=== PATIENT | female | born 1960 | race Caucasian/White ===

== ENCOUNTER 2023-04-11 08:51 | Outpatient (OUT) | payer OTHER, SELFPAY ==
--- NOTE | 2023-04-11 09:05 | MM_ITS ---
Patient Name: KATHY PORTER MR#: [id number] : 1960 Exam Date: 04/11/2023 Ordering Doctor: DR Peter Arnett . RADIOLOGY REPORT PROCEDURE: MM TOMOSYNTHESIS SCREENING BI COMPARISON: MG MAMM SHUKRI DIAG FU, 10/01/2017. MG MAMM SCREEN SHUKRI W CAD, 09/21/2017. INDICATIONS: screening Calculator Name NCI Breast Cancer Risk Assessment Tool 5 Year Breast Cancer Risk 2.20% Lifetime Breast Cancer Risk 10.90% Personal Breast Cancer No Personal Ovarian Cancer No Treatments None Family Cancers Aunt-maternal with breast cancer at age ~48. LOCATION: [facility] BREAST COMPOSITION: Heterogeneously dense,which may obscure small masses. FINDINGS: DIAGNOSTIC CATEGORY 2--BENIGN FINDING: RIGHT BREAST: No significant suspicious finding. Scattered benign-appearing calcifications are present. No significant change has occurred. LEFT BREAST: No significant suspicious finding. Scattered benign-appearing calcifications are present. No significant change has occurred. RECOMMENDATIONS: ROUTINE MAMMOGRAM AND CLINICAL EVALUATION IN 12 MONTHS. PLEASE NOTE: A NORMAL MAMMOGRAM DOES NOT EXCLUDE THE POSSIBILITY OF BREAST CANCER. A CLINICALLY SUSPICIOUS PALPABLE LUMP SHOULD BE BIOPSIED. Dictated by: Kev Aquino M.D. on 04/11/2023 at 15:36 Approved by: Kev Aquino M.D. on 04/11/2023 at 15:39
[2023-04-11 09:24] LABS: Estimated Average Glucose 108 mg/dL; Glycohemoglobin A1C 5.4 % (4.5-6.2)
[2023-04-11 09:42] LABS: Basophils Absolute Auto 0.1 10^3/uL (0.0-0.1); Basophils Percent Auto 0.9 % (0.2-2.0); Eosinophils Absolute Auto 0.2 10^3/uL (0.0-0.7); Eosinophils Percent Auto 1.7 % (0.9-7.0); Hematocrit 38.6 % (36.0-48.0); Hemoglobin 12.5 g/dL (12.0-16.0); Immature Granulocytes Abs Auto 0.03 10^3/uL (0.00-0.03); Immature Granulocytes Pct Auto 0.3 % (0.0-0.5); Lymphocytes Absolute Auto 2.1 10^3/uL (1.2-3.8); Mean Corpuscular HGB Conc 32.4 g/dL (29.9-35.2); Mean Corpuscular Hemoglobin 29.2 pg (26.7-34.0); Mean Corpuscular Volume 90.2 fL (81.0-99.0); Mean Platelet Volume 11.2 fL (9.5-13.5); Monocytes Absolute Auto 0.5 10^3/uL (0.3-0.8); Monocytes Percent Auto 5.5 % (1.7-12.0); Neutrophils Absolute Auto 6.6 10^3/uL (1.4-6.5); Neutrophils Percent Auto 69.6 % (43.0-75.0); Platelet Count 270 10^3/uL (150-450); Red Blood Count 4.28 10^6/uL (4.20-5.40); Red Cell Distribution Width 14.3 % (11.0-15.0); White Blood Count 9.5 10^3/uL (4.0-11.0)
[2023-04-11 10:07] LABS: Alanine Aminotransferase 17 U/L (14-59); Albumin Globulin Ratio 0.9; Albumin Level 3.4 g/dL (3.4-5.0); Alkaline Phosphatase 74 U/L (46-116); Anion Gap 11.1; Aspartate Amino Transferase 13 U/L (15-37); BUN Creatinine Ratio 9.6; Bilirubin Total 0.7 mg/dL (0.2-1.0); Calcium 9.3 mg/dL (8.5-10.1); Carbon Dioxide 29.8 mmol/L (21.0-32.0); Chloride 103 mmol/L (98-107); Chol HDL Ratio 3.5; Cholesterol 184 mg/dL (<=200); Estimated GFR (African America 33 (>=60); Estimated GFR (Non-African Ame 27 (>=60); Free T3 2.36 pg/mL (2.18-3.98); Globulin 3.7 g/dL; Glucose 117 mg/dL (74-106); HDL Cholesterol 53 mg/dL (40-60); Potassium 3.9 mmol/L (3.5-5.1); Sodium 140 mmol/L (136-145); Thyroid Stimulating Hormone 4.496 uIU/mL (0.358-3.740); Total Protein 7.1 g/dL (6.4-8.2); Triglycerides 120 mg/dL (<=150)
== END 2023-04-11 08:52 | disposition home or self-care (01) ==
LOC: MAMMO 08:51
PROVIDERS: PCP Family Medicine; Visit Provider Family Medicine
DX: Z00.00 Encounter for general adult medical examination without abnormal findings (principal); E78.5 Hyperlipidemia, unspecified; R73.09 Other abnormal glucose; Z12.12 Encounter for screening for malignant neoplasm of rectum; D64.9 Anemia, unspecified; E55.9 Vitamin D deficiency, unspecified; Z80.3 Family history of malignant neoplasm of breast
CPT/HCPCS: 36415; 77063; 77067; 80053; 80061; 82306; 83036; 83540; 84436; 84443; 84481; 85025

== ENCOUNTER 2023-05-02 10:05 | Outpatient (OUT) | payer OTHER, SELFPAY ==
--- OUTSIDE RECORDS SUMMARY | 2023-05-02 10:28 | XMS_ITS | CCD ---
Author Name Unknown Address [address] [facility] [address] [place] [address] Organization [facility] Care Team Providers Care Data Power Consultant Name Role Phone Vicky Arnett Primary Care Provider DO Justin Francisco Emergency Provider MD Vicky Arnett Primary Care Provider [phone] MD Henry Burnett Admit Provider [phone] MD Henry Burnett Attending Provider MD Graham Helm Other Provider DR VICKY ARNETT Admitting Unavailable DR VICKY ARNETT Attending Unavailable DR VICKY ARNETT Primary Care Unavailable DR VICKY ARNETT Consulting Unavailable GEHLOT, UPENDER Admitting Unavailable GEHLOT, UPENDER Attending Unavailable DR VICKY ARNETT Primary Care Unavailable GEHLOT, UPENDER Consulting Unavailable GEHLOT, UPENDER Admitting Unavailable GEHLOT, UPENDER Attending Unavailable DR VICKY ARNETT Primary Care Unavailable GEHLOT, UPENDER Consulting Unavailable DR VICKY ARNETT Admitting Unavailable DR VICKY ARNETT Attending Unavailable DR VICKY ARNETT Primary Care Unavailable DR VICKY ARNETT Consulting Unavailable DR DANII CARTER V Consulting Unavailable Vicky Arnett MD Primary Care Provider Vicky Arnett Primary Care Unavailable Henry Burnett Attending Unavailable Henry Burnett Admitting Unavailable Graham Helm Consulting Unavailable GEHLOT, UPENDER Attending Unavailable VICKY ARNETT Primary Care Unavailable GEHLOT, UPENDER Attending Unavailable VICKY ARNETT Primary Care Unavailable GEHLOT, UPENDER Attending Unavailable VICKY ARNETT Primary Care Unavailable GEHLOT, UPENDER Attending Unavailable VICKY ARNETT Primary Care Unavailable VICKY ARNETT Primary Care Unavailable BURAKNELLIE Attending Unavailable ESVIN, SCOTT Attending Unavailable VICKY ARNETT Primary Care Unavailable VICKY ARNETT Primary Care Unavailable ESVIN UPENDER Attending Unavailable Allergies Allergy Classification Reported Allergen(s) Allergy Type Date of Onset Reaction(s) Facility Sulfonamides (antibiotic) (3 sources) Sulfonamides (Antibiotic) Drug Allergy 2 Rash, Swelling [facility] (16 sources) Sulfonamides (Antibiotic); Translations: [Sulfa (Sulfonamide Antibiotics)] Propensity to adverse reactions to drug 2 Rash, Swelling [facility] (1 source) Sulfonamides (Antibiotic) Drug allergy (disorder) 3 [facility] Repository Medications Current Medications Medication Drug Class(es) Dates Sig (Normalized) Sig (Original) amLODIPine 10 mg oral tablet (17 sources) Dihydropyridine Calcium Channel Dimple Start: 03-21-2020 take 1 tablet by mouth once daily amLODIPine (NORVASC) 10 MG tablet Take 1 (one) tablet (10 mg total) by mouth nightly . 0 03/21/2020 Active cefuroxime 250 mg oral tablet (1 source) Cephalosporin Antibacterial Start: 01-05-2022 take 250 mg by mouth twice daily Cefuroxime Axetil Active 250 MG PO Twice daily 01 04January 05, 2022 12:00am cholecalciferol 0.025 mg oral capsule (10 sources) Vitamin D Start: 01-03-2022 End: 01-03-2022 take 1 capsule by mouth once daily Cholecalciferol (Vitamin D3) (Vitamin D3) 25 mcg (1,000 unit) Capsule Active 25 MCG PO Daily January 03, 2022 12:00am Start: 03-23-2021 cholecalcifero l, vitamin D3, 50 mcg (2,000 unit) cap doxazosin 2 mg oral tablet (17 sources) alpha-Adrenergic Dimple Start: 02-08-2020 take 1 tablet by mouth twice daily doxazosin (CARDURA) 2 MG tablet Take 1 (one) tablet (2 mg total) by mouth 2 (two) times a day . 0 02/08/2020 Active eluxadoline 100 mg oral tablet (17 sources) mu-Opioid Receptor Agonist Start: 01-03-2022 take 1 tablet by mouth at mealtime Eluxadoline (Viberzi) 100 mg Tablet Active 100 MG PO Bedtime January 03, 2022 12:00am must administer with a meal/food hydrALAZINE hydrochloride 25 mg oral tablet (1 source) Arteriolar Vasodilator Start: 01-05-2022 take 25 mg by mouth three times daily Hydralazine Active 25 MG PO Three times daily 90 30 January 05, 2022 12:00am irbesartan 300 mg oral tablet (17 sources) Angiotensin 2 Receptor Dimple Start: 02-05-2020 take 1 tablet by mouth once daily irbesartan (AVAPRO) 300 MG tablet Take 1 (one) tablet (300 mg total) by mouth daily . 0 02/05/2020 Active metFORMIN hydrochloride 1000 mg oral tablet (17 sources) Biguanide Start: 01-26-2016 take 1 tablet by mouth twice daily at mealtime metFORMIN (GLUCOPHAGE) 1000 MG tablet Take 1 (one) tablet (1,000 mg total) by mouth 2 (two) times a day with meals . 0 01/26/2016 Active metoprolol tartrate 100 mg oral tablet (17 sources) beta-Adrenergic Dimple Start: 01-03-2022 take 100 mg by mouth every twelve hours Metoprolol Tartrate Active 100 MG PO Q12H January 03, 2022 12:00am Start: 02-06-2020 take [address] by [address]ne th twice daily metoprolol tartrate (LOPRESSOR) 100 MG tablet Take 1 (one) tablet (100 mg total) by mouth 2 (two) times a day . 0 02/06/2020 Active OLANZapine 15 mg oral tablet (8 sources) Atypical Antipsychotic Start: 05-30-2022 take 1 tablet by mouth once daily OLANZapine (ZYPREXA) 15 MG tablet Take 1 (one) tablet (15 mg total) by mouth nightly . 90 tablet 3 05/30/2022 Active Start: 02-28-2022 End: 06-09-2022 take 1 tablet by mouth once daily OLANZapine (ZYPREXA) 10 MG tablet Take 1 (one) tablet (10 mg total) by mouth nightly . 30 tablet 0 05/10/2022 05/30/2022 Discontinued (Reorder (Suppress CancelRx Message to Pharmacy)) Start: 02-02-2022 End: 02-28-2022 take 1 tablet by mouth once daily OLANZapine (ZYPREXA) 5 MG tablet Take 1 (one) tablet (5 mg total) by mouth nightly . 30 tablet 0 02/02/2022 02/28/2022 Discontinued (Reorder (Suppress CancelRx Message to Pharmacy)) oxybutynin chloride 5 mg oral tablet (17 sources) Cholinergic Muscarinic Antagonist Start: 03-16-2020 End: 01-05-2022 take 1 tablet by mouth three times daily oxybutynin (DITROPAN) 5 MG tablet Take 1 (one) tablet (5 mg total) by mouth 3 (three) times a day . 0 03/16/2020 Active pantoprazole 40 mg delayed release oral tablet (17 sources) Proton Pump Inhibitor Start: 01-26-2016 take 1 tablet by mouth once daily pantoprazole (PROTONIX) 40 MG tablet Take 1 (one) tablet (40 mg total) by mouth once daily . 0 01/26/2016 Active simvastatin 10 mg oral tablet (17 sources) HMG-CoA Reductase Inhibitor Start: 01-25-2020 take 1 tablet by mouth once daily simvastatin (ZOCOR) 10 MG tablet Take 1 (one) tablet (10 mg total) by mouth nightly . 0 01/25/2020 Active SUMAtriptan 100 mg oral tablet (9 sources) Serotonin-1b and Serotonin-1d Receptor Agonist Start: 11-25-2020 SUMAtriptan (IMITREX) 100 MG tablet PRN per . 0 11/25/2020 Active Start: 11-25-2020 SUMAtriptan (I MITREX) 100 MG tablet divalproex sodium 500 mg delayed release oral tablet (3 sources) Mood Stabilizer, Anti-epileptic Agent Start: 01-03-2022 take 1 tablet by mouth once daily Divalproex (Depakote) 500 mg Tablet,Delayed Release (Dr/Ec) Active 500 MG PO Daily before supper January 03, 2022 12:00am Start: 10-14-2021 take 1 tablet by wayne th once daily divalproex (DEPAKOTE ER) 500 MG 24 hr tablet Take 1 (one) tablet (500 mg total) by mouth daily . 90 tablet 0 10/14/2021 Active Completed/Discontinued Medications Medication Drug Class(es) Dates Sig (Normalized) Sig (Original) 24 hr buPROPion hydrochloride 300 mg extended release oral tablet (20 sources) Aminoketone Start: 01-03-2022 take 150 mg by mouth once daily after lunch Bupropion Hcl Active 150 MG PO Daily after lunch January 03, 2022 12:00am Start: 01-03-2021 End: 06-28-2022 take 1 tablet by mouth once daily in the morning buPROPion (WELLBUTRIN XL) 300 MG 24 hr tablet Take 1 (one) tablet (300 mg total) by mouth every morning . 90 tablet 0 03/30/2022 05/30/2022 Discontinued (Reorder (Suppress CancelRx Message to Pharmacy)) Start: 01-03-2021 End: 01-12-2022 take 1 tablet by mouth once daily buPROPion (WELLBUTRIN XL) 150 MG 24 hr tablet Take 1 (one) tablet (150 mg total) by mouth daily . 90 tablet 0 07/19/2021 10/14/2021 Discontinued (Reorder) Start: 04-06-2020 End: 12-23-2020 take 1 tablet by mouth once daily buPROPion (WELLBUTRIN XL) 150 MG 24 hr tablet Take 1 (one) tablet (150 mg total) by mouth daily . 90 tablet 0 09/24/2020 12/23/2020 Active Start: 04-06-2020 End: 12-23-2020 take 1 tablet by mouth once daily in the morning buPROPion (WELLBUTRIN XL) 300 MG 24 hr tablet Take 1 (one) tablet (300 mg total) by mouth every morning . 90 tablet 0 09/24/2020 12/23/2020 Active End: 04-06-2020 take 1 tablet by mouth once daily buPROPion (Wellbutrin SR) 150 MG 12 hr tablet Take 150 mg by mouth daily in the afternoon . 0 04/06/2020 Discontinued (Error) clonazePAM 0.5 mg oral tablet (20 sources) Benzodiazepine Start: 01-09-2022 End: 08-28-2022 take 1 tablet by mouth three times daily as needed for anxiety clonazePAM (KLONOPIN) 0.5 MG tablet Indications: Insomnia due to mental disorder , VICKIE (generalized anxiety disorder) Take 1 (one) tablet (0.5 mg total) by mouth 3 (three) times a day as needed for anxiety . 90 tablet 0 03/30/2022 05/30/2022 Discontinued (Reorder (Suppress CancelRx Message to Pharmacy)) Start: 01-03-2022 take 0.5 mg by mouth once daily 30 minutes before bedtime Clonazepam Active 0.5 MG PO Daily after lunch January 03, 2022 12:00am administer 30 minutes before bedtime Start: 01-03-2022 take 0.25 mg by mout h at bedtime Clonazepam Active 0.25 MG PO Bedtime January 03, 2022 12:00am Start: 10-14-2021 End: 01-12-2022 take 1 tablet by mouth twice daily as needed for anxiety clonazePAM (KLONOPIN) 0.5 MG tablet Indications: Insomnia due to mental disorder , VICKIE (generalized anxiety disorder) Take 1 (one) tablet (0.5 mg total) by mouth 2 (two) times a day as needed for anxiety . 180 tablet 0 10/14/2021 01/12/2022 Active Start: 04-18-2021 End: 10-17-2021 take 1 tablet by mouth three times daily as needed for anxiety clonazePAM (KLONOPIN) 0.5 MG tablet Indications: Insomnia due to mental disorder , VICKIE (generalized anxiety disorder) Take 1 (one) tablet (0.5 mg total) by mouth 3 (three) times a day NEEDED FOR ANXIETY . 270 tablet 0 07/19/2021 10/14/2021 Discontinued (Reorder) Start: 01-13-2020 End: 03-07-2021 take 1 tablet by mouth three times daily as needed for anxiety clonazePAM (KLONOPIN) 0.5 MG tablet Indications: Insomnia due to mental disorder , VICKIE (generalized anxiety disorder) Take 1 (one) tablet (0.5 mg total) by mouth 3 (three) times a day NEEDED FOR ANXIETY . 270 tablet 0 12/07/2020 Active risperiDONE 3 mg oral tablet (16 sources) Atypical Antipsychotic Start: 04-18-2021 End: 10-14-2021 take 1 tablet by mouth once daily at dinner risperiDONE (RISPERDAL) 3 MG tablet Take 1 (one) tablet (3 mg total) by mouth daily with dinner . 90 tablet 1 07/19/2021 10/14/2021 Discontinued Start: 01-03-2021 take 1 tablet by wayne th once daily at dinner risperiDONE (RISPERDAL) 3 MG tablet Take 1 (one) tablet (3 mg total) by mouth daily with dinner . 90 tablet 1 01/03/2021 Active Start: 03-01-2020 End: 09-24-2020 take 1 tablet by mouth once daily at dinner risperiDONE (RISPERDAL) 3 MG tablet Take 1 (one) tablet (3 mg total) by mouth daily with dinner . 90 tablet 1 09/24/2020 Active traZODone hydrochloride 100 mg oral tablet (20 sources) Serotonin Reuptake Inhibitor Start: 01-09-2022 End: 02-28-2022 traZODone (DESYREL) 100 MG tablet 1/2 to 1 tab daily hs sleep . 90 tablet 0 01/09/2022 02/28/2022 Discontinued Start: 01-03-2022 take 50 mg by mouth once daily at bedtime Trazodone Active 50 MG PO Daily at bedtime January 03, 2022 12:00am Start: 04-18-2021 End: 10-14-2021 traZODone (DESYREL) 100 MG t ablet 1/2 to 1 tab daily hs sleep . 90 tablet 0 10/14/2021 Active Start: 01-03-2021 traZODone (BENNETT YREL) 100 MG tablet 1/2 to 1 tab daily hs sleep . 90 tablet 0 01/03/2021 Active Start: 04-06-2020 End: 09-24-2020 traZODone (DESYREL) 100 MG t ablet 1/2 to 1 tab daily hs sleep . 90 tablet 0 09/24/2020 Active Start: 03-16-2020 End: 04-06-2020 take 0.5 tablet by mouth at bedtime traZODone (DESYREL) 100 MG tablet Take 100 mg by mouth at bedtime SHE TAKES 1/2 TABLET AT BEDTIME . 0 03/16/2020 04/06/2020 Discontinued (Reorder) zolpidem tartrate 5 mg oral tablet (19 sources) gamma-Aminobutyric Acid-ergic Agonist Start: 01-09-2022 End: 02-28-2022 take 1 tablet by mouth once daily as needed zolpidem (AMBIEN) 5 MG tablet Indications: Insomnia due to mental disorder Take 1 (one) tablet (5 mg total) by mouth nightly as needed . 90 tablet 0 01/09/2022 02/28/2022 Discontinued Start: 10-14-2021 take 1 tablet by wayne once daily as needed zolpidem (AMBIEN) 5 MG tablet Indications: Insomnia due to mental disorder Take 1 (one) tablet (5 mg total) by mouth nightly as needed . 90 tablet 0 10/14/2021 Active Start: 01-02-2020 End: 10-14-2021 take 1 tablet by mouth once daily as needed zolpidem (AMBIEN) 10 mg tablet Indications: Insomnia due to mental disorder Take 1 (one) tablet (10 mg total) by mouth nightly as needed . 90 tablet 0 07/19/2021 10/14/2021 Discontinued (Reorder) Problems Active Problems Problem Classification Problem Date Documented Da te Episodic/Chronic Anxiety disorders (20 sources) Generalized anxiety disorder; Translations: [Generalized anxiety disorder] Onset: 04-06-2020 04-06-2020 Chronic Hypertension with complications and secondary hypertension (3 sources) Hypertensive urgency ; Translations: [Hypertensive urgency] Onset: 01-03-2022 01-03-2022 Chronic Miscellaneous mental health disorders (20 sources) Insomnia disorder related to another mental disorder; Translations: [Insomnia due to other mental disorder] Onset: 04-06-2020 04-06-2020 Chronic Mood disorders (20 sources) Mild depressed bipolar I disorder; Translations: [Bipolar disorder, current episode depressed, mild] Onset: 04-06-2020 04-06-2020 Chronic Other hereditary and degenerative nervous system conditions (2 sources) Coarse tremor; Translations: [Other specified forms of tremor] 01-03-2022 Chronic Other hereditary and degenerative nervous system conditions (2 sources) Other specified forms of tremor; Translations: [Abnormal involuntary movements] 01-03-2022 Chronic Other nervous system disorders (2 sources) Disorder of brain; Translations: [Encephalopathy, unspecified] 01-03-2022 Chronic Other nervous system disorders (2 sources) Encephalopathy, unspecified; Translations: [Encephalopathy, unspecified] 01-03-2022 Chronic Residual codes; unclassified (2 sources) Altered mental status; Translations: [Altered mental status, unspecified] 01-03-2022 Episodic Residual codes; unclassified (2 sources) Altered mental status, unspecified; Translations: [Altered mental status] 01-03-2022 Episodic Spondylosis; intervertebral disc disorders; other back problems (1 source) Radiculopathy, lumbar region; Translations: [RADICULOPATHY LUMBAR REGION] Onset: 01-20-2022 Episodic Unclassified (1 source) Encephalopathy, unspecified; Translations: [Encephalopathy, unspecified] Onset: 01-03-2022 Past or Other Problems Problem Classification Problem Date Documented Da te Episodic/Chronic Acute and unspecified renal failure (3 sources) Injury of kidney; Translations: [Acute kidney failure, unspecified] Onset: 01-03-2022 01-03-2022 Episodic Urinary tract infections (3 sources) Urinary tract infectious disease; Translations: [Urinary tract infection, site not specified] Onset: 01-03-2022 01-03-2022 Episodic Results Test Name Value Interpretation Reference Range Facility XR LSPINE MIN 4 VIEWSon 01-01 XR LSPINE MIN 4 VIEWS EXAMINATION: XR LSPINE MIN 4 VIEWS HISTORY: Lumbar radiculopathy COMPARISON: No relevant comparison available. FINDINGS: BONES: 10% anterior superior wedge compression of L1. Mild degenerative spondylosis. Moderate to severe facet osteoarthropathy. DISC SPACES: Disc space narrowing L5-S1 PARASPINOUS: Negative. No paraspinous abnormality is seen. OTHER: Negative. IMPRESSION: Degenerative changes and levocurvature Electronically authenticated by: DANII CARTER Date: 2022-01-20 07:20 Normal [facility] DEPAKENE/VALPROICon 01-20-20 22 DEPAKENE 79.2 ug/ml Normal 50.0-100.0 [facility] Comment on above: Performed By: #### V ALP #### [facility] [address] [place] [address] Dr. Julio Goddard Albumin [Mass/volume] in Ser um or PlasmaOrdered By: Henry Burnett on 01-05-2022 Albumin [Mass/Vol] 3.0 g/dL 3.2-5.5 [facility] Basophils Auto (Bld) [#/Vol] Ordered By: Henry Burnett on 01-05-2022 Basophils (Bld) [#/Vol] 0.0 10*3/uL 0.0-0.2 [facility] Basophils/100 WBC Auto (Bld) Ordered By: Henry Burnett on 01-05-2022 Basophils/100 WBC (Bld) 0.6 % . F [facility] Blood hemoglobin measurement (mass/volume)Ordered By: Henry De Los Santosomar on 01-05-2022 Hemoglobin (Bld) [Mass/Vol] 12.8 g/dL 11.8-15.4 [facility] Blood leukocytes automated c ount (number/volume)Ordered By: Henry De Los Santosomar on 01-05-2022 WBC (Bld) [#/Vol] 5.3 10*3/uL 4.5-11.0 [facility] Complete Blood Count Auto Di ffon 01-05-2022 Basophils (Bld) [#/Vol] 0.0 10*3/uL Normal 0.0-0.2 [facility] Comment on above: Result Comment: PERF ORMED BY: [place] [address] PATHOLOGIST STERILE PROCESSING TECHNICIAN ANTONY ELIAS M.D. Performed By: #### C BC, CMP, PHOS, MG, LIPID #### [facility] [address] [place] [address] [place] Basophils/100 WBC (Bld) 0.6 % Normal . [facility] Comment on above: Performed By: #### C BC, CMP, PHOS, MG, LIPID #### [facility] [address] [place] [address] [place] Eosinophils (Bld) [#/Vol] 0.2 10*3/uL Normal 0.0-0.45 [facility] Comment on above: Performed By: #### C BC, CMP, PHOS, MG, LIPID #### [facility] [address] [place] [address] [place] Eosinophils/100 WBC (Bld) 3.5 % Normal . [facility] Comment on above: Performed By: #### C BC, CMP, PHOS, MG, LIPID #### [facility] [address] [place] [address] [place] Erythrocyte distribution width (RBC) [Ratio] 16.2 % High 11.9-15.3 [facility] Comment on above: Performed By: #### C BC, CMP, PHOS, MG, LIPID #### [facility] [address] Hematocrit (Bld) [Volume fraction] 38.6 % Normal 34.0-46.4 [facility] Comment on above: Performed By: #### C BC, CMP, PHOS, MG, LIPID #### [facility] [address] Hemoglobin (Bld) [Mass/Vol] 12.8 g/dL Normal 11.8-15.4 [facility] Comment on above: Performed By: #### C BC, CMP, PHOS, MG, LIPID #### [address] Lymphocytes (Bld) [#/Vol] 1.7 10*3/uL Normal 1.00-4.8 [facility] Comment on above: Performed By: #### C BC, CMP, PHOS, MG, LIPID #### [address] Lymphocytes/100 WBC (Bld) 33.1 % Normal . [facility] Comment on above: Performed By: #### C BC, CMP, PHOS, MG, LIPID #### [address] MCH (RBC) [Entitic mass] 30.2 pg Normal 24.7-34.3 [facility] Comment on above: Performed By: #### C BC, CMP, PHOS, MG, LIPID #### [address] MCV (RBC) [Entitic vol] 90.6 fL Normal 80-100 [facility] Comment on above: Performed By: #### C BC, CMP, PHOS, MG, LIPID #### [address] Mean Corpuscular HGB Conc 33.3 g/dL Normal 32.0-35.0 [facility] Comment on above: Performed By: #### C BC, CMP, PHOS, MG, LIPID #### [address] Monocytes (Bld) [#/Vol] 0.7 10*3/uL Normal 0.0-0.8 [facility] Comment on above: Performed By: #### C BC, CMP, PHOS, MG, LIPID #### [address] Monocytes/100 WBC (Bld) 12.5 % Normal . [facility] Comment on above: Performed By: #### C BC, CMP, PHOS, MG, LIPID #### [address] Neutrophils (Bld) [#/Vol] 2.6 10*3/uL Normal 1.8-7.7 [facility] Comment on above: Performed By: #### C BC, CMP, PHOS, MG, LIPID #### [address] Neutrophils/100 WBC (Bld) 50.3 % Normal . [facility] Comment on above: Performed By: #### C BC, CMP, PHOS, MG, LIPID #### [address] Nucleated RBC/100 WBC (Bld) [Ratio] 0.1 % Normal 0-0.5 [facility] Comment on above: Performed By: #### C BC, CMP, PHOS, MG, LIPID #### [address] Platelet mean volume (Bld) [Entitic vol] 8.9 fL Normal 6.3-10.7 [facility] Comment on above: Performed By: #### C BC, CMP, PHOS, MG, LIPID #### [address] Platelets (Bld) [#/Vol] 186 10*3/uL Normal 150-450 [facility] Comment on above: Performed By: #### C BC, CMP, PHOS, MG, LIPID #### [address] RBC (Bld) [#/Vol] 4.25 10*6/uL Normal 3.60-5.00 [facility] Comment on above: Performed By: #### C BC, CMP, PHOS, MG, LIPID #### [address] WBC (Bld) [#/Vol] 5.3 10*3/uL Normal 4.5-11.0 [facility] Comment on above: Performed By: #### C BC, CMP, PHOS, MG, LIPID #### [address] Comprehensive Metabolic Pane clarice 01-05-2022 Albumin [Mass/Vol] 3.0 g/dL Low 3.2-5.5 [facility] Comment on above: Performed By: #### C BC, CMP, PHOS, MG, LIPID #### [address] Albumin/Globulin [Mass ratio] 1.2 {ratio} Normal [facility] Comment on above: Performed By: #### C BC, CMP, PHOS, MG, LIPID #### [address] ALP [Catalytic activity/Vol] 33 U/L Normal 32-92 [facility] Comment on above: Performed By: #### C BC, CMP, PHOS, MG, LIPID #### [facility] [address] [place] [address] ALT [Catalytic activity/Vol] 11 U/L Normal 10-60 [facility] Comment on above: Performed By: #### C BC, CMP, PHOS, MG, LIPID #### [address] Anion gap [Moles/Vol] 11.6 mmol/L Normal 6.0-15.0 [facility] Comment on above: Performed By: #### C BC, CMP, PHOS, MG, LIPID #### [address] AST [Catalytic activity/Vol] 13 U/L Normal 10-42 [facility] Comment on above: Performed By: #### C BC, CMP, PHOS, MG, LIPID #### [facility] [address] Bilirubin [Mass/Vol] 0.4 mg/dL Normal 0.3-1.2 [facility] Comment on above: Performed By: #### C BC, CMP, PHOS, MG, LIPID #### [address] Calcium [Mass/Vol] 9.1 mg/dL Normal 8.2-10.2 [facility] Comment on above: Performed By: #### C BC, CMP, PHOS, MG, LIPID #### [address] Chloride [Moles/Vol] 105 mmol/L Normal 95-114 [facility] Comment on above: Performed By: #### C BC, CMP, PHOS, MG, LIPID #### [address] CO2 [Moles/Vol] 25.2 mmol/L Normal 22.0-30.0 [facility] Comment on above: Performed By: #### C BC, CMP, PHOS, MG, LIPID #### [address] Creatinine [Mass/Vol] 1.14 mg/dL High 0.44-1.03 [facility] Comment on above: Performed By: #### C BC, CMP, PHOS, MG, LIPID #### [place] [address] [place] Creatinine Clr Calc Pharmacy 51.[address] [facility] Comment on above: Result Comment: PERF ORMED BY: [place] [address] PATHOLOGIST STERILE PROCESSING TECHNICIAN ANTONY ELIAS M.D. Performed By: #### C BC, CMP, PHOS, MG, LIPID #### [address] [address] [place] Estimated GFR ( [place] 59 [facility] Comment on above: Result Comment: GFR estimated reference range: According to KDOQI guidelines, <60 ml/min/1.73m2 is sufficient to diagnose a patient with chronic kidney disease. Performed By: #### C BC, CMP, PHOS, MG, LIPID #### [facility] [address] Estimated GFR (Non- Am 49 [facility] Comment on above: Performed By: #### C BC, CMP, PHOS, MG, LIPID #### [facility] [address] Globulin (S) [Mass/Vol] 2.5 g/dL Normal [facility] Comment on above: Performed By: #### C BC, CMP, PHOS, MG, LIPID #### [facility] [address] Glucose [Mass/Vol] 96 mg/dL Normal 70-100 [facility] Comment on above: Result Comment: [facility] Glucose Reference Range is dependent on time and content of last meal. Glucose of more than 200 mg/dL in a nonstressed, ambulatory subject supports the diagnosis of Diabetes Mellitus. ADA recommended reference range Performed By: #### C BC, CMP, PHOS, MG, LIPID #### [facility] [address] Potassium [Moles/Vol] 3.8 mmol/L Normal 3.5-5.1 [facility] Comment on above: Performed By: #### C BC, CMP, PHOS, MG, LIPID #### [facility] [address] Protein [Mass/Vol] 5.5 g/dL Low 6.1-7.9 [facility] Comment on above: Performed By: #### C BC, CMP, PHOS, MG, LIPID #### [facility] [address] Sodium [Moles/Vol] 138 mmol/L Normal 136-146 [facility] Comment on above: Performed By: #### C BC, CMP, PHOS, MG, LIPID #### [facility] [address] [place] [address] [place] Urea nitrogen [Mass/Vol] 11 mg/dL Normal 9-23 [facility] Comment on above: Performed By: #### C BC, CMP, PHOS, MG, LIPID #### [facility] [address] [place] [id number] [facility] Creatinine and Glomerular fi ltration rate.predicted panel (S/P/Bld)Ordered By: Obsonjadanaga De Los Santosomar on 01-05-2022 Creatinine [Mass/Vol] 1.14 mg/dL 0.44-1.03 [facility] Eosinophils Auto (Bld) [#/Vo l]Ordered By: Obsonjadanaga De Los Santosomar on 01-05-2022 Eosinophils (Bld) [#/Vol] 0.2 10*3/uL 0.0-0.45 [facility] Eosinophils/100 WBC Auto (Bl d)Ordered By: Obsonjadanaga Lemonr on 01-05-2022 Eosinophils/100 WBC (Bld) 3.5 % . [facility] Erythrocyte distribution wid th Auto (RBC) [Ratio]Ordered By: Henry Lemonr on 01-05-2022 Erythrocyte distribution width (RBC) [Ratio] 16.2 % 11.9-15.3 [facility] Estimated glomerular filtrat ion rate (GFR) non- AmericanOrdered By: Felicitadanaga Lemonr on 01-05-2022 GFR/1.73 sq M.predicted among non-blacks MDRD (S/P/Bld) [Vol rate/Area] 49 mL/Min [facility] Globulin Calc (S) [Mass/Vol] Ordered By: Obdanny De Los Santosomar on 01-05-2022 Globulin (S) [Mass/Vol] 2.5 g/dL F [facility] Hematocrit Auto (Bld) [Volum e fraction]Ordered By: Henry Lemonr on 01-05-2022 Hematocrit (Bld) [Volume fraction] 38.6 % 34.0-46.4 [facility] Laboratory - Hematology and Cell countsOrdered By: Henry Burnett on 01-05-2022 Nucleated RBC/100 WBC (Bld) [Ratio] 0.1 % 0-0.5 [facility] Lymphocytes Auto (Bld) [#/Vo l]Ordered By: Obaydah Daromar on 01-05-2022 Lymphocytes (Bld) [#/Vol] 1.7 10*3/uL 1.00-4.8 [facility] Lymphocytes/100 WBC Auto (Bl d)Ordered By: Obaydah Daromar on 01-05-2022 Lymphocytes/100 WBC (Bld) 33.1 % . [facility] MCH Auto (RBC) [Entitic mass ]Ordered By: Obsonjadanaga De Los Santosomar on 01-05-2022 MCH (RBC) [Entitic mass] 30.2 pg 24.7-34.3 [facility] MCHC Auto (RBC) [Mass/Vol]Or dered By: Obaydah Daromar on 01-05-2022 MCHC (RBC) [Mass/Vol] 33.3 g/dL 32.0-35.0 Fir [facility] MCV Auto (RBC) [Entitic vol] Ordered By: Obaydah Daromar on 01-05-2022 MCV (RBC) [Entitic vol] 90.6 fL 80-100 F [facility] Monocytes Auto (Bld) [#/Vol] Ordered By: Obaydah Daromar on 01-05-2022 Monocytes (Bld) [#/Vol] 0.7 10*3/uL 0.0-0.8 [facility] Monocytes/100 WBC Auto (Bld) Ordered By: Obaydah Daromar on 01-05-2022 Monocytes/100 WBC (Bld) 12.5 % . F [facility] Neutrophils Auto (Bld) [#/Vo l]Ordered By: Obaydah Daromar on 01-05-2022 Neutrophils (Bld) [#/Vol] 2.6 10*3/uL 1.8-7.7 [facility] Neutrophils/100 WBC Auto (Bl d)Ordered By: Obsonjadah Daromar on 01-05-2022 Neutrophils/100 WBC (Bld) 50.3 % . [facility] No Panel InformationOrdered By: Henry Burnett on 01-05-2022 Estimated GFR () 59 mL/Min [facility] Comment on above: GFR estimated refere nce range: According to KDOQI guidelines, <60 ml/min/1.73m2 is sufficient to diagnose a patient with chronic kidney disease. Pharmacy Creatinine Clearance (Chem 51.99 [facility] Platelet mean volume Auto (B ld) [Entitic vol]Ordered By: Henry Burnett on 01-05-2022 Platelet mean volume (Bld) [Entitic vol] 8.9 fL 6.3-10.7 [facility] Platelets Auto (Bld) [#/Vol] Ordered By: Henry Burnett on 01-05-2022 Platelets (Bld) [#/Vol] 186 10*3/uL 150-450 [facility] Protein [Mass/volume] in Ser um or PlasmaOrdered By: Henry Burnett on 01-05-2022 Protein [Mass/Vol] 5.5 g/dL 6.1-7.9 [facility] RBC Auto (Bld) [#/Vol]Ordere d By: Henry Burnett on 01-05-2022 RBC (Bld) [#/Vol] 4.25 10*6/uL 3.60-5.00 [facility] Serum or plasma alanine angeles otransferase measurement without P-5'-P (enzymatic activiOrdered By: Henry Burnett on 01-05-2022 ALT No additional P-5'-P [Catalytic activity/Vol] 11 U/L 10-60 [facility] Serum or plasma albumin/glob ulin mass ratioOrdered By: Henry Burnett on 01-05-2022 Albumin/Globulin [Mass ratio] 1.2 {ratio} [facility] Serum or plasma alkaline flaquita sphatase measurement (enzymatic activity/volume)Ordered By: Henry Burnett on 01-05-2022 ALP [Catalytic activity/Vol] 33 U/L 32-92 [facility] Serum or plasma anion gap de terminationOrdered By: Henry Burnett on 01-05-2022 Anion gap [Moles/Vol] 11.6 mmol/L 6.0-15.0 [facility] Serum or plasma aspartate am inotransferase measurement (enzymatic activity/volume)Ordered By: Henry Burnett on 01-05-2022 AST [Catalytic activity/Vol] 13 U/L 10-42 [facility] Serum or plasma calcium sarah urement (mass/volume)Ordered By: Henry Burnett on 01-05-2022 Calcium [Mass/Vol] 9.1 mg/dL 8.2-10.2 [facility] Serum or plasma chloride deep surement (moles/volume)Ordered By: Henry Burnett on 01-05-2022 Chloride [Moles/Vol] 105 mmol/L 95-114 [facility] Serum or plasma glucose sarah urement (mass/volume)Ordered By: Henry Burnett on 01-05-2022 Glucose [Mass/Vol] 96 mg/dL 70-100 [facility] Comment on above: ADA recommended refe rence rangeRandom Glucose Reference Range is dependent on time and content of last meal. Glucose of more than 200 mg/dL in a nonstressed, ambulatory subject supports the diagnosis of Diabetes Mellitus. Serum or plasma potassium me asurement (moles/volume)Ordered By: Henry Burnett on 01-05-2022 Potassium [Moles/Vol] 3.8 mmol/L 3.5-5.1 [facility] Serum or plasma sodium measu rement (moles/volume)Ordered By: Henry Burnett on 01-05-2022 Sodium [Moles/Vol] 138 mmol/L 136-146 [facility] Serum or plasma total biliru bin measurement (mass/volume)Ordered By: Henry Burnett on 01-05-2022 Bilirubin [Mass/Vol] 0.4 mg/dL 0.3-1.2 [facility] Serum or plasma total carbon dioxide measurement (moles/volume)Ordered By: Henry Burnett on 01-05-2022 CO2 [Moles/Vol] 25.2 mmol/L 22.0-30.0 [facility] Serum or plasma urea nitroge n measurement (mass/volume)Ordered By: Henry Burnett on 01-05-2022 Urea nitrogen [Mass/Vol] 11 mg/dL 12-23 [facility] Urine culture routineOrdered By: Justin Francisco on 01-05-2022 Bacteria identified Cx Nom (U) Escherichia coli [facility] Cholesterol [Mass/volume] in Serum or PlasmaOrdered By: Henry Burnett on 01-04-2022 Cholesterol [Mass/Vol] 145 mg/dL 140-200 [facility] Comment on above: Chol less than 200 m g/dl low riskChol 201-239 mg/dl borderline riskChol 240 mg/dl and greater high risk Cholesterol in LDL Calc [Mas s/Vol]Ordered By: Henry Burnett on 01-04-2022 Cholesterol in LDL [Mass/Vol] 78 mg/dL 0-100 [facility] Comment on above: LDL ATP III CLASSIFI CATIONLDL less than 100 mg/dL OptimalLDL 100-129 mg/dL Near or above optimalLDL 130-159 mg/dL Borderline highLDL 160-189 mg/dL HighLDL greater than 189 mg/dL Very high Cholesterol in VLDL Calc [Ma ss/Vol]Ordered By: Henry Burnett on 01-04-2022 Cholesterol in VLDL [Mass/Vol] 12 mg/dL [facility] Complete Blood Count Auto Di ffon 01-04-2022 Basophils (Bld) [#/Vol] 0.0 10*3/uL Normal 0.0-0.2 [facility] Comment on above: Result Comment: PERF ORMED BY: [place] [address] PATHOLOGIST STERILE PROCESSING TECHNICIAN ANTONY ELIAS M.D. Performed By: #### C BC, CMP, PHOS, MG, LIPID #### [facility] [address] [place] [address] [place] Basophils/100 WBC (Bld) 0.8 % Normal . [facility] Comment on above: Performed By: #### C BC, CMP, PHOS, MG, LIPID #### [address] Eosinophils (Bld) [#/Vol] 0.2 10*3/uL Normal 0.0-0.45 [facility] Comment on above: Performed By: #### C BC, CMP, PHOS, MG, LIPID #### [address] Eosinophils/100 WBC (Bld) 4.2 % Normal . [facility] Comment on above: Performed By: #### C BC, CMP, PHOS, MG, LIPID #### [address] Erythrocyte distribution width (RBC) [Ratio] 15.8 % High 11.9-15.3 [facility] Comment on above: Performed By: #### C BC, CMP, PHOS, MG, LIPID #### [address] Hematocrit (Bld) [Volume fraction] 37.5 % Normal 34.0-46.4 [facility] Comment on above: Performed By: #### C BC, CMP, PHOS, MG, LIPID #### [address] Hemoglobin (Bld) [Mass/Vol] 12.3 g/dL Normal 11.8-15.4 [facility] Comment on above: Performed By: #### C BC, CMP, PHOS, MG, LIPID #### [address] Lymphocytes (Bld) [#/Vol] 1.6 10*3/uL Normal 1.00-4.8 [facility] Comment on above: Performed By: #### C BC, CMP, PHOS, MG, LIPID #### [address] Lymphocytes/100 WBC (Bld) 31.2 % Normal . [facility] Comment on above: Performed By: #### C BC, CMP, PHOS, MG, LIPID #### [address] MCH (RBC) [Entitic mass] 29.7 pg Normal 24.7-34.3 [facility] Comment on above: Performed By: #### C BC, CMP, PHOS, MG, LIPID #### [address] MCV (RBC) [Entitic vol] 90.5 fL Normal 80-100 F [facility] Comment on above: Performed By: #### C BC, CMP, PHOS, MG, LIPID #### [address] Mean Corpuscular HGB Conc 32.8 g/dL Normal 32.0-35.0 [facility] Comment on above: Performed By: #### C BC, CMP, PHOS, MG, LIPID #### [address] Monocytes (Bld) [#/Vol] 0.7 10*3/uL Normal 0.0-0.8 [facility] Comment on above: Performed By: #### C BC, CMP, PHOS, MG, LIPID #### [address] Monocytes/100 WBC (Bld) 13.1 % Normal . F [facility] Comment on above: Performed By: #### C BC, CMP, PHOS, MG, LIPID #### [address] Neutrophils (Bld) [#/Vol] 2.6 10*3/uL Normal 1.8-7.7 [facility] Comment on above: Performed By: #### C BC, CMP, PHOS, MG, LIPID #### [address] Neutrophils/100 WBC (Bld) 50.7 % Normal . [facility] Comment on above: Performed By: #### C BC, CMP, PHOS, MG, LIPID #### [address] Nucleated RBC/100 WBC (Bld) [Ratio] 0.1 % Normal 0-0.5 [facility] Comment on above: Performed By: #### C BC, CMP, PHOS, MG, LIPID #### [address] Platelet mean volume (Bld) [Entitic vol] 8.5 fL Normal 6.3-10.7 [facility] Comment on above: Performed By: #### C BC, CMP, PHOS, MG, LIPID #### [address] Platelets (Bld) [#/Vol] 190 10*3/uL Normal 150-450 [facility] Comment on above: Performed By: #### C BC, CMP, PHOS, MG, LIPID #### [address] RBC (Bld) [#/Vol] 4.15 10*6/uL Normal 3.60-5.00 [facility] Comment on above: Performed By: #### C BC, CMP, PHOS, MG, LIPID #### [address] WBC (Bld) [#/Vol] 5.1 10*3/uL Normal 4.5-11.0 [facility] Comment on above: Performed By: #### C BC, CMP, PHOS, MG, LIPID #### [address] Comprehensive Metabolic Pane clarice 01-04-2022 Albumin [Mass/Vol] 3.0 g/dL Low 3.2-5.5 [facility] Comment on above: Performed By: #### C BC, CMP, PHOS, MG, LIPID #### [address] Albumin/Globulin [Mass ratio] 1.2 {ratio} Normal [facility] Comment on above: Performed By: #### C BC, CMP, PHOS, MG, LIPID #### [address] ALP [Catalytic activity/Vol] 32 U/L Normal 32-92 [facility] Comment on above: Performed By: #### C BC, CMP, PHOS, MG, LIPID #### [facility] [address] [place] [address] ALT [Catalytic activity/Vol] 12 U/L Normal 10-60 [facility] Comment on above: Performed By: #### C BC, CMP, PHOS, MG, LIPID #### [facility] [address] [place] [address] Anion gap [Moles/Vol] 10.6 mmol/L Normal 6.0-15.0 [facility] Comment on above: Performed By: #### C BC, CMP, PHOS, MG, LIPID #### [address] AST [Catalytic activity/Vol] 15 U/L Normal 10-42 [facility] Comment on above: Performed By: #### C BC, CMP, PHOS, MG, LIPID #### [address] Bilirubin [Mass/Vol] 0.3 mg/dL Normal 0.3-1.2 [facility] Comment on above: Performed By: #### C BC, CMP, PHOS, MG, LIPID #### [address] Calcium [Mass/Vol] 9.0 mg/dL Normal 8.2-10.2 [facility] Comment on above: Performed By: #### C BC, CMP, PHOS, MG, LIPID #### [address] Chloride [Moles/Vol] 103 mmol/L Normal 95-114 [facility] Comment on above: Performed By: #### C BC, CMP, PHOS, MG, LIPID #### [address] CO2 [Moles/Vol] 27.6 mmol/L Normal 22.0-30.0 [facility] Comment on above: Performed By: #### C BC, CMP, PHOS, MG, LIPID #### [address] [address] [place] Creatinine [Mass/Vol] 1.21 mg/dL High 0.44-1.03 [facility] Comment on above: Performed By: #### C BC, CMP, PHOS, MG, LIPID #### [facility] [address] Creatinine Clr Calc Pharmacy 49.01 [facility] Comment on above: Performed By: #### C BC, CMP, PHOS, MG, LIPID #### [facility] [address] Estimated GFR ( [place] 55 [facility] Comment on above: Result Comment: GFR estimated reference range: According to KDOQI guidelines, <60 ml/min/1.73m2 is sufficient to diagnose a patient with chronic kidney disease. Performed By: #### C BC, CMP, PHOS, MG, LIPID #### [address] Estimated GFR (Non- Am 46 [facility] Comment on above: Performed By: #### C BC, CMP, PHOS, MG, LIPID #### [facility] [address] [place] [address] Globulin (S) [Mass/Vol] 2.6 g/dL [facility] Comment on above: Performed By: #### C BC, CMP, PHOS, MG, LIPID #### [address] Glucose [Mass/Vol] 151 mg/dL High 70-100 [facility] Comment on above: Result Comment: [facility] Glucose Reference Range is dependent on time and content of last meal. Glucose of more than 200 mg/dL in a nonstressed, ambulatory subject supports the diagnosis of Diabetes Mellitus. ADA recommended reference range Performed By: #### C BC, CMP, PHOS, MG, LIPID #### [address] Potassium [Moles/Vol] 3.2 mmol/L Low 3.5-5.1 [facility] Comment on above: Performed By: #### C BC, CMP, PHOS, MG, LIPID #### [facility] [address] Protein [Mass/Vol] 5.6 g/dL Low 6.1-7.9 [facility] Comment on above: Performed By: #### C BC, CMP, PHOS, MG, LIPID #### [facility] [address] Sodium [Moles/Vol] 138 mmol/L Normal 136-146 [facility] Comment on above: Performed By: #### C BC, CMP, PHOS, MG, LIPID #### [facility] [address] Urea nitrogen [Mass/Vol] 11 mg/dL Normal 9-23 [facility] Comment on above: Performed By: #### C BC, CMP, PHOS, MG, LIPID #### [facility] [address] Laboratory - Chemistry and C hemistry - challengeOrdered By: Henry Burnett on 01-04-2022 Magnesium [Mass/Vol] 1.6 mg/dL 1.6-2.6 [facility] Lipid Panelon 01-04-2022 Cholesterol [Mass/Vol] 145 mg/dL Normal 140-200 [facility] Comment on above: Result Comment: Chol less than 200 mg/dl low risk Chol 201-239 mg/dl borderline risk Chol 240 mg/dl and greater high risk Performed By: #### C BC, CMP, PHOS, MG, LIPID #### [facility] [address] Cholesterol in HDL [Mass/Vol] 55 mg/dL Normal 35-85 [facility] Comment on above: Result Comment: HDL CHOL ATP-III CLASSIFICATION Cardiovascular Risk HDL > or equal to 60 mg/dL LOW HDL < 40 mg/dL HIGH Performed By: #### C BC, CMP, PHOS, MG, LIPID #### [facility] [address] Cholesterol.total/Choles terol in HDL [Mass ratio] 2.6 {ratio} Normal <5.0 [facility] Comment on above: Result Comment: PERF ORMED BY: [place] [address] PATHOLOGIST STERILE PROCESSING TECHNICIAN ANTONY ELIAS M.D. Performed By: #### C BC, CMP, PHOS, MG, LIPID #### [address] LDL Cholesterol,Calculated 78 mg/dL Normal 0-100 [facility] Comment on above: Result Comment: LDL ATP III CLASSIFICATION LDL less than 100 mg/dL Optimal LDL 100-129 mg/dL Near or above optimal LDL 130-159 mg/dL Borderline high LDL 160-189 mg/dL High LDL greater than 189 mg/dL Very high Performed By: #### C BC, CMP, PHOS, MG, LIPID #### [address] Triglyceride w/Reflex 60 mg/dL Normal 35-149 [facility] Comment on above: Result Comment: TRIG ATP III CLASSIFICATION TRIG less than 150 mg/dL Normal TRIG 150-199 mg/dL Borderline high TRIG 200-500 mg/dL High TRIG greater than 500 mg/dL Very high Standard traceable to the Center for Disease Conrtrol and Prevention (CDC) test method. Performed By: #### C BC, CMP, PHOS, MG, LIPID #### [address] VLDL CHOLESTEROL 12 mg/dL Normal [facility] Comment on above: Performed By: #### C BC, CMP, PHOS, MG, LIPID #### [address] Magnesiumon 01-04-2022 Magnesium [Mass/Vol] 1.6 mg/dL Normal 1.6-2.6 [facility] Comment on above: Performed By: #### C BC, CMP, PHOS, MG, LIPID #### [address] No Panel InformationOrdered By: Graham Helm on 01-04-2022 Valproic Acid (Depakene) Level 28.2 ug/mL 50.0-100.0 [facility] Comment on above: Last dose: - Phosphate [Mass/volume] in S yeyo or PlasmaOrdered By: Henry Burnett on 01-04-2022 Phosphate [Mass/Vol] 3.5 mg/dL 2.5-4.6 [facility] Phosphoruson 01-04-2022 Phosphate [Mass/Vol] 3.5 mg/dL Normal 2.5-4.6 [facility] Comment on above: Performed By: #### C BC, CMP, PHOS, MG, LIPID #### [address] Serum or plasma high density lipoprotein (HDL) cholesterol measurementOrdered By: Henry Burnett on 01-04-2022 Cholesterol in HDL [Mass/Vol] 55 mg/dL 35-85 [facility] Comment on above: HDL CHOL ATP-III CLA SSIFICATION Cardiovascular RiskHDL > or equal to 60 mg/dL LOWHDL < 40 mg/dL HIGH Serum or plasma total choles terol/high density lipoprotein (HDL) cholesterol mass ratOrdered By: Henry Burnett on 01-04-2022 Cholesterol.total/Choles terol in HDL [Mass ratio] 2.6 {ratio} <5.0 [facility] Triglyceride [Mass/volume] i n Serum or PlasmaOrdered By: Henry Burnett on 01-04-2022 Triglyceride [Mass/Vol] 60 mg/dL 35-149 F [facility] Comment on above: TRIG ATP III CLASSIF ICATIONTRIG less than 150 mg/dL NormalTRIG 150-199 mg/dL Borderline highTRIG 200-500 mg/dL High TRIG greater than 500 mg/dL Very highStandard traceable to the Center for Disease Conrtrol and Prevention (CDC) test method. Valproic Acid (in house)on Valproic Acid (in house) 28.2 ug/mL Low 50.0-100.0 [facility] Comment on above: Result Comment: Last dose: - PERFORMED BY: [facility] [address] [place] [address] PATHOLOGIST STERILE PROCESSING TECHNICIAN ANTONY ELIAS M.D. Performed By: #### C BC, CMP, PHOS, MG, LIPID #### [facility] [address] [place] [id number] [place] Acetaminophenon 01-03-2022 Acetaminophen [Mass/Vol] 25.3 ug/mL Normal 10.0-30.0 [facility] Comment on above: Performed By: #### C MP, T4F, TSH3, CBC, ETOH, JUAN, ACET, VALP #### [facility] [address] [place] [id number] [place] Albumin [Mass/volume] in Ser um or PlasmaOrdered By: Justin Francisco on 01-03-2022 Albumin [Mass/Vol] 3.6 g/dL 3.2-5.5 [facility] Amphetamine Screen Ql (U)Ord ered By: Justin Francisco on 01-03-2022 Amphetamines Ql (U) Negative Negative [facility] Automated erythrocytes count in urine sediment (number/area)Ordered By: Justin Francisco on 01-03-2022 RBC Auto (Urine sed) [#/Area] None seen [HPF] 0-4 [facility] Automated leukocytes count i n urine sediment (number/area)Ordered By: Justin Francisco on 01-03-2022 WBC Auto (Urine sed) [#/Area] 5-9 [HPF] 0-4 [facility] Barbiturates [Presence] in U rineOrdered By: Justin Francisco on 01-03-2022 Barbiturates Ql (U) Negative Negative [facility] Basophils Auto (Bld) [#/Vol] Ordered By: Justin Francisco on 01-03-2022 Basophils (Bld) [#/Vol] 0.0 10*3/uL 0.0-0.2 [facility] Basophils/100 WBC Auto (Bld) Ordered By: Justin Francisco on 01-03-2022 Basophils/100 WBC (Bld) 0.6 % . F [facility] Benzodiazepines [Presence] i n UrineOrdered By: Justin Francisco on 01-03-2022 Benzodiazepines Ql (U) Negative [facility] Bilirubin Test strip Ql (U)O rdered By: Justin Francisco on 01-03-2022 Bilirubin Ql (U) Negative Negative [facility] Blood hemoglobin measurement (mass/volume)Ordered By: Justin Francisco on 01-03-2022 Hemoglobin (Bld) [Mass/Vol] 13.4 g/dL 11.8-15.4 [facility] Blood leukocytes automated c ount (number/volume)Ordered By: Justin Francisco on 01-03-2022 WBC (Bld) [#/Vol] 6.4 10*3/uL 4.5-11.0 [facility] COVID-19 Antigenon 2 COVID-19 Antigen Healthcare Worker?: N Reference Range: Negative Negative results, from patients with symptom onset beyond five days, should be treated as presumptive and confirmation with a molecular assay, if necessary, for patient management, may be performed. Negative results do not rule out COVID-19 and should not be used as the sole basis for treatment or patient management decisions, including infection control decisions. Negative results should be considered in the context of a patient's recent exposures, history and the presence of clinical signs and symptoms consistent with COVID-19. The Delores SARS Antigen MARLINE does not differentiate between SARS-CoV and SARS-CoV-2. This test was developed and its performance characteristic determined by [employer] and validated at [facility]. This test has not been FDA cleared or approved. This test has been authorized by FDA under an Emergency Use Authorization (EUA). This test has been validated in accordance with the FDA's Guidance Document (Policy for Diagnostics Testing in Laboratories Certified to Perform High Complexity Testing under CLIA prior to Emergency Use Authorization for Coronavirus Disease-2019 during the Public Health Emergency) issued on July 03, 2019. This test is only authorized for the duration of time the declaration that circumstances exist justifying the authorization of the emergency use of in vitro diagnostic tests for detection of SARS-CoV-2 virus and/or diagnosis of COVID-19 infection under section 564(b)(1) of the Act, 21 U.S.C. 360bbb-3(b)(1), unless the authorization is terminated or revoked sooner. SARS-CoV+SARS-CoV-2 (COVID-19) Ag [Presence] in Respiratory specimen by Rapid immunoassay Negative for SARS Antigen by MARLINE PERFORMED BY: [place] [id number] PATHOLOGIST STERILE PROCESSING TECHNICIAN ANTONY ELIAS M.D. Normal [facility] Comment on above: Performed By: #### C BC, CMP, PHOS, MG, LIPID #### [facility] [address] [place], [place] [id number] [facility] COVID-19 FRMCon 01-03-2022 SARS-CoV-2 (COVID-19) RNA ARMINDA+probe Ql (Unsp spec) Negative Normal Negative [facility] Comment on above: Order Comment: Healt hcare Worker?: N Result Comment: Testing for SARS-CoV-2 by RT-PCR This test was developed and its performance characteristics determined by [employer] and validated at the [facility]. This test has not been FDA cleared or approved. This test has been authorized by FDA under an Emergency Use Authorization (EUA). This test has been validated in accordance with the FDA's Guidance Document (Policy for Diagnostics Testing in Laboratories Certified to Perform High Complexity Testing under CLIA prior to Emergency Use Authorization for Coronavirus Disease-2019 during the Public Health Emergency) issued on July 03, 2019. This test is only authorized for the duration of time the declaration that circumstances exist justifying the authorization of the emergency use of in vitro diagnostic tests for detection of SARS-CoV-2 virus and/or diagnosis of COVID-19 infection under section 564(b)(1) of the Act, 21 U.S.C. 360bbb-3(b)(1), unless the authorization is terminated or revoked sooner. PERFORMED BY: [place] [id number] PATHOLOGIST STERILE PROCESSING TECHNICIAN ANTONY ELIAS M.D. Performed By: #### C BC, CMP, PHOS, MG, LIPID #### [facility] [address] [place], [place] [id number] [facility] COVID-19 Positive/NegativeOr dered By: Justin Francisco on 01-03-2022 SARS-CoV-2 (COVID-19) N gene ARMINDA+probe Ql (Resp) Negative Negative [facility] Comment on above: Testing for SARS-CoV -2 by RT-PCRThis test was developed and its performance characteristics determined by [facility] ([place]) and validated at the [facility]. This test has not been FDA cleared or approved. This test has been authorized by FDA under an Emergency Use Authorization (EUA). This test has been validated in accordance with the FDA's Guidance Document (Policy for Diagnostics Testing in Laboratories Certified to Perform High Complexity Testing under CLIA prior to Emergency Use Authorization for Coronavirus Disease-2019 during the Public Health Emergency) issued on July 03, 2019. This test is only authorized for the duration of time the declaration that circumstances exist justifying the authorization of the emergency use of in vitro diagnostic tests for detection of SARS-CoV-2 virus and/or diagnosis of COVID-19 infection under section 564(b)(1) of the Act, 21 U.S.C. 360bbb-3(b)(1), unless the authorization is terminated or revoked sooner. COVID-19 SOFIAOrdered By: Aman Francisco on 01-03-2022 SARS-CoV+SARS-CoV-2 (COVID-19) Ag IA.rapid Ql (Resp) Negative Negative [facility] Comment on above: This is a duplicate Delores SARS Antigen (MARLINE) result to be used for statistical tracking purpose only. CT head/brain wo conon 01-03 CT head/brain wo con [facility] [place] [address] CT Scan Report Signed Patient: Kathy Porter MR#: [id number] : 1960 Acct:[id number] Age/Sex: 61 / F ADM Date: 01/03/22 Loc: ER Room: Type: [facility] ER Attending Dr: Copies to: Justin Francisco DO Ordering Provider: Justin Francisco DO Date of Service: 01/03/22 CT/CT head/brain wo con: reported confusion, tremors CT head/brain wo con 01/03/2022 2:22 PM SIGNS AND SYMPTOMS: reported confusion, tremors TECHNIQUE:Multi-detec tor CT axial slices of the brain were obtained without IV contrast. CT was performed with one or more of the following dose reduction techniques: Automated exposure control, adjustment of the mA and/or kV according to patient size, or use of iterative reconstruction technique. COMPARISON: None. FINDINGS: There is no shift of the midline structures, acute intracranial bleeding, mass effects, or evidence of acute ischemia. There is mild diffuse age-related cortical atrophy. There is periventricular white matter hypoattenuation suspicious for mild chronic microvascular ischemic change. Atherosclerotic changes are noted in the intracranial segments of the internal carotid arteries bilaterally. The ventricular system is normal in size. The brainstem and the cerebellum are unremarkable. The visualized intraorbital contents, the visualized paranasal sinuses, and the infratemporal soft tissues show no acute abnormality. The osseous structures in the skull base and the calvarium show no abnormality. CT/CT head/brain wo con IMPRESSION: No acute intracranial pathology. Mild chronic age-related changes are noted, as above. Impression dictated by: Rajinder Cardona M.D.01/03/2022 3:21 PM Dictation Location: [place] [address] Transcribed By: [facility] 01/03/22 1521 Dictated By: Rajinder Cardona II, MD 01/03/22 1518 Signed By: 01/03/[address] [facility] Cannabinoids [Presence] in U rine by Screen methodOrdered By: Justin Francisco on 01-03-2022 Cannabinoids Screen Ql (U) Negative Negative [facility] Comment on above: These are unconfirme d results and should not be used for legal purposes. Drug Cut-Off Concentration: AMPH 1000 ng/mL TERRY 200 ng/mL HONG 200 ng/mL COCM 300 ng/mL OP 300 ng/mL PCP 25 ng/mL THC 20 ng/mL Color Auto (U)Ordered By: Aman Francisco on 01-03-2022 Color (U) Yellow Yellow [facility] Complete Blood Count Auto Di ffon 01-03-2022 Basophils (Bld) [#/Vol] 0.0 10*3/uL Normal 0.0-0.2 [facility] Comment on above: Result Comment: PERF ORMED BY: [facility] [address] [place] [address] PATHOLOGIST STERILE PROCESSING TECHNICIAN ANTONY ELIAS M.D. Performed By: #### C MP, T4F, TSH3, CBC, ETOH, JUAN, ACET, VALP #### [address] Basophils/100 WBC (Bld) 0.6 % Normal . F [facility] Comment on above: Performed By: #### C MP, T4F, TSH3, CBC, ETOH, JUAN, ACET, VALP #### [address] Eosinophils (Bld) [#/Vol] 0.1 10*3/uL Normal 0.0-0.45 [facility] Comment on above: Performed By: #### C MP, T4F, TSH3, CBC, ETOH, JUAN, ACET, VALP #### [address] Eosinophils/100 WBC (Bld) 1.4 % Normal . [facility] Comment on above: Performed By: #### C MP, T4F, TSH3, CBC, ETOH, JUAN, ACET, VALP #### [address] Erythrocyte distribution width (RBC) [Ratio] 15.7 % High 11.9-15.3 [facility] Comment on above: Performed By: #### C MP, T4F, TSH3, CBC, ETOH, JUAN, ACET, VALP #### [address] Hematocrit (Bld) [Volume fraction] 41.0 % Normal 34.0-46.4 [facility] Comment on above: Performed By: #### C MP, T4F, TSH3, CBC, ETOH, JUAN, ACET, VALP #### [address] Hemoglobin (Bld) [Mass/Vol] 13.4 g/dL Normal 11.8-15.4 [facility] Comment on above: Performed By: #### C MP, T4F, TSH3, CBC, ETOH, JUAN, ACET, VALP #### [address] Lymphocytes (Bld) [#/Vol] 1.4 10*3/uL Normal 1.00-4.8 [facility] Comment on above: Performed By: #### C MP, T4F, TSH3, CBC, ETOH, JUAN, ACET, VALP #### [address] Lymphocytes/100 WBC (Bld) 22.3 % Normal . [facility] Comment on above: Performed By: #### C MP, T4F, TSH3, CBC, ETOH, JUAN, ACET, VALP #### [address] MCH (RBC) [Entitic mass] 29.7 pg Normal 24.7-34.3 [facility] Comment on above: Performed By: #### C MP, T4F, TSH3, CBC, ETOH, JUAN, ACET, VALP #### [address] MCV (RBC) [Entitic vol] 91.0 fL Normal 80-100 F [facility] Comment on above: Performed By: #### C MP, T4F, TSH3, CBC, ETOH, JUAN, ACET, VALP #### [address] Mean Corpuscular HGB Conc 32.6 g/dL Normal 32.0-35.0 [facility] Comment on above: Performed By: #### C MP, T4F, TSH3, CBC, ETOH, JUAN, ACET, VALP #### [address] Monocytes (Bld) [#/Vol] 0.6 10*3/uL Normal 0.0-0.8 [facility] Comment on above: Performed By: #### C MP, T4F, TSH3, CBC, ETOH, JUAN, ACET, VALP #### [address] Monocytes/100 WBC (Bld) 8.9 % Normal . F [facility] Comment on above: Performed By: #### C MP, T4F, TSH3, CBC, ETOH, JUAN, ACET, VALP #### [address] Neutrophils (Bld) [#/Vol] 4.3 10*3/uL Normal 1.8-7.7 [facility] Comment on above: Performed By: #### C MP, T4F, TSH3, CBC, ETOH, JUAN, ACET, VALP #### [address] Neutrophils/100 WBC (Bld) 66.8 % Normal . [facility] Comment on above: Performed By: #### C MP, T4F, TSH3, CBC, ETOH, JUAN, ACET, VALP #### [address] Nucleated RBC/100 WBC (Bld) [Ratio] 0.1 % Normal 0-0.5 [facility] Comment on above: Performed By: #### C MP, T4F, TSH3, CBC, ETOH, JUNA, ACET, VALP #### [address] Platelet mean volume (Bld) [Entitic vol] 8.8 fL Normal 6.3-10.7 [facility] Comment on above: Performed By: #### C MP, T4F, TSH3, CBC, ETOH, JUAN, ACET, VALP #### [address] Platelets (Bld) [#/Vol] 236 10*3/uL Normal 150-450 [facility] Comment on above: Performed By: #### C MP, T4F, TSH3, CBC, ETOH, JUAN, ACET, VALP #### [place] [address] [place] RBC (Bld) [#/Vol] 4.50 10*6/uL Normal 3.60-5.00 [facility] Comment on above: Performed By: #### C MP, T4F, TSH3, CBC, ETOH, JUAN, ACET, VALP #### [place] [address] [place] WBC (Bld) [#/Vol] 6.4 10*3/uL Normal 4.5-11.0 [facility] Comment on above: Performed By: #### C MP, T4F, TSH3, CBC, ETOH, JUAN, ACET, VALP #### [facility] [address] Comprehensive Metabolic Pane clarice 01-03-2022 Albumin [Mass/Vol] 3.6 g/dL Normal 3.2-5.5 [facility] Comment on above: Performed By: #### C BC, CMP, PHOS, MG, LIPID #### [facility] [address] Albumin/Globulin [Mass ratio] 1.2 {ratio} Normal [facility] Comment on above: Performed By: #### C BC, CMP, PHOS, MG, LIPID #### [facility] [address] ALP [Catalytic activity/Vol] 40 U/L Normal 32-92 [facility] Comment on above: Performed By: #### C BC, CMP, PHOS, MG, LIPID #### [facility] [address] ALT [Catalytic activity/Vol] 14 U/L Normal 10-60 [facility] Comment on above: Performed By: #### C BC, CMP, PHOS, MG, LIPID #### [facility] [address] Anion gap [Moles/Vol] 16.7 mmol/L High 6.0-15.0 [facility] Comment on above: Performed By: #### C BC, CMP, PHOS, MG, LIPID #### [facility] [address] AST [Catalytic activity/Vol] 18 U/L Normal 10-42 [facility] Comment on above: Performed By: #### C BC, CMP, PHOS, MG, LIPID #### [facility] [address] [place] [address] [place] Bilirubin [Mass/Vol] 0.6 mg/dL Normal 0.3-1.2 [facility] Comment on above: Performed By: #### C BC, CMP, PHOS, MG, LIPID #### [facility] [address] Calcium [Mass/Vol] 9.5 mg/dL Normal 8.2-10.2 [facility] Comment on above: Performed By: #### C BC, CMP, PHOS, MG, LIPID #### [facility] [address] Chloride [Moles/Vol] 99 mmol/L Normal 95-114 [facility] Comment on above: Performed By: #### C BC, CMP, PHOS, MG, LIPID #### [address] CO2 [Moles/Vol] 23.6 mmol/L Normal 22.0-30.0 [facility] Comment on above: Performed By: #### C BC, CMP, PHOS, MG, LIPID #### [address] Creatinine [Mass/Vol] 1.38 mg/dL High 0.44-1.03 [facility] Comment on above: Performed By: #### C BC, CMP, PHOS, MG, LIPID #### [address] Creatinine Clr Calc Pharmacy 43.00 [facility] Comment on above: Performed By: #### C BC, CMP, PHOS, MG, LIPID #### [address] Estimated GFR ( [place] 47 [facility] Comment on above: Result Comment: GFR estimated reference range: According to KDOQI guidelines, <60 ml/min/1.73m2 is sufficient to diagnose a patient with chronic kidney disease. Performed By: #### C BC, CMP, PHOS, MG, LIPID #### [address] Estimated GFR (Non- Am 39 [facility] Comment on above: Performed By: #### C BC, CMP, PHOS, MG, LIPID #### [facility] [address] Globulin (S) [Mass/Vol] 3.1 g/dL Normal F [facility] Comment on above: Performed By: #### C BC, CMP, PHOS, MG, LIPID #### [facility] [address] [place] [address] [place] Glucose [Mass/Vol] 137 mg/dL High 70-100 [facility] Comment on above: Result Comment: [facility] Glucose Reference Range is dependent on time and content of last meal. Glucose of more than 200 mg/dL in a nonstressed, ambulatory subject supports the diagnosis of Diabetes Mellitus. ADA recommended reference range Performed By: #### C BC, CMP, PHOS, MG, LIPID #### [facility] [address] Potassium [Moles/Vol] 4.3 mmol/L Normal 3.5-5.1 [facility] Comment on above: Performed By: #### C BC, CMP, PHOS, MG, LIPID #### [facility] [address] Protein [Mass/Vol] 6.7 g/dL Normal 6.1-7.9 [facility] Comment on above: Performed By: #### C BC, CMP, PHOS, MG, LIPID #### [facility] [address] [place] [address] [place] Sodium [Moles/Vol] 135 mmol/L Low 136-146 [facility] Comment on above: Performed By: #### C BC, CMP, PHOS, MG, LIPID #### [facility] [address] [place] [address] [place] Urea nitrogen [Mass/Vol] 14 mg/dL Normal 9-23 [facility] Comment on above: Performed By: #### C BC, CMP, PHOS, MG, LIPID #### [facility] [address] [place] [address] [place] Creatinine and Glomerular fi ltration rate.predicted panel (S/P/Bld)Ordered By: Justin Francisco on 01-03-2022 Creatinine [Mass/Vol] 1.38 mg/dL 0.44-1.03 [facility] Dipstick and Microscopicon 1 Appearance (U) Clear Normal Clear [facility] Comment on above: Order Comment: Name Collection Type:: Clean-Voided Midstream Performed By: #### C BC, CMP, PHOS, MG, LIPID #### [facility] [address] Bacteria,Urine 2+ High None Seen [facility] Comment on above: Order Comment: Name Collection Type:: Clean-Voided Midstream Performed By: #### C BC, CMP, PHOS, MG, LIPID #### [facility] [address] [place] [address] [place] Bilirubin,Urine Negative Normal Negative [facility] Comment on above: Order Comment: Name Collection Type:: Clean-Voided Midstream Performed By: #### C BC, CMP, PHOS, MG, LIPID #### [facility] [address] Color (U) Yellow Normal Yellow [facility] Comment on above: Order Comment: Name Collection Type:: Clean-Voided Midstream Performed By: #### C BC, CMP, PHOS, MG, LIPID #### [facility] [address] [place] [address] [place] Glucose Ql (U) Normal Normal Normal [facility] Comment on above: Order Comment: Name Collection Type:: Clean-Voided Midstream Performed By: #### C BC, CMP, PHOS, MG, LIPID #### [facility] [address] [place] [address] [place] Hyaline Casts,Urine 0-8 Normal 0-8 [facility] Comment on above: Order Comment: Name Collection Type:: Clean-Voided Midstream Performed By: #### C BC, CMP, PHOS, MG, LIPID #### [facility] [address] [place] [address] [place] Ketones Ql (U) Negative Normal Negative [facility] Comment on above: Order Comment: Name Collection Type:: Clean-Voided Midstream Performed By: #### C BC, CMP, PHOS, MG, LIPID #### [address] Leukocyte esterase Test strip Ql (U) 2+ High Negative [facility] Comment on above: Order Comment: Name Collection Type:: Clean-Voided Midstream Performed By: #### C BC, CMP, PHOS, MG, LIPID #### [address] Nitrite,Urine Negative Normal Negative [facility] Comment on above: Order Comment: Name Collection Type:: Clean-Voided Midstream Performed By: #### C BC, CMP, PHOS, MG, LIPID #### [address] Occult Blood,Urine Negative Normal Negative [facility] Comment on above: Order Comment: Name Collection Type:: Clean-Voided Midstream Result Comment: PERF ORMED BY: [place] [address] PATHOLOGIST STERILE PROCESSING TECHNICIAN ANTONY ELIAS M.D. Performed By: #### C BC, CMP, PHOS, MG, LIPID #### [address] pH (U) 5.5 [pH] Normal 5.0-9.0 [facility] Comment on above: Order Comment: Name Collection Type:: Clean-Voided Midstream Performed By: #### C BC, CMP, PHOS, MG, LIPID #### [address] Protein,Urine Negative Normal Negative [facility] Comment on above: Order Comment: Name Collection Type:: Clean-Voided Midstream Performed By: #### C BC, CMP, PHOS, MG, LIPID #### [address] RBC,Urine None Seen Normal 0-4 [facility] Comment on above: Order Comment: Name Collection Type:: Clean-Voided Midstream Performed By: #### C BC, CMP, PHOS, MG, LIPID #### [address] [place] [address] [place] Specificy [place],Urine 1.012 Normal 1.001-1.030 [facility] Comment on above: Order Comment: Name Collection Type:: Clean-Voided Midstream Performed By: #### C BC, CMP, PHOS, MG, LIPID #### [address] Squamous Epithelial Cell,Urine 3-4 High 0-2 [facility] Comment on above: Order Comment: Name Collection Type:: Clean-Voided Midstream Performed By: #### C BC, CMP, PHOS, MG, LIPID #### [address] Urobilinogen,Urine Normal Normal Normal [facility] Comment on above: Order Comment: Name Collection Type:: Clean-Voided Midstream Performed By: #### C BC, CMP, PHOS, MG, LIPID #### [address] WBC,Urine 5-9 High 0-4 [facility] Comment on above: Order Comment: Name Collection Type:: Clean-Voided Midstream Performed By: #### C BC, CMP, PHOS, MG, LIPID #### [address] Yeast,Urine None Seen Normal None Seen [facility] Comment on above: Order Comment: Name Collection Type:: Clean-Voided Midstream Result Comment: PERF ORMED BY: [place] [address] PATHOLOGIST STERILE PROCESSING TECHNICIAN ANTONY ELIAS M.D. Performed By: #### C BC, CMP, PHOS, MG, LIPID #### [address] Drug Screen,Urineon 01-04-20 Amphetamine Screen,Urine Negative Normal Negative [facility] Comment on above: Performed By: #### C BC, CMP, PHOS, MG, LIPID #### [address] Barbiturate Screen,Urine Negative Normal Negative [facility] Comment on above: Performed By: #### C BC, CMP, PHOS, MG, LIPID #### [address] Benzodiazepines Screen,Urine Negative Normal Negative [facility] Comment on above: Performed By: #### C BC, CMP, PHOS, MG, LIPID #### [address] Cannabinoid Screen,Urine Negative Normal Negative [facility] Comment on above: Result Comment: Thes e are unconfirmed results and should not be used for legal purposes. Drug Cut-Off Concentration: AMPH 1000 ng/mL TERRY 200 ng/mL HONG 200 ng/mL COCM 300 ng/mL OP 300 ng/mL PCP 25 ng/mL THC 20 ng/mL PERFORMED BY: [place] [address] PATHOLOGIST STERILE PROCESSING TECHNICIAN ANTONY ELIAS M.D. Performed By: #### C BC, CMP, PHOS, MG, LIPID #### [address] Cocaine Screen,Urine Negative Normal Negative [facility] Comment on above: Performed By: #### C BC, CMP, PHOS, MG, LIPID #### [address] Opiate Screen,Urine Negative Normal Negative [facility] Comment on above: Performed By: #### C BC, CMP, PHOS, MG, LIPID #### [address] Phencyclidine Screen,Urine Negative Normal Negative [facility] Comment on above: Performed By: #### C BC, CMP, PHOS, MG, LIPID #### [address] ECG 12 lead ECGon 01-03-2022 ECG 12 lead ECG [facility] [place] [address] [place] [address] Electrocardiograph Report Signed Patient: Kathy Porter MR#: [id number] : 1960 Acct:[id number] Age/Sex: 61 / F ADM Date: 01/03/22 Loc: 3T Room: [address] [place] [address] Type: DIS INOo Attending Dr: Henry Burnett MD Ordering Provider: Justin Francisco DO Date of Service: 01/03/2207/23/1407 ECG/ECG 12 lead ECG: Altered Mental Status Copies to: Test Reason : Blood Pressure : 197/112 mmHG Vent. Rate : 082 BPM Atrial Rate : 082 BPM P-R Int : 182 ms QRS Dur : 092 ms QT Int : 410 ms P-R-T Axes : 109 076 115 degrees QTc Int : 479 ms Normal sinus rhythm Lateral infarct , age undetermined Abnormal ECG No previous ECGs available Confirmed by Justin Francisco DO ([id number]) on 01/03/2022 7:17:59 PM Referred By: Electronically Signed By:Justin Franicsco DO Transcribed By: MUS Signed By Justin Francisco DO 01/[address] [facility] Eosinophils Auto (Bld) [#/Vo l]Ordered By: Jsutin Francisco on 01-03-2022 Eosinophils (Bld) [#/Vol] 0.1 10*3/uL 0.0-0.45 [facility] Eosinophils/100 WBC Auto (Bl d)Ordered By: Justin Francisco on 01-03-2022 Eosinophils/100 WBC (Bld) 1.4 % . [facility] Erythrocyte distribution wid th Auto (RBC) [Ratio]Ordered By: Justin Francisco on 01-03-2022 Erythrocyte distribution width (RBC) [Ratio] 15.7 % 11.9-15.3 [facility] Estimated glomerular filtrat ion rate (GFR) non- AmericanOrdered By: Justin Francisco on 01-03-2022 GFR/1.73 sq M.predicted among non-blacks MDRD (S/P/Bld) [Vol rate/Area] 39 mL/Min [facility] Ethyl Alcohol Profileon Ethanol [Mass/Vol] mg/dL Normal [facility] Comment on above: Performed By: #### C MP, T4F, TSH3, CBC, ETOH, JUAN, ACET, VALP #### [facility] [address] Percent Ethanol Not performed Normal [facility] Comment on above: Result Comment: PERF ORMED BY: [place] [address] PATHOLOGIST STERILE PROCESSING TECHNICIAN ANTONY ELIAS M.D. Performed By: #### C MP, T4F, TSH3, CBC, ETOH, JUAN, ACET, VALP #### [facility] [address] Free T4 (Free Thyroxine)on 1 Free T4 [Mass/Vol] 1.10 ng/dL Normal 0.61-1.12 [facility] Comment on above: Performed By: #### C BC, CMP, PHOS, MG, LIPID #### [facility] [address] Globulin Calc (S) [Mass/Vol] Ordered By: Justin Francisco on 01-03-2022 Globulin (S) [Mass/Vol] 3.1 g/dL F [facility] Hematocrit Auto (Bld) [Volum e fraction]Ordered By: Justin Francisco on 01-03-2022 Hematocrit (Bld) [Volume fraction] 41.0 % 34.0-46.4 [facility] Ketones Auto test strip (U) [Mass/Vol]Ordered By: Justin Francisco on 01-03-2022 Ketones (U) [Mass/Vol] Negative Negative [facility] Laboratory - Drug toxicology Ordered By: Justin Francisco on 01-03-2022 Opiates Ql (U) Negative Negative [facility] - Hematology and Cell countsOrdered By: Justin Francisco on 01-03-2022 Nucleated RBC/100 WBC (Bld) [Ratio] 0.1 % 0-0.5 [facility] - UrinalysisOrder ed By: Justin Francisco on 01-03-2022 Hyaline casts LM Ql (Urine sed) 0-8 [LPF] 0-8 [facility] Lymphocytes Auto (Bld) [#/Vo l]Ordered By: Justin Francisco on 01-03-2022 Lymphocytes (Bld) [#/Vol] 1.4 10*3/uL 1.00-4.8 [facility] Lymphocytes/100 WBC Auto (Bl d)Ordered By: Justin Francisco on 01-03-2022 Lymphocytes/100 WBC (Bld) 22.3 % . [facility] MCH Auto (RBC) [Entitic mass ]Ordered By: Justin Francisco on 01-03-2022 MCH (RBC) [Entitic mass] 29.7 pg 24.7-34.3 [facility] MCHC Auto (RBC) [Mass/Vol]Or dered By: Justin Francisco on 01-03-2022 MCHC (RBC) [Mass/Vol] 32.6 g/dL 32.0-35.0 [facility] MCV Auto (RBC) [Entitic vol] Ordered By: Justin Francisco on 01-03-2022 MCV (RBC) [Entitic vol] 91.0 fL 80-100 F [facility] Monocytes Auto (Bld) [#/Vol] Ordered By: Justin Francisco on 01-03-2022 Monocytes (Bld) [#/Vol] 0.6 10*3/uL 0.0-0.8 [facility] Monocytes/100 WBC Auto (Bld) Ordered By: Justin Francisco on 01-03-2022 Monocytes/100 WBC (Bld) 8.9 % . F [facility] Neutrophils Auto (Bld) [#/Vo l]Ordered By: Justin Francisco on 01-03-2022 Neutrophils (Bld) [#/Vol] 4.3 10*3/uL 1.8-7.7 [facility] Neutrophils/100 WBC Auto (Bl d)Ordered By: Justin Francisco on 01-03-2022 Neutrophils/100 WBC (Bld) 66.8 % . [facility] Nitrite Test strip Ql (U)Ord ered By: Justin Francisco on 01-03-2022 Nitrite Ql (U) Negative Negative [facility] No Panel InformationOrdered By: Justin Francisco on 01-03-2022 Estimated GFR () 47 mL/Min [facility] Comment on above: GFR estimated refere nce range: According to KDOQI guidelines, <60 ml/min/1.73m2 is sufficient to diagnose a patient with chronic kidney disease. Pharmacy Creatinine Clearance (Chem 43.00 [facility] Valproic Acid (Depakene) Level 59.0 ug/mL 50.0-100.0 [facility] Comment on above: Last dose: - SARS Antigen (LFIA) [facility] Phencyclidine Screen Ql (U)O rdered By: Justin Francisco on 01-03-2022 Phencyclidine Ql (U) Negative Negative [facility] Platelet mean volume Auto (B ld) [Entitic vol]Ordered By: Justin Francisco on 01-03-2022 Platelet mean volume (Bld) [Entitic vol] 8.8 fL 6.3-10.7 [facility] Platelets Auto (Bld) [#/Vol] Ordered By: Justin Francisco on 01-03-2022 Platelets (Bld) [#/Vol] 236 10*3/uL 150-450 [facility] Protein Auto test strip (U) [Mass/Vol]Ordered By: Justin Francisco on 01-03-2022 Protein (U) [Mass/Vol] Negative Negative [facility] Protein [Mass/volume] in Ser um or PlasmaOrdered By: Justin Francisco on 01-03-2022 Protein [Mass/Vol] 6.7 g/dL 6.1-7.9 [facility] RBC Auto (Bld) [#/Vol]Ordere d By: Justin Francisco on 01-03-2022 RBC (Bld) [#/Vol] 4.50 10*6/uL 3.60-5.00 [facility] Salicylateon 01-03-2022 Salicylate < 4.0 Low 15.0-30.0 [facility] Comment on above: Result Comment: Phuong ents treated with Sulfasalazine may generate a false high result for Salicylate. Patients treated with Sulfapyridine may generate a false low result for Salicylate. Performed By: #### C MP, T4F, TSH3, CBC, ETOH, JUAN, ACET, VALP #### [facility] [address] Salicylates [Mass/volume] in Serum or PlasmaOrdered By: Justin Francisco on 01-03-2022 Salicylates [Mass/Vol] mg/dL 15.0-30.0 [facility] Comment on above: Patients treated wit h Sulfasalazine may generate a false high result for Salicylate.Patients treated with Sulfapyridine may generate a false low result for Salicylate. Serum or plasma acetaminophe n measurement (mass/volume)Ordered By: Justin Francisco on 01-03-2022 Acetaminophen [Mass/Vol] 25.3 ug/mL 10.0-30.0 [facility] Serum or plasma alanine angeles otransferase measurement without P-5'-P (enzymatic activiOrdered By: Justin Francisco on 01-03-2022 ALT No additional P-5'-P [Catalytic activity/Vol] 14 U/L 1060 [facility] Serum or plasma albumin/glob ulin mass ratioOrdered By: Justin Francisco on 01-03-2022 Albumin/Globulin [Mass ratio] 1.2 {ratio} [facility] Serum or plasma alkaline flaquita sphatase measurement (enzymatic activity/volume)Ordered By: Justin Francisco on 01-03-2022 ALP [Catalytic activity/Vol] 40 U/L 32-92 [facility] Serum or plasma anion gap de terminationOrdered By: Justin Francisco on 01-03-2022 Anion gap [Moles/Vol] 16.7 mmol/L 6.0-15.0 [facility] Serum or plasma aspartate am inotransferase measurement (enzymatic activity/volume)Ordered By: Justin Francisco on 01-03-2022 AST [Catalytic activity/Vol] 18 U/L 10-42 [facility] Serum or plasma calcium sarah urement (mass/volume)Ordered By: Justin Francisco on 01-03-2022 Calcium [Mass/Vol] 9.5 mg/dL 8.2-10.2 [facility] Serum or plasma chloride deep surement (moles/volume)Ordered By: Justin Francisco on 01-03-2022 Chloride [Moles/Vol] 99 mmol/L 95-114 [facility] Serum or plasma ethanol sarah urement (mass/volume)Ordered By: Justin Francisco on 01-03-2022 Ethanol [Mass/Vol] mg/dL [facility] Ethanol [Mass/Vol] TNP [facility] Comment on above: Test not performed Serum or plasma glucose sarah urement (mass/volume)Ordered By: Justin Francisco on 01-03-2022 Glucose [Mass/Vol] 137 mg/dL 70-100 [facility] Comment on above: ADA recommended refe rence rangeRandom Glucose Reference Range is dependent on time and content of last meal. Glucose of more than 200 mg/dL in a nonstressed, ambulatory subject supports the diagnosis of Diabetes Mellitus. Serum or plasma potassium me asurement (moles/volume)Ordered By: Justin Francisco on 01-03-2022 Potassium [Moles/Vol] 4.3 mmol/L 3.5-5.1 [facility] Serum or plasma sodium measu rement (moles/volume)Ordered By: Justin Francisco on 01-03-2022 Sodium [Moles/Vol] 135 mmol/L 136-146 [facility] Serum or plasma total biliru bin measurement (mass/volume)Ordered By: Justin Francisco on 01-03-2022 Bilirubin [Mass/Vol] 0.6 mg/dL 0.3-1.2 [facility] Serum or plasma total carbon dioxide measurement (moles/volume)Ordered By: Justin Francisco on 01-03-2022 CO2 [Moles/Vol] 23.6 mmol/L 22.0-30.0 [facility] Serum or plasma urea nitroge n measurement (mass/volume)Ordered By: Justin Francisco on 01-03-2022 Urea nitrogen [Mass/Vol] 14 mg/dL 9- [facility] Delores Ag Negativeon 01-04-20 Delores Ag Negative Negative Normal Negative [facility] Comment on above: Result Comment: This is a duplicate Delores SARS Antigen (MARLINE) result to be used for statistical tracking purpose only. PERFORMED BY: [facility] [address] [place] [address] PATHOLOGIST STERILE PROCESSING TECHNICIAN ANTONY ELIAS M.D. Performed By: #### C BC, CMP, PHOS, MG, LIPID #### [facility] [address] Specific gravity Auto test s trip (U) [Rel density]Ordered By: Justin Francisco on 01-03-2022 Specific gravity (U) [Rel density] 1.012 1.001-1.030 [facility] Squamous epithelial cells de tection in urine sediment by light microscopyOrdered By: Justin Francisco on 01-03-2022 Epithelial cells.squamous LM Ql (Urine sed) 3-4 [HPF] 0-2 [facility] TSH DL <= 0.005 mIU/L QnOrde red By: Justin Francisco on 01-03-2022 TSH Qn 4.71 m[IU]/L 0.45-5.33 [facility] Thyroid Stimulating Hormoneo n 01-03-2022 TSH Qn 4.71 m[IU]/L Normal 0.45-5.33 [facility] Comment on above: Result Comment: PERF ORMED BY: [address] [place] [address] PATHOLOGIST STERILE PROCESSING TECHNICIAN ANTONY ELIAS M.D. Performed By: #### C BC, CMP, PHOS, MG, LIPID #### [facility] [address] [place] [address] Thyroxine (T4) free [Mass/vo lume] in Serum or PlasmaOrdered By: Justin Francisco on 01-03-2022 Free T4 [Mass/Vol] 1.10 ng/dL 0.61-1.12 [facility] Urine Cultureon 01-03-2022 Bacteria identified Cx Nom (U) ORGANISM: Escherichia coli (O:ESCCOL) Jena Count >100,000 Aerobic AHMET Charge (NUC86) ---- SUSCEPTIBILITY --- ORGANISM: O:ESCCOL ANTIBIOTIC INTERPRETATION AHMET Amikacin S <16 Ampicillin R >16 Ampicillin/Sulbactam I 1616/8 Aztreonam S <4 Cefazolin S <2 Cefepime S <2 Ceftazidime S <1 Ceftazidime/Avibactam S <8 Ceftriaxone S <1 Ciprofloxacin S <1 Ertapenem S <0.5 Gentamicin R >8 Levofloxacin S <2 Meropenem S <1 Nitrofurantoin S <32 Piperacillin/Tazobact am S <16 Tetracycline S <4 Tigecycline S <2 Tobramycin R >8 Trimethoprim/Sulfamet hoxazole S <2/38 S = SUSCEPTIBLE I = INTERMEDIATE R = RESISTANT BLANK = DATA NOT AVAILABLE, OR DRUG NOT ADVISABLE OR TESTED R* = RESISTANCE DUE TO EXTENDED SPECTRUM BETA-LACTAMASES ESBL = EXTENDED SPECTRUM BETA-LACTAMASE TFG = THYMIDINE-DEPENDENT STRAIN JUWAN = BETA-LACTAMASE POSITIVE IB = INDUCIBLE BETA-LACTAMASE. APPEARS IN PLACE OF 'S' WITH SPECIES KNOWN TO POSSESS INDUCIBLE BETA-LACTAMASES. POTENTIALLY THEY MAY BECOME RESISTANT TO ALL B-LACTAM DRUGS. PERFORMED BY: [place] [address] PATHOLOGIST STERILE PROCESSING TECHNICIAN ANTONY ELIAS M.D. [facility] Comment on above: Performed By: #### C BC, CMP, PHOS, MG, LIPID #### [facility] [address] [place] [address] Urine bacteria detection by automated methodOrdered By: Justin Francisco on 01-03-2022 Bacteria Auto Ql (U) 2+ None Seen [facility] Urine clarity by refractomet ry automatedOrdered By: Justin Francisco on 01-03-2022 Clarity Refractometry automated (U) Clear Clear [facility] Urine cocaine detectionOrder ed By: Justin Francisco on 01-03-2022 Cocaine Ql (U) Negative Negative [facility] Urine glucose measurement by automated test strip (mass/volume)Ordered By: Justin Francisco on 01-03-2022 Glucose Auto test strip (U) [Mass/Vol] Normal mg/dL Normal [facility] Urine hemoglobin detection b y automated test stripOrdered By: Justin Francisco on 01-03-2022 Hemoglobin Auto test strip Ql (U) Negative Negative [facility] Urine leukocyte esterase det ection by automated test stripOrdered By: Justin Francisco on 01-03-2022 Leukocyte esterase Auto test strip Ql (U) 2+ Negative [facility] Urobilinogen Auto test strip (U) [Mass/Vol]Ordered By: Justin Francisco on 01-03-2022 Urobilinogen (U) [Mass/Vol] Normal mg/dL Normal [facility] Valproic Acid (in house)on 1 Valproic Acid (in house) 59.0 ug/mL Normal 50.0-100.0 [facility] Comment on above: Result Comment: Last dose: - PERFORMED BY: [place] [address] PATHOLOGIST STERILE PROCESSING TECHNICIAN ANTONY ELIAS M.D. Performed By: #### C MP, T4F, TSH3, CBC, ETOH, JUAN, ACET, VALP #### [address] Yeast detection in urine sed iment by light microscopyOrdered By: Justin Francisco on 01-03-2022 Yeast LM Ql (Urine sed) None seen [HPF] None Se en [facility] pH Auto test strip (U)Ordere d By: Justin Francisco on 01-03-2022 pH (U) 5.5 [pH] 5.0-9.0 [facility] CBC AUTO DIFFon 10-27-2021 BASO # 0.1 103/ul Normal 0.0-0.1 [facility] Comment on above: Performed By: #### C BC ####[facility] [address] [place] [address]Dr. Julio Goddard Basophils/100 WBC (Bld) 0.6 % Normal 0.2-2.0 [facility] Comment on above: Performed By: #### C BC ####[facility] [address] [place] [id number]. Julio Goddard EO # 0.2 103/ul Normal 0.0-0.7 [facility] Comment on above: Performed By: #### C BC ####[facility] [address] [place] [id number]. Julio Goddard Eosinophils/100 WBC (Bld) 2.4 % Normal 0.9-7.0 [facility] Comment on above: Performed By: #### C BC ####[facility] [address] [place] [address]Dr. Julio Goddard Erythrocyte distribution width (RBC) [Ratio] 15.0 % Normal 11.0-15.0 [facility] Comment on above: Performed By: #### C BC ####[facility] [address] [place] [address]Dr. Julio Goddard Hematocrit (Bld) [Volume fraction] 37.4 % Normal 36.0-48.0 [facility] Comment on above: Performed By: #### C BC ####[facility] [address] [place], [place] [address]Dr. Julio Goddard Hemoglobin (Bld) [Mass/Vol] 12.2 g/dL Normal 12.0-16.0 [facility] Comment on above: Performed By: #### C BC ####[facility] [address] [place], [place] [address]Dr. Julio Goddard IG # 0.04 10e3/ul Critically high 0.00-0.03 [facility] Comment on above: Performed By: #### C BC ####[facility] [address] [place], [place] [address]Dr. Julio Goddard IG % 0.4 % Normal 0.0-0.5 [facility] Comment on above: Performed By: #### C BC ####[facility] [address] [place], [place] [address]Dr. Julio Goddard LYMPH # 2.3 103/ul Normal 1.2-3.8 [facility] Comment on above: Performed By: #### C BC ####[facility] [address] [place], [place] [address]Dr. Julio Goddard Lymphocytes/100 WBC (Bld) 23.6 % Normal 20.5-60.0 [facility] Comment on above: Performed By: #### C BC ####[facility] [address] [place], [place] [address]Dr. Julio Goddard MANUAL DIFF REQ NO Normal [facility] Comment on above: Performed By: #### C BC ####[facility] [address] [place] [address]Dr. Julio Rupesh MCH (RBC) [Entitic mass] 29.3 pg Normal 26.7-34.0 [facility] Comment on above: Performed By: #### C BC ####[facility] [address] [place] [address]Dr. Julio Rupesh MCHC (RBC) [Mass/Vol] 32.6 g/dL Normal 29.9-35.2 [facility] Comment on above: Performed By: #### C BC ####[facility] [address] [place] [address]DrMarky Goddard MCV (RBC) [Entitic vol] 89.7 fL Normal 81.0-99.0 [facility] Comment on above: Performed By: #### C BC ####[facility] [address] [place], [place] [address]DrMarky Goddard MONO # 0.6 103/ul Normal 0.3-0.8 [facility] Comment on above: Performed By: #### C BC ####[facility] [address] [place], [place] [address]DrMarky Goddard Monocytes/100 WBC (Bld) 5.5 % Normal 1.7-12.0 [facility] Comment on above: Performed By: #### C BC ####[facility] [address] [place], [place] [address]DrMarky Goddard NEUT # 6.7 103/ul Critically high 1.4-6.5 [facility] Comment on above: Performed By: #### C BC ####[facility] [address] [place], [place] [address]DrMarky Goddard Neutrophils/100 WBC (Bld) 67.5 % Normal 43.0-75.0 [facility] Comment on above: Performed By: #### C BC ####[facility] [address] [place], [place] [address]DrMarky Goddard Platelet mean volume (Bld) [Entitic vol] 10.2 fL Normal 9.5-13.5 [facility] Comment on above: Performed By: #### C BC ####[facility] [address] [place] [id number]. Julio Goddard PLT 296 103/ul Normal 150-450 [facility] Comment on above: Performed By: #### C BC ####[facility] [address] [place] [id number]. Julio Goddard RBC 4.17 106/ul Critically low 4.20-5.40 [facility] Comment on above: Performed By: #### C BC ####[facility] [address] [place] [phone]. Julio Goddard WBC 9.9 103/ul Normal 4.0-11.0 [facility] Comment on above: Performed By: #### C BC ####[facility] [address] [place] [id number]. Julio Goddard LIPID PROFILEon 10-27-2021 CHOL-HDL RATIO NORM SEE BELOW Normal [facility] Comment on above: Result Comment: 3.3 - 4.4 LOW RISK 4.4 - 7.1 AVERAGE RISK 7.1 - 11.0 MODERATE RISK >11.0 HIGH RISK Performed By: #### C MP, LIPID ####[facility] [address] [place] [id number]. Julio Goddard Cholesterol [Mass/Vol] 148 mg/dL Normal <=200 [facility] Comment on above: Performed By: #### C MP, LIPID ####[facility] [address] [place] [id number]. Julio Goddard Cholesterol in HDL [Mass/Vol] 60 mg/dL Normal 40-60 [facility] Comment on above: Performed By: #### C MP, LIPID ####[facility] [address] [place] [id number]. Julio Goddard Cholesterol in LDL [Mass/Vol] 72.2 mg/dL Normal [facility] Comment on above: Performed By: #### C MP, LIPID ####[facility] [address] [place] [phone]. Julio Goddard Cholesterol.total/Choles terol in HDL [Mass ratio] 2.5 {ratio} Normal [facility] Comment on above: Performed By: #### C MP, LIPID ####[facility] [address] [place] [id number]. Julio Goddard HDL NORMAL > or = 60 mg/dl - LO W CARDIOVASCULAR RISK <40 mg/dl - HIGH CARDIOVASCULAR RISK Normal [facility] Comment on above: Performed By: #### C MP, LIPID ####[facility] [address] [place] [phone]. Julio Goddard LDL CALC NORMAL SEE BELOW Normal [facility] Comment on above: Result Comment: <100 mg/dl OPTIMAL 100 - 129 mg/dl NEAR OR ABOVE OPTIMAL 130 - 159 mg/dl BORDERLINE HIGH 160 - 189 mg/dl HIGH >190 mg/dl VERY HIGH Performed By: #### C MP, LIPID ####[facility] [address] [place] [phone] Goddard Triglyceride [Mass/Vol] 79 mg/dL Normal <=150 [facility] Comment on above: Performed By: #### C MP, LIPID ####[facility] [address] [place] [address]Dr. Julio Goddard VLDL CALC 15.8 mg/dL Normal [facility] Comment on above: Performed By: #### C MP, LIPID ####[facility] [address] [place] [phone]. Julio Goddard PROF 14(COMP METB)on 022 Albumin [Mass/Vol] 3.7 g/dL Normal 3.4-5.0 [facility] Comment on above: Performed By: #### C MP, LIPID #### [facility] [address] [place] [address] [address] Julio Goddard Albumin/Globulin [Mass ratio] 1.0 {ratio} Normal [facility] Comment on above: Performed By: #### C MP, LIPID #### [facility] [address] [address] [address] Julio Goddard ALP [Catalytic activity/Vol] 53 U/L Normal 46-116 [facility] Comment on above: Performed By: #### C MP, LIPID #### [facility] [address] [place] [address] Dr. Julio Goddard ALT [Catalytic activity/Vol] 15 U/L Normal 14-59 [facility] Comment on above: Performed By: #### C MP, LIPID #### [facility] [address] [place] [address] Dr. Julio Goddard Anion gap [Moles/Vol] 16.1 mmol/L Normal [facility] Comment on above: Performed By: #### C MP, LIPID #### [facility] [address] [place] [address] Dr. Julio Goddard AST [Catalytic activity/Vol] 8 U/L Critically low 15-37 [facility] Comment on above: Performed By: #### C MP, LIPID #### [facility] [address] [place] [address] Dr. Julio Goddard Bilirubin [Mass/Vol] 0.5 mg/dL Normal 0.2-1.0 [facility] Comment on above: Performed By: #### C MP, LIPID #### [facility] [address] [place] [address] Dr. Julio Goddard Calcium [Mass/Vol] 9.1 mg/dL Normal 8.5-10.1 [facility] Comment on above: Performed By: #### C MP, LIPID #### [facility] [address] [place] [address] Dr. Julio Goddard Chloride [Moles/Vol] 106 mmol/L Normal 98-107 [facility] Comment on above: Performed By: #### C MP, LIPID #### [facility] [address] [place] [address] Dr. Julio Goddard CO2 [Moles/Vol] 24.1 mmol/L Normal 21.0-32.0 [facility] Comment on above: Performed By: #### C MP, LIPID #### [facility] [address] [place] [address] Dr. Julio Goddard Creatinine [Mass/Vol] 1.40 mg/dL Critically high 0.55-1.02 [facility] Comment on above: Performed By: #### C MP, LIPID #### [facility] [address] [address] [address] Julio Goddard EGFR-AF PAPUA NEW GUINEAN 47 mL/min/1.73m2 Critically low >=60 [facility] Comment on above: Performed By: #### C MP, LIPID #### [facility] [address] [address] [address] Julio Goddard EGFR-NON AF PAPUA NEW GUINEAN 39 mL/min/1.73m2 Critically low >=60 [facility] Comment on above: Performed By: #### C MP, LIPID #### [facility] [address] [place] [address] Dr. Julio Goddard Globulin (S) [Mass/Vol] 3.6 g/dL Normal [facility] Comment on above: Performed By: #### C MP, LIPID #### [facility] [address] [place] [address] Dr. Julio Goddard Glucose [Mass/Vol] 95 mg/dL Normal 74-106 [facility] Comment on above: Performed By: #### C MP, LIPID #### [facility] [address] [place] [address] Dr. Julio Goddard Potassium [Moles/Vol] 4.2 mmol/L Normal 3.5-5.1 [facility] Comment on above: Performed By: #### C MP, LIPID #### [facility] [address] [place] [address] Dr. Julio Goddard Protein [Mass/Vol] 7.3 g/dL Normal 6.4-8.2 [facility] Comment on above: Performed By: #### C MP, LIPID #### [facility] [address] [place] [address] Dr. Julio Goddard Sodium [Moles/Vol] 142 mmol/L Normal 136-145 [facility] Comment on above: Performed By: #### C MP, LIPID #### [facility] [address] [place] [address] Dr. Julio Goddard Urea nitrogen [Mass/Vol] 18.0 mg/dL Normal 7.0-18.0 [facility] Comment on above: Performed By: #### C MP, LIPID #### [facility] [address] [address] [address] Julio Goddard Urea nitrogen/Creatinine [Mass ratio] 12.9 mg/mg Normal [facility] Comment on above: Performed By: #### C MP, LIPID #### [facility] [address] [address] [address] Juloi Goddard INSULINon 03-23-2021 Insulin 10.0 uIU/mL Normal 2.6-24.9 [facility] Comment on above: Performed By: #### I NSULIN #### [facility] [address] [address] [address] Julio Goddard VIT D 25-OH LABCORPon 2020 Vitamin D, 25-Hydroxy 11.8 ng/mL Critically low 30.0-100.0 [facility] Comment on above: Result Comment: Swati min D deficiency has been defined by the [place] [employer] and an Endocrine Society practice guideline as a level of serum 25-OH vitamin D less than 20 ng/mL (1,2). The Endocrine Society went on to further define vitamin D insufficiency as a level between 21 and 29 ng/mL (2). 1. IOM ([place] [employer]). 2010. Dietary reference intakes for calcium and D. Gerardo [place]: The National Academies Press. 2. Matt MF, Wilma [place], Shiraz ELIZONDO, et al. Evaluation, treatment, and prevention of vitamin D deficiency: an Endocrine Society clinical practice guideline. JCEM. 2010; 96(7):1911-30. Performed By: #### V ITADLC ####[facility] [address] [place] [address]Dr. Julio Goddard CBC AUTO DIFFon 03-22-2021 BASO # 0.1 103/ul Normal 0.0-0.1 [facility] Comment on above: Performed By: #### C BC #### [facility] [address] [address] [address] Julio Goddard Basophils/100 WBC (Bld) 0.8 % Normal 0.2-2.0 [facility] Comment on above: Performed By: #### C BC #### [facility] [address] [place] [address] Dr. Julio Goddard EO # 0.2 103/ul Normal 0.0-0.7 [facility] Comment on above: Performed By: #### C BC #### [facility] [address] [place] [address] Dr. Julio Goddard Eosinophils/100 WBC (Bld) 2.6 % Normal 0.9-7.0 [facility] Comment on above: Performed By: #### C BC #### [facility] [address] [place] [address] Dr. Julio Goddard Erythrocyte distribution width (RBC) [Ratio] 14.2 % Normal 11.0-15.0 [facility] Comment on above: Performed By: #### C BC #### [facility] [address] [place] [address] Dr. Julio Goddard Hematocrit (Bld) [Volume fraction] 37.4 % Normal 36.0-48.0 [facility] Comment on above: Performed By: #### C BC #### [facility] [address] [place] [address] Dr. Julio Goddard Hemoglobin (Bld) [Mass/Vol] 11.9 g/dL Critically low 12.0-16.0 [facility] Comment on above: Performed By: #### C BC #### [facility] [address] [place] [address] Dr. Julio Goddard IG # 0.02 10e3/ul Normal 0.00-0.03 [facility] Comment on above: Performed By: #### C BC #### [facility] [address] [place] [address] Dr. Julio Goddard IG % 0.3 % Normal 0.0-0.5 [facility] Comment on above: Performed By: #### C BC #### [facility] [address] [place] [address] Dr. Julio Goddard LYMPH # 1.8 103/ul Normal 1.2-3.8 [facility] Comment on above: Performed By: #### C BC #### [facility] [address] [place] [address] Dr. Julio Goddard Lymphocytes/100 WBC (Bld) 27.6 % Normal 20.5-60.0 [facility] Comment on above: Performed By: #### C BC #### [facility] [address] [place] [address] Dr. Julio Goddard MANUAL DIFF REQ NO Normal [facility] Comment on above: Performed By: #### C BC #### [facility] [address] [place] [address] Dr. Julio Goddard MCH (RBC) [Entitic mass] 29.1 pg Normal 26.7-34.0 [facility] Comment on above: Performed By: #### C BC #### [facility] [address] [place] [address] Dr. Julio Goddard MCHC (RBC) [Mass/Vol] 31.8 g/dL Normal 29.9-35.2 [facility] Comment on above: Performed By: #### C BC #### [facility] [address] [place] [address] Dr. Julio Goddard MCV (RBC) [Entitic vol] 91.4 fL Normal 81.0-99.0 [facility] Comment on above: Performed By: #### C BC #### [facility] [address] [place] [address] Dr. Julio Goddard MONO # 0.6 103/ul Normal 0.3-0.8 [facility] Comment on above: Performed By: #### C BC #### [facility] [address] [place] [address] Dr. Julio Goddard Monocytes/100 WBC (Bld) 8.7 % Normal 1.7-12.0 [facility] Comment on above: Performed By: #### C BC #### [facility] [address] [place] [address] Dr. Julio Goddard NEUT # 3.9 103/ul Normal 1.4-6.5 [facility] Comment on above: Performed By: #### C BC #### [facility] [address] [place] [address] Dr. Julio Goddard Neutrophils/100 WBC (Bld) 60.0 % Normal 43.0-75.0 [facility] Comment on above: Performed By: #### C BC #### [facility] [address] [place] [address] Dr. Julio Goddard Platelet mean volume (Bld) [Entitic vol] 10.1 fL Normal 9.5-13.5 [facility] Comment on above: Performed By: #### C BC #### [facility] [address] [place] [address] Dr. Julio Goddard PLT 263 103/ul Normal 150-450 [facility] Comment on above: Performed By: #### C BC #### [facility] [address] [place] [address] Dr. Julio Goddard RBC 4.09 106/ul Critically low 4.20-5.40 [facility] Comment on above: Performed By: #### C BC #### [facility] [address] [place] [address] Dr. Julio Goddard WBC 6.5 103/ul Normal 4.0-11.0 [facility] Comment on above: Performed By: #### C BC #### [facility] [address] [place] [address] Dr. Julio Goddard FREE THYROXINE INDEX T7on FTI 3.50 Normal [facility] Comment on above: Performed By: #### C MP, T7, LIPID, TSH #### [facility] [address] [place] [address] Dr. Julio Goddard T3U 35.0 % Normal 23.5-40.5 [facility] Comment on above: Performed By: #### C MP, T7, LIPID, TSH #### [facility] [address] [place] [address] Dr. Julio Goddard T4 [Mass/Vol] 10.00 ug/dL Normal 5.53-11.00 [facility] Comment on above: Performed By: #### C MP, T7, LIPID, TSH #### [facility] [address] [address] [address] Julio Goddard GLYCOHEMOGLOBIN A1Con 2020 ADA RECOMMENDATION ADA THERAPEUTIC TARGET 6.0 - 7.0 ACTION SUGGESTED > 7.0 Normal [facility] Comment on above: Performed By: #### A 1C #### [facility] [address] [address] [address] Julio Goddard Glucose [Mass/Vol] 103 mg/dL Normal [facility] Comment on above: Performed By: #### A 1C #### [facility] [address] [address] [address] Julio Goddard HbA1c (Bld) [Mass fraction] 5.2 % Normal <=6.0 [facility] Comment on above: Performed By: #### A 1C #### [facility] [address] [address] [address] Julio Goddard IRONon 03-22-2021 Iron [Mass/Vol] 55.0 ug/dL Normal 37.0-170.0 [facility] Comment on above: Performed By: #### I MARIA E ####[facility] [address] [address]Dr. Julio Goddard LIPID PROFILEon 03-22-2021 CHOL-HDL RATIO NORM SEE BELOW Normal [facility] Comment on above: Result Comment: 3.3 - 4.4 LOW RISK 4.4 - 7.1 AVERAGE RISK 7.1 - 11.0 MODERATE RISK >11.0 HIGH RISK Performed By: #### C MP, T7, LIPID, TSH #### [facility] [address] [address] [address] Julio Goddard Cholesterol [Mass/Vol] 163 mg/dL Normal <=200 [facility] Comment on above: Performed By: #### C MP, T7, LIPID, TSH #### [facility] [address] [address] [address] Julio Goddard Cholesterol in HDL [Mass/Vol] 65 mg/dL Normal [facility] Comment on above: Performed By: #### C MP, T7, LIPID, TSH #### [facility] [address] [address] [address] Julio Goddard Cholesterol in LDL [Mass/Vol] 80.8 mg/dL Normal [facility] Comment on above: Performed By: #### C MP, T7, LIPID, TSH #### [facility] [address] [address] [address] Julio Goddard Cholesterol.total/Choles terol in HDL [Mass ratio] 2.5 {ratio} Normal [facility] Comment on above: Performed By: #### C MP, T7, LIPID, TSH #### [facility] [address] [address] [address] Julio Goddard HDL NORMAL > or = 60 mg/dl - LO W CARDIOVASCULAR RISK <40 mg/dl - HIGH CARDIOVASCULAR RISK Normal [facility] Comment on above: Performed By: #### C MP, T7, LIPID, TSH #### [facility] [address] [address] [address] Julio Goddard LDL CALC NORMAL SEE BELOW Normal [facility] Comment on above: Result Comment: <100 mg/dl OPTIMAL 100 - 129 mg/dl NEAR OR ABOVE OPTIMAL 130 - 159 mg/dl BORDERLINE HIGH 160 - 189 mg/dl HIGH >190 mg/dl VERY HIGH Performed By: #### C MP, T7, LIPID, TSH #### [facility] [address] [address] [address] Julio Goddard Triglyceride [Mass/Vol] 86 mg/dL Normal <=150 [facility] Comment on above: Performed By: #### C MP, T7, LIPID, TSH #### [facility] [address] [address] [address] Julio Goddard VLDL CALC 17.2 mg/dL Normal [facility] Comment on above: Performed By: #### C MP, T7, LIPID, TSH #### [facility] [address] [address] [address] Julio Goddard PROF 14(COMP METB)on 021 Albumin [Mass/Vol] 3.5 g/dL Normal 3.5-5.0 [facility] Comment on above: Performed By: #### C MP, T7, LIPID, TSH #### [facility] [address] [place] [address] Dr. Julio Goddard Albumin/Globulin [Mass ratio] 1.0 {ratio} Normal [facility] Comment on above: Performed By: #### C MP, T7, LIPID, TSH #### [facility] [address] [place] [address] Dr. Julio Goddard ALP [Catalytic activity/Vol] 58 U/L Normal 38-126 [facility] Comment on above: Performed By: #### C MP, T7, LIPID, TSH #### [facility] [address] [place] [address] Dr. Julio Goddard ALT [Catalytic activity/Vol] 16 U/L Normal 9-52 [facility] Comment on above: Performed By: #### C MP, T7, LIPID, TSH #### [facility] [address] [place] [address] Dr. Julio Goddard Anion gap [Moles/Vol] 13.0 mmol/L Normal [facility] Comment on above: Performed By: #### C MP, T7, LIPID, TSH #### [facility] [address] [place] [address] Dr. Julio Goddard AST [Catalytic activity/Vol] 10 U/L Critically low 14-36 [facility] Comment on above: Performed By: #### C MP, T7, LIPID, TSH #### [facility] [address] [place] [address] Dr. Julio Goddard Bilirubin [Mass/Vol] 0.6 mg/dL Normal 0.2-1.3 [facility] Comment on above: Performed By: #### C MP, T7, LIPID, TSH #### [facility] [address] [place] [address] Dr. Julio Goddard Calcium [Mass/Vol] 9.4 mg/dL Normal 8.4-10.2 [facility] Comment on above: Performed By: #### C MP, T7, LIPID, TSH #### [facility] [address] [address] [address] Julio Goddard Chloride [Moles/Vol] 105 mmol/L Normal 98-107 [facility] Comment on above: Performed By: #### C MP, T7, LIPID, TSH #### [facility] [address] [address] [address] Julio Goddard CO2 [Moles/Vol] 28.3 mmol/L Normal 22.0-30.0 [facility] Comment on above: Performed By: #### C MP, T7, LIPID, TSH #### [facility] [address] [address] [address] Julio Goddard Creatinine [Mass/Vol] 1.37 mg/dL Critically high 0.52-1.04 [facility] Comment on above: Performed By: #### C MP, T7, LIPID, TSH #### [facility] [address] [place] [address] Dr. Julio Goddard EGFR-AF PAPUA [place] 48 mL/min/1.73m2 Critically low >=60 [facility] Comment on above: Performed By: #### C MP, T7, LIPID, TSH #### [facility] [address] [address] [address] Julio Goddard EGFR-NON AF PAPUA [place] 40 mL/min/1.73m2 Critically low >=60 [facility] Comment on above: Performed By: #### C MP, T7, LIPID, TSH #### [facility] [address] [address] [address] Julio Goddard Globulin (S) [Mass/Vol] 3.5 g/dL Normal [facility] Comment on above: Performed By: #### C MP, T7, LIPID, TSH #### [facility] [address] [address] [address] Julio Goddard Glucose [Mass/Vol] 110 mg/dL Critically high 74-106 [facility] Comment on above: Performed By: #### C MP, T7, LIPID, TSH #### [facility] [address] [address] [address] Julio Goddard Potassium [Moles/Vol] 4.3 mmol/L Normal 3.4-5.0 [facility] Comment on above: Performed By: #### C MP, T7, LIPID, TSH #### [facility] [address] [place] [address] Dr. Julio Goddard Protein [Mass/Vol] 7.0 g/dL Normal 6.1-8.2 [facility] Comment on above: Performed By: #### C MP, T7, LIPID, TSH #### [facility] [address] [place] [address] Dr. Julio Goddard Sodium [Moles/Vol] 142 mmol/L Normal 137-145 [facility] Comment on above: Performed By: #### C MP, T7, LIPID, TSH #### [facility] [address] [place] [address] Dr. Julio Goddard Urea nitrogen [Mass/Vol] 13.0 mg/dL Normal 7.0-17.0 [facility] Comment on above: Performed By: #### C MP, T7, LIPID, TSH #### [facility] [address] [place] [address] Dr. Julio Goddard Urea nitrogen/Creatinine [Mass ratio] 9.5 mg/mg Normal [facility] Comment on above: Performed By: #### C MP, T7, LIPID, TSH #### [facility] [address] [place] [address] Dr. Julio Goddard TSHon 03-22-2021 TSH 2.734 uIU/mL Normal 0.470-4.680 [facility] Comment on above: Performed By: #### C MP, T7, LIPID, TSH #### [facility] [address] [place] [address] Dr. Julio Goddard TSH RANGE SEE BELOW Normal [facility] Comment on above: Result Comment: <0.3 4 UIU/ml HYPERTHYROID 0.34-5.60 UIU/ml EUTHYROID >5.60 UIU/ml HYPOTHYROID Performed By: #### C MP, T7, LIPID, TSH #### [facility] [address] [place] [address] Dr. 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 VICKIE (generalized anxiety disorder) (F41.1: Generalized anxiety disorder) Patient will: verbalize understanding of cognitive, physiological, and behavioral components of anxiety and depressive symptoms; implement calming relaxation skills to reduce anxious thoughts; identify major life conflicts from past/present that formed basis of depression; engage in mindful acceptance strategies to reduce depressive avoidance; increase personal empowerment statements by implementing positive affirmations. Therapist will: assist patient in reconceptualizing anxiety and depression as involving different dimensions in therapy to increase predictably of symptoms via Cognitive Behavioral Therapy (CBT); teach thought-stopping and positive reframe to reinforce successful interactions and increase self-worth; demonstrate grounding relaxation/calming techniques, educate patient on Acceptance and Commitment Therapy (ACT) to increase social engagement; therapist will teach patient CBT techniques to implement and change negative self-talk. [1] Psychotherapy Summary Therapist met with patient and encouraged her to provide an update since last seen. Utilize active listening and reflective techniques to engage patient in conversation. Asked open-ended questions for additional information. Encouraged patient to think about people she can connect with so she isn't feeling so lonely. Provided patient with suggestions and feedback for this. Had patient discuss what has been beneficial and what she continues to struggle with each day. Led conversation regarding her mood and what patient feels that has contributed towards it. Assisted patient in looking at what healthy coping skills and resources that are available to her that could help alleviate some of the isolation she feels. Validated patient's concerns regarding her being so busy outside of the home. Therapist Intervention Person-centered approach Patient Response Patient reports that she has her up and down days. 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 She states it bothers me . She does talk to her mother everyday. Patient would like to return to [facility] for therapy services through [facility]. This technical writer and editor gave patient Мария's new phone number Changes In Medical Condition None reported Changes In Functional Impairment None reported Changes In Symptoms Explained None reported Other Information This visit was conducted via phone communications from my office due to the restrictions of the COVID-19 pandemic. No physical exam was conducted due to audio only communication with the patient located at [address] [place] [place] [phone], with no one else. If it is determined that the patient should be evaluated in person, the patient will be directed to the appropriate clinic or venue. The patient or their guardian verbally consented to this visit. Phone time was 30 minutes discussing health issues with counseling and coordination of care. Problem List/Past Medical History Ongoing DM II (diabetes mellitus, type II), controlled VICKIE (generalized anxiety disorder) HTN (hypertension) Mild depressed bipolar I disorder with mixed features Historical Bipolar disorder, current episode mixed Procedure/Surgical History Kidney Blockage Surgical Procedure (2002), Cholecystectomy (1997), Pilar cyst. Medications Ambien 10 mg Tab, 10 mg= 1 tab(s), Oral, Bedtime, PRN, 1 refills Avapro 300 mg Tab, 300 mg= 1 tab(s), Oral, Daily Cardura 2 mg Tab, 2 mg= 1 tab(s), Oral, BID doxazosin 2 mg Tab irbesartan 300 mg Tab irbesartan 75 mg Tab, 75 mg= 1 tab(s), Oral, Daily Klonopin 0.5 mg Tab, 0.5 mg= 1 tab(s), Oral, TID, 1 refills metformin 1000 mg Tab, 1000 mg= 1 tab(s), Oral, BID metoprolol 100 mg ER Tab, 100 mg= 1 tab(s), Oral, BID Norvasc 10 mg Tab, 10 mg= 1 tab(s), Oral, Daily Protonix 40 mg Tab-DR, 40 mg= 1 tab(s), Oral, Daily Risperdal 3 mg Tab, 3 mg= 1 tab(s), Oral, Daily traZODONE 100 mg Tab, See Instructions, 1 refills Viberzi 100 mg oral tablet, Every other day Wellbutrin XL 150 mg/24 hours Tab-ER, 150 mg= 1 tab(s), Oral, q24hr Wellbutrin XL 300 mg/24 hours Tab-ER, 300 mg= 1 tab(s), Oral, Daily, 1 refills Zocor 10 mg Tab, 10 mg= 1 tab(s), Oral, Daily Zofran 4 mg Tab Allergies sulfa drugs (Rash) Social History Alcohol - Denies Alcohol Use, 10/14/2018 Employment/School Unemployed, Highest education level: University degree(s)., 10/14/2018 Home/Environment Lives with Children, Spouse. Living situation: Home/Independent., 10/14/2018 Substance Abuse - Denie (more content not included)... Normal [facility] Comment on above: Result Comment: Elec tronically Signed By: Chevy [facility], Janet Coronado.marion\Date and Time Signed: 02/13/20 10:50 EST Video Visit - Telehealtho n 02-09-2020 Video Visit - Telehealth Chief Complaint Video visit with patient from her home daughter also present visit done using [employer] Format Subjective Interval History/HPI This visit was conducted via two-way, real-time interactive video communications from my office using [employer] due to the restrictions of the COVID-19 pandemic. No physical exam was conducted other than those areas of the body visible to telecommunications with the patient located at [address] [place], [place] [id number], with daughter in attendance. If it is determined that the patient should be evaluated in the clinic, the patient will be directed to the appropriate clinic or venue. The patient or their guardian verbally consented to this visit. Video time was 10 minutes with the patient face to face greater than 50% in addition to counseling and coordination of care. Patient is seen via video conferencing, audiovisual quality was fair, patient was able to engage and answer questions appropriately. Patient spouse had called earlier and reported that additional Wellbutrin did not help patient as far as his witnessing onset concern. Patient continues to have erratic sleep patterns and continues to have low motivation and low energy and is less active. Patient reports she will have some good days where she is more motivated and is able to take care of her daily ADLs and chores and does not need as much help from her spouse. She is struggling with maintaining good sleep hygiene. We encouraged patient to have a social rhythm because that will help patient feel less depressed and more productive and it will help her thoughts and feelings where she will feel less helpless and worthless and have less anhedonia. She still isolates times and prefers to be alone. Denied any ongoing feelings of hopelessness and is not reporting any morbid thoughts. Patient denied any manic or hypomanic mood symptoms at this point. She is not reporting any irritability or elated moods. Denies any significant racing thoughts or flight of ideas. Motor activity is slightly slowed. Patient speech was not pressured and she is not engaging in increased goal-directed activities. No major decline since she was last seen here. Patient reports her anxiety control is fair on Klonopin. Interpersonal issues were discussed: Support provided Insight Oriented/ behavior modifying/ Supportive Therapy: XXX Mood Assessment: Baseline mood stability is maintained on her current medications. She still has daily mild depressive mood symptoms. This is her baseline Medication Assessment: Compliant, will adjust, no ongoing side effects reported ISP - Goals and Objectives of Treatment: Maintain baseline stability and prevent any decline Improve social and interpersonal functioning Medication and Treatment Compliance Review of Systems ROS - Provider Constitutional: no fever, no chills, no sweats, no weakness. Skin: no Jaundice, no rash, no lesions, no petechiae. ENMT: no ear pain, no sore throat, no congestion, no hoarseness. Respiratory: no shortness of breath, no cough, no orthopnea, no wheezing. Cardiovascular: no chest pain, no palpitations, no edema. Mental Status Exam Appearance.: Appropriately dressed and groomed, appears stated age Behavior: cooperative BH Speech: Normal rate Affect: restricted Mood: 'same' Thought Process/Associations: Logical and goal directed Thought Content.: Non-psychotic Cognition/Attention/M dwight/Concentration: Alert and oriented x3 Insight/Judgement: limited Suicidal: Denies ongoing suicidal ideation, intent and plan. Homicidal: Denied ongoing homicidal ideations, intent or plan. Language: Within normal limits Fund of Knowledge: Adequate Risk Assessment Currently at low risk of self harm. Denied ongoing feelings of hopelessness. Denies ongoing suicidal ideation, intent and plan in session Diagnosis/Assessment/ Treatment Plan Informed Consent: Standard Inform Consent (IC), Non-FDA Guidelines Off-Use IC Informed Consent Obtained: Yes, we discussed the diagnosis/diagnoses, the treatment options, treatment/treatments recommended vs. no treatment. We discussed risks and benefits of treatment options, treatment recommendations and vs. no treatment. 1. Bipolar 1 disorder, mixed, mild (F31.61: Bipolar disorder, current episode mixed, mild) 2. VICKIE (generalized anxiety disorder) (F41.1: Generalized anxiety disorder) General Treatment Plan Pharmacological management: Alternative medication plans were discussed with the patient/guardian. All relevant side effects and potential adverse effects were discussed with the patient/guardian. Standard cautions and potential benefits were discussed. Patient/Guardian consented to the continuation of the following: Continue Risperdal 3 mg Tab, 3 mg= 1 tab(s), Oral, Daily Continue traZODONE 100 mg Tab, See Instructions, 1 refills Continue Ambien 10 mg 1 daily at bedtime Continue Klonopin 0.5 mg 1 tablet 3 times daily as needed anxiety (more content not included)... Normal [facility] Comment on above: Result Comment: Elec tronically Signed By: ESVIN CID, Scott\.br\Date and Time Signed: 02/09/20 15:07 EST Ambulatory Clinical Summaryo n 10-30-2019 Ambulatory Clinical Summary {[id number] Normal [facility] Vital Signs Date Time Vital Sign Value Performing Clinician Facility 05-30-2022 13:47-0500 Body height 157.5 cm Scott Mcallister MD Work Phone: [facility] 05-30-2022 13:47-0500 Body mass index (BMI) [Ratio] 32.74 kg/m2 Scott Mcallister MD Work Phone: [facility] 05-30-2022 13:47-0500 Body weight 81.19 kg Scott Mcallister MD Work Phone: [facility] 05-30-2022 13:47-0500 Diastolic blood pressure 84 mm[Hg] Scott Mcallister MD Work Phone: [facility] 05-30-2022 13:47-0500 Heart rate 76 /min Scott Mcallister MD Work Phone: [facility] 05-30-2022 13:47-0500 Respiratory rate 16 /min Scott Mcallister MD Work Phone: [facility] 05-30-2022 13:47-0500 SaO2% (BldA) [Mass fraction] 97 % Scott Mcallister MD Work Phone: [facility] 05-30-2022 13:47-0500 Systolic blood pressure 129 mm[Hg] Scott Mcallister MD Work Phone: [facility] 02-28-2022 12:48-0500 Body height 157.5 cm Scott Mcallister MD Work Phone: [facility] 02-28-2022 12:48-0500 Body mass index (BMI) [Ratio] 32.74 kg/m2 Scott Mcallister MD Work Phone: [facility] 02-28-2022 12:48-0500 Body weight 81.19 kg Scott Mcallister MD Work Phone: [facility] 02-28-2022 12:48-0500 Diastolic blood pressure 83 mm[Hg] Scott Mcallister MD Work Phone: [facility] 02-28-2022 12:48-0500 Heart rate 78 /min Scott Mcallister MD Work Phone: [facility] 02-28-2022 12:48-0500 Respiratory rate 18 /min Scott Mcallister MD Work Phone: [facility] 02-28-2022 12:48-0500 SaO2% (BldA) [Mass fraction] 95 % Scott Mcallister MD Work Phone: [facility] 02-28-2022 12:48-0500 Systolic blood pressure 132 mm[Hg] Scott Mcallister MD Work Phone: [facility] 01-05-2022 11:19-0400 Diastolic blood pressure 79 mm[Hg] DO Justin Francisco Work Phone: [facility] 01-05-2022 11:19-0400 Heart rate 75 /min DO Justin Francisco Work Phone: [facility] 01-05-2022 11:19-0400 Respiratory rate 18 /min DO Justin Francisco Work Phone: [facility] 01-05-2022 11:19-0400 SaO2% (BldA) [Mass fraction] 97 % DO Justin Francisco Work Phone: [facility] 01-05-2022 11:19-0400 Systolic blood pressure 126 mm[Hg] DO Justin Francisco Work Phone: [facility] 01-05-2022 08:17-0400 Body temperature 97.5 [degF] DO Justin Francisco Work Phone: [facility] 01-05-2022 04:44-0400 Body weight 79.8 kg DO Justin Francisco Work Phone: [facility] 01-04-2022 11:34-0400 Body height 157.48 cm DO Justin Francisco Work Phone: [facility] 01-03-2022 17:04-0400 Diastolic blood pressure 110 mm[Hg] DO Justin Francisco Work Phone: [facility] 01-03-2022 17:04-0400 Heart rate 88 /min DO Justin Francisco Work Phone: [facility] 01-03-2022 17:04-0400 Respiratory rate 20 /min DO Justin Francisco Work Phone: [facility] 01-03-2022 17:04-0400 SaO2% (BldA) [Mass fraction] 97 % DO Justin Francisco Work Phone: [facility] 01-03-2022 17:04-0400 Systolic blood pressure 180 mm[Hg] DO Justin Francisco Work Phone: [facility] 01-03-2022 14:43-0400 Body height 157.48 cm DO Justin Francisco Work Phone: [facility] 01-03-2022 14:43-0400 Body weight 80 kg DO Justin Francisco Work Phone: [facility] 01-03-2022 13:59-0400 Body temperature 98.5 [degF] DO Justin Francisco Work Phone: [facility] 10-14-2021 13:13-0400 Body height 157.5 cm Scott Mcallister MD Work Phone: [facility] 10-14-2021 13:13-0400 Body mass index (BMI) [Ratio] 32.92 kg/m2 Scott Mcallister MD Work Phone: [facility] 10-14-2021 13:13-0400 Body weight 81.65 kg Scott Mcallister MD Work Phone: [facility] 10-14-2021 13:13-0400 Diastolic blood pressure 85 mm[Hg] Scott Mcallister MD Work Phone: [facility] 10-14-2021 13:13-0400 Heart rate 76 /min Scott Mcallister MD Work Phone: [facility] 10-14-2021 13:13-0400 Respiratory rate 16 /min Uprani Mcallister MD Work Phone: [facility] 10-14-2021 13:13-0400 SaO2% (BldA) [Mass fraction] 95 % Scott Mcallister MD Work Phone: [facility] 10-14-2021 13:13-0400 Systolic blood pressure 125 mm[Hg] Scott Mcallister MD Work Phone: [facility] 07-19-2021 12:55-0400 Body height 157.5 cm Scott Mcallister MD Work Phone: [facility] 07-19-2021 12:55-0400 Body mass index (BMI) [Ratio] 32.92 kg/m2 Scott Mcallister MD Work Phone: [facility] 07-19-2021 12:55-0400 Body weight 81.65 kg Scott Mcallister MD Work Phone: [facility] 07-19-2021 12:55-0400 Diastolic blood pressure 86 mm[Hg] Scott Mcallister MD Work Phone: [facility] 07-19-2021 12:55-0400 Heart rate 67 /min Scott Mcallister MD Work Phone: [facility] 07-19-2021 12:55-0400 Respiratory rate 16 /min Scott Mcallister MD Work Phone: [facility] 07-19-2021 12:55-0400 SaO2% (BldA) [Mass fraction] 98 % Scott Mcallister MD Work Phone: [facility] 07-19-2021 12:55-0400 Systolic blood pressure 126 mm[Hg] Scott Mcallister MD Work Phone: [facility] 09-24-2020 13:12-0400 Body height 157.5 cm Scott Mcallister MD Work Phone: [facility] 09-24-2020 13:12-0400 Body mass index (BMI) [Ratio] 32.92 kg/m2 Scott Mcallister MD Work Phone: [facility] 09-24-2020 13:12-0400 Body weight 81.65 kg Scott Mcallister MD Work Phone: [facility] 09-24-2020 13:12-0400 Diastolic blood pressure 89 mm[Hg] Scott Mcallister MD Work Phone: [facility] 09-24-2020 13:12-0400 Heart rate 67 /min Scott Mcallister MD Work Phone: [facility] 09-24-2020 13:12-0400 Respiratory rate 16 /min Scott Mcallister MD Work Phone: [facility] 09-24-2020 13:12-0400 SaO2% (BldA) [Mass fraction] 95 % Scott Mcallister MD Work Phone: [facility] 09-24-2020 13:12-0400 Systolic blood pressure 146 mm[Hg] Scott Mcallister MD Work Phone: [facility] 07-27-2020 12:59-0400 Body height 165.1 cm Scott Mcallister MD Work Phone: [facility] 07-27-2020 12:59-0400 Body mass index (BMI) [Ratio] 22.63 kg/m2 Scott Mcallister MD Work Phone: [facility] 07-27-2020 12:59-0400 Body weight 61.69 kg Scott Mcallister MD Work Phone: [facility] 05-17-2020 13:11-0500 BP Diastolic 103 mm[Hg] [facility] 05-17-2020 13:11-0500 BP Systolic 163 mm[Hg] [facility] 05-17-2020 13:11-0500 Height 157.5 cm [facility] 05-17-2020 13:11-0500 Pulse (Heart Rate) 66 /min [facility] 05-17-2020 13:11-0500 Pulse Oximetry 96 % [facility] 05-17-2020 13:11-0500 Respiratory Rate 16 /min [facility] Encounters Encounter Date Encounter Type Care Provider Facility Start: 05-30-2022 End: 05-30-2022 ambulatory [facility] Start: 05-30-2022 End: 05-30-2022 Office outpatient visit 15 minutes Scott Mcallister MD Work Phone: [facility] Comment on above: Bipolar 1 disorder, mixed, mild (HCC) (Primary Dx); Insomnia due to mental disorder; VICKIE (generalized anxiety disorder) Start: 05-10-2022 Refill Scott Mcallister MD Work Phone: [facility] Start: 03-30-2022 Refill Scott Mcallister MD Work Phone: [facility] Comment on above: 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; VICKIE (generalized anxiety disorder) Start: 02-28-2022 End: 02-28-2022 ambulatory [facility] Start: 02-28-2022 End: 02-28-2022 Office outpatient visit 25 minutes Scott Mcallister MD Work Phone: [facility] Comment on above: Bipolar 1 disorder, depressed, mild (HCC) (Primary Dx); Insomnia due to mental disorder; VICKIE (generalized anxiety disorder) Start: 01-19-2022 End: 01-20-[address] VICKY ARNETT Facility:[facility] Start: 01-09-2022 End: 01-09-2022 ambulatory UPRANI MCALLISTER [facility] Start: 01-03-2022 End: 01-05-2022 ambulatory Vicky Arnett Facility:[facility] Start: 01-03-2022 End: 01-05-2022 Evaluation and management of inpatient DO Justin Francisco Work Phone: [facility] Start: 01-03-2022 End: 01-05-2022 observation encounter DO Justin Francisco Work Phone: [facility] Work Phone: Start: 10-27-2021 End: 10-28-2021 ambulatory JELLYRANI ESVIN Facility:[facility] Start: 10-14-2021 End: 10-14-2021 ambulatory UPRANI MCALLISTER [facility] Start: 10-14-2021 End: 10-14-2021 Office outpatient visit 15 minutes Scott Mcallister MD Work Phone: [facility] Comment on above: Bipolar 1 disorder, depressed, moderate (HCC) (Primary Dx); Insomnia due to mental disorder; VICKIE (generalized anxiety disorder) Start: 10-05-2021 ambulatory SCOTT [facility]ALLISTER [facility] Start: 07-22-2021 ambulatory [facility]NETT [facility] Start: 07-19-2021 End: 07-19-2021 ambulatory VICKY SOHAIL [facility] Start: 07-19-2021 End: 07-19-2021 Office outpatient visit 15 minutes Scott Mcallister MD Work Phone: [facility] Comment on above: Bipolar 1 disorder, depressed, moderate (HCC) (Primary Dx); Insomnia due to mental disorder; VICKIE (generalized anxiety disorder) Start: 05-16-2021 Refill Sarah Leigh MA [facility] Comment on above: 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 (Primary Dx) 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 Start: 03-30-2021 Encounter for genera l adult medical examination without abnormal findings DR VICKY ARNETT [facility] Start: 03-29-2021 Refill Nellie Sky MA [facility] Start: 03-22-2021 End: 03-23-[address] VICKY ARNETT Facility:[facility] Start: 03-22-2021 End: 03-23-2021 Encounter for general adult medical examination without abnormal findings DR VICKY ARNETT Facility:[facility] Start: 12-07-2020 Refill Lidia hernandez LPN [facility] Comment on above: 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; VICKIE (generalized anxiety disorder) Start: 09-24-2020 End: 09-24-2020 Office outpatient visit 25 minutes Uprani Mcallister MD Work Phone: [facility] Comment on above: Bipolar 1 disorder, depressed, mild (HCC) (Primary Dx); Insomnia due to mental disorder; VICKIE (generalized anxiety disorder) Start: 08-31-2020 End: 08-31-2020 Refill Lidia Mahoney LPN [facility] Comment on above: 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; VICKIE (Generalized Anxiety Disorder) Start: 07-27-2020 End: 07-27-2020 Phys/qhp telephone evaluation 11-20 min Scott Mcallister MD Work Phone: [facility] Comment on above: Bipolar 1 disorder, depressed, mild (HCC) (Primary Dx); Insomnia due to mental disorder; VICKIE (Generalized Anxiety Disorder) Start: 05-17-2020 End: 05-17-2020 Office outpatient visit 15 minutes Uprani Mcallister Work Phone: [facility] Comment on above: Bipolar 1 disorder, depressed, mild (HCC) (Primary Dx); VICKIE (Generalized Anxiety Disorder); Insomnia due to mental disorder Start: 04-06-2020 End: 04-06-2020 Phys/qhp telephone evaluation 11-20 min Scott Mcallister Work Phone: [facility] Comment on above: Bipolar 1 disorder, depressed, mild (HCC); VICKIE (Generalized Anxiety Disorder); Insomnia due to mental disorder Procedures Date Procedure Procedure Detail Performing Clinician Start: 01-03-2022 CT of head without contrast DO Justin Francisco Work Phone: SARS Antigen (LFIA) DO Ermias Francisco Work Phone: Urine culture DO Justin Grant on Work Phone: Urine culture DO Justin Grant on Work Phone: Plan of Treatment Date Care Activity Detail Author Start: 05-30-2022 End: 05-30-2022 Patient encounter procedure 05/30/2022 Office Visit Psychiatry Scott Mcallister MD [address] [place] [address] [facility] Start: 01-09-2022 End: 01-09-2022 Patient encounter procedure 01/09/2022 Office Visit Psychiatry Scott Mcallister MD [address] [place] [address] [facility] Start: 01-05-2022 [facility] Start: 01-04-2022 Comprehensive metabo lic 2000 panel - Serum or Plasma [facility] Start: 01-04-[address] [facility] Start: 01-04-2022 Magnesium measurement F [facility] Start: 01-04-2022 Phosphate [Mass/volu me] in Serum or Plasma [facility] Start: 01-04-2022 [facility] Start: 01-03-[address] [facility] Start: 01-03-2022 Hospital admission [facility] Start: 01-03-2022 [facility] Start: 12-01-2021 Influenza vaccination [facility] Start: 10-14-2021 End: 10-14-2021 Patient encounter procedure 10/14/2021 Office Visit Psychiatry Scott Mcallister MD [address] [facility] [address] [place] [address] [facility] Start: 07-28-2021 COVID-19 Vaccine (4 - Booster for Pfizer series) COVID-19 Vaccine (4 - Booster for Pfizer series) [facility] Start: 07-15-2021 End: 07-15-2021 Patient encounter procedure 07/15/2021 Office Visit Psychiatry Scott Mcallister MD [address] [facility] [address] [place] [address] [facility] Start: 05-24-2021 COVID-19 Vaccine (4 - Booster for Pfizer series) COVID-19 Vaccine (4 - Booster for Pfizer series) [facility] Start: 04-18-2021 End: 04-18-2021 Patient encounter procedure 04/18/2021 Office Visit Scott Moy MD [address] [facility] [address] [place] [address] [facility] Start: 01-12-2021 COVID-19 Vaccine (3 - Booster for Pfizer series) COVID-19 Vaccine (3 - Booster for Pfizer series) [facility] Start: 01-03-2021 End: 01-03-2021 Patient encounter procedure [facility] Start: 12-01-2020 Influenza vaccination [facility] Start: 09-24-2020 End: 09-24-2020 Patient encounter procedure 09/24/2020 Office Visit Psychiatry Scott Mcallister MD [address] [facility] [address] [place] [address] [phone] [facility] Start: 09-14-2020 End: 09-14-2020 Patient encounter procedure 09/14/2020 Office Visit Scott Moy MD [address] [facility] [address] [place] [address] [phone] [facility] Start: 09-10-2020 End: 09-10-2020 Office Visit 09/10/2020 Office Visit Psychiatry Scott Mcallister MD [facility] [address] [place] [id number] [phone] [facility] Start: 12-02-2019 Influenza vaccinatio n given Sequential Influenza Vaccine (#1) [facility] Start: 2012 Administration of he rpes zoster vaccine Zoster Vaccines (1 of 2) [facility] Start: 2012 Screening for malign ant neoplasm of colon [facility] Start: 2002 Screening for malign ant neoplasm of breast Mammogram [facility] Start: 1980 Hepatitis C antibody , confirmatory test Hepatitis C Screening [facility] Start: 1980 Hepatitis C screening Hepatitis C Sc reening [facility] Start: 1978 COVID-19 Vaccine (1 of 2) COVID-19 Vaccine (1 of 2) [facility] Start: 1977 HIV screening HIV Screening [facility] Start: 1965 History and physical examination, annual for health maintenance Wellness Visit [facility] Start: 1962 Screening for malign ant neoplasm of cervix Pap Smear [facility] Start: 1962 Screening for malign ant neoplasm of colon [facility] Start: 1962 [facility]: [facility] Tetanus vaccination Tetanus: Every 1 0yrs [facility] Bacteria identified in Urine by Culture [facility] Work Phone: End: 10-14-2022 Complete blood count with white cell differential, manual CBC and Differential Lab Routine Bipolar 1 disorder, depressed, moderate (HCC) 1 Occurrences starting 10/14/2021 until 10/14/2022 [facility] Comment on above: 1 Occurrences starti ng 10/14/2021 until 10/14/2022 End: 10-14-2022 Comprehensive metabolic 2000 panel - Serum or Plasma Comprehensive Metabolic Panel Lab Routine Bipolar 1 disorder, depressed, moderate (HCC) 1 Occurrences starting 10/14/2021 until 10/14/2022 [facility] Work Phone: Comment on above: 1 Occurrences starti ng 10/14/2021 until 10/14/2022 End: 10-14-2022 Lipid 1996 panel - Serum or Plasma Lipid Panel Lab Routine Bipolar 1 disorder, depressed, moderate (HCC) 1 Occurrences starting 10/14/2021 until 10/14/2022 [facility] Comment on above: 1 Occurrences starti ng 10/14/2021 until 10/14/2022 Patient Education High Blood Pre ssure (DC) Urinary Tract Infection, Adult (DC) Acute Kidney Injury (DC) Cefuroxime Hydralazine [facility] Work Phone: Patient referral [facility] Work Phone: Immunizations Immunization Date Immunization Notes Care Provider Aly oglesby 01-05-2022 influenza, injectabl e, quadrivalent, preservative free DO Justin Francisco Work Phone: [facility] 03-29-2021 COVID-19 mRNA, Comirnaty (Pfizer) DO Justin Francisco Work Phone: [facility] 07-13-2020 COVID-19 mRNA, Comirnaty (Pfizer) DO Justin Griffinton Work Phone: [facility] 06-21-2020 COVID-19 mRNA, Comirnaty (Pfizer) DO Justin Francisco Work Phone: [facility] Payers Date Payer Category Payer Self-pay 2014 Unknown [id number] 2014 Unknown [employer] PPO [id number] 2014-Present [phone] [address] [place] [address] [id number] 1962 Unknown [id number] 1962 Unknown [id number] 1962 Unknown [id number] 1962 Unknown [id number] 1962 Unknown [id number] 1962 Unknown [id number] 1962 Unknown [id number] 1962 Unknown [id number] 1962 Unknown [id number] 1962 Unknown [id number] 1962 Unknown [id number] 1959 Unknown [id number] Unknown [id number] Social History Date Type Detail Facility Start: 04-06-2020 End: 01-04-2022 Tobacco smoking status NHIS Former smoker [facility] Start: 04-06-2020 End: 09-24-2020 Tobacco use and exposure Never used [facility] Start: 04-06-2020 End: 05-30-2022 Alcohol intake Ex-drinker (finding) [facility] Start: 1960 Sex Assigned At Not on file [facility] Exposure to SARS-CoV -2 (event) Unable to assess [facility] Start: 07-09-2021 End: 05-24-2022 Exposure to SARS-CoV-2 (event) Not sure [facility] Start: 01-03-2022 Tobacco smoking stat us NHIS Never smoked tobacco (finding) [facility] Start: 1960 Sex Assigned At Female F [facility] History of tobacco use Current smoker [facility] Start: 05-30-2022 History of Social function [facility] Start: 05-30-2022 Tobacco use panel [facility] Goals Date Patient Goal Desired Activity /State Functional Status Date Assessment Result Facility 01-05-2022 Functional status Patient at Baseline [facility] Work Phone: Mental Status Date Assessment Result Facility 01-05-2022 Cognitive function Cognitive Sta tus Patient at Baseline [facility] Work Phone: Clinical Notes 07-27-2020 to 05-30-2022 Scott Mcallister MD - 05/30/2022 2:16 PM ESTUprani Mcallister MD - 03/13/2022 11:29 AM EST Note Date & Type Note Facility 05-30-2022 History of Presen t illness Narrative [facility] PROGRESS NOTE 05/30/2022: Kathy Porter, a 61 y.o. female, for psychotropic medication management follow-up visit Interval History: Patient is seen in office her . Patient reports she is feeling irritable and depressed most days. She also endorses feelings of helplessness and worthlessness. But denies feeling hopeless. Patient reports mildly increased racing thoughts with distractibility and mild psychomotor agitation. She has been feeling more restless and tense. Denies any ongoing active or passive suicidal ideation. She is having difficulty falling asleep but has been able to stay asleep. Reports mild anhedonia. Appetite is so-so. Patient continues struggle with low motivation and energy. Still feels fatigued during the day. There was some improvement from Zyprexa trial. Since he was some benefit we will optimize treatment. Interpersonal issues were discussed and support was provided Medication assessed: Compliant with medications, denies any side effects and optimize treatment Goals and objectives of treatment: Improve and stabilize mood Improve anxiety control Improve interpersonal and social functioning Treatment compliance The following portions of the patient's history were reviewed and updated as appropriate: allergies, current medications, past family history, past medical history, past social history, past surgical history and problem list. Review of Systems: Ophthalmic ROS: negative ENT ROS: negative Allergy and Immunology ROS: negative Hematological and Lymphatic ROS: negative Endocrine ROS: negative Respiratory ROS: no cough, shortness of breath, or wheezing Cardiovascular ROS: no chest pain or dyspnea on exertion Gastrointestinal ROS: no abdominal pain, change in bowel habits, or black or bloody stools Genito-Urinary ROS: no dysuria, trouble voiding, or hematuria Musculoskeletal ROS: negative Neurological ROS: Dermatological ROS: negative AIMS exam completed: No abnormal involuntary movements noted PSYCHIATRIC EXAM: Grooming & Hygiene: casually dressed and age appropriate General Behavior: And engaged, fleeting eye contact, Psychomotor Activity: Mild psychomotor agitation Speech: Mildly hyperverbal Flow to Thought: racing thoughts Thought Associations: Intact Content of Thought: No evidence of suicidal ideations / homicidal ideations / delusions / obsessions Mood: Irritable, depressed Affect: Medical Insight: fair Judgment: fair Orientation: alert and oriented to person, place, time Memory: Recent intact Attention: Adequate Concentration: Adequate Language: Average Fund of Knowledge: Average ASSESSMENT AND PLAN: Follow-up plan was discussed with patient. Impression/ Plan: Bipolar disorder, type I, mixed, mild to moderate generalized anxiety disorder Global assessment of functionin-63 Recommendations: Treatment Plan: Pharmacological management: Alternative medication plans were discussed with the patient/guardian. All relevant side effects and potential adverse effects were discussed with the patient/guardian. Standard cautions and potential benefits were discussed. FDA label and OFF label uses of medications were discussed. Patient/Guardian consented to the continuation of the following: Continue Wellbutrin XL 300 mg p.o. daily Increase Zyprexa to 15 mg p.o. daily at bedtime Continue Klonopin 0.5 mg 3 times daily as needed anxiety Will monitor side effects and progress and adjust medications appropriately. Crisis Intervention plan was discussed and agreed upon. Patient/Guardian will call 911 in case of emergency. Emergency contact information was provided to the patient/guardian. Laboratory and other tests: See orders. Psychotherapy: Continue with same provider ( Rocky @ [facility] in [place]) Follow up as scheduled or return early if needed. School or community referral: None Treatment Goals and Objectives discussed. Other Referrals/Consults/Psychological Testing: None Scott Mcallister documented in this encounter [facility] 03-13-2022 History of Presen t illness Narrative BEHAVIORAL HEALTH PSYCHIATRIC PROGRESS NOTE 02/28/2022 Kathy Porter, a 61 y.o. female, for psychotropic medication management follow-up visit Interval History: Patient is seen in office her . reports patient is started to again show improvement in her moods and behaviors. Patient also reports she is having more fair days and is feeling significantly less down and depressed. Patient denies any ongoing feelings of hopelessness. Patient reports mild feelings of helplessness and worthlessness but overall intensity is down as compared to how she was feeling last visit. She is also sleeping significantly better and has had no issues falling or staying asleep. Patient does not feel drowsy or tired during the day. Patient has not been taking trazodone and zolpidem and we will discontinue these medications. Zyprexa has certainly helped stabilize and improve patient's moods as well as sleep. Then she denies any side effects. She is not endorsing any irritability reports minimal to no racing thoughts and also endorses improved attention span and concentration as compared to last visit. She denies any ongoing active or passive suicidal ideation. Patient is less withdrawn and denies feeling empty or lonely. Patient's affect was also fair as compared to how she was during the last visit. She reports she has started to enjoy some of her fun things. Currently she is not endorsing any psychotic features. She denies any ongoing drug or alcohol abuse. Anxiety control is also improved as compared to last time. Patient reports minimal breakthrough anxiety. She is taking her Klonopin at least twice a day for now. Medication assessed: Patient started the trial of Zyprexa well. Response is fair, we will optimize and adjust medications. Discontinue zolpidem and trazodone Goals and objectives of treatment: Improve and stabilize mood Improve anxiety control Improve interpersonal and social functioning Treatment compliance The following portions of the patient's history were reviewed and updated as appropriate: allergies, current medications, past family history, past medical history, past social history, past surgical history and problem list. Review of Systems: Ophthalmic ROS: negative ENT ROS: negative Allergy and Immunology ROS: negative Hematological and Lymphatic ROS: negative Endocrine ROS: negative Respiratory ROS: no cough, shortness of breath, or wheezing Cardiovascular ROS: no chest pain or dyspnea on exertion Gastrointestinal ROS: no abdominal pain, change in bowel habits, or black or bloody stools Genito-Urinary ROS: no dysuria, trouble voiding, or hematuria Musculoskeletal ROS: negative Neurological ROS: Dermatological ROS: negative AIMS exam completed: No abnormal involuntary movements noted PSYCHIATRIC EXAM: Grooming & Hygiene: casually dressed and age appropriate General Behavior: Needs redirections to engage, fleeting eye contact, Psychomotor Activity: Psychomotor agitation Speech: Hesitant Flow to Thought: Increasing racing thoughts Thought Associations: Intact Content of Thought: No evidence of suicidal ideations / homicidal ideations / delusions / obsessions Mood: okay Affect: Restricted Insight: fair Judgment: fair Orientation: alert and oriented to person, place, time Memory: Recent intact Attention: Adequate Concentration: Adequate Language: Average Fund of Knowledge: Average ASSESSMENT AND PLAN: Follow-up plan was discussed with patient. Impression/ Plan: Bipolar disorder, type I, depressed, mild generalized anxiety disorder Global assessment of functionin Recommendations: Treatment Plan: Pharmacological management: Alternative medication plans were discussed with the patient/guardian. All relevant side effects and potential adverse effects were discussed with the patient/guardian. Standard cautions and potential benefits were discussed. FDA label and OFF label uses of medications were discussed. Patient/Guardian consented to the continuation of the following: Continue Wellbutrin XL 300 mg p.o. daily Increase Zyprexa to 10 mg p.o. daily at bedtime Discontinue Depakote continue discontinue Desyrel and zolpidem Continue Klonopin 0.5 mg 3 times daily as needed anxiety Will monitor side effects and progress and adjust medications appropriately. will update in 1 week Crisis Intervention plan was discussed and agreed upon. Patient/Guardian will call 911 in case of emergency. Emergency contact information was provided to the patient/guardian. Laboratory and other tests: See orders. Psychotherapy: Continue with same provider ( Rocky @ [facility] in [place]) Follow up as scheduled or return early if needed. School or community referral: None Treatment Goals and Objectives discussed. Other Referrals/Consults/Psychological Testing: None Scott Mcallister documented in this encounter [facility] 01-05-2022 Discharge summary Note Date/Time January 05, 2022 12:08pm [facility] [address] [place] [address] Discharge Summary Signed Patient: Kathy Porter MR#: [id number] : 1960 Acct:[id number] Age/Sex: 61 / F Adm Date: 2 Loc: Room: [address] [place] [address]: Henry Burnett MD Copies to: MD Henry Silver MD~ Providers Date of Discharge: 01/05/22 Discharging Provider: Henry Burnett Primary Care Provider: Vicky Arnett Consults: 01/03/22 17:38 Consult to Psychiatry Routine Discharge Diagnosis (1) Acute encephalopathy: (2) Hypertensive urgency: (3) UTI (urinary tract infection): (4) NAEEM (acute kidney injury): Final Diagnosis Final Discharge Diagnosis: As above Summary Hospital Course Hospital course: Patient is a 61 year old female with PMH of DM, HTN, and extensive psychiatric history of anxiety and bipolar disorder with multiple medications been tried in the past and ECTs presented with vague confusion of 1 day duration which was worsening. Also noted to have some tremors and restlessness in her feet. Patient was admitted and further evaluation. She was found to have UTI. She was started empirically on Rocephin on admission. Urine culture growing E. coli. Blood pressure has improved with addition of another agent, hydralazine 25mg 3 times a day. NAEEM has improved. Mental status also has improved and patient reports today that she is feeling much better . Patient remained hemodynamically stable, blood pressure controlled, seems back to her baseline. We will transition to Ceftin treatment of UTI as directed. Advised to follow-upwith primary doctor for blood pressure control and adjustment of medications. Psychiatry team was also consulted and recommended to continue current regimen. Advised to follow-up with her psychiatry as outpatient. Patient stable for discharge with instructions and follow-ups as indicated. Condition Condition at Discharge: Stable Time Spent with Patient Time spent providing/coordinating discharge services (# min): 40 Diagnostic Studies Completed and Pending Studies Labs on day of discharge: 01/05/22 06:56: Corrected WBC 5.3, Uncorrected WBC Count 5.3, RBC 4.25, Hgb 12.8, Hct 38.6, MCV 90.6, MCH 30.2, MCHC 33.3, RDW 16.2 H, Plt Count 186, MPV 8.9, Neut % (Auto) 50.3, Lymph % (Auto) 33.1, [place] % (Auto) 12.5, Eos % (Auto) 3.5, Baso % (Auto) 0.6, Neut # (Auto) 2.6, Lymph # (Auto) 1.7, [place] # (Auto) 0.7, Eos # (Auto) 0.2, Baso # (Auto) 0.0, Nucleated RBC % (auto) 0.1 01/05/22 06:55: PHA Creatinine Clear 51.99, Sodium 138, Potassium 3.8, Chloride 105, Carbon Dioxide 25.2, Anion Gap 11.6, BUN 11, Creatinine 1.14 H, Est GFR ( Amer) 59, Est GFR (Non-Af Amer) 49, Glucose 96, Calcium 9.1, Total Bilirubin 0.4, AST 13, ALT 11, Alkaline Phosphatase 33, Total Protein 5.5 L, Albumin3.0 L, Globulin 2.5, Albumin/Globulin Ratio 1.2 Exam Physical Exam Vital Signs: Temp Pulse Resp BP Pulse Ox O2 Del Method 97.5 F L 75 18 126/79 97 Room Air 01/05/22 08:17 01/05/22 11:19 01/05/22 11:19 01/05/22 11:19 01/05/22 11:19 01/05/22 11:19 Narrative: Const General: cooperative, in no acute distress HEENT Head: normal to inspection Nose: external nose normal Mouth: oral mucosae normal and lip normal Eyes Conjunctivae: conjunctivae normal Neck Neck: normal visual inspection Chest inspection: normal inspection of the chest Resp Effort & Inspection: normal respiratory effort, not labored, no respiratory distress Auscultation: clear to auscultation b/l, no crackles, no wheezes Cardio Rate: normal rate Rhythm: regular rhythm Heart Sounds: S1 normal, S2 normal and no murmurs GI Inspection: non-distended Palpation: soft, not firm and nontender Neuro General: alert, awake and oriented x3. No obvious focal deficit. No tremors noted. Extrem General: no cyanosis, no pedal edema Psych Appearance: normal Discharge Plan Discharge Plan Patient Disposition: Home Activity: No Activity Restriction Diet: Diabetic and Low-Sodium Additional Instructions: -Take Ceftin antibiotics treatment for UTI for 5 more days -Take new blood pressure medicine Hydralazine 25 mg three times a day. Hold if your BP <100/60 -Follow up with your primary doctor for blood pressure control and adjustment inmedications if needed -Follow up with psychiatric doctor Instructions: High Blood Pressure (DC), Urinary Tract Infection, Adult (DC), Acute Kidney Injury (DC) Prescriptions: New hydralazine 25 mg Tablet 25 mg PO TID 30 Days Qty: 90 0RF cefuroxime axetil 250 mg tablet 250 mg PO BID 5 Days Qty: 10 0RF Continued bupropion HCl 150 mg Tablet Sustained-Release 12 Hr 150 mg PO DAILY.PC.LUNCH Label Comments: every afternoon trazodone 50 mg Tablet 50 mg PO QHS metoprolol tartrate 100 mg Tablet 100 mg PO BID clonazepam 0.5 mg Tablet 0.5 mg PO DAILY.PC.LUNCH Label Comments: every night Rx Instructions: administer 30 minutes before bedtime simvastatin 10 mg Tablet 10 mg PO HS divalproex [Depakote] 500 mg Tablet,Delayed Release (Dr/Ec) 500 mg PO DAILY.AC SUPPER amlodipine 10 mg Tablet 10 mg PO DAILY.AC SUPPER pantoprazole 40 mg Tablet,Delayed Release (Dr/Ec) 40 mg PO DAILY metformin 1,000 mg Tablet 1,000 mg PO BID irbesartan 300 mg Tablet 300 mg PO HS doxazosin 2 mg Tablet 2 mg PO BID clonazepam 0.25 mg Tablet,Disintegrating 0.25 mg PO HS Label Comments: every afternoon bupropion HCl 300 mg Tablet Extended Release 24 Hr 300 mg PO QAM Label Comments: every morning Viberzi 100 mg Tablet 100 mg PO HS Rx Instructions: must administer with a meal/food cholecalciferol (vitamin D3) [Vitamin D3] 25 mcg (1,000 unit) Capsule 25 mcg PO DAILY Discontinued oxybutynin chloride 5 mg Tablet 5 mg PO TID Follow Up: Dr. Scott Mcallister [Other] Vicky Arnett MD [Primary Care Provider] - 01/09/22 3:30 pm (You have been scheduled for a follow up appointment for the following date and time, please call to reschedule if needed.) Documented By: Henry Burnett MD 01/05/22 12 02 Signed By: <Electronically signed by Henry Burnett MD> 01/05/22 1201 [facility] Work Phone: [phone]) 704-298410-05-2022 Progress note Author Henry Burnett [facility] January 04, 2022 4:20pm Note Date/Time January 04, 2022 4: 20pm [facility] [address] [place] [address] Hospitalist Progress Note Signed Patient: Kathy Porter MR#: [id number] : 1960 Acct:[id number] Age/Sex: 61 / F Adm Date: 2 Loc: Room: [address] [place] [address] Type: ADM INOo Attending Dr: Henry Burnett MD Copies to: ~ Date of Service: 01/04/2022 Subjective Subjective Narrative: Patient was seen and examined at bedside. Patient reports feeling better today. However, still sort of confused. Remained stable overnight. no active new complaints today. Exam Physical Exam Vital Signs: Temp Pulse Resp BP Pulse Ox O2 Del Method 98.3 F 75 18 164/98 H 98 Room Air 01/04/22 11:37 01/04/22 11:37 01/04/22 11:37 01/04/22 11:37 01/04/22 11:37 01/04/22 11:37 Narrative: Const General: cooperative, in no acute distress HEENT Head: normal to inspection Nose: external nose normal Mouth: oral mucosae normal and lip normal Eyes Conjunctivae: conjunctivae normal Neck Neck: normal visual inspection Chest inspection: normal inspection of the chest Resp Effort & Inspection: normal respiratory effort, not labored, no respiratory distress Auscultation: clear to auscultation b/l, no crackles, no wheezes Cardio Rate: normal rate Rhythm: regular rhythm Heart Sounds: S1 normal, S2 normal and no murmurs GI Inspection: non-distended Palpation: soft, not firm and nontender Neuro General: alert, awake and oriented x3. No obvious focal deficit Extrem General: no cyanosis, no pedal edema Psych Appearance: normal Objective Lab Results CBC & Chem 7: 10/05/22 06:10 01/04/22 06:10 Microbiology Results Microbiology 01/03/22 14:20 Clean Void Midstream Urine Culture - Preliminary Gram Negative Bacilli 01/03/22 16:34 Nasal SARS Antigen (LFIA) - Final Meds Allergies and Active Meds Allergies Sulfa (Sulfonamide Antibiotics) Allergy (Verified 01/03/22 13:59) Rash Active Meds: Active Medications Generic Name Dose Route Start Last Admin Trade Name Freq PRN Reason Stop Dose Admin Acetaminophen 650 mg 01/03/22 16:44 01/04/22 02:15 Acetaminophen 325 Mg Tablet PO 01/03/23 16:43 650 mg Q6HR PRN Administration Pain Scale 1 - 3 or fever Amlodipine Besylate 10 mg 01/03/22 17:05 01/04/22 09:41 Amlodipine 10 Mg Tablet PO 01/03/23 17:04 10 mg DAILY CARMELO Administration Atorvastatin Calcium 5 mg 01/03/22 22:00 01/03/22 21:44 Atorvastatin 10 Mg Tablet PO 01/03/23 21:59 5 mg HS CARMELO Administration Bupropion HCl 150 mg 01/04/22 13:00 01/04/22 12:48 Bupropion 150 Mg Tab.Er.24h PO 01/04/23 12:59 150 mg DAILY.PC.LUNCH CARMELO Administration Bupropion HCl 300 mg 01/04/22 09:00 01/04/22 09:41 Bupropion 300 Mg Tab.Er.24h PO 01/04/23 08:59 300 mg QAM CARMELO Administration Clonazepam 0.25 mg 01/03/22 22:00 01/03/22 21:44 Clonazepam 0.25 Mg Tablet PO 01/03/23 21:59 0.25 mg HS CARMELO Administration Clonazepam 0.5 mg 01/04/22 13:00 01/04/22 12:48 Clonazepam 0.5 Mg Tablet PO 07/03/22 12:59 0.5 mg DAILY.PC.LUNCH CARMELO Administration Divalproex Sodium 500 mg 01/04/22 16:30 Divalproex Sodium 500 Mg Tablet.Dr PO 01/04/23 16:29 DAILY.AC SUPPER CARMELO Docusate Sodium 100 mg 01/03/22 16:44 Docusate 100 Mg Capsule PO 01/03/23 16:43 BID PRN Constipation Doxazosin Mesylate 2 mg 01/03/22 21:00 01/04/22 09:41 Doxazosin 2 Mg Tablet PO 01/03/23 20:59 2 mg BID CARMELO Administration Enoxaparin Sodium 40 mg 01/04/22 10:00 01/04/22 09:44 Enoxaparin 40 Mg/0.4 Ml Syringe SUBCUT 01/04/23 09:59 40 mg DAILY@1000 CARMELO Administration Ceftriaxone Sodium 1 gm in 50 mls @ 100 mls/hr 01/03/22 17:30 01/03/22 21:49 Rocephin IV Infused Q24H CARMELO Infusion Influenza Virus Vaccine Quadrival 0.5 ml 01/04/22 18:33 Flu Vac Quad (36mon+)Pf 0.5 Ml Syringe [id number] IM 01/04/22 18:34 .ONCE ONE Irbesartan 300 mg 01/03/22 21:00 01/04/22 09:40 Irbesartan 300 Mg Tablet PO 01/03/23 20:59 300 mg DAILY CARMELO Administration Labetalol HCl 5 mg 01/03/22 16:44 Labetalol 100 Mg/20 Ml Vial IV-PUSH 01/03/23 16:43 Q4H PRN Hypertension Metformin HCl 1,000 mg 01/04/22 08:00 01/04/22 09:41 Metformin 500 Mg Tablet PO 01/04/23 07:59 1,000 mg BID.WITH.MEALS CARMELO Administration Metoprolol Tartrate 100 mg 01/03/22 21:00 01/04/22 09:41 Metoprolol Tartrate 100 Mg Tablet PO 01/03/23 20:59 100 mg Q12HR CARMELO Administration Non-Formulary Medication 100 mg 01/03/22 22:00 Eluxadoline [Viberzi] PO 01/03/23 21:59 HS CARMELO Omeprazole 20 mg 01/04/22 09:00 01/04/22 09:41 Omeprazole 20 Mg Capsule.Dr PO 01/04/23 08:59 20 mg DAILY CARMELO Administration Prochlorperazine Edisylate 5 mg 01/03/22 16:44 01/04/22 10:09 Prochlorperazine Edisylate 10 Mg/2 Ml Vial IM 01/03/23 16:43 5 mg Q4H PRN Administration Nausea And Vomiting Sodium Chloride 0 ml 01/03/22 13:58 01/03/22 20:57 Sodium Chloride 0.9 % 10 Ml Syringe IV-PUSH 01/03/23 13:57 10 ml PRN PRN Administration Flush Trazodone HCl 50 mg 01/03/22 22:00 01/03/22 21:44 Trazodone 50 Mg Tablet PO 01/03/23 21:59 50 mg QHS CARMELO Administration Vitamin D 25 mcg 01/04/22 09:00 01/04/22 09:41 Cholecalciferol 25 Mcg (1,000 Units) Tablet PO 01/04/23 08:59 25 mcg DAILY CARMELO Administration A&P - Hospitalist Assessment/Plan (1) Acute encephalopathy: (2) Hypertensive urgency: (3) UTI (urinary tract infection): (4) NAEEM (acute kidney injury): Plan Acute encephalopathy, differential diagnosis include but not limited to hypertension vs infectious (mild UTI?) vs medications induced -Remained afebrile with no leukocytosis -UA mildly positive for UTI. urine culture growing gram negative bacilli. Continue Rocephin for now. -Utox negative. alcohol level <5. -NAEEM, unknown baseline, could be due to uncontrolled BP. Improving. -HTN urgency noted. patient reported compliance with her home medications. Continue home meds since she has been doing well with these meds. -Labetalol PRN as directed -CT head in ER negative for acute pathology -Will resume home medications and monitor closely. Hold oxybutynin for now. -Psych input appreciated. Will continue current regimen DVT ppx with Lovenox Code status full code Discussed with patient at bedside. All questions answered Documented By: Henry Burnett MD 01/04/22 16 14 Signed By: <Electronically signed by Henry Burnett MD> 01/04/22 4419 [facility] Work Phone: [phone]) 291-405410-05-2022 Consult note Author Graham Helm [facility] January 04, 2022 2:08pm Note Date/Time January 04, 2022 2: 04pm [facility] [address] [place] [address] Psychiatry Consult Note Signed Patient: Kathy Porter MR#: [id number] : 1960 Acct:[id number] Age/Sex: 61 / F Adm Date: 2 Loc: 3T Room: [address] [place] [address] Type : ADM INOo Attending Dr: Henry Burnett MD Copies to: MD Vicky Painting MD Obaydah M Daromar, MD~ HPI Consult Date: 01/04/22 Requesting Physician: Henry Burnett MD Primary Care Provider: Vicky Arnett MD Consult Narrative Reason for consult: confusion, med rec HPI: Ms. Porter is a 61 year old female who presented with confusion. Upon assessment, patient reported that she was confused yesterday. She reportedshe was confused about where she was and why she was there. She stated that shehas noticed an improvement of her confusion today. She reported that she has been feeling fidgety which she related to her anxiety today. She normally takesKlonopin at home and stated that it has helped her. She denied any side effectsfrom current medications. She stated that she takes her medications because herhusband helps her. She reported that she has not had any manic fluctuations or any psychosis. She stated that she sees a psychiatrist in [place]. She reported that he is helping her manage her symptoms. She denied any previous suicide attempts or previous psychiatric hospitalizations. She reported that she is living with family and is currently on disability. She denied any alcohol or illicit drug use. Mental Status Exam: Appearance: grossly normal Mental Status: mental status grossly normal Mood: confused, but improving Affect: blunted affect Speech and Movement: speech and movement normal and speech clear Attitude: cooperative Thought Process: normal Thought Content: no hallucinations, no homicidality and suicidality Insight: fair Judgment: fair PMFSH Vaccinated for COVID-19?: Yes Medical History Diabetes History of anxiety Hx of bipolar disorder Hx of major depression Hypertension Surgical History Hx of cholecystectomy Social History Smoking Status: Former smoker Tobacco Type: cigarettes Substance Use Type: None Meds Medications and Allergies Allergies Sulfa (Sulfonamide Antibiotics) Allergy (Verified 01/03/22 13:59) Rash Home Medications amlodipine 10 mg tablet 10 mg PO DAILY.AC SUPPER 01/03/22 [History Confirmed 01/03/22] bupropion HCl 150 mg tablet,12 hr sustained-release 150 mg PO DAILY.PC.LUNCH 01/03/22 [History Confirmed 01/03/22] bupropion HCl 300 mg 24 hr tablet, extended release 300 mg PO QAM 01/03/22 [History Confirmed 01/03/22] cholecalciferol (vitamin D3) 25 mcg (1,000 unit) capsule (Vitamin D3) 25 mcg PO DAILY 01/03/22 [History Confirmed 01/03/22] clonazepam 0.25 mg disintegrating tablet 0.25 mg PO HS 01/03/22 [History Confirmed 01/03/22] clonazepam 0.5 mg tablet 0.5 mg PO DAILY.PC.LUNCH 01/03/22 [History Confirmed 01/03/22] divalproex 500 mg tablet,delayed release (Depakote) 500 mg PO DAILY.AC SUPPER 01/03/22 [History Confirmed 01/03/22] doxazosin 2 mg tablet 2 mg PO BID 01/03/22 [History Confirmed 01/03/22] eluxadoline 100 mg tablet (Viberzi) 100 mg PO HS 01/03/22 [History Confirmed 01/03/22] irbesartan 300 mg tablet 300 mg PO HS 01/03/22 [History Confirmed 01/03/22] metformin 1,000 mg tablet 1,000 mg PO BID 01/03/22 [History Confirmed 01/03/22] metoprolol tartrate 100 mg tablet 100 mg PO BID 01/03/22 [History Confirmed 01/03/22] oxybutynin chloride 5 mg tablet 5 mg PO TID 01/03/22 [History Confirmed 01/03/22] pantoprazole 40 mg tablet,delayed release 40 mg PO DAILY 01/03/22 [History Confirmed 01/03/22] simvastatin 10 mg tablet 10 mg PO HS 01/03/22 [History Confirmed 01/03/22] trazodone 50 mg tablet 50 mg PO QHS 01/03/22 [History Confirmed 01/03/22] Exam Physical Exam Vital Signs: Temp Pulse Resp BP Pulse Ox O2 Del Method 98.3 F 75 18 164/98 H 98 Room Air 01/04/22 11:37 01/04/22 11:37 01/04/22 11:37 01/04/22 11:37 01/04/22 11:37 01/04/22 11:37 Results Labs CBC & Chem 7: 01/04/22 06:10 01/04/22 06:10 Psychiatry Labs: 01/03/22 01/03/22 01/03/22 14:20 14:35 14:35 RBC 4.50 Hgb 13.4 Hct 41.0 MCV 91.0 MCH 29.7 MCHC 32.6 RDW 15.7 H Plt Count 236 MPV 8.8 Sodium 135 L Potassium 4.3 Chloride 99 Carbon Dioxide 23.6 Anion Gap 16.7 H BUN 14 Creatinine 1.38 H Calcium 9.5 Total Bilirubin 0.6 AST 18 ALT 14 Alkaline Phosphatase 40 Total Protein 6.7 Albumin 3.6 Urine Color Yellow Urine Appearance Clear Urine pH 5.5 Ur Specific [place] 1.012 Urine Protein Negative Urine Glucose (UA) Normal Urine Ketones Negative Urine Occult Blood Negative Urine Nitrite Negative Ur Leukocyte Esterase 2+ H Urine RBC None seen Urine WBC 5-9 H Valproic Acid 01/03/22 01/04/22 01/04/22 14:35 06:10 06:10 RBC 4.15 Hgb 12.3 Hct 37.5 MCV 90.5 MCH 29.7 MCHC 32.8 RDW 15.8 H Plt Count 190 MPV 8.5 Sodium 138 Potassium 3.2 L Chloride 103 Carbon Dioxide 27.6 Anion Gap 10.6 BUN 11 Creatinine 1.21 H Calcium 9.0 Total Bilirubin 0.3 AST 15 ALT 12 Alkaline Phosphatase 32 Total Protein 5.6 L Albumin 3.0 L Urine Color Urine Appearance Urine pH Ur Specific [place] Urine Protein Urine Glucose (UA) Urine Ketones Urine Occult Blood Urine Nitrite Ur Leukocyte Esterase Urine RBC Urine WBC Valproic Acid 59.0 01/04/22 10:13 RBC Hgb Hct MCV MCH MCHC RDW Plt Count MPV Sodium Potassium Chloride Carbon Dioxide Anion Gap BUN Creatinine Calcium Total Bilirubin AST ALT Alkaline Phosphatase Total Protein Albumin Urine Color Urine Appearance Urine pH Ur Specific [place] Urine Protein Urine Glucose (UA) Urine Ketones Urine Occult Blood Urine Nitrite Ur Leukocyte Esterase Urine RBC Urine WBC Valproic Acid 28.2 L Microbiology Microbiology: Microbiology - Results from entire visit 01/03/22 14:20 Clean Void Midstream Urine Culture - Preliminary Gram Negative Bacilli 01/03/22 16:34 Nasal SARS Antigen (LFIA) - Final Assessment/Plan (1) Acute encephalopathy: Code(s): G93.40 - Encephalopathy, unspecified Status: Acute (2) Hypertensive urgency: Code(s): I16.0 - Hypertensive urgency Status: Acute (3) UTI (urinary tract infection): Code(s): N39.0 - Urinary tract infection, site not specified Status: Acute (4) NAEEM (acute kidney injury): Code(s): N17.9 - Acute kidney failure, unspecified Status: Acute Plan Patient presenting due to confusion. Currently reported depression has been improving. Currently oriented to place person and time Has been taking Depakote, Klonopin and Wellbutrin which she stated have been helpful She has no new medications added to her psychiatric regimen. Depakote level wascompleted and was low which I would suspect on such a low dose of Depakote whichis 500 daily However this dose is fine as mood has not been depressed or manic Continue Klonopin, Depakote and Wellbutrin We will follow peripherally Documented By: Graham Helm MD 01/04/221402 Signed By: <Electronically signed by Graham Helm MD> 01/04/22 1408 [facility] Work Phone: [phone]) 288-382610-04-2022 History and physical note Author Henry Burnett [facility] January 03, 2022 6:58pm Note Date/Time January 03, 2022 4: 55pm [facility] [address] [place] [address] Hospitalist H&P Signed Patient: Kathy Porter MR#: [id number] : 1960 Acct:[id number] Age/Sex: 61 / F Adm Date: 2 Loc: Room: [address] [place] [address] Type: ADM INOo Attending Dr: Henry Burnett MD Copies to: MD Henry Silver MD~ HPI DATE OF EXAMINATION: 01/03/22 CHIEF COMPLAINT: Confusion/AMS HISTORY OF PRESENT ILLNESS: Patient is a 61 year old female with PMH of DM, HTN, and extensive psychiatric history of anxiety and bipolar disorder with multiple medications been tried in the past and ECTs presented with vague confusion that started yesterday and got worse today morning. History mostly obtained from at bedside. stated that last night patient was confused, he was asking her to do something and she would do something else, and today also was noted with confusion again, she was told to smile and she opened her mouth and stuck her tongue out for which patient was brought in for further evaluation. During my encounter, patient is alert, awake and oriented to self, place and month and year and day of the day. she knew who is the president of [place]. following commands appropriately, no obvious neurological focal deficits. Patient states herself I am confused , but when asked why or what makes you feel confused she stayed silent. 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 Decision was to admit the patient for further evaluation. Review of Systems Review of Systems All other systems reviewed & are negative unless noted below or in HPI Review of systems: Constitutional Constitutional: Reports system reviewed and no additional complaints, except as documented Eyes Eyes: Reports system reviewed and no additional complaints, except as documented ENT Ears, Nose, Mouth, and Throat: Reports system reviewed and no additional complaints, except as documented Cardiovascular Cardiovascular: Reports system reviewed and no additional complaints, except as documented Respiratory Respiratory: Reports system reviewed and no additional complaints, except as documented Gastrointestinal Gastrointestinal: Reports system reviewed and no additional complaints, except as documented Genitourinary Genitourinary: Reports system reviewed and no additional complaints, except as documented Musculoskeletal Musculoskeletal: Reports system reviewed and no additional complaints, except asdocumented Neurologic Neurologic: Reports system reviewed and no additional complaints, except as documented Skin: no rash, lesions PMFSH Vaccinated for COVID-19?: Yes Medical History Diabetes History of anxiety Hx of bipolar disorder Hx of major depression Hypertension Surgical History Hx of cholecystectomy Social History Smoking Status: Never smoker Substance Use Type: None Meds Medications and Allergies Allergies Sulfa (Sulfonamide Antibiotics) Allergy (Verified 01/03/22 13:59) Rash Home Medications amlodipine 10 mg tablet 10 mg PO DAILY.AC SUPPER 01/03/22 [History Confirmed 01/03/22] bupropion HCl 150 mg tablet,12 hr sustained-release 150 mg PO DAILY.PC.LUNCH 01/03/22 [History Confirmed 01/03/22] bupropion HCl 300 mg 24 hr tablet, extended release 300 mg PO QAM 01/03/22 [History Confirmed 01/03/22] cholecalciferol (vitamin D3) 25 mcg (1,000 unit) capsule (Vitamin D3) 25 mcg PO DAILY 01/03/22 [History Confirmed 01/03/22] clonazepam 0.25 mg disintegrating tablet 0.25 mg PO HS 01/03/22 [History Confirmed 01/03/22] clonazepam 0.5 mg tablet 0.5 mg PO DAILY.PC.LUNCH 01/03/22 [History Confirmed 01/03/22] divalproex 500 mg tablet,delayed release (Depakote) 500 mg PO DAILY.AC SUPPER 01/03/22 [History Confirmed 01/03/22] doxazosin 2 mg tablet 2 mg PO BID 01/03/22 [History Confirmed 01/03/22] eluxadoline 100 mg tablet (Viberzi) 100 mg PO HS 01/03/22 [History Confirmed 01/03/22] irbesartan 300 mg tablet 300 mg PO HS 01/03/22 [History Confirmed 01/03/22] metformin 1,000 mg tablet 1,000 mg PO BID 01/03/22 [History Confirmed 01/03/22] metoprolol tartrate 100 mg tablet 100 mg PO BID 01/03/22 [History Confirmed 01/03/22] oxybutynin chloride 5 mg tablet 5 mg PO TID 01/03/22 [History Confirmed 01/03/22] pantoprazole 40 mg tablet,delayed release 40 mg PO DAILY 01/03/22 [History Confirmed 01/03/22] simvastatin 10 mg tablet 10 mg PO HS 01/03/22 [History Confirmed 01/03/22] trazodone 50 mg tablet 50 mg PO QHS 01/03/22 [History Confirmed 01/03/22] Exam Physical Exam Vital Signs: Temp Pulse Resp BP Pulse Ox O2 Del Method 98.5 F 82 20 190/110 H 98 Room Air 01/03/22 13:59 01/03/22 14:08 01/03/22 13:59 01/03/22 13:59 01/03/22 13:59 01/03/22 13:59 Narrative: Const General: cooperative, in no acute distress, staring but follow commands, appearsconfused, restless HEENT Head: normal to inspection Nose: external nose normal Mouth: oral mucosae normal and lip normal Eyes Conjunctivae: conjunctivae normal Neck Neck: normal visual inspection Chest inspection: normal inspection of the chest Resp Effort & Inspection: normal respiratory effort, not labored, no respiratory distress Auscultation: clear to auscultation b/l, no crackles, no wheezes Cardio Rate: normal rate Rhythm: regular rhythm Heart Sounds: S1 normal, S2 normal and no murmurs GI Inspection: non-distended Palpation: soft, not firm and nontender Neuro General: alert, awake and oriented x3. No obvious focal deficit seems restless in hands and feet, chewing movement noted couple of times Extrem General: no cyanosis, no pedal edema Psych Appearance: confused Results Lab Results Labs: Laboratory Last Values Corrected WBC 6.4 X10E3/uL (3.8-11.6) 01/03/22 14:35 Uncorrected WBC Count 6.4 x10E3/uL (4.5-11.0) 01/03/22 14:35 RBC 4.50 x10E6/uL (3.60-5.00) 01/03/22 14:35 Hgb 13.4 g/dL (11.8-15.4) 01/03/22 14:35 Hct 41.0 % (34.0-46.4) 01/03/22 14:35 MCV 91.0 fl (80-100) 01/03/22 14:35 MCH 29.7 pg (24.7-34.3) 01/03/22 14:35 MCHC 32.6 g/dL (32.0-35.0) 01/03/22 14:35 RDW 15.7 % (11.9-15.3) H 01/03/22 14:35 Plt Count 236 x10E3/uL (150-450) 01/03/22 14:35 MPV 8.8 fl (6.3-10.7) 01/03/22 14:35 Neut % (Auto) 66.8 % (.) 01/03/22 14:35 Lymph % (Auto) 22.3 % (.) 01/03/22 14:35 [place] % (Auto) 8.9 % (.) 01/03/22 14:35 Eos % (Auto) 1.4 % (.) 01/03/22 14:35 Baso % (Auto) 0.6 % (.) 01/03/22 14:35 Neut # (Auto) 4.3 x10E3/uL (1.8-7.7) 01/03/22 14:35 Lymph # (Auto) 1.4 x10E3/uL (1.00-4.8) 01/03/22 14:35 [place] # (Auto) 0.6 x10E3/uL (0.0-0.8) 01/03/22 14:35 Eos # (Auto) 0.1 x10E3/uL (0.0-0.45) 01/03/22 14:35 Baso # (Auto) 0.0 x10E3/uL (0.0-0.2) 01/03/22 14:35 Nucleated RBC % (auto) 0.1 % (0-0.5) 01/03/22 14:35 PHA Creatinine Clear 43.00 01/03/22 14:35 Sodium 135 mmol/L (136-146) L 01/03/22 14:35 Potassium 4.3 mmol/L (3.5-5.1) 01/03/22 14:35 Chloride 99 mmol/L (95-114) 01/03/22 14:35 Carbon Dioxide 23.6 mmol/L (22.0-30.0) 01/03/22 14:35 Anion Gap 16.7 mEq/L (6.0-15.0) H 01/03/22 14:35 BUN 14 mg/dL (9-23) 01/03/22 14:35 Creatinine 1.38 mg/dL (0.44-1.03) H 01/03/22 14:35 Est GFR ( Amer) 47 mL/Min 01/03/22 14:35 Est GFR (Non-Af Amer) 39 mL/Min 01/03/22 14:35 Glucose 137 mg/dL (70-100) H 01/03/22 14:35 Calcium 9.5 mg/dL (8.2-10.2) 01/03/22 14:35 Total Bilirubin 0.6 mg/dL (0.3-1.2) 01/03/22 14:35 AST 18 U/L (10-42) 01/03/22 14:35 ALT 14 U/L (10-60) 01/03/22 14:35 Alkaline Phosphatase 40 U/L (32-92) 01/03/22 14:35 Total Protein 6.7 gm/dL (6.1-7.9) 01/03/22 14:35 Albumin 3.6 gm/dL (3.2-5.5) 01/03/22 14:35 Globulin 3.1 gm/dL 01/03/22 14:35 Albumin/Globulin Ratio 1.2 01/03/22 14:35 Free T4 1.10 ng/dL (0.61-1.12) 01/03/22 14:35 TSH 3rd Generation 4.71 uIU/mL (0.45-5.33) 01/03/22 14:35 Urine Color Yellow (Yellow) 01/03/22 14:20 Urine Appearance Clear (Clear) 01/03/22 14:20 Urine pH 5.5 (5.0-9.0) 01/03/22 14:20 Ur Specific [place] 1.012 (1.001-1.030) 01/03/22 14:20 Urine Protein Negative mg/dL (Negative) 01/03/22 14:20 Urine Glucose (UA) Normal mg/dL (Normal) 01/03/22 14:20 Urine Ketones Negative (Negative) 01/03/22 14:20 Urine Occult Blood Negative (Negative) 01/03/22 14:20 Urine Nitrite Negative (Negative) 01/03/22 14:20 Urine Bilirubin Negative (Negative) 01/03/22 14:20 Urine Urobilinogen Normal mg/dL (Normal) 01/03/22 14:20 Ur Leukocyte Esterase 2+ (Negative) H 01/03/22 14:20 Urine RBC None seen /HPF (0-4) 01/03/22 14:20 Urine WBC 5-9 /HPF (0-4) H 01/03/22 14:20 Ur Squamous Epith Cells 3-4 /HPF (0-2) H 01/03/22 14:20 Urine Bacteria 2+ (None Seen) H 01/03/22 14:20 Hyaline Casts 0-8 /LPF (0-8) 01/03/22 14:20 Urine Yeast None seen /HPF (None Seen) 01/03/22 14:20 Salicylates < 4.0 mg/dL (15.0-30.0) L 01/03/22 14:35 Urine Opiates Screen Negative (Negative) 01/03/22 14:20 Acetaminophen 25.3 ug/mL (10.0-30.0) 01/03/22 14:35 Ur Barbiturates Screen Negative (Negative) 01/03/22 14:20 Valproic Acid 59.0 ug/mL (50.0-100.0) 01/03/22 14:35 Ur Phencyclidine Scrn Negative (Negative) 01/03/22 14:20 Ur Amphetamines Screen Negative (Negative) 01/03/22 14:20 U Benzodiazepines Scrn Negative (Negative) 01/03/22 14:20 Urine Cocaine Screen Negative (Negative) 01/03/22 14:20 U Marijuana (THC) Screen Negative (Negative) 01/03/22 14:20 Ethyl Alcohol < 5 mg/dL 01/03/22 14:35 % Ethyl Alcohol TNP 01/03/22 14:35 A&P - Hospitalist Assessment/Plan (1) Acute encephalopathy: (2) Hypertensive urgency: (3) UTI (urinary tract infection): (4) NAEEM (acute kidney injury): Plan Acute encephalopathy, differential diagnosis include but not limited to hypertension vs infectious (mild UTI?) vs medications induced -Afebrile with no leukocytosis -UA mildly positive for UTI. urine culture pending. Start Rocephin for now empirically -Utox negative. alcohol level <5. -NAEEM, unknown baseline, could be due to uncontrolled BP. will follow BMP with next labs -HTN urgency noted. patient reported compliance with her home medications. Will restart home meds since she has been doing well with these meds. -Labetalol PRN as directed -CT head in ER negative for acute pathology -Psychiatry evaluation requested for medications reconciliation. Patient with extensive psych hx and has tried multiple medications in the past, as per , there was recent change 3 months ago of risperidone which was changed to Depakote due to extrapyramidal symptoms. -Will resume home medications and monitor closely. Hold oxybutynin for now. DVT ppx with Lovenox Code status full code Discussed with patient, , daughter at bedside above plan. All questions answered Documented By: Henry Burnett MD 01/03/22 16 52 Signed By: <Electronically signed by Henry Burnett MD> 01/03/22 7790 [facility] Work Phone: 1(135) 636-549207-15-2022 History of Present illness Narrative* Scott Mcallister MD - 10/14/2021 2:11 PM EDT BEHAVIORAL HEALTH PSYCHIATRIC PROGRESS NOTE 10/14/2021 Kathy Porter, a 60 y.o. female, for psychotropic medication management follow- up visit Interval History: Patient seen in session with . Patient has developed a tremor of the right upper extremity since last 2 months. This is likely from risperidone. 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 No dyskinetic movements were noted. Cousin reported that he is witnessing decline in her moods and physical health in the last couple of months. Patient reports she is continues to feel depressed, feeling helpless and worthless. Deniesfeelings of hopelessness or suicidal ideation. Wanting to sleep more. Appetite is so-so. Patient reports no sex drive. Continued struggles with low energy and motivation. She has poor attention span and concentration. Racing thoughts reported. Patient denies any other manic mood symptoms. Anxiety control is fair. Denies any ongoing drug or alcohol abuse Interpersonal issues were discussed: Support was provided Medications assessed: Side effects as above. We will taper and discontinue risperidone. Patient hasnot done well on lithium in the past. Discussed alternatives. For now we will start patient on Depakote. CBC and CMP were ordered. Goals and objectives of treatment: Improve coping skills Improve mood Improve interpersonal and social functioning Treatment compliance The following portions of the patient's history were reviewed and updated as appropriate: allergies, current medications, past family history, past medical history, past social history, past surgicalhistory and problem list. Review of Systems: Ophthalmic ROS: negative ENT ROS: negative Allergy and Immunology ROS: negative Hematological and Lymphatic ROS: negative Endocrine ROS: negative Respiratory ROS: no cough, shortness of breath, or wheezing Cardiovascular ROS: no chest pain or dyspnea on exertion Gastrointestinal ROS: no abdominal pain, change in bowel habits, or black or bloody stools Genito-Urinary ROS: no dysuria, trouble voiding, or hematuria Musculoskeletal ROS: negative Neurological ROS: Tremor of right upper extremity Dermatological ROS: negative AIMS exam completed: No abnormal involuntary movements noted PSYCHIATRIC EXAM: Grooming & Hygiene: casually dressed and age appropriate General Behavior: Can be engaged, fair eye contact, tremor of right upper extremity Psychomotor Activity: Normal motor activity Speech: Slowed rate and soft tone Flow to Thought: racing thoughts Thought Associations: Intact Content of Thought: No evidence of suicidal ideations / homicidal ideations / delusions / obsessions Mood: Depressed Affect: Flat Insight: fair Judgment: fair Orientation: alert and oriented to person, place, time Memory: Recent intact Attention: Distractible Concentration: Reduced Language: Average Fund of Knowledge: Average Labs/ Diagnostic Imaging reviewed: none Response to Medication: Adequate ASSESSMENT AND PLAN: Follow-up plan was discussed with patient. Impression/ Plan: Bipolar disorder, type I, depressed, mild Generalized anxiety disorder Global assessment of functionin Recommendations: Treatment Plan: Pharmacological management: Alternative medication plans were discussed with the patient/guardian. All relevant side effects and potential adverse effects were discussed with the patient/guardian. Standard cautions and potential benefits were discussed. FDA label and OFF label uses of medications were discussed. Patient/Guardian consented to the continuation of the following: Continue buPROPion (WELLBUTRIN XL) 150 MG 24 hr tablet, Take 1 (one) tablet (150 mg total) by mouth daily .,Disp: 90 tablet, Rfl: 0 buPROPion (WELLBUTRIN XL) 300 MG 24 hr tablet, Take 1 (one) tablet (300 mg total) by mouth every morning ., Disp: 90 tablet, Rfl: 0 Adjust clonazePAM (KLONOPIN) 0.5 MG tablet, Take 1 (one) tablet (0.5 mg total) by mouth 2 (two) times a day as needed for anxiety ., Disp: 180 tablet, Rfl: 0 Start divalproex (DEPAKOTE ER) 500 MG 24 hr tablet, Take 1 (one) tablet (500 mg total) by mouth daily ., Disp: 90 tablet, Rfl: 0 Continue traZODone (DESYREL) 100 MG tablet, 1/2 to 1 tab daily hs sleep ., Disp: 90 tablet, Rfl: 0 Reduce zolpidem (AMBIEN) 5 MG tablet, Take 1 (one) tablet (5 mg total) by mouth nightly as needed ., Disp: 90 tablet, Rfl: 0 Will monitor side effects and progress and adjust medications appropriately Crisis Intervention plan was discussed and agreed upon. Patient/Guardian will call 911 in case of emergency. Emergency contact information was provided to the patient/guardian. Laboratory and other tests: See orders. Psychotherapy: Continue with same provider ( Rocky @ [facility] in [place]) Follow up as scheduled or return early if needed. School or community referral: None Treatment Goals and Objectives discussed. Other Referrals/Consults/Psychological Testing: None Scott Mcallister documented in this [id number] History of Present illness Narrative* Scott Mcallister MD - 07/19/2021 12:58 PM EDT BEHAVIORAL HEALTH PSYCHIATRIC PROGRESS NOTE 07/19/2021 Kathy Porter, a 60 y.o. female, for follow-up visit Interval History: Patient seen in session with . reports patient has no motivation to do anything around the house. Patient does not want to socialize. Driving remains minimal. Patient has not adhered to the encouragement regarding maintaining a good social rhythm including thinking about doing some volunteer work or going to the gym. Reports anhedonia finds no enjoyment in doing any of her fun activities she used to do before. Mood was described as 'same' as before. Feels helpless and worthless but denies any ongoing feelings of hopelessness. Denies any ongoing suicidal ideation. Adequate ADLs. She is endorsing racing thoughts and distractibility. Slowed speech. Motor activity is also slowed.Denies engaging in any increased goal-directed activities or increased busyness. Sleep has been adequate no issues falling or staying asleep with the medications she is currently on. Does report fatigue and tiredness and lack of energy. Anxiety control is fair. Patient denies any excessive worries or anxiety. Impulse control is fair. Denies any ongoing psychotic features. Sex drive continues to be poor Denies any ongoing drug or alcohol abuse Interpersonal issues were discussed: Support was provided Medications assessed: Patient denies any ongoing side effects. Compliance has been fair. ECT got postponed because of COVID surge. We will consider ECT during the summer Goals and objectives of treatment: Improve coping skills Improve mood Improve interpersonal and social functioning Treatment compliance The following portions of the patient's history were reviewed and updated as appropriate: allergies, current medications, past family history, past medical history, past social history, past surgicalhistory and problem list. Review of Systems: Ophthalmic ROS: negative ENT ROS: negative Allergy and Immunology ROS: negative Hematological and Lymphatic ROS: negative Endocrine ROS: negative Respiratory ROS: no cough, shortness of breath, or wheezing Cardiovascular ROS: no chest pain or dyspnea on exertion Gastrointestinal ROS: no abdominal pain, change in bowel habits, or black or bloody stools Genito-Urinary ROS: no dysuria, trouble voiding, or hematuria Musculoskeletal ROS: negative Neurological ROS: negative Dermatological ROS: negative AIMS exam completed: No abnormal involuntary movements noted PSYCHIATRIC EXAM: Grooming & Hygiene: casually dressed and age appropriate General Behavior: Can be engaged, fair eye contact Psychomotor Activity: Slowed motor activity Speech: Slowed rate and soft tone Flow to Thought: racing thoughts Thought Associations: Intact Content of Thought: No evidence of suicidal ideations / homicidal ideations / delusions / obsessions Mood: same Affect: Flat Insight: fair Judgment: fair Orientation: alert and oriented to person, place, time Memory: Recent intact Attention: Distractible Concentration: Reduced Language: Average Fund of Knowledge: Average Labs/ Diagnostic Imaging reviewed: none Response to Medication: Adequate ASSESSMENT AND PLAN: Follow-up plan was discussed with patient. Impression/ Plan: Bipolar disorder, type I, depressed, mild Generalized anxiety disorder Global assessment of functionin Recommendations: Treatment Plan: Pharmacological management: Alternative medication plans were discussed with the patient/guardian. All relevant side effects and potential adverse effects were discussed with the patient/guardian. Standard cautions and potential benefits were discussed. FDA label and OFF label uses of medications were discussed. Patient/Guardian consented to the continuation of the following: buPROPion (WELLBUTRIN XL) 150 MG 24 hr tablet, Take 1 (one) tablet (150 mg total) by mouth daily .,Disp: 90 tablet, Rfl: 0 buPROPion (WELLBUTRIN XL) 300 MG 24 hr tablet, Take 1 (one) tablet (300 mg total) by mouth every morning ., Disp: 90 tablet, Rfl: 0 clonazePAM (KLONOPIN) 0.5 MG tablet, Take 1 (one) tablet (0.5 mg total) by mouth 3 (three) times a day NEEDED FOR ANXIETY ., Disp: 270 tablet, Rfl: 0 risperiDONE (RISPERDAL) 3 MG tablet, Take 1 (one) tablet (3 mg total) by mouth daily with dinner .,Disp: 90 tablet, Rfl: 1 traZODone (DESYREL) 100 MG tablet, 1/2 to 1 tab daily hs sleep ., Disp: 90 tablet, Rfl: 0 zolpidem (AMBIEN) 10 mg tablet, Take 1 (one) tablet (10 mg total) by mouth at bedtime ., Disp: 90 tablet, Rfl: 0 Will monitor side effects and progress and adjust medications appropriately Crisis Intervention plan was discussed and agreed upon. Patient/Guardian will call 911 in case of emergency. Emergency contact information was provided to the patient/guardian. Laboratory and other tests: See orders. Psychotherapy: Continue with same provider ( [facility] @ [facility] in [place]) Follow up as scheduled or return early if needed. School or community referral: None Treatment Goals and Objectives discussed. Other Referrals/Consults/Psychological Testing: None Scott Mcallister documented in this [id number] Miscellaneous Notes* Telephone Encounter - Sarah Leigh MA - 05/16/2021 11:04 AM EST Pt is completely out and wants a 30 day supply sent to the local pharmacy. Another refill encounterto follow with a 90 day supply to go to [facility]. documented in this [id number] History of Present illness Narrative* Scott Mcallister MD - 09/24/2020 1:16 PM EDT BEHAVIORAL HEALTH PSYCHIATRIC PROGRESS NOTE 09/24/2020 Kathy Porter, a 59 y.o. female, for follow-up visit Interval History: Patient seen in session with . Patient reported she is still feeling mildly depressed. Also reported mild mixed features and mild anxiety distress as her baseline. Patient reported she tried to cut her Risperdal in half for a couple of days but it did not go well and she became more unstable. She is back on the full 3 mg dose. Patient was encouraged not to try experimenting with her medications on her own. Typically patient is fairly compliant with her treatment plan and was encouraged to keep doing the same. Still struggles with low energy and low motivation. states that patient still homebound does not want to venture out and do anything social or something fun. Patient reports mild racing thoughts and mild distractibility. Speech was slowed. She is displaying normal motor activity. has noted that patient has days when she is more down and has more apathetic. Patient does report that medications do help her and if she is not on these medications she would not have able to take care of her ADLs and other daily chores. Patient still going to her counselor. Patient denies any ongoing feelings of hopelessness but does feel helpless and worthless. Denies anyongoing suicidal ideation intent or plan. Appetite is okay. Reports low sex drive. Sleep has been adequate at night, denies taking naps during the day. Has not denies any withdrawal or alcohol abuse. Mild to moderate anxiety distress reported. Not feeling as worried as she was last year during COVID peak Interpersonal issues were discussed: Support was provided Medications assessed: Patient denies any ongoing side effects. Continue to encourage compliance. Patient was receiving the same plan The following portions of the patient's history were reviewed and updated as appropriate: allergies, current medications, past family history, past medical history, past social history, past surgicalhistory and problem list. Review of Systems - General ROS: negative Ophthalmic ROS: negative ENT ROS: negative Allergy and Immunology ROS: negative Hematological and Lymphatic ROS: negative Endocrine ROS: negative Respiratory ROS: no cough, shortness of breath, or wheezing Cardiovascular ROS: no chest pain or dyspnea on exertion Gastrointestinal ROS: no abdominal pain, change in bowel habits, or black or bloody stools Genito-Urinary ROS: no dysuria, trouble voiding, or hematuria Musculoskeletal ROS: negative Neurological ROS: negative Dermatological ROS: negative PSYCHIATRIC EXAM: Grooming & Hygiene: casually dressed and age appropriate General Behavior: Cooperative Psychomotor Activity: no psychomotor abnormalities Speech: Slowed Flow to Thought: Mild racing thoughts Thought Associations: Intact Content of Thought: No evidence of suicidal idealizations / homicidal idealizations / delusions / obsessions Mood: Depressed Affect: Restricted Insight: fair Judgment: fair Orientation: alert and oriented to person, place, time Memory: Recent intact Attention: Mildly distractible Concentration: Reduced Language: Average Fund of Knowledge: Average Labs/ Diagnostic Imaging reviewed: none Response to Medication: Adequate ASSESSMENT AND PLAN: Follow-up plan was discussed with patient. Impression/ Plan: Bipolar disorder, type I, depressed with mixed features Generalized anxiety disorder Global assessment of functionin-65 Recommendations: Treatment Plan: Pharmacological management: Alternative medication plans were discussed with the patient/guardian. All relevant side effects and potential adverse effects were discussed with the patient/guardian. Standard cautions and potential benefits were discussed. FDA label and OFF label uses of medications were discussed. Patient/Guardian consented to the continuation of the following: buPROPion (WELLBUTRIN XL) 150 MG 24 hr tablet, Take 1 (one) tablet (150 mg total) by mouth daily .,Disp: 90 tablet, Rfl: 0 buPROPion (WELLBUTRIN XL) 300 MG 24 hr tablet, Take 1 (one) tablet (300 mg total) by mouth every morning ., Disp: 90 tablet, Rfl: 0 clonazePAM (KLONOPIN) 0.5 MG tablet, Take 1 (one) tablet (0.5 mg total) by mouth 3 (three) times a day NEEDED FOR ANXIETY ., Disp: 270 tablet, Rfl: 0 risperiDONE (RISPERDAL) 3 MG tablet, Take 1 (one) tablet (3 mg total) by mouth daily with dinner .,Disp: 90 tablet, Rfl: 1 traZODone (DESYREL) 100 MG tablet, 1/2 to 1 tab daily hs sleep ., Disp: 90 tablet, Rfl: 0 zolpidem (AMBIEN) 10 mg tablet, Take 1 (one) tablet (10 mg total) by mouth at bedtime ., Disp: 90 tablet, Rfl: 0 Will monitor side effects and progress and adjust medications appropriately Crisis Intervention plan was discussed and agreed upon. Patient/Guardian will call 911 in case of emergency. Emergency contact information was provided to the patient/guardian. Laboratory and other tests: See orders. Psychotherapy: Continue with same provider Follow up as scheduled or return early if needed. School or community referral: None Treatment Goals and Objectives discussed. Other Referrals/Consults/Psychological Testing: None Review with patient: Treatment plan reviewed with the patient. Medication risks/benefit reviewed with the patient Scott Mcallister documented in this [id number] History of Present illness Narrative* Scott Mcallister MD - 07/27/2020 2:43 PM EDT Telephone Visit Via Phone Call [facility] [phone] Telephone Visit [facility] 07/27/2020 Scott Mcallister MD Provider Location: [facility] Patient Location Ecological Technical Officer: None Patient Location: Patient's Home Patient: Kathy Porter Date of : 1960 (59 y.o. female) PCP: Vicky Arnett MD I discussed risks, benefits and alternatives of a telephone visit telemedicine consultation with the patient (and any accompanying persons) including the risks that the patient's personal health details and medical records will be discussed over real-time, synchronous, interactive audio technology,the visit will not be recorded without the express consent of both the provider and the patient, and that there are inherent diagnostic limitations compared to [id number] evaluations. We elected toproceed with the telephone visit telemedicine consultation. HPI Patient is interviewed over the phone, audio quality was fair, patient was able to engage She is reporting baseline stability. Still has mild depressive mood symptoms, will have a few fair days but stated that she still has fatigue and it is hard at times to take care of her daily chores. She is taking care of her hygiene and is compliant with medications. Patient reported that she is sleeping adequately most nights but at times she has difficulty getting out in the morning. Reports okay concentration but complains of slowed memory some days. Not feeling hopeless and denies passive or active morbid thoughts. At times she still feels worthless and hopeless, feels she is not contributing to her family. Sex drive is minimal. Appetite is okay. Reports baseline racing thoughts and mild distractibility. Denies any increased busyness or increased goal-directed activities. Anxiety control has been fair. Mostly stays at home and does not socialize outside of family. Denies any alcohol or drug abuse. Interpersonal issues were discussed: Support was provided With COVID restrictions patient stayed mostly at home and more lethargic. Impulse control has been fair The following portions of the patient's history were reviewed and updated as appropriate: allergies, current medications, past family history, past medical history, past social history, past surgicalhistory and problem list. Review of Systems Constitutional: Positive for fatigue. Eyes: Negative. Respiratory: Negative. Cardiovascular: Negative. Gastrointestinal: Negative. Endocrine: Negative. Genitourinary: Negative. Musculoskeletal: Negative. : Patient's Medications New Prescriptions No medications on file Previous Medications AMLODIPINE (NORVASC) 10 MG TABLET Take 10 mg by mouth nightly . CLONAZEPAM (KLONOPIN) 0.5 MG TABLET Take 1 (one) tablet (0.5 mg total) by mouth 3 (three) times a day NEEDED FOR ANXIETY . DOXAZOSIN (CARDURA) 2 MG TABLET Take 2 mg by mouth 2 (two) times a day . ELUXADOLINE 100 MG TAB Take 100 mg by mouth daily . IRBESARTAN (AVAPRO) 300 MG TABLET Take 300 mg by mouth daily . METFORMIN (GLUCOPHAGE) 1000 MG TABLET Take 1,000 mg by mouth 2 (two) times a day with meals . METOPROLOL TARTRATE (LOPRESSOR) 100 MG TABLET Take 100 mg by mouth 2 (two) times a day . OXYBUTYNIN (DITROPAN) 5 MG TABLET Take 5 mg by mouth 3 (three) times a day . PANTOPRAZOLE (PROTONIX) 40 MG TABLET Take 40 mg by mouth once daily . SIMVASTATIN (ZOCOR) 10 MG TABLET Take 10 mg by mouth nightly . Modified Medications Modified Medication Previous Medication BUPROPION (WELLBUTRIN XL) 150 MG 24 HR TABLET buPROPion (WELLBUTRIN XL) 150 MG 24 hr tablet Take 1 (one) tablet (150 mg total) by mouth daily . Take 1 (one) tablet (150 mg total) by mouth daily . BUPROPION (WELLBUTRIN XL) 300 MG 24 HR TABLET buPROPion (WELLBUTRIN XL) 300 MG 24 hr tablet Take 1 (one) tablet (300 mg total) by mouth every morning . Take 1 (one) tablet (300 mg total) by mouth every morning . RISPERIDONE (RISPERDAL) 3 MG TABLET risperiDONE (RISPERDAL) 3 MG tablet Take 1 (one) tablet (3 mg total) by mouth daily with dinner . Take 1 (one) tablet (3 mg total) by mouth daily with dinner . TRAZODONE (DESYREL) 100 MG TABLET traZODone (DESYREL) 100 MG tablet 1/2 to 1 tab daily hs sleep . 1/2 to 1 tab daily hs sleep . ZOLPIDEM (AMBIEN) 10 MG TABLET zolpidem (AMBIEN) 10 mg tablet Take 1 (one) tablet (10 mg total) by mouth at bedtime . Take 1 (one) tablet (10 mg total) by mouth at bedtime . Discontinued Medications No medications on file Assessment/Plan: Mental status examination: Patient was cooperative over the phone, does snore speech, needs redirections, reports distractibility and mild racing thoughts. Mood was reported to be depressed, mild. Denies any ongoing suicidal ideation and plan. Denies any ongoing thought content or thought process abnormalities. She denies any ongoing perceptual disturbances. Adequate concentration, does complain of slowed memory and thinking. Impulse control has been fair. Insight/judgment: Adequate. Language/intellect: Average Impression/ Plan: Bipolar disorder, type I, depressed, mild Generalized anxiety disorder Insomnia associated with mental disorder Global assessment of functioning : 60-65 Treatment Plan: Pharmacological management: Alternative medication plans were discussed with the patient/guardian. All relevant side effects and potential adverse effects were discussed with the patient/guardian. Standard cautions and potential benefits were discussed. FDA label and OFF label uses of medications were discussed. Patient/Guardian consented to the start/continuation of the following: Continue Ambien 10 mg daily at bedtime Continue trazodone half to 1 tablet daily at bedtime Continue Risperdal 3 mg 1daily Continue Klonopin 0.5 mg 3 times daily Continue Wellbutrin XL 300 mg daily in the morning and 150 mg daily at 3 PM Will monitor side effects and progress and adjust medications appropriately Crisis Intervention plan was discussed and agreed upon. Patient/Guardian will call 911 in case of emergency. Emergency contact information was provided to the patient/guardian. Laboratory and other tests: See orders. Psychotherapy: Continue with current provider Follow up as scheduled or return early if needed. School or community referral: None Treatment Goals and Objectives discussed. Other Referrals/Consults/Psychological Testing I have spent 15 minutes with the patient reviewing the HPI and Plan of Care. [facility]* Diagnosis Bipolar 1 disorder, depressed, mild (HCC)- Primary Insomnia due to mental disorder VICKIE (Generalized Anxiety Disorder) Generalized anxiety disorder [facility] Diagnosis Insomnia due to mental disorder VICKIE (Generalized Anxiety Disorder) Generalized anxiety disorder [facility]* Diagnosis Bipolar 1 disorder, depressed, mild (HCC)- Primary Insomnia due to mental disorder VICKIE (generalized anxiety disorder) Generalized anxiety disorder [facility]* Diagnosis Insomnia due to mental disorder VICKIE (generalized anxiety disorder) Generalized anxiety disorder [facility]* Diagnosis Insomnia due to mental disorder- Primary [facility]* Diagnosis Insomnia due to mental disorder [facility]* Diagnosis Bipolar 1 disorder, depressed, moderate (HCC)- Primary Insomnia due to mental disorder VICKIE (generalized anxiety disorder) Generalized anxiety disorder [facility]* Diagnosis Bipolar 1 disorder, depressed, moderate (HCC)- Primary Insomnia due to mental disorder VICKIE (generalized anxiety disorder) Generalized anxiety disorder [facility]* Diagnosis Onset Date Resolution Status Acute encephalopathy acute Altered mental status acute Coarse tremors acute [facility] Work Phone: Evaluation note* Diagnosis Onset Date Resolution Status Acute encephalopathy acute NAEEM (acute kidney injury) ac jessica Altered mental status acute Coarse tremors acute Hypertensive urgency acute UTI (urinary tract infection) [facility] Work Phone: Evaluation note* Diagnosis Bipolar 1 disorder, depressed, mild (HCC)- Primary Insomnia due to mental disorder VICKIE (generalized anxiety disorder) Generalized anxiety disorder [facility] Diagnosis Insomnia due to mental disorder VICKIE (generalized anxiety disorder) Generalized anxiety disorder [facility]* Diagnosis Bipolar 1 disorder, mixed, mild (HCC)- Primary Insomnia due to mental disorder VICKIE (generalized anxiety disorder) Generalized anxiety disorder documented in this encounter [facility] Discharge instructions Additional Instructions -Take Ceftin antibiotics treatment for UTI for 5 more days -Take new blood pressure medicine Hydralazine 25 mg three times a day. Hold if your BP <100/60 -Follow up with your primary doctor for blood pressure control and adjustment in medications if needed -[facility] History of Present Illness * Scott Mcallister MD - 04/09/2020 2:42 PM EST Telephone Visit Via Phone Call [facility] Jovana [facility] [phone] Telephone Visit [facility] 04/06/2020 Scott Mcallister MD Provider Location: [place] Patient Location Ecological Technical Officer: None Patient Location: Patient's Home Patient: Kathy Porter Date of : 1960 (59 y.o. female) PCP: Vicky Arnett MD I discussed risks, benefits and alternatives of a telephone visit telemedicine consultation with the patient (and any accompanying persons) including the risks that the patient's personal health details and medical records will be discussed over real-time, synchronous, interactive audio technology,the visit will not be recorded without the express consent of both the provider and the patient, and that there are inherent diagnostic limitations compared to [id number] evaluations. We elected toproceed with the telephone visit telemedicine consultation. Patient is here to establish care at my new location. She wants to continue her psychiatric care under my supervision. Patient was unable to come in person because her son and both have COVID HPI Pt is here for follow-up. Patient has been under my care for the last 3 years. She is working diagnosis of bipolar disorder and generalized anxiety disorder. Baseline stability is maintained on her current regimen. She does have mild depressed mood state at her baseline. With feelings of helplessness and worthlessness some days along with some tearfulness. She does tend to isolate herself and is not as social. Tends to sleep more and has difficulty getting out of bed in the morning some days. Denies any ongoing feelings of hopelessness or any ongoing morbid thoughts. Denied any ongoing suicide ideation intent or plan. Appetite is average. Reports low sex drive Has no ongoing manic mood symptoms. Denies any ongoing racing thoughts or flight of ideas or increased busyness. Speech is normal rate and rhythm. She denies any ongoing increased goal-directed activities. Anxiety control lives at baseline. Klonopin continues to help her breakthrough anxiety. Denies any ongoing drug or alcohol abuse. She has taken a break from counseling for now. We discussed the importance of getting back into that routine. Interpersonal issues discussed: Support was provided Medications assessed: Patient is compliant denies any side effects. Wants to continue the same plan The following portions of the patient's history were reviewed and updated as appropriate: allergies, current medications, past family history, past medical history, past social history, past surgicalhistory and problem list. Review of Systems Patient's Medications New Prescriptions No medications on file Previous Medications AMLODIPINE (NORVASC) 10 MG TABLET Take 10 mg by mouth nightly . DOXAZOSIN (CARDURA) 2 MG TABLET Take 2 mg by mouth 2 (two) times a day . ELUXADOLINE 100 MG TAB Take 100 mg by mouth daily . IRBESARTAN (AVAPRO) 300 MG TABLET Take 300 mg by mouth daily . METFORMIN (GLUCOPHAGE) 1000 MG TABLET Take 1,000 mg by mouth 2 (two) times a day with meals . METOPROLOL TARTRATE (LOPRESSOR) 100 MG TABLET Take 100 mg by mouth 2 (two) times a day . OXYBUTYNIN (DITROPAN) 5 MG TABLET Take 5 mg by mouth 3 (three) times a day . PANTOPRAZOLE (PROTONIX) 40 MG TABLET Take 40 mg by mouth once daily . SIMVASTATIN (ZOCOR) 10 MG TABLET Take 10 mg by mouth nightly . Modified Medications Modified Medication Previous Medication BUPROPION (WELLBUTRIN XL) 150 MG 24 HR TABLET buPROPion (WELLBUTRIN XL) 150 MG 24 hr tablet Take 1 (one) tablet (150 mg total) by mouth daily . Take 150 mg by mouth daily . BUPROPION (WELLBUTRIN XL) 300 MG 24 HR TABLET buPROPion (WELLBUTRIN XL) 300 MG 24 hr tablet Take 1 (one) tablet (300 mg total) by mouth every morning . Take 300 mg by mouth daily . CLONAZEPAM (KLONOPIN) 0.5 MG TABLET clonazePAM (KLONOPIN) 0.5 MG tablet Take 1 (one) tablet (0.5 mg total) by mouth 3 (three) times a day NEEDED FOR ANXIETY . Take 0.5 mg by mouth 3 (three) times a day NEEDED FOR ANXIETY . RISPERIDONE (RISPERDAL) 3 MG TABLET risperiDONE (RISPERDAL) 3 MG tablet Take 1 (one) tablet (3 mg total) by mouth daily with dinner . Take 3 mg by mouth daily with dinner . TRAZODONE (DESYREL) 100 MG TABLET traZODone (DESYREL) 100 MG tablet 1/2 to 1 tab daily hs sleep . Take 100 mg by mouth at bedtime SHE TAKES 1/2 TABLET AT BEDTIME . ZOLPIDEM (AMBIEN) 10 MG TABLET zolpidem (AMBIEN) 10 mg tablet Take 1 (one) tablet (10 mg total) by mouth at bedtime . Take 10 mg by mouth at bedtime . Discontinued Medications BUPROPION (WELLBUTRIN SR) 150 MG 12 HR TABLET Take 150 mg by mouth daily in the afternoon . Assessment/Plan: Medicine examination: Patient was cooperative. Reports mild depressed mood. Denied any ongoing racing thoughts or distractibility. Speech is normal rate and rhythm. Denied any ongoing perceptual disturbances. Denied any ongoing problems with thought process or thought content. Memory is baseline intact. Does report attention concentration problems and slowed thinking. Denied any ongoing suicidal ideation and plan. Denied any ongoing homicidal intent or plan. Review of systems: Negative Problem List Items Addressed This Visit Other Bipolar 1 disorder, depressed, mild (HCC) Relevant Medications risperiDONE (RISPERDAL) 3 MG tablet buPROPion (WELLBUTRIN XL) 150 MG 24 hr tablet buPROPion (WELLBUTRIN XL) 300 MG 24 hr tablet Insomnia due to mental disorder Relevant Medications zolpidem (AMBIEN) 10 mg tablet traZODone (DESYREL) 100 MG tablet VICKIE (Generalized Anxiety Disorder) Relevant Medications clonazePAM (KLONOPIN) 0.5 MG tablet I have spent 15 minutes with the patient reviewing the HPI and Plan of Care. documented in this encounter* Scott Mcallister MD - 05/31/2020 1:43 PM EST BEHAVIORAL HEALTH PSYCHIATRIC PROGRESS NOTE Date of service: 05/17/2020 Reason for visit: Psychotropic management follow-up. Interval History: Patient is seen in the office with her . Patient has been under my care care for the last 4 years and a working diagnosis is bipolar disorder type I and generalized anxiety disorder. Patient has history of severe manic depressive illness and she has undergone several roundsof ECTs and also underwent ketamine infusion therapy. Both of them without success. Baseline mood is depressed, mild, continues to have mild anhedonia, reports fatigue and lack of motivation. reported patient does not take initiative and is mostly sitting on the couch watching TV. Sleep hygiene has been fair. She has been able to fall asleep and stay asleep without any issues. She does feel helpless and worthless but denies any ongoing feelings of hopelessness or suicidal ideation. Sex drive is down. Appetite is okay. Anxiety control has been fair with the help of Klonopin. Denies excessive worries or anxiety but does not want to go outside the house because of breakthrough anxiety. Not as much worried about COVIDas she was in the past. Decreased breakthrough anxiety reported Currently she is not reporting any manic/hypomanic mood symptoms. Denies any pervasive irritabilityor agitation. Denies any ongoing racing thoughts or flight of ideas or increased goal-directed activities. Patient denies any ongoing increased busyness. Not reporting any ongoing psychotic features.Denies any ongoing perceptual disturbances She denies any ongoing drug or alcohol abuse. Interpersonal issues were discussed: Support was provided Medications assessed: Patient has been compliant denies any ongoing side effects. Mentating baseline mood stability Moods assessed: Mild depressive mood symptoms Goals and objectives of treatment Improve mood and maintain baseline stability Maintain adequate quality and quantity of sleep Maintain fair anxiety control The following portions of the patient's history were reviewed and updated as appropriate: allergies, current medications, past family history, past medical history, past social history, past surgicalhistory and problem list. Review of Systems Constitutional: Positive for fatigue. HENT: Negative. Respiratory: Negative. Cardiovascular: Negative. Gastrointestinal: Negative. Endocrine: Negative. Genitourinary: Negative. Physical Exam PSYCHIATRIC EXAM: Grooming & Hygiene: casually dressed and age appropriate General Behavior: Cooperative Psychomotor Activity: Slightly slowed Speech: Mildly slowed Flow to Thought: logical & goal directed Thought Associations: Intact Content of Thought: No evidence of suicidal idealizations / homicidal idealizations / delusions / obsessions Mood: Down Affect: Restricted Insight: limited Judgment: limited Orientation: alert and oriented to person, place, time Memory: Recent intact Attention: Slowed Concentration: Reduced Language: Average Fund of Knowledge: Average Labs/ Diagnostic Imaging reviewed: None Response to Medication: Adequate ASSESSMENT AND PLAN: Impression/ Plan: Bipolar disorder, type I, depressed, mild Generalized anxiety disorder Insomnia associated with mental disorder Global assessment of functioning as she is just trying to For just that I was switching this Sunday to Sunday that she just he was going medications informed he like last and this is basically it was already changed and that Treatment Plan: Pharmacological management: Alternative medication plans were discussed with the patient/guardian. All relevant side effects and potential adverse effects were discussed with the patient/guardian. Standard cautions and potential benefits were discussed. FDA label and OFF label uses of medications were discussed. Patient/Guardian consented to the start/continuation of the following: Continue Ambien 10 mg daily at bedtime Continue trazodone half to 1 tablet daily at bedtime Continue Risperdal 3 mg daily Continue Klonopin 0.5 mg 3 times daily Continue Wellbutrin XL 300 mg daily in the morning and 150 mg daily at 3 PM Will monitor side effects and progress and adjust medications appropriately Crisis Intervention plan was discussed and agreed upon. Patient/Guardian will call 911 in case of emergency. Emergency contact information was provided to the patient/guardian. Laboratory and other tests: See orders. Psychotherapy: Continue with current provider Follow up as scheduled or return early if needed. School or community referral: None Treatment Goals and Objectives discussed. Other Referrals/Consults/Psychological Testing Scott Mcallister documented in this encounter Assessments Diagnosis Bipolar 1 disorder, depressed, mild (HCC) VICKIE (Generalized Anxiety Disorder) Generalized anxiety disorder Insomnia due to mental disorder Diagnosis Bipolar 1 disorder, depressed, mild (HCC)- Primary VICKIE (Generalized Anxiety Disorder) Generalized anxiety disorder Insomnia due to mental disorder Advance Directives Documents on File Type Date Recorded Patient [employer] Machine [employer] Expl anation Advance Directives and Living Will Advance Directive Response Recorded Date/ Time Advance Directives No January 03, 2022 3:21pm Summary Purpose Family History No Family History Records FoundNo Family History Records FoundNo Family History Records FoundNo Family History Records Found Chief Complaint and Reason for Visit Chief Complaint Altered / Change Men deanna Status Reason for Visit Acute encephalopathy Altered mental status Coarse tremors Chief Complaint Altered / Change Men deanna Status Reason for Visit Acute encephalopathy NAEEM (acute kidney injury) Altered mental status Coarse tremors Hypertensive urgency UTI (urinary tract infection) Additional Source Comments Reason for Visit (unrecogniz ed section and content) Reason Comments Medication Management Reason Comments Anxiety Bipolar Reason Onset Date Comments Medication Refill 08/31/2020 Reason Onset Date Comments Medication Refill 12/07/2020 Reason Onset Date Comments Medication Refill 03/29/2021 Reason Onset Date Comments Medication Refill 05/16/2021 Reason Onset Date Comments Medication Refill 03/30/2022 Reason Onset Date Comments Medication Refill 05/10/2022 INFORMATION SOURCE (unrecogn ized section and content) DATE CREATED AUTHOR 09/14/2020 [facility] DATE CREATED AUTHOR AUTHOR'S ORGANIZ ATION 01/23/2022 [facility] DATE CREATED AUTHOR AUTHOR'S ORGANIZ ATION 05/06/2022 [facility] DATE CREATED AUTHOR AUTHOR'S ORGANIZ ATION 06/01/2022 [facility] Care Teams (unrecognized sec tion and content) Data Power Consultant Relationship Specialty Start Date End Date Vicky Arnett MD [address] [place] [address] PCP - General Family Medicine 04/05/20 Data Power Consultant Relationship Specialty Start Date End Date Vicky Arnett MD [address] [place] [address] PCP - General Family Medicine 04/05/20 Data Power Consultant Relationship Specialty Start Date End Date Vicky Arnett MD [address] [place] [address] PCP - General Family Medicine 04/05/20 Data Power Consultant Relationship Specialty Start Date End Date Vicky Arnett MD [address] [place] [address] PCP - General Family Medicine 04/05/20 Data Power Consultant Relationship Specialty Start Date End Date Vicky Arnett MD [address] [place] [address] PCP - General Family Medicine 04/05/20 Team Status: Active Member Role Status Dates Justin Francisco DO Emergency Provider Active Vicky Arnett MD Primary Care Provider Active Henry Burnett MD Admit Provider, Attending Provi nimisha Active Team Status: Active Member Role Status Dates Vicky Arnett MD Primary Care Provider Active Team Status: Inactive Member Role Status Dates Justin Francisco , Emergency Provider Active Vicky Arnett MD Primary Care Provider Active Henry Burnett MD Admit Provider, Attending Provi nimisha Active Graham Helm MD Other Provider Active Data Power Consultant Relationship Specialty Start Date End Date Vicky Arnett MD [address] [place] [address] PCP - General Family Medicine 04/05/20 Data Power Consultant Relationship Specialty Start Date End Date Vicky Arnett MD [address] [place] [address] PCP - General Family Medicine 04/05/20 Data Power Consultant Relationship Specialty Start Date End Date Vicky Arnett MD [address] [place] [address] PCP - General Family Medicine 04/05/20 Data Power Consultant Relationship Specialty Start Date End Date Vicky Arnett MD [address] [place] [address] PCP - General Family Medicine 04/05/20 Goals (unrecognized section and content) Goals may be documented in a n alternate section FOR RECORDS PERTAINING TO PATIENTS WHO ARE OR HAVE BEEN ENROLLED IN A CHEMICAL DEPENDENCY/SUBSTANCEABUSE PROGRAM, SOME INFORMATION MAY BE OMITTED. This clinical summary was aggregated from multiple sources. Caution should be exercised in using it in the provision of clinical care. This summary normalizes information from multiple sources, and as a consequence, information in this document may materially change the coding, format and clinical context of patient data. In addition, data may be omitted in some cases. CLINICAL DECISIONS SHOULD BE BASED ON THE PRIMARY CLINICAL RECORDS. [employer] provides no warranty or guarantee of the accuracy or completeness of information in this document.
[2023-05-02 11:56] LABS: Alanine Aminotransferase 14 U/L (14-59); Albumin Globulin Ratio 0.9; Albumin Level 3.3 g/dL (3.4-5.0); Alkaline Phosphatase 67 U/L (46-116); Anion Gap 11.5; Aspartate Amino Transferase 11 U/L (15-37); BUN Creatinine Ratio 9.1; Bilirubin Total 0.5 mg/dL (0.2-1.0); Calcium 9.3 mg/dL (8.5-10.1); Carbon Dioxide 28.4 mmol/L (21.0-32.0); Chloride 107 mmol/L (98-107); Estimated GFR (African America 33 (>=60); Estimated GFR (Non-African Ame 28 (>=60); Globulin 3.7 g/dL; Glucose 103 mg/dL (74-106); Potassium 3.9 mmol/L (3.5-5.1); Sodium 143 mmol/L (136-145)
== END 2023-05-02 10:06 | disposition home or self-care (01) ==
LOC: LAB 10:07
PROVIDERS: PCP Family Medicine; Visit Provider Family Medicine
DX: N28.9 Disorder of kidney and ureter, unspecified (principal)
CPT/HCPCS: 36415; 80053

== ENCOUNTER 2023-05-04 10:32 | Outpatient (OUT) | payer OTHER, SELFPAY ==
--- NOTE | 2023-05-04 10:37 | US_ITS ---
The [address] [address] Patient Name: KATHY PORTER MRN: [id number] date: 1960 Sex: F Assigned Patient Location: US Current Patient Location: US Accession/Order Number: [id number] Exam Date: 05/04/2023 10:40 Report Date: 05/04/2023 12:01 At the request of: VICKY SAUCEDA Procedure: US renal bladder EXAMINATION: US renal bladder HISTORY: disorder of kidney and ureter N28.9 COMPARISON: No relevant comparison available. TECHNIQUE: Ultrasound examination was performed of the kidneys and urinary bladder. FINDINGS: RIGHT KIDNEY: Contains a 1.0 cm benign-appearing cyst. Mild cortical thinning, 10 mm in thickness. No evidence of pelvocaliectasis, mass, or calculi. Normal renal cortical parenchymal echogenicity. Color Doppler demonstrates blood flow within the kidney. Kidney: 10.9 x 3.9 x 4.0 cm LEFT KIDNEY: Contains a 1.0 cm benign-appearing cyst and a nonobstructing 7 mm stone. Mild/moderate cortical thinning, 7 mm in thickness. Normal renal cortical parenchymal echogenicity. Color Doppler demonstrates blood flow within the kidney. Kidney: 10.4 x 4.7 x 3.6 cm BLADDER: No visible wall thickening, mass, or calculi. Post void residual: 76 mL URETERAL JETS: Visualized bilaterally. US/US renal bladder IMPRESSION: 1. Nonobstructing left nephrolithiasis. 2. Cortical thinning bilaterally, mild on right, mild-moderate on left. 3. Kdpcq-lm-bwrxtqlp amount of residual urine within the bladder following voiding, 76 mL. Electronically authenticated by: DESIRE GARCIA Date: 05/04/2023 12:01
== END 2023-05-04 10:33 | disposition home or self-care (01) ==
LOC: US 10:33
PROVIDERS: PCP Family Medicine; Visit Provider Family Medicine
DX: N28.9 Disorder of kidney and ureter, unspecified (principal); N20.0 Calculus of kidney
CPT/HCPCS: 76770

== ENCOUNTER 2023-08-17 16:17 | Emergency (ER) | payer OTHER, SELFPAY ==
[2023-08-17 16:24] VITALS: BP 154/115; PULSE 74; TEMP 37; O2SAT 98; BMI 36.3
--- NOTE | 2023-08-17 16:27 | XR_ITS ---
The [address] [address] Patient Name: KATHY PORTER MRN: [id number] date: 1960 Sex: F Assigned Patient Location: ED.MAIN Current Patient Location: ER Accession/Order Number: [id number] Exam Date: 08/17/2023 16:45 Report Date: 08/17/2023 17:21 At the request of: DEVI GAONA Procedure: XR knee RT 4V IMAGES REVIEWED: XR knee RT 4V, XR tibia fibula RT 2V COMPARISON: None available. CLINICAL INDICATION: pain , hyperextension injury FINDINGS/IMPRESSION: Acute intra-articular nondisplaced fracture of the proximal tibia-tibial plateau. Cortical step-off noted in the peripheral medial tibial plateau and the anterior tibial plateau. Associated large effusion with layering lipohemarthrosis. Otherwise the right knee appears intact. Distal extent of the right tibia/fibula appears intact. Osteopenia. Mild-moderate degenerative changes right knee. Electronically authenticated by: SALLIE MERLOS Date: 08/17/2023 17:21
--- NOTE | 2023-08-17 16:27 | XR_ITS ---
The [address] [address] Patient Name: KATHY PORTER MRN: [id number] date: 1960 Sex: F Assigned Patient Location: ED.MAIN Current Patient Location: ER Accession/Order Number: [id number] Exam Date: 08/17/2023 16:45 Report Date: 08/17/2023 17:21 At the request of: DEVI GAONA Procedure: XR tibia fibula RT 2V IMAGES REVIEWED: XR knee RT 4V, XR tibia fibula RT 2V COMPARISON: None available. CLINICAL INDICATION: pain , hyperextension injury FINDINGS/IMPRESSION: Acute intra-articular nondisplaced fracture of the proximal tibia-tibial plateau. Cortical step-off noted in the peripheral medial tibial plateau and the anterior tibial plateau. Associated large effusion with layering lipohemarthrosis. Otherwise the right knee appears intact. Distal extent of the right tibia/fibula appears intact. Osteopenia. Mild-moderate degenerative changes right knee. Electronically authenticated by: SALLIE MERLOS Date: 08/17/2023 17:21
--- NOTE | 2023-08-17 16:30 | ED.LOWEXI1 ---
HPI HPI - Extremity Injury (Lower) General Chief Complaint: Extremity Injury, Lower Stated Complaint: Lower Injury Time Seen by Provider: 08/17/23 16:18 Source: patient Mode of arrival: Wheelchair History of Present Illness HPI Narrative: Patient is a 62-year-old female presents to the ER with concerns of significant right knee pain. Inability to bear weight. Patient states she was outside when a great Jeff weighing over 90 pounds struck her knee while running, patient felt her knee hyperextended. She felt a pop patient notes she was unable to get up on her own power with pain about the knee joint. Patient notes pain radiates from the knee down to her ankle. Patient calm but grimacing with motion and movement. She denies any head or neck injury. MD complaint: Reports knee injury Onset (ago): hour(s) (1) Injury: Right: knee Place: Reports home Severity: severe Relieving factors: Reports nothing Exacerbating factors: Reports nothing Context: Reports direct blow Associated symptoms: Reports snap/pop sensation and swelling Related Data Previous Rx's ?Medication ?Instructions ?Recorded ondansetron HCl 4 mg tablet 4 mg PO Q6H PRN nausea and 08/17/23 vomiting #12 tabs oxycodone-acetaminophen 5 mg-325 1 tab PO Q6H PRN pain 5 days #20 08/17/23 mg tablet (Percocet) tabs Allergies Allergy/AdvReac Type Severity Reaction Status Date / Time Sulfa (Sulfonamide Allergy Severe Verified 08/17/23 16:24 Antibiotics) Opioid HPI Opioid Management Most Recent Pain and Opioid Data: Last Pain Scale 6 08/17/23 18:37 Last MAR Pain Assessment 08/17/23 18:37 Review of Systems ROS Constitutional Denies: fever or chills Eyes Denies: change in vision Ears, nose, mouth, and throat Denies: throat pain or neck pain Cardiovascular Denies: chest pain or palpitations Respiratory Denies: shortness of breath Gastrointestinal Denies: abdominal pain Musculoskeletal Reports: extremity pain (right knee) Integumentary/Breast Denies: rash or itching Neurological Denies: headache Psychiatric Denies: anxiety Hematologic/Lymphatic Denies: easy bruising Exam Narrative Exam Narrative: Vital signs reviewed and nurse's notes. The patient is not hypoxic. General: Alert, no acute distress, patient resting comfortably Skin: warm, intact, no pallor noted Head: Normocephalic, atraumatic Eye: Normal conjunctiva, no exudates Respiratory: No acute distress, lungs CTA Musculoskeletal: No evidence of deformity to the Right knee. There is mild amount of swelling. There is no ecchymosis. No erythema or warmth noted. DP and PT pulses are intact 2+. Normal sensation, normal capillary refill less than 2 seconds. There is no cyanosis or mottling noted.No evidence of dropfoot, ankle with 5 out of 5 dorsiflexion and plantarflexion. The patient has tenderness to anterior aspect of the right knee. The patient has Pain with any varus or valgus stress. unable to preform anterior drawer / Eri with pain. The patient was able to flex and extend although with pain. Patient was able to extend leg off the cart with pain but extensor mech appears intact. . No tenderness noted to the 5th MT, midfoot, ankle .. + pain to mid tib fib, ankle joint nontender, no pain with gentle stressing/ anterior drawer but pt feels pain radiating for knee to ankle. There is no pain with calcaneal squeeze, achilles tendon is intact and no defect is palpated. The patient has no pelvic instability. The patient has no shortening or rotation noted to the bilateral lower extremities. No pain to hips bilateral with motion. Neurological: alert and orient x4, normal sensory and motor observed. Psychiatric: Cooperative Constitutional Vital Signs, click to edit/add: Last Vital Signs Temp 98.6 F 08/17/23 16:24 Pulse 74 08/17/23 16:24 Resp 20 08/17/23 16:24 BP 154/115 H 08/17/23 16:24 Pulse Ox 98 08/17/23 16:24 O2 Del Method Room Air 08/17/23 16:24 Course Vital Signs Vital signs: Vital Signs Temperature 98.6 F 08/17/23 16:24 Pulse Rate 74 08/17/23 16:24 Respiratory Rate 20 08/17/23 16:24 Blood Pressure 154/115 H 08/17/23 16:24 Pulse Oximetry 98 08/17/23 16:24 Oxygen Delivery Method Room Air 08/17/23 16:24 Temperature 98.6 F 08/17/23 16:24 Pulse Rate 74 08/17/23 16:24 Respiratory Rate 20 08/17/23 16:24 Blood Pressure 154/115 H 08/17/23 16:24 Pulse Oximetry 98 08/17/23 16:24 Oxygen Delivery Method Room Air 08/17/23 16:24 MDM - Extremity Injury (Lower) MDM Narrative Medical decision making narrative: Patient in notable pain, do not appreciate deformity and with transfer from wheelchair to bed I do not suspect knee dislocation, patient does have tenderness to the anterior knee. Ice packs applied, patient being medicated for pain pending imaging studies. Radius, nondisplaced proximal tibia fracture, patient appears more comfortable complaining of nausea, Zofran given. We discussed injury noted on x-ray. She is intact neurovascularly distally. Contacted orthopedics on-call he is agreeable to see the patient on Sunday for reevaluation. Recommends knee immobilizer nonweightbearing strict ice and elevation. Patient and at bedside aware of recommendations. She will take MiraLAX to avoid constipation. We discussed she is not to be weightbearing on the right leg, she is instructed with crutches here prior to discharge but may need the use of a walker at home. They will see if they can find 1 of these if needed through the weekend but aware that she should be nonweightbearing with the leg elevated most of the weekend to help with the swelling. Discussed expected pain relief with Percocet. Patient verbalized understanding along with at bedside. The patient is to followup with primary care physician in next 2-[address] STEEN ON SUNDAY 10:45am or to return to the emergency department should any of the signs or symptoms worsen or new symptoms develop. Patient had questions answered. The patient agrees with the following Diagnosis and Treatment plan and the patient will be discharged home. Imaging Data right knee/ tib fib: Attestation: I personally reviewed and interpreted this imaging study as follows: Radiologist's impression: IMAGES REVIEWED: XR knee RT 4V, XR tibia fibula RT 2V COMPARISON: None available. CLINICAL INDICATION: pain , hyperextension injury FINDINGS/IMPRESSION: Acute intra-articular nondisplaced fracture of the proximal tibia-tibial plateau. Cortical step-off noted in the peripheral medial tibial plateau and the anterior tibial plateau. Associated large effusion with layering lipohemarthrosis. Otherwise the right knee appears intact. Distal extent of the right tibia/fibula appears intact. Osteopenia. Mild-moderate degenerative changes right knee. Electronically authenticated by: SALLIE MERLOS Date: 08/17/2023 17:21 Discharge Plan Discharge Stand Alone Forms: Portal Instructions Chief Complaint: Extremity Injury, Lower Clinical Impression: Acute pain of right knee, Fracture of proximal end of right tibia Patient Disposition: Home, Self-Care Time of Disposition Decision: 18:07 Condition: Good Prescriptions / Home Meds: New ondansetron HCl 4 mg tablet 4 mg PO Q6H PRN (Reason: nausea and vomiting) Qty: 12 0RF oxycodone-acetaminophen [Percocet] 5-325 mg tablet 1 tab PO Q6H PRN (Reason: pain) 5 Days Qty: 20 0RF Print Language: Chinese Instructions: Leg Fracture (ED) Referrals: Peter Arnett MD [Primary Care Provider] - 1 week Kev Steen MD [Physician] - 08/20/23 10:45 am Discharge Date/Time: 08/17/23 18:40 Procedures ED Procedure Instructions Procedures Procedures: Placed in a knee immobilizer to the right leg, neurovascular intact status post application with good alignment.
[2023-08-17] MEDS: ONDANSETRON 4 MG RAPDIS TABLET SL (16:41)
[2023-08-17] MEDS: HYDROMORPHONE HCL 1 MG/ML CARTRIDGE 1.5 MG IM (16:41)
== END 2023-08-17 18:40 | disposition home or self-care (01) ==
PROVIDERS: Emergency Provider Emergency Medicine; PCP Family Medicine
DX: S82.144A Nondisplaced bicondylar fracture of right tibia, initial encounter for closed fracture (principal); W54.1XXA Struck by dog, initial encounter; M25.561 Pain in right knee
CPT/HCPCS: 73564; 73590; 96372; 99285; J1170

== ENCOUNTER 2023-09-03 12:08 | Outpatient (OUT) | payer OTHER, SELFPAY ==
--- NOTE | 2023-09-03 | XR_ITS ---
The [address] [address] Patient Name: KATHY PORTER MRN: [id number] date: 1960 Sex: F Assigned Patient Location: Current Patient Location: Accession/Order Number: [id number] Exam Date: 09/03/2023 12:10 Report Date: 09/04/2023 11:20 At the request of: DESIRE DEGROOT Procedure: XR knee RT 2V PROCEDURE: XR knee RT 2V HISTORY: RIGHT KNEE PAIN COMPARISON: XR knee right 08/17/2023 FINDINGS: BONES:Band of irregular sclerosis across the proximal tibial metaphysis consistent with prior impaction fracture of ventricular healing. Increased density at site of separate fragment/cortical disruption of anterior tibial plateau. SOFT TISSUES:No visible soft tissue swelling. EFFUSION:Small joint effusion. OTHER: Negative. XR/XR knee RT 2V IMPRESSION: 1. Stable/normal alignment and ongoing bone healing of proximal tibial fracture. 2. Small joint effusion; decreased compared to prior study. Electronically authenticated by: DESIRE GARCIA Date: 09/04/2023 11:20
--- OUTSIDE RECORDS SUMMARY | 2023-09-03 12:20 | XMS_ITS | CCD ---
Author Organization [facility] ion [facility] Care Team Providers Care Analytics Intern Name Role Phone Peter Arnett Primary Care Provider DO Justin Francisco Emergency Provider MD Peter Arnett Primary Care Provider [phone] MD Henry Burnett Admit Provider [phone] MD Henry Burnett Attending Provider MD Graham Helm Other Provider DR PETER ARNETT Admitting Unavailable DR PETER ARNETT Attending Unavailable DR PETER ARNETT Primary Care Unavailable DR PETER ARNETT Consulting Unavailable WILLOWOT, UPENDER Admitting Unavailable GEHLOT, UPENDER Attending Unavailable DR PETER ARNETT Primary Care Unavailable GEHLOT, UPENDER Consulting Unavailable GEHLOT, UPENDER Admitting Unavailable GEHLOT, UPENDER Attending Unavailable DR PETER ARNETT Primary Care Unavailable GEHLOT, UPENDER Consulting Unavailable DR PETER ARNETT Admitting Unavailable DR PETER ARNETT Attending Unavailable DR PETER ARNETT Primary Care Unavailable DR PETER ARNETT Consulting Unavailable DR DANII CARTER V Consulting Unavailable Peter Arnett MD Primary Care Provider Peter Arnett Primary Care Unavailable Henry Burnett Attending Unavailable Henry Burnett Admitting Unavailable Graham Helm Consulting Unavailable GEHLOT, UPENDER Attending Unavailable PETER ARNETT Primary Care Unavailable GEHLOT, UPENDER Attending Unavailable PETER ARNETT Primary Care Unavailable GEHLOT, UPENDER Attending Unavailable PETER ARNETT Primary Care Unavailable GEHLOT, UPENDER Attending Unavailable PETER ARNETT Primary Care Unavailable PETER ARNETT Primary Care Unavailable BURAK, NELLIE Attending Unavailable PATTHLOT, UPENDER Attending Unavailable PETER ARNETT Primary Care Unavailable HOJosef, PETER Primary Care Unavailable PATTHLOT, UPENDER Attending Unavailable Peter Arnett Primary Care Physician MATT CARVALHO Attending Unavailab MATT Bueno Attending Unavailab Peter Hernandez Referring Unavailable Allergies Allergy Classification Reported Allergen(s) Allergy Type Date of Onset Reaction(s) Facility Sulfonamides (antibiotic) (3 sources) Sulfonamides (Antibiotic) Drug Allergy 2 Rash, Swelling [facility] (16 sources) Sulfonamides (Antibiotic); Translations: [Sulfa (Sulfonamide Antibiotics)] Propensity to adverse reactions to drug 2 Rash, Swelling [facility] (1 source) Sulfonamides (Antibiotic) Drug allergy (disorder) 3 [facility] (2 sources) Sulfonamides (Antibiotic); Translations: [sulfa drugs] Drug allergy Cutaneous eruption (morphologic abnormality) [facility] Medications Current Medications Medication Drug Class(es) Dates Sig (Normalized) Sig (Original) amLODIPine 10 mg oral tablet (18 sources) Dihydropyridine Calcium Channel Dimple Start: 10-02-2019 take 1 tablet by mouth once daily amLODIPine (NORVASC) 10 MG tablet Take 1 (one) tablet (10 mg total) by mouth nightly . 0 03/21/2020 Active B-12 (1 source) Start: 08-21-2023 B-12 Start Date: 08/21/23 Status: Ordered cefuroxime 250 mg oral tablet (1 source) Cephalosporin Antibacterial Start: 01-05-2022 take 250 mg by mouth twice daily Cefuroxime Axetil Active 250 MG PO Twice daily 10 January 05, 2022 12:00am cholecalciferol 0.025 mg oral capsule (10 sources) Vitamin D Start: 01-03-2022 End: 01-03-2022 take 1 capsule by mouth once daily Cholecalciferol (Vitamin D3) (Vitamin D3) 25 mcg (1,000 unit) Capsule Active 25 MCG PO Daily January 03, 2022 12:00am Start: 03-23-2021 cholecalcifero l, vitamin D3, 50 mcg (2,000 unit) cap clonazePAM 0.5 mg oral tablet (20 sources) Benzodiazepine Start: 08-16-2023 ClonazePAM 0.5 mg Tab 180 tab(s), 0 Refill(s), Refills(s) 0 Start Date: 08/16/23 Status: Ordered Start: 01-09-2022 End: 08-28-2022 take 1 tablet [...] tablet 0 07/19/2021 10/14/2021 Discontinued (Reorder) Start: 12-15-2019 End: 03-07-2021 take 1 tablet by mouth three times daily as needed for anxiety clonazePAM (KLONOPIN) 0.5 MG tablet Indications: Insomnia due to mental disorder , VICKIE (generalized anxiety disorder) Take 1 (one) tablet (0.5 mg total) by mouth 3 (three) times a day NEEDED FOR ANXIETY . 270 tablet 0 12/07/2020 Active doxazosin 2 mg oral tablet (18 sources) alpha-Adrenergic Dimple Start: 10-02-2019 take 1 tablet by mouth twice daily [...] meal/food hydrALAZINE hydrochloride 25 mg oral tablet (2 sources) Arteriolar Vasodilator Start: 07-05-2022 Start: 01-05-2022 take 25 mg by mouth three times daily Hydralazine Active 25 MG PO Three times daily January 05, 2022 12:00am irbesartan 300 mg oral tablet (18 sources) Angiotensin 2 Receptor Dimple Start: 10-02-2019 take 1 tablet by mouth once daily [...] Active metoprolol tartrate 100 mg oral tablet (18 sources) beta-Adrenergic Dimple Start: 01-03-2022 take 100 mg by mouth every twelve hours Metoprolol Tartrate Active 100 MG PO Q12January 03, 2022 12:00am Start: 02-06-2020 take 1 tablet by [address]ne th twice daily metoprolol tartrate (LOPRESSOR) 100 MG tablet Take 1 (one) tablet (100 mg total) by mouth 2 (two) times a day . 0 02/06/2020 Active Start: 08-25-2018 take 1 tablet by wayne th twice daily metoprolol 100 mg ER Tab 100 mg = 1 tab(s), Oral, BID, Refills(s) 0 Start Date: 08/25/18 Status: Ordered OLANZapine 15 mg oral tablet (8 sources) [...] pantoprazole 40 mg delayed release oral tablet (18 sources) Proton Pump Inhibitor Start: 08-16-2023 Start: 01-26-2016 take 1 tablet by wayne th once daily pantoprazole (PROTONIX) 40 MG tablet Take 1 (one) tablet (40 mg total) by mouth once daily . 0 01/26/2016 Active simvastatin 10 mg oral tablet (18 sources) HMG-CoA Reductase Inhibitor Start: 08-16-2023 simvastatin 10 mg Ta b 90 tab(s), 0 Refill(s), Refills(s) 0 Start Date: 08/16/23 Status: Ordered Start: 01-25-2020 take 1 tablet by wayne th once daily simvastatin (ZOCOR) 10 MG tablet Take 1 (one) tablet (10 mg total) by mouth nightly . 0 01/25/2020 Active SUMAtriptan 100 mg oral tablet (9 sources) Serotonin-1b and Serotonin-1d Receptor Agonist Start: 11-25-2020 SUMAtriptan (IMITREX ) 100 MG tablet PRN per . 0 11/25/2020 Active Start: 11-25-2020 SUMAtriptan (I MITREX) 100 MG tablet 24 hr trospium chloride 60 mg extended release oral capsule (1 source) Cholinergic Muscarinic Antagonist Start: 08-21-2023 take 1 capsule by mouth once daily in the morning trospium 60 mg oral capsule, extended release 60 mg = 1 cap(s), Oral, qAM, # 30 cap(s), Refills(s) 11, Pharmacy: [facility]/pharmacy #[id number], 158, cm, 08/21/23 10:13:00 EDT, Height/Length Dosing, 88.5, kg, 08/21/23 10:13:00 EDT, Weight Dosing Start Date: 08/21/23 Status: Ordered divalproex sodium 500 mg delayed release oral [...] daily . 90 tablet 0 10/14/2021 Active Vitamin D (1 source) Start: 08-21-2023 Vitamin D Inte rnational_Unit, Oral Start Date: 08/21/23 Status: Ordered Completed/Discontinued Medications Medication Drug Class(es) Dates Sig [...] 90 tablet 0 09/24/2020 12/23/2020 Active Start: 01-07-2020 End: 12-23-2020 take 1 tablet by mouth [...] the afternoon . 0 04/06/2020 Discontinued (Error) risperiDONE 3 mg oral tablet (16 sources) [...] . 90 tablet 0 09/24/2020 Active Start: 12-15-2019 End: 04-06-2020 take 0.5 tablet by mouth [...] 1 tablet by [address]ne th once daily as needed zolpidem (AMBIEN) 5 [...] Active Problems Problem Classification Problem Date Documented Date Episodic/Chronic Anxiety disorders (20 sources) Generalized anxiety disorder; Translations: [Generalized anxiety disorder] Onset: 04-06-2020 04-06-2020 Chronic Calculus of urinary tract (2 sources) Kidney stone; Translations: [Calculus of kidney] Onset: 08-21-2023 Episodic Chronic kidney disease (2 sources) Chronic kidney disease; Translations: [Chronic kidney disease, unspecified] Onset: 07-18-2019 Chronic Diabetes mellitus without complication (1 source) Type 2 diabetes mellitus 10-14-2018 Chronic Disorders of lipid metabolism (1 source) Hyperlipidemia Onset: 07-18-2019 08-16-2023 Chronic Essential hypertension (1 source) Hypertensive disorder 10-14-2018 Chronic Genitourinary symptoms and ill-defined conditions (2 sources) Mixed incontinence; Translations: [Incontinence] Onset: 08-21-2023 Chronic Hypertension with complications and secondary hypertension (3 sources) Hypertensive urgency ; Translations: [Hypertensive urgency] Onset: 01-03-2022 01-03-2022 Chronic Miscellaneous mental health disorders (20 sources) Insomnia disorder related to another mental disorder; Translations: [Insomnia due to other mental disorder] Onset: 04-06-2020 04-06-2020 Chronic Mood disorders (20 sources) Mild depressed bipolar I disorder; Translations: [Bipolar disorder, current episode depressed, mild] Onset: 03-07-2016 Resolved: 08-25-2018 04-06-2020 Chronic Other diseases of kidney and ureters (1 source) Acquired renal cyst without neoplastic change; Translations: [Cyst of kidney, acquired] Onset: 08-21-2023 Episodic Other diseases of kidney and ureters (1 source) Cyst of kidney 08-21-2023 Episodic Other hereditary and degenerative nervous system conditions [...] Test Name Value Interpretation Reference Range Facility [facility] 08-23-2023 Lab Reports [id number]# 1.[facility] Lab Report[facility] 08-22-2023 Lab Reports [id number]# 1.[facility] Physician Referralon 024 Physician Referral [id number]#1. 00[facility] RAD - Ultrasound Reporton RAD - Ultrasound Report [id number]#1 .00[facility] Screenson 08-22-2023 Screens [id number]# 1.00TIFF [facility] Ambulatory Visit Summaryon 0 08-21-2023 Ambulatory Visit Summary KATHY PORTER :1960 Visit Date:08/21/2023 Ambulatory Visit Instructions Your Diagnosis Kidney stones Mixed incontinence Chronic kidney disease Renal cyst Your Care Team Attending Physician - PRANAV CARVALHO PA-C Primary Care Physician - Peter Arnett MD Referring Physician - Peter Arnett MD This Is Your Medications List oxybutynin (oxybutynin 5 mg Tab) Contact prescribing physician if questions or concerns amlodipine (Norvasc 10 mg Tab) amlodipine (amLODIPine 10 mg Tab) buPROPion (Wellbutrin XL 150 mg/24 hours Tab-ER) buPROPion (Wellbutrin XL 300 mg/24 hours Tab-ER) buPROPion (buPROPion 300 mg/24 hours ER Tab) clonazepam (ClonazePAM 0.5 mg Tab) clonazepam (Klonopin 0.5 mg Tab) cyanocobalamin (B-12) doxazosin (Cardura 2 mg Tab) doxazosin (doxazosin 2 mg Tab) eluxadoline (Viberzi 100 mg oral tablet) ergocalciferol (Vitamin D) hydrALAZINE (hydrALAZINE 25 mg Tab) irbesartan (irbesartan 300 mg Tab) irbesartan (irbesartan 75 mg Tab) metformin (metformin 1000 mg Tab) metoprolol (metoprolol 100 mg ER Tab) ondansetron (Zofran 4 mg Tab) pantoprazole (Pantoprazole [address] Tab) risperidone (Risperdal 3 mg Tab) simvastatin (simvastatin 10 mg Tab) trazodone (traZODONE 100 mg Tab) zolpidem (Ambien 10 mg Tab) [Image Removed: STOP]Stop taking these medications irbesartan (Avapro 300 mg Tab) metoprolol (metoprolol tartrate 100 mg Tab) pantoprazole (Protonix 40 mg Tab-DR) simvastatin (Zocor 10 mg Tab) Procedures Performed Kidney Blockage Surgical Procedure (2002), Cholecystectomy (1997), Labia, Pilar cyst, Urethra. Discharge Vitals Heart Rate (Peripheral) 74 Respiratory Rate 19 Blood Pressure 108/63 Height 158 cm Height 62 in Weight 88.5 kg Weight 194.7 lb BMI 35.45 What to do next You Need to Schedule the Following Appointments Follow Up with DEVEN GUTIERREZ, MARLENE BACON When: Comments: 3 mos (new med) Where: [address] [address] [id number] Medications What How Much When Instructions Unchanged oxybutynin (oxybutynin 5 mg Tab) 3 times a day 1 Unknown, 0 Refill(s) Unchanged amlodipine (amLODIPine 10 mg Tab) 90 tab(s), 0 Refill(s) Contact prescribing physician if questions or concerns Unchanged amlodipine (Norvasc 10 mg Tab) 1 Tablets By Mouth Every day Contact prescribing physician if questions or concerns Unchanged buPROPion (buPROPion 300 mg/ 24 hours ER Tab) 1 Unknown, 0 Refill(s) Contact prescribing physician if questions or concerns Unchanged buPROPion (Wellbutrin XL 150 mg/ 24 hours Tab-ER) 1 Tablets By Mouth Every 24 hours take at noon Contact prescribing physician if questions or concerns Unchanged buPROPion (Wellbutrin XL 300 mg/ 24 hours Tab-ER) 1 Tablets By Mouth Every day IN AM Contact prescribing physician if questions or concerns Unchanged clonazepam (ClonazePAM 0.5 mg Tab) 180 tab(s), 0 Refill(s) Contact prescribing physician if questions or concerns Unchanged clonazepam (Klonopin 0.5 mg Tab) 1 Tablets By Mouth 3 times a day PRN ANXIETY F41.1 Contact prescribing physician if questions or concerns Unchanged cyanocobalamin (B-12) Contact prescribing physician if questions or concerns Unchanged doxazosin (Cardura 2 mg Tab) 1 Tablets By Mouth 2 times a day Contact prescribing physician if questions or concerns Unchanged doxazosin (doxazosin 2 mg Tab) Contact prescribing physician if questions or concerns Unchanged eluxadoline (Viberzi 100 mg oral tablet) Every other day Contact prescribing physician if questions or concerns Unchanged ergocalciferol (Vitamin D) By Mouth Contact prescribing physician if questions or concerns Unchanged hydrALAZINE (hydrALAZINE 25 mg Tab) 3 times a day 1 Unknown, 0 Refill(s) Contact prescribing physician if questions or concerns Unchanged irbesartan (irbesartan 300 mg Tab) Contact prescribing physician if questions or concerns Unchanged irbesartan (irbesartan 75 mg Tab) 1 Tablets By Mouth Every day Contact prescribing physician if questions or concerns Unchanged metformin (metformin 1000 mg Tab) 1 Tablets By Mouth 2 times a day Contact prescribing physician if questions or concerns Unchanged metoprolol (metoprolol 100 mg ER Tab) 1 Tablets By Mouth 2 times a day Contact prescribing physician if questions or concerns Unchanged ondansetron (Zofran 4 mg Tab) 1 TAB EVERY 4-6 HOURS PRN NAUSEA Contact prescribing physician if questions or concerns Unchanged pantoprazole (Pantoprazole [address] Tab) 30 unknown unit, 0 Refill(s), TAKE 1 TABLET BY MOUTH EVERY DAY Contact prescribing physician if questions or concerns Unchanged risperidone (Risperdal 3 mg Tab) 1 Tablets By Mouth Every day Contact prescribing physician if questions or concerns Unchanged simvastatin (simvastatin 10 mg Tab) 90 tab(s), 0 Refill(s) Contact prescribing physician if questions or concerns Unchanged trazodone (traZODONE 100 mg Tab) See instructions 1/ 2 tab(s (more content not included)... Normal [facility] Patient Educationon 08-21-19 Patient Education Urology Urinary Incontinence Urinary incontinence refers to a condition in which a person is unable to control where and when to pass urine. A person with this condition will urinate involuntarily. This means that the person urinates when he or she does not mean to. What are the causes? This condition may be caused by: ? Medicines. ? Infections. ? Constipation. ? Overactive bladder muscles. ? Weak bladder muscles. ? Weak pelvic floor muscles. These muscles provide support for the bladder, intestine, and, in women, the uterus. ? Enlarged prostate in men. The prostate is a gland near the bladder. When it gets too big, it can pinch the urethra. With the urethra blocked, the bladder can weaken and lose the ability to empty properly. ? Surgery. ? Emotional factors, such as anxiety, stress, or post-traumatic stress disorder (PTSD). ? Spinal cord injury, nerve injury, or other neurological conditions. ? Pelvic organ prolapse. This happens in women when organs move out of place and into the vagina. This movement can prevent the bladder and urethra from working properly. What increases the risk? The following factors may make you more likely to develop this condition: ? Age. The older you are, the higher the risk. ? Obesity. ? Being physically inactive. ? and childbirth. ? Menopause. ? Diseases that affect the nerves or spinal cord. ? Long-term, or chronic, coughing. This can increase pressure on the bladder and pelvic floor muscles. What are the signs or symptoms? Symptoms may vary depending on the type of urinary incontinence you have. They include: ? A sudden urge to urinate, and passing urine involuntarily before you can get to a bathroom (urge incontinence). ? Suddenly passing urine when doing activities that force urine to pass, such as coughing, laughing, exercising, or sneezing (stress incontinence). ? Needing to urinate often but urinating only a small amount, or constantly dribbling urine (overflow incontinence). ? Urinating because you cannot get to the bathroom in time due to a physical disability, such as arthritis or injury, or due to a communication or thinking problem, such as Alzheimer's disease (functional incontinence). How is this diagnosed? This condition may be diagnosed based on: ? Your medical history. ? A physical exam. ? Tests, such as: ? Urine tests. ? X-rays of your kidney and bladder. ? Ultrasound. ? CT scan. ? Cystoscopy. In this procedure, a health care provider inserts a tube with a light and camera (cystoscope) through the urethra and into the bladder to check for problems. ? Urodynamic testing. These tests assess how well the bladder, urethra, and sphincter can store and release urine. There are different types of urodynamic tests, and they vary depending on what the test is measuring. To help diagnose your condition, your health care provider may recommend that you keep a log of when you urinate and how much you urinate. How is this treated? Treatment for this condition depends on the type of incontinence that you have and its cause. Treatment may include: ? Lifestyle changes, such as: ? Quitting smoking. ? Maintaining a healthy weight. ? Staying active. Try to get 150 minutes of moderate-intensity exercise every week. Ask your health care provider which activities are safe for you. ? Eating a healthy diet. ? Avoid high-fat foods, like fried foods. ? Avoid refined carbohydrates like white bread and white rice. ? Limit how much alcohol and caffeine you drink. ? Increase your fiber intake. Healthy sources of fiber include beans, whole grains, and fresh fruits and vegetables. ? Behavioral changes, such as: ? Pelvic floor muscle exercises. ? Bladder training, such as lengthening the amount of time between bathroom breaks, or using the bathroom at regular intervals. ? Using techniques to suppress bladder urges. This can include distraction techniques or controlled breathing exercises. ? Medicines, such as: ? Medicines to relax the bladder muscles and prevent bladder spasms. ? Medicines to help slow or prevent the growth of a man's prostate. ? Botox injections. These can help relax the bladder muscles. ? Treatments, such as: ? Using pulses of electricity to help change bladder reflexes (electrical nerve stimulation). ? For women, using a front office medical assistant to prevent urine leaks. This is a small, tampon-like, disposable device that is inserted into the urethra. ? Injecting collagen or carbon beads (bulking agents) into the urinary sphincter. These can help thicken tissue and close the bladder opening. ? Surgery. Follow these instructions at home: Lifestyle ? Limit alcohol and caffeine. These can fill your bladder quickly and irritate it. ? Keep yourself clean to help prevent odors and skin damage. Ask your health care provider about special skin creams and cleansers that can protect the skin from urine. ? (more content not included)... [facility] Reminderson 08-21-2023 Reminders - From: Evy Gunderson To: KRISSY Carvalho; Sent: 08/21/2023 10:39:44 EDT Show up: 06/20/2024 10:38:00 EDT Subject: KUB and RAMONA Reminder Message Pt needs RAMONA and KUB prior to appt in 1 year. Typically goes to [facility]. Normal [facility] XR LSPINE MIN 4 VIEWSon 10-2 XR LSPINE MIN 4 VIEWS EXAMINATION: XR [...] DANII CARTER Date: 2022-01-20 07:20 Normal [facility] DEPAKENE/VALPROICon 01-20-20 22 DEPAKENE 79.2 ug/ml Normal 50.0-100.0 [facility] Comment on above: Performed By: #### V ALP #### [facility] [address] [address] [address] Julio Goddard Albumin [Mass/volume] in Ser um or PlasmaOrdered By: Obsonjadanaga Daromar on 01-05-2022 Albumin [Mass/Vol] 3.0 g/dL 3.2-5.5 [facility] Basophils Auto (Bld) [#/Vol] Ordered By: Obsonjada Daromar on 01-05-2022 Basophils (Bld) [#/Vol] 0.0 10*3/uL 0.0-0.2 [facility] Basophils/100 WBC Auto (Bld) Ordered By: Obsonjadanaga De Los Santosomar on 01-05-2022 Basophils/100 WBC (Bld) 0.6 % . F [facility] Blood hemoglobin measurement (mass/volume)Ordered By: Obda Daromar on 01-05-2022 Hemoglobin (Bld) [Mass/Vol] 12.8 g/dL 11.8-15.4 [facility] Blood leukocytes automated c ount (number/volume)Or[facility] on 01-05-2022 WBC (Bld) [#/Vol] 5.3 10*3/uL 4.5-11.0 [facility] Complete Blood Count Auto Di ffon 01-05-2022 Basophils (Bld) [#/Vol] 0.0 10*3/uL Normal 0.0-0.2 [facility] Comment on above: Result Comment: PERF ORMED BY: [place] [address] PATHOLOGIST MANAGER SOCIAL RESPONSIBILITY ANTONY ELIAS M.D. Performed By: #### C BC, CMP, PHOS, MG, LIPID #### [address] Basophils/100 WBC (Bld) 0.6 % Normal . F [facility] Comment on above: Performed By: #### C BC, CMP, PHOS, MG, LIPID #### [address] Eosinophils (Bld) [#/Vol] 0.2 10*3/uL Normal 0.0-0.45 [facility] Comment on above: Performed By: #### C BC, CMP, PHOS, MG, LIPID #### [address] Eosinophils/100 WBC (Bld) 3.5 % Normal . [facility] Comment on above: Performed By: #### C BC, CMP, PHOS, MG, LIPID #### [address] Erythrocyte distribution width (RBC) [Ratio] 16.2 % High 11.9-15.3 [facility] Comment on above: Performed By: #### C BC, CMP, PHOS, MG, LIPID #### [address] Hematocrit (Bld) [Volume fraction] 38.6 % Normal 34.0-46.4 [facility] Comment on above: Performed By: #### C BC, CMP, PHOS, MG, LIPID #### [address] Hemoglobin (Bld) [Mass/Vol] 12.8 g/dL Normal 11.8-15.4 [facility] Comment on above: Performed By: #### C BC, CMP, PHOS, MG, LIPID #### [place] [address] [place] Lymphocytes (Bld) [#/Vol] 1.7 10*3/uL Normal 1.00-4.8 [facility] Comment on above: Performed By: #### C BC, CMP, PHOS, MG, LIPID #### [address] Lymphocytes/100 WBC (Bld) 33.1 % Normal . [facility] Comment on above: Performed By: #### C BC, CMP, PHOS, MG, LIPID #### [address] MCH (RBC) [Entitic mass] 30.2 pg Normal 24.7-34.3 [facility] Comment on above: Performed By: #### C BC, CMP, PHOS, MG, LIPID #### [address] MCV (RBC) [Entitic vol] 90.6 fL Normal 80-100 F [facility] Comment on above: Performed By: #### C BC, CMP, PHOS, MG, LIPID #### [address] Mean Corpuscular HGB Conc 33.3 g/dL Normal 32.0-35.0 [facility] Comment on above: Performed By: #### C BC, CMP, PHOS, MG, LIPID #### [address] Monocytes (Bld) [#/Vol] 0.7 10*3/uL Normal 0.0-0.8 [facility] Comment on above: Performed By: #### C BC, CMP, PHOS, MG, LIPID #### [address] Monocytes/100 WBC (Bld) 12.5 % Normal . [facility] Comment on above: Performed By: #### C BC, CMP, PHOS, MG, LIPID #### [address] Neutrophils (Bld) [#/Vol] 2.6 10*3/uL Normal 1.8-7.7 [facility] Comment on above: Performed By: #### C BC, CMP, PHOS, MG, LIPID #### [address] Neutrophils/100 WBC (Bld) 50.3 % Normal . [facility] Comment on above: Performed By: #### C BC, CMP, PHOS, MG, LIPID #### [facility] [address] [place] [address] Nucleated RBC/100 WBC (Bld) [Ratio] 0.1 % Normal 0-0.5 [facility] Comment on above: Performed By: #### C BC, CMP, PHOS, MG, LIPID #### [address] Platelet mean volume (Bld) [Entitic vol] 8.9 fL Normal 6.3-10.7 [facility] Comment on above: Performed By: #### C BC, CMP, PHOS, MG, LIPID #### [facility] [address] [place] [address] Platelets (Bld) [#/Vol] 186 10*3/uL Normal 150-450 [facility] Comment on above: Performed By: #### C BC, CMP, PHOS, MG, LIPID #### [address] RBC (Bld) [#/Vol] 4.25 10*6/uL Normal 3.60-5.00 [facility] Comment on above: Performed By: #### C BC, CMP, PHOS, MG, LIPID #### [address] WBC (Bld) [#/Vol] 5.3 10*3/uL Normal 4.5-11.0 [facility] Comment on above: Performed By: #### C BC, CMP, PHOS, MG, LIPID #### [address] Comprehensive Metabolic Pane clarice 01-05-2022 Albumin [Mass/Vol] 3.0 g/dL Low 3.2-5.5 [facility] Comment on above: Performed By: #### C BC, CMP, PHOS, MG, LIPID #### [address] Albumin/Globulin [Mass ratio] 1.2 {ratio} Normal [facility] Comment on above: Performed By: #### C BC, CMP, PHOS, MG, LIPID #### [facility] [address] ALP [Catalytic activity/Vol] 33 U/L Normal 32-92 [facility] Comment on above: Performed By: #### C BC, CMP, PHOS, MG, LIPID #### [facility] [address] ALT [Catalytic activity/Vol] 11 U/L Normal 10-60 [facility] Comment on above: Performed By: #### C BC, CMP, PHOS, MG, LIPID #### [facility] [address] Anion gap [Moles/Vol] 11.6 mmol/L Normal 6.0-15.0 [facility] Comment on above: Performed By: #### C BC, CMP, PHOS, MG, LIPID #### [facility] [address] AST [Catalytic activity/Vol] 13 U/L Normal 10-42 [facility] Comment on above: Performed By: #### C BC, CMP, PHOS, MG, LIPID #### [facility] [address] Bilirubin [Mass/Vol] 0.4 mg/dL Normal 0.3-1.2 [facility] Comment on above: Performed By: #### C BC, CMP, PHOS, MG, LIPID #### [facility] [address] [place] [address] [place] Calcium [Mass/Vol] 9.1 mg/dL Normal 8.2-10.2 [facility] Comment on above: Performed By: #### C BC, CMP, PHOS, MG, LIPID #### [facility] [address] [place] [address] [place] Chloride [Moles/Vol] 105 mmol/L Normal 95-114 [facility] Comment on above: Performed By: #### C BC, CMP, PHOS, MG, LIPID #### [facility] [address] CO2 [Moles/Vol] 25.2 mmol/L Normal 22.0-30.0 [facility] Comment on above: Performed By: #### C BC, CMP, PHOS, MG, LIPID #### [facility] [address] Creatinine [Mass/Vol] 1.14 mg/dL High 0.44-1.03 [facility] Comment on above: Performed By: #### C BC, CMP, PHOS, MG, LIPID #### [facility] [address] Creatinine Clr Calc Pharmacy 51.99 [facility] Comment on above: Result Comment: PERF ORMED BY: [place] [address] PATHOLOGIST MANAGER SOCIAL RESPONSIBILITY ANTONY ELIAS M.D. Performed By: #### C BC, CMP, PHOS, MG, LIPID #### [address] Estimated GFR ( [place] 59 [facility] Comment on above: Result Comment: GFR estimated reference range: According to KDOQI guidelines, <60 ml/min/1.73m2 is sufficient to diagnose a patient with chronic kidney disease. Performed By: #### C BC, CMP, PHOS, MG, LIPID #### [address] Estimated GFR (Non- Am 49 [facility] Comment on above: Performed By: #### C BC, CMP, PHOS, MG, LIPID #### [address] Globulin (S) [Mass/Vol] 2.5 g/dL Normal [facility] Comment on above: Performed By: #### C BC, CMP, PHOS, MG, LIPID #### [address] Glucose [Mass/Vol] 96 mg/dL Normal 70-100 [facility] Comment on above: Result Comment: [place] Glucose Reference Range is dependent on time and content of last meal. Glucose of more than 200 mg/dL in a nonstressed, ambulatory subject supports the diagnosis of Diabetes Mellitus. ADA recommended reference range Performed By: #### C BC, CMP, PHOS, MG, LIPID #### [facility] [address] Potassium [Moles/Vol] 3.8 mmol/L Normal 3.5-5.1 [facility] Comment on above: Performed By: #### C BC, CMP, PHOS, MG, LIPID #### [facility] [address] Protein [Mass/Vol] 5.5 g/dL Low 6.1-7.9 [facility] Comment on above: Performed By: #### C BC, CMP, PHOS, MG, LIPID #### [facility] [address] Sodium [Moles/Vol] 138 mmol/L Normal 136-146 [facility] Comment on above: Performed By: #### C BC, CMP, PHOS, MG, LIPID #### [facility] [address] Urea nitrogen [Mass/Vol] 11 mg/dL Normal 9-23 [facility] Comment on above: Performed By: #### C BC, CMP, PHOS, MG, LIPID #### [address] Creatinine and Glomerular fi ltration rate.predicted panel (S/P/Bld)Ordered By: Henry Burnett on 01-05-2022 Creatinine [Mass/Vol] 1.14 mg/dL 0.44-1.03 [facility] Eosinophils Auto (Bld) [#/Vo l]Ordered By: Henry Lemonr on 01-05-2022 Eosinophils (Bld) [#/Vol] 0.2 10*3/uL 0.0-0.45 [facility] Eosinophils/100 WBC Auto (Bl d)Ordered By: Henry Lemonr on 01-05-2022 Eosinophils/100 WBC (Bld) 3.5 % . [facility] Erythrocyte distribution wid th Auto (RBC) [Ratio]Ordered By: Henry Burnett on 01-05-2022 Erythrocyte distribution width (RBC) [Ratio] 16.2 % 11.9-15.3 [facility] Estimated glomerular filtrat ion rate (GFR) non- AmericanOrdered By: Henry Burnett on 01-05-2022 GFR/1.73 sq M.predicted among non-blacks MDRD (S/P/Bld) [Vol rate/Area] 49 mL/Min [facility] Globulin Calc (S) [Mass/Vol] Ordered By: Henry Burnett on 01-05-2022 Globulin (S) [Mass/Vol] 2.5 g/dL [facility] Hematocrit Auto (Bld) [Volum e fraction]Ordered By: Henry Burnett on 01-05-2022 Hematocrit (Bld) [Volume fraction] 38.6 % 34.0-46.4 [facility] Laboratory - Hematology and Cell countsOrdered By: Henry Burnett on 01-05-2022 Nucleated RBC/100 WBC (Bld) [Ratio] 0.1 % 0-0.5 [facility] Lymphocytes Auto (Bld) [#/Vo l]Ordered By: Henry Burnett on 01-05-2022 Lymphocytes (Bld) [#/Vol] 1.7 10*3/uL 1.00-4.8 [facility] Lymphocytes/100 WBC Auto (Bl d)Ordered By: Henry Burnett on 01-05-2022 Lymphocytes/100 WBC (Bld) 33.1 % . [facility] MCH Auto (RBC) [Entitic mass ]Ordered By: Henry Burnett on 01-05-2022 MCH (RBC) [Entitic mass] 30.2 pg 24.7-34.3 [facility] MCHC Auto (RBC) [Mass/Vol]Or dered By: Henry De Los Santosomar on 01-05-2022 MCHC (RBC) [Mass/Vol] 33.3 g/dL 32.0-35.0 [facility] MCV Auto (RBC) [Entitic vol] Ordered By: Henry Burnett on 01-05-2022 MCV (RBC) [Entitic vol] 90.6 fL 80-100 [facility] Monocytes Auto (Bld) [#/Vol] Ordered By: Obaydah Daromar on 01-05-2022 Monocytes (Bld) [#/Vol] 0.7 10*3/uL 0.0-0.8 [facility] Monocytes/100 WBC Auto (Bld) Ordered By: Obaydah Daromar on 01-05-2022 Monocytes/100 WBC (Bld) 12.5 % . [facility] Neutrophils Auto (Bld) [#/Vo l]Ordered By: Obaydah Daromar on 01-05-2022 Neutrophils (Bld) [#/Vol] 2.6 10*3/uL 1.8-7.7 [facility] Neutrophils/100 WBC Auto (Bl d)Ordered By: Obaydah Daromar on 01-05-2022 Neutrophils/100 WBC (Bld) 50.3 % . [facility] No Panel InformationOrdered By: Obsonjadanaga De Los Santosomar on 01-05-2022 Estimated GFR () 59 mL/Min [facility] Comment on above: GFR estimated refere nce range: According to KDOQI guidelines, <60 ml/min/1.73m2 is sufficient to diagnose a patient with chronic kidney disease. Pharmacy Creatinine Clearance (Chem 51.99 [facility] Platelet mean volume Auto (B ld) [Entitic vol]Ordered By: Obsonjadah Daromar on 01-05-2022 Platelet mean volume (Bld) [Entitic vol] 8.9 fL 6.3-10.7 [facility] Platelets Auto (Bld) [#/Vol] Ordered By: Obsonjadah Daromar on 01-05-2022 Platelets (Bld) [#/Vol] 186 10*3/uL 150-450 [facility] Protein [Mass/volume] in Ser um or PlasmaOrdered By: Obaydah Daromar on 01-05-2022 Protein [Mass/Vol] 5.5 g/dL 6.1-7.9 [facility] RBC Auto (Bld) [#/Vol]Ordere d By: Obaydah Daromar on 01-05-2022 RBC (Bld) [#/Vol] 4.25 10*6/uL 3.60-5.00 [facility] Serum or plasma alanine angeles otransferase measurement without P-5'-P (enzymatic activiOrdered By: Henry Burnett on 01-05-2022 ALT No additional P-5'-P [Catalytic activity/Vol] 11 U/L 1060 [facility] Serum or plasma albumin/glob ulin mass ratioOrdered By: Henry Burnett on 01-05-2022 Albumin/Globulin [Mass ratio] 1.2 {ratio} [facility] Serum or plasma alkaline flaquita sphatase measurement (enzymatic activity/volume)Ordered By: Henry Burnett on 01-05-2022 ALP [Catalytic activity/Vol] 33 U/L 32-92 [facility] Serum or plasma anion gap de terminationOrdered By: Henry Burnett on 01-05-2022 Anion gap [Moles/Vol] 11.6 mmol/L 6.0-15.0 [facility] Serum or plasma aspartate am inotransferase measurement (enzymatic activity/volume)Ordered By: Henry Burnett on 01-05-2022 AST [Catalytic activity/Vol] 13 U/L 10 [facility] Serum or plasma calcium sarah urement (mass/volume)Ordered By: Henry Burnett on 01-05-2022 Calcium [Mass/Vol] 9.1 mg/dL 8.2-10.2 [facility] Serum or plasma chloride deep surement (moles/volume)Ordered By: Henry Burnett on 01-05-2022 Chloride [Moles/Vol] 105 mmol/L 95-114 [facility] Serum or plasma glucose sarah urement (mass/volume)Ordered [...] on 01-05-2022 Potassium [Moles/Vol] 3.8 mmol/L 3.5-5.1 [facility] Serum or plasma sodium measu rement (moles/volume)Ordered By: Henry Burnett on 01-05-2022 Sodium [Moles/Vol] 138 mmol/L 136-146 [facility] Serum or plasma total biliru bin measurement (mass/volume)Ordered By: Henry Burnett on 01-05-2022 Bilirubin [Mass/Vol] 0.4 mg/dL 0.3-1.2 [facility] Serum or plasma total carbon dioxide measurement (moles/volume)Ordered By: Henry Burnett on 01-05-2022 CO2 [Moles/Vol] 25.2 mmol/L 22.0-30.0 [facility] Serum or plasma urea nitroge n measurement (mass/volume)Ordered By: Henry Burnett on 01-05-2022 Urea nitrogen [Mass/Vol] 11 mg/dL 9-23 [facility] Urine culture routineOrdered By: Justin Francisco on 01-05-2022 Bacteria identified Cx Nom (U) Escherichia coli [facility] Cholesterol [Mass/volume] in Serum or PlasmaOrdered By: Henry Burnett on 01-04-2022 Cholesterol [Mass/Vol] 145 mg/dL 140-200 [facility] Comment on above: Chol less than 200 m g/dl low riskChol 201-239 mg/dl borderline riskChol 240 mg/dl and greater high risk Cholesterol in LDL Calc [Mas s/Vol]Ordered By: Henry Burnett on 01-04-2022 Cholesterol in LDL [Mass/Vol] 78 mg/dL 0-100 [facility] Comment on above: LDL ATP III CLASSIFI CATIONLDL less than 100 mg/dL OptimalLDL 100-129 mg/dL Near or above optimalLDL 130-159 mg/dL Borderline highLDL 160-189 mg/dL HighLDL greater than 189 mg/dL Very high Cholesterol in VLDL Calc [Ma ss/Vol]Ordered By: Henry Burnett on 01-04-2022 Cholesterol in VLDL [Mass/Vol] 12 mg/dL [facility] Complete Blood Count Auto Di ffon 01-04-2022 Basophils (Bld) [#/Vol] 0.0 10*3/uL Normal 0.0-0.2 [facility] Comment on above: Result Comment: PERF ORMED BY: [place] [address] PATHOLOGIST MANAGER SOCIAL RESPONSIBILITY ANTONY ELIAS M.D. Performed By: #### C BC, CMP, PHOS, MG, LIPID #### [address] Basophils/100 WBC (Bld) 0.8 % Normal . F [facility] Comment on above: Performed By: #### C BC, CMP, PHOS, MG, LIPID #### [address] Eosinophils (Bld) [#/Vol] 0.2 10*3/uL Normal 0.0-0.45 [facility] Comment on above: Performed By: #### C BC, CMP, PHOS, MG, LIPID #### [address] Eosinophils/100 WBC (Bld) 4.2 % Normal . [facility] Comment on above: Performed By: #### C BC, CMP, PHOS, MG, LIPID #### [address] Erythrocyte distribution width (RBC) [Ratio] 15.8 % High 11.9-15.3 [facility] Comment on above: Performed By: #### C BC, CMP, PHOS, MG, LIPID #### [address] Hematocrit (Bld) [Volume fraction] 37.5 % Normal 34.0-46.4 [facility] Comment on above: Performed By: #### C BC, CMP, PHOS, MG, LIPID #### [address] Hemoglobin (Bld) [Mass/Vol] 12.3 g/dL Normal 11.8-15.4 [facility] Comment on above: Performed By: #### C BC, CMP, PHOS, MG, LIPID #### [address] Lymphocytes (Bld) [#/Vol] 1.6 10*3/uL Normal 1.00-4.8 [facility] Comment on above: Performed By: #### C BC, CMP, PHOS, MG, LIPID #### [address] Lymphocytes/100 WBC (Bld) 31.2 % Normal . [facility] Comment on above: Performed By: #### C BC, CMP, PHOS, MG, LIPID #### [address] MCH (RBC) [Entitic mass] 29.7 pg Normal 24.7-34.3 [facility] Comment on above: Performed By: #### C BC, CMP, PHOS, MG, LIPID #### [address] MCV (RBC) [Entitic vol] 90.5 fL Normal 80-100 [facility] Comment on above: Performed By: #### C BC, CMP, PHOS, MG, LIPID #### [address] Mean Corpuscular HGB Conc 32.8 g/dL Normal 32.0-35.0 [facility] Comment on above: Performed By: #### C BC, CMP, PHOS, MG, LIPID #### [address] Monocytes (Bld) [#/Vol] 0.7 10*3/uL Normal 0.0-0.8 [facility] Comment on above: Performed By: #### C BC, CMP, PHOS, MG, LIPID #### [address] Monocytes/100 WBC (Bld) 13.1 % Normal . [facility] Comment on above: Performed By: #### C BC, CMP, PHOS, MG, LIPID #### [facility] [address] [place] [address] [place] Neutrophils (Bld) [#/Vol] 2.6 10*3/uL Normal 1.8-7.7 [facility] Comment on above: Performed By: #### C BC, CMP, PHOS, MG, LIPID #### [facility] [address] [place] [address] [place] Neutrophils/100 WBC (Bld) 50.7 % Normal . [facility] Comment on above: Performed By: #### C BC, CMP, PHOS, MG, LIPID #### [place] [address] [place] Nucleated RBC/100 WBC (Bld) [Ratio] 0.1 % Normal 0-0.5 [facility] Comment on above: Performed By: #### C BC, CMP, PHOS, MG, LIPID #### [address] Platelet mean volume (Bld) [Entitic vol] 8.5 fL Normal 6.3-10.7 [facility] Comment on above: Performed By: #### C BC, CMP, PHOS, MG, LIPID #### [place] [address] [place] Platelets (Bld) [#/Vol] 190 10*3/uL Normal 150-450 [facility] Comment on above: Performed By: #### C BC, CMP, PHOS, MG, LIPID #### [place] [address] [place] RBC (Bld) [#/Vol] 4.15 10*6/uL Normal 3.60-5.00 [facility] Comment on above: Performed By: #### C BC, CMP, PHOS, MG, LIPID #### [place] [address] [place] WBC (Bld) [#/Vol] 5.1 10*3/uL Normal 4.5-11.0 [facility] Comment on above: Performed By: #### C BC, CMP, PHOS, MG, LIPID #### [address] Comprehensive Metabolic Pane clarice 01-04-2022 Albumin [Mass/Vol] 3.0 g/dL Low 3.2-5.5 [facility] Comment on above: Performed By: #### C BC, CMP, PHOS, MG, LIPID #### [address] Albumin/Globulin [Mass ratio] 1.2 {ratio} Normal [facility] Comment on above: Performed By: #### C BC, CMP, PHOS, MG, LIPID #### [address] ALP [Catalytic activity/Vol] 32 U/L Normal 32-92 [facility] Comment on above: Performed By: #### C BC, CMP, PHOS, MG, LIPID #### [address] ALT [Catalytic activity/Vol] 12 U/L Normal 10-60 [facility] Comment on above: Performed By: #### C BC, CMP, PHOS, MG, LIPID #### [address] Anion gap [Moles/Vol] 10.6 mmol/L Normal 6.0-15.0 [facility] Comment on above: Performed By: #### C BC, CMP, PHOS, MG, LIPID #### [address] AST [Catalytic activity/Vol] 15 U/L Normal 10-42 [facility] Comment on above: Performed By: #### C BC, CMP, PHOS, MG, LIPID #### [address] Bilirubin [Mass/Vol] 0.3 mg/dL Normal 0.3-1.2 [facility] Comment on above: Performed By: #### C BC, CMP, PHOS, MG, LIPID #### [facility] [address] Calcium [Mass/Vol] 9.0 mg/dL Normal 8.2-10.2 [facility] Comment on above: Performed By: #### C BC, CMP, PHOS, MG, LIPID #### [facility] [address] Chloride [Moles/Vol] 103 mmol/L Normal 95-114 [facility] Comment on above: Performed By: #### C BC, CMP, PHOS, MG, LIPID #### [address] CO2 [Moles/Vol] 27.6 mmol/L Normal 22.0-30.0 [facility] Comment on above: Performed By: #### C BC, CMP, PHOS, MG, LIPID #### [address] Creatinine [Mass/Vol] 1.21 mg/dL High 0.44-1.03 [facility] Comment on above: Performed By: #### C BC, CMP, PHOS, MG, LIPID #### [address] Creatinine Clr Calc Pharmacy 49.01 [facility] Comment on above: Performed By: #### C BC, CMP, PHOS, MG, LIPID #### [address] Estimated GFR ( [place] 55 [facility] Comment on above: Result Comment: GFR estimated reference range: According to KDOQI guidelines, <60 ml/min/1.73m2 is sufficient to diagnose a patient with chronic kidney disease. Performed By: #### C BC, CMP, PHOS, MG, LIPID #### [address] Estimated GFR (Non- Am 46 [facility] Comment on above: Performed By: #### C BC, CMP, PHOS, MG, LIPID #### [address] Globulin (S) [Mass/Vol] 2.6 g/dL Normal F [facility] Comment on above: Performed By: #### C BC, CMP, PHOS, MG, LIPID #### [facility] [address] Glucose [Mass/Vol] 151 mg/dL High 70-100 [facility] Comment on above: Result Comment: [place] Glucose Reference Range is dependent on time and content of last meal. Glucose of more than 200 mg/dL in a nonstressed, ambulatory subject supports the diagnosis of Diabetes Mellitus. ADA recommended reference range Performed By: #### C BC, CMP, PHOS, MG, LIPID #### [facility] [address] Potassium [Moles/Vol] 3.2 mmol/L Low 3.5-5.1 [facility] Comment on above: Performed By: #### C BC, CMP, PHOS, MG, LIPID #### [facility] [address] Protein [Mass/Vol] 5.6 g/dL Low 6.1-7.9 [facility] Comment on above: Performed By: #### C BC, CMP, PHOS, MG, LIPID #### [facility] [address] Sodium [Moles/Vol] 138 mmol/L Normal 136-146 [facility] Comment on above: Performed By: #### C BC, CMP, PHOS, MG, LIPID #### [facility] [address] Urea nitrogen [Mass/Vol] 11 mg/dL Normal 9-23 [facility] Comment on above: Performed By: #### C BC, CMP, PHOS, MG, LIPID #### [facility] [address] Laboratory - Chemistry and C hemistry - challengeOrdered By: Henry Burnett on 01-04-2022 Magnesium [Mass/Vol] 1.6 mg/dL 1.6-2.6 [facility] Lipid Panelon 01-04-2022 Cholesterol [Mass/Vol] 145 mg/dL Normal 140-200 [facility] Comment on above: Result Comment: Chol less than 200 mg/dl low risk Chol 201-239 mg/dl borderline risk Chol 240 mg/dl and greater high risk Performed By: #### C BC, CMP, PHOS, MG, LIPID #### [facility] [address] Cholesterol in HDL [Mass/Vol] 55 mg/dL Normal 35-85 [facility] Comment on above: Result Comment: HDL CHOL ATP-III CLASSIFICATION Cardiovascular Risk HDL > or equal to 60 mg/dL LOW HDL < 40 mg/dL HIGH Performed By: #### C BC, CMP, PHOS, MG, LIPID #### [facility] [address] Cholesterol.total/Choles terol in HDL [Mass ratio] 2.6 {ratio} Normal <5.0 [facility] Comment on above: Result Comment: PERF ORMED BY: [place] [address] PATHOLOGIST MANAGER SOCIAL RESPONSIBILITY ANTONY ELIAS M.D. Performed By: #### C BC, CMP, PHOS, MG, LIPID #### [address] LDL Cholesterol,Calculated 78 mg/dL Normal 0-100 [facility] Comment on above: Result Comment: LDL ATP III CLASSIFICATION LDL less than 100 mg/dL Optimal LDL 100-129 mg/dL Near or above optimal LDL 130-159 mg/dL Borderline high LDL 160-189 mg/dL High LDL greater than 189 mg/dL Very high Performed By: #### C BC, CMP, PHOS, MG, LIPID #### [facility] [address] Triglyceride w/Reflex 60 mg/dL Normal 35-149 [facility] Comment on above: Result Comment: TRIG ATP III CLASSIFICATION TRIG less than 150 mg/dL Normal TRIG 150-199 mg/dL Borderline high TRIG 200-500 mg/dL High TRIG greater than 500 mg/dL Very high Standard traceable to the Center for Disease Conrtrol and Prevention (CDC) test method. Performed By: #### C BC, CMP, PHOS, MG, LIPID #### [facility] [address] VLDL CHOLESTEROL 12 mg/dL Normal [facility] Comment on above: Performed By: #### C BC, CMP, PHOS, MG, LIPID #### [facility] [address] Magnesiumon 01-04-2022 Magnesium [Mass/Vol] 1.6 mg/dL Normal 1.6-2.6 [facility] Comment on above: Performed By: #### C BC, CMP, PHOS, MG, LIPID #### [facility] [address] No Panel InformationOrdered By: Graham Helm on 01-04-2022 Valproic Acid (Depakene) Level 28.2 ug/mL 50.0-100.0 [facility] Comment on above: Last dose: - Phosphate [Mass/volume] in S yeyo or PlasmaOrdered By: Henry Burnett on 01-04-2022 Phosphate [Mass/Vol] 3.5 mg/dL 2.5-4.6 [facility] Phosphoruson 01-04-2022 Phosphate [Mass/Vol] 3.5 mg/dL Normal 2.5-4.6 [facility] Comment on above: Performed By: #### C BC, CMP, PHOS, MG, LIPID #### [facility] [address] Serum or plasma high density lipoprotein (HDL) cholesterol measurementOrdered By: Henry Burnett on 01-04-2022 Cholesterol in HDL [Mass/Vol] 55 mg/dL 35-85 [facility] Comment on above: HDL CHOL ATP-III CLA SSIFICATION Cardiovascular RiskHDL > or equal to 60 mg/dL LOWHDL < 40 mg/dL HIGH Serum or plasma total choles terol/high density lipoprotein (HDL) cholesterol mass ratOrdered By: Henry Burnett on 01-04-2022 Cholesterol.total/Choles terol in HDL [Mass ratio] 2.6 {ratio} <5.0 [facility] Triglyceride [Mass/volume] i n Serum or PlasmaOrdered By: Henry Burnett on 01-04-2022 Triglyceride [Mass/Vol] 60 mg/dL 35-149 [facility] Comment on above: TRIG ATP III CLASSIF ICATIONTRIG less than 150 mg/dL NormalTRIG 150-199 mg/dL Borderline highTRIG 200-500 mg/dL High TRIG greater than 500 mg/dL Very highStandard traceable to the Center for Disease Conrtrol and Prevention (CDC) test method. Valproic Acid (in house)on 1 Valproic Acid (in house) 28.2 ug/mL Low 50.0-100.0 [facility] Comment on above: Result Comment: Last dose: - PERFORMED BY: [place] [address] PATHOLOGIST MANAGER SOCIAL RESPONSIBILITY ANTONY ELIAS M.D. Performed By: #### C BC, CMP, PHOS, MG, LIPID #### [facility] [address] [place] [address] [place] Acetaminophenon 01-03-2022 Acetaminophen [Mass/Vol] 25.3 ug/mL Normal 10.0-30.0 [facility] Comment on above: Performed By: #### C MP, T4F, TSH3, CBC, ETOH, JUAN, ACET, VALP #### [facility] [address] [place] [address] Albumin [Mass/volume] in Ser um or PlasmaOrdered By: Justin Francisco on 01-03-2022 Albumin [Mass/Vol] 3.6 g/dL 3.2-5.5 [facility] Amphetamine Screen Ql (U)Ord ered By: Justin Francisco on 01-03-2022 Amphetamines Ql (U) Negative Negative [facility] Automated erythrocytes count in urine sediment (number/area)Ordered By: Justin Francisco on 01-03-2022 RBC Auto (Urine sed) [#/Area] None seen [HPF] 0-4 [facility] Automated leukocytes count i n urine sediment (number/area)Ordered By: Justin Francisco on 01-03-2022 WBC Auto (Urine sed) [#/Area] 5-9 [HPF] 0-4 [facility] Barbiturates [Presence] in U rineOrdered By: Justin Francisco on 01-03-2022 Barbiturates Ql (U) Negative Negative [facility] Basophils Auto (Bld) [#/Vol] Ordered By: Justin Francisco on 01-03-2022 Basophils (Bld) [#/Vol] 0.0 10*3/uL 0.0-0.2 [facility] Basophils/100 WBC Auto (Bld) Ordered By: Justin Francisco on 01-03-2022 Basophils/100 WBC (Bld) 0.6 % . F [facility] Benzodiazepines [Presence] i n UrineOrdered By: Justin Francisco on 01-03-2022 Benzodiazepines Ql (U) Negative Negative [facility] Bilirubin Test strip Ql (U)O rdered By: Justin Francisco on 01-03-2022 Bilirubin Ql (U) Negative Negative [facility] Blood hemoglobin measurement (mass/volume)Ordered By: Justin Francicso on 01-03-2022 Hemoglobin (Bld) [Mass/Vol] 13.4 g/dL 11.8-15.4 [facility] Blood leukocytes automated c ount (number/volume)Ordered By: [...] developed and its performance characteristic determined by [employer] and validated at [facility]. This test has not been FDA cleared [...] for SARS Antigen by MARLINE PERFORMED BY: [place] [address] PATHOLOGIST MANAGER SOCIAL RESPONSIBILITY ANTONY ELIAS M.D. Normal [facility] Comment on above: Performed By: #### C BC, CMP, PHOS, MG, LIPID #### [address] COVID-19 [facility] 01-03-2022 SARS-CoV-2 (COVID-19) RNA ARMINDA+probe Ql (Unsp spec) Negative Normal Negative [facility] Comment on above: Order Comment: Healt hcare Worker?: N Result Comment: Testing for SARS-CoV-2 by RT-PCR This test was developed and its performance characteristics determined by [facility] [employer]) and validated at the [facility]. This test has not been FDA cleared [...] is terminated or revoked sooner. PERFORMED BY: [facility] [address] [place] [address] PATHOLOGIST MANAGER SOCIAL RESPONSIBILITY ANTONY ELIAS M.D. Performed By: #### C BC, CMP, PHOS, MG, LIPID #### [facility] [address] COVID-19 Positive/NegativeOr dered By: Justin Francisco on 01-03-2022 SARS-CoV-2 (COVID-19) N gene ARMINDA+probe Ql (Resp) Negative Negative [facility] Comment on above: Testing for SARS-CoV -2 by RT-PCRThis test was developed and its performance characteristics determined by [facility] [employer]) and validated at the [facility]. This test has not been FDA cleared [...] (COVID-19) Ag IA.rapid Ql (Resp) Negative Negative [facility] Comment on above: This is a duplicate [facility] SARS Antigen (MARLINE) result to be used for statistical tracking purpose only. CT head/brain wo conon 10-04 -2022 CT head/brain wo con [facility] [place] [address] [place] [address] CT Scan Report Signed Patient: Kathy Porter MR#: [id number] : 1960 Acct:[id number] Age/Sex: 61 / F ADM Date: 01/03/22 Loc: ER Room: Type: [facility] ER Attending Dr: Copies to: Justin Francisco [...] Rajinder Cardona M.D.01/03/2022 3:21 PM Dictation Location: [place] [address] Transcribed By: [facility] 01/03/22 152 Dictated By: Rajinder Cardona II, MD 01/03/22 1518 Signed By: 01/03/22 152 [facility] Cannabinoids [Presence] in U rine by Screen methodOrdered By: Justin Francisco on 01-03-2022 Cannabinoids Screen Ql (U) Negative Negative [facility] Comment on above: These are unconfirme d results and should not be used for legal purposes. Drug Cut-Off Concentration: AMPH 1000 ng/mL TERRY 200 ng/mL HONG 200 ng/mL COCM 300 ng/mL OP 300 ng/mL PCP 25 ng/mL THC 20 ng/mL Color Auto (U)Ordered By: Aman klarissajosef Francisco on 01-03-2022 Color (U) Yellow Yellow [facility] Complete Blood Count Auto Di ffon 01-03-2022 Basophils (Bld) [#/Vol] 0.0 10*3/uL Normal 0.0-0.2 [facility] Comment on above: Result Comment: PERF ORMED BY: [place] [address] PATHOLOGIST MANAGER SOCIAL RESPONSIBILITY ANTONY ELIAS M.D. Performed By: #### C MP, T4F, TSH3, CBC, ETOH, JUAN, ACET, VALP #### [address] Basophils/100 WBC (Bld) 0.6 % Normal . F [facility] Comment on above: Performed By: #### C MP, T4F, TSH3, CBC, ETOH, JUAN, ACET, VALP #### [address] Eosinophils (Bld) [#/Vol] 0.1 10*3/uL Normal 0.0-0.45 [facility] Comment on above: Performed By: #### C MP, T4F, TSH3, CBC, ETOH, JUAN, ACET, VALP #### [address] Eosinophils/100 WBC (Bld) 1.4 % Normal . [facility] Comment on above: Performed By: #### C MP, T4F, TSH3, CBC, ETOH, JUAN, ACET, VALP #### [address] Erythrocyte distribution width (RBC) [Ratio] 15.7 % High 11.9-15.3 [facility] Comment on above: Performed By: #### C MP, T4F, TSH3, CBC, ETOH, JUAN, ACET, VALP #### [address] Hematocrit (Bld) [Volume fraction] 41.0 % Normal 34.0-46.4 [facility] Comment on above: Performed By: #### C MP, T4F, TSH3, CBC, ETOH, JUAN, ACET, VALP #### [address] Hemoglobin (Bld) [Mass/Vol] 13.4 g/dL Normal 11.8-15.4 [facility] Comment on above: Performed By: #### C MP, T4F, TSH3, CBC, ETOH, JUAN, ACET, VALP #### [address] Lymphocytes (Bld) [#/Vol] 1.4 10*3/uL Normal 1.00-4.8 [facility] Comment on above: Performed By: #### C MP, T4F, TSH3, CBC, ETOH, JUAN, ACET, VALP #### [address] Lymphocytes/100 WBC (Bld) 22.3 % Normal . [facility] Comment on above: Performed By: #### C MP, T4F, TSH3, CBC, ETOH, JUAN, ACET, VALP #### [address] MCH (RBC) [Entitic mass] 29.7 pg Normal 24.7-34.3 [facility] Comment on above: Performed By: #### C MP, T4F, TSH3, CBC, ETOH, JUAN, ACET, VALP #### [address] MCV (RBC) [Entitic vol] 91.0 fL Normal 80-100 [facility] Comment on above: Performed By: #### C MP, T4F, TSH3, CBC, ETOH, JUAN, ACET, VALP #### [address] [place] [address] [place] Mean Corpuscular HGB Conc 32.6 g/dL Normal 32.0-35.0 [facility] Comment on above: Performed By: #### C MP, T4F, TSH3, CBC, ETOH, JUAN, ACET, VALP #### [address] Monocytes (Bld) [#/Vol] 0.6 10*3/uL Normal 0.0-0.8 [facility] Comment on above: Performed By: #### C MP, T4F, TSH3, CBC, ETOH, JUAN, ACET, VALP #### [address] Monocytes/100 WBC (Bld) 8.9 % Normal . F [facility] Comment on above: Performed By: #### C MP, T4F, TSH3, CBC, ETOH, JUAN, ACET, VALP #### [address] Neutrophils (Bld) [#/Vol] 4.3 10*3/uL Normal 1.8-7.7 [facility] Comment on above: Performed By: #### C MP, T4F, TSH3, CBC, ETOH, JUAN, ACET, VALP #### [address] Neutrophils/100 WBC (Bld) 66.8 % Normal . [facility] Comment on above: Performed By: #### C MP, T4F, TSH3, CBC, ETOH, JUAN, ACET, VALP #### [place] [address] [place] Nucleated RBC/100 WBC (Bld) [Ratio] 0.1 % Normal 0-0.5 [facility] Comment on above: Performed By: #### C MP, T4F, TSH3, CBC, ETOH, JUAN, ACET, VALP #### [address] Platelet mean volume (Bld) [Entitic vol] 8.8 fL Normal 6.3-10.7 [facility] Comment on above: Performed By: #### C MP, T4F, TSH3, CBC, ETOH, JUAN, ACET, VALP #### [address] Platelets (Bld) [#/Vol] 236 10*3/uL Normal 150-450 [facility] Comment on above: Performed By: #### C MP, T4F, TSH3, CBC, ETOH, JUAN, ACET, VALP #### [address] RBC (Bld) [#/Vol] 4.50 10*6/uL Normal 3.60-5.00 [facility] Comment on above: Performed By: #### C MP, T4F, TSH3, CBC, ETOH, JUAN, ACET, VALP #### [address] WBC (Bld) [#/Vol] 6.4 10*3/uL Normal 4.5-11.0 [facility] Comment on above: Performed By: #### C MP, T4F, TSH3, CBC, ETOH, JUAN, ACET, VALP #### [address] Comprehensive Metabolic Pane clarice 01-03-2022 Albumin [Mass/Vol] 3.6 g/dL Normal 3.2-5.5 [facility] Comment on above: Performed By: #### C BC, CMP, PHOS, MG, LIPID #### [address] Albumin/Globulin [Mass ratio] 1.2 {ratio} Normal [facility] Comment on above: Performed By: #### C BC, CMP, PHOS, MG, LIPID #### [address] ALP [Catalytic activity/Vol] 40 U/L Normal 32-92 [facility] Comment on above: Performed By: #### C BC, CMP, PHOS, MG, LIPID #### [address] ALT [Catalytic activity/Vol] 14 U/L Normal 10-60 [facility] Comment on above: Performed By: #### C BC, CMP, PHOS, MG, LIPID #### [facility] [address] Anion gap [Moles/Vol] 16.7 mmol/L High 6.0-15.0 [facility] Comment on above: Performed By: #### C BC, CMP, PHOS, MG, LIPID #### [address] AST [Catalytic activity/Vol] 18 U/L Normal 10-42 [facility] Comment on above: Performed By: #### C BC, CMP, PHOS, MG, LIPID #### [address] Bilirubin [Mass/Vol] 0.6 mg/dL Normal 0.3-1.2 [facility] Comment on above: Performed By: #### C BC, CMP, PHOS, MG, LIPID #### [address] Calcium [Mass/Vol] 9.5 mg/dL Normal 8.2-10.2 [facility] Comment on above: Performed By: #### C BC, CMP, PHOS, MG, LIPID #### [address] Chloride [Moles/Vol] 99 mmol/L Normal 95-114 [facility] Comment on above: Performed By: #### C BC, CMP, PHOS, MG, LIPID #### [address] CO2 [Moles/Vol] 23.6 mmol/L Normal 22.0-30.0 [facility] Comment on above: Performed By: #### C BC, CMP, PHOS, MG, LIPID #### [facility] [address] Creatinine [Mass/Vol] 1.38 mg/dL High 0.44-1.03 [facility] Comment on above: Performed By: #### C BC, CMP, PHOS, MG, LIPID #### [facility] [address] Creatinine Clr Calc Pharmacy 43.00 [facility] Comment on above: Performed By: #### C BC, CMP, PHOS, MG, LIPID #### [facility] [address] Estimated GFR ( [place] 47 [facility] Comment on above: Result Comment: GFR estimated reference range: According to KDOQI guidelines, <60 ml/min/1.73m2 is sufficient to diagnose a patient with chronic kidney disease. Performed By: #### C BC, CMP, PHOS, MG, LIPID #### [facility] [address] Estimated GFR (Non- Am 39 [facility] Comment on above: Performed By: #### C BC, CMP, PHOS, MG, LIPID #### [facility] [address] Globulin (S) [Mass/Vol] 3.1 g/dL Normal [facility] Comment on above: Performed By: #### C BC, CMP, PHOS, MG, LIPID #### [facility] [address] Glucose [Mass/Vol] 137 mg/dL High 70-100 [facility] Comment on above: Result Comment: [place] Glucose Reference Range is dependent on time and content of last meal. Glucose of more than 200 mg/dL in a nonstressed, ambulatory subject supports the diagnosis of Diabetes Mellitus. ADA recommended reference range Performed By: #### C BC, CMP, PHOS, MG, LIPID #### [facility] [address] Potassium [Moles/Vol] 4.3 mmol/L Normal 3.5-5.1 [facility] Comment on above: Performed By: #### C BC, CMP, PHOS, MG, LIPID #### [facility] [address] Protein [Mass/Vol] 6.7 g/dL Normal 6.1-7.9 [facility] Comment on above: Performed By: #### C BC, CMP, PHOS, MG, LIPID #### [facility] [address] Sodium [Moles/Vol] 135 mmol/L Low 136-146 [facility] Comment on above: Performed By: #### C BC, CMP, PHOS, MG, LIPID #### [facility] [address] Urea nitrogen [Mass/Vol] 14 mg/dL Normal 9-23 [facility] Comment on above: Performed By: #### C BC, CMP, PHOS, MG, LIPID #### [facility] [address] Creatinine and Glomerular fi ltration rate.predicted panel (S/P/Bld)Ordered By: Justin Francisco on 01-03-2022 Creatinine [Mass/Vol] 1.38 mg/dL 0.44-1.03 [facility] Dipstick and Microscopicon 1 Appearance (U) Clear Normal Clear [facility] Comment on above: Order Comment: Name Collection Type:: Clean-Voided Midstream Performed By: #### C BC, CMP, PHOS, MG, LIPID #### [facility] [address] Bacteria,Urine 2+ High None Seen [facility] Comment on above: Order Comment: Name Collection Type:: Clean-Voided Midstream Performed By: #### C BC, CMP, PHOS, MG, LIPID #### [facility] [address] [place] [address] [place] Bilirubin,Urine Negative Normal Negative [facility] Comment on above: Order Comment: Name Collection Type:: Clean-Voided Midstream Performed By: #### C BC, CMP, PHOS, MG, LIPID #### [facility] [address] Color (U) Yellow Normal Yellow [facility] Comment on above: Order Comment: Name Collection Type:: Clean-Voided Midstream Performed By: #### C BC, CMP, PHOS, MG, LIPID #### [facility] [address] [place] [address] Glucose Ql (U) Normal Normal Normal [facility] Comment on above: Order Comment: Name Collection Type:: Clean-Voided Midstream Performed By: #### C BC, CMP, PHOS, MG, LIPID #### [facility] [address] [place] [address] Hyaline Casts,Urine 0-8 Normal 0-8 [facility] Comment on above: Order Comment: Name Collection Type:: Clean-Voided Midstream Performed By: #### C BC, CMP, PHOS, MG, LIPID #### [address] Ketones Ql (U) Negative Normal Negative [facility] Comment on above: Order Comment: Name Collection Type:: Clean-Voided Midstream Performed By: #### C BC, CMP, PHOS, MG, LIPID #### [address] Leukocyte esterase Test strip Ql (U) 2+ High Negative [facility] Comment on above: Order Comment: Name Collection Type:: Clean-Voided Midstream Performed By: #### C BC, CMP, PHOS, MG, LIPID #### [address] Nitrite,Urine Negative Normal Negative [facility] Comment on above: Order Comment: Name Collection Type:: Clean-Voided Midstream Performed By: #### C BC, CMP, PHOS, MG, LIPID #### [address] Occult Blood,Urine Negative Normal Negative [facility] Comment on above: Order Comment: Name Collection Type:: Clean-Voided Midstream Result Comment: PERF ORMED BY: [place] [address] PATHOLOGIST MANAGER SOCIAL RESPONSIBILITY ANTONY ELIAS M.D. Performed By: #### C BC, CMP, PHOS, MG, LIPID #### [address] pH (U) 5.5 [pH] Normal 5.0-9.0 [facility] Comment on above: Order Comment: Name Collection Type:: Clean-Voided Midstream Performed By: #### C BC, CMP, PHOS, MG, LIPID #### [address] Protein,Urine Negative Normal Negative [facility] Comment on above: Order Comment: Name Collection Type:: Clean-Voided Midstream Performed By: #### C BC, CMP, PHOS, MG, LIPID #### [facility] [address] [place] [address] RBC,Urine None Seen Normal 0-4 [facility] Comment on above: Order Comment: Name Collection Type:: Clean-Voided Midstream Performed By: #### C BC, CMP, PHOS, MG, LIPID #### [address] Specificy [place],Urine 1.012 Normal 1.001-1.030 [facility] Comment on above: Order Comment: Name Collection Type:: Clean-Voided Midstream Performed By: #### C BC, CMP, PHOS, MG, LIPID #### [address] Squamous Epithelial Cell,Urine 3-4 High 0-2 [facility] Comment on above: Order Comment: Name Collection Type:: Clean-Voided Midstream Performed By: #### C BC, CMP, PHOS, MG, LIPID #### [address] Urobilinogen,Urine Normal Normal Normal [facility] Comment on above: Order Comment: Name Collection Type:: Clean-Voided Midstream Performed By: #### C BC, CMP, PHOS, MG, LIPID #### [facility] [address] [place] [address] WBC,Urine 5-9 High 0-4 [facility] Comment on above: Order Comment: Name Collection Type:: Clean-Voided Midstream Performed By: #### C BC, CMP, PHOS, MG, LIPID #### [address] Yeast,Urine None Seen Normal None Seen [facility] Comment on above: Order Comment: Name Collection Type:: Clean-Voided Midstream Result Comment: PERF ORMED BY: [place] [address] PATHOLOGIST MANAGER SOCIAL RESPONSIBILITY ANTONY ELIAS M.D. Performed By: #### C BC, CMP, PHOS, MG, LIPID #### [address] Drug Screen,Urineon 01-04-20 Amphetamine Screen,Urine Negative Normal Negative [facility] Comment on above: Performed By: #### C BC, CMP, PHOS, MG, LIPID #### [address] Barbiturate Screen,Urine Negative Normal Negative [facility] Comment on above: Performed By: #### C BC, CMP, PHOS, MG, LIPID #### [address] Benzodiazepines Screen,Urine Negative Normal Negative [facility] Comment on above: Performed By: #### C BC, CMP, PHOS, MG, LIPID #### [address] Cannabinoid Screen,Urine Negative Normal Negative [facility] Comment on above: Result Comment: Thes e are unconfirmed results and should not be used for legal purposes. Drug Cut-Off Concentration: AMPH 1000 ng/mL TERRY 200 ng/mL HONG 200 ng/mL COCM 300 ng/mL OP 300 ng/mL PCP 25 ng/mL THC 20 ng/mL PERFORMED BY: [place] [address] PATHOLOGIST MANAGER SOCIAL RESPONSIBILITY ANTONY ELIAS M.D. Performed By: #### C BC, CMP, PHOS, MG, LIPID #### [facility] [address] [place] [address] [place] Cocaine Screen,Urine Negative Normal Negative [facility] Comment on above: Performed By: #### C BC, CMP, PHOS, MG, LIPID #### [facility] [address] Opiate Screen,Urine Negative Normal Negative [facility] Comment on above: Performed By: #### C BC, CMP, PHOS, MG, LIPID #### [facility] [address] [place] [id number] [facility] Phencyclidine Screen,Urine Negative Normal Negative [facility] Comment on above: Performed By: #### C BC, CMP, PHOS, MG, LIPID #### [facility] [address] [place] [id number] [facility] ECG 12 lead ECGon 01-03-2022 ECG 12 lead ECG [facility] [place] [address] [place] [address] Electrocardiograph Report Signed Patient: Kathy Porter MR#: [id number] : 1960 Acct:[id number] Age/Sex: 61 / F ADM Date: 01/03/22 Loc: Room: [address] [place] [address] Type: DIS INOo Attending Dr: Henry Burnett [...] ECGs available Confirmed by Justin Francisco DO ([id number]) on 01/03/2022 7:17:59 PM Referred By: Electronically Signed By:Justin Francisco DO Transcribed By: MUS Signed By Justin Francisco DO 01/03 Normal [facility] Eosinophils Auto (Bld) [#/Vo l]Ordered By: Justin Francisco on 01-03-2022 Eosinophils (Bld) [#/Vol] 0.1 10*3/uL 0.0-0.45 [facility] Eosinophils/100 WBC Auto (Bl d)Ordered By: Justin Francisco on 01-03-2022 Eosinophils/100 WBC (Bld) 1.4 % . [facility] Erythrocyte distribution wid th Auto (RBC) [Ratio]Ordered By: Justin Francisco on 01-03-2022 Erythrocyte distribution width (RBC) [Ratio] 15.7 % 11.9-15.3 [facility] Estimated glomerular filtrat ion rate (GFR) non- AmericanOrdered By: Justin Francisco on 01-03-2022 GFR/1.73 sq M.predicted among non-blacks MDRD (S/P/Bld) [Vol rate/Area] 39 mL/Min [facility] Ethyl Alcohol Profileon Ethanol [Mass/Vol] mg/dL Normal [facility] Comment on above: Performed By: #### C MP, T4F, TSH3, CBC, ETOH, JUAN, ACET, VALP #### [facility] [address] Percent Ethanol Not performed Normal [facility] Comment on above: Result Comment: PERF ORMED BY: [place] [address] PATHOLOGIST MANAGER SOCIAL RESPONSIBILITY ANTONY ELIAS M.D. Performed By: #### C MP, T4F, TSH3, CBC, ETOH, JUAN, ACET, VALP #### [facility] [address] Free T4 (Free Thyroxine)on Free T4 [Mass/Vol] 1.10 ng/dL Normal 0.61-1.12 [facility] Comment on above: Performed By: #### C BC, CMP, PHOS, MG, LIPID #### [facility] [address] [place] [address] [place] Globulin Calc (S) [Mass/Vol] Ordered By: Justin Francisco on 01-03-2022 Globulin (S) [Mass/Vol] 3.1 g/dL F [facility] Hematocrit Auto (Bld) [Volum e fraction]Ordered By: Justin Francisco on 01-03-2022 Hematocrit (Bld) [Volume fraction] 41.0 % 34.0-46.4 [facility] Ketones Auto test strip (U) [Mass/Vol]Ordered By: Justin Francisco on 01-03-2022 Ketones (U) [Mass/Vol] Negative Negative [facility] Laboratory - Drug toxicology Ordered By: Justin Francisco on 01-03-2022 Opiates Ql (U) Negative Negative [facility] Laboratory - Hematology and Cell countsOrdered By: Justin Francisco on 01-03-2022 Nucleated RBC/100 WBC (Bld) [Ratio] 0.1 % 0-0.5 [facility] Laboratory - UrinalysisOrder ed By: Justin Francisco on 01-03-2022 Hyaline casts LM Ql (Urine sed) 0-8 [LPF] 0-8 [facility] Lymphocytes Auto (Bld) [#/Vo l]Ordered By: Justin Francisco on 01-03-2022 Lymphocytes (Bld) [#/Vol] 1.4 10*3/uL 1.00-4.8 [facility] Lymphocytes/100 WBC Auto (Bl d)Ordered By: Justin Francisco on 01-03-2022 Lymphocytes/100 WBC (Bld) 22.3 % . [facility] MCH Auto (RBC) [Entitic mass ]Ordered By: Justin Francisco on 01-03-2022 MCH (RBC) [Entitic mass] 29.7 pg 24.7-34.3 [facility] MCHC Auto (RBC) [Mass/Vol]Or dered By: Justin Francisco on 01-03-2022 MCHC (RBC) [Mass/Vol] 32.6 g/dL 32.0-35.0 [facility] MCV Auto (RBC) [Entitic vol] Ordered By: Justin Francisco on 01-03-2022 MCV (RBC) [Entitic vol] 91.0 fL 80-100 F [facility] Monocytes Auto (Bld) [#/Vol] Ordered By: Justin Francisco on 01-03-2022 Monocytes (Bld) [#/Vol] 0.6 10*3/uL 0.0-0.8 [facility] Monocytes/100 WBC Auto (Bld) Ordered By: Justin Francisco on 01-03-2022 Monocytes/100 WBC (Bld) 8.9 % . F [facility] Neutrophils Auto (Bld) [#/Vo l]Ordered By: Justin Francisco on 01-03-2022 Neutrophils (Bld) [#/Vol] 4.3 10*3/uL 1.8-7.7 [facility] Neutrophils/100 WBC Auto (Bl d)Ordered By: Justin Francisco on 01-03-2022 Neutrophils/100 WBC (Bld) 66.8 % . [facility] Nitrite Test strip Ql (U)Ord ered By: Justin Francisco on 01-03-2022 Nitrite Ql (U) Negative Negative [facility] No Panel InformationOrdered By: Justin Francisco on 01-03-2022 Estimated GFR () 47 mL/Min [facility] Comment on above: GFR estimated refere nce range: According to KDOQI guidelines, <60 ml/min/1.73m2 is sufficient to diagnose a patient with chronic kidney disease. Pharmacy Creatinine Clearance (Chem 43.00 [facility] Valproic Acid (Depakene) Level 59.0 ug/mL 50.0-100.0 [facility] Comment on above: Last dose: - SARS Antigen (LFIA) [facility] Phencyclidine Screen Ql (U)O rdered By: Justin Francisco on 01-03-2022 Phencyclidine Ql (U) Negative Negative [facility] Platelet mean volume Auto (B ld) [Entitic vol]Ordered By: Justin Francisco on 01-03-2022 Platelet mean volume (Bld) [Entitic vol] 8.8 fL 6.3-10.7 [facility] Platelets Auto (Bld) [#/Vol] Ordered By: Justin Francisco on 01-03-2022 Platelets (Bld) [#/Vol] 236 10*3/uL 150-450 [facility] Protein Auto test strip (U) [Mass/Vol]Ordered By: Justin Francisco on 01-03-2022 Protein (U) [Mass/Vol] Negative Negative [facility] Protein [Mass/volume] in Ser um or PlasmaOrdered By: Justin Francisco on 01-03-2022 Protein [Mass/Vol] 6.7 g/dL 6.1-7.9 [facility] RBC Auto (Bld) [#/Vol]Ordere d By: Justin Francisco on 01-03-2022 RBC (Bld) [#/Vol] 4.50 10*6/uL 3.60-5.00 [facility] Salicylateon 01-03-2022 Salicylate < 4.0 Low 15.0-30.0 [facility] Comment on above: Result Comment: Phuong ents treated with Sulfasalazine may generate a false high result for Salicylate. Patients treated with Sulfapyridine may generate a false low result for Salicylate. Performed By: #### C MP, T4F, TSH3, CBC, ETOH, JUAN, ACET, VALP #### [address] Salicylates [Mass/volume] in Serum or PlasmaOrdered By: Justin Francisco on 01-03-2022 Salicylates [Mass/Vol] mg/dL 15.0-30.0 [facility] Comment on above: Patients treated wit h Sulfasalazine may generate a false high result for Salicylate.Patients treated with Sulfapyridine may generate a false low result for Salicylate. Serum or plasma acetaminophe n measurement (mass/volume)Ordered By: Justin Francisco on 01-03-2022 Acetaminophen [Mass/Vol] 25.3 ug/mL 10.0-30.0 [facility] Serum or plasma alanine angeles otransferase measurement without P-5'-P (enzymatic activiOrdered By: Justin Francisco on 01-03-2022 ALT No additional P-5'-P [Catalytic activity/Vol] 14 U/L 10-60 [facility] Serum or plasma albumin/glob ulin mass ratioOrdered By: Justin Francisco on 01-03-2022 Albumin/Globulin [Mass ratio] 1.2 {ratio} [facility] Serum or plasma alkaline flaquita sphatase measurement (enzymatic activity/volume)Ordered By: Justin Francisco on 01-03-2022 ALP [Catalytic activity/Vol] 40 U/L 32-92 [facility] Serum or plasma anion gap de terminationOrdered By: Justin Francisco on 01-03-2022 Anion gap [Moles/Vol] 16.7 mmol/L 6.0-15.0 [facility] Serum or plasma aspartate am inotransferase measurement (enzymatic activity/volume)Ordered By: Justin Francisco on 01-03-2022 AST [Catalytic activity/Vol] 18 U/L 10-42 [facility] Serum or plasma calcium sarah urement (mass/volume)Ordered By: Justin Francisco on 01-03-2022 Calcium [Mass/Vol] 9.5 mg/dL 8.2-10.2 [facility] Serum or plasma chloride deep surement (moles/volume)Ordered By: Justin Francisco on 01-03-2022 Chloride [Moles/Vol] 99 mmol/L 95-114 [facility] Serum or plasma ethanol sarah urement (mass/volume)Ordered [...] on 01-03-2022 Potassium [Moles/Vol] 4.3 mmol/L 3.5-5.1 [facility] Serum or plasma sodium measu rement (moles/volume)Ordered By: Justin Francisco on 01-03-2022 Sodium [Moles/Vol] 135 mmol/L 136-146 [facility] Serum or plasma total biliru bin measurement (mass/volume)Ordered By: Justin Francisco on 01-03-2022 Bilirubin [Mass/Vol] 0.6 mg/dL 0.3-1.2 [facility] Serum or plasma total carbon dioxide measurement (moles/volume)Ordered By: Justin Francisco on 01-03-2022 CO2 [Moles/Vol] 23.6 mmol/L 22.0-30.0 [facility] Serum or plasma urea nitroge n measurement (mass/volume)Ordered By: Justin Francisco on 01-03-2022 Urea nitrogen [Mass/Vol] 14 mg/dL 12-23 [facility] Delores Ag Negativeon 01-04-20 Delores Ag Negative Negative Normal Negative [facility] Comment on above: Result Comment: This is a duplicate Delores SARS Antigen (MARLINE) result to be used for statistical tracking purpose only. PERFORMED BY: [place] [address] PATHOLOGIST MANAGER SOCIAL RESPONSIBILITY ANTONY ELIAS M.D. Performed By: #### C BC, CMP, PHOS, MG, LIPID #### [facility] [address] Specific gravity Auto test s trip (U) [Rel density]Ordered By: Justin Francisco on 01-03-2022 Specific gravity (U) [Rel density] 1.012 1.001-1.030 [facility] Squamous epithelial cells de tection in urine sediment by light microscopyOrdered By: Justin Francisco on 01-03-2022 Epithelial cells.squamous LM Ql (Urine sed) 3-4 [HPF] 0-2 [facility] TSH DL <= 0.005 mIU/L QnOrde red By: Justin Francisco on 01-03-2022 TSH Qn 4.71 m[IU]/L 0.45-5.33 [facility] Thyroid Stimulating Hormoneo n 01-03-2022 TSH Qn 4.71 m[IU]/L Normal 0.45-5.33 [facility] Comment on above: Result Comment: PERF ORMED BY: [facility] [address] [place] [address] PATHOLOGIST MANAGER SOCIAL RESPONSIBILITY ANTONY ELIAS M.D. Performed By: #### C BC, CMP, PHOS, MG, LIPID #### [facility] [address] Thyroxine (T4) free [Mass/vo lume] in Serum or PlasmaOrdered By: Justin Francisco on 01-03-2022 Free T4 [Mass/Vol] 1.10 ng/dL 0.61-1.12 [facility] Urine Cultureon 01-03-2022 Bacteria identified Cx Nom (U) ORGANISM: Escherichia coli (O:ESCCOL) [place] Count >100,000 Aerobic AHMET Charge (NUC86) ---- [...] RESISTANT TO ALL B-LACTAM DRUGS. PERFORMED BY: [place] [address] PATHOLOGIST MANAGER SOCIAL RESPONSIBILITY ANTONY ELIAS M.D. Normal [facility] Comment on above: Performed By: #### C BC, CMP, PHOS, MG, LIPID #### [facility] [address] Urine bacteria detection by automated methodOrdered By: Justin Francisco on 01-03-2022 Bacteria Auto Ql (U) 2+ None Seen [facility] Urine clarity by refractomet ry automatedOrdered By: Justin Francisco on 01-03-2022 Clarity Refractometry automated (U) Clear Clear [facility] Urine cocaine detectionOrder ed By: Justin Francisco on 01-03-2022 Cocaine Ql (U) Negative Negative [facility] Urine glucose measurement by automated test strip (mass/volume)Ordered By: Justin Francisco on 01-03-2022 Glucose Auto test strip (U) [Mass/Vol] Normal mg/dL Normal [facility] Urine hemoglobin detection b y automated test stripOrdered By: Justin Francisco on 01-03-2022 Hemoglobin Auto test strip Ql (U) Negative Negative [facility] Urine leukocyte esterase det ection by automated test stripOrdered By: Justin Francisco on 01-03-2022 Leukocyte esterase Auto test strip Ql (U) 2+ Negative [facility] Urobilinogen Auto test strip (U) [Mass/Vol]Ordered By: Justin Francisco on 01-03-2022 Urobilinogen (U) [Mass/Vol] Normal mg/dL Normal [facility] Valproic Acid (in house)on 1 Valproic Acid (in house) 59.0 ug/mL Normal 50.0-100.0 [facility] Comment on above: Result Comment: Last dose: - PERFORMED BY: [place] [address] PATHOLOGIST MANAGER SOCIAL RESPONSIBILITY ANTONY ELIAS M.D. Performed By: #### C MP, T4F, TSH3, CBC, ETOH, JUAN, ACET, VALP #### [facility] [address] Yeast detection in urine sed iment by light microscopyOrdered By: Justin Francisco on 01-03-2022 Yeast LM Ql (Urine sed) None seen [HPF] None Se en [facility] pH Auto test strip (U)Ordere d By: Justin Francisco on 01-03-2022 pH (U) 5.5 [pH] 5.0-9.0 [facility] CBC AUTO DIFFon 10-27-2021 BASO # 0.1 103/ul Normal 0.0-0.1 [place] Comment on above: Performed By: #### C BC ####[facility] [address] [place] [address]Dr. Julio Goddard Basophils/100 WBC (Bld) 0.6 % Normal 0.2-2.0 [facility] Comment on above: Performed By: #### C BC ####[facility] [address] [place] [address]Dr. Julio Goddard EO # 0.2 103/ul Normal 0.0-0.7 [place] Comment on above: Performed By: #### C BC ####[facility] [address] [place], [place] [address]Dr. Julio Goddard Eosinophils/100 WBC (Bld) 2.4 % Normal 0.9-7.0 [place] Comment on above: Performed By: #### C BC ####[facility] [address] [place], [place] [address]Dr. Julio Goddard Erythrocyte distribution width (RBC) [Ratio] 15.0 % Normal 11.0-15.0 [place] Comment on above: Performed By: #### C BC ####[facility] [address] [place], [place] [address]Dr. Julio Goddard Hematocrit (Bld) [Volume fraction] 37.4 % Normal 36.0-48.0 [place] Comment on above: Performed By: #### C BC ####[facility] [address] [place], [place] [address]Dr. Julio Goddard Hemoglobin (Bld) [Mass/Vol] 12.2 g/dL Normal 12.0-16.0 [place] Comment on above: Performed By: #### C BC ####[facility] [address] [place] [address]Dr. Julio Goddard IG # 0.04 10e3/ul Critically high 0.00-0.03 [facility] Comment on above: Performed By: #### C BC ####[facility] [address] [place] [id number]. Julio Rupesh IG % 0.4 % Normal 0.0-0.5 [place] Comment on above: Performed By: #### C BC ####[facility] [address] [place] [id number]. Julio Rupesh LYMPH # 2.3 103/ul Normal 1.2-3.8 [facility] Comment on above: Performed By: #### C BC ####[facility] [address] [place] [id number]. Julio Rupesh Lymphocytes/100 WBC (Bld) 23.6 % Normal 20.5-60.0 [facility] Comment on above: Performed By: #### C BC ####[facility] [address] [place] [address]Dr. Julio Rupesh MANUAL DIFF REQ NO Normal [facility] Comment on above: Performed By: #### C BC ####[facility] [address] [place] [id number]. Julio Goddard MCH (RBC) [Entitic mass] 29.3 pg Normal 26.7-34.0 [facility] Comment on above: Performed By: #### C BC ####[facility] [address] [place] [address]Dr. Julio Goddard MCHC (RBC) [Mass/Vol] 32.6 g/dL Normal 29.9-35.2 [place] Comment on above: Performed By: #### C BC ####[facility] [address] [place] [address]Dr. Julio Goddard MCV (RBC) [Entitic vol] 89.7 fL Normal 81.0-99.0 [facility] Comment on above: Performed By: #### C BC ####[facility] [address] [place], [place] [address]Dr. Hiralharesh Goddard MONO # 0.6 103/ul Normal 0.3-0.8 [facility] Comment on above: Performed By: #### C BC ####[facility] [address] [place] [id number]. Julio Goddard Monocytes/100 WBC (Bld) 5.5 % Normal 1.7-12.0 [facility] Comment on above: Performed By: #### C BC ####[facility] [address] [place] [id number]. Julio Goddard NEUT # 6.7 103/ul Critically high 1.4-6.5 [facility] Comment on above: Performed By: #### C BC ####[facility] [address]xl[address] [place] [id number]. Julio Goddard Neutrophils/100 WBC (Bld) 67.5 % Normal 43.0-75.0 [place] Comment on above: Performed By: #### C BC ####[facility] [address] [place] [id number]. Julio Goddard Platelet mean volume (Bld) [Entitic vol] 10.2 fL Normal 9.5-13.5 [place] Comment on above: Performed By: #### C BC ####[facility] [address] [place] [id number]. Julio Goddard PLT 296 103/ul Normal 150-450 [place] Comment on above: Performed By: #### C BC ####[facility] [address] [place] [id number]. Julio Goddard RBC 4.17 106/ul Critically low 4.20-5.40 [facility] Comment on above: Performed By: #### C BC ####[facility] [address] [place] [id number]. Julio Goddard WBC 9.9 103/ul Normal 4.0-11.0 [place] Comment on above: Performed By: #### C BC ####[facility] [address] [place] [id number]. Julio Goddard LIPID PROFILEon 10-27-2021 CHOL-HDL RATIO NORM SEE BELOW Normal [facility] Comment on above: Result Comment: 3.3 - 4.4 LOW RISK 4.4 - 7.1 AVERAGE RISK 7.1 - 11.0 MODERATE RISK >11.0 HIGH RISK Performed By: #### C MP, LIPID ####[facility] [address] [place] [id number]. Julio Goddard Cholesterol [Mass/Vol] 148 mg/dL Normal <=200 Th [facility] Comment on above: Performed By: #### C MP, LIPID ####[facility] [address] [place], [place] [address]Ir. Hiralharesh Goddard Cholesterol in HDL [Mass/Vol] 60 mg/dL Normal 40-60 [place] Comment on above: Performed By: #### C MP, LIPID ####[facility] [address] [place] [id number]. Hiralharesh Rupesh Cholesterol in LDL [Mass/Vol] 72.2 mg/dL Normal [place] Comment on above: Performed By: #### C MP, LIPID ####[facility] [address] [place] [id number]. Julio Goddard Cholesterol.total/Choles terol in HDL [Mass ratio] 2.5 {ratio} Normal [place] Comment on above: Performed By: #### C MP, LIPID ####[facility] [address] [place] [id number]. Julio Goddard HDL NORMAL > or = 60 mg/dl - LO W CARDIOVASCULAR RISK <40 mg/dl - HIGH CARDIOVASCULAR RISK Normal [place] Comment on above: Performed By: #### C MP, LIPID ####[facility] [address] [place] [id number]. Hiralharesh Rupesh LDL CALC NORMAL SEE BELOW Normal [facility] Comment on above: Result Comment: <100 mg/dl OPTIMAL 100 - 129 mg/dl NEAR OR ABOVE OPTIMAL 130 - 159 mg/dl BORDERLINE HIGH 160 - 189 mg/dl HIGH >190 mg/dl VERY HIGH Performed By: #### C MP, LIPID ####[facility] [address] [place] [id number]. Julio Goddard Triglyceride [Mass/Vol] 79 mg/dL Normal <=150 T [facility] Comment on above: Performed By: #### C MP, LIPID ####[facility] [address] [place], [place] [address]QsDr. Julio Goddard VLDL CALC 15.8 mg/dL Normal [place] Comment on above: Performed By: #### C MP, LIPID ####[facility] [address] [place] [id number]. Julio Goddard PROF 14(COMP METB)on 022 Albumin [Mass/Vol] 3.7 g/dL Normal 3.4-5.0 [facility] Comment on above: Performed By: #### C MP, LIPID #### [facility] [address] [address] [address] Julio Goddard Albumin/Globulin [Mass ratio] 1.0 {ratio} Normal [place] Comment on above: Performed By: #### C MP, LIPID #### [facility] [address] [address] [address] Julio Goddard ALP [Catalytic activity/Vol] 53 U/L Normal 46-116 [place] Comment on above: Performed By: #### C MP, LIPID #### [facility] [address] [address] [address] Julio Goddard ALT [Catalytic activity/Vol] 15 U/L Normal 14-59 [place] Comment on above: Performed By: #### C MP, LIPID #### [facility] [address] [address] [address] Julio Goddard Anion gap [Moles/Vol] 16.1 mmol/L Normal [facility] Comment on above: Performed By: #### C MP, LIPID #### [facility] [address] [place] [address] [address] Julio Goddard AST [Catalytic activity/Vol] 8 U/L Critically low 15-37 [place] Comment on above: Performed By: #### C MP, LIPID #### [facility] [address] [place] [address] [address] Julio Goddard Bilirubin [Mass/Vol] 0.5 mg/dL Normal 0.2-1.0 [place] Comment on above: Performed By: #### C MP, LIPID #### [facility] [address] [place] [address] [address] Julio Goddard Calcium [Mass/Vol] 9.1 mg/dL Normal 8.5-10.1 [facility] Comment on above: Performed By: #### C MP, LIPID #### [facility] [address] [place] [address] [address] Julio Goddard Chloride [Moles/Vol] 106 mmol/L Normal 98-107 [place] Comment on above: Performed By: #### C MP, LIPID #### [facility] [address] [place] [address] Dr. Julio Goddard CO2 [Moles/Vol] 24.1 mmol/L Normal 21.0-32.0 [facility] Comment on above: Performed By: #### C MP, LIPID #### [facility] [address] [place] [address] Dr. Julio Goddard Creatinine [Mass/Vol] 1.40 mg/dL Critically high 0.55-1.02 [place] Comment on above: Performed By: #### C MP, LIPID #### [facility] [address] [place] [address] Dr. Julio Goddard EGFR-AF ANGUILLAN 47 mL/min/1.73m2 Critically low >=60 [place] Comment on above: Performed By: #### C MP, LIPID #### [facility] [address] [place] [address] Dr. Julio Goddard EGFR-NON AF ANGUILLAN 39 mL/min/1.73m2 Critically low >=60 [place] Comment on above: Performed By: #### C MP, LIPID #### [facility] [address] [place] [address] Dr. Julio Goddard Globulin (S) [Mass/Vol] 3.6 g/dL Normal [facility] Comment on above: Performed By: #### C MP, LIPID #### [facility] [address] [place] [address] Dr. Julio Goddard Glucose [Mass/Vol] 95 mg/dL Normal 74-106 [facility] Comment on above: Performed By: #### C MP, LIPID #### [facility] [address] [place] [address] [address] Julio Goddard Potassium [Moles/Vol] 4.2 mmol/L Normal 3.5-5.1 [place] Comment on above: Performed By: #### C MP, LIPID #### [facility] [address] [place] [address] [address] Julio Goddard Protein [Mass/Vol] 7.3 g/dL Normal 6.4-8.2 [facility] Comment on above: Performed By: #### C MP, LIPID #### [facility] [address] [place] [address] [address] Julio Goddard Sodium [Moles/Vol] 142 mmol/L Normal 136-145 [facility] Comment on above: Performed By: #### C MP, LIPID #### [facility] [address] [place] [address] [address] Julio Goddard Urea nitrogen [Mass/Vol] 18.0 mg/dL Normal 7.0-18.0 [place] Comment on above: Performed By: #### C MP, LIPID #### [facility] [address] [place] [address] [address] Julio Goddard Urea nitrogen/Creatinine [Mass ratio] 12.9 mg/mg Normal [place] Comment on above: Performed By: #### C MP, LIPID #### [facility] [address] [place] [address] Dr. Julio Goddard INSULINon 03-23-2021 Insulin 10.0 uIU/mL Normal 2.6-24.9 [facility] Comment on above: Performed By: #### I NSULIN #### [facility] [address] [place] [address] [address] Julio Goddard VIT D 25-OH LABCORPon 2020 Vitamin D, 25-Hydroxy 11.8 ng/mL Critically low 30.0-100.0 [place] Comment on above: Result Comment: Swati min D deficiency has been defined by the [place] of [employer] and an Endocrine Society practice guideline as a level of serum 25-OH vitamin D less than 20 ng/mL (1,2). The Endocrine Society went on to further define vitamin D insufficiency as a level between 21 and 29 ng/mL (2). 1. IOM ([place] of [employer]). 2010. Dietary reference intakes for calcium and D. [place]: The National Academies Press. 2. Matt MF, Wilma IRVIN, Shiraz ELIZONDO, et al. Evaluation, treatment, and prevention of vitamin D deficiency: an Endocrine Society clinical practice guideline. JCEM. 2010; 96(9):1911-30. Performed By: #### V ITADLC ####[facility] [address] [place], [place] [address]GnDr. Julio Goddard CBC AUTO DIFFon 03-22-2021 BASO # 0.1 103/ul Normal 0.0-0.1 [place] Comment on above: Performed By: #### C BC #### [facility] [address] [address] [address] Julio Goddard Basophils/100 WBC (Bld) 0.8 % Normal 0.2-2.0 [facility] Comment on above: Performed By: #### C BC #### [facility] [address] [place] [address] [address] Julio Goddard EO # 0.2 103/ul Normal 0.0-0.7 [place] Comment on above: Performed By: #### C BC #### [facility] [address] [address] [address] Julio Goddard Eosinophils/100 WBC (Bld) 2.6 % Normal 0.9-7.0 [place] Comment on above: Performed By: #### C BC #### [facility] [address] [place] [address] [address] Julio Goddard Erythrocyte distribution width (RBC) [Ratio] 14.2 % Normal 11.0-15.0 [place] Comment on above: Performed By: #### C BC #### [facility] [address] [address] [address] Julio Goddard Hematocrit (Bld) [Volume fraction] 37.4 % Normal 36.0-48.0 [place] Comment on above: Performed By: #### C BC #### [facility] [address] [place] [address] Dr. Julio Goddard Hemoglobin (Bld) [Mass/Vol] 11.9 g/dL Critically low 12.0-16.0 [place] Comment on above: Performed By: #### C BC #### [facility] [address] [place] [address] Dr. Julio Goddard IG # 0.02 10e3/ul Normal 0.00-0.03 [place] Comment on above: Performed By: #### C BC #### [facility] [address] [place] [address] Dr. Julio Goddard IG % 0.3 % Normal 0.0-0.5 [place] Comment on above: Performed By: #### C BC #### [facility] [address] [place] [address] Dr. Julio Goddard LYMPH # 1.8 103/ul Normal 1.2-3.8 [facility] Comment on above: Performed By: #### C BC #### [facility] [address] [place] [address] Dr. Julio Goddard Lymphocytes/100 WBC (Bld) 27.6 % Normal 20.5-60.0 [place] Comment on above: Performed By: #### C BC #### [facility] [address] [place] [address] Dr. Julio Goddard MANUAL DIFF REQ NO Normal [facility] Comment on above: Performed By: #### C BC #### [facility] [address] [place] [address] Dr. Julio Goddard MCH (RBC) [Entitic mass] 29.1 pg Normal 26.7-34.0 [facility] Comment on above: Performed By: #### C BC #### [facility] [address] [place] [address] Dr. Julio Goddard MCHC (RBC) [Mass/Vol] 31.8 g/dL Normal 29.9-35.2 [facility] Comment on above: Performed By: #### C BC #### [facility] [address] [address] [address] Julio Goddard MCV (RBC) [Entitic vol] 91.4 fL Normal 81.0-99.0 [facility] Comment on above: Performed By: #### C BC #### [facility] [address] [address] [address] Julio Goddard MONO # 0.6 103/ul Normal 0.3-0.8 [place] Comment on above: Performed By: #### C BC #### [facility] [address] [address] [address] Julio Goddard Monocytes/100 WBC (Bld) 8.7 % Normal 1.7-12.0 [facility] Comment on above: Performed By: #### C BC #### [facility] [address] [place] [address] Dr. Julio Goddard NEUT # 3.9 103/ul Normal 1.4-6.5 [place] Comment on above: Performed By: #### C BC #### [facility] [address] [place] [address] Dr. Julio Goddard Neutrophils/100 WBC (Bld) 60.0 % Normal 43.0-75.0 [place] Comment on above: Performed By: #### C BC #### [facility] [address] [place] [address] Dr. Julio Goddard Platelet mean volume (Bld) [Entitic vol] 10.1 fL Normal 9.5-13.5 [place] Comment on above: Performed By: #### C BC #### [facility] [address] [place] [address] Dr. Julio Goddard PLT 263 103/ul Normal 150-450 [place] Comment on above: Performed By: #### C BC #### [facility] [address] [place] [address] Dr. Julio Goddard RBC 4.09 106/ul Critically low 4.20-5.40 [facility] Comment on above: Performed By: #### C BC #### [facility] [address] [address] [address] Julio Goddard WBC 6.5 103/ul Normal 4.0-11.0 [place] Comment on above: Performed By: #### C BC #### [facility] [address] [place] [address] Dr. Julio Goddard FREE THYROXINE INDEX T7on FTI 3.50 Normal [place] Comment on above: Performed By: #### C MP, T7, LIPID, TSH #### [facility] [address] [place] [address] Dr. Julio Goddard T3U 35.0 % Normal 23.5-40.5 [place] Comment on above: Performed By: #### C MP, T7, LIPID, TSH #### [facility] [address] [place] [address] Dr. Julio Goddard T4 [Mass/Vol] 10.00 ug/dL Normal 5.53-11.00 [facility] Comment on above: Performed By: #### C MP, T7, LIPID, TSH #### [facility] [address] [place] [address] Dr. Julio Goddard GLYCOHEMOGLOBIN A1Con 2020 ADA RECOMMENDATION ADA THERAPEUTIC TARGET 6.0 - 7.0 ACTION SUGGESTED > 7.0 Normal [place] Comment on above: Performed By: #### A 1C #### [facility] [address] [place] [address] Dr. Julio Goddard Glucose [Mass/Vol] 103 mg/dL Normal [facility] Comment on above: Performed By: #### A 1C #### [facility] [address] [place] [address] Dr. Julio Goddard HbA1c (Bld) [Mass fraction] 5.2 % Normal <=6.0 [place] Comment on above: Performed By: #### A 1C #### [facility] [address] [place] [address] Dr. Julio Goddard IRONon 03-22-2021 Iron [Mass/Vol] 55.0 ug/dL Normal 37.0-170.0 [facility] Comment on above: Performed By: #### I MARIA E ####[facility] [id number] [place], [place] [address]UsDr. Julio Goddard LIPID PROFILEon 03-22-2021 CHOL-HDL RATIO NORM SEE BELOW Normal [facility] Comment on above: Result Comment: 3.3 - 4.4 LOW RISK 4.4 - 7.1 AVERAGE RISK 7.1 - 11.0 MODERATE RISK >11.0 HIGH RISK Performed By: #### C MP, T7, LIPID, TSH #### [facility] [address] [address] [address] Julio Goddard Cholesterol [Mass/Vol] 163 mg/dL Normal <=200 Th [facility] Comment on above: Performed By: #### C MP, T7, LIPID, TSH #### [facility] [address] [address] [address] Julio Goddard Cholesterol in HDL [Mass/Vol] 65 mg/dL Normal [place] Comment on above: Performed By: #### C MP, T7, LIPID, TSH #### [facility] [address] [address] [address] Julio Goddard Cholesterol in LDL [Mass/Vol] 80.8 mg/dL Normal [place] Comment on above: Performed By: #### C MP, T7, LIPID, TSH #### [facility] [address] [address] [address] Julio Goddard Cholesterol.total/Choles terol in HDL [Mass ratio] 2.5 {ratio} Normal [place] Comment on above: Performed By: #### C MP, T7, LIPID, TSH #### [facility] [address] [address] [address] Julio Goddard HDL NORMAL > or = 60 mg/dl - LO W CARDIOVASCULAR RISK <40 mg/dl - HIGH CARDIOVASCULAR RISK Normal [place] Comment on above: Performed By: #### C MP, T7, LIPID, TSH #### [facility] [address] [address] [address] Julio Goddard LDL CALC NORMAL SEE BELOW Normal [facility] Comment on above: Result Comment: <100 mg/dl OPTIMAL 100 - 129 mg/dl NEAR OR ABOVE OPTIMAL 130 - 159 mg/dl BORDERLINE HIGH 160 - 189 mg/dl HIGH >190 mg/dl VERY HIGH Performed By: #### C MP, T7, LIPID, TSH #### [facility] [address] [address] [address] Julio Goddard Triglyceride [Mass/Vol] 86 mg/dL Normal <=150 T [facility] Comment on above: Performed By: #### C MP, T7, LIPID, TSH #### [facility] [address] [address] [address] Julio Goddard VLDL CALC 17.2 mg/dL Normal [place] Comment on above: Performed By: #### C MP, T7, LIPID, TSH #### [facility] [address] [address] [address] Julio Goddard PROF 14(COMP METB)on 021 Albumin [Mass/Vol] 3.5 g/dL Normal 3.5-5.0 [facility] Comment on above: Performed By: #### C MP, T7, LIPID, TSH #### [facility] [address] [place] [address] Dr. Julio Goddard Albumin/Globulin [Mass ratio] 1.0 {ratio} Normal [place] Comment on above: Performed By: #### C MP, T7, LIPID, TSH #### [facility] [address] [place] [address] Dr. Julio Goddard ALP [Catalytic activity/Vol] 58 U/L Normal 38-126 [place] Comment on above: Performed By: #### C MP, T7, LIPID, TSH #### [facility] [address] [place] [address] Dr. Julio Goddard ALT [Catalytic activity/Vol] 16 U/L Normal 9-52 [place] Comment on above: Performed By: #### C MP, T7, LIPID, TSH #### [facility] [address] [address] [address] Julio Goddard Anion gap [Moles/Vol] 13.0 mmol/L Normal [facility] Comment on above: Performed By: #### C MP, T7, LIPID, TSH #### [facility] [address] [place] [address] Dr. Julio Goddard AST [Catalytic activity/Vol] 10 U/L Critically low 14-36 [place] Comment on above: Performed By: #### C MP, T7, LIPID, TSH #### [facility] [address] [place] [address] Dr. Julio Goddard Bilirubin [Mass/Vol] 0.6 mg/dL Normal 0.2-1.3 [place] Comment on above: Performed By: #### C MP, T7, LIPID, TSH #### [facility] [address] [place] [address] Dr. Julio Goddard Calcium [Mass/Vol] 9.4 mg/dL Normal 8.4-10.2 [facility] Comment on above: Performed By: #### C MP, T7, LIPID, TSH #### [facility] [address] [place] [address] Dr. Julio Goddard Chloride [Moles/Vol] 105 mmol/L Normal 98-107 [facility] Comment on above: Performed By: #### C MP, T7, LIPID, TSH #### [facility] [address] [place] [address] Dr. Julio Goddard CO2 [Moles/Vol] 28.3 mmol/L Normal 22.0-30.0 [facility] Comment on above: Performed By: #### C MP, T7, LIPID, TSH #### [facility] [address] [place] [address] Dr. Julio Goddard Creatinine [Mass/Vol] 1.37 mg/dL Critically high 0.52-1.04 [place] Comment on above: Performed By: #### C MP, T7, LIPID, TSH #### [facility] [address] [place] [address] Dr. Julio Goddard EGFR-AF ANGUILLAN 48 mL/min/1.73m2 Critically low >=60 [place] Comment on above: Performed By: #### C MP, T7, LIPID, TSH #### [facility] [address] [place] [address] Dr. Julio Goddard EGFR-NON AF ANGUILLAN 40 mL/min/1.73m2 Critically low >=60 [place] Comment on above: Performed By: #### C MP, T7, LIPID, TSH #### [facility] [address] [address] [address] Julio Goddard Globulin (S) [Mass/Vol] 3.5 g/dL Normal [facility] Comment on above: Performed By: #### C MP, T7, LIPID, TSH #### [facility] [address] [place] [address] Dr. Julio Goddard Glucose [Mass/Vol] 110 mg/dL Critically high 74-106 [facility] Comment on above: Performed By: #### C MP, T7, LIPID, TSH #### [facility] [address] [place] [address] Dr. Julio Goddard Potassium [Moles/Vol] 4.3 mmol/L Normal 3.4-5.0 [place] Comment on above: Performed By: #### C MP, T7, LIPID, TSH #### [facility] [address] [place] [address] Dr. Julio Goddard Protein [Mass/Vol] 7.0 g/dL Normal 6.1-8.2 [facility] Comment on above: Performed By: #### C MP, T7, LIPID, TSH #### [facility] [address] [place] [address] Dr. Julio Goddard Sodium [Moles/Vol] 142 mmol/L Normal 137-145 [facility] Comment on above: Performed By: #### C MP, T7, LIPID, TSH #### [facility] [address] [place] [address] Dr. Julio Goddard Urea nitrogen [Mass/Vol] 13.0 mg/dL Normal 7.0-17.0 [place] Comment on above: Performed By: #### C MP, T7, LIPID, TSH #### [facility] [address] [place] [address] Dr. Julio Goddard Urea nitrogen/Creatinine [Mass ratio] 9.5 mg/mg Normal [place] Comment on above: Performed By: #### C MP, T7, LIPID, TSH #### [facility] [address] [address] [address] Julio Goddard TSHon 03-22-2021 TSH 2.734 uIU/mL Normal 0.470-4.680 [facility] Comment on above: Performed By: #### C MP, T7, LIPID, TSH #### [facility] [address] [address] [address] Julio Goddard TSH RANGE SEE BELOW Normal [place] Comment on above: Result Comment: <0.3 4 UIU/ml HYPERTHYROID 0.34-5.60 UIU/ml EUTHYROID >5.60 UIU/ml HYPOTHYROID Performed By: #### C MP, T7, LIPID, TSH #### [facility] [address] [address] [address] Julio Goddard Vital Signs Date Time Vital Sign Value Performing Clinician Facility 08-21-2023 09:39-0400 Blood Pressure Location PRANAV CARVALHO [facility] 08-21-2023 09:39-0400 Diastolic blood pressure 63 mm[Hg] PRANAV CARVALHO [facility] 08-21-2023 09:39-0400 Heart rate 74 /min PRANAV CARVALHO [facility] 08-21-2023 09:39-0400 Respiratory rate 19 /min PRANAV CARVALHO [facility] 08-21-2023 09:39-0400 Systolic blood pressure 108 mm[Hg] PRANAV CARVALHO [facility] 05-30-2022 13:47-0500 Body height 157.5 cm Uprani Mcallister MD Work Phone: [facility] 05-30-2022 13:47-0500 Body mass index (BMI) [Ratio] 32.74 kg/m2 Scott Mcallister MD Work Phone: [facility] 05-30-2022 13:47-0500 Body weight 81.19 kg Scott Mcallister MD Work Phone: [facility] 05-30-2022 13:47-0500 Diastolic blood pressure 84 mm[Hg] Scott Mcallister MD Work Phone: [facility] 05-30-2022 13:47-0500 Heart rate 76 /min Scott Mcallister MD Work Phone: [facility] 05-30-2022 13:47-0500 Respiratory rate 16 /min Soctt Mcallister MD Work Phone: [facility] 05-30-2022 13:47-0500 SaO2% (BldA) [Mass fraction] 97 % Scott Mcallister MD Work Phone: [facility] 05-30-2022 13:47-0500 Systolic blood pressure 129 mm[Hg] Scott Mcallister MD Work Phone: [facility] 02-28-2022 12:48-0500 Body height 157.5 cm Scott Mcallister MD Work Phone: [facility] 02-28-2022 12:48-0500 Body mass index (BMI) [Ratio] 32.74 kg/m2 Scott Mcallister MD Work Phone: [facility] 02-28-2022 12:48-0500 Body weight 81.19 kg Scott Mcallister MD Work Phone: [facility] 02-28-2022 12:48-0500 Diastolic blood pressure 83 mm[Hg] Scott Mcallister MD Work Phone: [facility] 02-28-2022 12:48-0500 Heart rate 78 /min Scott Mcallister MD Work Phone: [facility] 02-28-2022 12:48-0500 Respiratory rate 18 /min Scott Mcallister MD Work Phone: [facility] 02-28-2022 12:48-0500 SaO2% (BldA) [Mass fraction] 95 % Scott Mcallister MD Work Phone: [facility] 02-28-2022 12:48-0500 Systolic blood pressure 132 mm[Hg] Scott Mcallister MD Work Phone: [facility] 01-05-2022 11:19-0400 Diastolic blood pressure 79 mm[Hg] DO Justin Francisco Work Phone: [facility] 01-05-2022 11:19-0400 Heart rate 75 /min DO Justin Francisco Work Phone: [facility] 01-05-2022 11:19-0400 Respiratory rate 18 /min DO Justin Francisco Work Phone: [facility] 01-05-2022 11:19-0400 SaO2% (BldA) [Mass fraction] 97 % DO Justin Francisco Work Phone: [facility] 01-05-2022 11:19-0400 Systolic blood pressure 126 mm[Hg] DO Justin Francisco Work Phone: [facility] 01-05-2022 08:17-0400 Body temperature 97.5 [degF] DO Justin Francisco Work Phone: [facility] 01-05-2022 04:44-0400 Body weight 79.8 kg DO Justin Francisco Work Phone: [facility] 01-04-2022 11:34-0400 Body height 157.48 cm DO Justin Francisco Work Phone: [facility] 01-03-2022 17:04-0400 Diastolic blood pressure 110 mm[Hg] DO Justin Francisco Work Phone: [facility] 01-03-2022 17:04-0400 Heart rate 88 /min DO Justin Francisco Work Phone: [facility] 01-03-2022 17:04-0400 Respiratory rate 20 /min DO Justin Francisco Work Phone: [facility] 01-03-2022 17:04-0400 SaO2% (BldA) [Mass fraction] 97 % DO Justin Francisco Work Phone: [facility] 01-03-2022 17:04-0400 Systolic blood pressure 180 mm[Hg] DO Justin Francisco Work Phone: [facility] 01-03-2022 14:43-0400 Body height 157.48 cm DO Justin Francisco Work Phone: [facility] 01-03-2022 14:43-0400 Body weight 80 kg DO Justin Francisco Work Phone: [facility] 01-03-2022 13:59-0400 Body temperature 98.5 [degF] DO Justin Francisco Work Phone: [facility] 10-14-2021 13:13-0400 Body height 157.5 cm Uprani Mcallister MD Work Phone: [facility] 10-14-2021 13:13-0400 Body mass index (BMI) [Ratio] 32.92 kg/m2 Uprani Mcallister MD Work Phone: [facility] 10-14-2021 13:13-0400 Body weight 81.65 kg Uprani Mcallister MD Work Phone: [facility] 10-14-2021 13:13-0400 Diastolic blood pressure 85 mm[Hg] Scott Mcallister MD Work Phone: [facility] 10-14-2021 13:13-0400 Heart rate 76 /min Scott Mcallister MD Work Phone: [facility] 10-14-2021 13:13-0400 Respiratory rate 16 /min Uprani Mcallister MD Work Phone: [facility] 10-14-2021 13:13-0400 SaO2% (BldA) [Mass fraction] 95 % Scott Mcallister MD Work Phone: [facility] 10-14-2021 13:13-0400 Systolic blood pressure 125 mm[Hg] Scott Mcallister MD Work Phone: [facility] 07-19-2021 12:55-0400 Body height 157.5 cm Scott Mcallister MD Work Phone: [facility] 07-19-2021 12:55-0400 Body mass index (BMI) [Ratio] 32.92 kg/m2 Scott Mcallister MD Work Phone: [facility] 07-19-2021 12:55-0400 Body weight 81.65 kg Scott Mcallister MD Work Phone: [facility] 07-19-2021 12:55-0400 Diastolic blood pressure 86 mm[Hg] Scott Mcallister MD Work Phone: [facility] 07-19-2021 12:55-0400 Heart rate 67 /min Scott Mcallister MD Work Phone: [facility] 07-19-2021 12:55-0400 Respiratory rate 16 /min Scott Mcallister MD Work Phone: [facility] 07-19-2021 12:55-0400 SaO2% (BldA) [Mass fraction] 98 % Scott Mcallister MD Work Phone: [facility] 07-19-2021 12:55-0400 Systolic blood pressure 126 mm[Hg] Scott Mcallister MD Work Phone: [facility] 09-24-2020 13:12-0400 Body height 157.5 cm Scott Mcallister MD Work Phone: [facility] 09-24-2020 13:12-0400 Body mass index (BMI) [Ratio] 32.92 kg/m2 Scott Mcallister MD Work Phone: [facility] 09-24-2020 13:12-0400 Body weight 81.65 kg Upender Gehlot MD Work Phone: [facility] 09-24-2020 13:12-0400 Diastolic blood pressure 89 mm[Hg] Scott Mcallister MD Work Phone: [facility] 09-24-2020 13:12-0400 Heart rate 67 /min Scott Mcallister MD Work Phone: [facility] 09-24-2020 13:12-0400 Respiratory rate 16 /min Scott Mcallister MD Work Phone: [facility] 09-24-2020 13:12-0400 SaO2% (BldA) [Mass fraction] 95 % Scott Mcallister MD Work Phone: [facility] 09-24-2020 13:12-0400 Systolic blood pressure 146 mm[Hg] Scott Mcallister MD Work Phone: [facility] 07-27-2020 12:59-0400 Body height 165.1 cm Scott Mcallister MD Work Phone: [facility] 07-27-2020 12:59-0400 Body mass index (BMI) [Ratio] 22.63 kg/m2 Scott Mcallister MD Work Phone: [facility] 07-27-2020 12:59-0400 Body weight 61.69 kg Scott Mcallister MD Work Phone: [facility] 05-17-2020 13:11-0500 BP Diastolic 103 mm[Hg] rani Mcallister [facility] 05-17-2020 13:11-0500 BP Systolic 163 mm[Hg[facility] 05-17-2020 13:11-0500 Height 157.[address] [facility] 05-17-2020 13:11-0500 Pulse (Heart Rate) 66 /min rani [facility] 05-17-2020 13:11-0500 Pulse Oximetry 96 % rani [facility] 05-17-2020 13:11-0500 Respiratory Rate 16 /min rani [facility] Encounters Encounter Date Encounter Type Care Provider Facility Start: 11-27-2023 ambulatory PA-C PRANAV CARVALHO F acility:[facility] Start: 08-21-2023 End: 08-22-2023 ambulatory PA-C PRANAV CARVALHO Facility:[facility] Start: 08-21-2023 End: 08-21-2023 Patient encounter procedure PRANAV CARVALHO [facility] Start: 05-07-2023 ambulatory PA-C PRANAV CARVALHO Fac ility:[facility] Start: 05-30-2022 End: 05-30-2022 ambulatory UPENDER GEHLOT [facility] Start: 05-30-2022 End: 05-30-2022 Office outpatient visit 15 minutes Scott Mcallister MD Work Phone: [facility] Comment on above: Bipolar 1 disorder, mixed, mild (HCC) (Primary Dx); Insomnia due to mental disorder; VICKIE (generalized anxiety disorder) Start: 05-10-2022 Refill Scott Mcallister MD Work Phone: [facility] Start: 03-30-2022 Refill Scott Mcallister MD Work Phone: [facility] Comment on above: 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; VICKIE (generalized anxiety disorder) Start: 02-28-2022 End: 02-28-2022 ambulatory UPENDER GEHLOT [facility] Start: 02-28-2022 End: 02-28-2022 Office outpatient visit 25 minutes Scott Mcallister MD Work Phone: [facility] Comment on above: Bipolar 1 disorder, depressed, mild (HCC) (Primary Dx); Insomnia due to mental disorder; VICKIE (generalized anxiety disorder) Start: 01-19-2022 End: 01-20-[address] PETER ARNETT Facility: Start: 01-09-2022 End: 01-09-2022 ambulatory UPENDER GEHLOT [facility] Start: 01-03-2022 End: 01-05-2022 ambulatory Peter Arnett Facility:[facility] Start: 01-03-2022 End: 01-05-2022 Evaluation and management of inpatient DO Justin Francisco Work Phone: [facility] Start: 01-03-2022 End: 01-05-2022 observation encounter DO Justin Francisco Work Phone: [facility] Work Phone: Start: 10-27-2021 End: 10-28-2021 ambulatory SCOTT MCALLISTER Facility:[facility] Start: 10-14-2021 End: 10-14-2021 ambulatory UPENDER [facility] Start: 10-14-2021 End: 10-14-2021 Office outpatient visit 15 minutes Scott Mcallister MD Work Phone: [facility] Comment on above: Bipolar 1 disorder, depressed, moderate (HCC) (Primary Dx); Insomnia due to mental disorder; VICKIE (generalized anxiety disorder) Start: 10-05-2021 ambulatory UPRANI MCALLISTER [facility] Start: 07-22-2021 ambulatory PETER ARNETT [facility] Start: 07-19-2021 End: 07-19-2021 ambulatory PETER ARNETT [facility] Start: 07-19-2021 End: 07-19-2021 Office outpatient visit 15 minutes Scott Mcallister MD Work Phone: [facility] Comment on above: Bipolar 1 disorder, depressed, moderate (HCC) (Primary Dx); Insomnia due to mental disorder; VICKIE (generalized anxiety disorder) Start: 05-16-2021 Refill Sarah Leigh MA [facility] Comment on above: 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 (Primary Dx) 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 Start: 03-30-2021 Encounter for genera l adult medical examination without abnormal findings DR PETER ARNETT [facility] [facility] Start: 03-29-2021 Refill Nellie Sky MA [facility] Start: 03-22-2021 End: 03-23-[address] PETER ARNETT Facility:H1 Start: 03-22-2021 End: 03-23-2021 Encounter for general adult medical examination without abnormal findings DR PETER ARNETT Facility:H1 Start: 12-07-2020 Refill Lidia hernandez LPN [facility] Comment on above: 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; VICKIE (generalized anxiety disorder) Start: 09-24-2020 End: 09-24-2020 Office outpatient visit 25 minutes Uprani Mcallister MD Work Phone: [facility] Comment on above: Bipolar 1 disorder, depressed, mild (HCC) (Primary Dx); Insomnia due to mental disorder; VICKIE (generalized anxiety disorder) Start: 08-31-2020 End: 08-31-2020 Refill Lidia Mahoney LPN [facility] Comment on above: 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; VICKIE (Generalized Anxiety Disorder) Start: 07-27-2020 End: 07-27-2020 Phys/qhp telephone evaluation 11-20 min Uprani Mcallister MD Work Phone: [facility] Comment on above: Bipolar 1 disorder, depressed, mild (HCC) (Primary Dx); Insomnia due to mental disorder; VICKIE (Generalized Anxiety Disorder) Start: 05-17-2020 End: 05-17-2020 Office outpatient visit 15 minutes Uprani [employer] Work Phone: [facility] Comment on above: Bipolar 1 disorder, depressed, mild (HCC) (Primary Dx); VICKIE (Generalized Anxiety Disorder); Insomnia due to mental disorder Start: 04-06-2020 End: 04-06-2020 Phys/qhp telephone evaluation 11-20 min Uprani Mcallister Work Phone: [facility] Comment on above: Bipolar 1 disorder, depressed, mild (HCC); VICKIE (Generalized Anxiety Disorder); Insomnia due to mental disorder Procedures Date Procedure Procedure Detail Performing Clinician Start: 01-03-2022 CT of head without contrast DO Justin Francisco Work Phone: Start: 04-02-2002 Kidney Blockage Surg ical Procedure PRANAV CARVALHO Start: 04-02-1997 Cholecystectomy MATT CARVALHO Genital labium struc ture (body structure) PRANAV CARVALHO SARS Antigen (LFIA) DO Ermias Francisco Work Phone: Trichilemmal cyst (disorder) PRANAV CARVALHO Urethral structure ( body structure) PRANAV CARVALHO Urine culture DO Justin Grant on Work Phone: Urine culture DO Justin Grant on Work Phone: Plan of Treatment Date Care Activity Detail Author Start: 05-30-2022 End: 05-30-2022 Patient encounter procedure 05/30/2022 Office Visit Psychiatry Scott Mcallister MD [address] [address] [facility] Start: 01-09-2022 End: 01-09-2022 Patient encounter procedure 01/09/2022 Office Visit Scott Moy MD [address] [place] [id number] [facility] Start: 01-05-2022 [facility] Start: 01-04-2022 Comprehensive metabo lic 2000 panel - Serum or Plasma [facility] Start: 01-04-2022 Lipid panel [facility] Start: 01-04-2022 Magnesium measurement F [facility] Start: 01-04-2022 Phosphate [Mass/volu me] in Serum or Plasma [facility] Start: 01-04-2022 [facility] Start: 01-03-2022 Referral to psychiatrist [facility] Start: 01-03-2022 Hospital admission [facility] Start: 01-03-2022 [facility] Start: 12-01-2021 Influenza vaccination [facility] Start: 10-14-2021 End: 10-14-2021 Patient encounter procedure 10/14/2021 Office Visit Psychiatry Scott Mcallister MD [address] [facility] [address] [place] [id number] [facility] Start: 07-28-2021 COVID-19 Vaccine (4 - Booster for Pfizer series) COVID-19 Vaccine (4 - Booster for Pfizer series) [facility] Start: 07-15-2021 End: 07-15-2021 Patient encounter procedure 07/15/2021 Office Visit Psychiatry Scott Mcallister MD [address] [facility] [address] [place] [id number] [facility] Start: 05-24-2021 COVID-19 Vaccine (4 - Booster for Pfizer series) COVID-19 Vaccine (4 - Booster for Pfizer series) [facility] Start: 04-18-2021 End: 04-18-2021 Patient encounter procedure 04/18/2021 Office Visit Scott Moy MD [address] [facility] [address] [place] [id number] [facility] Start: 01-12-2021 COVID-19 Vaccine (3 - Booster for Pfizer series) COVID-19 Vaccine (3 - Booster for Pfizer series) [facility] Start: 01-03-2021 End: 01-03-2021 Patient encounter procedure [facility] Start: 12-01-2020 Influenza vaccination [facility] Start: 09-24-2020 End: 09-24-2020 Patient encounter procedure 09/24/2020 Office Visit Scott Moy MD [address] [facility] [address] [place] [address] [phone] [facility] Start: 09-14-2020 End: 09-14-2020 Patient encounter procedure 09/14/2020 Office Visit Scott Moy MD [address] [facility] [address] [place] [address] [phone] [facility] Start: 09-10-2020 End: 09-10-2020 Office Visit 09/10/2020 Office Visit Psychiatry Scott Mcallister MD [address] [place] [address] [phone] [facility] Start: 12-02-2019 Influenza vaccinatio n given Sequential Influenza Vaccine (#1) [facility] Start: 2012 Administration of he rpes zoster vaccine Zoster Vaccines (1 of 2) [facility] Start: 2012 Screening for malign ant neoplasm of colon [facility] Start: 2002 Screening for malign ant neoplasm of breast Mammogram [facility] Start: 1980 Hepatitis C antibody , confirmatory test Hepatitis C Screening [facility] Start: 1980 Hepatitis C screening Hepatitis C Sc reening [facility] Start: 1978 COVID-19 Vaccine (1 of 2) COVID-19 Vaccine (1 of 2) [facility] Start: 1977 HIV screening HIV Screening [facility] Start: 1965 History and physical examination, annual for health maintenance Wellness Visit [facility] Start: 1962 Screening for malign ant neoplasm of cervix Pap Smear [facility] Start: 1962 Screening for malign ant neoplasm of colon [facility] Start: 1962 Screening mammography Mammogram [facility] Start: 1962 Tetanus vaccination Tetanus: Every 1 0yrs [facility] Bacteria identified in Urine by Culture [facility] Work Phone: End: 10-14-2022 Complete blood count with white cell differential, manual CBC and Differential Lab Routine Bipolar 1 disorder, depressed, moderate (HCC) 1 Occurrences starting 10/14/2021 until 10/14/2022 [facility] Comment on above: 1 Occurrences starti ng 10/14/2021 until 10/14/2022 End: 10-14-2022 Comprehensive metabolic 2000 panel - Serum or Plasma Comprehensive Metabolic Panel Lab Routine Bipolar 1 disorder, depressed, moderate (HCC) 1 Occurrences starting 10/14/2021 until 10/14/2022 [facility] Work Phone: Comment on above: 1 Occurrences starti ng 10/14/2021 until 10/14/2022 End: 10-14-2022 Lipid 1996 panel - Serum or Plasma Lipid Panel Lab Routine Bipolar 1 disorder, depressed, moderate (HCC) 1 Occurrences starting 10/14/2021 until 10/14/2022 [facility] Comment on above: 1 Occurrences starti ng 10/14/2021 until 10/14/2022 Patient Education High Blood Pre ssure (DC) Urinary Tract Infection, Adult (DC) Acute Kidney Injury (DC) Cefuroxime Hydralazine [facility] Work Phone: Patient referral [facility] Work Phone: Immunizations Immunization Date Immunization Notes Care Provider Fa mendel 01-05-2022 influenza, injectabl e, quadrivalent, preservative free DO [facility] Work Phone: [facility] 03-29-2021 COVID-19 mRNA, Comirnaty (Pfizer) DO [facility] Work Phone: [facility] 07-13-2020 COVID-19 mRNA, Comirnaty (Pfizer) DO [facility] Work Phone: [facility] 06-21-2020 COVID-19 mRNA, Comirnaty (Pfizer) DO [facility] Work Phone: [facility] Payers Date Payer Category Payer Self-pay 2014 Unknown [id number] 2014 Unknown [employer] PPO [id number] 2014-Present [phone] [address] [place] [address] [id number] 1962 Unknown [id number] 1962 Unknown [id number] 1962 Unknown [id number] 1962 Unknown [id number] 1962 Unknown [id number] 1962 Unknown [id number] 1962 Unknown [id number] 1962 Unknown [id number] [id number] 1962 Unknown [id number] [id number] 1962 Unknown [id number] [id number] 1962 Unknown [id number] [id number] 1962 Unknown [id number] [id number] 1962 Unknown [id number] 1959 Unknown [id number] Unknown [id number] Social History Date Type Detail Facility Start: 04-06-2020 End: 08-21-2023 Tobacco smoking status NHIS Former smoker [facility] Start: 04-06-2020 End: 09-24-2020 Tobacco use and exposure Never used [facility] Start: 04-06-2020 End: 05-30-2022 Alcohol intake Ex-drinker (finding) [facility] Start: 1960 Sex Assigned At Not on file [facility] Exposure to SARS-CoV -2 (event) Unable to assess [facility] Start: 07-09-2021 End: 05-24-2022 Exposure to SARS-CoV-2 (event) Not sure [facility] Start: 01-03-2022 Tobacco smoking stat us NHIS Never smoked tobacco (finding) [facility] Start: 1960 Sex Assigned At Female F [facility] History of tobacco use Current smoker [facility] Start: 05-30-2022 History of [facility] Start: 05-30-2022 Tobacco use panel [facility] Tobacco smoking status Never [facility] Goals Date Patient Goal Desired Activity /State Functional Status Date Assessment Result Facility 08-21-2023 Functional Status N/A [facility] 01-05-2022 Functional status Patient at [facility] Work Phone: Mental Status Date Assessment Result Facility 01-05-2022 Cognitive function Cognitive Sta tus Patient at [facility] Work Phone: Clinical Notes 07-27-2020 to 08-21-2023 Uprani Mcallister MD - 05/30/2022 2:16 PM ESTUprani Mcallister MD - 03/13/2022 11:29 AM EST Note Date & Type Note Facility 08-21-2023 Note Chief Complaint New Pt. HPI Staff Evaluation requested by Dr Peter Arnett due to Urinary Retention. Pt is a new pt. Never before seen in our office. 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 *Oxybutynin 5mg TID & Doxazosin 2mg BID per referral papers Hx of DM Type 2 A1C 04/11/23- 5.4 CMP 05/02/23 *BUN 17 Crea 1.86 eGFR 28 RAMONA 05/04/23 *Nonobstructing Lt Kidney Stone. PVR 76ml Dysuria: no Incomplete bladder emptying: no, PVR 30mL Hematuria: no Frequency: every 3 hours Urgency: yes Nocturia: 1x Stream: good stream Post void dripping: no Wearing pads/ Depends: no Urge incontinence: yes Stress incontinence: yes Incontinence without Sensory Awareness: no Abdominal pain: no Flank pain: Pt. states occasionally kidney will feel sore History of Present Illness staff HPI reviewed and agree. Review of Systems PHQ Score Initial Depression Screen Score: 0 SCORE no fever, chills, malaise, myalgia. no rash/lesions. no chest pain, palpitations, or SOB. no abdominal pain, nausea, vomiting. no unilateral calf swelling, redness, pain Physical Exam Vitals & Measurements HR: 74(Peripheral) RR: 19 BP: 108/63 HT: 62 in HT: 158 cm WT: 88.5 kg WT: 194.7 lb BMI: 35.45 General: nontoxic, NAD Mouth: moist mucosa Lungs: normal respiratory effort Cardio: regular rate, good distal perfusion Abdomen: nondistended, no suprapubic distention or tenderness, no CVA tenderness Neurologic: Grossly normal Skin: No rashes or suspicious lesions Assessment/Plan Kathy is a 62 yo female new pt referred by Dr. Peter Arnett for urinary retention per RAMONA. Pt here with her daughter today. Pt recently broke her leg, unable to ambulate well. Hx of Type II DM. A1c 04/11/23 - 5.4. States her psychiatrist d/c'd metformin. 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 1. Kidney stones (N20.0: Calculus of kidney) RAMONA 05/04/23 [facility] - 7 mm nonobstructing L renal stone. Reviewed imaging results, has L renal stone. No indication for intervention at this time given pt currently is recovering from a broken leg. Will continue to monitor for now. Advised sx of stone passage to monitor for. Discussed stone prevention diet. -Increase clear fluid intake -Consider operative intervention in the future vs repeat imaging/monitoring 2. Mixed incontinence (N39.46: Mixed incontinence) UUI > MEDINA. BBS 17. UA today shows small leuks. Asx from UTI standpoint. Taking Oxybutynin 5mg tid per PCP. c/o severe urgency and poor bladder control despite medication and low fluid intake. Discussed tx options for bothersome urinary sx including oral medications, Botox, SNM. Medication management includes anticholinergics and beta-3 agonists. Beta-3's (Myrbetriq/Gemtesa) are often preferable due to lower side effect profile, but most insurances won't cover without trying anticholinergics first. Therefore we will start with Sanctura/trospium. I explained the most common side effects are dry mouth, dry eyes, and constipation. We discussed OTC options to help with these side effects. Pt will stop medication and call office if side effects become intolerable. We did discuss that there is a documented potential side effect of mental status changes/confusion in the elderly, but that this risk is quite low. Pt and I agree that potential benefit outweigh risk at this time. If fails second anticholinergic, we can consider Mrybetriq/Gemtesa. If fails Beta-3, we cannot get it covered, or we get it covered but it's a cost-prohibitive co-pay then we will consider next steps which could include cysto, urodynamics, Botox, SNM. -D/c Oxybutynin -Start Trospium ER 60mg qd. Rx sent to [facility]. -Increase clear fluid intake -Avoid bladder irritants 3. Chronic kidney disease (N18.9: Chronic kidney disease, unspecified) 05/02/23 - BUN 17. Cr 1.86. GFR 28. RAMONA 05/04/23 [facility] (ordered by Dr. Arnett due to decreased renal function) - PVR 76 mL. PVR today 30 mL. Reviewed PVR from RAMONA and today w/ pt. Educated pt this is not concerning value and not likely contributing to decreasing renal function. While there are no hard & fast rules, typically agreed upon PVR guidelines for adults: Less than 100 mL PVR is considered normal. Up to 200 mL PVR may be acceptable. Over 200 mL PVR indicates inadequate emptying. Over 300 mL is suggestive of urinary retention. Over 400 mL is considered urinary retention. -Pt may benefit from nephrology referral if indicated. 4. Renal cyst (N28.1: Cyst of kidney, acquired) RAMONA 05/04/23 [facility] - 1 cm benign-appearing R renal cyst and 1 cm benign-appearing L renal cyst. -Simple cysts do not require monitoring Follow-up With When Contact Information DEVEN GUTIERREZ, PRANAV Schwartz, URL [address] [place] [address] [phone] Additional Instructions: 3 mos (new med) Patient Education Urinary Incontinence Documentation recorded by the scribe Evy Gunderson accurately reflects the (more content not included)... [facility] Comment on above: Result Comment: Elec tronically Signed By: PRANAV CARVALHO PA-C\.br\Date and Time Signed: 08/21/23 16:23 EDT\.br\Electronically Co-Signed By: Evy Gunderson\.br\Date and Time Co-Signed: 08/21/23 10:37 EDT 08-21-2023 Hospital Discharge instructions Patient Education 08/21/2023 10:35:53 Urinary Incontinence Urinary Incontinence Urinary incontinence refers to a condition in which a person is unable to control where and when to pass urine. A person with this condition will urinate involuntarily. This means that the person urinates when he or she does not mean to. What are the causes? This condition may be caused by: Medicines. Infections. Constipation. Overactive bladder muscles. Weak bladder muscles. Weak pelvic floor muscles. These muscles provide support for the bladder, intestine, and, in women, the uterus. Enlarged prostate in men. The prostate is a gland near the bladder. When it gets too big, it can pinch the urethra. With the urethra blocked, the bladder can weaken and lose the ability to empty properly. Surgery. Emotional factors, such as anxiety, stress, or post-traumatic stress disorder (PTSD). Spinal cord injury, nerve injury, or other neurological conditions. Pelvic organ prolapse. This happens in women when organs move out of place and into the vagina. This movement can prevent the bladder and urethra from working properly. What increases the risk? The following factors may make you more likely to develop this condition: Age. The older you are, the higher the risk. Obesity. Being physically inactive. and childbirth. Menopause. Diseases that affect the nerves or spinal cord. Long-term, or chronic, coughing. This can increase pressure on the bladder and pelvic floor muscles. What are the signs or symptoms? Symptoms may vary depending on the type of urinary incontinence you have. They include: A sudden urge to urinate, and passing urine involuntarily before you can get to a bathroom (urge incontinence). Suddenly passing urine when doing activities that force urine to pass, such as coughing, laughing, exercising, or sneezing (stress incontinence). Needing to urinate often but urinating only a small amount, or constantly dribbling urine (overflow incontinence). Urinating because you cannot get to the bathroom in time due to a physical disability, such as arthritis or injury, or due to a communication or thinking problem, such as Alzheimer's disease (functional incontinence). How is this diagnosed? This condition may be diagnosed based on: Your medical history. A physical exam. Tests, such as: ?Urine tests. ?X-rays of your kidney and bladder. ?Ultrasound. ?CT scan. ?Cystoscopy. In this procedure, a health care provider inserts a tube with a light and camera (cystoscope) through the urethra and into the bladder to check for problems. ?Urodynamic testing. These tests assess how well the bladder, urethra, and sphincter can store and release urine. There are different types of urodynamic tests, and they vary depending on what the test is measuring. To help diagnose your condition, your health care provider may recommend that you keep a log of when you urinate and how much you urinate. How is this treated? Treatment for this condition depends on the type of incontinence that you have and its cause. Treatment may include: Lifestyle changes, such as: ?Quitting smoking. ?Maintaining a healthy weight. ?Staying active. Try to get 150 minutes of moderate-intensity exercise every week. Ask your health care provider which activities are safe for you. ?Eating a healthy diet. ?Avoid high-fat foods, like fried foods. ?Avoid refined carbohydrates like white bread and white rice. ?Limit how much alcohol and caffeine you drink. ?Increase your fiber intake. Healthy sources of fiber include beans, whole grains, and fresh fruits and vegetables. Behavioral changes, such as: ?Pelvic floor muscle exercises. ?Bladder training, such as lengthening the amount of time between bathroom breaks, or using the bathroom at regular intervals. ?Using techniques to suppress bladder urges. This can include distraction techniques or controlled breathing exercises. Medicines, such as: ?Medicines to relax the bladder muscles and prevent bladder spasms. ?Medicines to help slow or prevent the growth of a man's prostate. ?Botox injections. These can help relax the bladder muscles. Treatments, such as: ?Using pulses of electricity to help change bladder reflexes (electrical nerve stimulation). ?For women, using a front office medical assistant to prevent urine leaks. This is a small, tampon-like, disposable device that is inserted into the urethra. ?Injecting collagen or carbon beads (bulking agents) into the urinary sphincter. These can help thicken tissue and close the bladder opening. ?Surgery. Follow these instructions at home: Lifestyle Limit alcohol and caffeine. These can fill your bladder quickly and irritate it. Keep yourself clean to help prevent odors and skin damage. Ask your health care provider about special skin creams and cleansers that can protect the skin from urine. Consider wearing pads or adult diapers. Make sure to change them regularly, and always change them right after experiencing incontinence. General instructions Take [id number] and prescription medicines only as told by your health care provider. Use the bathroom about every 3 4 hours, even if you do not feel the need to urinate. Try to empty your bladder completely every time. After urinating, wait a minute. Then try to urinate again. Make sure you are in a relaxed position while urinating. If your incontinence is caused by nerve problems, keep a log of the medicines you take and the times you go to the bathroom. Keep all follow-up visits. This is important. Where to find more information [employer] [place] [employer]estive [employer] Kidney Diseases: www.niddk.nih.gov [place] [employer]: www.urologyhealth.org Contact a health care provider if: You have pain that gets worse. Your incontinence gets worse. Get help right away if: You have a fever or chills. You are unable to urinate. You have redness in your groin area or down your legs. Summary Urinary incontinence refers to a condition in which a person is unable to control where and when to pass urine. This condition may be caused by medicines, infection, weak bladder muscles, weak pelvic floor muscles, enlargement of the prostate (in men), or surgery. Factors such as older age, obesity, and childbirth, menopause, neurological diseases, and chronic coughing may increase your risk for developing this condition. Types of urinary incontinence include urge incontinence, stress incontinence, overflow incontinence, and functional incontinence. This condition is usually treated first with lifestyle and behavioral changes, such as quitting smoking, eating a healthier diet, and doing regular pelvic floor exercises. Other treatment options include medicines, bulking agents, medical devices, electrical nerve stimulation, or surgery. This information is not intended to replace advice given to you by your health care provider. Make sure you discuss any questions you have with your health care provider. Document Revised: 10/22/2020 Document Reviewed: 10/22/2020 nodila Patient Education 2022 [employer] Follow Up Care 05/07/2023 11:41:01 With:PRANAV CARVALHO PA-C, URL Address: [address] [place] [address] [phone] When: Unknown Comments:3 mos (new med) [facility] 05-30-2022 History of Present illness Narrative BEHAVIORAL HEALTH PSYCHIATRIC PROGRESS NOTE [...] Continue with same provider ( Rocky @ [facility] in [place]) Follow up as scheduled or return early if needed. School or community referral: None Treatment Goals and Objectives discussed. Other Referrals/Consults/Psychological Testing: None Scott Mcallister documented in this encounter [facility] 03-13-2022 History of Present illness Narrative BEHAVIORAL HEALTH PSYCHIATRIC PROGRESS NOTE [...] Continue with same provider ( Rocky @ [facility] in [place]) Follow up as scheduled or return early if needed. School or community referral: None Treatment Goals and Objectives discussed. Other Referrals/Consults/Psychological Testing: None Scott Mcallister documented in this encounter [facility] 01-05-2022 Discharge summary Note Date/Time January 05, 2022 12:08pm [facility] [address] [place] [address] Discharge Summary Signed Patient: Kathy Porter MR#: [id number] : 1960 Acct:[id number] Age/Sex: 61 / F Adm Date: 2 Loc: Room: [address] [place] [address]: Henry Burnett MD Copies to: MD Henry Silver MD~ Providers Date of Discharge: 01/05/22 Discharging Provider: Henry Burnett Primary Care Provider: Peter Arnett Consults: 01/03/22 17:38 Consult to Psychiatry [...] % (Auto) 50.3, Lymph % (Auto) 33.1, [place] % (Auto) 12.5, Eos % (Auto) 3.5, Baso % (Auto) 0.6, Neut # (Auto) 2.6, Lymph # (Auto) 1.7, [place] # (Auto) 0.7, Eos # (Auto) 0.2, [...] TID Follow Up: Dr. Scott Mcallister [Other] Peter Arnett MD [Primary Care Provider] - 01/09/22 3:30 pm (You have been scheduled for a follow up appointment for the following date and time, please call to reschedule if needed.) Documented By: Henry Burnett MD 01/05/22 12 02 Signed By: <Electronically signed by Henry Burnett MD> 01/05/22 1203 [facility] Work Phone: 1(910) 122-634710-05-2022 Progress note Author Henry Burnett [facility] January 04, 2022 4:20pm Note Date/Time January 04, 2022 4: 20pm [facility] [address] [place] [address] Hospitalist Progress Note Signed Patient: Kathy Porter MR#: [id number] : 1960 Acct:[id number] Age/Sex: 61 / F Adm Date: 2 Loc: 3T Room: [address] [place] [address] Type: ADM INOo Attending Dr: Henry Burnett [...] Objective Lab Results CBC & Chem 7: 01/04/22 06:10 01/04/22 06:10 Microbiology Results Microbiology 01/03/22 [...] gm in 50 mls @ 100 mls/hr 10/04/22 17:30 01/03/22 21:49 Rocephin IV Infused Q24H CARMELO Infusion Influenza Virus Vaccine Quadrival 0.5 ml 01/04/22 18:33 Flu Vac Quad (36month+)Pf 0.5 Ml Syringe [id number] IM 01/04/22 18:34 .ONCE ONE Irbesartan 300 [...] 01/04/22 09:00 01/04/22 09:41 Omeprazole 20 Mg Capsule. PO 01/04/23 08:59 20 mg DAILY CARMELO [...] <Electronically signed by Henry Burnett MD> 01/04/22 4623 [facility] Work Phone: [phone]) 750-612010-05-2022 Consult note Author Graham Helm [facility] January 04, 2022 2:08pm Note Date/Time January 04, 2022 2: 04pm [facility] [address] [place] [address] Psychiatry Consult Note Signed Patient: Kathy Porter MR#: [id number] : 1960 Acct:[id number] Age/Sex: 61 / F Adm Date: 2 Loc: Room: [address] [place] [address] Type : ADM INOo Attending Dr: Henry Burnett MD Copies to: MD Peter Painting MD Obaydah M Daromar, MD~ HPI Consult Date: 01/04/22 Requesting Physician: Henry Burnett MD Primary Care Provider: Peter Arnett MD Consult Narrative Reason for consult: confusion, med rec HPI: Ms. Portre is a 61 year old female who [...] stated that she sees a psychiatrist in [place]. She reported that he is helping her [...] Appearance Clear Urine pH 5.5 Ur Specific [place] 1.012 Urine Protein Negative Urine Glucose (UA) [...] Color Urine Appearance Urine pH Ur Specific [place] Urine Protein Urine Glucose (UA) Urine Ketones Urine Occult Blood Urine Nitrite Ur Leukocyte Esterase Urine RBC Urine WBC Valproic Acid 59.0 01/04/22 10:13 RBC Hgb Hct MCV MCH MCHC RDW Plt Count MPV Sodium Potassium Chloride Carbon Dioxide Anion Gap BUN Creatinine Calcium Total Bilirubin AST ALT Alkaline Phosphatase Total Protein Albumin Urine Color Urine Appearance Urine pH Ur Specific [place] Urine Protein Urine Glucose (UA) Urine Ketones [...] follow peripherally Documented By: Graham Helm MD 01/04/22 140 Signed By: <Electronically signed by Graham Hlem MD> 01/04/22 8717 [facility] Work Phone: 1([phone] 139-863410-04-2022 History and physical note Author Henry Burnett [facility] January 03, 2022 6:58pm Note Date/Time January 03, 2022 4: 55pm [facility] [address] [place] [address] Hospitalist H&P Signed Patient: Kathy Porter MR#: [id number] : 1960 Acct:[id number] Age/Sex: 61 / F Adm Date: 2 Loc: Room: [address] [place] [address] Type: ADM INOo Attending Dr: Henry Burnett [...] 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 Decision was to admit the patient [...] % (Auto) 22.3 % (.) 01/03/22 14:35 Searcy % (Auto) 8.9 % (.) 01/03/22 14:35 Eos % (Auto) 1.4 % (.) 01/03/22 14:35 Baso % (Auto) 0.6 % (.) 01/03/22 14:35 Neut # (Auto) 4.3 x10E3/uL (1.8-7.7) 01/03/22 14:35 Lymph # (Auto) 1.4 x10E3/uL (1.00-4.8) 01/03/22 14:35 Searcy # (Auto) 0.6 x10E3/uL (0.0-0.8) 01/03/22 14:35 [...] pH 5.5 (5.0-9.0) 01/03/22 14:20 Ur Specific [place] 1.012 (1.001-1.030) 01/03/22 14:20 Urine Protein Negative [...] <Electronically signed by Henry Burnett MD> 01/03/22 7844 [facility] Work Phone: 1(303) 881-444007-15-2022 History of Present illness Narrative* Scott Mcallister [...] Continue with same provider ( Rocky @ [facility] in [place]) Follow up as scheduled or return early if needed. School or community referral: None Treatment Goals and Objectives discussed. Other Referrals/Consults/Psychological Testing: None Scott Mcallister documented in this [id number] History of Present illness Narrative* Scott Mcallister [...] Continue with same provider ( Rocky @ [facility] in [place]) Follow up as scheduled or return early if needed. School or community referral: None Treatment Goals and Objectives discussed. Other Referrals/Consults/Psychological Testing: None Scott Mcallister documented in this [id number] Miscellaneous Notes* Telephone Encounter - Sarah Leigh MA - 05/16/2021 11:04 AM EST Pt is completely out and wants a 30 day supply sent to the local pharmacy. Another refill encounterto follow with a 90 day supply to go to [facility]. documented in this [id number] History of Present illness Narrative* Scott Mcallister [...] the patient Scott Mcallister documented in this [id number] History of Present illness Narrative* Scott Mcallister MD - 07/27/2020 2:43 PM EDT Telephone Visit Via Phone Call [facility] [phone] Telephone Visit [facility] 07/27/2020 Scott Mcallister MD Provider Location: [facility] Patient Location Teaching Supervisor: None Patient Location: Patient's Home Patient: Kathy Porter Date of : 1960 (59 y.o. female) PCP: Peter Arnett MD I discussed risks, benefits and [...] there are inherent diagnostic limitations compared to ajnf-md-ihov evaluations. We elected toproceed with the telephone [...] Plan of Care. documented in [facility] + [facility] note Future Appointments Appointment Date:11/27/2023 03:00:00 PM Scheduled Provider:PRANAV CARVALHO PA-C Location:[facility] Appointment Type:URO Office Visit [facility] evaluation note* Diagnosis Bipolar 1 disorder, depressed, mild [...] Altered mental status acute Coarse tremors acute [facility] Work Phone: Evaluation note* Diagnosis Onset Date Resolution Status Acute encephalopathy acute NAEEM (acute kidney injury) ac jessica Altered mental status acute Coarse tremors acute Hypertensive urgency acute UTI (urinary tract infection) acute [facility] Work Phone: Evaluation note* Diagnosis Bipolar 1 [...] Generalized anxiety disorder [facility] N[facility] No data available for this section [facility] Hospital Discharge instructions Additional Instructions -Take Ceftin antibiotics treatment for UTI for 5 more days -Take new blood pressure medicine Hydralazine 25 mg three times a day. Hold if your BP <100/60 -Follow up with your primary doctor for blood pressure control and adjustment in medications if needed -[facility]: Progress note No data available for this section [facility] History of Present Illness * Scott Mcallister MD - 04/09/2020 2:42 PM EST Telephone Visit Via Phone Call [facility] Jovana PRABHAKAR [facility] [phone] Telephone Visit [facility] 04/06/2020 Scott Mcallister MD Provider Location: [place] Patient Location Teaching Supervisor: None Patient Location: Patient's Home Patient: Kathy Porter Date of : 1960 (59 y.o. female) PCP: Peter Arnett MD I discussed risks, benefits and [...] there are inherent diagnostic limitations compared to usxm-ha-rrat evaluations. 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 Expl anation Advance Directives and Living Will Advance Directive Response Recorded Date/ Time Advance Directives No January 03, 2022 3:21pm Chief Complaint and Reason for Visit Chief Complaint Altered / Change Men deanna Status Reason for Visit Acute encephalopathy Altered mental status Coarse tremors Chief Complaint Altered / Change Men deanna Status Reason for Visit Acute encephalopathy NAEEM (acute kidney injury) Altered mental status Coarse tremors Hypertensive urgency UTI (urinary tract infection) Summary Purpose Family History No Family History Records FoundNo Family History Records FoundNo Family History Records Found No data available for this section No Family History Records Found Additional Source Comments Reason for Visit (unrecogniz ed section and content) Reason Comments Medication Management Reason Comments Anxiety Bipolar Reason Onset Date Comments Medication Refill 08/31/2020 Reason Onset Date Comments Medication Refill 12/07/2020 Reason Onset Date Comments Medication Refill 03/29/2021 Reason Onset Date Comments Medication Refill 05/16/2021 Reason Onset Date Comments Medication Refill 03/30/2022 Reason Onset Date Comments Medication Refill 05/10/2022 Care Teams (unrecognized sec tion and content) Analytics Intern Relationship Specialty Start Date End Date Peter Arnett MD [address] [place] [address] PCP - General Family Medicine 04/05/20 Analytics Intern Relationship Specialty Start Date End Date Peter Arnett MD [address] [place] [address] PCP - General Family Medicine 04/05/20 Analytics Intern Relationship Specialty Start Date End Date Peter Arnett MD [address] [place] [address] PCP - General Family Medicine 04/05/20 Analytics Intern Relationship Specialty Start Date End Date Peter Arnett MD [address] [place] [address] PCP - General Family Medicine 04/05/20 Analytics Intern Relationship Specialty Start Date End Date Peter Arnett MD [address] [place] [address] PCP - General Family Medicine 04/05/20 Team Status: Active Member Role Status Dates Justin Francisco DO Emergency Provider Active Peter Arnett MD Primary Care Provider Active Henry Burnett MD Admit Provider, Attending Provi nimisha Active Team Status: Active Member Role Status Dates Peter Arnett MD Primary Care Provider Active Team Status: Inactive Member Role Status Dates Justin Francisco DO Emergency Provider Active Peter Arnett MD Primary Care Provider Active Henry Burnett MD Admit Provider, Attending Provi nimisha Active Graham Helm MD Other Provider Active Analytics Intern Relationship Specialty Start Date End Date Peter Arnett MD [address] [facility] [id number] PCP - General Family Medicine 04/05/20 Analytics Intern Relationship Specialty Start Date End Date Peter Arnett MD [address] [place] [id number] PCP - General Family Medicine 04/05/20 Analytics Intern Relationship Specialty Start Date End Date Peter Arnett MD [address] [facility] [id number] PCP - General Family Medicine 04/05/20 Analytics Intern Relationship Specialty Start Date End Date Peter Arnett MD [address] [facility] [id number] PCP - General Family Medicine 04/05/20 Goals (unrecognized section and content) Goals may be documented in a n alternate section No data available for this section INFORMATION SOURCE (unrecogn ized section and content) DATE CREATED AUTHOR 01/23/2022 [facility] DATE CREATED AUTHOR AUTHOR'S ORGANIZ ATION 05/06/2022 [facility] DATE CREATED AUTHOR AUTHOR'S ORGANIZ ATION 06/01/2022 [facility] DATE CREATED AUTHOR AUTHOR'S ORGANIZ ATION 08/30/2023 [facility] FOR RECORDS PERTAINING TO PATIENTS WHO ARE [...] BE BASED ON THE PRIMARY CLINICAL RECORDS. [facility] [employer] [facility]. provides no warranty or guarantee of the accuracy or completeness of information in this document.
== END 2023-09-03 12:09 | disposition home or self-care (01) ==
LOC: EC 12:08
PROVIDERS: PCP Family Medicine; Visit Provider Orthopaedic Surgery
DX: S82.141D Displaced bicondylar fracture of right tibia, subsequent encounter for closed fracture with routine healing (principal); M25.461 Effusion, right knee
CPT/HCPCS: 73560

== ENCOUNTER 2023-12-10 09:00 | Outpatient (OUT) | payer OTHER, SELFPAY ==
--- NOTE | 2023-12-10 | XR_ITS ---
[address] [address] Patient Name: KATHY PORTER MRN: [id number] date: 1960 Sex: F Assigned Patient Location: Current Patient Location: Accession/Order Number: [id number] Exam Date: 12/10/2023 09:01 Report Date: 12/11/2023 22:16 At the request of: DESIRE DEGROOT Procedure: XR knee RT 2V EXAM: XR KNEE RT 2V HISTORY: RIGHT KNEE PAIN COMPARISON: 09/03/2023. FINDINGS/IMPRESSION: 1. Previously seen tibial plateau fracture line is not well seen, there is some sclerosis along the tibial plateau, suggesting healing. 2. No other acute fracture. 3. No knee joint effusion. 4. Normal alignment of the right knee joint. Electronically authenticated by: POPEYE CHOU Date: 12/11/2023 22:16
== END 2023-12-10 09:01 | disposition home or self-care (01) ==
LOC: EC 09:00
PROVIDERS: PCP Family Medicine; Visit Provider Orthopaedic Surgery
DX: S82.141D Displaced bicondylar fracture of right tibia, subsequent encounter for closed fracture with routine healing (principal)
CPT/HCPCS: 73560

== ENCOUNTER 2024-04-30 16:56 | Outpatient (OUT) | payer OTHER, SELFPAY ==
--- OUTSIDE RECORDS SUMMARY | 2024-04-30 17:04 | XMS_ITS | CCD ---
Author Organization [facility] CliniSymo Care Team Providers Care Material Mover Name Role Phone Peter Arnett Primary Care Provider DO Justin Francisco Emergency Provider MD Peter Arnett Primary Care Provider [phone] MD Henry Burnett Admit Provider [phone] MD Henry Burnett Attending Provider [phone] MD Graham Helm Other Provider [phone] PETER ARNETT Admitting Unavailable DR PETER ARNETT Attending Unavailable DR PETER ARNETT Primary Care Unavailable DR PETER ARNETT Consulting Unavailable GEHLOT, UPENDER Admitting Unavailable GEHLOT, UPENDER Attending Unavailable DR PETER ARNETT Primary Care Unavailable GEHLOT, UPENDER Consulting Unavailable GEHLOT, UPENDER Admitting Unavailable GEHLOT, UPENDER Attending Unavailable DR PETER ARNETT Primary Care Unavailable GEHLOT, UPENDER Consulting Unavailable DR PETER ARNETT Admitting Unavailable DR PETER ARNETT Attending Unavailable DR PETER ARNETT Primary Care Unavailable DR PETER ARNETT Consulting Unavailable EMMA, DR DANII Gottlieb Consulting Unavailable Peter Arnett MD Primary Care [...] Care Unavailable PETER ARNETT Primary Care Unavailable NELLIE SUMNER Attending Unavailable GEHLOT, UPENDER Attending Unavailable PETER ARNETT Primary Care Unavailable PETER ARNETT Primary Care Unavailable SCOTT MCALLISTER Attending Unavailable Peter Arnett Primary Care Physician DESIRE DEGROOT Referring Unavailable PETER ARNETT M Primary Care Unavailable MIKAYLA HENNY Referring Unavailable ANEUDYY, PETER M Primary Care Unavailable DEGROOTDESIRE CORREA Referring Unavailable SOHAIL, PETER M Primary Care Unavailable DESIRE DEGROOT Referring Unavailable SOHAIL, PETER M Primary Care Unavailable Peter Arnett Referring Unavailable MATT CARVALHO Attending Unavailab MATT Bueno Attending Unavailab beronica Moss MD, Valerie Unavailable Peter Arnett MD Primary Care Provider [phone] ANGELO DE LA CRUZ Attending Unavailable VALERIE MOSS Referring Unavailable ANGELO DE LA CRUZ Attending Unavailable LILIBETH PENA Attending Unavailable Peter Arnett MD Primary Care Provider [phone] Allergies Allergy Classification Reported Allergen(s) Allergy Type Date of Onset Reaction(s) Facility Sulfonamides (antibiotic) (3 sources) Sulfonamides (Antibiotic) Drug Allergy 2 Rash, Swelling [facility] (17 sources) Sulfonamides (Antibiotic); Translations: [Sulfa (Sulfonamide Antibiotics)] Propensity to adverse reactions to drug 2 Rash, Swelling [facility] (1 source) Sulfonamides (Antibiotic) Drug allergy (disorder) 3 [facility] (3 sources) Sulfonamides (Antibiotic); Translations: [sulfa drugs] Drug allergy Cutaneous eruption (morphologic abnormality) [facility] (7 sources) Sulfonamides (Antibiotic) Drug Intolerance 2 Rash, Swelling [facility] Healthcare Work Phone: Medications Current Medications Medication Drug Class(es) Dates Sig (Normalized) Sig (Original) amLODIPine 10 mg oral tablet (20 sources) Dihydropyridine Calcium Channel Dimple Start: 10-02-2019 take 1 tablet by mouth once daily Norvasc 10 mg Tab 10 mg = 1 tab(s), Oral, Daily, Refills(s) 0 Start Date: 10/02/19 Status: Ordered B-12 (2 sources) Start: 08-21-2023 B-12 Start Date: 08/21/23 Status: Ordered 24 hr buPROPion hydrochloride 300 mg extended release oral tablet (20 sources) Aminoketone Start: 01-03-2022 take 150 mg by mouth once daily after lunch Bupropion Hcl Active 150 MG PO Daily after lunch January 03, 2022 12:00am Start: 01-03-2021 End: 01-12-2022 take 1 tablet [...] 0 09/24/2020 12/23/2020 Active Start: 01-07-2020 End: 11-27-2023 take 1 tablet by mouth once daily in the morning buPROPion (WELLBUTRIN XL) 300 MG 24 hr tablet Take 1 (one) tablet (300 mg total) by mouth every morning . 90 tablet 3 11/27/2023 Active take [address]ne th once daily buPROPion XL (Forfivo XL) 450 MG 24 hr tablet Take 450 mg by mouth Daily Do not crush, chew, or split. Active End: 04-06-2020 take 1 tablet by mouth once daily buPROPion (Wellbutrin SR) 150 MG 12 hr tablet Take 150 mg by mouth daily in the afternoon . 0 04/06/2020 Discontinued (Error) cefuroxime 250 mg oral tablet (1 source) Cephalosporin Antibacterial Start: 01-05-2022 take 250 mg by mouth twice daily Cefuroxime Axetil Active 250 MG PO Twice daily 10 January 05, 2022 12:00am cholecalciferol 0.025 mg oral capsule (18 sources) Vitamin D Start: 01-03-2022 End: 01-03-2022 take 1 capsule by mouth once daily Cholecalciferol (Vitamin D3) (Vitamin D3) 25 mcg (1,000 unit) Capsule Active 25 MCG PO Daily January 03, 2022 12:00am Start: 03-23-2021 cholecalcifero l, vitamin D3, 50 mcg (2,000 unit) cap 03/23/2021 Active take 1 tablet by wayne th once daily cholecalciferol (Vitamin D-3) 50 MCG (2000 UT) tablet Take 2,000 Units by mouth Daily Active clonazePAM 0.5 mg oral tablet (20 sources) Benzodiazepine Start: 08-16-2023 ClonazePAM 0.5 mg Tab 180 tab(s), 0 Refill(s), Refills(s) 0 Start Date: 08/16/23 Status: Ordered Start: 01-09-2022 End: 08-28-2022 ClonazePAM 0.5 mg Tab 180 ta b(s), 0 Refill(s), Refills(s) 0 Start Date: 08/16/23 Status: Ordered Start: 01-03-2022 take 0.5 mg by mouth [...] 180 tablet 0 10/14/2021 01/12/2022 Active Start: 12-15-2019 End: 10-17-2021 take 1 tablet by mouth three times daily as needed for anxiety clonazePAM (KLONOPIN) 0.5 MG tablet Indications: Insomnia due to mental disorder , VICKIE (generalized anxiety disorder) Take 1 (one) tablet (0.5 mg total) by mouth 3 (three) times a day NEEDED FOR ANXIETY . 270 tablet 0 07/19/2021 10/14/2021 Discontinued (Reorder) doxazosin 2 mg oral tablet (20 sources) alpha-Adrenergic Dimple Start: 10-02-2019 doxazosin 2 mg Tab Refills(s) 0 Start Date: 10/02/19 Status: Ordered eluxadoline 100 mg oral tablet (18 sources) mu-Opioid Receptor Agonist Start: 01-03-2022 take 1 tablet by mouth at mealtime Eluxadoline (Viberzi) 100 mg Tablet Active 100 MG PO Bedtime January 03, 2022 12:00am must administer with a meal/food hydrALAZINE hydrochloride 25 mg oral tablet (10 sources) Arteriolar Vasodilator Start: 01-05-2022 irbesartan 300 mg oral tablet (20 sources) Angiotensin 2 Receptor Dimple Start: 10-02-2019 irbesartan 300 mg Tab Refills(s) 0 Start Date: 10/02/19 Status: Ordered metFORMIN hydrochloride 1000 mg oral tablet (18 sources) Biguanide Start: 01-26-2016 take 1 tablet by mouth twice daily at mealtime metFORMIN (GLUCOPHAGE) 1000 MG tablet Take 1 (one) tablet (1,000 mg total) by mouth 2 (two) times a day with meals . 01/26/2016 Active metoprolol tartrate 100 mg oral tablet (20 sources) beta-Adrenergic Dimple Start: 01-03-2022 take 100 mg by mouth every twelve hours Metoprolol Tartrate Active 100 MG PO Q12H January 03, 2022 12:00am Start: 02-06-2020 take 1 tablet by wayne th twice daily metoprolol tartrate (LOPRESSOR) 100 MG tablet Take 1 (one) tablet (100 mg total) by mouth 2 (two) times a day . 02/06/2020 Active Start: 08-25-2018 take 1 tablet by wayne th twice daily metoprolol 100 mg ER Tab 100 mg = 1 tab(s), Oral, BID, Refills(s) 0 Start Date: 08/25/18 Status: Ordered take 1 tablet by wayne th once daily metoprolol succinate XL (Toprol-XL) 100 MG 24 hr tablet Take 100 mg by mouth Daily Do not crush or chew. Active OLANZapine 15 mg oral tablet (9 sources) Atypical Antipsychotic Start: 05-30-2022 take 1 [...] Pharmacy)) oxybutynin chloride 5 mg oral tablet (18 sources) Cholinergic Muscarinic Antagonist Start: 03-16-2020 End: 01-05-2022 take 1 tablet by mouth three times daily oxybutynin (DITROPAN) 5 MG tablet Take 1 (one) tablet (5 mg total) by mouth 3 (three) times a day . 03/16/2020 Active pantoprazole 40 mg delayed release oral tablet (20 sources) Proton Pump Inhibitor Start: 08-16-2023 Start: 01-26-2016 take 1 tablet by wayne th once daily pantoprazole (PROTONIX) 40 MG tablet Take 1 (one) tablet (40 mg total) by mouth once daily . 01/26/2016 Active simvastatin 10 mg oral tablet (20 sources) HMG-CoA Reductase Inhibitor Start: 01-25-2020 simvastatin 10 mg Ta b 90 tab(s), 0 Refill(s), Refills(s) 0 Start Date: 08/16/23 Status: Ordered SUMAtriptan 100 mg oral tablet (10 sources) Serotonin-1b and Serotonin-1d Receptor Agonist Start: 11-25-2020 SUMAtriptan (IMITREX ) 100 MG tablet PRN per . 11/25/2020 Active Start: 11-25-2020 SUMAtriptan (I MITREX) 100 MG tablet 24 hr trospium chloride 60 mg extended release oral capsule (9 sources) Cholinergic Muscarinic Antagonist Start: 11-27-2023 take 1 capsule by mouth once daily in the morning trospium 60 mg oral capsule, extended release 60 mg = 1 cap(s), Oral, qAM, # 90 cap(s), Refills(s) 3, Pharmacy: [facility], 158, cm, 11/27/23 15:03:00 EDT, Height/Length Dosing, 88, kg, 11/27/23 15:03:00 EDT, Weight Dosing Start Date: 11/27/23 Status: Ordered Start: 08-21-2023 take 1 capsule by mo [facility] once daily in the morning trospium 60 mg oral capsule, extended release 60 mg = 1 cap(s), Oral, qAM, # 30 cap(s), Refills(s) 11, Pharmacy: [facility]/pharmacy #[id number], 158, cm, 08/21/23 10:13:00 EDT, Height/Length Dosing, 88.5, kg, 08/21/23 10:13:00 EDT, Weight Dosing Start Date: 08/21/23 Status: Ordered take 3 tablets by [facility] once daily trospium (Sanctura) 20 MG tablet Take 60 mg by mouth Daily Active divalproex sodium 500 mg delayed release oral [...] 90 tablet 0 10/14/2021 Active Vitamin D (2 sources) Start: 08-21-2023 Vitamin D Inte rnational_Unit, Oral Start Date: 08/21/23 Status: Ordered Completed/Discontinued Medications Medication Drug Class(es) Dates Sig (Normalized) Sig (Original) risperiDONE 3 mg oral tablet (16 sources) [...] End: 04-06-2020 take 0.5 tablet by mouth once daily at bedtime traZODONE 100 mg Tab See Instructions, 1/2 tab(s) Oral Once a day (at bedtime), # 45 tab(s), Refills(s) 1, Pharmacy: [facility], 158, cm, 12/15/19 14:46:00 EDT, Height/Length Dosing, 73.3, kg, 12/15/19 14:46:00 EDT, Weight Dosing Start Date: 12/15/19 Status: Ordered zolpidem tartrate 5 mg oral tablet (19 [...] 04-06-2020 04-06-2020 Chronic Calculus of urinary tract (4 sources) Kidney stone; Translations: [Calculus of kidney] Onset: 08-21-2023 Episodic Chronic kidney disease (3 sources) Chronic kidney disease; Translations: [Chronic kidney disease, unspecified] Onset: 07-18-2019 Chronic Diabetes mellitus without complication (2 sources) Type 2 diabetes mellitus 10-14-2018 Chronic Disorders of lipid metabolism (2 sources) Hyperlipidemia Onset: 07-18-2019 08-16-2023 Chronic Essential hypertension (2 sources) Hypertensive disorder 10-14-2018 Chronic Fracture of lower limb (3 sources) Displaced bicondylar fracture of right tibia, initial encounter for closed fracture; Translations: [Displaced bicondylar fracture of right tibia, initial encounter for closed fracture] Onset: 09-28-2023 Episodic Genitourinary symptoms and ill-defined conditions (4 sources) Mixed incontinence; Translations: [Incontinence] Onset: 08-21-2023 [...] [Bipolar disorder, current episode depressed, mild] Onset: 01-18-2016 Resolved: 08-25-2018 04-06-2020 Chronic Other diseases of kidney and ureters (2 sources) Acquired renal cyst without neoplastic change; Translations: [Cyst of kidney, acquired] Onset: 08-21-2023 Episodic Other diseases of kidney and ureters (2 sources) Cyst of kidney 08-21-2023 Episodic Other ear and sense organ disorders (1 source) Sensorineural hearing loss, bilateral; Translations: [Sensorineural hearing loss, bilateral] 02-12-2024 Chronic Other ear and sense organ disorders (2 sources) Sudden hearing loss; Translations: [Sudden idiopathic hearing loss, right ear] 02-12-2024 Episodic Other ear and sense organ disorders (1 source) Ear pressure sensation; Translations: [Other specified disorders of right ear] 02-12-2024 Episodic Other hereditary and degenerative nervous system conditions (2 sources) Coarse tremor; Translations: [Other specified forms of tremor] 01-03-2022 Chronic Other hereditary and degenerative nervous system conditions (2 sources) Other specified forms of tremor; Translations: [Abnormal involuntary movements] 01-03-2022 Chronic Other injuries and conditions due to external causes (4 sources) Foreign body in right ear; Translations: [Foreign body in right ear, initial encounter] 02-05-2024 Episodic Other nervous system disorders (2 sources) Disorder [...] lumbar region; Translations: [RADICULOPATHY LUMBAR REGION] Onset: 10-21-2022 Episodic Unclassified (1 source) Encephalopathy, unspecified; Translations: [...] Test Name Value Interpretation Reference Range Facility Auditory function testson Right Ear: Mild to moderate sensorineural hearing loss above 500 Hz Left Ear: Mild sensorineural hearing loss from 1K Hz - 3K Hz rising to normal hearing at 4K Hz. Mild sensorineural hearing loss above 4K Hz [facility] Ambulatory Visit Summaryon 0 11-27-2023 Ambulatory Visit Summary Ambulatory Visit Summary KATHY PORTER Fam :1960 Visit Date:11/27/2023 Ambulatory Visit Instructions Your Diagnosis Mixed incontinence Kidney stones Chronic kidney disease Renal cyst Your Care Team Attending Physician - OXANA CARVALHO PA-C Primary Care Physician - Peter Arnett MD This Is Your Medications List trospium (trospium 60 mg oral capsule, extended release) Contact prescribing physician if questions or concerns amlodipine (Norvasc 10 mg Tab) buPROPion (Wellbutrin XL 300 mg/24 hours Tab-ER) clonazepam (ClonazePAM 0.5 mg Tab) clonazepam (Klonopin 0.5 mg Tab) cyanocobalamin (B-12) doxazosin (doxazosin 2 mg Tab) ergocalciferol (Vitamin D) hydrALAZINE (hydrALAZINE 25 mg Tab) irbesartan (irbesartan 300 mg Tab) metoprolol (metoprolol 100 mg ER Tab) pantoprazole (Pantoprazole [address] Tab) simvastatin (simvastatin 10 mg Tab) trazodone (traZODONE 100 mg Tab) Procedures Performed Kidney Blockage Surgical Procedure (2002), Cholecystectomy (1997), Labia, Pilar cyst, Urethra. Discharge Vitals Heart Rate (Peripheral) 66 Blood Pressure 144/96 Height 158 cm Height 62 in Weight 88 kg Weight 193.6 lb BMI 35.25 What to do next You Need to Schedule the Following Appointments Follow Up with DEVEN GUTIERREZ, MARLENE BACON When: Comments: 1 year f/up Where: [address] [place] [address] Medications What How Much When Instructions Unchanged trospium (trospium 60 mg oral capsule, extended release) 1 Capsules By Mouth Once a day (in the morning) Pickup at [facility] Unchanged amlodipine (Norvasc 10 mg Tab) 1 [...] 100 mg Tab) See instructions 1/ 2 tab(s) Oral Once a day (at bedtime) Contact prescribing physician if questions or concerns Pharmacy Information [facility]: [address] [place], [place] [id number] [phone] Allergies sulfa drugs (Rash) Problems Ongoing - Any problem that you are currently receiving treatment for. 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 Bipolar disorder, current episode mixed Patient Survey You may receive a survey via text or e-mail asking about your office visit. Please share your experience with us by completing your survey. We appreciate your feedback and thank you for choosing us for your care. Education Materials Urinary Incontinence Urinary incontinence refers to a [...] bladder can weaken and lose the ability (more content not included)... Normal [facility] Urology Office/Clinic Noteon 11-27-2023 Urology Office/Clinic Note Urology Office/Clinic Note Chief Complaint 3 mth f/u, med check HPI Staff 62 year old female patient presents today for a 3 month follow up for med check. Previous Dx: kidney stones, mixed incontinence, CKD, renal cyst. *Trospium R 60 mg qd prescribed last OV. Takes doxazosin 2mg bid. pt states she ran out of the trospium and was told to stop the doxazosin. Dysuria: no Incomplete bladder emptying: no Hematuria: no Frequency: q2-3hrs Urgency: yes Nocturia: 2x Stream: strong Leaking: no Post void dripping: no Wearing pads/ Depends: no Urge incontinence: yes Stress incontinence: yes Incontinence without Sensory Awareness:no Abdominal pain: no Flank pain:no Sexual complaints: History of Present Illness Tests reviewed: reviewed UA I have reviewed the previous health record information and history for this patient from ABIOLA Galaviz. I have reviewed and verified the staff HPI to be accurate for this encounter. Review of Systems PHQ Score Initial Depression Screen Score: 0 SCORE No fever, chills, malaise, myalgia. No rash/lesions. No chest pain, palpitations, or SOB. No abdominal pain, nausea, vomiting. No unilateral calf swelling, redness, pain Physical Exam Vitals & Measurements HR: 66(Peripheral) BP: 144/96 HT: 62 in HT: 158 cm WT: 88 kg WT: 193.6 lb BMI: 35.25 General: nontoxic, NAD Mouth: moist mucosa Lungs: normal respiratory effort Cardio: regular rate, good distal perfusion Abdomen: nondistended, no suprapubic distention or tenderness, no CVA tenderness Neurologic: Grossly normal Skin: No rashes or suspicious lesions Assessment/Plan Hx of Type II DM. A1c 04/11/23 - 5.4. States her psychiatrist d/c'd metformin. 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 1. Mixed incontinence (N39.46: Mixed incontinence) UUI > MEDINA. Discussed tx options for bothersome urinary sx including oral medications, Botox, SNM. BBS 18 (17). Pt unable to provide urine sample today. Pt was started on Trospium ER 60mg daily at last OV. She ran out of refills recently but states sxs have improved while on it. No bothersome side effects. Would like to resume med. Instructed pt that after restarting trospium after a few weeks to return to the office for a PVR to ensure it's not causing retention. Pt inquired about why we called Dr. Arnett's office to have him d/c the pt off doxasozin, instructed pt that we do not have any record of doing that. We did not prescribe that medication in the first place, so I would certainly not call his office to tell him to dc it. My ov note from last visit did have her stopping the oxybutynin, since we were switching to trospium. But nothing about Doxazosin. Pt voices understanding. -Cont Trospium ER 60mg daily, refills sent to [facility] -PVR in 2-3 weeks after restarting trospium -Increase clear fluid intake -Avoid bladder irritants -1 year f/up Ordered: E&M of Est. Patient Moderate 30-39 Min 25105 2. Kidney stones (N20.0: Calculus of kidney) RAMONA [...] operative intervention in the future vs repeat imaging/monitoring. KUB for next ov. Ordered: E&M of Est. Patient Moderate 30-39 Min 27962 3. Renal cyst (N28.1: Cyst of kidney, acquired) RAMONA 05/04/23 [facility] - 1 cm benign-appearing R renal cyst and 1 cm benign-appearing L renal cyst. -Simple cysts do not require monitoring Ordered: E&M of Est. Patient Moderate 30-39 Min 32072 Orders: trospium, 60 mg = 1 cap(s), Oral, qAM, # 90 cap(s), Refills(s) 3, Pharmacy: [facility], 158, cm, 11/27/23 15:03:00 EDT, Height/Length Dosing, 88, kg, 11/27/23 15:03:00 EDT, Weight Dosing Follow-up With When Contact Information OXANA CARVALHO PA-C, URL [id number] [place] [address] Additional Instructions: 1 year f/up with KUB Patient Education Urinary Incontinence Overactive Bladder, Adult Documentation recorded by the bev Solo accurately reflects the services(s) I performed and decisions made by me. Authenticated by Oxana Carvalho PA-C on 11/27/2023 15:46:29. I, Howard Solo, personally scribed for Oxana Carvalho PA-C on 11/27/2023 15:25:02. . 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 Normal [facility] Comment on above: Result Comment: Elec tronically Signed By: OXANA CARVALHO PA-C\.br\Date and Time Signed: 11/27/23 15:46 EDT\.br\Electronically Co-Signed By: Howard Solo\.br\Date and Time Co-Signed: 11/27/23 15:25 EDT XR KNEE RIGHT (1-2 VIEWS)on 11-02-2023 XR KNEE RIGHT (1-2 VIEWS) EXAM: XR KNEE RIGHT (1-2 VIEWS) HISTORY: Closed fracture of tibial plateau, right, initial encounter COMPARISON: Multiple prior studies most recent of 09/28/2023. IMPRESSION: FINDINGS/IMPRESSION: 1. The right tibial plateau fracture has healed in anatomic alignment. 2. Mild degenerative changes bilaterally. 3. Right effusion has resolved. Interpreted by: Prashant Birch Jr., MD Signed by: Prashant Birch Jr., MD 11/02/23 Final result Normal [facility] XR KNEE RIGHT (1-2 VIEWS)on 09-28-2023 XR KNEE RIGHT (1-2 VIEWS) EXAM: XR KNEE RIGHT (1-2 VIEWS). HISTORY: Closed displaced bicondylar fracture of right tibia, initial encounter. COMPARISON: 09/03/2023 IMPRESSION: FINDINGS/IMPRESSION: 1. New bone is forming across the transverse tibial metaphyseal fracture which is healing in anatomic alignment. 2. No other acute change. Interpreted by: Prashant Birch Jr., MD Signed by: Prashant Birch Jr., MD 09/28/23 Final result Normal [facility] Lab Reportson 08-23-2023 Lab Reports [id number]# 1.00TIFF Normal [facility] Lab Reportson 08-22-2023 Lab Reports [id number]# 1.00TIFF Normal [facility] Physician Referralon 024 Physician Referral [id number]#1. 00TIFF Normal [facility] RAD - Ultrasound Reporton RAD - Ultrasound Report [id number]#1 .00TIFF Normal [facility] Screenson 08-22-2023 Screens [id number]# 1.00TIFF Normal [facility] Ambulatory Visit Summaryon 0 08-21-2023 Ambulatory Visit Summary KATHY PORTER :1960 Visit Date:08/21/2023 Ambulatory Visit Instructions Your Diagnosis Kidney stones Mixed incontinence Chronic kidney disease Renal cyst Your Care Team Attending Physician - DEVEN GUTIERREZ, OXANA Schwartz Primary Care Physician - Peter Arnett MD [...] Schedule the Following Appointments Follow Up with OXANA CARVALHO PA-C, URL When: Comments: 3 mos ([facility]) Where: [address] [place] [address] [phone] Medications What How Much When Instructions Unchanged [...] 2 tab(s (more content not included)... Normal [facility] Patient Educationon 08-21-19 Patient Education Urology [...] nerve stimulation). ? For women, using a medical device assembler to prevent urine leaks. This is a [...] urine. ? (more content not included)... Normal [facility] Reminderson 08-21-2023 Reminders - From: Evy Gunderson To: KRISSY Carvalho; Sent: 08/21/2023 10:39:44 EDT Show up: 06/20/2024 10:38:00 EDT Subject: KUB and RAMONA Reminder Message Pt needs RAMONA and KUB prior to appt in 1 year. Typically goes to [facility]. Normal [facility] XR LSPINE MIN 4 VIEWSon 10-2 [...] DANII CARTER Date: 2022-01-20 07:20 Normal [facility] DEPAKENE/VALPROICon 01-20-20 22 DEPAKENE 79.2 ug/ml Normal 50.0-100.0 [facility] Comment on above: Performed By: #### V ALP #### [facility] [address] [place] [address] Dr. Julio Goddard Albumin [Mass/volume] in Ser um or PlasmaOrdered By: Henry Burnett on 01-05-2022 Albumin [Mass/Vol] 3.0 g/dL 3.2-5.5 [facility] Basophils Auto (Bld) [#/Vol] Ordered By: Henry Burnett on 01-05-2022 Basophils (Bld) [#/Vol] 0.0 10*3/uL 0.0-0.2 [facility] Basophils/100 WBC Auto (Bld) Ordered By: Henry Burnett on 01-05-2022 Basophils/100 WBC (Bld) 0.6 % . [facility] Blood hemoglobin measurement (mass/volume)Ordered By: Henry Burnett on 01-05-2022 Hemoglobin (Bld) [Mass/Vol] 12.8 g/dL 11.8-15.4 [facility] Blood leukocytes automated c ount (number/volume)Ordered By: Henry Burnett on 01-05-2022 WBC (Bld) [#/Vol] 5.3 10*3/uL 4.5-11.0 [facility] Complete Blood Count Auto Di ffon 01-05-2022 Basophils (Bld) [#/Vol] 0.0 10*3/uL Normal 0.0-0.2 [facility] Comment on above: Result Comment: PERF ORMED BY: [place] [address] PATHOLOGIST DIET TECH ANTONY ELIAS M.D. Performed By: #### C BC, CMP, PHOS, MG, LIPID #### [address] Basophils/100 WBC (Bld) 0.6 % Normal . [facility] Comment on above: Performed By: #### C BC, CMP, PHOS, MG, LIPID #### [address] Eosinophils (Bld) [#/Vol] 0.2 10*3/uL Normal 0.0-0.45 [facility] Comment on above: Performed By: #### C BC, CMP, PHOS, MG, LIPID #### [address] Eosinophils/100 WBC (Bld) 3.5 % Normal . [facility] Comment on above: Performed By: #### C BC, CMP, PHOS, MG, LIPID #### [address] Erythrocyte distribution width (RBC) [Ratio] 16.2 % High 11.9-15.3 [facility] Comment on above: Performed By: #### C BC, CMP, PHOS, MG, LIPID #### [address] Hematocrit (Bld) [Volume fraction] 38.6 % Normal 34.0-46.4 [facility] Comment on above: Performed By: #### C BC, CMP, PHOS, MG, LIPID #### [address] Hemoglobin (Bld) [Mass/Vol] 12.8 g/dL Normal 11.8-15.4 [facility] Comment on above: Performed By: #### C BC, CMP, PHOS, MG, LIPID #### [place] [address] [place] Lymphocytes (Bld) [#/Vol] 1.7 10*3/uL Normal 1.00-4.8 [facility] Comment on above: Performed By: #### C BC, CMP, PHOS, MG, LIPID #### [address] Lymphocytes/100 WBC (Bld) 33.1 % Normal . [facility] Comment on above: Performed By: #### C BC, CMP, PHOS, MG, LIPID #### [address] MCH (RBC) [Entitic mass] 30.2 pg Normal 24.7-34.3 [facility] Comment on above: Performed By: #### C BC, CMP, PHOS, MG, LIPID #### [address] MCV (RBC) [Entitic vol] 90.6 fL Normal 80-100 [facility] Comment on above: Performed By: #### C BC, CMP, PHOS, MG, LIPID #### [address] Mean Corpuscular HGB Conc 33.3 g/dL Normal 32.0-35.0 [facility] Comment on above: Performed By: #### C BC, CMP, PHOS, MG, LIPID #### [address] Monocytes (Bld) [#/Vol] 0.7 10*3/uL Normal 0.0-0.8 [facility] Comment on above: Performed By: #### C BC, CMP, PHOS, MG, LIPID #### [address] Monocytes/100 WBC (Bld) 12.5 % Normal . [facility] Comment on above: Performed By: #### C BC, CMP, PHOS, MG, LIPID #### [address] Neutrophils (Bld) [#/Vol] 2.6 10*3/uL Normal 1.8-7.7 [facility] Comment on above: Performed By: #### C BC, CMP, PHOS, MG, LIPID #### [facility] [address] [place] [address] Neutrophils/100 WBC (Bld) 50.3 % Normal . [facility] Comment on above: Performed By: #### C BC, CMP, PHOS, MG, LIPID #### [facility] [address] [place] [address] Nucleated RBC/100 WBC (Bld) [Ratio] 0.1 % Normal 0-0.5 [facility] Comment on above: Performed By: #### C BC, CMP, PHOS, MG, LIPID #### [address] Platelet mean volume (Bld) [Entitic vol] 8.9 fL Normal 6.3-10.7 [facility] Comment on above: Performed By: #### C BC, CMP, PHOS, MG, LIPID #### [address] Platelets (Bld) [#/Vol] 186 10*3/uL Normal 150-450 [facility] Comment on above: Performed By: #### C BC, CMP, PHOS, MG, LIPID #### [address] RBC (Bld) [#/Vol] 4.25 10*6/uL Normal 3.60-5.00 [facility] Comment on above: Performed By: #### C BC, CMP, PHOS, MG, LIPID #### [address] WBC (Bld) [#/Vol] 5.3 10*3/uL Normal 4.5-11.0 [facility] Comment on above: Performed By: #### C BC, CMP, PHOS, MG, LIPID #### [address] Comprehensive Metabolic Pane clarice 01-05-2022 Albumin [Mass/Vol] 3.0 g/dL Low 3.2-5.5 [facility] Comment on above: Performed By: #### C BC, CMP, PHOS, MG, LIPID #### [facility] [address] [place] [address] Albumin/Globulin [Mass ratio] 1.2 {ratio} Normal [facility] Comment on above: Performed By: #### C BC, CMP, PHOS, MG, LIPID #### [facility] [address] [place] [address] ALP [Catalytic activity/Vol] 33 U/L Normal 32-92 [facility] Comment on above: Performed By: #### C BC, CMP, PHOS, MG, LIPID #### [address] ALT [Catalytic activity/Vol] 11 U/L Normal 10-60 [facility] Comment on above: Performed By: #### C BC, CMP, PHOS, MG, LIPID #### [address] Anion gap [Moles/Vol] 11.6 mmol/L Normal 6.0-15.0 [facility] Comment on above: Performed By: #### C BC, CMP, PHOS, MG, LIPID #### [address] AST [Catalytic activity/Vol] 13 U/L Normal 10-42 [facility] Comment on above: Performed By: #### C BC, CMP, PHOS, MG, LIPID #### [address] Bilirubin [Mass/Vol] 0.4 mg/dL Normal 0.3-1.2 [facility] Comment on above: Performed By: #### C BC, CMP, PHOS, MG, LIPID #### [address] Calcium [Mass/Vol] 9.1 mg/dL Normal 8.2-10.2 [facility] Comment on above: Performed By: #### C BC, CMP, PHOS, MG, LIPID #### [place] [id number] [place] Chloride [Moles/Vol] 105 mmol/L Normal 95-114 [facility] Comment on above: Performed By: #### C BC, CMP, PHOS, MG, LIPID #### [address] CO2 [Moles/Vol] 25.2 mmol/L Normal 22.0-30.0 [facility] Comment on above: Performed By: #### C BC, CMP, PHOS, MG, LIPID #### [address] Creatinine [Mass/Vol] 1.14 mg/dL High 0.44-1.03 [facility] Comment on above: Performed By: #### C BC, CMP, PHOS, MG, LIPID #### [address] Creatinine Clr Calc Pharmacy 51.99 [facility] Comment on above: Result Comment: PERF ORMED BY: [place] [address] PATHOLOGIST DIET TECH ANTONY ELIAS M.D. Performed By: #### C BC, CMP, PHOS, MG, LIPID #### [address] Estimated GFR ( [place] 59 [facility] Comment on above: Result Comment: GFR estimated reference range: According to KDOQI guidelines, <60 ml/min/1.73m2 is sufficient to diagnose a patient with chronic kidney disease. Performed By: #### C BC, CMP, PHOS, MG, LIPID #### [facility] [address] [place] [address] Estimated GFR (Non- Am 49 [facility] Comment on above: Performed By: #### C BC, CMP, PHOS, MG, LIPID #### [address] Globulin (S) [Mass/Vol] 2.5 g/dL Normal [facility] Comment on above: Performed By: #### C BC, CMP, PHOS, MG, LIPID #### [facility] [address] [place] [address] [place] Glucose [Mass/Vol] 96 mg/dL Normal 70-100 [facility] Comment on above: Result Comment: [facility] Glucose Reference Range is dependent on time and content of last meal. Glucose of more than 200 mg/dL in a nonstressed, ambulatory subject supports the diagnosis of Diabetes Mellitus. ADA recommended reference range Performed By: #### C BC, CMP, PHOS, MG, LIPID #### [facility] [address] Potassium [Moles/Vol] 3.8 mmol/L Normal 3.5-5.1 [facility] Comment on above: Performed By: #### C BC, CMP, PHOS, MG, LIPID #### [facility] [address] Protein [Mass/Vol] 5.5 g/dL Low 6.1-7.9 [facility] Comment on above: Performed By: #### C BC, CMP, PHOS, MG, LIPID #### [facility] [address] Sodium [Moles/Vol] 138 mmol/L Normal 136-146 [facility] Comment on above: Performed By: #### C BC, CMP, PHOS, MG, LIPID #### [facility] [address] [place] [address] [place] Urea nitrogen [Mass/Vol] 11 mg/dL Normal 9-23 [facility] Comment on above: Performed By: #### C BC, CMP, PHOS, MG, LIPID #### [facility] [address] [place] [address] [place] Creatinine and Glomerular fi ltration rate.predicted panel (S/P/Bld)Ordered By: Henry Burnett on 01-05-2022 Creatinine [Mass/Vol] 1.14 mg/dL 0.44-1.03 [facility] Eosinophils Auto (Bld) [#/Vo l]Ordered By: Henry Lemonr on 01-05-2022 Eosinophils (Bld) [#/Vol] 0.2 10*3/uL 0.0-0.45 [facility] Eosinophils/100 WBC Auto (Bl d)Ordered By: Henry Burnett on 01-05-2022 Eosinophils/100 WBC (Bld) 3.5 % . [facility] Erythrocyte distribution wid th Auto (RBC) [Ratio]Ordered By: Henry Burnett on 01-05-2022 Erythrocyte distribution width (RBC) [Ratio] 16.2 % 11.9-15.3 [facility] Estimated glomerular filtrat ion rate (GFR) non- AmericanOrdered By: Henry Burnett on 01-05-2022 GFR/1.73 sq M.predicted among non-blacks MDRD (S/P/Bld) [Vol rate/Area] 49 mL/Min [facility] Globulin Calc (S) [Mass/Vol] Ordered By: Henry Burnett on 01-05-2022 Globulin (S) [Mass/Vol] 2.5 g/dL [facility] Hematocrit Auto (Bld) [Volum e fraction]Ordered By: Henry Burnett on 01-05-2022 Hematocrit (Bld) [Volume fraction] 38.6 % 34.0-46.4 [facility] Laboratory - Hematology and Cell countsOrdered By: Henry Burnett on 01-05-2022 Nucleated RBC/100 WBC (Bld) [Ratio] 0.1 % 0-0.5 [facility] Lymphocytes Auto (Bld) [#/Vo l]Ordered By: Henry Burnett on 01-05-2022 Lymphocytes (Bld) [#/Vol] 1.7 10*3/uL 1.00-4.8 [facility] Lymphocytes/100 WBC Auto (Bl d)Ordered By: Henry Burnett on 01-05-2022 Lymphocytes/100 WBC (Bld) 33.1 % . [facility] MCH Auto (RBC) [Entitic mass ]Ordered By: Henry Burnett on 01-05-2022 MCH (RBC) [Entitic mass] 30.2 pg 24.7-34.3 [facility] MCHC Auto (RBC) [Mass/Vol]Or dered By: Obaydah Daromar on 01-05-2022 MCHC (RBC) [Mass/Vol] 33.3 g/dL 32.0-35.0 [facility] MCV Auto (RBC) [Entitic vol] Ordered By: Obaydah Daromar on 01-05-2022 MCV (RBC) [Entitic vol] 90.6 fL 80-100 [facility] Monocytes Auto (Bld) [#/Vol] Ordered By: Obaydah Daromar on 01-05-2022 Monocytes (Bld) [#/Vol] 0.7 10*3/uL 0.0-0.8 [facility] Monocytes/100 WBC Auto (Bld) Ordered By: Obaydah Daromar on 01-05-2022 Monocytes/100 WBC (Bld) 12.5 % . [facility] Neutrophils Auto (Bld) [#/Vo l]Ordered By: Obsonjadah Daromar on 01-05-2022 Neutrophils (Bld) [#/Vol] 2.6 10*3/uL 1.8-7.7 [facility] Neutrophils/100 WBC Auto (Bl d)Ordered By: Obsonjadah Filibertoomar on 01-05-2022 Neutrophils/100 WBC (Bld) 50.3 % . [facility] No Panel InformationOrdered By: Obsonjadanaga De Los Santosomar on 01-05-2022 Estimated GFR () 59 mL/Min [facility] Comment on above: GFR estimated refere nce range: According to KDOQI guidelines, <60 ml/min/1.73m2 is sufficient to diagnose a patient with chronic kidney disease. Pharmacy Creatinine Clearance (Chem 51.99 [facility] Platelet mean volume Auto (B ld) [Entitic vol]Ordered By: Obsonjadah Daromar on 01-05-2022 Platelet mean volume (Bld) [Entitic vol] 8.9 fL 6.3-10.7 [facility] Platelets Auto (Bld) [#/Vol] Ordered By: Obsonjadah Daromar on 01-05-2022 Platelets (Bld) [#/Vol] 186 10*3/uL 150-450 [facility] Protein [Mass/volume] in Ser um or PlasmaOrdered By: Henry Burnett on 01-05-2022 Protein [Mass/Vol] 5.5 g/dL 6.1-7.9 [facility] RBC Auto (Bld) [#/Vol]Ordere d By: Henry Burnett on 01-05-2022 RBC (Bld) [#/Vol] 4.25 10*6/uL 3.60-5.00 [facility] Serum or plasma alanine angeles otransferase measurement without P-5'-P (enzymatic activiOrdered By: Henry Burnett on 01-05-2022 ALT No additional P-5'-P [Catalytic activity/Vol] 11 U/L 60 [facility] Serum or plasma albumin/glob ulin mass ratioOrdered By: Henry Burnett on 01-05-2022 Albumin/Globulin [Mass ratio] 1.2 {ratio} [facility] Serum or plasma alkaline flaquita sphatase measurement (enzymatic activity/volume)Ordered By: Henry Burnett on 01-05-2022 ALP [Catalytic activity/Vol] 33 U/L 32-92 [facility] Serum or plasma anion gap de terminationOrdered By: Henry Burnett on 01-05-2022 Anion gap [Moles/Vol] 11.6 mmol/L 6.0-15.0 [facility] Serum or plasma aspartate am inotransferase measurement (enzymatic activity/volume)Ordered By: Henry Burnett on 01-05-2022 AST [Catalytic activity/Vol] 13 U/L 1042 [facility] Serum or plasma calcium sarah urement (mass/volume)Ordered By: Henry Burnett on 01-05-2022 Calcium [Mass/Vol] 9.1 mg/dL 8.2-10.2 [facility] Serum or plasma chloride deep surement (moles/volume)Ordered By: Henry Burnett on 01-05-2022 Chloride [Moles/Vol] 105 mmol/L 95-114 [facility] Serum or plasma glucose sarah urement (mass/volume)Ordered By: Henry Burnett on 01-05-2022 Glucose [Mass/Vol] 96 mg/dL 70-100 [facility] Comment on above: ADA recommended refe rence rangeRandom Glucose Reference Range is dependent on time and content of last meal. Glucose of more than 200 mg/dL in a nonstressed, ambulatory subject supports the diagnosis of Diabetes Mellitus. Serum or plasma potassium me asurement (moles/volume)Ordered By: Henry Burnett on 01-05-2022 Potassium [Moles/Vol] 3.8 mmol/L 3.5-5.1 [facility] Serum or plasma sodium measu rement (moles/volume)Ordered By: Henry Burnett on 01-05-2022 Sodium [Moles/Vol] 138 mmol/L 136-146 [facility] Serum or plasma total biliru bin measurement (mass/volume)Ordered By: Henry Burnett on 01-05-2022 Bilirubin [Mass/Vol] 0.4 mg/dL 0.3-1.2 [facility] Serum or plasma total carbon dioxide measurement (moles/volume)Ordered By: Henry Burnett on 01-05-2022 CO2 [Moles/Vol] 25.2 mmol/L 22.0-30.0 [facility] Serum or plasma urea nitroge n measurement (mass/volume)Ordered By: Henry Burnett on 01-05-2022 Urea nitrogen [Mass/Vol] 11 mg/dL 9-23 [facility] Urine culture routineOrdered By: Justin Francisco on 01-05-2022 Bacteria identified Cx Nom (U) Escherichia coli [facility] Cholesterol [Mass/volume] in Serum or PlasmaOrdered By: Henry Burnett on 01-04-2022 Cholesterol [Mass/Vol] 145 mg/dL 140-200 [facility] Comment on above: Chol less than 200 m g/dl low riskChol 201-239 mg/dl borderline riskChol 240 mg/dl and greater high risk Cholesterol in LDL Calc [Mas s/Vol]Ordered By: Henry Burnett on 01-04-2022 Cholesterol in LDL [Mass/Vol] 78 mg/dL 0-100 [facility] Comment on above: LDL ATP III CLASSIFI CATIONLDL less than 100 mg/dL OptimalLDL 100-129 mg/dL Near or above optimalLDL 130-159 mg/dL Borderline highLDL 160-189 mg/dL HighLDL greater than 189 mg/dL Very high Cholesterol in VLDL Calc [Ma ss/Vol]Ordered By: Henry Burnett on 01-04-2022 Cholesterol in VLDL [Mass/Vol] 12 mg/dL [facility] Complete Blood Count Auto Di ffon 01-04-2022 Basophils (Bld) [#/Vol] 0.0 10*3/uL Normal 0.0-0.2 [facility] Comment on above: Result Comment: PERF ORMED BY: [place] [address] PATHOLOGIST DIET TECH ANTONY ELIAS M.D. Performed By: #### C BC, CMP, PHOS, MG, LIPID #### [facility] [address] Basophils/100 WBC (Bld) 0.8 % Normal . [facility] Comment on above: Performed By: #### C BC, CMP, PHOS, MG, LIPID #### [facility] [address] Eosinophils (Bld) [#/Vol] 0.2 10*3/uL Normal 0.0-0.45 [facility] Comment on above: Performed By: #### C BC, CMP, PHOS, MG, LIPID #### [facility] [address] Eosinophils/100 WBC (Bld) 4.2 % Normal . [facility] Comment on above: Performed By: #### C BC, CMP, PHOS, MG, LIPID #### [facility] [address] Erythrocyte distribution width (RBC) [Ratio] 15.8 % High 11.9-15.3 [facility] Comment on above: Performed By: #### C BC, CMP, PHOS, MG, LIPID #### [address] Hematocrit (Bld) [Volume fraction] 37.5 % Normal 34.0-46.4 [facility] Comment on above: Performed By: #### C BC, CMP, PHOS, MG, LIPID #### [address] Hemoglobin (Bld) [Mass/Vol] 12.3 g/dL Normal 11.8-15.4 [facility] Comment on above: Performed By: #### C BC, CMP, PHOS, MG, LIPID #### [address] Lymphocytes (Bld) [#/Vol] 1.6 10*3/uL Normal 1.00-4.8 [facility] Comment on above: Performed By: #### C BC, CMP, PHOS, MG, LIPID #### [address] Lymphocytes/100 WBC (Bld) 31.2 % Normal . [facility] Comment on above: Performed By: #### C BC, CMP, PHOS, MG, LIPID #### [address] MCH (RBC) [Entitic mass] 29.7 pg Normal 24.7-34.3 [facility] Comment on above: Performed By: #### C BC, CMP, PHOS, MG, LIPID #### [address] MCV (RBC) [Entitic vol] 90.5 fL Normal 80-100 [facility] Comment on above: Performed By: #### C BC, CMP, PHOS, MG, LIPID #### [address] Mean Corpuscular HGB Conc 32.8 g/dL Normal 32.0-35.0 [facility] Comment on above: Performed By: #### C BC, CMP, PHOS, MG, LIPID #### [address] Monocytes (Bld) [#/Vol] 0.7 10*3/uL Normal 0.0-0.8 [facility] Comment on above: Performed By: #### C BC, CMP, PHOS, MG, LIPID #### [facility] [address] Monocytes/100 WBC (Bld) 13.1 % Normal . [facility] Comment on above: Performed By: #### C BC, CMP, PHOS, MG, LIPID #### [facility] [address] Neutrophils (Bld) [#/Vol] 2.6 10*3/uL Normal 1.8-7.7 [facility] Comment on above: Performed By: #### C BC, CMP, PHOS, MG, LIPID #### [address] Neutrophils/100 WBC (Bld) 50.7 % Normal . [facility] Comment on above: Performed By: #### C BC, CMP, PHOS, MG, LIPID #### [facility] [address] [place] [address] [place] Nucleated RBC/100 WBC (Bld) [Ratio] 0.1 % Normal 0-0.5 [facility] Comment on above: Performed By: #### C BC, CMP, PHOS, MG, LIPID #### [facility] [address] [place] [address] [place] Platelet mean volume (Bld) [Entitic vol] 8.5 fL Normal 6.3-10.7 [facility] Comment on above: Performed By: #### C BC, CMP, PHOS, MG, LIPID #### [facility] [address] [place] [address] [place] Platelets (Bld) [#/Vol] 190 10*3/uL Normal 150-450 [facility] Comment on above: Performed By: #### C BC, CMP, PHOS, MG, LIPID #### [facility] [address] [place] [address] [place] RBC (Bld) [#/Vol] 4.15 10*6/uL Normal 3.60-5.00 [facility] Comment on above: Performed By: #### C BC, CMP, PHOS, MG, LIPID #### [address] WBC (Bld) [#/Vol] 5.1 10*3/uL Normal 4.5-11.0 [facility] Comment on above: Performed By: #### C BC, CMP, PHOS, MG, LIPID #### [address] Comprehensive Metabolic Pane clarice 01-04-2022 Albumin [Mass/Vol] 3.0 g/dL Low 3.2-5.5 [facility] Comment on above: Performed By: #### C BC, CMP, PHOS, MG, LIPID #### [address] Albumin/Globulin [Mass ratio] 1.2 {ratio} Normal [facility] Comment on above: Performed By: #### C BC, CMP, PHOS, MG, LIPID #### [address] ALP [Catalytic activity/Vol] 32 U/L Normal 32-92 [facility] Comment on above: Performed By: #### C BC, CMP, PHOS, MG, LIPID #### [address] ALT [Catalytic activity/Vol] 12 U/L Normal 10-60 [facility] Comment on above: Performed By: #### C BC, CMP, PHOS, MG, LIPID #### [address] Anion gap [Moles/Vol] 10.6 mmol/L Normal 6.0-15.0 [facility] Comment on above: Performed By: #### C BC, CMP, PHOS, MG, LIPID #### [address] AST [Catalytic activity/Vol] 15 U/L Normal 10-42 [facility] Comment on above: Performed By: #### C BC, CMP, PHOS, MG, LIPID #### [facility] [address] Bilirubin [Mass/Vol] 0.3 mg/dL Normal 0.3-1.2 [facility] Comment on above: Performed By: #### C BC, CMP, PHOS, MG, LIPID #### [facility] [address] Calcium [Mass/Vol] 9.0 mg/dL Normal 8.2-10.2 [facility] Comment on above: Performed By: #### C BC, CMP, PHOS, MG, LIPID #### [address] Chloride [Moles/Vol] 103 mmol/L Normal 95-114 [facility] Comment on above: Performed By: #### C BC, CMP, PHOS, MG, LIPID #### [address] CO2 [Moles/Vol] 27.6 mmol/L Normal 22.0-30.0 [facility] Comment on above: Performed By: #### C BC, CMP, PHOS, MG, LIPID #### [address] Creatinine [Mass/Vol] 1.21 mg/dL High 0.44-1.03 [facility] Comment on above: Performed By: #### C BC, CMP, PHOS, MG, LIPID #### [address] Creatinine Clr Calc Pharmacy 49.01 [facility] Comment on above: Performed By: #### C BC, CMP, PHOS, MG, LIPID #### [address] Estimated GFR ( [place] 55 [facility] Comment on above: Result Comment: GFR estimated reference range: According to KDOQI guidelines, <60 ml/min/1.73m2 is sufficient to diagnose a patient with chronic kidney disease. Performed By: #### C BC, CMP, PHOS, MG, LIPID #### [facility] [address] [place] [address] [place] Estimated GFR (Non- Am 46 Normal [facility] Comment on above: Performed By: #### C BC, CMP, PHOS, MG, LIPID #### [facility] [address] Globulin (S) [Mass/Vol] 2.6 g/dL Normal [facility] Comment on above: Performed By: #### C BC, CMP, PHOS, MG, LIPID #### [facility] [address] Glucose [Mass/Vol] 151 mg/dL High 70-100 [facility] Comment on above: Result Comment: [facility] Glucose Reference Range is dependent on time and content of last meal. Glucose of more than 200 mg/dL in a nonstressed, ambulatory subject supports the diagnosis of Diabetes Mellitus. ADA recommended reference range Performed By: #### C BC, CMP, PHOS, MG, LIPID #### [facility] [address] Potassium [Moles/Vol] 3.2 mmol/L Low 3.5-5.1 [facility] Comment on above: Performed By: #### C BC, CMP, PHOS, MG, LIPID #### [facility] [address] Protein [Mass/Vol] 5.6 g/dL Low 6.1-7.9 [facility] Comment on above: Performed By: #### C BC, CMP, PHOS, MG, LIPID #### [facility] [address] Sodium [Moles/Vol] 138 mmol/L Normal 136-146 [facility] Comment on above: Performed By: #### C BC, CMP, PHOS, MG, LIPID #### [facility] [address] Urea nitrogen [Mass/Vol] 11 mg/dL Normal 9-23 [facility] Comment on above: Performed By: #### C BC, CMP, PHOS, MG, LIPID #### [facility] [address] Laboratory - Chemistry and C hemistry - challengeOrdered By: Henry Burnett on 01-04-2022 Magnesium [Mass/Vol] 1.6 mg/dL 1.6-2.6 [facility] Lipid Panelon 01-04-2022 Cholesterol [Mass/Vol] 145 mg/dL Normal 140-200 [facility] Comment on above: Result Comment: Chol less than 200 mg/dl low risk Chol 201-239 mg/dl borderline risk Chol 240 mg/dl and greater high risk Performed By: #### C BC, CMP, PHOS, MG, LIPID #### [facility] [address] Cholesterol in HDL [Mass/Vol] 55 mg/dL Normal 35-85 [facility] Comment on above: Result Comment: HDL CHOL ATP-III CLASSIFICATION Cardiovascular Risk HDL > or equal to 60 mg/dL LOW HDL < 40 mg/dL HIGH Performed By: #### C BC, CMP, PHOS, MG, LIPID #### [facility] [address] Cholesterol.total/Tila sterol in HDL [Mass ratio] 2.6 {ratio} Normal <5.0 [facility] Comment on above: Result Comment: PERF ORMED BY: [place] [address] PATHOLOGIST DIET TECH ANTONY ELIAS M.D. Performed By: #### C BC, CMP, PHOS, MG, LIPID #### [facility] [address] LDL Cholesterol,Calculated 78 mg/dL Normal 0-100 [facility] Comment on above: Result Comment: LDL ATP III CLASSIFICATION LDL less than 100 mg/dL Optimal LDL 100-129 mg/dL Near or above optimal LDL 130-159 mg/dL Borderline high LDL 160-189 mg/dL High LDL greater than 189 mg/dL Very high Performed By: #### C BC, CMP, PHOS, MG, LIPID #### [facility] [address] [place] [address] [place] Triglyceride w/Reflex 60 mg/dL Normal 35-149 [facility] Comment on above: Result Comment: TRIG ATP III CLASSIFICATION TRIG less than 150 mg/dL Normal TRIG 150-199 mg/dL Borderline high TRIG 200-500 mg/dL High TRIG greater than 500 mg/dL Very high Standard traceable to the Center for Disease Conrtrol and Prevention (CDC) test method. Performed By: #### C BC, CMP, PHOS, MG, LIPID #### [facility] [address] VLDL CHOLESTEROL 12 mg/dL Normal [facility] Comment on above: Performed By: #### C BC, CMP, PHOS, MG, LIPID #### [facility] [address] [place] [address] Magnesiumon 01-04-2022 Magnesium [Mass/Vol] 1.6 mg/dL Normal 1.6-2.6 [facility] Comment on above: Performed By: #### C BC, CMP, PHOS, MG, LIPID #### [address] No Panel InformationOrdered By: Graham Helm on 01-04-2022 Valproic Acid (Depakene) Level 28.2 ug/mL 50.0-100.0 [facility] Comment on above: Last dose: - Phosphate [Mass/volume] in S yeyo or PlasmaOrdered By: Henry Burnett on 01-04-2022 Phosphate [Mass/Vol] 3.5 mg/dL 2.5-4.6 [facility] Phosphoruson 01-04-2022 Phosphate [Mass/Vol] 3.5 mg/dL Normal 2.5-4.6 [facility] Comment on above: Performed By: #### C BC, CMP, PHOS, MG, LIPID #### [facility] [address] [place] [address] Serum or plasma high density lipoprotein (HDL) cholesterol measurementOrdered By: Henry Burnett on 01-04-2022 Cholesterol in HDL [Mass/Vol] 55 mg/dL 35-85 [facility] Comment on above: HDL CHOL ATP-III CLA SSIFICATION Cardiovascular RiskHDL > or equal to 60 mg/dL LOWHDL < 40 mg/dL HIGH Serum or plasma total choles terol/high density lipoprotein (HDL) cholesterol mass ratOrdered By: Henry Burnett on 01-04-2022 Cholesterol.total/Tila sterol in HDL [Mass ratio] 2.6 {ratio} <5.0 [facility] Triglyceride [Mass/volume] i n Serum or PlasmaOrdered By: Henry Burnett on 01-04-2022 Triglyceride [Mass/Vol] 60 mg/dL 35-149 [facility] Comment on above: TRIG ATP III CLASSIF ICATIONTRIG less than 150 mg/dL NormalTRIG 150-199 mg/dL Borderline highTRIG 200-500 mg/dL High TRIG greater than 500 mg/dL Very highStandard traceable to the Center for Disease Conrtrol and Prevention (CDC) test method. Valproic Acid (in house)on Valproic Acid (in house) 28.2 ug/mL Low 50.0-100.0 [facility] Comment on above: Result Comment: Last dose: - PERFORMED BY: [place] [address] PATHOLOGIST DIET TECH ANTONY ELIAS M.D. Performed By: #### C BC, CMP, PHOS, MG, LIPID #### [facility] [address] Acetaminophenon 01-03-2022 Acetaminophen [Mass/Vol] 25.3 ug/mL Normal 10.0-30.0 [facility] Comment on above: Performed By: #### C MP, T4F, TSH3, CBC, ETOH, JUAN, ACET, VALP #### [facility] [address] [place] [address] [place] Albumin [Mass/volume] in Ser um or PlasmaOrdered By: Justin Francisco on 01-03-2022 Albumin [Mass/Vol] 3.6 g/dL 3.2-5.5 [facility] Amphetamine Screen Ql (U)Ord ered By: Justin Francisco on 01-03-2022 Amphetamines Ql (U) Negative Negative [facility] Automated erythrocytes count in urine sediment (number/area)Ordered By: Justin Francisco on 01-03-2022 RBC Auto (Urine sed) [#/Area] None seen [HPF] 0-4 [facility] Automated leukocytes count i n urine sediment (number/area)Ordered By: Justin Francisco on 01-03-2022 WBC Auto (Urine sed) [#/Area] 5-9 [HPF] 0-4 [facility] Barbiturates [Presence] in U rineOrdered By: Justin Francisco on 01-03-2022 Barbiturates Ql (U) Negative Negative [facility] Basophils Auto (Bld) [#/Vol] Ordered By: Justin Francisco on 01-03-2022 Basophils (Bld) [#/Vol] 0.0 10*3/uL 0.0-0.2 [facility] Basophils/100 WBC Auto (Bld) Ordered By: Justin Francisco on 01-03-2022 Basophils/100 WBC (Bld) 0.6 % . [facility] Benzodiazepines [Presence] i n UrineOrdered By: Justin Francisco on 01-03-2022 Benzodiazepines Ql (U) Negative Negative [facility] Bilirubin Test strip Ql (U)O rdered By: Justin Francisco on 01-03-2022 Bilirubin Ql (U) Negative Negative [facility] Blood hemoglobin measurement (mass/volume)Ordered By: Justin Francisco on 01-03-2022 Hemoglobin (Bld) [Mass/Vol] 13.4 g/dL 11.8-15.4 [facility] Blood leukocytes automated c ount (number/volume)Ordered By: Justin Francisco on 01-03-2022 WBC (Bld) [#/Vol] 6.4 10*3/uL 4.5-11.0 [facility] COVID-19 Antigenon 2 COVID-19 Antigen Healthcare Worker?: [...] developed and its performance characteristic determined by [employer]) and validated at [facility]. This test has not been FDA [...] for SARS Antigen by MARLINE PERFORMED BY: [place] [address] PATHOLOGIST DIET TECH ANTONY ELIAS M.D. Normal [facility] Comment on above: Performed By: #### C BC, CMP, PHOS, MG, LIPID #### [address] COVID-19 [facility] 01-03-2022 SARS-CoV-2 (COVID-19) RNA ARMINDA+probe Ql (Unsp spec) Negative Normal Negative [facility] Comment on above: Order Comment: Healt hcare Worker?: N Result Comment: Testing for SARS-CoV-2 by RT-PCR This test was developed and its performance characteristics determined by [employer]) and validated at the [facility]. This test has not been FDA [...] is terminated or revoked sooner. PERFORMED BY: [place] [address] PATHOLOGIST DIET TECH ANTONY ELIAS M.D. Performed By: #### C BC, CMP, PHOS, MG, LIPID #### [address] COVID-19 Positive/NegativeOr dered By: Justin Francisco on 01-03-2022 SARS-CoV-2 (COVID-19) N gene ARMINDA+probe Ql (Resp) Negative Negative [facility] Comment on above: Testing for SARS-CoV -2 by RT-PCRThis test was developed and its performance characteristics determined by [employer] ([employer]) and validated at the [facility]. This test has not been FDA [...] (COVID-19) Ag IA.rapid Ql (Resp) Negative Negative [facility] Comment on above: This is a duplicate [facility] SARS Antigen ([employer]) result to be used for statistical tracking purpose only. CT head/brain wo conon 01-03 CT head/brain wo con [facility] [place] [address] CT Scan Report Signed Patient: Kathy Porter MR#: [id number] : 1960 Acct:[id number] Age/Sex: 61 / F ADM Date: 01/03/22 Loc: ER Room: Type: [facility] ER Attending Dr: Copies to: Justin [...] Rajinder Cardona M.D.01/03/2022 3:21 PM Dictation Location: [place] [address] Transcribed By: GELA 01/03/22 1521 Dictated By: Rajinder Cardona II, MD 01/03/22 1518 Signed By: 01/03/22 1521 Normal [facility] Cannabinoids [Presence] in U rine by Screen methodOrdered By: Justin Francisco on 01-03-2022 Cannabinoids Screen Ql (U) Negative Negative [facility] Comment on above: These are unconfirme d results and should not be used for legal purposes. Drug Cut-Off Concentration: AMPH 1000 ng/mL TERRY 200 ng/mL HONG 200 ng/mL COCM 300 ng/mL OP 300 ng/mL PCP 25 ng/mL THC 20 ng/mL Color Auto (U)Ordered By: Aman Francisco on 01-03-2022 Color (U) Yellow Yellow [facility] Complete Blood Count Auto Di ffon 01-03-2022 Basophils (Bld) [#/Vol] 0.0 10*3/uL Normal 0.0-0.2 [facility] Comment on above: Result Comment: PERF ORMED BY: [place] [address] PATHOLOGIST DIET TECH ANTONY ELIAS M.D. Performed By: #### C MP, T4F, TSH3, CBC, ETOH, JUAN, ACET, VALP #### [facility] [address] [place] [address] [place] Basophils/100 WBC (Bld) 0.6 % Normal . [facility] Comment on above: Performed By: #### C MP, T4F, TSH3, CBC, ETOH, JUAN, ACET, VALP #### [facility] [address] [place] [address] [place] Eosinophils (Bld) [#/Vol] 0.1 10*3/uL Normal 0.0-0.45 [facility] Comment on above: Performed By: #### C MP, T4F, TSH3, CBC, ETOH, JUAN, ACET, VALP #### [facility] [address] [place] [address] [place] Eosinophils/100 WBC (Bld) 1.4 % Normal . [facility] Comment on above: Performed By: #### C MP, T4F, TSH3, CBC, ETOH, JUAN, ACET, VALP #### [address] Erythrocyte distribution width (RBC) [Ratio] 15.7 % High 11.9-15.3 [facility] Comment on above: Performed By: #### C MP, T4F, TSH3, CBC, ETOH, JUAN, ACET, VALP #### [address] Hematocrit (Bld) [Volume fraction] 41.0 % Normal 34.0-46.4 [facility] Comment on above: Performed By: #### C MP, T4F, TSH3, CBC, ETOH, JUAN, ACET, VALP #### [address] Hemoglobin (Bld) [Mass/Vol] 13.4 g/dL Normal 11.8-15.4 [facility] Comment on above: Performed By: #### C MP, T4F, TSH3, CBC, ETOH, JUAN, ACET, VALP #### [address] Lymphocytes (Bld) [#/Vol] 1.4 10*3/uL Normal 1.00-4.8 [facility] Comment on above: Performed By: #### C MP, T4F, TSH3, CBC, ETOH, JUAN, ACET, VALP #### [address] Lymphocytes/100 WBC (Bld) 22.3 % Normal . [facility] Comment on above: Performed By: #### C MP, T4F, TSH3, CBC, ETOH, JUAN, ACET, VALP #### [address] MCH (RBC) [Entitic mass] 29.7 pg Normal 24.7-34.3 [facility] Comment on above: Performed By: #### C MP, T4F, TSH3, CBC, ETOH, JUAN, ACET, VALP #### [facility] [address] MCV (RBC) [Entitic vol] 91.0 fL Normal 80-100 [facility] Comment on above: Performed By: #### C MP, T4F, TSH3, CBC, ETOH, JUAN, ACET, VALP #### [address] Mean Corpuscular HGB Conc 32.6 g/dL Normal 32.0-35.0 [facility] Comment on above: Performed By: #### C MP, T4F, TSH3, CBC, ETOH, JUAN, ACET, VALP #### [address] Monocytes (Bld) [#/Vol] 0.6 10*3/uL Normal 0.0-0.8 [facility] Comment on above: Performed By: #### C MP, T4F, TSH3, CBC, ETOH, JUAN, ACET, VALP #### [address] Monocytes/100 WBC (Bld) 8.9 % Normal . [facility] Comment on above: Performed By: #### C MP, T4F, TSH3, CBC, ETOH, JUAN, ACET, VALP #### [address] Neutrophils (Bld) [#/Vol] 4.3 10*3/uL Normal 1.8-7.7 [facility] Comment on above: Performed By: #### C MP, T4F, TSH3, CBC, ETOH, JUAN, ACET, VALP #### [address] Neutrophils/100 WBC (Bld) 66.8 % Normal . [facility] Comment on above: Performed By: #### C MP, T4F, TSH3, CBC, ETOH, JUAN, ACET, VALP #### [address] Nucleated RBC/100 WBC (Bld) [Ratio] 0.1 % Normal 0-0.5 [facility] Comment on above: Performed By: #### C MP, T4F, TSH3, CBC, ETOH, JUAN, ACET, VALP #### [address] Platelet mean volume (Bld) [Entitic vol] 8.8 fL Normal 6.3-10.7 [facility] Comment on above: Performed By: #### C MP, T4F, TSH3, CBC, ETOH, JUAN, ACET, VALP #### [address] Platelets (Bld) [#/Vol] 236 10*3/uL Normal 150-450 [facility] Comment on above: Performed By: #### C MP, T4F, TSH3, CBC, ETOH, JUAN, ACET, VALP #### [address] RBC (Bld) [#/Vol] 4.50 10*6/uL Normal 3.60-5.00 [facility] Comment on above: Performed By: #### C MP, T4F, TSH3, CBC, ETOH, JUAN, ACET, VALP #### [address] WBC (Bld) [#/Vol] 6.4 10*3/uL Normal 4.5-11.0 [facility] Comment on above: Performed By: #### C MP, T4F, TSH3, CBC, ETOH, JUAN, ACET, VALP #### [address] Comprehensive Metabolic Pane clarice 01-03-2022 Albumin [Mass/Vol] 3.6 g/dL Normal 3.2-5.5 [facility] Comment on above: Performed By: #### C BC, CMP, PHOS, MG, LIPID #### [address] Albumin/Globulin [Mass ratio] 1.2 {ratio} Normal [facility] Comment on above: Performed By: #### C BC, CMP, PHOS, MG, LIPID #### [facility] [address] ALP [Catalytic activity/Vol] 40 U/L Normal 32-92 [facility] Comment on above: Performed By: #### C BC, CMP, PHOS, MG, LIPID #### [facility] [address] ALT [Catalytic activity/Vol] 14 U/L Normal 10-60 [facility] Comment on above: Performed By: #### C BC, CMP, PHOS, MG, LIPID #### [facility] [address] Anion gap [Moles/Vol] 16.7 mmol/L High 6.0-15.0 [facility] Comment on above: Performed By: #### C BC, CMP, PHOS, MG, LIPID #### [facility] [address] AST [Catalytic activity/Vol] 18 U/L Normal 10-42 [facility] Comment on above: Performed By: #### C BC, CMP, PHOS, MG, LIPID #### [facility] [address] [place] [address] [place] Bilirubin [Mass/Vol] 0.6 mg/dL Normal 0.3-1.2 [facility] Comment on above: Performed By: #### C BC, CMP, PHOS, MG, LIPID #### [facility] [address] [place] [address] [place] Calcium [Mass/Vol] 9.5 mg/dL Normal 8.2-10.2 [facility] Comment on above: Performed By: #### C BC, CMP, PHOS, MG, LIPID #### [facility] [address] [place] [address] [place] Chloride [Moles/Vol] 99 mmol/L Normal 95-114 [facility] Comment on above: Performed By: #### C BC, CMP, PHOS, MG, LIPID #### [facility] [address] [place] [address] [place] CO2 [Moles/Vol] 23.6 mmol/L Normal 22.0-30.0 [facility] Comment on above: Performed By: #### C BC, CMP, PHOS, MG, LIPID #### [facility] [address] Creatinine [Mass/Vol] 1.38 mg/dL High 0.44-1.03 [facility] Comment on above: Performed By: #### C BC, CMP, PHOS, MG, LIPID #### [facility] [address] Creatinine Clr Calc Pharmacy 43.00 [facility] Comment on above: Performed By: #### C BC, CMP, PHOS, MG, LIPID #### [facility] [address] Estimated GFR ( [place] 47 [facility] Comment on above: Result Comment: GFR estimated reference range: According to KDOQI guidelines, <60 ml/min/1.73m2 is sufficient to diagnose a patient with chronic kidney disease. Performed By: #### C BC, CMP, PHOS, MG, LIPID #### [facility] [address] Estimated GFR (Non- Am 39 [facility] Comment on above: Performed By: #### C BC, CMP, PHOS, MG, LIPID #### [facility] [address] Globulin (S) [Mass/Vol] 3.1 g/dL [facility] Comment on above: Performed By: #### C BC, CMP, PHOS, MG, LIPID #### [facility] [address] Glucose [Mass/Vol] 137 mg/dL High 70-100 [facility] Comment on above: Result Comment: [facility] Glucose Reference Range is dependent on time and content of last meal. Glucose of more than 200 mg/dL in a nonstressed, ambulatory subject supports the diagnosis of Diabetes Mellitus. ADA recommended reference range Performed By: #### C BC, CMP, PHOS, MG, LIPID #### [facility] [address] Potassium [Moles/Vol] 4.3 mmol/L Normal 3.5-5.1 [facility] Comment on above: Performed By: #### C BC, CMP, PHOS, MG, LIPID #### [facility] [address] Protein [Mass/Vol] 6.7 g/dL Normal 6.1-7.9 [facility] Comment on above: Performed By: #### C BC, CMP, PHOS, MG, LIPID #### [address] Sodium [Moles/Vol] 135 mmol/L Low 136-146 [facility] Comment on above: Performed By: #### C BC, CMP, PHOS, MG, LIPID #### [address] Urea nitrogen [Mass/Vol] 14 mg/dL Normal 9-23 [facility] Comment on above: Performed By: #### C BC, CMP, PHOS, MG, LIPID #### [address] Creatinine and Glomerular fi ltration rate.predicted panel (S/P/Bld)Ordered By: Justin Francisco on 01-03-2022 Creatinine [Mass/Vol] 1.38 mg/dL 0.44-1.03 [facility] Dipstick and Microscopicon 1 Appearance (U) Clear Normal Clear [facility] Comment on above: Order Comment: Name Collection Type:: Clean-Voided Midstream Performed By: #### C BC, CMP, PHOS, MG, LIPID #### [address] Bacteria,Urine 2+ High None Seen [facility] Comment on above: Order Comment: Name Collection Type:: Clean-Voided Midstream Performed By: #### C BC, CMP, PHOS, MG, LIPID #### [address] Bilirubin,Urine Negative Normal Negative [facility] Comment on above: Order Comment: Name Collection Type:: Clean-Voided Midstream Performed By: #### C BC, CMP, PHOS, MG, LIPID #### [facility] [address] [place] [address] [place] Color (U) Yellow Normal Yellow [facility] Comment on above: Order Comment: Name Collection Type:: Clean-Voided Midstream Performed By: #### C BC, CMP, PHOS, MG, LIPID #### [facility] [address] Glucose Ql (U) Normal Normal Normal [facility] Comment on above: Order Comment: Name Collection Type:: Clean-Voided Midstream Performed By: #### C BC, CMP, PHOS, MG, LIPID #### [facility] [address] [place] [address] [place] Hyaline Casts,Urine 0-8 Normal 0-8 [facility] Comment on above: Order Comment: Name Collection Type:: Clean-Voided Midstream Performed By: #### C BC, CMP, PHOS, MG, LIPID #### [facility] [address] [place] [address] [place] Ketones Ql (U) Negative Normal Negative [facility] Comment on above: Order Comment: Name Collection Type:: Clean-Voided Midstream Performed By: #### C BC, CMP, PHOS, MG, LIPID #### [facility] [address] [place] [address] Leukocyte esterase Test strip Ql (U) 2+ High Negative [facility] Comment on above: Order Comment: Name Collection Type:: Clean-Voided Midstream Performed By: #### C BC, CMP, PHOS, MG, LIPID #### [facility] [address] [place] [address] [place] Nitrite,Urine Negative Normal Negative [facility] Comment on above: Order Comment: Name Collection Type:: Clean-Voided Midstream Performed By: #### C BC, CMP, PHOS, MG, LIPID #### [facility] [address] [place] [address] [place] Occult Blood,Urine Negative Normal Negative [facility] Comment on above: Order Comment: Name Collection Type:: Clean-Voided Midstream Result Comment: PERF ORMED BY: [place] [address] PATHOLOGIST DIET TECH ANTONY ELIAS M.D. Performed By: #### C BC, CMP, PHOS, MG, LIPID #### [address] pH (U) 5.5 [pH] Normal 5.0-9.0 [facility] Comment on above: Order Comment: Name Collection Type:: Clean-Voided Midstream Performed By: #### C BC, CMP, PHOS, MG, LIPID #### [address] Protein,Urine Negative Normal Negative [facility] Comment on above: Order Comment: Name Collection Type:: Clean-Voided Midstream Performed By: #### C BC, CMP, PHOS, MG, LIPID #### [address] RBC,Urine None Seen Normal 0-4 [facility] Comment on above: Order Comment: Name Collection Type:: Clean-Voided Midstream Performed By: #### C BC, CMP, PHOS, MG, LIPID #### [address] Specificy [place],Urine 1.012 Normal 1.001-1.030 [facility] Comment on above: Order Comment: Name Collection Type:: Clean-Voided Midstream Performed By: #### C BC, CMP, PHOS, MG, LIPID #### [address] Squamous Epithelial Cell,Urine 3-4 High 0-2 [facility] Comment on above: Order Comment: Name Collection Type:: Clean-Voided Midstream Performed By: #### C BC, CMP, PHOS, MG, LIPID #### [address] Urobilinogen,Urine Normal Normal Normal [facility] Comment on above: Order Comment: Name Collection Type:: Clean-Voided Midstream Performed By: #### C BC, CMP, PHOS, MG, LIPID #### [facility] [address] [place] [address] WBC,Urine 5-9 High 0-4 [facility] Comment on above: Order Comment: Name Collection Type:: Clean-Voided Midstream Performed By: #### C BC, CMP, PHOS, MG, LIPID #### [facility] [address] [place] [address] Yeast,Urine None Seen Normal None Seen [facility] Comment on above: Order Comment: Name Collection Type:: Clean-Voided Midstream Result Comment: PERF ORMED BY: [place] [address] PATHOLOGIST DIET TECH ANTONY ELIAS M.D. Performed By: #### C BC, CMP, PHOS, MG, LIPID #### [facility] [address] [place] [address] Drug Screen,Urineon 01-04-20 Amphetamine Screen,Urine Negative Normal Negative [facility] Comment on above: Performed By: #### C BC, CMP, PHOS, MG, LIPID #### [facility] [address] [place] [address] Barbiturate Screen,Urine Negative Normal Negative [facility] Comment on above: Performed By: #### C BC, CMP, PHOS, MG, LIPID #### [facility] [address] [place] [address] Benzodiazepines Screen,Urine Negative Normal Negative [facility] Comment on above: Performed By: #### C BC, CMP, PHOS, MG, LIPID #### [facility] [address] [place] [address] Cannabinoid Screen,Urine Negative Normal Negative [facility] Comment on above: Result Comment: Thes e are unconfirmed results and should not be used for legal purposes. Drug Cut-Off Concentration: AMPH 1000 ng/mL TERRY 200 ng/mL HONG 200 ng/mL COCM 300 ng/mL OP 300 ng/mL PCP 25 ng/mL THC 20 ng/mL PERFORMED BY: [place] [address] PATHOLOGIST DIET TECH ANTONY ELIAS M.D. Performed By: #### C BC, CMP, PHOS, MG, LIPID #### [facility] [address] Cocaine Screen,Urine Negative Normal Negative [facility] Comment on above: Performed By: #### C BC, CMP, PHOS, MG, LIPID #### [facility] [address] Opiate Screen,Urine Negative Normal Negative [facility] Comment on above: Performed By: #### C BC, CMP, PHOS, MG, LIPID #### [facility] [address] Phencyclidine Screen,Urine Negative Normal Negative [facility] Comment on above: Performed By: #### C BC, CMP, PHOS, MG, LIPID #### [facility] [address] ECG 12 lead ECGon 01-03-2022 ECG 12 lead ECG [facility] [place] [address] [place] [address] Electrocardiograph Report Signed Patient: Kathy Porter MR#: [id number] : 1960 Acct:[id number] Age/Sex: 61 / F ADM Date: 01/03/22 Loc: Room: [address] [place] [address] Type: DIS INOo Attending Dr: Henry Burnett [...] ECGs available Confirmed by Justin Francisco DO ([id number]) on 01/03/2022 7:17:59 PM Referred By: Electronically Signed By:Justin Francisco DO Transcribed By: MUS Signed By Justin Francisco DO 01/03 191 Normal [facility] Eosinophils Auto (Bld) [#/Vo l]Ordered By: Justin Francisco on 01-03-2022 Eosinophils (Bld) [#/Vol] 0.1 10*3/uL 0.0-0.45 [facility] Eosinophils/100 WBC Auto (Bl d)Ordered By: Justin Francisco on 01-03-2022 Eosinophils/100 WBC (Bld) 1.4 % . [facility] Erythrocyte distribution wid th Auto (RBC) [Ratio]Ordered By: Justin Francisco on 01-03-2022 Erythrocyte distribution width (RBC) [Ratio] 15.7 % 11.9-15.3 [facility] Estimated glomerular filtrat ion rate (GFR) non- AmericanOrdered By: Justin Francisco on 01-03-2022 GFR/1.73 sq M.predicted among non-blacks MDRD (S/P/Bld) [Vol rate/Area] 39 mL/Min [facility] Ethyl Alcohol Profileon Ethanol [Mass/Vol] mg/dL Normal [facility] Comment on above: Performed By: #### C MP, T4F, TSH3, CBC, ETOH, JUAN, ACET, VALP #### [facility] [address] [place] [address] Percent Ethanol Not performed Normal [facility] Comment on above: Result Comment: PERF ORMED BY: [address] [place] [address] PATHOLOGIST DIET TECH ANTONY ELIAS M.D. Performed By: #### C MP, T4F, TSH3, CBC, ETOH, JUAN, ACET, VALP #### [facility] [address] Free T4 (Free Thyroxine)on Free T4 [Mass/Vol] 1.10 ng/dL Normal 0.61-1.12 [facility] Comment on above: Performed By: #### C BC, CMP, PHOS, MG, LIPID #### [facility] [address] Globulin Calc (S) [Mass/Vol] Ordered By: Justin Francisco on 01-03-2022 Globulin (S) [Mass/Vol] 3.1 g/dL [facility] Hematocrit Auto (Bld) [Volum e fraction]Ordered By: Justin Francicso on 01-03-2022 Hematocrit (Bld) [Volume fraction] 41.0 % 34.0-46.4 [facility] Ketones Auto test strip (U) [Mass/Vol]Ordered By: Justin Francisco on 01-03-2022 Ketones (U) [Mass/Vol] Negative Negative Fi [facility] - Drug toxicology Ordered By: Justin Francisco on 01-03-2022 Opiates Ql (U) Negative Negative [facility] - Hematology and Cell countsOrdered By: Justin Francisco on 01-03-2022 Nucleated RBC/100 WBC (Bld) [Ratio] 0.1 % 0-0.5 [facility] - UrinalysisOrder ed By: Justin Francisco on 01-03-2022 Hyaline casts LM Ql (Urine sed) 0-8 [LPF] 0-8 [facility] Lymphocytes Auto (Bld) [#/Vo l]Ordered By: Justin Francisco on 01-03-2022 Lymphocytes (Bld) [#/Vol] 1.4 10*3/uL 1.00-4.8 [facility] Lymphocytes/100 WBC Auto (Bl d)Ordered By: Justin Francisco on 01-03-2022 Lymphocytes/100 WBC (Bld) 22.3 % . [facility] MCH Auto (RBC) [Entitic mass ]Ordered By: Justin Francisco on 01-03-2022 MCH (RBC) [Entitic mass] 29.7 pg 24.7-34.3 [facility] MCHC Auto (RBC) [Mass/Vol]Or dered By: Justin Francisco on 01-03-2022 MCHC (RBC) [Mass/Vol] 32.6 g/dL 32.0-35.0 [facility] MCV Auto (RBC) [Entitic vol] Ordered By: Justin Francisco on 01-03-2022 MCV (RBC) [Entitic vol] 91.0 fL 80-100 [facility] Monocytes Auto (Bld) [#/Vol] Ordered By: Justin Francisco on 01-03-2022 Monocytes (Bld) [#/Vol] 0.6 10*3/uL 0.0-0.8 [facility] Monocytes/100 WBC Auto (Bld) Ordered By: Justin Francisco on 01-03-2022 Monocytes/100 WBC (Bld) 8.9 % . [facility] Neutrophils Auto (Bld) [#/Vo l]Ordered By: Justin Francisco on 01-03-2022 Neutrophils (Bld) [#/Vol] 4.3 10*3/uL 1.8-7.7 [facility] Neutrophils/100 WBC Auto (Bl d)Ordered By: Justin Francisco on 01-03-2022 Neutrophils/100 WBC (Bld) 66.8 % . [facility] Nitrite Test strip Ql (U)Ord ered By: Justin Francisco on 01-03-2022 Nitrite Ql (U) Negative Negative [facility] No Panel InformationOrdered By: Justin Francisco on 01-03-2022 Estimated GFR () 47 mL/Min [facility] Comment on above: GFR estimated refere nce range: According to KDOQI guidelines, <60 ml/min/1.73m2 is sufficient to diagnose a patient with chronic kidney disease. Pharmacy Creatinine Clearance (Chem 43.00 [facility] Valproic Acid (Depakene) Level 59.0 ug/mL 50.0-100.0 [facility] Comment on above: Last dose: - SARS Antigen (LFIA) [facility] Phencyclidine Screen Ql (U)O rdered By: Justin Francisco on 01-03-2022 Phencyclidine Ql (U) Negative Negative [facility] Platelet mean volume Auto (B ld) [Entitic vol]Ordered By: Justin Francisco on 01-03-2022 Platelet mean volume (Bld) [Entitic vol] 8.8 fL 6.3-10.7 [facility] Platelets Auto (Bld) [#/Vol] Ordered By: Justin Francisco on 10-04-2022 Platelets (Bld) [#/Vol] 236 10*3/uL 150-450 [facility] Protein Auto test strip (U) [Mass/Vol]Ordered By: Justin Francisco on 01-03-2022 Protein (U) [Mass/Vol] Negative Negative [facility] Protein [Mass/volume] in Ser um or PlasmaOrdered By: Justin Francisco on 01-03-2022 Protein [Mass/Vol] 6.7 g/dL 6.1-7.9 [facility] RBC Auto (Bld) [#/Vol]Ordere d By: Justin Francisco on 01-03-2022 RBC (Bld) [#/Vol] 4.50 10*6/uL 3.60-5.00 [facility] Salicylateon 01-03-2022 Salicylate < 4.0 Low 15.0-30.0 [facility] Comment on above: Result Comment: Phuong ents treated with Sulfasalazine may generate a false high result for Salicylate. Patients treated with Sulfapyridine may generate a false low result for Salicylate. Performed By: #### C MP, T4F, TSH3, CBC, ETOH, JUAN, ACET, VALP #### [facility] [address] Salicylates [Mass/volume] in Serum or PlasmaOrdered By: Justin Francisco on 01-03-2022 Salicylates [Mass/Vol] mg/dL 15.0-30.0 [facility] Comment on above: Patients treated wit h Sulfasalazine may generate a false high result for Salicylate.Patients treated with Sulfapyridine may generate a false low result for Salicylate. Serum or plasma acetaminophe n measurement (mass/volume)Ordered By: Justin Francisco on 01-03-2022 Acetaminophen [Mass/Vol] 25.3 ug/mL 10.0-30.0 [facility] Serum or plasma alanine angeles otransferase measurement without P-5'-P (enzymatic activiOrdered By: Justin Francisco on 01-03-2022 ALT No additional P-5'-P [Catalytic activity/Vol] 14 U/L [facility] Serum or plasma albumin/glob ulin mass ratioOrdered By: Justin Francisco on 01-03-2022 Albumin/Globulin [Mass ratio] 1.2 {ratio} [facility] Serum or plasma alkaline flaquita sphatase measurement (enzymatic activity/volume)Ordered By: Justin Francisco on 01-03-2022 ALP [Catalytic activity/Vol] 40 U/L 32-92 [facility] Serum or plasma anion gap de terminationOrdered By: Justin Francisco on 01-03-2022 Anion gap [Moles/Vol] 16.7 mmol/L 6.0-15.0 [facility] Serum or plasma aspartate am inotransferase measurement (enzymatic activity/volume)Ordered By: Justin Francisco on 01-03-2022 AST [Catalytic activity/Vol] 18 U/L 10- [facility] Serum or plasma calcium sarah urement (mass/volume)Ordered By: Justin Francisco on 01-03-2022 Calcium [Mass/Vol] 9.5 mg/dL 8.2-10.2 [facility] Serum or plasma chloride deep surement (moles/volume)Ordered By: Justin Francisco on 01-03-2022 Chloride [Moles/Vol] 99 mmol/L 95-114 [facility] Serum or plasma ethanol sarah urement (mass/volume)Ordered By: Justin Francisco on 01-03-2022 Ethanol [Mass/Vol] mg/dL [facility] Ethanol [Mass/Vol] TNP [facility] Comment on above: Test not performed Serum or plasma glucose sarah urement (mass/volume)Ordered By: Justin Francisco on 01-03-2022 Glucose [Mass/Vol] 137 mg/dL 70-100 [facility] Comment on above: ADA recommended refe rence rangeRandom Glucose Reference Range is dependent on time and content of last meal. Glucose of more than 200 mg/dL in a nonstressed, ambulatory subject supports the diagnosis of Diabetes Mellitus. Serum or plasma potassium me asurement (moles/volume)Ordered By: Justin Francisco on 01-03-2022 Potassium [Moles/Vol] 4.3 mmol/L 3.5-5.1 [facility] Serum or plasma sodium measu rement (moles/volume)Ordered By: Justin Francisco on 01-03-2022 Sodium [Moles/Vol] 135 mmol/L 136-146 [facility] Serum or plasma total biliru bin measurement (mass/volume)Ordered By: Justin Francisco on 01-03-2022 Bilirubin [Mass/Vol] 0.6 mg/dL 0.3-1.2 [facility] Serum or plasma total carbon dioxide measurement (moles/volume)Ordered By: Justin Francisco on 01-03-2022 CO2 [Moles/Vol] 23.6 mmol/L 22.0-30.0 [facility] Serum or plasma urea nitroge n measurement (mass/volume)Ordered By: Justin Francisco on 01-03-2022 Urea nitrogen [Mass/Vol] 14 mg/dL 12-23 [facility] Delores Ag Negativeon 01-04-20 Delores Ag Negative Negative Normal Negative [facility] Comment on above: Result Comment: This is a duplicate Delores SARS Antigen (MARLINE) result to be used for statistical tracking purpose only. PERFORMED BY: [place] [address] PATHOLOGIST DIET TECH ANTONY ELIAS M.D. Performed By: #### C BC, CMP, PHOS, MG, LIPID #### [address] Specific gravity Auto test s trip (U) [Rel density]Ordered By: Justin Francisco on 01-03-2022 Specific gravity (U) [Rel density] 1.012 1.001-1.030 [facility] Squamous epithelial cells de tection in urine sediment by light microscopyOrdered By: Justin Francisco on 01-03-2022 Epithelial cells.squamous LM Ql (Urine sed) 3-4 [HPF] 0-2 [facility] TSH DL <= 0.005 mIU/L QnOrde red By: Justin Francisco on 01-03-2022 TSH Qn 4.71 m[IU]/L 0.45-5.33 [facility] Thyroid Stimulating Hormoneo n 01-03-2022 TSH Qn 4.71 m[IU]/L Normal 0.45-5.33 [facility] Comment on above: Result Comment: PERF ORMED BY: [place] [address] PATHOLOGIST DIET TECH ANTONY ELIAS M.D. Performed By: #### C BC, CMP, PHOS, MG, LIPID #### [facility] [address] Thyroxine (T4) free [Mass/vo lume] in Serum or PlasmaOrdered By: Justin Francisco on 01-03-2022 Free T4 [Mass/Vol] 1.10 ng/dL 0.61-1.12 [facility] Urine Cultureon 01-03-2022 Bacteria identified Cx Nom (U) ORGANISM: Escherichia coli (O:ESCCOL) [place] Count >100,000 Aerobic AHMET Charge (NUC86) ---- [...] RESISTANT TO ALL B-LACTAM DRUGS. PERFORMED BY: [facility] [address] PATHOLOGIST DIET TECH ANTONY ELIAS M.D. Normal [facility] Comment on above: Performed By: #### C BC, CMP, PHOS, MG, LIPID #### [facility] [address] [place] [address] [facility] Urine bacteria detection by automated methodOrdered By: Justin Francisco on 01-03-2022 Bacteria Auto Ql (U) 2+ None Seen [facility] Urine clarity by refractomet ry automatedOrdered By: Justin Francisco on 01-03-2022 Clarity Refractometry automated (U) Clear Clear [facility] Urine cocaine detectionOrder ed By: Justin Francisco on 01-03-2022 Cocaine Ql (U) Negative Negative [facility] Urine glucose measurement by automated test strip (mass/volume)Ordered By: Justin Francisco on 01-03-2022 Glucose Auto test strip (U) [Mass/Vol] Normal mg/dL Normal [facility] Urine hemoglobin detection b y automated test stripOrdered By: Justin Francisco on 01-03-2022 Hemoglobin Auto test strip Ql (U) Negative Negative [facility] Urine leukocyte esterase det ection by automated test stripOrdered By: Justin Francisco on 01-03-2022 Leukocyte esterase Auto test strip Ql (U) 2+ Negative [facility] Urobilinogen Auto test strip (U) [Mass/Vol]Ordered By: Jutsin Francisco on 01-03-2022 Urobilinogen (U) [Mass/Vol] Normal mg/dL Normal [facility] Valproic Acid (in house)on 1 Valproic Acid (in house) 59.0 ug/mL Normal 50.0-100.0 [facility] Comment on above: Result Comment: Last dose: - PERFORMED BY: [place] [address] PATHOLOGIST DIET TECH ANTONY ELIAS M.D. Performed By: #### C MP, T4F, TSH3, CBC, ETOH, JUAN, ACET, VALP #### [facility] [address] [place] [address] [facility] Yeast detection in urine sed iment by light microscopyOrdered By: Justin Francisco on 01-03-2022 Yeast LM Ql (Urine sed) None seen [HPF] None Se en [facility] pH Auto test strip (U)Ordere d By: Justin Francisco on 01-03-2022 pH (U) 5.5 [pH] 5.0-9.0 [facility] CBC AUTO DIFFon 10-27-2021 BASO # 0.1 103/ul Normal 0.0-0.1 [facility] Comment on above: Performed By: #### C BC ####[facility] [address] [place], [place] [address]Dr. Julio Goddard Basophils/100 WBC (Bld) 0.6 % Normal 0.2-2.0 [facility] Comment on above: Performed By: #### C BC ####[facility] [address] [place], [place] [address]Dr. Julio Goddard EO # 0.2 103/ul Normal 0.0-0.7 [facility] Comment on above: Performed By: #### C BC ####[facility] [address] [place], [place] [address]Dr. Julio Goddard Eosinophils/100 WBC (Bld) 2.4 % Normal 0.9-7.0 [facility] Comment on above: Performed By: #### C BC ####[facility] [address] [place], [place] [address]Dr. Julio Goddard Erythrocyte distribution width (RBC) [Ratio] 15.0 % Normal 11.0-15.0 [facility] Comment on above: Performed By: #### C BC ####[facility] [address] [place], [place] [address]Dr. Julio Goddard Hematocrit (Bld) [Volume fraction] 37.4 % Normal 36.0-48.0 [facility] Comment on above: Performed By: #### C BC ####[facility] [address] [place], [place] [address]Dr. Julio Goddard Hemoglobin (Bld) [Mass/Vol] 12.2 g/dL Normal 12.0-16.0 [facility] Comment on above: Performed By: #### C BC ####[facility] [address] [place] [id number]. Hiralharesh Rupesh IG # 0.04 10e3/ul Critically high 0.00-0.03 [facility] Comment on above: Performed By: #### C BC ####[facility] [address] [place] [id number]. Julio Goddard IG % 0.4 % Normal 0.0-0.5 [facility] Comment on above: Performed By: #### C BC ####[facility] [address] [place] [id number]. Julio Goddard LYMPH # 2.3 103/ul Normal 1.2-3.8 [facility] Comment on above: Performed By: #### C BC ####[facility] [address] [place] [address]Dr. Julio Goddard Lymphocytes/100 WBC (Bld) 23.6 % Normal 20.5-60.0 [facility] Comment on above: Performed By: #### C BC ####[facility] [address] [place] [id number]. Julio Goddard MANUAL DIFF REQ NO Normal [facility] Comment on above: Performed By: #### C BC ####[facility] [address] [place] [address]Dr. Julio Goddard MCH (RBC) [Entitic mass] 29.3 pg Normal 26.7-34.0 [facility] Comment on above: Performed By: #### C BC ####[facility] [address] [place] [address]Dr. Julio Goddard MCHC (RBC) [Mass/Vol] 32.6 g/dL Normal 29.9-35.2 [facility] Comment on above: Performed By: #### C BC ####[facility] [address] [place] [address]Dr. Julio Goddard MCV (RBC) [Entitic vol] 89.7 fL Normal 81.0-99.0 [facility] Comment on above: Performed By: #### C BC ####[facility] [address] [place] [address]Dr. Julio Goddard MONO # 0.6 103/ul Normal 0.3-0.8 [facility] Comment on above: Performed By: #### C BC ####[facility] [address] [place] [address]Dr. Julio Goddard Monocytes/100 WBC (Bld) 5.5 % Normal 1.7-12.0 [facility] Comment on above: Performed By: #### C BC ####[facility] [address] [place] [address]Dr. Julio Goddard NEUT # 6.7 103/ul Critically high 1.4-6.5 [facility] Comment on above: Performed By: #### C BC ####[facility] [address] [place] [address]Dr. Julio Goddard Neutrophils/100 WBC (Bld) 67.5 % Normal 43.0-75.0 [facility] Comment on above: Performed By: #### C BC ####[facility] [address] [place] [address]Dr. Julio Goddard Platelet mean volume (Bld) [Entitic vol] 10.2 fL Normal 9.5-13.5 [facility] Comment on above: Performed By: #### C BC ####[facility] [address] [place] [address]Dr. Julio Goddard PLT 296 103/ul Normal 150-450 [facility] Comment on above: Performed By: #### C BC ####[facility] [address] [place] [id number]. Julio Goddard RBC 4.17 106/ul Critically low 4.20-5.40 [facility] Comment on above: Performed By: #### C BC ####[facility] [address] [place] [id number]. Julio Goddard WBC 9.9 103/ul Normal 4.0-11.0 [facility] Comment on above: Performed By: #### C BC ####[facility] [address] [place], [place] [address]Wd. Julio Goddard LIPID PROFILEon 10-27-2021 CHOL-HDL RATIO NORM SEE BELOW Normal [facility] Comment on above: Result Comment: 3.3 - 4.4 LOW RISK 4.4 - 7.1 AVERAGE RISK 7.1 - 11.0 MODERATE RISK >11.0 HIGH RISK Performed By: #### C MP, LIPID ####[facility] [address] [place], [place] [address]Fg. Julio Goddard Cholesterol [Mass/Vol] 148 mg/dL Normal <=200 [facility] Comment on above: Performed By: #### C MP, LIPID ####[facility] [address] [place] [id number]. Julio Goddard Cholesterol in HDL [Mass/Vol] 60 mg/dL Normal 40-60 [facility] Comment on above: Performed By: #### C MP, LIPID ####[facility] [address] [place] [id number]. Julio Goddard Cholesterol in LDL [Mass/Vol] 72.2 mg/dL Normal [facility] Comment on above: Performed By: #### C MP, LIPID ####[facility] [address] [place], [place] [address]Zj. Julio Goddard Cholesterol.total/Tila sterol in HDL [Mass ratio] 2.5 {ratio} Normal [facility] Comment on above: Performed By: #### C MP, LIPID ####[facility] [address] [place] [id number]. Julio Goddard HDL NORMAL > or = 60 mg/dl - LO W CARDIOVASCULAR RISK <40 mg/dl - HIGH CARDIOVASCULAR RISK Normal [facility] Comment on above: Performed By: #### C MP, LIPID ####[facility] [address] [place] [id number]. Julio Goddard LDL CALC NORMAL SEE BELOW Normal [facility] Comment on above: Result Comment: <100 mg/dl OPTIMAL 100 - 129 mg/dl NEAR OR ABOVE OPTIMAL 130 - 159 mg/dl BORDERLINE HIGH 160 - 189 mg/dl HIGH >190 mg/dl VERY HIGH Performed By: #### C MP, LIPID ####[facility] [address] [place], [place] [address]Dr. Julio Goddard Triglyceride [Mass/Vol] 79 mg/dL Normal <=150 T [facility] Comment on above: Performed By: #### C MP, LIPID ####[facility] [address] [place], [place] [address]QsDr. Julio Goddard VLDL CALC 15.8 mg/dL Normal [facility] Comment on above: Performed By: #### C MP, LIPID ####[facility] [address] [place], [place] [address]IpDr. Juloi Goddard PROF 14(COMP METB)on 022 Albumin [Mass/Vol] 3.7 g/dL Normal 3.4-5.0 [facility] Comment on above: Performed By: #### C MP, LIPID #### [facility] [address] [place] [address] Dr. Julio Goddard Albumin/Globulin [Mass ratio] 1.0 {ratio} Normal [facility] Comment on above: Performed By: #### C MP, LIPID #### [facility] [address] [place] [address] Dr. Julio Goddard ALP [Catalytic activity/Vol] 53 U/L Normal 46-116 [facility] Comment on above: Performed By: #### C MP, LIPID #### [facility] [address] [place] [address] [address] Julio Goddard ALT [Catalytic activity/Vol] 15 U/L Normal 14-59 [facility] Comment on above: Performed By: #### C MP, LIPID #### [facility] [address] [place] [address] [address] Julio Goddard Anion gap [Moles/Vol] 16.1 mmol/L Normal [facility] Comment on above: Performed By: #### C MP, LIPID #### [facility] [address] [place] [address] [address] Julio Goddard AST [Catalytic activity/Vol] 8 U/L Critically low 15-37 [facility] Comment on above: Performed By: #### C MP, LIPID #### [facility] [address] [place] [address] [address] Julio Goddard Bilirubin [Mass/Vol] 0.5 mg/dL Normal 0.2-1.0 [facility] Comment on above: Performed By: #### C MP, LIPID #### [facility] [address] [place] [address] [address] Julio Goddard Calcium [Mass/Vol] 9.1 mg/dL Normal 8.5-10.1 [facility] Comment on above: Performed By: #### C MP, LIPID #### [facility] [address] [place] [address] [address] Julio Goddard Chloride [Moles/Vol] 106 mmol/L Normal 98-107 [facility] Comment on above: Performed By: #### C MP, LIPID #### [facility] [address] [place] [address] [address] Julio Goddard CO2 [Moles/Vol] 24.1 mmol/L Normal 21.0-32.0 [facility] Comment on above: Performed By: #### C MP, LIPID #### [facility] [address] [place] [address] [address] Julio Goddard Creatinine [Mass/Vol] 1.40 mg/dL Critically high 0.55-1.02 [facility] Comment on above: Performed By: #### C MP, LIPID #### [facility] [address] [place] [address] [address] Julio Goddard EGFR-AF GREEK 47 mL/min/1.73m2 Critically low >=60 [facility] Comment on above: Performed By: #### C MP, LIPID #### [facility] [address] [place] [address] [address] Julio Goddard EGFR-NON AF GREEK 39 mL/min/1.73m2 Critically low >=60 [facility] Comment on above: Performed By: #### C MP, LIPID #### [facility] [address] [place] [address] [address] Julio Goddard Globulin (S) [Mass/Vol] 3.6 g/dL Normal T [facility] Comment on above: Performed By: #### C MP, LIPID #### [facility] [address] [place] [address] Dr. Julio Goddard Glucose [Mass/Vol] 95 mg/dL Normal 74-106 [facility] Comment on above: Performed By: #### C MP, LIPID #### [facility] [address] [place] [address] Dr. Julio Goddard Potassium [Moles/Vol] 4.2 mmol/L Normal 3.5-5.1 [facility] Comment on above: Performed By: #### C MP, LIPID #### [facility] [address] [place] [address] Dr. Julio Goddard Protein [Mass/Vol] 7.3 g/dL Normal 6.4-8.2 [facility] Comment on above: Performed By: #### C MP, LIPID #### [facility] [address] [place] [address] Dr. Julio Goddard Sodium [Moles/Vol] 142 mmol/L Normal 136-145 [facility] Comment on above: Performed By: #### C MP, LIPID #### [facility] [address] [place] [address] Dr. Julio Goddard Urea nitrogen [Mass/Vol] 18.0 mg/dL Normal 7.0-18.0 [facility] Comment on above: Performed By: #### C MP, LIPID #### [facility] [address] [place] [address] Dr. Julio Goddard Urea nitrogen/Creatinine [Mass ratio] 12.9 mg/mg Normal [facility] Comment on above: Performed By: #### C MP, LIPID #### [facility] [address] [place] [address] Dr. Julio Goddard INSULINon 03-23-2021 Insulin 10.0 uIU/mL Normal 2.6-24.9 [facility] Comment on above: Performed By: #### I NSULIN #### [facility] [address] [place] [address] Dr. Julio Goddard VIT D 25-OH LABCORPon 2020 Vitamin D, 25-Hydroxy 11.8 ng/mL Critically low 30.0-100.0 [facility] Comment on above: Result Comment: Swati min D deficiency has been defined by the [employer] and an Endocrine Society practice guideline as a level of serum 25-OH vitamin D less than 20 ng/mL (1,2). The Endocrine Society went on to further define vitamin D insufficiency as a level between 21 and 29 ng/mL (2). 1. IOM ([employer]). 2010. Dietary reference intakes for calcium and D. Gerardo [place]: The National Academies Press. 2. Matt MF, Wilma [place], Shiraz ELIZONDO, et al. Evaluation, treatment, and prevention of vitamin D deficiency: an Endocrine Society clinical practice guideline. JCEM. 2010; 96(7):1911-30. Performed By: #### V ITADLC ####[facility] [address] [place] [address]Dr. Julio Goddard CBC AUTO DIFFon 03-22-2021 BASO # 0.1 103/ul Normal 0.0-0.1 [facility] Comment on above: Performed By: #### C BC #### [facility] [address] [place] [address] [address] Julio Goddard Basophils/100 WBC (Bld) 0.8 % Normal 0.2-2.0 [facility] Comment on above: Performed By: #### C BC #### [facility] [address] [address] [address] Julio Goddard EO # 0.2 103/ul Normal 0.0-0.7 [facility] Comment on above: Performed By: #### C BC #### [facility] [address] [address] [address] Julio Goddard Eosinophils/100 WBC (Bld) 2.6 % Normal 0.9-7.0 [facility] Comment on above: Performed By: #### C BC #### [facility] [address] [address] [address] Julio Goddard Erythrocyte distribution width (RBC) [Ratio] 14.2 % Normal 11.0-15.0 [facility] Comment on above: Performed By: #### C BC #### [facility] [address] [place] [address] Dr. Julio Goddard Hematocrit (Bld) [Volume fraction] 37.4 % Normal 36.0-48.0 [facility] Comment on above: Performed By: #### C BC #### [facility] [address] [place] [address] Dr. Julio Goddard Hemoglobin (Bld) [Mass/Vol] 11.9 g/dL Critically low 12.0-16.0 [facility] Comment on above: Performed By: #### C BC #### [facility] [address] [place] [address] Dr. Julio Goddard IG # 0.02 10e3/ul Normal 0.00-0.03 [facility] Comment on above: Performed By: #### C BC #### [facility] [address] [place] [address] Dr. Julio Goddard IG % 0.3 % Normal 0.0-0.5 [facility] Comment on above: Performed By: #### C BC #### [facility] [address] [place] [address] Dr. Julio Goddard LYMPH # 1.8 103/ul Normal 1.2-3.8 [facility] Comment on above: Performed By: #### C BC #### [facility] [address] [place] [address] Dr. Julio Goddard Lymphocytes/100 WBC (Bld) 27.6 % Normal 20.5-60.0 [facility] Comment on above: Performed By: #### C BC #### [facility] [address] [place] [address] Dr. Julio Goddard MANUAL DIFF REQ NO Normal [facility] Comment on above: Performed By: #### C BC #### [facility] [address] [place] [address] Dr. Julio Goddard MCH (RBC) [Entitic mass] 29.1 pg Normal 26.7-34.0 [facility] Comment on above: Performed By: #### C BC #### [facility] [address] [address] [address] Julio Goddard MCHC (RBC) [Mass/Vol] 31.8 g/dL Normal 29.9-35.2 [facility] Comment on above: Performed By: #### C BC #### [facility] [address] [address] [address] Julio Goddard MCV (RBC) [Entitic vol] 91.4 fL Normal 81.0-99.0 [facility] Comment on above: Performed By: #### C BC #### [facility] [address] [place] [address] Dr. Julio Goddard MONO # 0.6 103/ul Normal 0.3-0.8 [facility] Comment on above: Performed By: #### C BC #### [facility] [address] [place] [address] Dr. Julio Goddard Monocytes/100 WBC (Bld) 8.7 % Normal 1.7-12.0 [facility] Comment on above: Performed By: #### C BC #### [facility] [address] [place] [address] Dr. Julio Goddard NEUT # 3.9 103/ul Normal 1.4-6.5 [facility] Comment on above: Performed By: #### C BC #### [facility] [address] [place] [address] Dr. Julio Goddard Neutrophils/100 WBC (Bld) 60.0 % Normal 43.0-75.0 [facility] Comment on above: Performed By: #### C BC #### [facility] [address] [place] [address] Dr. Julio Goddard Platelet mean volume (Bld) [Entitic vol] 10.1 fL Normal 9.5-13.5 [facility] Comment on above: Performed By: #### C BC #### [facility] [address] [address] [address] Julio Goddard PLT 263 103/ul Normal 150-450 [facility] Comment on above: Performed By: #### C BC #### [facility] [address] [address] [address] Julio Goddard RBC 4.09 106/ul Critically low 4.20-5.40 [facility] Comment on above: Performed By: #### C BC #### [facility] [address] [address] [address] Julio Goddard WBC 6.5 103/ul Normal 4.0-11.0 [facility] Comment on above: Performed By: #### C BC #### [facility] [address] [address] [address] Julio Goddard FREE THYROXINE INDEX T7on FTI 3.50 Normal [facility] Comment on above: Performed By: #### C MP, T7, LIPID, TSH #### [facility] [address] [address] [address] Julio Goddard T3U 35.0 % Normal 23.5-40.5 [facility] Comment on above: Performed By: #### C MP, T7, LIPID, TSH #### [facility] [address] [address] [address] Julio Goddard T4 [Mass/Vol] 10.00 ug/dL Normal 5.53-11.00 [facility] Comment on above: Performed By: #### C MP, T7, LIPID, TSH #### [facility] [address] [address] [address] Julio Goddard GLYCOHEMOGLOBIN A1Con 2020 ADA RECOMMENDATION ADA THERAPEUTIC TARGET 6.0 - 7.0 ACTION SUGGESTED > 7.0 Normal [facility] Comment on above: Performed By: #### A 1C #### [facility] [address] [address] [address] Julio Goddard Glucose [Mass/Vol] 103 mg/dL Normal [facility] Comment on above: Performed By: #### A 1C #### [facility] [address] [address] [address] Julio Goddard HbA1c (Bld) [Mass fraction] 5.2 % Normal <=6.0 [facility] Comment on above: Performed By: #### A 1C #### [facility] [address] [address] [address] Julio Goddard IRONon 03-22-2021 Iron [Mass/Vol] 55.0 ug/dL Normal 37.0-170.0 [facility] Comment on above: Performed By: #### I MARIA E ####[facility] [address] [place], [place] [address]KiDr. Julio Goddard LIPID PROFILEon 03-22-2021 CHOL-HDL RATIO NORM SEE BELOW Normal [facility] Comment on above: Result Comment: 3.3 - 4.4 LOW RISK 4.4 - 7.1 AVERAGE RISK 7.1 - 11.0 MODERATE RISK >11.0 HIGH RISK Performed By: #### C MP, T7, LIPID, TSH #### [facility] [address] [address] [address] Julio Goddard Cholesterol [Mass/Vol] 163 mg/dL Normal <=200 Th [facility] Comment on above: Performed By: #### C MP, T7, LIPID, TSH #### [facility] [address] [address] [address] Julio Goddard Cholesterol in HDL [Mass/Vol] 65 mg/dL Normal [facility] Comment on above: Performed By: #### C MP, T7, LIPID, TSH #### [facility] [address] [address] [address] Julio Goddard Cholesterol in LDL [Mass/Vol] 80.8 mg/dL Normal [facility] Comment on above: Performed By: #### C MP, T7, LIPID, TSH #### [facility] [address] [address] [address] Julio Goddard Cholesterol.total/Tila sterol in HDL [Mass ratio] 2.5 {ratio} Normal [facility] Comment on above: Performed By: #### C MP, T7, LIPID, TSH #### [facility] [address] [address] [address] Julio Goddard HDL NORMAL > or = 60 mg/dl - LO W CARDIOVASCULAR RISK <40 mg/dl - HIGH CARDIOVASCULAR RISK Normal [facility] Comment on above: Performed By: #### C MP, T7, LIPID, TSH #### [facility] [address] [address] [address] Julio Goddard LDL CALC NORMAL SEE BELOW Normal [facility] Comment on above: Result Comment: <100 mg/dl OPTIMAL 100 - 129 mg/dl NEAR OR ABOVE OPTIMAL 130 - 159 mg/dl BORDERLINE HIGH 160 - 189 mg/dl HIGH >190 mg/dl VERY HIGH Performed By: #### C MP, T7, LIPID, TSH #### [facility] [address] [address] [address] Julio Goddard Triglyceride [Mass/Vol] 86 mg/dL Normal <=150 T [facility] Comment on above: Performed By: #### C MP, T7, LIPID, TSH #### [facility] [address] [address] [address] Julio Goddard VLDL CALC 17.2 mg/dL Normal [facility] Comment on above: Performed By: #### C MP, T7, LIPID, TSH #### [facility] [address] [address] [address] Julio Goddard PROF 14(COMP METB)on 021 Albumin [Mass/Vol] 3.5 g/dL Normal 3.5-5.0 [facility] Comment on above: Performed By: #### C MP, T7, LIPID, TSH #### [facility] [address] [address] [address] Julio Goddard Albumin/Globulin [Mass ratio] 1.0 {ratio} Normal [facility] Comment on above: Performed By: #### C MP, T7, LIPID, TSH #### [facility] [address] [address] [address] Julio Goddard ALP [Catalytic activity/Vol] 58 U/L Normal 38-126 [facility] Comment on above: Performed By: #### C MP, T7, LIPID, TSH #### [facility] [address] [address] [address] Julio Goddard ALT [Catalytic activity/Vol] 16 U/L Normal 9-52 [facility] Comment on above: Performed By: #### C MP, T7, LIPID, TSH #### [facility] [address] [address] [address] Julio Goddard Anion gap [Moles/Vol] 13.0 mmol/L Normal Th [facility] Comment on above: Performed By: #### C MP, T7, LIPID, TSH #### [facility] [address] [address] [address] Julio Goddard AST [Catalytic activity/Vol] 10 U/L Critically low 14-36 [facility] Comment on above: Performed By: #### C MP, T7, LIPID, TSH #### [facility] [address] [place] [address] Dr. Julio Goddard Bilirubin [Mass/Vol] 0.6 mg/dL Normal 0.2-1.3 [facility] Comment on above: Performed By: #### C MP, T7, LIPID, TSH #### [facility] [address] [place] [address] Dr. Julio Goddard Calcium [Mass/Vol] 9.4 mg/dL Normal 8.4-10.2 [facility] Comment on above: Performed By: #### C MP, T7, LIPID, TSH #### [facility] [address] [place] [address] Dr. Julio Goddard Chloride [Moles/Vol] 105 mmol/L Normal 98-107 [facility] Comment on above: Performed By: #### C MP, T7, LIPID, TSH #### [facility] [address] [address] [address] Julio Goddard CO2 [Moles/Vol] 28.3 mmol/L Normal 22.0-30.0 [facility] Comment on above: Performed By: #### C MP, T7, LIPID, TSH #### [facility] [address] [place] [address] Dr. Julio Goddard Creatinine [Mass/Vol] 1.37 mg/dL Critically high 0.52-1.04 [facility] Comment on above: Performed By: #### C MP, T7, LIPID, TSH #### [facility] [address] [address] [address] Julio Goddard EGFR-AF GREEK 48 mL/min/1.73m2 Critically low >=60 [facility] Comment on above: Performed By: #### C MP, T7, LIPID, TSH #### [facility] [address] [address] [address] Julio Goddard EGFR-NON AF GREEK 40 mL/min/1.73m2 Critically low >=60 [facility] Comment on above: Performed By: #### C MP, T7, LIPID, TSH #### [facility] [address] [address] [address] Julio Goddard Globulin (S) [Mass/Vol] 3.5 g/dL Normal [facility] Comment on above: Performed By: #### C MP, T7, LIPID, TSH #### [facility] [address] [place] [address] Dr. Julio Goddard Glucose [Mass/Vol] 110 mg/dL Critically high 74-106 [facility] Comment on above: Performed By: #### C MP, T7, LIPID, TSH #### [facility] [address] [address] [address] Julio Goddard Potassium [Moles/Vol] 4.3 mmol/L Normal 3.4-5.0 [facility] Comment on above: Performed By: #### C MP, T7, LIPID, TSH #### [facility] [address] [address] [address] Julio Goddard Protein [Mass/Vol] 7.0 g/dL Normal 6.1-8.2 [facility] Comment on above: Performed By: #### C MP, T7, LIPID, TSH #### [facility] [address] [address] [address] Julio Goddard Sodium [Moles/Vol] 142 mmol/L Normal 137-145 [facility] Comment on above: Performed By: #### C MP, T7, LIPID, TSH #### [facility] [address] [address] [address] Julio Goddard Urea nitrogen [Mass/Vol] 13.0 mg/dL Normal 7.0-17.0 [facility] Comment on above: Performed By: #### C MP, T7, LIPID, TSH #### [facility] [address] [address] [address] Julio Goddard Urea nitrogen/Creatinine [Mass ratio] 9.5 mg/mg Normal [facility] Comment on above: Performed By: #### C MP, T7, LIPID, TSH #### [facility] [address], [place] [address] Dr. Julio Goddard TSHon 03-22-2021 TSH 2.734 uIU/mL Normal 0.470-4.[address] [facility] Comment on above: Performed By: #### C MP, T7, LIPID, TSH #### [facility] [address] [place] [address] Dr. Julio Goddard TSH RANGE SEE BELOW Normal [facility] Comment on above: Result Comment: <0.3 4 UIU/ml HYPERTHYROID 0.34-5.60 UIU/ml EUTHYROID >5.60 UIU/ml HYPOTHYROID Performed By: #### C MP, T7, LIPID, TSH #### [facility] [address], [place] [address] Dr. Julio Goddard Vital Signs Date Time Vital Sign Value Performing Clinician Facility 02-12-2024 08:50-0500 Body height 157.5 cm Angelo De La Cruz MD Work Phone: [facility] 02-12-2024 08:50-0500 Body mass index (BMI) [Ratio] 34.75 kg/m2 Angelo De La Cruz MD Work Phone: [facility] 02-12-2024 08:50-0500 Body weight 86.18 kg Angelo De La Cruz MD Work Phone: [facility] 02-12-2024 08:50-0500 Diastolic blood pressure 76 mm[Hg] Angelo De La Cruz MD Work Phone: [facility] 02-12-2024 08:50-0500 Systolic blood pressure 119 mm[Hg] Angelo De La Cruz MD Work Phone: [facility] 02-05-2024 10:32-0500 Body height 157.5 cm Angelo De La Cruz MD Work Phone: [facility] 02-05-2024 10:32-0500 Body mass index (BMI) [Ratio] 34.75 kg/m2 Angelo De La Cruz MD Work Phone: [facility] 02-05-2024 10:32-0500 Body weight 86.18 kg Angelo De La Cruz MD Work Phone: [facility] 02-05-2024 10:32-0500 Diastolic blood pressure 81 mm[Hg] Angelo De La Cruz MD Work Phone: [facility] 02-05-2024 10:32-0500 Systolic blood pressure 121 mm[Hg] Angelo De La Cruz MD Work Phone: [facility] 11-27-2023 14:51-0400 Blood Pressure Location OXANA DEVEN [facility] 11-27-2023 14:51-0400 Diastolic blood pressure 96 mm[Hg] OXANA DEVEN [facility] 11-27-2023 14:51-0400 Heart rate 66 /min OXANA DEVEN [facility] 11-27-2023 14:51-0400 Systolic blood pressure 144 mm[Hg] OXANA DEVEN [facility] 08-21-2023 09:39-0400 Blood Pressure Location OXANA DEVEN [facility] 08-21-2023 09:39-0400 Diastolic blood pressure 63 mm[Hg] OXANA DEVEN [facility] 08-21-2023 09:39-0400 Heart rate 74 /min OXANA DEVEN [facility] 08-21-2023 09:39-0400 Respiratory rate 19 /min OXANA CARVALHO [facility] 08-21-2023 09:39-0400 Systolic blood pressure 108 mm[Hg] OXANA CARVALHO [facility] 05-30-2022 13:47-0500 Body height 157.5 cm Scott Mcallister MD Work Phone: [facility] 05-30-2022 13:47-0500 Body mass index (BMI) [Ratio] 32.74 kg/m2 Scott Mcallister MD Work Phone: [facility] 05-30-2022 13:47-0500 Body weight 81.19 kg Scott Mcallister MD Work Phone: [facility] 05-30-2022 13:47-0500 Diastolic blood pressure 84 mm[Hg] Scott Mcallister MD Work Phone: [facility] 05-30-2022 13:47-0500 Heart rate 76 /min Scott Mcallister MD Work Phone: [facility] 05-30-2022 13:47-0500 Respiratory rate 16 /min Scott Mcallister MD Work Phone: [facility] 05-30-2022 13:47-0500 SaO2% (BldA) [Mass fraction] 97 % Scott Mcallister MD Work Phone: [facility] 05-30-2022 13:47-0500 Systolic blood pressure 129 mm[Hg] Scott Mcallister MD Work Phone: [facility] 02-28-2022 12:48-0500 Body height 157.5 cm Scott Mcallister MD Work Phone: [facility] 02-28-2022 12:48-0500 Body mass index (BMI) [Ratio] 32.74 kg/m2 Scott Mcallister MD Work Phone: [facility] 02-28-2022 12:48-0500 Body weight 81.19 kg Scott Mcallister MD Work Phone: [facility] 02-28-2022 12:48-0500 Diastolic blood pressure 83 mm[Hg] Scott Mcallister MD Work Phone: [facility] 02-28-2022 12:48-0500 Heart rate 78 /min Scott Mcallister MD Work Phone: [facility] 02-28-2022 12:48-0500 Respiratory rate 18 /min Scott Mcallister MD Work Phone: [facility] 02-28-2022 12:48-0500 SaO2% (BldA) [Mass fraction] 95 % Scott Mcallister MD Work Phone: [facility] 02-28-2022 12:48-0500 Systolic blood pressure 132 mm[Hg] Scott Mcallister MD Work Phone: [facility] 01-05-2022 11:19-0400 Diastolic blood pressure 79 mm[Hg] DO Justin Francisco Work Phone: [facility] 01-05-2022 11:19-0400 Heart rate 75 /min DO Justin Francisco Work Phone: [facility] 01-05-2022 11:19-0400 Respiratory rate 18 /min DO Justin Francisco Work Phone: [facility] 01-05-2022 11:19-0400 SaO2% (BldA) [Mass fraction] 97 % DO Justin Francisco Work Phone: [facility] 01-05-2022 11:19-0400 Systolic blood pressure 126 mm[Hg] DO Justin Francisco Work Phone: [facility] 01-05-2022 08:17-0400 Body temperature 97.5 [degF] DO Justinjosef Francisco Work Phone: [facility] 01-05-2022 04:44-0400 Body weight 79.8 kg DO Justin Nolan Work Phone: [facility] 01-04-2022 11:34-0400 Body height 157.48 cm DO Justinjosef Francisco Work Phone: [facility] 01-03-2022 17:04-0400 Diastolic blood pressure 110 mm[Hg] DO Justin Nolan Work Phone: [facility] 01-03-2022 17:04-0400 Heart rate 88 /min DO Justin Francisco Work Phone: [facility] 01-03-2022 17:04-0400 Respiratory rate 20 /min DO Justin Francisco Work Phone: [facility] 01-03-2022 17:04-0400 SaO2% (BldA) [Mass fraction] 97 % DO Justin Francisco Work Phone: [facility] 01-03-2022 17:04-0400 Systolic blood pressure 180 mm[Hg] DO Justin Francisco Work Phone: [facility] 01-03-2022 14:43-0400 Body height 157.48 cm DO Justin Francisco Work Phone: [facility] 01-03-2022 14:43-0400 Body weight 80 kg DO Justin Francisco Work Phone: [facility] 01-03-2022 13:59-0400 Body temperature 98.5 [degF] DO Justin Nolan Work Phone: [facility] 10-14-2021 13:13-0400 Body height 157.5 cm Scott Mcallister MD Work Phone: [facility] 10-14-2021 13:13-0400 Body mass index (BMI) [Ratio] 32.92 kg/m2 Scott Mcallister MD Work Phone: [facility] 10-14-2021 13:13-0400 Body weight 81.65 kg Scott Mcallister MD Work Phone: [facility] 10-14-2021 13:13-0400 Diastolic blood pressure 85 mm[Hg] Scott Mcallister MD Work Phone: [facility] 10-14-2021 13:13-0400 Heart rate 76 /min Scott Mcallister MD Work Phone: [facility] 10-14-2021 13:13-0400 Respiratory rate 16 /min Scott Mcallister MD Work Phone: [facility] 10-14-2021 13:13-0400 SaO2% (BldA) [Mass fraction] 95 % Scott Mcallister MD Work Phone: [facility] 10-14-2021 13:13-0400 Systolic blood pressure 125 mm[Hg] Scott Mcallister MD Work Phone: [facility] 07-19-2021 12:55-0400 Body height 157.5 cm Scott Mcallister MD Work Phone: [facility] 07-19-2021 12:55-0400 Body mass index (BMI) [Ratio] 32.92 kg/m2 Scott Mcallister MD Work Phone: [facility] 07-19-2021 12:55-0400 Body weight 81.65 kg Scott Mcallister MD Work Phone: [facility] 07-19-2021 12:55-0400 Diastolic blood pressure 86 mm[Hg] Scott Mcallister MD Work Phone: [facility] 07-19-2021 12:55-0400 Heart rate 67 /min Scott Mcallister MD Work Phone: [facility] 07-19-2021 12:55-0400 Respiratory rate 16 /min Scott Mcallister MD Work Phone: [facility] 07-19-2021 12:55-0400 SaO2% (BldA) [Mass fraction] 98 % Scott Mcallister MD Work Phone: [facility] 07-19-2021 12:55-0400 Systolic blood pressure 126 mm[Hg] Scott Mcallister MD Work Phone: [facility] 09-24-2020 13:12-0400 Body height 157.5 cm Scott Mcallister MD Work Phone: [facility] 09-24-2020 13:12-0400 Body mass index (BMI) [Ratio] 32.92 kg/m2 Scott Mcallister MD Work Phone: [facility] 09-24-2020 13:12-0400 Body weight 81.65 kg Scott Mcallister MD Work Phone: [facility] 09-24-2020 13:12-0400 Diastolic blood pressure 89 mm[Hg] Scott Mcallister MD Work Phone: [facility] 09-24-2020 13:12-0400 Heart rate 67 /min Scott Mcallister MD Work Phone: [facility] 09-24-2020 13:12-0400 Respiratory rate 16 /min Scott Mcallister MD Work Phone: [facility] 09-24-2020 13:12-0400 SaO2% (BldA) [Mass fraction] 95 % Scott Mcallister MD Work Phone: [facility] 09-24-2020 13:12-0400 Systolic blood pressure 146 mm[Hg] Scott Mcallister MD Work Phone: [facility] 07-27-2020 12:59-0400 Body height 165.1 cm Scott Mcallister MD Work Phone: [facility] 07-27-2020 12:59-0400 Body mass index (BMI) [Ratio] 22.63 kg/m2 Scott Mcallister MD Work Phone: [facility] 07-27-2020 12:59-0400 Body weight 61.69 kg Scott Mcallister MD Work Phone: [facility] 05-17-2020 [id number] BP Diastolic 103 mm[Hg] [facility] 05-17-2020 13:0500 BP Systolic 163 mm[Hg] [facility] 05-17-2020 13:0500 Height 157.5 cm [facility] 05-17-2020 13:11-0500 Pulse (Heart Rate) 66 /min [facility] 05-17-2020 [id number] Pulse Oximetry 96 % [facility] 05-17-2020 13:0500 Respiratory Rate 16 /min [facility] Encounters Encounter Date Encounter Type Care Provider Facility Start: 02-12-2024 End: 02-12-2024 Isabela De La Cruz MD Work Phone: [facility] Start: 02-12-2024 End: 02-12-2024 Isabela De La Cruz MD Work Phone: [facility] Start: 02-12-2024 End: 02-12-2024 ambulatory LILIBETH PENA Not Available Start: 02-12-2024 End: 02-12-2024 Office outpatient visit 25 minutes Angelo De La Cruz MD Work Phone: [facility] Comment on above: Sudden right hearing loss (Primary Dx); Foreign body of right ear, initial encounter Start: 02-12-2024 End: 02-12-2024 ambulatory ANGELO DE LA CRUZ Not Available Comment on above: Sensorineural hearin g loss (SNHL) of both ears (Primary Dx); Ear pressure, right Start: 02-05-2024 End: 02-05-2024 Isabela De La Cruz MD Work Phone: [facility] Start: 02-05-2024 End: 02-05-2024 Isabela De La Cruz MD Work Phone: [facility] Start: 02-05-2024 End: 02-05-2024 Office outpatient new 30 minutes Angelo De La Cruz MD Work Phone: [facility] Comment on above: Foreign body of righ t ear, initial encounter (Primary Dx) Start: 02-05-2024 End: 02-05-2024 ambulatory ANGELO DE LA CRUZ Not Available Start: 11-27-2023 End: 11-27-2023 Patient encounter procedure OXANA CARVALHO [facility] Start: 11-27-2023 End: 11-27-2023 Refill Scott Mcallister MD Work Phone: [facility] Start: 11-02-2023 End: 11-04-[address] [facility] Start: 11-02-2023 End: 11-04-[address] [facility] Start: 09-28-2023 End: 09-30-[address] [facility] Start: 09-28-2023 End: 09-30-2023 Subsequent hospital visit by physician Peter Arnett MD Work Phone: [facility] Start: 08-21-2023 End: 08-21-2023 ambulatory Peter Arnett Facility:[facility] Start: 08-21-2023 End: 08-21-2023 Patient encounter procedure OXANA CARVALHO [facility] Start: 05-07-2023 ambulatory Peter Arnett Facility:[facility] Start: 05-30-2022 End: 05-30-2022 ambulatory SCOTT MCALLISTER [facility] Start: 05-30-2022 End: 05-30-2022 Office outpatient visit 15 minutes Scott Mcallister MD Work Phone: [facility] Comment on above: Bipolar 1 disorder, mixed, mild (HCC) (Primary Dx); Insomnia due to mental disorder; VICKIE (generalized anxiety disorder) Start: 05-10-2022 Refill Scott Mcallister MD Work Phone: [facility] Start: 03-30-2022 Refill Scott Mcallister MD Work Phone: [facility] Comment on above: 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; VICKIE (generalized anxiety disorder) Start: 02-28-2022 End: 02-28-2022 ambulatory UPENDER GE[employer]OT [facility] Start: 02-28-2022 End: 02-28-2022 Office outpatient visit 25 minutes Scott Mcallister MD Work Phone: [facility] Comment on above: Bipolar 1 disorder, depressed, mild (HCC) (Primary Dx); Insomnia due to mental disorder; VICKIE (generalized anxiety disorder) Start: 01-19-2022 End: 01-20-[address] PETER ARNETT Facility:[facility] Start: 01-09-2022 End: 01-09-2022 ambulatory UPENDER GEHLOT [facility] Start: 01-03-2022 End: 01-05-2022 ambulatory Peter Arnett Facility:[facility] Start: 01-03-2022 End: 01-05-2022 Evaluation and management of inpatient DO Justin Francisco Work Phone: [facility] Start: 01-03-2022 End: 01-05-2022 observation encounter DO Justin Francisco Work Phone: [facility] Work Phone: Start: 10-27-2021 End: 10-28-2021 ambulatory UPRANI MCALLISTER Facility:[facility] Start: 10-14-2021 End: 10-14-2021 ambulatory UPENDER GEHLOT [facility] Start: 10-14-2021 End: 10-14-2021 Office outpatient visit 15 minutes Scott Mcallister MD Work Phone: [facility] Comment on above: Bipolar 1 disorder, depressed, moderate (HCC) (Primary Dx); Insomnia due to mental disorder; VICKIE (generalized anxiety disorder) Start: 10-05-2021 ambulatory SCOTT MCALLISTER [facility] Start: 07-22-2021 ambulatory PETER AMADOJosef [facility] Start: 07-19-2021 End: 07-19-2021 ambulatory PETER Josef [facility] Start: 07-19-2021 End: 07-19-2021 Office outpatient visit 15 minutes Scott Mcallister MD Work Phone: [facility] Comment on above: Bipolar 1 disorder, depressed, moderate (HCC) (Primary Dx); Insomnia due to mental disorder; VICKIE (generalized anxiety disorder) Start: 05-16-2021 Refill Sarah Leigh MA [facility] Comment on above: 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 (Primary Dx) 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 Start: 03-30-2021 Encounter for genera l adult medical examination without abnormal findings DR PETER ARNETT [facility] Start: 03-29-2021 Refill Nellie Sumner MA [facility] Start: 03-22-2021 End: 03-23-[address] PETER ARNETT Facility:[facility] Start: 03-22-2021 End: 03-23-2021 Encounter for general adult medical examination without abnormal findings DR PETER ARNETT Facility:[facility] Start: 12-07-2020 Refill Lidia hernandez RN NURSERY [facility] Comment on above: 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; VICKIE (generalized anxiety disorder) Start: 09-24-2020 End: 09-24-2020 Office outpatient visit 25 minutes Scott Mcallister MD Work Phone: [facility] Comment on above: Bipolar 1 disorder, depressed, mild (HCC) (Primary Dx); Insomnia due to mental disorder; VICKIE (generalized anxiety disorder) Start: 08-31-2020 End: 08-31-2020 Refill Lidia Mahoney LPN [facility] Comment on above: 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; VICKIE (Generalized Anxiety Disorder) Start: 07-27-2020 End: 07-27-2020 Phys/qhp telephone evaluation 11-20 min Scott Mcallister MD Work Phone: [facility] Comment on above: Bipolar 1 disorder, depressed, mild (HCC) (Primary Dx); Insomnia due to mental disorder; VICKIE (Generalized Anxiety Disorder) Start: 05-17-2020 End: 05-17-2020 Office outpatient visit 15 minutes [employer] Work Phone: [facility] Comment on above: Bipolar 1 disorder, depressed, mild (HCC) (Primary Dx); VICKIE (Generalized Anxiety Disorder); Insomnia due to mental disorder Start: 04-06-2020 End: 04-06-2020 Phys/qhp telephone evaluation 11-20 min [employer] Work Phone: [facility] Comment on above: Bipolar 1 disorder, depressed, mild (HCC); VICKIE (Generalized Anxiety Disorder); Insomnia due to mental disorder Procedures Date Procedure Procedure Detail Performing Clinician Start: 02-12-2024 AUDITORY FUNCTION TESTS Lilibeth Pena [facility] Work Phone: Start: 01-03-2022 CT of head without contrast DO Justin Francisco Work Phone: Start: 05-19-2013 Colonoscopy Angelo neil MD Work Phone: Start: 04-02-2002 Kidney Blockage Surg ical Procedure OXANA CARVALHO Start: 04-02-1997 Cholecystectomy MATT CARVALHO Genital labium struc ture (body structure) OXANA CARVALHO SARS Antigen (LFIA) DO Ermias Francisco Work Phone: Trichilemmal cyst (disorder) OXANA CARVALHO Urethral structure ( body structure) OXANA CARVALHO Urine culture DO Justin Grant on Work Phone: Urine culture DO Justin Grant on Work Phone: Plan of Treatment Date Care Activity Detail Author Start: 02-05-2024 End: 02-05-2024 Patient encounter procedure 02/05/2024 10:30 AM EST Office Visit [facility] [address] [facility] [address] [place] [address] Angelo De La Cruz MD [address] [facility] [address] [place] [address] Arrived [facility] Comment on above: Arrived Start: 12-02-2023 Influenza vaccination Influenza Vacc ine (#1) [facility] Start: 11-01-2023 Influenza vaccination Flu vacc ine (Season Ended) [facility] Start: 05-19-2023 Screening for malign ant neoplasm of colon [facility] Start: 2022 Respiratory Syncytia l Virus (RSV) or age 60 yrs+ (1 - 1-dose 60+ series) Respiratory Syncytial Virus (RSV) or age 60 yrs+ (1 - 1-dose 60+ series) [facility] Start: 12-01-2022 COVID-19 Vaccine ( season) COVID-19 Vaccine ( season) [facility] Start: 05-30-2022 End: 05-30-2022 Patient encounter procedure 05/30/2022 Office Visit Psychiatry Scott Mcallister MD [address] [place] [id number] [facility] Start: 01-09-2022 End: 01-09-2022 Patient encounter procedure 01/09/2022 Office Visit Psychiatry Scott Mcallister MD [address] [address] [facility] Start: 01-05-2022 [facility] Start: 01-04-2022 Comprehensive metabo lic 2000 panel - Serum or Plasma [facility] Start: 01-04-2022 Lipid panel [facility] Start: 01-04-2022 Magnesium measurement [facility] Start: 01-04-2022 Phosphate [Mass/volu me] in Serum or Plasma [facility] Start: 01-04-2022 [facility] Start: 01-03-2022 Referral to psychiatrist [facility] Start: 01-03-2022 Hospital admission [facility] Start: 01-03-2022 [facility] Start: 12-01-2021 Influenza vaccination [facility] Start: 10-14-2021 End: 10-14-2021 Patient encounter procedure 10/14/2021 Office Visit Psychiatry Scott Mcallister MD [address] [facility] [address] [place] [id number] [facility] Start: 07-28-2021 COVID-19 Vaccine (4 - Booster for Pfizer series) COVID-19 Vaccine (4 - Booster for Pfizer series) [facility] Start: 07-15-2021 End: 07-15-2021 Patient encounter procedure 07/15/2021 Office Visit Psychiatry Scott Mcallister MD [address] [facility] [address] [place] [id number] [facility] Start: 05-24-2021 COVID-19 Vaccine (4 - Booster for Pfizer series) COVID-19 Vaccine (4 - Booster for Pfizer series) [facility] Start: 04-18-2021 End: 04-18-2021 Patient encounter procedure 04/18/2021 Office Visit Scott Moy MD [address] [facility] [address] [place] [id number] [facility] Start: 01-12-2021 COVID-19 Vaccine (3 - Booster for Pfizer series) COVID-19 Vaccine (3 - Booster for Pfizer series) [facility] Start: 01-03-2021 End: 01-03-2021 Patient encounter procedure [facility] Start: 12-01-2020 Influenza vaccination [facility] Start: 09-24-2020 End: 09-24-2020 Patient encounter procedure 09/24/2020 Office Visit Psychiatry Scott Mcallister MD [address] [facility] [address] [place] [address] [phone] [facility] Start: 09-14-2020 End: 09-14-2020 Patient encounter procedure 09/14/2020 Office Visit Psychiatry Scott Mcallister MD [address] [place] [address] [phone] [facility] Start: 09-10-2020 End: 09-10-2020 Office Visit 09/10/2020 Office Visit Scott Moy MD [address] [place] [address] [phone] [facility] Start: 12-02-2019 Influenza vaccinatio n given Sequential Influenza Vaccine (#1) [facility] Start: 2012 Administration of he rpes zoster vaccine Zoster Vaccines (1 of 2) [facility] Start: 2012 Screening for malign ant neoplasm of colon [facility] Start: 2012 Shingles vaccine (1 of 2) Shingles vaccine (1 of 2) [facility] Start: 12-12-2007 Screening for malign ant neoplasm of colon [facility] Start: 2002 Lipid panel Lipids [facility] Start: 2002 Screening for malign ant neoplasm of breast [facility] Start: 1992 Screening for malign ant neoplasm of cervix [facility] Start: 12-12-1983 Screening for malign ant neoplasm of cervix Pap Smear [facility] Start: 1981 DTaP/Tdap/Td vaccine (1 - Tdap) DTaP/Tdap/Td vaccine (1 - Tdap) [facility] Start: 1980 Hepatitis C antibody , confirmatory test Hepatitis C Screening [facility] Start: 1980 Hepatitis C screening [facility] Start: 1978 COVID-19 Vaccine (1 of 2) COVID-19 Vaccine (1 of 2) [facility] Start: 1977 HIV screening [facility] Start: 1974 Depression Screen Depression Screen [facility] Start: 1965 History and physical examination, annual for health maintenance Wellness Visit [facility] Start: 1962 Screening for malign ant neoplasm of cervix Pap Smear [facility] Start: 1962 Screening for malign ant neoplasm of colon [facility] Start: 1962 Screening mammography Mammogram [facility] Start: 1962 Tetanus vaccination Tetanus: Every 1 0yrs [facility] Bacteria identified in Urine by Culture [facility] Work Phone: End: 10-14-2022 Complete blood count with white cell differential, manual CBC and Differential Lab Routine Bipolar 1 disorder, depressed, moderate (HCC) 1 Occurrences starting 10/14/2021 until 10/14/2022 [facility] Comment on above: 1 Occurrences starti ng 10/14/2021 until 10/14/2022 End: 10-14-2022 Comprehensive metabolic 2000 panel - Serum or Plasma Comprehensive Metabolic Panel Lab Routine Bipolar 1 disorder, depressed, moderate (HCC) 1 Occurrences starting 10/14/2021 until 10/14/2022 [facility] Work Phone: Comment on above: 1 Occurrences starti ng 10/14/2021 until 10/14/2022 End: 10-14-2022 Lipid 1996 panel - Serum or Plasma Lipid Panel Lab Routine Bipolar 1 disorder, depressed, moderate (HCC) 1 Occurrences starting 10/14/2021 until 10/14/2022 [facility] Comment on above: 1 Occurrences starti ng 10/14/2021 until 10/14/2022 Patient Education High Blood Pre ssure (DC) Urinary Tract Infection, Adult (DC) Acute Kidney Injury (DC) Cefuroxime Hydralazine [facility] Work Phone: Patient referral [facility] Work Phone: Immunizations Immunization Date Immunization Notes Care Provider Aly oglesby 01-05-2022 influenza, injectabl e, quadrivalent, preservative free DO Justin Francisco Work Phone: [facility] 01-05-2022 influenza virus vaccine, unspecified formulation Scott Mcallister MD Work Phone: [facility] 03-29-2021 COVID-19 mRNA, Comirnaty (Pfizer) DO Justin Francisco Work Phone: [facility] 07-13-2020 COVID-19 mRNA, Comirnaty (Pfizer) DO Justin Francisco Work Phone: [facility] 06-21-2020 COVID-19 mRNA, Comirnaty (Pfizer) DO Justin Francisco Work Phone: [facility] Payers Date Payer Category Payer Private Health Insurance [employer] [id number] 2022 Self-pay 2014 Unknown [id number] 2014 Unknown MMO [employer] S UPERMED PPO [id number] 2014-Present [phone] [address] [place] [address] [id number] 1962 Unknown [id number] 2.16.840.1.560418.3.579.2. 593 1962 Unknown [id number] 2.16.840.1.122277.3.579.2. 593 1962 Unknown [id number] 2.16.840.1.310549.3.579.2. 593 1962 Unknown [id number] 2.16.840.1.424600.3.579.2. 593 1962 Unknown [id number] 2.16.840.1.326704.3.579.2. 903 1962 Unknown [id number] 2.16.840.1.889507.3.579.2. 903 1962 Unknown [id number] 2.16.840.1.484746.3.579.2. 903 1962 Unknown [id number] 2.16.840.1.232057.3.579.2. 903 1962 Unknown [id number] 2.16.840.1.791345.3.579.2. 903 1962 Unknown [id number] 2.16.840.1.658846.3.579.2. 903 1962 Unknown [id number] 2.16.840.1.426929.3.579.2. 903 1962 Unknown [id number] 2.16.840.1.777986.3.579.2. 174 1962 Unknown [id number] 2.16.840.1.907868.3.579.2. 174 1962 Unknown [id number] 2.16.840.1.472620.3.579.2. 174 1962 Unknown [id number] 2.16.840.1.106742.3.579.2. 174 1962 Unknown [id number] 2.16.840.1.356038.3.579.2. 727 1962 Unknown [id number] 2.16.840.1.532071.3.579.2. 727 1962 Unknown [id number] 2.16.840.1.840475.3.579.2. 1259 1962 Unknown [id number] 2.16.840.1.412795.3.579.2. 1259 1962 Unknown [id number] 2.16.840.1.298096.3.579.2. 1259 1959 Unknown [id number] Unknown [id number] 2.16.840.1.325121.3.579.2. 531 Social History Date Type Detail Facility Start: 04-06-2020 End: 01-30-2024 Tobacco smoking status NHIS Former smoker [facility] Start: 04-06-2020 End: 01-30-2024 Tobacco use and exposure Never used [facility] Start: 04-06-2020 End: 02-12-2024 Alcohol intake Ex-drinker (finding) [facility] Start: 1960 Sex Assigned At Not on file [facility] Exposure to SARS-CoV-2 (event) Unable to assess [facility] Start: 07-09-2021 End: 05-24-2022 Exposure to SARS-CoV-2 (event) Not sure [facility] Start: 01-03-2022 Tobacco smoking status NHIS Never smoked tobacco (finding) [facility] Start: 1960 Sex Assigned At Female F [facility] End: 04-02-2000 History of tobacco use Current smoker [facility] Start: 05-30-2022 End: 02-12-2024 History of Social function [facility] Start: 05-30-2022 End: 02-12-2024 Tobacco use panel [facility] Tobacco smoking status Never [facility] End: 04-02-2000 History of tobacco use Cigarette Smoker [facility] Tobacco smoking status NHIS Tobacco smoking consumption unknown [facility] Goals Date Patient Goal Desired Activity /State Functional Status Date Assessment Result Facility 11-27-2023 Functional Status N/A [facility] 08-21-2023 Functional Status N/A [facility] 01-05-2022 Functional status Patient at [facility] Work Phone: Mental Status Date Assessment Result Facility 01-05-2022 Cognitive function Cognitive Sta tus Patient at Baseline [facility] Work Phone: Clinical Notes 07-27-2020 to 02-12-2024 ABEBE Sutton - 02/12/2024 11:00 AM Duke De La Cruz MD - 02/12/2024 9:00 AM Duke De La Cruz MD - 02/05/2024 10:30 AM Krishna Mcallister MD - 05/30/2022 2:16 PM EST Note Date & Type Note Facility 02-12-2024 History of Present illness Narrative History: Dr. De La Cruz requested audio today for pt. Pt had blood clot in right ear that was removed today. Pt states her right hearing still seems muffled and she feels pressure in her right ear. Pt reports long history of bilateral constant tinnitus. Last audio at this office was in 2014. Pt had normal hearing both ears.Family history is positive for hearing loss (father and brother) Otoscopic Exam: Ear canal clear and TM intact both ears Pure Tone Audiometry Right Ear: Mild to moderate sensorineural hearing loss above 500 Hz Left Ear: Mild sensorineural hearing loss from 1K Hz - 3K Hz rising to normal hearing at 4K Hz. Mild sensorineural hearing loss above 4K Hz Speech Audiometry Right SRT = 25 dB and word discrimination score at 55 dBHL = 96% Left SRT = 30 dB and word discrimination score at 55 dBHL = 100% Tympanometry Right Ear: Type A tympanogram Left Ear: Type A tympanogram documented in this encounter [facility] 02-12-2024 History of Present illness Narrative Images from the original note were not included. Subjective Patient ID: Kathy Porter is a 63 y.o. female who presents for Ear Problem (1 week check ears) Pt presents after using vinegar to soften dried blood in EAC. Reports she has had RT ear fullness and HL since Sunday Family History Problem Relation Name Age of Onset Diabetes Mother Diabetes Father Active Ambulatory Problems Diagnosis Date Noted Bipolar 1 disorder, depressed, mild ([facility]) 04/06/2020 VICKIE (generalized anxiety disorder) ([facility]) 04/06/2020 Insomnia due to mental disorder 04/06/2020 MDD (major depressive disorder) ([facility]) 01/18/2016 Severe episode of recurrent major depressive disorder, without psychotic features (HCC) ([facility]) 01/18/2016 Resolved Ambulatory Problems Diagnosis Date Noted No Resolved Ambulatory Problems Past Medical History: Diagnosis Date Ear problems Past Surgical History: Procedure Laterality Date CHOLECYSTECTOMY OTHER SURGICAL HISTORY hematoma removal, right labia OTHER SURGICAL HISTORY reconstruction from urethra to bladder OTHER SURGICAL HISTORY RT tibial plateau fx PILONIDAL CYST DRAINAGE Allergies Allergen Reactions Sulfa Antibiotics Rash and Swelling Current Outpatient Medications on File Prior to Visit Medication Sig Dispense Refill amLODIPine (Norvasc) 10 MG tablet Take 10 mg by mouth Daily buPROPion XL (Forfivo XL) 450 MG 24 hr tablet Take 450 mg by mouth Daily Do not crush, chew, or split. cholecalciferol (Vitamin D-3) 50 MCG (1999) tablet Take 2,000 Units by mouth Daily clonazePAM (KlonoPIN) 0.5 MG tablet Take 0.5 mg by mouth Daily doxazosin (Cardura) 2 MG tablet Take 2 mg by mouth in the morning and 2 mg before bedtime. hydrALAZINE (Apresoline) 25 MG tablet Take 25 mg by mouth in the morning and 25 mg in the evening and 25 mg before bedtime. metoprolol succinate XL (Toprol-XL) 100 MG 24 hr tablet Take 100 mg by mouth Daily Do not crush or chew. pantoprazole (ProtoNix) 40 MG EC tablet Take 40 mg by mouth in the morning. Take before meals. Do not crush, chew, or split.. simvastatin (Zocor) 10 MG tablet Take 10 mg by mouth at bedtime traZODone (Desyrel) 100 MG tablet Take 100 mg by mouth at bedtime trospium (Sanctura) 20 MG tablet Take 60 mg by mouth Daily No current facility-administered medications on file prior to visit. Objective Last Recorded Vitals Vitals: 02/12/24 0850 BP: 119/76 ENT Physical Exam Ear Ear comments: RT - Blood clot evacuated from EAC. TM intact. Sal lat to left. Dony Rinne A>B. Dony tymps normal Patient ID: Kathy Porter is a 63 y.o. female. Procedures Foreign body removed from the right ear canal under micro with suction Assessment/Plan Diagnoses and all orders for this visit: Sudden right hearing loss Foreign body of right ear, initial encounter RT hearing loss c/w ISSNHL by hx, exam, and forks. Audio today and F/U. Blood clot evacuated fro RT EAC ADDENDUM - Audio shows symmetric mild dony SNHL. No tx or ELIZONDO needed. Recommend annual audio documented in this encounter [facility] 02-05-2024 History of Present illness Narrative Subjective Patient ID: Kathy Porter is a 63 y.o. female who presents for Ear Problem (Right ear Foreign body. /) Pt reports she felt she had an ear infection. Had pressure in the right ear. PCP noted something black . No tx. Review of Systems All other systems reviewed and are negative. Family History Problem Relation Name Age of Onset Diabetes Mother Diabetes Father Active Ambulatory Problems Diagnosis Date Noted Bipolar 1 disorder, depressed, mild ([facility]) 04/06/2020 VICKIE (generalized anxiety disorder) ([facility]) 04/06/2020 Insomnia due to mental disorder 04/06/2020 MDD (major depressive disorder) ([facility]) 01/18/2016 Severe episode of recurrent major depressive disorder, without psychotic features ([facility]) ([facility]) 01/18/2016 Resolved Ambulatory Problems Diagnosis Date Noted No Resolved Ambulatory Problems Past Medical History: Diagnosis Date Ear problems Past Surgical History: Procedure Laterality Date CHOLECYSTECTOMY OTHER SURGICAL HISTORY hematoma removal, right labia OTHER SURGICAL HISTORY reconstruction from urethra to bladder OTHER SURGICAL HISTORY RT tibial plateau fx PILONIDAL CYST DRAINAGE Allergies Allergen Reactions Sulfa Antibiotics Rash and Swelling Current Outpatient Medications on File Prior to Visit Medication Sig Dispense Refill amLODIPine (Norvasc) 10 MG tablet Take 10 mg by mouth Daily buPROPion XL (Forfivo XL) 450 MG 24 hr tablet Take 450 mg by mouth Daily Do not crush, chew, or split. cholecalciferol (Vitamin D-3) 50 MCG (1999) tablet Take 2,000 Units by mouth Daily clonazePAM (KlonoPIN) 0.5 MG tablet Take 0.5 mg by mouth Daily doxazosin (Cardura) 2 MG tablet Take 2 mg by mouth in the morning and 2 mg before bedtime. hydrALAZINE (Apresoline) 25 MG tablet Take 25 mg by mouth in the morning and 25 mg in the evening and 25 mg before bedtime. metoprolol succinate XL (Toprol-XL) 100 MG 24 hr tablet Take 100 mg by mouth Daily Do not crush or chew. pantoprazole (ProtoNix) 40 MG EC tablet Take 40 mg by mouth in the morning. Take before meals. Do not crush, chew, or split.. simvastatin (Zocor) 10 MG tablet Take 10 mg by mouth at bedtime traZODone (Desyrel) 100 MG tablet Take 100 mg by mouth at bedtime trospium (Sanctura) 20 MG tablet Take 60 mg by mouth Daily No current facility-administered medications on file prior to visit. Objective Last Recorded Vitals Vitals: 02/05/24 1032 BP: 121/81 ENT Physical Exam Constitutional Appearance: patient appears well-developed, well-nourished and well-groomed, Head and Face Appearance: head appears normal and face appears atraumatic; Ear Ear Canals: left ear canal normal; Tympanic Membranes: left tympanic membrane normal; Ear comments: Dried blood filling medial EAC Nose External Nose: nares patent bilaterally; external nose normal; Internal Nose: septum normal; Oral Cavity/Oropharynx Tongue: normal; Oral mucosa: normal; Hard palate: normal; Soft palate: normal; Tonsils: normal; Neck Neck: neck normal; neck palpation normal; Thyroid: thyroid normal; Respiratory Inspection: breathing unlabored; normal breathing rate; Auscultation: breath sounds are clear; Cardiovascular Inspection: extremities are warm and well perfused; no peripheral edema present; Auscultation: regular rate and rhythm; Assessment/Plan Diagnoses and all orders for this visit: Foreign body of right ear, initial encounter Blood has dried in to a hard sharp crystal. Use white vinegar drops to soften and F/U one week to remove documented in this encounter [facility] 11-27-2023 Hospital Discharge instructions Patient Education 11/27/2023 15:24:30 Urinary Incontinence Urinary Incontinence Urinary incontinence refers [...] (electrical nerve stimulation). ?For women, using a medical device assembler to prevent urine leaks. This is a [...] right after experiencing incontinence. General instructions Take tzws-nzb-invcffu and prescription medicines only as told by [...] important. Where to find more information [employer]estive [employer] Kidney Diseases: www.niddk.nih.gov [place] [employer]: www.urologyhealth.org Contact a health care [...] provider. Document Revised: 10/22/2020 Document Reviewed: 10/22/2020 [employer] Patient Education 2022 everbill. 11/27/2023 15:20:11 Overactive Bladder, Adult Overactive Bladder, Adult Overactive bladder is a condition in which a person has a sudden and frequent need to urinate. A person might also leak urine if he or she cannot get to the bathroom fast enough (urinary incontinence). Sometimes, symptoms can interfere with work or social activities. What are the causes? Overactive bladder is associated with poor nerve signals between your bladder and your brain. Your bladder may get the signal to empty before it is full. You may also have very sensitive muscles that make your bladder squeeze too soon. This condition may also be caused by other factors, such as: Medical conditions: ?Urinary tract infection. ?Infection of nearby tissues. ?Prostate enlargement. ?Bladder stones, inflammation, or tumors. ?Diabetes. ?Muscle or nerve weakness, especially from these conditions: ?A spinal cord injury. ?Stroke. ?Multiple sclerosis. ?Parkinson's disease. Other causes: ?Surgery on the uterus or urethra. ?Drinking too much caffeine or alcohol. ?Certain medicines, especially those that eliminate extra fluid in the body (diuretics). ?Constipation. What increases the risk? You may be at greater risk for overactive bladder if you: Are an older adult. Smoke. Are going through menopause. Have prostate problems. Have a neurological disease, such as stroke, dementia, Parkinson's disease, or multiple sclerosis (MS). Eat or drink alcohol, spicy food, caffeine, and other things that irritate the bladder. Are overweight or obese. What are the signs or symptoms? Symptoms of this condition include a sudden, strong urge to urinate. Other symptoms include: Leaking urine. Urinating 8 or more times a day. Waking up to urinate 2 or more times overnight. How is this diagnosed? This condition may be diagnosed based on: Your symptoms and medical history. A physical exam. Blood or urine tests to check for possible causes, such as infection. You may also need to see a health care provider who specializes in urinary tract problems. This is called a urologist. How is this treated? Treatment for overactive bladder depends on the cause of your condition and whether it is mild or severe. Treatment may include: Bladder training, such as: ?Learning to control the urge to urinate by following a schedule to urinate at regular intervals. ?Doing Kegel exercises to strengthen the pelvic floor muscles that support your bladder. Special devices, such as: ?Biofeedback. This uses sensors to help you become aware of your body's signals. ?Electrical stimulation. This uses electrodes placed inside the body (implanted) or outside the body. These electrodes send gentle pulses of electricity to strengthen the nerves or muscles that control the bladder. ?Women may use a plastic device, called a pessary, that fits into the vagina and supports the bladder. Medicines, such as: ?Antibiotics to treat bladder infection. ?Antispasmodics to stop the bladder from releasing urine at the wrong time. ?Tricyclic antidepressants to relax bladder muscles. ?Injections of botulinum toxin type A directly into the bladder tissue to relax bladder muscles. Surgery, such as: ?A device may be implanted to help manage the nerve signals that control urination. ?An electrode may be implanted to stimulate electrical signals in the bladder. ?A procedure may be done to change the shape of the bladder. This is done only in very severe cases. Follow these instructions at home: Eating and drinking Make diet or lifestyle changes recommended by your health care provider. These may include: ?Drinking fluids throughout the day and not only with meals. ?Cutting down on caffeine or alcohol. ?Eating a healthy and balanced diet to prevent constipation. This may include: ?Choosing foods that are high in fiber, such as beans, whole grains, and fresh fruits and vegetables. ?Limiting foods that are high in fat and processed sugars, such as fried and sweet foods. Lifestyle Lose weight if needed. Do not use any products that contain nicotine or tobacco. These include cigarettes, chewing tobacco, and vaping devices, such as e-cigarettes. If you need help quitting, ask your health care provider. General instructions Take fzht-pbp-ndvvqwy and prescription medicines only as told by your health care provider. If you were prescribed an antibiotic medicine, take it as told by your health care provider. Do not stop taking the antibiotic even if you start to feel better. Use any implants or pessary as told by your health care provider. If needed, wear pads to absorb urine leakage. Keep a log to track how much and when you drink, and when you need to urinate. This will help your health care provider monitor your condition. Keep all follow-up visits. This is important. Contact a health care provider if: You have a fever or chills. Your symptoms do not get better with treatment. Your pain and discomfort get worse. You have more frequent urges to urinate. Get help right away if: You are not able to control your bladder. Summary Overactive bladder refers to a condition in which a person has a sudden and frequent need to urinate. Several conditions may lead to an overactive bladder. Treatment for overactive bladder depends on the cause and severity of your condition. Making lifestyle changes, doing Kegel exercises, keeping a log, and taking medicines can help with this condition. This information is not intended to replace advice given to you by your health care provider. Make sure you discuss any questions you have with your health care provider. Document Revised: 12/06/2020 Document Reviewed: 12/06/2020 [email or web address] Patient Education 2022 everbill. Follow Up Care 08/21/2023 10:37:58 With:OXANA CARVALHO PA-C, URL Address: [place] [address] When: Unknown Comments:1 year f/up [facility] 11-27-2023 Note Patient Education Obstetrics and Gynecology Overactive Bladder, Adult Overactive bladder is a condition in which a person has a sudden and frequent need to urinate. A person might also leak urine if he or she cannot get to the bathroom fast enough (urinary incontinence). Sometimes, symptoms can interfere with work or social activities. What are the causes? Overactive bladder is associated with poor nerve signals between your bladder and your brain. Your bladder may get the signal to empty before it is full. You may also have very sensitive muscles that make your bladder squeeze too soon. This condition may also be caused by other factors, such as: ? Medical conditions: ? Urinary tract infection. ? Infection of nearby tissues. ? Prostate enlargement. ? Bladder stones, inflammation, or tumors. ? Diabetes. ? Muscle or nerve weakness, especially from these conditions: ? A spinal cord injury. ? Stroke. ? Multiple sclerosis. ? Parkinson's disease. ? Other causes: ? Surgery on the uterus or urethra. ? Drinking too much caffeine or alcohol. ? Certain medicines, especially those that eliminate extra fluid in the body (diuretics). ? Constipation. What increases the risk? You may be at greater risk for overactive bladder if you: ? Are an older adult. ? Smoke. ? Are going through menopause. ? Have prostate problems. ? Have a neurological disease, such as stroke, dementia, Parkinson's disease, or multiple sclerosis (MS). ? Eat or drink alcohol, spicy food, caffeine, and other things that irritate the bladder. ? Are overweight or obese. What are the signs or symptoms? Symptoms of this condition include a sudden, strong urge to urinate. Other symptoms include: ? Leaking urine. ? Urinating 8 or more times a day. ? Waking up to urinate 2 or more times overnight. How is this diagnosed? This condition may be diagnosed based on: ? Your symptoms and medical history. ? A physical exam. ? Blood or urine tests to check for possible causes, such as infection. You may also need to see a health care provider who specializes in urinary tract problems. This is called a urologist. How is this treated? Treatment for overactive bladder depends on the cause of your condition and whether it is mild or severe. Treatment may include: ? Bladder training, such as: ? Learning to control the urge to urinate by following a schedule to urinate at regular intervals. ? Doing Kegel exercises to strengthen the pelvic floor muscles that support your bladder. ? Special devices, such as: ? Biofeedback. This uses sensors to help you become aware of your body's signals. ? Electrical stimulation. This uses electrodes placed inside the body (implanted) or outside the body. These electrodes send gentle pulses of electricity to strengthen the nerves or muscles that control the bladder. ? Women may use a plastic device, called a pessary, that fits into the vagina and supports the bladder. ? Medicines, such as: ? Antibiotics to treat bladder infection. ? Antispasmodics to stop the bladder from releasing urine at the wrong time. ? Tricyclic antidepressants to relax bladder muscles. ? Injections of botulinum toxin type A directly into the bladder tissue to relax bladder muscles. ? Surgery, such as: ? A device may be implanted to help manage the nerve signals that control urination. ? An electrode may be implanted to stimulate electrical signals in the bladder. ? A procedure may be done to change the shape of the bladder. This is done only in very severe cases. Follow these instructions at home: Eating and drinking ? Make diet or lifestyle changes recommended by your health care provider. These may include: ? Drinking fluids throughout the day and not only with meals. ? Cutting down on caffeine or alcohol. ? Eating a healthy and balanced diet to prevent constipation. This may include: ? Choosing foods that are high in fiber, such as beans, whole grains, and fresh fruits and vegetables. ? Limiting foods that are high in fat and processed sugars, such as fried and sweet foods. Lifestyle ? Lose weight if needed. ? Do not use any products that contain nicotine or tobacco. These include cigarettes, chewing tobacco, and vaping devices, such as e-cigarettes. If you need help quitting, ask your health care provider. General instructions ? Take qpoo-vqu-elnhsvs and prescription medicines only as told by your health care provider. ? If you were prescribed an antibiotic medicine, take it as told by your health care provider. Do not stop taking the antibiotic even if you start to feel better. ? Use any implants or pessary as told by your health care provider. ? If needed, wear pads to absorb urine leakage. ? Keep a log to track how much and when you drink, and when you need to urinate. This will help your health care (more content not included)... [facility] 08-21-2023 Note Chief Complaint New Pt. HPI [...] metformin. 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 1. Kidney stones (N20.0: Calculus of kidney) [facility] 05/04/23 [facility] - 7 mm nonobstructing L [...] Trospium ER 60mg qd. Rx sent to [facility]. -Increase clear fluid intake -Avoid bladder irritants [...] Renal cyst (N28.1: Cyst of kidney, acquired) [facility] 05/04/23 [facility] - 1 cm benign-appearing R renal cyst and 1 cm benign-appearing L renal cyst. -Simple cysts do not require monitoring Follow-up With When Contact Information OXANA CARVALHO PA-C, URL [address] [place] [address] [phone] Additional Instructions: 3 mos (new med) Patient Education Urinary Incontinence Documentation recorded by the magalisibsusana Gunderson accurately reflects the (more content not included)... [facility] Comment on above: Result Comment: Elec tronically Signed By: OXANA CARVALHO PA-C\.br\Date and Time Signed: 08/21/23 16:23 EDT\.br\Electronically Co-Signed By: Evy Gunderson.marion\Date and Time Co-Signed: 08/21/23 10:37 EDT 08-21-2023 [...] (electrical nerve stimulation). ?For women, using a medical device assembler to prevent urine leaks. This is a [...] right after experiencing incontinence. General instructions Take krhs-ocg-krmyxsg and prescription medicines only as told by [...] important. Where to find more information [employer] Digestive and Kidney Diseases: www.niddk.nih.gov [employer] [employer]: www.urologyhealth.org Contact a health care [...] provider. Document Revised: 10/22/2020 Document Reviewed: 10/22/2020 [employer] Patient Education 2022 everbill. Follow Up Care 05/07/2023 11:41:01 With:OXANA CARVALHO PA-C, URL Address: [address] [address] [phone] When: Unknown Comments:3 mos (new med) [facility] 05-30-2022 History of Present illness Narrative BEHAVIORAL HEALTH PSYCHIATRIC PROGRESS NOTE 05/30/2022: Kathy Wendi, a 61 y.o. female, for psychotropic medication [...] Continue with same provider ( Rocky @ [facility] in [place]) Follow up as scheduled or return early if needed. School or community referral: None Treatment Goals and Objectives discussed. Other Referrals/Consults/Psychological Testing: None Scott Mcallister documented in this encounter [facility] 03-13-2022 History of Present illness Narrative [...] Continue with same provider ( Rocky @ [facility] in [place]) Follow up as scheduled or return early if needed. School or community referral: None Treatment Goals and Objectives discussed. Other Referrals/Consults/Psychological Testing: None Scott Mcallister documented in this encounter [facility] 01-05-2022 Discharge summary Note Date/Time January 05, 2022 12:08pm [facility] [address] [place] [address] Discharge Summary Signed Patient: Kathy Porter MR#: [id number] : 1960 Acct:[id number] Age/Sex: 61 / F Adm Date: 2 Loc: Room: [address] [place] [address]: Henry Burnett MD Copies to: [...] % (Auto) 50.3, Lymph % (Auto) 33.1, Emanuel % (Auto) 12.5, Eos % (Auto) 3.5, Baso % (Auto) 0.6, Neut # (Auto) 2.6, Lymph # (Auto) 1.7, Emanuel # (Auto) 0.7, Eos # (Auto) 0.2, [...] <Electronically signed by Henry Burnett MD> 01/05/22 3610 [facility] Work Phone: 1(525) 162-378610-05-2022 Progress note Author Henry Burnett [facility] January 04, 2022 4:20pm Note Date/Time January 04, 2022 4: 20pm [facility] [address] [place] [address] Hospitalist Progress Note Signed Patient: Kathy Porter MR#: [id number] : 1960 Acct:[id number] Age/Sex: 61 / F Adm Date: 2 Loc: Room: [address] [place] [address] Type: ADM INOo Attending Dr: Henry Burnett [...] Flu Vac Quad (36month+)Pf 0.5 Ml Syringe [id number] IM 01/04/22 18:34 .ONCE ONE Irbesartan 300 [...] <Electronically signed by Henry Burnett MD> 01/04/22 1620 [facility] Work Phone: 1([phone] 177-695510-05-2022 Consult note Author Graham Helm [facility] January 04, 2022 2:08pm Note Date/Time January 04, 2022 2: 04pm [facility] [address] [place] [address] Psychiatry Consult Note Signed Patient: Kathy Porter MR#: [id number] : 1960 Acct:[id number] Age/Sex: 61 / F Adm Date: 2 Loc: Room: [address] [place] [address] Type : ADM INOo Attending Dr: Henry [...] stated that she sees a psychiatrist in [place]. She reported that he is helping her [...] Appearance Clear Urine pH 5.5 Ur Specific [place] 1.012 Urine Protein Negative Urine Glucose (UA) [...] Color Urine Appearance Urine pH Ur Specific [place] Urine Protein Urine Glucose (UA) Urine Ketones Urine Occult Blood Urine Nitrite Ur Leukocyte Esterase Urine RBC Urine WBC Valproic Acid 59.0 01/04/22 10:13 RBC Hgb Hct MCV MCH MCHC RDW Plt Count MPV Sodium Potassium Chloride Carbon Dioxide Anion Gap BUN Creatinine Calcium Total Bilirubin AST ALT Alkaline Phosphatase Total Protein Albumin Urine Color Urine Appearance Urine pH Ur Specific [place] Urine Protein Urine Glucose (UA) Urine Ketones [...] peripherally Documented By: Graham Helm MD 01/04/22 1408 Signed By: <Electronically signed by Graham Helm MD> 01/04/22 1405 [facility] Work Phone: 1([phone]) 494-671110-04-2022 History and physical note Author Henry Burnett [facility] January 03, 2022 6:58pm Note Date/Time January 03, 2022 4: 55pm [facility] [address] [place] [address] Hospitalist H&P Signed Patient: Kathy Porter MR#: [id number] : 1960 Acct:[id number] Age/Sex: 61 / F Adm Date: 2 Loc: Room: [address] [place] [address] Type: ADM INOo Attending Dr: Henry Burnett [...] 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 Decision was to admit the patient [...] % (Auto) 22.3 % (.) 01/03/22 14:35 Emanuel % (Auto) 8.9 % (.) 01/03/22 14:35 Eos % (Auto) 1.4 % (.) 01/03/22 14:35 Baso % (Auto) 0.6 % (.) 01/03/22 14:35 Neut # (Auto) 4.3 x10E3/uL (1.8-7.7) 01/03/22 14:35 Lymph # (Auto) 1.4 x10E3/uL (1.00-4.8) 01/03/22 14:35 Emanuel # (Auto) 0.6 x10E3/uL (0.0-0.8) 01/03/22 14:35 [...] pH 5.5 (5.0-9.0) 01/03/22 14:20 Ur Specific [place] 1.012 (1.001-1.030) 01/03/22 14:20 Urine Protein Negative [...] <Electronically signed by Henry Burnett MD> 01/03/22 1676 [facility] Work Phone: 1([phone]) 230-409907-15-2022 History of Present illness Narrative* Scott Mcallister [...] Continue with same provider ( Rocky @ [facility] in [place]) Follow up as scheduled or return early if needed. School or community referral: None Treatment Goals and Objectives discussed. Other Referrals/Consults/Psychological Testing: None Scott Mcallister documented in this [id number] History of Present illness Narrative* Scott Mcallister [...] Continue with same provider ( Rocky @ [facility] in [place]) Follow up as scheduled or return early if needed. School or community referral: None Treatment Goals and Objectives discussed. Other Referrals/Consults/Psychological Testing: None Scott Mcallister documented in this [id number] Miscellaneous Notes* Telephone Encounter - Sarah Leigh MA - 05/16/2021 11:04 AM EST Pt is completely out and wants a 30 day supply sent to the local pharmacy. Another refill encounterto follow with a 90 day supply to go to [facility]. documented in this [id number] History of Present illness Narrative* Scott Mcallister [...] the patient Scott Mcallister documented in this [id number] History of Present illness Narrative* Scott Mcallister MD - 07/27/2020 2:43 PM EDT Telephone Visit Via Phone Call [facility] [phone] Telephone Visit [facility] 07/27/2020 Scott Mcallister MD Provider Location: [facility] Patient Location Brake Reliner: None Patient Location: Patient's Home Patient: Kathy [...] there are inherent diagnostic limitations compared to stmk-lc-kser evaluations. We elected toproceed with the telephone [...] and Plan of Care. [facility] Future Appointments Appointment Date:11/27/2023 03:00:00 PM Scheduled Provider:OXANA CARVALHO PA-C Location:[facility] Appointment Type:URO Office Visit [facility] evaluation note* Diagnosis Bipolar 1 disorder, depressed, [...] [facility]ized anxiety [facility] Diagnosis Insomnia due to mental disorder VICKIE (generalized anxiety disorder) Generalized anxiety disorder [facility] Diagnosis Insomnia due to mental disorder- Primary [facility] Diagnosis Insomnia due to mental disorder [facility] Diagnosis Bipolar 1 disorder, depressed, moderate (HCC)- Primary Insomnia due to mental disorder VICKIE (generalized anxiety disorder) Generalized anxiety disorder [facility] Bipolar 1 disorder, depressed, moderate (HCC)- Primary Insomnia due to mental disorder VICKIE (generalized anxiety disorder) Generalized anxiety disorder [facility] Diagnosis Onset Date Resolution Status Acute encephalopathy acute Altered mental status acute Coarse tremors acute [facility] Work Phone: Evaluation note* Diagnosis Onset Date Resolution Status Acute encephalopathy acute NAEEM (acute kidney injury) ac [place] Altered mental status acute Coarse tremors acute Hypertensive urgency acute UTI (urinary tract infection) acute [facility] Work Phone: Evaluation note* Diagnosis Bipolar 1 [...] [facility]* Diagnosis Foreign body of right ear, initial encounter- Primary [facility] Diagnosis Sudden right hearing loss- Primary Unspecified sudden hearing loss Foreign body of right ear, initial encounter [facility]* Diagnosis Sensorineural hearing loss (SNHL) of both ears- Primary Ear pressure, right documented in this encounter [facility] Narrative No data available for this section [facility] Hospital Discharge instructions Additional Instructions -Take Ceftin antibiotics treatment for UTI for 5 more days -Take new blood pressure medicine Hydralazine 25 mg three times a day. Hold if your BP <100/60 -Follow up with your primary doctor for blood pressure control and adjustment in medications if needed -[facility] Work Phone: Progress note No data available for this section [facility] History of Present Illness * Scott Mcallister MD - 04/09/2020 2:42 PM EST Telephone Visit Via Phone Call [facility] [phone] Telephone Visit [facility] 04/06/2020 Scott Mcallister MD Provider Location: [place] Patient Location Brake Reliner: None Patient Location: Patient's Home Patient: Kathy [...] there are inherent diagnostic limitations compared to [id number] evaluations. We elected toproceed with the telephone [...] Documents on File Type Date Recorded Patient Training And Development Officer Expl anation Advance Directives and Living Will [...] this section No Family History Records Found No data available for this section No Family History Records FoundNo Family History Records Found Additional Source Comments [...] Reason Onset Date Comments Medication Refill 05/10/2022 Reason Onset Date Comments Medication Refill 11/27/2023 Reason Comments Ear Problem Right ear Foreign latha dy. Reason Comments Ear Problem 1 week check ears Care Teams (unrecognized sec tion and content) Material Mover Relationship Specialty Start Date End Date Peter Arnett MD [address] [place] [address] PCP - General Family Medicine 04/05/20 Material Mover Relationship Specialty Start Date End Date Peter Arnett MD [address] [place] [address] PCP - General Family Medicine 04/05/20 Material Mover Relationship Specialty Start Date End Date Peter Arnett MD [address] [place] [address] PCP - General Family Medicine 04/05/20 Material Mover Relationship Specialty Start Date End Date Peter Arnett MD [address] [place] [address] PCP - General Family Medicine 04/05/20 Material Mover Relationship Specialty Start Date End Date Peter Arnett MD [address] [place] [address] PCP - General Family Medicine 04/05/20 Team [...] Active Graham Helm MD Other Provider Active Material Mover Relationship Specialty Start Date End Date Peter Arnett MD [address] [place] [address] PCP - General Family Medicine 04/05/20 Material Mover Relationship Specialty Start Date End Date Peter Arnett MD [address] [place] [address] PCP - General Family Medicine 04/05/20 Material Mover Relationship Specialty Start Date End Date Peter Arnett MD [address] [place] [address] PCP - General Family Medicine 04/05/20 Material Mover Relationship Specialty Start Date End Date Peter Arnett MD [address] [place] [address] PCP - General Family Medicine 04/05/20 Material Mover Relationship Specialty Start Date End Date Peter Arnett MD [address] [place] [address] PCP - General Family Medicine 04/05/20 Material Mover Relationship Specialty Start Date End Date Peter Arnett MD [facility] [place] [address] PCP - General Family Medicine 02/05/24 Valerie Moss MD [address] [place] [id number] Referring Physician Family Medicine 01/29/24 Material Mover Relationship Specialty Start Date End Date Peter Arnett MD [address] [place] [address] PCP - General Family Medicine 02/05/24 Valerie Moss MD [address] [place] [address] Referring Physician Family Medicine 01/29/24 Material Mover Relationship Specialty Start Date End Date Peter Arnett MD [address] [place] [phone] PCP - General Family Medicine 02/05/24 Valerie Moss MD [facility] [place] [address] Referring Physician Family Medicine 01/29/24 Material Mover Relationship Specialty Start Date End Date Peetr Arnett MD [address] [place] [address] PCP - General Family Medicine 02/05/24 Valerie Moss MD [address] [place] [address] Referring Physician Family Medicine 01/29/24 Material Mover Relationship Specialty Start Date End Date Peter Arnett MD [address] [place] [address] PCP - General Family Medicine 09/26/23 Goals (unrecognized section and content) Goals may be documented in a n alternate section No data available for this section No data available for this section INFORMATION SOURCE (unrecogn ized section and content) DATE CREATED AUTHOR 01/23/2022 [facility] DATE CREATED AUTHOR AUTHOR'S ORGANIZ ATION 05/06/2022 [facility] DATE CREATED AUTHOR AUTHOR'S ORGANIZ ATION 06/01/2022 [facility] DATE CREATED AUTHOR AUTHOR'S ORGANIZ ATION 11/06/2023 Emma montesinos DATE CREATED AUTHOR AUTHOR'S ORGANIZ ATION 11/29/2023 [facility] DATE CREATED AUTHOR AUTHOR'S ORGANIZ ATION 02/13/2024 [facility] EPIC FOR RECORDS PERTAINING TO PATIENTS WHO ARE [...] BE BASED ON THE PRIMARY CLINICAL RECORDS. [facility]. provides no warranty or guarantee of the accuracy or completeness of information in this document.
--- NOTE | 2024-04-30 17:13 | XR_ITS ---
The [address] [address] Patient Name: KATHY PORTER MRN: [id number] date: 1960 Sex: F Assigned Patient Location: [facility] Current Patient Location: Accession/Order Number: [id number] Exam Date: 04/30/2024 17:04 Report Date: 05/02/2024 07:07 At the request of: VICKY SAUCEDA Procedure: XR foot LT min 3V PROCEDURE: XR foot LT min 3V COMPARISON: None. HISTORY: Left foot pain FINDINGS: BONES:No fracture, acute abnormality, or significant arthropathy. SOFT TISSUES:Mild forefoot soft tissue swelling EFFUSION:None visible. OTHER: Negative. XR/XR foot LT min 3V IMPRESSION: No acute fracture Electronically authenticated by: ADNII CARTER Date: 05/02/2024 07:07
== END 2024-04-30 16:57 | disposition home or self-care (01) ==
LOC: RAD 16:57
PROVIDERS: PCP Family Medicine; Visit Provider Family Medicine
DX: M79.672 Pain in left foot (principal)
CPT/HCPCS: 73630

== ENCOUNTER 2024-05-29 07:40 | Outpatient (OUT) | payer OTHER, SELFPAY ==
--- OUTSIDE RECORDS SUMMARY | 2024-05-29 08:04 | XMS_ITS | CCD ---
Author Organization [facility] CliniSyut Care Team Providers Care Formula Clerk Name Role Phone Peter Arnett Primary Care Provider DO Justin Francisco Emergency Provider MD Peter Arnett Primary Care Provider [phone] MD Henry Burnett Admit Provider [phone] MD Henry Burnett Attending Provider MD Graham Helm Other Provider [phone] PETER ARNETT Admitting Unavailable DR [...] Unavailable Peter Arnett MD Primary Care Provider [phone] Peter Arnett Primary Care Unavailable Henry Burnett [...] Unavailable Peter Arnett MD Primary Care Provider [phone] ANGELO DE LA CRUZ Attending Unavailable VALERIE MOSS Referring Unavailable ANGELO DE LA CRUZ Attending Unavailable LILIBETH PENA Attending Unavailable Peter Arnett MD Primary Care Provider [phone] Allergies Allergy Classification Reported Allergen(s) Allergy Type Date of Onset Reaction(s) Facility Sulfonamides (antibiotic) (3 sources) Sulfonamides (Antibiotic) Drug Allergy 2 Rash, Swelling [facility] (17 sources) Sulfonamides (Antibiotic); Translations: [Sulfa (Sulfonamide Antibiotics)] Propensity to adverse reactions to drug 2 Rash, Swelling [facility] (1 source) Sulfonamides (Antibiotic) Drug allergy (disorder) 3 [facility] (3 sources) Sulfonamides (Antibiotic); Translations: [sulfa drugs] Drug allergy Cutaneous eruption (morphologic abnormality) [facility] (7 sources) Sulfonamides (Antibiotic) Drug Intolerance 2 Rash, Swelling [facility] Healthcare Work Phone: Medications Current Medications [...] Start: 08-21-2023 take 1 capsule by mo [facility] once daily in the morning trospium 60 mg oral capsule, extended release 60 mg = 1 cap(s), Oral, qAM, # 30 cap(s), Refills(s) 11, Pharmacy: [facility]/pharmacy #[id number], 158, cm, 08/21/23 10:13:00 EDT, Height/Length Dosing, 88.5, kg, 08/21/23 10:13:00 EDT, Weight Dosing Start Date: 08/21/23 Status: Ordered take [address] [facility] once daily trospium (Sanctura) 20 MG tablet [...] bedtime), # 45 tab(s), Refills(s) 1, Pharmacy: [facility], 158, cm, 12/15/19 14:46:00 EDT, [...] Mild sensorineural hearing loss above 4K Hz [facility] Ambulatory Visit Summaryon 0 11-27-2023 Ambulatory [...] f/up Where: [address] [place] [address] Medications What How Much When Instructions Unchanged trospium (trospium 60 mg oral capsule, extended release) 1 Capsules By Mouth Once a day (in the morning) Pickup at [facility] Unchanged amlodipine (Norvasc 10 mg [...] physician if questions or concerns Pharmacy Information [facility]: [address] [place], [place] [id number] [phone] Allergies sulfa drugs (Rash) Problems Ongoing - [...] the ability (more content not included)... Normal [facility] Urology Office/Clinic Noteon 11-27-2023 Urology Office/Clinic [...] metformin. 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 1. [...] E&M of Est. Patient Moderate 30-39 Min 54141 2. Kidney stones (N20.0: Calculus of kidney) [...] E&M of Est. Patient Moderate 30-39 Min 78318 3. Renal cyst (N28.1: Cyst of kidney, acquired) RAMONA 05/04/23 [facility] - 1 cm benign-appearing R renal cyst and 1 cm benign-appearing L renal cyst. -Simple cysts do not require monitoring Ordered: E&M of Est. Patient Moderate 30-39 Min 21922 Orders: trospium, 60 mg = 1 cap(s), Oral, qAM, # 90 cap(s), Refills(s) 3, Pharmacy: [facility], 158, cm, 11/27/23 15:03:00 EDT, Height/Length Dosing, 88, kg, 11/27/23 15:03:00 EDT, Weight Dosing Follow-up With When Contact Information OXANA CARVALHO PA-C, URL [address] [place] [address] Additional Instructions: 1 year f/up [...] Procedure/Surgical H (more content not included)... Normal [facility] Comment on above: Result Comment: Elec [...] Birch Jr., MD 11/02/23 Final result Normal [facility] XR KNEE RIGHT (1-2 VIEWS)on 09-28-2023 [...] Birch Jr., MD 09/28/23 Final result Normal [facility] Lab Reportson 08-23-2023 Lab Reports [id number]# 1.00TIFF Normal [facility] Lab Reportson 08-22-2023 Lab Reports [id number]# 1.00TIFF Normal [facility] Physician Referralon 024 Physician Referral [id number]#1. 00TIFF Normal [facility] RAD - Ultrasound Reporton RAD - Ultrasound Report [id number]#1 .00TIFF Normal [facility] Screenson 08-22-2023 Screens [id number]# 1.00TIFF Normal [facility] Ambulatory Visit Summaryon 0 08-21-2023 Ambulatory [...] CARVALHO PA-C, URL When: Comments: 3 mos [facility] Where: [address] [place] [address] [id number] Medications What How Much When Instructions Unchanged [...] 2 tab(s (more content not included)... Normal [facility] Patient Educationon 08-21-19 Patient Education Urology [...] stimulation). ? For women, using a medical director of hospice to prevent urine leaks. This is a [...] urine. ? (more content not included)... Normal [facility] Reminderson 08-21-2023 Reminders - From: Evy Gunderson To: KRISSY Carvalho; Sent: 08/21/2023 10:39:44 EDT Show up: 06/20/2024 10:38:00 EDT Subject: KUB and RAMONA Reminder Message Pt needs RAMONA and KUB prior to appt in 1 year. Typically goes to [facility]. Normal [facility] XR LSPINE MIN 4 VIEWSon 10-2 [...] DANII CARTER Date: 2022-01-20 07:20 Normal [facility] DEPAKENE/VALPROICon 01-20-20 22 DEPAKENE 79.2 ug/ml Normal 50.0-100.0 [facility] Comment on above: Performed By: #### V ALP #### [facility] [address] [place] [address] Dr. Julio Goddard Albumin [Mass/volume] in Ser um or PlasmaOrdered By: Henry Burnett on 01-05-2022 Albumin [Mass/Vol] 3.0 g/dL 3.2-5.5 [facility] Basophils Auto (Bld) [#/Vol] Ordered By: Henry Burnett on 01-05-2022 Basophils (Bld) [#/Vol] 0.0 10*3/uL 0.0-0.2 [facility] Basophils/100 WBC Auto (Bld) Ordered By: Henry Burnett on 01-05-2022 Basophils/100 WBC (Bld) 0.6 % . [facility] Blood hemoglobin measurement (mass/volume)Ordered By: Henry Burnett on 01-05-2022 Hemoglobin (Bld) [Mass/Vol] 12.8 g/dL 11.8-15.4 [facility] Blood leukocytes automated c ount (number/volume)Ordered By: Henry Burnett on 01-05-2022 WBC (Bld) [#/Vol] 5.3 10*3/uL 4.5-11.0 [facility] Complete Blood Count Auto Di ffon 01-05-2022 Basophils (Bld) [#/Vol] 0.0 10*3/uL Normal 0.0-0.2 [facility] Comment on above: Result Comment: PERF ORMED BY: [place] [address] PATHOLOGIST [employer] ANTONY ELIAS M.D. Performed By: #### C BC, CMP, PHOS, MG, LIPID #### [address] Basophils/100 WBC (Bld) 0.6 % Normal . [facility] Comment on above: Performed By: #### C BC, CMP, PHOS, MG, LIPID #### [address] Eosinophils (Bld) [#/Vol] 0.2 10*3/uL Normal 0.0-0.45 [facility] Comment on above: Performed By: #### C BC, CMP, PHOS, MG, LIPID #### [address] Eosinophils/100 WBC (Bld) 3.5 % Normal . [facility] Comment on above: Performed By: #### C BC, CMP, PHOS, MG, LIPID #### [address] Erythrocyte distribution width (RBC) [Ratio] 16.2 % High 11.9-15.3 [facility] Comment on above: Performed By: #### C BC, CMP, PHOS, MG, LIPID #### [address] Hematocrit (Bld) [Volume fraction] 38.6 % Normal 34.0-46.4 [facility] Comment on above: Performed By: #### C BC, CMP, PHOS, MG, LIPID #### [address] Hemoglobin (Bld) [Mass/Vol] 12.8 g/dL Normal 11.8-15.4 [facility] Comment on above: Performed By: #### C BC, CMP, PHOS, MG, LIPID #### [place] [address] [place] Lymphocytes (Bld) [#/Vol] 1.7 10*3/uL Normal 1.00-4.8 [facility] Comment on above: Performed By: #### C BC, CMP, PHOS, MG, LIPID #### [address] Lymphocytes/100 WBC (Bld) 33.1 % Normal . [facility] Comment on above: Performed By: #### C BC, CMP, PHOS, MG, LIPID #### [address] MCH (RBC) [Entitic mass] 30.2 pg Normal 24.7-34.3 [facility] Comment on above: Performed By: #### C BC, CMP, PHOS, MG, LIPID #### [address] MCV (RBC) [Entitic vol] 90.6 fL Normal 80-100 [facility] Comment on above: Performed By: #### C BC, CMP, PHOS, MG, LIPID #### [address] Mean Corpuscular HGB Conc 33.3 g/dL Normal 32.0-35.0 [facility] Comment on above: Performed By: #### C BC, CMP, PHOS, MG, LIPID #### [address] Monocytes (Bld) [#/Vol] 0.7 10*3/uL Normal 0.0-0.8 [facility] Comment on above: Performed By: #### C BC, CMP, PHOS, MG, LIPID #### [address] Monocytes/100 WBC (Bld) 12.5 % Normal . [facility] Comment on above: Performed By: #### C BC, CMP, PHOS, MG, LIPID #### [address] Neutrophils (Bld) [#/Vol] 2.6 10*3/uL Normal 1.8-7.7 [facility] Comment on above: Performed By: #### C BC, CMP, PHOS, MG, LIPID #### [facility] [address] [place] [address] Neutrophils/100 WBC (Bld) 50.3 % Normal . [facility] Comment on above: Performed By: #### C BC, CMP, PHOS, MG, LIPID #### [facility] [address] [place] [address] Nucleated RBC/100 WBC (Bld) [Ratio] 0.1 % Normal 0-0.5 [facility] Comment on above: Performed By: #### C BC, CMP, PHOS, MG, LIPID #### [address] Platelet mean volume (Bld) [Entitic vol] 8.9 fL Normal 6.3-10.7 [facility] Comment on above: Performed By: #### C BC, CMP, PHOS, MG, LIPID #### [address] Platelets (Bld) [#/Vol] 186 10*3/uL Normal 150-450 [facility] Comment on above: Performed By: #### C BC, CMP, PHOS, MG, LIPID #### [address] RBC (Bld) [#/Vol] 4.25 10*6/uL Normal 3.60-5.00 [facility] Comment on above: Performed By: #### C BC, CMP, PHOS, MG, LIPID #### [address] WBC (Bld) [#/Vol] 5.3 10*3/uL Normal 4.5-11.0 [facility] Comment on above: Performed By: #### C BC, CMP, PHOS, MG, LIPID #### [address] Comprehensive Metabolic Pane clarice 01-05-2022 Albumin [Mass/Vol] 3.0 g/dL Low 3.2-5.5 [facility] Comment on above: Performed By: #### C BC, CMP, PHOS, MG, LIPID #### [facility] [address] [place] [address] Albumin/Globulin [Mass ratio] 1.2 {ratio} Normal [facility] Comment on above: Performed By: #### C BC, CMP, PHOS, MG, LIPID #### [facility] [address] [place] [address] ALP [Catalytic activity/Vol] 33 U/L Normal 32-92 [facility] Comment on above: Performed By: #### C BC, CMP, PHOS, MG, LIPID #### [address] ALT [Catalytic activity/Vol] 11 U/L Normal 10-60 [facility] Comment on above: Performed By: #### C BC, CMP, PHOS, MG, LIPID #### [address] Anion gap [Moles/Vol] 11.6 mmol/L Normal 6.0-15.0 [facility] Comment on above: Performed By: #### C BC, CMP, PHOS, MG, LIPID #### [address] AST [Catalytic activity/Vol] 13 U/L Normal 10-42 [facility] Comment on above: Performed By: #### C BC, CMP, PHOS, MG, LIPID #### [address] Bilirubin [Mass/Vol] 0.4 mg/dL Normal 0.3-1.2 [facility] Comment on above: Performed By: #### C BC, CMP, PHOS, MG, LIPID #### [address] Calcium [Mass/Vol] 9.1 mg/dL Normal 8.2-10.2 [facility] Comment on above: Performed By: #### C BC, CMP, PHOS, MG, LIPID #### [place] [id number] [place] Chloride [Moles/Vol] 105 mmol/L Normal 95-114 [facility] Comment on above: Performed By: #### C BC, CMP, PHOS, MG, LIPID #### [address] CO2 [Moles/Vol] 25.2 mmol/L Normal 22.0-30.0 [facility] Comment on above: Performed By: #### C BC, CMP, PHOS, MG, LIPID #### [address] Creatinine [Mass/Vol] 1.14 mg/dL High 0.44-1.03 [facility] Comment on above: Performed By: #### C BC, CMP, PHOS, MG, LIPID #### [address] Creatinine Clr Calc Pharmacy 51.99 [facility] Comment on above: Result Comment: PERF ORMED BY: [place] [address] PATHOLOGIST [employer] ANTONY ELIAS M.D. Performed By: #### C BC, CMP, PHOS, MG, LIPID #### [address] Estimated GFR ( [place] 59 [facility] Comment on above: Result Comment: GFR estimated reference range: According to KDOQI guidelines, <60 ml/min/1.73m2 is sufficient to diagnose a patient with chronic kidney disease. Performed By: #### C BC, CMP, PHOS, MG, LIPID #### [facility] [address] [place] [address] Estimated GFR (Non- Am 49 [facility] Comment on above: Performed By: #### C BC, CMP, PHOS, MG, LIPID #### [address] Globulin (S) [Mass/Vol] 2.5 g/dL Normal [facility] Comment on above: Performed By: #### C BC, CMP, PHOS, MG, LIPID #### [facility] [address] [place] [address] [place] Glucose [Mass/Vol] 96 mg/dL Normal 70-100 [facility] Comment on above: Result Comment: [facility][note 2] Glucose Reference Range is dependent on time and content of last meal. Glucose of more than 200 mg/dL in a nonstressed, ambulatory subject supports the diagnosis of Diabetes Mellitus. ADA recommended reference range Performed By: #### C BC, CMP, PHOS, MG, LIPID #### [facility] [address] Potassium [Moles/Vol] 3.8 mmol/L Normal 3.5-5.1 [facility] Comment on above: Performed By: #### C BC, CMP, PHOS, MG, LIPID #### [facility] [address] Protein [Mass/Vol] 5.5 g/dL Low 6.1-7.9 [facility] Comment on above: Performed By: #### C BC, CMP, PHOS, MG, LIPID #### [facility] [address] Sodium [Moles/Vol] 138 mmol/L Normal 136-146 [facility] Comment on above: Performed By: #### C BC, CMP, PHOS, MG, LIPID #### [facility] [address] [place] [address] [place] Urea nitrogen [Mass/Vol] 11 mg/dL Normal 9-23 [facility] Comment on above: Performed By: #### C BC, CMP, PHOS, MG, LIPID #### [facility] [address] [place] [address] [place] Creatinine and Glomerular fi ltration rate.predicted panel (S/P/Bld)Ordered By: Henry Burnett on 01-05-2022 Creatinine [Mass/Vol] 1.14 mg/dL 0.44-1.03 [facility] Eosinophils Auto (Bld) [#/Vo l]Ordered By: Henry Lemonr on 01-05-2022 Eosinophils (Bld) [#/Vol] 0.2 10*3/uL 0.0-0.45 [facility] Eosinophils/100 WBC Auto (Bl d)Ordered By: Henry Burnett on 01-05-2022 Eosinophils/100 WBC (Bld) 3.5 % . [facility] Erythrocyte distribution wid th Auto (RBC) [Ratio]Ordered By: Henry Burnett on 01-05-2022 Erythrocyte distribution width (RBC) [Ratio] 16.2 % 11.9-15.3 [facility] Estimated glomerular filtrat ion rate (GFR) non- AmericanOrdered By: Henry Burnett on 01-05-2022 GFR/1.73 sq M.predicted among non-blacks MDRD (S/P/Bld) [Vol rate/Area] 49 mL/Min [facility] Globulin Calc (S) [Mass/Vol] Ordered By: Henry Burnett on 01-05-2022 Globulin (S) [Mass/Vol] 2.5 g/dL [facility] Hematocrit Auto (Bld) [Volum e fraction]Ordered By: Henry Burnett on 01-05-2022 Hematocrit (Bld) [Volume fraction] 38.6 % 34.0-46.4 [facility] Laboratory - Hematology and Cell countsOrdered By: Henry Burnett on 01-05-2022 Nucleated RBC/100 WBC (Bld) [Ratio] 0.1 % 0-0.5 [facility] Lymphocytes Auto (Bld) [#/Vo l]Ordered By: Henry Burnett on 01-05-2022 Lymphocytes (Bld) [#/Vol] 1.7 10*3/uL 1.00-4.8 [facility] Lymphocytes/100 WBC Auto (Bl d)Ordered By: Henry Burnett on 01-05-2022 Lymphocytes/100 WBC (Bld) 33.1 % . [facility] MCH Auto (RBC) [Entitic mass ]Ordered By: Henry Burnett on 01-05-2022 MCH (RBC) [Entitic mass] 30.2 pg 24.7-34.3 [facility] MCHC Auto (RBC) [Mass/Vol]Or dered By: Obaydah Daromar on 01-05-2022 MCHC (RBC) [Mass/Vol] 33.3 g/dL 32.0-35.0 [facility] MCV Auto (RBC) [Entitic vol] Ordered By: Obaydah Daromar on 01-05-2022 MCV (RBC) [Entitic vol] 90.6 fL 80-100 [facility] Monocytes Auto (Bld) [#/Vol] Ordered By: Obaydah Daromar on 01-05-2022 Monocytes (Bld) [#/Vol] 0.7 10*3/uL 0.0-0.8 [facility] Monocytes/100 WBC Auto (Bld) Ordered By: Obaydah Daromar on 01-05-2022 Monocytes/100 WBC (Bld) 12.5 % . [facility] Neutrophils Auto (Bld) [#/Vo l]Ordered By: Obsonjadah Daromar on 01-05-2022 Neutrophils (Bld) [#/Vol] 2.6 10*3/uL 1.8-7.7 [facility] Neutrophils/100 WBC Auto (Bl d)Ordered By: Obsonjadah Filibertoomar on 01-05-2022 Neutrophils/100 WBC (Bld) 50.3 % . [facility] No Panel InformationOrdered By: Obsonjadanaga De Los Santosomar on 01-05-2022 Estimated GFR () 59 mL/Min [facility] Comment on above: GFR estimated refere nce range: According to KDOQI guidelines, <60 ml/min/1.73m2 is sufficient to diagnose a patient with chronic kidney disease. Pharmacy Creatinine Clearance (Chem 51.99 [facility] Platelet mean volume Auto (B ld) [Entitic vol]Ordered By: Obsonjadah Daromar on 01-05-2022 Platelet mean volume (Bld) [Entitic vol] 8.9 fL 6.3-10.7 [facility] Platelets Auto (Bld) [#/Vol] Ordered By: Obsonjadah Daromar on 01-05-2022 Platelets (Bld) [#/Vol] 186 10*3/uL 150-450 [facility] Protein [Mass/volume] in Ser um or PlasmaOrdered By: Henry Burnett on 01-05-2022 Protein [Mass/Vol] 5.5 g/dL 6.1-7.9 [facility] RBC Auto (Bld) [#/Vol]Ordere d By: Henry Burnett on 01-05-2022 RBC (Bld) [#/Vol] 4.25 10*6/uL 3.60-5.00 [facility] Serum or plasma alanine angeles otransferase measurement without P-5'-P (enzymatic activiOrdered By: Henry Burnett on 01-05-2022 ALT No additional P-5'-P [Catalytic activity/Vol] 11 U/L 60 [facility] Serum or plasma albumin/glob ulin mass ratioOrdered By: Henry Burnett on 01-05-2022 Albumin/Globulin [Mass ratio] 1.2 {ratio} [facility] Serum or plasma alkaline flaquita sphatase measurement (enzymatic activity/volume)Ordered By: Henry Burnett on 01-05-2022 ALP [Catalytic activity/Vol] 33 U/L 32-92 [facility] Serum or plasma anion gap de terminationOrdered By: Henry Burnett on 01-05-2022 Anion gap [Moles/Vol] 11.6 mmol/L 6.0-15.0 [facility] Serum or plasma aspartate am inotransferase measurement (enzymatic activity/volume)Ordered By: Henry Burnett on 01-05-2022 AST [Catalytic activity/Vol] 13 U/L 1042 [facility] Serum or plasma calcium sarah urement (mass/volume)Ordered By: Henry Burnett on 01-05-2022 Calcium [Mass/Vol] 9.1 mg/dL 8.2-10.2 [facility] Serum or plasma chloride deep surement (moles/volume)Ordered By: Henry Burnett on 01-05-2022 Chloride [Moles/Vol] 105 mmol/L 95-114 [facility] Serum or plasma glucose sarah urement (mass/volume)Ordered By: Henry Burnett on 01-05-2022 Glucose [Mass/Vol] 96 mg/dL 70-100 [facility] Comment on above: ADA recommended refe rence rangeRandom Glucose Reference Range is dependent on time and content of last meal. Glucose of more than 200 mg/dL in a nonstressed, ambulatory subject supports the diagnosis of Diabetes Mellitus. Serum or plasma potassium me asurement (moles/volume)Ordered By: Henry Burnett on 01-05-2022 Potassium [Moles/Vol] 3.8 mmol/L 3.5-5.1 [facility] Serum or plasma sodium measu rement (moles/volume)Ordered By: Henry Burnett on 01-05-2022 Sodium [Moles/Vol] 138 mmol/L 136-146 [facility] Serum or plasma total biliru bin measurement (mass/volume)Ordered By: Henry Burnett on 01-05-2022 Bilirubin [Mass/Vol] 0.4 mg/dL 0.3-1.2 [facility] Serum or plasma total carbon dioxide measurement (moles/volume)Ordered By: Henry Burnett on 01-05-2022 CO2 [Moles/Vol] 25.2 mmol/L 22.0-30.0 [facility] Serum or plasma urea nitroge n measurement (mass/volume)Ordered By: Henry Burnett on 01-05-2022 Urea nitrogen [Mass/Vol] 11 mg/dL 9-23 [facility] Urine culture routineOrdered By: Justin Francisco on 01-05-2022 Bacteria identified Cx Nom (U) Escherichia coli [facility] Cholesterol [Mass/volume] in Serum or PlasmaOrdered By: Henry Burnett on 01-04-2022 Cholesterol [Mass/Vol] 145 mg/dL 140-200 [facility] Comment on above: Chol less than 200 m g/dl low riskChol 201-239 mg/dl borderline riskChol 240 mg/dl and greater high risk Cholesterol in LDL Calc [Mas s/Vol]Ordered By: Henry Burnett on 01-04-2022 Cholesterol in LDL [Mass/Vol] 78 mg/dL 0-100 [facility] Comment on above: LDL ATP III CLASSIFI CATIONLDL less than 100 mg/dL OptimalLDL 100-129 mg/dL Near or above optimalLDL 130-159 mg/dL Borderline highLDL 160-189 mg/dL HighLDL greater than 189 mg/dL Very high Cholesterol in VLDL Calc [Ma ss/Vol]Ordered By: Henry Burnett on 01-04-2022 Cholesterol in VLDL [Mass/Vol] 12 mg/dL [facility] Complete Blood Count Auto Di ffon 01-04-2022 Basophils (Bld) [#/Vol] 0.0 10*3/uL Normal 0.0-0.2 [facility] Comment on above: Result Comment: PERF ORMED BY: [place] [address] PATHOLOGIST [employer] ANTONY ELIAS M.D. Performed By: #### C BC, CMP, PHOS, MG, LIPID #### [facility] [address] Basophils/100 WBC (Bld) 0.8 % Normal . [facility] Comment on above: Performed By: #### C BC, CMP, PHOS, MG, LIPID #### [facility] [address] Eosinophils (Bld) [#/Vol] 0.2 10*3/uL Normal 0.0-0.45 [facility] Comment on above: Performed By: #### C BC, CMP, PHOS, MG, LIPID #### [facility] [address] Eosinophils/100 WBC (Bld) 4.2 % Normal . [facility] Comment on above: Performed By: #### C BC, CMP, PHOS, MG, LIPID #### [facility] [address] Erythrocyte distribution width (RBC) [Ratio] 15.8 % High 11.9-15.3 [facility] Comment on above: Performed By: #### C BC, CMP, PHOS, MG, LIPID #### [address] Hematocrit (Bld) [Volume fraction] 37.5 % Normal 34.0-46.4 [facility] Comment on above: Performed By: #### C BC, CMP, PHOS, MG, LIPID #### [address] Hemoglobin (Bld) [Mass/Vol] 12.3 g/dL Normal 11.8-15.4 [facility] Comment on above: Performed By: #### C BC, CMP, PHOS, MG, LIPID #### [address] Lymphocytes (Bld) [#/Vol] 1.6 10*3/uL Normal 1.00-4.8 [facility] Comment on above: Performed By: #### C BC, CMP, PHOS, MG, LIPID #### [address] Lymphocytes/100 WBC (Bld) 31.2 % Normal . [facility] Comment on above: Performed By: #### C BC, CMP, PHOS, MG, LIPID #### [address] MCH (RBC) [Entitic mass] 29.7 pg Normal 24.7-34.3 [facility] Comment on above: Performed By: #### C BC, CMP, PHOS, MG, LIPID #### [address] MCV (RBC) [Entitic vol] 90.5 fL Normal 80-100 [facility] Comment on above: Performed By: #### C BC, CMP, PHOS, MG, LIPID #### [address] Mean Corpuscular HGB Conc 32.8 g/dL Normal 32.0-35.0 [facility] Comment on above: Performed By: #### C BC, CMP, PHOS, MG, LIPID #### [address] Monocytes (Bld) [#/Vol] 0.7 10*3/uL Normal 0.0-0.8 [facility] Comment on above: Performed By: #### C BC, CMP, PHOS, MG, LIPID #### [facility] [address] Monocytes/100 WBC (Bld) 13.1 % Normal . [facility] Comment on above: Performed By: #### C BC, CMP, PHOS, MG, LIPID #### [facility] [address] Neutrophils (Bld) [#/Vol] 2.6 10*3/uL Normal 1.8-7.7 [facility] Comment on above: Performed By: #### C BC, CMP, PHOS, MG, LIPID #### [address] Neutrophils/100 WBC (Bld) 50.7 % Normal . [facility] Comment on above: Performed By: #### C BC, CMP, PHOS, MG, LIPID #### [facility] [address] [place] [address] [place] Nucleated RBC/100 WBC (Bld) [Ratio] 0.1 % Normal 0-0.5 [facility] Comment on above: Performed By: #### C BC, CMP, PHOS, MG, LIPID #### [facility] [address] [place] [address] [place] Platelet mean volume (Bld) [Entitic vol] 8.5 fL Normal 6.3-10.7 [facility] Comment on above: Performed By: #### C BC, CMP, PHOS, MG, LIPID #### [facility] [address] [place] [address] [place] Platelets (Bld) [#/Vol] 190 10*3/uL Normal 150-450 [facility] Comment on above: Performed By: #### C BC, CMP, PHOS, MG, LIPID #### [facility] [address] [place] [address] [place] RBC (Bld) [#/Vol] 4.15 10*6/uL Normal 3.60-5.00 [facility] Comment on above: Performed By: #### C BC, CMP, PHOS, MG, LIPID #### [address] WBC (Bld) [#/Vol] 5.1 10*3/uL Normal 4.5-11.0 [facility] Comment on above: Performed By: #### C BC, CMP, PHOS, MG, LIPID #### [address] Comprehensive Metabolic Pane clarice 01-04-2022 Albumin [Mass/Vol] 3.0 g/dL Low 3.2-5.5 [facility] Comment on above: Performed By: #### C BC, CMP, PHOS, MG, LIPID #### [address] Albumin/Globulin [Mass ratio] 1.2 {ratio} Normal [facility] Comment on above: Performed By: #### C BC, CMP, PHOS, MG, LIPID #### [address] ALP [Catalytic activity/Vol] 32 U/L Normal 32-92 [facility] Comment on above: Performed By: #### C BC, CMP, PHOS, MG, LIPID #### [address] ALT [Catalytic activity/Vol] 12 U/L Normal 10-60 [facility] Comment on above: Performed By: #### C BC, CMP, PHOS, MG, LIPID #### [address] Anion gap [Moles/Vol] 10.6 mmol/L Normal 6.0-15.0 [facility] Comment on above: Performed By: #### C BC, CMP, PHOS, MG, LIPID #### [address] AST [Catalytic activity/Vol] 15 U/L Normal 10-42 [facility] Comment on above: Performed By: #### C BC, CMP, PHOS, MG, LIPID #### [facility] [address] Bilirubin [Mass/Vol] 0.3 mg/dL Normal 0.3-1.2 [facility] Comment on above: Performed By: #### C BC, CMP, PHOS, MG, LIPID #### [facility] [address] Calcium [Mass/Vol] 9.0 mg/dL Normal 8.2-10.2 [facility] Comment on above: Performed By: #### C BC, CMP, PHOS, MG, LIPID #### [address] Chloride [Moles/Vol] 103 mmol/L Normal 95-114 [facility] Comment on above: Performed By: #### C BC, CMP, PHOS, MG, LIPID #### [address] CO2 [Moles/Vol] 27.6 mmol/L Normal 22.0-30.0 [facility] Comment on above: Performed By: #### C BC, CMP, PHOS, MG, LIPID #### [address] Creatinine [Mass/Vol] 1.21 mg/dL High 0.44-1.03 [facility] Comment on above: Performed By: #### C BC, CMP, PHOS, MG, LIPID #### [address] Creatinine Clr Calc Pharmacy 49.01 [facility] Comment on above: Performed By: #### C BC, CMP, PHOS, MG, LIPID #### [address] Estimated GFR ( [place] 55 [facility] Comment on above: Result Comment: GFR estimated reference range: According to KDOQI guidelines, <60 ml/min/1.73m2 is sufficient to diagnose a patient with chronic kidney disease. Performed By: #### C BC, CMP, PHOS, MG, LIPID #### [facility] [address] [place] [address] [place] Estimated GFR (Non- Am 46 Normal [facility] Comment on above: Performed By: #### C BC, CMP, PHOS, MG, LIPID #### [facility] [address] Globulin (S) [Mass/Vol] 2.6 g/dL Normal [facility] Comment on above: Performed By: #### C BC, CMP, PHOS, MG, LIPID #### [facility] [address] Glucose [Mass/Vol] 151 mg/dL High 70-100 [facility] Comment on above: Result Comment: [facility][note 2] Glucose Reference Range is dependent on time and content of last meal. Glucose of more than 200 mg/dL in a nonstressed, ambulatory subject supports the diagnosis of Diabetes Mellitus. ADA recommended reference range Performed By: #### C BC, CMP, PHOS, MG, LIPID #### [facility] [address] Potassium [Moles/Vol] 3.2 mmol/L Low 3.5-5.1 [facility] Comment on above: Performed By: #### C BC, CMP, PHOS, MG, LIPID #### [facility] [address] Protein [Mass/Vol] 5.6 g/dL Low 6.1-7.9 [facility] Comment on above: Performed By: #### C BC, CMP, PHOS, MG, LIPID #### [facility] [address] Sodium [Moles/Vol] 138 mmol/L Normal 136-146 [facility] Comment on above: Performed By: #### C BC, CMP, PHOS, MG, LIPID #### [facility] [address] Urea nitrogen [Mass/Vol] 11 mg/dL Normal 9-23 [facility] Comment on above: Performed By: #### C BC, CMP, PHOS, MG, LIPID #### [facility] [address] Laboratory - Chemistry and C hemistry - challengeOrdered By: Henry Burnett on 01-04-2022 Magnesium [Mass/Vol] 1.6 mg/dL 1.6-2.6 [facility] Lipid Panelon 01-04-2022 Cholesterol [Mass/Vol] 145 mg/dL Normal 140-200 [facility] Comment on above: Result Comment: Chol less than 200 mg/dl low risk Chol 201-239 mg/dl borderline risk Chol 240 mg/dl and greater high risk Performed By: #### C BC, CMP, PHOS, MG, LIPID #### [facility] [address] Cholesterol in HDL [Mass/Vol] 55 mg/dL Normal 35-85 [facility] Comment on above: Result Comment: HDL CHOL ATP-III CLASSIFICATION Cardiovascular Risk HDL > or equal to 60 mg/dL LOW HDL < 40 mg/dL HIGH Performed By: #### C BC, CMP, PHOS, MG, LIPID #### [facility] [address] Cholesterol.total/Tila sterol in HDL [Mass ratio] 2.6 {ratio} Normal <5.0 [facility] Comment on above: Result Comment: PERF ORMED BY: [place] [address] PATHOLOGIST [employer] ANTONY ELIAS M.D. Performed By: #### C BC, CMP, PHOS, MG, LIPID #### [facility] [address] LDL Cholesterol,Calculated 78 mg/dL Normal 0-100 [facility] Comment on above: Result Comment: LDL ATP III CLASSIFICATION LDL less than 100 mg/dL Optimal LDL 100-129 mg/dL Near or above optimal LDL 130-159 mg/dL Borderline high LDL 160-189 mg/dL High LDL greater than 189 mg/dL Very high Performed By: #### C BC, CMP, PHOS, MG, LIPID #### [facility] [address] [place] [address] [place] Triglyceride w/Reflex 60 mg/dL Normal 35-149 [facility] Comment on above: Result Comment: TRIG ATP III CLASSIFICATION TRIG less than 150 mg/dL Normal TRIG 150-199 mg/dL Borderline high TRIG 200-500 mg/dL High TRIG greater than 500 mg/dL Very high Standard traceable to the Center for Disease Conrtrol and Prevention (CDC) test method. Performed By: #### C BC, CMP, PHOS, MG, LIPID #### [facility] [address] VLDL CHOLESTEROL 12 mg/dL Normal [facility] Comment on above: Performed By: #### C BC, CMP, PHOS, MG, LIPID #### [facility] [address] [place] [address] Magnesiumon 01-04-2022 Magnesium [Mass/Vol] 1.6 mg/dL Normal 1.6-2.6 [facility] Comment on above: Performed By: #### C BC, CMP, PHOS, MG, LIPID #### [address] No Panel InformationOrdered By: Graham Helm on 01-04-2022 Valproic Acid (Depakene) Level 28.2 ug/mL 50.0-100.0 [facility] Comment on above: Last dose: - Phosphate [Mass/volume] in S yeyo or PlasmaOrdered By: Henry Burnett on 01-04-2022 Phosphate [Mass/Vol] 3.5 mg/dL 2.5-4.6 [facility] Phosphoruson 01-04-2022 Phosphate [Mass/Vol] 3.5 mg/dL Normal 2.5-4.6 [facility] Comment on above: Performed By: #### C BC, CMP, PHOS, MG, LIPID #### [facility] [address] [place] [address] Serum or plasma high density lipoprotein (HDL) cholesterol measurementOrdered By: Henry Burnett on 01-04-2022 Cholesterol in HDL [Mass/Vol] 55 mg/dL 35-85 [facility] Comment on above: HDL CHOL ATP-III CLA SSIFICATION Cardiovascular RiskHDL > or equal to 60 mg/dL LOWHDL < 40 mg/dL HIGH Serum or plasma total choles terol/high density lipoprotein (HDL) cholesterol mass ratOrdered By: Henry Burnett on 01-04-2022 Cholesterol.total/Tila sterol in HDL [Mass ratio] 2.6 {ratio} <5.0 [facility] Triglyceride [Mass/volume] i n Serum or PlasmaOrdered By: Henry Burnett on 01-04-2022 Triglyceride [Mass/Vol] 60 mg/dL 35-149 [facility] Comment on above: TRIG ATP III CLASSIF ICATIONTRIG less than 150 mg/dL NormalTRIG 150-199 mg/dL Borderline highTRIG 200-500 mg/dL High TRIG greater than 500 mg/dL Very highStandard traceable to the Center for Disease Conrtrol and Prevention (CDC) test method. Valproic Acid (in house)on Valproic Acid (in house) 28.2 ug/mL Low 50.0-100.0 [facility] Comment on above: Result Comment: Last dose: - PERFORMED BY: [place] [address] PATHOLOGIST [employer] ANTONY ELIAS M.D. Performed By: #### C BC, CMP, PHOS, MG, LIPID #### [facility] [address] Acetaminophenon 01-03-2022 Acetaminophen [Mass/Vol] 25.3 ug/mL Normal 10.0-30.0 [facility] Comment on above: Performed By: #### C MP, T4F, TSH3, CBC, ETOH, JUAN, ACET, VALP #### [facility] [address] [place] [address] [place] Albumin [Mass/volume] in Ser um or PlasmaOrdered By: Justin Francisco on 01-03-2022 Albumin [Mass/Vol] 3.6 g/dL 3.2-5.5 [facility] Amphetamine Screen Ql (U)Ord ered By: Justin Francisco on 01-03-2022 Amphetamines Ql (U) Negative Negative [facility] Automated erythrocytes count in urine sediment (number/area)Ordered By: Justin Francisco on 01-03-2022 RBC Auto (Urine sed) [#/Area] None seen [HPF] 0-4 [facility] Automated leukocytes count i n urine sediment (number/area)Ordered By: Justin Francisco on 01-03-2022 WBC Auto (Urine sed) [#/Area] 5-9 [HPF] 0-4 [facility] Barbiturates [Presence] in U rineOrdered By: Justin Francisco on 01-03-2022 Barbiturates Ql (U) Negative Negative [facility] Basophils Auto (Bld) [#/Vol] Ordered By: Justin Francisco on 01-03-2022 Basophils (Bld) [#/Vol] 0.0 10*3/uL 0.0-0.2 [facility] Basophils/100 WBC Auto (Bld) Ordered By: Justin Francisco on 01-03-2022 Basophils/100 WBC (Bld) 0.6 % . [facility] Benzodiazepines [Presence] i n UrineOrdered By: Justin Frnacisco on 01-03-2022 Benzodiazepines Ql (U) Negative Negative [facility] Bilirubin Test strip Ql (U)O rdered By: Justin Francisco on 01-03-2022 Bilirubin Ql (U) Negative Negative [facility] Blood hemoglobin measurement (mass/volume)Ordered By: Justin Francisco on 01-03-2022 Hemoglobin (Bld) [Mass/Vol] 13.4 g/dL 11.8-15.4 [facility] Blood leukocytes automated c ount (number/volume)Ordered By: Justin Francisco on 01-03-2022 WBC (Bld) [#/Vol] 6.4 10*3/uL 4.5-11.0 [facility] COVID-19 Antigenon 2 COVID-19 Antigen Healthcare Worker?: [...] developed and its performance characteristic determined by [employer] and validated at [facility]. This test has not been FDA cleared [...] for SARS Antigen by [employer] PERFORMED BY: [place] [address] PATHOLOGIST [employer] ANTONY ELIAS M.D. Normal [facility] Comment on above: Performed By: #### C BC, CMP, PHOS, MG, LIPID #### [address] COVID-19 [facility] 01-03-2022 SARS-CoV-2 (COVID-19) RNA ARMINDA+probe Ql (Unsp spec) Negative Normal Negative [facility] Comment on above: Order Comment: Healt hcare Worker?: N Result Comment: Testing for SARS-CoV-2 by RT-PCR This test was developed and its performance characteristics determined by [employer] ([employer]) and validated at the [facility]. This test has not been FDA cleared [...] is terminated or revoked sooner. PERFORMED BY: [place] [address] PATHOLOGIST [employer] ANTONY ELIAS M.D. Performed By: #### C BC, CMP, PHOS, MG, LIPID #### [address] COVID-19 Positive/NegativeOr dered By: Justin Francisco on 01-03-2022 SARS-CoV-2 (COVID-19) N gene ARMINDA+probe Ql (Resp) Negative Negative [facility] Comment on above: Testing for SARS-CoV -2 by RT-PCRThis test was developed and its performance characteristics determined by [employer] ([employer]) and validated at the [facility]. This test has not been FDA cleared [...] (COVID-19) Ag IA.rapid Ql (Resp) Negative Negative [facility] Comment on above: This is a duplicate [facility] SARS Antigen ([employer]) result to be used for statistical tracking purpose only. CT head/brain wo conon 01-03 CT head/brain wo [place] [address] CT Scan Report Signed Patient: Kathy Porter MR#: [id number] : 1960 Acct:[id number] Age/Sex: 61 / F ADM Date: 01/03/22 Loc: ER Room: Type: [facility] ER Attending Dr: Copies to: Justin [...] Rajinder Cardona M.D.01/03/2022 3:21 PM Dictation Location: [place] [address] Transcribed By: GELA 01/03/22 1521 Dictated By: Rajinder Cardona II, MD 01/03/22 1518 Signed By: 01/03/22 1521 Normal [facility] Cannabinoids [Presence] in U rine by Screen methodOrdered By: Justin Francisco on 01-03-2022 Cannabinoids Screen Ql (U) Negative Negative [facility] Comment on above: These are unconfirme d results and should not be used for legal purposes. Drug Cut-Off Concentration: AMPH 1000 ng/mL TERRY 200 ng/mL HONG 200 ng/mL COCM 300 ng/mL OP 300 ng/mL PCP 25 ng/mL THC 20 ng/mL Color Auto (U)Ordered By: Aman Francisco on 01-03-2022 Color (U) Yellow Yellow [facility] Complete Blood Count Auto Di ffon 01-03-2022 Basophils (Bld) [#/Vol] 0.0 10*3/uL Normal 0.0-0.2 [facility] Comment on above: Result Comment: PERF ORMED BY: [place] [address] PATHOLOGIST [employer] ANTONY ELIAS M.D. Performed By: #### C MP, T4F, TSH3, CBC, ETOH, JUAN, ACET, VALP #### [facility] [address] [place] [address] [place] Basophils/100 WBC (Bld) 0.6 % Normal . [facility] Comment on above: Performed By: #### C MP, T4F, TSH3, CBC, ETOH, JUAN, ACET, VALP #### [facility] [address] [place] [address] [place] Eosinophils (Bld) [#/Vol] 0.1 10*3/uL Normal 0.0-0.45 [facility] Comment on above: Performed By: #### C MP, T4F, TSH3, CBC, ETOH, JUAN, ACET, VALP #### [facility] [address] [place] [address] [place] Eosinophils/100 WBC (Bld) 1.4 % Normal . [facility] Comment on above: Performed By: #### C MP, T4F, TSH3, CBC, ETOH, JUAN, ACET, VALP #### [address] Erythrocyte distribution width (RBC) [Ratio] 15.7 % High 11.9-15.3 [facility] Comment on above: Performed By: #### C MP, T4F, TSH3, CBC, ETOH, JUAN, ACET, VALP #### [address] Hematocrit (Bld) [Volume fraction] 41.0 % Normal 34.0-46.4 [facility] Comment on above: Performed By: #### C MP, T4F, TSH3, CBC, ETOH, JUAN, ACET, VALP #### [address] Hemoglobin (Bld) [Mass/Vol] 13.4 g/dL Normal 11.8-15.4 [facility] Comment on above: Performed By: #### C MP, T4F, TSH3, CBC, ETOH, JUAN, ACET, VALP #### [address] Lymphocytes (Bld) [#/Vol] 1.4 10*3/uL Normal 1.00-4.8 [facility] Comment on above: Performed By: #### C MP, T4F, TSH3, CBC, ETOH, JUAN, ACET, VALP #### [address] Lymphocytes/100 WBC (Bld) 22.3 % Normal . [facility] Comment on above: Performed By: #### C MP, T4F, TSH3, CBC, ETOH, JUAN, ACET, VALP #### [address] MCH (RBC) [Entitic mass] 29.7 pg Normal 24.7-34.3 [facility] Comment on above: Performed By: #### C MP, T4F, TSH3, CBC, ETOH, JUAN, ACET, VALP #### [facility] [address] MCV (RBC) [Entitic vol] 91.0 fL Normal 80-100 [facility] Comment on above: Performed By: #### C MP, T4F, TSH3, CBC, ETOH, JUAN, ACET, VALP #### [address] Mean Corpuscular HGB Conc 32.6 g/dL Normal 32.0-35.0 [facility] Comment on above: Performed By: #### C MP, T4F, TSH3, CBC, ETOH, JUAN, ACET, VALP #### [address] Monocytes (Bld) [#/Vol] 0.6 10*3/uL Normal 0.0-0.8 [facility] Comment on above: Performed By: #### C MP, T4F, TSH3, CBC, ETOH, JUAN, ACET, VALP #### [address] Monocytes/100 WBC (Bld) 8.9 % Normal . [facility] Comment on above: Performed By: #### C MP, T4F, TSH3, CBC, ETOH, JUAN, ACET, VALP #### [address] Neutrophils (Bld) [#/Vol] 4.3 10*3/uL Normal 1.8-7.7 [facility] Comment on above: Performed By: #### C MP, T4F, TSH3, CBC, ETOH, JUAN, ACET, VALP #### [address] Neutrophils/100 WBC (Bld) 66.8 % Normal . [facility] Comment on above: Performed By: #### C MP, T4F, TSH3, CBC, ETOH, JUAN, ACET, VALP #### [address] Nucleated RBC/100 WBC (Bld) [Ratio] 0.1 % Normal 0-0.5 [facility] Comment on above: Performed By: #### C MP, T4F, TSH3, CBC, ETOH, JUAN, ACET, VALP #### [address] Platelet mean volume (Bld) [Entitic vol] 8.8 fL Normal 6.3-10.7 [facility] Comment on above: Performed By: #### C MP, T4F, TSH3, CBC, ETOH, JUAN, ACET, VALP #### [address] Platelets (Bld) [#/Vol] 236 10*3/uL Normal 150-450 [facility] Comment on above: Performed By: #### C MP, T4F, TSH3, CBC, ETOH, JUAN, ACET, VALP #### [address] RBC (Bld) [#/Vol] 4.50 10*6/uL Normal 3.60-5.00 [facility] Comment on above: Performed By: #### C MP, T4F, TSH3, CBC, ETOH, JUAN, ACET, VALP #### [address] WBC (Bld) [#/Vol] 6.4 10*3/uL Normal 4.5-11.0 [facility] Comment on above: Performed By: #### C MP, T4F, TSH3, CBC, ETOH, JUAN, ACET, VALP #### [address] Comprehensive Metabolic Pane clarice 01-03-2022 Albumin [Mass/Vol] 3.6 g/dL Normal 3.2-5.5 [facility] Comment on above: Performed By: #### C BC, CMP, PHOS, MG, LIPID #### [address] Albumin/Globulin [Mass ratio] 1.2 {ratio} Normal [facility] Comment on above: Performed By: #### C BC, CMP, PHOS, MG, LIPID #### [facility] [address] ALP [Catalytic activity/Vol] 40 U/L Normal 32-92 [facility] Comment on above: Performed By: #### C BC, CMP, PHOS, MG, LIPID #### [facility] [address] ALT [Catalytic activity/Vol] 14 U/L Normal 10-60 [facility] Comment on above: Performed By: #### C BC, CMP, PHOS, MG, LIPID #### [facility] [address] Anion gap [Moles/Vol] 16.7 mmol/L High 6.0-15.0 [facility] Comment on above: Performed By: #### C BC, CMP, PHOS, MG, LIPID #### [facility] [address] AST [Catalytic activity/Vol] 18 U/L Normal 10-42 [facility] Comment on above: Performed By: #### C BC, CMP, PHOS, MG, LIPID #### [facility] [address] [place] [address] [place] Bilirubin [Mass/Vol] 0.6 mg/dL Normal 0.3-1.2 [facility] Comment on above: Performed By: #### C BC, CMP, PHOS, MG, LIPID #### [facility] [address] [place] [address] [place] Calcium [Mass/Vol] 9.5 mg/dL Normal 8.2-10.2 [facility] Comment on above: Performed By: #### C BC, CMP, PHOS, MG, LIPID #### [facility] [address] [place] [address] [place] Chloride [Moles/Vol] 99 mmol/L Normal 95-114 [facility] Comment on above: Performed By: #### C BC, CMP, PHOS, MG, LIPID #### [facility] [address] [place] [address] [place] CO2 [Moles/Vol] 23.6 mmol/L Normal 22.0-30.0 [facility] Comment on above: Performed By: #### C BC, CMP, PHOS, MG, LIPID #### [facility] [address] Creatinine [Mass/Vol] 1.38 mg/dL High 0.44-1.03 [facility] Comment on above: Performed By: #### C BC, CMP, PHOS, MG, LIPID #### [facility] [address] Creatinine Clr Calc Pharmacy 43.00 [facility] Comment on above: Performed By: #### C BC, CMP, PHOS, MG, LIPID #### [facility] [address] Estimated GFR ( [place] 47 [facility] Comment on above: Result Comment: GFR estimated reference range: According to KDOQI guidelines, <60 ml/min/1.73m2 is sufficient to diagnose a patient with chronic kidney disease. Performed By: #### C BC, CMP, PHOS, MG, LIPID #### [facility] [address] Estimated GFR (Non- Am 39 [facility] Comment on above: Performed By: #### C BC, CMP, PHOS, MG, LIPID #### [facility] [address] Globulin (S) [Mass/Vol] 3.1 g/dL [facility] Comment on above: Performed By: #### C BC, CMP, PHOS, MG, LIPID #### [facility] [address] Glucose [Mass/Vol] 137 mg/dL High 70-100 [facility] Comment on above: Result Comment: [facility] Glucose Reference Range is dependent on time and content of last meal. Glucose of more than 200 mg/dL in a nonstressed, ambulatory subject supports the diagnosis of Diabetes Mellitus. ADA recommended reference range Performed By: #### C BC, CMP, PHOS, MG, LIPID #### [facility] [address] Potassium [Moles/Vol] 4.3 mmol/L Normal 3.5-5.1 [facility] Comment on above: Performed By: #### C BC, CMP, PHOS, MG, LIPID #### [facility] [address] Protein [Mass/Vol] 6.7 g/dL Normal 6.1-7.9 [facility] Comment on above: Performed By: #### C BC, CMP, PHOS, MG, LIPID #### [address] Sodium [Moles/Vol] 135 mmol/L Low 136-146 [facility] Comment on above: Performed By: #### C BC, CMP, PHOS, MG, LIPID #### [address] Urea nitrogen [Mass/Vol] 14 mg/dL Normal 9-23 [facility] Comment on above: Performed By: #### C BC, CMP, PHOS, MG, LIPID #### [address] Creatinine and Glomerular fi ltration rate.predicted panel (S/P/Bld)Ordered By: Justin Francisco on 01-03-2022 Creatinine [Mass/Vol] 1.38 mg/dL 0.44-1.03 [facility] Dipstick and Microscopicon 1 Appearance (U) Clear Normal Clear [facility] Comment on above: Order Comment: Name Collection Type:: Clean-Voided Midstream Performed By: #### C BC, CMP, PHOS, MG, LIPID #### [address] Bacteria,Urine 2+ High None Seen [facility] Comment on above: Order Comment: Name Collection Type:: Clean-Voided Midstream Performed By: #### C BC, CMP, PHOS, MG, LIPID #### [address] Bilirubin,Urine Negative Normal Negative [facility] Comment on above: Order Comment: Name Collection Type:: Clean-Voided Midstream Performed By: #### C BC, CMP, PHOS, MG, LIPID #### [facility] [address] [place] [address] [place] Color (U) Yellow Normal Yellow [facility] Comment on above: Order Comment: Name Collection Type:: Clean-Voided Midstream Performed By: #### C BC, CMP, PHOS, MG, LIPID #### [facility] [address] Glucose Ql (U) Normal Normal Normal [facility] Comment on above: Order Comment: Name Collection Type:: Clean-Voided Midstream Performed By: #### C BC, CMP, PHOS, MG, LIPID #### [facility] [address] [place] [address] [place] Hyaline Casts,Urine 0-8 Normal 0-8 [facility] Comment on above: Order Comment: Name Collection Type:: Clean-Voided Midstream Performed By: #### C BC, CMP, PHOS, MG, LIPID #### [facility] [address] [place] [address] [place] Ketones Ql (U) Negative Normal Negative [facility] Comment on above: Order Comment: Name Collection Type:: Clean-Voided Midstream Performed By: #### C BC, CMP, PHOS, MG, LIPID #### [facility] [address] [place] [address] Leukocyte esterase Test strip Ql (U) 2+ High Negative [facility] Comment on above: Order Comment: Name Collection Type:: Clean-Voided Midstream Performed By: #### C BC, CMP, PHOS, MG, LIPID #### [facility] [address] [place] [address] [place] Nitrite,Urine Negative Normal Negative [facility] Comment on above: Order Comment: Name Collection Type:: Clean-Voided Midstream Performed By: #### C BC, CMP, PHOS, MG, LIPID #### [facility] [address] [place] [address] [place] Occult Blood,Urine Negative Normal Negative [facility] Comment on above: Order Comment: Name Collection Type:: Clean-Voided Midstream Result Comment: PERF ORMED BY: [place] [address] PATHOLOGIST [employer] ANTONY ELIAS M.D. Performed By: #### C BC, CMP, PHOS, MG, LIPID #### [address] pH (U) 5.5 [pH] Normal 5.0-9.0 [facility] Comment on above: Order Comment: Name Collection Type:: Clean-Voided Midstream Performed By: #### C BC, CMP, PHOS, MG, LIPID #### [address] Protein,Urine Negative Normal Negative [facility] Comment on above: Order Comment: Name Collection Type:: Clean-Voided Midstream Performed By: #### C BC, CMP, PHOS, MG, LIPID #### [address] RBC,Urine None Seen Normal 0-4 [facility] Comment on above: Order Comment: Name Collection Type:: Clean-Voided Midstream Performed By: #### C BC, CMP, PHOS, MG, LIPID #### [address] Specificy [place],Urine 1.012 Normal 1.001-1.030 [facility] Comment on above: Order Comment: Name Collection Type:: Clean-Voided Midstream Performed By: #### C BC, CMP, PHOS, MG, LIPID #### [address] Squamous Epithelial Cell,Urine 3-4 High 0-2 [facility] Comment on above: Order Comment: Name Collection Type:: Clean-Voided Midstream Performed By: #### C BC, CMP, PHOS, MG, LIPID #### [address] Urobilinogen,Urine Normal Normal Normal [facility] Comment on above: Order Comment: Name Collection Type:: Clean-Voided Midstream Performed By: #### C BC, CMP, PHOS, MG, LIPID #### [facility] [address] [place] [address] WBC,Urine 5-9 High 0-4 [facility] Comment on above: Order Comment: Name Collection Type:: Clean-Voided Midstream Performed By: #### C BC, CMP, PHOS, MG, LIPID #### [facility] [address] [place] [address] Yeast,Urine None Seen Normal None Seen [facility] Comment on above: Order Comment: Name Collection Type:: Clean-Voided Midstream Result Comment: PERF ORMED BY: [place] [address] PATHOLOGIST [employer] ANTONY ELIAS M.D. Performed By: #### C BC, CMP, PHOS, MG, LIPID #### [facility] [address] [place] [address] Drug Screen,Urineon 01-04-20 Amphetamine Screen,Urine Negative Normal Negative [facility] Comment on above: Performed By: #### C BC, CMP, PHOS, MG, LIPID #### [facility] [address] [place] [address] Barbiturate Screen,Urine Negative Normal Negative [facility] Comment on above: Performed By: #### C BC, CMP, PHOS, MG, LIPID #### [facility] [address] [place] [address] Benzodiazepines Screen,Urine Negative Normal Negative [facility] Comment on above: Performed By: #### C BC, CMP, PHOS, MG, LIPID #### [facility] [address] [place] [address] Cannabinoid Screen,Urine Negative Normal Negative [facility] Comment on above: Result Comment: Thes e are unconfirmed results and should not be used for legal purposes. Drug Cut-Off Concentration: AMPH 1000 ng/mL TERRY 200 ng/mL HONG 200 ng/mL COCM 300 ng/mL OP 300 ng/mL PCP 25 ng/mL THC 20 ng/mL PERFORMED BY: [place] [address] PATHOLOGIST [employer] ANTONY ELIAS M.D. Performed By: #### C BC, CMP, PHOS, MG, LIPID #### [facility] [address] Cocaine Screen,Urine Negative Normal Negative [facility] Comment on above: Performed By: #### C BC, CMP, PHOS, MG, LIPID #### [facility] [address] Opiate Screen,Urine Negative Normal Negative [facility] Comment on above: Performed By: #### C BC, CMP, PHOS, MG, LIPID #### [facility] [address] Phencyclidine Screen,Urine Negative Normal Negative [facility] Comment on above: Performed By: #### C BC, CMP, PHOS, MG, LIPID #### [facility] [address] ECG 12 lead ECGon 01-03-2022 ECG 12 lead ECG [facility] [address] [place] [address] Electrocardiograph Report Signed Patient: Kathy Porter MR#: [id number] : 1960 Acct:[id number] Age/Sex: 61 / F ADM Date: 01/03/22 Loc: Room: [address] [place] [address] Type: DIS INOo Attending Dr: Henry Burnett [...] ECGs available Confirmed by Justin Francisco DO ([id number]) on 01/03/2022 7:17:59 PM Referred By: Electronically Signed By:Justin Francisco DO Transcribed By: MUS Signed By Justin Francisco DO 01/03 191 Normal [facility] Eosinophils Auto (Bld) [#/Vo l]Ordered By: Justin Francisco on 01-03-2022 Eosinophils (Bld) [#/Vol] 0.1 10*3/uL 0.0-0.45 [facility] Eosinophils/100 WBC Auto (Bl d)Ordered By: Justin Francisco on 01-03-2022 Eosinophils/100 WBC (Bld) 1.4 % . [facility] Erythrocyte distribution wid th Auto (RBC) [Ratio]Ordered By: Justin Francisco on 01-03-2022 Erythrocyte distribution width (RBC) [Ratio] 15.7 % 11.9-15.3 [facility] Estimated glomerular filtrat ion rate (GFR) non- AmericanOrdered By: Justin Francisco on 01-03-2022 GFR/1.73 sq M.predicted among non-blacks MDRD (S/P/Bld) [Vol rate/Area] 39 mL/Min [facility] Ethyl Alcohol Profileon Ethanol [Mass/Vol] mg/dL Normal [facility] Comment on above: Performed By: #### C MP, T4F, TSH3, CBC, ETOH, JUAN, ACET, VALP #### [facility] [address] [place] [address] Percent Ethanol Not performed Normal [facility] Comment on above: Result Comment: PERF ORMED BY: [address] [place] [address] PATHOLOGIST [employer] ANTONY ELIAS M.D. Performed By: #### C MP, T4F, TSH3, CBC, ETOH, JUAN, ACET, VALP #### [facility] [address] Free T4 (Free Thyroxine)on Free T4 [Mass/Vol] 1.10 ng/dL Normal 0.61-1.12 [facility] Comment on above: Performed By: #### C BC, CMP, PHOS, MG, LIPID #### [facility] [address] Globulin Calc (S) [Mass/Vol] Ordered By: Justin Francisco on 01-03-2022 Globulin (S) [Mass/Vol] 3.1 g/dL [facility] Hematocrit Auto (Bld) [Volum e fraction]Ordered By: Justin Francisco on 01-03-2022 Hematocrit (Bld) [Volume fraction] 41.0 % 34.0-46.4 [facility] Ketones Auto test strip (U) [Mass/Vol]Ordered By: Justin Francisco on 01-03-2022 Ketones (U) [Mass/Vol] Negative Negative Fi [facility] - Drug toxicology Ordered By: Justin Francisco on 01-03-2022 Opiates Ql (U) Negative Negative [facility] Laboratory - Hematology and Cell countsOrdered By: Justin Francisco on 01-03-2022 Nucleated RBC/100 WBC (Bld) [Ratio] 0.1 % 0-0.5 [facility] Laboratory - UrinalysisOrder ed By: Justin Francisco on 01-03-2022 Hyaline casts LM Ql (Urine sed) 0-8 [LPF] 0-8 [facility] Lymphocytes Auto (Bld) [#/Vo l]Ordered By: Justin Francisco on 01-03-2022 Lymphocytes (Bld) [#/Vol] 1.4 10*3/uL 1.00-4.8 [facility] Lymphocytes/100 WBC Auto (Bl d)Ordered By: Justin Francisco on 01-03-2022 Lymphocytes/100 WBC (Bld) 22.3 % . [facility] MCH Auto (RBC) [Entitic mass ]Ordered By: Justin Francisco on 01-03-2022 MCH (RBC) [Entitic mass] 29.7 pg 24.7-34.3 [facility] MCHC Auto (RBC) [Mass/Vol]Or dered By: Justin Francisco on 01-03-2022 MCHC (RBC) [Mass/Vol] 32.6 g/dL 32.0-35.0 [facility] MCV Auto (RBC) [Entitic vol] Ordered By: Justin Francisco on 01-03-2022 MCV (RBC) [Entitic vol] 91.0 fL 80-100 [facility] Monocytes Auto (Bld) [#/Vol] Ordered By: Justin Francisco on 01-03-2022 Monocytes (Bld) [#/Vol] 0.6 10*3/uL 0.0-0.8 [facility] Monocytes/100 WBC Auto (Bld) Ordered By: Justin Francisco on 01-03-2022 Monocytes/100 WBC (Bld) 8.9 % . [facility] Neutrophils Auto (Bld) [#/Vo l]Ordered By: Justin Francisco on 01-03-2022 Neutrophils (Bld) [#/Vol] 4.3 10*3/uL 1.8-7.7 [facility] Neutrophils/100 WBC Auto (Bl d)Ordered By: Justin Francisco on 01-03-2022 Neutrophils/100 WBC (Bld) 66.8 % . [facility] Nitrite Test strip Ql (U)Ord ered By: Justin Francisco on 01-03-2022 Nitrite Ql (U) Negative Negative [facility] No Panel InformationOrdered By: Justin Francisco on 01-03-2022 Estimated GFR () 47 mL/Min [facility] Comment on above: GFR estimated refere nce range: According to KDOQI guidelines, <60 ml/min/1.73m2 is sufficient to diagnose a patient with chronic kidney disease. Pharmacy Creatinine Clearance (Chem 43.00 [facility] Valproic Acid (Depakene) Level 59.0 ug/mL 50.0-100.0 [facility] Comment on above: Last dose: - SARS Antigen (LFIA) [facility] Phencyclidine Screen Ql (U)O rdered By: Justin Francisco on 01-03-2022 Phencyclidine Ql (U) Negative Negative [facility] Platelet mean volume Auto (B ld) [Entitic vol]Ordered By: Justin Francisco on 01-03-2022 Platelet mean volume (Bld) [Entitic vol] 8.8 fL 6.3-10.7 [facility] Platelets Auto (Bld) [#/Vol] Ordered By: Justin Francisco on 10-04-2022 Platelets (Bld) [#/Vol] 236 10*3/uL 150-450 [facility] Protein Auto test strip (U) [Mass/Vol]Ordered By: Justin Francisco on 01-03-2022 Protein (U) [Mass/Vol] Negative Negative [facility] Protein [Mass/volume] in Ser um or PlasmaOrdered By: Justin Francisco on 01-03-2022 Protein [Mass/Vol] 6.7 g/dL 6.1-7.9 [facility] RBC Auto (Bld) [#/Vol]Ordere d By: Justin Francisco on 01-03-2022 RBC (Bld) [#/Vol] 4.50 10*6/uL 3.60-5.00 [facility] Salicylateon 01-03-2022 Salicylate < 4.0 Low 15.0-30.0 [facility] Comment on above: Result Comment: Phuong ents treated with Sulfasalazine may generate a false high result for Salicylate. Patients treated with Sulfapyridine may generate a false low result for Salicylate. Performed By: #### C MP, T4F, TSH3, CBC, ETOH, JUAN, ACET, VALP #### [facility] [address] Salicylates [Mass/volume] in Serum or PlasmaOrdered By: Justin Francisco on 01-03-2022 Salicylates [Mass/Vol] mg/dL 15.0-30.0 [facility] Comment on above: Patients treated wit h Sulfasalazine may generate a false high result for Salicylate.Patients treated with Sulfapyridine may generate a false low result for Salicylate. Serum or plasma acetaminophe n measurement (mass/volume)Ordered By: Justin Francisco on 01-03-2022 Acetaminophen [Mass/Vol] 25.3 ug/mL 10.0-30.0 [facility] Serum or plasma alanine angeles otransferase measurement without P-5'-P (enzymatic activiOrdered By: Justin Francisco on 01-03-2022 ALT No additional P-5'-P [Catalytic activity/Vol] 14 U/L [facility] Serum or plasma albumin/glob ulin mass ratioOrdered By: Justin Francisco on 01-03-2022 Albumin/Globulin [Mass ratio] 1.2 {ratio} [facility] Serum or plasma alkaline flaquita sphatase measurement (enzymatic activity/volume)Ordered By: Justin Francisco on 01-03-2022 ALP [Catalytic activity/Vol] 40 U/L 32-92 [facility] Serum or plasma anion gap de terminationOrdered By: Justin Francisco on 01-03-2022 Anion gap [Moles/Vol] 16.7 mmol/L 6.0-15.0 [facility] Serum or plasma aspartate am inotransferase measurement (enzymatic activity/volume)Ordered By: Justin Francisco on 01-03-2022 AST [Catalytic activity/Vol] 18 U/L 10- [facility] Serum or plasma calcium sarah urement (mass/volume)Ordered By: Justin Francisco on 01-03-2022 Calcium [Mass/Vol] 9.5 mg/dL 8.2-10.2 [facility] Serum or plasma chloride deep surement (moles/volume)Ordered By: Justin Francisco on 01-03-2022 Chloride [Moles/Vol] 99 mmol/L 95-114 [facility] Serum or plasma ethanol sarah urement (mass/volume)Ordered By: Justin Francisco on 01-03-2022 Ethanol [Mass/Vol] mg/dL [facility] Ethanol [Mass/Vol] TNP [facility] Comment on above: Test not performed Serum or plasma glucose sarah urement (mass/volume)Ordered By: Justin Francisco on 01-03-2022 Glucose [Mass/Vol] 137 mg/dL 70-100 [facility] Comment on above: ADA recommended refe rence rangeRandom Glucose Reference Range is dependent on time and content of last meal. Glucose of more than 200 mg/dL in a nonstressed, ambulatory subject supports the diagnosis of Diabetes Mellitus. Serum or plasma potassium me asurement (moles/volume)Ordered By: Justin Francisco on 01-03-2022 Potassium [Moles/Vol] 4.3 mmol/L 3.5-5.1 [facility] Serum or plasma sodium measu rement (moles/volume)Ordered By: Justin Francisco on 01-03-2022 Sodium [Moles/Vol] 135 mmol/L 136-146 [facility] Serum or plasma total biliru bin measurement (mass/volume)Ordered By: Justin Francisco on 01-03-2022 Bilirubin [Mass/Vol] 0.6 mg/dL 0.3-1.2 [facility] Serum or plasma total carbon dioxide measurement (moles/volume)Ordered By: Justin Francisco on 01-03-2022 CO2 [Moles/Vol] 23.6 mmol/L 22.0-30.0 [facility] Serum or plasma urea nitroge n measurement (mass/volume)Ordered By: Justin Francisco on 01-03-2022 Urea nitrogen [Mass/Vol] 14 mg/dL 12-23 [facility] Delores Ag Negativeon 01-04-20 Delores Ag Negative Negative Normal Negative [facility] Comment on above: Result Comment: This is a duplicate Delores SARS Antigen (MARLINE) result to be used for statistical tracking purpose only. PERFORMED BY: [place] [address] PATHOLOGIST [employer] ANTONY ELIAS M.D. Performed By: #### C BC, CMP, PHOS, MG, LIPID #### [address] Specific gravity Auto test s trip (U) [Rel density]Ordered By: Justin Francisco on 01-03-2022 Specific gravity (U) [Rel density] 1.012 1.001-1.030 [facility] Squamous epithelial cells de tection in urine sediment by light microscopyOrdered By: Justin Francisco on 01-03-2022 Epithelial cells.squamous LM Ql (Urine sed) 3-4 [HPF] 0-2 [facility] TSH DL <= 0.005 mIU/L QnOrde red By: Justin Francisco on 01-03-2022 TSH Qn 4.71 m[IU]/L 0.45-5.33 [facility] Thyroid Stimulating Hormoneo n 01-03-2022 TSH Qn 4.71 m[IU]/L Normal 0.45-5.33 [facility] Comment on above: Result Comment: PERF ORMED BY: [place] [address] PATHOLOGIST [employer] ANTONY ELIAS M.D. Performed By: #### C BC, CMP, PHOS, MG, LIPID #### [facility] [address] Thyroxine (T4) free [Mass/vo lume] in Serum or PlasmaOrdered By: Justin Francisco on 01-03-2022 Free T4 [Mass/Vol] 1.10 ng/dL 0.61-1.12 [facility] Urine Cultureon 01-03-2022 Bacteria identified Cx Nom (U) ORGANISM: Escherichia coli (O:ESCCOL) [place] Count >100,000 Aerobic AHMET Charge (NUC86) ---- [...] B-LACTAM DRUGS. PERFORMED BY: [facility] [address] PATHOLOGIST [employer] ANTONY ELIAS M.D. Normal [facility] Comment on above: Performed By: #### C BC, CMP, PHOS, MG, LIPID #### [facility] [address] [place] [address] [facility] Urine bacteria detection by automated methodOrdered By: Justin Francisco on 01-03-2022 Bacteria Auto Ql (U) 2+ None Seen [facility] Urine clarity by refractomet ry automatedOrdered By: Justin Francisco on 01-03-2022 Clarity Refractometry automated (U) Clear Clear [facility] Urine cocaine detectionOrder ed By: Justin Francisco on 01-03-2022 Cocaine Ql (U) Negative Negative [facility] Urine glucose measurement by automated test strip (mass/volume)Ordered By: Justin Francisco on 01-03-2022 Glucose Auto test strip (U) [Mass/Vol] Normal mg/dL Normal [facility] Urine hemoglobin detection b y automated test stripOrdered By: Justin Francisco on 01-03-2022 Hemoglobin Auto test strip Ql (U) Negative Negative [facility] Urine leukocyte esterase det ection by automated test stripOrdered By: Justin Francisco on 01-03-2022 Leukocyte esterase Auto test strip Ql (U) 2+ Negative [facility] Urobilinogen Auto test strip (U) [Mass/Vol]Ordered By: Justin Francisco on 01-03-2022 Urobilinogen (U) [Mass/Vol] Normal mg/dL Normal [facility] Valproic Acid (in house)on 1 Valproic Acid (in house) 59.0 ug/mL Normal 50.0-100.0 [facility] Comment on above: Result Comment: Last dose: - PERFORMED BY: [place] [address] PATHOLOGIST [employer] AN[employer]Y ELIAS M.D. Performed By: #### C MP, T4F, TSH3, CBC, ETOH, JUAN, ACET, VALP #### [facility] [address] [place] [address] [facility] Yeast detection in urine sed iment by light microscopyOrdered By: Justin Francisco on 01-03-2022 Yeast LM Ql (Urine sed) None seen [HPF] None Se en [facility] pH Auto test strip (U)Ordere d By: Justin Francisco on 01-03-2022 pH (U) 5.5 [pH] 5.0-9.0 [facility] CBC AUTO DIFFon 10-27-2021 BASO # 0.1 103/ul Normal 0.0-0.1 [facility] Comment on above: Performed By: #### C BC ####[facility] [address] [place], [place] [address]Dr. Julio Goddard Basophils/100 WBC (Bld) 0.6 % Normal 0.2-2.0 [facility] Comment on above: Performed By: #### C BC ####[facility] [address] [place], [place] [address]Dr. Julio Goddard EO # 0.2 103/ul Normal 0.0-0.7 [facility] Comment on above: Performed By: #### C BC ####[facility] [address] [place], [place] [address]Dr. Julio Goddard Eosinophils/100 WBC (Bld) 2.4 % Normal 0.9-7.0 [facility] Comment on above: Performed By: #### C BC ####[facility] [address] [place], [place] [address]Dr. Julio Goddard Erythrocyte distribution width (RBC) [Ratio] 15.0 % Normal 11.0-15.0 [facility] Comment on above: Performed By: #### C BC ####[facility] [address] [place], [place] [address]Dr. Julio Goddard Hematocrit (Bld) [Volume fraction] 37.4 % Normal 36.0-48.0 [facility] Comment on above: Performed By: #### C BC ####[facility] [address] [place], [place] [address]Dr. Julio Goddard Hemoglobin (Bld) [Mass/Vol] 12.2 g/dL Normal 12.0-16.0 [facility] Comment on above: Performed By: #### C BC ####[facility] [address] [place] [id number]. Hiralharesh Rupesh IG # 0.04 10e3/ul Critically high 0.00-0.03 [facility] Comment on above: Performed By: #### C BC ####[facility] [address] [place] [id number]. Julio Goddard IG % 0.4 % Normal 0.0-0.5 [facility] Comment on above: Performed By: #### C BC ####[facility] [address] [place] [id number]. Julio Goddard LYMPH # 2.3 103/ul Normal 1.2-3.8 [facility] Comment on above: Performed By: #### C BC ####[facility] [address] [place] [address]Dr. Julio Goddard Lymphocytes/100 WBC (Bld) 23.6 % Normal 20.5-60.0 [facility] Comment on above: Performed By: #### C BC ####[facility] [address] [place] [id number]. Julio Goddard MANUAL DIFF REQ NO Normal [facility] Comment on above: Performed By: #### C BC ####[facility] [address] [place] [id number]. Julio Goddard MCH (RBC) [Entitic mass] 29.3 pg Normal 26.7-34.0 [facility] Comment on above: Performed By: #### C BC ####[facility] [address] [place] [id number]. Julio Goddard MCHC (RBC) [Mass/Vol] 32.6 g/dL Normal 29.9-35.2 [facility] Comment on above: Performed By: #### C BC ####[facility] [address] [place] [id number]. Julio Goddard MCV (RBC) [Entitic vol] 89.7 fL Normal 81.0-99.0 [facility] Comment on above: Performed By: #### C BC ####[facility] [address] [place] [id number]. Julio Goddard MONO # 0.6 103/ul Normal 0.3-0.8 [facility] Comment on above: Performed By: #### C BC ####[facility] [address] [place] [id number]. Julio Goddard Monocytes/100 WBC (Bld) 5.5 % Normal 1.7-12.0 [facility] Comment on above: Performed By: #### C BC ####[facility] [address] [place] [id number]. Julio Goddard NEUT # 6.7 103/ul Critically high 1.4-6.5 [facility] Comment on above: Performed By: #### C BC ####[facility] [address] [place] [address]Dr. Julio Goddard Neutrophils/100 WBC (Bld) 67.5 % Normal 43.0-75.0 [facility] Comment on above: Performed By: #### C BC ####[facility] [facility] [id number] [place] [address]Dr. Julio Goddard Platelet mean volume (Bld) [Entitic vol] 10.2 fL Normal 9.5-13.5 [facility] Comment on above: Performed By: #### C BC ####[facility] [address] [place] [address]Dr. Julio Goddard PLT 296 103/ul Normal 150-450 [facility] Comment on above: Performed By: #### C BC ####[facility] [address] [place] [id number]. Julio Goddard RBC 4.17 106/ul Critically low 4.20-5.40 [facility] Comment on above: Performed By: #### C BC ####[facility] [address] [place] [id number]. Julio Goddard WBC 9.9 103/ul Normal 4.0-11.0 [facility] Comment on above: Performed By: #### C BC ####[facility] [address] [place], [place] [address]Xb. Julio Goddard LIPID PROFILEon 10-27-2021 CHOL-HDL RATIO NORM SEE BELOW [facility] Comment on above: Result Comment: 3.3 - 4.4 LOW RISK 4.4 - 7.1 AVERAGE RISK 7.1 - 11.0 MODERATE RISK >11.0 HIGH RISK Performed By: #### C MP, LIPID ####[facility] [address] [place], [place] [address]Ds. Julio Goddard Cholesterol [Mass/Vol] 148 mg/dL Normal <=200 [facility] Comment on above: Performed By: #### C MP, LIPID ####[facility] [address] [place] [id number]. Julio Goddard Cholesterol in HDL [Mass/Vol] 60 mg/dL Normal 40-60 [facility] Comment on above: Performed By: #### C MP, LIPID ####[facility] [address] [place] [id number]. Julio Goddard Cholesterol in LDL [Mass/Vol] 72.2 mg/dL Normal [facility] Comment on above: Performed By: #### C MP, LIPID ####[facility] [address] [place], [place] [address]Km. Julio Goddard Cholesterol.total/Tila sterol in HDL [Mass ratio] 2.5 {ratio} Normal [facility] Comment on above: Performed By: #### C MP, LIPID ####[facility] [address] [place] [id number]. Julio Goddard HDL NORMAL > or = 60 mg/dl - LO W CARDIOVASCULAR RISK <40 mg/dl - HIGH CARDIOVASCULAR RISK Normal [facility] Comment on above: Performed By: #### C MP, LIPID ####[facility] [address] [place] [id number]. Julio Goddard LDL CALC NORMAL SEE BELOW Normal [facility] Comment on above: Result Comment: <100 mg/dl OPTIMAL 100 - 129 mg/dl NEAR OR ABOVE OPTIMAL 130 - 159 mg/dl BORDERLINE HIGH 160 - 189 mg/dl HIGH >190 mg/dl VERY HIGH Performed By: #### C MP, LIPID ####[facility] [address] [place], [place] [address]VbDr. Julio Goddard Triglyceride [Mass/Vol] 79 mg/dL Normal <=150 [facility] Comment on above: Performed By: #### C MP, LIPID ####[facility] [address] [place], [place] [address]TlDr. Julio Goddard VLDL CALC 15.8 mg/dL Normal [facility] Comment on above: Performed By: #### C MP, LIPID ####[facility] [address] [place], [place] [address]HtDr. Julio Goddard PROF 14(COMP METB)on 022 Albumin [Mass/Vol] 3.7 g/dL Normal 3.4-5.0 [facility] Comment on above: Performed By: #### C MP, LIPID #### [facility] [address] [place] [address] Dr. Julio Goddard Albumin/Globulin [Mass ratio] 1.0 {ratio} Normal [facility] Comment on above: Performed By: #### C MP, LIPID #### [facility] [address] [place] [address] Dr. Julio Goddard ALP [Catalytic activity/Vol] 53 U/L Normal 46-116 [facility] Comment on above: Performed By: #### C MP, LIPID #### [facility] [address] [place] [address] [address] Julio Goddard ALT [Catalytic activity/Vol] 15 U/L Normal 14-59 [facility] Comment on above: Performed By: #### C MP, LIPID #### [facility] [address] [place] [address] [address] Julio Goddard Anion gap [Moles/Vol] 16.1 mmol/L Normal [facility] Comment on above: Performed By: #### C MP, LIPID #### [facility] [address] [place] [address] [address] Julio Goddard AST [Catalytic activity/Vol] 8 U/L Critically low 15-37 [facility] Comment on above: Performed By: #### C MP, LIPID #### [facility] [address] [place] [address] [address] Julio Goddard Bilirubin [Mass/Vol] 0.5 mg/dL Normal 0.2-1.0 [facility] Comment on above: Performed By: #### C MP, LIPID #### [facility] [address] [place] [address] [address] Julio Goddard Calcium [Mass/Vol] 9.1 mg/dL Normal 8.5-10.1 [facility] Comment on above: Performed By: #### C MP, LIPID #### [facility] [address] [place] [address] [address] Julio Goddard Chloride [Moles/Vol] 106 mmol/L Normal 98-107 [facility] Comment on above: Performed By: #### C MP, LIPID #### [facility] [address] [place] [address] [address] Julio Goddard CO2 [Moles/Vol] 24.1 mmol/L Normal 21.0-32.0 [facility] [place] [facility] Comment on above: Performed By: #### C MP, LIPID #### [facility] [address] [place] [address] [address] Julio Goddard Creatinine [Mass/Vol] 1.40 mg/dL Critically high 0.55-1.02 [facility] Comment on above: Performed By: #### C MP, LIPID #### [facility] [address] [place] [address] [address] Julio Goddard EGFR-AF [facility] 47 mL/min/1.73m2 Critically low >=60 [facility] Comment on above: Performed By: #### C MP, LIPID #### [facility] [address] [place] [address] [address] Julio Goddard EGFR-NON AF [facility] 39 mL/min/1.73m2 Critically low >=60 [facility] Comment on above: Performed By: #### C MP, LIPID #### [facility] [address] [place] [address] [address] Julio Goddard Globulin (S) [Mass/Vol] 3.6 g/dL Normal [facility] Comment on above: Performed By: #### C MP, LIPID #### [facility] [address] [place] [address] Dr. Julio Goddard Glucose [Mass/Vol] 95 mg/dL Normal 74-106 [facility] Comment on above: Performed By: #### C MP, LIPID #### [facility] [address] [place] [address] Dr. Julio Goddard Potassium [Moles/Vol] 4.2 mmol/L Normal 3.5-5.1 [facility] Comment on above: Performed By: #### C MP, LIPID #### [facility] [address] [place] [address] Dr. Julio Goddard Protein [Mass/Vol] 7.3 g/dL Normal 6.4-8.2 [facility] Comment on above: Performed By: #### C MP, LIPID #### [facility] [address] [place] [address] Dr. Julio Goddard Sodium [Moles/Vol] 142 mmol/L Normal 136-145 [facility] Comment on above: Performed By: #### C MP, LIPID #### [facility] [address] [place] [address] Dr. Julio Goddard Urea nitrogen [Mass/Vol] 18.0 mg/dL Normal 7.0-18.0 [facility] Comment on above: Performed By: #### C MP, LIPID #### [facility] [address] [place] [address] Dr. Julio Goddard Urea nitrogen/Creatinine [Mass ratio] 12.9 mg/mg Normal [facility] Comment on above: Performed By: #### C MP, LIPID #### [facility] [address] [place] [address] Dr. Julio Goddard INSULINon 03-23-2021 Insulin 10.0 uIU/mL Normal 2.6-24.9 [facility] Comment on above: Performed By: #### I NSULIN #### [facility] [address] [place] [address] Dr. Julio Goddard VIT D 25-OH LABCORPon 2020 Vitamin D, 25-Hydroxy 11.8 ng/mL Critically low 30.0-100.0 [facility] Comment on above: Result Comment: Swati min D deficiency has been defined by the [place] of [employer] and an Endocrine Society practice guideline as a level of serum 25-OH vitamin D less than 20 ng/mL (1,2). The Endocrine Society went on to further define vitamin D insufficiency as a level between 21 and 29 ng/mL (2). 1. IOM ([place] of Medicine). 2010. Dietary reference intakes for calcium and D. [place]ardo [place]: The National Academies Press. 2. Matt MF, Wilma [place], [place] ELIZONDO, et al. Evaluation, treatment, and prevention of vitamin D deficiency: an Endocrine Society clinical practice guideline. JCEM. 2010; 96(7):1911-30. Performed By: #### V ITADLC ####[facility] [address] [place] [address]Dr. Julio Goddard CBC AUTO DIFFon 03-22-2021 BASO # 0.1 103/ul Normal 0.0-0.1 [facility] Comment on above: Performed By: #### C BC #### [facility] [address] [place] [address] [address] Julio Goddard Basophils/100 WBC (Bld) 0.8 % Normal 0.2-2.0 [facility] Comment on above: Performed By: #### C BC #### [facility] [address] [place] [address] [address] Julio Goddard EO # 0.2 103/ul Normal 0.0-0.7 [facility] Comment on above: Performed By: #### C BC #### [facility] [address] [place] [address] [address] Julio Goddard Eosinophils/100 WBC (Bld) 2.6 % Normal 0.9-7.0 [facility] Comment on above: Performed By: #### C BC #### [facility] [address] [address] [address] Julio Goddard Erythrocyte distribution width (RBC) [Ratio] 14.2 % Normal 11.0-15.0 [facility] Comment on above: Performed By: #### C BC #### [facility] [address] [place] [address] Dr. Julio Goddard Hematocrit (Bld) [Volume fraction] 37.4 % Normal 36.0-48.0 [facility] Comment on above: Performed By: #### C BC #### [facility] [address] [place] [address] Dr. Julio Goddard Hemoglobin (Bld) [Mass/Vol] 11.9 g/dL Critically low 12.0-16.0 [facility] Comment on above: Performed By: #### C BC #### [facility] [address] [place] [address] Dr. Julio Goddard IG # 0.02 10e3/ul Normal 0.00-0.03 [facility] Comment on above: Performed By: #### C BC #### [facility] [address] [place] [address] Dr. Julio Goddard IG % 0.3 % Normal 0.0-0.5 [facility] Comment on above: Performed By: #### C BC #### [facility] [address] [place] [address] Dr. Julio Goddard LYMPH # 1.8 103/ul Normal 1.2-3.8 [facility] Comment on above: Performed By: #### C BC #### [facility] [address] [place] [address] Dr. Julio Goddard Lymphocytes/100 WBC (Bld) 27.6 % Normal 20.5-60.0 [facility] Comment on above: Performed By: #### C BC #### [facility] [address] [place] [address] Dr. Julio Goddard MANUAL DIFF REQ NO Normal [facility] Comment on above: Performed By: #### C BC #### [facility] [address] [place] [address] Dr. Julio Goddard MCH (RBC) [Entitic mass] 29.1 pg Normal 26.7-34.0 [facility] Comment on above: Performed By: #### C BC #### [facility] [address] [address] [address] Julio Goddard MCHC (RBC) [Mass/Vol] 31.8 g/dL Normal 29.9-35.2 [facility] Comment on above: Performed By: #### C BC #### [facility] [address] [place] [address] [address] Julio Goddard MCV (RBC) [Entitic vol] 91.4 fL Normal 81.0-99.0 [facility] Comment on above: Performed By: #### C BC #### [facility] [address] [place] [address] Dr. Julio Goddard MONO # 0.6 103/ul Normal 0.3-0.8 [facility] Comment on above: Performed By: #### C BC #### [facility] [address] [place] [address] Dr. Julio Goddard Monocytes/100 WBC (Bld) 8.7 % Normal 1.7-12.0 [facility] Comment on above: Performed By: #### C BC #### [facility] [address] [place] [address] Dr. Julio Goddard NEUT # 3.9 103/ul Normal 1.4-6.5 [facility] Comment on above: Performed By: #### C BC #### [facility] [address] [place] [address] Dr. Julio Goddard Neutrophils/100 WBC (Bld) 60.0 % Normal 43.0-75.0 [facility] Comment on above: Performed By: #### C BC #### [facility] [address] [place] [address] Dr. Julio Goddard Platelet mean volume (Bld) [Entitic vol] 10.1 fL Normal 9.5-13.5 [facility] Comment on above: Performed By: #### C BC #### [facility] [address] [place] [address] [address] Julio Goddard PLT 263 103/ul Normal 150-450 [facility] Comment on above: Performed By: #### C BC #### [facility] [address] [address] [address] Julio Goddard RBC 4.09 106/ul Critically low 4.20-5.40 [facility] Comment on above: Performed By: #### C BC #### [facility] [address] [address] [address] Julio Goddard WBC 6.5 103/ul Normal 4.0-11.0 [facility] Comment on above: Performed By: #### C BC #### [facility] [address] [place] [address] [address] Julio Goddard FREE THYROXINE INDEX T7on FTI 3.50 Normal [facility] Comment on above: Performed By: #### C MP, T7, LIPID, TSH #### [facility] [address] [place] [address] [address] Julio Goddard T3U 35.0 % Normal 23.5-40.5 [facility] Comment on above: Performed By: #### C MP, T7, LIPID, TSH #### [facility] [address] [address] [address] Julio Goddard T4 [Mass/Vol] 10.00 ug/dL Normal 5.53-11.00 [facility] Comment on above: Performed By: #### C MP, T7, LIPID, TSH #### [facility] [address] [address] [address] Julio Goddard GLYCOHEMOGLOBIN A1Con 2020 ADA RECOMMENDATION ADA THERAPEUTIC TARGET 6.0 - 7.0 ACTION SUGGESTED > 7.0 Normal [facility] Comment on above: Performed By: #### A 1C #### [facility] [address] [address] [address] Julio Goddard Glucose [Mass/Vol] 103 mg/dL Normal [facility] Comment on above: Performed By: #### A 1C #### [facility] [address] [address] [address] Julio Goddard HbA1c (Bld) [Mass fraction] 5.2 % Normal <=6.0 [facility] Comment on above: Performed By: #### A 1C #### [facility] [address] [address] [address] Julio Goddard IRONon 03-22-2021 Iron [Mass/Vol] 55.0 ug/dL Normal 37.0-170.0 [facility] Comment on above: Performed By: #### I MARIA E ####[facility] [address] [place], [place] [address]AiDr. Julio Goddard LIPID PROFILEon 03-22-2021 CHOL-HDL RATIO NORM SEE BELOW [facility] Comment on above: Result Comment: 3.3 - 4.4 LOW RISK 4.4 - 7.1 AVERAGE RISK 7.1 - 11.0 MODERATE RISK >11.0 HIGH RISK Performed By: #### C MP, T7, LIPID, TSH #### [facility] [address] [address] [address] Julio Goddard Cholesterol [Mass/Vol] 163 mg/dL Normal <=200 [facility] Comment on above: Performed By: #### C MP, T7, LIPID, TSH #### [facility] [address] [address] [address] Julio Goddard Cholesterol in HDL [Mass/Vol] 65 mg/dL Normal [facility] Comment on above: Performed By: #### C MP, T7, LIPID, TSH #### [facility] [address] [address] [address] Julio Goddard Cholesterol in LDL [Mass/Vol] 80.8 mg/dL Normal [facility] Comment on above: Performed By: #### C MP, T7, LIPID, TSH #### [facility] [address] [address] [address] Julio Goddard Cholesterol.total/Tila sterol in HDL [Mass ratio] 2.5 {ratio} Normal [facility] Comment on above: Performed By: #### C MP, T7, LIPID, TSH #### [facility] [address] [address] [address] Julio Goddard HDL NORMAL > or = 60 mg/dl - LO W CARDIOVASCULAR RISK <40 mg/dl - HIGH CARDIOVASCULAR RISK Normal [facility] Comment on above: Performed By: #### C MP, T7, LIPID, TSH #### [facility] [address] [address] [address] Julio Goddard LDL CALC NORMAL SEE BELOW Normal [facility] Comment on above: Result Comment: <100 mg/dl OPTIMAL 100 - 129 mg/dl NEAR OR ABOVE OPTIMAL 130 - 159 mg/dl BORDERLINE HIGH 160 - 189 mg/dl HIGH >190 mg/dl VERY HIGH Performed By: #### C MP, T7, LIPID, TSH #### [facility] [address] [address] [address] Julio Goddard Triglyceride [Mass/Vol] 86 mg/dL Normal <=150 [facility] Comment on above: Performed By: #### C MP, T7, LIPID, TSH #### [facility] [address] [address] [address] Julio Goddard VLDL CALC 17.2 mg/dL Normal [facility] Comment on above: Performed By: #### C MP, T7, LIPID, TSH #### [facility] [address] [address] [address] Julio Goddard PROF 14(COMP METB)on 021 Albumin [Mass/Vol] 3.5 g/dL Normal 3.5-5.0 [facility] Comment on above: Performed By: #### C MP, T7, LIPID, TSH #### [facility] [address] [address] [address] Julio Goddard Albumin/Globulin [Mass ratio] 1.0 {ratio} Normal [facility] Comment on above: Performed By: #### C MP, T7, LIPID, TSH #### [facility] [address] [address] [address] Julio Goddard ALP [Catalytic activity/Vol] 58 U/L Normal 38-126 [facility] Comment on above: Performed By: #### C MP, T7, LIPID, TSH #### [facility] [address] [address] [address] Julio Goddard ALT [Catalytic activity/Vol] 16 U/L Normal 9-52 [facility] Comment on above: Performed By: #### C MP, T7, LIPID, TSH #### [facility] [address] [address] [address] Julio Goddard Anion gap [Moles/Vol] 13.0 mmol/L Normal [facility] Comment on above: Performed By: #### C MP, T7, LIPID, TSH #### [facility] [address] [address] [address] Julio Goddard AST [Catalytic activity/Vol] 10 U/L Critically low 14-36 [facility] Comment on above: Performed By: #### C MP, T7, LIPID, TSH #### [facility] [address] [place] [address] Dr. Julio Goddard Bilirubin [Mass/Vol] 0.6 mg/dL Normal 0.2-1.3 [facility] Comment on above: Performed By: #### C MP, T7, LIPID, TSH #### [facility] [address] [place] [address] Dr. Julio Goddard Calcium [Mass/Vol] 9.4 mg/dL Normal 8.4-10.2 [facility] Comment on above: Performed By: #### C MP, T7, LIPID, TSH #### [facility] [address] [place] [address] Dr. Julio Goddard Chloride [Moles/Vol] 105 mmol/L Normal 98-107 [facility] Comment on above: Performed By: #### C MP, T7, LIPID, TSH #### [facility] [address] [address] [address] Julio Goddard CO2 [Moles/Vol] 28.3 mmol/L Normal 22.0-30.0 [facility] Comment on above: Performed By: #### C MP, T7, LIPID, TSH #### [facility] [address] [place] [address] Dr. Julio Goddard Creatinine [Mass/Vol] 1.37 mg/dL Critically high 0.52-1.04 [facility] Comment on above: Performed By: #### C MP, T7, LIPID, TSH #### [facility] [address] [address] [address] Julio Goddard EGFR-AF [facility] 48 mL/min/1.73m2 Critically low >=60 [facility] Comment on above: Performed By: #### C MP, T7, LIPID, TSH #### [facility] [address] [address] [address] Julio Goddard EGFR-NON AF [facility] 40 mL/min/1.73m2 Critically low >=60 [facility] Comment on above: Performed By: #### C MP, T7, LIPID, TSH #### [facility] [address] [address] [address] Julio Goddard Globulin (S) [Mass/Vol] 3.5 g/dL Normal [facility] Comment on above: Performed By: #### C MP, T7, LIPID, TSH #### [facility] [address] [place] [address] Dr. Julio Goddard Glucose [Mass/Vol] 110 mg/dL Critically high 74-106 [facility] Comment on above: Performed By: #### C MP, T7, LIPID, TSH #### [facility] [address] [address] [address] Julio Goddard Potassium [Moles/Vol] 4.3 mmol/L Normal 3.4-5.0 [facility] Comment on above: Performed By: #### C MP, T7, LIPID, TSH #### [facility] [address] [address] [address] Julio Goddard Protein [Mass/Vol] 7.0 g/dL Normal 6.1-8.2 [facility] Comment on above: Performed By: #### C MP, T7, LIPID, TSH #### [facility] [address] [address] [address] Julio Goddard Sodium [Moles/Vol] 142 mmol/L Normal 137-145 [facility] Comment on above: Performed By: #### C MP, T7, LIPID, TSH #### [facility] [address] [address] [address] Julio Goddard Urea nitrogen [Mass/Vol] 13.0 mg/dL Normal 7.0-17.0 [facility] Comment on above: Performed By: #### C MP, T7, LIPID, TSH #### [facility] [address] [address] [address] Julio Goddard Urea nitrogen/Creatinine [Mass ratio] 9.5 mg/mg Normal [facility] Comment on above: Performed By: #### C MP, T7, LIPID, TSH #### [facility] [address] [place], [place] [address] Dr. Julio Goddard TSHon 03-22-2021 TSH 2.734 uIU/mL Normal 0.470-4.680 [facility] Comment on above: Performed By: #### C MP, T7, LIPID, TSH #### [facility] [address] [place] [address] Dr. Julio Goddard TSH RANGE SEE BELOW Normal [facility] Comment on above: Result Comment: <0.3 4 UIU/ml HYPERTHYROID 0.34-5.60 UIU/ml EUTHYROID >5.60 UIU/ml HYPOTHYROID Performed By: #### C MP, T7, LIPID, TSH #### [facility] [address] [place], [place] [address] Dr. Julio Goddard Vital Signs Date Time Vital Sign Value Performing Clinician Facility 02-12-2024 08:50-0500 Body height 157.5 cm Angelo De La Cruz MD Work Phone: [facility] 02-12-2024 08:50-0500 Body mass index (BMI) [Ratio] 34.75 kg/m2 Angelo De La Cruz MD Work Phone: [facility] 02-12-2024 08:50-0500 Body weight 86.18 kg Angelo De La Cruz MD Work Phone: [facility] 02-12-2024 08:50-0500 Diastolic blood pressure 76 mm[Hg] Angelo De La Cruz MD Work Phone: [facility] 02-12-2024 08:50-0500 Systolic blood pressure 119 mm[Hg] Angelo De La Cruz MD Work Phone: [facility] 02-05-2024 10:32-0500 Body height 157.5 cm Angelo De La Cruz MD Work Phone: [facility] 02-05-2024 10:32-0500 Body mass index (BMI) [Ratio] 34.75 kg/m2 Angelo De La Cruz MD Work Phone: [facility] 02-05-2024 10:32-0500 Body weight 86.18 kg Angelo De La Cruz MD Work Phone: [facility] 02-05-2024 10:32-0500 Diastolic blood pressure 81 mm[Hg] Angelo De La Cruz MD Work Phone: [facility] 02-05-2024 10:32-0500 Systolic blood pressure 121 mm[Hg] Angelo De La Cruz MD Work Phone: [facility] 11-27-2023 14:51-0400 Blood Pressure Location OXANA DEVEN [facility] 11-27-2023 14:51-0400 Diastolic blood pressure 96 mm[Hg] OXNAA DEVEN [facility] [facility]-27-2023 14:51-0400 Heart rate 66 /min OXANA DEVEN [facility] 11-27-2023 14:51-0400 Systolic blood pressure 144 mm[Hg] OXANA DEVEN [facility] 08-21-2023 09:39-0400 Blood Pressure Location OXANA DEVEN [facility] 08-21-2023 09:39-0400 Diastolic blood pressure 63 mm[Hg] OXANA DEVEN [facility] 08-21-2023 09:39-0400 Heart rate 74 /min OXANA DEVEN [facility] 08-21-2023 09:39-0400 Respiratory rate 19 /min OXANA CARVALHO [facility] 08-21-2023 09:39-0400 Systolic blood pressure 108 mm[Hg] OXANA CARVALHO [facility] 05-30-2022 13:47-0500 Body height 157.5 cm Scott Mcallister MD Work Phone: [facility] 05-30-2022 13:47-0500 Body mass index (BMI) [Ratio] 32.74 kg/m2 Scott Mcallister MD Work Phone: [facility] 05-30-2022 13:47-0500 Body weight 81.19 kg Scott Mcallister MD Work Phone: [facility] 05-30-2022 13:47-0500 Diastolic blood pressure 84 mm[Hg] Scott Mcallister MD Work Phone: [facility] 05-30-2022 13:47-0500 Heart rate 76 /min Scott Mcallister MD Work Phone: [facility] 05-30-2022 13:47-0500 Respiratory rate 16 /min Scott Mcallister MD Work Phone: [facility] 05-30-2022 13:47-0500 SaO2% (BldA) [Mass fraction] 97 % Scott Mcallister MD Work Phone: [facility] 05-30-2022 13:47-0500 Systolic blood pressure 129 mm[Hg] Scott Mcallister MD Work Phone: [facility] 02-28-2022 12:48-0500 Body height 157.5 cm Scott Mcallister MD Work Phone: [facility] 02-28-2022 12:48-0500 Body mass index (BMI) [Ratio] 32.74 kg/m2 Scott Mcallister MD Work Phone: [facility] 02-28-2022 12:48-0500 Body weight 81.19 kg Scott Mcallister MD Work Phone: [facility] 02-28-2022 12:48-0500 Diastolic blood pressure 83 mm[Hg] Scott Mcallister MD Work Phone: [facility] 02-28-2022 12:48-0500 Heart rate 78 /min Scott Mcallister MD Work Phone: [facility] 02-28-2022 12:48-0500 Respiratory rate 18 /min Scott Mcallister MD Work Phone: [facility] 02-28-2022 12:48-0500 SaO2% (BldA) [Mass fraction] 95 % Scott Mcallister MD Work Phone: [facility] 02-28-2022 12:48-0500 Systolic blood pressure 132 mm[Hg] Scott Mcallister MD Work Phone: [facility] 01-05-2022 11:19-0400 Diastolic blood pressure 79 mm[Hg] DO Justin Francisco Work Phone: [facility] 01-05-2022 11:19-0400 Heart rate 75 /min DO Justin Francisco Work Phone: [facility] 01-05-2022 11:19-0400 Respiratory rate 18 /min DO Justin Francisco Work Phone: [facility] 01-05-2022 11:19-0400 SaO2% (BldA) [Mass fraction] 97 % DO Justin Francisco Work Phone: [facility] 01-05-2022 11:19-0400 Systolic blood pressure 126 mm[Hg] DO Justin Francisco Work Phone: [facility] 01-05-2022 08:17-0400 Body temperature 97.5 [degF] DO Justinjosef Francisco Work Phone: [facility] 01-05-2022 04:44-0400 Body weight 79.8 kg DO Justin Nolan Work Phone: [facility] 01-04-2022 11:34-0400 Body height 157.48 cm DO Justinjosef Francisco Work Phone: [facility] 01-03-2022 17:04-0400 Diastolic blood pressure 110 mm[Hg] DO Justin Nolan Work Phone: [facility] 01-03-2022 17:04-0400 Heart rate 88 /min DO Justin Francisco Work Phone: [facility] 01-03-2022 17:04-0400 Respiratory rate 20 /min DO Justin Francisco Work Phone: [facility] 01-03-2022 17:04-0400 SaO2% (BldA) [Mass fraction] 97 % DO Justin Francisco Work Phone: [facility] 01-03-2022 17:04-0400 Systolic blood pressure 180 mm[Hg] DO Justin Francisco Work Phone: [facility] 01-03-2022 14:43-0400 Body height 157.48 cm DO Justin Francisco Work Phone: [facility] 01-03-2022 14:43-0400 Body weight 80 kg DO Justin Francisco Work Phone: [facility] 01-03-2022 13:59-0400 Body temperature 98.5 [degF] DO Justin Nolan Work Phone: [facility] 10-14-2021 13:13-0400 Body height 157.5 cm Scott Mcallister MD Work Phone: [facility] 10-14-2021 13:13-0400 Body mass index (BMI) [Ratio] 32.92 kg/m2 Scott Mcallister MD Work Phone: [facility] 10-14-2021 13:13-0400 Body weight 81.65 kg Scott Mcallister MD Work Phone: [facility] 10-14-2021 13:13-0400 Diastolic blood pressure 85 mm[Hg] cSott Mcallister MD Work Phone: [facility] 10-14-2021 13:13-0400 Heart rate 76 /min Scott Mcallister MD Work Phone: [facility] 10-14-2021 13:13-0400 Respiratory rate 16 /min Scott Mcallister MD Work Phone: [facility] 10-14-2021 13:13-0400 SaO2% (BldA) [Mass fraction] 95 % Scott Mcallister MD Work Phone: [facility] 10-14-2021 13:13-0400 Systolic blood pressure 125 mm[Hg] Scott Mcallister MD Work Phone: [facility] 07-19-2021 12:55-0400 Body height 157.5 cm Scott Mcallister MD Work Phone: [facility] 07-19-2021 12:55-0400 Body mass index (BMI) [Ratio] 32.92 kg/m2 Scott Mcallister MD Work Phone: [facility] 07-19-2021 12:55-0400 Body weight 81.65 kg Scott Mcallister MD Work Phone: [facility] 07-19-2021 12:55-0400 Diastolic blood pressure 86 mm[Hg] Scott Mcallister MD Work Phone: [facility] 07-19-2021 12:55-0400 Heart rate 67 /min Scott Mcallister MD Work Phone: [facility] 07-19-2021 12:55-0400 Respiratory rate 16 /min Scott Mcallister MD Work Phone: [facility] 07-19-2021 12:55-0400 SaO2% (BldA) [Mass fraction] 98 % Scott Mcallister MD Work Phone: [facility] 07-19-2021 12:55-0400 Systolic blood pressure 126 mm[Hg] Scott Mcallister MD Work Phone: [facility] 09-24-2020 13:12-0400 Body height 157.5 cm Scott Mcallister MD Work Phone: [facility] 09-24-2020 13:12-0400 Body mass index (BMI) [Ratio] 32.92 kg/m2 Scott Mcallister MD Work Phone: [facility] 09-24-2020 13:12-0400 Body weight 81.65 kg Scott Mcallister MD Work Phone: [facility] 09-24-2020 13:12-0400 Diastolic blood pressure 89 mm[Hg] Scott Mcallister MD Work Phone: [facility] 09-24-2020 13:12-0400 Heart rate 67 /min Scott Mcallister MD Work Phone: [facility] 09-24-2020 13:12-0400 Respiratory rate 16 /min Scott Mcallister MD Work Phone: [facility] 09-24-2020 13:12-0400 SaO2% (BldA) [Mass fraction] 95 % Scott Mcallister MD Work Phone: [facility] 09-24-2020 13:12-0400 Systolic blood pressure 146 mm[Hg] Scott Mcallister MD Work Phone: [facility] 07-27-2020 12:59-0400 Body height 165.1 cm Scott Mcallister MD Work Phone: [facility] 07-27-2020 12:59-0400 Body mass index (BMI) [Ratio] 22.63 kg/m2 Scott Mcallister MD Work Phone: [facility] 07-27-2020 12:59-0400 Body weight 61.69 kg Scott Mcallister MD Work Phone: [facility] 05-17-2020 13:110500 BP Diastolic 103 mm[Hg] [facility] [place] 05-17-2020 13:0500 BP Systolic 163 mm[Hg] [facility] [place] 05-17-2020 13:0500 Height 157.5 cm [facility] [place] 05-17-2020 13:11-0500 Pulse (Heart Rate) 66 /min [facility] [place] 05-17-2020 13:110500 Pulse Oximetry 96 % [facility] [place] 05-17-2020 13:0500 Respiratory Rate 16 /min [facility] [place] Encounters Encounter Date Encounter Type Care Provider [...] encounter procedure OXANA CARVALHO [facility] Start: 11-27-2023 End: 11-27-2023 Refill Scott Mcallister MD Work Phone: [facility] Start: 11-02-2023 End: 11-04-2023 ambulatory DESIRE C [facility] Start: 11-02-2023 End: 11-04-2023 ambulatory DESIRE C [facility] Start: 09-28-2023 End: 09-30-2023 ambulatory DESIRE C [facility] Start: 09-28-2023 End: 09-30-2023 Subsequent hospital visit by physician Peter Arnett MD Work Phone: [facility] Start: 08-21-2023 End: 08-21-2023 ambulatory Peter Arnett Facility:[facility] Start: 08-21-2023 End: 08-21-2023 Patient encounter procedure OXANA CARVALHO [facility] Start: 05-07-2023 ambulatory Peter Arnett Facility:[facility] Start: 05-30-2022 End: 05-30-2022 ambulatory SCOTT MCALLISTER [facility] Start: 05-30-2022 End: 05-30-2022 Office outpatient visit 15 minutes Scott Mcallister MD Work Phone: [facility] Comment on above: Bipolar 1 disorder, mixed, mild (HCC) (Primary Dx); Insomnia due to mental disorder; VICKIE (generalized anxiety disorder) Start: 05-10-2022 Refill Scott Mcallister MD Work Phone: [facility] Start: 03-30-2022 Refill Scott Mcallister MD Work Phone: [facility] Comment on above: 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; VICKIE (generalized anxiety disorder) Start: 02-28-2022 End: 02-28-2022 ambulatory UPENDER GEHLOT [facility] Start: 02-28-2022 End: 02-28-2022 Office outpatient visit 25 minutes Scott Mcallister MD Work Phone: [facility] Comment on above: Bipolar 1 disorder, depressed, mild (HCC) (Primary Dx); Insomnia due to mental disorder; VICKIE (generalized anxiety disorder) Start: 01-19-2022 End: 01-20-[address] PETER ARNETT Facility:[facility] Start: 01-09-2022 End: 01-09-2022 ambulatory UPENDER GEHLOT [facility] Start: 01-03-2022 End: 01-05-2022 ambulatory Peter Arnett Facility:[facility] Start: 01-03-2022 End: 01-05-2022 Evaluation and management of inpatient DO Justin Francisco Work Phone: [facility] Start: 01-03-2022 End: 01-05-2022 observation encounter DO Justin Francisco Work Phone: [facility] Work Phone: Start: 10-27-2021 End: 10-28-2021 ambulatory UPRANI MCALLISTER Facility:[facility] Start: 10-14-2021 End: 10-14-2021 ambulatory UPENDER GEHLOT [facility] Start: 10-14-2021 End: 10-14-2021 Office outpatient visit 15 minutes Scott Mcallister MD Work Phone: [facility] Comment on above: Bipolar 1 disorder, depressed, moderate (HCC) (Primary Dx); Insomnia due to mental disorder; VICKIE (generalized anxiety disorder) Start: 10-05-2021 ambulatory SCOTT MCALLISTER [facility] Start: 07-22-2021 ambulatory PETER AMADOJosef [facility] Start: 07-19-2021 End: 07-19-2021 ambulatory PETER Josef [facility] Start: 07-19-2021 End: 07-19-2021 Office outpatient visit 15 minutes Scott Mcallister MD Work Phone: [facility] Comment on above: Bipolar 1 disorder, depressed, moderate (HCC) (Primary Dx); Insomnia due to mental disorder; VICKIE (generalized anxiety disorder) Start: 05-16-2021 Refill Sarah Leigh MA [facility] Comment on above: 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 (Primary Dx) 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 Start: 03-30-2021 Encounter for genera l adult medical examination without abnormal findings DR PETER ARNETT [facility] Start: 03-29-2021 Refill Nellie Sumner MA [facility] Start: 03-22-2021 End: 03-23-[address] PETER ARNETT Facility:[facility] Start: 03-22-2021 End: 03-23-2021 Encounter for general adult medical examination without abnormal findings DR PETER ARNETT Facility:[facility] Start: 12-07-2020 Refill Lidia hernandez INVESTIGATIVE REPORTER [facility] Comment on above: 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; VICKIE (generalized anxiety disorder) Start: 09-24-2020 End: 09-24-2020 Office outpatient visit 25 minutes Scott Mcallister MD Work Phone: [facility] Comment on above: Bipolar 1 disorder, depressed, mild (HCC) (Primary Dx); Insomnia due to mental disorder; VICKIE (generalized anxiety disorder) Start: 08-31-2020 End: 08-31-2020 Refill Lidia Mahoney LPN [facility] Comment on above: 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; VICKIE (Generalized Anxiety Disorder) Start: 07-27-2020 End: 07-27-2020 Phys/qhp telephone evaluation 11-20 min Scott Mcallister MD Work Phone: [facility] Comment on above: Bipolar 1 disorder, depressed, mild (HCC) (Primary Dx); Insomnia due to mental disorder; VICKIE (Generalized Anxiety Disorder) Start: 05-17-2020 End: 05-17-2020 Office outpatient visit 15 minutes [employer] Work Phone: [facility] Comment on above: Bipolar 1 disorder, depressed, mild (HCC) (Primary Dx); VICKIE (Generalized Anxiety Disorder); Insomnia due to mental disorder Start: 04-06-2020 End: 04-06-2020 Phys/qhp telephone evaluation 11-20 min [employer] Work Phone: [facility] Comment on above: Bipolar 1 disorder, depressed, mild (HCC); VICKIE (Generalized Anxiety Disorder); Insomnia due to mental disorder Procedures Date Procedure Procedure Detail Performing Clinician Start: 02-12-2024 AUDITORY FUNCTION TESTS Lilibeth Pena [facility] Work Phone: Start: 01-03-2022 CT of head [...] EST Office Visit [facility] [address] [facility] [address] [place] [address] Angelo De La Cruz MD [address] [facility] [address] [place] [address] Arrived [facility] Comment on above: Arrived Start: 12-02-2023 Influenza vaccination Influenza Vacc ine (#1) [facility] Start: 11-01-2023 Influenza vaccination Flu vacc ine (Season Ended) [facility] Start: 05-19-2023 Screening for malign ant neoplasm of colon [facility] Start: 2022 Respiratory Syncytia l Virus (RSV) or age 60 yrs+ (1 - 1-dose 60+ series) Respiratory Syncytial Virus (RSV) or age 60 yrs+ (1 - 1-dose 60+ series) [facility] Start: 12-01-2022 COVID-19 Vaccine ( season) COVID-19 Vaccine ( season) [facility] Start: 05-30-2022 End: 05-30-2022 Patient encounter procedure 05/30/2022 Office Visit Psychiatry Scott Mcallister MD [address] [place] [id number] [facility] Start: 01-09-2022 End: 01-09-2022 Patient encounter procedure 01/09/2022 Office Visit Psychiatry Scott Mcallister MD [address] [id number] [facility] Start: 01-05-2022 [facility] Start: 01-04-2022 Comprehensive metabo lic 2000 panel - Serum or Plasma [facility] Start: 01-04-2022 Lipid panel [facility] Start: 01-04-2022 Magnesium measurement [facility] Start: 01-04-2022 Phosphate [Mass/volu me] in Serum or Plasma [facility] Start: 01-04-2022 [facility] Start: 01-03-2022 Referral to psychiatrist [facility] Start: 01-03-2022 Hospital admission [facility] Start: 01-03-2022 [facility] Start: 12-01-2021 Influenza vaccination [facility] Start: 10-14-2021 End: 10-14-2021 Patient encounter procedure 10/14/2021 Office Visit Psychiatry Scott Mcallister MD [address] [place] [id number] [facility] Start: 07-28-2021 COVID-19 Vaccine (4 - Booster for Pfizer series) COVID-19 Vaccine (4 - Booster for Pfizer series) [facility] Start: 07-15-2021 End: 07-15-2021 Patient encounter procedure 07/15/2021 Office Visit Psychiatry Scott Mcallister MD [address] [place] [id number] [facility] Start: 05-24-2021 COVID-19 Vaccine (4 - Booster for Pfizer series) COVID-19 Vaccine (4 - Booster for Pfizer series) [facility] Start: 04-18-2021 End: 04-18-2021 Patient encounter procedure 04/18/2021 Office Visit Scott Moy MD [address] [place] [id number] [facility] Start: 01-12-2021 COVID-19 Vaccine (3 - Booster for Pfizer series) COVID-19 Vaccine (3 - Booster for Pfizer series) [facility] Start: 01-03-2021 End: 01-03-2021 Patient encounter procedure [facility] Start: 12-01-2020 Influenza vaccination [facility] Start: 09-24-2020 End: 09-24-2020 Patient encounter procedure 09/24/2020 Office Visit Psychiatry Scott Mcallister MD [address] [place] [address] [phone] [facility] Start: 09-14-2020 End: 09-14-2020 Patient encounter procedure 09/14/2020 Office Visit Psychiatry Scott Mcallister MD [address] [place] [address] [phone] [facility] Start: 09-10-2020 End: 09-10-2020 Office Visit 09/10/2020 Office Visit Scott Moy MD [address] [place] [address] [phone] [facility] Start: 12-02-2019 Influenza vaccinatio n given Sequential Influenza Vaccine (#1) [facility] Start: 2012 Administration of he rpes zoster vaccine Zoster Vaccines (1 of 2) [facility] Start: 2012 Screening for malign ant neoplasm of colon [facility] Start: 2012 Shingles vaccine (1 of 2) Shingles vaccine (1 of 2) [facility] Start: 12-12-2007 Screening for malign ant neoplasm of colon [facility] Start: 2002 Lipid panel Lipids [facility] Start: 2002 Screening for malign ant neoplasm of breast [facility] Start: 1992 Screening for malign ant neoplasm of cervix [facility] Start: 12-12-1983 Screening for malign ant neoplasm of cervix Pap Smear [facility] Start: 1981 DTaP/Tdap/Td vaccine (1 - Tdap) DTaP/Tdap/Td vaccine (1 - Tdap) [facility] Start: 1980 Hepatitis C antibody , confirmatory test Hepatitis C Screening [facility] Start: 1980 Hepatitis C screening [facility] Start: 1978 COVID-19 Vaccine (1 of 2) COVID-19 Vaccine (1 of 2) [facility] Start: 1977 HIV screening [facility] Start: 1974 Depression Screen Depression Screen [facility] Start: 1965 History and physical examination, annual for health maintenance Wellness Visit [facility] Start: 1962 Screening for malign ant neoplasm of cervix Pap Smear [facility] Start: 1962 Screening for malign ant neoplasm of colon [facility] Start: 1962 Screening mammography Mammogram [facility] Start: 1962 Tetanus vaccination Tetanus: Every 1 0yrs [facility] Bacteria identified in Urine by Culture [facility] Work Phone: End: 10-14-2022 Complete blood count with white cell differential, manual CBC and Differential Lab Routine Bipolar 1 disorder, depressed, moderate (HCC) 1 Occurrences starting 10/14/2021 until 10/14/2022 [facility] Comment on above: 1 Occurrences starti ng 10/14/2021 until 10/14/2022 End: 10-14-2022 Comprehensive metabolic 2000 panel - Serum or Plasma Comprehensive Metabolic Panel Lab Routine Bipolar 1 disorder, depressed, moderate (HCC) 1 Occurrences starting 10/14/2021 until 10/14/2022 [facility] Work Phone: Comment on above: 1 Occurrences starti ng 10/14/2021 until 10/14/2022 End: 10-14-2022 Lipid 1996 panel - Serum or Plasma Lipid Panel Lab Routine Bipolar 1 disorder, depressed, moderate (HCC) 1 Occurrences starting 10/14/2021 until 10/14/2022 [facility] Comment on above: 1 Occurrences starti ng 10/14/2021 until 10/14/2022 Patient Education High Blood Pre ssure (DC) Urinary Tract Infection, Adult (DC) Acute Kidney Injury (DC) Cefuroxime Hydralazine [facility] Work Phone: Patient referral [facility] Work Phone: Immunizations Immunization Date Immunization Notes Care Provider Aly oglesby 01-05-2022 influenza, injectabl e, quadrivalent, preservative free DO Justin Francisco Work Phone: [facility] 01-05-2022 influenza virus vaccine, unspecified formulation Scott Mcallister MD Work Phone: [facility] 03-29-2021 COVID-19 mRNA, Comirnaty (Pfizer) DO Justin Francisco Work Phone: [facility] 07-13-2020 COVID-19 mRNA, Comirnaty (Pfizer) DO Justin Francisco Work Phone: [facility] 06-21-2020 COVID-19 mRNA, Comirnaty (Pfizer) DO Justin Francisco Work Phone: [facility] Payers Date Payer Category Payer Private Health Insurance [employer] [id number] 2022 Self-pay 2014 Unknown [id number] 2014 Unknown MMO [employer] S UPER[employer] PPO [id number] 2014-Present [phone] [address] [place] [address] [id number] 1962 Unknown [id number] 2.16.840.1.339958.3.579.2. 593 1962 Unknown [id number] 2.16.840.1.853733.3.579.2. 593 1962 Unknown [id number] 2.16.840.1.604200.3.579.2. 593 1962 Unknown [id number] 2.16.840.1.837412.3.579.2. 593 1962 Unknown [id number] 2.16.840.1.378345.3.579.2. 903 1962 Unknown [id number] 2.16.840.1.352147.3.579.2. 903 1962 Unknown [id number] 2.16.840.1.510035.3.579.2. 903 1962 Unknown [id number] 2.16.840.1.124622.3.579.2. 903 1962 Unknown [id number] 2.16.840.1.789398.3.579.2. 903 1962 Unknown [id number] 2.16.840.1.523027.3.579.2. 903 1962 Unknown [id number] 2.16.840.1.151281.3.579.2. 903 1962 Unknown [id number] 2.16.840.1.350127.3.579.2. 174 1962 Unknown [id number] 2.16.840.1.509803.3.579.2. 174 1962 Unknown [id number] 2.16.840.1.289813.3.579.2. 174 1962 Unknown [id number] 2.16.840.1.828550.3.579.2. 174 1962 Unknown [id number] 2.16.840.1.001952.3.579.2. 727 1962 Unknown [id number] 2.16.840.1.961980.3.579.2. 727 1962 Unknown [id number] 2.16.840.1.086416.3.579.2. 1259 1962 Unknown [id number] 2.16.840.1.040551.3.579.2. 1259 1962 Unknown [id number] 2.16.840.1.569990.3.579.2. 1259 1959 Unknown [id number] Unknown [id number] 2.16.840.1.957897.3.579.2. 531 Social History Date Type Detail Facility Start: 04-06-2020 End: 01-30-2024 Tobacco smoking status NHIS Former smoker [facility] Start: 04-06-2020 End: 01-30-2024 Tobacco use and exposure Never used [facility] Start: 04-06-2020 End: 02-12-2024 Alcohol intake Ex-drinker (finding) [facility] Start: 1960 Sex Assigned At Not on file [facility] [facility] Exposure to SARS-CoV-2 (event) Unable to assess [facility] Start: 07-09-2021 End: 05-24-2022 Exposure to SARS-CoV-2 (event) Not sure [facility] Start: 01-03-2022 Tobacco smoking status NHIS Never smoked tobacco (finding) [facility] Start: 1960 Sex Assigned At Female [facility] End: 04-02-2000 History of tobacco use Current smoker [facility] Start: 05-30-2022 End: 02-12-2024 History of Social function [facility] Start: 05-30-2022 End: 02-12-2024 Tobacco use panel [facility] Tobacco smoking status Never [facility] End: 04-02-2000 History of tobacco use Cigarette Smoker [facility] [place] Tobacco smoking status NHIS Tobacco smoking consumption unknown [facility] Goals Date Patient Goal Desired Activity /State Functional Status Date Assessment Result Facility 11-27-2023 Functional Status N/A [facility] 08-21-2023 Functional Status N/A [facility] 01-05-2022 Functional status Patient at [facility] Work Phone: Mental Status Date Assessment Result Facility 01-05-2022 Cognitive function Cognitive Sta tus Patient at [facility] Work Phone: Clinical Notes 07-27-2020 to [...] Type A tympanogram documented in this encounter [facility] 02-12-2024 History of Present illness Narrative [...] Date Noted Bipolar 1 disorder, depressed, mild ([facility]) 04/06/2020 VICKIE (generalized anxiety disorder) ([facility]) 04/06/2020 Insomnia due to mental disorder 04/06/2020 MDD (major depressive disorder) ([facility]) 01/18/2016 Severe episode of recurrent major depressive disorder, without psychotic features (HCC) ([facility]) 01/18/2016 Resolved Ambulatory Problems Diagnosis Date Noted [...] Recommend annual audio documented in this encounter [facility] 02-05-2024 History of Present illness Narrative [...] Date Noted Bipolar 1 disorder, depressed, mild ([facility]) 04/06/2020 VICKIE (generalized anxiety disorder) ([facility]) 04/06/2020 Insomnia due to mental disorder 04/06/2020 MDD (major depressive disorder) ([facility]) 01/18/2016 Severe episode of recurrent major depressive disorder, without psychotic features ([facility]) ([facility]) 01/18/2016 Resolved Ambulatory Problems Diagnosis Date Noted [...] week to remove documented in this encounter [facility] 11-27-2023 Hospital Discharge instructions Patient Education [...] nerve stimulation). ?For women, using a medical director of hospice to prevent urine leaks. This is a [...] right after experiencing incontinence. General instructions Take xcty-txv-lkfpsco and prescription medicines only as told by [...] important. Where to find more information National [place] of Diabetes and Digestive and Kidney Diseases: www.niddk.nih.gov [employer]: www.urologyhealth.org Contact a health care [...] provider. Document Revised: 10/22/2020 Document Reviewed: 10/22/2020 [employer] Patient Education 2022 [employer]. 11/27/2023 15:20:11 Overactive Bladder, Adult Overactive Bladder, [...] your health care provider. General instructions Take ecmr-pmm-oapcaqg and prescription medicines only as told by [...] provider. Document Revised: 12/06/2020 Document Reviewed: 12/06/2020 [employer] Patient Education 2022 [employer]. Follow Up Care 08/21/2023 10:37:58 With:OXANA CARVALHO PA-C, URL Address: [place] [address] When: Unknown Comments:1 year f/up [facility] 11-27-2023 Note Patient Education Obstetrics and Gynecology [...] health care provider. General instructions ? Take kbsd-zyq-tmdkcxm and prescription medicines only as told by [...] your health care (more content not included)... [facility] 08-21-2023 Note Chief Complaint New Pt. [...] metformin. 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 1. Kidney stones (N20.0: Calculus of kidney) [facility] 05/04/23 [facility] - 7 mm nonobstructing L [...] Trospium ER 60mg qd. Rx sent to [facility]. -Increase clear fluid intake -Avoid [...] Renal cyst (N28.1: Cyst of kidney, acquired) [facility] 05/04/23 [facility] - 1 cm benign-appearing R renal cyst and 1 cm benign-appearing L renal cyst. -Simple cysts do not require monitoring Follow-up With When Contact Information OXANA CARVALHO PA-C, URL [address] [place] [address] [phone] Additional Instructions: 3 mos (new med) Patient Education Urinary Incontinence Documentation recorded by the magalisibsusana Gunderson accurately reflects the (more content not included)... [facility] Comment on above: Result Comment: Elec [...] nerve stimulation). ?For women, using a medical director of hospice to prevent urine leaks. This is a [...] right after experiencing incontinence. General instructions Take keel-zcx-iqmpbfj and prescription medicines only as told by [...] important. Where to find more information National [place] of Diabetes and Digestive and Kidney Diseases: www.niddk.nih.gov [employer]: www.urologyhealth.org Contact a health care [...] provider. Document Revised: 10/22/2020 Document Reviewed: 10/22/2020 [employer] Patient Education 2022 [employer]. Follow Up Care 05/07/2023 11:41:01 With:OXANA CARVALHO PA-C, URL Address: [address] [place] [address] [phone] When: Unknown Comments:3 mos (new med) [facility] 05-30-2022 History of Present illness Narrative BEHAVIORAL [...] Continue with same provider ( Rocky @ [facility] in [place]) Follow up as scheduled or return early if needed. School or community referral: None Treatment Goals and Objectives discussed. Other Referrals/Consults/Psychological Testing: None Scott Mcallister documented in this encounter [facility] 03-13-2022 History of Present illness Narrative BEHAVIORAL [...] Continue with same provider ( Rocky @ [facility] in [place]) Follow up as scheduled or return early if needed. School or community referral: None Treatment Goals and Objectives discussed. Other Referrals/Consults/Psychological Testing: None Scott Mcallister documented in this encounter [facility] 01-05-2022 Discharge summary Note Date/Time January 05, 2022 12:08pm [facility] [address] [place] [address] Discharge Summary Signed Patient: Kathy Porter MR#: [id number] : 1960 Acct:[id number] Age/Sex: 61 / F Adm Date: 2 Loc: Room: [address] [place] [address]: Henry Burnett MD Copies to: [...] % (Auto) 50.3, Lymph % (Auto) 33.1, Crook % (Auto) 12.5, Eos % (Auto) 3.5, Baso % (Auto) 0.6, Neut # (Auto) 2.6, Lymph # (Auto) 1.7, Crook # (Auto) 0.7, Eos # (Auto) 0.2, [...] <Electronically signed by Henry Burnett MD> 01/05/22 4064 [facility] Work Phone: 1(765) 742-477210-05-2022 Progress note Author Henry Burnett [facility] January 04, 2022 4:20pm Note Date/Time January 04, 2022 4: 20pm [facility] [address] [place] [address] Hospitalist Progress Note Signed Patient: Kathy Porter MR#: [id number] : 1960 Acct:[id number] Age/Sex: 61 / F Adm Date: 2 Loc: Room: [address] [place] [address] Type: ADM INOo Attending Dr: Henry Burnett [...] Flu Vac Quad (36month+)Pf 0.5 Ml Syringe [id number] IM 01/04/22 18:34 .ONCE ONE Irbesartan 300 [...] signed by Henry Burnett MD> 01/04/22 1620 [facility] Work Phone: 1(589) 708-203210-05-2022 Consult note Author Graham Helm [facility] January 04, 2022 2:08pm Note Date/Time January 04, 2022 2: 04pm [facility] [address] [place] [address] Psychiatry Consult Note Signed Patient: Kathy Porter MR#: [id number] : 1960 Acct:[id number] Age/Sex: 61 / F Adm Date: 2 Loc: Room: [address] [place] [address] Type : ADM INOo Attending Dr: Henry [...] stated that she sees a psychiatrist in [place]. She reported that he is helping her [...] Appearance Clear Urine pH 5.5 Ur Specific [place] 1.012 Urine Protein Negative Urine Glucose (UA) [...] Color Urine Appearance Urine pH Ur Specific [place] Urine Protein Urine Glucose (UA) Urine Ketones Urine Occult Blood Urine Nitrite Ur Leukocyte Esterase Urine RBC Urine WBC Valproic Acid 59.0 01/04/22 10:13 RBC Hgb Hct MCV MCH MCHC RDW Plt Count MPV Sodium Potassium Chloride Carbon Dioxide Anion Gap BUN Creatinine Calcium Total Bilirubin AST ALT Alkaline Phosphatase Total Protein Albumin Urine Color Urine Appearance Urine pH Ur Specific [place] Urine Protein Urine Glucose (UA) Urine Ketones [...] 140 Signed By: <Electronically signed by Graham Helm MD> 01/04/22 1403 [facility] Work Phone: 1(103) 136-577110-04-2022 History and physical note Author Henry Burnett [facility] January 03, 2022 6:58pm Note Date/Time January 03, 2022 4: 55pm [facility] [address] [place] [address] Hospitalist H&P Signed Patient: Kathy Porter MR#: [id number] : 1960 Acct:[id number] Age/Sex: 61 / F Adm Date: 2 Loc: Room: [address] [place] [address] Type: ADM INOo Attending Dr: Henry Burnett [...] 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 Decision was to admit the patient [...] % (Auto) 22.3 % (.) 01/03/22 14:35 Crook % (Auto) 8.9 % (.) 01/03/22 14:35 Eos % (Auto) 1.4 % (.) 01/03/22 14:35 Baso % (Auto) 0.6 % (.) 01/03/22 14:35 Neut # (Auto) 4.3 x10E3/uL (1.8-7.7) 01/03/22 14:35 Lymph # (Auto) 1.4 x10E3/uL (1.00-4.8) 01/03/22 14:35 Crook # (Auto) 0.6 x10E3/uL (0.0-0.8) 01/03/22 14:35 [...] pH 5.5 (5.0-9.0) 01/03/22 14:20 Ur Specific [place] 1.012 (1.001-1.030) 01/03/22 14:20 Urine Protein Negative [...] <Electronically signed by Henry Burnett MD> 01/03/22 6117 [facility] Work Phone: 1(495) 914-759207-15-2022 History of Present illness Narrative* Scott Mcallister [...] Continue with same provider ( Rocky @ [facility] in [place]) Follow up as scheduled or return early if needed. School or community referral: None Treatment Goals and Objectives discussed. Other Referrals/Consults/Psychological Testing: None Scott Mcallister documented in this [id number] History of Present illness Narrative* Scott Mcallister [...] Continue with same provider ( Rocky @ [facility] in [place]) Follow up as scheduled or return early if needed. School or community referral: None Treatment Goals and Objectives discussed. Other Referrals/Consults/Psychological Testing: None Scott Mcallister documented in this [id number] Miscellaneous Notes* Telephone Encounter - Sarah Leigh MA - 05/16/2021 11:04 AM EST Pt is completely out and wants a 30 day supply sent to the local pharmacy. Another refill encounterto follow with a 90 day supply to go to [facility]. documented in this [id number] History of Present illness Narrative* Scott Mcallister [...] the patient Scott Mcallister documented in this [id number] History of Present illness Narrative* Scott Mcallister MD - 07/27/2020 2:43 PM EDT Telephone Visit Via Phone Call [facility] [phone] Telephone Visit [facility] 07/27/2020 Scott Mcallister MD Provider Location: [facility] Patient Location Director Of Integrated Marketing: None Patient Location: Patient's Home Patient: Kathy [...] there are inherent diagnostic limitations compared to kdvg-iv-ckmt evaluations. We elected toproceed with the telephone [...] and Plan of Care. [facility] note Future Appointments Appointment Date:11/27/2023 03:00:00 PM Scheduled Provider:OXANA CARVALHO PA-C Location:[facility] Appointment Type:URO Office Visit [facility] evaluation note* Diagnosis Bipolar 1 disorder, depressed, [...] Generalized anxiety disorder [facility] Diagnosis Insomnia due to mental disorder VICKIE (generalized anxiety disorder) Generalized anxiety disorder [facility] Diagnosis Insomnia due to mental disorder- Primary [facility] Diagnosis Insomnia due to mental disorder [facility] Diagnosis Bipolar 1 disorder, depressed, moderate (HCC)- Primary Insomnia due to mental disorder VICKIE (generalized anxiety disorder) Generalized anxiety disorder [facility] Diagnosis Bipolar 1 disorder, depressed, moderate (HCC)- Primary Insomnia due to mental disorder VICKIE (generalized anxiety disorder) Generalized anxiety disorder [facility] Diagnosis Onset Date Resolution Status Acute encephalopathy acute Altered mental status acute Coarse tremors acute [facility] Work Phone: Evaluation note* Diagnosis Onset Date Resolution Status Acute encephalopathy acute NAEEM (acute kidney injury) ac [place] Altered mental status acute Coarse tremors acute Hypertensive urgency acute UTI (urinary tract infection) acute [facility] Work Phone: Evaluation note* Diagnosis Bipolar 1 [...] ear, initial encounter documented in this encounter [facility]* Diagnosis Sensorineural hearing loss (SNHL) of both ears- Primary Ear pressure, right documented in this encounter [facility] Healthcare[facility]ospital course Narrative No data available for this section [facility] Hospital Discharge instructions Additional Instructions -Take Ceftin antibiotics treatment for UTI for 5 more days -Take new blood pressure medicine Hydralazine 25 mg three times a day. Hold if your BP <100/60 -Follow up with your primary doctor for blood pressure control and adjustment in medications if needed -[facility] Work Phone: Progress note No data available for this section [facility] History of Present Illness * Scott Mcallister MD - 04/09/2020 2:42 PM EST Telephone Visit Via Phone Call [facility] [address] [facility] [phone] Telephone Visit [facility] 04/06/2020 Scott Mcallister MD Provider Location: [place] Patient Location Director Of Integrated Marketing: None Patient Location: Patient's Home Patient: Kathy [...] there are inherent diagnostic limitations compared to uzzz-qi-hyke evaluations. We elected toproceed with the telephone [...] Documents on File Type Date Recorded Patient Amortization Clerk Expl anation Advance Directives and Living Will [...] Care Teams (unrecognized sec tion and content) Formula Clerk Relationship Specialty Start Date End Date Peter Arnett MD [address] [place] [address] PCP - General Family Medicine 04/05/20 Formula Clerk Relationship Specialty Start Date End Date Peter Arnett MD [address] [place] [address] PCP - General Family Medicine 04/05/20 Formula Clerk Relationship Specialty Start Date End Date Peter Arnett MD [address] [place] [address] PCP - General Family Medicine 04/05/20 Formula Clerk Relationship Specialty Start Date End Date Peter Arnett MD [address] [place] [address] PCP - General Family Medicine 04/05/20 Formula Clerk Relationship Specialty Start Date End Date Peter Arnett MD [address] [place] [address] PCP - General Family Medicine 04/05/20 Team [...] Active Graham Helm MD Other Provider Active Formula Clerk Relationship Specialty Start Date End Date Peter Arnett MD [address] [place] [address] PCP - General Family Medicine 04/05/20 Formula Clerk Relationship Specialty Start Date End Date Peter Arnett MD [address] [place] [address] PCP - General Family Medicine 04/05/20 Formula Clerk Relationship Specialty Start Date End Date Peter Arnett MD [address] [place] [address] PCP - General Family Medicine 04/05/20 Formula Clerk Relationship Specialty Start Date End Date Peter Arnett MD [address] [place] [address] PCP - General Family Medicine 04/05/20 Formula Clerk Relationship Specialty Start Date End Date Peter Arnett MD [address] [place] [address] PCP - General Family Medicine 04/05/20 Formula Clerk Relationship Specialty Start Date End Date Peter Arnett MD [facility] [place] [address] PCP - General Family Medicine 02/05/24 Valerie Moss MD [address] [place] [address] Referring Physician Family Medicine 01/29/24 Formula Clerk Relationship Specialty Start Date End Date ePter Arnett MD [address] [place] [address] PCP - General Family Medicine 02/05/24 Valerie Moss MD [address] [place] [address] Referring Physician Family Medicine 01/29/24 Formula Clerk Relationship Specialty Start Date End Date Peter Arnett MD [address] [place] [phone] PCP - General Family Medicine 02/05/24 Valerie Moss MD [facility] [place] [address] Referring Physician Family Medicine 01/29/24 Formula Clerk Relationship Specialty Start Date End Date Peter Arnett MD [address] [place] [address] PCP - General Family Medicine 02/05/24 Valerie Moss MD [address] [place] [address] Referring Physician Family Medicine 01/29/24 Formula Clerk Relationship Specialty Start Date End Date Peter Arnett MD [address] [place] [address] PCP - General Family Medicine 09/26/23 Goals (unrecognized section and content) Goals may be documented in a n alternate section No data available for this section No data available for this section INFORMATION SOURCE (unrecogn ized section and content) DATE CREATED AUTHOR 01/23/2022 [facility] DATE CREATED AUTHOR AUTHOR'S ORGANIZ ATION 05/06/2022 [facility] DATE CREATED AUTHOR AUTHOR'S ORGANIZ ATION 06/01/2022 [facility] DATE CREATED AUTHOR AUTHOR'S ORGANIZ ATION 11/06/2023 Emma montesinos DATE CREATED AUTHOR AUTHOR'S ORGANIZ ATION 11/29/2023 [facility] DATE CREATED AUTHOR AUTHOR'S ORGANIZ ATION 02/13/2024 [facility] EPIC FOR RECORDS PERTAINING TO PATIENTS [...] BE BASED ON THE PRIMARY CLINICAL RECORDS. [facility]. provides no warranty or guarantee of the accuracy or completeness of information in this document.
[2024-05-29 08:09] LABS: Basophils Percent Auto 0.6 % (0.2-2.0); Eosinophils Absolute Auto 0.2 10^3/uL (0.0-0.7); Hematocrit 35.9 % (36.0-48.0); Hemoglobin 11.8 g/dL (12.0-16.0); Immature Granulocytes Abs Auto 0.03 10^3/uL (0.00-0.03); Immature Granulocytes Pct Auto 0.5 % (0.0-0.5); Lymphocytes Absolute Auto 1.9 10^3/uL (1.2-3.8); Mean Corpuscular HGB Conc 32.9 g/dL (29.9-35.2); Mean Corpuscular Volume 91.3 fL (81.0-99.0); Mean Platelet Volume 10.5 fL (9.5-13.5); Monocytes Absolute Auto 0.6 10^3/uL (0.3-0.8); Monocytes Percent Auto 9.5 % (1.7-12.0); Neutrophils Absolute Auto 3.6 10^3/uL (1.4-6.5); Neutrophils Percent Auto 56.4 % (43.0-75.0); Platelet Count 199 10^3/uL (150-450); Red Blood Count 3.93 10^6/uL (4.20-5.40); Red Cell Distribution Width 14.9 % (11.0-15.0); White Blood Count 6.4 10^3/uL (4.0-11.0)
[2024-05-29 08:48] LABS: Estimated Average Glucose 100 mg/dL; Glycohemoglobin A1C 5.1 % (4.5-6.2)
[2024-05-29 08:58] LABS: Alanine Aminotransferase 15 U/L (14-59); Albumin Level 3.3 g/dL (3.4-5.0); Alkaline Phosphatase 99 U/L (46-116); Anion Gap 10.3; Aspartate Amino Transferase 13 U/L (15-37); BUN Creatinine Ratio 12.3; Bilirubin Total 0.4 mg/dL (0.2-1.0); Carbon Dioxide 29.9 mmol/L (21.0-32.0); Chloride 107 mmol/L (98-107); Chol HDL Ratio 2.7; Cholesterol 150 mg/dL (<=200); Estimated GFR (African America 35 (>=60 mL/min/1.73m^2); Estimated GFR (Non-African Ame 29 (>=60 mL/min/1.73m^2); Free T3 2.87 pg/mL (2.18-3.98); Globulin 3.2 g/dL; Glucose 103 mg/dL (74-106); HDL Cholesterol 56 mg/dL (40-60); LDL Cholesterol Calculated 69.8 mg/dL; Potassium 4.2 mmol/L (3.5-5.1); Sodium 143 mmol/L (136-145); Thyroid Stimulating Hormone 6.193 uIU/mL (0.358-3.740); Total Protein 6.5 g/dL (6.4-8.2); Triglycerides 121 mg/dL (<=150); VLDL CHOLESTEROL 24.2 mg/dL
[2024-06-01 11:07] LABS: Insulin 17.9 uIU/mL (2.6-24.9)
== END 2024-05-29 07:41 | disposition home or self-care (01) ==
LOC: LAB 07:42
PROVIDERS: PCP Family Medicine; Visit Provider Family Medicine
DX: Z00.00 Encounter for general adult medical examination without abnormal findings (principal); E78.5 Hyperlipidemia, unspecified; R53.83 Other fatigue; R73.09 Other abnormal glucose; D64.9 Anemia, unspecified; E03.9 Hypothyroidism, unspecified; E55.9 Vitamin D deficiency, unspecified; I10 Essential (primary) hypertension
CPT/HCPCS: 36415; 80053; 80061; 82306; 83036; 83525; 83540; 84436; 84443; 84481; 85025

== ENCOUNTER 2024-06-02 07:23 | Outpatient (OUT) | payer OTHER, SELFPAY ==
--- NOTE | 2024-06-02 | US_ITS ---
The [address] [address] Patient Name: KATHY PORTER MRN: [id number] date: 1960 Sex: F Assigned Patient Location: [place] Current Patient Location: [place] Accession/Order Number: [id number] Exam Date: 06/02/2024 15:53 Report Date: 06/02/2024 16:40 At the request of: VICKY SAUCEDA MD Procedure: US renal bladder BILATERAL RENAL AND BLADDER ULTRASOUND CLINICAL HISTORY: Abnormal renal function N28.9 COMPARISON: Renal ultrasound 05/04/2023 FINDINGS: Estimation of renal size is approximately 10.1 cm on the right and 5.1 cm on the left. Cystic changes of both kidneys. 2 nonobstructing calculi involving the left kidney, largest measuring 7 mm. No hydronephrosis of either kidney. The urinary bladder is partially distended with a volume of 57 ml. No shadowing stone or focal lesion. No significant postvoid residual. US/US renal bladder IMPRESSION: LEFT NEPHROLITHIASIS. NO HYDRONEPHROSIS. Impression dictated by: Cesar Butler Jr., DMarkyOMarky06/02/2024 4:40 PM Dictation Location: [place] [address] Electronically authenticated by: [id number] Y Date: 06/02/2024 16:40
--- OUTSIDE RECORDS SUMMARY | 2024-06-02 07:26 | XMS_ITS | CCD ---
Author Organization [facility]iniSy[facility] Care Team Providers Care Ad Compositor Name Role Phone Peter Arnett Primary Care Provider DO Justin Francisco Emergency Provider MD Peter Arnett Primary Care Provider [phone] MD Henry Burnett Admit Provider [phone] MD Henry Burnett Attending Provider [phone] MD Graham Helm Other Provider [phone] PETER ARNETT Admitting Unavailable DR [...] Unavailable Peter Arnett MD Primary Care Provider [phone] ANGELO DE LA CRUZ Attending Unavailable VALERIE MOSS Referring Unavailable ANGELO DE LA CRUZ Attending Unavailable LILIBETH PENA Attending Unavailable Peter Arnett MD Primary Care Provider [phone] Allergies Allergy Classification Reported Allergen(s) Allergy Type Date of Onset Reaction(s) Facility Sulfonamides (antibiotic) (3 sources) Sulfonamides (Antibiotic) Drug Allergy 2 Rash, Swelling [facility] (17 sources) Sulfonamides (Antibiotic); Translations: [Sulfa (Sulfonamide Antibiotics)] Propensity to adverse reactions to drug 2 Rash, Swelling [facility] (1 source) Sulfonamides (Antibiotic) Drug allergy (disorder) [address] [facility] (3 sources) Sulfonamides (Antibiotic); Translations: [sulfa drugs] Drug allergy Cutaneous eruption (morphologic abnormality) [facility] (7 sources) Sulfonamides (Antibiotic) Drug Intolerance 2 Rash, Swelling [facility] Healthcare Work Phone: Medications Current Medications [...] Start: 08-21-2023 take 1 capsule by mo [facility] once daily in the morning trospium 60 mg oral capsule, extended release 60 mg = 1 cap(s), Oral, qAM, # 30 cap(s), Refills(s) 11, Pharmacy: [facility]/pharmacy #[id number], 158, cm, 08/21/23 10:13:00 EDT, Height/Length Dosing, 88.5, kg, 08/21/23 10:13:00 EDT, Weight Dosing Start Date: 08/21/23 Status: Ordered take 3 tablets by [facility] once daily trospium (Sanctura) 20 [...] bedtime), # 45 tab(s), Refills(s) 1, Pharmacy: [facility], 158, cm, 12/15/19 14:46:00 EDT, [...] Mild sensorineural hearing loss above 4K Hz [facility] Ambulatory Visit Summaryon 0 11-27-2023 [...] 1 year f/up Where: [address] [place] [address] Medications What How Much When Instructions Unchanged trospium (trospium 60 mg oral capsule, extended release) 1 Capsules By Mouth Once a day (in the morning) Pickup at [facility] Unchanged amlodipine (Norvasc 10 mg [...] physician if questions or concerns Pharmacy Information [facility]: [address] [place], [place] [id number] [phone] Allergies sulfa drugs (Rash) Problems Ongoing - [...] the ability (more content not included)... Normal [facility] Urology Office/Clinic Noteon 11-27-2023 Urology Office/Clinic Note [...] metformin. 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 1. [...] E&M of Est. Patient Moderate 30-39 Min 52748 2. Kidney stones (N20.0: Calculus of kidney) [...] E&M of Est. Patient Moderate 30-39 Min 89186 3. Renal cyst (N28.1: Cyst of kidney, acquired) RAMONA 05/04/23 [facility] - 1 cm benign-appearing R renal cyst and 1 cm benign-appearing L renal cyst. -Simple cysts do not require monitoring Ordered: E&M of Est. Patient Moderate 30-39 Min 95078 Orders: trospium, 60 mg = 1 cap(s), Oral, qAM, # 90 cap(s), Refills(s) 3, Pharmacy: [facility], 158, cm, 11/27/23 15:03:00 EDT, Height/Length Dosing, 88, kg, 11/27/23 15:03:00 EDT, Weight Dosing Follow-up With When Contact Information OXANA CARVALHO PA-C, URL [address] [place] [address] Additional Instructions: 1 year f/up [...] Procedure/Surgical H (more content not included)... Normal [facility] Comment on above: Result Comment: Elec tronically [...] Birch Jr., MD 11/02/23 Final result Normal [facility] XR KNEE RIGHT (1-2 VIEWS)on 09-28-2023 XR [...] Birch Jr., MD 09/28/23 Final result Normal [facility] Lab Reportson 08-23-2023 Lab Reports [id number]# 1.00TIFF Normal [facility] Lab Reportson 08-22-2023 Lab Reports [id number]# 1.00TIFF Normal [facility] Physician Referralon 024 Physician Referral [id number]#1. 00TIFF Normal [facility] RAD - Ultrasound Reporton RAD - Ultrasound Report [id number]#1 .00TIFF Normal [facility] Screenson 08-22-2023 Screens [id number]# 1.00TIFF Normal [facility] Ambulatory Visit Summaryon 0 08-21-2023 Ambulatory Visit [...] CARVALHO PA-C, URL When: Comments: 3 mos ([facility]) Where: [address] [place] [id number] Medications What How Much When Instructions Unchanged [...] 2 tab(s (more content not included)... Normal [facility] Patient Educationon 08-21-19 Patient Education Urology Urinary [...] stimulation). ? For women, using a medical technologist to prevent urine leaks. This is a [...] urine. ? (more content not included)... Normal [facility] Reminderson 08-21-2023 Reminders - From: Evy Gunderson To: KRISSY Carvalho; Sent: 08/21/2023 10:39:44 EDT Show up: 06/20/2024 10:38:00 EDT Subject: KUB and RAMONA Reminder Message Pt needs RAMONA and KUB prior to appt in 1 year. Typically goes to [facility]. Normal [facility] XR LSPINE MIN 4 VIEWSon 10-2 XR [...] DANII CARTER Date: 2022-01-20 07:20 Normal [facility] DEPAKENE/VALPROICon 01-20-20 22 DEPAKENE 79.2 ug/ml Normal 50.0-100.0 [facility] Comment on above: Performed By: #### V ALP #### [facility] [address] [place] [address] Dr. Julio Goddard Albumin [Mass/volume] in Ser um or PlasmaOrdered By: Henry Burnett on 01-05-2022 Albumin [Mass/Vol] 3.0 g/dL 3.2-5.5 [facility] Basophils Auto (Bld) [#/Vol] Ordered By: Henry Burnett on 01-05-2022 Basophils (Bld) [#/Vol] 0.0 10*3/uL 0.0-0.2 [facility] Basophils/100 WBC Auto (Bld) Ordered By: Henry Burnett on 01-05-2022 Basophils/100 WBC (Bld) 0.6 % . [facility] Blood hemoglobin measurement (mass/volume)Ordered By: Henry Burnett on 01-05-2022 Hemoglobin (Bld) [Mass/Vol] 12.8 g/dL 11.8-15.4 [facility] Blood leukocytes automated c ount (number/volume)Ordered By: Henry Burnett on 01-05-2022 WBC (Bld) [#/Vol] 5.3 10*3/uL 4.5-11.0 [facility] Complete Blood Count Auto Di ffon 01-05-2022 Basophils (Bld) [#/Vol] 0.0 10*3/uL Normal 0.0-0.2 [facility] Comment on above: Result Comment: PERF ORMED BY: [place] [address] PATHOLOGIST UTILITY SERVICE WORKER ANTONY ELIAS M.D. Performed By: #### C BC, CMP, PHOS, MG, LIPID #### [address] Basophils/100 WBC (Bld) 0.6 % Normal . [facility] Comment on above: Performed By: #### C BC, CMP, PHOS, MG, LIPID #### [address] Eosinophils (Bld) [#/Vol] 0.2 10*3/uL Normal 0.0-0.45 [facility] Comment on above: Performed By: #### C BC, CMP, PHOS, MG, LIPID #### [address] Eosinophils/100 WBC (Bld) 3.5 % Normal . [facility] Comment on above: Performed By: #### C BC, CMP, PHOS, MG, LIPID #### [address] Erythrocyte distribution width (RBC) [Ratio] 16.2 % High 11.9-15.3 [facility] Comment on above: Performed By: #### C BC, CMP, PHOS, MG, LIPID #### [address] Hematocrit (Bld) [Volume fraction] 38.6 % Normal 34.0-46.4 [facility] Comment on above: Performed By: #### C BC, CMP, PHOS, MG, LIPID #### [address] Hemoglobin (Bld) [Mass/Vol] 12.8 g/dL Normal 11.8-15.4 [facility] Comment on above: Performed By: #### C BC, CMP, PHOS, MG, LIPID #### [place] [address] [place] Lymphocytes (Bld) [#/Vol] 1.7 10*3/uL Normal 1.00-4.8 [facility] Comment on above: Performed By: #### C BC, CMP, PHOS, MG, LIPID #### [address] Lymphocytes/100 WBC (Bld) 33.1 % Normal . [facility] Comment on above: Performed By: #### C BC, CMP, PHOS, MG, LIPID #### [address] MCH (RBC) [Entitic mass] 30.2 pg Normal 24.7-34.3 [facility] Comment on above: Performed By: #### C BC, CMP, PHOS, MG, LIPID #### [address] MCV (RBC) [Entitic vol] 90.6 fL Normal 80-100 [facility] Comment on above: Performed By: #### C BC, CMP, PHOS, MG, LIPID #### [address] Mean Corpuscular HGB Conc 33.3 g/dL Normal 32.0-35.0 [facility] Comment on above: Performed By: #### C BC, CMP, PHOS, MG, LIPID #### [address] Monocytes (Bld) [#/Vol] 0.7 10*3/uL Normal 0.0-0.8 [facility] Comment on above: Performed By: #### C BC, CMP, PHOS, MG, LIPID #### [address] Monocytes/100 WBC (Bld) 12.5 % Normal . [facility] Comment on above: Performed By: #### C BC, CMP, PHOS, MG, LIPID #### [address] Neutrophils (Bld) [#/Vol] 2.6 10*3/uL Normal 1.8-7.7 [facility] Comment on above: Performed By: #### C BC, CMP, PHOS, MG, LIPID #### [facility] [address] [place] [address] Neutrophils/100 WBC (Bld) 50.3 % Normal . [facility] Comment on above: Performed By: #### C BC, CMP, PHOS, MG, LIPID #### [facility] [address] [place] [address] Nucleated RBC/100 WBC (Bld) [Ratio] 0.1 % Normal 0-0.5 [facility] Comment on above: Performed By: #### C BC, CMP, PHOS, MG, LIPID #### [address] Platelet mean volume (Bld) [Entitic vol] 8.9 fL Normal 6.3-10.7 [facility] Comment on above: Performed By: #### C BC, CMP, PHOS, MG, LIPID #### [address] Platelets (Bld) [#/Vol] 186 10*3/uL Normal 150-450 [facility] Comment on above: Performed By: #### C BC, CMP, PHOS, MG, LIPID #### [address] RBC (Bld) [#/Vol] 4.25 10*6/uL Normal 3.60-5.00 [facility] Comment on above: Performed By: #### C BC, CMP, PHOS, MG, LIPID #### [address] WBC (Bld) [#/Vol] 5.3 10*3/uL Normal 4.5-11.0 [facility] Comment on above: Performed By: #### C BC, CMP, PHOS, MG, LIPID #### [address] Comprehensive Metabolic Pane clarice 01-05-2022 Albumin [Mass/Vol] 3.0 g/dL Low 3.2-5.5 [facility] Comment on above: Performed By: #### C BC, CMP, PHOS, MG, LIPID #### [facility] [address] [place] [address] Albumin/Globulin [Mass ratio] 1.2 {ratio} Normal [facility] Comment on above: Performed By: #### C BC, CMP, PHOS, MG, LIPID #### [facility] [address] [place] [address] ALP [Catalytic activity/Vol] 33 U/L Normal 32-92 [facility] Comment on above: Performed By: #### C BC, CMP, PHOS, MG, LIPID #### [address] ALT [Catalytic activity/Vol] 11 U/L Normal 10-60 [facility] Comment on above: Performed By: #### C BC, CMP, PHOS, MG, LIPID #### [address] Anion gap [Moles/Vol] 11.6 mmol/L Normal 6.0-15.0 [facility] Comment on above: Performed By: #### C BC, CMP, PHOS, MG, LIPID #### [address] AST [Catalytic activity/Vol] 13 U/L Normal 10-42 [facility] Comment on above: Performed By: #### C BC, CMP, PHOS, MG, LIPID #### [address] Bilirubin [Mass/Vol] 0.4 mg/dL Normal 0.3-1.2 [facility] Comment on above: Performed By: #### C BC, CMP, PHOS, MG, LIPID #### [address] Calcium [Mass/Vol] 9.1 mg/dL Normal 8.2-10.2 [facility] Comment on above: Performed By: #### C BC, CMP, PHOS, MG, LIPID #### [place] [id number] [place] Chloride [Moles/Vol] 105 mmol/L Normal 95-114 [facility] Comment on above: Performed By: #### C BC, CMP, PHOS, MG, LIPID #### [address] CO2 [Moles/Vol] 25.2 mmol/L Normal 22.0-30.0 [facility] Comment on above: Performed By: #### C BC, CMP, PHOS, MG, LIPID #### [address] Creatinine [Mass/Vol] 1.14 mg/dL High 0.44-1.03 [facility] Comment on above: Performed By: #### C BC, CMP, PHOS, MG, LIPID #### [address] Creatinine Clr Calc Pharmacy 51.99 [facility] Comment on above: Result Comment: PERF ORMED BY: [place] [address] PATHOLOGIST UTILITY SERVICE WORKER ANTONY ELIAS M.D. Performed By: #### C BC, CMP, PHOS, MG, LIPID #### [address] Estimated GFR ( [place] 59 [facility] Comment on above: Result Comment: GFR estimated reference range: According to KDOQI guidelines, <60 ml/min/1.73m2 is sufficient to diagnose a patient with chronic kidney disease. Performed By: #### C BC, CMP, PHOS, MG, LIPID #### [facility] [address] [place] [address] Estimated GFR (Non- Am 49 [facility] Comment on above: Performed By: #### C BC, CMP, PHOS, MG, LIPID #### [address] Globulin (S) [Mass/Vol] 2.5 g/dL Normal [facility] [place] Comment on above: Performed By: #### C BC, CMP, PHOS, MG, LIPID #### [facility] [address] [place] [address] [place] Glucose [Mass/Vol] 96 mg/dL Normal 70-100 [facility] Comment on above: Result Comment: [facility] Glucose Reference Range is dependent on time and content of last meal. Glucose of more than 200 mg/dL in a nonstressed, ambulatory subject supports the diagnosis of Diabetes Mellitus. ADA recommended reference range Performed By: #### C BC, CMP, PHOS, MG, LIPID #### [facility] [address] Potassium [Moles/Vol] 3.8 mmol/L Normal 3.5-5.1 [facility] Comment on above: Performed By: #### C BC, CMP, PHOS, MG, LIPID #### [facility] [address] Protein [Mass/Vol] 5.5 g/dL Low 6.1-7.9 [facility] Comment on above: Performed By: #### C BC, CMP, PHOS, MG, LIPID #### [facility] [address] Sodium [Moles/Vol] 138 mmol/L Normal 136-146 [facility] Comment on above: Performed By: #### C BC, CMP, PHOS, MG, LIPID #### [facility] [address] [place] [address] [place] Urea nitrogen [Mass/Vol] 11 mg/dL Normal 9-23 [facility] Comment on above: Performed By: #### C BC, CMP, PHOS, MG, LIPID #### [facility] [address] [place] [address] [place] Creatinine and Glomerular fi ltration rate.predicted panel (S/P/Bld)Ordered By: Henry Burnett on 01-05-2022 Creatinine [Mass/Vol] 1.14 mg/dL 0.44-1.03 [facility] Eosinophils Auto (Bld) [#/Vo l]Ordered By: Henry Lemonr on 01-05-2022 Eosinophils (Bld) [#/Vol] 0.2 10*3/uL 0.0-0.45 [facility] Eosinophils/100 WBC Auto (Bl d)Ordered By: Henry Burnett on 01-05-2022 Eosinophils/100 WBC (Bld) 3.5 % . [facility] Erythrocyte distribution wid th Auto (RBC) [Ratio]Ordered By: Henry Burnett on 01-05-2022 Erythrocyte distribution width (RBC) [Ratio] 16.2 % 11.9-15.3 [facility] Estimated glomerular filtrat ion rate (GFR) non- AmericanOrdered By: Henry Burnett on 01-05-2022 GFR/1.73 sq M.predicted among non-blacks MDRD (S/P/Bld) [Vol rate/Area] 49 mL/Min [facility] Globulin Calc (S) [Mass/Vol] Ordered By: Henry Burnett on 01-05-2022 Globulin (S) [Mass/Vol] 2.5 g/dL [facility] Hematocrit Auto (Bld) [Volum e fraction]Ordered By: Henry Burnett on 01-05-2022 Hematocrit (Bld) [Volume fraction] 38.6 % 34.0-46.4 [facility] Laboratory - Hematology and Cell countsOrdered By: Henry Burnett on 01-05-2022 Nucleated RBC/100 WBC (Bld) [Ratio] 0.1 % 0-0.5 [facility] Lymphocytes Auto (Bld) [#/Vo l]Ordered By: Henry Burnett on 01-05-2022 Lymphocytes (Bld) [#/Vol] 1.7 10*3/uL 1.00-4.8 [facility] Lymphocytes/100 WBC Auto (Bl d)Ordered By: Henry Burnett on 01-05-2022 Lymphocytes/100 WBC (Bld) 33.1 % . [facility] MCH Auto (RBC) [Entitic mass ]Ordered By: Henry Burnett on 01-05-2022 MCH (RBC) [Entitic mass] 30.2 pg 24.7-34.3 [facility] MCHC Auto (RBC) [Mass/Vol]Or dered By: Obaydah Daromar on 01-05-2022 MCHC (RBC) [Mass/Vol] 33.3 g/dL 32.0-35.0 [facility] MCV Auto (RBC) [Entitic vol] Ordered By: Obaydah Daromar on 01-05-2022 MCV (RBC) [Entitic vol] 90.6 fL 80-100 [facility] Monocytes Auto (Bld) [#/Vol] Ordered By: Obaydah Daromar on 01-05-2022 Monocytes (Bld) [#/Vol] 0.7 10*3/uL 0.0-0.8 [facility] Monocytes/100 WBC Auto (Bld) Ordered By: Obaydah Daromar on 01-05-2022 Monocytes/100 WBC (Bld) 12.5 % . [facility] Neutrophils Auto (Bld) [#/Vo l]Ordered By: Obsonjadah Daromar on 01-05-2022 Neutrophils (Bld) [#/Vol] 2.6 10*3/uL 1.8-7.7 [facility] Neutrophils/100 WBC Auto (Bl d)Ordered By: Obsonjadah Filibertoomar on 01-05-2022 Neutrophils/100 WBC (Bld) 50.3 % . [facility] No Panel InformationOrdered By: Obsonjadanaga De Los Santosomar on 01-05-2022 Estimated GFR () 59 mL/Min [facility] Comment on above: GFR estimated refere nce range: According to KDOQI guidelines, <60 ml/min/1.73m2 is sufficient to diagnose a patient with chronic kidney disease. Pharmacy Creatinine Clearance (Chem 51.99 [facility] Platelet mean volume Auto (B ld) [Entitic vol]Ordered By: Obsonjadah Daromar on 01-05-2022 Platelet mean volume (Bld) [Entitic vol] 8.9 fL 6.3-10.7 [facility] Platelets Auto (Bld) [#/Vol] Ordered By: Obsonjadah Daromar on 01-05-2022 Platelets (Bld) [#/Vol] 186 10*3/uL 150-450 [facility] Protein [Mass/volume] in Ser um or PlasmaOrdered By: Henry Bunrett on 01-05-2022 Protein [Mass/Vol] 5.5 g/dL 6.1-7.9 [facility] RBC Auto (Bld) [#/Vol]Ordere d By: Henry Burnett on 01-05-2022 RBC (Bld) [#/Vol] 4.25 10*6/uL 3.60-5.00 [facility] Serum or plasma alanine angeles otransferase measurement without P-5'-P (enzymatic activiOrdered By: Henry Burnett on 01-05-2022 ALT No additional P-5'-P [Catalytic activity/Vol] 11 U/L 60 [facility] Serum or plasma albumin/glob ulin mass ratioOrdered By: Henry Burnett on 01-05-2022 Albumin/Globulin [Mass ratio] 1.2 {ratio} [facility] Serum or plasma alkaline flaquita sphatase measurement (enzymatic activity/volume)Ordered By: Henry Burnett on 01-05-2022 ALP [Catalytic activity/Vol] 33 U/L 32-92 [facility] Serum or plasma anion gap de terminationOrdered By: Henry Burnett on 01-05-2022 Anion gap [Moles/Vol] 11.6 mmol/L 6.0-15.0 [facility] Serum or plasma aspartate am inotransferase measurement (enzymatic activity/volume)Ordered By: Henry Burnett on 01-05-2022 AST [Catalytic activity/Vol] 13 U/L 1042 [facility] Serum or plasma calcium sarah urement (mass/volume)Ordered By: Henry Burnett on 01-05-2022 Calcium [Mass/Vol] 9.1 mg/dL 8.2-10.2 [facility] Serum or plasma chloride deep surement (moles/volume)Ordered By: Henry Burnett on 01-05-2022 Chloride [Moles/Vol] 105 mmol/L 95-114 [facility] Serum or plasma glucose sarah urement (mass/volume)Ordered By: Henry Burnett on 01-05-2022 Glucose [Mass/Vol] 96 mg/dL 70-100 [facility] Comment on above: ADA recommended refe rence rangeRandom Glucose Reference Range is dependent on time and content of last meal. Glucose of more than 200 mg/dL in a nonstressed, ambulatory subject supports the diagnosis of Diabetes Mellitus. Serum or plasma potassium me asurement (moles/volume)Ordered By: Henry Burnett on 01-05-2022 Potassium [Moles/Vol] 3.8 mmol/L 3.5-5.1 [facility] Serum or plasma sodium measu rement (moles/volume)Ordered By: Henry Burnett on 01-05-2022 Sodium [Moles/Vol] 138 mmol/L 136-146 [facility] Serum or plasma total biliru bin measurement (mass/volume)Ordered By: Henry Burnett on 01-05-2022 Bilirubin [Mass/Vol] 0.4 mg/dL 0.3-1.2 [facility] Serum or plasma total carbon dioxide measurement (moles/volume)Ordered By: Henry Burnett on 01-05-2022 CO2 [Moles/Vol] 25.2 mmol/L 22.0-30.0 [facility] Serum or plasma urea nitroge n measurement (mass/volume)Ordered By: Henry Burnett on 01-05-2022 Urea nitrogen [Mass/Vol] 11 mg/dL 9-23 [facility] Urine culture routineOrdered By: Justin Francisco on 01-05-2022 Bacteria identified Cx Nom (U) Escherichia coli [facility] Cholesterol [Mass/volume] in Serum or PlasmaOrdered By: Henry Burnett on 01-04-2022 Cholesterol [Mass/Vol] 145 mg/dL 140-200 [facility] Comment on above: Chol less than 200 m g/dl low riskChol 201-239 mg/dl borderline riskChol 240 mg/dl and greater high risk Cholesterol in LDL Calc [Mas s/Vol]Ordered By: Henry Burnett on 01-04-2022 Cholesterol in LDL [Mass/Vol] 78 mg/dL 0-100 [facility] Comment on above: LDL ATP III CLASSIFI CATIONLDL less than 100 mg/dL OptimalLDL 100-129 mg/dL Near or above optimalLDL 130-159 mg/dL Borderline highLDL 160-189 mg/dL HighLDL greater than 189 mg/dL Very high Cholesterol in VLDL Calc [Ma ss/Vol]Ordered By: Henry Burnett on 01-04-2022 Cholesterol in VLDL [Mass/Vol] 12 mg/dL [facility] Complete Blood Count Auto Di ffon 01-04-2022 Basophils (Bld) [#/Vol] 0.0 10*3/uL Normal 0.0-0.2 [facility] Comment on above: Result Comment: PERF ORMED BY: [place] [address] PATHOLOGIST UTILITY SERVICE WORKER ANTONY ELIAS M.D. Performed By: #### C BC, CMP, PHOS, MG, LIPID #### [facility] [address] Basophils/100 WBC (Bld) 0.8 % Normal . [facility] Comment on above: Performed By: #### C BC, CMP, PHOS, MG, LIPID #### [facility] [address] Eosinophils (Bld) [#/Vol] 0.2 10*3/uL Normal 0.0-0.45 [facility] Comment on above: Performed By: #### C BC, CMP, PHOS, MG, LIPID #### [facility] [address] Eosinophils/100 WBC (Bld) 4.2 % Normal . [facility] Comment on above: Performed By: #### C BC, CMP, PHOS, MG, LIPID #### [facility] [address] Erythrocyte distribution width (RBC) [Ratio] 15.8 % High 11.9-15.3 [facility] Comment on above: Performed By: #### C BC, CMP, PHOS, MG, LIPID #### [address] Hematocrit (Bld) [Volume fraction] 37.5 % Normal 34.0-46.4 [facility] Comment on above: Performed By: #### C BC, CMP, PHOS, MG, LIPID #### [address] Hemoglobin (Bld) [Mass/Vol] 12.3 g/dL Normal 11.8-15.4 [facility] Comment on above: Performed By: #### C BC, CMP, PHOS, MG, LIPID #### [address] Lymphocytes (Bld) [#/Vol] 1.6 10*3/uL Normal 1.00-4.8 [facility] Comment on above: Performed By: #### C BC, CMP, PHOS, MG, LIPID #### [address] Lymphocytes/100 WBC (Bld) 31.2 % Normal . [facility] Comment on above: Performed By: #### C BC, CMP, PHOS, MG, LIPID #### [address] MCH (RBC) [Entitic mass] 29.7 pg Normal 24.7-34.3 [facility] Comment on above: Performed By: #### C BC, CMP, PHOS, MG, LIPID #### [address] MCV (RBC) [Entitic vol] 90.5 fL Normal 80-100 [facility] Comment on above: Performed By: #### C BC, CMP, PHOS, MG, LIPID #### [address] Mean Corpuscular HGB Conc 32.8 g/dL Normal 32.0-35.0 [facility] Comment on above: Performed By: #### C BC, CMP, PHOS, MG, LIPID #### [address] Monocytes (Bld) [#/Vol] 0.7 10*3/uL Normal 0.0-0.8 [facility] Comment on above: Performed By: #### C BC, CMP, PHOS, MG, LIPID #### [facility] [address] Monocytes/100 WBC (Bld) 13.1 % Normal . [facility] Comment on above: Performed By: #### C BC, CMP, PHOS, MG, LIPID #### [facility] [address] Neutrophils (Bld) [#/Vol] 2.6 10*3/uL Normal 1.8-7.7 [place] [facility] Comment on above: Performed By: #### C BC, CMP, PHOS, MG, LIPID #### [address] Neutrophils/100 WBC (Bld) 50.7 % Normal . [facility] Comment on above: Performed By: #### C BC, CMP, PHOS, MG, LIPID #### [facility] [address] [place] [address] [place] Nucleated RBC/100 WBC (Bld) [Ratio] 0.1 % Normal 0-0.5 [facility] Comment on above: Performed By: #### C BC, CMP, PHOS, MG, LIPID #### [facility] [address] [place] [address] [place] Platelet mean volume (Bld) [Entitic vol] 8.5 fL Normal 6.3-10.7 [facility] Comment on above: Performed By: #### C BC, CMP, PHOS, MG, LIPID #### [facility] [address] [place] [address] [place] Platelets (Bld) [#/Vol] 190 10*3/uL Normal 150-450 [facility] Comment on above: Performed By: #### C BC, CMP, PHOS, MG, LIPID #### [facility] [address] [place] [address] [place] RBC (Bld) [#/Vol] 4.15 10*6/uL Normal 3.60-5.00 [facility] Comment on above: Performed By: #### C BC, CMP, PHOS, MG, LIPID #### [address] WBC (Bld) [#/Vol] 5.1 10*3/uL Normal 4.5-11.0 [facility] Comment on above: Performed By: #### C BC, CMP, PHOS, MG, LIPID #### [address] Comprehensive Metabolic Pane clarice 01-04-2022 Albumin [Mass/Vol] 3.0 g/dL Low 3.2-5.5 [facility] Comment on above: Performed By: #### C BC, CMP, PHOS, MG, LIPID #### [address] Albumin/Globulin [Mass ratio] 1.2 {ratio} Normal [facility] Comment on above: Performed By: #### C BC, CMP, PHOS, MG, LIPID #### [address] ALP [Catalytic activity/Vol] 32 U/L Normal 32-92 [facility] Comment on above: Performed By: #### C BC, CMP, PHOS, MG, LIPID #### [address] ALT [Catalytic activity/Vol] 12 U/L Normal 10-60 [facility] Comment on above: Performed By: #### C BC, CMP, PHOS, MG, LIPID #### [address] Anion gap [Moles/Vol] 10.6 mmol/L Normal 6.0-15.0 [facility] Comment on above: Performed By: #### C BC, CMP, PHOS, MG, LIPID #### [address] AST [Catalytic activity/Vol] 15 U/L Normal 10-42 [facility] Comment on above: Performed By: #### C BC, CMP, PHOS, MG, LIPID #### [facility] [address] Bilirubin [Mass/Vol] 0.3 mg/dL Normal 0.3-1.2 [facility] Comment on above: Performed By: #### C BC, CMP, PHOS, MG, LIPID #### [facility] [address] Calcium [Mass/Vol] 9.0 mg/dL Normal 8.2-10.2 [facility] Comment on above: Performed By: #### C BC, CMP, PHOS, MG, LIPID #### [address] Chloride [Moles/Vol] 103 mmol/L Normal 95-114 [facility] Comment on above: Performed By: #### C BC, CMP, PHOS, MG, LIPID #### [address] CO2 [Moles/Vol] 27.6 mmol/L Normal 22.0-30.0 [facility] Comment on above: Performed By: #### C BC, CMP, PHOS, MG, LIPID #### [address] Creatinine [Mass/Vol] 1.21 mg/dL High 0.44-1.03 [facility] Comment on above: Performed By: #### C BC, CMP, PHOS, MG, LIPID #### [address] Creatinine Clr Calc Pharmacy 49.01 [facility] Comment on above: Performed By: #### C BC, CMP, PHOS, MG, LIPID #### [address] Estimated GFR ( [place] 55 [facility] Comment on above: Result Comment: GFR estimated reference range: According to KDOQI guidelines, <60 ml/min/1.73m2 is sufficient to diagnose a patient with chronic kidney disease. Performed By: #### C BC, CMP, PHOS, MG, LIPID #### [facility] [address] [place] [address] [place] Estimated GFR (Non- Am 46 Normal [facility] Comment on above: Performed By: #### C BC, CMP, PHOS, MG, LIPID #### [facility] [address] Globulin (S) [Mass/Vol] 2.6 g/dL Normal [facility] Comment on above: Performed By: #### C BC, CMP, PHOS, MG, LIPID #### [facility] [address] Glucose [Mass/Vol] 151 mg/dL High 70-100 [facility] Comment on above: Result Comment: [facility] Glucose Reference Range is dependent on time and content of last meal. Glucose of more than 200 mg/dL in a nonstressed, ambulatory subject supports the diagnosis of Diabetes Mellitus. ADA recommended reference range Performed By: #### C BC, CMP, PHOS, MG, LIPID #### [facility] [address] Potassium [Moles/Vol] 3.2 mmol/L Low 3.5-5.1 [facility] Comment on above: Performed By: #### C BC, CMP, PHOS, MG, LIPID #### [facility] [address] Protein [Mass/Vol] 5.6 g/dL Low 6.1-7.9 [facility] Comment on above: Performed By: #### C BC, CMP, PHOS, MG, LIPID #### [facility] [address] Sodium [Moles/Vol] 138 mmol/L Normal 136-146 [facility] Comment on above: Performed By: #### C BC, CMP, PHOS, MG, LIPID #### [facility] [address] Urea nitrogen [Mass/Vol] 11 mg/dL Normal 9-23 [facility] Comment on above: Performed By: #### C BC, CMP, PHOS, MG, LIPID #### [facility] [address] Laboratory - Chemistry and C hemistry - challengeOrdered By: Henry Burnett on 01-04-2022 Magnesium [Mass/Vol] 1.6 mg/dL 1.6-2.6 [facility] Lipid Panelon 01-04-2022 Cholesterol [Mass/Vol] 145 mg/dL Normal 140-200 [facility] Comment on above: Result Comment: Chol less than 200 mg/dl low risk Chol 201-239 mg/dl borderline risk Chol 240 mg/dl and greater high risk Performed By: #### C BC, CMP, PHOS, MG, LIPID #### [facility] [address] Cholesterol in HDL [Mass/Vol] 55 mg/dL Normal 35-85 [facility] Comment on above: Result Comment: HDL CHOL ATP-III CLASSIFICATION Cardiovascular Risk HDL > or equal to 60 mg/dL LOW HDL < 40 mg/dL HIGH Performed By: #### C BC, CMP, PHOS, MG, LIPID #### [facility] [address] Cholesterol.total/Tila sterol in HDL [Mass ratio] 2.6 {ratio} Normal <5.0 [facility] Comment on above: Result Comment: PERF ORMED BY: [place] [address] PATHOLOGIST UTILITY SERVICE WORKER ANTONY ELIAS M.D. Performed By: #### C BC, CMP, PHOS, MG, LIPID #### [facility] [address] LDL Cholesterol,Calculated 78 mg/dL Normal 0-100 [facility] Comment on above: Result Comment: LDL ATP III CLASSIFICATION LDL less than 100 mg/dL Optimal LDL 100-129 mg/dL Near or above optimal LDL 130-159 mg/dL Borderline high LDL 160-189 mg/dL High LDL greater than 189 mg/dL Very high Performed By: #### C BC, CMP, PHOS, MG, LIPID #### [facility] [address] [place] [address] [place] Triglyceride w/Reflex 60 mg/dL Normal 35-149 [facility] Comment on above: Result Comment: TRIG ATP III CLASSIFICATION TRIG less than 150 mg/dL Normal TRIG 150-199 mg/dL Borderline high TRIG 200-500 mg/dL High TRIG greater than 500 mg/dL Very high Standard traceable to the Center for Disease Conrtrol and Prevention (CDC) test method. Performed By: #### C BC, CMP, PHOS, MG, LIPID #### [facility] [address] VLDL CHOLESTEROL 12 mg/dL Normal [facility] Comment on above: Performed By: #### C BC, CMP, PHOS, MG, LIPID #### [facility] [address] [place] [address] Magnesiumon 01-04-2022 Magnesium [Mass/Vol] 1.6 mg/dL Normal 1.6-2.6 [facility] Comment on above: Performed By: #### C BC, CMP, PHOS, MG, LIPID #### [address] No Panel InformationOrdered By: Graham Helm on 01-04-2022 Valproic Acid (Depakene) Level 28.2 ug/mL 50.0-100.0 [facility] Comment on above: Last dose: - Phosphate [Mass/volume] in S yeyo or PlasmaOrdered By: Henry Burnett on 01-04-2022 Phosphate [Mass/Vol] 3.5 mg/dL 2.5-4.6 [facility] Phosphoruson 01-04-2022 Phosphate [Mass/Vol] 3.5 mg/dL Normal 2.5-4.6 [facility] Comment on above: Performed By: #### C BC, CMP, PHOS, MG, LIPID #### [facility] [address] [place] [address] Serum or plasma high density lipoprotein (HDL) cholesterol measurementOrdered By: Henry Burnett on 01-04-2022 Cholesterol in HDL [Mass/Vol] 55 mg/dL 35-85 [facility] Comment on above: HDL CHOL ATP-III CLA SSIFICATION Cardiovascular RiskHDL > or equal to 60 mg/dL LOWHDL < 40 mg/dL HIGH Serum or plasma total choles terol/high density lipoprotein (HDL) cholesterol mass ratOrdered By: Henry Burnett on 01-04-2022 Cholesterol.total/Tila sterol in HDL [Mass ratio] 2.6 {ratio} <5.0 [facility] Triglyceride [Mass/volume] i n Serum or PlasmaOrdered By: Henry Burnett on 01-04-2022 Triglyceride [Mass/Vol] 60 mg/dL 35-149 [facility] Comment on above: TRIG ATP III CLASSIF ICATIONTRIG less than 150 mg/dL NormalTRIG 150-199 mg/dL Borderline highTRIG 200-500 mg/dL High TRIG greater than 500 mg/dL Very highStandard traceable to the Center for Disease Conrtrol and Prevention (CDC) test method. Valproic Acid (in house)on Valproic Acid (in house) 28.2 ug/mL Low 50.0-100.0 [facility] Comment on above: Result Comment: Last dose: - PERFORMED BY: [place] [address] PATHOLOGIST UTILITY SERVICE WORKER ANTONY ELIAS M.D. Performed By: #### C BC, CMP, PHOS, MG, LIPID #### [facility] [address] Acetaminophenon 01-03-2022 Acetaminophen [Mass/Vol] 25.3 ug/mL Normal 10.0-30.0 [facility] Comment on above: Performed By: #### C MP, T4F, TSH3, CBC, ETOH, JUAN, ACET, VALP #### [facility] [address] [place] [address] [place] Albumin [Mass/volume] in Ser um or PlasmaOrdered By: Justin Francisco on 01-03-2022 Albumin [Mass/Vol] 3.6 g/dL 3.2-5.5 [facility] Amphetamine Screen Ql (U)Ord ered By: Justin Francisco on 01-03-2022 Amphetamines Ql (U) Negative Negative [facility] Automated erythrocytes count in urine sediment (number/area)Ordered By: Justin Francisco on 01-03-2022 RBC Auto (Urine sed) [#/Area] None seen [HPF] 0-4 [facility] Automated leukocytes count i n urine sediment (number/area)Ordered By: Justin Francisco on 01-03-2022 WBC Auto (Urine sed) [#/Area] 5-9 [HPF] 0-4 [facility] Barbiturates [Presence] in U rineOrdered By: Justin Francisco on 01-03-2022 Barbiturates Ql (U) Negative Negative [facility] Basophils Auto (Bld) [#/Vol] Ordered By: Justin Francisco on 01-03-2022 Basophils (Bld) [#/Vol] 0.0 10*3/uL 0.0-0.2 [facility] Basophils/100 WBC Auto (Bld) Ordered By: Justin Francisco on 01-03-2022 Basophils/100 WBC (Bld) 0.6 % . [facility] Benzodiazepines [Presence] i n UrineOrdered By: Justin Francisco on 01-03-2022 Benzodiazepines Ql (U) Negative Negative [facility] Bilirubin Test strip Ql (U)O rdered By: Justin Francisco on 01-03-2022 Bilirubin Ql (U) Negative Negative [facility] Blood hemoglobin measurement (mass/volume)Ordered By: Justin Francisco on 01-03-2022 Hemoglobin (Bld) [Mass/Vol] 13.4 g/dL 11.8-15.4 [facility] Blood leukocytes automated c ount (number/volume)Ordered By: Justin Francisco on 01-03-2022 WBC (Bld) [#/Vol] 6.4 10*3/uL 4.5-11.0 [facility] COVID-19 Antigenon 2 COVID-19 Antigen Healthcare [...] developed and its performance characteristic determined by [employer] and validated at [facility]. This test has not been FDA [...] for SARS Antigen by MARLINE PERFORMED BY: [place] [address] PATHOLOGIST UTILITY SERVICE WORKER ANTONY ELIAS M.D. Normal [facility] Comment on above: Performed By: #### C BC, CMP, PHOS, MG, LIPID #### [address] COVID-19 [facility] 01-03-2022 SARS-CoV-2 (COVID-19) RNA ARMINDA+probe Ql (Unsp spec) Negative Normal Negative [facility] Comment on above: Order Comment: Healt hcare Worker?: N Result Comment: Testing for SARS-CoV-2 by RT-PCR This test was developed and its performance characteristics determined by [employer] ([employer]) and validated at the [facility]. This test has not been FDA [...] is terminated or revoked sooner. PERFORMED BY: [place] [address] PATHOLOGIST UTILITY SERVICE WORKER ANTONY ELIAS M.D. Performed By: #### C BC, CMP, PHOS, MG, LIPID #### [address] COVID-19 Positive/NegativeOr dered By: Justin Francisco on 01-03-2022 SARS-CoV-2 (COVID-19) N gene ARMINDA+probe Ql (Resp) Negative Negative [facility] Comment on above: Testing for SARS-CoV -2 by RT-PCRThis test was developed and its performance characteristics determined by [employer] ([employer]) and validated at the [facility]. This test has not been FDA [...] (COVID-19) Ag IA.rapid Ql (Resp) Negative Negative [facility] Comment on above: This is a duplicate [facility] SARS Antigen ([employer]) result to be used for statistical tracking purpose only. CT head/brain wo conon 01-03 CT head/brain wo con [facility] [place] [address] CT Scan Report Signed Patient: Kathy Porter MR#: [id number] : 1960 Acct:[id number] Age/Sex: 61 / F ADM Date: 01/03/22 Loc: ER Room: Type: [facility] ER Attending Dr: Copies to: Justin [...] Rajinder Cardona M.D.01/03/2022 3:21 PM Dictation Location: [place] [address] Transcribed By: GELA 01/03/22 1521 Dictated By: Rajinder Cardona II, MD 01/03/22 1518 Signed By: 01/03/22 1521 Normal [facility] Cannabinoids [Presence] in U rine by Screen methodOrdered By: Justin Francisco on 01-03-2022 Cannabinoids Screen Ql (U) Negative Negative [facility] Comment on above: These are unconfirme d results and should not be used for legal purposes. Drug Cut-Off Concentration: AMPH 1000 ng/mL TERRY 200 ng/mL HONG 200 ng/mL COCM 300 ng/mL OP 300 ng/mL PCP 25 ng/mL THC 20 ng/mL Color Auto (U)Ordered By: Aman Francisco on 01-03-2022 Color (U) Yellow Yellow [facility] Complete Blood Count Auto Di ffon 01-03-2022 Basophils (Bld) [#/Vol] 0.0 10*3/uL Normal 0.0-0.2 [facility] Comment on above: Result Comment: PERF ORMED BY: [place] [address] PATHOLOGIST UTILITY SERVICE WORKER ANTONY ELIAS M.D. Performed By: #### C MP, T4F, TSH3, CBC, ETOH, JUAN, ACET, VALP #### [facility] [address] [place] [address] [place] Basophils/100 WBC (Bld) 0.6 % Normal . [facility] Comment on above: Performed By: #### C MP, T4F, TSH3, CBC, ETOH, JUAN, ACET, VALP #### [facility] [address] [place] [address] [place] Eosinophils (Bld) [#/Vol] 0.1 10*3/uL Normal 0.0-0.45 [facility] Comment on above: Performed By: #### C MP, T4F, TSH3, CBC, ETOH, JUAN, ACET, VALP #### [facility] [address] [place] [address] [place] Eosinophils/100 WBC (Bld) 1.4 % Normal . [facility] Comment on above: Performed By: #### C MP, T4F, TSH3, CBC, ETOH, JUAN, ACET, VALP #### [address] Erythrocyte distribution width (RBC) [Ratio] 15.7 % High 11.9-15.3 [facility] Comment on above: Performed By: #### C MP, T4F, TSH3, CBC, ETOH, JUAN, ACET, VALP #### [address] Hematocrit (Bld) [Volume fraction] 41.0 % Normal 34.0-46.4 [facility] Comment on above: Performed By: #### C MP, T4F, TSH3, CBC, ETOH, JUAN, ACET, VALP #### [address] Hemoglobin (Bld) [Mass/Vol] 13.4 g/dL Normal 11.8-15.4 [facility] Comment on above: Performed By: #### C MP, T4F, TSH3, CBC, ETOH, JUAN, ACET, VALP #### [address] Lymphocytes (Bld) [#/Vol] 1.4 10*3/uL Normal 1.00-4.8 [facility] Comment on above: Performed By: #### C MP, T4F, TSH3, CBC, ETOH, JUAN, ACET, VALP #### [address] Lymphocytes/100 WBC (Bld) 22.3 % Normal . [facility] Comment on above: Performed By: #### C MP, T4F, TSH3, CBC, ETOH, JUAN, ACET, VALP #### [address] MCH (RBC) [Entitic mass] 29.7 pg Normal 24.7-34.3 [facility] Comment on above: Performed By: #### C MP, T4F, TSH3, CBC, ETOH, JUAN, ACET, VALP #### [facility] [address] MCV (RBC) [Entitic vol] 91.0 fL Normal 80-100 [facility] Comment on above: Performed By: #### C MP, T4F, TSH3, CBC, ETOH, JUAN, ACET, VALP #### [address] Mean Corpuscular HGB Conc 32.6 g/dL Normal 32.0-35.0 [facility] Comment on above: Performed By: #### C MP, T4F, TSH3, CBC, ETOH, JUAN, ACET, VALP #### [address] Monocytes (Bld) [#/Vol] 0.6 10*3/uL Normal 0.0-0.8 [facility] Comment on above: Performed By: #### C MP, T4F, TSH3, CBC, ETOH, JUAN, ACET, VALP #### [address] Monocytes/100 WBC (Bld) 8.9 % Normal . [facility] Comment on above: Performed By: #### C MP, T4F, TSH3, CBC, ETOH, JUAN, ACET, VALP #### [address] Neutrophils (Bld) [#/Vol] 4.3 10*3/uL Normal 1.8-7.7 [facility] Comment on above: Performed By: #### C MP, T4F, TSH3, CBC, ETOH, JUAN, ACET, VALP #### [address] Neutrophils/100 WBC (Bld) 66.8 % Normal . [facility] Comment on above: Performed By: #### C MP, T4F, TSH3, CBC, ETOH, JUAN, ACET, VALP #### [address] Nucleated RBC/100 WBC (Bld) [Ratio] 0.1 % Normal 0-0.5 [facility] Comment on above: Performed By: #### C MP, T4F, TSH3, CBC, ETOH, JUAN, ACET, VALP #### [address] Platelet mean volume (Bld) [Entitic vol] 8.8 fL Normal 6.3-10.7 [facility] Comment on above: Performed By: #### C MP, T4F, TSH3, CBC, ETOH, JUAN, ACET, VALP #### [address] Platelets (Bld) [#/Vol] 236 10*3/uL Normal 150-450 [facility] Comment on above: Performed By: #### C MP, T4F, TSH3, CBC, ETOH, JUAN, ACET, VALP #### [address] RBC (Bld) [#/Vol] 4.50 10*6/uL Normal 3.60-5.00 [facility] Comment on above: Performed By: #### C MP, T4F, TSH3, CBC, ETOH, JUAN, ACET, VALP #### [address] WBC (Bld) [#/Vol] 6.4 10*3/uL Normal 4.5-11.0 [facility] Comment on above: Performed By: #### C MP, T4F, TSH3, CBC, ETOH, JUAN, ACET, VALP #### [address] Comprehensive Metabolic Pane clarice 01-03-2022 Albumin [Mass/Vol] 3.6 g/dL Normal 3.2-5.5 [facility] Comment on above: Performed By: #### C BC, CMP, PHOS, MG, LIPID #### [address] Albumin/Globulin [Mass ratio] 1.2 {ratio} Normal [facility] Comment on above: Performed By: #### C BC, CMP, PHOS, MG, LIPID #### [facility] [address] ALP [Catalytic activity/Vol] 40 U/L Normal 32-92 [facility] Comment on above: Performed By: #### C BC, CMP, PHOS, MG, LIPID #### [facility] [address] ALT [Catalytic activity/Vol] 14 U/L Normal 10-60 [facility] Comment on above: Performed By: #### C BC, CMP, PHOS, MG, LIPID #### [facility] [address] Anion gap [Moles/Vol] 16.7 mmol/L High 6.0-15.0 [facility] Comment on above: Performed By: #### C BC, CMP, PHOS, MG, LIPID #### [facility] [address] AST [Catalytic activity/Vol] 18 U/L Normal 10-42 [facility] Comment on above: Performed By: #### C BC, CMP, PHOS, MG, LIPID #### [facility] [address] [place] [address] [place] Bilirubin [Mass/Vol] 0.6 mg/dL Normal 0.3-1.2 [facility] Comment on above: Performed By: #### C BC, CMP, PHOS, MG, LIPID #### [facility] [address] [place] [address] [place] Calcium [Mass/Vol] 9.5 mg/dL Normal 8.2-10.2 [facility] Comment on above: Performed By: #### C BC, CMP, PHOS, MG, LIPID #### [facility] [address] [place] [address] [place] Chloride [Moles/Vol] 99 mmol/L Normal 95-114 [facility] Comment on above: Performed By: #### C BC, CMP, PHOS, MG, LIPID #### [facility] [address] [place] [address] [place] CO2 [Moles/Vol] 23.6 mmol/L Normal 22.0-30.0 [facility] Comment on above: Performed By: #### C BC, CMP, PHOS, MG, LIPID #### [facility] [address] Creatinine [Mass/Vol] 1.38 mg/dL High 0.44-1.03 [facility] Comment on above: Performed By: #### C BC, CMP, PHOS, MG, LIPID #### [facility] [address] Creatinine Clr Calc Pharmacy 43.00 [facility] Comment on above: Performed By: #### C BC, CMP, PHOS, MG, LIPID #### [facility] [address] Estimated GFR ( [place] 47 [facility] Comment on above: Result Comment: GFR estimated reference range: According to KDOQI guidelines, <60 ml/min/1.73m2 is sufficient to diagnose a patient with chronic kidney disease. Performed By: #### C BC, CMP, PHOS, MG, LIPID #### [facility] [address] Estimated GFR (Non- Am 39 [facility] Comment on above: Performed By: #### C BC, CMP, PHOS, MG, LIPID #### [facility] [address] Globulin (S) [Mass/Vol] 3.1 g/dL [facility] Comment on above: Performed By: #### C BC, CMP, PHOS, MG, LIPID #### [facility] [address] Glucose [Mass/Vol] 137 mg/dL High 70-100 [facility] Comment on above: Result Comment: [facility] Glucose Reference Range is dependent on time and content of last meal. Glucose of more than 200 mg/dL in a nonstressed, ambulatory subject supports the diagnosis of Diabetes Mellitus. ADA recommended reference range Performed By: #### C BC, CMP, PHOS, MG, LIPID #### [facility] [address] Potassium [Moles/Vol] 4.3 mmol/L Normal 3.5-5.1 [facility] Comment on above: Performed By: #### C BC, CMP, PHOS, MG, LIPID #### [facility] [address] Protein [Mass/Vol] 6.7 g/dL Normal 6.1-7.9 [facility] Comment on above: Performed By: #### C BC, CMP, PHOS, MG, LIPID #### [address] Sodium [Moles/Vol] 135 mmol/L Low 136-146 [facility] Comment on above: Performed By: #### C BC, CMP, PHOS, MG, LIPID #### [address] Urea nitrogen [Mass/Vol] 14 mg/dL Normal 9-23 [facility] Comment on above: Performed By: #### C BC, CMP, PHOS, MG, LIPID #### [address] Creatinine and Glomerular fi ltration rate.predicted panel (S/P/Bld)Ordered By: Justin Francisco on 01-03-2022 Creatinine [Mass/Vol] 1.38 mg/dL 0.44-1.03 [facility] Dipstick and Microscopicon 1 Appearance (U) Clear Normal Clear [facility] Comment on above: Order Comment: Name Collection Type:: Clean-Voided Midstream Performed By: #### C BC, CMP, PHOS, MG, LIPID #### [address] Bacteria,Urine 2+ High None Seen [facility] Comment on above: Order Comment: Name Collection Type:: Clean-Voided Midstream Performed By: #### C BC, CMP, PHOS, MG, LIPID #### [address] Bilirubin,Urine Negative Normal Negative [facility] Comment on above: Order Comment: Name Collection Type:: Clean-Voided Midstream Performed By: #### C BC, CMP, PHOS, MG, LIPID #### [facility] [address] [place] [address] [place] Color (U) Yellow Normal Yellow [facility] Comment on above: Order Comment: Name Collection Type:: Clean-Voided Midstream Performed By: #### C BC, CMP, PHOS, MG, LIPID #### [facility] [address] Glucose Ql (U) Normal Normal Normal [facility] Comment on above: Order Comment: Name Collection Type:: Clean-Voided Midstream Performed By: #### C BC, CMP, PHOS, MG, LIPID #### [facility] [address] [place] [address] [place] Hyaline Casts,Urine 0-8 Normal 0-8 [facility] Comment on above: Order Comment: Name Collection Type:: Clean-Voided Midstream Performed By: #### C BC, CMP, PHOS, MG, LIPID #### [facility] [address] [place] [address] [place] Ketones Ql (U) Negative Normal Negative [facility] Comment on above: Order Comment: Name Collection Type:: Clean-Voided Midstream Performed By: #### C BC, CMP, PHOS, MG, LIPID #### [facility] [address] [place] [address] Leukocyte esterase Test strip Ql (U) 2+ High Negative [facility] Comment on above: Order Comment: Name Collection Type:: Clean-Voided Midstream Performed By: #### C BC, CMP, PHOS, MG, LIPID #### [facility] [address] [place] [address] [place] Nitrite,Urine Negative Normal Negative [facility] Comment on above: Order Comment: Name Collection Type:: Clean-Voided Midstream Performed By: #### C BC, CMP, PHOS, MG, LIPID #### [facility] [address] [place] [address] [place] Occult Blood,Urine Negative Normal Negative [facility] Comment on above: Order Comment: Name Collection Type:: Clean-Voided Midstream Result Comment: PERF ORMED BY: [place] [address] PATHOLOGIST [employer]ILITY SERVICE WORKER ANTONY ELIAS M.D. Performed By: #### C BC, CMP, PHOS, MG, LIPID #### [address] pH (U) 5.5 [pH] Normal 5.0-9.0 [facility] Comment on above: Order Comment: Name Collection Type:: Clean-Voided Midstream Performed By: #### C BC, CMP, PHOS, MG, LIPID #### [address] Protein,Urine Negative Normal Negative [facility] Comment on above: Order Comment: Name Collection Type:: Clean-Voided Midstream Performed By: #### C BC, CMP, PHOS, MG, LIPID #### [address] RBC,Urine None Seen Normal 0-4 [facility] Comment on above: Order Comment: Name Collection Type:: Clean-Voided Midstream Performed By: #### C BC, CMP, PHOS, MG, LIPID #### [address] Specificy [place],Urine 1.012 Normal 1.001-1.030 [facility] Comment on above: Order Comment: Name Collection Type:: Clean-Voided Midstream Performed By: #### C BC, CMP, PHOS, MG, LIPID #### [address] Squamous Epithelial Cell,Urine 3-4 High 0-2 [facility] Comment on above: Order Comment: Name Collection Type:: Clean-Voided Midstream Performed By: #### C BC, CMP, PHOS, MG, LIPID #### [address] Urobilinogen,Urine Normal Normal Normal [facility] Comment on above: Order Comment: Name Collection Type:: Clean-Voided Midstream Performed By: #### C BC, CMP, PHOS, MG, LIPID #### [facility] [address] [place] [address] WBC,Urine 5-9 High 0-4 [facility] Comment on above: Order Comment: Name Collection Type:: Clean-Voided Midstream Performed By: #### C BC, CMP, PHOS, MG, LIPID #### [facility] [address] [place] [address] Yeast,Urine None Seen Normal None Seen [facility] Comment on above: Order Comment: Name Collection Type:: Clean-Voided Midstream Result Comment: PERF ORMED BY: [place] [address] PATHOLOGIST UTILITY SERVICE WORKER ANTONY ELIAS M.D. Performed By: #### C BC, CMP, PHOS, MG, LIPID #### [facility] [address] [place] [address] Drug Screen,Urineon 01-04-20 Amphetamine Screen,Urine Negative Normal Negative [facility] Comment on above: Performed By: #### C BC, CMP, PHOS, MG, LIPID #### [facility] [address] [place] [address] Barbiturate Screen,Urine Negative Normal Negative [facility] Comment on above: Performed By: #### C BC, CMP, PHOS, MG, LIPID #### [facility] [address] [place] [address] Benzodiazepines Screen,Urine Negative Normal Negative [facility] Comment on above: Performed By: #### C BC, CMP, PHOS, MG, LIPID #### [facility] [address] [place] [address] Cannabinoid Screen,Urine Negative Normal Negative [facility] Comment on above: Result Comment: Thes e are unconfirmed results and should not be used for legal purposes. Drug Cut-Off Concentration: AMPH 1000 ng/mL TERRY 200 ng/mL HONG 200 ng/mL COCM 300 ng/mL OP 300 ng/mL PCP 25 ng/mL THC 20 ng/mL PERFORMED BY: [place] [address] PATHOLOGIST UTILITY SERVICE WORKER ANTONY ELIAS M.D. Performed By: #### C BC, CMP, PHOS, MG, LIPID #### [facility] [address] Cocaine Screen,Urine Negative Normal Negative [facility] Comment on above: Performed By: #### C BC, CMP, PHOS, MG, LIPID #### [facility] [address] Opiate Screen,Urine Negative Normal Negative [facility] Comment on above: Performed By: #### C BC, CMP, PHOS, MG, LIPID #### [facility] [address] Phencyclidine Screen,Urine Negative Normal Negative [facility] Comment on above: Performed By: #### C BC, CMP, PHOS, MG, LIPID #### [facility] [address] ECG 12 lead ECGon 01-03-2022 ECG 12 lead ECG [facility] [place] [address] [place] [address] Electrocardiograph Report Signed Patient: Kathy Porter MR#: [id number] : 1960 Acct:[id number] Age/Sex: 61 / F ADM Date: 01/03/22 Loc: Room: [address] [place] [address] Type: DIS INOo Attending Dr: Henry Burnett [...] ECGs available Confirmed by Justin Francisco DO ([id number]) on 01/03/2022 7:17:59 PM Referred By: Electronically Signed By:Justin Francisco DO Transcribed By: MUS Signed By Justin Francisco DO 01/03 191 Normal [facility] Eosinophils Auto (Bld) [#/Vo l]Ordered By: Justin Francisco on 01-03-2022 Eosinophils (Bld) [#/Vol] 0.1 10*3/uL 0.0-0.45 [facility] Eosinophils/100 WBC Auto (Bl d)Ordered By: Justin Francisco on 01-03-2022 Eosinophils/100 WBC (Bld) 1.4 % . [facility] Erythrocyte distribution wid th Auto (RBC) [Ratio]Ordered By: Justin Francisco on 01-03-2022 Erythrocyte distribution width (RBC) [Ratio] 15.7 % 11.9-15.3 [facility] Estimated glomerular filtrat ion rate (GFR) non- AmericanOrdered By: Justin Francisco on 01-03-2022 GFR/1.73 sq M.predicted among non-blacks MDRD (S/P/Bld) [Vol rate/Area] 39 mL/Min [facility] Ethyl Alcohol Profileon Ethanol [Mass/Vol] mg/dL Normal [facility] Comment on above: Performed By: #### C MP, T4F, TSH3, CBC, ETOH, JUAN, ACET, VALP #### [facility] [address] [place] [address] Percent Ethanol Not performed Normal [facility] Comment on above: Result Comment: PERF ORMED BY: [address] [place] [address] PATHOLOGIST [employer]ILITY SERVICE WORKER ANTONY ELIAS M.D. Performed By: #### C MP, T4F, TSH3, CBC, ETOH, JUAN, ACET, VALP #### [facility] [address] Free T4 (Free Thyroxine)on Free T4 [Mass/Vol] 1.10 ng/dL Normal 0.61-1.12 [facility] Comment on above: Performed By: #### C BC, CMP, PHOS, MG, LIPID #### [facility] [address] Globulin Calc (S) [Mass/Vol] Ordered By: Justin Francisco on 01-03-2022 Globulin (S) [Mass/Vol] 3.1 g/dL F [facility] Hematocrit Auto (Bld) [Volum e fraction]Ordered By: Justin Francisco on 01-03-2022 Hematocrit (Bld) [Volume fraction] 41.0 % 34.0-46.4 [facility] Ketones Auto test strip (U) [Mass/Vol]Ordered By: Justin Francisco on 01-03-2022 Ketones (U) [Mass/Vol] Negative Negative Fi [facility] Laboratory - Drug toxicology Ordered By: Justin Francisco on 01-03-2022 Opiates Ql (U) Negative Negative [facility] Laboratory - Hematology and Cell countsOrdered By: Justin Francisco on 01-03-2022 Nucleated RBC/100 WBC (Bld) [Ratio] 0.1 % 0-0.5 [facility] Laboratory - UrinalysisOrder ed By: Justin Francisco on 01-03-2022 Hyaline casts LM Ql (Urine sed) 0-8 [LPF] 0-8 [facility] Lymphocytes Auto (Bld) [#/Vo l]Ordered By: Justin Francisco on 01-03-2022 Lymphocytes (Bld) [#/Vol] 1.4 10*3/uL 1.00-4.8 [facility] Lymphocytes/100 WBC Auto (Bl d)Ordered By: Justin Francisco on 01-03-2022 Lymphocytes/100 WBC (Bld) 22.3 % . [facility] MCH Auto (RBC) [Entitic mass ]Ordered By: Justin Francisco on 01-03-2022 MCH (RBC) [Entitic mass] 29.7 pg 24.7-34.3 [facility] MCHC Auto (RBC) [Mass/Vol]Or dered By: Justin Francisco on 01-03-2022 MCHC (RBC) [Mass/Vol] 32.6 g/dL 32.0-35.0 [facility] MCV Auto (RBC) [Entitic vol] Ordered By: Justin Francisco on 01-03-2022 MCV (RBC) [Entitic vol] 91.0 fL 80-100 F [facility] Monocytes Auto (Bld) [#/Vol] Ordered By: Justin Francisco on 01-03-2022 Monocytes (Bld) [#/Vol] 0.6 10*3/uL 0.0-0.8 [facility] Monocytes/100 WBC Auto (Bld) Ordered By: Justin Francisco on 01-03-2022 Monocytes/100 WBC (Bld) 8.9 % . [facility] Neutrophils Auto (Bld) [#/Vo l]Ordered By: Justin Francisco on 01-03-2022 Neutrophils (Bld) [#/Vol] 4.3 10*3/uL 1.8-7.7 [facility] Neutrophils/100 WBC Auto (Bl d)Ordered By: Justin Francisco on 01-03-2022 Neutrophils/100 WBC (Bld) 66.8 % . [facility] Nitrite Test strip Ql (U)Ord ered By: Justin Francisco on 01-03-2022 Nitrite Ql (U) Negative Negative [facility] No Panel InformationOrdered By: Justin Francisco on 01-03-2022 Estimated GFR () 47 mL/Min [facility] Comment on above: GFR estimated refere nce range: According to KDOQI guidelines, <60 ml/min/1.73m2 is sufficient to diagnose a patient with chronic kidney disease. Pharmacy Creatinine Clearance (Chem 43.00 [facility] Valproic Acid (Depakene) Level 59.0 ug/mL 50.0-100.0 [facility] Comment on above: Last dose: - SARS Antigen (LFIA) [facility] Phencyclidine Screen Ql (U)O rdered By: Justin Francisco on 01-03-2022 Phencyclidine Ql (U) Negative Negative [facility] Platelet mean volume Auto (B ld) [Entitic vol]Ordered By: Justin Francisco on 01-03-2022 Platelet mean volume (Bld) [Entitic vol] 8.8 fL 6.3-10.7 [facility] Platelets Auto (Bld) [#/Vol] Ordered By: Justin Francisco on 10-04-2022 Platelets (Bld) [#/Vol] 236 10*3/uL 150-450 [facility] Protein Auto test strip (U) [Mass/Vol]Ordered By: Justin Francisco on 01-03-2022 Protein (U) [Mass/Vol] Negative Negative [facility] Protein [Mass/volume] in Ser um or PlasmaOrdered By: Justin Francisco on 01-03-2022 Protein [Mass/Vol] 6.7 g/dL 6.1-7.9 [facility] RBC Auto (Bld) [#/Vol]Ordere d By: Justin Francisco on 01-03-2022 RBC (Bld) [#/Vol] 4.50 10*6/uL 3.60-5.00 [facility] Salicylateon 01-03-2022 Salicylate < 4.0 Low 15.0-30.0 [facility] Comment on above: Result Comment: Phuong ents treated with Sulfasalazine may generate a false high result for Salicylate. Patients treated with Sulfapyridine may generate a false low result for Salicylate. Performed By: #### C MP, T4F, TSH3, CBC, ETOH, JUAN, ACET, VALP #### [facility] [address] Salicylates [Mass/volume] in Serum or PlasmaOrdered By: Justin Francisco on 01-03-2022 Salicylates [Mass/Vol] mg/dL 15.0-30.0 [facility] Comment on above: Patients treated wit h Sulfasalazine may generate a false high result for Salicylate.Patients treated with Sulfapyridine may generate a false low result for Salicylate. Serum or plasma acetaminophe n measurement (mass/volume)Ordered By: Justin Francisco on 01-03-2022 Acetaminophen [Mass/Vol] 25.3 ug/mL 10.0-30.0 [facility] Serum or plasma alanine angeles otransferase measurement without P-5'-P (enzymatic activiOrdered By: Justin Francisco on 01-03-2022 ALT No additional P-5'-P [Catalytic activity/Vol] 14 U/L [facility] Serum or plasma albumin/glob ulin mass ratioOrdered By: Justin Francisco on 01-03-2022 Albumin/Globulin [Mass ratio] 1.2 {ratio} [facility] Serum or plasma alkaline flaquita sphatase measurement (enzymatic activity/volume)Ordered By: Justin Francisco on 01-03-2022 ALP [Catalytic activity/Vol] 40 U/L 32-92 [facility] Serum or plasma anion gap de terminationOrdered By: Justin Francisco on 01-03-2022 Anion gap [Moles/Vol] 16.7 mmol/L 6.0-15.0 [facility] Serum or plasma aspartate am inotransferase measurement (enzymatic activity/volume)Ordered By: Justin Francisco on 01-03-2022 AST [Catalytic activity/Vol] 18 U/L 10- [facility] Serum or plasma calcium sarah urement (mass/volume)Ordered By: Justin Francisco on 01-03-2022 Calcium [Mass/Vol] 9.5 mg/dL 8.2-10.2 [facility] Serum or plasma chloride deep surement (moles/volume)Ordered By: Justin Francisco on 01-03-2022 Chloride [Moles/Vol] 99 mmol/L 95-114 [facility] Serum or plasma ethanol sarah urement (mass/volume)Ordered By: Justin Francisco on 01-03-2022 Ethanol [Mass/Vol] mg/dL [facility] Ethanol [Mass/Vol] TNP [facility] Comment on above: Test not performed Serum or plasma glucose sarah urement (mass/volume)Ordered By: Justin Francisco on 01-03-2022 Glucose [Mass/Vol] 137 mg/dL 70-100 [facility] Comment on above: ADA recommended refe rence rangeRandom Glucose Reference Range is dependent on time and content of last meal. Glucose of more than 200 mg/dL in a nonstressed, ambulatory subject supports the diagnosis of Diabetes Mellitus. Serum or plasma potassium me asurement (moles/volume)Ordered By: Justin Francisco on 01-03-2022 Potassium [Moles/Vol] 4.3 mmol/L 3.5-5.1 [facility] Serum or plasma sodium measu rement (moles/volume)Ordered By: Justin Francisco on 01-03-2022 Sodium [Moles/Vol] 135 mmol/L 136-146 [facility] Serum or plasma total biliru bin measurement (mass/volume)Ordered By: Justin Francisco on 01-03-2022 Bilirubin [Mass/Vol] 0.6 mg/dL 0.3-1.2 [facility] Serum or plasma total carbon dioxide measurement (moles/volume)Ordered By: Justin Francisco on 01-03-2022 CO2 [Moles/Vol] 23.6 mmol/L 22.0-30.0 [facility] Serum or plasma urea nitroge n measurement (mass/volume)Ordered By: Justin Francisco on 01-03-2022 Urea nitrogen [Mass/Vol] 14 mg/dL 12-23 [facility] Delores Ag Negativeon 01-04-20 Delores Ag Negative Negative Normal Negative [facility] Comment on above: Result Comment: This is a duplicate Delores SARS Antigen (MARLINE) result to be used for statistical tracking purpose only. PERFORMED BY: [place] [address] PATHOLOGIST UTILITY SERVICE WORKER ANTONY ELIAS M.D. Performed By: #### C BC, CMP, PHOS, MG, LIPID #### [address] Specific gravity Auto test s trip (U) [Rel density]Ordered By: Jsutin Francisco on 01-03-2022 Specific gravity (U) [Rel density] 1.012 1.001-1.030 [facility] Squamous epithelial cells de tection in urine sediment by light microscopyOrdered By: Justin Francisco on 01-03-2022 Epithelial cells.squamous LM Ql (Urine sed) 3-4 [HPF] 0-2 [facility] TSH DL <= 0.005 mIU/L QnOrde red By: Justin Francisco on 01-03-2022 TSH Qn 4.71 m[IU]/L 0.45-5.33 [facility] Thyroid Stimulating Hormoneo n 01-03-2022 TSH Qn 4.71 m[IU]/L Normal 0.45-5.33 [facility] Comment on above: Result Comment: PERF ORMED BY: [place] [address] PATHOLOGIST UTILITY SERVICE WORKER ANTONY ELIAS M.D. Performed By: #### C BC, CMP, PHOS, MG, LIPID #### [facility] [address] Thyroxine (T4) free [Mass/vo lume] in Serum or PlasmaOrdered By: Justin Francisco on 01-03-2022 Free T4 [Mass/Vol] 1.10 ng/dL 0.61-1.12 [facility] Urine Cultureon 01-03-2022 Bacteria identified Cx Nom (U) ORGANISM: Escherichia coli (O:ESCCOL) [place] Count >100,000 Aerobic AHMET Charge (NUC86) ---- [...] B-LACTAM DRUGS. PERFORMED BY: [facility] [address] PATHOLOGIST UTILITY SERVICE WORKER ANTONY ELIAS M.D. Normal [facility] Comment on above: Performed By: #### C BC, CMP, PHOS, MG, LIPID #### [facility] [address] [place] [address] [facility] Urine bacteria detection by automated methodOrdered By: Justin Francisco on 01-03-2022 Bacteria Auto Ql (U) 2+ None Seen [facility] Urine clarity by refractomet ry automatedOrdered By: Justin Francisco on 01-03-2022 Clarity Refractometry automated (U) Clear Clear [facility] Urine cocaine detectionOrder ed By: Justin Francisco on 01-03-2022 Cocaine Ql (U) Negative Negative [facility] Urine glucose measurement by automated test strip (mass/volume)Ordered By: Justin Francisco on 01-03-2022 Glucose Auto test strip (U) [Mass/Vol] Normal mg/dL Normal [facility] Urine hemoglobin detection b y automated test stripOrdered By: Justin Francisco on 01-03-2022 Hemoglobin Auto test strip Ql (U) Negative Negative [facility] Urine leukocyte esterase det ection by automated test stripOrdered By: Justin Francisco on 01-03-2022 Leukocyte esterase Auto test strip Ql (U) 2+ Negative [facility] Urobilinogen Auto test strip (U) [Mass/Vol]Ordered By: Justin Francisco on 01-03-2022 Urobilinogen (U) [Mass/Vol] Normal mg/dL Normal [facility] Valproic Acid (in house)on 1 Valproic Acid (in house) 59.0 ug/mL Normal 50.0-100.0 [facility] Comment on above: Result Comment: Last dose: - PERFORMED BY: [place] [address] PATHOLOGIST UTILITY SERVICE WORKER ANTONY ELIAS M.D. Performed By: #### C MP, T4F, TSH3, CBC, ETOH, JUAN, ACET, VALP #### [facility] [address] [place] [address] [facility] Yeast detection in urine sed iment by light microscopyOrdered By: Justin Francisco on 01-03-2022 Yeast LM Ql (Urine sed) None seen [HPF] None Se en [facility] pH Auto test strip (U)Ordere d By: Justin Francisco on 01-03-2022 pH (U) 5.5 [pH] 5.0-9.0 [facility] CBC AUTO DIFFon 10-27-2021 BASO # 0.1 103/ul Normal 0.0-0.1 [facility] Comment on above: Performed By: #### C BC ####[facility] [address] [place], [place] [address]Dr. Julio Goddard Basophils/100 WBC (Bld) 0.6 % Normal 0.2-2.0 [facility] Comment on above: Performed By: #### C BC ####[facility] [address] [place], [place] [address]Dr. Julio Goddard EO # 0.2 103/ul Normal 0.0-0.7 [facility] Comment on above: Performed By: #### C BC ####[facility] [address] [place], [place] [address]Dr. Julio Goddard Eosinophils/100 WBC (Bld) 2.4 % Normal 0.9-7.0 [facility] Comment on above: Performed By: #### C BC ####[facility] [address] [place], [place] [address]Dr. Julio Goddard Erythrocyte distribution width (RBC) [Ratio] 15.0 % Normal 11.0-15.0 [facility] Comment on above: Performed By: #### C BC ####[facility] [address] [place], [place] [address]Dr. Julio Goddard Hematocrit (Bld) [Volume fraction] 37.4 % Normal 36.0-48.0 [facility] Comment on above: Performed By: #### C BC ####[facility] [address] [place], [place] [address]Dr. Julio Goddard Hemoglobin (Bld) [Mass/Vol] 12.2 g/dL Normal 12.0-16.0 [facility] Comment on above: Performed By: #### C BC ####[facility] [address] [place] [address]Dr. Hiralharesh Ruepsh IG # 0.04 10e3/ul Critically high 0.00-0.03 [facility] Comment on above: Performed By: #### C BC ####[facility] [address] [place] [address]Dr. Julio Goddard IG % 0.4 % Normal 0.0-0.5 [facility] Comment on above: Performed By: #### C BC ####[facility] [address] [place] [address]Dr. Julio Goddard LYMPH # 2.3 103/ul Normal 1.2-3.8 [facility] Comment on above: Performed By: #### C BC ####[facility] [address] [place] [address]Dr. Julio Goddard Lymphocytes/100 WBC (Bld) 23.6 % Normal 20.5-60.0 [facility] Comment on above: Performed By: #### C BC ####[facility] [address] [place] [address]Dr. Julio Goddard MANUAL DIFF REQ NO Normal [facility] Comment on above: Performed By: #### C BC ####[facility] [address] [place] [address]Dr. Julio Goddard MCH (RBC) [Entitic mass] 29.3 pg Normal 26.7-34.0 [facility] Comment on above: Performed By: #### C BC ####[facility] [address] [place] [address]Dr. Julio Goddard MCHC (RBC) [Mass/Vol] 32.6 g/dL Normal 29.9-35.2 [facility] Comment on above: Performed By: #### C BC ####[facility] [address] [place] [address]Dr. Julio Goddard MCV (RBC) [Entitic vol] 89.7 fL Normal 81.0-99.0 [facility] Comment on above: Performed By: #### C BC ####[facility] [address] [place] [address]Dr. Julio Goddard MONO # 0.6 103/ul Normal 0.3-0.8 [facility] Comment on above: Performed By: #### C BC ####[facility] Hodjp[address] [place] [address]Dr. Julio Goddard Monocytes/100 WBC (Bld) 5.5 % Normal 1.7-12.0 [facility] Comment on above: Performed By: #### C BC ####[facility] Tr[address] [place] [address]Dr. Julio Goddard NEUT # 6.7 103/ul Critically high 1.4-6.5 [facility] Comment on above: Performed By: #### C BC ####[facility] [address] [place] [address]Dr. Julio Goddard Neutrophils/100 WBC (Bld) 67.5 % Normal 43.0-75.0 [facility] Comment on above: Performed By: #### C BC ####[facility] [address] [place] [address]Dr. Julio Goddard Platelet mean volume (Bld) [Entitic vol] 10.2 fL Normal 9.5-13.5 [facility] Comment on above: Performed By: #### C BC ####[facility] [address] [place] [address]Dr. Julio Goddard PLT 296 103/ul Normal 150-450 [facility] Comment on above: Performed By: #### C BC ####[facility] N[address] [place] [address]Dr. Julio Goddard RBC 4.17 106/ul Critically low 4.20-5.40 [facility] Comment on above: Performed By: #### C BC ####[facility] [address] [place] [address]Dr. Julio Goddard WBC 9.9 103/ul Normal 4.0-11.0 [facility] Comment on above: Performed By: #### C BC ####[facility] [address] [place], [place] [address]Wu. Julio Goddard LIPID PROFILEon 10-27-2021 CHOL-HDL RATIO NORM SEE BELOW Normal [facility] Comment on above: Result Comment: 3.3 - 4.4 LOW RISK 4.4 - 7.1 AVERAGE RISK 7.1 - 11.0 MODERATE RISK >11.0 HIGH RISK Performed By: #### C MP, LIPID ####[facility] [address] [place], [place] [address]Mo. Julio Goddard Cholesterol [Mass/Vol] 148 mg/dL Normal <=200 [facility] Comment on above: Performed By: #### C MP, LIPID ####[facility] [address] [place] [address]Dr. Julio Goddard Cholesterol in HDL [Mass/Vol] 60 mg/dL Normal 40-60 [facility] Comment on above: Performed By: #### C MP, LIPID ####[facility] [address] [place] [address]Dr. Julio Goddard Cholesterol in LDL [Mass/Vol] 72.2 mg/dL Normal [facility] Comment on above: Performed By: #### C MP, LIPID ####[facility] [address] [place], [place] [address]Gc. Julio Goddard Cholesterol.total/Tila sterol in HDL [Mass ratio] 2.5 {ratio} Normal [facility] Comment on above: Performed By: #### C MP, LIPID ####[facility] [address] [place] [address]Dr. Julio Goddard HDL NORMAL > or = 60 mg/dl - LO W CARDIOVASCULAR RISK <40 mg/dl - HIGH CARDIOVASCULAR RISK Normal [facility] Comment on above: Performed By: #### C MP, LIPID ####[facility] X[address]xxgr[address] [place] [address]Dr. Julio Goddard LDL CALC NORMAL SEE BELOW Normal [facility] Comment on above: Result Comment: <100 mg/dl OPTIMAL 100 - 129 mg/dl NEAR OR ABOVE OPTIMAL 130 - 159 mg/dl BORDERLINE HIGH 160 - 189 mg/dl HIGH >190 mg/dl VERY HIGH Performed By: #### C MP, LIPID ####[facility] [address] [place], [place] [address]KbDr. Julio Goddard Triglyceride [Mass/Vol] 79 mg/dL Normal <=150 T [facility] Comment on above: Performed By: #### C MP, LIPID ####[facility] [address] [place], [place] [address]VuDr. Julio Goddard VLDL CALC 15.8 mg/dL Normal [facility] Comment on above: Performed By: #### C MP, LIPID ####[facility] [address] [place], [place] [address]AaDr. Julio Goddard PROF 14(COMP METB)on 022 Albumin [Mass/Vol] 3.7 g/dL Normal 3.4-5.0 [facility] Comment on above: Performed By: #### C MP, LIPID #### [facility] [address] [place] [address] Dr. Julio Goddard Albumin/Globulin [Mass ratio] 1.0 {ratio} Normal [facility] Comment on above: Performed By: #### C MP, LIPID #### [facility] [address] [place] [address] Dr. Julio Goddard ALP [Catalytic activity/Vol] 53 U/L Normal 46-116 [facility] Comment on above: Performed By: #### C MP, LIPID #### [facility] [address] [address] [address] Julio Goddard ALT [Catalytic activity/Vol] 15 U/L Normal 14-59 [facility] Comment on above: Performed By: #### C MP, LIPID #### [facility] [address] [address] [address] Julio Goddard Anion gap [Moles/Vol] 16.1 mmol/L Normal [facility] Comment on above: Performed By: #### C MP, LIPID #### [facility] [address] [address] [address] Julio Goddard AST [Catalytic activity/Vol] 8 U/L Critically low 15-37 [facility] Comment on above: Performed By: #### C MP, LIPID #### [facility] [address] [address] [address] Julio Goddard Bilirubin [Mass/Vol] 0.5 mg/dL Normal 0.2-1.0 [facility] Comment on above: Performed By: #### C MP, LIPID #### [facility] [address] [address] [address] Julio Goddard Calcium [Mass/Vol] 9.1 mg/dL Normal 8.5-10.1 [facility] Comment on above: Performed By: #### C MP, LIPID #### [facility] [address] [address] [address] Julio Goddard Chloride [Moles/Vol] 106 mmol/L Normal 98-107 [facility] Comment on above: Performed By: #### C MP, LIPID #### [facility] [address] [address] [address] Julio Goddard CO2 [Moles/Vol] 24.1 mmol/L Normal 21.0-32.0 [facility] Comment on above: Performed By: #### C MP, LIPID #### [facility] [address] [address] [address] Julio Goddard Creatinine [Mass/Vol] 1.40 mg/dL Critically high 0.55-1.02 [facility] Comment on above: Performed By: #### C MP, LIPID #### [facility] [address] [address] [address] Julio Goddard EGFR-AF JAMAICAN 47 mL/min/1.73m2 Critically low >=60 [facility] Comment on above: Performed By: #### C MP, LIPID #### [facility] [address] [address] [address] Julio Goddard EGFR-NON AF JAMAICAN 39 mL/min/1.73m2 Critically low >=60 [facility] Comment on above: Performed By: #### C MP, LIPID #### [facility] [address] [address] [address] Julio Goddard Globulin (S) [Mass/Vol] 3.6 g/dL Normal T [facility] Comment on above: Performed By: #### C MP, LIPID #### [facility] [address] [place] [address] Dr. Julio Goddard Glucose [Mass/Vol] 95 mg/dL Normal 74-106 [facility] Comment on above: Performed By: #### C MP, LIPID #### [facility] [address] [place] [address] Dr. Julio Goddard Potassium [Moles/Vol] 4.2 mmol/L Normal 3.5-5.1 [facility] Comment on above: Performed By: #### C MP, LIPID #### [facility] [address] [place] [address] Dr. Julio Goddard Protein [Mass/Vol] 7.3 g/dL Normal 6.4-8.2 [facility] Comment on above: Performed By: #### C MP, LIPID #### [facility] [address] [place] [address] Dr. Julio Goddard Sodium [Moles/Vol] 142 mmol/L Normal 136-145 [facility] Comment on above: Performed By: #### C MP, LIPID #### [facility] [address] [place] [address] Dr. Julio Goddard Urea nitrogen [Mass/Vol] 18.0 mg/dL Normal 7.0-18.0 [facility] Comment on above: Performed By: #### C MP, LIPID #### [facility] [address] [place] [address] Dr. Julio Goddard Urea nitrogen/Creatinine [Mass ratio] 12.9 mg/mg Normal [facility] Comment on above: Performed By: #### C MP, LIPID #### [facility] [address] [place] [address] Dr. Julio Goddard INSULINon 03-23-2021 Insulin 10.0 uIU/mL Normal 2.6-24.9 [facility] Comment on above: Performed By: #### I NSULIN #### [facility] [address] [place] [address] Dr. Julio Goddard VIT D 25-OH LABCORPon 2020 Vitamin D, 25-Hydroxy 11.8 ng/mL Critically low 30.0-100.0 [facility] Comment on above: Result Comment: Swati min D deficiency has been defined by the Merom of Medicine and an Endocrine Society practice guideline as a level of serum 25-OH vitamin D less than 20 ng/mL (1,2). The Endocrine Society went on to further define vitamin D insufficiency as a level between 21 and 29 ng/mL (2). 1. IOM (Merom of Medicine). 2010. Dietary reference intakes for calcium and D. Gerardo [place]: The National Academies Press. 2. Matt MF, Wilma [place], Shiraz ELIZONDO, et al. Evaluation, treatment, and prevention of vitamin D deficiency: an Endocrine Society clinical practice guideline. JCEM. 2010; 96(7):1911-30. Performed By: #### V ITADLC ####[facility] [address] [place] [address]Dr. Julio Goddard CBC AUTO DIFFon 03-22-2021 BASO # 0.1 103/ul Normal 0.0-0.1 [facility] Comment on above: Performed By: #### C BC #### [facility] [address] [address] [address] Julio Goddard Basophils/100 WBC (Bld) 0.8 % Normal 0.2-2.0 [facility] Comment on above: Performed By: #### C BC #### [facility] [address] [address] [address] Julio Goddard EO # 0.2 103/ul Normal 0.0-0.7 [facility] Comment on above: Performed By: #### C BC #### [facility] [address] [address] [address] Julio Goddard Eosinophils/100 WBC (Bld) 2.6 % Normal 0.9-7.0 [facility] Comment on above: Performed By: #### C BC #### [facility] [address] [address] [address] Julio Goddard Erythrocyte distribution width (RBC) [Ratio] 14.2 % Normal 11.0-15.0 [facility] Comment on above: Performed By: #### C BC #### [facility] [address] [place] [address] Dr. Julio Goddard Hematocrit (Bld) [Volume fraction] 37.4 % Normal 36.0-48.0 [facility] Comment on above: Performed By: #### C BC #### [facility] [address] [place] [address] Dr. Julio Goddard Hemoglobin (Bld) [Mass/Vol] 11.9 g/dL Critically low 12.0-16.0 [facility] Comment on above: Performed By: #### C BC #### [facility] [address] [place] [address] Dr. Julio Goddard IG # 0.02 10e3/ul Normal 0.00-0.03 [facility] Comment on above: Performed By: #### C BC #### [facility] [address] [place] [address] Dr. Julio Goddard IG % 0.3 % Normal 0.0-0.5 [facility] Comment on above: Performed By: #### C BC #### [facility] [address] [place] [address] Dr. Julio Goddard LYMPH # 1.8 103/ul Normal 1.2-3.8 [facility] Comment on above: Performed By: #### C BC #### [facility] [address] [place] [address] Dr. Julio Goddard Lymphocytes/100 WBC (Bld) 27.6 % Normal 20.5-60.0 [facility] Comment on above: Performed By: #### C BC #### [facility] [address] [place] [address] Dr. Julio Goddard MANUAL DIFF REQ NO Normal [facility] Comment on above: Performed By: #### C BC #### [facility] [address] [place] [address] Dr. Julio Goddard MCH (RBC) [Entitic mass] 29.1 pg Normal 26.7-34.0 [facility] Comment on above: Performed By: #### C BC #### [facility] [address] [address] [address] Julio Goddard MCHC (RBC) [Mass/Vol] 31.8 g/dL Normal 29.9-35.2 [facility] Comment on above: Performed By: #### C BC #### [facility] [address] [address] [address] Julio Goddard MCV (RBC) [Entitic vol] 91.4 fL Normal 81.0-99.0 [facility] Comment on above: Performed By: #### C BC #### [facility] [address] [place] [address] Dr. Julio Goddard MONO # 0.6 103/ul Normal 0.3-0.8 [facility] Comment on above: Performed By: #### C BC #### [facility] [address] [place] [address] Dr. Julio Goddard Monocytes/100 WBC (Bld) 8.7 % Normal 1.7-12.0 [facility] Comment on above: Performed By: #### C BC #### [facility] [address] [place] [address] Dr. Julio Goddard NEUT # 3.9 103/ul Normal 1.4-6.5 [facility] Comment on above: Performed By: #### C BC #### [facility] [address] [place] [address] Dr. Julio Goddard Neutrophils/100 WBC (Bld) 60.0 % Normal 43.0-75.0 [facility] Comment on above: Performed By: #### C BC #### [facility] [address] [place] [address] Dr. Julio Goddard Platelet mean volume (Bld) [Entitic vol] 10.1 fL Normal 9.5-13.5 [facility] Comment on above: Performed By: #### C BC #### [facility] [address] [address] [address] Julio Goddard PLT 263 103/ul Normal 150-450 [facility] Comment on above: Performed By: #### C BC #### [facility] [address] [address] [address] Julio Goddard RBC 4.09 106/ul Critically low 4.20-5.40 [facility] Comment on above: Performed By: #### C BC #### [facility] [address] [address] [address] Julio Goddard WBC 6.5 103/ul Normal 4.0-11.0 [facility] Comment on above: Performed By: #### C BC #### [facility] [address] [address] [address] Julio Goddard FREE THYROXINE INDEX T7on FTI 3.50 Normal [facility] Comment on above: Performed By: #### C MP, T7, LIPID, TSH #### [facility] [address] [address] [address] Julio Goddard T3U 35.0 % Normal 23.5-40.5 [facility] Comment on above: Performed By: #### C MP, T7, LIPID, TSH #### [facility] [address] [address] [address] Julio Goddard T4 [Mass/Vol] 10.00 ug/dL Normal 5.53-11.00 [facility] Comment on above: Performed By: #### C MP, T7, LIPID, TSH #### [facility] [address] [address] [address] Julio Goddard GLYCOHEMOGLOBIN A1Con 2020 ADA RECOMMENDATION ADA THERAPEUTIC TARGET 6.0 - 7.0 ACTION SUGGESTED > 7.0 Normal [facility] Comment on above: Performed By: #### A 1C #### [facility] [address] [address] [address] Julio Goddard Glucose [Mass/Vol] 103 mg/dL Normal [facility] Comment on above: Performed By: #### A 1C #### [facility] [address] [address] [address] Julio Goddard HbA1c (Bld) [Mass fraction] 5.2 % Normal <=6.0 [facility] Comment on above: Performed By: #### A 1C #### [facility] [address] [address] [address] Julio Goddard IRONon 03-22-2021 Iron [Mass/Vol] 55.0 ug/dL Normal 37.0-170.0 [facility] Comment on above: Performed By: #### I MARIA E ####[facility] [address] [place], [place] [address]VzDr. Julio Goddard LIPID PROFILEon 03-22-2021 CHOL-HDL RATIO NORM SEE BELOW Normal [facility] Comment on above: Result Comment: 3.3 - 4.4 LOW RISK 4.4 - 7.1 AVERAGE RISK 7.1 - 11.0 MODERATE RISK >11.0 HIGH RISK Performed By: #### C MP, T7, LIPID, TSH #### [facility] [address] [address] [address] Julio Goddard Cholesterol [Mass/Vol] 163 mg/dL Normal <=200 [facility] Comment on above: Performed By: #### C MP, T7, LIPID, TSH #### [facility] [address] [address] [address] Julio Goddard Cholesterol in HDL [Mass/Vol] 65 mg/dL Normal [facility] Comment on above: Performed By: #### C MP, T7, LIPID, TSH #### [facility] [address] [address] [address] Julio Goddard Cholesterol in LDL [Mass/Vol] 80.8 mg/dL Normal [facility] Comment on above: Performed By: #### C MP, T7, LIPID, TSH #### [facility] [address] [address] [address] Julio Goddard Cholesterol.total/Tila sterol in HDL [Mass ratio] 2.5 {ratio} Normal [facility] Comment on above: Performed By: #### C MP, T7, LIPID, TSH #### [facility] [address] [address] [address] Julio Goddard HDL NORMAL > or = 60 mg/dl - LO W CARDIOVASCULAR RISK <40 mg/dl - HIGH CARDIOVASCULAR RISK Normal [facility] Comment on above: Performed By: #### C MP, T7, LIPID, TSH #### [facility] [address] [address] [address] Julio Goddard LDL CALC NORMAL SEE BELOW Normal [facility] Comment on above: Result Comment: <100 mg/dl OPTIMAL 100 - 129 mg/dl NEAR OR ABOVE OPTIMAL 130 - 159 mg/dl BORDERLINE HIGH 160 - 189 mg/dl HIGH >190 mg/dl VERY HIGH Performed By: #### C MP, T7, LIPID, TSH #### [facility] [address] [address] [address] Julio Goddard Triglyceride [Mass/Vol] 86 mg/dL Normal <=150 T [facility] Comment on above: Performed By: #### C MP, T7, LIPID, TSH #### [facility] [address] [address] [address] Julio Goddard VLDL CALC 17.2 mg/dL Normal [facility] Comment on above: Performed By: #### C MP, T7, LIPID, TSH #### [facility] [address] [address] [address] Julio Goddard PROF 14(COMP METB)on 021 Albumin [Mass/Vol] 3.5 g/dL Normal 3.5-5.0 [facility] Comment on above: Performed By: #### C MP, T7, LIPID, TSH #### [facility] [address] [address] [address] Julio Goddard Albumin/Globulin [Mass ratio] 1.0 {ratio} Normal [facility] Comment on above: Performed By: #### C MP, T7, LIPID, TSH #### [facility] [address] [address] [address] Julio Goddard ALP [Catalytic activity/Vol] 58 U/L Normal 38-126 [facility] Comment on above: Performed By: #### C MP, T7, LIPID, TSH #### [facility] [address] [address] [address] Julio Goddard ALT [Catalytic activity/Vol] 16 U/L Normal 9-52 [facility] Comment on above: Performed By: #### C MP, T7, LIPID, TSH #### [facility] [address] [address] [address] Julio Goddard Anion gap [Moles/Vol] 13.0 mmol/L Normal [facility] Comment on above: Performed By: #### C MP, T7, LIPID, TSH #### [facility] [address] [address] [address] Julio Goddard AST [Catalytic activity/Vol] 10 U/L Critically low 14-36 [facility] Comment on above: Performed By: #### C MP, T7, LIPID, TSH #### [facility] [address] [place] [address] Dr. Julio Goddard Bilirubin [Mass/Vol] 0.6 mg/dL Normal 0.2-1.3 [facility] Comment on above: Performed By: #### C MP, T7, LIPID, TSH #### [facility] [address] [place] [address] Dr. Julio Goddard Calcium [Mass/Vol] 9.4 mg/dL Normal 8.4-10.2 [facility] Comment on above: Performed By: #### C MP, T7, LIPID, TSH #### [facility] [address] [place] [address] Dr. Jluio Goddard Chloride [Moles/Vol] 105 mmol/L Normal 98-107 [facility] Comment on above: Performed By: #### C MP, T7, LIPID, TSH #### [facility] [address] [address] [address] Julio Goddard CO2 [Moles/Vol] 28.3 mmol/L Normal 22.0-30.0 [facility] Comment on above: Performed By: #### C MP, T7, LIPID, TSH #### [facility] [address] [place] [address] Dr. Julio Goddard Creatinine [Mass/Vol] 1.37 mg/dL Critically high 0.52-1.04 [facility] Comment on above: Performed By: #### C MP, T7, LIPID, TSH #### [facility] [address] [address] [address] Julio Goddard EGFR-AF JAMAICAN 48 mL/min/1.73m2 Critically low >=60 [facility] Comment on above: Performed By: #### C MP, T7, LIPID, TSH #### [facility] [address] [address] [address] Julio Goddard EGFR-NON AF JAMAICAN 40 mL/min/1.73m2 Critically low >=60 [facility] Comment on above: Performed By: #### C MP, T7, LIPID, TSH #### [facility] [address] [address] [address] Julio Goddard Globulin (S) [Mass/Vol] 3.5 g/dL [facility] Comment on above: Performed By: #### C MP, T7, LIPID, TSH #### [facility] [address] [place] [address] Dr. Julio Goddard Glucose [Mass/Vol] 110 mg/dL Critically high 74-106 [facility] Comment on above: Performed By: #### C MP, T7, LIPID, TSH #### [facility] [address] [address] [address] Julio Goddard Potassium [Moles/Vol] 4.3 mmol/L Normal 3.4-5.0 [facility] Comment on above: Performed By: #### C MP, T7, LIPID, TSH #### [facility] [address] [address] [address] Julio Goddard Protein [Mass/Vol] 7.0 g/dL Normal 6.1-8.2 [facility] Comment on above: Performed By: #### C MP, T7, LIPID, TSH #### [facility] [address] [address] [address] Julio Goddard Sodium [Moles/Vol] 142 mmol/L Normal 137-145 [facility] Comment on above: Performed By: #### C MP, T7, LIPID, TSH #### [facility] [address] [address] [address] Julio Goddard Urea nitrogen [Mass/Vol] 13.0 mg/dL Normal 7.0-17.0 [facility] Comment on above: Performed By: #### C MP, T7, LIPID, TSH #### [facility] [address] [address] [address] Julio Goddard Urea nitrogen/Creatinine [Mass ratio] 9.5 mg/mg Normal [facility] Comment on above: Performed By: #### C MP, T7, LIPID, TSH #### [facility] [address] [place], [place] [address] Dr. Julio Goddard TSHon 03-22-2021 TSH 2.734 uIU/mL Normal 0.470-4.680 [facility] Comment on above: Performed By: #### C MP, T7, LIPID, TSH #### [facility] [address] [place] [address] Dr. Julio Goddard TSH RANGE SEE BELOW Normal [facility] Comment on above: Result Comment: <0.3 4 UIU/ml HYPERTHYROID 0.34-5.60 UIU/ml EUTHYROID >5.60 UIU/ml HYPOTHYROID Performed By: #### C MP, T7, LIPID, TSH #### [facility] [address] [place], [place] [address] Dr. Julio Goddard Vital Signs Date Time Vital Sign Value Performing Clinician Facility 02-12-2024 08:50-0500 Body height 157.5 cm Angelo De La Cruz MD Work Phone: [facility] 02-12-2024 08:50-0500 Body mass index (BMI) [Ratio] 34.75 kg/m2 Angelo De La Cruz MD Work Phone: [facility] 02-12-2024 08:50-0500 Body weight 86.18 kg Angelo De La Cruz MD Work Phone: [facility] 02-12-2024 08:50-0500 Diastolic blood pressure 76 mm[Hg] Angelo De La Cruz MD Work Phone: [facility] 02-12-2024 08:50-0500 Systolic blood pressure 119 mm[Hg] Angelo De La Cruz MD Work Phone: [facility] 02-05-2024 10:32-0500 Body height 157.5 cm Angelo De La Cruz MD Work Phone: [facility] 02-05-2024 10:32-0500 Body mass index (BMI) [Ratio] 34.75 kg/m2 Angelo De La Cruz MD Work Phone: [facility] 02-05-2024 10:32-0500 Body weight 86.18 kg Angelo De La Cruz MD Work Phone: [facility] 02-05-2024 10:32-0500 Diastolic blood pressure 81 mm[Hg] Angelo De La Cruz MD Work Phone: [facility] 02-05-2024 10:32-0500 Systolic blood pressure 121 mm[Hg] Angelo De La Cruz MD Work Phone: [facility] 11-27-2023 14:51-0400 Blood Pressure Location OXANA DEVEN [facility] 11-27-2023 14:51-0400 Diastolic blood pressure 96 mm[Hg] OXANA DEVEN [facility] 11-27-2023 14:51-0400 Heart rate 66 /min OXANA DEVEN [facility] 11-27-2023 14:51-0400 Systolic blood pressure 144 mm[Hg] OXANA DEEVN [facility] 08-21-2023 09:39-0400 Blood Pressure Location OXANA DEVEN [facility] 08-21-2023 09:39-0400 Diastolic blood pressure 63 mm[Hg] OXANA DEVEN [facility] 08-21-2023 09:39-0400 Heart rate 74 /min OXANA DEVEN [facility] 08-21-2023 09:39-0400 Respiratory rate 19 /min OXANA CARVALHO [facility] 08-21-2023 09:39-0400 Systolic blood pressure 108 mm[Hg] OXANA CARVALHO [facility] 05-30-2022 13:47-0500 Body height 157.5 cm Scott Mcallister MD Work Phone: [facility] 05-30-2022 13:47-0500 Body mass index (BMI) [Ratio] 32.74 kg/m2 Scott Mcallister MD Work Phone: [facility] 05-30-2022 13:47-0500 Body weight 81.19 kg Scott Mcallister MD Work Phone: [facility] 05-30-2022 13:47-0500 Diastolic blood pressure 84 mm[Hg] Scott Mcallister MD Work Phone: [facility] 05-30-2022 13:47-0500 Heart rate 76 /min Scott Mcallister MD Work Phone: [facility] 05-30-2022 13:47-0500 Respiratory rate 16 /min Scott Mcallister MD Work Phone: [facility] 05-30-2022 13:47-0500 SaO2% (BldA) [Mass fraction] 97 % Scott Mcallister MD Work Phone: [facility] 05-30-2022 13:47-0500 Systolic blood pressure 129 mm[Hg] Scott Mcallister MD Work Phone: [facility] 02-28-2022 12:48-0500 Body height 157.5 cm Scott Mcallister MD Work Phone: [facility] 02-28-2022 12:48-0500 Body mass index (BMI) [Ratio] 32.74 kg/m2 Scott Mcallister MD Work Phone: [facility] 02-28-2022 12:48-0500 Body weight 81.19 kg Scott Mcallister MD Work Phone: [facility] 02-28-2022 12:48-0500 Diastolic blood pressure 83 mm[Hg] Scott Mcallister MD Work Phone: [facility] 02-28-2022 12:48-0500 Heart rate 78 /min Scott Mcallister MD Work Phone: [facility] 02-28-2022 12:48-0500 Respiratory rate 18 /min Scott Mcallister MD Work Phone: [facility] 02-28-2022 12:48-0500 SaO2% (BldA) [Mass fraction] 95 % Scott Mcallister MD Work Phone: [facility] 02-28-2022 12:48-0500 Systolic blood pressure 132 mm[Hg] Scott Mcallister MD Work Phone: [facility] 01-05-2022 11:19-0400 Diastolic blood pressure 79 mm[Hg] DO Justin Francisco Work Phone: [facility] [facility] 01-[facility]2022 11:19-0400 Heart rate 75 /min DO Justin Francisco Work Phone: [facility] 01-05-2022 11:19-0400 Respiratory rate 18 /min DO Justin Francisco Work Phone: [facility] 01-05-2022 11:19-0400 SaO2% (BldA) [Mass fraction] 97 % DO Justin Francisco Work Phone: [facility] 01-05-2022 11:19-0400 Systolic blood pressure 126 mm[Hg] DO Justin Francisco Work Phone: [facility] 01-05-2022 08:17-0400 Body temperature 97.5 [degF] DO Justinjosef Francisco Work Phone: [facility] 01-05-2022 04:44-0400 Body weight 79.8 kg DO Justin Nolan Work Phone: [facility] 01-04-2022 11:34-0400 Body height 157.48 cm DO Justinjosef Francisco Work Phone: [facility] 01-03-2022 17:04-0400 Diastolic blood pressure 110 mm[Hg] DO Justin Nolan Work Phone: [facility] 01-03-2022 17:04-0400 Heart rate 88 /min DO Justin Francisco Work Phone: [facility] 01-03-2022 17:04-0400 Respiratory rate 20 /min DO Justin Francisco Work Phone: [facility] 01-03-2022 17:04-0400 SaO2% (BldA) [Mass fraction] 97 % DO Justin Francisco Work Phone: [facility] 01-03-2022 17:04-0400 Systolic blood pressure 180 mm[Hg] DO Justin Francisco Work Phone: [facility] 01-03-2022 14:43-0400 Body height 157.48 cm DO Justin Francisco Work Phone: [facility] 01-03-2022 14:43-0400 Body weight 80 kg DO Justin Francisco Work Phone: [facility] 01-03-2022 13:59-0400 Body temperature 98.5 [degF] DO Justin Nolan Work Phone: [facility] 10-14-2021 13:13-0400 Body height 157.5 cm Scott Mcallister MD Work Phone: [facility] 10-14-2021 13:13-0400 Body mass index (BMI) [Ratio] 32.92 kg/m2 Scott Mcallister MD Work Phone: [facility] 10-14-2021 13:13-0400 Body weight 81.65 kg Scott Mcallister MD Work Phone: [facility] 10-14-2021 13:13-0400 Diastolic blood pressure 85 mm[Hg] Scott Mcallister MD Work Phone: [facility] 10-14-2021 13:13-0400 Heart rate 76 /min Scott Mcallister MD Work Phone: [facility] 10-14-2021 13:13-0400 Respiratory rate 16 /min Scott Mcallister MD Work Phone: [facility] 10-14-2021 13:13-0400 SaO2% (BldA) [Mass fraction] 95 % Scott Mcallister MD Work Phone: [facility] 10-14-2021 13:13-0400 Systolic blood pressure 125 mm[Hg] Scott Mcallister MD Work Phone: [facility] 07-19-2021 12:55-0400 Body height 157.5 cm Scott Mcallister MD Work Phone: [facility] 07-19-2021 12:55-0400 Body mass index (BMI) [Ratio] 32.92 kg/m2 Scott Mcallister MD Work Phone: [facility] 07-19-2021 12:55-0400 Body weight 81.65 kg Scott Mcallister MD Work Phone: [facility] 07-19-2021 12:55-0400 Diastolic blood pressure 86 mm[Hg] Scott Mcallister MD Work Phone: [facility] 07-19-2021 12:55-0400 Heart rate 67 /min Scott Mcallister MD Work Phone: [facility] 07-19-2021 12:55-0400 Respiratory rate 16 /min Scott Mcallister MD Work Phone: [facility] 07-19-2021 12:55-0400 SaO2% (BldA) [Mass fraction] 98 % Scott Mcallister MD Work Phone: [facility] 07-19-2021 12:55-0400 Systolic blood pressure 126 mm[Hg] Scott Mcallister MD Work Phone: [facility] 09-24-2020 13:12-0400 Body height 157.5 cm Scott Mcallister MD Work Phone: [facility] 09-24-2020 13:12-0400 Body mass index (BMI) [Ratio] 32.92 kg/m2 Scott Mcallister MD Work Phone: [facility] 09-24-2020 13:12-0400 Body weight 81.65 kg Scott Mcallister MD Work Phone: [facility] 09-24-2020 13:12-0400 Diastolic blood pressure 89 mm[Hg] Scott Mcallister MD Work Phone: [facility] 09-24-2020 13:12-0400 Heart rate 67 /min Scott Mcallister MD Work Phone: [facility] 09-24-2020 13:12-0400 Respiratory rate 16 /min Scott Mcallister MD Work Phone: [facility] 09-24-2020 13:12-0400 SaO2% (BldA) [Mass fraction] 95 % Scott Mcallister MD Work Phone: [facility] 09-24-2020 13:12-0400 Systolic blood pressure 146 mm[Hg] Scott Mcallister MD Work Phone: [facility] 07-27-2020 12:59-0400 Body height 165.1 cm Scott Mcallister MD Work Phone: [facility] 07-27-2020 12:59-0400 Body mass index (BMI) [Ratio] 22.63 kg/m2 Scott Mcallister MD Work Phone: [facility] 07-27-2020 12:59-0400 Body weight 61.69 kg Scott Mcallister MD Work Phone: [facility] 05-17-2020 13:110500 BP Diastolic 103 mm[Hg] [facility] 05-17-2020 13:0500 BP Systolic 163 mm[Hg] [facility] 05-17-2020 13:0500 Height 157.5 cm [facility] 05-17-2020 13:11-0500 Pulse (Heart Rate) 66 /min [facility] 05-17-2020 13:110500 Pulse Oximetry 96 % [facility] 05-17-2020 13:0500 Respiratory Rate 16 /min [facility] Encounters Encounter Date Encounter Type Care Provider [...] encounter procedure OXANA CARVALHO [facility] Start: 11-27-2023 End: 11-27-2023 Refill Scott Mcallister MD Work Phone: [facility] Start: 11-02-2023 End: 11-04-2023 ambulatory DESIRE C [facility] Start: 11-02-2023 End: 11-04-2023 ambulatory DESIRE C [facility] Start: 09-28-2023 End: 09-30-2023 ambulatory DESIRE C [facility] Start: 09-28-2023 End: 09-30-2023 Subsequent hospital visit by physician Peter Arnett MD Work Phone: [facility] Start: 08-21-2023 End: 08-21-2023 ambulatory Peter Arnett Facility:[facility] Start: 08-21-2023 End: 08-21-2023 Patient encounter procedure OXANA CARVALHO [facility] Start: 05-07-2023 ambulatory Peter Arnett Facility:[facility] Start: 05-30-2022 End: 05-30-2022 ambulatory SCOTT MCALLISTER [facility] Start: 05-30-2022 End: 05-30-2022 Office outpatient visit 15 minutes Scott Mcallister MD Work Phone: [facility] Comment on above: Bipolar 1 disorder, mixed, mild (HCC) (Primary Dx); Insomnia due to mental disorder; VICKIE (generalized anxiety disorder) Start: 05-10-2022 Refill Scott Mcallister MD Work Phone: [facility] Start: 03-30-2022 Refill Scott Mcallister MD Work Phone: [facility] Comment on above: 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; VICKIE (generalized anxiety disorder) Start: 02-28-2022 End: 02-28-2022 ambulatory UPENDER GEHLOT [facility] Start: 02-28-2022 End: 02-28-2022 Office outpatient visit 25 minutes Scott Mcallister MD Work Phone: [facility] Comment on above: Bipolar 1 disorder, depressed, mild (HCC) (Primary Dx); Insomnia due to mental disorder; VICKIE (generalized anxiety disorder) Start: 01-19-2022 End: 01-20-[address] PETER ARNETT Facility:[facility] Start: 01-09-2022 End: 01-09-2022 ambulatory UPENDER GEHLOT [facility] Start: 01-03-2022 End: 01-05-2022 ambulatory Peter Arnett Facility:[facility] Start: 01-03-2022 End: 01-05-2022 Evaluation and management of inpatient DO Justin Francisco Work Phone: [facility] Start: 01-03-2022 End: 01-05-2022 observation encounter DO Justin Francisco Work Phone: [facility] Work Phone: Start: 10-27-2021 End: 10-28-2021 ambulatory UPRANI MCALLISTER Facility:[facility] Start: 10-14-2021 End: 10-14-2021 ambulatory UPENDER GEHLOT [facility] Start: 10-14-2021 End: 10-14-2021 Office outpatient visit 15 minutes Scott Mcallister MD Work Phone: [facility] Comment on above: Bipolar 1 disorder, depressed, moderate (HCC) (Primary Dx); Insomnia due to mental disorder; VICKIE (generalized anxiety disorder) Start: 10-05-2021 ambulatory SCOTT MCALLISTER [facility] Amb[facility] Start: 07-22-2021 ambulatory PETER AMADOJosef [facility] Ambulatory Start: 07-19-2021 End: 07-19-2021 ambulatory PETER Josef [facility] Start: 07-19-2021 End: 07-19-2021 Office outpatient visit 15 minutes Scott Mcallister MD Work Phone: [facility] Comment on above: Bipolar 1 disorder, depressed, moderate (HCC) (Primary Dx); Insomnia due to mental disorder; VICKIE (generalized anxiety disorder) Start: 05-16-2021 Refill Sarah Leigh MA [facility] Comment on above: 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 (Primary Dx) 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 Start: 03-30-2021 Encounter for genera l adult medical examination without abnormal findings DR PETER ARNETT [facility] Start: 03-29-2021 Refill Nellie Sumner MA [facility] Start: 03-22-2021 End: 03-23-[address] PETER ARNETT Facility:[facility] Start: 03-22-2021 End: 03-23-2021 Encounter for general adult medical examination without abnormal findings DR PETER ARNETT Facility:[facility] Start: 12-07-2020 Refill Lidia hernandez RESIDENTIAL SERVICE TECHNICIAN [facility] Comment on above: 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; VICKIE (generalized anxiety disorder) Start: 09-24-2020 End: 09-24-2020 Office outpatient visit 25 minutes Scott Mcallister MD Work Phone: [facility] Comment on above: Bipolar 1 disorder, depressed, mild (HCC) (Primary Dx); Insomnia due to mental disorder; VICKIE (generalized anxiety disorder) Start: 08-31-2020 End: 08-31-2020 Refill Lidia Mahoney LPN [facility] Comment on above: 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; VICKIE (Generalized Anxiety Disorder) Start: 07-27-2020 End: 07-27-2020 Phys/qhp telephone evaluation 11-20 min Scott Mcallister MD Work Phone: [facility] Comment on above: Bipolar 1 disorder, depressed, mild (HCC) (Primary Dx); Insomnia due to mental disorder; VICKIE (Generalized Anxiety Disorder) Start: 05-17-2020 End: 05-17-2020 Office outpatient visit 15 minutes [email or web address] Work Phone: [facility] Comment on above: Bipolar 1 disorder, depressed, mild (HCC) (Primary Dx); VICKIE (Generalized Anxiety Disorder); Insomnia due to mental disorder Start: 04-06-2020 End: 04-06-2020 Phys/qhp telephone evaluation 11-20 min [employer] Work Phone: [facility] Comment on above: Bipolar 1 disorder, depressed, mild (HCC); VICKIE (Generalized Anxiety Disorder); Insomnia due to mental disorder Procedures Date Procedure Procedure Detail Performing Clinician Start: 02-12-2024 AUDITORY FUNCTION TESTS Lilibeth Pena [facility] Work Phone: Start: 01-03-2022 CT of head [...] EST Office Visit [facility] [address] [facility] [address] [place] [address] Angelo De La Cruz MD [address] [facility] [address] [place] [address] Arrived [facility] Comment on above: Arrived Start: 12-02-2023 Influenza vaccination Influenza Vacc ine (#1) [facility] Start: 11-01-2023 Influenza vaccination Flu vacc ine (Season Ended) [facility] Start: 05-19-2023 Screening for malign ant neoplasm of colon [facility] Start: 2022 Respiratory Syncytia l Virus (RSV) or age 60 yrs+ (1 - 1-dose 60+ series) Respiratory Syncytial Virus (RSV) or age 60 yrs+ (1 - 1-dose 60+ series) [facility] Start: 12-01-2022 COVID-19 Vaccine ( season) COVID-19 Vaccine ( season) [facility] Start: 05-30-2022 End: 05-30-2022 Patient encounter procedure 05/30/2022 Office Visit Psychiatry Scott Mcallister MD [address] [place] [id number] [facility] Start: 01-09-2022 End: 01-09-2022 Patient encounter procedure 01/09/2022 Office Visit Psychiatry Scott Mcallister MD [address] [address] [facility] Start: 01-05-2022 [facility] Start: 01-04-2022 Comprehensive metabo lic 2000 panel - Serum or Plasma [facility] Start: 01-04-2022 Lipid panel [facility] Start: 01-04-2022 Magnesium measurement [facility] Start: 01-04-2022 Phosphate [Mass/volu me] in Serum or Plasma [facility] Start: 01-04-2022 [facility] Start: 01-03-2022 Referral to psychiatrist [facility] Start: 01-03-2022 Hospital admission [facility] Start: 01-03-2022 [facility] Start: 12-01-2021 Influenza vaccination [facility] Start: 10-14-2021 End: 10-14-2021 Patient encounter procedure 10/14/2021 Office Visit Psychiatry Scott Mcallister MD [address] [facility] [address] [place] [phone] [facility] Start: 07-28-2021 COVID-19 Vaccine (4 - Booster for Pfizer series) COVID-19 Vaccine (4 - Booster for Pfizer series) [facility] Start: 07-15-2021 End: 07-15-2021 Patient encounter procedure 07/15/2021 Office Visit Psychiatry Scott Mcallister MD [address] [facility] [address] [place] [phone] [facility] Start: 05-24-2021 COVID-19 Vaccine (4 - Booster for Pfizer series) COVID-19 Vaccine (4 - Booster for Pfizer series) [facility] Start: 04-18-2021 End: 04-18-2021 Patient encounter procedure 04/18/2021 Office Visit Scott Moy MD [address] [facility] [address] [place] [phone] [facility] Start: 01-12-2021 COVID-19 Vaccine (3 - Booster for Pfizer series) COVID-19 Vaccine (3 - Booster for Pfizer series) [facility] Start: 01-03-2021 End: 01-03-2021 Patient encounter procedure [facility] Start: 12-01-2020 Influenza vaccination [facility] Start: 09-24-2020 End: 09-24-2020 Patient encounter procedure 09/24/2020 Office Visit Psychiatry Scott Mcallister MD [address] [facility] [address] [place] [phone] [facility] Start: 09-14-2020 End: 09-14-2020 Patient encounter procedure 09/14/2020 Office Visit Psychiatry Scott Mcallister MD [address] [place] [address] [phone] [facility] Start: 09-10-2020 End: 09-10-2020 Office Visit 09/10/2020 Office Visit Scott Moy MD [address] [place] [address] [phone] [facility] Start: 12-02-2019 Influenza vaccinatio n given Sequential Influenza Vaccine (#1) [facility] Start: 2012 Administration of he rpes zoster vaccine Zoster Vaccines (1 of 2) [facility] Start: 2012 Screening for malign ant neoplasm of colon [facility] Start: 2012 Shingles vaccine (1 of 2) Shingles vaccine (1 of 2) [facility] Start: 12-12-2007 Screening for malign ant neoplasm of colon [facility] Start: 2002 Lipid panel Lipids [facility] Start: 2002 Screening for malign ant neoplasm of breast [facility] Start: 1992 Screening for malign ant neoplasm of cervix [facility] Start: 12-12-1983 Screening for malign ant neoplasm of cervix Pap Smear [facility] Start: 1981 DTaP/Tdap/Td vaccine (1 - Tdap) DTaP/Tdap/Td vaccine (1 - Tdap) [facility] Start: 1980 Hepatitis C antibody , confirmatory test Hepatitis C Screening [facility] Start: 1980 Hepatitis C screening [facility] Start: 1978 COVID-19 Vaccine (1 of 2) COVID-19 Vaccine (1 of 2) [facility] Start: 1977 HIV screening [facility] Start: 1974 Depression Screen Depression Screen [facility] Start: 1965 History and physical examination, annual for health maintenance Wellness Visit [facility] Start: 1962 Screening for malign ant neoplasm of cervix Pap Smear [facility] Start: 1962 Screening for malign ant neoplasm of colon [facility] Start: 1962 Screening mammography Mammogram [facility] Start: 1962 Tetanus vaccination Tetanus: Every 1 0yrs [facility] Bacteria identified in Urine by Culture [facility] Work Phone: End: 10-14-2022 Complete blood count with white cell differential, manual CBC and Differential Lab Routine Bipolar 1 disorder, depressed, moderate (HCC) 1 Occurrences starting 10/14/2021 until 10/14/2022 [facility] Comment on above: 1 Occurrences starti ng 10/14/2021 until 10/14/2022 End: 10-14-2022 Comprehensive metabolic 2000 panel - Serum or Plasma Comprehensive Metabolic Panel Lab Routine Bipolar 1 disorder, depressed, moderate (HCC) 1 Occurrences starting 10/14/2021 until 10/14/2022 [facility] Work Phone: Comment on above: 1 Occurrences starti ng 10/14/2021 until 10/14/2022 End: 10-14-2022 Lipid 1996 panel - Serum or Plasma Lipid Panel Lab Routine Bipolar 1 disorder, depressed, moderate (HCC) 1 Occurrences starting 10/14/2021 until 10/14/2022 [facility] Comment on above: 1 Occurrences starti ng 10/14/2021 until 10/14/2022 Patient Education High Blood Pre ssure (DC) Urinary Tract Infection, Adult (DC) Acute Kidney Injury (DC) Cefuroxime Hydralazine [facility] Work Phone: Patient referral [facility] Work Phone: Immunizations Immunization Date Immunization Notes Care Provider Aly oglesby 01-05-2022 influenza, injectabl e, quadrivalent, preservative free DO Justin Francisco Work Phone: [facility] 01-05-2022 influenza virus vaccine, unspecified formulation Scott Mcallister MD Work Phone: [facility] 03-29-2021 COVID-19 mRNA, Comirnaty (Pfizer) DO Justin Francisco Work Phone: [facility] 07-13-2020 COVID-19 mRNA, Comirnaty (Pfizer) DO Justin Francisco Work Phone: [facility] 06-21-2020 COVID-19 mRNA, Comirnaty (Pfizer) DO Justin Francisco Work Phone: [facility] Payers Date Payer Category Payer Private Health Insurance [employer] [id number] 2022 Self-pay 2014 Unknown [id number] 2014 Unknown MMO [employer] S UPER[employer] PPO [id number] 2014-Present [phone] [address] [place] [address] [id number] 1962 Unknown [id number] 2.16.840.1.881870.3.579.2. 593 1962 Unknown [id number] 2.16.840.1.083214.3.579.2. 593 1962 Unknown [id number] 2.16.840.1.351381.3.579.2. 593 1962 Unknown [id number] 2.16.840.1.618002.3.579.2. 593 1962 Unknown [id number] 2.16.840.1.343845.3.579.2. 903 1962 Unknown [id number] 2.16.840.1.580843.3.579.2. 903 1962 Unknown [id number] 2.16.840.1.155145.3.579.2. 903 1962 Unknown [id number] 2.16.840.1.765773.3.579.2. 903 1962 Unknown [id number] 2.16.840.1.914390.3.579.2. 903 1962 Unknown [id number] 2.16.840.1.385685.3.579.2. 903 1962 Unknown [id number] 2.16.840.1.283298.3.579.2. 903 1962 Unknown [id number] 2.16.840.1.296132.3.579.2. 174 1962 Unknown [id number] 2.16.840.1.146595.3.579.2. 174 1962 Unknown [id number] 2.16.840.1.893136.3.579.2. 174 1962 Unknown [id number] 2.16.840.1.167860.3.579.2. 174 1962 Unknown [id number] 2.16.840.1.009689.3.579.2. 727 1962 Unknown [id number] 2.16.840.1.393016.3.579.2. 727 1962 Unknown [id number] 2.16.840.1.465568.3.579.2. 1259 1962 Unknown [id number] 2.16.840.1.822403.3.579.2. 1259 1962 Unknown [id number] 2.16.840.1.612765.3.579.2. 1259 1959 Unknown [id number] Unknown [id number] 2.16.840.1.142810.3.579.2. 531 Social History Date Type Detail Facility Start: 04-06-2020 End: 01-30-2024 Tobacco smoking status NHIS Former smoker [facility] Start: 04-06-2020 End: 01-30-2024 Tobacco use and exposure Never used [facility] Start: 04-06-2020 End: 02-12-2024 Alcohol intake Ex-drinker (finding) [facility] Start: 1960 Sex Assigned At Not on file [facility] Exposure to SARS-CoV-2 (event) Unable to assess [facility] Start: 07-09-2021 End: 05-24-2022 Exposure to SARS-CoV-2 (event) Not sure [facility] Start: 01-03-2022 Tobacco smoking status NHIS Never smoked tobacco (finding) [facility] Start: 1960 Sex Assigned At Female F [facility] End: 04-02-2000 History of tobacco use Current smoker [facility] Start: 05-30-2022 End: 02-12-2024 History of Social function [facility] Start: 05-30-2022 End: 02-12-2024 Tobacco use panel [facility] Tobacco smoking status Never [facility] End: 04-02-2000 History of tobacco use Cigarette Smoker [facility] Tobacco smoking status NHIS Tobacco smoking consumption unknown [facility] Goals Date Patient Goal Desired Activity /State Functional Status Date Assessment Result Facility 11-27-2023 Functional Status N/A [facility] 08-21-2023 Functional Status N/A [facility] 01-05-2022 Functional status Patient at [facility] Work Phone: Mental Status Date Assessment Result Facility 01-05-2022 Cognitive function Cognitive Sta tus Patient at Baseline [facility] Work Phone: Clinical Notes 07-27-2020 to [...] Type A tympanogram documented in this encounter [facility] 02-12-2024 History of Present illness Narrative Images [...] Date Noted Bipolar 1 disorder, depressed, mild ([facility]) 04/06/2020 VICKIE (generalized anxiety disorder) ([facility]) 04/06/2020 Insomnia due to mental disorder 04/06/2020 MDD (major depressive disorder) ([facility]) 01/18/2016 Severe episode of recurrent major depressive disorder, without psychotic features (HCC) ([facility]) 01/18/2016 Resolved Ambulatory Problems Diagnosis Date Noted [...] Recommend annual audio documented in this encounter [facility] 02-05-2024 History of Present illness Narrative Subjective [...] Date Noted Bipolar 1 disorder, depressed, mild ([facility]) 04/06/2020 VICKIE (generalized anxiety disorder) ([facility]) 04/06/2020 Insomnia due to mental disorder 04/06/2020 MDD (major depressive disorder) ([facility]) 01/18/2016 Severe episode of recurrent major depressive disorder, without psychotic features ([facility]) ([facility]) 01/18/2016 Resolved Ambulatory Problems Diagnosis Date Noted [...] week to remove documented in this encounter [facility] 11-27-2023 Hospital Discharge instructions Patient Education 11/27/2023 [...] nerve stimulation). ?For women, using a medical technologist to prevent urine leaks. This is a [...] right after experiencing incontinence. General instructions Take [id number]-[id number] and prescription medicines only as told by [...] important. Where to find more information National Merom of Diabetes and Digestive and Kidney Diseases: www.niddk.nih.gov [employer]: www.urologyhealth.org Contact a health care [...] provider. Document Revised: 10/22/2020 Document Reviewed: 10/22/2020 [employer] Patient Education 2022 [employer]. 11/27/2023 15:20:11 Overactive Bladder, Adult Overactive Bladder, [...] your health care provider. General instructions Take xiqq-ixz-fzgjpee and prescription medicines only as told by [...] provider. Document Revised: 12/06/2020 Document Reviewed: 12/06/2020 [employer] Patient Education 2022 [employer]. Follow Up Care 08/21/2023 10:37:58 With:OXANA CARVALHO PA-C, URL Address: [place] [address] When: Unknown Comments:1 year f/up [facility] 11-27-2023 Note Patient Education Obstetrics and Gynecology [...] health care provider. General instructions ? Take cywd-peg-qqhjvkt and prescription medicines only as told by [...] your health care (more content not included)... [facility] 08-21-2023 Note Chief Complaint New Pt. HPI [...] metformin. 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 1. Kidney stones (N20.0: Calculus of kidney) [facility] 05/04/23 [facility] - 7 mm nonobstructing L [...] Trospium ER 60mg qd. Rx sent to [facility] -Increase clear fluid intake -Avoid bladder irritants [...] Renal cyst (N28.1: Cyst of kidney, acquired) [facility] 05/04/23 [facility] - 1 cm benign-appearing R renal cyst and 1 cm benign-appearing L renal cyst. -Simple cysts do not require monitoring Follow-up With When Contact Information OXANA CARVALHO PA-C, URL [address] [place] [address] [phone] Additional Instructions: 3 mos (new med) Patient Education Urinary Incontinence Documentation recorded by the magalisibsusana Gunderson accurately reflects the (more content not included)... [facility] Comment on above: Result Comment: Elec tronically [...] nerve stimulation). ?For women, using a medical technologist to prevent urine leaks. This is a [...] right after experiencing incontinence. General instructions Take xqwx-qxa-zfrvpif and prescription medicines only as told by [...] important. Where to find more information National Merom of Diabetes and Digestive and Kidney Diseases: www.niddk.nih.gov [employer] [employer]: www.urologyhealth.org Contact a health care [...] provider. Document Revised: 10/22/2020 Document Reviewed: 10/22/2020 [employer] Patient Education 2022 [employer]. Follow Up Care 05/07/2023 11:41:01 With:OXANA CARVALHO PA-C, URL Address: [address] [place] [address] [phone] When: Unknown Comments:3 mos (new med) [facility] [place] [facility] 05-30-2022 History of Present illness Narrative BEHAVIORAL [...] Continue with same provider ( Rocky @ [facility] in [place]) Follow up as scheduled or return early if needed. School or community referral: None Treatment Goals and Objectives discussed. Other Referrals/Consults/Psychological Testing: None Scott Mcallister documented in this encounter [facility] 03-13-2022 History of Present illness Narrative [...] Continue with same provider ( Rocky @ [facility] in [place]) Follow up as scheduled or return early if needed. School or community referral: None Treatment Goals and Objectives discussed. Other Referrals/Consults/Psychological Testing: None Scott Mcallister documented in this encounter [facility] 01-05-2022 Discharge summary Note Date/Time January 05, 2022 12:08pm [facility] [address] [place] [address] Discharge Summary Signed Patient: Kathy Porter MR#: [id number] : 1960 Acct:[id number] Age/Sex: 61 / F Adm Date: 2 Loc: Room: [address] [place] [address]: Henry Burnett MD Copies to: [...] % (Auto) 50.3, Lymph % (Auto) 33.1, Dubois % (Auto) 12.5, Eos % (Auto) 3.5, Baso % (Auto) 0.6, Neut # (Auto) 2.6, Lymph # (Auto) 1.7, Dubois # (Auto) 0.7, Eos # (Auto) 0.2, [...] <Electronically signed by Henry Burnett MD> 01/05/22 0621 [facility] Work Phone: 1(430) 991-873210-05-2022 Progress note Author Henyr Burnett [facility] January 04, 2022 4:20pm Note Date/Time January 04, 2022 4: 20pm [facility] [address] [place] [address] Hospitalist Progress Note Signed Patient: Kathy Porter MR#: [id number] : 1960 Acct:[id number] Age/Sex: 61 / F Adm Date: 2 Loc: Room: [address] [place] [address] Type: ADM INOo Attending Dr: Henry Burnett [...] Flu Vac Quad (36month+)Pf 0.5 Ml Syringe [id number] IM 01/04/22 18:34 .ONCE ONE Irbesartan 300 [...] signed by Henry Burnett MD> 01/04/22 1620 [facility] Work Phone: [phone] 223-233710-05-2022 Consult note Author Graham Helm [facility] January 04, 2022 2:08pm Note Date/Time January 04, 2022 2: 04pm [facility] [address] [place] [address] Psychiatry Consult Note Signed Patient: Kathy Porter MR#: [id number] : 1960 Acct:[id number] Age/Sex: 61 / F Adm Date: 2 Loc: Room: [address] [place] [address] Type : ADM INOo Attending Dr: Henry [...] stated that she sees a psychiatrist in [place]. She reported that he is helping her [...] Appearance Clear Urine pH 5.5 Ur Specific Lagro 1.012 Urine Protein Negative Urine Glucose (UA) [...] Color Urine Appearance Urine pH Ur Specific Lagro Urine Protein Urine Glucose (UA) Urine Ketones Urine Occult Blood Urine Nitrite Ur Leukocyte Esterase Urine RBC Urine WBC Valproic Acid 59.0 01/04/22 10:13 RBC Hgb Hct MCV MCH MCHC RDW Plt Count MPV Sodium Potassium Chloride Carbon Dioxide Anion Gap BUN Creatinine Calcium Total Bilirubin AST ALT Alkaline Phosphatase Total Protein Albumin Urine Color Urine Appearance Urine pH Ur Specific Lagro Urine Protein Urine Glucose (UA) Urine Ketones [...] <Electronically signed by Graham Helm MD> 01/04/22 140 [facility] Work Phone: [phone] 715-161610-04-2022 History and physical note Author Henry Burnett [facility] January 03, 2022 6:58pm Note Date/Time January 03, 2022 4: 55pm [facility] [address] [place] [address] Hospitalist H&P Signed Patient: Kathy Porter MR#: [id number] : 1960 Acct:[id number] Age/Sex: 61 / F Adm Date: 2 Loc: Room: [address] [place] [address] Type: ADM INOo Attending Dr: Henry Burnett [...] 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 Decision was to admit the patient [...] % (Auto) 22.3 % (.) 01/03/22 14:35 Dubois % (Auto) 8.9 % (.) 01/03/22 14:35 Eos % (Auto) 1.4 % (.) 01/03/22 14:35 Baso % (Auto) 0.6 % (.) 01/03/22 14:35 Neut # (Auto) 4.3 x10E3/uL (1.8-7.7) 01/03/22 14:35 Lymph # (Auto) 1.4 x10E3/uL (1.00-4.8) 01/03/22 14:35 Dubois # (Auto) 0.6 x10E3/uL (0.0-0.8) 01/03/22 14:35 [...] pH 5.5 (5.0-9.0) 01/03/22 14:20 Ur Specific Lagro 1.012 (1.001-1.030) 01/03/22 14:20 Urine Protein Negative [...] <Electronically signed by Henry Burnett MD> 01/03/22 9539 [facility] Work Phone: 1(792) 732-803407-15-2022 History of Present illness Narrative* Scott Mcallister [...] orders. Psychotherapy: Continue with same provider ( Rcoky @ [facility] in [place]) Follow up as scheduled or return early if needed. School or community referral: None Treatment Goals and Objectives discussed. Other Referrals/Consults/Psychological Testing: None Scott Mcallister documented in this [id number] History of Present illness Narrative* Scott Mcallister [...] Continue with same provider ( Rocky @ [facility] in [place]) Follow up as scheduled or return early if needed. School or community referral: None Treatment Goals and Objectives discussed. Other Referrals/Consults/Psychological Testing: None Scott Mcallister documented in this [id number] Miscellaneous Notes* Telephone Encounter - Sarah Leigh MA - 05/16/2021 11:04 AM EST Pt is completely out and wants a 30 day supply sent to the local pharmacy. Another refill encounterto follow with a 90 day supply to go to [facility]. documented in this [id number] History of Present illness Narrative* Scott Mcallister [...] the patient Scott Mcallister documented in this [id number] History of Present illness Narrative* Scott Mcallister MD - 07/27/2020 2:43 PM EDT Telephone Visit Via Phone Call [facility] [phone] Telephone Visit [facility] 07/27/2020 Scott Mcallister MD Provider Location: [facility] Patient Location Quality Assurance Specialist: None Patient Location: Patient's Home Patient: Kathy [...] there are inherent diagnostic limitations compared to ehju-gl-ppbu evaluations. We elected toproceed with the telephone [...] and Plan of Care. [facility] Future Appointments Appointment Date:11/27/2023 03:00:00 PM Scheduled Provider:OXANA CARVALHO PA-C Location:[facility] Appointment Type:URO Office Visit [facility] [place] [facility] evaluation note* Diagnosis Bipolar 1 disorder, depressed, [...] Generalized anxiety disorder [facility] Diagnosis Insomnia due to mental disorder VICKIE (generalized anxiety disorder) Generalized anxiety disorder [facility] Diagnosis Insomnia due to mental disorder- Primary [facility] Diagnosis Insomnia due to mental disorder [facility] Diagnosis Bipolar 1 disorder, depressed, moderate (HCC)- Primary Insomnia due to mental disorder VICKIE (generalized anxiety disorder) Generalized anxiety disorder [facility] Diagnosis Bipolar 1 disorder, depressed, moderate (HCC)- Primary Insomnia due to mental disorder VICKIE (generalized anxiety disorder) Generalized anxiety disorder [facility] Diagnosis Onset Date Resolution Status Acute encephalopathy acute Altered mental status acute Coarse tremors acute [facility] Work Phone: Evaluation note* Diagnosis Onset Date Resolution Status Acute encephalopathy acute NAEEM (acute kidney injury) ac jessica Altered mental status acute Coarse tremors acute Hypertensive urgency acute UTI (urinary tract infection) acute [facility] Work Phone: Evaluation note* Diagnosis Bipolar [...] ear, initial encounter documented in [facility] encounter [facility]* Diagnosis Sensorineural hearing loss (SNHL) of both ears- Primary Ear pressure, right documented in this encounter [facility] Narrative No data available for this section [facility] [place] [facility] Discharge instructions Additional Instructions -Take Ceftin antibiotics treatment for UTI for 5 more days -Take new blood pressure medicine Hydralazine 25 mg three times a day. Hold if your BP <100/60 -Follow up with your primary doctor for blood pressure control and adjustment in medications if needed -[facility] Progress note No data available for this section [facility] [place] [facility] History of Present Illness * Scott Mcallister MD - 04/09/2020 2:42 PM EST Telephone Visit Via Phone Call [facility] Jovana PRABHAKAR [facility] [phone] Telephone Visit [facility] 04/06/2020 Scott Mcallister MD Provider Location: [place] Patient Location Quality Assurance Specialist: None Patient Location: Patient's Home Patient: Kathy Porter Date of : 1960 (59 y.o. female) PCP: ePter Arnett MD I discussed risks, benefits and [...] there are inherent diagnostic limitations compared to rgku-ja-xqhf evaluations. 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 Advance Directives and Living Will [...] Care Teams (unrecognized sec tion and content) Ad Compositor Relationship Specialty Start Date End Date Peter Arnett MD [address] [place] [address] PCP - General Family Medicine 04/05/20 Ad Compositor Relationship Specialty Start Date End Date Peter Arnett MD [address] [place] [address] PCP - General Family Medicine 04/05/20 Ad Compositor Relationship Specialty Start Date End Date Peter Arnett MD [address] [place] [address] PCP - General Family Medicine 04/05/20 Ad Compositor Relationship Specialty Start Date End Date Peter Arnett MD [address] [place] [address] PCP - General Family Medicine 04/05/20 Ad Compositor Relationship Specialty Start Date End Date Peter Arnett MD [address] [place] [address] PCP - General Family Medicine 04/05/20 Team [...] Active Graham Helm MD Other Provider Active Ad Compositor Relationship Specialty Start Date End Date Peter Arnett MD [address] [place] [address] PCP - General Family Medicine 04/05/20 Ad Compositor Relationship Specialty Start Date End Date Peter Arnett MD [address] [place] [address] PCP - General Family Medicine 04/05/20 Ad Compositor Relationship Specialty Start Date End Date Peter Arnett MD [address] [place] [address] PCP - General Family Medicine 04/05/20 Ad Compositor Relationship Specialty Start Date End Date Peter Arnett MD [address] [place] [address] PCP - General Family Medicine 04/05/20 Ad Compositor Relationship Specialty Start Date End Date Peter Arnett MD [address] [place] [address] PCP - General Family Medicine 04/05/20 Ad Compositor Relationship Specialty Start Date End Date Peter Arnett MD [facility] [place] [address] PCP - General Family Medicine 02/05/24 Valerie Moss MD [address] [place] [address] Referring Physician Family Medicine 01/29/24 Ad Compositor Relationship Specialty Start Date End Date Peter Arnett MD [address] [place] [address] PCP - General Family Medicine 02/05/24 Valerie Moss MD [address] [place] [address] Referring Physician Family Medicine 01/29/24 Ad Compositor Relationship Specialty Start Date End Date Peter Arnett MD [address] [place] [phone] PCP - General Family Medicine 02/05/24 Valerie Moss MD [facility] [place] [address] Referring Physician Family Medicine 01/29/24 Ad Compositor Relationship Specialty Start Date End Date Peter Arnett MD [address] [place] [address] PCP - General Family Medicine 02/05/24 Valerie Moss MD [address] [place] [address] Referring Physician Family Medicine 01/29/24 Ad Compositor Relationship Specialty Start Date End Date Peter Arnett MD [address] [place] [address] PCP - General Family Medicine 09/26/23 Goals (unrecognized section and content) Goals may be documented in a n alternate section No data available for this section No data available for this section INFORMATION SOURCE (unrecogn ized section and content) DATE CREATED AUTHOR 01/23/2022 [facility] DATE CREATED AUTHOR AUTHOR'S ORGANIZ ATION 05/06/2022 [facility] DATE CREATED AUTHOR AUTHOR'S ORGANIZ ATION 06/01/2022 [facility] DATE CREATED AUTHOR AUTHOR'S ORGANIZ ATION 11/06/2023 Emma montesinos DATE CREATED AUTHOR AUTHOR'S ORGANIZ ATION 11/29/2023 [facility] DATE CREATED AUTHOR AUTHOR'S ORGANIZ ATION 02/13/2024 [facility] EPIC FOR RECORDS PERTAINING TO PATIENTS [...] BE BASED ON THE PRIMARY CLINICAL RECORDS. [facility]. provides no warranty or guarantee of the accuracy or completeness of information in this document.
== END 2024-06-02 07:24 | disposition home or self-care (01) ==
LOC: US 07:23
PROVIDERS: PCP Family Medicine; Visit Provider Family Medicine
DX: N28.9 Disorder of kidney and ureter, unspecified (principal); N20.0 Calculus of kidney
CPT/HCPCS: 76770

== ENCOUNTER 2024-06-18 15:21 | Outpatient (OUT) | payer OTHER, SELFPAY ==
--- OUTSIDE RECORDS SUMMARY | 2024-06-18 15:37 | XMS_ITS | CCD ---
Author Organization [facility]iniSyme Care Team Providers Care Call Center Coordinator Name Role Phone Peter Arnett Primary Care Provider DO Justin Francisco Emergency Provider MD Peter Arnett Primary Care Provider [phone] MD Henry Burnett Admit Provider MD Henry Burnett Attending Provider MD Graham Helm Other Provider DR PETER ARNETT Admitting Unavailable DR PETER ARNETT Attending Unavailable DR PETER ARNETT Primary Care Unavailable DR PETER ARNETT Consulting Unavailable GEHLOT, UPENDER Admitting Unavailable GEHLOT, UPENDER Attending Unavailable DR EPTER ARNETT Primary Care Unavailable GEHLOT, UPENDER Consulting Unavailable GEHLOT, UPENDER Admitting Unavailable GEHLOT, UPENDER Attending Unavailable DR PETER ARNETT Primary Care Unavailable GEHLOT, UPENDER Consulting Unavailable DR PETER ARNETT Admitting Unavailable DR PETER ARNETT Attending Unavailable DR PETER ARNETT Primary Care Unavailable DR PETER ARNETT Consulting Unavailable EMMA, DR DANII Gottlieb Consulting Unavailable Peter Arnett MD Primary Care Provider [phone] Peter Arnett Primary Care Unavailable Henry Burnett [...] Unavailable PETER ARNETT M Primary Care Unavailable HENNY DEGROOT Referring Unavailable PETER ARNETT M Primary Care Unavailable DESIRE DEGROOT Referring Unavailable PETER ARNETT M Primary Care Unavailable DESIRE DEGROOT Referring Unavailable PETER ARNETT M Primary Care Unavailable Valerie Moss MD Unavailable Peter Arnett MD Primary Care Provider [phone] ANGELO DE LA CRUZ Attending Unavailable VALERIE MOSS Referring Unavailable ANGELO DE LA CRUZ Attending Unavailable LILIBETH PENA Attending Unavailable Peter Arnett MD Primary Care Provider [phone] Peter Arnett Referring Unavailable OXANA CARVALHO Attending Unavailable OXANA CARVALHO Attending Unavailable Terrie FALL Attending Unavailable Peter Arnett Referring Unavailable Allergies Allergy Classification Reported Allergen(s) Allergy Type Date of Onset Reaction(s) Facility Sulfonamides (antibiotic) (3 sources) Sulfonamides (Antibiotic) Drug Allergy 2 Rash, Swelling [facility] (17 sources) Sulfonamides (Antibiotic); Translations: [Sulfa (Sulfonamide Antibiotics)] Propensity to adverse reactions to drug 2 Rash, Swelling [facility] (1 source) Sulfonamides (Antibiotic) Drug allergy (disorder) 3 [facility] (3 sources) Sulfonamides (Antibiotic); Translations: [sulfa drugs] Drug allergy Cutaneous eruption (morphologic abnormality) [facility] (7 sources) Sulfonamides (Antibiotic) Drug Intolerance 2 Rash, Swelling [facility] Healthcare Work Phone: Medications Current Medications Medication [...] tablet 3 05/30/2022 Active Start: 02-28-2022 End: 03-10-2023 take 1 tablet by mouth once daily [...] Pharmacy: [facility], 158, cm, 08/27/24 15:03:00 EDT, Height/Length Dosing, 88, kg, 11/27/23 15:03:00 EDT, Weight Dosing Start Date: 11/27/23 Status: Ordered Start: 08-21-2023 take 1 capsule by [facility] once daily in the morning trospium 60 mg oral capsule, extended release 60 mg = 1 cap(s), Oral, qAM, # 30 cap(s), Refills(s) 11, Pharmacy: [facility]/pharmacy #[id number], 158, cm, 08/21/23 10:13:00 EDT, Height/Length Dosing, 88.5, kg, 08/21/23 10:13:00 EDT, Weight Dosing Start Date: 08/21/23 Status: Ordered take 3 tablets by [facility] once daily trospium (Sanctura) 20 MG [...] bedtime), # 45 tab(s), Refills(s) 1, Pharmacy: [facility], 158, cm, 12/15/19 14:46:00 EDT, [...] sensorineural hearing loss above 4K Hz [facility] Ambulatory Visit Summaryon 0 11-27-2023 Ambulatory Visit Summary Ambulatory Visit Summary KATHY PORTER :1960 Visit Date:11/27/2023 Ambulatory Visit Instructions Your [...] Comments: 1 year f/up Where: [address] [place] [address] Medications What How Much When Instructions Unchanged trospium (trospium 60 mg oral capsule, extended release) 1 Capsules By Mouth Once a day (in the morning) Pickup at [facility] Unchanged amlodipine (Norvasc 10 mg [...] physician if questions or concerns Pharmacy Information [facility]: [address] [place], [place] [id number] [phone] Allergies sulfa drugs (Rash) Problems Ongoing - [...] the ability (more content not included)... Normal [facility] Urology Office/Clinic Noteon 11-27-2023 Urology Office/Clinic Note [...] metformin. 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 1. [...] E&M of Est. Patient Moderate 30-39 Min 63317 2. Kidney stones (N20.0: Calculus of kidney) [...] E&M of Est. Patient Moderate 30-39 Min 25728 3. Renal cyst (N28.1: Cyst of kidney, acquired) RAMONA 05/04/23 [facility] - 1 cm benign-appearing R renal cyst and 1 cm benign-appearing L renal cyst. -Simple cysts do not require monitoring Ordered: E&M of Est. Patient Moderate 30-39 Min 78535 Orders: trospium, 60 mg = 1 cap(s), Oral, qAM, # 90 cap(s), Refills(s) 3, Pharmacy: [facility], 158, cm, 11/27/23 15:03:00 EDT, Height/Length Dosing, 88, kg, 11/27/23 15:03:00 EDT, Weight Dosing Follow-up With When Contact Information DEVEN GUTIERREZ, OXANA Schwartz, URL [address] [place] [address] Additional Instructions: 1 year f/up [...] Procedure/Surgical H (more content not included)... Normal [facility] Comment on above: Result Comment: Elec tronically [...] MD 11/02/23 Final result Normal [facility] XR KNEE RIGHT (1-2 VIEWS)on 09-28-2023 [...] MD 09/28/23 Final result Normal [facility] Physician Referralon 024 Physician Referral [id number]#1. 00TIFF Normal [facility] Screenson 08-22-2023 Screens [id number]# 1.00TIFF Normal [facility] Ambulatory Visit Summaryon 0 08-21-2023 Ambulatory Visit [...] GUTIERREZ, MARLENE BACON When: Comments: [facility] mos [facility] Where: [address] [place] [address] [id number] Medications What How Much When Instructions Unchanged [...] 2 tab(s (more content not included)... Normal [facility] Patient Educationon 08-21-19 Patient Education Urology Urinary [...] nerve stimulation). ? For women, using a lead medical technologist to prevent urine leaks. This [...] urine. ? (more content not included)... Normal [facility] Reminderson 08-21-2023 Reminders - From: Evy Gunderson To: KRISSY - Jesús Carvalho; Sent: 08/21/2023 10:39:44 EDT Show up: 06/20/2024 10:38:00 EDT Subject: KUB and RAMONA Reminder Message Pt needs RAMONA and KUB prior to appt in 1 year. Typically goes to [facility]. Normal [facility] XR LSPINE MIN 4 VIEWSon 01-01 XR [...] DANII CARTER Date: 2022-01-20 07:20 Normal [facility] DEPAKENE/VALPROICon 01-20-20 22 DEPAKENE 79.2 ug/ml Normal 50.0-100.0 [facility] Comment on above: Performed By: #### V ALP #### [facility] [address] [address] [address] Julio Goddard Albumin [Mass/volume] in Ser um or PlasmaOrdered By: Henry De Los Santosomar on 01-05-2022 Albumin [Mass/Vol] 3.0 g/dL 3.2-5.5 [facility] Basophils Auto (Bld) [#/Vol] Ordered By: Obsonjadanaga De Los Santosomar on 01-05-2022 Basophils (Bld) [#/Vol] 0.0 10*3/uL 0.0-0.2 [facility] Basophils/100 WBC Auto (Bld) Ordered By: Obsonjadanaga De Los Santosomar on 01-05-2022 Basophils/100 WBC (Bld) 0.6 % . [facility] Blood hemoglobin measurement (mass/volume)Ordered By: Obsonjadanaga De Los Santosomar on 01-05-2022 Hemoglobin (Bld) [Mass/Vol] 12.8 g/dL 11.8-15.4 [facility] Blood leukocytes automated c ount (number/volume)Ordered By: jeronimo Filibertoomar on 01-05-2022 WBC (Bld) [#/Vol] 5.3 10*3/uL 4.5-11.0 [facility] Complete Blood Count Auto Di ffon 01-05-2022 Basophils (Bld) [#/Vol] 0.0 10*3/uL Normal 0.0-0.2 [facility] Comment on above: Result Comment: PERF ORMED BY: [facility] [address] [place] [address] PATHOLOGIST PRODUCT MERCHANDISER ANTONY ELIAS M.D. Performed By: #### C BC, CMP, PHOS, MG, LIPID #### [facility] [address] Basophils/100 WBC (Bld) 0.6 % Normal . [facility] Comment on above: Performed By: #### C BC, CMP, PHOS, MG, LIPID #### [address] Eosinophils (Bld) [#/Vol] 0.2 10*3/uL Normal 0.0-0.45 [facility] Comment on above: Performed By: #### C BC, CMP, PHOS, MG, LIPID #### [address] Eosinophils/100 WBC (Bld) 3.5 % Normal . [facility] Comment on above: Performed By: #### C BC, CMP, PHOS, MG, LIPID #### [address] Erythrocyte distribution width (RBC) [Ratio] 16.2 % High 11.9-15.3 [facility] Comment on above: Performed By: #### C BC, CMP, PHOS, MG, LIPID #### [address] Hematocrit (Bld) [Volume fraction] 38.6 % Normal 34.0-46.4 [facility] Comment on above: Performed By: #### C BC, CMP, PHOS, MG, LIPID #### [address] Hemoglobin (Bld) [Mass/Vol] 12.8 g/dL Normal 11.8-15.4 [facility] Comment on above: Performed By: #### C BC, CMP, PHOS, MG, LIPID #### [address] Lymphocytes (Bld) [#/Vol] 1.7 10*3/uL Normal 1.00-4.8 [facility] Comment on above: Performed By: #### C BC, CMP, PHOS, MG, LIPID #### [address] Lymphocytes/100 WBC (Bld) 33.1 % Normal . [facility] Comment on above: Performed By: #### C BC, CMP, PHOS, MG, LIPID #### [address] MCH (RBC) [Entitic mass] 30.2 pg Normal 24.7-34.3 [facility] Comment on above: Performed By: #### C BC, CMP, PHOS, MG, LIPID #### [address] MCV (RBC) [Entitic vol] 90.6 fL Normal 80-100 [facility] Comment on above: Performed By: #### C BC, CMP, PHOS, MG, LIPID #### [address] Mean Corpuscular HGB Conc 33.3 g/dL Normal 32.0-35.0 [facility] Comment on above: Performed By: #### C BC, CMP, PHOS, MG, LIPID #### [address] Monocytes (Bld) [#/Vol] 0.7 10*3/uL Normal 0.0-0.8 [facility] Comment on above: Performed By: #### C BC, CMP, PHOS, MG, LIPID #### [address] Monocytes/100 WBC (Bld) 12.5 % Normal . [facility] Comment on above: Performed By: #### C BC, CMP, PHOS, MG, LIPID #### [address] Neutrophils (Bld) [#/Vol] 2.6 10*3/uL Normal 1.8-7.7 [facility] Comment on above: Performed By: #### C BC, CMP, PHOS, MG, LIPID #### [place] [address] [place] Neutrophils/100 WBC (Bld) 50.3 % Normal . [facility] Comment on above: Performed By: #### C BC, CMP, PHOS, MG, LIPID #### [address] Nucleated RBC/100 WBC (Bld) [Ratio] 0.1 % Normal 0-0.5 [facility] Comment on above: Performed By: #### C BC, CMP, PHOS, MG, LIPID #### [address] Platelet mean volume (Bld) [Entitic vol] 8.9 fL Normal 6.3-10.7 [facility] Comment on above: Performed By: #### C BC, CMP, PHOS, MG, LIPID #### [address] Platelets (Bld) [#/Vol] 186 10*3/uL Normal 150-450 [facility] Comment on above: Performed By: #### C BC, CMP, PHOS, MG, LIPID #### [address] RBC (Bld) [#/Vol] 4.25 10*6/uL Normal 3.60-5.00 [facility] Comment on above: Performed By: #### C BC, CMP, PHOS, MG, LIPID #### [address] WBC (Bld) [#/Vol] 5.3 10*3/uL Normal 4.5-11.0 [facility] Comment on above: Performed By: #### C BC, CMP, PHOS, MG, LIPID #### [address] Comprehensive Metabolic Pane clarice 01-05-2022 Albumin [Mass/Vol] 3.0 g/dL Low 3.2-5.5 [facility] Comment on above: Performed By: #### C BC, CMP, PHOS, MG, LIPID #### [address] Albumin/Globulin [Mass ratio] 1.2 {ratio} Normal [facility] Comment on above: Performed By: #### C BC, CMP, PHOS, MG, LIPID #### [address] ALP [Catalytic activity/Vol] 33 U/L Normal 32-92 [facility] Comment on above: Performed By: #### C BC, CMP, PHOS, MG, LIPID #### [facility] [address] [place] [address] ALT [Catalytic activity/Vol] 11 U/L Normal 10-60 [facility] Comment on above: Performed By: #### C BC, CMP, PHOS, MG, LIPID #### [address] Anion gap [Moles/Vol] 11.6 mmol/L Normal 6.0-15.0 [facility] Comment on above: Performed By: #### C BC, CMP, PHOS, MG, LIPID #### [address] AST [Catalytic activity/Vol] 13 U/L Normal 10-42 [facility] Comment on above: Performed By: #### C BC, CMP, PHOS, MG, LIPID #### [address] Bilirubin [Mass/Vol] 0.4 mg/dL Normal 0.3-1.2 [facility] Comment on above: Performed By: #### C BC, CMP, PHOS, MG, LIPID #### [address] Calcium [Mass/Vol] 9.1 mg/dL Normal 8.2-10.2 [facility] Comment on above: Performed By: #### C BC, CMP, PHOS, MG, LIPID #### [address] Chloride [Moles/Vol] 105 mmol/L Normal 95-114 [facility] Comment on above: Performed By: #### C BC, CMP, PHOS, MG, LIPID #### [address] CO2 [Moles/Vol] 25.2 mmol/L Normal 22.0-30.0 [facility] Comment on above: Performed By: #### C BC, CMP, PHOS, MG, LIPID #### [address] [place] [address] [place] Creatinine [Mass/Vol] 1.14 mg/dL High 0.44-1.03 [facility] Comment on above: Performed By: #### C BC, CMP, PHOS, MG, LIPID #### [facility] [address] Creatinine Clr Calc Pharmacy 51.99 [facility] Comment on above: Result Comment: PERF ORMED BY: [place] [address] PATHOLOGIST PRODUCT MERCHANDISER ANTONY ELIAS M.D. Performed By: #### C BC, CMP, PHOS, MG, LIPID #### [address] Estimated GFR ( [place] 59 [facility] Comment on above: Result Comment: GFR estimated reference range: According to KDOQI guidelines, <60 ml/min/1.73m2 is sufficient to diagnose a patient with chronic kidney disease. Performed By: #### C BC, CMP, PHOS, MG, LIPID #### [address] Estimated GFR (Non- Am 49 [facility] Comment on above: Performed By: #### C BC, CMP, PHOS, MG, LIPID #### [address] Globulin (S) [Mass/Vol] 2.5 g/dL Normal [facility] Comment on above: Performed By: #### C BC, CMP, PHOS, MG, LIPID #### [address] Glucose [Mass/Vol] 96 mg/dL Normal 70-100 [facility] Comment on above: Result Comment: [place] Glucose Reference Range is dependent on time and content of last meal. Glucose of more than 200 mg/dL in a nonstressed, ambulatory subject supports the diagnosis of Diabetes Mellitus. ADA recommended reference range Performed By: #### C BC, CMP, PHOS, MG, LIPID #### [facility] [address] Potassium [Moles/Vol] 3.8 mmol/L Normal 3.5-5.1 [facility] Comment on above: Performed By: #### C BC, CMP, PHOS, MG, LIPID #### [facility] [address] Protein [Mass/Vol] 5.5 g/dL Low 6.1-7.9 [facility] Comment on above: Performed By: #### C BC, CMP, PHOS, MG, LIPID #### [facility] [address] Sodium [Moles/Vol] 138 mmol/L Normal 136-146 [facility] Comment on above: Performed By: #### C BC, CMP, PHOS, MG, LIPID #### [facility] [address] [place] [address] [place] Urea nitrogen [Mass/Vol] 11 mg/dL Normal 9-23 [facility] Comment on above: Performed By: #### C BC, CMP, PHOS, MG, LIPID #### [facility] [address] [place] [address] [place] Creatinine and Glomerular fi ltration rate.predicted panel (S/P/Bld)Ordered By: Henry Burnett on 01-05-2022 Creatinine [Mass/Vol] 1.14 mg/dL 0.44-1.03 [facility] Eosinophils Auto (Bld) [#/Vo l]Ordered By: Obsonjadanaga De Los Santosomar on 01-05-2022 Eosinophils (Bld) [#/Vol] 0.2 10*3/uL 0.0-0.45 [facility] Eosinophils/100 WBC Auto (Bl d)Ordered By: Obsonjadanaga De Los Santosomar on 01-05-2022 Eosinophils/100 WBC (Bld) 3.5 % . [facility] Erythrocyte distribution wid th Auto (RBC) [Ratio]Ordered By: Henry Lemonr on 01-05-2022 Erythrocyte distribution width (RBC) [Ratio] 16.2 % 11.9-15.3 [facility] Estimated glomerular filtrat ion rate (GFR) non- AmericanOrdered By: Henry Burnett on 01-05-2022 GFR/1.73 sq M.predicted among non-blacks MDRD (S/P/Bld) [Vol rate/Area] 49 mL/Min [facility] Globulin Calc (S) [Mass/Vol] Ordered By: Henry Burnett on 01-05-2022 Globulin (S) [Mass/Vol] 2.5 g/dL [facility] Hematocrit Auto (Bld) [Volum e fraction]Ordered By: Henry Lemonr on 01-05-2022 Hematocrit (Bld) [Volume fraction] 38.6 % 34.0-46.4 [facility] Laboratory - Hematology and Cell countsOrdered By: Henry Burnett on 01-05-2022 Nucleated RBC/100 WBC (Bld) [Ratio] 0.1 % 0-0.5 [facility] Lymphocytes Auto (Bld) [#/Vo l]Ordered By: Henry Burnett on 01-05-2022 Lymphocytes (Bld) [#/Vol] 1.7 10*3/uL 1.00-4.8 [facility] Lymphocytes/100 WBC Auto (Bl d)Ordered By: Henry Lemonr on 01-05-2022 Lymphocytes/100 WBC (Bld) 33.1 % . [facility] MCH Auto (RBC) [Entitic mass ]Ordered By: Henry De Los Santosomar on 01-05-2022 MCH (RBC) [Entitic mass] 30.2 pg 24.7-34.3 [facility] MCHC Auto (RBC) [Mass/Vol]Or dered By: Henry De Los Santosomar on 01-05-2022 MCHC (RBC) [Mass/Vol] 33.3 g/dL 32.0-35.0 [facility] MCV Auto (RBC) [Entitic vol] Ordered By: Henry De Los Santosomar on 01-05-2022 MCV (RBC) [Entitic vol] 90.6 fL 80-100 [facility] Monocytes Auto (Bld) [#/Vol] Ordered By: Herny De Los Santosomar on 01-05-2022 Monocytes (Bld) [#/Vol] 0.7 10*3/uL 0.0-0.8 [facility] Monocytes/100 WBC Auto (Bld) Ordered By: Henry Lemonr on 01-05-2022 Monocytes/100 WBC (Bld) 12.5 % . [facility] Neutrophils Auto (Bld) [#/Vo l]Ordered By: Obdanny De Los Santosomar on 01-05-2022 Neutrophils (Bld) [#/Vol] 2.6 10*3/uL 1.8-7.7 [facility] Neutrophils/100 WBC Auto (Bl d)Ordered By: Obdanny De Los Santosomar on 01-05-2022 Neutrophils/100 WBC (Bld) 50.3 % . [facility] No Panel InformationOrdered By: Henry Burnett on 01-05-2022 Estimated GFR () 59 mL/Min [facility] Comment on above: GFR estimated refere nce range: According to KDOQI guidelines, <60 ml/min/1.73m2 is sufficient to diagnose a patient with chronic kidney disease. Pharmacy Creatinine Clearance (Chem 51.99 [facility] Platelet mean volume Auto (B ld) [Entitic vol]Ordered By: Henry De Los Santosomar on 01-05-2022 Platelet mean volume (Bld) [Entitic vol] 8.9 fL 6.3-10.7 [facility] Platelets Auto (Bld) [#/Vol] Ordered By: Henry De Los Santosomar on 01-05-2022 Platelets (Bld) [#/Vol] 186 10*3/uL 150-450 [facility] Protein [Mass/volume] in Ser um or PlasmaOrdered By: Obsonjadanaga De Los Santosomar on 01-05-2022 Protein [Mass/Vol] 5.5 g/dL 6.1-7.9 [facility] RBC Auto (Bld) [#/Vol]Ordere d By: Obaydah Filibertoomar on 01-05-2022 RBC (Bld) [#/Vol] 4.25 10*6/uL 3.60-5.00 [facility] Serum or plasma alanine ang[place] otransferase measurement without P-5'-P (enzymatic activiOrdered By: Henry Burnett on 01-05-2022 ALT No additional P-5'-P [Catalytic activity/Vol] 11 U/L 1060 [facility] Serum or plasma albumin/glob ulin mass ratioOrdered By: Henry Burnett on 01-05-2022 Albumin/Globulin [Mass ratio] 1.2 {ratio} [facility] Serum or plasma alkaline flaquita sphatase measurement (enzymatic activity/volume)Ordered By: Henry Burnett on 01-05-2022 ALP [Catalytic activity/Vol] 33 U/L 32-92 [facility] Serum or plasma anion gap de terminationOrdered By: Henry Burnett on 01-05-2022 Anion gap [Moles/Vol] 11.6 mmol/L 6.0-15.0 [facility] Serum or plasma aspartate am inotransferase measurement (enzymatic activity/volume)Ordered By: Henry Burnett on 01-05-2022 AST [Catalytic activity/Vol] 13 U/L 1042 [facility] Serum or plasma calcium sarah urement (mass/volume)Ordered By: Henry Burnett on 01-05-2022 Calcium [Mass/Vol] 9.1 mg/dL 8.2-10.2 [facility] Serum or plasma chloride deep surement (moles/volume)Ordered By: Henry Burnett on 01-05-2022 Chloride [Moles/Vol] 105 mmol/L 95-114 [facility] Serum or plasma glucose sarah urement (mass/volume)Ordered By: Henry Burnett on 01-05-2022 Glucose [Mass/Vol] 96 mg/dL 70-100 [facility] Comment on above: ADA recommended refe rence rangeRandom Glucose Reference Range is dependent on time and content of last meal. Glucose of more than 200 mg/dL in a nonstressed, ambulatory subject supports the diagnosis of Diabetes Mellitus. Serum or plasma potassium me asurement (moles/volume)Ordered By: Henry Burnett on 01-05-2022 Potassium [Moles/Vol] 3.8 mmol/L 3.5-5.1 [facility] Serum or plasma sodium measu rement (moles/volume)Ordered By: Henry Burnett on 01-05-2022 Sodium [Moles/Vol] 138 mmol/L 136-146 [facility] Serum or plasma total biliru bin measurement (mass/volume)Ordered By: Henry Burnett on 01-05-2022 Bilirubin [Mass/Vol] 0.4 mg/dL 0.3-1.2 [facility] Serum or plasma total carbon dioxide measurement (moles/volume)Ordered By: Henry Burnett on 01-05-2022 CO2 [Moles/Vol] 25.2 mmol/L 22.0-30.0 [facility] Serum or plasma urea nitroge n measurement (mass/volume)Ordered By: Henry Burnett on 01-05-2022 Urea nitrogen [Mass/Vol] 11 mg/dL 9-23 [facility] Urine culture routineOrdered By: Justin Francisco on 01-05-2022 Bacteria identified Cx Nom (U) Escherichia coli [facility] Cholesterol [Mass/volume] in Serum or PlasmaOrdered By: Henry Bunrett on 01-04-2022 Cholesterol [Mass/Vol] 145 mg/dL 140-200 [facility] Comment on above: Chol less than 200 m g/dl low riskChol 201-239 mg/dl borderline riskChol 240 mg/dl and greater high risk Cholesterol in LDL Calc [Mas s/Vol]Ordered By: Henry Burnett on 01-04-2022 Cholesterol in LDL [Mass/Vol] 78 mg/dL 0-100 [facility] Comment on above: LDL ATP III CLASSIFI CATIONLDL less than 100 mg/dL OptimalLDL 100-129 mg/dL Near or above optimalLDL 130-159 mg/dL Borderline highLDL 160-189 mg/dL HighLDL greater than 189 mg/dL Very high Cholesterol in VLDL Calc [Ma ss/Vol]Ordered By: Henry Burnett on 01-04-2022 Cholesterol in VLDL [Mass/Vol] 12 mg/dL [facility] Complete Blood Count Auto Di ffon 01-04-2022 Basophils (Bld) [#/Vol] 0.0 10*3/uL Normal 0.0-0.2 [facility] Comment on above: Result Comment: PERF ORMED BY: [place] [address] PATHOLOGIST PRODUCT MERCHANDISER ANTONY ELIAS M.D. Performed By: #### C BC, CMP, PHOS, MG, LIPID #### [address] Basophils/100 WBC (Bld) 0.8 % Normal . [facility] Comment on above: Performed By: #### C BC, CMP, PHOS, MG, LIPID #### [address] Eosinophils (Bld) [#/Vol] 0.2 10*3/uL Normal 0.0-0.45 [facility] Comment on above: Performed By: #### C BC, CMP, PHOS, MG, LIPID #### [address] Eosinophils/100 WBC (Bld) 4.2 % Normal . [facility] Comment on above: Performed By: #### C BC, CMP, PHOS, MG, LIPID #### [address] Erythrocyte distribution width (RBC) [Ratio] 15.8 % High 11.9-15.3 [facility] Comment on above: Performed By: #### C BC, CMP, PHOS, MG, LIPID #### [address] Hematocrit (Bld) [Volume fraction] 37.5 % Normal 34.0-46.4 [facility] Comment on above: Performed By: #### C BC, CMP, PHOS, MG, LIPID #### [address] Hemoglobin (Bld) [Mass/Vol] 12.3 g/dL Normal 11.8-15.4 [facility] Comment on above: Performed By: #### C BC, CMP, PHOS, MG, LIPID #### [address] Lymphocytes (Bld) [#/Vol] 1.6 10*3/uL Normal 1.00-4.8 [facility] Comment on above: Performed By: #### C BC, CMP, PHOS, MG, LIPID #### [address] Lymphocytes/100 WBC (Bld) 31.2 % Normal . [facility] Comment on above: Performed By: #### C BC, CMP, PHOS, MG, LIPID #### [address] MCH (RBC) [Entitic mass] 29.7 pg Normal 24.7-34.3 [facility] Comment on above: Performed By: #### C BC, CMP, PHOS, MG, LIPID #### [address] MCV (RBC) [Entitic vol] 90.5 fL Normal 80-100 [facility] Comment on above: Performed By: #### C BC, CMP, PHOS, MG, LIPID #### [address] Mean Corpuscular HGB Conc 32.8 g/dL Normal 32.0-35.0 [facility] Comment on above: Performed By: #### C BC, CMP, PHOS, MG, LIPID #### [address] Monocytes (Bld) [#/Vol] 0.7 10*3/uL Normal 0.0-0.8 [facility] Comment on above: Performed By: #### C BC, CMP, PHOS, MG, LIPID #### [address] Monocytes/100 WBC (Bld) 13.1 % Normal . [facility] Comment on above: Performed By: #### C BC, CMP, PHOS, MG, LIPID #### [address] [address] [place] Neutrophils (Bld) [#/Vol] 2.6 10*3/uL Normal 1.8-7.7 [facility] Comment on above: Performed By: #### C BC, CMP, PHOS, MG, LIPID #### [facility] [address] [place] [address] Neutrophils/100 WBC (Bld) 50.7 % Normal . [facility] Comment on above: Performed By: #### C BC, CMP, PHOS, MG, LIPID #### [facility] [address] [place] [address] Nucleated RBC/100 WBC (Bld) [Ratio] 0.1 % Normal 0-0.5 [facility] Comment on above: Performed By: #### C BC, CMP, PHOS, MG, LIPID #### [address] Platelet mean volume (Bld) [Entitic vol] 8.5 fL Normal 6.3-10.7 [facility] Comment on above: Performed By: #### C BC, CMP, PHOS, MG, LIPID #### [facility] [address] [place] [address] [place] Platelets (Bld) [#/Vol] 190 10*3/uL Normal 150-450 [facility] Comment on above: Performed By: #### C BC, CMP, PHOS, MG, LIPID #### [facility] [address] [place] [address] [place] RBC (Bld) [#/Vol] 4.15 10*6/uL Normal 3.60-5.00 [facility] Comment on above: Performed By: #### C BC, CMP, PHOS, MG, LIPID #### [facility] [address] [place] [address] [place] WBC (Bld) [#/Vol] 5.1 10*3/uL Normal 4.5-11.0 [facility] Comment on above: Performed By: #### C BC, CMP, PHOS, MG, LIPID #### [place] [address] [place] Comprehensive Metabolic Pane clarice 01-04-2022 Albumin [Mass/Vol] 3.0 g/dL Low 3.2-5.5 [facility] Comment on above: Performed By: #### C BC, CMP, PHOS, MG, LIPID #### [facility] [address] Albumin/Globulin [Mass ratio] 1.2 {ratio} Normal [facility] Comment on above: Performed By: #### C BC, CMP, PHOS, MG, LIPID #### [facility] [address] ALP [Catalytic activity/Vol] 32 U/L Normal 32-92 [facility] Comment on above: Performed By: #### C BC, CMP, PHOS, MG, LIPID #### [facility] [address] ALT [Catalytic activity/Vol] 12 U/L Normal 10-60 [facility] Comment on above: Performed By: #### C BC, CMP, PHOS, MG, LIPID #### [facility] [address] Anion gap [Moles/Vol] 10.6 mmol/L Normal 6.0-15.0 [facility] Comment on above: Performed By: #### C BC, CMP, PHOS, MG, LIPID #### [facility] [address] AST [Catalytic activity/Vol] 15 U/L Normal 10-42 [facility] Comment on above: Performed By: #### C BC, CMP, PHOS, MG, LIPID #### [facility] [address] [place] [address] [place] Bilirubin [Mass/Vol] 0.3 mg/dL Normal 0.3-1.2 [facility] Comment on above: Performed By: #### C BC, CMP, PHOS, MG, LIPID #### [facility] [address] Calcium [Mass/Vol] 9.0 mg/dL Normal 8.2-10.2 [facility] Comment on above: Performed By: #### C BC, CMP, PHOS, MG, LIPID #### [facility] [address] [place] [address] Chloride [Moles/Vol] 103 mmol/L Normal 95-114 [facility] Comment on above: Performed By: #### C BC, CMP, PHOS, MG, LIPID #### [facility] [address] [place] [address] CO2 [Moles/Vol] 27.6 mmol/L Normal 22.0-30.0 [facility] Comment on above: Performed By: #### C BC, CMP, PHOS, MG, LIPID #### [address] Creatinine [Mass/Vol] 1.21 mg/dL High 0.44-1.03 [facility] Comment on above: Performed By: #### C BC, CMP, PHOS, MG, LIPID #### [address] Creatinine Clr Calc Pharmacy 49.01 [facility] Comment on above: Performed By: #### C BC, CMP, PHOS, MG, LIPID #### [address] Estimated GFR ( [place] 55 [facility] Comment on above: Result Comment: GFR estimated reference range: According to KDOQI guidelines, <60 ml/min/1.73m2 is sufficient to diagnose a patient with chronic kidney disease. Performed By: #### C BC, CMP, PHOS, MG, LIPID #### [address] Estimated GFR (Non- Am 46 [facility] Comment on above: Performed By: #### C BC, CMP, PHOS, MG, LIPID #### [address] Globulin (S) [Mass/Vol] 2.6 g/dL Normal [facility] Comment on above: Performed By: #### C BC, CMP, PHOS, MG, LIPID #### [facility] [address] Glucose [Mass/Vol] 151 mg/dL High 70-100 [facility] Comment on above: Result Comment: [facility] Glucose Reference Range is dependent on time and content of last meal. Glucose of more than 200 mg/dL in a nonstressed, ambulatory subject supports the diagnosis of Diabetes Mellitus. ADA recommended reference range Performed By: #### C BC, CMP, PHOS, MG, LIPID #### [facility] [address] Potassium [Moles/Vol] 3.2 mmol/L Low 3.5-5.1 [facility] Comment on above: Performed By: #### C BC, CMP, PHOS, MG, LIPID #### [facility] [address] Protein [Mass/Vol] 5.6 g/dL Low 6.1-7.9 [facility] Comment on above: Performed By: #### C BC, CMP, PHOS, MG, LIPID #### [facility] [address] Sodium [Moles/Vol] 138 mmol/L Normal 136-146 [facility] Comment on above: Performed By: #### C BC, CMP, PHOS, MG, LIPID #### [facility] [address] Urea nitrogen [Mass/Vol] 11 mg/dL Normal 9-23 [facility] Comment on above: Performed By: #### C BC, CMP, PHOS, MG, LIPID #### [facility] [address] Laboratory - Chemistry and C hemistry - challengeOrdered By: Henry Burnett on 01-04-2022 Magnesium [Mass/Vol] 1.6 mg/dL 1.6-2.6 [facility] Lipid Panelon 01-04-2022 Cholesterol [Mass/Vol] 145 mg/dL Normal 140-200 [facility] Comment on above: Result Comment: Chol less than 200 mg/dl low risk Chol 201-239 mg/dl borderline risk Chol 240 mg/dl and greater high risk Performed By: #### C BC, CMP, PHOS, MG, LIPID #### [facility] [address] Cholesterol in HDL [Mass/Vol] 55 mg/dL Normal 35-85 [facility] Comment on above: Result Comment: HDL CHOL ATP-III CLASSIFICATION Cardiovascular Risk HDL > or equal to 60 mg/dL LOW HDL < 40 mg/dL HIGH Performed By: #### C BC, CMP, PHOS, MG, LIPID #### [facility] [address] Cholesterol.total/Tila sterol in HDL [Mass ratio] 2.6 {ratio} Normal <5.0 [facility] Comment on above: Result Comment: PERF ORMED BY: [place] [address] PATHOLOGIST [employer] ANTONY ELIAS M.D. Performed By: #### C BC, CMP, PHOS, MG, LIPID #### [facility] [address] LDL Cholesterol,Calculated 78 mg/dL Normal 0-100 [facility] Comment on above: Result Comment: LDL ATP III CLASSIFICATION LDL less than 100 mg/dL Optimal LDL 100-129 mg/dL Near or above optimal LDL 130-159 mg/dL Borderline high LDL 160-189 mg/dL High LDL greater than 189 mg/dL Very high Performed By: #### C BC, CMP, PHOS, MG, LIPID #### [facility] [address] Triglyceride w/Reflex 60 mg/dL Normal 35-149 [facility] Comment on above: Result Comment: TRIG ATP III CLASSIFICATION TRIG less than 150 mg/dL Normal TRIG 150-199 mg/dL Borderline high TRIG 200-500 mg/dL High TRIG greater than 500 mg/dL Very high Standard traceable to the Center for Disease Conrtrol and Prevention (CDC) test method. Performed By: #### C BC, CMP, PHOS, MG, LIPID #### [facility] [address] VLDL CHOLESTEROL 12 mg/dL Normal [facility] Comment on above: Performed By: #### C BC, CMP, PHOS, MG, LIPID #### [facility] [address] Magnesiumon 01-04-2022 Magnesium [Mass/Vol] 1.6 mg/dL Normal 1.6-2.6 [facility] Comment on above: Performed By: #### C BC, CMP, PHOS, MG, LIPID #### [facility] [address] No Panel InformationOrdered By: Graham Helm on 01-04-2022 Valproic Acid (Depakene) Level 28.2 ug/mL 50.0-100.0 [facility] Comment on above: Last dose: - Phosphate [Mass/volume] in S yeyo or PlasmaOrdered By: Henry De Los Santosomar on 01-04-2022 Phosphate [Mass/Vol] 3.5 mg/dL 2.5-4.6 [facility] Phosphoruson 01-04-2022 Phosphate [Mass/Vol] 3.5 mg/dL Normal 2.5-4.6 [facility] Comment on above: Performed By: #### C BC, CMP, PHOS, MG, LIPID #### [facility] [address] [place] [address] Serum or plasma high density lipoprotein (HDL) cholesterol measurementOrdered By: Henry Burnett on 01-04-2022 Cholesterol in HDL [Mass/Vol] 55 mg/dL 35-85 [facility] Comment on above: HDL CHOL ATP-III CLA SSIFICATION Cardiovascular RiskHDL > or equal to 60 mg/dL LOWHDL < 40 mg/dL HIGH Serum or plasma total choles terol/high density lipoprotein (HDL) cholesterol mass ratOrdered By: Henry De Los Santosomar on 01-04-2022 Cholesterol.total/Tila sterol in HDL [Mass ratio] 2.6 {ratio} <5.0 [facility] Triglyceride [Mass/volume] i n Serum or PlasmaOrdered By: Henry Lemonr on 01-04-2022 Triglyceride [Mass/Vol] 60 mg/dL 35-149 [facility] Comment on above: TRIG ATP III CLASSIF ICATIONTRIG less than 150 mg/dL NormalTRIG 150-199 mg/dL Borderline highTRIG 200-500 mg/dL High TRIG greater than 500 mg/dL Very highStandard traceable to the Center for Disease Conrtrol and Prevention (CDC) test method. Valproic Acid (in house)on 1 Valproic Acid (in house) 28.2 ug/mL Low 50.0-100.0 [facility] Comment on above: Result Comment: Last dose: - PERFORMED BY: [place] [address] PATHOLOGIST [employer] ANTONY ELIAS M.D. Performed By: #### C BC, CMP, PHOS, MG, LIPID #### [facility] [address] Acetaminophenon 01-03-2022 Acetaminophen [Mass/Vol] 25.3 ug/mL Normal 10.0-30.0 [facility] Comment on above: Performed By: #### C MP, T4F, TSH3, CBC, ETOH, JUAN, ACET, VALP #### [facility] [address] Albumin [Mass/volume] in Ser um or PlasmaOrdered By: Justin Francisco on 01-03-2022 Albumin [Mass/Vol] 3.6 g/dL 3.2-5.5 [facility] Amphetamine Screen Ql (U)Ord ered By: Justin Francisco on 01-03-2022 Amphetamines Ql (U) Negative Negative [facility] Automated erythrocytes count in urine sediment (number/area)Ordered By: Justin Francisco on 01-03-2022 RBC Auto (Urine sed) [#/Area] None seen [HPF] 0-4 [facility] Automated leukocytes count i n urine sediment (number/area)Ordered By: Justin Francisco on 01-03-2022 WBC Auto (Urine sed) [#/Area] 5-9 [HPF] 0-4 [facility] Barbiturates [Presence] in U rineOrdered By: Justin Francisco on 01-03-2022 Barbiturates Ql (U) Negative Negative [facility] Basophils Auto (Bld) [#/Vol] Ordered By: Justin Francisco on 01-03-2022 Basophils (Bld) [#/Vol] 0.0 10*3/uL 0.0-0.2 [facility] Basophils/100 WBC Auto (Bld) Ordered By: Justin Francisco on 01-03-2022 Basophils/100 WBC (Bld) 0.6 % . [facility] Benzodiazepines [Presence] i n UrineOrdered By: Justin Francisco on 01-03-2022 Benzodiazepines Ql (U) Negative Negative [facility] Bilirubin Test strip Ql (U)O rdered By: Justin Francisco on 01-03-2022 Bilirubin Ql (U) Negative Negative [facility] Blood hemoglobin measurement (mass/volume)Ordered By: Justin Francisco on 01-03-2022 Hemoglobin (Bld) [Mass/Vol] 13.4 g/dL 11.8-15.4 [facility] Blood leukocytes automated c ount (number/volume)Ordered By: Justin Francisco on 01-03-2022 WBC (Bld) [#/Vol] 6.4 10*3/uL 4.5-11.0 [facility] COVID-19 Antigenon 2 COVID-19 Antigen Healthcare Worker?: [...] developed and its performance characteristic determined by [employer] and validated at [facility]. This test has not been FDA [...] for SARS Antigen by MAR[employer] PERFORMED BY: [place] [address] PATHOLOGIST [employer]ODUCT [employer] ANTONY ELIAS M.D. Normal [facility] Comment on above: Performed By: #### C BC, CMP, PHOS, MG, LIPID #### [address] COVID-19 [facility] 01-03-2022 SARS-CoV-2 (COVID-19) RNA ARMINDA+probe Ql (Unsp spec) Negative Normal Negative [facility] Comment on above: Order Comment: Healt hcare Worker?: N Result Comment: Testing for SARS-CoV-2 by RT-PCR This test was developed and its performance characteristics determined by [employer] and validated at the [facility]. This test has not been FDA [...] is terminated or revoked sooner. PERFORMED BY: [facility] [address] [place] [address] PATHOLOGIST [employer]ODUCT [employer] ANTONY ELIAS M.D. Performed By: #### C BC, CMP, PHOS, MG, LIPID #### [facility] [address] COVID-19 Positive/NegativeOr dered By: Justin Francisco on 01-03-2022 SARS-CoV-2 (COVID-19) N gene ARMINDA+probe Ql (Resp) Negative Negative [facility] Comment on above: Testing for SARS-CoV -2 by RT-PCRThis test was developed and its performance characteristics determined by [employer] and validated at the [facility]. This test has not been FDA [...] (COVID-19) Ag IA.rapid Ql (Resp) Negative Negative [facility] Comment on above: This is a duplicate Delores SARS Antigen ([employer]) result to be used for statistical tracking purpose only. CT head/brain wo conon 01-03 CT head/brain wo con [facility] [address] [place] [address] [place] [address] CT Scan Report Signed Patient: Kathy Porter MR#: [id number] : 1960 Acct:[id number] Age/Sex: 61 / F ADM Date: 01/03/22 Loc: ER Room: Type: [facility] ER Attending Dr: Copies to: Justin [...] Rajinder Cardona M.D.01/03/2022 3:21 PM Dictation Location: [place] [address] Transcribed By: [facility] 01/03/22 1521 Dictated By: Rajinder Cardona II, MD 01/03/22 1518 Signed By: 01/03/22 1521 Normal [facility] Cannabinoids [Presence] in U rine by Screen methodOrdered By: Justin Francisco on 01-03-2022 Cannabinoids Screen Ql (U) Negative Negative [facility] Comment on above: These are unconfirme d results and should not be used for legal purposes. Drug Cut-Off Concentration: AMPH 1000 ng/mL TERRY 200 ng/mL HONG 200 ng/mL COCM 300 ng/mL OP 300 ng/mL PCP 25 ng/mL THC 20 ng/mL Color Auto (U)Ordered By: Aman Francisco on 01-03-2022 Color (U) Yellow Yellow [facility] Complete Blood Count Auto Di ffon 01-03-2022 Basophils (Bld) [#/Vol] 0.0 10*3/uL Normal 0.0-0.2 [facility] Comment on above: Result Comment: PERF ORMED BY: [place] [address] PATHOLOGIST [employer] ANTONY ELIAS M.D. Performed By: #### C MP, T4F, TSH3, CBC, ETOH, JUAN, ACET, VALP #### [address] Basophils/100 WBC (Bld) 0.6 % Normal . [facility] Comment on above: Performed By: #### C MP, T4F, TSH3, CBC, ETOH, JUAN, ACET, VALP #### [address] Eosinophils (Bld) [#/Vol] 0.1 10*3/uL Normal 0.0-0.45 [facility] Comment on above: Performed By: #### C MP, T4F, TSH3, CBC, ETOH, JUAN, ACET, VALP #### [address] Eosinophils/100 WBC (Bld) 1.4 % Normal . [facility] Comment on above: Performed By: #### C MP, T4F, TSH3, CBC, ETOH, JUAN, ACET, VALP #### [address] Erythrocyte distribution width (RBC) [Ratio] 15.7 % High 11.9-15.3 [facility] Comment on above: Performed By: #### C MP, T4F, TSH3, CBC, ETOH, JUAN, ACET, VALP #### [place] [address] [place] Hematocrit (Bld) [Volume fraction] 41.0 % Normal 34.0-46.4 [facility] Comment on above: Performed By: #### C MP, T4F, TSH3, CBC, ETOH, JUAN, ACET, VALP #### [facility] [address] Hemoglobin (Bld) [Mass/Vol] 13.4 g/dL Normal 11.8-15.4 [facility] Comment on above: Performed By: #### C MP, T4F, TSH3, CBC, ETOH, JUAN, ACET, VALP #### [facility] [address] Lymphocytes (Bld) [#/Vol] 1.4 10*3/uL Normal 1.00-4.8 [facility] Comment on above: Performed By: #### C MP, T4F, TSH3, CBC, ETOH, JUAN, ACET, VALP #### [address] Lymphocytes/100 WBC (Bld) 22.3 % Normal . [facility] Comment on above: Performed By: #### C MP, T4F, TSH3, CBC, ETOH, JUAN, ACET, VALP #### [address] MCH (RBC) [Entitic mass] 29.7 pg Normal 24.7-34.3 [facility] Comment on above: Performed By: #### C MP, T4F, TSH3, CBC, ETOH, JUAN, ACET, VALP #### [address] MCV (RBC) [Entitic vol] 91.0 fL Normal 80-100 [facility] Comment on above: Performed By: #### C MP, T4F, TSH3, CBC, ETOH, JUAN, ACET, VALP #### [address] Mean Corpuscular HGB Conc 32.6 g/dL Normal 32.0-35.0 [facility] Comment on above: Performed By: #### C MP, T4F, TSH3, CBC, ETOH, JUAN, ACET, VALP #### [address] Monocytes (Bld) [#/Vol] 0.6 10*3/uL Normal 0.0-0.8 [facility] Comment on above: Performed By: #### C MP, T4F, TSH3, CBC, ETOH, JUAN, ACET, VALP #### [address] Monocytes/100 WBC (Bld) 8.9 % Normal . [facility] Comment on above: Performed By: #### C MP, T4F, TSH3, CBC, ETOH, JUAN, ACET, VALP #### [address] Neutrophils (Bld) [#/Vol] 4.3 10*3/uL Normal 1.8-7.7 [facility] Comment on above: Performed By: #### C MP, T4F, TSH3, CBC, ETOH, JUAN, ACET, VALP #### [address] Neutrophils/100 WBC (Bld) 66.8 % Normal . [facility] Comment on above: Performed By: #### C MP, T4F, TSH3, CBC, ETOH, JUAN, ACET, VALP #### [address] Nucleated RBC/100 WBC (Bld) [Ratio] 0.1 % Normal 0-0.5 [facility] Comment on above: Performed By: #### C MP, T4F, TSH3, CBC, ETOH, JUAN, ACET, VALP #### [place] [address] [place] Platelet mean volume (Bld) [Entitic vol] 8.8 fL Normal 6.3-10.7 [facility] Comment on above: Performed By: #### C MP, T4F, TSH3, CBC, ETOH, JUAN, ACET, VALP #### [place] [id number] [place] Platelets (Bld) [#/Vol] 236 10*3/uL Normal 150-450 [facility] Comment on above: Performed By: #### C MP, T4F, TSH3, CBC, ETOH, JUAN, ACET, VALP #### [address] RBC (Bld) [#/Vol] 4.50 10*6/uL Normal 3.60-5.00 [facility] Comment on above: Performed By: #### C MP, T4F, TSH3, CBC, ETOH, JUAN, ACET, VALP #### [address] WBC (Bld) [#/Vol] 6.4 10*3/uL Normal 4.5-11.0 [facility] Comment on above: Performed By: #### C MP, T4F, TSH3, CBC, ETOH, JUAN, ACET, VALP #### [address] Comprehensive Metabolic Pane clarice 01-03-2022 Albumin [Mass/Vol] 3.6 g/dL Normal 3.2-5.5 [facility] Comment on above: Performed By: #### C BC, CMP, PHOS, MG, LIPID #### [address] Albumin/Globulin [Mass ratio] 1.2 {ratio} Normal [facility] Comment on above: Performed By: #### C BC, CMP, PHOS, MG, LIPID #### [address] ALP [Catalytic activity/Vol] 40 U/L Normal 32-92 [facility] Comment on above: Performed By: #### C BC, CMP, PHOS, MG, LIPID #### [address] ALT [Catalytic activity/Vol] 14 U/L Normal 10-60 [facility] Comment on above: Performed By: #### C BC, CMP, PHOS, MG, LIPID #### [facility] [address] Anion gap [Moles/Vol] 16.7 mmol/L High 6.0-15.0 [facility] Comment on above: Performed By: #### C BC, CMP, PHOS, MG, LIPID #### [facility] [address] AST [Catalytic activity/Vol] 18 U/L Normal 10-42 [facility] Comment on above: Performed By: #### C BC, CMP, PHOS, MG, LIPID #### [facility] [address] Bilirubin [Mass/Vol] 0.6 mg/dL Normal 0.3-1.2 [facility] Comment on above: Performed By: #### C BC, CMP, PHOS, MG, LIPID #### [facility] [address] Calcium [Mass/Vol] 9.5 mg/dL Normal 8.2-10.2 [facility] Comment on above: Performed By: #### C BC, CMP, PHOS, MG, LIPID #### [facility] [address] Chloride [Moles/Vol] 99 mmol/L Normal 95-114 [facility] Comment on above: Performed By: #### C BC, CMP, PHOS, MG, LIPID #### [facility] [address] CO2 [Moles/Vol] 23.6 mmol/L Normal 22.0-30.0 [facility] Comment on above: Performed By: #### C BC, CMP, PHOS, MG, LIPID #### [facility] [address] [place] [address] [place] Creatinine [Mass/Vol] 1.38 mg/dL High 0.44-1.03 [facility] Comment on above: Performed By: #### C BC, CMP, PHOS, MG, LIPID #### [facility] [address] [place] [address] [place] Creatinine Clr Calc Pharmacy 43.00 Normal [facility] Comment on above: Performed By: #### C BC, CMP, PHOS, MG, LIPID #### [facility] [address] Estimated GFR ( [place] 47 [facility] Comment on above: Result Comment: GFR estimated reference range: According to KDOQI guidelines, <60 ml/min/1.73m2 is sufficient to diagnose a patient with chronic kidney disease. Performed By: #### C BC, CMP, PHOS, MG, LIPID #### [facility] [address] Estimated GFR (Non- Am 39 [facility] Comment on above: Performed By: #### C BC, CMP, PHOS, MG, LIPID #### [address] Globulin (S) [Mass/Vol] 3.1 g/dL Normal [facility] Comment on above: Performed By: #### C BC, CMP, PHOS, MG, LIPID #### [address] Glucose [Mass/Vol] 137 mg/dL High 70-100 [facility] Comment on above: Result Comment: [facility] Glucose Reference Range is dependent on time and content of last meal. Glucose of more than 200 mg/dL in a nonstressed, ambulatory subject supports the diagnosis of Diabetes Mellitus. ADA recommended reference range Performed By: #### C BC, CMP, PHOS, MG, LIPID #### [address] Potassium [Moles/Vol] 4.3 mmol/L Normal 3.5-5.1 [facility] Comment on above: Performed By: #### C BC, CMP, PHOS, MG, LIPID #### [address] Protein [Mass/Vol] 6.7 g/dL Normal 6.1-7.9 [facility] Comment on above: Performed By: #### C BC, CMP, PHOS, MG, LIPID #### [address] [place] [address] [place] Sodium [Moles/Vol] 135 mmol/L Low 136-146 [facility] Comment on above: Performed By: #### C BC, CMP, PHOS, MG, LIPID #### [facility] [address] Urea nitrogen [Mass/Vol] 14 mg/dL Normal 9-23 [facility] Comment on above: Performed By: #### C BC, CMP, PHOS, MG, LIPID #### [facility] [address] Creatinine and Glomerular fi ltration rate.predicted panel (S/P/Bld)Ordered By: Justin Francisco on 01-03-2022 Creatinine [Mass/Vol] 1.38 mg/dL 0.44-1.03 [facility] Dipstick and Microscopicon 1 Appearance (U) Clear Normal Clear [facility] Comment on above: Order Comment: Name Collection Type:: Clean-Voided Midstream Performed By: #### C BC, CMP, PHOS, MG, LIPID #### [facility] [address] Bacteria,Urine 2+ High None Seen [facility] Comment on above: Order Comment: Name Collection Type:: Clean-Voided Midstream Performed By: #### C BC, CMP, PHOS, MG, LIPID #### [facility] [address] [place] [address] [place] Bilirubin,Urine Negative Normal Negative [facility] Comment on above: Order Comment: Name Collection Type:: Clean-Voided Midstream Performed By: #### C BC, CMP, PHOS, MG, LIPID #### [facility] [address] [place] [address] [place] Color (U) Yellow Normal Yellow [facility] Comment on above: Order Comment: Name Collection Type:: Clean-Voided Midstream Performed By: #### C BC, CMP, PHOS, MG, LIPID #### [facility] [address] [place] [address] [place] Glucose Ql (U) Normal Normal Normal [facility] Comment on above: Order Comment: Name Collection Type:: Clean-Voided Midstream Performed By: #### C BC, CMP, PHOS, MG, LIPID #### [facility] [address] [place] [address] [place] Hyaline Casts,Urine 0-8 Normal 0-8 [facility] Comment on above: Order Comment: Name Collection Type:: Clean-Voided Midstream Performed By: #### C BC, CMP, PHOS, MG, LIPID #### [facility] [address] [place] [address] Ketones Ql (U) Negative Normal Negative [facility] Comment on above: Order Comment: Name Collection Type:: Clean-Voided Midstream Performed By: #### C BC, CMP, PHOS, MG, LIPID #### [address] Leukocyte esterase Test strip Ql (U) 2+ High Negative [facility] Comment on above: Order Comment: Name Collection Type:: Clean-Voided Midstream Performed By: #### C BC, CMP, PHOS, MG, LIPID #### [facility] [address] [place] [address] [place] Nitrite,Urine Negative Normal Negative [facility] Comment on above: Order Comment: Name Collection Type:: Clean-Voided Midstream Performed By: #### C BC, CMP, PHOS, MG, LIPID #### [facility] [address] [place] [address] [place] Occult Blood,Urine Negative Normal Negative [facility] Comment on above: Order Comment: Name Collection Type:: Clean-Voided Midstream Result Comment: PERF ORMED BY: [place] [address] PATHOLOGIST PRODUCT MERCHANDISER ANTONY ELIAS M.D. Performed By: #### C BC, CMP, PHOS, MG, LIPID #### [facility] [address] [place] [address] [place] pH (U) 5.5 [pH] Normal 5.0-9.0 [facility] Comment on above: Order Comment: Name Collection Type:: Clean-Voided Midstream Performed By: #### C BC, CMP, PHOS, MG, LIPID #### [address] Protein,Urine Negative Normal Negative [facility] Comment on above: Order Comment: Name Collection Type:: Clean-Voided Midstream Performed By: #### C BC, CMP, PHOS, MG, LIPID #### [address] RBC,Urine None Seen Normal 0-4 [facility] Comment on above: Order Comment: Name Collection Type:: Clean-Voided Midstream Performed By: #### C BC, CMP, PHOS, MG, LIPID #### [address] Specificy [place],Urine 1.012 Normal 1.001-1.030 [facility] Comment on above: Order Comment: Name Collection Type:: Clean-Voided Midstream Performed By: #### C BC, CMP, PHOS, MG, LIPID #### [address] Squamous Epithelial Cell,Urine 3-4 High 0-2 [facility] Comment on above: Order Comment: Name Collection Type:: Clean-Voided Midstream Performed By: #### C BC, CMP, PHOS, MG, LIPID #### [address] Urobilinogen,Urine Normal Normal Normal [facility] Comment on above: Order Comment: Name Collection Type:: Clean-Voided Midstream Performed By: #### C BC, CMP, PHOS, MG, LIPID #### [place] [address] [place] WBC,Urine 5-9 High 0-4 [facility] Comment on above: Order Comment: Name Collection Type:: Clean-Voided Midstream Performed By: #### C BC, CMP, PHOS, MG, LIPID #### [address] Yeast,Urine None Seen Normal None Seen [facility] Comment on above: Order Comment: Name Collection Type:: Clean-Voided Midstream Result Comment: PERF ORMED BY: [place] [address] PATHOLOGIST PRODUCT MERCHANDISER ANTONY ELIAS M.D. Performed By: #### C BC, CMP, PHOS, MG, LIPID #### [place] [address] [place] Drug Screen,Urineon 01-04-20 Amphetamine Screen,Urine Negative Normal Negative [facility] Comment on above: Performed By: #### C BC, CMP, PHOS, MG, LIPID #### [place] [address] [place] Barbiturate Screen,Urine Negative Normal Negative [facility] Comment on above: Performed By: #### C BC, CMP, PHOS, MG, LIPID #### [address] Benzodiazepines Screen,Urine Negative Normal Negative [facility] Comment on above: Performed By: #### C BC, CMP, PHOS, MG, LIPID #### [address] Cannabinoid Screen,Urine Negative Normal Negative [facility] Comment on above: Result Comment: Thes e are unconfirmed results and should not be used for legal purposes. Drug Cut-Off Concentration: AMPH 1000 ng/mL TERRY 200 ng/mL HONG 200 ng/mL COCM 300 ng/mL OP 300 ng/mL PCP 25 ng/mL THC 20 ng/mL PERFORMED BY: [place] [address] PATHOLOGIST PRODUCT MERCHAND[employer] ANTONY ELIAS M.D. Performed By: #### C BC, CMP, PHOS, MG, LIPID #### [place] [address] [place] Cocaine Screen,Urine Negative Normal Negative [facility] Comment on above: Performed By: #### C BC, CMP, PHOS, MG, LIPID #### [place] [address] [place] Opiate Screen,Urine Negative Normal Negative [facility] Comment on above: Performed By: #### C BC, CMP, PHOS, MG, LIPID #### [facility] [address] Phencyclidine Screen,Urine Negative Normal Negative [facility] Comment on above: Performed By: #### C BC, CMP, PHOS, MG, LIPID #### [facility] [address] ECG 12 lead ECGon 01-03-2022 ECG 12 lead ECG [facility] [place] [address] [place] [address] Electrocardiograph Report Signed Patient: Kathy Porter MR#: [id number] : 1960 Acct:[id number] Age/Sex: 61 / F ADM Date: 01/03/22 Loc: Room: [address] [place] [address] Type: DIS INOo Attending Dr: Henry Burnett [...] ECGs available Confirmed by Justin Francisco DO ([id number]) on 01/03/2022 7:17:59 PM Referred By: Electronically Signed By:Justin Francisco DO Transcribed By: MUS Signed By Justin Francisco DO 01/03 Normal [facility] Eosinophils Auto (Bld) [#/Vo l]Ordered By: Justin Francisco on 01-03-2022 Eosinophils (Bld) [#/Vol] 0.1 10*3/uL 0.0-0.45 [facility] Eosinophils/100 WBC Auto (Bl d)Ordered By: Justin Francisco on 01-03-2022 Eosinophils/100 WBC (Bld) 1.4 % . [facility] Erythrocyte distribution wid th Auto (RBC) [Ratio]Ordered By: Justin Francisco on 01-03-2022 Erythrocyte distribution width (RBC) [Ratio] 15.7 % 11.9-15.3 [facility] Estimated glomerular filtrat ion rate (GFR) non- AmericanOrdered By: Justin Francisco on 01-03-2022 GFR/1.73 sq M.predicted among non-blacks MDRD (S/P/Bld) [Vol rate/Area] 39 mL/Min [facility] Ethyl Alcohol Profileon Ethanol [Mass/Vol] mg/dL Normal [facility] Comment on above: Performed By: #### C MP, T4F, TSH3, CBC, ETOH, JUAN, ACET, VALP #### [facility] [address] Percent Ethanol Not performed Normal [facility] Comment on above: Result Comment: PERF ORMED BY: [place] [address] PATHOLOGIST [employer]ODUCT [employer] ANTONY ELIAS M.D. Performed By: #### C MP, T4F, TSH3, CBC, ETOH, JUAN, ACET, VALP #### [address] Free T4 (Free Thyroxine)on Free T4 [Mass/Vol] 1.10 ng/dL Normal 0.61-1.12 [facility] Comment on above: Performed By: #### C BC, CMP, PHOS, MG, LIPID #### [facility] [address] [place] [address] Globulin Calc (S) [Mass/Vol] Ordered By: Justin Francisco on 01-03-2022 Globulin (S) [Mass/Vol] 3.1 g/dL [facility] Hematocrit Auto (Bld) [Volum e fraction]Ordered By: Justin Francisco on 01-03-2022 Hematocrit (Bld) [Volume fraction] 41.0 % 34.0-46.4 [facility] Ketones Auto test strip (U) [Mass/Vol]Ordered By: Justin Francisco on 01-03-2022 Ketones (U) [Mass/Vol] Negative Negative Fi [facility] - Drug toxicology Ordered By: Justin Francisco on 01-03-2022 Opiates Ql (U) Negative Negative [facility] Laboratory - Hematology and Cell countsOrdered By: Justin Francisco on 01-03-2022 Nucleated RBC/100 WBC (Bld) [Ratio] 0.1 % 0-0.5 [facility] - UrinalysisOrder ed By: Justin Francisco on 01-03-2022 Hyaline casts LM Ql (Urine sed) 0-8 [LPF] 0-8 [facility] Lymphocytes Auto (Bld) [#/Vo l]Ordered By: Justin Francisco on 01-03-2022 Lymphocytes (Bld) [#/Vol] 1.4 10*3/uL 1.00-4.8 [facility] Lymphocytes/100 WBC Auto (Bl d)Ordered By: Justin Francisco on 01-03-2022 Lymphocytes/100 WBC (Bld) 22.3 % . [facility] MCH Auto (RBC) [Entitic mass ]Ordered By: Justin Francisco on 01-03-2022 MCH (RBC) [Entitic mass] 29.7 pg 24.7-34.3 [facility] MCHC Auto (RBC) [Mass/Vol]Or dered By: Justin Francisco on 01-03-2022 MCHC (RBC) [Mass/Vol] 32.6 g/dL 32.0-35.0 [facility] MCV Auto (RBC) [Entitic vol] Ordered By: Justin Francisco on 01-03-2022 MCV (RBC) [Entitic vol] 91.0 fL 80-100 [facility] Monocytes Auto (Bld) [#/Vol] Ordered By: Justin Francisco on 01-03-2022 Monocytes (Bld) [#/Vol] 0.6 10*3/uL 0.0-0.8 [facility] Monocytes/100 WBC Auto (Bld) Ordered By: Justin Francisco on 01-03-2022 Monocytes/100 WBC (Bld) 8.9 % . [facility] Neutrophils Auto (Bld) [#/Vo l]Ordered By: Justin Francisco on 01-03-2022 Neutrophils (Bld) [#/Vol] 4.3 10*3/uL 1.8-7.7 [facility] Neutrophils/100 WBC Auto (Bl d)Ordered By: Justin Francisco on 01-03-2022 Neutrophils/100 WBC (Bld) 66.8 % . [facility] Nitrite Test strip Ql (U)Ord ered By: Justin Francisco on 01-03-2022 Nitrite Ql (U) Negative Negative [facility] No Panel InformationOrdered By: Justin Francisco on 01-03-2022 Estimated GFR () 47 mL/Min [facility] Comment on above: GFR estimated refere nce range: According to KDOQI guidelines, <60 ml/min/1.73m2 is sufficient to diagnose a patient with chronic kidney disease. Pharmacy Creatinine Clearance (Chem 43.00 [facility] Valproic Acid (Depakene) Level 59.0 ug/mL 50.0-100.0 [facility] Comment on above: Last dose: - SARS Antigen (LFIA) [facility] Phencyclidine Screen Ql (U)O rdered By: Justin Francisco on 01-03-2022 Phencyclidine Ql (U) Negative Negative [facility] Platelet mean volume Auto (B ld) [Entitic vol]Ordered By: Justin Francisco on 01-03-2022 Platelet mean volume (Bld) [Entitic vol] 8.8 fL 6.3-10.7 [facility] Platelets Auto (Bld) [#/Vol] Ordered By: Justin Francisco on 01-03-2022 Platelets (Bld) [#/Vol] 236 10*3/uL 150-450 [facility] Protein Auto test strip (U) [Mass/Vol]Ordered By: Justin Francisco on 01-03-2022 Protein (U) [Mass/Vol] Negative Negative [facility] Protein [Mass/volume] in Ser um or PlasmaOrdered By: Justin Francisco on 01-03-2022 Protein [Mass/Vol] 6.7 g/dL 6.1-7.9 [facility] RBC Auto (Bld) [#/Vol]Ordere d By: Justin Francisco on 01-03-2022 RBC (Bld) [#/Vol] 4.50 10*6/uL 3.60-5.00 [facility] Salicylateon 01-03-2022 Salicylate < 4.0 Low 15.0-30.0 [facility] Comment on above: Result Comment: Phuong ents treated with Sulfasalazine may generate a false high result for Salicylate. Patients treated with Sulfapyridine may generate a false low result for Salicylate. Performed By: #### C MP, T4F, TSH3, CBC, ETOH, JUAN, ACET, VALP #### [facility] [address] Salicylates [Mass/volume] in Serum or PlasmaOrdered By: Justin Francisco on 01-03-2022 Salicylates [Mass/Vol] mg/dL 15.0-30.0 [facility] Comment on above: Patients treated wit h Sulfasalazine may generate a false high result for Salicylate.Patients treated with Sulfapyridine may generate a false low result for Salicylate. Serum or plasma acetaminophe n measurement (mass/volume)Ordered By: Justin Francisco on 01-03-2022 Acetaminophen [Mass/Vol] 25.3 ug/mL 10.0-30.0 [facility] Serum or plasma alanine angeles otransferase measurement without P-5'-P (enzymatic activiOrdered By: Justin Francisco on 01-03-2022 ALT No additional P-5'-P [Catalytic activity/Vol] 14 U/L 10-60 [facility] Serum or plasma albumin/glob ulin mass ratioOrdered By: Justin Francisco on 01-03-2022 Albumin/Globulin [Mass ratio] 1.2 {ratio} [facility] Serum or plasma alkaline flaquita sphatase measurement (enzymatic activity/volume)Ordered By: Justin Francisco on 01-03-2022 ALP [Catalytic activity/Vol] 40 U/L 32-92 [facility] Serum or plasma anion gap de terminationOrdered By: Justin Francisco on 01-03-2022 Anion gap [Moles/Vol] 16.7 mmol/L 6.0-15.0 [facility] Serum or plasma aspartate am inotransferase measurement (enzymatic activity/volume)Ordered By: Justin Francisco on 01-03-2022 AST [Catalytic activity/Vol] 18 U/L 10-42 [facility] Serum or plasma calcium sarah urement (mass/volume)Ordered By: Justin Francisco on 01-03-2022 Calcium [Mass/Vol] 9.5 mg/dL 8.2-10.2 [facility] Serum or plasma chloride deep surement (moles/volume)Ordered By: Justin Francisco on 01-03-2022 Chloride [Moles/Vol] 99 mmol/L 95-114 [facility] Serum or plasma ethanol sarah urement (mass/volume)Ordered By: Justin Francisco on 01-03-2022 Ethanol [Mass/Vol] mg/dL [facility] Ethanol [Mass/Vol] TNP [facility] Comment on above: Test not performed Serum or plasma glucose sarah urement (mass/volume)Ordered By: Justin Francisco on 01-03-2022 Glucose [Mass/Vol] 137 mg/dL 70-100 [facility] Comment on above: ADA recommended refe rence rangeRandom Glucose Reference Range is dependent on time and content of last meal. Glucose of more than 200 mg/dL in a nonstressed, ambulatory subject supports the diagnosis of Diabetes Mellitus. Serum or plasma potassium me asurement (moles/volume)Ordered By: Justin Francisco on 01-03-2022 Potassium [Moles/Vol] 4.3 mmol/L 3.5-5.1 [facility] Serum or plasma sodium measu rement (moles/volume)Ordered By: Justin Francisco on 01-03-2022 Sodium [Moles/Vol] 135 mmol/L 136-146 [facility] Serum or plasma total biliru bin measurement (mass/volume)Ordered By: Justin Francisco on 01-03-2022 Bilirubin [Mass/Vol] 0.6 mg/dL 0.3-1.2 [facility] Serum or plasma total carbon dioxide measurement (moles/volume)Ordered By: Justin Francisco on 10-04-2022 CO2 [Moles/Vol] 23.6 mmol/L 22.0-30.0 [facility] Serum or plasma urea nitroge n measurement (mass/volume)Ordered By: Justin Francisco on 01-03-2022 Urea nitrogen [Mass/Vol] 14 mg/dL 12-23 [facility] Delores Ag Negativeon 01-04-20 Delores Ag Negative Negative Normal Negative [facility] Comment on above: Result Comment: This is a duplicate Delores SARS Antigen (MARLINE) result to be used for statistical tracking purpose only. PERFORMED BY: [place] [address] PATHOLOGIST PRODUCT [employer]CH[employer] ANTONY ELIAS M.D. Performed By: #### C BC, CMP, PHOS, MG, LIPID #### [facility] [address] [place] [id number] [facility] [[email or web address]] Specific gravity Auto test s trip (U) [Rel density]Ordered By: Justin Francisco on 01-03-2022 Specific gravity (U) [Rel density] 1.012 1.001-1.030 [facility] Squamous epithelial cells de tection in urine sediment by light microscopyOrdered By: Justin Francisco on 01-03-2022 Epithelial cells.squamous LM Ql (Urine sed) 3-4 [HPF] 0-2 [facility] TSH DL <= 0.005 mIU/L QnOrde red By: Justin Francisco on 01-03-2022 TSH Qn 4.71 m[IU]/L 0.45-5.33 [facility] Thyroid Stimulating Hormoneo n 01-03-2022 TSH Qn 4.71 m[IU]/L Normal 0.45-5.33 [facility] Comment on above: Result Comment: PERF ORMED BY: [place] [address] PATHOLOGIST PRODUCT [employer] ANTONY ELIAS M.D. Performed By: #### C BC, CMP, PHOS, MG, LIPID #### [facility] [address] [place] [id number] [facility] [[email or web address]] Thyroxine (T4) free [Mass/vo lume] in Serum or PlasmaOrdered By: Justin Francisco on 01-03-2022 Free T4 [Mass/Vol] 1.10 ng/dL 0.61-1.12 [facility] Urine Cultureon 01-03-2022 Bacteria identified Cx Nom (U) ORGANISM: Escherichia coli (O:ESCCOL) [place] Count >100,000 Aerobic AHMET Charge (NUC86) ---- [...] RESISTANT TO ALL B-LACTAM DRUGS. PERFORMED BY: [place] [address] PATHOLOGIST PRODUCT MERCHANDISER ANTONY ELIAS M.D. Normal [facility] Comment on above: Performed By: #### C BC, CMP, PHOS, MG, LIPID #### [address] Urine bacteria detection by automated methodOrdered By: Justin Francisco on 01-03-2022 Bacteria Auto Ql (U) 2+ None Seen [facility] Urine clarity by refractomet ry automatedOrdered By: Justin Francisco on 01-03-2022 Clarity Refractometry automated (U) Clear Clear [facility] Urine cocaine detectionOrder ed By: Justin Francisco on 01-03-2022 Cocaine Ql (U) Negative Negative [facility] Urine glucose measurement by automated test strip (mass/volume)Ordered By: Justin Francisco on 01-03-2022 Glucose Auto test strip (U) [Mass/Vol] Normal mg/dL Normal [facility] Urine hemoglobin detection b y automated test stripOrdered By: Justin Francisco on 01-03-2022 Hemoglobin Auto test strip Ql (U) Negative Negative [facility] Urine leukocyte esterase det ection by automated test stripOrdered By: Justin Francisco on 01-03-2022 Leukocyte esterase Auto test strip Ql (U) 2+ Negative [facility] Urobilinogen Auto test strip (U) [Mass/Vol]Ordered By: Justin Francisco on 01-03-2022 Urobilinogen (U) [Mass/Vol] Normal mg/dL Normal [facility] Valproic Acid (in house)on 1 Valproic Acid (in house) 59.0 ug/mL Normal 50.0-100.0 [facility] Comment on above: Result Comment: Last dose: - PERFORMED BY: [place] [address] PATHOLOGIST PRODUCT MERCH[employer] ANTONY ELIAS M.D. Performed By: #### C MP, T4F, TSH3, CBC, ETOH, JUAN, ACET, VALP #### [facility] [address] Yeast detection in urine sed iment by light microscopyOrdered By: Justin Francisco on 01-03-2022 Yeast LM Ql (Urine sed) None seen [HPF] None Se en [facility] pH Auto test strip (U)Ordere d By: Justin Francisco on 01-03-2022 pH (U) 5.5 [pH] 5.0-9.0 [facility] CBC AUTO DIFFon 10-27-2021 BASO # 0.1 103/ul Normal 0.0-0.1 [facility] Comment on above: Performed By: #### C BC ####[facility] [address] [place] [id number]. Julio Goddard Basophils/100 WBC (Bld) 0.6 % Normal 0.2-2.0 [facility] Comment on above: Performed By: #### C BC ####[facility] [address] [place], [place] [address]Dr. Julio Goddard EO # 0.2 103/ul Normal 0.0-0.7 [facility] Comment on above: Performed By: #### C BC ####[facility] [address] [place], [place] [address]Dr. Julio Goddard Eosinophils/100 WBC (Bld) 2.4 % Normal 0.9-7.0 [facility] Comment on above: Performed By: #### C BC ####[facility] [address] [place], [place] [address]Dr. Julio Goddard Erythrocyte distribution width (RBC) [Ratio] 15.0 % Normal 11.0-15.0 [facility] Comment on above: Performed By: #### C BC ####[facility] [address] [place], [place] [address]Dr. Julio Goddard Hematocrit (Bld) [Volume fraction] 37.4 % Normal 36.0-48.0 [facility] Comment on above: Performed By: #### C BC ####[facility] [address] [place], [place] [address]Dr. Julio Goddard Hemoglobin (Bld) [Mass/Vol] 12.2 g/dL Normal 12.0-16.0 [facility] Comment on above: Performed By: #### C BC ####[facility] [address] [place], [place] [address]Dr. Julio Goddard IG # 0.04 10e3/ul Critically high 0.00-0.03 [facility] Comment on above: Performed By: #### C BC ####[facility] [address] [place], [place] [address]Dr. Julio Goddard IG % 0.4 % Normal 0.0-0.5 [facility] Comment on above: Performed By: #### C BC ####[facility] [address] [place] [id number]. Julio Goddard LYMPH # 2.3 103/ul Normal 1.2-3.8 [facility] Comment on above: Performed By: #### C BC ####[facility] [address] [place] [id number]. Julio Rupesh Lymphocytes/100 WBC (Bld) 23.6 % Normal 20.5-60.0 [facility] Comment on above: Performed By: #### C BC ####[facility] [address] [place] [id number]. Julio Goddard MANUAL DIFF REQ NO Normal [facility] Comment on above: Performed By: #### C BC ####[facility] [address] [place] [phone]. Julio Rupesh MCH (RBC) [Entitic mass] 29.3 pg Normal 26.7-34.0 [facility] Comment on above: Performed By: #### C BC ####[facility] [address] [place] [id number]. Julio Goddard MCHC (RBC) [Mass/Vol] 32.6 g/dL Normal 29.9-35.2 [facility] Comment on above: Performed By: #### C BC ####[facility] [address] [place] [id number]. Julio Goddard MCV (RBC) [Entitic vol] 89.7 fL Normal 81.0-99.0 [facility] Comment on above: Performed By: #### C BC ####[facility] [address] [place] [phone]. Hiralharesh Rupesh MONO # 0.6 103/ul Normal 0.3-0.8 [facility] Comment on above: Performed By: #### C BC ####[facility] [address] [place] [phone]. Julio Goddard Monocytes/100 WBC (Bld) 5.5 % Normal 1.7-12.0 [facility] Comment on above: Performed By: #### C BC ####[facility] [address] [place] [phone]. Julio Goddard NEUT # 6.7 103/ul Critically high 1.4-6.5 [facility] Comment on above: Performed By: #### C BC ####[facility] [address] [place] [phone]. Julio Goddard Neutrophils/100 WBC (Bld) 67.5 % Normal 43.0-75.0 [facility] Comment on above: Performed By: #### C BC ####[facility] [address] [place] [phone]. Julio Goddard Platelet mean volume (Bld) [Entitic vol] 10.2 fL Normal 9.5-13.5 [facility] Comment on above: Performed By: #### C BC ####[facility] [id number] [place] [address]Dr. Julio Goddard PLT 296 103/ul Normal 150-450 [facility] Comment on above: Performed By: #### C BC ####[facility] [address] [place] [id number]. Julio Goddard RBC 4.17 106/ul Critically low 4.20-5.40 [facility] Comment on above: Performed By: #### C BC ####[facility] [id number] [place] [id number]. Julio Goddard WBC 9.9 103/ul Normal 4.0-11.0 [facility] Comment on above: Performed By: #### C BC ####[facility] [id number] [place] [id number]. Julio Goddard LIPID PROFILEon 10-27-2021 CHOL-HDL RATIO NORM SEE BELOW Normal [facility] Comment on above: Result Comment: 3.3 - 4.4 LOW RISK 4.4 - 7.1 AVERAGE RISK 7.1 - 11.0 MODERATE RISK >11.0 HIGH RISK Performed By: #### C MP, LIPID ####[facility] [id number] [place] [id number]. Julio Goddard Cholesterol [Mass/Vol] 148 mg/dL Normal <=200 [facility] Comment on above: Performed By: #### C MP, LIPID ####[facility] [address] [place], [place] [address]Bn. Julio Goddard Cholesterol in HDL [Mass/Vol] 60 mg/dL Normal 40-60 [facility] Comment on above: Performed By: #### C MP, LIPID ####[facility] [address] [place] [id number]. Julio Goddard Cholesterol in LDL [Mass/Vol] 72.2 mg/dL Normal [facility] Comment on above: Performed By: #### C MP, LIPID ####[facility] [address] [place] [id number]. Julio Goddard Cholesterol.total/Tila sterol in HDL [Mass ratio] 2.5 {ratio} Normal [facility] Comment on above: Performed By: #### C MP, LIPID ####[facility] [address] [place] [id number]. Julio Goddard HDL NORMAL > or = 60 mg/dl - LO W CARDIOVASCULAR RISK <40 mg/dl - HIGH CARDIOVASCULAR RISK Normal [facility] Comment on above: Performed By: #### C MP, LIPID ####[facility] [address] [place] [id number]. Julio Goddard LDL CALC NORMAL SEE BELOW Normal [facility] Comment on above: Result Comment: <100 mg/dl OPTIMAL 100 - 129 mg/dl NEAR OR ABOVE OPTIMAL 130 - 159 mg/dl BORDERLINE HIGH 160 - 189 mg/dl HIGH >190 mg/dl VERY HIGH Performed By: #### C MP, LIPID ####[facility] [address] [place] [id number]. Julio Goddard Triglyceride [Mass/Vol] 79 mg/dL Normal <=150 T [facility] Comment on above: Performed By: #### C MP, LIPID ####[facility] [id number] [place] [id number]. Julio Goddard VLDL CALC 15.8 mg/dL Normal [facility] Comment on above: Performed By: #### C MP, LIPID ####[facility] [address] [place], [place] [address]AwDr. Julio Goddard PROF 14(COMP METB)on 022 Albumin [Mass/Vol] 3.7 g/dL Normal 3.4-5.0 [facility] Comment on above: Performed By: #### C MP, LIPID #### [facility] [address] [address] [address] Julio Goddard Albumin/Globulin [Mass ratio] 1.0 {ratio} Normal [facility] Comment on above: Performed By: #### C MP, LIPID #### [facility] [address] [address] [address] Julio Goddard ALP [Catalytic activity/Vol] 53 U/L Normal 46-116 [facility] Comment on above: Performed By: #### C MP, LIPID #### [facility] [address] [address] [address] Julio Goddard ALT [Catalytic activity/Vol] 15 U/L Normal 14-59 [facility] Comment on above: Performed By: #### C MP, LIPID #### [facility] [address] [address] [address] Julio Goddard Anion gap [Moles/Vol] 16.1 mmol/L Normal [facility] Comment on above: Performed By: #### C MP, LIPID #### [facility] [address] [address] [address] Julio Goddard AST [Catalytic activity/Vol] 8 U/L Critically low 15-37 [facility] Comment on above: Performed By: #### C MP, LIPID #### [facility] [address] [address] [address] Julio Goddard Bilirubin [Mass/Vol] 0.5 mg/dL Normal 0.2-1.0 [facility] Comment on above: Performed By: #### C MP, LIPID #### [facility] [address] [address] [address] Julio Goddard Calcium [Mass/Vol] 9.1 mg/dL Normal 8.5-10.1 [facility] Comment on above: Performed By: #### C MP, LIPID #### [facility] [address] [address] [address] Julio Goddard Chloride [Moles/Vol] 106 mmol/L Normal 98-107 [facility] Comment on above: Performed By: #### C MP, LIPID #### [facility] [address] [address] [address] Julio Goddard CO2 [Moles/Vol] 24.1 mmol/L Normal 21.0-32.0 [facility] Comment on above: Performed By: #### C MP, LIPID #### [facility] [address] [address] [address] Julio Goddard Creatinine [Mass/Vol] 1.40 mg/dL Critically high 0.55-1.02 [facility] Comment on above: Performed By: #### C MP, LIPID #### [facility] [address] [place] [address] Dr. Julio Goddard EGFR-AF [place] 47 mL/min/1.73m2 Critically low >=60 [facility] Comment on above: Performed By: #### C MP, LIPID #### [facility] [address] [place] [address] Dr. Julio Goddard EGFR-NON AF [place] 39 mL/min/1.73m2 Critically low >=60 [facility] Comment on above: Performed By: #### C MP, LIPID #### [facility] [address] [place] [address] Dr. Julio Goddard Globulin (S) [Mass/Vol] 3.6 g/dL Normal T [facility] Comment on above: Performed By: #### C MP, LIPID #### [facility] [address] [address] [address] Julio Goddard Glucose [Mass/Vol] 95 mg/dL Normal 74-106 [facility] Comment on above: Performed By: #### C MP, LIPID #### [facility] [address] [place] [address] Dr. Julio Goddard Potassium [Moles/Vol] 4.2 mmol/L Normal 3.5-5.1 [facility] Comment on above: Performed By: #### C MP, LIPID #### [facility] [address] [place] [address] Dr. Julio Goddard Protein [Mass/Vol] 7.3 g/dL Normal 6.4-8.2 [facility] Comment on above: Performed By: #### C MP, LIPID #### [facility] [address] [place] [address] Dr. Julio Goddard Sodium [Moles/Vol] 142 mmol/L Normal 136-145 [facility] Comment on above: Performed By: #### C MP, LIPID #### [facility] [address] [place] [address] Dr. Julio Goddard Urea nitrogen [Mass/Vol] 18.0 mg/dL Normal 7.0-18.0 [facility] Comment on above: Performed By: #### C MP, LIPID #### [facility] [address] [place] [address] Dr. Julio Goddard Urea nitrogen/Creatinine [Mass ratio] 12.9 mg/mg Normal [facility] Comment on above: Performed By: #### C MP, LIPID #### [facility] [address] [place] [address] Dr. Julio Goddard INSULINon 03-23-2021 Insulin 10.0 uIU/mL Normal 2.6-24.9 [facility] Comment on above: Performed By: #### I NSULIN #### [facility] [address] [place] [address] Dr. Julio Goddard VIT D 25-OH LABCORPon 2020 Vitamin D, 25-Hydroxy 11.8 ng/mL Critically low 30.0-100.0 [facility] Comment on above: Result Comment: Swati min D deficiency has been defined by the [place] [employer] and an Endocrine Society practice guideline as a level of serum 25-OH vitamin D less than 20 ng/mL (1,2). The Endocrine Society went on to further define vitamin D insufficiency as a level between 21 and 29 ng/mL (2). 1. IOM ([place] of [employer]). 2010. Dietary reference intakes for calcium and D. [place]: The National Academies Press. 2. Matt MF, Wilma [place], Shiraz ELIZONDO, et al. Evaluation, treatment, and prevention of vitamin D deficiency: an Endocrine Society clinical practice guideline. JCEM. 2010; 96(7):1911-30. Performed By: #### V ITADLC ####[facility] [address] [place], [place] [address]JtDr. Julio Goddard CBC AUTO DIFFon 03-22-2021 BASO # 0.1 103/ul Normal 0.0-0.1 [facility] Comment on above: Performed By: #### C BC #### [facility] [address] [address] [address] Julio Goddard Basophils/100 WBC (Bld) 0.8 % Normal 0.2-2.0 [facility] Comment on above: Performed By: #### C BC #### [facility] [address] [address] [address] Julio Goddard EO # 0.2 103/ul Normal 0.0-0.7 [facility] Comment on above: Performed By: #### C BC #### [facility] [address] [address] [address] Julio Goddard Eosinophils/100 WBC (Bld) 2.6 % Normal 0.9-7.0 [facility] Comment on above: Performed By: #### C BC #### [facility] [address] [address] [address] Julio Goddard Erythrocyte distribution width (RBC) [Ratio] 14.2 % Normal 11.0-15.0 [facility] Comment on above: Performed By: #### C BC #### [facility] [address] [address] [address] Juloi Goddard Hematocrit (Bld) [Volume fraction] 37.4 % Normal 36.0-48.0 [facility] Comment on above: Performed By: #### C BC #### [facility] [address] [address] [address] Julio Goddard Hemoglobin (Bld) [Mass/Vol] 11.9 g/dL Critically low 12.0-16.0 [facility] Comment on above: Performed By: #### C BC #### [facility] [address] [place] [address] Dr. Julio oGddard IG # 0.02 10e3/ul Normal 0.00-0.03 [facility] Comment on above: Performed By: #### C BC #### [facility] [address] [place] [address] Dr. Julio Goddard IG % 0.3 % Normal 0.0-0.5 [facility] Comment on above: Performed By: #### C BC #### [facility] [address] [place] [address] Dr. Julio Goddard LYMPH # 1.8 103/ul Normal 1.2-3.8 [facility] Comment on above: Performed By: #### C BC #### [facility] [address] [place] [address] Dr. Julio Goddard Lymphocytes/100 WBC (Bld) 27.6 % Normal 20.5-60.0 [facility] Comment on above: Performed By: #### C BC #### [facility] [address] [place] [address] Dr. Julio Goddard MANUAL DIFF REQ NO Normal [facility] Comment on above: Performed By: #### C BC #### [facility] [address] [place] [address] Dr. Julio Goddard MCH (RBC) [Entitic mass] 29.1 pg Normal 26.7-34.0 [facility] Comment on above: Performed By: #### C BC #### [facility] [address] [place] [address] Dr. Julio Goddard MCHC (RBC) [Mass/Vol] 31.8 g/dL Normal 29.9-35.2 [facility] Comment on above: Performed By: #### C BC #### [facility] [address] [place] [address] Dr. Julio Goddard MCV (RBC) [Entitic vol] 91.4 fL Normal 81.0-99.0 [facility] Comment on above: Performed By: #### C BC #### [facility] [address] [address] [address] Julio Goddard MONO # 0.6 103/ul Normal 0.3-0.8 [facility] Comment on above: Performed By: #### C BC #### [facility] [address] [address] [address] Julio Goddard Monocytes/100 WBC (Bld) 8.7 % Normal 1.7-12.0 [facility] Comment on above: Performed By: #### C BC #### [facility] [address] [address] [address] Julio Goddard NEUT # 3.9 103/ul Normal 1.4-6.5 [facility] Comment on above: Performed By: #### C BC #### [facility] [address] [place] [address] Dr. Julio Goddard Neutrophils/100 WBC (Bld) 60.0 % Normal 43.0-75.0 [facility] Comment on above: Performed By: #### C BC #### [facility] [address] [place] [address] Dr. Julio Goddard Platelet mean volume (Bld) [Entitic vol] 10.1 fL Normal 9.5-13.5 [facility] Comment on above: Performed By: #### C BC #### [facility] [address] [place] [address] Dr. Julio Goddard PLT 263 103/ul Normal 150-450 [facility] Comment on above: Performed By: #### C BC #### [facility] [address] [place] [address] Dr. Julio Goddard RBC 4.09 106/ul Critically low 4.20-5.40 [facility] Comment on above: Performed By: #### C BC #### [facility] [address] [address] [address] Julio Goddard WBC 6.5 103/ul Normal 4.0-11.0 [facility] Comment on above: Performed By: #### C BC #### [facility] [address] [address] [address] Julio Goddard FREE THYROXINE INDEX T7on FTI 3.50 Normal [facility] Comment on above: Performed By: #### C MP, T7, LIPID, TSH #### [facility] [address] [address] [address] Julio Goddard T3U 35.0 % Normal 23.5-40.5 [facility] Comment on above: Performed By: #### C MP, T7, LIPID, TSH #### [facility] [address] [address] [address] Julio Goddard T4 [Mass/Vol] 10.00 ug/dL Normal 5.53-11.00 [facility] Comment on above: Performed By: #### C MP, T7, LIPID, TSH #### [facility] [address] [address] [address] Julio Goddard GLYCOHEMOGLOBIN A1Con 2020 ADA RECOMMENDATION ADA THERAPEUTIC TARGET 6.0 - 7.0 ACTION SUGGESTED > 7.0 Normal [facility] Comment on above: Performed By: #### A 1C #### [facility] [address] [address] [address] Julio Goddard Glucose [Mass/Vol] 103 mg/dL Normal [facility] Comment on above: Performed By: #### A 1C #### [facility] [address] [address] [address] Julio Goddard HbA1c (Bld) [Mass fraction] 5.2 % Normal <=6.0 [facility] Comment on above: Performed By: #### A 1C #### [facility] [address] [address] [address] Julio Goddard IRONon 03-22-2021 Iron [Mass/Vol] 55.0 ug/dL Normal 37.0-170.0 [facility] Comment on above: Performed By: #### I MARIA E ####[facility] [address] [address] [address]Dr. Julio Goddard LIPID PROFILEon 03-22-2021 CHOL-HDL RATIO NORM SEE BELOW Normal [facility] Comment on above: Result Comment: 3.3 - 4.4 LOW RISK 4.4 - 7.1 AVERAGE RISK 7.1 - 11.0 MODERATE RISK >11.0 HIGH RISK Performed By: #### C MP, T7, LIPID, TSH #### [facility] [address] [address] [address] Julio Goddard Cholesterol [Mass/Vol] 163 mg/dL Normal <=200 Th [facility] Comment on above: Performed By: #### C MP, T7, LIPID, TSH #### [facility] [address] [address] [address] Julio Goddard Cholesterol in HDL [Mass/Vol] 65 mg/dL Normal [facility] Comment on above: Performed By: #### C MP, T7, LIPID, TSH #### [facility] [address] [address] [address] Julio Goddard Cholesterol in LDL [Mass/Vol] 80.8 mg/dL Normal [facility] Comment on above: Performed By: #### C MP, T7, LIPID, TSH #### [facility] [address] [address] [address] Julio Goddard Cholesterol.total/Tila sterol in HDL [Mass ratio] 2.5 {ratio} Normal [facility] Comment on above: Performed By: #### C MP, T7, LIPID, TSH #### [facility] [address] [address] [address] Julio Goddard HDL NORMAL > or = 60 mg/dl - LO W CARDIOVASCULAR RISK <40 mg/dl - HIGH CARDIOVASCULAR RISK Normal [facility] Comment on above: Performed By: #### C MP, T7, LIPID, TSH #### [facility] [address] [address] [address] Julio Goddard LDL CALC NORMAL SEE BELOW Normal [facility] Comment on above: Result Comment: <100 mg/dl OPTIMAL 100 - 129 mg/dl NEAR OR ABOVE OPTIMAL 130 - 159 mg/dl BORDERLINE HIGH 160 - 189 mg/dl HIGH >190 mg/dl VERY HIGH Performed By: #### C MP, T7, LIPID, TSH #### [facility] [address] [address] [address] Julio Goddard Triglyceride [Mass/Vol] 86 mg/dL Normal <=150 T [facility] Comment on above: Performed By: #### C MP, T7, LIPID, TSH #### [facility] [address] [address] [address] Julio Goddard VLDL CALC 17.2 mg/dL Normal [facility] Comment on above: Performed By: #### C MP, T7, LIPID, TSH #### [facility] [address] [address] [address] Julio Goddard PROF 14(COMP METB)on 021 Albumin [Mass/Vol] 3.5 g/dL Normal 3.5-5.0 [facility] Comment on above: Performed By: #### C MP, T7, LIPID, TSH #### [facility] [address] [address] [address] Julio Goddard Albumin/Globulin [Mass ratio] 1.0 {ratio} Normal [facility] Comment on above: Performed By: #### C MP, T7, LIPID, TSH #### [facility] [address] [address] [address] Julio Goddard ALP [Catalytic activity/Vol] 58 U/L Normal 38-126 [facility] Comment on above: Performed By: #### C MP, T7, LIPID, TSH #### [facility] [address] [address] [address] Julio Goddard ALT [Catalytic activity/Vol] 16 U/L Normal 9-52 [facility] Comment on above: Performed By: #### C MP, T7, LIPID, TSH #### [facility] [address] [address] [address] Julio Goddard Anion gap [Moles/Vol] 13.0 mmol/L Normal [facility] Comment on above: Performed By: #### C MP, T7, LIPID, TSH #### [facility] [address] [address] [address] Julio Goddard AST [Catalytic activity/Vol] 10 U/L Critically low 14-36 [facility] Comment on above: Performed By: #### C MP, T7, LIPID, TSH #### [facility] [address] [address] [address] Julio Goddard Bilirubin [Mass/Vol] 0.6 mg/dL Normal 0.2-1.3 [facility] Comment on above: Performed By: #### C MP, T7, LIPID, TSH #### [facility] [address] [place] [address] Dr. Julio Goddard Calcium [Mass/Vol] 9.4 mg/dL Normal 8.4-10.2 [facility] Comment on above: Performed By: #### C MP, T7, LIPID, TSH #### [facility] [address] [place] [address] Dr. Julio Goddard Chloride [Moles/Vol] 105 mmol/L Normal 98-107 [facility] Comment on above: Performed By: #### C MP, T7, LIPID, TSH #### [facility] [address] [place] [address] Dr. Julio Goddard CO2 [Moles/Vol] 28.3 mmol/L Normal 22.0-30.0 [facility] Comment on above: Performed By: #### C MP, T7, LIPID, TSH #### [facility] [address] [place] [address] Dr. Julio Goddard Creatinine [Mass/Vol] 1.37 mg/dL Critically high 0.52-1.04 [facility] Comment on above: Performed By: #### C MP, T7, LIPID, TSH #### [facility] [address] [place] [address] Dr. Julio Goddard EGFR-AF [place] 48 mL/min/1.73m2 Critically low >=60 [facility] Comment on above: Performed By: #### C MP, T7, LIPID, TSH #### [facility] [address] [place] [address] Dr. Julio Goddard EGFR-NON AF [place] 40 mL/min/1.73m2 Critically low >=60 [facility] Comment on above: Performed By: #### C MP, T7, LIPID, TSH #### [facility] [address] [address] [address] Julio Goddard Globulin (S) [Mass/Vol] 3.5 g/dL Normal [facility] Comment on above: Performed By: #### C MP, T7, LIPID, TSH #### [facility] [address] [place] [address] Dr. Julio Goddard Glucose [Mass/Vol] 110 mg/dL Critically high 74-106 [facility] Comment on above: Performed By: #### C MP, T7, LIPID, TSH #### [facility] [address] [place] [address] Dr. Julio Goddard Potassium [Moles/Vol] 4.3 mmol/L Normal 3.4-5.0 [facility] Comment on above: Performed By: #### C MP, T7, LIPID, TSH #### [facility] [address] [place] [address] Dr. Julio Goddard Protein [Mass/Vol] 7.0 g/dL Normal 6.1-8.2 [facility] Comment on above: Performed By: #### C MP, T7, LIPID, TSH #### [facility] [address] [place] [address] Dr. Julio Goddard Sodium [Moles/Vol] 142 mmol/L Normal 137-145 [facility] Comment on above: Performed By: #### C MP, T7, LIPID, TSH #### [facility] [address] [place] [address] Dr. Julio Goddard Urea nitrogen [Mass/Vol] 13.0 mg/dL Normal 7.0-17.0 [facility] Comment on above: Performed By: #### C MP, T7, LIPID, TSH #### [facility] [address] [place] [address] Dr. Julio Goddard Urea nitrogen/Creatinine [Mass ratio] 9.5 mg/mg Normal [facility] Comment on above: Performed By: #### C MP, T7, LIPID, TSH #### [facility] [address] [place] [address] Dr. Julio Goddard TSHon 03-22-2021 TSH 2.734 uIU/mL Normal 0.470-4.680 [facility] Comment on above: Performed By: #### C MP, T7, LIPID, TSH #### [facility] [address] [place], [place] [address] Dr. Julio Goddard TSH RANGE SEE BELOW Normal [facility] Comment on above: Result Comment: <0.3 4 UIU/ml HYPERTHYROID 0.34-5.60 UIU/ml EUTHYROID >5.60 UIU/ml HYPOTHYROID Performed By: #### C MP, T7, LIPID, TSH #### [facility] [address] [place], [place] [address] Dr. Julio Goddard Vital Signs Date Time Vital Sign Value Performing Clinician Facility 02-12-2024 08:50-0500 Body height 157.5 cm Angelo De La Cruz MD Work Phone: [facility] 02-12-2024 08:50-0500 Body mass index (BMI) [Ratio] 34.75 kg/m2 Angelo De La Cruz MD Work Phone: [facility] 02-12-2024 08:50-0500 Body weight 86.18 kg Angelo De La Cruz MD Work Phone: [facility] 02-12-2024 08:50-0500 Diastolic blood pressure 76 mm[Hg] Angelo De La Cruz MD Work Phone: [facility] 02-12-2024 08:50-0500 Systolic blood pressure 119 mm[Hg] Angelo De La Cruz MD Work Phone: [facility] 02-05-2024 10:32-0500 Body height 157.5 cm Angelo De La Cruz MD Work Phone: [facility] 02-05-2024 10:32-0500 Body mass index (BMI) [Ratio] 34.75 kg/m2 Angelo De La Cruz MD Work Phone: [facility] 02-05-2024 10:32-0500 Body weight 86.18 kg Angelo De La Cruz MD Work Phone: [facility] 02-05-2024 10:32-0500 Diastolic blood pressure 81 mm[Hg] Angelo De La Cruz MD Work Phone: [facility] 02-05-2024 10:32-0500 Systolic blood pressure 121 mm[Hg] Angelo De La Cruz MD Work Phone: [facility] 11-27-2023 14:51-0400 Blood Pressure Location OXANA DEVEN [facility] 11-27-2023 14:51-0400 Diastolic blood pressure 96 mm[Hg] OXANA DEVEN [facility] 11-27-2023 14:51-0400 Heart rate 66 /min OXANA DEVEN [facility] 11-27-2023 14:51-0400 Systolic blood pressure 144 mm[Hg] OXANA DEVEN [facility] 08-21-2023 09:39-0400 Blood Pressure Location OXANA DEVEN [facility] 08-21-2023 09:39-0400 Diastolic blood pressure 63 mm[Hg] OXANA DEVEN [facility] 08-21-2023 09:39-0400 Heart rate 74 /min OXANA DEVEN [facility] 08-21-2023 09:39-0400 Respiratory rate 19 /min OXANA DEVEN [facility] 08-21-2023 09:39-0400 Systolic blood pressure 108 mm[Hg] OXANA DEVEN [facility] 05-30-2022 13:47-0500 Body height 157.5 cm Scott Mcallister MD Work Phone: [facility] 05-30-2022 13:47-0500 Body mass index (BMI) [Ratio] 32.74 kg/m2 Scott Mcallister MD Work Phone: [facility] 05-30-2022 13:47-0500 Body weight 81.19 kg Scott Mcallister MD Work Phone: [facility] 05-30-2022 13:47-0500 Diastolic blood pressure 84 mm[Hg] Scott Mcallister MD Work Phone: [facility] 05-30-2022 13:47-0500 Heart rate 76 /min Scott Mcallister MD Work Phone: [facility] 05-30-2022 13:47-0500 Respiratory rate 16 /min Scott Mcallister MD Work Phone: [facility] 05-30-2022 13:47-0500 SaO2% (BldA) [Mass fraction] 97 % Scott Mcallister MD Work Phone: [facility] 05-30-2022 13:47-0500 Systolic blood pressure 129 mm[Hg] Scott Mcallister MD Work Phone: [facility] 02-28-2022 12:48-0500 Body height 157.5 cm Scott Mcallister MD Work Phone: [facility] 02-28-2022 12:48-0500 Body mass index (BMI) [Ratio] 32.74 kg/m2 Scott Mcallister MD Work Phone: [facility] 02-28-2022 12:48-0500 Body weight 81.19 kg Scott Mcallister MD Work Phone: [facility] 02-28-2022 12:48-0500 Diastolic blood pressure 83 mm[Hg] Scott Mcallister MD Work Phone: [facility] 02-28-2022 12:48-0500 Heart rate 78 /min Scott Mcallister MD Work Phone: [facility] 02-28-2022 12:48-0500 Respiratory rate 18 /min Scott Mcallister MD Work Phone: [facility] 02-28-2022 12:48-0500 SaO2% (BldA) [Mass fraction] 95 % Scott Mcallister MD Work Phone: [facility] 02-28-2022 12:48-0500 Systolic blood pressure 132 mm[Hg] Scott Mcallister MD Work Phone: [facility] 01-05-2022 11:19-0400 Diastolic blood pressure 79 mm[Hg] DO Justin Francisco Work Phone: [facility] 01-05-2022 11:19-0400 Heart rate 75 /min DO Justin Francisco Work Phone: [facility] 01-05-2022 11:19-0400 Respiratory rate 18 /min DO Justin Francisco Work Phone: [facility] 01-05-2022 11:19-0400 SaO2% (BldA) [Mass fraction] 97 % DO Justin Francisco Work Phone: [facility] 01-05-2022 11:19-0400 Systolic blood pressure 126 mm[Hg] DO Justin Francisco Work Phone: [facility] 01-05-2022 08:17-0400 Body temperature 97.5 [degF] DO Justin Francisco Work Phone: [facility] 01-05-2022 04:44-0400 Body weight 79.8 kg DO Justin Francisco Work Phone: [facility] 01-04-2022 11:34-0400 Body height 157.48 cm DO Justin Francisco Work Phone: [facility] 01-03-2022 17:04-0400 Diastolic blood pressure 110 mm[Hg] DO Justin Francisco Work Phone: [facility] 01-03-2022 17:04-0400 Heart rate 88 /min DO Justin Francisco Work Phone: [facility] 01-03-2022 17:04-0400 Respiratory rate 20 /min DO Justin Francisco Work Phone: [facility] 01-03-2022 17:04-0400 SaO2% (BldA) [Mass fraction] 97 % DO Justin Francisco Work Phone: [facility] 01-03-2022 17:04-0400 Systolic blood pressure 180 mm[Hg] DO Justin Francisco Work Phone: [facility] 01-03-2022 14:43-0400 Body height 157.48 cm DO Justin Francisco Work Phone: [facility] 01-03-2022 14:43-0400 Body weight 80 kg DO Justin Francisco Work Phone: [facility] 01-03-2022 13:59-0400 Body temperature 98.5 [degF] DO Justin Francisco Work Phone: [facility] 10-14-2021 13:13-0400 Body height 157.5 cm Scott Mcallister MD Work Phone: [facility] 10-14-2021 13:13-0400 Body mass index (BMI) [Ratio] 32.92 kg/m2 Scott Mcallister MD Work Phone: [facility] 10-14-2021 13:13-0400 Body weight 81.65 kg Scott Mcallister MD Work Phone: [facility] 10-14-2021 13:13-0400 Diastolic blood pressure 85 mm[Hg] Scott Mcallister MD Work Phone: [facility] 10-14-2021 13:13-0400 Heart rate 76 /min Scott Mcallister MD Work Phone: [facility] 10-14-2021 13:13-0400 Respiratory rate 16 /min Scott Mcallister MD Work Phone: [facility] 10-14-2021 13:13-0400 SaO2% (BldA) [Mass fraction] 95 % Scott Mcallister MD Work Phone: [facility] 10-14-2021 13:13-0400 Systolic blood pressure 125 mm[Hg] Scott Mcallister MD Work Phone: [facility] 07-19-2021 12:55-0400 Body height 157.5 cm Scott Mcallister MD Work Phone: [facility] 07-19-2021 12:55-0400 Body mass index (BMI) [Ratio] 32.92 kg/m2 Scott Mcallister MD Work Phone: [facility] 07-19-2021 12:55-0400 Body weight 81.65 kg Scott Mcallister MD Work Phone: [facility] 07-19-2021 12:55-0400 Diastolic blood pressure 86 mm[Hg] Scott Mcallister MD Work Phone: [facility] 07-19-2021 12:55-0400 Heart rate 67 /min Scott Mcallister MD Work Phone: [facility] 07-19-2021 12:55-0400 Respiratory rate 16 /min Scott Mcallister MD Work Phone: [facility] 07-19-2021 12:55-0400 SaO2% (BldA) [Mass fraction] 98 % Scott Mcallister MD Work Phone: [facility] 07-19-2021 12:55-0400 Systolic blood pressure 126 mm[Hg] Scott Mcallister MD Work Phone: [facility] 09-24-2020 13:12-0400 Body height 157.5 cm Scott Mcallister MD Work Phone: [facility] 09-24-2020 13:12-0400 Body mass index (BMI) [Ratio] 32.92 kg/m2 Scott Mcallister MD Work Phone: [facility] 09-24-2020 13:12-0400 Body weight 81.65 kg Scott Mcallister MD Work Phone: [facility] 09-24-2020 13:12-0400 Diastolic blood pressure 89 mm[Hg] Scott Mcallister MD Work Phone: [facility] 09-24-2020 13:12-0400 Heart rate 67 /min Scott Mcallister MD Work Phone: [facility] 09-24-2020 13:12-0400 Respiratory rate 16 /min Scott Mcallister MD Work Phone: [facility] 09-24-2020 13:12-0400 SaO2% (BldA) [Mass fraction] 95 % Scott Mcallister MD Work Phone: [facility] 09-24-2020 13:12-0400 Systolic blood pressure 146 mm[Hg] Scott Mcallister MD Work Phone: [facility] 07-27-2020 12:59-0400 Body height 165.1 cm Scott Mcallitser MD Work Phone: [facility] 07-27-2020 12:59-0400 Body mass index (BMI) [Ratio] 22.63 kg/m2 Scott Mcallister MD Work Phone: [facility] 07-27-2020 12:59-0400 Body weight 61.69 kg Scott Mcallister MD Work Phone: [facility] 05-17-2020 13:11-0500 BP Diastolic 103 mm[Hg] Scott Mcallister [facility] 05-17-2020 13:11-0500 BP Systolic 163 mm[Hg] Sctot Mcallister [facility] 05-17-2020 13:11-0500 Height 157.5 cm Scott Mcallister [facility] 05-17-2020 13:11-0500 Pulse (Heart Rate) 66 /[facility] 13:0500 [facility] 13:0500 Respiratory Rate 16 /min [facility] Encounters Encounter Date Encounter Type Care Provider Facility Start: 06-17-2024 ambulatory Terrie FALL Facility :[facility] Start: 06-02-2024 ambulatory Peter Arnett [facility] Start: 02-12-2024 End: 02-12-2024 Isabela De La [...] [facility] Start: 02-05-2024 End: 02-05-2024 Surendraboo mere De La Cruz MD Work Phone: [facility] [...] encounter procedure OXANA CARVALHO [facility] Start: 11-27-2023 End: 11-27-2023 Refill Scott Mcallister MD Work Phone: [facility] Start: 11-02-2023 End: 11-04-2023 ambulatory DESIRE C [facility] Start: 11-02-2023 End: 11-04-2023 ambulatory DESIRE C [facility] Start: 09-28-2023 End: 09-30-2023 ambulatory DESIRE C [facility] Start: 09-28-2023 End: 09-30-2023 Subsequent hospital visit by physician Peter Arnett MD Work Phone: [facility] Start: 08-21-2023 End: 08-21-2023 ambulatory Peter Arnett Facility: [facility] Start: 08-21-2023 End: 08-21-2023 Patient encounter procedure OXANA CARVALHO [facility] Start: 05-30-2022 End: 05-30-2022 ambulatory SCOTT DAUGHERTYOT [facility] Start: 05-30-2022 End: 05-30-2022 Office outpatient visit 15 minutes Scott Mcallister MD Work Phone: [facility] Comment on above: Bipolar 1 disorder, mixed, mild (HCC) (Primary Dx); Insomnia due to mental disorder; VICKIE (generalized anxiety disorder) Start: 05-10-2022 Refill Scott Mcallister MD Work Phone: [facility] Start: 03-30-2022 Refill Scott Mcallister MD Work Phone: [facility] Comment on above: 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; VICKIE (generalized anxiety disorder) Start: 02-28-2022 End: 02-28-2022 ambulatory [facility] Start: 02-28-2022 End: 02-28-2022 Office outpatient visit 25 minutes Scott Mcallister MD Work Phone: [facility] Comment on above: Bipolar 1 disorder, depressed, mild (HCC) (Primary Dx); Insomnia due to mental disorder; VICKIE (generalized anxiety disorder) Start: 01-19-2022 End: 01-20-[address] PETER ARNETT Facility:[facility] Start: 01-09-2022 End: 01-09-2022 ambulatory UPRANI BELTRESlideYOLA [facility] Start: 01-03-2022 End: 01-05-2022 ambulatory Peter Arnett Facility:[facility] Start: 01-03-2022 End: 01-05-2022 Evaluation and management of inpatient DO Justin Francisco Work Phone: [facility] [place] [facility] Start: 01-03-2022 End: 01-05-2022 observation encounter DO Justin Dasia GriffinFrancisco Work Phone: [facility] Work Phone: Start: 10-27-2021 End: 10-28-2021 ambulatory JELLYRANI BELTREEVANYOLA Facility:[facility] Start: 10-14-2021 End: 10-14-2021 ambulatory UPRANI Gravy [facility] Start: 10-14-2021 End: 10-14-2021 Office outpatient visit 15 minutes Scott Mcallister MD Work Phone: [facility] Comment on above: Bipolar 1 disorder, depressed, moderate (HCC) (Primary Dx); Insomnia due to mental disorder; VICKIE (generalized anxiety disorder) Start: 10-05-2021 ambulatory [facility]ALLISTER [facility] Start: 07-22-2021 ambulatory [facility]ER [facility]f [facility] Start: 07-19-2021 End: 07-19-2021 ambulatory PETER ARNETT [facility] Start: 07-19-2021 End: 07-19-2021 Office outpatient visit 15 minutes Scott Mcallister MD Work Phone: [facility] Comment on above: Bipolar 1 disorder, depressed, moderate (HCC) (Primary Dx); Insomnia due to mental disorder; VICKIE (generalized anxiety disorder) Start: 05-16-2021 Refill Sarah Leigh MA [facility] Comment on above: 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 (Primary Dx) 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 Start: 03-30-2021 Encounter for genera l adult medical examination without abnormal findings DR PETER ARNETT [facility] Start: 03-29-2021 Refill Nellie Sumner MA [facility] Start: 03-22-2021 End: 03-23-[address] PETER ARNETT Facility:[facility] Start: 03-22-2021 End: 03-23-2021 Encounter for general adult medical examination without abnormal findings DR PETER ARNETT Facility:[facility] Start: 12-07-2020 Refill Lidia hernandez LPN [facility] Comment on above: 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; VICKIE (generalized anxiety disorder) Start: 09-24-2020 End: 09-24-2020 Office outpatient visit 25 minutes Scott Mcallister MD Work Phone: [facility] Comment on above: Bipolar 1 disorder, depressed, mild (HCC) (Primary Dx); Insomnia due to mental disorder; VICKIE (generalized anxiety disorder) Start: 08-31-2020 End: 08-31-2020 Refill Lidia Mahoney LPN [facility] Comment on above: 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; VICKIE (Generalized Anxiety Disorder) Start: 07-27-2020 End: 07-27-2020 Phys/qhp telephone evaluation 11-20 min Scott Mcallister MD Work Phone: [facility] Comment on above: Bipolar 1 disorder, depressed, mild (HCC) (Primary Dx); Insomnia due to mental disorder; VICKIE (Generalized Anxiety Disorder) Start: 05-17-2020 End: 05-17-2020 Office outpatient visit 15 minutes Scott Mcallister Work Phone: [facility] Comment on above: Bipolar 1 disorder, depressed, mild (HCC) (Primary Dx); VICKIE (Generalized Anxiety Disorder); Insomnia due to mental disorder Start: 04-06-2020 End: 04-06-2020 Phys/qhp telephone evaluation 11-20 min Upender Cammie Work Phone: [facility] Comment on above: Bipolar 1 disorder, depressed, mild (HCC); VICKIE (Generalized Anxiety Disorder); Insomnia due to mental disorder Procedures Date Procedure Procedure Detail Performing Clinician Start: 02-12-2024 AUDITORY FUNCTION TESTS Lilibeth Arlyn Pena CCC-A Work Phone: Start: 01-03-2022 CT of head [...] structure) OXANA CARVALHO Urine culture DO Justin rGant on Work Phone: Urine culture DO Justin Grant on Work Phone: Plan of Treatment Date Care Activity Detail Author Start: 02-05-2024 End: 02-05-2024 Patient encounter procedure 02/05/2024 10:30 AM EST Office Visit [facility] [address] [facility] [address] [place] [address] Angelo De La Cruz MD [address] [facility] [address] [place], [place] [id number] Arrived [facility] Comment on above: Arrived Start: 12-02-2023 Influenza vaccination Influenza Vacc ine (#1) [facility] Start: 11-01-2023 Influenza vaccination Flu vacc ine (Season Ended) [facility] Start: 05-19-2023 Screening for malign ant neoplasm of colon [facility] Start: 2022 Respiratory Syncytia l Virus (RSV) or age 60 yrs+ (1 - 1-dose 60+ series) Respiratory Syncytial Virus (RSV) or age 60 yrs+ (1 - 1-dose 60+ series) [facility] Start: 12-01-2022 COVID-19 Vaccine ( season) COVID-19 Vaccine ( season) [facility] Start: 05-30-2022 End: 05-30-2022 Patient encounter procedure 05/30/2022 Office Visit Psychiatry Scott Mcallister MD [address] [address] [facility] Start: 01-09-2022 End: 01-09-2022 Patient encounter procedure 01/09/2022 Office Visit Psychiatry Scott Mcallister MD [address] [address] [facility] Start: 01-05-2022 [facility] Start: 01-04-2022 Comprehensive metabo lic 2000 panel - Serum or Plasma [facility] Start: 01-04-2022 Lipid panel [facility] Start: 01-04-2022 Magnesium measurement [facility] Start: 01-04-2022 Phosphate [Mass/volu me] in Serum or Plasma [facility] Start: 01-04-2022 [facility] Start: 01-03-2022 Referral to psychiatrist [facility] Start: 01-03-2022 Hospital admission [facility] Start: 01-03-2022 [facility] Start: 12-01-2021 Influenza vaccination [facility] Start: 10-14-2021 End: 10-14-2021 Patient encounter procedure 10/14/2021 Office Visit Psychiatry Scott Mcallister MD [address] [address] [facility] Start: 07-28-2021 COVID-19 Vaccine (4 - Booster for Pfizer series) COVID-19 Vaccine (4 - Booster for Pfizer series) [facility] Start: 07-15-2021 End: 07-15-2021 Patient encounter procedure 07/15/2021 Office Visit Scott Moy MD [address] [facility] [address] [place] [id number] [facility] Start: 05-24-2021 COVID-19 Vaccine (4 - Booster for Pfizer series) COVID-19 Vaccine (4 - Booster for Pfizer series) [facility] Start: 04-18-2021 End: 04-18-2021 Patient encounter procedure 04/18/2021 Office Visit Scott Moy MD [address] [facility] [address] [place] [id number] [facility] Start: 01-12-2021 COVID-19 Vaccine (3 - Booster for Pfizer series) COVID-19 Vaccine (3 - Booster for Pfizer series) [facility] Start: 01-03-2021 End: 01-03-2021 Patient encounter procedure [facility] Start: 12-01-2020 Influenza vaccination [facility] Start: 09-24-2020 End: 09-24-2020 Patient encounter procedure 09/24/2020 Office Visit Scott Moy MD [address] [facility] [address] [place] [address] [phone] [facility] Start: 09-14-2020 End: 09-14-2020 Patient encounter procedure 09/14/2020 Office Visit Scott Moy MD [address] [facility] [address] [place] [address] [phone] [facility] Start: 09-10-2020 End: 09-10-2020 Office Visit 09/10/2020 Office Visit Scott Moy MD [address] [address] [phone] [facility] Start: 12-02-2019 Influenza vaccinatio n given Sequential Influenza Vaccine (#1) [facility] Start: 2012 Administration of he rpes zoster vaccine Zoster Vaccines (1 of 2) [facility] Start: 2012 Screening for malign ant neoplasm of colon [facility] Start: 2012 Shingles vaccine (1 of 2) Shingles vaccine (1 of 2) [facility] Start: 12-12-2007 Screening for malign ant neoplasm of colon [facility] Start: 2002 Lipid panel Lipids [facility] Start: 2002 Screening for malign ant neoplasm of breast [facility] Start: 1992 Screening for malign ant neoplasm of cervix [facility] Start: 12-12-1983 Screening for malign ant neoplasm of cervix Pap Smear [facility] Start: 1981 DTaP/Tdap/Td vaccine (1 - Tdap) DTaP/Tdap/Td vaccine (1 - Tdap) [facility] Start: 1980 Hepatitis C antibody , confirmatory test Hepatitis C Screening [facility] Start: 1980 Hepatitis C screening [facility] Start: 1978 COVID-19 Vaccine (1 of 2) COVID-19 Vaccine (1 of 2) [facility] Start: 1977 HIV screening [facility] Start: 1974 Depression Screen Depression Screen [facility] Start: 1965 History and physical examination, annual for health maintenance Wellness Visit [facility] Start: 1962 Screening for malign ant neoplasm of cervix Pap Smear [facility] Start: 1962 Screening for malign ant neoplasm of colon [facility] Start: 1962 Screening mammography Mammogram [facility] Start: 1962 Tetanus vaccination Tetanus: Every 1 0yrs [facility] Bacteria identified in Urine by Culture [facility] Work Phone: End: 10-14-2022 Complete blood count with white cell differential, manual CBC and Differential Lab Routine Bipolar 1 disorder, depressed, moderate (HCC) 1 Occurrences starting 10/14/2021 until 10/14/2022 [facility] Comment on above: 1 Occurrences starti ng 10/14/2021 until 10/14/2022 End: 10-14-2022 Comprehensive metabolic 2000 panel - Serum or Plasma Comprehensive Metabolic Panel Lab Routine Bipolar 1 disorder, depressed, moderate (HCC) 1 Occurrences starting 10/14/2021 until 10/14/2022 [facility] Work Phone: Comment on above: 1 Occurrences starti ng 10/14/2021 until 10/14/2022 End: 10-14-2022 Lipid 1996 panel - Serum or Plasma Lipid Panel Lab Routine Bipolar 1 disorder, depressed, moderate (HCC) 1 Occurrences starting 10/14/2021 until 10/14/2022 [facility] Comment on above: 1 Occurrences starti ng 10/14/2021 until 10/14/2022 Patient Education High Blood Pre ssure (DC) Urinary Tract Infection, Adult (DC) Acute Kidney Injury (DC) Cefuroxime Hydralazine [facility] Work Phone: Patient referral [facility] Work Phone: Immunizations Immunization Date Immunization Notes Care Provider [facility] 01-05-2022 influenza, injectabl e, quadrivalent, preservative free DO Justin Dale Work Phone: [facility] 01-05-2022 influenza virus vaccine, unspecified formulation Scott Mcallister MD Work Phone: [facility] 03-29-2021 COVID-19 mRNA, Comirnaty (Pfizer) DO Ujstin Francisco Work Phone: [facility] 07-13-2020 COVID-19 mRNA, Comirnaty (Pfizer) DO [facility] Work Phone: [facility] 06-21-2020 COVID-19 mRNA, Comirnaty (Pfizer) DO [facility] Work Phone: [facility] Payers Date Payer Category Payer Private Health Insurance [employer] [id number] 2022 Self-pay 2014 Unknown [id number] 2014 Unknown MMO [employer] S UPER[employer] PPO [id number] 2014-Present [phone] [address] [place] [address] [id number] 1962 Unknown [id number] 2.16.840.1.333278.3.579.2. 593 1962 Unknown [id number] 2.16840.1.394644.3.579.2. 593 1962 Unknown [id number] 2.16840.1.893772.3.579.2. 593 1962 Unknown [id number] 2.16840.1.003958.3.579.2. 593 1962 Unknown [id number] 2.16.840.1.067092.3.579.2. 903 1962 Unknown [id number] 2.16840.1.867376.3.579.2. 903 1962 Unknown [id number] 2.16.840.1.174195.3.579.2. 903 1962 Unknown [id number] 2.16.840.1.838771.3.579.2. 903 1962 Unknown [id number] 2.16.840.1.562736.3.579.2. 903 1962 Unknown [id number] 2.16.840.1.276634.3.579.2. 903 1962 Unknown [id number] 2.16.840.1.681672.3.579.2. 903 1962 Unknown [id number] 2.16.840.1.685890.3.579.2. 174 1962 Unknown [id number] 2.16.840.1.417969.3.579.2. 174 1962 Unknown [id number] 2.16.840.1.819440.3.579.2. 174 1962 Unknown [id number] 2.16.840.1.974856.3.579.2. 174 1962 Unknown [id number] 2.16.840.1.725746.3.579.2. 1259 1962 Unknown [id number] 2.16.840.1.817836.3.579.2. 1259 1962 Unknown [id number] 2.16.840.1.203813.3.579.2. 1259 1962 Unknown [id number] 2.16.840.1.022725.3.579.2. 727 1962 Unknown [id number] 2.16.840.1.867205.3.579.2. 727 1962 Unknown [id number] 2.16.840.1.831141.3.579.2. 727 1959 Unknown [id number] Unknown [id number] 2.16.840.1.618631.3.579.2. 531 Social History Date Type Detail Facility Start: 04-06-2020 End: 01-30-2024 Tobacco smoking status NHIS Former smoker [facility] Start: 04-06-2020 End: 01-30-2024 Tobacco use and exposure Never used [facility] Start: 04-06-2020 End: 02-12-2024 Alcohol intake Ex-drinker (finding) [facility] Start: 1960 Sex Assigned At Not on file [facility] Exposure to SARS-CoV-2 (event) Unable to assess [facility] Start: 07-09-2021 End: 05-24-2022 Exposure to SARS-CoV-2 (event) Not sure [facility] Start: 01-03-2022 Tobacco smoking status NHIS Never smoked tobacco (finding) [facility] Start: 1960 Sex Assigned At Female [facility] End: 04-02-2000 History of tobacco use Current smoker [facility] Start: 05-30-2022 End: 02-12-2024 History of Social function [facility] Start: 05-30-2022 End: 02-12-2024 Tobacco use panel [facility] Tobacco smoking status Never [facility] End: 04-02-2000 History of tobacco use Cigarette Smoker [facility] Tobacco smoking status NHIS Tobacco smoking consumption unknown [facility] Goals Date Patient Goal Desired Activity /State Functional Status Date Assessment Result Facility 11-27-2023 Functional Status N/A [facility] 08-21-2023 Functional Status N/A [facility] 01-05-2022 Functional status Patient at Baseline [facility] Work Phone: Mental Status Date Assessment Result Facility 01-05-2022 Cognitive function Cognitive Sta tus Patient at Baseline [facility] Work Phone: Clinical Notes 07-27-2020 to 02-12-2024 Lilibeth Pena [facility] - 02/12/2024 11:00 AM [facility] [...] Type A tympanogram documented in this encounter [facility] 02-12-2024 History of Present illness Narrative [...] Date Noted Bipolar 1 disorder, depressed, mild ([facility]) 04/06/2020 VICKIE (generalized anxiety disorder) ([facility]) 04/06/2020 Insomnia due to mental disorder 04/06/2020 MDD (major depressive disorder) ([facility]) 01/18/2016 Severe episode of recurrent major depressive disorder, without psychotic features (HCC) ([facility]) 01/18/2016 Resolved Ambulatory Problems Diagnosis Date Noted [...] or split. cholecalciferol (Vitamin D-3) 50 MCG (1999 [place]) tablet Take 2,000 Units by mouth [...] Recommend annual audio documented in this encounter [facility] 02-05-2024 History of Present illness Narrative [...] Date Noted Bipolar 1 disorder, depressed, mild ([facility]) 04/06/2020 VICKIE (generalized anxiety disorder) ([facility]) 04/06/2020 Insomnia due to mental disorder 04/06/2020 MDD (major depressive disorder) ([facility]) 01/18/2016 Severe episode of recurrent major depressive disorder, without psychotic features ([facility]) ([facility]) 01/18/2016 Resolved Ambulatory Problems Diagnosis Date Noted [...] week to remove documented in this encounter [facility] 11-27-2023 Hospital Discharge instructions Patient Education [...] (electrical nerve stimulation). ?For women, using a lead medical technologist to prevent urine leaks. This [...] right after experiencing incontinence. General instructions Take zpph-laq-ngabdtb and prescription medicines only as told by [...] important. Where to find more information National [place] of Diabetes and Digestive and Kidney Diseases: www.niddk.nih.gov [employer]: www.urologyhealth.org Contact a health care [...] provider. Document Revised: 10/22/2020 Document Reviewed: 10/22/2020 [employer] Patient Education 2022 [employer]. 11/27/2023 15:20:11 Overactive Bladder, Adult Overactive Bladder, [...] your health care provider. General instructions Take hohp-fyd-qemaxou and prescription medicines only as told by [...] provider. Document Revised: 12/06/2020 Document Reviewed: 12/06/2020 [employer] Patient Education 2022 [employer]. Follow Up Care 08/21/2023 10:37:58 With:DEVEN GUTIERREZ, OXANA Schwartz, URL Address: [address] [place] [address] When: Unknown Comments:1 year f/up [facility] 11-27-2023 Note Patient Education Obstetrics and Gynecology [...] health care provider. General instructions ? Take bvgw-pyp-imqlfxg and prescription medicines only as told by [...] your health care (more content not included)... [facility] 08-21-2023 Note Chief Complaint New Pt. HPI [...] metformin. 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 1. [...] Trospium ER 60mg qd. Rx sent to [facility]. -Increase clear fluid intake -Avoid bladder irritants 3. Chronic kidney disease (N18.9: Chronic kidney disease, unspecified) 05/02/23 - BUN 17. Cr 1.86. GFR 28. [facility] 05/04/23 [facility] (ordered by Dr. Arnett due [...] Renal cyst (N28.1: Cyst of kidney, acquired) [facility] 05/04/23 [facility] - 1 cm benign-appearing R renal cyst and 1 cm benign-appearing L renal cyst. -Simple cysts do not require monitoring Follow-up With When Contact Information OXANA CARVALHO PA-C, URL [address] [place] [address] [phone] Additional Instructions: 3 mos (new med) Patient Education Urinary Incontinence Documentation recorded by the magalisibsusana Gunderson accurately reflects the (more content not included)... [facility] Comment on above: Result Comment: Elec tronically [...] (electrical nerve stimulation). ?For women, using a lead medical technologist to prevent urine leaks. This [...] right after experiencing incontinence. General instructions Take nvgs-qbc-kiyefdx and prescription medicines only as told by [...] important. Where to find more information National [place] of Diabetes and Digestive and Kidney Diseases: www.niddk.nih.gov [employer]: www.urologyhealth.org Contact a health care [...] provider. Document Revised: 10/22/2020 Document Reviewed: 10/22/2020 S[employer] Patient Education 2022 [employer]. Follow Up Care 05/07/2023 11:41:01 With:OXANA CARVALHO PA-C, URL Address: [address] [place] [address] [facility] [place] [address] [phone] When: Unknown Comments:3 mos (new med) [facility] 05-30-2022 History of Present illness Narrative [...] Continue with same provider ( Rocky @ [facility] in [place]) Follow up as scheduled or return early if needed. School or community referral: None Treatment Goals and Objectives discussed. Other Referrals/Consults/Psychological Testing: None Scott Mcallister documented in this encounter [facility] 03-13-2022 History of Present illness Narrative BEHAVIORAL [...] Continue with same provider ( Rocky @ [facility] in [place]) Follow up as scheduled or return early if needed. School or community referral: None Treatment Goals and Objectives discussed. Other Referrals/Consults/Psychological Testing: None Scott Mcallister documented in this encounter [facility] 01-05-2022 Discharge summary Note Date/Time January 05, 2022 12:08pm [facility] [address] [place] [address] Discharge Summary Signed Patient: Kathy Porter MR#: [id number] : 1960 Acct:[id number] Age/Sex: 61 / F Adm Date: 2 Loc: Room: [address] [place] [address]: Henry Burnett MD Copies to: [...] % (Auto) 50.3, Lymph % (Auto) 33.1, [place] % (Auto) 12.5, Eos % (Auto) 3.5, Baso % (Auto) 0.6, Neut # (Auto) 2.6, Lymph # (Auto) 1.7, [place] # (Auto) 0.7, Eos # (Auto) 0.2, [...] if needed.) Documented By: Henry Burnett MD 01/05/2203 03 Signed By: <Electronically signed by Henry Burnett MD> 01/05/22 5163 [facility] Work Phone: 1(186) 433-320610-05-2022 Progress note Author Henry Burnett [facility] January 04, 2022 4:20pm Note Date/Time January 04, 2022 4: 20pm [facility] [address] [place] [address] Hospitalist Progress Note Signed Patient: Kathy Porter MR#: [id number] : 1960 Acct:[id number] Age/Sex: 61 / F Adm Date: 2 Loc: Room: [address] [place] [address] Type: ADM INOo Attending Dr: Henry Burnett [...] Flu Vac Quad (36month+)Pf 0.5 Ml Syringe [id number] IM 01/04/22 18:34 .ONCE ONE Irbesartan 300 [...] <Electronically signed by Henry Burnett MD> 01/04/22 9136 [facility] Work Phone: 1(369) 146-265110-05-2022 Consult note Author Graham Helm [facility] January 04, 2022 2:08pm Note Date/Time January 04, 2022 2: 04pm [facility] [address] [place] [address] Psychiatry Consult Note Signed Patient: Kathy Porter MR#: [id number] : 1960 Acct:[id number] Age/Sex: 61 / F Adm Date: 2 Loc: Room: [address] [place] [address] Type : ADM INOo Attending Dr: Henry [...] stated that she sees a psychiatrist in [place]. She reported that he is helping her [...] Appearance Clear Urine pH 5.5 Ur Specific [place] 1.012 Urine Protein Negative Urine Glucose (UA) [...] Color Urine Appearance Urine pH Ur Specific [place] Urine Protein Urine Glucose (UA) Urine Ketones Urine Occult Blood Urine Nitrite Ur Leukocyte Esterase Urine RBC Urine WBC Valproic Acid 59.0 01/04/22 10:13 RBC Hgb Hct MCV MCH MCHC RDW Plt Count MPV Sodium Potassium Chloride Carbon Dioxide Anion Gap BUN Creatinine Calcium Total Bilirubin AST ALT Alkaline Phosphatase Total Protein Albumin Urine Color Urine Appearance Urine pH Ur Specific [place] Urine Protein Urine Glucose (UA) Urine Ketones [...] <Electronically signed by Graham Helm MD> 01/04/22 1407 [facility] Work Phone: 1(943) 712-561910-04-2022 History and physical note Author Henry Burnett [facility] January 03, 2022 6:58pm Note Date/Time January 03, 2022 4: 55pm [facility] [address] [place] [address] Hospitalist H&P Signed Patient: Kathy Porter MR#: [id number] : 1960 Acct:[id number] Age/Sex: 61 / F Adm Date: 2 Loc: 3T Room: [address] [place] [address] Type: ADM INOo Attending Dr: Henry Burnett [...] 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 Decision was to admit the patient [...] % (Auto) 22.3 % (.) 01/03/22 14:35 [place] % (Auto) 8.9 % (.) 01/03/22 14:35 Eos % (Auto) 1.4 % (.) 01/03/22 14:35 Baso % (Auto) 0.6 % (.) 01/03/22 14:35 Neut # (Auto) 4.3 x10E3/uL (1.8-7.7) 01/03/22 14:35 Lymph # (Auto) 1.4 x10E3/uL (1.00-4.8) 01/03/22 14:35 [place] # (Auto) 0.6 x10E3/uL (0.0-0.8) 01/03/22 14:35 [...] pH 5.5 (5.0-9.0) 01/03/22 14:20 Ur Specific [place] 1.012 (1.001-1.030) 01/03/22 14:20 Urine Protein Negative [...] <Electronically signed by Henry Burnett MD> 01/03/22 8109 [facility] Work Phone: 1(135) 636-768907-15-2022 History of Present illness Narrative* Scott Mcallister [...] Continue with same provider ( Rocky @ [facility] in [place]) Follow up as scheduled or return early if needed. School or community referral: None Treatment Goals and Objectives discussed. Other Referrals/Consults/Psychological Testing: None Scott Mcallister documented in this [id number] History of Present illness Narrative* Scott Mcallister [...] Continue with same provider ( Rocky @ [facility] in [place]) Follow up as scheduled or return early if needed. School or community referral: None Treatment Goals and Objectives discussed. Other Referrals/Consults/Psychological Testing: None Scott Mcallister documented in this [id number] Miscellaneous Notes* Telephone Encounter - Sarah Leigh MA - 05/16/2021 11:04 AM EST Pt is completely out and wants a 30 day supply sent to the local pharmacy. Another refill encounterto follow with a 90 day supply to go to [facility]. documented in this [id number] History of Present illness Narrative* Scott Mcallister [...] the patient Scott Mcallister documented in this [id number] History of Present illness Narrative* Scott Mcallister MD - 07/27/2020 2:43 PM EDT Telephone Visit Via Phone Call [facility] [phone] Telephone Visit [facility] 07/27/2020 Scott Mcallister MD Provider Location: [facility] Patient Location Workforce Advisor: None Patient Location: Patient's Home Patient: Kathy [...] there are inherent diagnostic limitations compared to nzqf-oo-xncr evaluations. We elected toproceed with the telephone [...] and Plan of Care. documented in this encounterOhHealthEvaluation + Plan note Future Appointments Appointment Date:11/27/2023 03:00:00 PM Scheduled Provider:OXANA CARVALHO PA-C Location:[facility] Appointment Type:URO Office Visit [facility] evaluation note* Diagnosis Bipolar 1 disorder, [...] Altered mental status acute Coarse tremors acute [facility] Work Phone: Evaluation note* Diagnosis Onset Date Resolution Status Acute encephalopathy acute NAEEM (acute kidney injury) ac jessica Altered mental status acute Coarse tremors acute Hypertensive urgency acute UTI (urinary tract infection) acute [facility] Work Phone: Evaluation note* Diagnosis Bipolar [...] initial encounter- Primary documented in this encounter [facility] HealthcareEvaluation note* Diagnosis Sudden right hearing loss- Primary Unspecified sudden hearing loss Foreign body of right ear, initial encounter documented in this encounter [facility] HealthcareEvaluation note* Diagnosis Sensorineural hearing loss (SNHL) of both ears- Primary Ear pressure, right documented in this encounter [facility] HealthcareHospital course Narrative No data available for this section [facility] Hospital Discharge instructions Additional Instructions -Take Ceftin antibiotics treatment for UTI for 5 more days -Take new blood pressure medicine Hydralazine 25 mg three times a day. Hold if your BP <100/60 -Follow up with your primary doctor for blood pressure control and adjustment in medications if needed -[facility] Work Phone: Progress note No data available for this section [facility] History of Present Illness * Scott Mcallister MD - 04/09/2020 2:42 PM EST Telephone Visit Via Phone Call [facility] [address] [facility] [phone] Telephone Visit [facility] 04/06/2020 Scott Mcallister MD Provider Location: [place] Patient Location Workforce Advisor: None Patient Location: Patient's Home Patient: Kathy [...] there are inherent diagnostic limitations compared to iwvo-dw-gncf evaluations. We elected toproceed with the telephone [...] FoundDocuments on File Type Date Recorded Patient Education Department Registrar Expl anation Advance Directives and Living Will [...] Care Teams (unrecognized sec tion and content) Call Center Coordinator Relationship Specialty Start Date End Date Peter Arnett MD [address] [place] [address] PCP - General Family Medicine 04/05/20 Call Center Coordinator Relationship Specialty Start Date End Date Peter Arnett MD [address] [place] [address] PCP - General Family Medicine 04/05/20 Call Center Coordinator Relationship Specialty Start Date End Date Peter Arnett MD [address] [place] [address] PCP - General Family Medicine 04/05/20 Call Center Coordinator Relationship Specialty Start Date End Date Peter Arnett MD [address] [place] [address] PCP - General Family Medicine 04/05/20 Call Center Coordinator Relationship Specialty Start Date End Date Peter Arnett MD [address] [place] [address] PCP - General Family Medicine 04/05/20 Team [...] Active Graham Helm MD Other Provider Active Call Center Coordinator Relationship Specialty Start Date End Date Peter Arnett MD [address] [place] [address] PCP - General Family Medicine 04/05/20 Call Center Coordinator Relationship Specialty Start Date End Date Peter Arnett MD [address] [place] [address] PCP - General Family Medicine 04/05/20 Call Center Coordinator Relationship Specialty Start Date End Date Peter Arnett MD [address] [place] [address] PCP - General Family Medicine 04/05/20 Call Center Coordinator Relationship Specialty Start Date End Date Peter Arnett MD [address] [place] [address] PCP - General Family Medicine 04/05/20 Call Center Coordinator Relationship Specialty Start Date End Date Peter Arnett MD [address] [place] [address] PCP - General Family Medicine 04/05/20 Call Center Coordinator Relationship Specialty Start Date End Date Peter Arnett MD [address] [phone] PCP - General Family Medicine 02/05/24 Valerie Moss MD [address] [place] [address] Referring Physician Family Medicine 01/29/24 Call Center Coordinator Relationship Specialty Start Date End Date Peter Arnett MD [address] [place] [address] PCP - General Family Medicine 02/05/24 Valerie Moss MD [address] [place] [address] Referring Physician Family Medicine 01/29/24 Call Center Coordinator Relationship Specialty Start Date End Date Peter Arnett MD [address] [place] [address] PCP - General Family Medicine 02/05/24 Valerie Moss MD [address] [place] [address] Referring Physician Family Medicine 01/29/24 Call Center Coordinator Relationship Specialty Start Date End Date Peter Arnett MD [address] [place] [phone] PCP - General Family Medicine 02/05/24 Valerie Moss MD [address] [place] [address] Referring Physician Family Medicine 01/29/24 Call Center Coordinator Relationship Specialty Start Date End Date Peter Arnett MD [address] [place] [address] PCP - General Family Medicine 09/26/23 Goals (unrecognized section and content) Goals may be documented in a n alternate section No data available for this section No data available for this section INFORMATION SOURCE (unrecogn ized section and content) DATE CREATED AUTHOR 01/23/2022 [facility] DATE CREATED AUTHOR AUTHOR'S ORGANIZ ATION 05/06/2022 [facility] DATE CREATED AUTHOR AUTHOR'S ORGANIZ ATION 06/01/2022 [facility] DATE CREATED AUTHOR AUTHOR'S ORGANIZ ATION 11/06/2023 [facility] DATE CREATED AUTHOR AUTHOR'S ORGANIZ ATION 02/13/2024 [facility] DATE CREATED AUTHOR AUTHOR'S ORGANIZ ATION 06/17/2024 [facility] FOR RECORDS PERTAINING TO PATIENTS WHO [...] BE BASED ON THE PRIMARY CLINICAL RECORDS. [facility] [employer] [facility]. provides no warranty or guarantee of the accuracy or completeness of information in this document.
--- NOTE | 2024-06-18 15:41 | XR_ITS ---
The [address] [address] Patient Name: KATHY PORTER MRN: [id number] date: 1960 Sex: F Assigned Patient Location: LAB Current Patient Location: LAB Accession/Order Number: [id number] Exam Date: 06/18/2024 18:40 Report Date: 06/18/2024 18:41 At the request of: VICKY SAUCEDA MD Procedure: XR chest 2V Chest 2 views CLINICAL HISTORY: Acute Bronchiolitis COMPARISON: Chest 07/08/2019 FINDINGS: Heart normal in size. Lungs are clear. No free air. XR/XR chest 2V IMPRESSION: NO ACUTE CARDIOPULMONARY ABNORMALITY. Impression dictated by: Cesar Butler Jr., D.OMarky06/18/2024 6:41 PM Dictation Location: [facility] Electronically authenticated by: [id number] Y Date: 06/18/2024 18:41
--- NOTE | 2024-06-18 15:42 | XR_ITS ---
The [address] [address] Patient Name: KATHY PORTER MRN: [id number] date: 1960 Sex: F Assigned Patient Location: LAB Current Patient Location: LAB Accession/Order Number: [id number] Exam Date: 06/18/2024 18:41 Report Date: 06/18/2024 18:43 At the request of: VICKY SAUCEDA MD Procedure: XR foot LT min 3V LEFT FOOT - 3 views CLINICAL HISTORY: Left foot pain after fall 6 weeks ago. COMPARISON: None FINDINGS: Bones are grossly demineralized. Soft tissue swelling is present. There appears to be subluxation of the second metatarsal with respect to the cuneiforms possibly representing Lisfranc injury. Mild degenerative changes without bony erosions. XR/XR foot LT min 3V IMPRESSION: SUBLUXATION OF THE SECOND METATARSAL WITH RESPECT TO THE CUNEIFORMS POSSIBLY REPRESENTING LISFRANC INJURY. NO FRACTURE LINE IS SEEN. Impression dictated by: Cesar Butler Jr., D.O.06/18/2024 6:43 PM Dictation Location: [place] [address] Electronically authenticated by: [id number] Y Date: 06/18/2024 18:43
[2024-06-18 15:48] LABS: Basophils Absolute Auto 0.1 10^3/uL (0.0-0.1); Basophils Percent Auto 0.8 % (0.2-2.0); Eosinophils Absolute Auto 0.1 10^3/uL (0.0-0.7); Eosinophils Percent Auto 1.9 % (0.9-7.0); Hematocrit 39.7 % (36.0-48.0); Immature Granulocytes Abs Auto 0.01 10^3/uL (0.00-0.03); Immature Granulocytes Pct Auto 0.2 % (0.0-0.5); Lymphocytes Absolute Auto 1.9 10^3/uL (1.2-3.8); Lymphocytes Percent Auto 30.3 % (20.5-60.0); Mean Corpuscular HGB Conc 32.7 g/dL (29.9-35.2); Mean Corpuscular Volume 91.5 fL (81.0-99.0); Mean Platelet Volume 10.3 fL (9.5-13.5); Monocytes Absolute Auto 0.5 10^3/uL (0.3-0.8); Monocytes Percent Auto 8.6 % (1.7-12.0); Neutrophils Absolute Auto 3.6 10^3/uL (1.4-6.5); Neutrophils Percent Auto 58.2 % (43.0-75.0); Platelet Count 229 10^3/uL (150-450); Red Blood Count 4.34 10^6/uL (4.20-5.40); Red Cell Distribution Width 14.6 % (11.0-15.0); White Blood Count 6.2 10^3/uL (4.0-11.0)
[2024-06-18 17:16] LABS: Alanine Aminotransferase 27 U/L (14-59); Albumin Globulin Ratio 1.1; Albumin Level 3.6 g/dL (3.4-5.0); Alkaline Phosphatase 81 U/L (46-116); Anion Gap 11.5; Aspartate Amino Transferase 16 U/L (15-37); BUN Creatinine Ratio 13.6; Bilirubin Total 0.4 mg/dL (0.2-1.0); Calcium 9.1 mg/dL (8.5-10.1); Carbon Dioxide 29.2 mmol/L (21.0-32.0); Chloride 105 mmol/L (98-107); Estimated GFR (African America 39 (>=60 mL/min/1.73m^2); Estimated GFR (Non-African Ame 32 (>=60 mL/min/1.73m^2); Free T3 2.68 pg/mL (2.18-3.98); Globulin 3.4 g/dL; Glucose 95 mg/dL (74-106); Potassium 4.7 mmol/L (3.5-5.1); Sodium 141 mmol/L (136-145); Thyroid Stimulating Hormone 2.198 uIU/mL (0.358-3.740)
== END 2024-06-18 15:22 | disposition home or self-care (01) ==
LOC: LAB 15:22
PROVIDERS: PCP Family Medicine; Visit Provider Family Medicine
DX: M79.672 Pain in left foot (principal); J21.9 Acute bronchiolitis, unspecified; E03.9 Hypothyroidism, unspecified
CPT/HCPCS: 36415; 71046; 73630; 80053; 84436; 84443; 84481; 85025

== ENCOUNTER 2024-06-26 13:02 | Outpatient (OUT) | payer OTHER, SELFPAY | END 2024-06-26 13:03 | disposition home or self-care (01) | LOC: PST 13:02 | PROVIDERS: PCP Family Medicine; Visit Provider Surgery | DX: Z01.818 Encounter for other preprocedural examination (principal); Z12.11 Encounter for screening for malignant neoplasm of colon ==

== ENCOUNTER 2024-06-27 08:48 | Outpatient (OUT) | payer OTHER, SELFPAY ==
--- NOTE | 2024-06-27 08:51 | MM_ITS ---
Patient Name: KATHY PORTER MR#: [id number] : 1960 Exam Date: 06/27/2024 Ordering Doctor: DR Peter Arnett . RADIOLOGY REPORT PROCEDURE: MM TOMOSYNTHESIS SCREENING BI COMPARISON: MM TOMOSYNTHESIS SCREENING BI, 04/11/2023. MG MAMM SHUKRI DIAG FU, 10/01/2017. MG MAMM SCREEN SHUKRI W CAD, 09/21/2017. INDICATIONS: Screening Calculator Name NCI Breast Cancer Risk Assessment Tool 5 Year Breast Cancer Risk 2.20% Lifetime Breast Cancer Risk 10.60% Personal Breast Cancer No Personal Ovarian Cancer No Treatments None Family Cancers Aunt-maternal with breast cancer at age ~48. LOCATION: [facility] BREAST COMPOSITION: The breasts are heterogeneously dense,which may obscure small masses. FINDINGS: RIGHT BREAST: No significant suspicious finding. LEFT BREAST: No significant suspicious finding. DIAGNOSTIC CATEGORY 1--NEGATIVE. RECOMMENDATIONS: ROUTINE MAMMOGRAM AND CLINICAL EVALUATION IN 12 MONTHS. PLEASE NOTE: A NORMAL MAMMOGRAM DOES NOT EXCLUDE THE POSSIBILITY OF BREAST CANCER. A CLINICALLY SUSPICIOUS PALPABLE LUMP SHOULD BE BIOPSIED. Dictated by: Ethan Portillo DO on 06/27/2024 at 16:13 Approved by: Ethan Portillo DO on 06/27/2024 at 16:20
== END 2024-06-27 08:49 | disposition home or self-care (01) ==
LOC: MAMMO 08:48
PROVIDERS: PCP Family Medicine; Visit Provider Family Medicine
DX: Z12.31 Encounter for screening mammogram for malignant neoplasm of breast (principal); Z80.3 Family history of malignant neoplasm of breast
CPT/HCPCS: 77063; 77067

== ENCOUNTER 2024-07-02 06:55 | Day surgery (SDC) | payer OTHER, SELFPAY ==
--- NOTE | 2024-07-02 | OP_ITS ---
OPERATION DATE: 07/02/2024 PREOPERATIVE DIAGNOSIS: Colorectal screening. POSTOPERATIVE DIAGNOSIS: Normal colonoscopy to cecum. PROCEDURE: Colonoscopy to cecum. SURGEON: Neel Wu M.D. ANESTHESIA: Monitored anesthesia care. ESTIMATED BLOOD LOSS: Zero INDICATIONS AND CONSENT: Patient is a 63-year-old female presents for colorectal screening. Indications, risks, benefits, alternatives of proceeding with colonoscopy were explained extensively to the patient, including the risks of bleeding, colon perforation or anesthetic complications. All of her questions were answered. Informed consent was obtained. PROCEDURE: Patient brought to the operating room, placed in the left lateral decubitus position. Monitored anesthesia care was provided. Rectal exam was performed which showed no masses or blood. There was noted to be an elongated, approximately 3 cm anal skin tag with no inflammation. The scope was inserted into the anal canal. Under direct visualization was advanced. With the aid of abdominal compression, it was advanced to the cecum where cecal markings were clearly identified. There was noted to be a good prep. There was noted to be redundancy of the colon with spasm. Upon withdrawal of the scope, mucosal surfaces were carefully examined. There were no mass lesions or polyps. No inflammatory changes or ulcerations. There was mild sigmoid diverticulosis, without inflammatory changes or scarring. The scope was retroflexed in the anal canal. There was no significant hemorrhoidal disease. Scope was then withdrawn. Patient tolerated procedure well, was sent to recovery room in good condition. f/u screening colonoscopy should be in 10 years. CC: Matthew Membreno
--- OUTSIDE RECORDS SUMMARY | 2024-07-02 06:59 | XMS_ITS | CCD ---
Author Organization [facility] Care Team Providers Care Head Rigger Name Role Phone Peter Arnett Primary Care Provider [phone] DO Justin Francisco Emergency Provider MD Peter Arnett Primary Care Provider [phone] MD Henry Burnett Admit Provider [phone] MD Henry Burnett Attending Provider MD Graham Helm Other Provider [phone] PETER ARNETT Admitting Unavailable DR [...] Primary Care Unavailable GEHLOT, UPENDER Attending Unavailable HOY, PETER Primary Care Unavailable GEHLOT, UPENDER Attending Unavailable HOY, PETER Primary Care Unavailable HOY, PETER Primary Care Unavailable BURAK, NELLIE Attending Unavailable GEHLOT, UPENDER Attending Unavailable HOY, PETER Primary Care Unavailable HOY, PETER Primary Care Unavailable GEHLOT, UPENDER Attending Unavailable Hoy, Peter Primary Care Physician DESIRE DEGROOT Referring Unavailable HOY, PETER M Primary Care Unavailable HENNY DEGROOT Referring Unavailable HOY, PETER M Primary Care Unavailable DESIRE DEGROOT Referring Unavailable HOY, PETER M Primary Care Unavailable DESIRE DEGROOT Referring Unavailable HOY, PETER M Primary Care Unavailable Valerie Moss MD Unavailable Peter Arnett MD Primary Care Provider [phone] ANGELO DE LA CRUZ Attending Unavailable VALERIE MOSS Referring Unavailable ANGELO DE LA CRUZ Attending Unavailable LILIBETH PENA Attending Unavailable Peetr Arnett MD Primary Care Provider [phone] MATT CARVALHO Attending Ginaab beronica Arnett, Peter Referring Unavailable MATT CARVALHO Attending UnavailTerrie Tilley Attending Unavailable Hoy, Peter Referring Unavailable MATT CARVALHO Attending Roxy loco Allergies Allergy Classification Reported Allergen(s) Allergy Type Date of Onset Reaction(s) Facility Sulfonamides (antibiotic) (3 sources) Sulfonamides (Antibiotic) Drug Allergy 2 Rash, Swelling [facility] (17 sources) Sulfonamides (Antibiotic); Translations: [Sulfa (Sulfonamide Antibiotics)] Propensity to adverse reactions to drug 2 Rash, Swelling [facility] (1 source) Sulfonamides (Antibiotic) Drug allergy (disorder) 3 [facility] [place] [facility] (3 sources) Sulfonamides (Antibiotic); Translations: [sulfa drugs] Drug allergy Cutaneous eruption (morphologic abnormality) [facility] (7 sources) Sulfonamides (Antibiotic) Drug Intolerance 2 Rash, Swelling [facility] Work Phone: Medications Current Medications Medication [...] Start: 01-26-2016 take 1 tablet by [facility] once daily pantoprazole (PROTONIX) 40 MG tablet [...] qAM, # 90 cap(s), Refills(s) 3, Pharmacy: [facility], 158, cm, 11/27/23 15:03:00 EDT, Height/Length Dosing, 88, kg, 11/27/23 15:03:00 EDT, Weight Dosing Start Date: 11/27/23 Status: Ordered Start: 08-21-2023 take 1 capsule by [facility] daily in the morning trospium 60 mg oral capsule, extended release 60 mg = 1 cap(s), Oral, qAM, # 30 cap(s), Refills(s) 11, Pharmacy: [facility]/pharmacy #[id number], 158, cm, 08/21/23 10:13:00 EDT, Height/Length Dosing, 88.5, kg, 08/21/23 10:13:00 EDT, Weight Dosing Start Date: 08/21/23 Status: Ordered take 3 tablets by [facility] once daily trospium (Sanctura) 20 MG tablet Take 60 mg by mouth Daily Active divalproex sodium 500 mg delayed release oral tablet (3 sources) Mood Stabilizer, Anti-epileptic Agent Start: 01-03-2022 take 1 tablet by mouth once daily Divalproex (Depakote) 500 mg Tablet,Delayed Release (Dr/Ec) Active 500 MG PO Daily before supper January 03, 2022 12:00am Start: 10-14-2021 take 1 tablet by [facility] once daily divalproex (DEPAKOTE ER) 500 MG [...] # 45 tab(s), Refills(s) 1, Pharmacy: [facility], 158, cm, 12/15/19 14:46:00 EDT, [...] Mild sensorineural hearing loss above 4K Hz [facility] Ambulatory Visit Summaryon 0 11-27-2023 Ambulatory Visit [...] Comments: 1 year f/up Where: [address] [place] [address] Medications What How Much When Instructions Unchanged trospium (trospium 60 mg oral capsule, extended release) 1 Capsules By Mouth Once a day (in the morning) Pickup at [facility] Unchanged amlodipine (Norvasc 10 mg [...] physician if questions or concerns Pharmacy Information [facility]: [address] [place], [place] [id number] [phone] Allergies sulfa drugs (Rash) Problems Ongoing - [...] the ability (more content not included)... Normal [facility] Urology Office/Clinic Noteon 11-27-2023 Urology Office/Clinic Note [...] metformin. 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 1. [...] ER 60mg daily, refills [facility] to [facility] -PVR in 2-3 weeks after restarting trospium -Increase clear fluid intake -Avoid bladder irritants -1 year f/up Ordered: E&M of Est. Patient Moderate 30-39 Min 93580 2. Kidney stones (N20.0: Calculus of kidney) [...] E&M of Est. Patient Moderate 30-39 Min 81563 3. Renal cyst (N28.1: Cyst of kidney, acquired) RAMONA 05/04/23 [facility] - 1 cm benign-appearing R renal cyst and 1 cm benign-appearing L renal cyst. -Simple cysts do not require monitoring Ordered: E&M of Est. Patient Moderate 30-39 Min 76751 Orders: trospium, 60 mg = 1 cap(s), Oral, qAM, # 90 cap(s), Refills(s) 3, Pharmacy: [facility], 158, cm, 11/27/23 15:03:00 EDT, Height/Length Dosing, 88, kg, 11/27/23 15:03:00 EDT, Weight Dosing Follow-up With When Contact Information DEVEN GUTIERREZ, OXANA Schwartz, URL [address] [place] [address] Additional Instructions: 1 year f/up with KUB Patient Education Urinary Incontinence Overactive Bladder, Adult Documentation recorded by the scribsusana Solo accurately reflects the services(s) I performed [...] Procedure/Surgical H (more content not included)... Normal [facility] Comment on above: Result Comment: Elec tronically [...] 3. Right effusion has resolved. Interpreted by: Prahsant Birch Jr., MD Signed by: Prashant Birch Jr., MD 11/02/23 Final result [facility] XR KNEE RIGHT (1-2 VIEWS)on 09-28-2023 [...] Prashant Birch Jr., MD 09/28/23 Final result [facility] Physician Referralon 024 Physician Referral [id number]#1. 00TIFF [facility] Screenson 08-22-2023 Screens [id number]# 1.00TIFF [facility] Ambulatory Visit Summaryon [...] GUTIERREZ, MARLENE BACON When: Comments: 3 mos ([facility]) Where: [address] [place] [address] [phone] Medications What How Much When Instructions Unchanged [...] 2 tab(s (more content not included)... Normal [facility] Patient Educationon 08-21-19 Patient Education Urology Urinary [...] stimulation). ? For women, using a medical records coordinator to prevent urine leaks. This is a [...] urine. ? (more content not included)... Normal [facility] Reminderson 08-21-2023 Reminders - From: Evy Gunderson To: KRISSY Carvalho; Sent: 08/21/2023 10:39:44 EDT Show up: 06/20/2024 10:38:00 EDT Subject: KUB and RAMONA Reminder Message Pt needs RAMONA and KUB prior to appt in 1 year. Typically goes to [facility]. Normal [facility] XR LSPINE MIN 4 VIEWSon 10-2 XR [...] DANII CARTER Date: 2022-01-20 07:20 Normal [facility] [place] [facility] DEPAKENE/VALPROICon 01-20-20 22 DEPAKENE 79.2 ug/ml Normal 50.0-100.0 [facility] [place] [facility] Comment on above: Performed By: #### V ALP #### [facility] [place] [facility] [address] [place], [place] [address] Dr. Julio Goddard Albumin [Mass/volume] in Ser um or PlasmaOrdered By: Henry Lemonr on 01-05-2022 Albumin [Mass/Vol] 3.0 g/dL 3.2-5.5 [facility] Basophils Auto (Bld) [#/Vol] Ordered By: [facility] Filibertoomar on 01-05-2022 Basophils (Bld) [#/Vol] 0.0 10*3/uL 0.0-0.2 [facility] Basophils/100 WBC Auto (Bld) Ordered By: [facility] Filibertoomar on 01-05-2022 Basophils/100 WBC (Bld) 0.6 % . [facility] Blood hemoglobin measurement (mass/volume)Ordered By: [facility] Filibertoomar on 01-05-2022 Hemoglobin (Bld) [Mass/Vol] 12.8 g/dL 11.8-15.4 [facility] Blood leukocytes automated c ount (number/volume)Ordered By: [facility] on 01-05-2022 WBC (Bld) [#/Vol] 5.3 10*3/uL 4.5-11.0 [facility] Complete Blood Count Auto Di ffon 01-05-2022 Basophils (Bld) [#/Vol] 0.0 10*3/uL Normal 0.0-0.2 [facility] Comment on above: Result Comment: PERF ORMED BY: [address] [address] PATHOLOGIST MATERIALS ANALYST ANTONY ELIAS M.D. Performed By: #### C BC, CMP, PHOS, MG, LIPID #### [address] [place] [address] [place] Basophils/100 WBC (Bld) 0.6 % Normal . [facility] Comment on above: Performed By: #### C BC, CMP, PHOS, MG, LIPID #### [address] Eosinophils (Bld) [#/Vol] 0.2 10*3/uL Normal 0.0-0.45 [facility] Comment on above: Performed By: #### C BC, CMP, PHOS, MG, LIPID #### [address] Eosinophils/100 WBC (Bld) 3.5 % Normal . [facility] Comment on above: Performed By: #### C BC, CMP, PHOS, MG, LIPID #### [address] Erythrocyte distribution width (RBC) [Ratio] 16.2 % High 11.9-15.3 [facility] Comment on above: Performed By: #### C BC, CMP, PHOS, MG, LIPID #### [address] Hematocrit (Bld) [Volume fraction] 38.6 % Normal 34.0-46.4 [facility] Comment on above: Performed By: #### C BC, CMP, PHOS, MG, LIPID #### [address] Hemoglobin (Bld) [Mass/Vol] 12.8 g/dL Normal 11.8-15.4 [facility] Comment on above: Performed By: #### C BC, CMP, PHOS, MG, LIPID #### [place] [address] [place] Lymphocytes (Bld) [#/Vol] 1.7 10*3/uL Normal 1.00-4.8 [facility] Comment on above: Performed By: #### C BC, CMP, PHOS, MG, LIPID #### [place] [address] [place] Lymphocytes/100 WBC (Bld) 33.1 % Normal . [facility] Comment on above: Performed By: #### C BC, CMP, PHOS, MG, LIPID #### [address] MCH (RBC) [Entitic mass] 30.2 pg Normal 24.7-34.3 [facility] Comment on above: Performed By: #### C BC, CMP, PHOS, MG, LIPID #### [address] MCV (RBC) [Entitic vol] 90.6 fL Normal 80-100 [facility] Comment on above: Performed By: #### C BC, CMP, PHOS, MG, LIPID #### [address] Mean Corpuscular HGB Conc 33.3 g/dL Normal 32.0-35.0 [facility] Comment on above: Performed By: #### C BC, CMP, PHOS, MG, LIPID #### [address] Monocytes (Bld) [#/Vol] 0.7 10*3/uL Normal 0.0-0.8 [facility] Comment on above: Performed By: #### C BC, CMP, PHOS, MG, LIPID #### [address] Monocytes/100 WBC (Bld) 12.5 % Normal . [facility] Comment on above: Performed By: #### C BC, CMP, PHOS, MG, LIPID #### [address] Neutrophils (Bld) [#/Vol] 2.6 10*3/uL Normal 1.8-7.7 [facility] Comment on above: Performed By: #### C BC, CMP, PHOS, MG, LIPID #### [address] Neutrophils/100 WBC (Bld) 50.3 % Normal . [facility] Comment on above: Performed By: #### C BC, CMP, PHOS, MG, LIPID #### [facility] [address] [place] [address] Nucleated RBC/100 WBC (Bld) [Ratio] 0.1 % Normal 0-0.5 [facility] Comment on above: Performed By: #### C BC, CMP, PHOS, MG, LIPID #### [address] Platelet mean volume (Bld) [Entitic vol] 8.9 fL Normal 6.3-10.7 [facility] Comment on above: Performed By: #### C BC, CMP, PHOS, MG, LIPID #### [address] Platelets (Bld) [#/Vol] 186 10*3/uL Normal 150-450 [facility] Comment on above: Performed By: #### C BC, CMP, PHOS, MG, LIPID #### [address] RBC (Bld) [#/Vol] 4.25 10*6/uL Normal 3.60-5.00 [facility] Comment on above: Performed By: #### C BC, CMP, PHOS, MG, LIPID #### [address] WBC (Bld) [#/Vol] 5.3 10*3/uL Normal 4.5-11.0 [facility] [place] Comment on above: Performed By: #### C BC, CMP, PHOS, MG, LIPID #### [address] Comprehensive Metabolic Pane clarice 01-05-2022 Albumin [Mass/Vol] 3.0 g/dL Low 3.2-5.5 [facility] [place] Comment on above: Performed By: #### C BC, CMP, PHOS, MG, LIPID #### [address] Albumin/Globulin [Mass ratio] 1.2 {ratio} Normal [facility] Comment on above: Performed By: #### C BC, CMP, PHOS, MG, LIPID #### [facility] [address] ALP [Catalytic activity/Vol] 33 U/L Normal 32-92 [facility] Comment on above: Performed By: #### C BC, CMP, PHOS, MG, LIPID #### [facility] [address] ALT [Catalytic activity/Vol] 11 U/L Normal 10-60 [facility] Comment on above: Performed By: #### C BC, CMP, PHOS, MG, LIPID #### [facility] [address] [place] [address] Anion gap [Moles/Vol] 11.6 mmol/L Normal 6.0-15.0 [facility] Comment on above: Performed By: #### C BC, CMP, PHOS, MG, LIPID #### [facility] [address] [place] [address] AST [Catalytic activity/Vol] 13 U/L Normal 10-42 [facility] Comment on above: Performed By: #### C BC, CMP, PHOS, MG, LIPID #### [facility] [address] [place] [address] Bilirubin [Mass/Vol] 0.4 mg/dL Normal 0.3-1.2 [facility] Comment on above: Performed By: #### C BC, CMP, PHOS, MG, LIPID #### [facility] [address] [place] [address] Calcium [Mass/Vol] 9.1 mg/dL Normal 8.2-10.2 [facility] Comment on above: Performed By: #### C BC, CMP, PHOS, MG, LIPID #### [facility] [address] [place] [address] [place] Chloride [Moles/Vol] 105 mmol/L Normal 95-114 [facility] Comment on above: Performed By: #### C BC, CMP, PHOS, MG, LIPID #### [facility] [address] [place] [address] [place] CO2 [Moles/Vol] 25.2 mmol/L Normal 22.0-30.0 [facility] Comment on above: Performed By: #### C BC, CMP, PHOS, MG, LIPID #### [facility] [address] Creatinine [Mass/Vol] 1.14 mg/dL High 0.44-1.03 [facility] Comment on above: Performed By: #### C BC, CMP, PHOS, MG, LIPID #### [address] Creatinine Clr Calc Pharmacy 51.99 [facility] Comment on above: Result Comment: PERF ORMED BY: [place] [address] PATHOLOGIST MATERIALS ANALYST ANTONY ELIAS M.D. Performed By: #### C BC, CMP, PHOS, MG, LIPID #### [address] Estimated GFR ( [place] 59 [facility] Comment on above: Result Comment: GFR estimated reference range: According to KDOQI guidelines, <60 ml/min/1.73m2 is sufficient to diagnose a patient with chronic kidney disease. Performed By: #### C BC, CMP, PHOS, MG, LIPID #### [address] Estimated GFR (Non- Am 49 [facility] Comment on above: Performed By: #### C BC, CMP, PHOS, MG, LIPID #### [address] Globulin (S) [Mass/Vol] 2.5 g/dL Normal [facility] Comment on above: Performed By: #### C BC, CMP, PHOS, MG, LIPID #### [address] Glucose [Mass/Vol] 96 mg/dL Normal 70-100 [facility] Comment on above: Result Comment: [place] Glucose Reference Range is dependent on time and content of last meal. Glucose of more than 200 mg/dL in a nonstressed, ambulatory subject supports the diagnosis of Diabetes Mellitus. ADA recommended reference range Performed By: #### C BC, CMP, PHOS, MG, LIPID #### [facility] [address] Potassium [Moles/Vol] 3.8 mmol/L Normal 3.5-5.1 [facility] Comment on above: Performed By: #### C BC, CMP, PHOS, MG, LIPID #### [facility] [address] Protein [Mass/Vol] 5.5 g/dL Low 6.1-7.9 [facility] Comment on above: Performed By: #### C BC, CMP, PHOS, MG, LIPID #### [facility] [address] Sodium [Moles/Vol] 138 mmol/L Normal 136-146 [facility] Comment on above: Performed By: #### C BC, CMP, PHOS, MG, LIPID #### [facility] [address] Urea nitrogen [Mass/Vol] 11 mg/dL Normal 9-23 [facility] Comment on above: Performed By: #### C BC, CMP, PHOS, MG, LIPID #### [facility] [address] Creatinine and Glomerular fi ltration rate.predicted panel (S/P/Bld)Ordered By: Henry Lemonr on 01-05-2022 Creatinine [Mass/Vol] 1.14 mg/dL 0.44-1.03 [facility] Eosinophils Auto (Bld) [#/Vo l]Ordered By: Obsonjadanaga De oLs Santosomar on 01-05-2022 Eosinophils (Bld) [#/Vol] 0.2 10*3/uL 0.0-0.45 [facility] Eosinophils/100 WBC Auto (Bl d)Ordered By: Obdanny De Los Santosomar on 01-05-2022 Eosinophils/100 WBC (Bld) 3.5 % . [facility] Erythrocyte distribution wid th Auto (RBC) [Ratio]Ordered By: Henry Lemonr on 01-05-2022 Erythrocyte distribution width (RBC) [Ratio] 16.2 % 11.9-15.3 [facility] Estimated glomerular filtrat ion rate (GFR) non- AmericanOrdered By: Henry De Los Santosomar on 01-05-2022 GFR/1.73 sq M.predicted among non-blacks MDRD (S/P/Bld) [Vol rate/Area] 49 mL/Min [facility] Globulin Calc (S) [Mass/Vol] Ordered By: Henry Lemonr on 01-05-2022 Globulin (S) [Mass/Vol] 2.5 g/dL [facility] Hematocrit Auto (Bld) [Volum e fraction]Ordered By: Henry Lemonr on 01-05-2022 Hematocrit (Bld) [Volume fraction] 38.6 % 34.0-46.4 [facility] Laboratory - Hematology and Cell countsOrdered By: Henry Lemonr on 01-05-2022 Nucleated RBC/100 WBC (Bld) [Ratio] 0.1 % 0-0.5 [facility] Lymphocytes Auto (Bld) [#/Vo l]Ordered By: Henry De Los Santosomar on 01-05-2022 Lymphocytes (Bld) [#/Vol] 1.7 10*3/uL 1.00-4.8 [facility] Lymphocytes/100 WBC Auto (Bl d)Ordered By: Henry De Los Santosomar on 01-05-2022 Lymphocytes/100 WBC (Bld) 33.1 % . [facility] MCH Auto (RBC) [Entitic mass ]Ordered By: Henry De Los Santosomar on 01-05-2022 MCH (RBC) [Entitic mass] 30.2 pg 24.7-34.3 [facility] MCHC Auto (RBC) [Mass/Vol]Or dered By: Obsonjadanaga De Los Santosomar on 01-05-2022 MCHC (RBC) [Mass/Vol] 33.3 g/dL 32.0-35.0 [facility] MCV Auto (RBC) [Entitic vol] Ordered By: Henry De Los Santosomar on 01-05-2022 MCV (RBC) [Entitic vol] 90.6 fL 80-100 [facility] Monocytes Auto (Bld) [#/Vol] Ordered By: Obaydah Daromar on 01-05-2022 Monocytes (Bld) [#/Vol] 0.7 10*3/uL 0.0-0.8 [facility] Monocytes/100 WBC Auto (Bld) Ordered By: Obaydah Daromar on 01-05-2022 Monocytes/100 WBC (Bld) 12.5 % . [facility] Neutrophils Auto (Bld) [#/Vo l]Ordered By: Obaydah Daromar on 01-05-2022 Neutrophils (Bld) [#/Vol] 2.6 10*3/uL 1.8-7.7 [facility] Neutrophils/100 WBC Auto (Bl d)Ordered By: Obaydah Daromar on 01-05-2022 Neutrophils/100 WBC (Bld) 50.3 % . [facility] No Panel InformationOrdered By: Obsonjadah Filibertoomar on 01-05-2022 Estimated GFR () 59 mL/Min [facility] Comment on above: GFR estimated refere nce range: According to KDOQI guidelines, <60 ml/min/1.73m2 is sufficient to diagnose a patient with chronic kidney disease. Pharmacy Creatinine Clearance (Chem 51.99 [facility] Platelet mean volume Auto (B ld) [Entitic vol]Ordered By: Obsonjadah Daromar on 01-05-2022 Platelet mean volume (Bld) [Entitic vol] 8.9 fL 6.3-10.7 [facility] Platelets Auto (Bld) [#/Vol] Ordered By: Obaydah Daromar on 01-05-2022 Platelets (Bld) [#/Vol] 186 10*3/uL 150-450 [facility] Protein [Mass/volume] in Ser um or PlasmaOrdered By: Obaydah Daromar on 01-05-2022 Protein [Mass/Vol] 5.5 g/dL 6.1-7.9 [facility] RBC Auto (Bld) [#/Vol]Ordere d By: Henry Burnett on 01-05-2022 RBC (Bld) [#/Vol] 4.25 10*6/uL 3.60-5.00 [facility] Serum or plasma alanine angeles otransferase measurement without P-5'-P (enzymatic activiOrdered By: Henry Burnett on 01-05-2022 ALT No additional P-5'-P [Catalytic activity/Vol] 11 U/L 1060 [facility] Serum or plasma albumin/glob ulin mass ratioOrdered By: Henry Burnett on 01-05-2022 Albumin/Globulin [Mass ratio] 1.2 {ratio} [facility] Serum or plasma alkaline flaquita sphatase measurement (enzymatic activity/volume)Ordered By: Henry Burnett on 01-05-2022 ALP [Catalytic activity/Vol] 33 U/L 32-92 [facility] Serum or plasma anion gap de terminationOrdered By: Henry Burnett on 01-05-2022 Anion gap [Moles/Vol] 11.6 mmol/L 6.0-15.0 [facility] Serum or plasma aspartate am inotransferase measurement (enzymatic activity/volume)Ordered By: Henry Burnett on 01-05-2022 AST [Catalytic activity/Vol] 13 U/L 10 [facility] Serum or plasma calcium sarah urement (mass/volume)Ordered By: Henry Burnett on 01-05-2022 Calcium [Mass/Vol] 9.1 mg/dL 8.2-10.2 [facility] Serum or plasma chloride deep surement (moles/volume)Ordered By: Henry Burnett on 01-05-2022 Chloride [Moles/Vol] 105 mmol/L 95-114 [facility] Serum or plasma glucose sarah urement (mass/volume)Ordered By: Henry Burnett on 01-05-2022 Glucose [Mass/Vol] 96 mg/dL 70-100 [facility] Comment on above: ADA recommended refe rence rangeRandom Glucose Reference Range is dependent on time and content of last meal. Glucose of more than 200 mg/dL in a nonstressed, ambulatory subject supports the diagnosis of Diabetes Mellitus. Serum or plasma potassium me asurement (moles/volume)Ordered By: Henry Burnett on 01-05-2022 Potassium [Moles/Vol] 3.8 mmol/L 3.5-5.1 [facility] Serum or plasma sodium measu rement (moles/volume)Ordered By: Henry Burnett on 01-05-2022 Sodium [Moles/Vol] 138 mmol/L 136-146 [facility] Serum or plasma total biliru bin measurement (mass/volume)Ordered By: Henry Burnett on 01-05-2022 Bilirubin [Mass/Vol] 0.4 mg/dL 0.3-1.2 [facility] Serum or plasma total carbon dioxide measurement (moles/volume)Ordered By: Henry Burnett on 01-05-2022 CO2 [Moles/Vol] 25.2 mmol/L 22.0-30.0 [facility] Serum or plasma urea nitroge n measurement (mass/volume)Ordered By: Henry Burnett on 01-05-2022 Urea nitrogen [Mass/Vol] 11 mg/dL 9-23 [facility] Urine culture routineOrdered By: Justin Francisco on 01-05-2022 Bacteria identified Cx Nom (U) Escherichia coli [facility] Cholesterol [Mass/volume] in Serum or PlasmaOrdered By: Henry Burnett on 01-04-2022 Cholesterol [Mass/Vol] 145 mg/dL 140-200 [facility] Comment on above: Chol less than 200 m g/dl low riskChol 201-239 mg/dl borderline riskChol 240 mg/dl and greater high risk Cholesterol in LDL Calc [Mas s/Vol]Ordered By: Henry Burnett on 01-04-2022 Cholesterol in LDL [Mass/Vol] 78 mg/dL 0-100 [facility] Comment on above: LDL ATP III CLASSIFI CATIONLDL less than 100 mg/dL OptimalLDL 100-129 mg/dL Near or above optimalLDL 130-159 mg/dL Borderline highLDL 160-189 mg/dL HighLDL greater than 189 mg/dL Very high Cholesterol in VLDL Calc [Ma ss/Vol]Ordered By: Henry Burnett on 01-04-2022 Cholesterol in VLDL [Mass/Vol] 12 mg/dL [facility] Complete Blood Count Auto Di ffon 01-04-2022 Basophils (Bld) [#/Vol] 0.0 10*3/uL Normal 0.0-0.2 [facility] Comment on above: Result Comment: PERF ORMED BY: [place] [id number] PATHOLOGIST MATERIALS ANALYST ANTONY ELIAS M.D. Performed By: #### C BC, CMP, PHOS, MG, LIPID #### [address] Basophils/100 WBC (Bld) 0.8 % Normal . [facility] Comment on above: Performed By: #### C BC, CMP, PHOS, MG, LIPID #### [address] Eosinophils (Bld) [#/Vol] 0.2 10*3/uL Normal 0.0-0.45 [facility] Comment on above: Performed By: #### C BC, CMP, PHOS, MG, LIPID #### [address] Eosinophils/100 WBC (Bld) 4.2 % Normal . [facility] Comment on above: Performed By: #### C BC, CMP, PHOS, MG, LIPID #### [address] Erythrocyte distribution width (RBC) [Ratio] 15.8 % High 11.9-15.3 [facility] Comment on above: Performed By: #### C BC, CMP, PHOS, MG, LIPID #### [address] Hematocrit (Bld) [Volume fraction] 37.5 % Normal 34.0-46.4 [facility] Comment on above: Performed By: #### C BC, CMP, PHOS, MG, LIPID #### [address] Hemoglobin (Bld) [Mass/Vol] 12.3 g/dL Normal 11.8-15.4 [facility] Comment on above: Performed By: #### C BC, CMP, PHOS, MG, LIPID #### [address] Lymphocytes (Bld) [#/Vol] 1.6 10*3/uL Normal 1.00-4.8 [facility] Comment on above: Performed By: #### C BC, CMP, PHOS, MG, LIPID #### [address] Lymphocytes/100 WBC (Bld) 31.2 % Normal . [facility] Comment on above: Performed By: #### C BC, CMP, PHOS, MG, LIPID #### [address] MCH (RBC) [Entitic mass] 29.7 pg Normal 24.7-34.3 [facility] Comment on above: Performed By: #### C BC, CMP, PHOS, MG, LIPID #### [address] MCV (RBC) [Entitic vol] 90.5 fL Normal 80-100 [facility] Comment on above: Performed By: #### C BC, CMP, PHOS, MG, LIPID #### [address] Mean Corpuscular HGB Conc 32.8 g/dL Normal 32.0-35.0 [facility] Comment on above: Performed By: #### C BC, CMP, PHOS, MG, LIPID #### [address] Monocytes (Bld) [#/Vol] 0.7 10*3/uL Normal 0.0-0.8 [facility] Comment on above: Performed By: #### C BC, CMP, PHOS, MG, LIPID #### [place] [address] [place] Monocytes/100 WBC (Bld) 13.1 % Normal . [facility] Comment on above: Performed By: #### C BC, CMP, PHOS, MG, LIPID #### [facility] [address] Neutrophils (Bld) [#/Vol] 2.6 10*3/uL Normal 1.8-7.7 [facility] Comment on above: Performed By: #### C BC, CMP, PHOS, MG, LIPID #### [facility] [address] Neutrophils/100 WBC (Bld) 50.7 % Normal . [facility] Comment on above: Performed By: #### C BC, CMP, PHOS, MG, LIPID #### [address] Nucleated RBC/100 WBC (Bld) [Ratio] 0.1 % Normal 0-0.5 [facility] Comment on above: Performed By: #### C BC, CMP, PHOS, MG, LIPID #### [address] Platelet mean volume (Bld) [Entitic vol] 8.5 fL Normal 6.3-10.7 [facility] Comment on above: Performed By: #### C BC, CMP, PHOS, MG, LIPID #### [facility] [address] [place] [address] [place] Platelets (Bld) [#/Vol] 190 10*3/uL Normal 150-450 [facility] Comment on above: Performed By: #### C BC, CMP, PHOS, MG, LIPID #### [facility] [address] [place] [address] [place] RBC (Bld) [#/Vol] 4.15 10*6/uL Normal 3.60-5.00 [facility] Comment on above: Performed By: #### C BC, CMP, PHOS, MG, LIPID #### [facility] [address] [place] [address] [place] WBC (Bld) [#/Vol] 5.1 10*3/uL Normal 4.5-11.0 [facility] Comment on above: Performed By: #### C BC, CMP, PHOS, MG, LIPID #### [facility] [address] [place] [address] Comprehensive Metabolic Pane clarice 01-04-2022 Albumin [Mass/Vol] 3.0 g/dL Low 3.2-5.5 [facility] Comment on above: Performed By: #### C BC, CMP, PHOS, MG, LIPID #### [address] Albumin/Globulin [Mass ratio] 1.2 {ratio} Normal [facility] Comment on above: Performed By: #### C BC, CMP, PHOS, MG, LIPID #### [address] ALP [Catalytic activity/Vol] 32 U/L Normal 32-92 [facility] Comment on above: Performed By: #### C BC, CMP, PHOS, MG, LIPID #### [address] ALT [Catalytic activity/Vol] 12 U/L Normal 10-60 [facility] Comment on above: Performed By: #### C BC, CMP, PHOS, MG, LIPID #### [address] Anion gap [Moles/Vol] 10.6 mmol/L Normal 6.0-15.0 [facility] Comment on above: Performed By: #### C BC, CMP, PHOS, MG, LIPID #### [address] AST [Catalytic activity/Vol] 15 U/L Normal 10-42 [facility] Comment on above: Performed By: #### C BC, CMP, PHOS, MG, LIPID #### [address] Bilirubin [Mass/Vol] 0.3 mg/dL Normal 0.3-1.2 [facility] Comment on above: Performed By: #### C BC, CMP, PHOS, MG, LIPID #### [facility] [address] Calcium [Mass/Vol] 9.0 mg/dL Normal 8.2-10.2 [facility] Comment on above: Performed By: #### C BC, CMP, PHOS, MG, LIPID #### [facility] [address] Chloride [Moles/Vol] 103 mmol/L Normal 95-114 [facility] Comment on above: Performed By: #### C BC, CMP, PHOS, MG, LIPID #### [address] CO2 [Moles/Vol] 27.6 mmol/L Normal 22.0-30.0 [facility] Comment on above: Performed By: #### C BC, CMP, PHOS, MG, LIPID #### [address] Creatinine [Mass/Vol] 1.21 mg/dL High 0.44-1.03 [facility] Comment on above: Performed By: #### C BC, CMP, PHOS, MG, LIPID #### [address] Creatinine Clr Calc Pharmacy 49.01 [facility] Comment on above: Performed By: #### C BC, CMP, PHOS, MG, LIPID #### [facility] [address] [place] [address] Estimated GFR ( [place] 55 [facility] Comment on above: Result Comment: GFR estimated reference range: According to KDOQI guidelines, <60 ml/min/1.73m2 is sufficient to diagnose a patient with chronic kidney disease. Performed By: #### C BC, CMP, PHOS, MG, LIPID #### [address] Estimated GFR (Non- Am 46 [facility] Comment on above: Performed By: #### C BC, CMP, PHOS, MG, LIPID #### [address] [place] [address] [place] Globulin (S) [Mass/Vol] 2.6 g/dL Normal [facility] Comment on above: Performed By: #### C BC, CMP, PHOS, MG, LIPID #### [facility] [address] Glucose [Mass/Vol] 151 mg/dL High 70-100 [facility] Comment on above: Result Comment: [place] Glucose Reference Range is dependent on time and content of last meal. Glucose of more than 200 mg/dL in a nonstressed, ambulatory subject supports the diagnosis of Diabetes Mellitus. ADA recommended reference range Performed By: #### C BC, CMP, PHOS, MG, LIPID #### [facility] [address] Potassium [Moles/Vol] 3.2 mmol/L Low 3.5-5.1 [facility] Comment on above: Performed By: #### C BC, CMP, PHOS, MG, LIPID #### [facility] [address] Protein [Mass/Vol] 5.6 g/dL Low 6.1-7.9 [facility] Comment on above: Performed By: #### C BC, CMP, PHOS, MG, LIPID #### [address] Sodium [Moles/Vol] 138 mmol/L Normal 136-146 [facility] Comment on above: Performed By: #### C BC, CMP, PHOS, MG, LIPID #### [address] Urea nitrogen [Mass/Vol] 11 mg/dL Normal 9-23 [facility] Comment on above: Performed By: #### C BC, CMP, PHOS, MG, LIPID #### [address] Laboratory - Chemistry and C hemistry - challengeOrdered By: Henry Burnett on 01-04-2022 Magnesium [Mass/Vol] 1.6 mg/dL 1.6-2.6 [facility] Lipid Panelon 01-04-2022 Cholesterol [Mass/Vol] 145 mg/dL Normal 140-200 [facility] Comment on above: Result Comment: Chol less than 200 mg/dl low risk Chol 201-239 mg/dl borderline risk Chol 240 mg/dl and greater high risk Performed By: #### C BC, CMP, PHOS, MG, LIPID #### [facility] [address] [place] [address] [place] Cholesterol in HDL [Mass/Vol] 55 mg/dL Normal 35-85 [facility] Comment on above: Result Comment: HDL CHOL ATP-III CLASSIFICATION Cardiovascular Risk HDL > or equal to 60 mg/dL LOW HDL < 40 mg/dL HIGH Performed By: #### C BC, CMP, PHOS, MG, LIPID #### [facility] [address] Cholesterol.total/Tila sterol in HDL [Mass ratio] 2.6 {ratio} Normal <5.0 [facility] Comment on above: Result Comment: PERF ORMED BY: [place] [address] PATHOLOGIST MATERIALS ANALYST ANTONY ELIAS M.D. Performed By: #### C BC, CMP, PHOS, MG, LIPID #### [facility] [address] LDL Cholesterol,Calculated 78 mg/dL Normal 0-100 [facility] Comment on above: Result Comment: LDL ATP III CLASSIFICATION LDL less than 100 mg/dL Optimal LDL 100-129 mg/dL Near or above optimal LDL 130-159 mg/dL Borderline high LDL 160-189 mg/dL High LDL greater than 189 mg/dL Very high Performed By: #### C BC, CMP, PHOS, MG, LIPID #### [facility] [address] [place] [id number] [place] Triglyceride w/Reflex 60 mg/dL Normal 35-149 [facility] Comment on above: Result Comment: TRIG ATP III CLASSIFICATION TRIG less than 150 mg/dL Normal TRIG 150-199 mg/dL Borderline high TRIG 200-500 mg/dL High TRIG greater than 500 mg/dL Very high Standard traceable to the Center for Disease Conrtrol and Prevention (CDC) test method. Performed By: #### C BC, CMP, PHOS, MG, LIPID #### [facility] [address] VLDL CHOLESTEROL 12 mg/dL Normal [facility] Comment on above: Performed By: #### C BC, CMP, PHOS, MG, LIPID #### [facility] [address] Magnesiumon 01-04-2022 Magnesium [Mass/Vol] 1.6 mg/dL Normal 1.6-2.6 [facility] Comment on above: Performed By: #### C BC, CMP, PHOS, MG, LIPID #### [facility] [address] No Panel InformationOrdered By: Graham Helm on 01-04-2022 Valproic Acid (Depakene) Level 28.2 ug/mL 50.0-100.0 [facility] Comment on above: Last dose: - Phosphate [Mass/volume] in S yeyo or PlasmaOrdered By: Henry Lemonr on 01-04-2022 Phosphate [Mass/Vol] 3.5 mg/dL 2.5-4.6 [facility] Phosphoruson 01-04-2022 Phosphate [Mass/Vol] 3.5 mg/dL Normal 2.5-4.6 [facility] Comment on above: Performed By: #### C BC, CMP, PHOS, MG, LIPID #### [facility] [address] [place] [address] Serum or plasma high density lipoprotein (HDL) cholesterol measurementOrdered By: Henry Lemonr on 01-04-2022 Cholesterol in HDL [Mass/Vol] 55 mg/dL 35-85 [facility] Comment on above: HDL CHOL ATP-III CLA SSIFICATION Cardiovascular RiskHDL > or equal to 60 mg/dL LOWHDL < 40 mg/dL HIGH Serum or plasma total choles terol/high density lipoprotein (HDL) cholesterol mass ratOrdered By: Henry De Los Santosomar on 01-04-2022 Cholesterol.total/Tila sterol in HDL [Mass ratio] 2.6 {ratio} <5.0 [facility] Triglyceride [Mass/volume] i n Serum or PlasmaOrdered By: Henry Burnett on 01-04-2022 Triglyceride [Mass/Vol] 60 mg/dL 35-149 [facility] Comment on above: TRIG ATP III CLASSIF ICATIONTRIG less than 150 mg/dL NormalTRIG 150-199 mg/dL Borderline highTRIG 200-500 mg/dL High TRIG greater than 500 mg/dL Very highStandard traceable to the Center for Disease Conrtrol and Prevention (CDC) test method. Valproic Acid (in house)on 1 Valproic Acid (in house) 28.2 ug/mL Low 50.0-100.0 [facility] Comment on above: Result Comment: Last dose: - PERFORMED BY: [place] [address] PATHOLOGIST MATERIALS ANALYST ANTONY ELIAS M.D. Performed By: #### C BC, CMP, PHOS, MG, LIPID #### [facility] [address] [place] [address] Acetaminophenon 01-03-2022 Acetaminophen [Mass/Vol] 25.3 ug/mL Normal 10.0-30.0 [facility] Comment on above: Performed By: #### C MP, T4F, TSH3, CBC, ETOH, JUAN, ACET, VALP #### [facility] [address] [place] [address] Albumin [Mass/volume] in Ser um or PlasmaOrdered By: Justin Francisco on 01-03-2022 Albumin [Mass/Vol] 3.6 g/dL 3.2-5.5 [facility] Amphetamine Screen Ql (U)Ord ered By: Justin Francisco on 01-03-2022 Amphetamines Ql (U) Negative Negative [facility] Automated erythrocytes count in urine sediment (number/area)Ordered By: Justin Francisco on 01-03-2022 RBC Auto (Urine sed) [#/Area] None seen [HPF] 0-4 [facility] Automated leukocytes count i n urine sediment (number/area)Ordered By: Justin Francisco on 01-03-2022 WBC Auto (Urine sed) [#/Area] 5-9 [HPF] 0-4 [facility] Barbiturates [Presence] in U rineOrdered By: Justin Francisco on 01-03-2022 Barbiturates Ql (U) Negative Negative [facility] Basophils Auto (Bld) [#/Vol] Ordered By: Justin Francisco on 01-03-2022 Basophils (Bld) [#/Vol] 0.0 10*3/uL 0.0-0.2 [facility] Basophils/100 WBC Auto (Bld) Ordered By: Justin Francisco on 01-03-2022 Basophils/100 WBC (Bld) 0.6 % . [facility] Benzodiazepines [Presence] i n UrineOrdered By: Justin Francisco on 01-03-2022 Benzodiazepines Ql (U) Negative Negative [facility] Bilirubin Test strip Ql (U)O rdered By: Justin Francisco on 01-03-2022 Bilirubin Ql (U) Negative Negative [facility] Blood hemoglobin measurement (mass/volume)Ordered By: Justin Francisco on 01-03-2022 Hemoglobin (Bld) [Mass/Vol] 13.4 g/dL 11.8-15.4 [facility] Blood leukocytes automated c ount (number/volume)Ordered By: Justin Francisco on 01-03-2022 WBC (Bld) [#/Vol] 6.4 10*3/uL 4.5-11.0 [facility] COVID-19 Antigenon 2 COVID-19 Antigen Healthcare [...] developed and its performance characteristic determined by [employer] and validated at [facility]. This test has not been [...] for SARS Antigen by [employer] PERFORMED BY: [place] [address] PATHOLOGIST MATERIALS ANALYST ANTONY ELIAS M.D. 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 This test has not been [...] is terminated or revoked sooner. PERFORMED BY: [facility] [address] [place] [address] PATHOLOGIST MATERIALS ANALYST ANTONY ELIAS M.D. Performed By: #### C BC, CMP, PHOS, MG, LIPID #### [facility] [address] COVID-19 Positive/NegativeOr dered By: Justin Francisco on 01-03-2022 SARS-CoV-2 (COVID-19) N gene ARMINDA+probe Ql (Resp) Negative Negative [facility] Comment on above: Testing for SARS-CoV -2 by RT-PCRThis test was developed and its performance characteristics determined by [facility] [employer] and validated at the [facility]. This test has not been [...] (COVID-19) Ag IA.rapid Ql (Resp) Negative Negative [facility] Comment on above: This is a duplicate [facility] SARS Antigen ([employer]) result to be used for statistical tracking purpose only. CT head/brain wo conon 01-03 CT head/brain wo con [facility] [place] [address] [place] [address] CT Scan Report Signed Patient: Kathy Porter MR#: [id number] : 1960 Acct:[id number] Age/Sex: 61 / F ADM Date: 01/03/22 Loc: ER Room: Type: [facility] ER Attending Dr: Copies to: Justin [...] Rajinder Cardona M.D.01/03/2022 3:21 PM Dictation Location: [place] [address] Transcribed By: [facility] 01/03/22 1521 Dictated By: Rajinder Cardona II, MD 01/03/22 1518 Signed By: 01/03/22 1521 [facility] Cannabinoids [Presence] in U rine by Screen methodOrdered By: Justin Francisco on 01-03-2022 Cannabinoids Screen Ql (U) Negative Negative [facility] Comment on above: These are unconfirme d results and should not be used for legal purposes. Drug Cut-Off Concentration: AMPH 1000 ng/mL TERRY 200 ng/mL HONG 200 ng/mL COCM 300 ng/mL OP 300 ng/mL PCP 25 ng/mL THC 20 ng/mL Color Auto (U)Ordered By: Aman Francisco on 01-03-2022 Color (U) Yellow Yellow [facility] Complete Blood Count Auto Di ffon 01-03-2022 Basophils (Bld) [#/Vol] 0.0 10*3/uL Normal 0.0-0.2 [facility] Comment on above: Result Comment: PERF ORMED BY: [place] [address] PATHOLOGIST MATERIALS ANALYST ANTONY ELIAS M.D. Performed By: #### C MP, T4F, TSH3, CBC, ETOH, JUAN, ACET, VALP #### [address] Basophils/100 WBC (Bld) 0.6 % Normal . [facility] Comment on above: Performed By: #### C MP, T4F, TSH3, CBC, ETOH, JUAN, ACET, VALP #### [address] Eosinophils (Bld) [#/Vol] 0.1 10*3/uL Normal 0.0-0.45 [facility] Comment on above: Performed By: #### C MP, T4F, TSH3, CBC, ETOH, JUAN, ACET, VALP #### [facility] [address] [place] [address] [place] Eosinophils/100 WBC (Bld) 1.4 % Normal . [facility] Comment on above: Performed By: #### C MP, T4F, TSH3, CBC, ETOH, JUAN, ACET, VALP #### [address] Erythrocyte distribution width (RBC) [Ratio] 15.7 % High 11.9-15.3 [facility] Comment on above: Performed By: #### C MP, T4F, TSH3, CBC, ETOH, JUAN, ACET, VALP #### [address] Hematocrit (Bld) [Volume fraction] 41.0 % Normal 34.0-46.4 [facility] Comment on above: Performed By: #### C MP, T4F, TSH3, CBC, ETOH, JUAN, ACET, VALP #### [address] Hemoglobin (Bld) [Mass/Vol] 13.4 g/dL Normal 11.8-15.4 [facility] Comment on above: Performed By: #### C MP, T4F, TSH3, CBC, ETOH, JUAN, ACET, VALP #### [address] Lymphocytes (Bld) [#/Vol] 1.4 10*3/uL Normal 1.00-4.8 [facility] Comment on above: Performed By: #### C MP, T4F, TSH3, CBC, ETOH, JUAN, ACET, VALP #### [address] Lymphocytes/100 WBC (Bld) 22.3 % Normal . [facility] Comment on above: Performed By: #### C MP, T4F, TSH3, CBC, ETOH, JUAN, ACET, VALP #### [address] MCH (RBC) [Entitic mass] 29.7 pg Normal 24.7-34.3 [facility] Comment on above: Performed By: #### C MP, T4F, TSH3, CBC, ETOH, JUAN, ACET, VALP #### [address] MCV (RBC) [Entitic vol] 91.0 fL Normal 80-100 [facility] Comment on above: Performed By: #### C MP, T4F, TSH3, CBC, ETOH, JUAN, ACET, VALP #### [address] Mean Corpuscular HGB Conc 32.6 g/dL Normal 32.0-35.0 [facility] Comment on above: Performed By: #### C MP, T4F, TSH3, CBC, ETOH, JUAN, ACET, VALP #### [place] [address] [place] Monocytes (Bld) [#/Vol] 0.6 10*3/uL Normal 0.0-0.8 [facility] Comment on above: Performed By: #### C MP, T4F, TSH3, CBC, ETOH, JUAN, ACET, VALP #### [address] Monocytes/100 WBC (Bld) 8.9 % Normal . [facility] Comment on above: Performed By: #### C MP, T4F, TSH3, CBC, ETOH, JUAN, ACET, VALP #### [address] Neutrophils (Bld) [#/Vol] 4.3 10*3/uL Normal 1.8-7.7 [facility] Comment on above: Performed By: #### C MP, T4F, TSH3, CBC, ETOH, JUAN, ACET, VALP #### [address] Neutrophils/100 WBC (Bld) 66.8 % Normal . [facility] Comment on above: Performed By: #### C MP, T4F, TSH3, CBC, ETOH, JUAN, ACET, VALP #### [place] [address] [place] Nucleated RBC/100 WBC (Bld) [Ratio] 0.1 % Normal 0-0.5 [facility] Comment on above: Performed By: #### C MP, T4F, TSH3, CBC, ETOH, JUAN, ACET, VALP #### [place] [address] [place] Platelet mean volume (Bld) [Entitic vol] 8.8 fL Normal 6.3-10.7 [facility] Comment on above: Performed By: #### C MP, T4F, TSH3, CBC, ETOH, JUAN, ACET, VALP #### [address] Platelets (Bld) [#/Vol] 236 10*3/uL Normal 150-450 [facility] Comment on above: Performed By: #### C MP, T4F, TSH3, CBC, ETOH, JUAN, ACET, VALP #### [address] RBC (Bld) [#/Vol] 4.50 10*6/uL Normal 3.60-5.00 [facility] Comment on above: Performed By: #### C MP, T4F, TSH3, CBC, ETOH, JUAN, ACET, VALP #### [address] WBC (Bld) [#/Vol] 6.4 10*3/uL Normal 4.5-11.0 [facility] Comment on above: Performed By: #### C MP, T4F, TSH3, CBC, ETOH, JUAN, ACET, VALP #### [address] Comprehensive Metabolic Pane clarice 01-03-2022 Albumin [Mass/Vol] 3.6 g/dL Normal 3.2-5.5 [facility] Comment on above: Performed By: #### C BC, CMP, PHOS, MG, LIPID #### [address] Albumin/Globulin [Mass ratio] 1.2 {ratio} Normal [facility] Comment on above: Performed By: #### C BC, CMP, PHOS, MG, LIPID #### [address] ALP [Catalytic activity/Vol] 40 U/L Normal 32-92 [facility] Comment on above: Performed By: #### C BC, CMP, PHOS, MG, LIPID #### [address] [place] [address] [place] ALT [Catalytic activity/Vol] 14 U/L Normal 10-60 [facility] Comment on above: Performed By: #### C BC, CMP, PHOS, MG, LIPID #### [facility] [address] Anion gap [Moles/Vol] 16.7 mmol/L High 6.0-15.0 [facility] Comment on above: Performed By: #### C BC, CMP, PHOS, MG, LIPID #### [facility] [address] AST [Catalytic activity/Vol] 18 U/L Normal 10-42 [facility] Comment on above: Performed By: #### C BC, CMP, PHOS, MG, LIPID #### [facility] [address] Bilirubin [Mass/Vol] 0.6 mg/dL Normal 0.3-1.2 [facility] Comment on above: Performed By: #### C BC, CMP, PHOS, MG, LIPID #### [facility] [address] Calcium [Mass/Vol] 9.5 mg/dL Normal 8.2-10.2 [facility] Comment on above: Performed By: #### C BC, CMP, PHOS, MG, LIPID #### [facility] [address] [place] [address] [place] Chloride [Moles/Vol] 99 mmol/L Normal 95-114 [facility] Comment on above: Performed By: #### C BC, CMP, PHOS, MG, LIPID #### [facility] [address] [place] [address] [place] CO2 [Moles/Vol] 23.6 mmol/L Normal 22.0-30.0 [facility] Comment on above: Performed By: #### C BC, CMP, PHOS, MG, LIPID #### [facility] [address] Creatinine [Mass/Vol] 1.38 mg/dL High 0.44-1.03 [facility] Comment on above: Performed By: #### C BC, CMP, PHOS, MG, LIPID #### [address] Creatinine Clr Calc Pharmacy 43.00 [facility] Comment on above: Performed By: #### C BC, CMP, PHOS, MG, LIPID #### [facility] [address] Estimated GFR ( [place] 47 [facility] Comment on above: Result Comment: GFR estimated reference range: According to KDOQI guidelines, <60 ml/min/1.73m2 is sufficient to diagnose a patient with chronic kidney disease. Performed By: #### C BC, CMP, PHOS, MG, LIPID #### [address] Estimated GFR (Non- Am 39 [facility] Comment on above: Performed By: #### C BC, CMP, PHOS, MG, LIPID #### [address] Globulin (S) [Mass/Vol] 3.1 g/dL Normal [facility] Comment on above: Performed By: #### C BC, CMP, PHOS, MG, LIPID #### [address] Glucose [Mass/Vol] 137 mg/dL High 70-100 [facility] Comment on above: Result Comment: [place] Glucose Reference Range is dependent on time and content of last meal. Glucose of more than 200 mg/dL in a nonstressed, ambulatory subject supports the diagnosis of Diabetes Mellitus. ADA recommended reference range Performed By: #### C BC, CMP, PHOS, MG, LIPID #### [address] Potassium [Moles/Vol] 4.3 mmol/L Normal 3.5-5.1 [facility] Comment on above: Performed By: #### C BC, CMP, PHOS, MG, LIPID #### [place] [address] [place] Protein [Mass/Vol] 6.7 g/dL Normal 6.1-7.9 [facility] Comment on above: Performed By: #### C BC, CMP, PHOS, MG, LIPID #### [facility] [address] Sodium [Moles/Vol] 135 mmol/L Low 136-146 [facility] Comment on above: Performed By: #### C BC, CMP, PHOS, MG, LIPID #### [facility] [address] Urea nitrogen [Mass/Vol] 14 mg/dL Normal 9-23 [facility] Comment on above: Performed By: #### C BC, CMP, PHOS, MG, LIPID #### [address] Creatinine and Glomerular fi ltration rate.predicted panel (S/P/Bld)Ordered By: Justin Francisco on 01-03-2022 Creatinine [Mass/Vol] 1.38 mg/dL 0.44-1.03 [facility] Dipstick and Microscopicon 1 Appearance (U) Clear Normal Clear [facility] Comment on above: Order Comment: Name Collection Type:: Clean-Voided Midstream Performed By: #### C BC, CMP, PHOS, MG, LIPID #### [address] Bacteria,Urine 2+ High None Seen [facility] Comment on above: Order Comment: Name Collection Type:: Clean-Voided Midstream Performed By: #### C BC, CMP, PHOS, MG, LIPID #### [place] [address] [place] Bilirubin,Urine Negative Normal Negative [facility] Comment on above: Order Comment: Name Collection Type:: Clean-Voided Midstream Performed By: #### C BC, CMP, PHOS, MG, LIPID #### [address] Color (U) Yellow Normal Yellow [facility] Comment on above: Order Comment: Name Collection Type:: Clean-Voided Midstream Performed By: #### C BC, CMP, PHOS, MG, LIPID #### [facility] [address] [place] [address] Glucose Ql (U) Normal Normal Normal [facility] Comment on above: Order Comment: Name Collection Type:: Clean-Voided Midstream Performed By: #### C BC, CMP, PHOS, MG, LIPID #### [facility] [address] [place] [address] Hyaline Casts,Urine 0-8 Normal 0-8 [facility] Comment on above: Order Comment: Name Collection Type:: Clean-Voided Midstream Performed By: #### C BC, CMP, PHOS, MG, LIPID #### [address] Ketones Ql (U) Negative Normal Negative [facility] Comment on above: Order Comment: Name Collection Type:: Clean-Voided Midstream Performed By: #### C BC, CMP, PHOS, MG, LIPID #### [address] Leukocyte esterase Test strip Ql (U) 2+ High Negative [facility] Comment on above: Order Comment: Name Collection Type:: Clean-Voided Midstream Performed By: #### C BC, CMP, PHOS, MG, LIPID #### [address] Nitrite,Urine Negative Normal Negative [facility] Comment on above: Order Comment: Name Collection Type:: Clean-Voided Midstream Performed By: #### C BC, CMP, PHOS, MG, LIPID #### [facility] [address] [place] [address] Occult Blood,Urine Negative Normal Negative [facility] Comment on above: Order Comment: Name Collection Type:: Clean-Voided Midstream Result Comment: PERF ORMED BY: [place] [address] PATHOLOGIST MATERIALS ANALYST ANTONY ELIAS M.D. Performed By: #### C BC, CMP, PHOS, MG, LIPID #### [address] pH (U) 5.5 [pH] Normal 5.0-9.0 [facility] Comment on above: Order Comment: Name Collection Type:: Clean-Voided Midstream Performed By: #### C BC, CMP, PHOS, MG, LIPID #### [address] Protein,Urine Negative Normal Negative [facility] Comment on above: Order Comment: Name Collection Type:: Clean-Voided Midstream Performed By: #### C BC, CMP, PHOS, MG, LIPID #### [address] RBC,Urine None Seen Normal 0-4 [facility] Comment on above: Order Comment: Name Collection Type:: Clean-Voided Midstream Performed By: #### C BC, CMP, PHOS, MG, LIPID #### [address] Specificy [place],Urine 1.012 Normal 1.001-1.030 [facility] Comment on above: Order Comment: Name Collection Type:: Clean-Voided Midstream Performed By: #### C BC, CMP, PHOS, MG, LIPID #### [address] Squamous Epithelial Cell,Urine 3-4 High 0-2 [facility] Comment on above: Order Comment: Name Collection Type:: Clean-Voided Midstream Performed By: #### C BC, CMP, PHOS, MG, LIPID #### [address] Urobilinogen,Urine Normal Normal Normal [facility] Comment on above: Order Comment: Name Collection Type:: Clean-Voided Midstream Performed By: #### C BC, CMP, PHOS, MG, LIPID #### [address] WBC,Urine 5-9 High 0-4 [facility] Comment on above: Order Comment: Name Collection Type:: Clean-Voided Midstream Performed By: #### C BC, CMP, PHOS, MG, LIPID #### [facility] [address] [place] [address] [place] Yeast,Urine None Seen Normal None Seen [facility] Comment on above: Order Comment: Name Collection Type:: Clean-Voided Midstream Result Comment: PERF ORMED BY: [place] [address] PATHOLOGIST MATERIALS ANALYST ANTONY ELIAS M.D. Performed By: #### C BC, CMP, PHOS, MG, LIPID #### [facility] [address] [place] [address] Drug Screen,Urineon 01-04-20 Amphetamine Screen,Urine Negative Normal Negative [facility] Comment on above: Performed By: #### C BC, CMP, PHOS, MG, LIPID #### [facility] [address] [place] [address] Barbiturate Screen,Urine Negative Normal Negative [facility] Comment on above: Performed By: #### C BC, CMP, PHOS, MG, LIPID #### [facility] [address] [place] [address] Benzodiazepines Screen,Urine Negative Normal Negative [facility] Comment on above: Performed By: #### C BC, CMP, PHOS, MG, LIPID #### [facility] [address] [place] [address] Cannabinoid Screen,Urine Negative Normal Negative [facility] Comment on above: Result Comment: Thes e are unconfirmed results and should not be used for legal purposes. Drug Cut-Off Concentration: AMPH 1000 ng/mL TERRY 200 ng/mL HONG 200 ng/mL COCM 300 ng/mL OP 300 ng/mL PCP 25 ng/mL THC 20 ng/mL PERFORMED BY: [place] [address] PATHOLOGIST MATERIALS ANALYST ANTONY ELIAS M.D. Performed By: #### C BC, CMP, PHOS, MG, LIPID #### [facility] [address] [place] [address] [place] Cocaine Screen,Urine Negative Normal Negative [facility] Comment on above: Performed By: #### C BC, CMP, PHOS, MG, LIPID #### [facility] [address] Opiate Screen,Urine Negative Normal Negative [facility] Comment on above: Performed By: #### C BC, CMP, PHOS, MG, LIPID #### [facility] [address] [place] [id number] [facility] Phencyclidine Screen,Urine Negative Normal Negative [facility] Comment on above: Performed By: #### C BC, CMP, PHOS, MG, LIPID #### [facility] [address] [place] [address] [facility] ECG 12 lead ECGon 01-03-2022 ECG 12 lead ECG [facility] [address] [place] [address] [place] [address] Electrocardiograph Report Signed Patient: Kathy Porter MR#: [id number] : 1960 Acct:[id number] Age/Sex: 61 / F ADM Date: 01/03/22 Loc: Room: [address] [place] [address] Type: DIS INOo Attending Dr: Henry Burnett [...] ECGs available Confirmed by Justin Francisco DO ([id number]) on 01/03/2022 7:17:59 PM Referred By: Electronically Signed By:Justin Francisco DO Transcribed By: MUS Signed By Justin Francisco DO 01/03 [facility] Eosinophils Auto (Bld) [#/Vo l]Ordered By: Justin Francisco on 01-03-2022 Eosinophils (Bld) [#/Vol] 0.1 10*3/uL 0.0-0.45 [facility] Eosinophils/100 WBC Auto (Bl d)Ordered By: Justin Francisco on 01-03-2022 Eosinophils/100 WBC (Bld) 1.4 % . [facility] Erythrocyte distribution wid th Auto (RBC) [Ratio]Ordered By: Justin Francisco on 01-03-2022 Erythrocyte distribution width (RBC) [Ratio] 15.7 % 11.9-15.3 [facility] Estimated glomerular filtrat ion rate (GFR) non- AmericanOrdered By: Justin Francisco on 01-03-2022 GFR/1.73 sq M.predicted among non-blacks MDRD (S/P/Bld) [Vol rate/Area] 39 mL/Min [facility] Ethyl Alcohol Profileon Ethanol [Mass/Vol] mg/dL Normal [facility] Comment on above: Performed By: #### C MP, T4F, TSH3, CBC, ETOH, JUAN, ACET, VALP #### [facility] [address] Percent Ethanol Not performed Normal [facility] Comment on above: Result Comment: PERF ORMED BY: [place] [address] PATHOLOGIST MATERIALS ANALYST ANTONY ELIAS M.D. Performed By: #### C MP, T4F, TSH3, CBC, ETOH, JUAN, ACET, VALP #### [facility] [address] Free T4 (Free Thyroxine)on Free T4 [Mass/Vol] 1.10 ng/dL Normal 0.61-1.12 [facility] Comment on above: Performed By: #### C BC, CMP, PHOS, MG, LIPID #### [facility] [address] [place] [address] [place] Globulin Calc (S) [Mass/Vol] Ordered By: Justin Francisco on 01-03-2022 Globulin (S) [Mass/Vol] 3.1 g/dL F [facility] Hematocrit Auto (Bld) [Volum e fraction]Ordered By: Justin Francisco on 01-03-2022 Hematocrit (Bld) [Volume fraction] 41.0 % 34.0-46.4 [facility] Ketones Auto test strip (U) [Mass/Vol]Ordered By: Justin Francisco on 01-03-2022 Ketones (U) [Mass/Vol] Negative Negative Fi [facility] Laboratory - Drug toxicology Ordered By: Justin Francisco on 01-03-2022 Opiates Ql (U) Negative Negative [facility] Laboratory - Hematology and Cell countsOrdered By: Justin Francisco on 01-03-2022 Nucleated RBC/100 WBC (Bld) [Ratio] 0.1 % 0-0.5 [facility] Laboratory - UrinalysisOrder ed By: Justin Francisco on 01-03-2022 Hyaline casts LM Ql (Urine sed) 0-8 [LPF] 0-8 [facility] Lymphocytes Auto (Bld) [#/Vo l]Ordered By: Justin Francisco on 01-03-2022 Lymphocytes (Bld) [#/Vol] 1.4 10*3/uL 1.00-4.8 [facility] Lymphocytes/100 WBC Auto (Bl d)Ordered By: Justin Francisco on 01-03-2022 Lymphocytes/100 WBC (Bld) 22.3 % . [facility] MCH Auto (RBC) [Entitic mass ]Ordered By: Justin Francisco on 01-03-2022 MCH (RBC) [Entitic mass] 29.7 pg 24.7-34.3 [facility] MCHC Auto (RBC) [Mass/Vol]Or dered By: Justin Francisco on 01-03-2022 MCHC (RBC) [Mass/Vol] 32.6 g/dL 32.0-35.0 [facility] MCV Auto (RBC) [Entitic vol] Ordered By: Justin Francisco on 01-03-2022 MCV (RBC) [Entitic vol] 91.0 fL 80-100 F [facility] Monocytes Auto (Bld) [#/Vol] Ordered By: Justin Francisco on 01-03-2022 Monocytes (Bld) [#/Vol] 0.6 10*3/uL 0.0-0.8 [facility] Monocytes/100 WBC Auto (Bld) Ordered By: Justin Francisco on 01-03-2022 Monocytes/100 WBC (Bld) 8.9 % . F [facility] Neutrophils Auto (Bld) [#/Vo l]Ordered By: Justin Francisco on 01-03-2022 Neutrophils (Bld) [#/Vol] 4.3 10*3/uL 1.8-7.7 [facility] Neutrophils/100 WBC Auto (Bl d)Ordered By: Justin Francisco on 01-03-2022 Neutrophils/100 WBC (Bld) 66.8 % . [facility] Nitrite Test strip Ql (U)Ord ered By: Justin Francisco on 01-03-2022 Nitrite Ql (U) Negative Negative [facility] No Panel InformationOrdered By: Justin Francisco on 01-03-2022 Estimated GFR () 47 mL/Min [facility] Comment on above: GFR estimated refere nce range: According to KDOQI guidelines, <60 ml/min/1.73m2 is sufficient to diagnose a patient with chronic kidney disease. Pharmacy Creatinine Clearance (Chem 43.00 [facility] Valproic Acid (Depakene) Level 59.0 ug/mL 50.0-100.0 [facility] Comment on above: Last dose: - SARS Antigen (LFIA) [facility] Phencyclidine Screen Ql (U)O rdered By: Justin Francisco on 01-03-2022 Phencyclidine Ql (U) Negative Negative [facility] Platelet mean volume Auto (B ld) [Entitic vol]Ordered By: Justin Francisco on 01-03-2022 Platelet mean volume (Bld) [Entitic vol] 8.8 fL 6.3-10.7 [facility] Platelets Auto (Bld) [#/Vol] Ordered By: Justin Francisco on 01-03-2022 Platelets (Bld) [#/Vol] 236 10*3/uL 150-450 [facility] Protein Auto test strip (U) [Mass/Vol]Ordered By: Justin Francisco on 01-03-2022 Protein (U) [Mass/Vol] Negative Negative Fi [facility] Protein [Mass/volume] in Ser um or PlasmaOrdered By: Justni Francisco on 01-03-2022 Protein [Mass/Vol] 6.7 g/dL 6.1-7.9 [facility] RBC Auto (Bld) [#/Vol]Ordere d By: Justin Francisco on 01-03-2022 RBC (Bld) [#/Vol] 4.50 10*6/uL 3.60-5.00 [facility] Salicylateon 01-03-2022 Salicylate < 4.0 Low 15.0-30.0 [facility] Comment on above: Result Comment: Phuong ents treated with Sulfasalazine may generate a false high result for Salicylate. Patients treated with Sulfapyridine may generate a false low result for Salicylate. Performed By: #### C MP, T4F, TSH3, CBC, ETOH, JUAN, ACET, VALP #### [facility] [address] [place] [address] Salicylates [Mass/volume] in Serum or PlasmaOrdered By: Justin Francisco on 01-03-2022 Salicylates [Mass/Vol] mg/dL 15.0-30.0 [facility] Comment on above: Patients treated wit h Sulfasalazine may generate a false high result for Salicylate.Patients treated with Sulfapyridine may generate a false low result for Salicylate. Serum or plasma acetaminophe n measurement (mass/volume)Ordered By: Justin Francisco on 01-03-2022 Acetaminophen [Mass/Vol] 25.3 ug/mL 10.0-30.0 [facility] Serum or plasma alanine angeles otransferase measurement without P-5'-P (enzymatic activiOrdered By: Justin Francisco on 01-03-2022 ALT No additional P-5'-P [Catalytic activity/Vol] 14 U/L [facility] Serum or plasma albumin/glob ulin mass ratioOrdered By: Justin Francisco on 01-03-2022 Albumin/Globulin [Mass ratio] 1.2 {ratio} [facility] Serum or plasma alkaline flaquita sphatase measurement (enzymatic activity/volume)Ordered By: Justin Francisco on 01-03-2022 ALP [Catalytic activity/Vol] 40 U/L 32-92 [facility] Serum or plasma anion gap de terminationOrdered By: Justin Francisco on 01-03-2022 Anion gap [Moles/Vol] 16.7 mmol/L 6.0-15.0 [facility] Serum or plasma aspartate am inotransferase measurement (enzymatic activity/volume)Ordered By: Justin Francisco on 01-03-2022 AST [Catalytic activity/Vol] 18 U/L 10-42 [facility] Serum or plasma calcium sarah urement (mass/volume)Ordered By: Justin Francisco on 01-03-2022 Calcium [Mass/Vol] 9.5 mg/dL 8.2-10.2 [facility] Serum or plasma chloride deep surement (moles/volume)Ordered By: Justin Francisco on 01-03-2022 Chloride [Moles/Vol] 99 mmol/L 95-114 [facility] Serum or plasma ethanol sarah urement (mass/volume)Ordered By: Justin Francisco on 01-03-2022 Ethanol [Mass/Vol] mg/dL [facility] Ethanol [Mass/Vol] TNP [facility] Comment on above: Test not performed Serum or plasma glucose sarah urement (mass/volume)Ordered By: Justin Francisco on 01-03-2022 Glucose [Mass/Vol] 137 mg/dL 70-100 [facility] Comment on above: ADA recommended refe rence rangeRandom Glucose Reference Range is dependent on time and content of last meal. Glucose of more than 200 mg/dL in a nonstressed, ambulatory subject supports the diagnosis of Diabetes Mellitus. Serum or plasma potassium me asurement (moles/volume)Ordered By: Justin Francisco on 01-03-2022 Potassium [Moles/Vol] 4.3 mmol/L 3.5-5.1 [facility] Serum or plasma sodium measu rement (moles/volume)Ordered By: Justin Francisco on 01-03-2022 Sodium [Moles/Vol] 135 mmol/L 136-146 [facility] Serum or plasma total biliru bin measurement (mass/volume)Ordered By: Justin Francisco on 01-03-2022 Bilirubin [Mass/Vol] 0.6 mg/dL 0.3-1.2 [facility] Serum or plasma total carbon dioxide measurement (moles/volume)Ordered By: Justin Francisco on 01-03-2022 CO2 [Moles/Vol] 23.6 mmol/L 22.0-30.0 [facility] Serum or plasma urea nitroge n measurement (mass/volume)Ordered By: Justin Francisco on 01-03-2022 Urea nitrogen [Mass/Vol] 14 mg/dL 12-23 [facility] Delores Ag Negativeon 01-04-20 Delores Ag Negative Negative Normal Negative [facility] Comment on above: Result Comment: This is a duplicate Delores SARS Antigen (MARLINE) result to be used for statistical tracking purpose only. PERFORMED BY: [place] [address] PATHOLOGIST MATERIALS ANALYST ANTONY ELIAS M.D. Performed By: #### C BC, CMP, PHOS, MG, LIPID #### [facility] [address] [place] [id number] [facility] Specific gravity Auto test s trip (U) [Rel density]Ordered By: Justin Francisco on 01-03-2022 Specific gravity (U) [Rel density] 1.012 1.001-1.030 [facility] Squamous epithelial cells de tection in urine sediment by light microscopyOrdered By: Justin Francisco on 01-03-2022 Epithelial cells.squamous LM Ql (Urine sed) 3-4 [HPF] 0-2 [facility] TSH DL <= 0.005 mIU/L QnOrde red By: Justin Francisco on 01-03-2022 TSH Qn 4.71 m[IU]/L 0.45-5.33 [facility] Thyroid Stimulating Hormoneo n 01-03-2022 TSH Qn 4.71 m[IU]/L Normal 0.45-5.33 [facility] Comment on above: Result Comment: PERF ORMED BY: [facility] [address] [place] [address] PATHOLOGIST MATERIALS ANALYST ANTONY ELIAS M.D. Performed By: #### C BC, CMP, PHOS, MG, LIPID #### [facility] [address] [place] [address] Thyroxine (T4) free [Mass/vo lume] in Serum or PlasmaOrdered By: Justin Francisco on 01-03-2022 Free T4 [Mass/Vol] 1.10 ng/dL 0.61-1.12 [facility] Urine Cultureon 01-03-2022 Bacteria identified Cx Nom (U) ORGANISM: Escherichia coli (O:ESCCOL) Addison Count >100,000 Aerobic AHMET Charge (NUC86) ---- [...] RESISTANT TO ALL B-LACTAM DRUGS. PERFORMED BY: [place] [address] PATHOLOGIST MATERIALS ANALYST ANTONY ELIAS M.D. Normal [facility] Comment on above: Performed By: #### C BC, CMP, PHOS, MG, LIPID #### [facility] [address] [place] [address] Urine bacteria detection by automated methodOrdered By: Justin Francisco on 01-03-2022 Bacteria Auto Ql (U) 2+ None Seen [facility] Urine clarity by refractomet ry automatedOrdered By: Justin Francisco on 01-03-2022 Clarity Refractometry automated (U) Clear Clear [facility] Urine cocaine detectionOrder ed By: Justin Francisco on 01-03-2022 Cocaine Ql (U) Negative Negative [facility] Urine glucose measurement by automated test strip (mass/volume)Ordered By: Justin Francisco on 01-03-2022 Glucose Auto test strip (U) [Mass/Vol] Normal mg/dL Normal [facility] Urine hemoglobin detection b y automated test stripOrdered By: Justin Francisco on 01-03-2022 Hemoglobin Auto test strip Ql (U) Negative Negative [facility] Urine leukocyte esterase det ection by automated test stripOrdered By: Justin Francisco on 01-03-2022 Leukocyte esterase Auto test strip Ql (U) 2+ Negative [facility] Urobilinogen Auto test strip (U) [Mass/Vol]Ordered By: Justin Francisco on 01-03-2022 Urobilinogen (U) [Mass/Vol] Normal mg/dL Normal [facility] Valproic Acid (in house)on 1 Valproic Acid (in house) 59.0 ug/mL Normal 50.0-100.0 [facility] Comment on above: Result Comment: Last dose: - PERFORMED BY: [facility] [address] [place] [address] PATHOLOGIST MATERIALS ANALYST ANTONY ELIAS M.D. Performed By: #### C MP, T4F, TSH3, CBC, ETOH, JUAN, ACET, VALP #### [facility] [address] Yeast detection in urine sed iment by light microscopyOrdered By: Justin Francisco on 01-03-2022 Yeast LM Ql (Urine sed) None seen [HPF] None Se en [facility] pH Auto test strip (U)Ordere d By: Justin Francisco on 01-03-2022 pH (U) 5.5 [pH] 5.0-9.0 [facility] CBC AUTO DIFFon 10-27-2021 BASO # 0.1 103/ul Normal 0.0-0.1 [facility] Comment on above: Performed By: #### C BC ####[facility] [address] [place] [id number]. Julio Goddard Basophils/100 WBC (Bld) 0.6 % Normal 0.2-2.0 [facility] Comment on above: Performed By: #### C BC ####[facility] [address] [place] [address]Dr. Julio Goddard EO # 0.2 103/ul Normal 0.0-0.7 [facility] Comment on above: Performed By: #### C BC ####[facility] [address] [place] [address]Dr. Julio Goddard Eosinophils/100 WBC (Bld) 2.4 % Normal 0.9-7.0 [facility] Comment on above: Performed By: #### C BC ####[facility] [address] [place] [address]Dr. Julio Goddard Erythrocyte distribution width (RBC) [Ratio] 15.0 % Normal 11.0-15.0 [facility] Comment on above: Performed By: #### C BC ####[facility] [address] [place] [address]Dr. Julio Goddard Hematocrit (Bld) [Volume fraction] 37.4 % Normal 36.0-48.0 [facility] Comment on above: Performed By: #### C BC ####[facility] [address] [place] [address]Dr. Julio Goddard Hemoglobin (Bld) [Mass/Vol] 12.2 g/dL Normal 12.0-16.0 [facility] Comment on above: Performed By: #### C BC ####[facility] [address] [place] [id number]. Julio Goddard IG # 0.04 10e3/ul Critically high 0.00-0.03 [facility] Comment on above: Performed By: #### C BC ####[facility] [address] [place] [id number]. Julio Goddard IG % 0.4 % Normal 0.0-0.5 [facility] Comment on above: Performed By: #### C BC ####[facility] [address] [place] [id number]. Julio Goddard LYMPH # 2.3 103/ul Normal 1.2-3.8 [facility] Comment on above: Performed By: #### C BC ####[facility] [address] [place] [id number]. Julio Goddard Lymphocytes/100 WBC (Bld) 23.6 % Normal 20.5-60.0 [facility] Comment on above: Performed By: #### C BC ####[facility] [address] [place] [id number]. Julio Goddard MANUAL DIFF REQ NO Normal [facility] Comment on above: Performed By: #### C BC ####[facility] [address] [place] [id number]. Julio Goddard MCH (RBC) [Entitic mass] 29.3 pg Normal 26.7-34.0 [facility] Comment on above: Performed By: #### C BC ####[facility] [address] [place] [id number]. Julio Goddard MCHC (RBC) [Mass/Vol] 32.6 g/dL Normal 29.9-35.2 [facility] Comment on above: Performed By: #### C BC ####[facility] [address] [place] [id number]. Julio Goddard MCV (RBC) [Entitic vol] 89.7 fL Normal 81.0-99.0 [facility] Comment on above: Performed By: #### C BC ####[facility] [address] [place] [id number]. Julio Goddard MONO # 0.6 103/ul Normal 0.3-0.8 [facility] Comment on above: Performed By: #### C BC ####[facility] [address] [place] [id number]. Julio Goddard Monocytes/100 WBC (Bld) 5.5 % Normal 1.7-12.0 [facility] [facility] Comment on above: Performed By: #### C BC ####[facility] [place] [facility] [address] [place] [id number]. Julio Goddard NEUT # 6.7 103/ul Critically high 1.4-6.5 [facility] Comment on above: Performed By: #### C BC ####[facility] [place] [facility] [address] [id number]. Julio Goddard Neutrophils/100 WBC (Bld) 67.5 % Normal 43.0-75.0 [facility] Comment on above: Performed By: #### C BC ####[facility] [place] [facility] [address] [id number]. Julio Goddard Platelet mean volume (Bld) [Entitic vol] 10.2 fL Normal 9.5-13.5 [facility] Comment on above: Performed By: #### C BC ####[facility] [place] [facility] [address] [id number]. Julio Goddard PLT 296 103/ul Normal 150-450 [facility] Comment on above: Performed By: #### C BC ####[facility] [place] [facility] [address] [id number]. Julio Goddard RBC 4.17 106/ul Critically low 4.20-5.40 [facility] Comment on above: Performed By: #### C BC ####[facility] [place] [facility] [address] [id number]. Julio Goddard WBC 9.9 103/ul Normal 4.0-11.0 [facility] Comment on above: Performed By: #### C BC ####[facility] [place] [facility] [address] [id number]. Julio Goddard LIPID PROFILEon 10-27-2021 CHOL-HDL RATIO NORM SEE BELOW Normal [facility] Comment on above: Result Comment: 3.3 - 4.4 LOW RISK 4.4 - 7.1 AVERAGE RISK 7.1 - 11.0 MODERATE RISK >11.0 HIGH RISK Performed By: #### C MP, LIPID ####[facility] [place] [facility] [address] [id number]. Julio Goddard Cholesterol [Mass/Vol] 148 mg/dL Normal <=200 [facility] Comment on above: Performed By: #### C MP, LIPID ####[facility] [place] [facility] [address] [id number]. Julio Goddard Cholesterol in HDL [Mass/Vol] 60 mg/dL Normal 40-60 [facility] Comment on above: Performed By: #### C MP, LIPID ####[facility] [place] [facility] [address] [id number]. Hiralharesh Rupesh Cholesterol in LDL [Mass/Vol] 72.2 mg/dL Normal [facility] Comment on above: Performed By: #### C MP, LIPID ####[facility] [place] [facility] [address] [id number]. Hiralharesh Rupesh Cholesterol.total/Tila sterol in HDL [Mass ratio] 2.5 {ratio} Normal [facility] Comment on above: Performed By: #### C MP, LIPID ####[facility] [place] [facility] [address] [id number]. Julio Goddard HDL NORMAL > or = 60 mg/dl - LO W CARDIOVASCULAR RISK <40 mg/dl - HIGH CARDIOVASCULAR RISK Normal [facility] Comment on above: Performed By: #### C MP, LIPID ####[facility] [place] [facility] [address] [id number]. Julio Goddard LDL CALC NORMAL SEE BELOW Normal [facility] Comment on above: Result Comment: <100 mg/dl OPTIMAL 100 - 129 mg/dl NEAR OR ABOVE OPTIMAL 130 - 159 mg/dl BORDERLINE HIGH 160 - 189 mg/dl HIGH >190 mg/dl VERY HIGH Performed By: #### C MP, LIPID ####[facility] [place] [facility] [address] [id number]. Julio Goddard Triglyceride [Mass/Vol] 79 mg/dL Normal <=150 T [facility] Comment on above: Performed By: #### C MP, LIPID ####[facility] [place] [facility] [address] [place], [place] [address]Dr. Julio Goddard VLDL CALC 15.8 mg/dL Normal [facility] Comment on above: Performed By: #### C MP, LIPID ####[facility] [place] [facility] [address] [place], [place] [address]Dr. Julio Goddard PROF 14(COMP METB)on 022 Albumin [Mass/Vol] 3.7 g/dL Normal 3.4-5.0 [facility] Comment on above: Performed By: #### C MP, LIPID #### [facility] [place] [facility] [address] [address] [address] Julio Goddard Albumin/Globulin [Mass ratio] 1.0 {ratio} Normal [facility] Comment on above: Performed By: #### C MP, LIPID #### [facility] [place] [facility] [address] [address] [address] Julio Goddard ALP [Catalytic activity/Vol] 53 U/L Normal 46-116 [facility] Comment on above: Performed By: #### C MP, LIPID #### [facility] [place] [facility] [address] [address] [address] Julio Goddard ALT [Catalytic activity/Vol] 15 U/L Normal 14-59 [facility] Comment on above: Performed By: #### C MP, LIPID #### [facility] [place] [facility] [address] [address] [address] Julio Goddard Anion gap [Moles/Vol] 16.1 mmol/L Normal [facility] Comment on above: Performed By: #### C MP, LIPID #### [facility] [place] [facility] [address] [address] [address] Jluio Goddard AST [Catalytic activity/Vol] 8 U/L Critically low 15-37 [facility] Comment on above: Performed By: #### C MP, LIPID #### [facility] [place] [facility] [address] [address] [address] Julio Goddard Bilirubin [Mass/Vol] 0.5 mg/dL Normal 0.2-1.0 [facility] Comment on above: Performed By: #### C MP, LIPID #### [facility] [place] [facility] [address] [address] [address] Julio Goddard Calcium [Mass/Vol] 9.1 mg/dL Normal 8.5-10.1 [facility] Comment on above: Performed By: #### C MP, LIPID #### [facility] [place] [facility] [address] [address] [address] Julio Goddard Chloride [Moles/Vol] 106 mmol/L Normal 98-107 [facility] Comment on above: Performed By: #### C MP, LIPID #### [facility] [place] [facility] [address] [address] [address] Julio Goddard CO2 [Moles/Vol] 24.1 mmol/L Normal 21.0-32.0 [facility] Comment on above: Performed By: #### C MP, LIPID #### [facility] [place] [facility] [address] [address] [address] Julio Goddard Creatinine [Mass/Vol] 1.40 mg/dL Critically high 0.55-1.02 [facility] Comment on above: Performed By: #### C MP, LIPID #### [facility] [place] [facility] [address] [address] [address] Julio Goddard EGFR-AF AUSTRIAN 47 mL/min/1.73m2 Critically low >=60 [facility] Comment on above: Performed By: #### C MP, LIPID #### [facility] [place] [facility] [address] [address] [address] Julio Goddard EGFR-NON AF AUSTRIAN 39 mL/min/1.73m2 Critically low >=60 [facility] Comment on above: Performed By: #### C MP, LIPID #### [facility] [place] [facility] [address] [address] [address] Julio Goddard Globulin (S) [Mass/Vol] 3.6 g/dL Normal T [facility] Comment on above: Performed By: #### C MP, LIPID #### [facility] [place] [facility] [address] [address] [address] Julio Goddard Glucose [Mass/Vol] 95 mg/dL Normal 74-106 [facility] Comment on above: Performed By: #### C MP, LIPID #### [facility] [place] [facility] [address] [address] [address] Julio Goddard Potassium [Moles/Vol] 4.2 mmol/L Normal 3.5-5.1 [facility] Comment on above: Performed By: #### C MP, LIPID #### [facility] [place] [facility] [address] [address] [address] Julio Goddard Protein [Mass/Vol] 7.3 g/dL Normal 6.4-8.2 [facility] Comment on above: Performed By: #### C MP, LIPID #### [facility] [place] [facility] [address] [address] [address] Julio Goddard Sodium [Moles/Vol] 142 mmol/L Normal 136-145 [facility] Comment on above: Performed By: #### C MP, LIPID #### [facility] [place] [facility] [address] [place] [address] Dr. Julio Goddard Urea nitrogen [Mass/Vol] 18.0 mg/dL Normal 7.0-18.0 [facility] Comment on above: Performed By: #### C MP, LIPID #### [facility] [place] [facility] [address] [place] [address] Dr. Julio Goddard Urea nitrogen/Creatinine [Mass ratio] 12.9 mg/mg Normal [facility] Comment on above: Performed By: #### C MP, LIPID #### [facility] [place] [facility] [address] [place] [address] Dr. Julio Goddard INSULINon 03-23-2021 Insulin 10.0 uIU/mL Normal 2.6-24.9 [facility] Comment on above: Performed By: #### I NSULIN #### [facility] [place] [facility] [address] [place] [address] Dr. Julio Goddard VIT D 25-OH LABCORPon 2020 Vitamin D, 25-Hydroxy 11.8 ng/mL Critically low 30.0-100.0 [facility] Comment on above: Result Comment: Swati min D deficiency has been defined by the [place] [employer] and an Endocrine Society practice guideline as a level of serum 25-OH vitamin D less than 20 ng/mL (1,2). The Endocrine Society went on to further define vitamin D insufficiency as a level between 21 and 29 ng/mL (2). 1. IOM ([place] of [employer]). 2010. Dietary reference intakes for calcium and D. Gerardo [place]: The National Academies Press. 2. Matt MF, Wilma [place], Shiraz ELIZONDO, et al. Evaluation, treatment, and prevention of vitamin D deficiency: an Endocrine Society clinical practice guideline. JCEM. 2010; 96(7):1911-30. Performed By: #### V ITADLC ####[facility] [place] [facility] [address] [place], [place] [address]Dr. Julio Goddard CBC AUTO DIFFon 03-22-2021 BASO # 0.1 103/ul Normal 0.0-0.1 [facility] Comment on above: Performed By: #### C BC #### [facility] [place] [facility] [address] [address] [address] Julio Goddard Basophils/100 WBC (Bld) 0.8 % Normal 0.2-2.0 [facility] Comment on above: Performed By: #### C BC #### [facility] [place] [facility] [address] [address] [address] Julio Goddard EO # 0.2 103/ul Normal 0.0-0.7 [facility] Comment on above: Performed By: #### C BC #### [facility] [place] [facility] [address] [address] [address] Jluio Goddard Eosinophils/100 WBC (Bld) 2.6 % Normal 0.9-7.0 [facility] Comment on above: Performed By: #### C BC #### [facility] [place] [facility] [address] [address] [address] Julio Goddard Erythrocyte distribution width (RBC) [Ratio] 14.2 % Normal 11.0-15.0 [facility] Comment on above: Performed By: #### C BC #### [facility] [place] [facility] [address] [address] [address] Julio Goddard Hematocrit (Bld) [Volume fraction] 37.4 % Normal 36.0-48.0 [facility] Comment on above: Performed By: #### C BC #### [facility] [place] [facility] [address] [place] [address] Dr. Julio Goddard Hemoglobin (Bld) [Mass/Vol] 11.9 g/dL Critically low 12.0-16.0 [facility] Comment on above: Performed By: #### C BC #### [facility] [place] [facility] [address] [place] [address] Dr. Julio Goddard IG # 0.02 10e3/ul Normal 0.00-0.03 [facility] Comment on above: Performed By: #### C BC #### [facility] [place] [facility] [address] [place] [address] Dr. Julio Goddard IG % 0.3 % Normal 0.0-0.5 [facility] Comment on above: Performed By: #### C BC #### [facility] [place] [facility] [address] [place] [address] Dr. Julio Goddard LYMPH # 1.8 103/ul Normal 1.2-3.8 [facility] Comment on above: Performed By: #### C BC #### [facility] [place] [facility] [address] [place] [address] Dr. Julio Goddard Lymphocytes/100 WBC (Bld) 27.6 % Normal 20.5-60.0 [facility] Comment on above: Performed By: #### C BC #### [facility] [place] [facility] [address] [place] [address] Dr. Julio Goddard MANUAL DIFF REQ NO Normal [facility] Comment on above: Performed By: #### C BC #### [facility] [place] [facility] [address] [place] [address] Dr. Julio Goddard MCH (RBC) [Entitic mass] 29.1 pg Normal 26.7-34.0 [facility] Comment on above: Performed By: #### C BC #### [facility] [place] [facility] [address] [place] [address] Dr. Julio Goddard MCHC (RBC) [Mass/Vol] 31.8 g/dL Normal 29.9-35.2 [facility] Comment on above: Performed By: #### C BC #### [facility] [place] [facility] [address] [address] [address] Julio Goddard MCV (RBC) [Entitic vol] 91.4 fL Normal 81.0-99.0 [facility] Comment on above: Performed By: #### C BC #### [facility] [place] [facility] [address] [address] [address] Julio Goddard MONO # 0.6 103/ul Normal 0.3-0.8 [facility] Comment on above: Performed By: #### C BC #### [facility] [place] [facility] [address] [address] [address] Julio Goddard Monocytes/100 WBC (Bld) 8.7 % Normal 1.7-12.0 [facility] Comment on above: Performed By: #### C BC #### [facility] [place] [facility] [address] [place] [address] Dr. Julio Goddard NEUT # 3.9 103/ul Normal 1.4-6.5 [facility] Comment on above: Performed By: #### C BC #### [facility] [place] [facility] [address] [place] [address] Dr. Julio Goddard Neutrophils/100 WBC (Bld) 60.0 % Normal 43.0-75.0 [facility] Comment on above: Performed By: #### C BC #### [facility] [place] [facility] [address] [place] [address] Dr. Julio Goddard Platelet mean volume (Bld) [Entitic vol] 10.1 fL Normal 9.5-13.5 [facility] Comment on above: Performed By: #### C BC #### [facility] [place] [facility] [address] [place] [address] Dr. Julio Goddard PLT 263 103/ul Normal 150-450 [facility] Comment on above: Performed By: #### C BC #### [facility] [place] [facility] [address] [address] [address] Julio Goddard RBC 4.09 106/ul Critically low 4.20-5.40 [facility] Comment on above: Performed By: #### C BC #### [facility] [place] [facility] [address] [address] [address] Julio Goddard WBC 6.5 103/ul Normal 4.0-11.0 [facility] Comment on above: Performed By: #### C BC #### [facility] [place] [facility] [address] [address] [address] Julio Goddard FREE THYROXINE INDEX T7on FTI 3.50 Normal [facility] Comment on above: Performed By: #### C MP, T7, LIPID, TSH #### [facility] [place] [facility] [address] [address] [address] Julio Goddard T3U 35.0 % Normal 23.5-40.5 [facility] Comment on above: Performed By: #### C MP, T7, LIPID, TSH #### [facility] [place] [facility] [address] [place] [address] Dr. Julio Goddard T4 [Mass/Vol] 10.00 ug/dL Normal 5.53-11.00 [facility] Comment on above: Performed By: #### C MP, T7, LIPID, TSH #### [facility] [place] [facility] [address] [address] [address] Julio Goddard GLYCOHEMOGLOBIN A1Con 2020 ADA RECOMMENDATION ADA THERAPEUTIC TARGET 6.0 - 7.0 ACTION SUGGESTED > 7.0 Normal [facility] Comment on above: Performed By: #### A 1C #### [facility] [place] [facility] [address] [address] [address] Julio Goddard Glucose [Mass/Vol] 103 mg/dL Normal [facility] Comment on above: Performed By: #### A 1C #### [facility] [place] [facility] [address] [place] [address] Dr. Julio Goddard HbA1c (Bld) [Mass fraction] 5.2 % Normal <=6.0 [facility] Comment on above: Performed By: #### A 1C #### [facility] [place] [facility] [address] [place] [address] Dr. Julio Goddard IRONon 03-22-2021 Iron [Mass/Vol] 55.0 ug/dL Normal 37.0-170.0 [facility] Comment on above: Performed By: #### I MARIA E ####[facility] [place] [facility] [address] [place], [place] [address]hDr. Julio Goddard LIPID PROFILEon 03-22-2021 CHOL-HDL RATIO NORM SEE BELOW Normal [facility] Comment on above: Result Comment: 3.3 - 4.4 LOW RISK 4.4 - 7.1 AVERAGE RISK 7.1 - 11.0 MODERATE RISK >11.0 HIGH RISK Performed By: #### C MP, T7, LIPID, TSH #### [facility] [place] [facility] [address] [address] [address] Julio Goddard Cholesterol [Mass/Vol] 163 mg/dL Normal <=200 Th [facility] Comment on above: Performed By: #### C MP, T7, LIPID, TSH #### [facility] [place] [facility] [address] [address] [address] Julio Goddard Cholesterol in HDL [Mass/Vol] 65 mg/dL Normal [facility] Comment on above: Performed By: #### C MP, T7, LIPID, TSH #### [facility] [place] [facility] [address] [address] [address] Julio Goddard Cholesterol in LDL [Mass/Vol] 80.8 mg/dL Normal [facility] Comment on above: Performed By: #### C MP, T7, LIPID, TSH #### [facility] [place] [facility] [address] [address] [address] Julio Goddard Cholesterol.total/Tila sterol in HDL [Mass ratio] 2.5 {ratio} Normal [facility] Comment on above: Performed By: #### C MP, T7, LIPID, TSH #### [facility] [place] [facility] [address] [address] [address] Julio Goddard HDL NORMAL > or = 60 mg/dl - LO W CARDIOVASCULAR RISK <40 mg/dl - HIGH CARDIOVASCULAR RISK Normal [facility] Comment on above: Performed By: #### C MP, T7, LIPID, TSH #### [facility] [place] [facility] [address] [address] [address] Julio Goddard LDL CALC NORMAL SEE BELOW Normal [facility] Comment on above: Result Comment: <100 mg/dl OPTIMAL 100 - 129 mg/dl NEAR OR ABOVE OPTIMAL 130 - 159 mg/dl BORDERLINE HIGH 160 - 189 mg/dl HIGH >190 mg/dl VERY HIGH Performed By: #### C MP, T7, LIPID, TSH #### [facility] [place] [facility] [address] [address] [address] Julio Goddard Triglyceride [Mass/Vol] 86 mg/dL Normal <=150 [facility] Comment on above: Performed By: #### C MP, T7, LIPID, TSH #### [facility] [place] [facility] [address] [address] [address] Julio Goddard VLDL CALC 17.2 mg/dL Normal [facility] Comment on above: Performed By: #### C MP, T7, LIPID, TSH #### [facility] [place] [facility] [address] [address] [address] Julio Goddard PROF 14(COMP METB)on 021 Albumin [Mass/Vol] 3.5 g/dL Normal 3.5-5.0 [facility] Comment on above: Performed By: #### C MP, T7, LIPID, TSH #### [facility] [place] [facility] [address] [address] [address] Julio Goddard Albumin/Globulin [Mass ratio] 1.0 {ratio} Normal [facility] Comment on above: Performed By: #### C MP, T7, LIPID, TSH #### [facility] [place] [facility] [address] [address] [address] Julio Goddard ALP [Catalytic activity/Vol] 58 U/L Normal 38-126 [facility] Comment on above: Performed By: #### C MP, T7, LIPID, TSH #### [facility] [place] [facility] [address] [address] [address] Julio Goddard ALT [Catalytic activity/Vol] 16 U/L Normal 9-52 [facility] Comment on above: Performed By: #### C MP, T7, LIPID, TSH #### [facility] [place] [facility] [address] [address] [address] Julio Goddard Anion gap [Moles/Vol] 13.0 mmol/L Normal [facility] Comment on above: Performed By: #### C MP, T7, LIPID, TSH #### [facility] [place] [facility] [address] [address] [address] Julio Goddard AST [Catalytic activity/Vol] 10 U/L Critically low 14-36 [facility] Comment on above: Performed By: #### C MP, T7, LIPID, TSH #### [facility] [place] [facility] [address] [address] [address] Julio Goddard Bilirubin [Mass/Vol] 0.6 mg/dL Normal 0.2-1.3 [facility] Comment on above: Performed By: #### C MP, T7, LIPID, TSH #### [facility] [place] [facility] [address] [address] [address] Julio Goddard Calcium [Mass/Vol] 9.4 mg/dL Normal 8.4-10.2 [facility] Comment on above: Performed By: #### C MP, T7, LIPID, TSH #### [facility] [place] [facility] [address] [address] [address] Julio Goddard Chloride [Moles/Vol] 105 mmol/L Normal 98-107 [facility] [place] [facility] Comment on above: Performed By: #### C MP, T7, LIPID, TSH #### [facility] [place] [facility] [address] [place] [address] Dr. Julio Goddard CO2 [Moles/Vol] 28.3 mmol/L Normal 22.0-30.0 [facility] Comment on above: Performed By: #### C MP, T7, LIPID, TSH #### [facility] [place] [facility] [address] [address] [address] Julio Goddard Creatinine [Mass/Vol] 1.37 mg/dL Critically high 0.52-1.04 [facility] Comment on above: Performed By: #### C MP, T7, LIPID, TSH #### [facility] [place] [facility] [address] [place] [address] Dr. Julio Goddard EGFR-AF AUSTRIAN 48 mL/min/1.73m2 Critically low >=60 [facility] Comment on above: Performed By: #### C MP, T7, LIPID, TSH #### [facility] [place] [facility] [address] [address] [address] Julio Goddard EGFR-NON AF AUSTRIAN 40 mL/min/1.73m2 Critically low >=60 [facility] Comment on above: Performed By: #### C MP, T7, LIPID, TSH #### [facility] [place] [facility] [address] [address] [address] Julio Goddard Globulin (S) [Mass/Vol] 3.5 g/dL Normal [facility] Comment on above: Performed By: #### C MP, T7, LIPID, TSH #### [facility] [place] [facility] [address] [address] [address] Julio Goddard Glucose [Mass/Vol] 110 mg/dL Critically high 74-106 [facility] Comment on above: Performed By: #### C MP, T7, LIPID, TSH #### [facility] [place] [facility] [address] [address] [address] Julio Goddard Potassium [Moles/Vol] 4.3 mmol/L Normal 3.4-5.0 [facility] Comment on above: Performed By: #### C MP, T7, LIPID, TSH #### [facility] [place] [facility] [address] [address] [address] Julio Goddard Protein [Mass/Vol] 7.0 g/dL Normal 6.1-8.2 [facility] Comment on above: Performed By: #### C MP, T7, LIPID, TSH #### [facility] [place] [facility] [address] [address] [address] Julio Goddard Sodium [Moles/Vol] 142 mmol/L Normal 137-145 [facility] Comment on above: Performed By: #### C MP, T7, LIPID, TSH #### [facility] [place] [facility] [address] [address] [address] Julio Goddard Urea nitrogen [Mass/Vol] 13.0 mg/dL Normal 7.0-17.0 [facility] Comment on above: Performed By: #### C MP, T7, LIPID, TSH #### [facility] [place] [facility] [address] [address] [address] Julio Goddard Urea nitrogen/Creatinine [Mass ratio] 9.5 mg/mg Normal [facility] [place] [facility] Comment on above: Performed By: #### C MP, T7, LIPID, TSH #### [facility] [place] [facility] [address] [address] [address] Julio Goddard TSHon 03-22-2021 TSH 2.734 uIU/mL Normal 0.470-4.680 [facility] Comment on above: Performed By: #### C MP, T7, LIPID, TSH #### [facility] [place] [facility] [address] [address] [address] Julio Goddard TSH RANGE SEE BELOW Normal [facility] Comment on above: Result Comment: <0.3 4 UIU/ml HYPERTHYROID 0.34-5.60 UIU/ml EUTHYROID >5.60 UIU/ml HYPOTHYROID Performed By: #### C MP, T7, LIPID, TSH #### [facility] [place] [facility] [address] [place] [address] [address] Julio Goddard Vital Signs Date Time Vital Sign Value Performing Clinician Facility 02-12-2024 08:50-0500 Body height 157.5 cm Angelo De La Cruz MD Work Phone: [facility] 02-12-2024 08:50-0500 Body mass index (BMI) [Ratio] 34.75 kg/m2 Angelo De La Cruz MD Work Phone: [facility] 02-12-2024 08:50-0500 Body weight 86.18 kg Angelo De La Cruz MD Work Phone: [facility] 02-12-2024 08:50-0500 Diastolic blood pressure 76 mm[Hg] Angelo De La Cruz MD Work Phone: [facility] 02-12-2024 08:50-0500 Systolic blood pressure 119 mm[Hg] Angelo De La Cruz MD Work Phone: [facility] 02-05-2024 10:32-0500 Body height 157.5 cm Angelo De La Cruz MD Work Phone: [facility] 02-05-2024 10:32-0500 Body mass index (BMI) [Ratio] 34.75 kg/m2 Angelo De La Cruz MD Work Phone: [facility] 02-05-2024 10:32-0500 Body weight 86.18 kg Angelo De La Cruz MD Work Phone: [facility] 02-05-2024 10:32-0500 Diastolic blood pressure 81 mm[Hg] Angelo De La Cruz MD Work Phone: [facility] 02-05-2024 10:32-0500 Systolic blood pressure 121 mm[Hg] Angelo De La Cruz MD Work Phone: [facility] 11-27-2023 14:51-0400 Blood Pressure Location OXANA DEVEN [facility] 11-27-2023 14:51-0400 Diastolic blood pressure 96 mm[Hg] OXANA DEVEN [facility] 11-27-2023 14:51-0400 Heart rate 66 /min OXANA DEVEN [facility] 11-27-2023 14:51-0400 Systolic blood pressure 144 mm[Hg] OXANA DEVEN [facility] 08-21-2023 09:39-0400 Blood Pressure Location OXANA DEVEN [facility] 08-21-2023 09:39-0400 Diastolic blood pressure 63 mm[Hg] OXANA DEVEN [facility] 08-21-2023 09:39-0400 Heart rate 74 /min OXANA DEVEN [facility] 08-21-2023 09:39-0400 Respiratory rate 19 /min OXANA DEVEN [facility] 08-21-2023 09:39-0400 Systolic blood pressure 108 mm[Hg] OXANA CARVALHO [facility] 05-30-2022 13:47-0500 Body height 157.5 cm Scott Mcallister MD Work Phone: [facility] 05-30-2022 13:47-0500 Body mass index (BMI) [Ratio] 32.74 kg/m2 Scott Mcallister MD Work Phone: [facility] 05-30-2022 13:47-0500 Body weight 81.19 kg Scott Mcallister MD Work Phone: [facility] 05-30-2022 13:47-0500 Diastolic blood pressure 84 mm[Hg] Scott Mcallister MD Work Phone: [facility] 05-30-2022 13:47-0500 Heart rate 76 /min Scott Mcallister MD Work Phone: [facility] 05-30-2022 13:47-0500 Respiratory rate 16 /min Scott Mcallister MD Work Phone: [facility] 05-30-2022 13:47-0500 SaO2% (BldA) [Mass fraction] 97 % Scott Mcallister MD Work Phone: [facility] 05-30-2022 13:47-0500 Systolic blood pressure 129 mm[Hg] Scott Mcallister MD Work Phone: [facility] 02-28-2022 12:48-0500 Body height 157.5 cm Scott Mcallister MD Work Phone: [facility] 02-28-2022 12:48-0500 Body mass index (BMI) [Ratio] 32.74 kg/m2 Scott Mcallister MD Work Phone: [facility] 02-28-2022 12:48-0500 Body weight 81.19 kg Scott Mcallister MD Work Phone: [facility] 02-28-2022 12:48-0500 Diastolic blood pressure 83 mm[Hg] Scott Mcallister MD Work Phone: [facility] 02-28-2022 12:48-0500 Heart rate 78 /min Scott Mcallister MD Work Phone: [facility] 02-28-2022 12:48-0500 Respiratory rate 18 /min Scott Mcallister MD Work Phone: [facility] 02-28-2022 12:48-0500 SaO2% (BldA) [Mass fraction] 95 % Scott Mcallister MD Work Phone: [facility] 02-28-2022 12:48-0500 Systolic blood pressure 132 mm[Hg] Scott Mcallister MD Work Phone: [facility] 01-05-2022 11:19-0400 Diastolic blood pressure 79 mm[Hg] DO Justin Franicsco Work Phone: [facility] 01-05-2022 11:19-0400 Heart rate 75 /min DO Justin Francisco Work Phone: [facility] 01-05-2022 11:19-0400 Respiratory rate 18 /min DO Justin Nolan Work Phone: [facility] 01-05-2022 11:19-0400 SaO2% (BldA) [Mass fraction] 97 % DO Justin Francisco Work Phone: [facility] 01-05-2022 11:19-0400 Systolic blood pressure 126 mm[Hg] DO Justin Francisco Work Phone: [facility] 01-05-2022 08:17-0400 Body temperature 97.5 [degF] DO Justin Francisco Work Phone: [facility] 01-05-2022 04:44-0400 Body weight 79.8 kg DO Justin Francisco Work Phone: [facility] 01-04-2022 11:34-0400 Body height 157.48 cm DO Justin Francisco Work Phone: [facility] 01-03-2022 17:04-0400 Diastolic blood pressure 110 mm[Hg] DO Justin Francisco Work Phone: [facility] 01-03-2022 17:04-0400 Heart rate 88 /min DO Justin Francisco Work Phone: [facility] 01-03-2022 17:04-0400 Respiratory rate 20 /min DO Justin Francisco Work Phone: [facility] 01-03-2022 17:04-0400 SaO2% (BldA) [Mass fraction] 97 % DO Justin Francisco Work Phone: [facility] 01-03-2022 17:04-0400 Systolic blood pressure 180 mm[Hg] DO Justin Francisco Work Phone: [facility] 01-03-2022 14:43-0400 Body height 157.48 cm DO Justin Francisco Work Phone: [facility] 01-03-2022 14:43-0400 Body weight 80 kg DO Justin Francisco Work Phone: [facility] 01-03-2022 13:59-0400 Body temperature 98.5 [degF] DO Justin Francisco Work Phone: [facility] 10-14-2021 13:13-0400 Body height 157.5 cm Scott Mcallister MD Work Phone: [facility] 10-14-2021 13:13-0400 Body mass index (BMI) [Ratio] 32.92 kg/m2 Scott Mcallister MD Work Phone: [facility] 10-14-2021 13:13-0400 Body weight 81.65 kg Scott Mcallister MD Work Phone: [facility] 10-14-2021 13:13-0400 Diastolic blood pressure 85 mm[Hg] Scott Mcallister MD Work Phone: [facility] 10-14-2021 13:13-0400 Heart rate 76 /min Scott Mcallister MD Work Phone: [facility] 10-14-2021 13:13-0400 Respiratory rate 16 /min Scott Mcallister MD Work Phone: [facility] 10-14-2021 13:13-0400 SaO2% (BldA) [Mass fraction] 95 % Scott Mcallister MD Work Phone: [facility] 10-14-2021 13:13-0400 Systolic blood pressure 125 mm[Hg] Scott Mcallister MD Work Phone: [facility] 07-19-2021 12:55-0400 Body height 157.5 cm Scott Mcallister MD Work Phone: [facility] 07-19-2021 12:55-0400 Body mass index (BMI) [Ratio] 32.92 kg/m2 Scott Mcallister MD Work Phone: [facility] 07-19-2021 12:55-0400 Body weight 81.65 kg Scott Mcallister MD Work Phone: [facility] 07-19-2021 12:55-0400 Diastolic blood pressure 86 mm[Hg] Scott Mcallister MD Work Phone: [facility] 07-19-2021 12:55-0400 Heart rate 67 /min Scott Mcallister MD Work Phone: [facility] 07-19-2021 12:55-0400 Respiratory rate 16 /min Scott Mcallister MD Work Phone: [facility] 07-19-2021 12:55-0400 SaO2% (BldA) [Mass fraction] 98 % Scott Mcallister MD Work Phone: [facility] 07-19-2021 12:55-0400 Systolic blood pressure 126 mm[Hg] Scott Mcallister MD Work Phone: [facility] 09-24-2020 13:12-0400 Body height 157.5 cm Scott Mcallister MD Work Phone: [facility] 09-24-2020 13:12-0400 Body mass index (BMI) [Ratio] 32.92 kg/m2 Scott Mcallister MD Work Phone: [facility] 09-24-2020 13:12-0400 Body weight 81.65 kg Scott Mcallister MD Work Phone: [facility] 09-24-2020 13:12-0400 Diastolic blood pressure 89 mm[Hg] Scott Mcallister MD Work Phone: [facility] 09-24-2020 13:12-0400 Heart rate 67 /min Scott Mcallister MD Work Phone: [facility] 09-24-2020 13:12-0400 Respiratory rate 16 /min Scott Mcallister MD Work Phone: [facility] 09-24-2020 13:12-0400 SaO2% (BldA) [Mass fraction] 95 % Scott Mcallister MD Work Phone: [facility] 09-24-2020 13:12-0400 Systolic blood pressure 146 mm[Hg] Scott Mcallister MD Work Phone: [facility] 07-27-2020 12:59-0400 Body height 165.1 cm Scott Mcallister MD Work Phone: [facility] 07-27-2020 12:59-0400 Body mass index (BMI) [Ratio] 22.63 kg/m2 Scott Mcallister MD Work Phone: [facility] 07-27-2020 12:59-0400 Body weight 61.69 kg Scott Mcallister MD Work Phone: [facility] 05-17-2020 13:11-0500 BP Diastolic 103 mm[Hg] Scott Mcallister [facility] 05-17-2020 13:11-0500 BP Systolic 163 mm[Hg] [facility] 05-17-2020 13:0500 Height 157.5 cm [facility] 05-17-2020 [id number] Pulse (Heart Rate) 66 /min [facility] 05-17-2020 13:0500 Pulse Oximetry 96 % [facility] 05-17-2020 13:0500 Respiratory Rate 16 /min [facility] Encounters Encounter Date Encounter Type Care Provider Facility Start: 11-14-2024 ambulatory MATT CARVALHO Facility:[facility] Start: 06-17-2024 End: 06-17-2024 ambulatory Terrie FALL Facility:[facility] Start: 06-02-2024 ambulatory MATT CARVALHO Fac ility:[facility] Start: 02-12-2024 End: 02-12-2024 Isabela De La Cruz MD Work Phone: [facility] Start: 02-12-2024 End: 02-12-2024 Bamboo mere De La Cruz MD Work Phone: [...] encounter procedure OXANA CARVALHO [facility] Start: 11-27-2023 End: 11-27-2023 Refill Scott Mcallister MD Work Phone: [facility] Start: 11-02-2023 End: 11-04-2023 ambulatory [facility]IRE C [facility] Start: 11-02-2023 End: 11-04-2023 [facility] Start: 09-28-2023 End: 09-30-2023 ambulatory [facility] Start: 09-28-2023 End: 09-30-2023 Subsequent hospital visit by physician Peter Arnett MD Work Phone: [facility] Start: 08-21-2023 End: 08-21-2023 ambulatory PA-C OXANA CARVALHO Facility:[facility] Start: 08-21-2023 End: 08-21-2023 Patient encounter procedure OXANA CARVALHO [facility] Start: 05-30-2022 End: 05-30-2022 ambulatory SCOTT MCALLISTER [facility] Start: 05-30-2022 End: 05-30-2022 Office outpatient visit 15 minutes Scott Mcallister MD Work Phone: [facility] Comment on above: Bipolar 1 disorder, mixed, mild (HCC) (Primary Dx); Insomnia due to mental disorder; VICKIE (generalized anxiety disorder) Start: 05-10-2022 Refill Scott Mcallister MD Work Phone: [facility] Start: 03-30-2022 Refill Scott Mcallister MD Work Phone: [facility] Comment on above: 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; VICKIE (generalized anxiety disorder) Start: 02-28-2022 End: 02-28-2022 ambulatory UPENDER GEHLOT [facility] Start: 02-28-2022 End: 02-28-2022 Office outpatient visit 25 minutes Scott Mcallister MD Work Phone: [facility] Comment on above: Bipolar 1 disorder, depressed, mild (HCC) (Primary Dx); Insomnia due to mental disorder; VICKIE (generalized anxiety disorder) Start: 01-19-2022 End: 01-20-[address] PETER ARNETT Facility:[facility] Start: 01-09-2022 End: 01-09-2022 ambulatory UPENDER GEHLOT [facility] Start: 01-03-2022 End: 01-05-2022 ambulatory Peter Arnett Facility:[facility] Start: 01-03-2022 End: 01-05-2022 Evaluation and management of inpatient DO Justin Francisco Work Phone: [facility] Start: 01-03-2022 End: 01-05-2022 observation encounter DO Justin Francisco Work Phone: [facility] Work Phone: Start: 10-27-2021 End: 10-28-2021 ambulatory UPRANI MCALLISTER Facility:[facility] Start: 10-14-2021 End: 10-14-2021 ambulatory UPENDER GEHLOT [facility] Start: 10-14-2021 End: 10-14-2021 Office outpatient visit 15 minutes Scott Mcallister MD Work Phone: [facility] Comment on above: Bipolar 1 disorder, depressed, moderate (HCC) (Primary Dx); Insomnia due to mental disorder; VICKIE (generalized anxiety disorder) Start: 10-05-2021 ambulatory SCOTT MCALLISTER [facility] Start: 07-22-2021 ambulatory [facility] Start: 07-19-2021 End: 07-19-2021 ambulatory PETER ARNETT [facility] Start: 07-19-2021 End: 07-19-2021 Office outpatient visit 15 minutes Uprani Mcallister MD Work Phone: [facility] Comment on above: Bipolar 1 disorder, depressed, moderate (HCC) (Primary Dx); Insomnia due to mental disorder; VICKIE (generalized anxiety disorder) Start: 05-16-2021 Refill Sarah Leigh [facility] Comment on above: 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 (Primary Dx) 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 Start: 03-30-2021 Encounter for genera l adult medical examination without abnormal findings DR PETER ARNETT [facility] Start: 03-29-2021 Refill Nellie Sky MA [facility] Start: 03-22-2021 End: 03-23-[address] PETER ARNETT Facility:[facility] Start: 03-22-2021 End: 03-23-2021 Encounter for general adult medical examination without abnormal findings DR PETER ARNETT Facility:[facility] Start: 12-07-2020 Refill Lidia hernandez [employer] [facility] Comment on above: 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; VICKIE (generalized anxiety disorder) Start: 09-24-2020 End: 09-24-2020 Office outpatient visit 25 minutes Uprani Mcallister MD Work Phone: [facility] Comment on above: Bipolar 1 disorder, depressed, mild (HCC) (Primary Dx); Insomnia due to mental disorder; VICKIE (generalized anxiety disorder) Start: 08-31-2020 End: 08-31-2020 Refill Lidia Mahoney LPN [facility] Comment on above: 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; VICKIE (Generalized Anxiety Disorder) Start: 07-27-2020 End: 07-27-2020 Phys/qhp telephone evaluation 11-20 min Scott Mcallister MD Work Phone: [facility] Comment on above: Bipolar 1 disorder, depressed, mild (HCC) (Primary Dx); Insomnia due to mental disorder; VICKIE (Generalized Anxiety Disorder) Start: 05-17-2020 End: 05-17-2020 Office outpatient visit 15 minutes [employer] Work Phone: [facility] Comment on above: Bipolar 1 disorder, depressed, mild (HCC) (Primary Dx); VICKIE (Generalized Anxiety Disorder); Insomnia due to mental disorder Start: 04-06-2020 End: 04-06-2020 Phys/qhp telephone evaluation 11-20 min [employer] Work Phone: [facility] Comment on above: Bipolar 1 disorder, depressed, mild (HCC); VICKIE (Generalized Anxiety Disorder); Insomnia due to mental disorder Procedures Date Procedure Procedure Detail Performing Clinician Start: 02-12-2024 AUDITORY FUNCTION TESTS Lilibeth Pena [facility] Work Phone: Start: 01-03-2022 CT of head without contrast DO Justin Francisco Work Phone: Start: 05-19-2013 Colonoscopy Angelo neil MD Work Phone: Start: 04-02-2002 Kidney Blockage Surg ical Procedure OXANA CARVALHO Start: 04-02-1997 Cholecystectomy MATT Singh DEVEN Genital labium struc ture (body structure) OXANA CARVALHO SARS Antigen (LFIA) DO Ermias Francisco Work Phone: Trichilemmal cyst (disorder) OXANA DEVEN Urethral structure ( body structure) OXANA DEVEN Urine culture DO Justin Grant on Work Phone: Urine culture DO Justin Eliasyefri on Work Phone: Plan of Treatment Date Care Activity Detail Author Start: 02-05-2024 End: 02-05-2024 Patient encounter procedure 02/05/2024 10:30 AM EST Office Visit [facility] [address] [place] [address] Angelo De La Cruz MD [address] [facility] [address] [place] [address] Arrived [facility] Comment on above: Arrived Start: 12-02-2023 Influenza vaccination Influenza Vacc ine (#1) [facility] Start: 11-01-2023 Influenza vaccination Flu vacc ine (Season Ended) [facility] Start: 05-19-2023 Screening for malign ant neoplasm of colon [facility] Start: 2022 Respiratory Syncytia l Virus (RSV) or age 60 yrs+ (1 - 1-dose 60+ series) Respiratory Syncytial Virus (RSV) or age 60 yrs+ (1 - 1-dose 60+ series) [facility] Start: 12-01-2022 COVID-19 Vaccine ( season) COVID-19 Vaccine ( season) [facility] Start: 05-30-2022 End: 05-30-2022 Patient encounter procedure 05/30/2022 Office Visit Psychiatry Scott Mcallister MD [address] [place], [place] [id number] [facility] Start: 01-09-2022 End: 01-09-2022 Patient encounter procedure 01/09/2022 Office Visit Psychiatry Scott Mcallister MD [address] [place] [id number] [facility] Start: 01-05-2022 [facility] Start: 01-04-2022 Comprehensive metabo lic 2000 panel - Serum or Plasma [facility] Start: 01-04-2022 Lipid panel [facility] Start: 01-04-2022 Magnesium measurement F [facility] Start: 01-04-2022 Phosphate [Mass/volu me] in Serum or Plasma [facility] Start: 01-04-2022 [facility] Start: 01-03-2022 Referral to psychiatrist [facility] Start: 01-03-2022 Hospital admission [facility] Start: 01-03-2022 [facility] Start: 12-01-2021 Influenza vaccination [facility] Start: 10-14-2021 End: 10-14-2021 Patient encounter procedure 10/14/2021 Office Visit Psychiatry Scott Mcallister MD [address] [facility] [address] [place] [id number] [facility] Start: 07-28-2021 COVID-19 Vaccine (4 - Booster for Pfizer series) COVID-19 Vaccine (4 - Booster for Pfizer series) [facility] Start: 07-15-2021 End: 07-15-2021 Patient encounter procedure 07/15/2021 Office Visit Scott Moy MD [address] [facility] [address] [place] [id number] [facility] Start: 05-24-2021 COVID-19 Vaccine (4 - Booster for Pfizer series) COVID-19 Vaccine (4 - Booster for Pfizer series) [facility] Start: 04-18-2021 End: 04-18-2021 Patient encounter procedure 04/18/2021 Office Visit Psychiatry Scott Mcallister MD [address] [facility] [address] [place] [id number] [facility] Start: 01-12-2021 COVID-19 Vaccine (3 - Booster for Pfizer series) COVID-19 Vaccine (3 - Booster for Pfizer series) [facility] Start: 01-03-2021 End: 01-03-2021 Patient encounter procedure [facility] Start: 12-01-2020 Influenza vaccination [facility] Start: 09-24-2020 End: 09-24-2020 Patient encounter procedure 09/24/2020 Office Visit Psychiatry Scott Mcallister MD [address] [facility] [address] [place] [address] [phone] [facility] Start: 09-14-2020 End: 09-14-2020 Patient encounter procedure 09/14/2020 Office Visit Psychiatry Scott Mcallister MD [address] [place] [address] [phone] [facility] Start: 09-10-2020 End: 09-10-2020 Office Visit 09/10/2020 Office Visit Scott Moy MD [address] [place] [address] [phone] [facility] Start: 12-02-2019 Influenza vaccinatio n given Sequential Influenza Vaccine (#1) [facility] Start: 2012 Administration of he rpes zoster vaccine Zoster Vaccines (1 of 2) [facility] Start: 2012 Screening for malign ant neoplasm of colon [facility] Start: 2012 Shingles vaccine (1 of 2) Shingles vaccine (1 of 2) [facility] Start: 12-12-2007 Screening for malign ant neoplasm of colon [facility] Start: 2002 Lipid panel Lipids [facility] Start: 2002 Screening for malign ant neoplasm of breast [facility] Start: 1992 Screening for malign ant neoplasm of cervix [facility] Start: 12-12-1983 Screening for malign ant neoplasm of cervix Pap Smear [facility] Start: 1981 DTaP/Tdap/Td vaccine (1 - Tdap) DTaP/Tdap/Td vaccine (1 - Tdap) [facility] Start: 1980 Hepatitis C antibody , confirmatory test Hepatitis C Screening [facility] Start: 1980 [facility] Start: 1978 COVID-19 Vaccine (1 of 2) COVID-19 Vaccine (1 of 2) [facility] Start: 1977 HIV screening [facility] Start: 1974 Depression Screen Depression Screen [facility] Start: 1965 History and physical examination, annual for health maintenance Wellness Visit [facility] Start: 1962 Screening for malign ant neoplasm of cervix Pap Smear [facility] Start: 1962 Screening for malign ant neoplasm of colon [facility] Start: 1962 Screening mammography Mammogram [facility] Start: 1962 Tetanus vaccination Tetanus: Every 1 0yrs [facility] Bacteria identified in Urine by Culture [facility] Work Phone: End: 10-14-2022 Complete blood count with white cell differential, manual CBC and Differential Lab Routine Bipolar 1 disorder, depressed, moderate (HCC) 1 Occurrences starting 10/14/2021 until 10/14/2022 [facility] Comment on above: 1 Occurrences starti ng 10/14/2021 until 10/14/2022 End: 10-14-2022 Comprehensive metabolic 2000 panel - Serum or Plasma Comprehensive Metabolic Panel Lab Routine Bipolar 1 disorder, depressed, moderate (HCC) 1 Occurrences starting 10/14/2021 until 10/14/2022 [facility] Work Phone: Comment on above: 1 Occurrences starti ng 10/14/2021 until 10/14/2022 End: 10-14-2022 Lipid 1996 panel - Serum or Plasma Lipid Panel Lab Routine Bipolar 1 disorder, depressed, moderate (HCC) 1 Occurrences starting 10/14/2021 until 10/14/2022 [facility] Comment on above: 1 Occurrences starti ng 10/14/2021 until 10/14/2022 Patient Education High Blood Pre ssure (DC) Urinary Tract Infection, Adult (DC) Acute Kidney Injury (DC) Cefuroxime Hydralazine [facility] Work Phone: Patient referral [facility] Work Phone: Immunizations Immunization Date Immunization Notes Care Provider Fa [facility] 01-05-2022 influenza, injectabl e, quadrivalent, preservative free DO [facility] Work Phone: [facility] 01-05-2022 influenza virus vaccine, unspecified formulation Scott Mcallister MD Work Phone: [facility] 03-29-2021 COVID-19 mRNA, Comirnaty (Pfizer) DO Justin Columbus Work Phone: [facility] 07-13-2020 COVID-19 mRNA, Comirnaty (Pfizer) DO Justin Francisco Work Phone: [facility] 06-21-2020 COVID-19 Ino Verduzco (Pfizer) DO Justin Francisco Work Phone: [facility] Payers Date Payer Category Payer Private Health Insurance [employer] [id number] 2022 Self-pay 2014 Unknown [id number] 2014 Unknown MMO [employer] S UPER[employer] PPO [id number] 2014-Present [phone] [address] [place] [address] [id number] 1962 Unknown [id number] 2.16.840.1.282516.3.579.2. 593 1962 Unknown [id number] 2.16.840.1.563466.3.579.2. 593 1962 Unknown [id number] 2.16.840.1.999202.3.579.2. 593 1962 Unknown [id number] 2.16.840.1.579129.3.579.2. 593 1962 Unknown [id number] 2.16.840.1.137132.3.579.2. 903 1962 Unknown [id number] 2.16.840.1.938275.3.579.2. 903 1962 Unknown [id number] 2.16.840.1.107961.3.579.2. 903 1962 Unknown [id number] 2.16.840.1.185635.3.579.2. 903 1962 Unknown [id number] 2.16.840.1.639737.3.579.2. 903 1962 Unknown [id number] 2.16.840.1.046181.3.579.2. 3 1962 Unknown [id number] 2.16.840.1.644285.3.579.2. 3 1962 Unknown [id number] 2.16.840.1.878132.3.579.2. 174 1962 Unknown [id number] 2.16.840.1.359074.3.579.2. 174 1962 Unknown [id number] 2.16.840.1.695253.3.579.2. 174 1962 Unknown [id number] 2.16.840.1.555802.3.579.2. 174 1962 Unknown [id number] 2.16.840.1.691372.3.579.2. 1259 1962 Unknown [id number] 2.16.840.1.685703.3.579.2. 1259 1962 Unknown [id number] 2.16.840.1.051693.3.579.2. 1259 1962 Unknown [id number] 2.16.840.1.673609.3.579.2. 727 1962 Unknown [id number] 2.16.840.1.144175.3.579.2. 727 1962 Unknown [id number] 2.16.840.1.991633.3.579.2. 727 1962 Unknown [id number] 2.16.840.1.621634.3.579.2. 727 1959 Unknown [id number] Unknown [id number] 2.16.840.1.750054.3.579.2. 531 Social History Date Type Detail Facility Start: 04-06-2020 End: 01-30-2024 Tobacco smoking status NHIS Former smoker [facility] Start: 04-06-2020 End: 01-30-2024 Tobacco use and exposure Never used [facility] Start: 04-06-2020 End: 02-12-2024 Alcohol intake Ex-drinker (finding) [facility] Start: 1960 Sex Assigned At Not on file [facility] Exposure to SARS-CoV-2 (event) Unable to assess [facility] Start: 07-09-2021 End: 05-24-2022 Exposure to SARS-CoV-2 (event) Not sure [facility] Start: 01-03-2022 Tobacco smoking status NHIS Never smoked tobacco (finding) [facility] Start: 1960 Sex Assigned At Female F [facility] End: 04-02-2000 History of tobacco use Current smoker [facility] Start: 05-30-2022 End: 02-12-2024 History of Social function [facility] Start: 05-30-2022 End: 02-12-2024 Tobacco use panel [facility] Tobacco smoking status Never [facility] End: 04-02-2000 History of tobacco use Cigarette Smoker [facility] Tobacco smoking status NHIS Tobacco smoking consumption unknown [facility] Goals Date Patient Goal Desired Activity /State Functional Status Date Assessment Result Facility 11-27-2023 Functional Status N/A [facility] 08-21-2023 Functional Status N/A [facility] 01-05-2022 Functional status Patient at [facility] Work Phone: Mental Status Date Assessment Result Facility 01-05-2022 Cognitive function Cognitive Sta tus Patient at Baseline [facility] Work Phone: Clinical Notes 07-27-2020 to 06-17-2024 Lilibeth Pena, CCC-A - 02/12/2024 11:00 AM Duke De La Cruz MD - 02/12/2024 9:00 AM Duke De La Cruz MD - 02/05/2024 10:30 AM Krishna Mcallister MD - 05/30/2022 2:16 PM EST Note Date & Type Note Facility 06-17-2024 Note General Surgery Offi ce/Clinic Note Chief Complaint consultation for colonoscopy HPI Staff 63 year old female presents on consultation from Dr. Arnett for screening colonoscopy. Denies abdominal or rectal pain. No rectal bleeding or change in bowel habits. Denies nausea or vomiting. No unexplained weight loss. Patient had a previous colonoscopy but can not recall when. Verbalized she had polyps but unsure what the recall schedule was. No known family history of colon cancer. History of Present Illness 63 yo female with h/o htn, DMII, hyperlipidemia, hypothyroidism, CKD, VICKIE, bipolar d/o, nephrolithiasis, referred for colorectal screening; denies change in bms or blood in stools, no abd complaints; abd operations significant for cholecystectomy, last colonoscopy over 10 years ago, reportedly with polyps; no asa or NSAID use, no tobacco use; no fmhx of GI malignancy or IBD. Review of Systems PHQ Score Initial Depression Screen Score: 0 SCORE ROS - Provider Constitutional: no fever, no sweats, no weight loss. Eyes: yes glasses, no blurred vision, no visual loss. ENMT: no dentures, no hoarseness, no swallowing difficulties, no hearing loss, no ear infection(s), no nose bleeds. Cardiovascular: normal blood pressure, no chest pain, regular heartbeat, no heart murmur. Respiratory: no shortness of breath, no cough, no asthma, no wheezing. Gastrointestinal: no nausea, no vomiting, no diarrhea, no constipation, no blood in stool, no change in bowel habits, no abdominal pain, no hepatitis. Genitourinary: no kidney stones, no urine infection, no dysuria. Musculoskeletal: no pain, no weakness. Skin: no changing moles, no rash, no skin lumps. Neurologic: no seizures, no epilepsy, no headache. Psychiatric: no emotional or psychiatric problem. Heme/Lymph: no bleeding problems, no anemia, no blood clots, no transfusions. Allergy/Immunologic: no swollen lymph nodes/glands, no IV drug abuse. Other: Additional ROS info: Except as noted in the above Review of Systems and in the History of Present Illness, all other systems have been reviewed and are negative or noncontributory. Physical Exam Vitals & Measurements HR: 72(Peripheral) RR: 16 BP: 114/82 HT: 62 in HT: 157 cm WT: 90.6 kg WT: 199.739 lb BMI: 36.76 HEENT: normal conjunctiva, sclera clear, no scleral icterus, EOM intact, PERRLA, oral mucosa moist without lesions. Neck: trachea midline, no mass, symmetric, no thyromegaly or nodules, no adenopathy Respiratory: lungs CTA, respirations non labored. Cardiovascular: regular rate and rhythm, no murmur, no pedal edema or varicosities. Gastrointestinal: obese,soft, non distended, no tenderness, no masses, no palpable hernias, diastasis recti no, no hepatosplenomegaly; normal bs Lymphatic: no cervical adenopathy, no supraclavicular adenopathy. Musculoskeletal: normal gait, digits and nails without infection, nodes, cyanosis, clubbing. Skin: no rashes, no lesions, no ulcers, no subcutaneous nodules, induration. Psychiatric/Neuro: oriented to time, place, person, judgement normal, affect appropriate for age, insight intact, no focal deficits. Tests: , review of old records completed , Discussed surgical options, risks, and possible complications with patient. Assessment/Plan 1. Screening for malignant neoplasm of colon (Z12.11: Encounter for screening for malignant neoplasm of colon) plan colonoscopy under anesthesia, informed consent obtained. Follow-up No qualifying data available Problem List/Past Medical History Ongoing Anemia BMI 36.0-36.9,adult Chronic kidney disease Class 3 obesity DM II (diabetes mellitus, type II), controlled VICKIE (generalized anxiety disorder) HTN (hypertension) Hyperlipidemia, unspecified Hypothyroidism Kidney stones Mild depressed bipolar I disorder with mixed features Mixed incontinence Renal cyst Screening for malignant neoplasm of colon Historical Bipolar disorder, current episode mixed Procedure/Surgical History Kidney Blockage Surgical Procedure (2002), Cholecystectomy (1997), Colonoscopy, Fracture of tibia, Hematoma, Pilar cyst, Removal of pilonidal cyst, Urethra. Medications buPROPion 450 mg/24 hours (XL) oral tablet, extended release, 450 mg= 1 tab(s), Oral, Daily ClonazePAM 0.5 mg Tab, 0.5 mg= 1 tab(s), Oral, Daily doxazosin 2 mg Tab, 2 mg= 1 tab(s), Oral, BID ferrous sulfate 325 mg Tab, 325 mg= 1 tab(s), Oral, Daily hydrALAZINE 25 mg Tab, 25 mg= 1 tab(s), Oral, TID levothyroxine 75 mcg (0.075 mg) Tab, 75 mcg= 1 tab(s), Oral, Daily metoprolol tartrate 100 mg Tab, 100 mg= 1 tab(s), Oral, TID Norvasc 10 mg Tab, 10 mg= 1 tab(s), Oral, Daily Pantoprazole [address] Tab, 40 mg= 1 tab(s), Oral, Daily simvastatin 10 mg Tab, 10 mg= 1 tab(s), Oral, qPM traZODONE 100 mg Tab, 100 mg= 1 tab(s), Oral, Once a day (at bedtime) trospium 60 mg oral capsule, extended release, 60 mg= 1 cap(s), Oral, qAM, 3 refills Vitamin D2 2000 intl units oral capsule, 50 mcg= (more content not included)... [facility] Comment on above: Result Comment: Elec tronically Signed By: JUAN DAVID CID, Terrie Worthy\Date and Time Signed: 06/17/24 13:38 EDT 02-12-2024 History of Present illness Narrative History: [...] Type A tympanogram documented in this encounter [facility] 02-12-2024 History of Present illness Narrative Images [...] Date Noted Bipolar 1 disorder, depressed, mild ([facility]) 04/06/2020 VICKIE (generalized anxiety disorder) ([facility]) 04/06/2020 Insomnia due to mental disorder 04/06/2020 MDD (major depressive disorder) ([facility]) 01/18/2016 Severe episode of recurrent major depressive disorder, without psychotic features (HCC) ([facility]) 01/18/2016 Resolved Ambulatory Problems Diagnosis Date Noted [...] or split. cholecalciferol (Vitamin D-3) 50 MCG (2000 UT) [...] Recommend annual audio documented in this encounter [facility] 02-05-2024 History of Present illness Narrative Subjective [...] Date Noted Bipolar 1 disorder, depressed, mild ([facility]) 04/06/2020 VICKIE (generalized anxiety disorder) ([facility] 04/06/2020 Insomnia due to mental disorder 04/06/2020 MDD (major depressive disorder) ([facility] 01/18/2016 Severe episode of recurrent major depressive disorder, without psychotic features (HCC) ([facility] 01/18/2016 Resolved Ambulatory Problems Diagnosis Date Noted [...] or split. cholecalciferol (Vitamin D-3) 50 MCG (2000 UT) [...] week to remove documented in this encounter [facility] 11-27-2023 Hospital Discharge instructions Patient Education 11/27/2023 [...] nerve stimulation). ?For women, using a medical records coordinator to prevent urine leaks. This is a [...] right after experiencing incontinence. General instructions Take dpwx-tti-ienajrm and prescription medicines only as told by [...] important. Where to find more information [employer] [place] of Diabetes and Digestive and Kidney Diseases: www.niddk.nih.gov [employer]: www.urologyhealth.org Contact a health care [...] provider. Document Revised: 10/22/2020 Document Reviewed: 10/22/2020 [employer] Patient Education 2022 [employer]master. 11/27/2023 15:20:11 Overactive Bladder, Adult Overactive Bladder, [...] your health care provider. General instructions Take axhp-pxd-earsrsr and prescription medicines only as told by [...] provider. Document Revised: 12/06/2020 Document Reviewed: 12/06/2020 [employer] Patient Education 2022 Postmaster. Follow Up Care 08/21/2023 10:37:58 With:DEVEN GUTIERREZ, OXANA Schwartz, URL Address: [facility] [address] [place] [address] When: Unknown Comments:1 year f/up [facility] 11-27-2023 Note Patient Education Obstetrics and [...] health care provider. General instructions ? Take extw-aje-tzpizjt and prescription medicines only as told by [...] your health care (more content not included)... [facility] 08-21-2023 Note Chief Complaint New Pt. HPI [...] metformin. 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 1. [...] Trospium ER 60mg qd. Rx sent to [facility]. -Increase clear fluid intake -Avoid bladder irritants [...] When Contact Information OXANA CARVALHO PA-C, URL [address] [address] [phone] Additional Instructions: 3 mos (new med) Patient Education Urinary Incontinence Documentation recorded by the scribe Evy Gunderson accurately reflects the (more content not included)... [facility] Comment on above: Result Comment: Elec tronically [...] nerve stimulation). ?For women, using a medical records coordinator to prevent urine leaks. This is a [...] right after experiencing incontinence. General instructions Take ulpt-thg-iksyjre and prescription medicines only as told by [...] important. Where to find more information [employer] [place] of Diabetes and Digestive and Kidney Diseases: www.niddk.nih.gov [employer]: www.urologyhealth.org Contact a health care [...] provider. Document Revised: 10/22/2020 Document Reviewed: 10/22/2020 [employer] Patient Education 2022 Postmaster. Follow Up Care 05/07/2023 11:41:01 With:DEVEN GUTIERREZ, OXANA Schwartz, URL Address: [address] [address] [phone] When: Unknown Comments:3 mos (new med) [facility] 05-30-2022 History of Present illness Narrative [...] Continue with same provider ( Rocky @ [facility] in [place]) Follow up as scheduled or return early if needed. School or community referral: None Treatment Goals and Objectives discussed. Other Referrals/Consults/Psychological Testing: None Scott Mcallister documented in this encounter [facility] 03-13-2022 History of Present illness Narrative [...] Continue with same provider ( Rocky @ [facility] in [place]) Follow up as scheduled or return early if needed. School or community referral: None Treatment Goals and Objectives discussed. Other Referrals/Consults/Psychological Testing: None Scott Mcallister documented in this encounter [facility] 01-05-2022 Discharge summary Note Date/Time January 05, 2022 12:08pm [facility] [address] [place] [address] Discharge Summary Signed Patient: Kathy Porter MR#: [id number] : 1960 Acct:[id number] Age/Sex: 61 / F Adm Date: 2 Loc: Room: [address] [place] [address]: Henry Burnett MD Copies to: [...] % (Auto) 50.3, Lymph % (Auto) 33.1, [place] % (Auto) 12.5, Eos % (Auto) 3.5, Baso % (Auto) 0.6, Neut # (Auto) 2.6, Lymph # (Auto) 1.7, [place] # (Auto) 0.7, Eos # (Auto) 0.2, [...] <Electronically signed by Henry Burnett MD> 01/05/22 [address] [facility] Work Phone: 1(288) 737-819910-05-2022 Progress note Author Henry Burnett [facility] January 04, 2022 4:20pm Note Date/Time January 04, 2022 4: 20pm [facility] [address] [place] [address] Hospitalist Progress Note Signed Patient: Kathy Porter MR#: [id number] : 1960 Acct:[id number] Age/Sex: 61 / F Adm Date: 2 Loc: Room: [address] [place] [address] Type: ADM INOo Attending Dr: Henry Burnett [...] Flu Vac Quad (36mon+)Pf 0.5 Ml Syringe 3523-9970 IM 01/04/22 18:34 .ONCE ONE Irbesartan 300 [...] <Electronically signed by Henry Burnett MD> 01/04/22 [address] [facility] Work Phone: 1(348) 652-256210-05-2022 Consult note Author Graham Helm [facility] January 04, 2022 2:08pm Note Date/Time January 04, 2022 2: 04pm [facility] [address] [place] [address] Psychiatry Consult Note Signed Patient: Kathy Porter MR#: [id number] : 1960 Acct:[id number] Age/Sex: 61 / F Adm Date: 2 Loc: 3T Room: 0M0275-7 Type : ADM INOo Attending Dr: Henry [...] stated that she sees a psychiatrist in [place]. She reported that he is helping her [...] Appearance Clear Urine pH 5.5 Ur Specific [place] 1.012 Urine Protein Negative Urine Glucose (UA) [...] Color Urine Appearance Urine pH Ur Specific [place] Urine Protein Urine Glucose (UA) Urine Ketones Urine Occult Blood Urine Nitrite Ur Leukocyte Esterase Urine RBC Urine WBC Valproic Acid 59.0 01/04/22 10:13 RBC Hgb Hct MCV MCH MCHC RDW Plt Count MPV Sodium Potassium Chloride Carbon Dioxide Anion Gap BUN Creatinine Calcium Total Bilirubin AST ALT Alkaline Phosphatase Total Protein Albumin Urine Color Urine Appearance Urine pH Ur Specific [place] Urine Protein Urine Glucose (UA) Urine Ketones [...] signed by Graham Helm MD> 01/04/22 1408 [facility] Work Phone: 1(865) 133-921210-04-2022 History and physical note Author Henry Burnett [facility] January 03, 2022 6:58pm Note Date/Time January 03, 2022 4: 55pm 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 Decision was to admit the patient [...] % (Auto) 22.3 % (.) 01/03/22 14:35 [place] % (Auto) 8.9 % (.) 01/03/22 14:35 Eos % (Auto) 1.4 % (.) 01/03/22 14:35 Baso % (Auto) 0.6 % (.) 01/03/22 14:35 Neut # (Auto) 4.3 x10E3/uL (1.8-7.7) 01/03/22 14:35 Lymph # (Auto) 1.4 x10E3/uL (1.00-4.8) 01/03/22 14:35 [place] # (Auto) 0.6 x10E3/uL (0.0-0.8) 01/03/22 14:35 [...] pH 5.5 (5.0-9.0) 01/03/22 14:20 Ur Specific [place] 1.012 (1.001-1.030) 01/03/22 14:20 Urine Protein Negative [...] above plan. All questions answered Documented By: eHnry Burnett MD 01/03/22 16 52 Signed By: <Electronically signed by Henry Burnett MD> 01/03/22 [address] [facility] Work Phone: [phone]) 174-996707-15-2022 History of Present illness Narrative* Scott Mcallister [...] Continue with same provider ( Rocky @ [facility] in [place]) Follow up as scheduled or return early if needed. School or community referral: None Treatment Goals and Objectives discussed. Other Referrals/Consults/Psychological Testing: None Scott Mcallister documented in this [id number] History of Present illness Narrative* Scott Mcallister [...] Continue with same provider ( Rocky @ [facility] in [place]) Follow up as scheduled or return early if needed. School or community referral: None Treatment Goals and Objectives discussed. Other Referrals/Consults/Psychological Testing: None Scott Mcallister documented in this [id number] Miscellaneous Notes* Telephone Encounter - Sarah Leigh MA - 05/16/2021 11:04 AM EST Pt is completely out and wants a 30 day supply sent to the local pharmacy. Another refill encounterto follow with a 90 day supply to go to [facility] [employer] [facility]. documented in this [id number] History of Present illness Narrative* Scott Mcallister [...] the patient Scott Mcallister documented in this [id number] History of Present illness Narrative* Scott Mcallister MD - 07/27/2020 2:43 PM EDT Telephone Visit Via Phone Call [facility] [address] Telephone Visit [facility] 07/27/2020 Scott Mcallister MD Provider Location: [facility] Patient Location Stone Rougher: None Patient Location: Patient's Home Patient: Kathy [...] there are inherent diagnostic limitations compared to nash-wd-amuk evaluations. We elected toproceed with the telephone [...] Date:11/27/2023 03:00:00 PM Scheduled Provider:OXANA CARVALHO PA-C Location:[facility] Appointment Type:URO Office Visit [facility] evaluation note* Diagnosis Bipolar 1 disorder, [...] Altered mental status acute Coarse tremors acute [facility] Work Phone: Evaluation note* Diagnosis Onset Date Resolution Status Acute encephalopathy acute NAEEM (acute kidney injury) ac jessica Altered mental status acute Coarse tremors acute Hypertensive urgency acute UTI (urinary tract infection) acute [facility] Work Phone: Evaluation note* Diagnosis Bipolar [...] initial encounter- Primary documented in this encounter [facility] HealthcareEvaluation note* Diagnosis Sudden right hearing loss- Primary Unspecified sudden hearing loss Foreign body of right ear, initial encounter documented in this encounter [facility] HealthcareEvaluation note* Diagnosis Sensorineural hearing loss (SNHL) of both ears- Primary Ear pressure, right documented in this encounter [facility] HealthcareHospital course Narrative No data available for this section [facility] Hospital Discharge instructions Additional Instructions -Take Ceftin antibiotics treatment for UTI for 5 more days -Take new blood pressure medicine Hydralazine 25 mg three times a day. Hold if your BP <100/60 -Follow up with your primary doctor for blood pressure control and adjustment in medications if needed -[facility] Work Phone: Progress note No data available for this section [facility] History of Present Illness * Scott Mcallister MD - 04/09/2020 2:42 PM EST Telephone Visit Via Phone Call [facility] [address] [facility] [address] Telephone Visit [facility] 04/06/2020 Scott Mcallister MD Provider Location: [place] Patient Location Stone Rougher: None Patient Location: Patient's Home Patient: Kathy [...] there are inherent diagnostic limitations compared to ipzn-zt-mgtr evaluations. 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 Advance Directives and [...] Care Teams (unrecognized sec tion and content) Head Rigger Relationship Specialty Start Date End Date Peter Arnett MD [address] [place] [address] PCP - General Family Medicine 04/05/20 Head Rigger Relationship Specialty Start Date End Date Peter Arnett MD [address] [place] [address] PCP - General Family Medicine 04/05/20 Head Rigger Relationship Specialty Start Date End Date Peter Arnett MD [address] [place] [address] PCP - General Family Medicine 04/05/20 Head Rigger Relationship Specialty Start Date End Date Peter Arnett MD [address] [facility] [place] [address] PCP - General Family Medicine 04/05/20 Head Rigger Relationship Specialty Start Date End Date Peter Arnett MD [address] [place] [address] PCP - General Family Medicine 04/05/20 Team [...] Active Graham Helm MD Other Provider Active Head Rigger Relationship Specialty Start Date End Date Peter Arnett MD [address] [place] [address] PCP - General Family Medicine 04/05/20 Head Rigger Relationship Specialty Start Date End Date Peter Arnett MD [address] [place] [address] PCP - General Family Medicine 04/05/20 Head Rigger Relationship Specialty Start Date End Date Peter Arnett MD [address] [place] [address] PCP - General Family Medicine 04/05/20 Head Rigger Relationship Specialty Start Date End Date Peter Arnett MD [address] [place] [address] PCP - General Family Medicine 04/05/20 Head Rigger Relationship Specialty Start Date End Date Peter Arnett MD [address] [place] [address] PCP - General Family Medicine 04/05/20 Head Rigger Relationship Specialty Start Date End Date Peter Arnett MD [address] [place] [address] PCP - General Family Medicine 02/05/24 Valerie Moss MD [address] [place] [address] Referring Physician Family Medicine 01/29/24 Head Rigger Relationship Specialty Start Date End Date Peter Arnett MD [address] [place] [phone] PCP - General Family Medicine 02/05/24 Valerie Moss MD [facility] [place] [address] Referring Physician Family Medicine 01/29/24 Head Rigger Relationship Specialty [place] [address] [place] [phone] PCP - General Family Medicine 02/05/24 Valerie Moss MD [address] [place] [address] Referring Physician Family Medicine 01/29/24 Head Rigger Relationship Specialty Start Date End Date Peter Arnett MD [address] [place] [address] PCP - General Family Medicine 02/05/24 Valerie Moss MD [address] [place] [address] Referring Physician Family Medicine 01/29/24 Head Rigger Relationship Specialty Start Date End Date Peter Arnett MD [address] [place] [address] PCP - General Family Medicine 09/26/23 Goals (unrecognized section and content) Goals may be documented in a n alternate section No data available for this section No data available for this section INFORMATION SOURCE (unrecogn ized section and content) DATE CREATED AUTHOR [facility]/23/2022 [facility] DATE CREATED AUTHOR AUTHOR'S ORGANIZ ATION 05/06/2022 [facility] DATE CREATED AUTHOR AUTHOR'S ORGANIZ ATION 06/01/2022 [facility] DATE CREATED AUTHOR AUTHOR'S ORGANIZ ATION 11/06/2023 [facility] DATE CREATED AUTHOR AUTHOR'S ORGANIZ ATION 02/13/[address] [facility] DATE CREATED AUTHOR AUTHOR'S ORGANIZ ATION 06/19/2024 [facility] FOR RECORDS PERTAINING TO PATIENTS WHO ARE [...] BE BASED ON THE PRIMARY CLINICAL RECORDS. [facility]. provides no warranty or guarantee of the accuracy or completeness of information in this document.
[2024-07-02 07:33] VITALS: BP 130/85; PULSE 66; TEMP 36.6; O2SAT 98; BMI 35.9
[2024-07-02] MEDS: 0.9 % SODIUM CHLORIDE 500 ML 50 ML IV (07:42)
[2024-07-02 08:41] VITALS: BP 129/78; PULSE 65; TEMP 36.4; O2SAT 98
[2024-07-02 08:56] VITALS: BP 129/79; PULSE 67; O2SAT 98
[2024-07-02 09:11] VITALS: BP 149/98; PULSE 65; O2SAT 98
== END 2024-07-02 09:14 | disposition home or self-care (01) ==
PROVIDERS: PCP Family Medicine; Visit Provider Surgery
PROC: (CPT 812; principal; 2024-07-02 08:00)
DX: Z12.11 Encounter for screening for malignant neoplasm of colon (principal); K64.4 Residual hemorrhoidal skin tags; K57.30 Diverticulosis of large intestine without perforation or abscess without bleeding; I10 Essential (primary) hypertension; E11.9 Type 2 diabetes mellitus without complications; E78.5 Hyperlipidemia, unspecified; E03.9 Hypothyroidism, unspecified; F41.1 Generalized anxiety disorder; F31.9 Bipolar disorder, unspecified; Z87.442 Personal history of urinary calculi; Z90.49 Acquired absence of other specified parts of digestive tract; Z87.891 Personal history of nicotine dependence; K21.9 Gastro-esophageal reflux disease without esophagitis
CPT/HCPCS: 45378; J2704

== ENCOUNTER 2024-07-11 09:29 | Outpatient (OUT) | payer OTHER, SELFPAY ==
--- NOTE | 2024-07-11 | CT_ITS ---
The [address] [address] Patient Name: KATHY PORTER MRN: [id number] date: 1960 Sex: F Assigned Patient Location: CT Current Patient Location: CT Accession/Order Number: [id number] Exam Date: 07/11/2024 11:27 Report Date: 07/11/2024 11:40 At the request of: ROXANA LANE Procedure: CT foot LT wo con CT left foot without contrast TECHNIQUE: The CT exam was performed using one or more the following dose reduction techniques: Automated exposure control, adjustment of the MA and/or Kv according to patient size, or use of the iterative reconstruction technique. COMPARISON: No plain film imaging 06/18/2024 HISTORY: Follow-up imaging for concern for Lisfranc dislocation of the left foot There are chronic bony changes of the base of the second metatarsal present. Increased spacing between the second metatarsal and medial cuneiform identified. Chronic changes of the distal portion of the medial cuneiform. Chronic changes along distal portions of the middle and lateral cuneiforms. Mild chronic bony changes involving the medial portion of the base of the first metatarsal. Chronic bony changes involving the bases of the third and fourth metatarsals. Degenerative changes of the cuboid and metatarsal articulation. Articulation of the navicular and cuneiforms preserved. The calcaneal cuboid articulation preserved. Subtalar articulation preserved. Ankle mortise preserved. No acute displaced fracture identified. Soft tissues unremarkable. No gross tendon abnormality seen with CT examination. 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 No acute displaced fracture identified. Impression dictated by: Ethan Portillo M.D.07/11/2024 11:40 AM Dictation Location: [place] [address] Electronically authenticated by: [id number] Y Date: 07/11/2024 11:40
--- OUTSIDE RECORDS SUMMARY | 2024-07-11 09:40 | XMS_ITS | CCD ---
Author Organization [facility] Care Team Providers Care Senior Finance Manager Name Role Phone Peter Arnett Primary Care Provider [phone] DO Justin Francisco Emergency Provider MD Peter Arnett Primary Care Provider [phone] MD Henry Burnett Admit Provider MD Henry [...] Unavailable DR PETER ARNETT Primary Care Unavailable PATTHLOT, UPENDER Consulting Unavailable DR PETER ARNETT Admitting Unavailable DR PETER ARNETT Attending Unavailable DR PETER ARNETT Primary Care Unavailable DR PETER ARNETT Consulting Unavailable DR DANII CARTER V Consulting Unavailable Peter Arnett MD Primary Care Provider [phone] Peter Arnett Primary Care Unavailable Henry Burnett [...] Unavailable HOY, PETER M Primary Care Unavailable Nelida CID, Valerie Unavailable Peter Arnett MD Primary Care Provider [phone] Peter Arnett MD Primary Care Provider [phone] Terrie FALL Attending Unavailable Hoy, Peter Referring Unavailable Terrie FALL Attending Unavailable MATT CARVALHO Attending Unavailab MATT Bueno Attending Unavailab MATT Bueno Attending Unavailab le Melquiades, Peter Referring Unavailable NABILMISANGELO H Attending Unavailable VALERIE MOSS Referring Unavailable ANGELO DE LA CRUZ Attending Unavailable LILIBETH PENA Attending Unavailable GILMER RIVERA Attending Unavailable GILMER RIVERA Referring Unavailable Allergies Allergy Classification Reported Allergen(s) Allergy Type Date of Onset Reaction(s) Facility Sulfonamides (antibiotic) (3 sources) Sulfonamides (Antibiotic) Drug Allergy 2 Rash, Swelling [facility] (17 sources) Sulfonamides (Antibiotic); Translations: [Sulfa (Sulfonamide Antibiotics)] Propensity to adverse reactions to drug 2 Rash, Swelling [facility] (1 source) Sulfonamides (Antibiotic) Drug allergy (disorder) 3 [facility] (3 sources) Sulfonamides (Antibiotic); Translations: [sulfa drugs] Drug allergy Cutaneous eruption (morphologic abnormality) [facility] (10 sources) Sulfonamides (Antibiotic) Drug Intolerance 2 Rash, Swelling [facility] Work Phone: Medications Current Medications [...] 2022 12:00am cholecalciferol 0.025 mg oral capsule (20 sources) Vitamin D Start: 01-03-2022 End: 01-03-2022 [...] meal/food hydrALAZINE hydrochloride 25 mg oral tablet (13 sources) Arteriolar Vasodilator Start: 01-05-2022 irbesartan 300 mg oral tablet (20 sources) Angiotensin 2 Receptor Dimple Start: 10-02-2019 irbesartan 300 mg Tab Refills(s) 0 Start Date: 10/02/19 Status: Ordered levothyroxine sodium 0.075 mg oral tablet (2 sources) l-Thyroxine Start: 06-26-2024 take 1 tablet by mouth once daily in the morning levothyroxine (Synthroid, Levoxyl) 75 MCG tablet TAKE 1 TABLET BY MOUTH EVERY DAY IN THE MORNING ON AN EMPTY STOMACH FOR 30 DAYS 06/26/2024 Active metFORMIN hydrochloride 1000 mg oral tablet (18 sources) Biguanide Start: 01-26-2016 take 1 tablet by mouth twice daily at mealtime metFORMIN (GLUCOPHAGE) 1000 MG tablet Take 1 (one) tablet (1,000 mg total) by mouth 2 (two) times a day with meals . 01/26/2016 Active metoprolol tartrate 100 mg oral tablet (20 sources) beta-Adrenergic Dimple Start: 06-10-2024 metoprolol tartrate (Lopressor) 100 MG tablet 06/10/2024 Active Start: 01-03-2022 take 100 mg by mouth [...] chloride 60 mg extended release oral capsule (14 sources) Cholinergic Muscarinic Antagonist Start: 05-02-2024 trospium (Sanctura X R) 60 MG 24 hour capsule 05/02/2024 Active Start: 11-27-2023 take 1 capsule by [facility] once daily in the morning trospium 60 mg oral capsule, extended release 60 mg = 1 cap(s), Oral, qAM, # 90 cap(s), Refills(s) 3, Pharmacy: [facility], 158, cm, 11/27/23 15:03:00 EDT, Height/Length Dosing, 88, kg, 11/27/23 15:03:00 EDT, Weight Dosing Start Date: 11/27/23 Status: Ordered Start: 08-21-2023 take 1 capsule by [facility] once daily in the morning trospium 60 mg oral capsule, extended release 60 mg = 1 cap(s), Oral, qAM, # 30 cap(s), Refills(s) 11, Pharmacy: [facility]/pharmacy #[id number], 158, cm, 08/21/23 10:13:00 EDT, Height/Length Dosing, 88.5, kg, 08/21/23 10:13:00 EDT, Weight Dosing Start Date: 08/21/23 Status: Ordered take 3 tablets by [facility] once daily trospium (Sanctura) 20 MG tablet Take 60 mg by mouth Daily Active divalproex sodium 500 mg delayed release oral tablet (3 sources) Mood Stabilizer, Anti-epileptic Agent Start: 01-03-2022 take 1 tablet by mouth once daily Divalproex (Depakote) 500 mg Tablet,Delayed Release (Dr/Ec) Active 500 MG PO Daily before supper January 03, 2022 12:00am Start: 10-14-2021 [facility] divalproex (DEPAKOTE ER) 500 [...] bedtime), # 45 tab(s), Refills(s) 1, Pharmacy: [facility], 158, cm, 12/15/19 14:46:00 EDT, [...] Translations: [Hypertensive urgency] Onset: 01-03-2022 01-03-2022 Chronic Joint disorders and dislocations; trauma-related (4 sources) Traumatic dislocation of joint of foot; Translations: [Dislocation of tarsometatarsal joint of left foot, initial encounter] 07-08-2024 Episodic Miscellaneous mental health disorders (20 sources) Insomnia disorder related to another mental disorder; Translations: [Insomnia due to other mental disorder] Onset: 04-06-2020 04-06-2020 Chronic Mood disorders (20 sources) Mild depressed bipolar I disorder; Translations: [Bipolar disorder, current episode depressed, mild] Onset: 01-18-2016 Resolved: 08-25-2018 04-06-2020 Chronic Other connective tissue disease (2 sources) Plantar fasciitis; Translations: [Plantar fascial fibromatosis] 07-08-2024 Episodic Other diseases of kidney and ureters [...] Translations: [RADICULOPATHY LUMBAR REGION] Onset: 01-20-2022 Episodic Superficial injury; contusion (2 sources) Contusion of left foot; Translations: [Contusion of left foot, initial encounter] 07-08-2024 Episodic Unclassified (1 source) Encephalopathy, unspecified; Translations: [...] Name Value Interpretation Reference Range Facility XR Foot - left 3 [facility] Result: Appears to be slight step-off and possible johnathan fracture to the 2nd metatarsal significant for possible Lisfranc injury with negative other fractures identified and degenerative changes noted to midfoot [facility] Study observation (narrative) [facility] Reminderson 07-03-2024 Reminders Reminders From: Debra Hernandez LPN To: FILIBERTO - Clinical; Sent: 07/03/2024 13:59:47 EDT Show up: 06/01/2034 07:00:00 EST Subject: colonoscopy recall Due Date/Time: 07/02/2034 07:00:00 EDT Reminder/Recall Patient due for screening colonoscopy 07/02/2034. Normal [facility] Auditory function testson Right Ear: Mild to moderate sensorineural hearing loss above 500 Hz Left Ear: Mild sensorineural hearing loss from 1K Hz - 3K Hz rising to normal hearing at 4K Hz. Mild sensorineural hearing loss above 4K Hz [facility] Ambulatory Visit Summaryon 0 11-27-2023 Ambulatory Visit [...] 1 year f/up Where: [address] [place] [address] Medications What How Much When Instructions Unchanged trospium (trospium 60 mg oral capsule, extended release) 1 Capsules By Mouth Once a day (in the morning) Pickup at [facility] Unchanged amlodipine (Norvasc 10 mg [...] physician if questions or concerns Pharmacy Information [facility]: [address] [place] [phone] Allergies sulfa drugs (Rash) Problems Ongoing - [...] ability (more content not included)... Normal [facility] Urology Office/Clinic Noteon 11-27-2023 Urology Office/Clinic [...] metformin. 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 1. [...] E&M of Est. Patient Moderate 30-39 Min 72841 2. Kidney stones (N20.0: Calculus of kidney) [...] E&M of Est. Patient Moderate 30-39 Min 70526 3. Renal cyst (N28.1: Cyst of kidney, acquired) RAMONA 05/04/23 [facility] - 1 cm benign-appearing R renal cyst and 1 cm benign-appearing L renal cyst. -Simple cysts do not require monitoring Ordered: E&M of Est. Patient Moderate 30-39 Min 81670 Orders: trospium, 60 mg = 1 cap(s), Oral, qAM, # 90 cap(s), Refills(s) 3, Pharmacy: [facility], 158, cm, 11/27/23 15:03:00 EDT, Height/Length Dosing, 88, kg, 11/27/23 15:03:00 EDT, Weight Dosing Follow-up With When Contact Information DVEEN GUTIERREZ, OXANA Schwartz, URL [address] [place] [address] Additional Instructions: 1 year f/up with KUB Patient Education Urinary Incontinence Overactive Bladder, Adult Documentation recorded by the bev Solo accurately reflects the services(s) I performed and decisions made by me. Authenticated by Oxana Carvalho PA-C on 11/27/2023 15:46:29. IHoward, personally scribed for Oxana Carvalho PA-C on 11/27/2023 15:25:02. . 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 Normal [facility] Comment on above: Result Comment: Elec [...] Birch Jr., MD 11/02/23 Final result Normal [facility] XR KNEE RIGHT (1-2 VIEWS)on 09-28-2023 [...] Birch Jr., MD 09/28/23 Final result Normal [facility] Physician Referralon 024 Physician Referral [id number]. 00TIFF Normal [facility] Screenson 08-22-2023 Screens [id number]# 1.00TIFF Normal [facility] Ambulatory Visit Summaryon 0 08-21-2023 Ambulatory [...] 3 mos (new med) Where: [address] [place] [address] [id number] Medications What How Much When Instructions Unchanged [...] tab(s (more content not included)... Normal [facility] Patient Educationon 08-21-19 Patient Education Urology [...] nerve stimulation). ? For women, using a certified medical coder to prevent urine leaks. This is a [...] ? (more content not included)... Normal [facility] Reminderson 08-21-2023 Reminders - From: Evy Gunderson To: KRISSY Carvalho; Sent: 08/21/2023 10:39:44 EDT Show up: 06/20/2024 10:38:00 EDT Subject: KUB and RAMONA Reminder Message Pt needs RAMONA and KUB prior to appt in 1 year. Typically goes to [facility]. Normal [facility] XR LSPINE MIN 4 VIEWSon 01-01 XR [...] DANII CARTER Date: 2022-01-20 07:20 Normal [facility] DEPAKENE/VALPROICon 01-20-20 22 DEPAKENE 79.2 ug/ml Normal 50.0-100.0 [facility] Comment on above: Performed By: #### V ALP #### [facility] [address] [address] [address] Julio Goddard Albumin [Mass/volume] in Ser um or PlasmaOrdered By: Henry De Los Santosomar on 01-05-2022 Albumin [Mass/Vol] 3.0 g/dL 3.2-5.5 [facility] Basophils Auto (Bld) [#/Vol] Ordered By: Obsonjada Filibertoomar on 01-05-2022 Basophils (Bld) [#/Vol] 0.0 10*3/uL 0.0-0.2 [facility] Basophils/100 WBC Auto (Bld) Ordered By: [facility] Pe[facility] Filibertoomar on 01-05-2022 Basophils/100 WBC (Bld) 0.6 % . [facility] Blood hemoglobin measurement (mass/volume)Ordered By: [facility] on 01-05-2022 Hemoglobin (Bld) [Mass/Vol] 12.8 g/dL 11.8-15.4 [facility] Blood leukocytes automated c ount (number/volume)Ordered By: [facility] on 01-05-2022 WBC (Bld) [#/Vol] 5.3 10*3/uL 4.5-11.0 [facility] Complete Blood Count Auto Di ffon 01-05-2022 Basophils (Bld) [#/Vol] 0.0 10*3/uL Normal 0.0-0.2 [facility] Comment on above: Result Comment: PERF ORMED BY: [facility] [address] [place] [address] PATHOLOGIST CORPSMAN ANTONY ELIAS M.D. Performed By: #### C BC, CMP, PHOS, MG, LIPID #### [facility] [address] Basophils/100 WBC (Bld) 0.6 % Normal . [facility] Comment on above: Performed By: #### C BC, CMP, PHOS, MG, LIPID #### [address] Eosinophils (Bld) [#/Vol] 0.2 10*3/uL Normal 0.0-0.45 [facility] Comment on above: Performed By: #### C BC, CMP, PHOS, MG, LIPID #### [address] Eosinophils/100 WBC (Bld) 3.5 % Normal . [facility] Comment on above: Performed By: #### C BC, CMP, PHOS, MG, LIPID #### [address] Erythrocyte distribution width (RBC) [Ratio] 16.2 % High 11.9-15.3 [facility] Comment on above: Performed By: #### C BC, CMP, PHOS, MG, LIPID #### [address] Hematocrit (Bld) [Volume fraction] 38.6 % Normal 34.0-46.4 [facility] Comment on above: Performed By: #### C BC, CMP, PHOS, MG, LIPID #### [address] Hemoglobin (Bld) [Mass/Vol] 12.8 g/dL Normal 11.8-15.4 [facility] Comment on above: Performed By: #### C BC, CMP, PHOS, MG, LIPID #### [address] Lymphocytes (Bld) [#/Vol] 1.7 10*3/uL Normal 1.00-4.8 [facility] Comment on above: Performed By: #### C BC, CMP, PHOS, MG, LIPID #### [address] Lymphocytes/100 WBC (Bld) 33.1 % Normal . [facility] Comment on above: Performed By: #### C BC, CMP, PHOS, MG, LIPID #### [address] MCH (RBC) [Entitic mass] 30.2 pg Normal 24.7-34.3 [facility] Comment on above: Performed By: #### C BC, CMP, PHOS, MG, LIPID #### [address] MCV (RBC) [Entitic vol] 90.6 fL Normal 80-100 [facility] Comment on above: Performed By: #### C BC, CMP, PHOS, MG, LIPID #### [address] Mean Corpuscular HGB Conc 33.3 g/dL Normal 32.0-35.0 [facility] Comment on above: Performed By: #### C BC, CMP, PHOS, MG, LIPID #### [address] Monocytes (Bld) [#/Vol] 0.7 10*3/uL Normal 0.0-0.8 [facility] Comment on above: Performed By: #### C BC, CMP, PHOS, MG, LIPID #### [address] Monocytes/100 WBC (Bld) 12.5 % Normal . [facility] Comment on above: Performed By: #### C BC, CMP, PHOS, MG, LIPID #### [address] Neutrophils (Bld) [#/Vol] 2.6 10*3/uL Normal 1.8-7.7 [facility] Comment on above: Performed By: #### C BC, CMP, PHOS, MG, LIPID #### [address] Neutrophils/100 WBC (Bld) 50.3 % Normal . [facility] Comment on above: Performed By: #### C BC, CMP, PHOS, MG, LIPID #### [address] Nucleated RBC/100 WBC (Bld) [Ratio] 0.1 % Normal 0-0.5 [facility] Comment on above: Performed By: #### C BC, CMP, PHOS, MG, LIPID #### [address] Platelet mean volume (Bld) [Entitic vol] 8.9 fL Normal 6.3-10.7 [facility] Comment on above: Performed By: #### C BC, CMP, PHOS, MG, LIPID #### [address] Platelets (Bld) [#/Vol] 186 10*3/uL Normal 150-450 [facility] Comment on above: Performed By: #### C BC, CMP, PHOS, MG, LIPID #### [address] RBC (Bld) [#/Vol] 4.25 10*6/uL Normal 3.60-5.00 [facility] Comment on above: Performed By: #### C BC, CMP, PHOS, MG, LIPID #### [address] WBC (Bld) [#/Vol] 5.3 10*3/uL Normal 4.5-11.0 [facility] Comment on above: Performed By: #### C BC, CMP, PHOS, MG, LIPID #### [address] Comprehensive Metabolic Pane clarice 01-05-2022 Albumin [Mass/Vol] 3.0 g/dL Low 3.2-5.5 [facility] Comment on above: Performed By: #### C BC, CMP, PHOS, MG, LIPID #### [address] Albumin/Globulin [Mass ratio] 1.2 {ratio} Normal [facility] Comment on above: Performed By: #### C BC, CMP, PHOS, MG, LIPID #### [address] ALP [Catalytic activity/Vol] 33 U/L Normal 32-92 [facility] Comment on above: Performed By: #### C BC, CMP, PHOS, MG, LIPID #### [facility] [address] [place] [address] ALT [Catalytic activity/Vol] 11 U/L Normal 10-60 [facility] Comment on above: Performed By: #### C BC, CMP, PHOS, MG, LIPID #### [facility] [address] [place] [address] Anion gap [Moles/Vol] 11.6 mmol/L Normal 6.0-15.0 [facility] Comment on above: Performed By: #### C BC, CMP, PHOS, MG, LIPID #### [address] AST [Catalytic activity/Vol] 13 U/L Normal 10-42 [facility] Comment on above: Performed By: #### C BC, CMP, PHOS, MG, LIPID #### [address] Bilirubin [Mass/Vol] 0.4 mg/dL Normal 0.3-1.2 [facility] Comment on above: Performed By: #### C BC, CMP, PHOS, MG, LIPID #### [address] Calcium [Mass/Vol] 9.1 mg/dL Normal 8.2-10.2 [facility] Comment on above: Performed By: #### C BC, CMP, PHOS, MG, LIPID #### [address] Chloride [Moles/Vol] 105 mmol/L Normal 95-114 [facility] Comment on above: Performed By: #### C BC, CMP, PHOS, MG, LIPID #### [address] CO2 [Moles/Vol] 25.2 mmol/L Normal 22.0-30.0 [facility] Comment on above: Performed By: #### C BC, CMP, PHOS, MG, LIPID #### [place] [address] [address] Creatinine [Mass/Vol] 1.14 mg/dL High 0.44-1.03 [facility] Comment on above: Performed By: #### C BC, CMP, PHOS, MG, LIPID #### [facility] [address] Creatinine Clr Calc Pharmacy 51.99 [facility] Comment on above: Result Comment: PERF ORMED BY: [place] [address] PATHOLOGIST [employer]MAN ANTONY ELIAS M.D. Performed By: #### C BC, CMP, PHOS, MG, LIPID #### [address] Estimated GFR ( [place] 59 [facility] Comment on above: Result Comment: GFR estimated reference range: According to KDOQI guidelines, <60 ml/min/1.73m2 is sufficient to diagnose a patient with chronic kidney disease. Performed By: #### C BC, CMP, PHOS, MG, LIPID #### [address] Estimated GFR (Non- Am 49 [facility] Comment on above: Performed By: #### C BC, CMP, PHOS, MG, LIPID #### [address] Globulin (S) [Mass/Vol] 2.5 g/dL Normal [facility] Comment on above: Performed By: #### C BC, CMP, PHOS, MG, LIPID #### [facility] [address] Glucose [Mass/Vol] 96 mg/dL Normal 70-100 [facility] Comment on above: Result Comment: [place] Glucose Reference Range is dependent on time and content of last meal. Glucose of more than 200 mg/dL in a nonstressed, ambulatory subject supports the diagnosis of Diabetes Mellitus. ADA recommended reference range Performed By: #### C BC, CMP, PHOS, MG, LIPID #### [facility] [address] [place] [address] [place] Potassium [Moles/Vol] 3.8 mmol/L Normal 3.5-5.1 [facility] Comment on above: Performed By: #### C BC, CMP, PHOS, MG, LIPID #### [facility] [address] [place] [address] [place] Protein [Mass/Vol] 5.5 g/dL Low 6.1-7.9 [facility] Comment on above: Performed By: #### C BC, CMP, PHOS, MG, LIPID #### [facility] [address] Sodium [Moles/Vol] 138 mmol/L Normal 136-146 [facility] Comment on above: Performed By: #### C BC, CMP, PHOS, MG, LIPID #### [facility] [address] [place] [address] [place] Urea nitrogen [Mass/Vol] 11 mg/dL Normal 9-23 [facility] Comment on above: Performed By: #### C BC, CMP, PHOS, MG, LIPID #### [facility] [address] [place] [address] [place] Creatinine and Glomerular fi ltration rate.predicted panel (S/P/Bld)Ordered By: Henry De Los Santosomar on 01-05-2022 Creatinine [Mass/Vol] 1.14 mg/dL 0.44-1.03 [facility] Eosinophils Auto (Bld) [#/Vo l]Ordered By: Obsonjadah Filibertoomar on 01-05-2022 Eosinophils (Bld) [#/Vol] 0.2 10*3/uL 0.0-0.45 [facility] Eosinophils/100 WBC Auto (Bl d)Ordered By: Obaydah Daromar on 01-05-2022 Eosinophils/100 WBC (Bld) 3.5 % . [facility] Erythrocyte distribution wid th Auto (RBC) [Ratio]Ordered By: Obsonjadanaga De Los Santosomar on 01-05-2022 Erythrocyte distribution width (RBC) [Ratio] 16.2 % 11.9-15.3 [facility] Estimated glomerular filtrat ion rate (GFR) non- AmericanOrdered By: Henry Burnett on 01-05-2022 GFR/1.73 sq M.predicted among non-blacks MDRD (S/P/Bld) [Vol rate/Area] 49 mL/Min [facility] Globulin Calc (S) [Mass/Vol] Ordered By: Henry Burnett on 01-05-2022 Globulin (S) [Mass/Vol] 2.5 g/dL [facility] Hematocrit Auto (Bld) [Volum e fraction]Ordered By: Henry Lemonr on 01-05-2022 Hematocrit (Bld) [Volume fraction] 38.6 % 34.0-46.4 [facility] - Hematology and Cell countsOrdered By: Henry Burnett on 01-05-2022 Nucleated RBC/100 WBC (Bld) [Ratio] 0.1 % 0-0.5 [facility] Lymphocytes Auto (Bld) [#/Vo l]Ordered By: Henry De Los Santosomar on 01-05-2022 Lymphocytes (Bld) [#/Vol] 1.7 10*3/uL 1.00-4.8 [facility] Lymphocytes/100 WBC Auto (Bl d)Ordered By: Henry Lemonr on 01-05-2022 Lymphocytes/100 WBC (Bld) 33.1 % . [facility] MCH Auto (RBC) [Entitic mass ]Ordered By: Henry De Los Santosomar on 01-05-2022 MCH (RBC) [Entitic mass] 30.2 pg 24.7-34.3 [facility] MCHC Auto (RBC) [Mass/Vol]Or dered By: Henry De Los Santosomar on 01-05-2022 MCHC (RBC) [Mass/Vol] 33.3 g/dL 32.0-35.0 [facility] MCV Auto (RBC) [Entitic vol] Ordered By: Henry De Los Santosomar on 01-05-2022 MCV (RBC) [Entitic vol] 90.6 fL 80-100 [facility] Monocytes Auto (Bld) [#/Vol] Ordered By: Henry De Los Santosomar on 01-05-2022 Monocytes (Bld) [#/Vol] 0.7 10*3/uL 0.0-0.8 [facility] Monocytes/100 WBC Auto (Bld) Ordered By: Obsonjadanaga De Los Santosomar on 01-05-2022 Monocytes/100 WBC (Bld) 12.5 % . [facility] Neutrophils Auto (Bld) [#/Vo l]Ordered By: Obaydah Daromar on 01-05-2022 Neutrophils (Bld) [#/Vol] 2.6 10*3/uL 1.8-7.7 [facility] Neutrophils/100 WBC Auto (Bl d)Ordered By: Obsonjadah Daromar on 01-05-2022 Neutrophils/100 WBC (Bld) 50.3 % . [facility] No Panel InformationOrdered By: Obsonjadanaga De Los Santosomar on 01-05-2022 Estimated GFR () 59 mL/Min [facility] Comment on above: GFR estimated refere nce range: According to KDOQI guidelines, <60 ml/min/1.73m2 is sufficient to diagnose a patient with chronic kidney disease. Pharmacy Creatinine Clearance (Chem 51.99 [facility] Platelet mean volume Auto (B ld) [Entitic vol]Ordered By: Obsonjadanaga De Los Santosomar on 01-05-2022 Platelet mean volume (Bld) [Entitic vol] 8.9 fL 6.3-10.7 [facility] Platelets Auto (Bld) [#/Vol] Ordered By: Obsonjadanaga Daromar on 01-05-2022 Platelets (Bld) [#/Vol] 186 10*3/uL 150-450 [facility] Protein [Mass/volume] in Ser um or PlasmaOrdered By: Obsonjadah Daromar on 01-05-2022 Protein [Mass/Vol] 5.5 g/dL 6.1-7.9 [facility] RBC Auto (Bld) [#/Vol]Ordere d By: Obaydah Daromar on 01-05-2022 RBC (Bld) [#/Vol] 4.25 10*6/uL 3.60-5.00 [facility] Serum or plasma alanine [place] otransferase measurement without P-5'-P (enzymatic activiOrdered By: Henry Burnett on 01-05-2022 ALT No additional P-5'-P [Catalytic activity/Vol] 11 U/L 10-60 [facility] Serum or plasma albumin/glob ulin mass ratioOrdered By: Henry Burnett on 01-05-2022 Albumin/Globulin [Mass ratio] 1.2 {ratio} [facility] Serum or plasma alkaline [place] sphatase measurement (enzymatic activity/volume)Ordered By: Henry Burnett on 01-05-2022 ALP [Catalytic activity/Vol] 33 U/L 32-92 [facility] Serum or plasma anion gap de terminationOrdered By: Henry Burnett on 01-05-2022 Anion gap [Moles/Vol] 11.6 mmol/L 6.0-15.0 [facility] [facility] Serum or plasma aspartate am inotransferase measurement (enzymatic activity/volume)Ordered By: Henry Burnett on 01-05-2022 AST [Catalytic activity/Vol] 13 U/L 1042 [facility] Serum or plasma calcium sarah urement (mass/volume)Ordered By: Henry Burnett on 01-05-2022 Calcium [Mass/Vol] 9.1 mg/dL 8.2-10.2 [facility] Serum or plasma chloride deep surement (moles/volume)Ordered By: Henry Burnett on 01-05-2022 Chloride [Moles/Vol] 105 mmol/L 95-114 [facility] Serum or plasma glucose sarah urement (mass/volume)Ordered By: Henry Burnett on 01-05-2022 Glucose [Mass/Vol] 96 mg/dL 70-100 [facility] Comment on above: ADA recommended refe rence rangeRandom Glucose Reference Range is dependent on time and content of last meal. Glucose of more than 200 mg/dL in a nonstressed, ambulatory subject supports the diagnosis of Diabetes Mellitus. Serum or plasma potassium me asurement (moles/volume)Ordered By: Henry Burnett on 10-06-2022 Potassium [Moles/Vol] 3.8 mmol/L 3.5-5.1 [facility] Serum or plasma sodium measu rement (moles/volume)Ordered By: Henry Burnett on 01-05-2022 Sodium [Moles/Vol] 138 mmol/L 136-146 [facility] Serum or plasma total biliru bin measurement (mass/volume)Ordered By: Henry Burnett on 01-05-2022 Bilirubin [Mass/Vol] 0.4 mg/dL 0.3-1.2 [facility] Serum or plasma total carbon dioxide measurement (moles/volume)Ordered By: Henry Burnett on 01-05-2022 CO2 [Moles/Vol] 25.2 mmol/L 22.0-30.0 [facility] Serum or plasma urea nitroge n measurement (mass/volume)Ordered By: Henry Burnett on 01-05-2022 Urea nitrogen [Mass/Vol] 11 mg/dL 9-23 [facility] Urine culture routineOrdered By: Justin Francisco on 01-05-2022 Bacteria identified Cx Nom (U) Escherichia coli [facility] Cholesterol [Mass/volume] in Serum or PlasmaOrdered By: Henry Burnett on 01-04-2022 Cholesterol [Mass/Vol] 145 mg/dL 140-200 [facility] Comment on above: Chol less than 200 m g/dl low riskChol 201-239 mg/dl borderline riskChol 240 mg/dl and greater high risk Cholesterol in LDL Calc [Mas s/Vol]Ordered By: Henry Burnett on 01-04-2022 Cholesterol in LDL [Mass/Vol] 78 mg/dL 0-100 [facility] Comment on above: LDL ATP III CLASSIFI CATIONLDL less than 100 mg/dL OptimalLDL 100-129 mg/dL Near or above optimalLDL 130-159 mg/dL Borderline highLDL 160-189 mg/dL HighLDL greater than 189 mg/dL Very high Cholesterol in VLDL Calc [Ma ss/Vol]Ordered By: Henry Burnett on 01-04-2022 Cholesterol in VLDL [Mass/Vol] 12 mg/dL [facility] Complete Blood Count Auto Di ffon 01-04-2022 Basophils (Bld) [#/Vol] 0.0 10*3/uL Normal 0.0-0.2 [facility] Comment on above: Result Comment: PERF ORMED BY: [place] [address] PATHOLOGIST [employer] ANTONY ELIAS M.D. Performed By: #### C BC, CMP, PHOS, MG, LIPID #### [facility] [address] [place] [address] Basophils/100 WBC (Bld) 0.8 % Normal . [facility] Comment on above: Performed By: #### C BC, CMP, PHOS, MG, LIPID #### [facility] [address] [place] [address] Eosinophils (Bld) [#/Vol] 0.2 10*3/uL Normal 0.0-0.45 [facility] Comment on above: Performed By: #### C BC, CMP, PHOS, MG, LIPID #### [facility] [address] [place] [address] Eosinophils/100 WBC (Bld) 4.2 % Normal . [facility] Comment on above: Performed By: #### C BC, CMP, PHOS, MG, LIPID #### [address] Erythrocyte distribution width (RBC) [Ratio] 15.8 % High 11.9-15.3 [facility] Comment on above: Performed By: #### C BC, CMP, PHOS, MG, LIPID #### [facility] [address] [place] [address] Hematocrit (Bld) [Volume fraction] 37.5 % Normal 34.0-46.4 [facility] Comment on above: Performed By: #### C BC, CMP, PHOS, MG, LIPID #### [facility] [address] [place] [address] Hemoglobin (Bld) [Mass/Vol] 12.3 g/dL Normal 11.8-15.4 [facility] Comment on above: Performed By: #### C BC, CMP, PHOS, MG, LIPID #### [address] Lymphocytes (Bld) [#/Vol] 1.6 10*3/uL Normal 1.00-4.8 [facility] Comment on above: Performed By: #### C BC, CMP, PHOS, MG, LIPID #### [address] Lymphocytes/100 WBC (Bld) 31.2 % Normal . [facility] Comment on above: Performed By: #### C BC, CMP, PHOS, MG, LIPID #### [address] MCH (RBC) [Entitic mass] 29.7 pg Normal 24.7-34.3 [facility] Comment on above: Performed By: #### C BC, CMP, PHOS, MG, LIPID #### [address] MCV (RBC) [Entitic vol] 90.5 fL Normal 80-100 [facility] Comment on above: Performed By: #### C BC, CMP, PHOS, MG, LIPID #### [address] Mean Corpuscular HGB Conc 32.8 g/dL Normal 32.0-35.0 [facility] Comment on above: Performed By: #### C BC, CMP, PHOS, MG, LIPID #### [address] Monocytes (Bld) [#/Vol] 0.7 10*3/uL Normal 0.0-0.8 [facility] Comment on above: Performed By: #### C BC, CMP, PHOS, MG, LIPID #### [address] Monocytes/100 WBC (Bld) 13.1 % Normal . [facility] Comment on above: Performed By: #### C BC, CMP, PHOS, MG, LIPID #### [place] [address] [place] Neutrophils (Bld) [#/Vol] 2.6 10*3/uL Normal 1.8-7.7 [facility] Comment on above: Performed By: #### C BC, CMP, PHOS, MG, LIPID #### [address] Neutrophils/100 WBC (Bld) 50.7 % Normal . [facility] Comment on above: Performed By: #### C BC, CMP, PHOS, MG, LIPID #### [address] Nucleated RBC/100 WBC (Bld) [Ratio] 0.1 % Normal 0-0.5 [facility] Comment on above: Performed By: #### C BC, CMP, PHOS, MG, LIPID #### [address] Platelet mean volume (Bld) [Entitic vol] 8.5 fL Normal 6.3-10.7 [facility] Comment on above: Performed By: #### C BC, CMP, PHOS, MG, LIPID #### [place] [address] [place] Platelets (Bld) [#/Vol] 190 10*3/uL Normal 150-450 [facility] Comment on above: Performed By: #### C BC, CMP, PHOS, MG, LIPID #### [place] [address] [place] RBC (Bld) [#/Vol] 4.15 10*6/uL Normal 3.60-5.00 [facility] Comment on above: Performed By: #### C BC, CMP, PHOS, MG, LIPID #### [place] [address] [place] WBC (Bld) [#/Vol] 5.1 10*3/uL Normal 4.5-11.0 [facility] Comment on above: Performed By: #### C BC, CMP, PHOS, MG, LIPID #### [address] [place] [address] [place] Comprehensive Metabolic Pane clarice 01-04-2022 Albumin [Mass/Vol] 3.0 g/dL Low 3.2-5.5 [facility] Comment on above: Performed By: #### C BC, CMP, PHOS, MG, LIPID #### [facility] [address] Albumin/Globulin [Mass ratio] 1.2 {ratio} Normal [facility] Comment on above: Performed By: #### C BC, CMP, PHOS, MG, LIPID #### [facility] [address] ALP [Catalytic activity/Vol] 32 U/L Normal 32-92 [facility] Comment on above: Performed By: #### C BC, CMP, PHOS, MG, LIPID #### [facility] [address] ALT [Catalytic activity/Vol] 12 U/L Normal 10-60 [facility] Comment on above: Performed By: #### C BC, CMP, PHOS, MG, LIPID #### [facility] [address] Anion gap [Moles/Vol] 10.6 mmol/L Normal 6.0-15.0 [facility] Comment on above: Performed By: #### C BC, CMP, PHOS, MG, LIPID #### [address] AST [Catalytic activity/Vol] 15 U/L Normal 10-42 [facility] Comment on above: Performed By: #### C BC, CMP, PHOS, MG, LIPID #### [facility] [address] [place] [address] [place] Bilirubin [Mass/Vol] 0.3 mg/dL Normal 0.3-1.2 [facility] Comment on above: Performed By: #### C BC, CMP, PHOS, MG, LIPID #### [facility] [address] Calcium [Mass/Vol] 9.0 mg/dL Normal 8.2-10.2 [facility] Comment on above: Performed By: #### C BC, CMP, PHOS, MG, LIPID #### [facility] [address] [place] [address] Chloride [Moles/Vol] 103 mmol/L Normal 95-114 [facility] Comment on above: Performed By: #### C BC, CMP, PHOS, MG, LIPID #### [facility] [address] [place] [address] CO2 [Moles/Vol] 27.6 mmol/L Normal 22.0-30.0 [facility] Comment on above: Performed By: #### C BC, CMP, PHOS, MG, LIPID #### [address] Creatinine [Mass/Vol] 1.21 mg/dL High 0.44-1.03 [facility] Comment on above: Performed By: #### C BC, CMP, PHOS, MG, LIPID #### [facility] [address] [place] [address] Creatinine Clr Calc Pharmacy 49.01 [facility] Comment on above: Performed By: #### C BC, CMP, PHOS, MG, LIPID #### [address] Estimated GFR ( [place] 55 [facility] Comment on above: Result Comment: GFR estimated reference range: According to KDOQI guidelines, <60 ml/min/1.73m2 is sufficient to diagnose a patient with chronic kidney disease. Performed By: #### C BC, CMP, PHOS, MG, LIPID #### [facility] [address] [place] [address] Estimated GFR (Non- Am 46 [facility] Comment on above: Performed By: #### C BC, CMP, PHOS, MG, LIPID #### [address] Globulin (S) [Mass/Vol] 2.6 g/dL Normal [facility] Comment on above: Performed By: #### C BC, CMP, PHOS, MG, LIPID #### [facility] [address] Glucose [Mass/Vol] 151 mg/dL High 70-100 [facility] Comment on above: Result Comment: [facility] Glucose Reference Range is dependent on time and content of last meal. Glucose of more than 200 mg/dL in a nonstressed, ambulatory subject supports the diagnosis of Diabetes Mellitus. ADA recommended reference range Performed By: #### C BC, CMP, PHOS, MG, LIPID #### [facility] [address] Potassium [Moles/Vol] 3.2 mmol/L Low 3.5-5.1 [facility] Comment on above: Performed By: #### C BC, CMP, PHOS, MG, LIPID #### [facility] [address] Protein [Mass/Vol] 5.6 g/dL Low 6.1-7.9 [facility] Comment on above: Performed By: #### C BC, CMP, PHOS, MG, LIPID #### [facility] [address] Sodium [Moles/Vol] 138 mmol/L Normal 136-146 [facility] Comment on above: Performed By: #### C BC, CMP, PHOS, MG, LIPID #### [facility] [address] Urea nitrogen [Mass/Vol] 11 mg/dL Normal 9-23 [facility] Comment on above: Performed By: #### C BC, CMP, PHOS, MG, LIPID #### [facility] [address] Laboratory - Chemistry and C hemistry - challengeOrdered By: Henry Burnett on 01-04-2022 Magnesium [Mass/Vol] 1.6 mg/dL 1.6-2.6 [facility] Lipid Panelon 01-04-2022 Cholesterol [Mass/Vol] 145 mg/dL Normal 140-200 [facility] Comment on above: Result Comment: Chol less than 200 mg/dl low risk Chol 201-239 mg/dl borderline risk Chol 240 mg/dl and greater high risk Performed By: #### C BC, CMP, PHOS, MG, LIPID #### [facility] [address] Cholesterol in HDL [Mass/Vol] 55 mg/dL Normal 35-85 [facility] Comment on above: Result Comment: HDL CHOL ATP-III CLASSIFICATION Cardiovascular Risk HDL > or equal to 60 mg/dL LOW HDL < 40 mg/dL HIGH Performed By: #### C BC, CMP, PHOS, MG, LIPID #### [facility] [address] Cholesterol.total/Tila sterol in HDL [Mass ratio] 2.6 {ratio} Normal <5.0 [facility] Comment on above: Result Comment: PERF ORMED BY: [place] [address] PATHOLOGIST [employer] ANTONY ELIAS M.D. Performed By: #### C BC, CMP, PHOS, MG, LIPID #### [facility] [address] LDL Cholesterol,Calculated 78 mg/dL Normal 0-100 [facility] Comment on above: Result Comment: LDL ATP III CLASSIFICATION LDL less than 100 mg/dL Optimal LDL 100-129 mg/dL Near or above optimal LDL 130-159 mg/dL Borderline high LDL 160-189 mg/dL High LDL greater than 189 mg/dL Very high Performed By: #### C BC, CMP, PHOS, MG, LIPID #### [facility] [address] Triglyceride w/Reflex 60 mg/dL Normal 35-149 [facility] Comment on above: Result Comment: TRIG ATP III CLASSIFICATION TRIG less than 150 mg/dL Normal TRIG 150-199 mg/dL Borderline high TRIG 200-500 mg/dL High TRIG greater than 500 mg/dL Very high Standard traceable to the Center for Disease Conrtrol and Prevention (CDC) test method. Performed By: #### C BC, CMP, PHOS, MG, LIPID #### [facility] [address] [place] [address] [place] VLDL CHOLESTEROL 12 mg/dL Normal [facility] Comment on above: Performed By: #### C BC, CMP, PHOS, MG, LIPID #### [facility] [address] Magnesiumon 01-04-2022 Magnesium [Mass/Vol] 1.6 mg/dL Normal 1.6-2.6 [facility] Comment on above: Performed By: #### C BC, CMP, PHOS, MG, LIPID #### [facility] [address] No Panel InformationOrdered By: Graham Helm on 01-04-2022 Valproic Acid (Depakene) Level 28.2 ug/mL 50.0-100.0 [facility] Comment on above: Last dose: - Phosphate [Mass/volume] in S yeyo or PlasmaOrdered By: Henry Burnett on 01-04-2022 Phosphate [Mass/Vol] 3.5 mg/dL 2.5-4.6 [facility] Phosphoruson 01-04-2022 Phosphate [Mass/Vol] 3.5 mg/dL Normal 2.5-4.6 [facility] Comment on above: Performed By: #### C BC, CMP, PHOS, MG, LIPID #### [facility] [address] [place] [address] Serum or plasma high density lipoprotein (HDL) cholesterol measurementOrdered By: Henry Burnett on 01-04-2022 Cholesterol in HDL [Mass/Vol] 55 mg/dL 35-85 [facility] Comment on above: HDL CHOL ATP-III CLA SSIFICATION Cardiovascular RiskHDL > or equal to 60 mg/dL LOWHDL < 40 mg/dL HIGH Serum or plasma total choles terol/high density lipoprotein (HDL) cholesterol mass ratOrdered By: Henry Burnett on 01-04-2022 Cholesterol.total/Tila sterol in HDL [Mass ratio] 2.6 {ratio} <5.0 [facility] Triglyceride [Mass/volume] i n Serum or PlasmaOrdered By: Henry Burnett on 01-04-2022 Triglyceride [Mass/Vol] 60 mg/dL 35-149 [facility] Comment on above: TRIG ATP III CLASSIF ICATIONTRIG less than 150 mg/dL NormalTRIG 150-199 mg/dL Borderline highTRIG 200-500 mg/dL High TRIG greater than 500 mg/dL Very highStandard traceable to the Center for Disease Conrtrol and Prevention (CDC) test method. Valproic Acid (in house)on 1 Valproic Acid (in house) 28.2 ug/mL Low 50.0-100.0 [facility] Comment on above: Result Comment: Last dose: - PERFORMED BY: [place] [address] PATHOLOGIST [employer] ANTONY EILAS M.D. Performed By: #### C BC, CMP, PHOS, MG, LIPID #### [facility] [address] Acetaminophenon 01-03-2022 Acetaminophen [Mass/Vol] 25.3 ug/mL Normal 10.0-30.0 [facility] Comment on above: Performed By: #### C MP, T4F, TSH3, CBC, ETOH, JUAN, ACET, VALP #### [facility] [address] Albumin [Mass/volume] in Ser um or PlasmaOrdered By: Justin Francisco on 01-03-2022 Albumin [Mass/Vol] 3.6 g/dL 3.2-5.5 [facility] Amphetamine Screen Ql (U)Ord ered By: Justin Francisco on 01-03-2022 Amphetamines Ql (U) Negative Negative [facility] Automated erythrocytes count in urine sediment (number/area)Ordered By: Justin Francisco on 01-03-2022 RBC Auto (Urine sed) [#/Area] None seen [HPF] 0-4 [facility] Automated leukocytes count i n urine sediment (number/area)Ordered By: Justin Francisco on 01-03-2022 WBC Auto (Urine sed) [#/Area] 5-9 [HPF] 0-4 [facility] Barbiturates [Presence] in U rineOrdered By: Justin Francisco on 01-03-2022 Barbiturates Ql (U) Negative Negative [facility] Basophils Auto (Bld) [#/Vol] Ordered By: Justin Francisco on 01-03-2022 Basophils (Bld) [#/Vol] 0.0 10*3/uL 0.0-0.2 [facility] Basophils/100 WBC Auto (Bld) Ordered By: Justin Francisco on 01-03-2022 Basophils/100 WBC (Bld) 0.6 % . [facility] Benzodiazepines [Presence] i n UrineOrdered By: Justin Francisco on 01-03-2022 Benzodiazepines Ql (U) Negative Negative [facility] Bilirubin Test strip Ql (U)O rdered By: Justin Francisco on 01-03-2022 Bilirubin Ql (U) Negative Negative [facility] Blood hemoglobin measurement (mass/volume)Ordered By: Justin Francisco on 01-03-2022 Hemoglobin (Bld) [Mass/Vol] 13.4 g/dL 11.8-15.4 [facility] Blood leukocytes automated c ount (number/volume)Ordered By: Justin Francisco on 01-03-2022 WBC (Bld) [#/Vol] 6.4 10*3/uL 4.5-11.0 [facility] COVID-19 Antigenon 2 COVID-19 Antigen Healthcare Worker?: [...] developed and its performance characteristic determined by [employer] and validated at [facility]. This test has not been FDA [...] for SARS Antigen by MARLINE PERFORMED BY: [place] [address] PATHOLOGIST [employer] ANTONY ELIAS M.D. Normal [facility] Comment on above: Performed By: #### C BC, CMP, PHOS, MG, LIPID #### [address] COVID-19 [facility] 01-03-2022 SARS-CoV-2 (COVID-19) RNA ARMINDA+probe Ql (Unsp spec) Negative Normal Negative [facility] Comment on above: Order Comment: Healt hcare Worker?: N Result Comment: Testing for SARS-CoV-2 by RT-PCR This test was developed and its performance characteristics determined by [employer] and validated at the [facility]. This test has not been FDA [...] is terminated or revoked sooner. PERFORMED BY: [place] [address] PATHOLOGIST [employer] ANTONY ELIAS M.D. Performed By: #### C BC, CMP, PHOS, MG, LIPID #### [facility] [address] COVID-19 Positive/NegativeOr dered By: Justin Francisco on 01-03-2022 SARS-CoV-2 (COVID-19) N gene ARMINDA+probe Ql (Resp) Negative Negative [facility] Comment on above: Testing for SARS-CoV -2 by RT-PCRThis test was developed and its performance characteristics determined by [employer] ([place]) and validated at the [facility]. This test has not been FDA [...] (COVID-19) Ag IA.rapid Ql (Resp) Negative Negative [facility] Comment on above: This is a duplicate Delores SARS Antigen (MARLINE) result to be used for statistical tracking purpose only. CT head/brain wo conon 01-03 CT head/brain wo con [facility] [place] [address] [place] [address] CT Scan Report Signed Patient: Kathy Porter MR#: [id number] : 1960 Acct:[id number] Age/Sex: 61 / F ADM Date: 01/03/22 Loc: ER Room: Type: [facility] ER Attending Dr: Copies to: Justin [...] M.D.01/03/2022 3:21 PM Dictation Location: [place] [address] Transcribed By: [facility] 01/03/22 1521 Dictated By: Rajinder Cardona II, MD 01/03/22 1518 Signed By: 01/03/22 1521 Normal [facility] Cannabinoids [Presence] in U rine by Screen methodOrdered By: Justin Francisco on 01-03-2022 Cannabinoids Screen Ql (U) Negative Negative [facility] Comment on above: These are unconfirme d results and should not be used for legal purposes. Drug Cut-Off Concentration: AMPH 1000 ng/mL TERRY 200 ng/mL HONG 200 ng/mL COCM 300 ng/mL OP 300 ng/mL PCP 25 ng/mL THC 20 ng/mL Color Auto (U)Ordered By: Aman Francisco on 01-03-2022 Color (U) Yellow Yellow [facility] Complete Blood Count Auto Di ffon 01-03-2022 Basophils (Bld) [#/Vol] 0.0 10*3/uL Normal 0.0-0.2 [facility] Comment on above: Result Comment: PERF ORMED BY: [place] [address] PATHOLOGIST [employer] ANTONY ELIAS M.D. Performed By: #### C MP, T4F, TSH3, CBC, ETOH, JUAN, ACET, VALP #### [address] Basophils/100 WBC (Bld) 0.6 % Normal . [facility] Comment on above: Performed By: #### C MP, T4F, TSH3, CBC, ETOH, JUAN, ACET, VALP #### [address] Eosinophils (Bld) [#/Vol] 0.1 10*3/uL Normal 0.0-0.45 [facility] Comment on above: Performed By: #### C MP, T4F, TSH3, CBC, ETOH, JUAN, ACET, VALP #### [address] Eosinophils/100 WBC (Bld) 1.4 % Normal . [facility] Comment on above: Performed By: #### C MP, T4F, TSH3, CBC, ETOH, JUAN, ACET, VALP #### [address] Erythrocyte distribution width (RBC) [Ratio] 15.7 % High 11.9-15.3 [facility] Comment on above: Performed By: #### C MP, T4F, TSH3, CBC, ETOH, JUAN, ACET, VALP #### [address] [place] [address] [place] Hematocrit (Bld) [Volume fraction] 41.0 % Normal 34.0-46.4 [facility] Comment on above: Performed By: #### C MP, T4F, TSH3, CBC, ETOH, JUAN, ACET, VALP #### [address] Hemoglobin (Bld) [Mass/Vol] 13.4 g/dL Normal 11.8-15.4 [facility] Comment on above: Performed By: #### C MP, T4F, TSH3, CBC, ETOH, JUAN, ACET, VALP #### [address] Lymphocytes (Bld) [#/Vol] 1.4 10*3/uL Normal 1.00-4.8 [facility] Comment on above: Performed By: #### C MP, T4F, TSH3, CBC, ETOH, JUAN, ACET, VALP #### [address] Lymphocytes/100 WBC (Bld) 22.3 % Normal . [facility] Comment on above: Performed By: #### C MP, T4F, TSH3, CBC, ETOH, JUAN, ACET, VALP #### [address] MCH (RBC) [Entitic mass] 29.7 pg Normal 24.7-34.3 [facility] Comment on above: Performed By: #### C MP, T4F, TSH3, CBC, ETOH, JUAN, ACET, VALP #### [address] MCV (RBC) [Entitic vol] 91.0 fL Normal 80-100 [facility] Comment on above: Performed By: #### C MP, T4F, TSH3, CBC, ETOH, JUAN, ACET, VALP #### [address] Mean Corpuscular HGB Conc 32.6 g/dL Normal 32.0-35.0 [facility] Comment on above: Performed By: #### C MP, T4F, TSH3, CBC, ETOH, JUAN, ACET, VALP #### [place] [address] [place] Monocytes (Bld) [#/Vol] 0.6 10*3/uL Normal 0.0-0.8 [facility] Comment on above: Performed By: #### C MP, T4F, TSH3, CBC, ETOH, JUAN, ACET, VALP #### [address] Monocytes/100 WBC (Bld) 8.9 % Normal . [facility] Comment on above: Performed By: #### C MP, T4F, TSH3, CBC, ETOH, JUAN, ACET, VALP #### [address] Neutrophils (Bld) [#/Vol] 4.3 10*3/uL Normal 1.8-7.7 [facility] Comment on above: Performed By: #### C MP, T4F, TSH3, CBC, ETOH, JUAN, ACET, VALP #### [address] Neutrophils/100 WBC (Bld) 66.8 % Normal . [facility] Comment on above: Performed By: #### C MP, T4F, TSH3, CBC, ETOH, JUAN, ACET, VALP #### [place] [address] [place] Nucleated RBC/100 WBC (Bld) [Ratio] 0.1 % Normal 0-0.5 [facility] Comment on above: Performed By: #### C MP, T4F, TSH3, CBC, ETOH, JUAN, ACET, VALP #### [place] [address] [place] Platelet mean volume (Bld) [Entitic vol] 8.8 fL Normal 6.3-10.7 [facility] Comment on above: Performed By: #### C MP, T4F, TSH3, CBC, ETOH, JUAN, ACET, VALP #### [place] [address] Platelets (Bld) [#/Vol] 236 10*3/uL Normal 150-450 [facility] Comment on above: Performed By: #### C MP, T4F, TSH3, CBC, ETOH, JUAN, ACET, VALP #### [address] RBC (Bld) [#/Vol] 4.50 10*6/uL Normal 3.60-5.00 [facility] Comment on above: Performed By: #### C MP, T4F, TSH3, CBC, ETOH, JUAN, ACET, VALP #### [address] WBC (Bld) [#/Vol] 6.4 10*3/uL Normal 4.5-11.0 [facility] Comment on above: Performed By: #### C MP, T4F, TSH3, CBC, ETOH, JUAN, ACET, VALP #### [address] Comprehensive Metabolic Pane clarice 01-03-2022 Albumin [Mass/Vol] 3.6 g/dL Normal 3.2-5.5 [facility] Comment on above: Performed By: #### C BC, CMP, PHOS, MG, LIPID #### [address] Albumin/Globulin [Mass ratio] 1.2 {ratio} Normal [facility] Comment on above: Performed By: #### C BC, CMP, PHOS, MG, LIPID #### [address] ALP [Catalytic activity/Vol] 40 U/L Normal 32-92 [facility] Comment on above: Performed By: #### C BC, CMP, PHOS, MG, LIPID #### [address] ALT [Catalytic activity/Vol] 14 U/L Normal 10-60 [facility] Comment on above: Performed By: #### C BC, CMP, PHOS, MG, LIPID #### [facility] [address] Anion gap [Moles/Vol] 16.7 mmol/L High 6.0-15.0 [facility] Comment on above: Performed By: #### C BC, CMP, PHOS, MG, LIPID #### [facility] [address] AST [Catalytic activity/Vol] 18 U/L Normal 10-42 [facility] Comment on above: Performed By: #### C BC, CMP, PHOS, MG, LIPID #### [facility] [address] [place] [address] Bilirubin [Mass/Vol] 0.6 mg/dL Normal 0.3-1.2 [facility] Comment on above: Performed By: #### C BC, CMP, PHOS, MG, LIPID #### [facility] [address] [place] [address] Calcium [Mass/Vol] 9.5 mg/dL Normal 8.2-10.2 [facility] Comment on above: Performed By: #### C BC, CMP, PHOS, MG, LIPID #### [facility] [address] [place] [address] Chloride [Moles/Vol] 99 mmol/L Normal 95-114 [facility] Comment on above: Performed By: #### C BC, CMP, PHOS, MG, LIPID #### [facility] [address] [place] [address] CO2 [Moles/Vol] 23.6 mmol/L Normal 22.0-30.0 [facility] Comment on above: Performed By: #### C BC, CMP, PHOS, MG, LIPID #### [facility] [address] [place] [address] [place] Creatinine [Mass/Vol] 1.38 mg/dL High 0.44-1.03 [facility] Comment on above: Performed By: #### C BC, CMP, PHOS, MG, LIPID #### [facility] [address] [place] [address] [place] Creatinine Clr Calc Pharmacy 43.00 [facility] Comment on above: Performed By: #### C BC, CMP, PHOS, MG, LIPID #### [facility] [address] Estimated GFR ( [place] 47 [facility] Comment on above: Result Comment: GFR estimated reference range: According to KDOQI guidelines, <60 ml/min/1.73m2 is sufficient to diagnose a patient with chronic kidney disease. Performed By: #### C BC, CMP, PHOS, MG, LIPID #### [facility] [address] Estimated GFR (Non- Am 39 [facility] Comment on above: Performed By: #### C BC, CMP, PHOS, MG, LIPID #### [facility] [address] Globulin (S) [Mass/Vol] 3.1 g/dL Normal [facility] Comment on above: Performed By: #### C BC, CMP, PHOS, MG, LIPID #### [address] Glucose [Mass/Vol] 137 mg/dL High 70-100 [facility] Comment on above: Result Comment: [place] Glucose Reference Range is dependent on time and content of last meal. Glucose of more than 200 mg/dL in a nonstressed, ambulatory subject supports the diagnosis of Diabetes Mellitus. ADA recommended reference range Performed By: #### C BC, CMP, PHOS, MG, LIPID #### [address] Potassium [Moles/Vol] 4.3 mmol/L Normal 3.5-5.1 [facility] Comment on above: Performed By: #### C BC, CMP, PHOS, MG, LIPID #### [address] Protein [Mass/Vol] 6.7 g/dL Normal 6.1-7.9 [facility] Comment on above: Performed By: #### C BC, CMP, PHOS, MG, LIPID #### [facility] [address] [place] [address] [place] Sodium [Moles/Vol] 135 mmol/L Low 136-146 [facility] Comment on above: Performed By: #### C BC, CMP, PHOS, MG, LIPID #### [facility] [address] Urea nitrogen [Mass/Vol] 14 mg/dL Normal 9-23 [facility] Comment on above: Performed By: #### C BC, CMP, PHOS, MG, LIPID #### [facility] [address] Creatinine and Glomerular fi ltration rate.predicted panel (S/P/Bld)Ordered By: Justin Francisco on 01-03-2022 Creatinine [Mass/Vol] 1.38 mg/dL 0.44-1.03 [facility] Dipstick and Microscopicon 1 Appearance (U) Clear Normal Clear [facility] Comment on above: Order Comment: Name Collection Type:: Clean-Voided Midstream Performed By: #### C BC, CMP, PHOS, MG, LIPID #### [facility] [address] Bacteria,Urine 2+ High None Seen [facility] Comment on above: Order Comment: Name Collection Type:: Clean-Voided Midstream Performed By: #### C BC, CMP, PHOS, MG, LIPID #### [facility] [address] [place] [address] [place] Bilirubin,Urine Negative Normal Negative [facility] Comment on above: Order Comment: Name Collection Type:: Clean-Voided Midstream Performed By: #### C BC, CMP, PHOS, MG, LIPID #### [facility] [address] [place] [address] [place] Color (U) Yellow Normal Yellow [facility] Comment on above: Order Comment: Name Collection Type:: Clean-Voided Midstream Performed By: #### C BC, CMP, PHOS, MG, LIPID #### [facility] [address] [place] [address] [place] Glucose Ql (U) Normal Normal Normal [facility] Comment on above: Order Comment: Name Collection Type:: Clean-Voided Midstream Performed By: #### C BC, CMP, PHOS, MG, LIPID #### [facility] [address] [place] [address] [place] Hyaline Casts,Urine 0-8 Normal 0-8 [facility] Comment on above: Order Comment: Name Collection Type:: Clean-Voided Midstream Performed By: #### C BC, CMP, PHOS, MG, LIPID #### [facility] [address] Ketones Ql (U) Negative Normal Negative [facility] Comment on above: Order Comment: Name Collection Type:: Clean-Voided Midstream Performed By: #### C BC, CMP, PHOS, MG, LIPID #### [address] Leukocyte esterase Test strip Ql (U) 2+ High Negative [facility] Comment on above: Order Comment: Name Collection Type:: Clean-Voided Midstream Performed By: #### C BC, CMP, PHOS, MG, LIPID #### [facility] [address] [place] [address] Nitrite,Urine Negative Normal Negative [facility] Comment on above: Order Comment: Name Collection Type:: Clean-Voided Midstream Performed By: #### C BC, CMP, PHOS, MG, LIPID #### [facility] [address] [place] [address] [place] Occult Blood,Urine Negative Normal Negative [facility] Comment on above: Order Comment: Name Collection Type:: Clean-Voided Midstream Result Comment: PERF ORMED BY: [place] [address] PATHOLOGIST [employer] ANTONY ELIAS M.D. Performed By: #### C BC, CMP, PHOS, MG, LIPID #### [address] pH (U) 5.5 [pH] Normal 5.0-9.0 [facility] Comment on above: Order Comment: Name Collection Type:: Clean-Voided Midstream Performed By: #### C BC, CMP, PHOS, MG, LIPID #### [facility] [address] [place] [address] Protein,Urine Negative Normal Negative [facility] Comment on above: Order Comment: Name Collection Type:: Clean-Voided Midstream Performed By: #### C BC, CMP, PHOS, MG, LIPID #### [facility] [address] [place] [address] RBC,Urine None Seen Normal 0-4 [facility] Comment on above: Order Comment: Name Collection Type:: Clean-Voided Midstream Performed By: #### C BC, CMP, PHOS, MG, LIPID #### [address] Specificy [place],Urine 1.012 Normal 1.001-1.030 [facility] Comment on above: Order Comment: Name Collection Type:: Clean-Voided Midstream Performed By: #### C BC, CMP, PHOS, MG, LIPID #### [address] Squamous Epithelial Cell,Urine 3-4 High 0-2 [facility] Comment on above: Order Comment: Name Collection Type:: Clean-Voided Midstream Performed By: #### C BC, CMP, PHOS, MG, LIPID #### [address] Urobilinogen,Urine Normal Normal Normal [facility] Comment on above: Order Comment: Name Collection Type:: Clean-Voided Midstream Performed By: #### C BC, CMP, PHOS, MG, LIPID #### [place] [address] [place] WBC,Urine 5-9 High 0-4 [facility] Comment on above: Order Comment: Name Collection Type:: Clean-Voided Midstream Performed By: #### C BC, CMP, PHOS, MG, LIPID #### [address] Yeast,Urine None Seen Normal None Seen [facility] Comment on above: Order Comment: Name Collection Type:: Clean-Voided Midstream Result Comment: PERF ORMED BY: [place] [address] PATHOLOGIST [employer] AN[employer] ELIAS M.D. Performed By: #### C BC, CMP, PHOS, MG, LIPID #### [place] [address] [place] Drug Screen,Urineon 01-04-20 Amphetamine Screen,Urine Negative Normal Negative [facility] Comment on above: Performed By: #### C BC, CMP, PHOS, MG, LIPID #### [address] Barbiturate Screen,Urine Negative Normal Negative [facility] Comment on above: Performed By: #### C BC, CMP, PHOS, MG, LIPID #### [address] Benzodiazepines Screen,Urine Negative Normal Negative [facility] Comment on above: Performed By: #### C BC, CMP, PHOS, MG, LIPID #### [address] Cannabinoid Screen,Urine Negative Normal Negative [facility] Comment on above: Result Comment: Thes e are unconfirmed results and should not be used for legal purposes. Drug Cut-Off Concentration: AMPH 1000 ng/mL TERRY 200 ng/mL HONG 200 ng/mL COCM 300 ng/mL OP 300 ng/mL PCP 25 ng/mL THC 20 ng/mL PERFORMED BY: [place] [address] PATHOLOGIST [employer] AN[employer] ELIAS M.D. Performed By: #### C BC, CMP, PHOS, MG, LIPID #### [place] [address] [place] Cocaine Screen,Urine Negative Normal Negative [facility] Comment on above: Performed By: #### C BC, CMP, PHOS, MG, LIPID #### [place] [address] [place] Opiate Screen,Urine Negative Normal Negative [facility] Comment on above: Performed By: #### C BC, CMP, PHOS, MG, LIPID #### [facility] [address] Phencyclidine Screen,Urine Negative Normal Negative [facility] Comment on above: Performed By: #### C BC, CMP, PHOS, MG, LIPID #### [facility] [address] [place] [address] [place] ECG 12 lead ECGon 01-03-2022 ECG 12 lead ECG [facility] [place] [address] [place] [address] Electrocardiograph Report Signed Patient: Kathy Porter MR#: [id number] : 1960 Acct:[id number] Age/Sex: 61 / F ADM Date: 01/03/22 Loc: Room: [address] [place] [address] Type: DIS INOo Attending Dr: Henry Burnett [...] ECGs available Confirmed by Justin Francisco DO ([id number]) on 01/03/2022 7:17:59 PM Referred By: Electronically Signed By:Justin Francisco DO Transcribed By: MUS Signed By Justin Francisco DO 01/03 Normal [facility] Eosinophils Auto (Bld) [#/Vo l]Ordered By: Justin Francisco on 01-03-2022 Eosinophils (Bld) [#/Vol] 0.1 10*3/uL 0.0-0.45 [facility] Eosinophils/100 WBC Auto (Bl d)Ordered By: Justin Francisco on 01-03-2022 Eosinophils/100 WBC (Bld) 1.4 % . [facility] Erythrocyte distribution wid th Auto (RBC) [Ratio]Ordered By: Justin Francisco on 01-03-2022 Erythrocyte distribution width (RBC) [Ratio] 15.7 % 11.9-15.3 [facility] Estimated glomerular filtrat ion rate (GFR) non- AmericanOrdered By: Justin Francisco on 01-03-2022 GFR/1.73 sq M.predicted among non-blacks MDRD (S/P/Bld) [Vol rate/Area] 39 mL/Min [facility] Ethyl Alcohol Profileon Ethanol [Mass/Vol] mg/dL Normal [facility] Comment on above: Performed By: #### C MP, T4F, TSH3, CBC, ETOH, JUAN, ACET, VALP #### [facility] [address] Percent Ethanol Not performed Normal [facility] Comment on above: Result Comment: PERF ORMED BY: [place] [address] PATHOLOGIST [employer] AN[employer] ELIAS M.D. Performed By: #### C MP, T4F, TSH3, CBC, ETOH, JUAN, ACET, VALP #### [facility] [address] [place] [address] Free T4 (Free Thyroxine)on Free T4 [Mass/Vol] 1.10 ng/dL Normal 0.61-1.12 [facility] Comment on above: Performed By: #### C BC, CMP, PHOS, MG, LIPID #### [facility] [address] [place] [address] Globulin Calc (S) [Mass/Vol] Ordered By: Justin Francisco on 01-03-2022 Globulin (S) [Mass/Vol] 3.1 g/dL F [facility] Hematocrit Auto (Bld) [Volum e fraction]Ordered By: Justin Francisco on 01-03-2022 Hematocrit (Bld) [Volume fraction] 41.0 % 34.0-46.4 [facility] Ketones Auto test strip (U) [Mass/Vol]Ordered By: Justin Francisco on 01-03-2022 Ketones (U) [Mass/Vol] Negative Negative Fi [facility] - Drug toxicology Ordered By: Justin Francisco on 01-03-2022 Opiates Ql (U) Negative Negative [facility] Laboratory - Hematology and Cell countsOrdered By: Justin Francisco on 01-03-2022 Nucleated RBC/100 WBC (Bld) [Ratio] 0.1 % 0-0.5 [facility] - UrinalysisOrder ed By: Justin Francisco on 01-03-2022 Hyaline casts LM Ql (Urine sed) 0-8 [LPF] 0-8 [facility] Lymphocytes Auto (Bld) [#/Vo l]Ordered By: Justin Francisco on 01-03-2022 Lymphocytes (Bld) [#/Vol] 1.4 10*3/uL 1.00-4.8 [facility] Lymphocytes/100 WBC Auto (Bl d)Ordered By: Justin Francisco on 01-03-2022 Lymphocytes/100 WBC (Bld) 22.3 % . [facility] MCH Auto (RBC) [Entitic mass ]Ordered By: Justin Francisco on 01-03-2022 MCH (RBC) [Entitic mass] 29.7 pg 24.7-34.3 [facility] MCHC Auto (RBC) [Mass/Vol]Or dered By: Justin Francisco on 01-03-2022 MCHC (RBC) [Mass/Vol] 32.6 g/dL 32.0-35.0 Fir [facility] MCV Auto (RBC) [Entitic vol] Ordered By: Justin Francisco on 01-03-2022 MCV (RBC) [Entitic vol] 91.0 fL 80-100 F [facility] Monocytes Auto (Bld) [#/Vol] Ordered By: Justin Francisco on 01-03-2022 Monocytes (Bld) [#/Vol] 0.6 10*3/uL 0.0-0.8 [facility] Monocytes/100 WBC Auto (Bld) Ordered By: Justin Francisco on 01-03-2022 Monocytes/100 WBC (Bld) 8.9 % . F [facility] Neutrophils Auto (Bld) [#/Vo l]Ordered By: Justin Francisco on 01-03-2022 Neutrophils (Bld) [#/Vol] 4.3 10*3/uL 1.8-7.7 [facility] Neutrophils/100 WBC Auto (Bl d)Ordered By: Justin Francisco on 01-03-2022 Neutrophils/100 WBC (Bld) 66.8 % . [facility] Nitrite Test strip Ql (U)Ord ered By: Justin Francisco on 01-03-2022 Nitrite Ql (U) Negative Negative [facility] No Panel InformationOrdered By: Justin Francisco on 01-03-2022 Estimated GFR () 47 mL/Min [facility] Comment on above: GFR estimated refere nce range: According to KDOQI guidelines, <60 ml/min/1.73m2 is sufficient to diagnose a patient with chronic kidney disease. Pharmacy Creatinine Clearance (Chem 43.00 [facility] Valproic Acid (Depakene) Level 59.0 ug/mL 50.0-100.0 [facility] Comment on above: Last dose: - SARS Antigen (LFIA) [facility] Phencyclidine Screen Ql (U)O rdered By: Justin Francisco on 01-03-2022 Phencyclidine Ql (U) Negative Negative [facility] Platelet mean volume Auto (B ld) [Entitic vol]Ordered By: Justin Francisco on 01-03-2022 Platelet mean volume (Bld) [Entitic vol] 8.8 fL 6.3-10.7 [facility] Platelets Auto (Bld) [#/Vol] Ordered By: Justin Francisco on 01-03-2022 Platelets (Bld) [#/Vol] 236 10*3/uL 150-450 [facility] Protein Auto test strip (U) [Mass/Vol]Ordered By: Justin Francisco on 01-03-2022 Protein (U) [Mass/Vol] Negative Negative [facility] Protein [Mass/volume] in Ser um or PlasmaOrdered By: Justin Francisco on 01-03-2022 Protein [Mass/Vol] 6.7 g/dL 6.1-7.9 [facility] RBC Auto (Bld) [#/Vol]Ordere d By: Justin Francisco on 01-03-2022 RBC (Bld) [#/Vol] 4.50 10*6/uL 3.60-5.00 [facility] Salicylateon 01-03-2022 Salicylate < 4.0 Low 15.0-30.0 [facility] Comment on above: Result Comment: Phuong ents treated with Sulfasalazine may generate a false high result for Salicylate. Patients treated with Sulfapyridine may generate a false low result for Salicylate. Performed By: #### C MP, T4F, TSH3, CBC, ETOH, JUAN, ACET, VALP #### [facility] [address] Salicylates [Mass/volume] in Serum or PlasmaOrdered By: Justin Francisco on 01-03-2022 Salicylates [Mass/Vol] mg/dL 15.0-30.0 [facility] Comment on above: Patients treated wit h Sulfasalazine may generate a false high result for Salicylate.Patients treated with Sulfapyridine may generate a false low result for Salicylate. Serum or plasma acetaminophe n measurement (mass/volume)Ordered By: Justin Francisco on 01-03-2022 Acetaminophen [Mass/Vol] 25.3 ug/mL 10.0-30.0 [facility] Serum or plasma alanine [place] otransferase measurement without P-5'-P (enzymatic activiOrdered By: Justin Francisco on 01-03-2022 ALT No additional P-5'-P [Catalytic activity/Vol] 14 U/L 10-60 [facility] Serum or plasma albumin/glob ulin mass ratioOrdered By: Justin Francisco on 01-03-2022 Albumin/Globulin [Mass ratio] 1.2 {ratio} [facility] Serum or plasma alkaline [place] sphatase measurement (enzymatic activity/volume)Ordered By: Justin Francisco on 01-03-2022 ALP [Catalytic activity/Vol] 40 U/L 32-92 [facility] Serum or plasma anion gap de terminationOrdered By: Justin Francisco on 01-03-2022 Anion gap [Moles/Vol] 16.7 mmol/L 6.0-15.0 [facility] Serum or plasma aspartate am inotransferase measurement (enzymatic activity/volume)Ordered By: Justin Francisco on 01-03-2022 AST [Catalytic activity/Vol] 18 U/L [facility] Serum or plasma calcium sarah urement (mass/volume)Ordered By: Justin Francisco on 01-03-2022 Calcium [Mass/Vol] 9.5 mg/dL 8.2-10.2 [facility] Serum or plasma chloride deep surement (moles/volume)Ordered By: Justin Francisco on 01-03-2022 Chloride [Moles/Vol] 99 mmol/L 95-114 [facility] Serum or plasma ethanol sarah urement (mass/volume)Ordered By: Justin Francisco on 01-03-2022 Ethanol [Mass/Vol] mg/dL [facility] Ethanol [Mass/Vol] TNP [facility] Comment on above: Test not performed Serum or plasma glucose sarah urement (mass/volume)Ordered By: Justin Francisco on 01-03-2022 Glucose [Mass/Vol] 137 mg/dL 70-100 [facility] Comment on above: ADA recommended refe rence rangeRandom Glucose Reference Range is dependent on time and content of last meal. Glucose of more than 200 mg/dL in a nonstressed, ambulatory subject supports the diagnosis of Diabetes Mellitus. Serum or plasma potassium me asurement (moles/volume)Ordered By: Justin Francisco on 01-03-2022 Potassium [Moles/Vol] 4.3 mmol/L 3.5-5.1 [facility] Serum or plasma sodium measu rement (moles/volume)Ordered By: Justin Francisco on 01-03-2022 Sodium [Moles/Vol] 135 mmol/L 136-146 [facility] Serum or plasma total biliru bin measurement (mass/volume)Ordered By: Justin Francisco on 01-03-2022 Bilirubin [Mass/Vol] 0.6 mg/dL 0.3-1.2 [facility] Serum or plasma total carbon dioxide measurement (moles/volume)Ordered By: Justin Francisco on 01-03-2022 CO2 [Moles/Vol] 23.6 mmol/L 22.0-30.0 [facility] Serum or plasma urea nitroge n measurement (mass/volume)Ordered By: Justin Francisco on 01-03-2022 Urea nitrogen [Mass/Vol] 14 mg/dL 12-23 [facility] Delores Ag Negativeon 01-04-20 Delores Ag Negative Negative Normal Negative [facility] Comment on above: Result Comment: This is a duplicate [place] SARS Antigen (MARLINE) result to be used for statistical tracking purpose only. PERFORMED BY: [facility] [address] [place] [address] PATHOLOGIST [employer] ANTONY ELIAS M.D. Performed By: #### C BC, CMP, PHOS, MG, LIPID #### [facility] [address] [place] [address] [facility] Specific gravity Auto test s trip (U) [Rel density]Ordered By: Justin Francisco on 01-03-2022 Specific gravity (U) [Rel density] 1.012 1.001-1.030 [facility] Squamous epithelial cells de tection in urine sediment by light microscopyOrdered By: Justin Francisco on 01-03-2022 Epithelial cells.squamous LM Ql (Urine sed) 3-4 [HPF] 0-2 [facility] TSH DL <= 0.005 mIU/L QnOrde red By: Justin Francisco on 01-03-2022 TSH Qn 4.71 m[IU]/L 0.45-5.33 [facility] Thyroid Stimulating Hormoneo n 01-03-2022 TSH Qn 4.71 m[IU]/L Normal 0.45-5.33 [facility] Comment on above: Result Comment: PERF ORMED BY: [facility] [address] [place] [address] PATHOLOGIST [employer] ANTONY ELIAS M.D. Performed By: #### C BC, CMP, PHOS, MG, LIPID #### [facility] [address] [place] [address] [facility] Thyroxine (T4) free [Mass/vo lume] in Serum or PlasmaOrdered By: Justin Francisco on 01-03-2022 Free T4 [Mass/Vol] 1.10 ng/dL 0.61-1.12 [facility] Urine Cultureon 01-03-2022 Bacteria identified Cx Nom (U) ORGANISM: Escherichia coli (O:ESCCOL) [place] Count >100,000 Aerobic AHMET Charge (NUC86) ---- [...] RESISTANT TO ALL B-LACTAM DRUGS. PERFORMED BY: [place] [address] PATHOLOGIST [employer] ANTONY ELIAS M.D. Normal [facility] Comment on above: Performed By: #### C BC, CMP, PHOS, MG, LIPID #### [facility] [address] Urine bacteria detection by automated methodOrdered By: Justin Francisco on 01-03-2022 Bacteria Auto Ql (U) 2+ None Seen [facility] Urine clarity by refractomet ry automatedOrdered By: Justin Francisco on 01-03-2022 Clarity Refractometry automated (U) Clear Clear [facility] Urine cocaine detectionOrder ed By: Justin Francisco on 01-03-2022 Cocaine Ql (U) Negative Negative [facility] Urine glucose measurement by automated test strip (mass/volume)Ordered By: Justin Francisco on 01-03-2022 Glucose Auto test strip (U) [Mass/Vol] Normal mg/dL Normal [facility] Urine hemoglobin detection b y automated test stripOrdered By: Justin Francisco on 01-03-2022 Hemoglobin Auto test strip Ql (U) Negative Negative [facility] Urine leukocyte esterase det ection by automated test stripOrdered By: Justin Francisco on 01-03-2022 Leukocyte esterase Auto test strip Ql (U) 2+ Negative [facility] Urobilinogen Auto test strip (U) [Mass/Vol]Ordered By: Justin Francisco on 01-03-2022 Urobilinogen (U) [Mass/Vol] Normal mg/dL Normal [facility] Valproic Acid (in house)on 1 Valproic Acid (in house) 59.0 ug/mL Normal 50.0-100.0 [facility] Comment on above: Result Comment: Last dose: - PERFORMED BY: [place] [address] PATHOLOGIST [employer] ANTONY ELIAS M.D. Performed By: #### C MP, T4F, TSH3, CBC, ETOH, JUAN, ACET, VALP #### [facility] [address] Yeast detection in urine sed iment by light microscopyOrdered By: Justin Francisco on 01-03-2022 Yeast LM Ql (Urine sed) None seen [HPF] None Se en [facility] pH Auto test strip (U)Ordere d By: Justin Francisco on 01-03-2022 pH (U) 5.5 [pH] 5.0-9.0 [facility] CBC AUTO DIFFon 10-27-2021 BASO # 0.1 103/ul Normal 0.0-0.1 [facility] Comment on above: Performed By: #### C BC ####[facility] [id number] [place] [address]Dr. Julio Goddard Basophils/100 WBC (Bld) 0.6 % Normal 0.2-2.0 [facility] Comment on above: Performed By: #### C BC ####[facility] [id number] [place], [place] [address]Dr. Julio Goddard EO # 0.2 103/ul Normal 0.0-0.7 [facility] Comment on above: Performed By: #### C BC ####[facility] [id number] [place], [place] [address]Dr. Julio Goddard Eosinophils/100 WBC (Bld) 2.4 % Normal 0.9-7.0 [facility] [facility] Comment on above: Performed By: #### C BC ####[facility] Giblxinnof[address] [place], [place] [address]Dr. Julio Goddard Erythrocyte distribution width (RBC) [Ratio] 15.0 % Normal 11.0-15.0 [facility] Comment on above: Performed By: #### C BC ####[facility] Nkktwed[address] [place], [place] [address]Dr. Julio Goddard Hematocrit (Bld) [Volume fraction] 37.4 % Normal 36.0-48.0 [facility] Comment on above: Performed By: #### C BC ####[facility] [address] [place], [place] [address]Dr. Julio Goddard Hemoglobin (Bld) [Mass/Vol] 12.2 g/dL Normal 12.0-16.0 [facility] Comment on above: Performed By: #### C BC ####[facility] I[address] [place], [place] [address]Dr. Julio Goddard IG # 0.04 10e3/ul Critically high 0.00-0.03 [facility] Comment on above: Performed By: #### C BC ####[facility] [address] [place], [place] [address]Dr. Julio Goddard IG % 0.4 % Normal 0.0-0.5 [facility] Comment on above: Performed By: #### C BC ####[facility] [address] [place] [id number]. Julio Rupesh LYMPH # 2.3 103/ul Normal 1.2-3.8 [facility] Comment on above: Performed By: #### C BC ####[facility] [address] [place] [id number]. Julio Goddard Lymphocytes/100 WBC (Bld) 23.6 % Normal 20.5-60.0 [facility] Comment on above: Performed By: #### C BC ####[facility] [address] [place] [id number]. Julio Goddard MANUAL DIFF REQ NO Normal [facility] Comment on above: Performed By: #### C BC ####[facility] [address]lt[address] [place] [id number]. Julio Goddard MCH (RBC) [Entitic mass] 29.3 pg Normal 26.7-34.0 [facility] Comment on above: Performed By: #### C BC ####[facility] [address] [place] [id number]. Julio Goddard MCHC (RBC) [Mass/Vol] 32.6 g/dL Normal 29.9-35.2 [facility] Comment on above: Performed By: #### C BC ####[facility] [address] [place] [id number]. Julio Goddard MCV (RBC) [Entitic vol] 89.7 fL Normal 81.0-99.0 [facility] Comment on above: Performed By: #### C BC ####[facility] [address] [place] [id number]. Julio Goddard MONO # 0.6 103/ul Normal 0.3-0.8 [facility] Comment on above: Performed By: #### C BC ####[facility] [address] [place] [id number]. Julio Goddard Monocytes/100 WBC (Bld) 5.5 % Normal 1.7-12.0 [facility] Comment on above: Performed By: #### C BC ####[facility] [address]jg[address] [place] [id number]. Julio Goddard NEUT # 6.7 103/ul Critically high 1.4-6.5 [facility] Comment on above: Performed By: #### C BC ####[facility] [address]izmh[address] [place] [id number]. Julio Goddard Neutrophils/100 WBC (Bld) 67.5 % Normal 43.0-75.0 [facility] Comment on above: Performed By: #### C BC ####[facility] [address]ub[address] [place] [id number]. Julio Goddard Platelet mean volume (Bld) [Entitic vol] 10.2 fL Normal 9.5-13.5 [facility] Comment on above: Performed By: #### C BC ####[facility] [address] [place] [address]Dr. Julio Goddard PLT 296 103/ul Normal 150-450 [facility] Comment on above: Performed By: #### C BC ####[facility] Tept[address]ylk[address] [place] [id number]. Julio Goddard RBC 4.17 106/ul Critically low 4.20-5.40 [facility] Comment on above: Performed By: #### C BC ####[facility] [address] [place] [id number]. Julio Goddard WBC 9.9 103/ul Normal 4.0-11.0 [facility] Comment on above: Performed By: #### C BC ####[facility] [address]zkv[address] [place] [id number]. Julio Goddard LIPID PROFILEon 10-27-2021 CHOL-HDL RATIO NORM SEE BELOW Normal [facility] Comment on above: Result Comment: 3.3 - 4.4 LOW RISK 4.4 - 7.1 AVERAGE RISK 7.1 - 11.0 MODERATE RISK >11.0 HIGH RISK Performed By: #### C MP, LIPID ####[facility] [address]xdwtp[address] [place] [id number]. Julio Goddard Cholesterol [Mass/Vol] 148 mg/dL Normal <=200 Th [facility] Comment on above: Performed By: #### C MP, LIPID ####[facility] [address]ne[address]ifge[address] [place] [id number]. Julio Goddard Cholesterol in HDL [Mass/Vol] 60 mg/dL Normal 40-60 [facility] Comment on above: Performed By: #### C MP, LIPID ####[facility] V[address]ps[address]fkv[address] [place] [id number]. Julio Goddard Cholesterol in LDL [Mass/Vol] 72.2 mg/dL Normal [facility] Comment on above: Performed By: #### C MP, LIPID ####[facility] Xvolwuprnh[address] [place] [id number]. Julio Goddard Cholesterol.total/Tila sterol in HDL [Mass ratio] 2.5 {ratio} Normal [facility] Comment on above: Performed By: #### C MP, LIPID ####[facility] [address]hcqad[address] [place] [id number]. Julio Goddard HDL NORMAL > or = 60 mg/dl - LO W CARDIOVASCULAR RISK <40 mg/dl - HIGH CARDIOVASCULAR RISK Normal [facility] Comment on above: Performed By: #### C MP, LIPID ####[facility] Wil[address]wnagn[address] [place] [id number]. Julio Goddard LDL CALC NORMAL SEE BELOW Normal [facility] Comment on above: Result Comment: <100 mg/dl OPTIMAL 100 - 129 mg/dl NEAR OR ABOVE OPTIMAL 130 - 159 mg/dl BORDERLINE HIGH 160 - 189 mg/dl HIGH >190 mg/dl VERY HIGH Performed By: #### C MP, LIPID ####[facility] [address]ql[address] [place] [id number]. Julio Goddard Triglyceride [Mass/Vol] 79 mg/dL Normal <=150 T [facility] Comment on above: Performed By: #### C MP, LIPID ####[facility] [address]vlhdc[address] [place] [phone]. Julio Goddard VLDL CALC 15.8 mg/dL Normal [facility] Comment on above: Performed By: #### C MP, LIPID ####[facility] [address] [place], [place] [address]JkDr. Julio Goddard PROF 14(COMP METB)on 022 Albumin [Mass/Vol] 3.7 g/dL Normal 3.4-5.0 [facility] Comment on above: Performed By: #### C MP, LIPID #### [facility] [address] [address] [address] Julio Goddard Albumin/Globulin [Mass ratio] 1.0 {ratio} Normal [facility] Comment on above: Performed By: #### C MP, LIPID #### [facility] [address] [address] [address] Julio Goddard ALP [Catalytic activity/Vol] 53 U/L Normal 46-116 [facility] Comment on above: Performed By: #### C MP, LIPID #### [facility] [address] [address] [address] Julio Goddard ALT [Catalytic activity/Vol] 15 U/L Normal 14-59 [facility] Comment on above: Performed By: #### C MP, LIPID #### [facility] [address] [address] [address] Julio Goddard Anion gap [Moles/Vol] 16.1 mmol/L Normal [facility] Comment on above: Performed By: #### C MP, LIPID #### [facility] [address] [address] [address] Julio Goddard AST [Catalytic activity/Vol] 8 U/L Critically low 15-37 [facility] Comment on above: Performed By: #### C MP, LIPID #### [facility] [address] [address] [address] Julio Goddard Bilirubin [Mass/Vol] 0.5 mg/dL Normal 0.2-1.0 [facility] Comment on above: Performed By: #### C MP, LIPID #### [facility] [address] [address] [address] Julio Goddard Calcium [Mass/Vol] 9.1 mg/dL Normal 8.5-10.1 [facility] Comment on above: Performed By: #### C MP, LIPID #### [facility] [address] [address] [address] Julio Goddard Chloride [Moles/Vol] 106 mmol/L Normal 98-107 [facility] Comment on above: Performed By: #### C MP, LIPID #### [facility] [address] [address] [address] Julio Goddard CO2 [Moles/Vol] 24.1 mmol/L Normal 21.0-32.0 [facility] Comment on above: Performed By: #### C MP, LIPID #### [facility] [address] [place] [address] Dr. Julio Goddard Creatinine [Mass/Vol] 1.40 mg/dL Critically high 0.55-1.02 [facility] Comment on above: Performed By: #### C MP, LIPID #### [facility] [address] [place] [address] Dr. Julio Goddard EGFR-AF CAMEROONIAN 47 mL/min/1.73m2 Critically low >=60 [facility] Comment on above: Performed By: #### C MP, LIPID #### [facility] [address] [place] [address] Dr. Julio Goddard EGFR-NON AF CAMEROONIAN 39 mL/min/1.73m2 Critically low >=60 [facility] Comment on above: Performed By: #### C MP, LIPID #### [facility] [address] [place] [address] Dr. Julio Goddard Globulin (S) [Mass/Vol] 3.6 g/dL Normal T [facility] Comment on above: Performed By: #### C MP, LIPID #### [facility] [address] [place] [address] Dr. Julio Goddard Glucose [Mass/Vol] 95 mg/dL Normal 74-106 [facility] Comment on above: Performed By: #### C MP, LIPID #### [facility] [address] [place] [address] Dr. Julio Goddard Potassium [Moles/Vol] 4.2 mmol/L Normal 3.5-5.1 [facility] Comment on above: Performed By: #### C MP, LIPID #### [facility] [address] [place] [address] Dr. Julio Goddard Protein [Mass/Vol] 7.3 g/dL Normal 6.4-8.2 [facility] Comment on above: Performed By: #### C MP, LIPID #### [facility] [address] [place] [address] Dr. Julio Goddard Sodium [Moles/Vol] 142 mmol/L Normal 136-145 [facility] Comment on above: Performed By: #### C MP, LIPID #### [facility] [address] [place] [address] Dr. Julio Goddard Urea nitrogen [Mass/Vol] 18.0 mg/dL Normal 7.0-18.0 [facility] Comment on above: Performed By: #### C MP, LIPID #### [facility] [address] [place] [address] Dr. Julio Goddard Urea nitrogen/Creatinine [Mass ratio] 12.9 mg/mg Normal [facility] Comment on above: Performed By: #### C MP, LIPID #### [facility] [address] [place] [address] Dr. Julio Goddard INSULINon 03-23-2021 Insulin 10.0 uIU/mL Normal 2.6-24.9 [facility] Comment on above: Performed By: #### I NSULIN #### [facility] [address] [place] [address] Dr. Julio Goddard VIT D 25-OH LABCORPon 2020 Vitamin D, 25-Hydroxy 11.8 ng/mL Critically low 30.0-100.0 [facility] Comment on above: Result Comment: Swati min D deficiency has been defined by the [place] [employer] and an Endocrine Society practice guideline as a level of serum 25-OH vitamin D less than 20 ng/mL (1,2). The Endocrine Society went on to further define vitamin D insufficiency as a level between 21 and 29 ng/mL (2). 1. IOM ([place] of [employer]). 2010. Dietary reference intakes for calcium and D. Gerardo [place]: The National Academies Press. 2. Matt MF, Wilma NC, Shiraz ELIZONDO, et al. Evaluation, treatment, and prevention of vitamin D deficiency: an Endocrine Society clinical practice guideline. JCEM. 2010; 96(7):1911-30. Performed By: #### V ITADLC ####[facility] [address] [place] [address]Dr. Julio Goddard CBC AUTO DIFFon 03-22-2021 BASO # 0.1 103/ul Normal 0.0-0.1 [facility] Comment on above: Performed By: #### C BC #### [facility] [address] [address] [address] Julio Goddard Basophils/100 WBC (Bld) 0.8 % Normal 0.2-2.0 [facility] Comment on above: Performed By: #### C BC #### [facility] [address] [address] [address] Julio Goddard EO # 0.2 103/ul Normal 0.0-0.7 [facility] Comment on above: Performed By: #### C BC #### [facility] [address] [address] [address] Julio Goddard Eosinophils/100 WBC (Bld) 2.6 % Normal 0.9-7.0 [facility] Comment on above: Performed By: #### C BC #### [facility] [address] [address] [address] Julio Goddard Erythrocyte distribution width (RBC) [Ratio] 14.2 % Normal 11.0-15.0 [facility] Comment on above: Performed By: #### C BC #### [facility] [address] [address] [address] Julio Goddard Hematocrit (Bld) [Volume fraction] 37.4 % Normal 36.0-48.0 [facility] Comment on above: Performed By: #### C BC #### [facility] [address] [address] [address] Julio Goddard Hemoglobin (Bld) [Mass/Vol] 11.9 g/dL Critically low 12.0-16.0 [facility] Comment on above: Performed By: #### C BC #### [facility] [address] [place] [address] Dr. Julio Goddard IG # 0.02 10e3/ul Normal 0.00-0.03 [facility] Comment on above: Performed By: #### C BC #### [facility] [address] [place] [address] Dr. Julio Goddard IG % 0.3 % Normal 0.0-0.5 [facility] Comment on above: Performed By: #### C BC #### [facility] [address] [place] [address] Dr. Julio Goddard LYMPH # 1.8 103/ul Normal 1.2-3.8 [facility] Comment on above: Performed By: #### C BC #### [facility] [address] [place] [address] Dr. Julio Goddard Lymphocytes/100 WBC (Bld) 27.6 % Normal 20.5-60.0 [facility] Comment on above: Performed By: #### C BC #### [facility] [address] [place] [address] Dr. Julio Goddard MANUAL DIFF REQ NO Normal [facility] Comment on above: Performed By: #### C BC #### [facility] [address] [place] [address] Dr. Julio Goddadr MCH (RBC) [Entitic mass] 29.1 pg Normal 26.7-34.0 [facility] Comment on above: Performed By: #### C BC #### [facility] [address] [place] [address] Dr. Julio Goddard MCHC (RBC) [Mass/Vol] 31.8 g/dL Normal 29.9-35.2 [facility] Comment on above: Performed By: #### C BC #### [facility] [address] [place] [address] Dr. Julio Goddard MCV (RBC) [Entitic vol] 91.4 fL Normal 81.0-99.0 [facility] Comment on above: Performed By: #### C BC #### [facility] [address] [address] [address] Julio Goddard MONO # 0.6 103/ul Normal 0.3-0.8 [facility] Comment on above: Performed By: #### C BC #### [facility] [address] [address] [address] Julio Goddard Monocytes/100 WBC (Bld) 8.7 % Normal 1.7-12.0 [facility] Comment on above: Performed By: #### C BC #### [facility] [address] [place] [address] Dr. Julio Goddard NEUT # 3.9 103/ul Normal 1.4-6.5 [facility] Comment on above: Performed By: #### C BC #### [facility] [address] [place] [address] Dr. Julio Goddard Neutrophils/100 WBC (Bld) 60.0 % Normal 43.0-75.0 [facility] Comment on above: Performed By: #### C BC #### [facility] [address] [place] [address] Dr. Julio Goddard Platelet mean volume (Bld) [Entitic vol] 10.1 fL Normal 9.5-13.5 [facility] Comment on above: Performed By: #### C BC #### [facility] [address] [place] [address] Dr. Julio Goddard PLT 263 103/ul Normal 150-450 [facility] Comment on above: Performed By: #### C BC #### [facility] [address] [place] [address] Dr. Julio Goddard RBC 4.09 106/ul Critically low 4.20-5.40 [facility] Comment on above: Performed By: #### C BC #### [facility] [address] [place] [address] Dr. Julio Goddard WBC 6.5 103/ul Normal 4.0-11.0 [facility] Comment on above: Performed By: #### C BC #### [facility] [address] [address] [address] Julio Goddard FREE THYROXINE INDEX T7on FTI 3.50 Normal [facility] Comment on above: Performed By: #### C MP, T7, LIPID, TSH #### [facility] [address] [address] [address] Julio Goddard T3U 35.0 % Normal 23.5-40.5 [facility] Comment on above: Performed By: #### C MP, T7, LIPID, TSH #### [facility] [address] [address] [address] Julio Goddard T4 [Mass/Vol] 10.00 ug/dL Normal 5.53-11.00 [facility] Comment on above: Performed By: #### C MP, T7, LIPID, TSH #### [facility] [address] [address] [address] Julio Goddard GLYCOHEMOGLOBIN A1Con 2020 ADA RECOMMENDATION ADA THERAPEUTIC TARGET 6.0 - 7.0 ACTION SUGGESTED > 7.0 Normal [facility] Comment on above: Performed By: #### A 1C #### [facility] [address] [address] [address] Julio Goddard Glucose [Mass/Vol] 103 mg/dL Normal [facility] Comment on above: Performed By: #### A 1C #### [facility] [address] [address] [address] Julio Goddard HbA1c (Bld) [Mass fraction] 5.2 % Normal <=6.0 [facility] Comment on above: Performed By: #### A 1C #### [facility] [address] [address] [address] Julio Goddard IRONon 03-22-2021 Iron [Mass/Vol] 55.0 ug/dL Normal 37.0-170.0 [facility] Comment on above: Performed By: #### I MARIA E ####[facility] [address] [place] [address]Dr. Julio Goddard LIPID PROFILEon 03-22-2021 CHOL-HDL RATIO NORM SEE BELOW Normal [facility] Comment on above: Result Comment: 3.3 - 4.4 LOW RISK 4.4 - 7.1 AVERAGE RISK 7.1 - 11.0 MODERATE RISK >11.0 HIGH RISK Performed By: #### C MP, T7, LIPID, TSH #### [facility] [address] [address] [address] Julio Goddard Cholesterol [Mass/Vol] 163 mg/dL Normal <=200 Th [facility] Comment on above: Performed By: #### C MP, T7, LIPID, TSH #### [facility] [address] [address] [address] Julio Goddard Cholesterol in HDL [Mass/Vol] 65 mg/dL Normal [facility] Comment on above: Performed By: #### C MP, T7, LIPID, TSH #### [facility] [address] [address] [address] Julio Goddard Cholesterol in LDL [Mass/Vol] 80.8 mg/dL Normal [facility] Comment on above: Performed By: #### C MP, T7, LIPID, TSH #### [facility] [address] [address] [address] Julio Goddard Cholesterol.total/Tila sterol in HDL [Mass ratio] 2.5 {ratio} Normal [facility] Comment on above: Performed By: #### C MP, T7, LIPID, TSH #### [facility] [address] [address] [address] Julio Goddard HDL NORMAL > or = 60 mg/dl - LO W CARDIOVASCULAR RISK <40 mg/dl - HIGH CARDIOVASCULAR RISK Normal [facility] Comment on above: Performed By: #### C MP, T7, LIPID, TSH #### [facility] [address] [address] [address] Julio Goddard LDL CALC NORMAL SEE BELOW Normal [facility] Comment on above: Result Comment: <100 mg/dl OPTIMAL 100 - 129 mg/dl NEAR OR ABOVE OPTIMAL 130 - 159 mg/dl BORDERLINE HIGH 160 - 189 mg/dl HIGH >190 mg/dl VERY HIGH Performed By: #### C MP, T7, LIPID, TSH #### [facility] [address] [address] [address] Julio Goddard Triglyceride [Mass/Vol] 86 mg/dL Normal <=150 T [facility] Comment on above: Performed By: #### C MP, T7, LIPID, TSH #### [facility] [address] [address] [address] Julio Goddard VLDL CALC 17.2 mg/dL Normal [facility] Comment on above: Performed By: #### C MP, T7, LIPID, TSH #### [facility] [address] [address] [address] Julio Goddard PROF 14(COMP METB)on 021 Albumin [Mass/Vol] 3.5 g/dL Normal 3.5-5.0 [facility] Comment on above: Performed By: #### C MP, T7, LIPID, TSH #### [facility] [address] [address] [address] Julio Goddard Albumin/Globulin [Mass ratio] 1.0 {ratio} Normal [facility] Comment on above: Performed By: #### C MP, T7, LIPID, TSH #### [facility] [address] [address] [address] Julio Goddard ALP [Catalytic activity/Vol] 58 U/L Normal 38-126 [facility] Comment on above: Performed By: #### C MP, T7, LIPID, TSH #### [facility] [address] [address] [address] Julio Goddard ALT [Catalytic activity/Vol] 16 U/L Normal 9-52 [facility] Comment on above: Performed By: #### C MP, T7, LIPID, TSH #### [facility] [address] [address] [address] Julio Goddard Anion gap [Moles/Vol] 13.0 mmol/L Normal [facility] Comment on above: Performed By: #### C MP, T7, LIPID, TSH #### [facility] [address] [address] [address] Julio Goddard AST [Catalytic activity/Vol] 10 U/L Critically low 14-36 [facility] Comment on above: Performed By: #### C MP, T7, LIPID, TSH #### [facility] [address] [address] [address] Julio Goddard Bilirubin [Mass/Vol] 0.6 mg/dL Normal 0.2-1.3 [facility] Comment on above: Performed By: #### C MP, T7, LIPID, TSH #### [facility] [address] [place] [address] Dr. Julio Goddard Calcium [Mass/Vol] 9.4 mg/dL Normal 8.4-10.2 [facility] Comment on above: Performed By: #### C MP, T7, LIPID, TSH #### [facility] [address] [place] [address] Dr. Julio Goddard Chloride [Moles/Vol] 105 mmol/L Normal 98-107 [facility] Comment on above: Performed By: #### C MP, T7, LIPID, TSH #### [facility] [address] [place] [address] Dr. Julio Goddard CO2 [Moles/Vol] 28.3 mmol/L Normal 22.0-30.0 [facility] Comment on above: Performed By: #### C MP, T7, LIPID, TSH #### [facility] [address] [place] [address] Dr. Julio Goddard Creatinine [Mass/Vol] 1.37 mg/dL Critically high 0.52-1.04 [facility] Comment on above: Performed By: #### C MP, T7, LIPID, TSH #### [facility] [address] [place] [address] Dr. Julio Goddard EGFR-AF CAMEROONIAN 48 mL/min/1.73m2 Critically low >=60 [facility] [facility] Comment on above: Performed By: #### C MP, T7, LIPID, TSH #### [facility] [address] [place] [address] Dr. Julio Goddard EGFR-NON AF CAMEROONIAN 40 mL/min/1.73m2 Critically low >=60 [facility] Comment on above: Performed By: #### C MP, T7, LIPID, TSH #### [facility] [address] [place] [address] Dr. Julio Goddard Globulin (S) [Mass/Vol] 3.5 g/dL Normal [facility] Comment on above: Performed By: #### C MP, T7, LIPID, TSH #### [facility] [address] [place] [address] Dr. Julio Goddard Glucose [Mass/Vol] 110 mg/dL Critically high 74-106 [facility] Comment on above: Performed By: #### C MP, T7, LIPID, TSH #### [facility] [address] [place] [address] Dr. Julio Goddard Potassium [Moles/Vol] 4.3 mmol/L Normal 3.4-5.0 [facility] Comment on above: Performed By: #### C MP, T7, LIPID, TSH #### [facility] [address] [place] [address] Dr. Julio Goddard Protein [Mass/Vol] 7.0 g/dL Normal 6.1-8.2 [facility] Comment on above: Performed By: #### C MP, T7, LIPID, TSH #### [facility] [address] [place] [address] Dr. Julio Goddard Sodium [Moles/Vol] 142 mmol/L Normal 137-145 [facility] Comment on above: Performed By: #### C MP, T7, LIPID, TSH #### [facility] [address] [place] [address] Dr. Julio Goddard Urea nitrogen [Mass/Vol] 13.0 mg/dL Normal 7.0-17.0 [facility] Comment on above: Performed By: #### C MP, T7, LIPID, TSH #### [facility] [address] [place] [address] Dr. Julio Goddard Urea nitrogen/Creatinine [Mass ratio] 9.5 mg/mg Normal [facility] Comment on above: Performed By: #### C MP, T7, LIPID, TSH #### [facility] [address] [place] [address] Dr. Julio Goddard TSHon 03-22-2021 TSH 2.734 uIU/mL Normal 0.470-4.680 [facility] Comment on above: Performed By: #### C MP, T7, LIPID, TSH #### [facility] [address] [place], [place] [address] Dr. Julio Goddard TSH RANGE SEE BELOW Normal [facility] Comment on above: Result Comment: <0.3 4 UIU/ml HYPERTHYROID 0.34-5.60 UIU/ml EUTHYROID >5.60 UIU/ml HYPOTHYROID Performed By: #### C MP, T7, LIPID, TSH #### [facility] [address] [place], [place] [address] Dr. Julio Goddard Vital Signs Date Time Vital Sign Value Performing Clinician Facility 07-08-2024 14:13-0400 Body height 157.5 cm Gilmer Rivera DPM Work Phone: [facility] 07-08-2024 14:13-0400 Body mass index (BMI) [Ratio] 36.21 kg/m2 Gilmer Rivera DPM Work Phone: [facility] 07-08-2024 14:13-0400 Body weight 89.81 kg Gilmer Rivera DPM Work Phone: [facility] 07-08-2024 14:13-0400 Respiratory rate 18 /min Gilmer Rivera DPM Work Phone: [facility] 02-12-2024 08:50-0500 Body height 157.5 cm Angelo De La Cruz MD Work Phone: [facility] 02-12-2024 08:50-0500 Body mass index (BMI) [Ratio] 34.75 kg/m2 nAgelo De La Cruz MD Work Phone: [facility] 02-12-2024 08:50-0500 Body weight 86.18 kg Angelo De La Cruz MD Work Phone: [facility] 02-12-2024 08:50-0500 Diastolic blood pressure 76 mm[Hg] Angelo De La Cruz MD Work Phone: [facility] 02-12-2024 08:50-0500 Systolic blood pressure 119 mm[Hg] Angelo De La Cruz MD Work Phone: [facility] 02-05-2024 10:32-0500 Body height 157.5 cm Angelo De La Cruz MD Work Phone: [facility] 02-05-2024 10:32-0500 Body mass index (BMI) [Ratio] 34.75 kg/m2 Angelo De La Cruz MD Work Phone: [facility] 02-05-2024 10:32-0500 Body weight 86.18 kg Angelo De La Cruz MD Work Phone: [facility] 02-05-2024 10:32-0500 Diastolic blood pressure 81 mm[Hg] Angelo De La Cruz MD Work Phone: [facility] 02-05-2024 10:32-0500 Systolic blood pressure 121 mm[Hg] Angelo De La Cruz MD Work Phone: [facility] 11-27-2023 14:51-0400 Blood Pressure Location OXANA DEVEN [facility] 11-27-2023 14:51-0400 Diastolic blood pressure 96 mm[Hg] OXANA DEVEN [facility] 11-27-2023 14:51-0400 Heart rate 66 /min OXANA DEVEN [facility] 11-27-2023 14:51-0400 Systolic blood pressure 144 mm[Hg] OXANA DEVEN [facility] 08-21-2023 09:39-0400 Blood Pressure Location OXANA DEVEN [facility] 08-21-2023 09:39-0400 Diastolic blood pressure 63 mm[Hg] OXANA DEVEN [facility] 08-21-2023 09:39-0400 Heart rate 74 /min OXANA CARVALHO [facility] 08-21-2023 09:39-0400 Respiratory rate 19 /min OXANA CARVALHO [facility] 08-21-2023 09:39-0400 Systolic blood pressure 108 mm[Hg] OXANA CARVALHO [facility] 05-30-2022 13:47-0500 Body height 157.5 cm Scott Mcallister MD Work Phone: [facility] 05-30-2022 13:47-0500 Body mass index (BMI) [Ratio] 32.74 kg/m2 Scott Mcallister MD Work Phone: [facility] 05-30-2022 13:47-0500 Body weight 81.19 kg Scott Mcallister MD Work Phone: [facility] 05-30-2022 13:47-0500 Diastolic blood pressure 84 mm[Hg] Scott Mcallister MD Work Phone: [facility] 05-30-2022 13:47-0500 Heart rate 76 /min Scott Mcallister MD Work Phone: [facility] 05-30-2022 13:47-0500 Respiratory rate 16 /min Scott Mcallister MD Work Phone: [facility] 05-30-2022 13:47-0500 SaO2% (BldA) [Mass fraction] 97 % Scott Mcallister MD Work Phone: [facility] 05-30-2022 13:47-0500 Systolic blood pressure 129 mm[Hg] Scott Mcallister MD Work Phone: [facility] 02-28-2022 12:48-0500 Body height 157.5 cm Scott Mcallister MD Work Phone: [facility] 02-28-2022 12:48-0500 Body mass index (BMI) [Ratio] 32.74 kg/m2 Scott Mcallister MD Work Phone: [facility] 02-28-2022 12:48-0500 Body weight 81.19 kg Scott Mcallister MD Work Phone: [facility] 02-28-2022 12:48-0500 Diastolic blood pressure 83 mm[Hg] Scott Mcallister MD Work Phone: [facility] 02-28-2022 12:48-0500 Heart rate 78 /min Scott Mcallister MD Work Phone: [facility] 02-28-2022 12:48-0500 Respiratory rate 18 /min Scott Mcallister MD Work Phone: [facility] 02-28-2022 12:48-0500 SaO2% (BldA) [Mass fraction] 95 % Scott Mcallister MD Work Phone: [facility] 02-28-2022 12:48-0500 Systolic blood pressure 132 mm[Hg] Scott Mcallister MD Work Phone: [facility] 01-05-2022 11:19-0400 Diastolic blood pressure 79 mm[Hg] DO Justin Francisco Work Phone: [facility] 01-05-2022 11:19-0400 Heart rate 75 /min DO Justin Francisco Work Phone: [facility] 01-05-2022 11:19-0400 Respiratory rate 18 /min DO Justin Francisco Work Phone: [facility] 01-05-2022 11:19-0400 SaO2% (BldA) [Mass fraction] 97 % DO Justin Francisco Work Phone: [facility] 01-05-2022 11:19-0400 Systolic blood pressure 126 mm[Hg] DO Justin Francisco Work Phone: [facility] 01-05-2022 08:17-0400 Body temperature 97.5 [degF] DO Justin Francisco Work Phone: [facility] 01-05-2022 04:44-0400 Body weight 79.8 kg DO Justin Francisco Work Phone: [facility] 01-04-2022 11:34-0400 Body height 157.48 cm DO Justin Francisco Work Phone: [facility] 01-03-2022 17:04-0400 Diastolic blood pressure 110 mm[Hg] DO Justin Francisco Work Phone: [facility] 01-03-2022 17:04-0400 Heart rate 88 /min DO Justin Francisco Work Phone: [facility] 01-03-2022 17:04-0400 Respiratory rate 20 /min DO Justin Francisco Work Phone: [facility] 01-03-2022 17:04-0400 SaO2% (BldA) [Mass fraction] 97 % DO Justin Nolan Work Phone: [facility] 01-03-2022 17:04-0400 Systolic blood pressure 180 mm[Hg] DO Justin Francisco Work Phone: [facility] 01-03-2022 14:43-0400 Body height 157.48 cm DO Justin Francisco Work Phone: [facility] 01-03-2022 14:43-0400 Body weight 80 kg DO Justin Francisco Work Phone: [facility] 01-03-2022 13:59-0400 Body temperature 98.5 [degF] DO Justin Francisco Work Phone: [facility] 10-14-2021 13:13-0400 Body height 157.5 cm Scott Mcallister MD Work Phone: [facility] 10-14-2021 13:13-0400 Body mass index (BMI) [Ratio] 32.92 kg/m2 Scott Mcallister MD Work Phone: [facility] 10-14-2021 13:13-0400 Body weight 81.65 kg Scott Mcallister MD Work Phone: [facility] 10-14-2021 13:13-0400 Diastolic blood pressure 85 mm[Hg] Scott Mcallister MD Work Phone: [facility] 10-14-2021 13:13-0400 Heart rate 76 /min Scott Mcallister MD Work Phone: [facility] 10-14-2021 13:13-0400 Respiratory rate 16 /min Scott Mcallister MD Work Phone: [facility] 10-14-2021 13:13-0400 SaO2% (BldA) [Mass fraction] 95 % Scott Mcallister MD Work Phone: [facility] 10-14-2021 13:13-0400 Systolic blood pressure 125 mm[Hg] Scott Mcallister MD Work Phone: [facility] 07-19-2021 12:55-0400 Body height 157.5 cm Scott Mcallister MD Work Phone: [facility] 07-19-2021 12:55-0400 Body mass index (BMI) [Ratio] 32.92 kg/m2 Scott Mcallister MD Work Phone: [facility] 07-19-2021 12:55-0400 Body weight 81.65 kg Scott Mcallister MD Work Phone: [facility] 07-19-2021 12:55-0400 Diastolic blood pressure 86 mm[Hg] Scott Mcallister MD Work Phone: [facility] 07-19-2021 12:55-0400 Heart rate 67 /min Scott Mcallister MD Work Phone: [facility] 07-19-2021 12:55-0400 Respiratory rate 16 /min Scott Mcallister MD Work Phone: [facility] 07-19-2021 12:55-0400 SaO2% (BldA) [Mass fraction] 98 % Scott Mcallister MD Work Phone: [facility] 07-19-2021 12:55-0400 Systolic blood pressure 126 mm[Hg] Scott Mcallister MD Work Phone: [facility] 09-24-2020 13:12-0400 Body height 157.5 cm Scott Mcallister MD Work Phone: [facility] 09-24-2020 13:12-0400 Body mass index (BMI) [Ratio] 32.92 kg/m2 Scott Mcallister MD Work Phone: [facility] 09-24-2020 13:12-0400 Body weight 81.65 kg Scott Mcallister MD Work Phone: [facility] 09-24-2020 13:12-0400 Diastolic blood pressure 89 mm[Hg] Scott Mcallister MD Work Phone: [facility] 09-24-2020 13:12-0400 Heart rate 67 /min Scott Mcallister MD Work Phone: [facility] 09-24-2020 13:12-0400 Respiratory rate 16 /min Scott Mcallister MD Work Phone: [facility] 09-24-2020 13:12-0400 SaO2% (BldA) [Mass fraction] 95 % Scott Mcallister MD Work Phone: [facility] 09-24-2020 13:12-0400 Systolic blood pressure 146 mm[Hg] Scott Mcallister MD Work Phone: [facility] 07-27-2020 12:59-0400 Body height 165.1 cm Scott Mcallister MD Work Phone: [facility] 07-27-2020 12:59-0400 Body mass index (BMI) [Ratio] 22.63 kg/m2 Scott Mcallister MD Work Phone: [facility] 07-27-2020 12:59-0400 Body weight 61.69 kg Scott Mcallister MD Work Phone: [facility] 05-17-2020 13:11-0500 BP Diastolic 103 mm[Hg] [facility] 05-17-2020 13:11-0500 BP Systolic 163 mm[Hg] [facility] 05-17-2020 13:11-0500 Height 157.5 cm [facility] 05-17-2020 13:11-0500 Pulse (Heart Rate) 66 /min [facility] 05-17-2020 13:11-0500 Pulse Oximetry 96 % [facility] 05-17-2020 13:11-0500 Respiratory Rate 16 /min [facility] Encounters Encounter Date Encounter Type Care Provider Facility Start: 07-08-2024 End: 07-08-2024 ambulatory GILMER RIVERA Not Available Start: 07-08-2024 End: 07-08-2024 Bamboo flowsheet Gilmer Rivera DPM Work Phone: [facility] Start: 07-08-2024 End: 07-08-2024 Bamboo flowsheet Gilmer Rivera DPM Work Phone: [facility] Start: 07-08-2024 End: 07-08-2024 Office outpatient new 45 minutes Gilmer Rivera DPM Work Phone: [facility] Comment on above: Lisfranc dislocation , left, initial encounter (Primary Dx); Plantar fasciitis; Contusion of left foot, initial encounter Start: 07-02-2024 End: 07-02-2024 ambulatory Terrie FALL Facility:[id number] Start: 06-17-2024 End: 06-17-2024 ambulatory Terrie FALL Facility:[facility] Start: 06-02-2024 ambulatory Terrie FALL Facility:[facility] Start: 02-12-2024 End: 02-12-2024 Bamboo flowskaylie De La Cruz MD Work Phone: [facility] Start: 02-12-2024 End: 02-12-2024 Isabela De La Cruz MD Work Phone: [facility] Start: 02-12-2024 End: 02-12-2024 Office outpatient visit 25 minutes Angelo De La Cruz MD Work Phone: [facility] Comment on above: Sudden right hearing loss (Primary Dx); Foreign body of right ear, initial encounter Start: 02-12-2024 End: 02-12-2024 Clinical Support Lilibeth Pena [facility] Work Phone: [facility] Comment on above: Sensorineural hearin g loss (SNHL) of both ears (Primary Dx); Ear pressure, right Start: 02-05-2024 End: 02-05-2024 Surendraboo mere De La Cruz MD Work Phone: [facility] Start: 02-05-2024 End: 02-05-2024 Bamboo mere De La Cruz MD Work [...] encounter procedure OXANA CARVALHO [facility] Start: 11-27-2023 End: 11-27-2023 Refill Scott Mcallister MD Work Phone: [facility] Start: 11-02-2023 End: 11-04-2023 [facility] Start: 11-02-2023 End: 11-04-2023 [facility] Start: 09-28-2023 End: 09-30-2023 [facility] Start: 09-28-2023 End: 09-30-2023 Subsequent hospital visit by physician Peter Arnett MD Work Phone: [facility] Start: 08-21-2023 End: 08-21-2023 ambulatory MATT CARVALHO Facility:[facility] Start: 08-21-2023 End: 08-21-2023 Patient encounter procedure OXANA CARVALHO [facility] Start: 05-30-2022 End: 05-30-2022 ambulatory UPENDER GEHLOT [facility] Start: 05-30-2022 End: 05-30-2022 Office outpatient visit 15 minutes Scott Mcallister MD Work Phone: [facility] Comment on above: Bipolar 1 disorder, mixed, mild (HCC) (Primary Dx); Insomnia due to mental disorder; VICKIE (generalized anxiety disorder) Start: 05-10-2022 Refill Scott Mcallister MD Work Phone: [facility] Start: 03-30-2022 Refill Scott Mcallister MD Work Phone: [facility] Comment on above: 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; VICKIE (generalized anxiety disorder) Start: 02-28-2022 End: 02-28-2022 ambulatory UPENDER GEHLOT [facility] Start: 02-28-2022 End: 02-28-2022 Office outpatient visit 25 minutes Scott Mcallister MD Work Phone: [facility] Comment on above: Bipolar 1 disorder, depressed, mild (HCC) (Primary Dx); Insomnia due to mental disorder; VICKIE (generalized anxiety disorder) Start: 01-19-2022 End: 10-21-[address] PETER ARNETT Facility:[facility] Start: 01-09-2022 End: 01-09-2022 ambulatory SCOTT MCALLISTER [facility] Start: 01-03-2022 End: 01-05-2022 ambulatory Peter Arnett Facility:[facility] Start: 01-03-2022 End: 01-05-2022 Evaluation and management of inpatient DO Justin Francisco Work Phone: [facility] Start: 01-03-2022 End: 01-05-2022 observation encounter DO Justin Francisco Work Phone: [facility] Work Phone: Start: 10-27-2021 End: 10-28-2021 ambulatory JELLYRANI MCALLISTER Facility:[facility] Start: 10-14-2021 End: 10-14-2021 ambulatory UPRANI [email or web address] [facility] Start: 10-14-2021 End: 10-14-2021 Office outpatient visit 15 minutes Scott Mcallister MD Work Phone: [facility] Comment on above: Bipolar 1 disorder, depressed, moderate (HCC) (Primary Dx); Insomnia due to mental disorder; VICKIE (generalized anxiety disorder) Start: 10-05-2021 [facility] Start: 07-22-2021 [facility] Start: 07-19-2021 End: 07-19-2021 ambulatory PETER ARNETT [facility] Start: 07-19-2021 End: 07-19-2021 Office outpatient visit 15 minutes Scott Mcallister MD Work Phone: [facility] Comment on above: Bipolar 1 disorder, depressed, moderate (HCC) (Primary Dx); Insomnia due to mental disorder; VICKIE (generalized anxiety disorder) Start: 05-16-2021 Refill Sarah Leigh MA [facility] Comment on above: 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 (Primary Dx) 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 Start: 03-30-2021 [facility]counter [facility] adult medical examination without abnormal findings DR PETER ARNETT [facility] Start: 03-29-2021 Refill Nellie Sky MA [facility] Start: 03-22-2021 End: 03-23-[address] PETER ARNETT Facility:[facility] Start: 03-22-2021 End: 03-23-2021 Encounter for general adult medical examination without abnormal findings DR PETER ARNETT Facility:[facility] Start: 12-07-2020 Refill Lidia hernandez LPN [facility] Comment on above: 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; VICKIE (generalized anxiety disorder) Start: 09-24-2020 End: 09-24-2020 Office outpatient visit 25 minutes Uprani Mcallister MD Work Phone: [facility] Comment on above: Bipolar 1 disorder, depressed, mild (HCC) (Primary Dx); Insomnia due to mental disorder; VICKIE (generalized anxiety disorder) Start: 08-31-2020 End: 08-31-2020 Refill Lidia Mahoney LPN [facility] Comment on above: 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; VICKIE (Generalized Anxiety Disorder) Start: 07-27-2020 End: 07-27-2020 Phys/qhp telephone evaluation 11-20 min Uprani Mcallister MD Work Phone: [facility] Comment on above: Bipolar 1 disorder, depressed, mild (HCC) (Primary Dx); Insomnia due to mental disorder; VICKIE (Generalized Anxiety Disorder) Start: 05-17-2020 End: 05-17-2020 Office outpatient visit 15 minutes Upender [employer] Work Phone: [facility] Comment on above: Bipolar 1 disorder, depressed, mild (HCC) (Primary Dx); VICKIE (Generalized Anxiety Disorder); Insomnia due to mental disorder Start: 04-06-2020 End: 04-06-2020 Phys/qhp telephone evaluation 11-20 min Upender [employer] Work Phone: [facility] Comment on above: Bipolar 1 disorder, depressed, mild (HCC); VICKIE (Generalized Anxiety Disorder); Insomnia due to mental disorder Procedures Date Procedure Procedure Detail Performing Clinician Start: 07-08-2024 Radex foot complete minimum 3 views Gilmer Rivera DPM Work Phone: Start: 02-12-2024 AUDITORY FUNCTION TESTS Lilibeth Pena CCC-A Work Phone: Start: 01-03-2022 CT [...] Treatment Date Care Activity Detail Author Start: 12-01-2024 Influenza vaccination Influenz a Vaccine (Season Ended) [facility] Start: 11-14-2024 ambulatory Ambulatory Facility:[facility] Start: 07-08-2024 End: 07-08-2025 CT Foot - left WO contrast CT foot left wo IV contrast Imaging Routine Lisfranc dislocation, left, initial encounter Expected: 07/08/2024, Expires: 07/08/2025 [facility] Work Phone: Comment on above: Expected: 07/08/2024 , Expires: 07/08/2025 Start: 02-05-2024 End: 02-05-2024 Patient encounter procedure 02/05/2024 10:30 AM EST Office Visit [facility] [address] [facility] [address] [place] [address] Angelo De La Cruz MD [address] [place], [place] [id number] Arrived [facility] Comment on above: Arrived Start: 12-02-2023 Influenza vaccination Influenza Vacc ine (#1) [facility] Start: 11-01-2023 Influenza vaccination Flu vacc ine (Season Ended) [facility] Start: 05-19-2023 Screening for malign ant neoplasm of colon [facility] Start: 2022 Respiratory Syncytia l Virus (RSV) or age 60 yrs+ (1 - 1-dose 60+ series) Respiratory Syncytial Virus (RSV) or age 60 yrs+ (1 - 1-dose 60+ series) [facility] Start: 12-01-2022 COVID-19 Vaccine ( season) COVID-19 Vaccine ( season) [facility] Start: 05-30-2022 End: 05-30-2022 Patient encounter procedure 05/30/2022 Office Visit Psychiatry Scott Mcallister MD [address] [address] [facility] Start: 01-09-2022 End: 01-09-2022 Patient encounter procedure 01/09/2022 Office Visit Psychiatry Scott Mcallister MD [address] [address] [facility] Start: 01-05-2022 [facility] Start: 01-04-2022 Comprehensive metabo lic 2000 panel - Serum or Plasma [facility] Start: 01-04-2022 Lipid panel [facility] Start: 01-04-2022 Magnesium measurement F [facility] Start: 01-04-2022 Phosphate [Mass/volu me] in Serum or Plasma [facility] Start: 01-04-2022 [facility] Start: 01-03-2022 Referral to psychiatrist [facility] Start: 01-03-2022 Hospital admission [facility] Start: 01-03-2022 [facility] Start: 12-01-2021 Influenza vaccination [facility] Start: 10-14-2021 End: 10-14-2021 Patient encounter procedure 10/14/2021 Office Visit Psychiatry Scott Mcallister MD [address] [facility] [address] [place] [id number] [facility] Start: 07-28-2021 COVID-19 Vaccine (4 - Booster for Pfizer series) COVID-19 Vaccine (4 - Booster for Pfizer series) [facility] Start: 07-15-2021 End: 07-15-2021 Patient encounter procedure 07/15/2021 Office Visit Psychiatry Scott Mcallister MD [address] [facility] [address] [place] [id number] [facility] Start: 05-24-2021 COVID-19 Vaccine (4 - Booster for Pfizer series) COVID-19 Vaccine (4 - Booster for Pfizer series) [facility] Start: 04-18-2021 End: 04-18-2021 Patient encounter procedure 04/18/2021 Office Visit Psychiatry Scott Mcallister MD [address] [facility] [address] [place] [id number] [facility] Start: 01-12-2021 COVID-19 Vaccine (3 - Booster for Pfizer series) COVID-19 Vaccine (3 - Booster for Pfizer series) [facility] Start: 01-03-2021 End: 01-03-2021 Patient encounter procedure [facility] Start: 12-01-2020 Influenza vaccination [facility] Start: 09-24-2020 End: 09-24-2020 Patient encounter procedure 09/24/2020 Office Visit Psychiatry Scott Mcallister MD [address] [facility] [address] [place] [id number] [phone] [facility] Start: 09-14-2020 End: 09-14-2020 Patient encounter procedure 09/14/2020 Office Visit Psychiatry Scott Mcallister MD [address] [facility] [address] [place] [address] [phone] [facility] Start: 09-10-2020 End: 09-10-2020 Office Visit 09/10/2020 Office Visit Psychiatry Scott Mcallister MD [address] [address] [phone] [facility] Start: 12-02-2019 Influenza vaccinatio n given Sequential Influenza Vaccine (#1) [facility] Start: 2012 Administration of he rpes zoster vaccine Zoster Vaccines (1 of 2) [facility] Start: 2012 Screening for malign ant neoplasm of colon [facility] Start: 2012 Shingles vaccine (1 of 2) Shingles vaccine (1 of 2) [facility] Start: 12-12-2007 Screening for malign ant neoplasm of colon [facility] Start: 2002 Lipid panel Lipids [facility] Start: 2002 Screening for malign ant neoplasm of breast [facility] Start: 1992 Screening for malign ant neoplasm of cervix [facility] Start: 12-12-1983 Screening for malign ant neoplasm of cervix Pap Smear [facility] Start: 1981 DTaP/Tdap/Td vaccine (1 - Tdap) DTaP/Tdap/Td vaccine (1 - Tdap) [facility] Start: 1980 Hepatitis C antibody , confirmatory test Hepatitis C Screening [facility] Start: 1980 Hepatitis C screening [facility] Start: 1978 COVID-19 Vaccine (1 of 2) COVID-19 Vaccine (1 of 2) [facility] Start: 1977 HIV screening [facility] Start: 1974 Depression Screen Depression Screen [facility] Start: 1965 History and physical examination, annual for health maintenance Wellness Visit [facility] Start: 1962 Screening for malign ant neoplasm of cervix Pap Smear [facility] Start: 1962 Screening for malign ant neoplasm of colon [facility] Start: 1962 Screening mammography Mammogram [facility] Start: 1962 Tetanus vaccination Tetanus: Every 1 0yrs [facility] Bacteria identified in Urine by Culture [facility] Work Phone: End: 10-14-2022 Complete blood count with white cell differential, manual CBC and Differential Lab Routine Bipolar 1 disorder, depressed, moderate (HCC) 1 Occurrences starting 10/14/2021 until 10/14/2022 [facility] Comment on above: 1 Occurrences starti ng 10/14/2021 until 10/14/2022 End: 10-14-2022 Comprehensive metabolic 2000 panel - Serum or Plasma Comprehensive Metabolic Panel Lab Routine Bipolar 1 disorder, depressed, moderate (HCC) 1 Occurrences starting 10/14/2021 until 10/14/2022 [facility] Work Phone: Comment on above: 1 Occurrences starti ng 10/14/2021 until 10/14/2022 End: 10-14-2022 Lipid 1996 panel - Serum or Plasma Lipid Panel Lab Routine Bipolar 1 disorder, depressed, moderate (HCC) 1 Occurrences starting 10/14/2021 until 10/14/2022 [facility] Comment on above: 1 Occurrences starti ng 10/14/2021 until 10/14/2022 Patient Education High Blood Pre ssure (DC) Urinary Tract Infection, Adult (DC) Acute Kidney Injury (DC) Cefuroxime Hydralazine [facility] Work Phone: Patient referral [facility] Work Phone: Immunizations Immunization Date Immunization Notes Care Provider [facility] 01-05-2022 influenza, injectabl e, quadrivalent, preservative free DO [facility] Work Phone: [facility] 01-05-2022 influenza virus vaccine, unspecified formulation Scott Mcallister MD Work Phone: [facility] 03-29-2021 COVID-19 mRNA, Comirnaty (Pfizer) DO [facility] Work Phone: [facility] 07-13-2020 COVID-19 mRNA, Comirnaty (Pfizer) DO [facility] Work Phone: [facility] 06-21-2020 COVID-19 mRNA, Comirnaty (Pfizer) DO [facility] Work Phone: [facility] Payers Date Payer Category Payer Private Health Insurance [employer] [id number] 2022 Self-pay 2014 Unknown [id number] 2014 Unknown MMO [employer] S UPERMED PPO [id number] 2014-Present [phone] [address] [place] [address] [id number]. [id number] 1962 Unknown [id number] 2.16.840.1.754612.3.579.2. 593 1962 Unknown [id number] 2.16.840.1.521608.3.579.2. 593 1962 Unknown [id number] 2.16.840.1.088030.3.579.2. 593 1962 Unknown [id number] 2.16.840.1.890131.3.579.2. 593 1962 Unknown [id number] 2.16.840.1.414983.3.579.2. 903 1962 Unknown [id number] 2.16.840.1.345034.3.579.2. 903 1962 Unknown [id number] 2.16.840.1.274613.3.579.2. 903 1962 Unknown [id number] 2.16.840.1.993879.3.579.2. 903 1962 Unknown [id number] 2.16.840.1.182742.3.579.2. 903 1962 Unknown [id number] 2.16.840.1.053516.3.579.2. 903 1962 Unknown [id number] 2.16.840.1.447604.3.579.2. 903 1962 Unknown [id number] 2.16.840.1.720071.3.579.2. 174 1962 Unknown [id number] 2.16.840.1.529526.3.579.2. 174 1962 Unknown [id number] 2.16.840.1.441701.3.579.2. 174 1962 Unknown [id number] 2.16.840.1.703489.3.579.2. 174 1962 Unknown [id number] 2.16.840.1.258574.3.579.2. 727 1962 Unknown [id number] 2.16.840.1.255019.3.579.2. 727 1962 Unknown [id number] 2.16.840.1.239953.3.579.2. 727 1962 Unknown [id number] 2.16.840.1.409218.3.579.2. 727 1962 Unknown [id number] 2.16.840.1.040713.3.579.2. 727 1962 Unknown [id number] 2.16.840.1.872323.3.579.2. 1259 1962 Unknown [id number] 2.16.840.1.051587.3.579.2. 1259 1962 Unknown [id number] 2.16.840.1.056668.3.579.2. 1259 1962 Unknown [id number] 2.16.840.1.385739.3.579.2. 1259 1962 Unknown [id number] 2.16.840.1.697727.3.579.2. 1259 1959 Unknown [id number] Unknown [id number] 2.16.840.1.643494.3.579.2. 531 Social History Date Type Detail Facility Start: 04-06-2020 End: 01-30-2024 Tobacco smoking status NHIS Former smoker [facility] Start: 04-06-2020 End: 01-30-2024 Tobacco use and exposure Never used [facility] Start: 04-06-2020 End: 07-08-2024 Alcohol intake Ex-drinker (finding) [facility] Start: 1960 Sex Assigned At Not on file [facility] Exposure to SARS-CoV-2 (event) Unable to assess [facility] Start: 07-09-2021 End: 05-24-2022 Exposure to SARS-CoV-2 (event) Not sure [facility] Start: 01-03-2022 Tobacco smoking status NHIS Never smoked tobacco (finding) [facility] Start: 1960 Sex Assigned At Female F [facility] End: 04-02-2000 History of tobacco use Current smoker [facility] Start: 05-30-2022 End: 02-12-2024 History of Social function [facility] Start: 05-30-2022 End: 02-12-2024 Tobacco use panel [facility] Tobacco smoking status Never [facility] End: 04-02-2000 History of tobacco use Cigarette Smoker [facility] Tobacco smoking status NHIS Tobacco smoking consumption unknown [facility] Goals Date Patient Goal Desired Activity /State Functional Status Date Assessment Result Facility 11-27-2023 Functional Status N/A [facility] 08-21-2023 Functional Status N/A [facility] 01-05-2022 Functional status Patient at Baseline [facility] Work Phone: Mental Status Date Assessment Result Facility 01-05-2022 Cognitive function Cognitive Sta tus Patient at Baseline [facility] Work Phone: Clinical Notes 07-27-2020 to 07-08-2024 Gilmer Rivera, DPM - 07/08/2024 2:00 PM Miguel Pena, CCC-A - 02/12/2024 11:00 AM Duke De La Cruz MD - 02/12/2024 9:00 AM Duke De La Cruz MD - 02/05/2024 10:30 AM EST Note Date & Type Note Facility 07-08-2024 History of Present illness Narrative Patient: Kathy Porter : 1960 PCP: Peter Arnett MD SUBJECTIVE This is a 63 y.o. female that presents today for a chief complaint of falling 2 months ago with passing out states she may have had a fracture at that time and that she still has pain to her midfoot region. She had intense bruising and showed picture today with bruising noted. States she has still has painful ambulation rates it up to a 3 to 7/10 at times and takes anti-inflammatories p.r.n.. Allergies: Allergies Allergen Reactions Sulfa Antibiotics Rash and Swelling Past Medical History: Past Medical History: Diagnosis Date Ear problems Medications: Current Outpatient Medications: levothyroxine (Synthroid, Levoxyl) 75 MCG tablet, TAKE 1 TABLET BY MOUTH EVERY DAY IN THE MORNING ON AN EMPTY STOMACH FOR 30 DAYS, Disp: , Rfl: metoprolol tartrate (Lopressor) 100 MG tablet, , Disp: , Rfl: trospium (Sanctura XR) 60 MG 24 hour capsule, , Disp: , Rfl: amLODIPine (Norvasc) 10 MG tablet, Take 10 mg by mouth Daily, Disp: , Rfl: buPROPion XL (Forfivo XL) 450 MG 24 hr tablet, Take 450 mg by mouth Daily Do not crush, chew, or split., Disp: , Rfl: cholecalciferol (Vitamin D-3) 50 MCG (2000 UT) tablet, Take 2,000 Units by mouth Daily, Disp: , Rfl: clonazePAM (KlonoPIN) 0.5 MG tablet, Take 0.5 mg by mouth Daily, Disp: , Rfl: doxazosin (Cardura) 2 MG tablet, Take 2 mg by mouth in the morning and 2 mg before bedtime., Disp: , Rfl: hydrALAZINE (Apresoline) 25 MG tablet, Take 25 mg by mouth in the morning and 25 mg in the evening and 25 mg before bedtime., Disp: , Rfl: metoprolol succinate XL (Toprol-XL) 100 MG 24 hr tablet, Take 100 mg by mouth Daily Do not crush or chew., Disp: , Rfl: pantoprazole (ProtoNix) 40 MG EC tablet, Take 40 mg by mouth in the morning. Take before meals. Do not crush, chew, or split.., Disp: , Rfl: simvastatin (Zocor) 10 MG tablet, Take 10 mg by mouth at bedtime, Disp: , Rfl: traZODone (Desyrel) 100 MG tablet, Take 100 mg by mouth at bedtime, Disp: , Rfl: trospium (Sanctura) 20 MG tablet, Take 60 mg by mouth Daily, Disp: , Rfl: Social History: Social History Socioeconomic History Marital status: Spouse name: Not on file Number of children: Not on file Years of education: Not on file Highest education level: Not on file Occupational History Not on file Tobacco Use Smoking status: Former Current packs/day: 0.00 Types: Cigarettes Quit date: 2000 Years since quittin.2 Smokeless tobacco: Never Substance and Sexual Activity Alcohol use: Not Currently Drug use: Not Currently Sexual activity: Defer Other Topics Concern Not on file Social History Narrative Not on file Social Drivers of Health Financial Resource Strain: Not on file Food Insecurity: Not on file Transportation Needs: Not on file Physical Activity: Not on file Stress: Not on file Social Connections: Not on file Intimate Partner Violence: Not on file Housing Stability: Not on file ROS: Gastrointestinal: denies abdominal pain, ulcers, or changes in appetite or bowel habits Musculoskeletal: Positive generalized arthritis to joints and denies loss of strength. Cardiovascular: denies CP, palpitations, irregular rhythms OBJECTIVE LE EXAM: DERM: Positive hair growth to b/l feet with good skin turgor noted. Negative openings in skin. Slight edema to left midfoot region dorsally VASC: Palpable pedal pulsed b/l with warm to cool tibia to toes b/l NEURO: Gross sensation intact digits 1-10 and b/l feet ORTHO: +5/5 DF/PF/IN/EV right, +5/5 DF/PF/IN/EV left. 20 degrees inversion and 10 degrees eversion STJ b/l. Ankle ROM less than 10 degrees b/l. Positive pain on palpation to Lisfranc joint ligament and joint region of the left foot XRAY: XR foot 3+ views left Imaging Result: Appears to be slight step-off and possible johnathan fracture to the 2nd metatarsal significant for possible Lisfranc injury with negative other fractures identified and degenerative changes noted to midfoot US: ASSESSMENT 1. Plantar fasciitis 2. Contusion of left foot, initial encounter 3. Lisfranc dislocation, left, initial encounter PLAN Patient to continue with oral anti - inflammatories as needed for pain and recommended OTC medications such as tylenol or Ibuprofen Will order CT scan at [facility] for left foot rule out Lisfranc injury Pt dispensed pneumatic CAM walker (L4361) today to maintain 90 degree foot to ankle position. Pt informed to only remove walker when at rest or bathing. ABN signed and in chart for device if warranted. The boot was assembled and adjusted liner and straps and pneumatically inflated for proper custom fitting by Gilmer Rivera DPM and staff. A verbal order was given for dispensing of device. The patient is ambulatory and may benefit functionally from this device. It may be used for the following conditions as noted per medical diagnosis. Discussed condition in detail as far as conservative care as 2-month-old at this time will try walking boot and if no improvement may consider possible surgical intervention in the future Gilmer Rivera DPM documented in this encounter [facility] 06-17-2024 Note General Surgery Offi ce/Clinic Note [...] capsule, 50 mcg= (more content not included)... [facility] Comment on above: Result Comment: Elec [...] Type A tympanogram documented in this encounter [facility] 02-12-2024 History of Present illness [...] Date Noted Bipolar 1 disorder, depressed, mild ([facility]) 04/06/2020 VICKIE (generalized anxiety disorder) ([facility]) 04/06/2020 Insomnia due to mental disorder 04/06/2020 MDD (major depressive disorder) ([facility]) 01/18/2016 Severe episode of recurrent major depressive disorder, without psychotic features ([facility]) ([facility]) 01/18/2016 Resolved Ambulatory Problems Diagnosis [...] Recommend annual audio documented in this encounter [facility] 02-05-2024 History of Present illness [...] Date Noted Bipolar 1 disorder, depressed, mild ([facility]) 04/06/2020 VICKIE (generalized anxiety disorder) ([facility]) 04/06/2020 Insomnia due to mental disorder 04/06/2020 MDD (major depressive disorder) ([facility]) 01/18/2016 Severe episode of recurrent major depressive disorder, without psychotic features (HCC) ([facility]) 01/18/2016 Resolved Ambulatory Problems Diagnosis [...] week to remove documented in this encounter [facility] 11-27-2023 Hospital Discharge instructions Patient [...] (electrical nerve stimulation). ?For women, using a certified medical coder to prevent urine leaks. This is a [...] right after experiencing incontinence. General instructions Take ooyl-llk-qirvdut and prescription medicines only as told by [...] important. Where to find more information National [employer] of Diabetes and Digestive and Kidney Diseases: www.niddk.nih.gov [employer]: www.urologyhealth.org Contact a health care [...] provider. Document Revised: 10/22/2020 Document Reviewed: 10/22/2020 [employer] Patient Education 2022 [employer]. 11/27/2023 15:20:11 Overactive Bladder, Adult Overactive Bladder, [...] your health care provider. General instructions Take kkkn-qxu-oizmhra and prescription medicines only as told by [...] provider. Document Revised: 12/06/2020 Document Reviewed: 12/06/2020 [employer] Patient Education 2022 [employer]. Follow Up Care 08/21/2023 10:37:58 With:DEVEN GUTIERREZ, OXANA Schwartz, URL Address: [address] [facility] [address] When: Unknown Comments:1 year f/up [facility] 11-27-2023 Note Patient Education Obstetrics and [...] health care provider. General instructions ? Take nqaa-bnp-tjgdrbq and prescription medicines only as told by [...] health care (more content not included)... [facility] 08-21-2023 Note Chief Complaint New Pt. [...] metformin. 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 1. [...] [facility] -Increase clear fluid intake -Avoid bladder irritants [...] When Contact Information OXANA CARVALHO PA-C, URL [address] [place] [address] [phone] Additional Instructions: 3 mos (new med) Patient Education Urinary Incontinence Documentation recorded by the scribe Evy Gunderson accurately reflects the (more content not included)... [facility] Comment on above: Result Comment: Elec tronically Signed By: OXANA CARVALHO PA-C\.br\Date and Time Signed: 08/21/23 16:23 EDT\.br\Electronically Co-Signed By: Gunderson, Evy B\.br\Date and Time Co-Signed: 08/21/23 10:37 EDT 08-21-2023 [...] (electrical nerve stimulation). ?For women, using a certified medical coder to prevent urine leaks. This is a [...] right after experiencing incontinence. General instructions Take mwbm-mgk-seyamod and prescription medicines only as told by [...] important. Where to find more information National [employer] of Diabetes and Digestive and Kidney Diseases: www.niddk.nih.gov [employer]: www.urologyhealth.org Contact a health care [...] provider. Document Revised: 10/22/2020 Document Reviewed: 10/22/2020 [employer] Patient Education 2022 [employer]. Follow Up Care 05/07/2023 11:41:01 With:DEVEN GUTIERREZ, OXANA Schwartz, URL Address: [address] [place] [address] [phone] When: Unknown Comments:3 mos (new med) [facility] 05-30-2022 History of Present illness Narrative BEHAVIORAL [...] Continue with same provider ( Rocky @ [facility] in [place]) Follow up as scheduled or return early if needed. School or community referral: None Treatment Goals and Objectives discussed. Other Referrals/Consults/Psychological Testing: None Scott Mcallister documented in this encounter [facility] 03-13-2022 History of Present illness Narrative [...] Continue with same provider ( Rocky @ [facility] in [place]) Follow up as scheduled or return early if needed. School or community referral: None Treatment Goals and Objectives discussed. Other Referrals/Consults/Psychological Testing: None Scott Mcallister documented in this encounter [facility] 01-05-2022 Discharge summary Note Date/Time January 05, 2022 12:08pm [facility] [address] [place] [address] Discharge Summary Signed Patient: Kathy Porter MR#: [id number] : 1960 Acct:[id number] Age/Sex: 61 / F Adm Date: 2 Loc: 3T Room: [address] [place] [address]: Henry Burnett MD Copies to: [...] % (Auto) 50.3, Lymph % (Auto) 33.1, [place] % (Auto) 12.5, Eos % (Auto) 3.5, Baso % (Auto) 0.6, Neut # (Auto) 2.6, Lymph # (Auto) 1.7, [place] # (Auto) 0.7, Eos # (Auto) 0.2, [...] <Electronically signed by Henry Burnett MD> 01/05/22 3207 [facility] Work Phone: 1(479) 690-188010-05-2022 Progress note Author Henry Burnett [facility] January 04, 2022 4:20pm Note Date/Time January 04, 2022 4: 20pm [facility] [address] [place] [address] Hospitalist Progress Note Signed Patient: Kathy Porter MR#: [id number] : 1960 Acct:[id number] Age/Sex: 61 / F Adm Date: 2 Loc: 3T Room: [address] [place] [address] Type: ADM INOo Attending Dr: Henry Burnett [...] Flu Vac Quad (36month+)Pf 0.5 Ml Syringe [id number] IM 01/04/22 18:34 .ONCE ONE Irbesartan 300 [...] <Electronically signed by Henry Burnett MD> 01/04/22 2695 [facility] Work Phone: 1(893) 932-360610-05-2022 Consult note Author Graham Helm [facility] January 04, 2022 2:08pm Note Date/Time January 04, 2022 2: 04pm [facility] [address] [place] [address] Psychiatry Consult Note Signed Patient: Kathy Porter MR#: [id number] : 1960 Acct:[id number] Age/Sex: 61 / F Adm Date: 2 Loc: Room: [address] [place] [address] Type : ADM INOo Attending Dr: Henry [...] stated that she sees a psychiatrist in [place]. She reported that he is helping her [...] Appearance Clear Urine pH 5.5 Ur Specific [place] 1.012 Urine Protein Negative Urine Glucose (UA) [...] Color Urine Appearance Urine pH Ur Specific [place] Urine Protein Urine Glucose (UA) Urine Ketones Urine Occult Blood Urine Nitrite Ur Leukocyte Esterase Urine RBC Urine WBC Valproic Acid 59.0 01/04/22 10:13 RBC Hgb Hct MCV MCH MCHC RDW Plt Count MPV Sodium Potassium Chloride Carbon Dioxide Anion Gap BUN Creatinine Calcium Total Bilirubin AST ALT Alkaline Phosphatase Total Protein Albumin Urine Color Urine Appearance Urine pH Ur Specific [place] Urine Protein Urine Glucose (UA) Urine Ketones [...] peripherally Documented By: Graham Helm MD 01/04/22 1403 Signed By: <Electronically signed by Graham Helm MD> 01/04/22 8829 [facility] Work Phone: 1([phone]) 311-675810-04-2022 History and physical note Author Henry Burnett [facility] January 03, 2022 6:58pm Note Date/Time January 03, 2022 4: 55pm [facility] [address] [place] [address] Hospitalist H&P Signed Patient: Kathy Porter MR#: [id number] : 1960 Acct:[id number] Age/Sex: 61 / F Adm Date: 2 Loc: Room: [address] [place] [address] Type: ADM INOo Attending Dr: Henry Burnett [...] 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 Decision was to admit the patient [...] % (Auto) 22.3 % (.) 01/03/22 14:35 [place] % (Auto) 8.9 % (.) 01/03/22 14:35 Eos % (Auto) 1.4 % (.) 01/03/22 14:35 Baso % (Auto) 0.6 % (.) 01/03/22 14:35 Neut # (Auto) 4.3 x10E3/uL (1.8-7.7) 01/03/22 14:35 Lymph # (Auto) 1.4 x10E3/uL (1.00-4.8) 01/03/22 14:35 [place] # (Auto) 0.6 x10E3/uL (0.0-0.8) 01/03/22 14:35 [...] pH 5.5 (5.0-9.0) 01/03/22 14:20 Ur Specific [place] 1.012 (1.001-1.030) 01/03/22 14:20 Urine Protein Negative [...] <Electronically signed by Henry Burnett MD> 01/03/22 8578 [facility] Work Phone: 1(443) 771-125107-15-2022 History of Present illness Narrative* Scott Mcallister [...] Continue with same provider ( Rocky @ [facility] in [place]) Follow up as scheduled or return early if needed. School or community referral: None Treatment Goals and Objectives discussed. Other Referrals/Consults/Psychological Testing: None Scott Mcallister documented in this [id number] History of Present illness Narrative* Scott Mcallister [...] Psychotherapy: Continue with same provider ( Rocky [place] in [place]) Follow up as scheduled or return early if needed. School or community referral: None Treatment Goals and Objectives discussed. Other Referrals/Consults/Psychological Testing: None Scott Mcallister documented in this [id number] Miscellaneous Notes* Telephone Encounter - Sarah Leigh MA - 05/16/2021 11:04 AM EST Pt is completely out and wants a 30 day supply sent to the local pharmacy. Another refill encounterto follow with a 90 day supply to go to [facility]. documented in this [id number] History of Present illness Narrative* Scott Mcallister [...] the patient Scott Mcallister documented in this [id number] History of Present illness Narrative* Scott Mcallister MD - 07/27/2020 2:43 PM EDT Telephone Visit Via Phone Call [facility] [phone] Telephone Visit [facility] 07/27/2020 Scott Mcallister MD Provider Location: [facility] Patient Location [employer] Production Machine Operator: None Patient Location: Patient's Home Patient: Kathy [...] there are inherent diagnostic limitations compared to qjez-jf-qcbc evaluations. We elected toproceed with the telephone [...] Date:11/27/2023 03:00:00 PM Scheduled Provider:OXANA CARVALHO PA-C Location:[facility] Appointment Type:URO Office Visit [facility] evaluation note* Diagnosis Bipolar 1 disorder, [...] Altered mental status acute Coarse tremors acute [facility] Work Phone: Evaluation note* Diagnosis Onset Date Resolution Status Acute encephalopathy acute NAEEM (acute kidney injury) ac jessica Altered mental status acute Coarse tremors acute Hypertensive urgency acute UTI (urinary tract infection) acute [facility] Work Phone: Evaluation note* Diagnosis [...] initial encounter- Primary documented in this encounter [facility] HealthcareEvaluation [facility]* Diagnosis Sudden right hearing loss- Primary Unspecified sudden hearing loss Foreign body of right ear, initial encounter documented in this encounter [facility] HealthcareEvaluation note* Diagnosis Sensorineural hearing loss (SNHL) of both ears- Primary Ear pressure, right documented in this encounter [facility] HealthcareEvaluation note* Diagnosis Lisfranc dislocation, left, initial encounter- Primary Plantar fasciitis Plantar fascial fibromatosis Contusion of left foot, initial encounter documented in this encounter [facility] HealthcareHospital course Narrative No data available for this section [facility] Hospital Discharge instructions Additional Instructions -Take Ceftin antibiotics treatment for UTI for 5 more days -Take new blood pressure medicine Hydralazine 25 mg three times a day. Hold if your BP <100/60 -Follow up with your primary doctor for blood pressure control and adjustment in medications if needed -[facility] Progress note No data available for this section [facility] History of Present Illness * Scott Mcallister MD - 04/09/2020 2:42 PM EST Telephone Visit Via Phone Call [facility] [address] [facility] [phone] Telephone Visit [facility] 04/06/2020 Scott Mcallister MD Provider Location: [place] 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 We elected toproceed with the telephone [...] FoundDocuments on File Type Date Recorded Patient Poultry Raiser Expl anation Advance Directives and Living Will [...] Comments Ear Problem 1 week check ears Reason Comments Foot Pain Lt ft pain Care Teams (unrecognized sec tion and content) Senior Finance Manager Relationship Specialty Start Date End Date Peter Arnett MD [address] [place] [address] PCP - General Family Medicine 04/05/20 Senior Finance Manager Relationship Specialty Start Date End Date Peter Arnett MD [address] [place] [address] PCP - General Family Medicine 04/05/20 Senior Finance Manager Relationship Specialty Start Date End Date Peter Arnett MD [address] [place] [address] PCP - General Family Medicine 04/05/20 Senior Finance Manager Relationship Specialty Start Date End Date Peter Arnett MD [address] [place] [address] PCP - General Family Medicine 04/05/20 Senior Finance Manager Relationship Specialty Start Date End Date Peter Arnett MD [address] [place] [address] PCP - General Family Medicine 04/05/20 Team Status: Active Member Role Status Dates Justin Francisco , Emergency Provider Active Peter Arnett MD Primary Care Provider Active Henry Burnett MD Admit Provider, Attending Provi nimisha Active Team Status: Active Member Role Status Dates Peter Arnett MD Primary Care Provider Active Team Status: Inactive Member Role Status Dates Justin Francisco , Emergency Provider Active Peter Arnett MD Primary Care Provider Active Henry Burnett MD Admit Provider, Attending Provi nimisha Active Graham Helm MD Other Provider Active Senior Finance Manager Relationship Specialty Start Date End Date Peter Arnett MD [address] [place] [phone] PCP - General Family Medicine 04/05/20 Senior Finance Manager Relationship Specialty Start Date End Date Peter Arnett MD [address] [place] [phone] PCP - General Family Medicine 04/05/20 Senior Finance Manager Relationship Specialty Start Date End Date Peter Arnett MD [address] [place] [phone] PCP - General Family Medicine 04/05/20 Senior Finance Manager Relationship Specialty Start Date End Date Peter Arnett MD [address] [place] [address] PCP - General Family Medicine 04/05/20 Senior Finance Manager Relationship Specialty Start Date End Date Peter Arnett MD [address] [place] [address] PCP - General Family Medicine 04/05/20 Senior Finance Manager Relationship Specialty Start Date End Date Peter Arnett MD [address] [place] [phone] PCP - General Family Medicine 02/05/24 Valerie Moss MD [address] [place] [address] Referring Physician Family Medicine 01/29/24 Senior Finance Manager Relationship Specialty Start Date End Date Peter Arnett MD [address] [place], [place] [phone] PCP - General Family Medicine 02/05/24 Valerie Moss MD [address] [place], [place] [address] Referring Physician Family Medicine 01/29/24 Senior Finance Manager Relationship Specialty Start Date End Date Peter Arnett MD [address] [place], [place] [phone] PCP - General Family Medicine 02/05/24 Valerie Moss MD [address] [place], [place] [address] Referring Physician Family Medicine 01/29/24 Senior Finance Manager Relationship Specialty Start Date End Date Peter Arnett MD [address] [place], [place] [phone] PCP - General Family Medicine 02/05/24 Valerie Moss MD [address] [place], [place] [address] Referring Physician Family Medicine 01/29/24 Senior Finance Manager Relationship Specialty Start Date End Date Peter Arnett MD [address] [place] [address] PCP - General Family Medicine 09/26/23 Senior Finance Manager Relationship Specialty [place] [address] [place] [phone] PCP - General Family Medicine 02/05/24 Valerie Moss MD [facility] [place] [phone] Referring Physician Family Medicine 01/29/24 Goals (unrecognized section and content) Goals may be documented in a n alternate section No data available for this section No data available for this section INFORMATION SOURCE (unrecogn ized section and content) DATE CREATED AUTHOR 01/23/2022 [facility] DATE CREATED AUTHOR AUTHOR'S ORGANIZ ATION 05/06/2022 [facility] DATE CREATED AUTHOR AUTHOR'S ORGANIZ ATION 06/01/2022 [facility] DATE CREATED AUTHOR AUTHOR'S ORGANIZ ATION 11/06/2023 [facility] DATE CREATED AUTHOR AUTHOR'S ORGANIZ ATION 07/09/2024 [facility] DATE CREATED AUTHOR AUTHOR'S ORGANIZ ATION 07/10/2024 [facility] FOR RECORDS PERTAINING TO PATIENTS WHO ARE [...] BE BASED ON THE PRIMARY CLINICAL RECORDS. [employer] provides no warranty or guarantee of the accuracy or completeness of information in this document.
== END 2024-07-11 09:30 | disposition home or self-care (01) ==
LOC: CT 09:29
PROVIDERS: PCP Family Medicine
DX: S93.325D Dislocation of tarsometatarsal joint of left foot, subsequent encounter (principal)
CPT/HCPCS: 73700

== ENCOUNTER 2024-11-11 11:23 | Outpatient (OUT) | payer OTHER, SELFPAY ==
--- OUTSIDE RECORDS SUMMARY | 2023-06-14 10:30 | XMS_ITS ---
Author Organization [facility] Address [address] [place] [address] Care Team Providers Care Manager Credit Name Role Phone ZakМария arnold Primary Care Provider REASON FOR VISIT bh therapy Encounters Encounter Location Date Provider Diagnosis [facility] [address] [place] [address] 06/14/2023 Мария Crespo Plan Of Treatment No Information Progress Notes * KATHY PORTER SDOB:[birth year] (63 yo F)Acc No.[id number]:06/14/2023 BH F/U - Patient Patient: KATHY ALMEIDA Provider: Samantha Crespo :1960 A ge:62 Y S ex:Female Date:06/14/2023 Address:[address] [place], [place] [id number] Subjective: * Chief Complaints: * 1 . Bh therapy. Objective: Therapeutic Interventions: Assessment: Plan: * Images: Care Plan Details* * Electronic signature of Rocky Crespo on 11/11/2024 at 10:22 AM EDT Sign off status: Pending * Provider: Samantha Crespo Date: 0 06/14/2023 Generated for Radha serna/Nitesh/eTransmitting on: 0 11/11/2024 10:22 AM EDT
--- OUTSIDE RECORDS SUMMARY | 2024-02-11 05:00 | XMS_ITS ---
Author Organization [facility] Address [address] [place] [address] Care Team Providers Care Automation Control Integrator Name Role Phone Peter Arnett Primary Care Provider Kev Johnson [facility] [phone] REASON FOR VISIT RIGHT TIBIAL PLATEAU FX Encounters Encounter Location Date Provider Diagnosis [facility] Office [address] [facility] [place] [address] 02/11/2024 Kev Steen Plan Of Treatment No Information Progress Notes * KATHY PORTER SDOB:[birth year] (63 yo F)Acc No.[id number]:02/11/2024 Patient: KATHY ALMEIDA Provider: Fam Steen MD :1960 A ge:63 Y S ex:Female Date:02/11/2024 Address:[address] [place], [place] [id number] Pcp:Peter Arnett Subjective: * Chief Complaints: * 1 . RIGHT TIBIAL PLATEAU FX. * Medical History: Objective: * Vitals: Assessment: Plan: * Treatment: Forms: * Images: * Electronic signature of Manav Steen MD on 11/11/2024 at 11:27 AM EDT Sign off status: Pending * Provider: Fam Steen MD Date: 04/12/2023 Generated for Radha ng/Fasymone/eTransmitting on: 0 11/11/2024 11:27 AM EDT
--- OUTSIDE RECORDS SUMMARY | 2024-07-11 06:28 | XMS_ITS ---
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 Phone José Antonio Arnett Primary Care Provider REASON FOR VISIT rf meloxicam Medications Medication SIG (Take, Route, Fr equency, Duration) Notes Start Date End Date Status Meloxicam 15 MG 1 tablet Orally Once a day for 90 days 06/18/2024 Active Encounters Encounter Location Date Provider Diagnosis [facility] [address] [place] [address] 07/11/2024 José Antonio Arnett Foot pain M79.67 3 Assessments Encounter Date Diagnosis (ICD Code) Assessment Notes Treatment Notes Treatment Clinical Notes Section Notes 07/11/2024 Foot pain (ICD-10 - M79.673) Plan Of Treatment Medication Medication Name Sig Start Date Stop Date Notes Meloxicam 15 MG 1 tablet Orally Once a day for 90 days Progress Notes * [place], Kyleigh SDOB:[birth year] (63 yo F)Acc No.[id number]:07/11/2024 Patient: Kyleigh ALMEIDA :1960 A ge:63 Y S ex:Female Address:[address] [place] [id number] * Refills Refill Meloxicam Tablet, 15 MG, Orally, 90 Tablet, 1 tablet, Once a day, 90 days, Refills=3 * true * Date: Generated for Arturosae serna/Faxing/eTransmitting on: 0 11/11/2024 11:28 AM EDT
--- OUTSIDE RECORDS SUMMARY | 2024-08-18 09:45 | XMS_ITS ---
Author Organization [facility] in [place] Address [address] [place] [address] Care Team Providers Care Occupational Safety And Health Manager Name Role Phone José Antonio Arnett Primary Care Provider Valerie Krause [phone] Allergies Allergen (clinical drug ingredient) Drug/Non Drug [...] Status W/U Status Risk Notes Problem Sinusitis (28381695) Sinusitis (J32.9) Active confirmed Vital Signs Weight 198.6 lbs 08/18/2024 Height 62 in 08/18/2024 Blood pressure systolic 142 mm Hg 08/19/19 25 Blood pressure diastolic 82 mm Hg 025 BMI 36.32 kg/m2 08/18/2024 Encounters Encounter Location Date Provider Diagnosis [facility] [address] [place] [address] 08/18/2024 Valerie Krause Sinusitis J32.9 Assessments Encounter [...] * CHARLOTTEKyleigh SDOB:[birth year] (63 yo F)Acc No.[id number]:08/18/2024 Progress Note Patient: Kyleigh ALMEIDA Provider: Marci Krause ([facility] CORK GRINDER :1960 A ge:63 Y S ex:Female Date:08/18/2024 Address:[address] [place] [address], [id number] Pcp:José Antonio Arnett Check In:01:45 PM ESTCheck [...] * Electronically signed by Jodee Krause NP, EMAIL MARKETING COORDINATOR.CORK GRINDER.[id number] on 08/20/2024 at 10:17 AM EDT Sign off status: Completed Visit Status: C HK (Check Out) true * Provider: Marci Krause ([facility] CORK GRINDER Date: 08/18/2024 Generated for Radha serna/Nitesh/Jayitting on: 0 11/11/2024 11:27 AM EDT History and Physical Notes * HPI [...]
--- OUTSIDE RECORDS SUMMARY | 2024-08-18 10:05 | XMS_ITS ---
Author Organization [facility] [place] Address [address] [place] [address] Care Team Providers Care Environmental Auditor Name Role Phone José Antonio Arnett Primary Care Provider [phone] Valerie Olivier [phone] REASON FOR VISIT zpak directions Encounters Encounter Location Date Provider Diagnosis [facility] [address] [place] [address] 08/18/2024 Valerie Krause Plan Of Treatment No Information Progress Notes * Kyleigh PORTER SDOB:[birth year] (63 yo F)Acc No.[id number]:08/18/2024 Patient: Kyleigh ALMEIDA :1960 A ge:63 Y S ex:Female Address:[address] [place] [phone] * true * Date: Generated for Radha serna/Nitesh/eTransmitting on: 0 11/11/2024 11:28 AM EDT
--- OUTSIDE RECORDS SUMMARY | 2024-11-11 10:20 | XMS_ITS | Encounter Summary ---
Author Organization [facility] Address [address] [place] [address] Care Team Providers Care Olive Brine Tester Name Role Phone Valerie Krause MD Unavailable [phone] Peter Arnett MD Primary Care Provider [phone] Reason for Visit * Reason Comments Casting For Braces Or Orthotics Scan for orthotics Encounter Details Date Type Department Care Team (Late st Contact Info) Description 11/11/2024 10:20 AM EDT Office Visit [facility] [address] [place] [address] Gilmer Rivera DPM [address] [address] DJD (degenerative joint disease), ankle and foot, left (Primary Dx); Contracture of right ankle Social History Tobacco Use Types Packs/Day Years Used Date Smoking Tobacco: Former Cigarettes Q uit: 2000 Smokeless Tobacco: Never Tobacco Cessation:Counseling Given: Yes Alcohol Use Standard Drinks/Week Comments Not Currently 0 (1 standard drink = 0.6 oz pur e alcohol) Comments Unknown Sex and Gender Information Value Date Recorded Sex Assigned at Not on file Legal Sex Female 6:37 PM EDT Gender Identity Not on file Sexual Orientation Not on file documented as of this encounter Last Filed Vital Signs Vital Sign Reading Time Taken Comments Blood Pressure - - Pulse - - Temperature - - Respiratory Rate 18 11/11/2024 10:35 AM EDT Oxygen Saturation - - Inhaled Oxygen Concentration - - Weight 89.8 kg (198 lb) 11/11/2024 10:35 AM EDT Height 157.5 cm (5' 2 ) 11/11/2024 10:35 AM EDT Body Mass Index 36.21 11/11/2024 10:35 AM EDT documented in this encounter Progress Notes * Gilmercorky Rivera, DPM - 11/11/2024 10:20 AM EDT Patient: Kyleigh Adame : 1960 PCP: Peter Arnett MD SUBJECTIVE This is a 63 y.o. female that presents today for a follow up of left EDL tendinitis and left DJD tofoot has been nsaids with minimal improvement. Patient has old Lisfranc injury left in DJD to left foot and rates pain a Patient is currently covered by insurance for custom orthotics at this time. She presents today forcasting of devices. Allergies: Allergies Allergen Reactions Sulfa Antibiotics Rash and Swelling Past Medical History: Past Medical History: Diagnosis Date Ear problems Medications: Current Outpatient Medications: amLODIPine (Norvasc) 10 MG tablet, Take 10 [...] 25 mg before bedtime., Disp: , Rfl: levothyroxine (Synthroid, Levoxyl) 75 MCG tablet, TAKE 1 TABLET BY MOUTH EVERY DAY IN THE MORNING ON AN EMPTY STOMACH FOR 30 DAYS, Disp: , Rfl: metoprolol succinate XL (Toprol-XL) 100 MG 24 hr tablet, Take 100 mg by mouth Daily Do not crush orchew., Disp: , Rfl: metoprolol tartrate (Lopressor) 100 MG tablet, , Disp: , Rfl: pantoprazole (ProtoNix) 40 MG EC tablet, Take 40 mg by mouth in the morning. Take before meals. Do not crush, chew, or split.., Disp: , Rfl: simvastatin (Zocor) 10 MG tablet, Take 10 mg by mouth at bedtime, Disp: , Rfl: traZODone (Desyrel) 100 MG tablet, Take 100 mg by mouth at bedtime, Disp: , Rfl: trospium (Sanctura XR) 60 MG 24 hour capsule, , Disp: , Rfl: trospium (Sanctura) 20 MG [...] Types: Cigarettes Quit date: 2000 Years since quittin.6 Smokeless tobacco: Never Substance and Sexual Activity [...] skin turgor noted. Negative openings in skin. positive edema to left midfoot region dorsally VASC: Palpable pedal pulsed b/l with warm to cool tibia to toes b/l NEURO: Gross sensation intact digits 1-10 and b/l feet ORTHO: +5/5 DF/PF/IN/EV right, +5/5 DF/PF/IN/EV left. 20 degrees inversion and 10 degrees eversion STJ b/l. Ankle ROM less than 10 degrees b/l. diminished pain on palpation to Lisfranc joint ligament and joint region of the left foot negative pain on palpation left 3rd and 4th metatarsal base regions with diminished POPto the left EDL tendon complex ASSESSMENT 1. DJD (degenerative joint disease), ankle and foot, left 2. Contracture of right ankle PLAN Patient to continue with oral anti - inflammatories as needed for pain and recommended OTC medications such as tylenol or Ibuprofen Pt presents today for casting of a removable foot inserts/orthotics today that was accomplished with scanning of feet and sent to orthotics lab.(L3020 right and L3020 left foot). Pt to have signed ABN for device if needed. It was explained to the patient of a break in period for the devices. The patient is ambulatory maybenefit functionally for this device. It may be used for the following conditions as noted per EMR. Gilmer Rivera DPM documented in this encounter Plan of Treatment Upcoming Encounters Date Type Department Care Team (Late st Contact Info) Description 12/12/2024 9:30 AM EDT Office Visit [facility] [address] [place] [phone] Gilmer Rivera DPM [address] [address] documented as of this encounter Visit Diagnoses Diagnosis DJD (degenerative joint disease), ankle and foot, left- Primary Contracture of right ankle documented in this encounter Care Teams Olive Brine Tester Relationship Specialty Start Date End Date Peter Arnett MD [address] [place] [phone] PCP - General Family Medicine 02/05/24 Valerie Krause MD [address] [place] [phone] Referring Physician Family Medicine 01/29/24 documented as of this encounter
--- OUTSIDE RECORDS SUMMARY | 2024-11-11 11:28 | XMS_ITS | Encounter Summary ---
Author Organization [facility] Address [address] [place] [address] Care Team Providers Care Presser Hand Name Role Phone Valerie Krause MD Unavailable [phone] Peter Arnett MD Primary Care Provider [phone] Encounter Details Date Type Department Care Team (Late st Contact Info) Description 11/11/2024 Bamboo flowsheet [facility] [address] [place] [phone] Gilmer Rivera DPM [address] [address] Social History Tobacco Use Types Packs/Day Years Used Date Smoking Tobacco: Former Cigarettes Q uit: 2001 Smokeless Tobacco: Never Alcohol Use Standard Drinks/Week Comments Not Currently 0 (1 standard drink = 0.6 oz pur e alcohol) Comments Unknown Sex and Gender Information Value Date Recorded Sex Assigned at Not on file Legal Sex Female 6:37 PM EDT Gender Identity Not on file Sexual Orientation Not on file documented as of this encounter Plan of Treatment Upcoming Encounters Date Type Department Care Team (Late st Contact Info) Description 12/12/2024 9:30 AM EDT [facility] [address] [place] [phone] Gilmer Rivera DPM [address] [address] documented as of this encounter Visit Diagnoses Not on filedocumented in this encounter Care Teams Presser Hand Relationship Specialty Start Date End Date Peter Arnett MD [address] [place] [phone] PCP - General Family Medicine 02/05/24 Valerie Krause MD [address] [place] [address] Referring Physician Family Medicine 01/29/24 documented as of this encounter
--- OUTSIDE RECORDS SUMMARY | 2024-11-11 11:28 | XMS_ITS | Patient Health Record ---
Author Organization [facility] Address [address] [place] [address] Care Team Providers Care Fabric Worker Fitter Name Role Phone MelquiadesJosé AntonioPeter Primary Care Provider Kev Johnson Unavailable [phone] Reason For Referral No Information Medications Medication SIG (Take, Route, Frequency, Duration) Notes Start Date End Date Status Vitamin B12 Active Protonix Active Norvasc Active Vitamin D3 Active KlonoPIN Active Wellbutrin SR Active Lopressor Active Cardura Active traZODone Active Zocor Active Social History Tobacco Use: Social History Observation Description Date Details (start date - stop date) Never Smoker NA - NA AUDIT-C (Standard) Question Answer Notes Did you have a drink containing alcohol in the p ast year? No Points 0 Interpretation Negative Tobacco Control (Standard) Question Answer Notes Tobacco use: Nonsmoker Problems Problem Type SNOMED Code ICD Code Onset Dates Problem Status W/U Status Risk Notes Problem 481274305 Closed fracture of right tibial plateau, initial encounter (S82.141A) Active confirmed Problem 972520256 Closed disp bicondylar fracture of right tibia with routine healing (S82.141D) Active confirmed Encounters Encounter Location Date Provider Diagnosis [facility] Office [address] [place] [address] [address] [place] [address] 12/10/2023 Kev Steen Closed disp bicondylar fracture of right tibia with routine healing S82.141D Assessments Encounter Date Diagnosis (ICD Code) Assessment Notes Treatment Notes Treatment Clinical Notes Section Notes 12/10/2023 Closed disp bicondylar fracture of right tibia with routine healing (ICD-10 - S82.141D) 12/10/2023 Other Patient is doing well. I have discussed formal physical therapy. Her preference is to do exercises on her own which have been reviewed. She will follow-up in 2 months to reassess her progress. No x-rays will be needed at that time. Import medication Plan Of Treatment Pending Test Test Name Order Date DME - Elevated Toilet Seat OTS [facility]- KNEE 2VIEW RIGHT [id number] 09/03/2023 [facility]- [facility] 2VIEW RIGHT [id number] 12/10/2023 DME - Wheeled Walker 08/20/2023 [facility]- KNEE 2VIEW RIGHT [id number] 12/10/2023 Insurance Providers Payer Name Payer Address Payer Phone Subscriber Number Group Number Insured Name Patient Relationship to Insured Coverage Start Date Coverage End Date [place] [address] [address] [place] [address] [id number] KATHY PORTER Self - patient is the insured
--- OUTSIDE RECORDS SUMMARY | 2024-11-11 11:28 | XMS_ITS | Encounter Summary ---
Author Organization [facility] Address [address] [place] [address] Care Team Providers Care Paint Striping Machine Operator Name Role Phone Valerie Krause MD Unavailable [phone] Peter Arnett MD Primary Care Provider [phone] Encounter Details Date Type Department Care Team (Late Contact Info) Description 08/13/2024 Orders Only [facility] [address] [place] [address] Hallie Leigh MA Lisfranc dislocation, left, initial encounter Social History Tobacco Use Types Packs/Day Years Used Date Smoking Tobacco: Former Cigarettes Q uit: 2000 Smokeless Tobacco: Never Alcohol Use Standard Drinks/Week [...] Description 12/12/2024 9:30 AM EDT Office Visit [facility] [address] [place] [phone] Gilmer Rivera DPM [address] [address] documented as of this encounter Procedures Procedure Name Priority Date/Time Associated Diagnosis Comments CT FOOT LEFT WO IV CONTRAST Routine 08/13/2024 9:30 AM EDT Lisfranc dislocation, left, initial encounter documented in this encounter Results * CT foot left wo IV contrast (08/13/2024 9:30 AM EDT) us Gilmer FUENTESM IMG CT PROCEDURES Final Res ult documented in this encounter Visit Diagnoses Diagnosis Lisfranc dislocation, left, initial encounter documented in this encounter Care Teams Paint Striping Machine Operator Relationship Specialty Start Date End Date Peter Arnett MD [facility] [place] [address] PCP - General Family Medicine 02/05/24 Valerie Krause MD [facility] [place] [address] Referring Physician Family Medicine 01/29/24 documented as of this encounter
--- OUTSIDE RECORDS SUMMARY | 2024-11-11 11:28 | XMS_ITS | Encounter Summary ---
Author Organization [facility] Address [address] [place] [address] Care Team Providers Care Cover Cutter Machine Name Role Phone Valerie Krause MD Unavailable [phone] Peter Arnett MD Primary Care Provider [phone] Encounter Details Date Type Department Care Team (Late Contact Info) Description 10/17/2024 Abstract [facility] [address] [facility] [address] [place] [phone] Gilmer Rivera DPM [address] [address] Social History Tobacco Use Types Packs/Day Years [...] 9:30 AM EDT Office Visit [facility] [address] [place] [phone] Gilmer Rivera DPM [address] [address] documented as of this encounter Visit Diagnoses Not on filedocumented in this encounter Care Teams Cover Cutter Machine Relationship Specialty Start Date End Date Peter Arnett MD [address] [place] [phone] PCP - General Family Medicine 02/05/24 Valerie Krause MD [address] [place] [address] Referring Physician Family Medicine 01/29/24 documented as of this encounter
--- OUTSIDE RECORDS SUMMARY | 2024-11-11 11:28 | XMS_ITS | Clinical Summary ---
Author Organization [facility] Address [address] [place] [address] Care Team Providers Care Warehouse Incentive Selector Name Role Phone Peter Arnett MD Primary Care Provider [phone] Allergies Active Allergy Reactions Criticality Noted Date Comments Sulfa (Sulfonamide Antibiotics) Rash,Swelling Low 0 09/08/2011 Medications metFORMIN (GLUCOPHAGE) 1000 MG tablet Take 1 (one) tablet (1,000 mg total) by mouth 2 (two) times a day with meals . 01/26/2016 Active doxazosin (CARDURA) 2 MG tablet Take 1 (one) tablet (2 mg total) by mouth 2 (two) times a day . 02/08/2020 Active irbesartan (AVAPRO) 300 MG tablet Take 1 (one) tablet (300 mg total) by mouth daily . 02/05/2020 Active metoprolol tartrate (LOPRESSOR) 100 MG tablet Take 1 (one) tablet (100 mg total) by mouth 2 (two) times a day . 02/06/2020 Active pantoprazole (PROTONIX) 40 MG tablet Take 1 (one) tablet (40 mg total) by mouth once daily . 01/26/2016 Active simvastatin (ZOCOR) 10 MG tablet Take 1 (one) tablet (10 mg total) by mouth nightly . 01/25/2020 Active amLODIPine (NORVASC) 10 MG tablet Take 1 (one) tablet (10 mg total) by mouth nightly . 03/21/2020 Active oxybutynin (DITROPAN) 5 MG tablet Take 1 (one) tablet (5 mg total) by mouth 3 (three) times a day . 03/16/2020 Active eluxadoline 100 mg Tab Take 1 (one) tablet (100 mg total) by mouth daily . Active SUMAtriptan (IMITREX) 100 MG tablet PRN per . 11/25/2020 Active cholecalciferol , vitamin D3, 50 mcg (2,000 unit) cap 03/23/2021 Active OLANZapine (ZYPREXA) 15 MG tablet Take 1 (one) tablet (15 mg total) by mouth nightly . 90 tablet 3 05/30/2022 Active clonazePAM (KLONOPIN) 0.5 MG tabletIndicatio ns:Insomnia due to mental disorder,VICKIE (generalized anxiety disorder) Take 1 (one) tablet (0.5 mg total) by mouth 3 (three) times a day as needed for anxiety . 90 tablet 05/30/2022 Active buPROPion (WELLBUTRIN XL) 300 MG 24 hr tablet Take 1 (one) tablet (300 mg total) by mouth every morning . 90 tablet 3 11/27/2023 Active Active Problems Problem Noted Date Diagnosed Date Bipolar 1 disorder, depressed, mild 04/06/2020 Insomnia due to mental disorder 04/06/2020 VICKIE (generalized anxiety disorder) 04/06/2020 Family History Medical History Relation Comments Schizophrenia Other Dementia Neg Hx Paranoid behavior Neg Hx Physical abuse Neg Hx Relation Status Comments Other Social History Tobacco Use Types Packs/Day Years Used Date Smoking Tobacco: Former Smokeless Tobacco: Never Tobacco Cessation:Counseling Given: Not Answered Alcohol Use Standard Drinks/Week Comments Not Currently 0 (1 standard drink = 0.6 oz pur e alcohol) Comments Unknown Sex and Gender Information Value Date Recorded Sex Assigned at Not on file Legal Sex Female 11:02 AM EST Gender Identity Not on file Sexual Orientation Not on file Last Filed Vital Signs Vital Sign Reading Time Taken Comments Blood Pressure 129/84 05/30/2022 1:47 PM EST Pulse 76 05/30/2022 1:47 PM EST Temperature - - Respiratory Rate 16 05/30/2022 1:47 PM EST Oxygen Saturation 97% 05/30/2022 1:47 PM EST Inhaled Oxygen Concentration - - Weight 81.2 kg (179 lb) 05/30/2022 1:47 PM EST Height 157.5 cm (5' 2 ) 05/30/2022 1:47 PM EST Body Mass Index 32.74 05/30/2022 1:47 PM EST Plan of Treatment Health Maintenance Due Date Last Done Comments CT Colonography 1960 Colonoscopy 1960 Colorectal Cancer Screening/Monitoring 1960 Fecal DNA 1962 Fecal occult blood test (FOBT,FIT) 1962 Tetanus: Every 10yrs 1962 Wellness Visit 1965 HIV Screening 1977 Hepatitis C Screening 1980 Pap Smear 12/12/1983 Cervical Cancer Screening 1992 HPV/Cotest 1992 Mammogram 2002 Flexible sigmoidoscopy 2012 Zoster Vaccines (1 of 2) 2012 Pneumococcal Vaccine: Age 50 + (2 of 2 - PCV) 01/29/2016 01/28/2015 COVID-19 Vaccine (2023-2 5 season) 2023 03/29/2021, 07/13/2020, 06/21/2020 Influenza Vaccine (#1) 2024 , 04/22/2019, 03/07/2017, Additional history exists Respiratory Syncytial Virus Immunization: Risk, 60-74 Risk, or 75+ (1 - 1-dose 75+ series) 2037 Insurance [employer] PPO Care Teams Warehouse Incentive Selector Relationship Specialty Start Date End Date Peter Arnett MD [address] [facility] [address] [place] [phone] PCP - General Family Medicine 04/05/20
--- OUTSIDE RECORDS SUMMARY | 2024-11-11 11:28 | XMS_ITS | Clinical Summary ---
Author Organization [facility] Address [address] [place], [place] [address] Care Team Providers Care Feeder Driver Name Role Phone Peter Arnett MD Primary Care Provider [phone] Allergies Active Allergy Reactions Criticality Noted Date Comments Sulfa (Sulfonamide Antibiotics) Rash 12/31 Medications * This document contains information received from the source organization and may not represent a complete record from that organization. metFORMIN (GLUCOPHAGE) 1,000 mg tablet Take 1 tablet by mouth twice daily with meals. 60 tablet 0 6 Active losartan (COZAAR) 100 mg tablet Take 1 tablet by mouth once daily. 30 tablet 0 6 Active hydroCHLOROthia zide (HYDRODIURIL, ESIDRIX) 25 mg tablet Take 1 tablet by mouth once daily. 30 tablet 0 6 Active QUEtiapine (SEROQUEL) 25 mg tablet Take 1 tablet by mouth at bedtime as needed (Insomnia). 10 tablet 0 6 Active Additional Information Patient taking differently: 50 mgORAL AT BEDTIME NEEDED, Insomnia, Reported on 03/02/2016 ARIPiprazole (ABILIFY) 2 mg tablet Take 1 tablet by mouth once daily. 30 tablet 0 6 Active metoprolol succinate ER (TOPROL XL) 100 mg Tb24 Take 1 tablet by mouth once daily. 30 tablet 0 6 Active eluxadoline (VIBERZI) 100 mg tab Take 100 mg by mouth DAILY (6 AM). 0 6 Active diclofenac, EC, (VOLTAREN) 75 mg EC tablet Take 1 tablet by mouth twice daily with meals. [address] (PROTONIX) 40 mg tablet Take 1 tablet by mouth DAILY (6 AM). 0 6 Active zolpidem (AMBIEN) 5 mg tablet Take 1 tablet by mouth daily at bedtime. 30 tablet 0 6 Active traZODone (DESYREL) 100 mg tablet Take 2 tablets by mouth daily at bedtime. 60 tablet 0 6 Active vortioxetine (TRINTELLIX) 20 mg tab Take 1 tablet by mouth once daily. 0 6 Active ONDANSETRON HCL (ZOFRAN, HYDROCHLORIDE, ORAL) Take 4 mg by mouth as needed. Active MULTIVIT-MINERA LS/FERROUS FUM (MULTI VITAMIN ORAL) Take by mouth once daily. Active cholecalciferol (VITAMIN D-3) 2,000 unit tablet Take 2,000 Units by mouth 3 times a WEEK. 3 gummies daily to total 6000 three times a week Active Active Problems Problem Noted Date Diagnosed Date Severe episode of recurrent major depressive disorder, without psychotic features 01/18/2016 MDD (major depressive disorder) 01/18/2016 Social History Tobacco Use Types Packs/Day Years Used Date Smoking Tobacco: Never Assessed Comments Unknown Sex and Gender Information Value Date Recorded Sex Assigned at Not on file Legal Sex Female 4:16 PM EDT Gender Identity Not on file Sexual Orientation Not on file Last Filed Vital Signs Vital Sign Reading Time Taken Comments Blood Pressure 148/102 03/06/2016 1:15 PM EST Pulse 69 03/06/2016 1:15 PM EST Temperature 37.3 C (99.1 F) 02/16/2016 9:19 AM EST Respiratory Rate 16 03/06/2016 1:15 PM EST Oxygen Saturation 96% 03/06/2016 1:15 PM EST Inhaled Oxygen Concentration - - Weight 97.9 kg (215 lb 14.4 oz) 016 11:50 AM EST Height 157.5 cm (5' 2 ) 01/18/2016 4:14 PM EDT Body Mass Index 39.49 01/18/2016 4:14 PM EDT Plan of Treatment Health Maintenance Due Date Last Done Comments Anxiety Screening 1980 Depression Screening 1980 HIV Screening 1980 Hepatitis C Screening 1980 DTaP,Tdap,Td Vaccine (1 - Tdap) 1981 Cervical Cancer Screening 12/12/[address] Colonography 12/12/2007 Cologuard (FIT-DNA) 12/12/2007 Colonoscopy 12/12/2007 Colorectal Cancer Screening 12/12/2007 Fecal Occult Blood 12/12/2007 Lipid Screening 12/12/2007 Sigmoidoscopy 12/12/2007 Pneumococcal Vaccine: 50+ (1 of 1 - PCV) 2012 Shingrix Vaccine (1 of 2) 2012 Diabetes Screening 01/18/2019 01/19/2016, 01/19/2016 Influenza Vaccine (#1) 2024 RSV Vaccine (1 - 1-dose 75+ series) 2037 Procedures Procedure Name Priority Date/Time Associated Diagnosis Comments HGB A1C (EU,FV,HL,JATINDER,MM,SP) THALIA 01/19/2016 4:29 PM EDT from Last 3 Months or Most Recently Relevant to Health Maintenance Results * HGB A1C (EU,FV,HL,JATINDER,MM,SP) (01/19/2016 4:29 PM EDT) Hemoglobin A1C 5.1 4.3 - 5.6 % 01/19/2016 9:00 PM EDT [facility] Estimated Average Glucose 100 mg/dL 01/19/2016 9:01 PM EDT [facility] Comment: eAG: (Estimated average glucose) is a calculated value from HgbA1c and is lead customer service representative of the average blood glucose level in the last 2-3 month period. Blood specimen (specimen) WHOLE BLOOD SPECIMEN / Unknown 01/19/2016 4:29 PM EDT 01/19/2016 4:52 PM EDT us Maricarmen Mccauley MD [facility] Final R esult [facility] [address] [address] from Last 3 Months or Most Recently Relevant to Health Maintenance Insurance MMO [employer] PPO Care Teams Feeder Driver Relationship Specialty Start Date End Date Peter Arnett MD PCP - General Family Medicine 10/12/14
--- OUTSIDE RECORDS SUMMARY | 2024-11-11 11:28 | XMS_ITS | Patient Health Record ---
Author Organization [facility] Address [address] [place] [address] Care Team Providers Care Clinical Coder Name Role Phone Мария Crespo Primary Care Provider [phone] Reason For Referral No Information Social History Depression Screening (PHQ-9): Question Answer Notes Little interest or pleasure in doing things Near ly every day Feeling down, depressed, or hopeless Not at all Trouble falling or staying a sleep, or sleeping too much Several days Feeling tired or having little energy Nearly bartolo ry day Poor appetite or overeating More than half the d ays Feeling bad about yourself-o r that you are a failure or have let yourself or your family down More than half the days Trouble concentrating on thi ngs, such as reading the newspaper or watching television More than half the days Moving or speaking so slowly that other people could have noticed. Or the opposite being so fidgety or restless that you have been moving around a lot more than usual More than half the days Thoughts that you would be b katarina off , or of hurting yourself in some way Not at all Total Score 15 Intepretation Moderately severe depression Problems Problem Type SNOMED Code ICD Code Onset Dates Problem Status W/U Status Risk Notes Problem Bipolar 1 disorder, depressed (F31.9) Active confirmed Plan Of Treatment No Information Insurance Providers Payer Name Payer Address Payer Phone Subscriber Number Group Number Insured Name Patient Relationship to Insured Coverage Start Date Coverage End Date [employer] [facility] [address] [place] [phone] [id number] TERRIE PORTER Spouse - patient is the spouse of the insured 1
--- OUTSIDE RECORDS SUMMARY | 2024-11-11 11:28 | XMS_ITS | Encounter Summary ---
Author Organization [facility] Address [address] [place] [address] Care Team Providers Care Teaching Manager Name Role Phone Valerie Krause MD Unavailable [phone] Peter Arnett MD Primary Care Provider [phone] Encounter Details Date Type Department Care Team (Late Contact Info) Description 12/09/2014 Abstract [facility] [address] [place] [phone] Lilibeth Pena, [facility] [address] [place] [address] Social History Tobacco Use Types Packs/Day Years [...] EDT Office Visit [facility] [address] [place] [phone] Gilmer Rivera DPM [address] [address] documented as of this encounter Visit Diagnoses Not on filedocumented in this encounter Care Teams Teaching Manager Relationship Specialty Start Date End Date Peter Arnett MD [address] [place] [address] PCP - General Family Medicine 02/05/24 Valerie Krause MD [address] [place] [address] Referring Physician Family Medicine 01/29/24 documented as of this encounter
--- OUTSIDE RECORDS SUMMARY | 2024-11-11 11:28 | XMS_ITS | Clinical Summary ---
Author Organization [facility] Healthcare Address [address] [place] [address] Care Team Providers Care Wire Fence Erector Name Role Phone Valerie Krause MD Unavailable Peter Arnett MD Primary Care Provider [phone] Allergies Active Allergy Reactions Criticality Noted Date Comments Sulfa Antibiotics Rash,Swelling Low 09/08/2011 Medications pantoprazole (ProtoNix) 40 MG EC tablet Take 40 mg by mouth in the morning. Take before meals. Do not crush, chew, or split.. Active metoprolol succinate XL (Toprol-XL) 100 MG 24 hr tablet Take 100 mg by mouth Daily Do not crush or chew. Active doxazosin (Cardura) 2 MG tablet Take 2 mg by mouth in the morning and 2 mg before bedtime. Active buPROPion XL (Forfivo XL) 450 MG 24 hr tablet Take 450 mg by mouth Daily Do not crush, chew, or split. Active amLODIPine (Norvasc) 10 MG tablet Take 10 mg by mouth Daily Active trospium (Sanctura) 20 MG tablet Take 60 mg by mouth Daily Active cholecalciferol (Vitamin D-3) 50 MCG (1999 UT) tablet Take 2,000 Units by mouth Daily Active hydrALAZINE (Apresoline) 25 MG tablet Take 25 mg by mouth in the morning and 25 mg in the evening and 25 mg before bedtime. Active traZODone (Desyrel) 100 MG tablet Take 100 mg by mouth at bedtime Active clonazePAM (KlonoPIN) 0.5 MG tablet Take 0.5 mg by mouth Daily Active simvastatin (Zocor) 10 MG tablet Take 10 mg by mouth at bedtime Active metoprolol tartrate (Lopressor) 100 MG tablet 06/10/2024 Active levothyroxine (Synthroid, Levoxyl) 75 MCG tablet TAKE 1 TABLET BY MOUTH EVERY DAY IN THE MORNING ON AN EMPTY STOMACH FOR 30 DAYS 06/26/2024 Active trospium (Sanctura XR) 60 MG 24 hour capsule 05/02/2024 Active Active Problems Problem Noted Date Diagnosed Date Bipolar 1 disorder, depressed, mild 04/06/2020 VICKIE (generalized anxiety disorder) 04/06/2020 Insomnia due to mental disorder 04/06/2020 MDD (major depressive disorder) 01/18/2016 Severe episode of recurrent major depressive disorder, without psychotic features 01/18/2016 Encounters Date Type Department Care Team Description 11/11/2024 10:20 AM EDT Office Visit [facility] [address] [place] [address] Gilmer Rivera DPM DJD (degenerative joint disease), ankle and foot, left (Primary Dx); Contracture of right ankle 11/11/2024 Bamboo flowsheet [facility] [address] [place] [address] Gilmer Rivera DPM 10/17/2024 Abstract [facility] [address] [facility] [address] [place] [phone] Gilmer Rivera DPM 10/13/2024 1:50 PM EDT [facility] [address] [place] [address] Gilmer Rivera DPM DJD (degenerative joint disease), ankle and foot, left (Primary Dx); Lisfranc dislocation, left, initial encounter 10/13/2024 Telephone [facility] [address] [facility] [address] [place] [phone] Gilmer Rivera DPM Casting For Braces Or Orthotics 10/13/2024 Bamboo flowsheet [facility] [address] [place] [address] Gilmer Rivera DPM 09/29/2024 External Result Encounter [facility] External Department Unsolicited Gilmer Rivera DPM 09/10/2024 4:20 PM EDT [facility] [address] [place] [phone] Gilmer Rivera DPM Other physeal fracture of left metatarsal, initial encounter for closed fracture (Primary Dx); DJD (degenerative joint disease), ankle and foot, left; Lisfranc dislocation, left, initial encounter; Capsulitis of metatarsophalangeal (MTP) joint of left foot 09/10/2024 Bamboo flowsheet [facility] [address] [place] [address] Gilmer Rivera DPM 09/08/2024 Travel 09/03/2024 4:00 PM EDT Ancillary Procedure [facility] [address] [place] [address] 09/03/2024 3:40 PM EDT Office Visit [facility] [address] [place] [phone] Gilmer Rivera DPM DJD (degenerative joint disease), ankle and foot, left (Primary Dx); Lisfranc dislocation, left, initial encounter; Other physeal fracture of left metatarsal, initial encounter for closed fracture; Capsulitis of metatarsophalangeal (MTP) joint of left foot 09/03/2024 Bamboo flowsheet [facility] [address] [place] [address] [phone] Gilmer Rivera DPM 08/13/2024 Orders Only [facility] [address] [place] [address] Hallie Leigh MA Lisfranc dislocation, left, initial encounter 08/11/2024 1:20 PM EDT Office Visit [facility] [address] [place] [phone] Gilmer Rivera DPM DJD (degenerative joint disease), ankle and foot, left (Primary Dx); Lisfranc dislocation, left, initial encounter 08/11/2024 Bamboo flowsheet [facility] [address] [place] [address] Gilmer Rivera DPM from Last 3 Months Family History Medical History Relation Name Comments Diabetes Father Diabetes Mother Relation Name Status Comments Father Mother Social History Tobacco Use Types Packs/Day Years Used Date Smoking Tobacco: Former Cigarettes Q uit: 2001 Smokeless Tobacco: Never Tobacco Cessation:Counseling Given: Yes [...] Sign Reading Time Taken Comments Blood Pressure 119/76 02/12/2024 8:50 AM EST Pulse - - Temperature - - Respiratory Rate 18 11/11/2024 10:35 AM EDT Oxygen Saturation - - Inhaled Oxygen Concentration - - Weight 89.8 kg (198 lb) 11/11/2024 10:35 AM EDT Height 157.5 cm (5' 2 ) 11/11/2024 10:35 AM EDT Body Mass Index 36.21 11/11/2024 10:35 AM EDT Plan of Treatment Upcoming Encounters Date Type Department Care Team (Late st Contact Info) Description 12/12/2024 9:30 AM EDT Office Visit [facility] [address] [place] [address] Gilmer Rivera DPM [address] [address] Health Maintenance Due Date Last Done Comments CT Colonography 1962 FIT-DNA 1962 FIT 1962 FOBT 1962 Sigmoidoscopy 1962 Pap Smear 12/12/1983 Cervical Cancer Screening 1992 HPV/Cotest 1992 Mammogram 2002 Colonoscopy 05/19/2023 05/19/2013 Colorectal Cancer Screening 05/19/2023 Influenza Vaccine (#1) 2024 2, 04/22/2019, 03/07/2017, Additional history exists Procedures Procedure Name Priority Date/Time Associated Diagnosis Comments CT FOOT LEFT WO IV CONTRAST 09/29/2024 10:48 PM EDT XR FOOT 3+ VIEWS LEFT Routine 09/03/2024 3:59 PM EDT DJD (degenerative joint disease), ankle and foot, left CT FOOT LEFT WO IV CONTRAST Routine 08/13/2024 9:30 AM EDT Lisfranc dislocation, left, initial encounter COLONOSCOPY Routine 05/19/2013 12:00 PM EST from Last 3 Months or Most Recently Relevant to Health Maintenance Results * CT foot left wo IV contrast (09/29/2024 10:48 PM EDT) Only the most recent of2 resultswithin the time period is included. Anatomical Region Laterality Modality Lower Extremities, Foot Left Computed Tomography 09/29/2024 10:4 8 PM EDT Impressions 09/29/2024 10:56 PM EDT Midfoot degenerative changes. Findings of old Lisfranc injury. No acute fracture identified. Impression dictated by: Ethan Portillo M.D. 09/29/2024 10:53 PM Dictation Location: [place] [address] Transcribed By: [facility] 09/29/242252 Dictated By: Ethan Portillo DO 09/29/242247 Signed By: <Electronically signed by Ethan Portillo DO in OV> 09/29/242252 Narrative 09/29/2024 10:56 PM EDT [facility] [address] CT Scan Report Signed Patient: Kyleigh Porter MR#: [id number] 827 : 1960 Acct:[id number] Age/Sex: 63 / F ADM Date: 09/29/24 Loc: CT Room: Type: [facility] CLI Attending Dr: Gilmer Rivera DPNicole Copies to: Gilmer Rivera DPM Ordering Provider: Gilmer Rivera DPM Date of Service: 09/29/24 CT/CT foot LT wo con: S93.325A,S99.192A CT left foot without contrast TECHNIQUE: The CT exam was performed using one or more the following dose reduction techniques: Automated exposure control, adjustment of the MA and/or Kv according to patient size, or use of the iterative reconstruction technique. COMPARISON: None HISTORY: Follow-up for fracture. Multiple falls The distal tibia intact. Distal fibula intact. Syndesmosis preserved. The talus intact. Talar dome intact. Partially fused os trigonum. Subtalar joint is intact. Calcaneus intact. Posterior calcaneal spurring. Calcaneocuboid joint preserved. Cuneiform intact. Spurring of the bases of the metatarsals. May correspond with old the Lisfranc injury. First and second metatarsal base diastases. Metatarsals intact. Phalanges intact. Moderate interphalangeal degenerative changes. No acute displaced fracture. No acute bony destruction. No subcutaneous air. No fluid collections with noncontrasted imaging. CT/CT foot LT wo con Procedure Note Radiology, Radiologist, - 10/09/2024 [facility] Main [place] [address] [place] [address] CT Scan Report Signed Patient: Kyleigh Porter SMR#: [id number] 827 : 1960Acct:[id number] Age/Sex: 63 / FADM Date: 09/29/24 Loc: CT Room:Type: [facility] Attending Dr: Gilmer Rivera DPM Copies to: Gilmer Rivera DPM Ordering Provider: Gilmer Rivera DPM Date of Service: 09/29/24 CT/CT foot LT wo con: S93.325A,S99.192A CT left foot without contrast TECHNIQUE: The CT exam was performed using one or more the following dosereduction techniques: Automated exposure control, adjustment of the MA and/or Kv according topatient size, or use of the iterative reconstruction technique. COMPARISON: None HISTORY: Follow-up for fracture. Multiple falls The distal tibia intact. Distal fibula intact. Syndesmosis preserved.The talus intact. Talar dome intact. Partially fused os trigonum. Subtalar joint is intact.Calcaneus intact. Posterior calcaneal spurring. Calcaneocuboid joint preserved. Cuneiform intact.Spurring of the bases of the metatarsals. May correspond with old the Lisfranc injury. First andsecond metatarsal base diastases. Metatarsals intact. Phalanges intact. Moderateinterphalangeal degenerative changes. No acute displaced fracture. No acute bony destruction. No subcutaneousair. No fluid collections with noncontrasted imaging. CT/CT foot LT wo con IMPRESSION: Midfoot degenerative changes. Findings of old Lisfranc injury. No acutefracture identified. Impression dictated by: Ethan Portillo M.D. 09/29/2024 10:53 PM Dictation Location: [place] [address] Transcribed By: [facility] 09/29/242252 Dictated By: Ethan Portillo DO 09/29/242247 Signed By: <Electronically signed by Ethan Portillo DO in OV> 09/29/242252 Gilmer Rivera DPNicole IMG CT PROCEDURES Edited Re sult - Final * XR foot 3+ views left (09/03/2024 3:59 PM EDT) Anatomical Region Laterality Modality Lower Extremities, Foot Left Radiogra phic Imaging Narrative 09/03/2024 4:04 PM EDT Imaging Result: Notable degenerative changes to left midfoot area with notable left old Lisfranc injury with slight diastasis of the Lisfranc joint and areas suspicion to left 3rd and 4th metatarsal base region with possible old fracture or new fractures with negative displacement Gilmer Rivera DPNicole IMG XR PROCEDURES Final Res ult * Colonoscopy (05/19/2013 12:00 PM EST) Anatomical Region Laterality Modality Endoscopy 05/19/2013 12:0 0 PM EST Narrative 05/19/2013 12:00 PM EST PERFORMED AT [facility] LOCATION:[id number] Polyps Procedure Note CONVERSION, GENERIC - 08/17/2022 PERFORMED AT [facility] LOCATION:[id number] Polyps us Emelyn Smith MD ENDOSCOPY PROCEDURE ORDERABLES F inal Result from Last 3 Months or Most Recently Relevant to Health Maintenance Insurance [employer] Care Teams Wire Fence Erector Relationship Specialty Start Date End Date Peter Arnett MD [facility] [place] [address] PCP - General Family Medicine 02/05/24 Valerie Krause MD [address] [place] [address] Referring Physician Family Medicine 01/29/24
--- OUTSIDE RECORDS SUMMARY | 2024-11-11 11:28 | XMS_ITS | Encounter Summary ---
Author Organization [facility] Address [address] [place] [address] Care Team Providers Care Cable Systems Installer Name Role Phone Valerie Krause MD Unavailable [phone] Peter Arnett MD Primary Care Provider [phone] Encounter Details Date Type Department Care Team (Late Contact Info) Description 09/29/2024 External Result Encounter [facility] External Department Unsolicited Gilmer Rivera DPM [address] [address] Social History Tobacco Use Types Packs/Day Years [...] EDT Office Visit [facility] [address] [place] [address] Gilmer Rivera DPM [address] [address] documented as of this encounter Procedures Procedure Name Priority Date/Time Associated Diagnosis Comments CT FOOT LEFT WO IV CONTRAST 09/29/2024 10:48 PM EDT documented in this encounter Results * CT foot left wo IV contrast (09/29/2024 10:48 PM EDT) Anatomical Region Laterality Modality Lower Extremities, Foot Left Computed Tomography 09/29/2024 10:4 8 PM EDT Impressions 09/29/2024 10:56 PM EDT Midfoot degenerative changes. Findings of old Lisfranc injury. No acute fracture identified. Impression dictated by: Ethan Portillo M.D. 09/29/2024 10:53 PM Dictation Location: [facility] Transcribed By: [facility] 09/29/242252 Dictated By: Ethan Portillo DO 09/29/242247 Signed By: <Electronically signed by Ethan Portillo DO in OV> 09/29/242252 Narrative 09/29/2024 10:56 PM EDT [facility] [place] [address] CT Scan Report Signed Patient: Kyleigh Adame MR#: [id number] 827 : 1960 Acct:[id number] Age/Sex: 63 / F ADM Date: 09/29/24 Loc: CT Room: Type: [facility] Attending Dr: Gilmer Rivera DPM Copies to: [...] con Procedure Note Radiology, Radiologist, - 10/09/2024 [facility] Main [place] [address] [place], [place] [id number] CT Scan Report Signed Patient: Kyleigh Adame SMR#: [id number] 827 : 1960Acct:[id number] Age/Sex: 63 / FADM Date: 09/29/24 Loc: CT Room:Type: [facility] CLI Attending Dr: Gilmer Rivera DPM Copies to: [...] Portillo M.D. 09/29/2024 10:53 PM Dictation Location: [place] Transcribed By: [facility] 09/29/242252 Dictated By: Ethan Portillo DO 09/29/24 2248 Signed By: <Electronically signed by Ethan Portillo DO in OV> 09/29/242252 Gilmer Rivera DPM IMG CT PROCEDURES Edited Re sult - Final documented in this encounter Visit Diagnoses Not on filedocumented in this encounter Care Teams Cable Systems Installer Relationship Specialty Start Date End Date Peter Arnett MD [address] [place] [phone] PCP - General Family Medicine 02/05/24 Valerie Krause MD [address] [place] [address] Referring Physician Family Medicine 01/29/24 documented as of this encounter
--- OUTSIDE RECORDS SUMMARY | 2024-11-11 11:28 | XMS_ITS | Clinical Summary ---
Author Organization [facility] Address [address] [place] [address], [address] [place] [address] Care Team Providers Care Refinery Operator Visbreaking Name Role Phone Peter Arnett MD Primary Care Provider [phone] Social History Tobacco Use Types Packs/Day Years Used Date Smoking Tobacco: Never Assessed Comments Unknown Sex and Gender Information Value Date Recorded Sex Assigned at Not on file Legal Sex Female 12:00 PM EDT Gender Identity Not on file Sexual Orientation Not on file Plan of Treatment Health Maintenance Due Date Last Done Comments Depression Screen 1974 HIV screen 1977 Hepatitis C screen 1980 DTaP/Tdap/Td vaccine (1 - Tdap) 1981 Pap smear 12/12/1983 Cervical cancer screen 1992 HPV (without or with Pap) 1992 Breast cancer screen 2002 Lipids 2002 Colonoscopy 12/12/2007 Colorectal Cancer Screen 12/12/2007 FIT/FOBT: Average risk 12/12/2007 Fecal-DNA (Cologuard): Average risk 12/12/2007 Sigmoidoscopy/CT colonography 12/12/2007 Shingles vaccine (1 of 2) 2012 Pneumococcal 50+ years Vaccine (2 of 2 - PCV) 01/29/2016 01/28/2015 COVID-19 Vaccine (2023-2 5 season) 2023 03/29/2021, 07/13/2020, 06/21/2020 Flu vaccine (#1) 10/31/2024 01/05/2022, 04/22/2019 Respiratory Syncytial Virus (RSV) or age 60 yrs+ (1 - 1-dose 75+ series) 2037 Pneumococcal 0-49 years Vaccine Discontinued 01/28/2015 Hepatitis A vaccine Aged Out No longe r eligible based on patient's age to complete this topic Hepatitis B vaccine Aged Out No longe r eligible based on patient's age to complete this topic Hib vaccine Aged Out No longer eligi ble based on patient's age to complete this topic Meningococcal (ACWY) vaccine Aged Out No longer eligible based on patient's age to complete this topic Meningococcal B vaccine Aged Out No l onger eligible based on patient's age to complete this topic Polio vaccine Aged Out No longer elig ible based on patient's age to complete this topic Insurance [employer] Care Teams Refinery Operator Visbreaking Relationship Specialty Start Date End Date Peter Arnett MD [address] [place] [phone] PCP - General Family Medicine 09/26/23
--- OUTSIDE RECORDS SUMMARY | 2024-11-11 11:28 | XMS_ITS | Encounter Summary ---
Author Organization [facility] Address [address] [place] [address] Care Team Providers Care Escrow Representative Name Role Phone Valerie Krause MD Unavailable [phone] Peter Arnett MD Primary Care Provider [phone] Reason for Visit * Reason Onset Date Comments Casting For Braces Or Orthotics 10/13/2024 Encounter Details Date Type Department Care Team ([facility] st Contact Info) Description 10/13/2024 [facility]phone [facility] [address] [place] [phone] Gilmer Rivera, DPNicole [address] [facility] [address] [place] [address] Casting For Braces Or Orthotics Social History Tobacco Use Types Packs/Day Years [...] on file documented as of this encounter Miscellaneous Notes * Telephone Encounter - Hallie Jhaveri MA - 10/30/2024 3:50 PM EDT Pt wishes to proceed with orthotics. Appointment scheduled to be scanned on 11/11/24 (pt requested this date due to vacation). * Telephone Encounter - IVONNE JHAVERI - 10/22/2024 12:31 PM EDT Left vm w/ pt to go over orthotic benefits * Telephone Encounter - IVONNE JHAVERI - 10/17/2024 11:12 AM EDT PER CALL W/ erich @ [facility] nya mead HAS AN ACTIVE PLAN WITH AN EFFECTIVE DATE OF 12/01/14 CUSTOM MOLDED ORTHOTICS CODE L3020 DED:$500 ind / $1000 fam (ind is met) OOP: $1500 ind / $3000 fam (ind is met) COIN: $1000 PRIOR AUTH:no FREQ LIMIT: 2 in 1 day / 2 in 547 days- has not been billed EXCL: no COVERED: 90 % once ded is met, which it is REF# [id number] * Telephone Encounter - Gilmer Rivera DPM - 10/13/2024 2:05 PM EDT Please precertify for custom orthotics for the diagnosis of left foot Lisfranc injury and please call patient to inform if covered or not covered as she would like to know if covered and cost and if not covered and would like to get will need to come in the be scanned and understands [id number] cost if not covered Please call patient after verifying coverage documented in this encounter Plan of Treatment Upcoming Encounters Date Type Department Care Team (Late st Contact Info) Description 12/12/2024 9:30 AM EDT Office Visit [facility] [address] [place] [phone] Gilmer Rivera DPM [address] [address] documented as of this encounter Visit Diagnoses Not on filedocumented in this encounter Care Teams Escrow Representative Relationship Specialty Start Date End Date Peter Arnett MD [facility] [place] [address] PCP - General Family Medicine 02/05/24 Valerie Krause MD [address] [place] [address] Referring Physician Family Medicine 01/29/24 documented as of this encounter
--- OUTSIDE RECORDS SUMMARY | 2024-11-11 11:28 | XMS_ITS | Patient Health Record ---
Author Organization The [facility] in [place] Address [address] [place] [address] Care Team Providers Care Artificial Breeding Technician Name Role Phone José Antonio Arnett Primary Care Provider Valerie Krause [phone] Allergies Allergen (clinical drug ingredient) Drug/Non Drug Allergy documented on EMR Reaction Allergy Type Onset Date Status Substance with sulfonamide structure and antibacterial mechanism of action (substance) Sulfa Antibiotics hives/ rash Drug Allergy Active Results Component Value Reference Range Notes CBC AUTO DIFF Reviewed date:06/18/2024 08:05:41 PM Interpretation: Performing Lab: Notes/Report: [facility] , White Blood Count 6.2 4.0-11.0 10 3/uL Red Blood Count 4.34 4.20-5.40 10 6/uL Hemoglobin 13.0 12.0-16.0 g/dL Hematocrit 39.7 36.0-48.0 % Mean Corpuscular Volume 91.5 81.0-99.0 fL Mean Corpuscular Hemoglobin 30.0 26.7-34.0 pg Mean Corpuscular HGB Conc 32.7 29.9-35.2 g/dL Red Cell Distribution Width 14.6 11.0-15.0 % Platelet Count 229 150-450 10 3/uL Mean Platelet Volume 10.3 9.5-13.5 fL Neutrophils Percent Auto 58.2 43.0-75.0 % Lymphocytes Percent Auto 30.3 20.5-60.0 % Monocytes Percent Auto 8.6 1.7-12.0 % Eosinophils Percent Auto 1.9 0.9-7.0 % Basophils Percent Auto 0.8 0.2-2.0 % Immature Granulocytes Pct Auto 0.2 0.0-0.5 % Neutrophils Absolute Auto 3.6 1.4-6.5 10 3/uL Lymphocytes Absolute Auto 1.9 1.2-3.8 10 3/uL Monocytes Absolute Auto 0.5 0.3-0.8 10 3/uL Eosinophils Absolute Auto 0.1 0.0-0.7 10 3/uL Basophils Absolute Auto 0.1 0.0-0.1 10 3/uL Immature Granulocytes Abs Auto 0.01 0.00-0.03 10 3/uL Performing Lab: see note ML - [facility] LB PROF 14(COMP METB) Reviewed date:06/18/2024 08:05:41 PM Interpretation: Performing Lab: Notes/Report: The [facility] , Sodium 141 136-145 mmol/L Potassium 4.7 3.5-5.1 mmol/L Chloride 105 98-107 mmol/L Carbon Dioxide 29.2 21.0-32.0 mmol/L Anion Gap 11.5 Glucose 95 74-106 mg/dL Blood Urea Nitrogen 22.0 7.0-18.0 mg/dL Creatinine 1.62 0.55-1.02 mg/dL Estimated GFR ( [place] 39 >=60 mL/min/1.73m 2 Estimated GFR (Non- Angelica 32 >=60 mL/min/1.73m 2 BUN Creatinine Ratio 13.6 Calcium 9.1 8.5-10.1 mg/dL Bilirubin Total 0.4 0.2-1.0 mg/dL Aspartate Amino Transferase 16 15-37 U/L Alanine Aminotransferase 27 14-59 U/L Alkaline Phosphatase 81 46-116 U/L Total Protein 7.0 6.4-8.2 g/dL Albumin Level 3.6 3.4-5.0 g/dL Globulin 3.4 Albumin Globulin Ratio 1.1 Performing Lab: see note ML - [facility] LB XR knee RT 2V Reviewed date:2023 10:45:31 PM Interpretation: Performing Lab: Notes/Report: Source Facility: [facility] [place] [address] [place] [address] XRay Report Signed Patient: KYLEIGH PORTER MR#: [id number] : 1960 Acct:[id number] Age/Sex: 62 / F ADM Date: 12/10/23 Loc: EC Attending Dr: Kev Degroot M.D. Ordering Physician: Kev Degroot M.D. Date of Service: 12/10/23 Procedure(s): XR knee RT 2V Accession Number(s): [id number] cc: Kev Degroot M.D.; Vicky Arnett M.D. [place] [address] Patient Name: KYLEIGH PORTER MRN: [id number]:[id number] date: 1960 Sex: F Assigned Patient Location: Current Patient Location: Accession/Order Number: [id number] Exam Date: 12/10/2023 09:01 Report Date: 2023 22:16 At the request of: KEV DEGROOT Procedure: XR knee RT 2V EXAM: XR KNEE RT 2V HISTORY: RIGHT KNEE PAIN COMPARISON: 09/03/2023. FINDINGS/IMPRESSION: 1. Previously seen tibial plateau fracture line is not well seen, there is some sclerosis along the tibial plateau, suggesting healing. 2. No other acute fracture. 3. No knee joint effusion. 4. Normal alignment of the right knee joint. Electronically authenticated by: VITO CHOU Date: 2023 22:16 Dictated By: Vito Chou M.D. Signed By: 12/11/232218 DD/ 15 TD/TT: Customer Support Consultant: [place] [address] XRay Report Signed Patient: JOSE PORTER RA MR#: [id number] : 1960 Acct:[id number] Age/Sex: 62 / F ADM Date: 12/10/23 Loc: EC Attending Dr: Kev Degroot M.D. Ordering Physician: Kev Degroot M.D. Date of Service: 12/10/23 Procedure(s): XR kne e RT 2V Accession Number(s): [id number] cc: Kev Degroot M.D.; Vicky Arnett M.D. The [place] [id number] Patient Name: KYLEIGH PORTER MRN: [id number]:[id number] date: 1960 Sex: F Assigned Patient Location: Current Patient Location: Accession/Order Numb er: [id number] Exam Date: 12/10/2023 09:01 Report Date: 2023 22:16 At the request of: KEV DEGROOT Procedure: XR knee R T 2V EXAM: XR KNEE RT 2V HISTORY: RIGHT KNEE PAIN COMPARISON: 09/03/2023. FINDINGS/IMPRESSION: 1. Previously seen tibial plateau fracture line is not well seen, there is some sclerosis along the tibial plateau, suggesting healing. 2. No other acute fracture. 3. No knee joint effusion. 4. Normal alignment of the right knee joint. Electronically authenticated by: VITO CHOU Date: 2023 22:16 Dictated By: Vito Chou M.D. Signed By: 12/11/232218 DD/ 15 TD/TT: Customer Support Consultant: FREE T3 Reviewed date:05/29/2024 08:07:43 PM Interpretation: Performing Lab: Notes/Report: [facility] , Free T3 2.87 2.18-3.98 pg/mL Performing Lab: see note ML - [facility] LB GLYCOHEMOGLOBIN A1C Reviewed date:05/29/2024 08:07:43 PM Interpretation: Performing Lab: Notes/Report: [facility] , Glycohemoglobin A1C 5.1 4.5-6.2 % ADA RECOMMENDED LIMIT 4.0 - 6.0 ADA THERAPEUTIC TARGET < 7.0 ACTION SUGGESTED > 7.0 Estimated Average Glucose 100 Performing Lab: see note ML - [facility] LB INSULIN Reviewed date:06/01/2024 12:55:58 PM Interpretation: Performing Lab: Notes/Report: [facility] , Insulin 17.9 2.6-24.9 uIU/mL Performed at: [facility] [address] [id number] Geomagnetician: Hemanth Winslow PhD, Phone: [phone] Performing Lab: see note LC - [facility] LB LIPID PROFILE Reviewed date:05/29/2024 08:07:43 PM Interpretation: Performing Lab: Notes/Report: [facility] , Triglycerides 121 <=150 mg/dL Cholesterol 150 <=200 mg/dL HDL Cholesterol 56 40-60 mg/dL > or =60 mg/dl - LOW CARDIOVASCULAR RISK <40 mg/dl - HIGH CARDIOVASCULAR RISK LDL Cholesterol Calculated 69.8 <100 mg/dl OPTIMAL 100-129 mg/dl NEAR OR ABOVE OPTIMAL 130-159 mg/dl BORDERLINE HIGH 160-189 mg/dl HIGH >190 mg/dl VERY HIGH VLDL CHOLESTEROL 24.2 Chol HDL Ratio 2.7 3.3 - 4.4 LOW RISK 4.4 - 7.1 AVERAGE RISK 7.1 - 11.0 MODERATE RISK >11.0 HIGH RISK Performing Lab: see note ML - [facility] PROF 14(COMP METB) Reviewed date:05/29/2024 08:07:43 PM Interpretation: Performing Lab: Notes/Report: [facility] , Sodium 143 136-145 mmol/L Potassium 4.2 3.5-5.1 mmol/L Chloride 107 98-107 mmol/L Carbon Dioxide 29.9 21.0-32.0 mmol/L Anion Gap 10.3 Glucose 103 74-106 mg/dL Blood Urea Nitrogen 22.0 7.0-18.0 mg/dL Creatinine 1.79 0.55-1.02 mg/dL Estimated GFR ( [place] 35 >=60 mL/min/1.73m 2 Estimated GFR (Non- Angelica 29 >=60 mL/min/1.73m 2 BUN Creatinine Ratio 12.3 Calcium 9.0 8.5-10.1 mg/dL Bilirubin Total 0.4 0.2-1.0 mg/dL Aspartate Amino Transferase 13 15-37 U/L Alanine Aminotransferase 15 14-59 U/L Alkaline Phosphatase 99 46-116 U/L Total Protein 6.5 6.4-8.2 g/dL Albumin Level 3.3 3.4-5.0 g/dL Globulin 3.2 Albumin Globulin Ratio 1.0 Performing Lab: see note ML - [facility] LB T4 Reviewed date:05/29/2024 08:07:43 PM Interpretation: Performing Lab: Notes/Report: The [facility] , T4 Thyroxine 7.80 4.80-13.90 ug/dL Performing Lab: see note ML - [facility] LB TSH Reviewed date:05/29/2024 08:07:43 PM Interpretation: Performing Lab: Notes/Report: The [facility] , Thyroid Stimulating Hormone 6.193 0.358-3.740 uIU/mL Performing Lab: see note ML - [facility] LB VITAMIN D 25 [place] Reviewed date:05/29/2024 08:07:43 PM Interpretation: Performing Lab: Notes/Report: The [facility] , Vitamin D 58.5 <20 ng/mL Vit D deficient 20-<30 ng/mL Vit D insufficient 30-100 ng/mL Vit D sufficient >100 ng/mL Potential Toxicity Performing Lab: see note ML - [facility] LB US renal bladder Reviewed date:06/02/2024 09:40:19 PM Interpretation: Performing Lab: Notes/Report: Source Facility: [place] [address] Ultrasound Report Signed Patient: KYLEIGH PORTER MR#: [id number] : 1960 Acct:[id number] Age/Sex: 63 / F ADM Date: 06/02/24 Loc: US Attending Dr: Vicky Arnett M.D. Ordering Physician: Vicky Arnett M.D. Date of Service: 06/02/24 Procedure(s): US renal bladder Accession Number(s): [id number] cc: Vicky Arnett M.D. [place] [address] Patient Name: KYLEIGH PORTER MRN: [id number] date: 1960 Sex: F Assigned Patient Location: US Current Patient Location: US Accession/Order Number: [id number] Exam Date: 06/02/2024 15:53 Report Date: 06/02/2024 16:40 At the request of: VICKY ARNETT MD Procedure: US renal bladder BILATERAL RENAL AND BLADDER ULTRASOUND CLINICAL HISTORY: Abnormal renal function N28.9 COMPARISON: Renal ultrasound 05/04/2023 FINDINGS: Estimation of renal size is approximately 10.1 cm on the right and 5.1 cm on the left. Cystic changes of both kidneys. 2 nonobstructing calculi involving the left kidney, largest measuring 7 mm. No hydronephrosis of either kidney. The urinary bladder is partially distended with a volume of 57 ml. No shadowing stone or focal lesion. No significant postvoid residual. US/US renal bladder IMPRESSION: LEFT NEPHROLITHIASIS. NO HYDRONEPHROSIS. Impression dictated by: Cesar Butler Jr., D.O.06/02/2024 4:40 PM Dictation Location: [place] [address] Electronically authenticated by: [id number] Y Date: 06/02/2024 16:40 Dictated By: Cesar Butler M.D. Signed By: 06/02/24 1642 DD/ 1640 TD/TT: Customer Support Consultant: [place] [address] Ultrasound Report Signed Patient: JOSE PORTER RA MR#: [id number] : 1960 Acct:[id number] Age/Sex: 63 / F ADM Date: 06/02/24 Loc: US Attending Dr: Mayte Arnett M.D. Ordering Physician: Vicky Arnett M.D. Date of Service: 06/02/24 Procedure(s): US iker al bladder Accession Number(s): [id number] cc: Vicky Arnett M.D. [place] [id number] Patient Name: KYLEIGH PORTER MRN: [id number]:[id number] date: 1960 Sex: F Assigned Patient Location: US Current Patient Location: US Accession/Order Numb er: [id number] Exam Date: 06/02/2024 15:53 Report Date: 06/02/2024 16:40 At the request of: VICKY ARNETT MD Procedure: US renal bladder BILATERAL RENAL AND BLADDER ULTRASOUND CLINICAL HISTORY: Abnormal renal function N28.9 COMPARISON: Renal ultrasound 05/04/2023 FINDINGS: Estimation of renal size is approximately 10.1 cm on the right and 5.1 cm on the left. Cystic changes of both kidneys. 2 nonobstructing calculi involving the left kidney, largest measuring 7 mm. No hydronephrosis of either kidney. The urinary bladder is partially distended with a volume of 57 ml. No shadowing stone or focal lesion. No significant postvoid residual. US/US renal bladder IMPRESSION: LEFT NEPHROLITHIASIS . NO HYDRONEPHROSIS. Impression dictated by: Cesar Butler Jr., D.O.06/02/2024 4:40 PM Dictation Location: [place] [address] Electronically authenticated by: [id number] Y Date: 06/02/2024 16:40 Dictated By: Cesar Butler M.D. Signed By: 06/02/24 1642 DD/ 1640 TD/TT: Customer Support Consultant: VINOD Reviewed date:05/29/2024 08:07:43 PM Interpretation: Performing Lab: Notes/Report: [facility] , Iron 41.0 50.0-170.0 ug/dL Performing Lab: see note ML - [facility] LB CBC AUTO DIFF Reviewed date:05/29/2024 08:07:43 PM Interpretation: Performing Lab: Notes/Report: The [facility] , White Blood Count 6.4 4.0-11.0 10 3/uL Red Blood Count 3.93 4.20-5.40 10 6/uL Hemoglobin 11.8 12.0-16.0 g/dL Hematocrit 35.9 36.0-48.0 % Mean Corpuscular Volume 91.3 81.0-99.0 fL Mean Corpuscular Hemoglobin 30.0 26.7-34.0 pg Mean Corpuscular HGB Conc 32.9 29.9-35.2 g/dL Red Cell Distribution Width 14.9 11.0-15.0 % Platelet Count 199 150-450 10 3/uL Mean Platelet Volume 10.5 9.5-13.5 fL Neutrophils Percent Auto 56.4 43.0-75.0 % Lymphocytes Percent Auto 30.0 20.5-60.0 % Monocytes Percent Auto 9.5 1.7-12.0 % Eosinophils Percent Auto 3.0 0.9-7.0 % Basophils Percent Auto 0.6 0.2-2.0 % Immature Granulocytes Pct Auto 0.5 0.0-0.5 % Neutrophils Absolute Auto 3.6 1.4-6.5 10 3/uL Lymphocytes Absolute Auto 1.9 1.2-3.8 10 3/uL Monocytes Absolute Auto 0.6 0.3-0.8 10 3/uL Eosinophils Absolute Auto 0.2 0.0-0.7 10 3/uL Basophils Absolute Auto 0.0 0.0-0.1 10 3/uL Immature Granulocytes Abs Auto 0.03 0.00-0.03 10 3/uL Performing Lab: see note ML - [facility] LB XR foot LT min 3V Reviewed date:05/03/2024 04:42:39 PM Interpretation: Performing Lab: Notes/Report: Source Facility: [place] [address] XRay Report Signed Patient: KYLEIGH PORTER MR#: [id number] : 1960 Acct:[id number] Age/Sex: 63 / F ADM Date: 04/30/24 Loc: RAD Attending Dr: Vicky Arnett M.D. Ordering Physician: Vicky Arnett M.D. Date of Service: 04/30/24 Procedure(s): XR foot LT min 3V Accession Number(s): [id number] cc: Vicky Arnett M.D. [place] [address] Patient Name: KYLEIGH PORTER MRN: [facility]:[id number] date: 1960 Sex: F Assigned Patient Location: [facility] Current Patient Location: Accession/Order Number: [id number] Exam Date: 04/30/2024 17:04 Report Date: 05/02/2024 07:07 At the request of: VICKY ANRETT Procedure: XR foot LT min 3V PROCEDURE: XR foot LT min 3V COMPARISON: None. HISTORY: Left foot pain FINDINGS: BONES:No fracture, acute abnormality, or significant arthropathy. SOFT TISSUES:Mild forefoot soft tissue swelling EFFUSION:None visible. OTHER: Negative. XR/XR foot LT min 3V IMPRESSION: No acute fracture Electronically authenticated by: DANII CARTER Date: 05/02/2024 07:07 Dictated By: Danii Carter M.D. Signed By: 05/02/24709 DD/ 6 TD/TT: Customer Support Consultant: [place] [address] XRay Report Signed Patient: JOSE PORTER RA MR#: [id number] : 1960 Acct:[id number] Age/Sex: 63 / F ADM Date: 04/30/24 Loc: RAD Attending Dr: Mayte Arnett M.D. Ordering Physician: Vicky Arnett M.D. Date of Service: 04/30/24 Procedure(s): XR vincent t LT min 3V Accession Number(s): [id number] cc: Vicky Arnett M.D. The [place] [address] Patient Name: KYLEIGH PORTER MRN: [id number]:[id number] date: 1960 Sex: F Assigned Patient Location: [facility] Current Patient Location: Accession/Order Numb er: [id number] Exam Date: 04/30/2024 17:04 Report Date: 05/02/2024 07:07 At the request of: VICKY ARNETT Procedure: XR foot L T min 3V PROCEDURE: XR foot L T min 3V COMPARISON: None. HISTORY: Left foot pain FINDINGS: BONES:No fracture, acute abnormality, or significant arthropathy. SOFT TISSUES:Mild forefoot soft tissue swelling EFFUSION:None visible. OTHER: Negative. XR/XR foot LT min 3V IMPRESSION: No acute fracture Electronically authenticated by: DANII CARTER Date: 05/02/2024 07:07 Dictated By: Bry Carter M.D. Signed By: 05/02/24709 DD/ 6 TD/TT: Customer Support Consultant: TSH Reviewed date:06/18/2024 08:05:41 PM Interpretation: Performing Lab: Notes/Report: The [facility] , Thyroid Stimulating Hormone 2.198 0.358-3.740 uIU/mL Performing Lab: see note ML - [facility] LB T4 Reviewed date:06/18/2024 08:05:41 PM Interpretation: Performing Lab: Notes/Report: The [facility] , T4 Thyroxine 10.40 4.80-13.90 ug/dL Performing Lab: see note ML - [facility] LB FREE T3 Reviewed date:06/18/2024 08:05:41 PM Interpretation: Performing Lab: Notes/Report: The [facility] , Free T3 2.68 2.18-3.98 pg/mL Performing Lab: see note - [facility] LB XR chest 2V Reviewed date:06/18/2024 08:05:41 PM Interpretation: Performing Lab: Notes/Report: Source Facility: [place] [address] XRay Report Signed Patient: KYLEIGH PORTER MR#: [id number] : 1960 Acct:[id number] Age/Sex: 63 / F ADM Date: 06/18/24 Loc: LAB Attending Dr: Vicky Arnett M.D. Ordering Physician: Vicky Arnett M.D. Date of Service: 06/18/24 Procedure(s): XR chest 2V Accession Number(s): [id number] cc: Vicky Arnett M.D. [place] [address] Patient Name: KYLEIGH PORTER MRN: [id number] date: 1960 Sex: F Assigned Patient Location: LAB Current Patient Location: LAB Accession/Order Number: [id number] Exam Date: 06/18/2024 18:40 Report Date: 06/18/2024 18:41 At the request of: VICKY ARNETT MD Procedure: XR chest 2V Chest 2 views CLINICAL HISTORY: Acute Bronchiolitis COMPARISON: Chest 07/08/2019 FINDINGS: Heart normal in size. Lungs are clear. No free air. XR/XR chest 2V IMPRESSION: NO ACUTE CARDIOPULMONARY ABNORMALITY. Impression dictated by: Cesar Butler Jr. D.OMarky06/18/2024 6:41 PM Dictation Location: [facility] Electronically authenticated by: [id number] Y Date: 06/18/2024 18:41 Dictated By: Cesar Butler M.D. Signed By: 06/18/241842 DD/ 40 TD/TT: Customer Support Consultant: [place] [address] XRay Report Signed Patient: JOSE PORTER RA MR#: [id number] : 1960 Acct:[id number] Age/Sex: 63 / F ADM Date: 06/18/24 Loc: LAB Attending Dr: Mayte Arnett M.D. Ordering Physician: Vicky Arnett M.D. Date of Service: 06/18/24 Procedure(s): XR madie st 2V Accession Number(s): [id number] cc: Vicky Arnett M.D. [place] [address] Patient Name: KYLEIGH PORTER MRN: [id number]:[id number] date: 1960 Sex: F Assigned Patient Location: LAB Current Patient Location: LAB Accession/Order Numb er: [id number] Exam Date: 06/18/2024 18:40 Report Date: 06/18/2024 18:41 At the request of: VICKY ARNETT MD Procedure: XR chest 2V Chest 2 views CLINICAL HISTORY: Ac lime Bronchiolitis COMPARISON: Chest 07/08/2019 FINDINGS: Heart normal in size . Lungs are clear. No free air. XR/XR chest 2V IMPRESSION: NO ACUTE CARDIOPULMONARY ABNORMALITY. Impression dictated by: Cesar Butler Jr., D.O.06/18/2024 6:41 PM Dictation Location: [facility] Electronically authenticated by: [id number] Y Date: 06/18/2024 18:41 Dictated By: Cesar Butler M.D. Signed By: 06/18/241842 DD/ 40 TD/TT: Customer Support Consultant: XR foot LT min 3V Reviewed date:06/18/2024 08:05:41 PM Interpretation: Performing Lab: Notes/Report: Source Facility: [place] [address] [place] [address] XRay Report Signed Patient: KYLEIGH PORTER MR#: [id number] : 1960 Acct:[id number] Age/Sex: 63 / F ADM Date: 06/18/24 Loc: LAB Attending Dr: Vicky Arnett M.D. Ordering Physician: Vicky Arnett M.D. Date of Service: 06/18/24 Procedure(s): XR foot LT min 3V Accession Number(s): [id number] cc: Vicky Arnett M.D. [place] [address] Patient Name: KYLEIGH PORTER MRN: [id number] date: 1960 Sex: F Assigned Patient Location: LAB Current Patient Location: LAB Accession/Order Number: [id number] Exam Date: 06/18/2024 18:41 Report Date: 06/18/2024 18:43 At the request of: VICKY ARNETT MD Procedure: XR foot LT min 3V LEFT FOOT - 3 views CLINICAL HISTORY: Left foot pain after fall 6 weeks ago. COMPARISON: None FINDINGS: Bones are grossly demineralized. Soft tissue swelling is present. There appears to be subluxation of the second metatarsal with respect to the cuneiforms possibly representing Lisfranc injury. Mild degenerative changes without bony erosions. XR/XR foot LT min 3V IMPRESSION: SUBLUXATION OF THE SECOND METATARSAL WITH RESPECT TO THE CUNEIFORMS POSSIBLY REPRESENTING LISFRANC INJURY. NO FRACTURE LINE IS SEEN. Impression dictated by: Cesar Butler Jr., D.O.06/18/2024 6:43 PM Dictation Location: [place] [address] Electronically authenticated by: [id number] Y Date: 06/18/2024 18:43 Dictated By: Cesar Butler M.D. Signed By: 06/18/241844 DD/ 42 TD/TT: Customer Support Consultant: The [address] [address] XRay Report Signed Patient: JOSE PORTER RA MR#: [id number] : 1960 Acct:[id number] Age/Sex: 63 / F ADM Date: 06/18/24 Loc: LAB Attending Dr: Mayte Arnett M.D. Ordering Physician: Vicky Arnett M.D. Date of Service: 06/18/24 Procedure(s): XR vincent t LT min 3V Accession Number(s): [id number] cc: Vicky Arnett M.D. The [address] [address] Patient Name: KYLEIGH PORTER MRN: [id number] date: 1960 Sex: F Assigned Patient Location: LAB Current Patient Location: LAB Accession/Order Numb er: [id number] Exam Date: 06/18/2024 18:41 Report Date: 06/18/2024 18:43 At the request of: VICKY ARNETT MD Procedure: XR foot L T min 3V LEFT FOOT - 3 views CLINICAL HISTORY: Le ft foot pain after fall 6 weeks ago. COMPARISON: None FINDINGS: Bones are grossly demineralized. Soft tissue swelling is present. There appears to be subluxation of the second metatarsal with respect to the cuneiforms possibly representing Lisfranc injury. Mild degenerative changes without bony erosions. XR/XR foot LT min 3V IMPRESSION: SUBLUXATION OF THE SECOND METATARSAL WITH RESPECT TO THE CUNEIFORMS POSSIBLY REPRESENTING LISFRAN C INJURY. NO FRACTURE LINE IS SEEN. Impression dictated by: Cesar Butler Jr., D.O.06/18/2024 6:43 PM Dictation Location: [place] [address] Electronically authenticated by: [id number] Y Date: 06/18/2024 18:43 Dictated By: Cesar Butler M.D. Signed By: 06/18/241844 DD/ 42 TD/TT: Customer Support Consultant: CT FOOT LT WO CON Reviewed date:07/11/2024 12:58:29 PM Interpretation: Performing Lab: Notes/Report: Source Facility: [place] [address] [place] [address] CT Scan Report Signed Patient: KYLEIGH PORTER MR#: [id number] : 1960 Acct:[id number] Age/Sex: 63 / F ADM Date: 07/11/24 Loc: CT Attending Dr: ROXANA LANE Ordering Physician: ROXANA LANE Date of Service: 07/11/24 Procedure(s): CT foot LT wo con Accession Number(s): [id number] cc: Vicky Arnett M.D. The [place] [address] Patient Name: KYLEIGH PORTER MRN: [id number] date: 1960 Sex: F Assigned Patient Location: CT Current Patient Location: CT Accession/Order Number: [id number] Exam Date: 07/11/2024 11:27 Report Date: 07/11/2024 11:40 At the request of: ROXANA LANE Procedure: CT foot LT wo con CT left foot without contrast TECHNIQUE: The CT exam was performed using one or more the following dose reduction techniques: Automated exposure control, adjustment of the MA and/or Kv according to patient size, or use of the iterative reconstruction technique. COMPARISON: No plain film imaging 06/18/2024 HISTORY: Follow-up imaging for concern for Lisfranc dislocation of the left foot There are chronic bony changes of the base of the second metatarsal present. Increased spacing between the second metatarsal and medial cuneiform identified. Chronic changes of the distal portion of the medial cuneiform. Chronic changes along distal portions of the middle and lateral cuneiforms. Mild chronic bony changes involving the medial portion of the base of the first metatarsal. Chronic bony changes involving the bases of the third and fourth metatarsals. Degenerative changes of the cuboid and metatarsal articulation. Articulation of the navicular and cuneiforms preserved. The calcaneal cuboid articulation preserved. Subtalar articulation preserved. Ankle mortise preserved. No acute displaced fracture identified. Soft tissues unremarkable. No gross tendon abnormality seen with CT examination. 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 No acute displaced fracture identified. Impression dictated by: Ethan Portillo M.D.07/11/2024 11:40 AM Dictation Location: [place] [address] Electronically authenticated by: [id number] Y Date: 07/11/2024 11:40 Dictated By: Ethan Portillo D.O. Signed By: 07/11/24 1142 DD/ 1140 TD/TT: Customer Support Consultant: [place] [address] CT Scan Report Signed Patient: JOSE PORTER RA MR#: [id number] : 1960 Acct:[id number] Age/Sex: 63 / F ADM Date: 07/11/24 Loc: CT Attending Dr: YI LANE Ordering Physician: ROXANA LANE Date of Service: 07/11/24 Procedure(s): CT vincent t LT wo con Accession Number(s): [id number] cc: Vicky Arnett M.D. [place] [address] Patient Name: KYLEIGH PORTER MRN: [facility]:[id number] date: 1960 Sex: F Assigned Patient Location: CT Current Patient Location: CT Accession/Order Numb er: [id number] Exam Date: 07/11/2024 11:27 Report Date: 07/11/2024 11:40 At the request of: ROXANA LANE Procedure: CT foot L T wo con CT left foot without contrast TECHNIQUE: The CT ex am was performed using one or more the following dose reduction techniques : Automated exposure control, adjustment of the MA and/or Kv according to paulino ent size, or use of the iterative reconstruction technique. COMPARISON: No plain film imaging 06/18/2024 HISTORY: Follow-up imaging for concern for Lisfranc dislocation of the left foot There are chronic latha ny changes of the base of the second metatarsal present. Increased spacing between the second metatarsal and medial cuneiform identified. Chronic changes of the distal portion of the medial cuneiform. Chronic changes dara g distal portions of the middle and lateral cuneiforms. Mild chronic bony changes involving the medial portion of the base of the first metatarsal. Chronic bony changes involving the bases of the third and fourth metatarsals. Degenerative changes of the cuboid and metatarsal articulation. Articulation of the navicular and cuneiforms preserved. The calcaneal cuboid articulation preserved. Subtalar articulation preserved. Ankle mortise preserved. No acute displaced fracture identified. Soft tissues unremarkable . No gross tendon abnormality seen with CT examination. 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 No acute displaced fracture identified. Impression dictated by: Ethan Portillo M.D.07/11/2024 11:40 AM Dictation Location: [place] [address] Electronically authenticated by: [id number] Y Date: 07/11/2024 11:40 Dictated By: Ethan Portillo D.O. Signed By: 07/11/24 1142 DD/ 1140 TD/TT: Customer Support Consultant: MM tomosynthesis screening B I Reviewed date:06/29/2024 04:20:06 PM Interpretation: Performing Lab: Notes/Report: Source Facility: [place] [address] Mammography Report Signed Patient: KYLEIGH PORTER MR#: [id number] : 1960 Acct:[id number] Age/Sex: 63 / F ADM Date: 06/27/24 Loc: MAMMO Attending Dr: Vicky Arnett M.D. Ordering Physician: Vicky Arnett M.D. Results: Date of Service: 06/27/24 Follow Up: Procedure(s): MM tomosynthesis screening BI Accession Number(s): [id number] cc: Vicky Arnett M.D. Patient Name: KYLEIGH PORTER MR#: [id number] : 1960 Exam Date: 06/27/2024 Ordering Doctor: DR Vicky Arnett . RADIOLOGY REPORT PROCEDURE: MM TOMOSYNTHESIS SCREENING BI COMPARISON: MM TOMOSYNTHESIS SCREENING BI, 04/11/2023. MG MAMM SHUKRI DIAG FU, 10/01/2017. MG MAMM SCREEN SHUKRI W CAD, 09/21/2017. INDICATIONS: Screening Calculator Name NCI Breast Cancer Risk Assessment Tool 5 Year Breast Cancer Risk 2.20% Lifetime Breast Cancer Risk 10.60% Personal Breast Cancer No Personal Ovarian Cancer No Treatments None Family Cancers Aunt-maternal with breast cancer at age 48. LOCATION: The [facility] BREAST COMPOSITION: The breasts are heterogeneously dense,which may obscure small masses. FINDINGS: RIGHT BREAST: No significant suspicious finding. LEFT BREAST: No significant suspicious finding. DIAGNOSTIC CATEGORY 1--NEGATIVE. RECOMMENDATIONS: ROUTINE MAMMOGRAM AND CLINICAL EVALUATION IN 12 MONTHS. PLEASE NOTE: A NORMAL MAMMOGRAM DOES NOT EXCLUDE THE POSSIBILITY OF BREAST CANCER. A CLINICALLY SUSPICIOUS PALPABLE LUMP SHOULD BE BIOPSIED. Dictated by: Ethan Portillo DO on 06/27/2024 at 16:13 Approved by: Ethan Portillo DO on 06/27/2024 at 16:20 Dictated By: Ethan Portillo D.O. Signed By: 06/27/24 1622 DD/ 20 TD/TT: Customer Support Consultant: [place] [address] Mammography Report Signed Patient: JOSE PORTER RA MR#: [id number] : 1960 Acct:[id number] Age/Sex: 63 / F ADM Date: 06/27/24 Loc: MAMMO Attending Dr: Mayte Arnett M.D. Ordering Physician: Vicky Arnett M.D. Results: Date of Service: 06/27/24 Follow Up: Procedure(s): MM tomosynthesis screening BI Accession Number(s): [id number] cc: Vicky Arnett M.D. Patient Name: KYLEIGH PORTER MR#: [id number] : 1960 Exam Date: 06/27/2024 Ordering Doctor: DR Vicky Arnett . RADIOLOGY REPORT PROCEDURE: MM TOMOSYNTHESIS SCREENING BI COMPARISON: MM TOMOSYNTHESIS SCREENING BI, 04/11/2023. MG MAMM SHUKRI DIAG FU, 10/01/2017. MG MA MM SCREEN SHUKRI W CAD, 09/21/2017. INDICATIONS: Screening Calculator Name NCI Breast Cancer Risk Assessment Tool 5 Year Breast Cancer Risk 2.20% Lifetime Breast Canc er Risk 10.60% Personal Breast Canc er No Personal Ovarian Can cer No Treatments None Family Cancers Aunt-maternal with breast cancer at age 48. LOCATION: The [facility] BREAST COMPOSITION: The breasts are heterogeneously dense,which may obscure small masses. FINDINGS: RIGHT BREAST: No significant suspicious finding. LEFT BREAST: No significant suspicious finding. DIAGNOSTIC CATEGORY 1--NEGATIVE. RECOMMENDATIONS: ROUTINE MAMMOGRAM AN D CLINICAL EVALUATION IN 12 MONTHS. PLEASE NOTE: A NAOMI L MAMMOGRAM DOES NOT EXCLUDE THE POSSIBILITY OF BREAST CANCER. A CLINICALLY SUSPICIOUS PALPABLE LUMP SHOULD BE BIOPSIED. Dictated by: Ethan Portillo DO on 06/27/2024 at 16:13 Approved by: Ethan Portillo DO on 06/27/2024 at 16:20 Dictated By: Ethan Portillo D.O. Signed By: 06/27/241621 DD/ 20 TD/TT: Customer Support Consultant: Reason For Referral Reason right ear foreign latha dy Diagnosis 1 Ear foreign body, ri ght, initial encounter (T16.1XXA) Referral Organization [facility] Referring Provider First Name Valerie Referring Provider Last Name Nelida Referring Provider [facility] Referred Provider Asha Castillo Referred Provider Specialty Otolaryngolo gy Referral Priority Routine Diagnosis 1 Well adult (Z00.00) Referral Organization [facility] Referring Provider First Name José Antonio Referring Provider Last Name Melquiades Referring Provider [facility] Referred Provider Neel Wu Referred Provider Specialty General Surg khadijah Referral Priority Routine Diagnosis 1 Foot pain (M79.673) Referral Organization [facility] Referring Provider First Name José Antonio Referring Provider Last Name Melquiades [facility] Jerry Cespedes Referred Provider Specialty Podiatry Referral Priority Routine Medications Medication SIG (Take, Route, Frequency, Duration) Notes Start Date End Date Status Levothyroxine Sodium 75 MCG 1 tablet in the morning on an empty stomach Orally Once a day for 90 days 05/30/2024 Active Meloxicam 15 MG 1 tablet Orally Once a day for 90 days 06/18/2024 Active Metoprolol Tartrate 100 mg TAKE 1 TABLET THREE TIMES A DAY WITH FOOD Active amLODIPine Besylate 10 mg TAKE 1 TABLET DAILY Active Pantoprazole Sodium 40 mg TAKE 1 TABLET DAILY Active Simvastatin 10 mg TAKE 1 TABLET DAILY Active traZODone HCl 100 MG 1 tablet at bedtime Orally at bedtime- 50mg at Dinner for 14 days Psych Active hydrALAZINE HCl 25 mg TAKE 1 TABLET THRE E TIMES A DAY WITH FOOD for 90 days Active buPROPion HCl ER (XL) 450 MG 1 tablet in the morning Orally Once a day Psych Active Benzonatate 200 MG 1 capsule as needed Orally Three times a day for 7 days 08/18/2024 Active Trospium Chloride ER 60 MG Oral for 30 Days Active clonazePAM 0.5 MG 1 tablet Orally Once a day 01/28/2024 Active Vitamin D3 50 MCG (1999 UT) 1 capsule Or ally Once a day Active Doxazosin Mesylate 2 mg TAKE 1 TABLET TW ICE A DAY Active Ferrous Sulfate 325 (65 Fe) MG 1 tablet Orally twice daily for 90 days 05/30/2024 Active Azithromycin 250 MG as directed Orally d aily for 5 days 08/18/2024 Active Immunizations Vaccine Route Administration Date Status Comme nts Flu, Flucelvax (15418) 6 mos and older, single-dose syringe IM Intramuscular 01/28/2024 Administered Social History Tobacco Use: Social History Observation Description Date Details (start date - stop date) Former Smoker 04/02/1980 - 04/02/2000 Tobacco Use/Smoking Question Answer Notes Patient is a former smoker When did you start smoking? 04/02/1980 When did you stop smoking? 04/02/2000 How long has it been since you last smoked? > 10 years Additional Findings: Tobacco Non-User Ex-light c igarette smoker (1-9/day) Alcohol Screen (Audit-C) Question Answer Notes Did you have a drink containing alcohol in the p ast year? No Points 0 Interpretation Negative AUDIT-C (Standard) Question Answer Notes Did you have a drink containing alcohol in the p ast year? No Points 0 Interpretation Negative Problems Problem Type SNOMED Code ICD Code Onset Dates Problem Status W/U Status Risk Notes Problem Hypothyroidism (16367049) Hypothyroidism (E03.9) Active confirmed Problem Sinusitis (57100224) Sinusitis (J32.9) Active confirmed Problem Foot pain (06569610) Foot pain (M79.673) Active confirmed Problem Diarrhea (65391142) Diarrhea (R19.7) Active confirmed Problem Well adult (319965958) Well adult (Z00.00) Active confirmed Problem Acute bronchiolitis (5938000) Acute bronchiolitis (J21.9) Active confirmed Problem Right tibial fracture (S82.201A) Active confirmed Vital Signs Temperature 97.6 degrees Fahrenheit 04/30/2024 Blood pressure diastolic 82 mm Hg 08/18/2024 Height 62 in 08/18/2024 Blood pressure systolic 142 mm Hg 08/18/2024 Weight 198.6 lbs 08/18/2024 BMI 36.32 kg/m2 08/18/2024 Encounters Encounter Location Date Provider Diagnosis [place] [address] [place] [address] 01/28/2024 Valerie Krause Encounter for immunization Z23 ; Ear foreign body, right, initial encounter T16.1XXA ; Skin cyst L72.9 and Skin lesion L98.9 [place] [address] [place] [address] 04/23/2024 José Antonio Hoy Well adult Z00.00 [place] [address] [place] [address] 06/18/2024 José Antonio Hoy Foot pain M79.673 an d Acute bronchiolitis J21.9 [place] [address] [place] [address] 07/08/2024 José Antonio Hoy Acute bronchiolitis J21.9 [place] [address] [place] [address] 08/18/2024 Valerie Krause Sinusitis J32.9 [place] [address] [place] [address] 04/30/2024 José Antonio Hoy Acute bronchiolitis J21.9 and Foot pain M79.673 [place] [address] [place] [address] 08/18/2024 Valerie Krause [facility] [address] [place] [address] 06/02/2024 José Antonio Remingtony [facility] [address] [place] [address] 06/02/2024 José Antonio Melquiades [facility] [address] [place] [facility] [address] 06/18/2024 José Antonio Remingtony Foot pain M79.673 [facility] [address] [place] [facility] [address] 06/29/2024 José Antonio Remingtony [facility] [address] [place] [facility] [place] [address] 07/08/2024 José Antonio Remingtony [facility] [address] [place] [place] [address] 07/11/2024 José Antonio Remingtonjosef Foot pain M79.673 [facility] [address] [place] [facility] [address] 04/16/2024 José Antonio Arnett [facility] [address] [place] [facility] [place] [address] 05/03/2024 José Antonio Melquiades [facility] [address] [place] [place] [address] 05/29/2024 José Antonio Arnett Iron deficiency E61. 1 ; Hypothyroidism E03.9 and Abnormal renal function N28.[address] [place] [address] 05/01/2024 José Antonio Arnett Assessments Encounter Date Diagnosis (ICD Code) Assessment Notes Treatment Notes Treatment Clinical Notes Section Notes 05/29/2024 Iron deficiency (ICD-10 - E61.1) 05/29/2024 Hypothyroidism (ICD-10 - E03.9) 01/28/2024 Encounter for immunization (ICD-10 - Z23) 06/18/2024 Foot pain (ICD-10 - M79.673) 07/11/2024 Foot pain (ICD-10 - M79.673) 01/28/2024 Ear foreign body, right, initial encounter (ICD-10 - T16.1XXA) 04/23/2024 Well adult (ICD-10 - Z00.00) 04/30/2024 Foot pain (ICD-10 - M79.673) 04/30/2024 Acute bronchiolitis (ICD-10 - J21.9) 06/18/2024 Foot pain (ICD-10 - M79.673) 06/18/2024 Acute bronchiolitis (ICD-10 - J21.9) 07/08/2024 Acute bronchiolitis (ICD-10 - J21.9) 08/18/2024 Sinusitis (ICD-10 - J32.9) 05/29/2024 Abnormal renal function (ICD-10 - N28.9) 01/28/2024 Skin cyst (ICD-10 - L72.9) back fu derm 01/28/2024 Skin lesion (ICD-10 - L98.9) left side mons pubis fu derm referral sheet given 01/28/2024 Other derm referral Plan Of Treatment Pending Test Test Name Order Date CMP (COMPLETE METABOLIC PANEL) CMP (COMPLETE METABOLIC PANEL) 4 HEMOGLOBIN A1C (GLYCO) 04/05/2023 HEMOGLOBIN A1C (GLYCO) 04/23/2024 IRON, TOTAL 04/23/2024 IRON, TOTAL 04/05/2023 LIPID PANEL (CHOL/TRIG/HDL/LDL) 04/05/19 24 LIPID PANEL (CHOL/TRIG/HDL/LDL) 04/23/19 25 CBC WITH DIFF 04/23/2024 CBC WITH DIFF 04/05/2023 VITAMIN D, 25 LEVEL (TOTAL) 04/05/2023 VITAMIN D, 25 LEVEL (TOTAL) 04/23/2024 MAMM Mammograms CAD 04/05/2023 Insulin Level 04/23/2024 STOOL OCCULT BLOOD 04/05/2023 US Renal and Bladder 05/29/2024 C. DIFF PCR 09/14/2022 GI PANEL (PCR) 09/14/2022 OVA AND PARASITE EXAMINATION 09/14/2022 US KIDNEYS BLADDER 05/02/2023 XR CHEST 2 V 06/18/2024 XR FOOT LT MIN 3 VIEWS 06/18/2024 XR FOOT LT MIN 3 VIEWS 04/30/2024 THYROID PANEL (T4/TSH/FREE T3) 5 THYROID PANEL (T4/TSH/FREE T3) 5 THYROID PANEL (T4/TSH/FREE T3) 4 THYROID PANEL (T4/TSH/FREE T3) 5 MM screening mammo BI 04/23/2024 CMP (COMP MET ANG[place]A) w/eGFR CKD-EPI 2024 Insurance Providers Payer Name Payer Address Payer Phone Subscriber Number Group Number Insured Name Patient Relationship to Insured Coverage Start Date Coverage End Date MMO [employer] [address] [place] [address] [id number] Kyleigh Porter Self - patient is the insured Medical (General) History Surgical History Surgery Date(Month/Year) Foreign body removed from Right ear krystyna l 02/12/2024 RT Tibial Plateau FX Reconstruction from Urethra to Bladder Polynoidal Cyst CHOLECYSTECTOMY Hematoma removal- Right Labia Colonoscopy- Dr Wu 07/02/2024 Hospitalization History Reason Date(Month/Year) UTI 12/2022
--- NOTE | 2024-11-11 11:29 | XR_ITS ---
The [address] [address] Patient Name: KATHY PORTER MRN: [id number] date: 1960 Sex: F Assigned Patient Location: [facility] Current Patient Location: [facility] Accession/Order Number: [id number] Exam Date: 11/11/2024 12:13 Report Date: 11/11/2024 12:14 At the request of: DARYN CULVER Procedure: XR abdomen 1V KUB: CLINICAL INFORMATION: Kidney stone COMPARISON: None FINDINGS: No definite urinary tract calculus. Phleboliths are seen within the pelvis. No bowel obstruction or free air. XR/XR abdomen 1V IMPRESSION: NO DEFINITE URINARY TRACT CALCULUS. Impression dictated by: Arley Hernandez Jr.OMarky 11/11/2024 12:14 PM Dictation Location: [place] [address] Electronically authenticated by: [id number] Y Date: 11/11/2024 12:14
== END 2024-11-11 11:24 | disposition home or self-care (01) ==
LOC: RAD 11:25
PROVIDERS: PCP Family Medicine; Visit Provider Student in an Organized Health Care Education/Training Program
DX: N20.0 Calculus of kidney (principal)
CPT/HCPCS: 74018

== ENCOUNTER 2024-12-03 15:56 | Outpatient (OUT) | payer OTHER, SELFPAY ==
--- OUTSIDE RECORDS SUMMARY | 2023-06-14 10:30 | XMS_ITS ---
Author Organization [facility] Address [address] [place] [address] Care Team Providers Care Poultry Farmer Name Role Phone ZakМария arnold Primary Care Provider REASON FOR VISIT bh therapy Encounters Encounter Location Date Provider Diagnosis [facility] [address] [place] [address] 06/14/2023 Мария Crespo Plan Of Treatment No Information Progress Notes * KATHY PORTER SDOB:[birth year] (63 yo F)Acc No.[id number]:06/14/2023 BH F/U - Patient Patient: KATHY ALMEIDA Provider: Samantha Crespo :1960 A ge:62 Y S ex:Female Date:06/14/2023 Address:[address] [place], [place] [id number] Subjective: * Chief Complaints: * 1 . Bh therapy. Objective: Therapeutic Interventions: Assessment: Plan: * Images: Care Plan Details* * Electronic signature of Rocky Crespo on 12/03/2024 at 03:59 PM EDT Sign off status: Pending * Provider: Samantha Crespo Date: 06/14/2023 Generated for Radha serna/Nitesh/eTransmitting on: 0 12/03/2024 03:59 PM EDT
--- OUTSIDE RECORDS SUMMARY | 2024-02-11 05:00 | XMS_ITS ---
Author Organization [facility] Address [address] [place] [address] Care Team Providers Care Waste Baler Name Role Phone Peter Arnett Primary Care Provider Kev Johnson [facility] [phone] REASON FOR VISIT RIGHT TIBIAL PLATEAU FX Encounters Encounter Location Date Provider Diagnosis [facility] Office [address] [facility] [place] [address] 02/11/2024 Kev Steen Plan Of Treatment No Information Progress Notes * KATHY PORTER SDOB:[birth year] (63 yo F)Acc No.[id number]:02/11/2024 Patient: KATHY ALMEIDA Provider: Fam Steen MD :1960 A ge:63 Y S ex:Female Date:02/11/2024 Address:[address] [place], [place] [id number] Pcp:Peter Arnett Subjective: * Chief Complaints: * 1 . RIGHT TIBIAL PLATEAU FX. * Medical History: Objective: * Vitals: Assessment: Plan: * Treatment: Forms: * Images: * Electronic signature of Manav Steen MD on 12/03/2024 at 02:59 PM EDT Sign off status: Pending * Provider: Fam Steen MD Date: 04/12/2023 Generated for Radha ng/Fasymone/eTransmitting on: 0 12/03/2024 02:59 PM EDT
--- OUTSIDE RECORDS SUMMARY | 2024-07-11 06:28 | XMS_ITS ---
Author Organization The [facility] in [place] Address [address] [address] Care Team Providers Care Personal Protection Specialist Name Role Phone José Antonio Arnett Primary Care Provider REASON FOR VISIT rf meloxicam Medications Medication SIG (Take, Route, Fr equency, Duration) Notes Start Date End Date Status Meloxicam 15 MG 1 tablet Orally Once a day for 90 days 06/18/2024 Active Encounters Encounter Location Date Provider Diagnosis [facility] [address] [place] [address] 07/11/2024 José Antonio Arnett Foot pain M79.67 3 Assessments Encounter Date Diagnosis (ICD Code) Assessment Notes Treatment Notes Treatment Clinical Notes Section Notes 07/11/2024 Foot pain (ICD-10 - M79.673) Plan Of Treatment Medication Medication Name Sig Start Date Stop Date Notes Meloxicam 15 MG 1 tablet Orally Once a day for 90 days Progress Notes * [place]OTTE, Kyleigh SDOB:[birth year] (63 yo F)Acc No.[id number]:07/11/2024 Patient: Kyleigh ALMEIDA :1960 A ge:63 Y S ex:Female Address:[address] [place] [id number] * Refills Refill Meloxicam Tablet, 15 MG, Orally, 90 Tablet, 1 tablet, Once a day, 90 days, Refills=3 * true * Date: Generated for Arturosae serna/Faxing/eTransmitting on: 0 12/03/2024 03:59 PM EDT
--- OUTSIDE RECORDS SUMMARY | 2024-08-18 09:45 | XMS_ITS ---
Author Organization [facility] in [place] Address [address] [place] [address] Care Team Providers Care Vp Of Product Name Role Phone José Antonio Arnett Primary Care Provider Valerie Krause Unavailable [phone] Allergies Allergen (clinical drug ingredient) Drug/Non Drug Allergy documented on EMR Reaction Allergy Type Onset Date Status Substance with sulfonamide structure and antibacterial mechanism of action (substance) Sulfa Antibiotics hives/ rash Drug Allergy Active REASON FOR VISIT sinus infection-dh pt Medications Medication SIG (Take, Route, Frequency, Duration) Notes Start Date End Date Status buPROPion HCl ER (XL) 450 MG 1 tablet in the morning Orally Once a day Psych Active clonazePAM 0.5 MG 1 tablet Orally Once a day 01/28/2024 Active Doxazosin Mesylate 2 mg TAKE 1 TABLET TW ICE A DAY Active amLODIPine Besylate 10 mg TAKE 1 TABLET DAILY Active Azithromycin 250 MG as directed Orally d aily for 5 days 08/18/2024 Active Benzonatate 200 MG 1 capsule as needed Orally Three times a day for 7 days 08/18/2024 Active Trospium Chloride ER 60 MG Oral for 30 Days Active Vitamin D3 50 MCG (1999 UT) 1 capsule Or ally Once a day Active Meloxicam 15 MG 1 tablet Orally Once a day for 90 days 06/18/2024 Active Metoprolol Tartrate 100 mg TAKE 1 TABLET THREE TIMES A DAY WITH FOOD Active Pantoprazole Sodium 40 mg TAKE 1 TABLET DAILY Active Simvastatin 10 mg TAKE 1 TABLET DAILY Active traZODone HCl 100 MG 1 tablet at bedtime Orally at bedtime- 50mg at Dinner for 14 days Psych Active Levothyroxine Sodium 75 MCG 1 tablet in the morning on an empty stomach Orally Once a day for 90 days 05/30/2024 Active Ferrous Sulfate 325 (65 Fe) MG 1 tablet Orally twice daily for 90 days 05/30/2024 Active hydrALAZINE HCl 25 mg TAKE 1 TABLET THRE E TIMES A DAY WITH FOOD Active Social History Tobacco Use: Social History Observation Description Date Details (start date - stop date) Former Smoker 04/02/1980 - 04/02/2000 Tobacco Use/Smoking Question Answer Notes Patient is a former smoker When did you start smoking? 04/02/1980 When did you stop smoking? 04/02/2000 How long has it been since you last smoked? > 10 years Additional Findings: Tobacco Non-User Ex-light c igarette smoker (1-9/day) Problems Problem Type SNOMED Code ICD Code Onset Dates Problem Status W/U Status Risk Notes Problem Sinusitis (62019779) Sinusitis (J32.9) Active confirmed Vital Signs Blood pressure systolic 142 mm Hg 08/19/19 25 Blood pressure diastolic 82 mm Hg 025 Height 62 in 08/18/2024 Weight 198.6 lbs 08/18/2024 BMI 36.32 kg/m2 08/18/2024 Encounters Encounter Location Date Provider Diagnosis [facility] [address] [place] [address] 08/18/2024 Valerie Krause Sinusitis J32.9 Assessments Encounter Date Diagnosis (ICD Code) Assessment Notes Treatment Notes Treatment Clinical Notes Section Notes 08/18/2024 Sinusitis (ICD-10 - J32.9) Plan Of Treatment Medication Medication Name Sig Start Date Stop Date Notes Azithromycin 250 MG as directed Orally daily for 5 days Benzonatate 200 MG 1 capsule as needed Orally Three times a day for 7 days 08/18/2024 Next Appt Details Follow Up: prn, Reason: Progress Notes * CHARLOTTEKyleigh SDOB:[birth year] (63 yo F)Acc No.[id number]:08/18/2024 Progress Note Patient: Kyleigh ALMEIDA Provider: Marci Krause ([facility]), SPECIAL ORDER JEWELER :1960 A ge:63 Y S ex:Female Date:08/18/2024 Address:[address] [place] [address], [phone] Pcp:José Antonio Arnett Check In:01:45 PM ESTCheck O ut:02:05 PM EST Subjective: * Chief Complaints: * 1 . Sinus infection-dh pt. * HPI: G eneral: patient presnts today for c/o sinus pressure and drainage , dry hacky cough, and chills. started 2 days ago no fever bodyaches and pressure in head cough. * ROS: E ENT: hearing changes d enies, denies. v isual changes d enies, denies. s wollen glands or neck lumps d enies, denies. s ore throat d enies, denies. d ifficulty swallowing d enies, denies. n ridge congestion a dmits to sinus drianage and pressure. e ar ache d enies, denies. G eneral/Constitutional: Fatigue a dmits. S leep problems d enies. A norexia d enies,. M alaise d enies, denies. F atigue or Weakness a dmits to fatigue. F ever or Chills a dmits. C ardiovascular: Lightheadedness/dizziness d enies,. S welling of legs, ankles, or feet d enies,. C hest pain d enies,. R espiratory: Chronic or frequent cough a dmits. D ry cough a dmits. P roductive cough d enies,. C hest pain d enies,. M usculoskeletal: Joint Stiffness d enies, denies. * Active Problem List R19.7 Diarrhea Modified On:09/14/2022W/U Status:confirmed Z00.00 Well adult Modified On:04/05/2023W/U Status:confirmed S82.201A Right tibial fractur e Modified On:10/03/2023W/U Status:confirmed J21.9 Acute bronchiolitis Modified On:04/30/2024W/U Status:confirmed E03.9 Hypothyroidism Modified On:05/30/2024W/U Status:confirmed M79.673 Foot pain Modified On:06/18/2024W/U Status:confirmed J32.9 Sinusitis Modified On:08/18/2024W/U Status:confirmed * Medical History: M edical History Verified. * Surgical History: H ematoma removal- Right Labia , CHOLECYSTECTOMY , Polynoidal Cyst , Reconstruction from Urethra to Bladder , RT Tibial Plateau FX , Foreign body removed from Right ear canal 02/12/2024, Colonoscopy- Dr Wu 07/02/2024. * Hospitalization/Major Diagno stic Procedure: U TI 12/2022. * Family History: F ather: alive, diagnosed with Diabetes mellitus without mention of complication, type II or unspecified type, not stated as uncontrolled. M other: , diagnosed with Diabetes mellitus without mention of complication, type II or unspecified type, not stated as uncontrolled. B homeer(s): alive. S on(s): alive. D macrina(s): alive. 2 brother(s) - healthy. 1 son(s) , 1 daughter(s) - healthy. . * Social History: T obacco Use: T obacco Use/Smoking P atient is a f ormer smoker W hen did you start smoking? 0 04/02/1980 W hen did you stop smoking? 0 04/02/2000 H ow long has it been since you last smoked??> 10 years A dditional Findings: Tobacco Non-User E x-light cigarette smoker (1-9/day) * Medications: T aking amLODIPine Besylate 10 mg Tablet TAKE 1 TABLET DAILY , Taking buPROPion HCl ER (XL) 450 MG Tablet Extended Release 24 Hour 1 tablet in the morning Orally Once a day , Notes to Pharmacist: Psych, Taking clonazePAM 0.5 MG Tablet 1 tablet Orally Once a day , Taking Doxazosin Mesylate 2 mg Tablet TAKE 1 TABLET TWICE A DAY , Taking Ferrous Sulfate 325 (65 Fe) MG Tablet 1 tablet Orally twice daily , Taking hydrALAZINE HCl 25 mg Tablet TAKE 1 TABLET THREE TIMES A DAY WITH FOOD , Taking Levothyroxine Sodium 75 MCG Tablet 1 tablet in the morning on an empty stomach Orally Once a day , Taking Meloxicam 15 MG Tablet 1 tablet Orally Once a day , Taking Metoprolol Tartrate 100 mg Tablet TAKE 1 TABLET THREE TIMES A DAY WITH FOOD , Taking Pantoprazole Sodium 40 mg Tablet Delayed Release TAKE 1 TABLET DAILY , Taking Simvastatin 10 mg Tablet TAKE 1 TABLET DAILY , Taking traZODone HCl 100 MG Tablet 1 tablet at bedtime Orally at bedtime- 50mg at Dinner , Notes to Pharmacist: Psych, Taking Trospium Chloride ER 60 MG Capsule Extended Release 24 Hour Oral , Taking Vitamin D3 50 MCG (1999) Capsule 1 capsule Orally Once a day , Discontinued Azithromycin 250 MG Tablet 2 tabs today then 1 tab Orally daily , Discontinued Benzonatate 200 MG Capsule 1 capsule Orally Three times a day , Medication List reviewed and reconciled with the patient * Allergies: S ulfa Antibiotics: hives/ rash - Allergy. Objective: * Vitals: W t:198.6lbs, Ht: 62 in, BP:142/82mm Hg, BMI:36.32Index, Ht-cm: 157.48 cm, Wt-k.08 kg. * Examination: P hysical Exam: GENERAL: w ell developed, well nourished, in no acute distress , well developed, well nourished, in no acute distress. HEAD: n ormocephalic/atraumatic , normocephalic/atraumatic.? EYES: p upils equal, round and reactive to light, conjunctivae and sclerae normal , pupils equal, round and reactive to light, conjunctivae and sclerae normal.? NOSE: n o deformity, discharge, inflammation, or lesions , pain/pressure on palpation to sinusus.. NECK: n byron supple, no masses or palpable cervical nodes, trachea midline, thyroid without nodules, masses, tenderness, or enlargement , neck supple, no masses or palpable cervical nodes, trachea midline, thyroid without nodules, masses, tenderness, or enlargement. CHEST: n o chest wall deformity, no chest wall tenderness , no chest wall deformity, no chest wall tenderness. LUNGS: n ormal respiratory effort and clear to auscultation, no wheezes, rales, or rhonchi, good air exchange , normal respiratory effort and clear to auscultation, no wheezes, rales, or rhonchi, good air exchange. CARDIO: r egular rate and rhythm, normal S1 and S2, nor murmur, rub, or gallop , regular rate and rhythm, normal S1 and S2, nor murmur, rub, or gallop. PULSES: n ormal capillary refill , normal capillary refill.? NEUROLOGIC: g rossly normal , grossly normal. SKIN: n o rashes, ulcerations, or suspicious lesions , no rashes, ulcerations, or suspicious lesions. LYMPH NODES: n o cervical adenopathy, nodes normal , no cervical adenopathy, nodes normal. MENTAL STATUS: a lert and oriented x3, normal mood and affect , alert and oriented x3, normal mood and affect. Assessment: * Assessment: 1. Fam antonio - J32.9 (Primary) Plan: * Treatment: * Follow Up: p rn * * Electronically signed by Jodee Krause NP, WEB SERVICES MANAGER.SPECIAL ORDER [id number] on 08/20/2024 at 10:17 AM EDT Sign off status: Completed Visit Status: C HK (Check Out) true * Provider: Marci Krause ([facility]), SPECIAL ORDER JEWELER Date: 08/18/2024 Generated for Radha serna/Nitesh/Chaosmitting on: 12/03/2024 03:58 PM EDT History and Physical Notes * HPI (History of Present Illness) Category Sub-Category Detail Notes Category Not es General patient presnts today for c/o sinus pressure and drainage , dry hacky cough, and chills. started 2 days ago no fever bodyaches and pressure in head cough Examination Category Sub-Category Detail Notes Category Not es Physical Exam GENERAL: well developed, well nourished, in no acute distress , well developed, well nourished, in no acute distress HEAD: normocephalic/atraum atic , normocephalic/atraumatic EYES: pupils equal, round and reactive to light, conjunctivae and sclerae normal , pupils equal, round and reactive to light, conjunctivae and sclerae normal NOSE: no deformity, discha rge, inflammation, or lesions , pain/pressure on palpation to sinusus. NECK: neck supple, no mass es or palpable cervical nodes, trachea midline, thyroid without nodules, masses, tenderness, or enlargement , neck supple, no masses or palpable cervical nodes, trachea midline, thyroid without nodules, masses, tenderness, or enlargement CHEST: no chest wall deform ity, no chest wall tenderness , no chest wall deformity, no chest wall tenderness LUNGS: normal respiratory e ffort and clear to auscultation, no wheezes, rales, or rhonchi, good air exchange , normal respiratory effort and clear to auscultation, no wheezes, rales, or rhonchi, good air exchange CARDIO: regular rate and rhy thm, normal S1 and S2, nor murmur, rub, or gallop , regular rate and rhythm, normal S1 and S2, nor murmur, rub, or gallop PULSES: normal capillary ref ill , normal capillary refill NEUROLOGIC: grossly normal , israel ssly normal SKIN: no rashes, ulceratio ns, or suspicious lesions , no rashes, ulcerations, or suspicious lesions LYMPH NODES: no cervical adenopat hy, nodes normal , no cervical adenopathy, nodes normal MENTAL STATUS: alert and oriented x 3, normal mood and affect , alert and oriented x3, normal mood and affect
--- OUTSIDE RECORDS SUMMARY | 2024-08-18 10:05 | XMS_ITS ---
Author Organization [facility] in [place] Address [address] [place] [address] Care Team Providers Care Gaming Cage Cashier Name Role Phone José Antonio Arnett Primary Care Provider [phone] Valerie Olivier [phone] REASON FOR VISIT zpak directions Encounters Encounter Location Date Provider Diagnosis [facility] [address] [place] [address] 08/18/2024 Valerie Krause Plan Of Treatment No Information Progress Notes * Kyleigh PORTER SDOB:[birth year] (63 yo F)Acc No.[id number]:08/18/2024 Patient: Kyleigh ALMEIDA :1960 A ge:63 Y S ex:Female Address:[address] [place] [phone] * true * Date: Generated for Radha serna/Nitesh/eTransmitting on: 0 12/03/2024 03:59 PM EDT
--- OUTSIDE RECORDS SUMMARY | 2024-12-02 23:59 | XMS_ITS | Continuity of Care Document ---
Author Organization [facility] Address Unknown Care Team Providers Care Paper Sorter Name Role Phone Melquiades Peter Primary Care Physician Encounter [facility] [id number] Date(s): 12/02/24 - 12/02/[address] [address] Discharge Disposition: Home (Routine DC) Attending Physician: Nicolle Beck PA-C Admitting Physician: Nicolle Beck PA-C Encounter Type: Lab Drop off Allergies, Adverse Reactions, Alerts Substance Criticality Severity Reaction Reaction Severity Status sulfa drugs High criticality Severe Rash A ctive Assessment and Plan Diagnostic Tests Pending * Urine Culture 12/02/24 Immunizations Given and Recorded Vaccine Date Status Refusal Reason SARS-CoV-2 (COVID-19) mRNA BNT-162b2 vax 03/29/21 Recorded SARS-CoV-2 (COVID-19) mRNA BNT-162b2 vax 07/13/20 Recorded SARS-CoV-2 (COVID-19) mRNA BNT-162b2 vax 06/21/20 Recorded Medications Auvelity 45 mg-105 mg oral tablet, extended release 1 tab(s) Start Date: 12/02/24 Status: Ordered Repeat number: 1 buPROPion 450 mg/24 hours (XL) oral tablet, extended release 450 mg = 1 tab(s), Oral, Daily, Refills(s) 0 Start Date: 06/04/24 Status: Ordered Repeat number: 1 ClonazePAM 0.5 mg Tab 0.5 mg = 1 tab(s), Oral, Daily, Refills(s) 0 Start Date: 08/16/23 Status: Ordered Repeat number: 1 doxazosin 2 mg Tab 2 mg = 1 tab(s), Oral, BID, Refills(s) 0 Start Date: 10/02/19 Status: Ordered Repeat number: 1 ferrous sulfate 325 mg Tab 325 mg = 1 tab(s), Oral, Daily, Refills(s) 0 Start Date: 06/17/24 Status: Ordered Repeat number: 1 hydrALAZINE 25 mg Tab 25 mg = 1 tab(s), Oral, TID, Refills(s) 0 Start Date: 07/05/22 Status: Ordered Repeat number: 1 levothyroxine 75 mcg (0.075 mg) Tab 75 mcg = 1 tab(s), Oral, Daily, Refills(s) 0 Start Date: 06/17/24 Status: Ordered Repeat number: 1 Melatonin 10 mg, Once a day (at bedtime) Start Date: 12/02/24 Status: Ordered Repeat number: 1 meloxicam 15 mg Tab 15 mg = 1 tab(s) Start Date: 12/02/24 Status: Ordered Repeat number: 1 metoprolol tartrate 100 mg Tab 100 mg = 1 tab(s), Oral, TID, Refills(s) 0 Start Date: 06/04/24 Status: Ordered Repeat number: 1 Norvasc 10 mg Tab 10 mg = 1 tab(s), Oral, Daily, Refills(s) 0 Start Date: 10/02/19 Status: Ordered Repeat number: [address] Tab 40 mg = 1 tab(s), Oral, Daily, Refills(s) 0 Start Date: 08/16/23 Status: Ordered Repeat number: 1 simvastatin 10 mg Tab 10 mg = 1 tab(s), Oral, qPM, 90 tab(s), 0 Refill(s), Refills(s) 0 Start Date: 08/16/23 Status: Ordered Repeat number: 1 traZODONE 100 mg Tab 100 mg = 1 tab(s), Oral, Once a day (at bedtime), Refills(s) 0 Start Date: 06/04/24 Status: Ordered Repeat number: 1 trospium 60 mg oral capsule, extended release 60 mg = 1 cap(s), Oral, qAM, # 90 cap(s), Refills(s) 3, Pharmacy: [facility], 157, cm, 06/17/24 13:14:00 EDT, Height/Length Dosing, 90.6, kg, 06/17/24 13:14:00 EDT, Weight Dosing Start Date: 11/10/24 Status: Ordered Quantity: 90.0 Unit: cap(s) Repeat number: 4 Vitamin D2 2000 intl units oral capsule 50 mcg = 1 cap(s), Oral, Daily, cap(s), Refills(s) 0 Start Date: 06/04/24 Status: Ordered Repeat number: 1 Vraylar 1.5 mg oral capsule 1.5 mg = 1 cap(s) Start Date: 12/02/24 Status: Ordered Repeat number: 1 Problem List Condition Confirmation Course Effective Dates Status H ealth Status Informant Abnormal urinalysis Confirmed Active Anemia Confirmed Active Bipolar disorder, current episode mixed Confirmed 03/07/16 - 08/25/18 Resolved BMI 36.0-36.9,adult Confirmed Active Chronic kidney disease Confirmed 07/18/19 Active Renal cyst Confirmed Active VICKIE (generalized anxiety disorder) Confirmed Active Hyperlipidemia, unspecified Confirmed 07/18/19 Active HTN (hypertension) Confirmed Active Hypothyroidism Confirmed Active Mixed incontinence Confirmed Active Kidney stones Confirmed Active Left flank pain Confirmed Active Mild depressed bipolar I disorder with mixed features Confirmed Active Class 3 obesity Confirmed Active Screening for malignant neoplasm of colon Confirmed Active DM II (diabetes mellitus, type II), controlled Confirmed Active Procedures Procedure Date Related Diagnosis Body Site Status Colonoscopy 07/02/24 Completed Colonoscopy 01/2016 Completed Kidney Blockage Surgical Procedure 2002 Completed Cholecystectomy 1997 Completed Fracture of tibia Complet ed Hematoma Completed Pilar cyst Completed Reconstruction from Urethra to Bladder Completed Removal of pilonidal cyst Completed Social History Social History Type Response Smoking Status Former smoker, quit more than 30 days ago;Never; Type: Cigarettes; Tobacco use per day: 0.25; Started at age: 20.0; Stopped at age: 32; entered on: 12/02/24 Sex Female Sex Representation Female (finding) Patient Care team information Care Team Personnel Name: ESVIN CID, UPENDER Member Role: Psychiatrist Address: [address] [place] [address] [address] [place] [address]- Telecom: Name: Peter Arnett MD Position: FT Physician Member Role: Primary Care Physician Address: [address] [place] [address] Telecom: Name: Мария ARAGON Member Role: [employer] Telecom: Care Team Related Persons Name: TERRIE PORTER Name: TERRIE PORTER Name: TERRIE PORTER Insurance Providers Guarantor name: KATHY PORTER Health Plan Information #: 1 Payer: [employer] Payer Identifier: [id number] Member Number: [id number] Group Number: [id number] Subscriber Identifier: [id number] Relationship to Subscriber: spouse Coverage Type: PRIVATE HEALTH INSURANCE Coverage Verification Date: Telecom: [phone] Address: [address] [address]
--- OUTSIDE RECORDS SUMMARY | 2024-12-02 23:59 | XMS_ITS | Continuity of Care Document ---
Author Organization [facility] Address [address] [place] [address] Care Team Providers Care Senior Data Architect Name Role Phone MelquiadesPeter Primary Care Physician Encounter [email or web address] [id number] Date(s): 12/02/24 - 12/02/24 [facility] [address] [address]- Encounter Diagnosis Renal cyst(Discharge Diagnosis) - 12/02/24 Mixed incontinence(Discharge Diagnosis) - 12/02/24 Abnormal urinalysis(Discharge Diagnosis) - 12/02/24 Left flank pain(Discharge Diagnosis) - 12/02/24 Kidney stones(Discharge Diagnosis) - 12/02/24 Discharge Disposition: Home (Routine DC) Attending Physician: Nicolle Beck PA-C Encounter Type: Clinic Allergies, Adverse Reactions, Alerts Substance Criticality Severity Reaction Reaction Severity Status sulfa drugs High criticality Severe Rash A ctive Immunizations Given and Recorded Vaccine Date Status [...] # 90 cap(s), Refills(s) 3, Pharmacy: [facility], 157, cm, 06/17/24 13:14:00 EDT, [...] 12/02/24 Sex Female Sex Representation Female (finding) Hospital Discharge Instructions Patient Education 12/02/2024 10:54:12 Urinary Incontinence Urinary Incontinence Urinary incontinence refers to a condition in which a person is unable to control where and when topass urine. A person with this condition will urinate involuntarily. This means that the person urinates when he or she does not mean to. What are the causes? This condition may be caused by: ??? Medicines. ??? Infections. ??? Constipation. ??? Overactive bladder muscles. ??? Weak bladder muscles. ??? Weak pelvic floor muscles. These muscles provide support for the bladder, intestine, and, in women, the uterus. ??? Enlarged prostate in men. The prostate is a gland near the bladder. When it gets too big, it can pinch the urethra. With the urethra blocked, the bladder can weaken and lose the ability to empty properly. ??? Surgery. ??? Emotional factors, such as anxiety, stress, or post-traumatic stress disorder (PTSD). ??? Spinal cord injury, nerve injury, or other neurological conditions. ??? Pelvic organ prolapse. This happens in women when organs move out of place and into the vagina.This movement can prevent the bladder and urethra from working properly. What increases the risk? The following factors may make you more likely to develop this condition: ??? Age. The older you are, the higher the risk. ??? Obesity. ??? Being physically inactive. ??? and childbirth. ??? Menopause. ??? Diseases that affect the nerves or spinal cord. ??? Long-term, or chronic, coughing. This can increase pressure on the bladder and pelvic floor muscles. What are the signs or symptoms? Symptoms may vary depending on the type of urinary incontinence you have. They include: ??? A sudden urge to urinate, and passing urine involuntarily before you can get to a bathroom (urge incontinence). ??? Suddenly passing urine when doing activities that force urine to pass, such as coughing, laughing, exercising, or sneezing (stress incontinence). ??? Needing to urinate often but urinating only a small amount, or constantly dribbling urine (overflow incontinence). ??? Urinating because you cannot get to the bathroom in time due to a physical disability, such as arthritis or injury, or due to a communication or thinking problem, such as Alzheimer's disease (functional incontinence). How is this diagnosed? This condition may be diagnosed based on: ??? Your medical history. ??? A physical exam. ??? Tests, such as: ??? Urine tests. ??? X-rays of your kidney and bladder. ??? Ultrasound. ??? CT scan. ??? Cystoscopy. In this procedure, a health care provider inserts a tube with a light and camera (cystoscope) through the urethra and into the bladder to check for problems. ??? Urodynamic testing. These tests assess how well the bladder, urethra, and sphincter can store and release urine. There are different types of urodynamic tests, and they vary depending on what thetest is measuring. To help diagnose your condition, your health care provider may recommend that you keep a log of when you urinate and how much you urinate. How is this treated? Treatment for this condition depends on the type of incontinence that you have and its cause. Treatment may include: ??? Lifestyle changes, such as: ??? Quitting smoking. ??? Maintaining a healthy weight. ??? Staying active. Try to get 150 minutes of moderate-intensity exercise every week. Ask your health care provider which activities are safe for you. ??? Eating a healthy diet. ??? Avoid high-fat foods, like fried foods. ??? Avoid refined carbohydrates like white bread and white rice. ??? Limit how much alcohol and caffeine you drink. ??? Increase your fiber intake. Healthy sources of fiber include beans, whole grains, and fresh fruits and vegetables. ??? Behavioral changes, such as: ??? Pelvic floor muscle exercises. ??? Bladder training, such as lengthening the amount of time between bathroom breaks, or using the bathroom at regular intervals. ??? Using techniques to suppress bladder urges. This can include distraction techniques or controlled breathing exercises. ??? Medicines, such as: ??? Medicines to relax the bladder muscles and prevent bladder spasms. ??? Medicines to help slow or prevent the growth of a man's prostate. ??? Botox injections. These can help relax the bladder muscles. ??? Treatments, such as: ??? Using pulses of electricity to help change bladder reflexes (electrical nerve stimulation). ??? For women, using a medical detail representative to prevent urine leaks. This is a small, tampon-like, disposable device that is inserted into the urethra. ??? Injecting collagen or carbon beads (bulking agents) into the urinary sphincter. These can help thicken tissue and close the bladder opening. ??? Surgery. Follow these instructions at home: Lifestyle ??? Limit alcohol and caffeine. These can fill your bladder quickly and irritate it. ??? Keep yourself clean to help prevent odors and skin damage. Ask your health care provider about special skin creams and cleansers that can protect the skin from urine. ??? Consider wearing pads or adult diapers. Make sure to change them regularly, and always change them right after experiencing incontinence. General instructions ??? Take igoe-bqi-lgtsxug and prescription medicines only as told by your health care provider. ??? Use the bathroom about every 3???4 hours, even if you do not feel the need to urinate. Try to empty your bladder completely every time. After urinating, wait a minute. Then try to urinate again. ??? Make sure you are in a relaxed position while urinating. ??? If your incontinence is caused by nerve problems, keep a log of the medicines you take and the times you go to the bathroom. ??? Keep all follow-up visits. This is important. Where to find more information ??? National [place] of Diabetes and Digestive and Kidney Diseases: www.niddk.nih.gov ??? [place] [facility] [employer]: www.urologyhealth.org Contact a health care provider if: ??? You have pain that gets worse. ??? Your incontinence gets worse. Get help right away if: ??? You have a fever or chills. ??? You are unable to urinate. ??? You have redness in your groin area or down your legs. Summary ??? Urinary incontinence refers to a condition in which a person is unable to control where and when to pass urine. ??? This condition may be caused by medicines, infection, weak bladder muscles, weak pelvic floor muscles, enlargement of the prostate (in men), or surgery. ??? Factors such as older age, obesity, and childbirth, menopause, neurological diseases,and chronic coughing may increase your risk for developing this condition. ??? Types of urinary incontinence include urge incontinence, stress incontinence, overflow incontinence, and functional incontinence. ??? This condition is usually treated first with lifestyle and behavioral changes, such as quittingsmoking, eating a healthier diet, and doing regular pelvic floor exercises. Other treatment optionsinclude medicines, bulking agents, medical devices, electrical nerve stimulation, or surgery. This information is not intended to replace advice given to you by your health care provider. Make sure you discuss any questions you have with your health care provider. Document Revised: 10/22/2020 Document Reviewed: 10/22/2020 [employer] Patient Education ?? 2023 [employer] 12/02/2024 10:54:09 Kidney Stones, Jzhr-[id number] Kidney Stones Kidney stones are rock-like masses that form inside of the kidneys. Kidneys are organs that make pee (urine). A kidney stone may move into other parts of the urinary tract, including: ??? The tubes that connect the kidneys to the bladder (ureters). ??? The bladder. ??? The tube that carries urine out of the body (urethra). Kidney stones can cause very bad pain and can block the flow of pee. The stone usually leaves your body through your pee. A doctor may need to take out the stone. What are the causes? Kidney stones may be caused by: ??? Too much calcium in the body. This may be caused by too much parathyroid hormone in the blood. ??? Uric acid crystals in the bladder. The body makes uric acid when you eat certain foods. ??? Narrowing of one or both of the ureters. ??? A kidney blockage that you were born with. ??? Past surgery on the kidney or the ureters. What increases the risk? You are more likely to develop this condition if: ??? You have had a kidney stone in the past. ??? Other people in your family have had kidney stones. ??? You do not drink enough water. ??? You eat a diet that is high in protein, salt (sodium), or sugar. ??? You are very overweight (obese). What are the signs or symptoms? Symptoms of a kidney stone may include: ??? Pain in the side of the belly, right below the ribs. Pain usually spreads to the groin. ??? Needing to pee often or right away. ??? Pain when peeing. ??? Blood in your pee. ??? Feeling like you may vomit (nauseous). ??? Vomiting. ??? Fever and chills. How is this treated? Treatment depends on the size, location, and makeup of the kidney stones. The stones will often pass out of the body when you pee. You may need to: ??? Drink more fluid to help pass the stone. ??? In some cases, you may be given fluids through an IV tube at the hospital. ??? Take medicine for pain. ??? Change your diet to help keep kidney stones from coming back. Sometimes, you may need: ??? A procedure to break up kidney stones using a beam of light (laser) or shock waves. ??? Surgery to remove the kidney stones. Follow these instructions at home: Medicines ??? Take tlmg-mla-hxtczav and prescription medicines only as told by your doctor. ??? Ask your doctor if the medicine prescribed to you requires you to avoid driving or using machinery. Eating and drinking ??? Drink enough fluid to keep your pee pale yellow. ??? You may be told to drink at least 8???10 glasses of water each day. This will help you pass thestone. ??? If told by your doctor, change your diet. You may be told to: ??? Limit how much salt you eat. ??? Eat more fruits and vegetables. ??? Limit how much meat, poultry, fish, and eggs you eat. ??? Follow instructions from your doctor about what you may eat and drink. General instructions ??? Collect pee samples as told by your doctor. You may need to collect a pee sample: ??? 24 hours after a stone comes out. ??? 8???12 weeks after a stone comes out, and every 6???12 months after that. ??? Strain your pee every time you pee. Use the strainer that your doctor recommends. ??? Do not throw out the stone. Keep it so that it can be tested by your doctor. ??? Keep all follow-up visits. You may need X-rays and ultrasounds to make sure the stone has come out. How is this prevented? To prevent another kidney stone: ??? Drink enough fluid to keep your pee pale yellow. This is the best way to prevent kidney stones. ??? Eat healthy foods. ??? Avoid certain foods as told by your doctor. You may be told to eat less protein. ??? Stay at a healthy weight. Where to find more information ??? National Kidney Foundation (NKF): kidney.org ??? [facility] (UCF): urologyhealth.org Contact a doctor if: ??? You have pain that gets worse or does not get better with medicine. Get help right away if: ??? You have a fever or chills. ??? You get very bad pain. ??? You get new pain in your belly. ??? You faint. ??? You cannot pee. This information is not intended to replace advice given to you by your health care provider. Make sure you discuss any questions you have with your health care provider. Document Revised: 11/10/2022 Document Reviewed: 11/10/2022 [employer] Patient Education ?? 2023 [employer] Follow Up Care 06/18/2024 11:29:17 With:Nicolle Beck PA-C, [facility] Address: When:Within 3 Month(s) Comments:w/ PVR Patient Care team information Care Team Personnel Name: ESVIN CID, UPENDER Member Role: Psychiatrist Address: [address] [place] [id number] Telecom: Name: Peter Arnett MD Position: FT Physician Member Role: Primary Care Physician Address: [address] [place] [id number] Telecom: Name: Мария ARAGON Member Role: Coat Hanger Shaper Machine Operator Telecom: Care Team Related Persons Name: TERRIE PORTER Name: TERRIE PORTER Name: TERRIE PORTER Insurance Providers Guarantor name: KATHY PORTER Health Plan Information #: 1 Payer: [employer] Payer Identifier: [id number] Member Number: [id number] Group Number: [id number] Subscriber Identifier: [id number] Relationship to Subscriber: spouse Coverage Type: PRIVATE HEALTH INSURANCE Coverage Verification Date: 24 Telecom: [phone] Address: [place] [id number] [place] [address]
--- OUTSIDE RECORDS SUMMARY | 2024-12-03 11:15 | XMS_ITS ---
Author Organization The [facility] in [place] Address [address] [place] [address] Care Team Providers Care Motor Tune Up Specialist Name Role Phone José Antonio Arnett Primary Care Provider [phone] Allergies Allergen (clinical drug ingredient) Drug/Non Drug Allergy documented on EMR Reaction Allergy Type Onset Date Status Substance with sulfonamide structure and antibacterial mechanism of action (substance) Sulfa Antibiotics hives/ rash Drug Allergy Active REASON FOR VISIT Psych Reccomended Appointment, Discuss Thyroid, Cold Intolerance, Weight Gain, Muscle Aches Medications Medication SIG (Take, Route, Frequency, Duration) Notes Start Date End Date Status Pantoprazole Sodium 40 mg TAKE 1 TABLET DAILY Active hydrALAZINE HCl 25 mg TAKE 1 TABLET THRE E TIMES A DAY WITH FOOD for 90 days Active Levothyroxine Sodium 75 MCG 1 tablet in the morning on an empty stomach Orally Once a day for 90 days 05/30/2024 Active Meloxicam 15 MG 1 tablet Orally Once a day for 90 days 06/18/2024 Active Metoprolol Tartrate 100 mg TAKE 1 TABLET THREE TIMES A DAY WITH FOOD Active Auvelity 45-105 MG 1 tablet in the morn ing Orally Once a day Active amLODIPine Besylate 10 mg TAKE 1 TABLET DAILY Active clonazePAM 0.5 MG 1 tablet Orally Once a day 01/28/2024 Active Doxazosin Mesylate 2 mg TAKE 1 TABLET TW ICE A DAY Active Ferrous Sulfate 325 (65 Fe) MG 1 tablet Orally twice daily for 90 days 05/30/2024 Active Vraylar 1.5 MG 1 capsule Orally Onc e a day Active Cefdinir 300 MG 2 capsule Orally onc e a day for 10 days 12/03/2024 Active Simvastatin 10 mg TAKE 1 TABLET DAILY Active traZODone HCl 100 MG 1 tablet at bedtime Orally at bedtime- 50mg at Dinner for 14 days Psych Active Trospium Chloride ER 60 MG Oral for 30 Days Active Vitamin D3 50 MCG (1999) 1 capsule Or ally Once a day Active Social History Tobacco Use: Social History [...] Tobacco Non-User Ex-light c igarette smoker (1-9/day) AUDIT-C (Standard) Question Answer Notes Did you have a drink containing alcohol in the p ast year? No Points 0 Interpretation Negative Problems Problem Type SNOMED Code ICD Code Onset Dates Problem Status W/U Status Risk Notes Problem Acute urinary tract infection (148878828) Acute UTI (N39.0) Active confirmed Vital Signs Blood pressure systolic 146 mm Hg 12/04/19 25 Blood pressure diastolic 80 mm Hg 025 Height 62 in 12/03/2024 Weight 210.6 lbs 12/03/2024 BMI 38.52 kg/m2 12/03/2024 Encounters Encounter Location Date Provider Diagnosis [facility] [address] [place] [address] 12/03/2024 José Antonio Hoy Acute UTI N39.0 and Hypothyroid E03.9 Assessments Encounter Date Diagnosis (ICD Code) Assessment Notes Treatment Notes Treatment Clinical Notes Section Notes 12/03/2024 Acute UTI (ICD-10 - N39.0) 12/03/2024 Hypothyroid (ICD-10 - E03.9) Plan Of Treatment Medication Medication Name Sig Start Date Stop Date Notes Cefdinir 300 MG 2 capsule Orally once a day for 10 days Pending Test Test Name Order Date THYROID PANEL (T4/TSH/FREE T3) Progress Notes * Kyleigh PORTER SDOB:[birth year] (63 yo F)Acc No.[id number]:12/03/2024 UNLOCKED PROGRESS NOTE Progress Note Patient: S TRAYER, Kyleigh S Provider: Vincent Arnett ([facility])MD :1960 A ge:63 Y S ex:Female Date:12/03/2024 Address:[address] [place] [address], [id number] Check In:02:58 PM ESTCheck O ut:03:48 PM EST Subjective: * Chief Complaints: * 1 . Psych Reccomended Appointment. 2. Discuss Thyroid. 3. Cold Intolerance, Weight Gain, Muscle Aches. * HPI: G eneral: IDusssed thyroid - Psych concerned abou tlow due to hairl loss and cold ALso paresthesia in back opf upper arm and upper leg. * ROS: E ENT: hearing changes d enies. v isual changes d enies.?non-healing mouth sores d enies. s wollen glands or neck lumps d enies. h oarseness d enies. s ore throat d enies. d ifficulty swallowing d enies. n ose bleeds d enies. n ridge congestion d enies. e ar ache d enies. e ar discharge?denies. r inging in ears d enies. l ight sensitivity d enies. e ye pain d enies. b lurring d enies. e ye irritation d enies. d ouble vision d enies.?vision loss d enies. G eneral/Constitutional: Sweats: D enies. F atigue d enies. S leep problems d enies. A norexia d enies. M alaise d enies. W eight loss d enies.?Fatigue or Weakness d enies. F ever or Chills d enies. C ardiovascular: Shortness of Breath w/lying flat d enies. L ightheadedness/dizziness d enies. C hest tightness/ heavy pressure d enies. S welling of legs, ankles, or feet d enies. W aking up with shortness of breath d enies. C hest pain denies. P alpitations d enies. W eight gain d enies. R espiratory: Chronic or frequent cough d enies. C oughing up blood?denies. D ifficulty breathing d enies. P roductive cough d enies. S noring?denies. S hortness of breath that awakens from sleep (PND) d enies. C hest pain d enies. S putum production d enies. W heezing d enies. M usculoskeletal: Joint pain d enies. J oint Fluid d enies. B ack pain d enies. K nee pain d enies. N byron pain d enies. J oint Stiffness d enies. M uscle cramps d enies. W eakness of muscles d enies. A rthritis d enies. M uscle aches d enies. P ain in shoulder(s) d enies. S wollen joints d enies. * Medical History: M edical History Verified. [...] unspecified type, not stated as uncontrolled. B rother(s): alive. S on(s): alive. D octanatolyer(s): alive. 2 brother(s) - healthy. 1 son(s) [...] Tobacco Non-User E x-light cigarette smoker (1-9/day) D rug/Alcohol: A RONA-C (Standard) D id you have a drink containing alcohol in the past year? N o P oints 0 I nterpretation N egative * Medications: T aking amLODIPine Besylate 10 mg Tablet TAKE 1 TABLET DAILY , Taking Auvelity(Dextromethorphan-buPROPion ER) 45-105 MG Tablet Extended Release 1 tablet in the morning Orally Once a day , Taking clonazePAM 0.5 MG Tablet 1 tablet [...] Oral , Taking Vitamin D3 50 MCG (2000 UT) Capsule 1 capsule Orally Once a day , Taking Vraylar(Cariprazine HCl) 1.5 MG Capsule 1 capsule Orally Once a day , Discontinued Azithromycin 250 MG Tablet as directed Orally daily , Discontinued Benzonatate 200 MG Capsule 1 capsule as needed Orally Three times a day , Discontinued buPROPion HCl ER (XL) 450 MG Tablet Extended Release 24 Hour 1 tablet in the morning Orally Once a day , Notes to Pharmacist: Psych, Medication List reviewed and reconciled with the patient * Allergies: S ulfa Antibiotics: hives/ rash - Allergy. Objective: * Vitals: W t:210.6lbs, Ht: 62 in, BP:146/80mm Hg, BMI:38.52Index, Ht-cm: 157.48 cm, Wt-k.53 kg. * Examination: P hysical Exam: GENERAL: w ell developed, well nourished, in no acute distress. HEAD: n ormocephalic/atraumatic. EYES: p upils equal, round and reactive to light, conjunctivae and sclerae normal. EARS: n o deformity or lesion of external ear, canals and TM appear normal bilaterally, TM's intact, not inflamed with normal light reflex, hearing grossly normal to conversational speech. NOSE: n o deformity, discharge, inflammation, or lesions.? MOUTH: m ucous membranes moist, normal oropharynx and posterior pharynx without lesions or exudates, tongue normal, dentition normal. NECK: n byron supple, no masses or palpable cervical nodes, trachea midline, thyroid without nodules, masses, tenderness, or enlargement. CHEST: n o chest wall deformity, no chest wall tenderness.? LUNGS: n ormal respiratory effort and clear to auscultation, no wheezes, rales, or rhonchi, good air exchange. CARDIO: r egular rate and rhythm, normal S1 and S2, nor murmur, rub, or gallop. PULSES: n ormal capillary refill. ABDOMEN: s oft, non-distended, non-tender, no masses. MUSCULOSKELETAL: n o deformity or scoliosis noted, normal range of motion, joints normal, no erythema, edema, effusion, or ecchymosis. EXTREMITY: n o clubbing, cyanosis, edema, or deformity with normal ROM in both upper and lower bilateral extremities. NEUROLOGIC: g rossly normal. SKIN: n o rashes, ulcerations, or suspicious lesions. LYMPH NODES: n o cervical adenopathy, nodes normal. MENTAL STATUS: a lert and oriented x3, normal mood and affect. Assessment: * Assessment: 1. A cute UTI - N39.0 (Primary) 2 . H ypothyroid - E03.9 Plan: * Treatment: 2. H ypothyroid L AB: THYROID PANEL (T4/TSH/FREE T3) * Preventive Medicine: Screenings/Counseling: B CO ACTION PLAN Above Normal BMI Follow-up D ietary management education, guidance, and counseling * * Electronic signature of José Antonio Arnett MD, [phone] on 12/03/2024 at 03:59 PM EDT Sign off status: Pending Visit Status: Elías EAST (Check Out) * Provider: Vincent Arnett ([facility])MD Date: 12/03/2024 Generated for Printi ng/Fatarikg/eTransmitting on: 12/03/2024 03:59 PM EDT History and Physical Notes * HPI (History of Present Illness) Category Sub-Category Detail Notes Category Not es General IDusssed thyroid - Psych concerned abou tlow due to hairl loss and cold ALso paresthesia in back opf upper arm and upper leg Examination Category Sub-Category Detail Notes Category Not es Physical Exam GENERAL: well developed, well nourished, in no acute distress HEAD: normocephalic/atraum atic EYES: pupils equal, round and reactive to light, conjunctivae and sclerae normal EARS: no deformity or lesi on of external ear, canals and TM appear normal bilaterally, TM's intact, not inflamed with normal light reflex, hearing grossly normal to conversational speech NOSE: no deformity, discha rge, inflammation, or lesions MOUTH: mucous membranes sudha st, normal oropharynx and posterior pharynx without lesions or exudates, tongue normal, dentition normal NECK: neck supple, no mass es or palpable cervical nodes, trachea midline, thyroid without nodules, masses, tenderness, or enlargement CHEST: no chest wall deform ity, no chest wall tenderness LUNGS: normal respiratory e ffort and clear to auscultation, no wheezes, rales, or rhonchi, good air exchange CARDIO: regular rate and rhy thm, normal S1 and S2, nor murmur, rub, or gallop PULSES: normal capillary ref ill ABDOMEN: soft, non-distended, non-tender, no masses RECTAL: MUSCULOSKELETAL: no deformity or scol iosis noted, normal range of motion, joints normal, no erythema, edema, effusion, or ecchymosis EXTREMITY: no clubbing, cyanosi s, edema, or deformity with normal ROM in both upper and lower bilateral extremities NEUROLOGIC: grossly normal SKIN: no rashes, ulceratio ns, or suspicious lesions LYMPH NODES: no cervical adenopat hy, nodes normal MENTAL STATUS: alert and oriented x 3, normal mood and affect
--- OUTSIDE RECORDS SUMMARY | 2024-12-03 11:41 | XMS_ITS ---
Author Organization The [facility] in [place] Address [address] [place] [address] Care Team Providers Care Toolsmith Name Role Phone José Antonio Arnett Primary Care Provider [phone] Encounters Encounter Location Date Provider Diagnosis [facility] [address] [place] [address] 12/03/2024 José Antonio Arnett Plan Of Treatment No Information Progress Notes * Kyleigh PORTER SDOB:[birth year] (63 yo F)Acc No.[id number]:12/03/2024 UNLOCKED PROGRESS NOTE Patient: Fam CARMICHAEL Kyleigh Otto :1960 A ge:63 Y S ex:Female Address:[address] [place] [id number] * * Date:
--- OUTSIDE RECORDS SUMMARY | 2024-12-03 15:59 | XMS_ITS | Patient Health Record ---
Author Organization The [facility] in [place] Address [address] [place] [address] Care Team Providers Care Fuel Operator Name Role Phone José Antonio Arnett Primary Care Provider Valerie Krause [phone] Allergies Allergen (clinical drug ingredient) Drug/Non Drug Allergy documented on EMR Reaction Allergy Type Onset Date Status Substance with sulfonamide structure and antibacterial mechanism of action (substance) Sulfa Antibiotics hives/ rash Drug Allergy Active Results Component Value Reference Range Notes XR knee RT 2V Reviewed date:2023 10:45:31 PM Interpretation: Performing Lab: Notes/Report: Source Facility: [place] [address] XRay Report Signed Patient: KYLEIGH PORTER MR#: [id number] : 1960 Acct:[id number] Age/Sex: 62 / F ADM Date: 12/10/23 Loc: EC Attending Dr: Kev Degroot M.D. Ordering Physician: Kev Degroot M.D. Date of Service: 12/10/23 Procedure(s): XR knee RT 2V Accession Number(s): [id number] cc: Kev Degroot M.D.; Vicky Arnett M.D. [place] [address] Patient Name: KYLEIGH PORTER MRN: [facility]:[id number] date: 1960 Sex: F Assigned Patient Location: Current Patient Location: Accession/Order Number: [id number] Exam Date: 12/10/2023 09:01 Report Date: 2023 [...] M.D. Signed By: 12/11/232218 DD/ 15 TD/TT: Magnetic Resonance Imaging Director: [place] [address] XRay Report Signed Patient: JOSE PORTER RA MR#: [id number] : 1960 Acct:[id number] Age/Sex: 62 / F ADM Date: 12/10/23 Loc: Attending Dr: Kev Degroot M.D. Ordering Physician: Kev Degroot M.D. Date of Service: 12/10/23 Procedure(s): XR kne e RT 2V Accession Number(s): [id number] cc: Kev Degroot M.D.; Vicky Arnett M.D. [place] [id number] Patient Name: KYLEIGH PORTER MRN: [facility]:[id number] date: 1960 Sex: F Assigned Patient Location: Current Patient Location: Accession/Order Numb er: [id number] Exam Date: 12/10/2023 09:01 Report Date: 2023 [...] M.D. Signed By: 12/11/232218 DD/ 15 TD/TT: Magnetic Resonance Imaging Director: XR foot LT min 3V Reviewed date:05/03/2024 04:42:39 PM Interpretation: Performing Lab: Notes/Report: Source Facility: [place] [address] XRay Report Signed Patient: KYLEIGH PORTER MR#: [id number] : 1960 Acct:[id number] Age/Sex: 63 / F ADM Date: 04/30/24 Loc: [facility] Attending Dr: Vicky Arnett M.D. Ordering Physician: Vicky Arnett M.D. Date of Service: 04/30/24 Procedure(s): XR foot LT min 3V Accession Number(s): [id number] cc: Vicky Arnett M.D. [place] [address] Patient Name: KYLEIGH PORTER MRN: [facility]:[id number] date: 1960 Sex: F Assigned Patient Location: [facility] Current Patient Location: Accession/Order Number: [id number] Exam Date: 04/30/2024 17:04 Report Date: 05/02/2024 07:07 At the request of: VICKY ARNETT Procedure: XR foot LT min 3V PROCEDURE: XR foot LT min 3V COMPARISON: None. HISTORY: Left foot pain FINDINGS: BONES:No fracture, acute abnormality, or significant arthropathy. SOFT TISSUES:Mild forefoot soft tissue swelling EFFUSION:None visible. OTHER: Negative. XR/XR foot LT min 3V IMPRESSION: No acute fracture Electronically authenticated by: DANII CARTER Date: 05/02/2024 07:07 Dictated By: Danii Carter M.D. Signed By: 05/02/2410 DD/ 6 TD/TT: Magnetic Resonance Imaging Director: [place] [address] XRay Report Signed Patient: JOSE PORTER RA MR#: [id number] : 1960 Acct:[id number] Age/Sex: 63 / F ADM Date: 04/30/24 Loc: RAD Attending Dr: Mayte Arnett M.D. Ordering Physician: Vicky Arnett M.D. Date of Service: 04/30/24 Procedure(s): XR vincent t LT min 3V Accession Number(s): [id number] cc: Vicky Arnett M.D. [place] [address] Patient Name: KYLEIGH PORTER MRN: [id number]:[id number] date: 1960 Sex: F Assigned Patient Location: [facility] Current Patient Location: Accession/Order Numb er: [id number] Exam Date: 04/30/2024 17:04 Report Date: 05/02/2024 [...] M.D. Signed By: 05/02/24709 DD/ 6 TD/TT: Magnetic Resonance Imaging Director: GLYCOHEMOGLOBIN A1C Reviewed date:05/29/2024 08:07:43 PM Interpretation: Performing Lab: Notes/Report: [facility] , Glycohemoglobin A1C 5.1 4.5-6.2 % ADA RECOMMENDED LIMIT 4.0 - 6.0 ADA THERAPEUTIC TARGET < 7.0 ACTION SUGGESTED > 7.0 Estimated Average Glucose 100 Performing Lab: see note ML - [facility] LB IRON Reviewed date:05/29/2024 08:07:43 PM Interpretation: Performing Lab: Notes/Report: [facility] , Iron 41.0 50.0-170.0 ug/dL Performing Lab: see note - [facility] LB VITAMIN D 25 OH Reviewed date:05/29/2024 08:07:43 PM Interpretation: Performing Lab: Notes/Report: [facility] , Vitamin D 58.5 <20 ng/mL Vit D deficient 20-<30 ng/mL Vit D insufficient 30-100 ng/mL Vit D sufficient >100 ng/mL Potential Toxicity Performing Lab: see note ML - [facility] US renal bladder Reviewed date:06/02/2024 09:40:19 PM Interpretation: Performing Lab: Notes/Report: Source Facility: [place] [address] Ultrasound Report Signed Patient: KYLEIGH PORTER MR#: [id number] : 1960 Acct:[id number] Age/Sex: 63 / F ADM Date: 06/02/24 Loc: US Attending Dr: Vicky Arnett M.D. Ordering Physician: Vicky Arnett M.D. Date of Service: 06/02/24 Procedure(s): US renal bladder Accession Number(s): [id number] cc: Vicky Arnett M.D. [place] [id number] Patient Name: KYLEIGH PORTER MRN: [id number]:[id number] date: 1960 Sex: F Assigned Patient Location: US Current Patient Location: US Accession/Order Number: [id number] Exam Date: 06/02/2024 15:53 Report Date: 06/02/2024 [...] Butler Jr., D.O.06/02/2024 4:40 PM Dictation Location: [place] [address] Electronically authenticated by: [id number] Y Date: 06/02/2024 16:40 Dictated By: Cesar Butler M.D. Signed By: 06/02/24 1642 DD/ 1640 TD/TT: Magnetic Resonance Imaging Director: [place] [address] Ultrasound Report Signed Patient: JOSE PORTER RA MR#: [id number] : 1960 Acct:[id number] Age/Sex: 63 / F ADM Date: 06/02/24 Loc: US Attending Dr: Mayte Arnett M.D. Ordering Physician: Vicky Arnett M.D. Date of Service: 06/02/24 Procedure(s): US iker al bladder Accession Number(s): [id number] cc: Vicky Arnett M.D. [place] [id number] Patient Name: KYLEIGH PORTER MRN: [id number]:[id number] date: 1960 Sex: F Assigned Patient Location: Current Patient Location: US Accession/Order Numb er: [id number] Exam Date: 06/02/2024 15:53 Report Date: 06/02/2024 [...] Butler Jr., D.O.06/02/2024 4:40 PM Dictation Location: [place] [address] Electronically authenticated by: [id number] Y Date: 06/02/2024 16:40 Dictated By: Cesar Butler M.D. Signed By: 06/02/24 1642 DD/ 1640 TD/TT: Magnetic Resonance Imaging Director: XR foot LT min 3V Reviewed date:06/18/2024 08:05:41 PM Interpretation: Performing Lab: Notes/Report: Source Facility: [place] [address] XRay Report Signed Patient: KYLEIGH PORTER MR#: [id number] : 1960 Acct:[id number] Age/Sex: 63 / F ADM Date: 06/18/24 Loc: LAB Attending Dr: Vicky Arnett M.D. Ordering Physician: Vicky Arnett M.D. Date of Service: 06/18/24 Procedure(s): XR foot LT min 3V Accession Number(s): [id number] cc: Vicky Arnett M.D. [place] [address] Patient Name: KYLEIGH PORTER MRN: [id number]:[id number] date: 1960 Sex: F Assigned Patient Location: LAB Current Patient Location: LAB Accession/Order Number: [id number] Exam Date: 06/18/2024 18:41 Report Date: 06/18/2024 [...] Butler Jr., D.O.06/18/2024 6:43 PM Dictation Location: [place] [address] Electronically authenticated by: [id number] Y Date: 06/18/2024 18:43 Dictated By: Cesar Butler M.D. Signed By: 06/18/241844 DD/ 42 TD/TT: Magnetic Resonance Imaging Director: [place] [address] XRay Report Signed Patient: JOSE PORTER RA MR#: [id number] : 1960 Acct:[id number] Age/Sex: 63 / F ADM Date: 06/18/24 Loc: LAB Attending Dr: Mayte Arnett M.D. Ordering Physician: Vicky Arnett M.D. Date of Service: 06/18/24 Procedure(s): XR vincent t LT min 3V Accession Number(s): [id number] cc: Vicky Arnett M.D. [place] [address] Patient Name: KYLEIGH PORTER MRN: [facility]:[id number] date: 1960 Sex: F Assigned Patient Location: LAB Current Patient Location: LAB Accession/Order Numb er: [id number] Exam Date: 06/18/2024 18:41 Report Date: 06/18/2024 [...] Butler Jr., D.O.06/18/2024 6:43 PM Dictation Location: [place] [address] Electronically authenticated by: [id number] Y Date: 06/18/2024 18:43 Dictated By: Cesar Butler M.D. Signed By: 06/18/241844 DD/ 42 TD/TT: Magnetic Resonance Imaging Director: XR chest 2V Reviewed date:06/18/2024 08:05:41 PM Interpretation: Performing Lab: Notes/Report: Source Facility: [place] [address] XRay Report Signed Patient: KYLEIGH PORTER MR#: [id number] : 1960 Acct:[id number] Age/Sex: 63 / F ADM Date: 06/18/24 Loc: LAB Attending Dr: Vicky Arnett M.D. Ordering Physician: Vicky Arnett M.D. Date of Service: 06/18/24 Procedure(s): XR chest 2V Accession Number(s): [id number] cc: Vicky Arnett M.D. [place] [address] Patient Name: KYLEIGH PORTER MRN: [id number] date: 1960 Sex: F Assigned Patient Location: LAB Current Patient Location: LAB Accession/Order Number: [id number] Exam Date: 06/18/2024 18:40 Report Date: 06/18/2024 18:41 At the request of: VICKY ARNETT MD Procedure: XR chest 2V Chest 2 views CLINICAL HISTORY: Acute Bronchiolitis COMPARISON: Chest 07/08/2019 FINDINGS: Heart normal in size. Lungs are clear. No free air. XR/XR chest 2V IMPRESSION: NO ACUTE CARDIOPULMONARY ABNORMALITY. Impression dictated by: Cesar Butler Jr., D.O.06/18/2024 6:41 PM Dictation Location: [facility]18 Electronically authenticated by: [id number] Y Date: 06/18/2024 18:41 Dictated By: Cesar Butler M.D. Signed By: 06/18/241842 DD/ 40 TD/TT: Magnetic Resonance Imaging Director: [place] [address] XRay Report Signed Patient: JOSE PORTER RA MR#: [id number] : 1960 Acct:[id number] Age/Sex: 63 / F ADM Date: 06/18/24 Loc: LAB Attending Dr: Mayte Arnett M.D. Ordering Physician: Vicky Arnett M.D. Date of Service: 06/18/24 Procedure(s): XR madie st 2V Accession Number(s): [id number] cc: Vicky Arnett M.D. [place] [address] Patient Name: KYLEIGH PORTER MRN: [id number]:[id number] date: 1960 Sex: F Assigned Patient Location: LAB Current Patient Location: LAB Accession/Order Numb er: [id number] Exam Date: 06/18/2024 18:40 Report Date: 06/18/2024 18:41 At the request of: VICKY ARNETT MD Procedure: XR chest 2V Chest 2 views CLINICAL HISTORY: Ac [place] Bronchiolitis COMPARISON: Chest 07/08/2019 FINDINGS: Heart normal in size . Lungs are clear. No free air. XR/XR chest 2V IMPRESSION: NO ACUTE CARDIOPULMONARY ABNORMALITY. Impression dictated by: Cesar Butler Jr., D.O.06/18/2024 6:41 PM Dictation Location: [facility]18 Electronically authenticated by: [id number] Y Date: 06/18/2024 18:41 Dictated By: Cesar Butler M.D. Signed By: 06/18/241842 DD/ 40 TD/TT: Magnetic Resonance Imaging Director: XR abdomen 1V Reviewed date:11/11/2024 08:24:27 PM Interpretation: Performing Lab: Notes/Report: Source Facility: [place] [address] [place] [address] XRay Report Signed Patient: KYLEIGH PORTER MR#: [id number] : 1960 Acct:[id number] Age/Sex: 63 / F ADM Date: 11/11/24 Loc: RAD Attending Dr: Daryn CULVER Ordering Physician: Daryn Beck Date of Service: 11/11/24 Procedure(s): XR abdomen 1V Accession Number(s): [id number] cc: Vicky Arnett M.D.; Daryn Beck [place] [address] Patient Name: KYLEIGH PORTER MRN: [id number] date: 1960 Sex: F Assigned Patient Location: [facility] Current Patient Location: [facility] Accession/Order Number: [id number] Exam Date: 11/11/2024 12:13 Report Date: 11/11/2024 12:14 At the request of: DARYN CULVER Procedure: XR abdomen 1V KUB: CLINICAL INFORMATION: Kidney stone COMPARISON: None FINDINGS: No definite urinary tract calculus. Phleboliths are seen within the pelvis. No bowel obstruction or free air. XR/XR abdomen 1V IMPRESSION: NO DEFINITE URINARY TRACT CALCULUS. Impression dictated by: Cesar Butler Jr., D.O. 11/11/2024 12:14 PM Dictation Location: [place] [address] Electronically authenticated by: [id number] Y Date: 11/11/2024 12:14 Dictated By: Cesar Butler M.D. Signed By: 11/11/24 1216 DD/ 1214 TD/TT: Magnetic Resonance Imaging Director: [place] [address] XRay Report Signed Patient: JOSE PORTER RA MR#: [id number] : 1960 Acct:[id number] Age/Sex: 63 / F ADM Date: 11/11/24 Loc: RAD Attending Dr: Daryn CULVER Ordering Physician: Daryn Beck Date of Service: 11/11/24 Procedure(s): XR abdomen 1V Accession Number(s): [id number] cc: Vicky Arnett M.D. ; Daryn Beck [place] [address] Patient Name: KYLEIGH PORTER MRN: [id number] date: 1960 Sex: F Assigned Patient Location: RAD Current Patient Location: RAD Accession/Order Numb er: [id number] Exam Date: 11/11/2024 12:13 Report Date: 11/11/2024 12:14 At the request of: DARYN CULVER Procedure: XR abdome n 1V KUB: CLINICAL INFORMATION : Kidney stone COMPARISON: None FINDINGS: No definit e urinary tract calculus. Phleboliths are seen within the pelvis. No bowel obstruction or free air. XR/XR abdomen 1V IMPRESSION: NO DEFINITE URINARY TRACT CALCULUS. Impression dictated by: Cesar Butler Jr., D.OMarky 11/11/2024 12:14 PM Dictation Location: [place] [address] Electronically authenticated by: [id number] Y Date: 11/11/2024 12:14 Dictated By: Cesar Butler M.D. Signed By: 11/11/24 1216 DD/ 1214 TD/TT: Magnetic Resonance Imaging Director: FABIO tomosynthesis screening B I Reviewed date:06/29/2024 04:20:06 PM Interpretation: Performing Lab: Notes/Report: Source Facility: [place] [address] [place] [address] Mammography Report Signed Patient: KYLEIGH PORTER MR#: [id number] : 1960 Acct:[id number] Age/Sex: 63 / F ADM Date: 06/27/24 Loc: MAMMO Attending Dr: Vicky Arnett M.D. Ordering Physician: Vicky Arnett M.D. Results: Date of Service: 06/27/24 Follow Up: Procedure(s): MM tomosynthesis screening BI Accession Number(s): [id number] cc: Vicky Arnett M.D. Patient Name: KYLEIGH PORTER MR#: [id number] : 1960 Exam Date: 06/27/2024 Ordering Doctor: [...] breast cancer at age 50. LOCATION: [facility] BREAST COMPOSITION: The breasts are heterogeneously dense,which [...] Portillo D.O. Signed By: 06/27/24 1622 DD/ 162 TD/TT: Magnetic Resonance Imaging Director: [place] [address] Mammography Report Signed Patient: JOSE PORTER RA MR#: [id number] : 1960 Acct:[id number] Age/Sex: 63 / F ADM Date: 06/27/24 Loc: MAMMO Attending Dr: Mayte Arnett M.D. Ordering Physician: Vicky Arnett M.D. Results: Date of Service: 06/27/24 Follow Up: Procedure(s): MM tomosynthesis screening BI Accession Number(s): [id number] cc: Vicky Arnett M.D. Patient Name: KYLEIGH PORTER MR#: [id number] : 1960 Exam Date: 06/27/2024 Ordering Doctor: DR Vicky Arnett . RADIOLOGY REPORT PROCEDURE: MM TOMOSYNTHESIS SCREENING BI COMPARISON: MM TOMOSYNTHESIS SCREENING BI, 04/11/2023. MG MAMM SHUKRI DIAG FU, 10/01/2017. MG MA MM SCREEN SHUKRI W CAD, 09/21/2017. INDICATIONS: Screening Calculator Name [facility] Breast Cancer Risk Assessment Tool 5 Year Breast Cancer Risk 2.20% Lifetime Breast Canc er Risk 10.60% Personal Breast Canc er No Personal Ovarian Can cer No Treatments None Family Cancers Aunt-maternal with breast cancer at age 48. LOCATION: [facility] BREAST COMPOSITION: The breasts are heterogeneously dense,which [...] Portillo D.O. Signed By: 06/27/24 1622 DD/ 162 TD/TT: Magnetic Resonance Imaging Director: TSH Reviewed date:06/18/2024 08:05:41 PM Interpretation: Performing Lab: Notes/Report: [facility] , Thyroid Stimulating Hormone 2.198 0.358-3.740 uIU/mL Performing Lab: see note ML - [facility] LB T4 Reviewed date:06/18/2024 08:05:41 PM Interpretation: Performing Lab: Notes/Report: [facility] , T4 Thyroxine 10.40 4.80-13.90 ug/dL Performing Lab: see note ML - [facility] LB FREE T3 Reviewed date:06/18/2024 08:05:41 PM Interpretation: Performing Lab: Notes/Report: [facility] , Free T3 2.68 2.18-3.98 pg/mL Performing Lab: see note ML - [facility] LB TSH Reviewed date:05/29/2024 08:07:43 PM Interpretation: Performing Lab: Notes/Report: [facility] , Thyroid Stimulating Hormone 6.193 0.358-3.740 uIU/mL Performing Lab: see note ML - [facility] LB T4 Reviewed date:05/29/2024 08:07:43 PM Interpretation: Performing Lab: Notes/Report: [facility] , T4 Thyroxine 7.80 4.80-13.90 ug/dL Performing Lab: see note ML - [facility] LB PROF 14(COMP METB) Reviewed date:05/29/2024 08:07:43 PM Interpretation: Performing Lab: Notes/Report: [facility] , Sodium 143 136-145 mmol/L Potassium 4.2 [...] 1.0 Performing Lab: see note ML - [facility] LB LIPID PROFILE Reviewed date:05/29/2024 08:07:43 PM Interpretation: Performing Lab: Notes/Report: [facility] , Triglycerides 121 <=150 mg/dL Cholesterol 150 [...] >11.0 HIGH RISK Performing Lab: see note - [facility] LB INSULIN Reviewed date:06/01/2024 12:55:58 PM Interpretation: Performing Lab: Notes/Report: [facility] , Insulin 17.9 2.6-24.9 uIU/mL Performed at: [facility] Lab[address] [id number] Vp Site: Hemanth Winslow PhD, Phone: [phone] Performing Lab: see note - [facility] LB FREE T3 Reviewed date:05/29/2024 08:07:43 PM Interpretation: Performing Lab: Notes/Report: [facility] , Free T3 2.87 2.18-3.98 pg/mL Performing Lab: see note - [facility] LB CBC AUTO DIFF Reviewed date:05/29/2024 08:07:43 PM Interpretation: Performing Lab: Notes/Report: [facility] , White Blood Count 6.4 4.0-11.0 10 [...] 3/uL Performing Lab: see note ML - [facility] LB PROF 14(COMP METB) Reviewed date:06/18/2024 08:05:41 PM Interpretation: Performing Lab: Notes/Report: [facility] , Sodium 141 136-145 mmol/L Potassium 4.7 [...] 1.1 Performing Lab: see note ML - [facility] LB CBC AUTO DIFF Reviewed date:06/18/2024 08:05:41 PM Interpretation: Performing Lab: Notes/Report: [facility] , White Blood Count 6.2 4.0-11.0 10 [...] Performing Lab: see note ML - [facility] CT FOOT LT WO CON Reviewed date:07/11/2024 12:58:29 PM Interpretation: Performing Lab: Notes/Report: Source Facility: [place] [address] [place] [address] CT Scan Report Signed Patient: KYLEIGH PORTER MR#: [id number] : 1960 Acct:[id number] Age/Sex: 63 / F ADM Date: 07/11/24 Loc: CT Attending Dr: ROXANA LANE Ordering Physician: ROXANA LANE Date of Service: 07/11/24 Procedure(s): CT foot LT wo con Accession Number(s): [id number] cc: Vicky Arnett M.D. The [place] [id number] Patient Name: KYLEIGH PORTER MRN: [id number] date: 1960 Sex: F Assigned Patient Location: CT Current Patient Location: CT Accession/Order Number: [id number] Exam Date: 07/11/2024 11:27 Report Date: 07/11/2024 [...] Ethan Portillo M.D.07/11/2024 11:40 AM Dictation Location: [place] [address] Electronically authenticated by: [id number] Y Date: 07/11/2024 11:40 Dictated By: Ethan Portillo D.O. Signed By: 07/11/24 1142 DD/ 1140 TD/TT: Magnetic Resonance Imaging Director: [place] [address] CT Scan Report Signed Patient: JOSE PORTER RA MR#: [id number] : 1960 Acct:[id number] Age/Sex: 63 / F ADM Date: 07/11/24 Loc: CT Attending Dr: YI LANE Ordering Physician: ROXANA LANE Date of Service: 07/11/24 Procedure(s): CT vincent t LT wo con Accession Number(s): [id number] cc: Vicky Arnett M.D. [place] [address] Patient Name: KYLEIGH PORTER MRN: [id number] date: 1960 Sex: F Assigned Patient Location: CT Current Patient Location: CT Accession/Order Numb er: [id number] Exam Date: 07/11/2024 11:27 Report Date: 07/11/2024 [...] Ethan Portillo M.D.07/11/2024 11:40 AM Dictation Location: [place] [address] Electronically authenticated by: [id number] Y Date: 07/11/2024 11:40 Dictated By: Ethan Portillo D.O. Signed By: 07/11/24 1142 DD/ 1140 TD/TT: Magnetic Resonance Imaging Director: Reason For Referral Reason right ear foreign latha dy Diagnosis 1 Ear foreign body, ri ght, initial encounter (T16.1XXA) Referral Organization [facility] Referring Provider First Name Valerie Referring Provider Last Name Nelida Referring Provider [facility] Referred Provider Asha Castillo Referred Provider Specialty Otolaryngolo gy Referral Priority Routine Diagnosis 1 Well adult (Z00.00) Referral Organization [facility] Referring Provider First Name José Antonio Referring Provider Last Name Melquiades Referring Provider [facility] Referred Provider Neel Wu Referred Provider Specialty General Surg khadijah Referral Priority Routine Diagnosis 1 Foot pain (M79.673) Referral Organization [facility] Referring Provider First Name José Antonio Referring Provider Last Name Melquiades Referring Provider [facility] Referred Provider Jerry Cespedes Referred Provider Specialty Podiatry Referral Priority Routine Medications Medication SIG (Take, Route, Frequency, Duration) Notes Start Date End Date Status Pantoprazole Sodium 40 mg TAKE 1 TABLET DAILY Active Vraylar 1.5 MG 1 capsule Orally Onc e a day Active Simvastatin 10 mg TAKE 1 TABLET DAILY Active Auvelity 45-105 MG 1 tablet in the morn ing Orally Once a day Active traZODone HCl 100 MG 1 tablet at bedtime Orally at bedtime- 50mg at Dinner for 14 days Psych Active amLODIPine Besylate 10 mg TAKE 1 TABLET DAILY Active Trospium Chloride ER 60 MG Oral for 30 Days Active clonazePAM 0.5 MG 1 tablet Orally Once a day 01/28/2024 Active Vitamin D3 50 MCG (2000 UT) 1 capsule Or ally Once a [...] a day for 90 days 05/30/2024 Active Cefdinir 300 MG 2 capsule Orally onc e a day for 10 days 12/03/2024 Active Meloxicam 15 MG 1 tablet Orally Once a day for 90 days 06/18/2024 Active Metoprolol Tartrate 100 mg TAKE 1 TABLET THREE TIMES A DAY WITH FOOD Active Immunizations Vaccine Route Administration Date Status Comme nts Flu, Flucelvax (33977) 6 mos and older, single-dose syringe (8106-7405) IM Intramuscular 01/28/2024 Administered Social History Tobacco [...] Status W/U Status Risk Notes Problem Hypothyroidism (35712618) Hypothyroidism (E03.9) Active confirmed Problem Sinusitis (49596805) Sinusitis (J32.9) Active confirmed Problem Foot pain (70693048) Foot pain (M79.673) Active confirmed Problem Diarrhea (93806777) Diarrhea (R19.7) Active confirmed Problem Well adult (731225193) Well adult (Z00.00) Active confirmed Problem Acute bronchiolitis (0606221) Acute bronchiolitis (J21.9) Active confirmed Problem Right tibial fracture (S82.201A) Active confirmed Problem Acute urinary tract infection (049647258) Acute UTI (N39.0) Active confirmed Vital Signs Temperature 97.6 degrees Fahrenheit 04/30/2024 Blood pressure diastolic 80 mm Hg 12/03/2024 Height 62 in 12/03/2024 Blood pressure systolic 146 mm Hg 12/03/2024 Weight 210.6 lbs 12/03/2024 BMI 38.52 kg/m2 12/03/2024 Encounters Encounter Location Date Provider Diagnosis [facility] [address] [place] [address] 12/03/2024 José Antonio Arnett [facility] [address] [place] [address] 07/11/2024 José Antonio Hoy Foot pain M79.673 [facility] [address] [place] [address] 08/18/2024 Valerie Krause [facility] [address] [place] [address] 05/29/2024 José Antonio Macedoy Iron deficiency E61. 1 ; Hypothyroidism E03.9 and Abnormal renal function N28.9 [facility] [address] [place] [address] 06/02/2024 José Antonio Arnett [facility] [address] [place] [address] 06/02/2024 José Antonio Arnett [facility] [address] [place] [address] 06/18/2024 José Antonio Hoy Foot pain M79.673 [facility] [address] [place] [address] 06/29/2024 José Antonio Arnett [facility] [address] [place] [address] 07/08/2024 José Antonio Arnett [facility] [address] [place] [address] 04/16/2024 José Antonio Arnett [facility] [address] [place] [address] 05/03/2024 José Antonio Arnett [facility] [address] [place] [address] 05/01/2024 José Antonio Arnett [facility] [address] [place] [address] 12/03/2024 José Antonio Hoy Acute UTI N39.0 and Hypothyroid E03.9 [facility] [address] [place] [address] 01/28/2024 Valerie Krause Encounter for immunization Z23 ; Ear foreign body, right, initial encounter T16.1XXA ; Skin cyst L72.9 and Skin lesion L98.9 [address] [place] [address] 04/23/2024 José Antonio Hoy Well adult Z00.00 [address] [place] [address] 06/18/2024 José Antonio Hoy Foot pain M79.673 an d Acute bronchiolitis J21.9 [address] [place] [address] 07/08/2024 José Antonio Hoy Acute bronchiolitis J21.9 [address] [place] [address] 08/18/2024 Valerie Krause Sinusitis J32.9 [address] [place] [address] 04/30/2024 José Antonio Hoy Acute bronchiolitis J21.9 and Foot pain M79.673 Assessments Encounter Date Diagnosis (ICD Code) Assessment Notes Treatment Notes Treatment Clinical Notes Section Notes 05/29/2024 Iron deficiency (ICD-10 - E61.1) 05/29/2024 Hypothyroidism (ICD-10 - E03.9) 01/28/2024 Encounter for immunization (ICD-10 - Z23) 01/28/2024 Ear foreign body, right, initial encounter (ICD-10 - T16.1XXA) 04/23/2024 Well adult (ICD-10 - Z00.00) 04/30/2024 Acute bronchiolitis (ICD-10 - J21.9) 04/30/2024 Foot pain (ICD-10 - M79.673) 06/18/2024 Foot pain (ICD-10 - M79.673) 06/18/2024 Acute bronchiolitis (ICD-10 - J21.9) 07/08/2024 Acute bronchiolitis (ICD-10 - J21.9) 08/18/2024 Sinusitis (ICD-10 - J32.9) 12/03/2024 Acute UTI (ICD-10 - N39.0) 12/03/2024 Hypothyroid (ICD-10 - E03.9) 06/18/2024 Foot pain (ICD-10 - M79.673) 07/11/2024 Foot pain (ICD-10 - M79.673) 01/28/2024 Skin cyst (ICD-10 - L72.9) back fu derm 05/29/2024 Abnormal renal function (ICD-10 - N28.9) 01/28/2024 Skin lesion (ICD-10 - L98.9) left side mons pubis fu derm referral sheet given 01/28/2024 Other derm referral Plan Of Treatment Pending Test Test Name Order Date CMP (COMPLETE METABOLIC PANEL) CMP (COMPLETE METABOLIC PANEL) HEMOGLOBIN A1C (GLYCO) 04/05/2023 HEMOGLOBIN A1C (GLYCO) [...] T3) 4 THYROID PANEL (T4/TSH/FREE T3) 5 THYROID PANEL (T4/TSH/FREE T3) 5 MM screening mammo BI 04/23/2024 CMP (COMP MET ANGELA) w/eGFR CKD-EPI 2024 Insurance Providers Payer Name Payer Address Payer Phone Subscriber Number Group Number Insured Name Patient Relationship to Insured Coverage Start Date Coverage End Date MMO [employer] [address] [place] [address] [id number] Kyleigh Porter Self - patient is the insured Medical (General) History Surgical History Surgery Date(Month/Year) RT Tibial Plateau FX Reconstruction from Urethra to Bladder Polynoidal Cyst CHOLECYSTECTOMY Hematoma removal- Right Labia Colonoscopy- Dr Wu 07/02/2024 Foreign body removed from Right ear krystyna l 02/12/2024 Hospitalization History Reason Date(Month/Year) UTI 12/2022
--- OUTSIDE RECORDS SUMMARY | 2024-12-03 15:59 | XMS_ITS | Encounter Summary ---
Author Organization [facility] Address [address] [place] [address] Care Team Providers Care Allied Health Teacher Name Role Phone Valerie Krause MD Unavailable [phone] Peter Arnett MD Primary Care Provider [phone] Encounter Details Date Type Department Care Team (Late Contact Info) Description 09/29/2024 External Result Encounter [facility] External Department Unsolicited Gilmer Rivera DPM [address] [address] Social History Tobacco Use Types Packs/Day Years [...] EDT Office Visit [facility] [address] [place] [address] Gilmer Rivera DPM [address] [address] documented as of this encounter Procedures Procedure [...] Portillo M.D. 09/29/2024 10:53 PM Dictation Location: [facility] Transcribed By: PWS 09/29/242252 Dictated By: Ethan Portillo DO 09/29/242247 Signed By: <Electronically signed by Ethan Portillo DO in OV> 09/29/242252 Narrative 09/29/2024 10:56 PM EDT [facility] [place] [address] CT Scan Report Signed Patient: Kyleigh Adame MR#: [id number] 827 : 1960 Acct:[id number] Age/Sex: 63 / F ADM Date: 09/29/24 Loc: CT Room: Type: [facility] Attending Dr: Gilmer Rivera DPM Copies [...] con Procedure Note Radiology, Radiologist, - 10/09/2024 [facility] Main [place] [address] [place], [place] [id number] CT Scan Report Signed Patient: Kyleigh Adame SMR#: [id number] 827 : 1960Acct:[id number] Age/Sex: 63 / FADM Date: 09/29/24 Loc: CT Room:Type: [facility] Attending Dr: Gilmer Rivera DPM Copies [...] Portillo M.D. 09/29/2024 10:53 PM Dictation Location: [facility] Transcribed By: PWS 09/29/242252 Dictated By: Ethan Portillo DO 09/29/24 2248 Signed By: <Electronically signed by Ethan Portillo DO in OV> 09/29/242252 Gilmer Rivera DPM IMG CT PROCEDURES Edited Re sult - Final documented in this encounter Visit Diagnoses Not on filedocumented in this encounter Care Teams Allied Health Teacher Relationship Specialty Start Date End Date Peter Arnett MD [address] [place] [address] PCP - General Family Medicine 02/05/24 Valerie Krause MD [address] [place] [address] Referring Physician Family Medicine 01/29/24 documented as of this encounter
--- OUTSIDE RECORDS SUMMARY | 2024-12-03 15:59 | XMS_ITS | Encounter Summary ---
Author Organization [facility] Address [address] [place] [address] Care Team Providers Care Pneumatic Tube Operator Name Role Phone Valerie Krause MD Unavailable [phone] Peter Arnett MD Primary Care Provider [phone] Encounter Details Date Type Department Care Team (Late Contact Info) Description 12/09/2014 Abstract [facility] [address] [place] [address] Lilibeth Pena, [facility] [address] [place] [address] Social History Tobacco Use Types Packs/Day Years [...] EDT Office Visit [facility] [address] [place] [address] Gilmer Rivera DPM [address] [address] documented as of this encounter Visit Diagnoses Not on filedocumented in this encounter Care Teams Pneumatic Tube Operator Relationship Specialty Start Date End Date Peter Arnett MD [address] [place] [address] PCP - General Family Medicine 02/05/24 Valerie Krause MD [address] [place] [address] Referring Physician Family Medicine 01/29/24 documented as of this encounter
--- OUTSIDE RECORDS SUMMARY | 2024-12-03 15:59 | XMS_ITS | Patient Health Record ---
Author Organization [facility] Address [address] [place] [address] Care Team Providers Care Hydrotel Operator Name Role Phone Мария Crespo Primary Care Provider Reason For Referral No Information Social History [...] Status W/U Status Risk Notes Problem Bipolar disorder ([id number]) Bipolar 1 disorder, depressed (F31.9) Active confirmed Plan Of Treatment No Information Insurance Providers Payer Name Payer Address Payer Phone Subscriber Number Group Number Insured Name Patient Relationship to Insured Coverage Start Date Coverage End Date [facility] [facility] [address] [place] [address] [phone] [id number] TERRIE PORTER Spouse - patient is the spouse of the insured 1
--- OUTSIDE RECORDS SUMMARY | 2024-12-03 15:59 | XMS_ITS | Patient Health Record ---
Author Organization [facility] Address [address] [place] [address] Care Team Providers Care Attendant Honor Bar Name Role Phone MelquiadesJosé AntonioPeter Primary Care Provider Kev Johnson Unavailable [phone] Reason For Referral No Information Medications Medication [...] Problem Status W/U Status Risk Notes Problem [id number] Closed fracture of right tibial plateau, initial encounter (S82.141A) Active confirmed Problem [id number] Closed disp bicondylar fracture of right tibia with routine healing (S82.141D) Active confirmed Encounters Encounter Location Date Provider Diagnosis [facility] Office [address] [place] [address] [place] [address] 12/10/2023 Kev Steen Closed disp bicondylar fracture [...] Toilet Seat OTS [facility]- K[facility] 2VIEW RIGHT [id number] 09/03/2023 [facility] RIGHT [address] 12/10/2023 DME - Wheeled Walker 08/20/2023 [facility]- [facility] 2[facility] RIGHT [address] 12/10/2023 Insurance Providers Payer Name Payer Address Payer Phone Subscriber Number Group Number Insured Name Patient Relationship to Insured Coverage Start Date Coverage End Date [employer] [place] [address] [address] [place] [address] [id number] KATHY PORTER Self - patient is the insured
--- OUTSIDE RECORDS SUMMARY | 2024-12-03 15:59 | XMS_ITS | Encounter Summary ---
Author Organization [facility] Address [address] [place] [address] Care Team Providers Care Axle Turner Name Role Phone Valerie Krause MD Unavailable [phone] Peter Arnett MD Primary Care Provider [phone] Encounter Details Date Type Department Care Team (Late Contact Info) Description 10/17/2024 Abstract [facility] [address] [place] [address] Gilmer Rivera DPM [address] [address] Social History Tobacco Use Types Packs/Day Years [...] Office Visit [facility] [address] [place] [address] Gilmer Rivera DPM [address] [address] documented as of this encounter Visit Diagnoses Not on filedocumented in this encounter Care Teams Axle Turner Relationship Specialty Start Date End Date Peter Arnett MD [address] [place] [address] PCP - General Family Medicine 02/05/24 Valerie Krause MD [address] [place] [address] Referring Physician Family Medicine 01/29/24 documented as of this encounter
--- OUTSIDE RECORDS SUMMARY | 2024-12-03 15:59 | XMS_ITS | Clinical Summary ---
Author Organization [facility] Address [address] [place], [place] [address] Care Team Providers Care Manager Document Name Role Phone Peter Arnett MD Primary Care Provider [phone] Allergies Active Allergy Reactions Criticality Noted Date [...] - 5.6 % 01/19/2016 9:00 PM EDT [facility] Estimated Average Glucose 100 mg/dL 01/19/2016 9:01 PM EDT [facility] Comment: eAG: (Estimated average glucose) is a calculated value from HgbA1c and is sales representative printing of the average blood glucose level in the last 2-3 month period. Blood specimen (specimen) WHOLE BLOOD SPECIMEN / Unknown 01/19/2016 4:29 PM EDT 01/19/2016 4:52 PM EDT us Maricarmen Mccauley MD [facility] Final R esult [facility] [address] [address] from Last 3 Months or Most Recently Relevant to Health Maintenance Insurance MMO [employer] PPO Care Teams Manager Document Relationship Specialty Start Date End Date Peter Arnett MD PCP - General Family Medicine 10/12/14
--- OUTSIDE RECORDS SUMMARY | 2024-12-03 15:59 | XMS_ITS | Clinical Summary ---
Author Organization [facility] Address [address] [place] [address] Care Team Providers Care Smoking Pipes Cleaner Name Role Phone Valerie Krause MD Unavailable Peter Arnett MD Primary Care Provider [phone] Allergies Active Allergy Reactions Criticality Noted Date [...] Office Visit [facility] [address] [place] [address] Gilmer Rivera DPM DJD (degenerative joint disease), ankle and foot, left (Primary Dx); Contracture of right ankle 11/11/2024 Bamboo flowsheet [facility] [address] [place] [address] Gilmer Rivera DPM 10/17/2024 Abstract [facility] [address] [place] [address] Gilmer Rivera DPM 10/13/2024 1:50 PM EDT Office Visit [facility] [address] [place] [address] Gilmer Rivera DPM DJD (degenerative joint disease), ankle and foot, left (Primary Dx); Lisfranc dislocation, left, initial encounter 10/13/2024 Telephone [facility] [address] [place] [address] Gilmer Rivera DPM Casting For Braces Or Orthotics 10/13/2024 Bamboo flowsheet [facility] [address] [place] [address] Gilmer Rivera DPM 09/29/2024 External Result Encounter [facility] External Department Unsolicited Gilmer Rivera DPM 09/10/2024 4:20 PM EDT Office Visit [facility] [address] [place] [address] Gilmer Rivera DPM Other physeal fracture of left metatarsal, initial encounter for closed fracture (Primary Dx); DJD (degenerative joint disease), ankle and foot, left; Lisfranc dislocation, left, initial encounter; Capsulitis of metatarsophalangeal (MTP) joint of left foot 09/10/2024 Bamboo flowsheet [facility] [address] [place] [address] Gilmer Rivera DPM 09/08/2024 Travel 09/03/2024 4:00 PM EDT Ancillary Procedure [facility] [address] [place] [address] 09/03/2024 3:40 PM EDT Office Visit [facility] [address] [place] [address] Gilmer Rivera DPM DJD (degenerative joint disease), ankle and foot, left (Primary Dx); Lisfranc dislocation, left, initial encounter; Other physeal fracture of left metatarsal, initial encounter for closed fracture; Capsulitis of metatarsophalangeal (MTP) joint of left foot 09/03/2024 Bamboo flowsheet [facility] [address] [place] [address] Gilmer Rivera DPM from Last 3 Months [...] 9:30 AM EDT Office Visit [facility] [address] [place] [address] Gilmer Rivera DPM [address] [address] Health Maintenance Due Date Last Done Comments [...] (degenerative joint disease), ankle and foot, left COLONOSCOPY Routine 05/19/2013 12:00 PM EST from [...] Portillo M.D. 09/29/2024 10:53 PM Dictation Location: [facility] Transcribed By: PWS 09/29/242252 Dictated By: Ethan Portillo DO 09/29/242247 Signed By: <Electronically signed by Ethan Portillo DO in OV> 09/29/242252 Narrative 09/29/2024 10:56 PM EDT [facility] [place] [address] CT Scan Report Signed Patient: Kyleigh Porter MR#: [id number] 827 : 1960 Acct:[id number] Age/Sex: 63 / F ADM Date: 09/29/24 Loc: CT Room: Type: [facility] Attending Dr: Gilmer Rivera DPM Copies to: [...] con Procedure Note Radiology, Radiologist, - 10/09/2024 [facility] Main [place] [address] [place] [address] CT Scan Report Signed Patient: Kyleigh Porter SMR#: [id number] 827 : 1960Acct:[id number] Age/Sex: 63 / FADM Date: 09/29/24 Loc: CT Room:Type: [facility] Attending Dr: Gilmer Rivera DPM Copies to: [...] Portillo M.D. 09/29/2024 10:53 PM Dictation Location: [place] [address] Transcribed By: [facility] 09/29/24 5002 Dictated By: Ethan Portillo DO 09/29/24 2248 [...] new fractures with negative displacement Gilmer Rivera DPM IMG XR PROCEDURES Final Res ult * Colonoscopy (05/19/2013 12:00 PM EST) Anatomical Region Laterality Modality Endoscopy 05/19/2013 12:0 0 PM EST Narrative 05/19/2013 12:00 PM EST PERFORMED AT [facility] LOCATION:[id number] Polyps Procedure Note CONVERSION, GENERIC - 08/17/2022 PERFORMED AT [facility] LOCATION:[id number] Polyps Emelyn Smith MD ENDOSCOPY PROCEDURE ORDERABLES F inal Result from Last 3 Months or Most Recently Relevant to Health Maintenance Insurance [employer] Care Teams Smoking Pipes Cleaner Relationship Specialty Start Date End Date Peter Arnett MD [address] [place] [address] PCP - General Family Medicine 02/05/24 Valerie Krause MD [address] [place] [address] Referring Physician Family Medicine 01/29/24
--- OUTSIDE RECORDS SUMMARY | 2024-12-03 16:00 | XMS_ITS | Clinical Summary ---
Author Organization [facility] Address [address] [place] [address] Care Team Providers Care Pharmaceutical Process Engineer Name Role Phone Peter Arnett MD Primary Care Provider [phone] Allergies Active Allergy Reactions Criticality Noted Date [...] series) 2037 Insurance [employer] PPO Care Teams Pharmaceutical Process Engineer Relationship Specialty Start Date End Date Peter Arnett MD [address] [facility] [address] [place] [phone] PCP - General Family Medicine 04/05/20
--- OUTSIDE RECORDS SUMMARY | 2024-12-03 16:00 | XMS_ITS | Clinical Summary ---
Author Organization [facility] Address [address] [place] [address], [address] [place] [address] Care Team Providers Care Coordinator Mining Products Name Role Phone Peter Arnett MD Primary Care Provider [phone] Social History Tobacco Use Types Packs/Day Years [...] this topic Insurance [employer] Care Teams Coordinator Mining Products Relationship Specialty Start Date End Date Peter Arnett MD [address] [place] [phone] PCP - General Family Medicine 09/26/23
--- OUTSIDE RECORDS SUMMARY | 2024-12-03 16:00 | XMS_ITS | Encounter Summary ---
Author Organization [facility] Address [address] [place] [address] Care Team Providers Care Consumer Educator Name Role Phone Valerie Krause MD Unavailable [phone] Peter Arnett MD Primary Care Provider [phone] Encounter Details Date Type Department Care Team (Late Contact Info) Description 08/13/2024 Orders Only [facility] [place] [facility] [address] [place] [address] Hallie Leigh MA Lisfranc dislocation, left, initial [...] EDT Office Visit [facility] [address] [place] [address] Gilmer Rivera DPM [address] [address] documented as of this encounter Procedures Procedure [...] encounter documented in this encounter Care Teams Consumer Educator Relationship Specialty Start Date End Date Peter Arnett MD [facility]5 [place] [address] PCP - General Family Medicine 02/05/24 Valerie Krause MD [facility]5 [place] [address] Referring Physician Family Medicine 01/29/24 documented as of this encounter
[2024-12-03 16:53] LABS: Free T3 2.49 pg/mL (2.18-3.98); Thyroid Stimulating Hormone 1.692 uIU/mL (0.358-3.740)
== END 2024-12-03 15:57 | disposition home or self-care (01) ==
PROVIDERS: PCP Family Medicine; Visit Provider Family Medicine
DX: N39.0 Urinary tract infection, site not specified (principal); E03.9 Hypothyroidism, unspecified
CPT/HCPCS: 36415; 84436; 84443; 84481

== ENCOUNTER 2024-12-09 07:31 | Outpatient (OUT) | payer OTHER, SELFPAY ==
--- NOTE | 2024-12-09 07:34 | US_ITS ---
The [address] [address] Patient Name: KATHY PORTER MRN: [id number] date: 1960 Sex: F Assigned Patient Location: US Current Patient Location: US Accession/Order Number: [id number] Exam Date: 12/09/2024 07:35 Report Date: 12/09/2024 11:08 At the request of: DARYN CULVER Procedure: US renal BI BILATERAL RENAL AND BLADDER ULTRASOUND CLINICAL HISTORY: Left Flank Pain, Kidney Stone COMPARISON: 06/02/2024 Estimation of renal size is approximately 10.9 cm on the right and 11.3 cm on the left. There are 2 echogenic foci with twinkle artifact suggesting stones at the superior pole on the left measuring 6 mm. A cyst is present at the lower pole of the right kidney measuring 18 x 16 x 14 mm. There is left pelviectasis and apparent thickening of the urothelium. There is no significant calyceal dilatation. There is no hydronephrosis on the right. There is also a cyst at the midpole on the left measuring 9 x 9 x 11 mm. There is no perinephric fluid. The urinary bladder is poorly distended with a volume of 12 ml. This limits evaluation. US/US renal BI IMPRESSION: SMALL BILATERAL RENAL CYSTS. LEFT NEPHROLITHIASIS. MILD LEFT PELVIECTASIS AND SUGGESTION OF ASSOCIATED UROTHELIAL THICKENING. Impression dictated by: Asmita Bellamy M.D. 12/09/2024 11:08 AM Dictation Location: [place] [address] Electronically authenticated by: [id number] Y Date: 12/09/2024 11:08
--- OUTSIDE RECORDS SUMMARY | 2024-12-09 07:35 | XMS_ITS | CCD ---
Author Organization [facility] Inform ion [facility] Care Team Providers Care Industrial Eng Name Role Phone Vicky Arnett Primary Care Provider DO Justin Francisco Emergency Provider MD Vicky Arnett Primary Care Provider [phone] MD Henry Burnett Admit Provider MD Henry Burnett Attending Provider MD Volodymyr [facility] Other Provider DR VICKY ARNETT Admitting Unavailable [...] Unavailable Vicky Arnett MD Primary Care Provider GEHLOT, UPENDER Attending Unavailable HOY, VICKY Primary Care Unavailable GEHLOT, UPENDER Attending Unavailable HOY, VICKY Primary Care Unavailable GEHLOT, UPENDER Attending Unavailable HOY, VICKY Primary Care Unavailable GEHLOT, UPENDER Attending Unavailable HOY, VICKY Primary Care Unavailable HOY, VICKY Primary Care Unavailable NELLIE SUMNER Attending Unavailable GEHLOT, UPENDER Attending Unavailable HOY, VICKY Primary Care Unavailable HOY, VICKY Primary Care Unavailable SCOTT MCALLISTER Attending Unavailable RemingtonVicky bahena Primary Care Physician DESIRE DEGROOT Referring Unavailable VICKY ARNETT Primary Care Unavailable HENNY DEGROOT Referring Unavailable VICKY ARNETT Primary Care Unavailable DESIRE DEGROOT Referring Unavailable VICKY ARNETT Primary Care Unavailable DESIRE DEGROOT Referring Unavailable VICKY ARNETT Primary Care Unavailable Nelida CID, Valerie Unavailable Vicky Arnett MD Primary Care Provider Vikcy Arnett MD Primary Care Provider [phone] Vicky Arnett MD Primary Care Provider Vicky Arnett MD Primary Care Provider [phone] Gilmer Rivera DPM Attending Provider Gilmer Rivera Attending Unavailable Gilmer Rivera Admitting Unavailable Vicky Arnett Primary Care Unavailable Vicky Arnett MD Primary Care Provider [phone] GILMER RIVERA Attending Unavailable GILMER RIVERA Referring Unavailable GILMER RIVERA Attending Unavailable MYNOR RIVERAOLAS A Attending Unavailable MYNOR RIVERAOLAS A Attending Unavailable MYNOR RIVERAOLAS A Referring Unavailable ANGELO DE LA CRUZ Attending Unavailable VALERIE MOSS Referring Unavailable ANGELO DE LA CRUZ H Attending Unavailable LILIBETH PENA Attending Unavailable JEWEL RIVERAS A Attending Unavailable JEWEL RIVERAS A Attending Unavailable JEWEL RIVERAS A Attending Unavailable Nicolle Beck Attending Unavailable Nicolle Beck Attending Unavailable Nicolle Beck Admitting Unavailable Vicky Arnett Referring Unavailable NILLNeel R Attending Unavailable NILLNeel R Attending Unavailable Ebony, Nicolle Attending Unavailable Allergies Allergy Classification Reported Allergen(s) Allergy Type Date of Onset Reaction(s) Facility Sulfonamides (antibiotic) (3 sources) Sulfonamides (Antibiotic) Drug Allergy 2 Rash, Swelling [facility] (17 sources) Sulfonamides (Antibiotic); Translations: [SULFA (SULFONAMIDE ANTIBIOTICS)] Propensity to adverse reactions to drug 2 Rash, Swelling [facility] (1 source) Sulfonamides (Antibiotic) Drug allergy (disorder) 3 [facility] (5 sources) Sulfonamides (Antibiotic); Translations: [sulfa drugs] Drug allergy Cutaneous eruption (morphologic abnormality) [facility] (20 sources) Sulfonamides (Antibiotic) Drug Intolerance 2 Rash, Swelling [facility] Work Phone: Medications Current Medications Medication Drug Class(es) Dates Sig (Normalized) Sig (Original) amLODIPine 10 mg oral tablet (20 sources) Dihydropyridine Calcium Channel Dimple Start: 10-02-2019 take 1 tablet by mouth once daily Norvasc 10 mg Tab 10 mg = 1 tab(s), Oral, Daily, Refills(s) 0 Start Date: 10/02/19 Status: Ordered Repeat number: 1 B-12 (2 sources) Start: 08-21-2023 B-12 Start Date: 08/21/23 Status: Ordered 24 hr buPROPion hydrochloride 450 mg extended release oral tablet (20 sources) Aminoketone Start: 06-04-2024 take 1 tablet by mouth once daily buPROPion 450 mg/24 hours (XL) oral tablet, extended release 450 mg = 1 tab(s), Oral, Daily, Refills(s) 0 Start Date: 06/04/24 Status: Ordered Repeat number: 1 Start: 01-03-2022 take [address] tablet [address] [facility] once daily after lunch Start: 01-03-2021 End: 01-12-2022 take 1 tablet [...] by mouth once daily in the morning End: 04-06-2020 take 1 tablet by mouth once daily buPROPion (Wellbutrin SR) 150 MG 12 hr tablet Take 150 mg by mouth daily in the afternoon . 0 04/06/2020 Discontinued (Error) bupropion hydrochloride 105 MG / dextromethorphan hydrobromide 45 MG Extended Release Oral Tablet [Auvelity] (1 source) Start: 12-02-2024 Auvelity 45 mg-105 mg oral tablet, extended release 1 tab(s) Start Date: 12/02/24 Status: Ordered Repeat number: 1 cariprazine 1.5 mg oral capsule (1 source) Atypical Antipsychotic Start: 12-02-2024 Vraylar 1.5 mg oral capsule 1.5 mg = 1 cap(s) Start Date: 12/02/24 Status: Ordered Repeat number: 1 cefuroxime 250 mg oral tablet (2 sources) Cephalosporin Antibacterial Start: 01-05-2022 take 1 tablet by mouth twice daily cholecalciferol 0.025 mg oral capsule (20 sources) Vitamin D Start: 01-03-2022 End: 01-03-2022 take 1 capsule by mouth once daily Start: 03-23-2021 cholecalcifero l, vitamin D3, 50 [...] Date: 08/16/23 Status: Ordered Start: 01-03-2022 take 1 tablet by [facility] once daily ClonazePAM 0.5 mg Tab 0.5 mg = 1 tab(s), Oral, Daily, Refills(s) 0 Start Date: 08/16/23 Status: Ordered Repeat number: 1 Start: 01-03-2022 take 1 tablet by [facility] at bedtime Start: 10-14-2021 End: 01-12-2022 take 1 tablet [...] tablet (20 sources) alpha-Adrenergic Dimple Start: 10-02-2019 take 1 tablet by mouth twice daily doxazosin 2 mg Tab 2 mg = 1 tab(s), Oral, BID, Refills(s) 0 Start Date: 10/02/19 Status: Ordered Repeat number: 1 eluxadoline 100 mg oral tablet (19 sources) mu-Opioid Receptor Agonist Start: 01-03-2022 take 1 tablet by mouth at mealtime ferrous sulfate 325 mg oral tablet (1 source) Start: 06-17-2024 take 1 tablet by mouth once daily ferrous sulfate 325 mg Tab 325 mg = 1 tab(s), Oral, Daily, Refills(s) 0 Start Date: 06/17/24 Status: Ordered Repeat number: 1 hydrALAZINE hydrochloride 25 mg oral tablet (20 sources) Arteriolar Vasodilator Start: 01-05-2022 take 1 tablet by mouth three times daily hydrALAZINE 25 mg Tab 25 mg = 1 tab(s), Oral, TID, Refills(s) 0 Start Date: 07/05/22 Status: Ordered Repeat number: 1 irbesartan 300 mg oral tablet (20 sources) Angiotensin 2 Receptor Dimple Start: 10-02-2019 take 1 tablet by mouth at bedtime levothyroxine sodium 0.075 mg oral tablet (20 sources) l-Thyroxine Start: 06-26-2024 take 1 tablet by mouth once daily in the morning levothyroxine (Synthroid, Levoxyl) 75 MCG tablet TAKE 1 TABLET BY MOUTH EVERY DAY IN THE MORNING ON AN EMPTY STOMACH FOR 30 DAYS 06/26/2024 Active Start: 06-17-2024 take 1 tablet by [facility] once daily levothyroxine 75 mcg (0.075 mg) Tab 75 mcg = 1 tab(s), Oral, Daily, Refills(s) 0 Start Date: 06/17/24 Status: Ordered Repeat number: 1 Melatonin (1 source) Start: 12-02-2024 Melatonin 10 m g, Once a day (at bedtime) Start Date: 12/02/24 Status: Ordered Repeat number: 1 meloxicam 15 mg oral tablet (1 source) Nonsteroidal Anti-inflammatory Drug Start: 12-02-2024 meloxicam 15 mg Tab 15 mg = 1 tab(s) Start Date: 12/02/24 Status: Ordered Repeat number: 1 metFORMIN hydrochloride 1000 mg oral tablet (19 sources) Biguanide Start: 01-26-2016 take 1 tablet by mouth twice daily metoprolol tartrate 100 mg oral tablet (20 sources) beta-Adrenergic Dimple Start: 06-10-2024 metoprolol tartrate (Lopressor) 100 MG tablet 06/10/2024 Active Start: 06-04-2024 take 1 tablet by [facility] three times daily metoprolol tartrate 100 mg Tab 100 mg = 1 tab(s), Oral, TID, Refills(s) 0 Start Date: 06/04/24 Status: Ordered Repeat number: 1 Start: 01-03-2022 take 100 mg by mouth every twelve hours Metoprolol Tartrate Active 100 MG PO Q12H January 03, 2022 12:00am Start: 02-06-2020 take 1 tablet by [facility] twice daily Start: 08-25-2018 take 1 tablet by wayne [...] Discontinued (Reorder (Suppress CancelRx Message to Pharmacy)) pantoprazole 40 mg delayed r elease oral tablet (20 sources) Proton Pump Inhibitor Start: 08-16-2023 Start: 01-26-2016 take 1 tablet by [facility] once daily Pantoprazole [address] Tab 40 mg = 1 tab(s), Oral, Daily, Refills(s) 0 Start Date: 08/16/23 Status: Ordered Repeat number: 1 simvastatin 10 mg oral tablet (20 sources) HMG-CoA Reductase Inhibitor Start: 01-25-2020 simvastatin 10 mg Ta b 10 mg = 1 tab(s), Oral, qPM, 90 tab(s), 0 Refill(s), Refills(s) 0 Start Date: 08/16/23 Status: Ordered Repeat number: 1 SUMAtriptan 100 mg oral tablet (10 sources) Serotonin-1b and Serotonin-1d Receptor Agonist Start: 11-25-2020 SUMAtriptan (IMITREX ) 100 MG tablet PRN per . 11/25/2020 Active Start: 11-25-2020 SUMAtriptan (I MITREX) 100 MG tablet traZODone hydrochloride 100 mg oral tablet (20 sources) Serotonin Reuptake Inhibitor Start: 06-04-2024 take 1 tablet by mouth once daily at bedtime traZODONE 100 mg Tab 100 mg = 1 tab(s), Oral, Once a day (at bedtime), Refills(s) 0 Start Date: 06/04/24 Status: Ordered Repeat number: 1 Start: 01-09-2022 End: 02-28-2022 traZODone (DESYREL) 100 MG t ablet 1/2 to 1 tab daily hs sleep . 90 tablet 0 01/09/2022 02/28/2022 Discontinued Start: 01-03-2022 take 1 tablet by [facility] once daily at bedtime Start: 04-18-2021 End: 10-14-2021 traZODone (DESYREL) 100 [...] bedtime), # 45 tab(s), Refills(s) 1, Pharmacy: [facility], 158, cm, 12/15/19 14:46:00 EDT, Height/Length Dosing, 73.3, kg, 12/15/19 14:46:00 EDT, Weight Dosing Start Date: 12/15/19 Status: Ordered 24 hr trospium chloride 60 mg extended release oral capsule (20 sources) Cholinergic Muscarinic Antagonist Start: 11-10-2024 take 1 capsule by mouth once daily in the morning trospium 60 mg oral capsule, extended release 60 mg = 1 cap(s), Oral, qAM, # 90 cap(s), Refills(s) 3, Pharmacy: [facility], 157, cm, 06/17/24 13:14:00 EDT, Height/Length Dosing, 90.6, kg, 06/17/24 13:14:00 EDT, Weight Dosing Start Date: 11/10/24 Status: Ordered Quantity: 90.0 Unit: cap(s) Repeat number: 4 Start: 05-02-2024 trospium (Sanc tura XR) 60 MG 24 hour capsule 05/02/2024 Active Start: 11-27-2023 take 1 capsule by [facility] once daily in the morning trospium 60 mg oral capsule, extended release 60 mg = 1 cap(s), Oral, qAM, # 90 cap(s), Refills(s) 3, Pharmacy: [facility], 158, cm, 11/27/23 15:03:00 EDT, Height/Length Dosing, 88, kg, 11/27/23 15:03:00 EDT, Weight Dosing Start Date: 11/27/23 Status: Ordered Start: 08-21-2023 take 1 capsule by [facility] once daily in the morning trospium 60 mg oral capsule, extended release 60 mg = 1 cap(s), Oral, qAM, # 30 cap(s), Refills(s) 11, Pharmacy: [facility]/pharmacy #[id number], 158, cm, 08/21/23 10:13:00 EDT, Height/Length Dosing, 88.5, kg, 08/21/23 10:13:00 EDT, Weight Dosing Start Date: 08/21/23 Status: Ordered take 3 tablets by [facility] once daily trospium (Sanctura) 20 MG tablet Take 60 mg by mouth Daily Active divalproex sodium 500 mg delayed release oral tablet (4 sources) Mood Stabilizer, Anti-epileptic Agent Start: 01-03-2022 take 1 tablet by mouth once daily Start: 10-14-2021 take 1 tablet by [facility] once daily divalproex (DEPAKOTE ER) 500 MG 24 hr tablet Take 1 (one) tablet (500 mg total) by mouth daily . 90 tablet 0 10/14/2021 Active Vitamin D (2 sources) Start: 08-21-2023 Vitamin D Inte rnational_Unit, Oral Start Date: 08/21/23 Status: Ordered Vitamin D2 2000 intl units oral capsule (1 source) Start: 06-04-2024 take 1 capsule by mouth once daily Vitamin D2 2000 intl units oral capsule 50 mcg = 1 cap(s), Oral, Daily, cap(s), Refills(s) 0 Start Date: 06/04/24 Status: Ordered Repeat number: 1 Completed/Discontinued Medications Medication Drug Class(es) Dates Sig (Normalized) Sig (Original) oxybutynin chloride 5 mg oral tablet (19 sources) Cholinergic Muscarinic Antagonist Start: 03-16-2020 End: 01-05-2022 take 1 tablet by mouth three times daily Oxybutynin Chloride 5 mg Tablet Discontinued 5 MG PO Three times daily January 03, 2022 12:00am January 05, 2022 12:01pm risperiDONE 3 mg oral tablet (16 sources) [...] dinner . 90 tablet 1 09/24/2020 Active zolpidem tartrate 5 mg oral tablet (19 [...] tablet 0 07/19/2021 10/14/2021 Discontinued (Reorder) Problems Problem Classification Problem Date Documented Date Episodic/Chronic Abdominal pain (2 sources) Abdominal pain; Translations: [Unspecified abdominal pain] Onset: 5 Episodic Acute and unspecified renal failure (3 sources) Injury of kidney; Translations: [Acute kidney failure, unspecified] 01-03-2022 Episodic Comment on above: Problem List clean-u p per request of Phys. EHR Cmte Anxiety disorders (20 sources) Generalized anxiety disorder; Translations: [Generalized anxiety disorder] Onset: 1 04-06-2020 Chronic Calculus of urinary tract (6 sources) Kidney stone; Translations: [Calculus of kidney] Onset: 4 Episodic Chronic kidney disease (4 sources) Chronic kidney disease; Translations: [Chronic kidney disease, unspecified] Onset: 0 Chronic Deficiency and other anemia (1 source) Anemia 06-17-2024 Episodic Diabetes mellitus without complication (3 sources) Type 2 diabetes mellitus 10-14-2018 Chronic Disorders of lipid metabolism (3 sources) Hyperlipidemia Onset: 0 08-16-2023 Chronic Essential hypertension (3 sources) Hypertensive disorder 10-14-2018 Chronic Fracture of lower limb (3 sources) Displaced bicondylar fracture of right tibia, initial encounter for closed fracture; Translations: [Displaced bicondylar fracture of right tibia, initial encounter for closed fracture] Onset: 4 Episodic Fracture of lower limb (6 sources) Closed fracture of epiphyseal plate of metatarsal bone; Translations: [Other physeal fracture of left metatarsal, initial encounter for closed fracture] 09-03-2024 Episodic Genitourinary symptoms and ill-defined conditions (6 sources) Mixed incontinence; Translations: [Incontinence] Onset: 4 Chronic Genitourinary symptoms and ill-defined conditions (2 sources) Urine screening abnormal; Translations: [Unspecified abnormal findings in urine] Onset: 5 Episodic Hypertension with complications and secondary hypertension (3 sources) Hypertensive urgency ; Translations: [Hypertensive urgency] 01-03-2022 Chronic Comment on above: Problem List clean-u p per request of Phys. EHR Cmte Joint disorders and dislocations; trauma-related (17 sources) Traumatic dislocation of joint of foot; Translations: [Dislocation of tarsometatarsal joint of left foot, initial encounter] Onset: 5 07-08-2024 Episodic Miscellaneous mental health disorders (20 sources) Insomnia disorder related to another mental disorder; Translations: [Insomnia due to other mental disorder] Onset: 1 04-06-2020 Chronic Mood disorders (20 sources) Mild depressed bipolar I disorder; Translations: [Bipolar disorder, current episode depressed, mild] Onset: 6 Resolved: 9 04-06-2020 Chronic Osteoarthritis (12 sources) Degenerative joint disease of ankle AND/OR foot; Translations: [Primary osteoarthritis, left ankle and foot] 07-20-2024 Chronic Other acquired deformities (2 sources) Contracture of joint of right ankle; Translations: [Contracture, right ankle] 11-11-2024 Chronic Other connective tissue disease (2 sources) Plantar fasciitis; Translations: [Plantar fascial fibromatosis] 07-08-2024 Episodic Other connective tissue disease (4 sources) Capsulitis of metatarsophalangeal joint of left foot; Translations: [Other enthesopathy of left foot and ankle] 09-03-2024 Episodic Other diseases of kidney and ureters (3 sources) Acquired renal cyst without neoplastic change; Translations: [Cyst of kidney, acquired] Onset: 4 Episodic Other diseases of kidney and ureters (3 sources) Cyst of kidney 08-21-2023 Episodic Other [...] Other hereditary and degenerative nervous system conditions (3 sources) Coarse tremor; Translations: [Other specified forms of tremor] 01-03-2022 Chronic Comment on above: Problem List clean-u p per request of Phys. EHR Cmte Other hereditary and degenerative nervous system conditions (2 sources) Other specified forms of tremor; Translations: [Abnormal involuntary movements] 01-03-2022 Chronic Other injuries and conditions due to external causes (4 sources) Foreign body in right ear; Translations: [Foreign body in right ear, initial encounter] 02-05-2024 Episodic Other nervous system disorders (3 sources) Disorder of brain; Translations: [Encephalopathy, unspecified] 01-03-2022 Chronic Comment on above: Problem List clean-u p per request of Phys. EHR Cmte Other nervous system disorders (2 sources) Encephalopathy, unspecified; Translations: [Encephalopathy, unspecified] 01-03-2022 Chronic Other nutritional; endocrine; and metabolic disorders (1 source) Body mass index 30+ - obesity 06-17-2024 Chronic Other nutritional; endocrine; and metabolic disorders (1 source) Obese class III 06-04-2024 Chronic Residual codes; unclassified (3 sources) Altered mental status; Translations: [Altered mental status, unspecified] 01-03-2022 Episodic Comment on above: Problem List clean-u p per request of Phys. EHR Cmte Residual codes; unclassified (2 sources) Altered mental status, unspecified; Translations: [Altered mental status] 01-03-2022 Episodic Spondylosis; intervertebral disc disorders; other back problems (1 source) Radiculopathy, lumbar region; Translations: [RADICULOPATHY LUMBAR REGION] Onset: Episodic Superficial injury; contusion (2 sources) Contusion of left foot; Translations: [Contusion of left foot, initial encounter] 07-08-2024 Episodic Thyroid disorders (1 source) Hypothyroidism 06-04-2024 Chronic Unclassified (1 source) Patient encounter status 06-17-2024 Urinary tract infections (3 sources) Urinary tract infectious disease; Translations: [Urinary tract infection, site not specified] 01-03-2022 Episodic Comment on above: Problem List clean-u p per request of Phys. EHR Cmte Results Test Name Value Interpretation Reference Range Facility C Urineon 12-04-2024 Bacteria identified Cx Nom (U) Microbiology PROCEDURE: Urine Culture [R1] SOURCE: U Random BODY SITE: COLLECTED DATE/TIME: 12/02/2024 10:40 EDT RECEIVED DATE/TIME: 12/02/2024 17:09 EDT START DATE/TIME: 12/02/2024 17:09 EDT FREE TEXT SOURCE: EbonyNicolle boo PA-C, PA-C, Lauren FINAL REPORTS Final Report [] Verified Date/Time: 12/04/2024 10:52 EDT >100,000 cfu/ml Escherichia coli SUSCEPTIBILITY RESULTS LEGEND: S=Susceptible, N/R=Not Reported, Blank=Data not available, or drug not advisable or tested, I=Intermediate, ESBL=Extended spectrum beta-lactamase, R=Resistant, TFG=Thymidine-depende nt strain, JUWAN=Beta-lactamase positive, AHMET=mcg/m;(mg/L), S*=Predicted susceptible interp, R*=Predicted resistant interp EC Antibiotic AHMET Dilutn AHMET Interp Ampicillin <=8 S Ampicillin/ <=8/4 S Sulbactam Cefazolin <=2 S Cefepime <=2 S Ceftazidime/ <=8 S Avibactam Ceftriaxone <=1 S Cefuroxime <=4 S Ciprofloxacin <=0.25 S Ertapenem <=0.5 S Gentamicin <=2 S Levofloxacin <=0.5 S Meropenem <=1 S Nitrofurantoin <=32 S Piperacillin/ <=8 S Tazobactam Tetracycline <=4 S Tobramycin <=2 S Trimethoprim/ <=2/38 S Sulfa Performing Locations R1: This test was performed at: [facility], [address] [place] [address], [id number] , [place], Normal [facility] Comment on above: Performed By: #### [id number] #### [facility] Laboratory [address] [place] [address] Reminderson 12-04-2024 Reminders Reminders From: [place] To: EU - Administrative; Sent: 12/02/2024 10:44:35 EDT Show up: 12/31/2024 10:44:00 EDT Subject: 3m F/U Due Date/Time: 03/02/2025 10:44:00 EST Reminder/Recall Patient needs a 3m f/u with PVR w/ LT, Due back early March 2025 Patient is having a RAMONA done at [facility] Pt is scheduled for 03/10/2025 Normal [facility] Urology Office/Clinic Noteon 12-02-2024 Urology Office/Clinic Note Urology Office/Clinic Note Chief Complaint F/U with KUB HPI Staff Pt is a 63 year old female here for a 1 year follow up with KUB done on 11/11/24 Dx: kidney stones, mixed incontinence, CKD, renal cyst. *Trospium R 60 mg qd PVR 0mL BBSQ 24 Pt. having mixed incontinence, Pt. does not wear any pads. Pt. denies having pain with urination Pt. denies having gross hematuria Pt. denies having abd pain Pt. having Lt flank discomfort History of Present Illness I have reviewed and verified the staff HPI to be accurate for this encounter. Review of Systems PHQ Score Initial Depression Screen Score: 0 SCORE no fever, chills, malaise, myalgia. no abdominal pain, nausea, vomiting. Physical Exam Vitals & Measurements HR: 61(Peripheral) BP: 100/75 HT: 62 in HT: 158 cm General: Well developed, well nourished, in no acute distress. Assessment/Plan 63 yo female patient here for 1 year f/u DANYELL pt 1. Kidney stones (N20.0: Calculus of kidney) RAMONA 05/04/23 TB - 7 mm nonobstructing L renal stone. KUB 11/11/24 - no stones noted, phleboliths seen within pelvis Last visit, left renal stone noted on RAMONA 05/04/23. Reviewed KUB today w/ patient, no stones noted. Shares she did not have any stone events or gross hematuria. Reports occasional left flank pain since last visit. Pain not present today and not bothersome. Offered to obtain RAMONA to evaluate pain and to see if stone is visible on ultrasound. She is agreeable. All questions answered. Shares she is drinking a lot of water. Again, discussed general stone prevention. -Obtain RAMONA at [facility], call w/ results -90oz of water daily, add lemon/[place] -Moderate animal protein, increase fruits and vegetables -KUB & RAMONA in 1 year (due October 2025) Ordered: Urnls Dip Stick Auto w/o Microscopy POC 28380 2. Mixed incontinence (N39.46: Mixed incontinence) UUI > MEDINA. BBS 24 (18) PVR 0 ml today UA today w/ moderate leuks and positive nitrites Started on Trospium ER 60mg daily at previous visit. No bothersome side effects. Shares Trospium has been helping her symptoms until the past couple weeks, having more nocturia. Up 3-4x/night. Reviewed UA w/ patient, suspicious for infection. Recommend treating infection to ensure not cause of worsening symptoms. If no improvement in symptoms after treatment for UTI, then will consider adjusting OAB meds. She is agreeable. All questions answered. -Send urine for culture & tx if infection present -Cont Trospium ER 60mg daily. Pt to call for refills. -Avoid bladder irritants -F/U in 3 months for reevaluation of symptoms, or sooner if needed Ordered: [id number] Measure Post Void residual urine and/or bladder capacity by US- non-imaging Urnls Dip Stick Auto w/o Microscopy POC 31093 3. Left flank pain (R10.9: Unspecified abdominal pain) -See #1 4. Abnormal urinalysis (R82.90: Unspecified abnormal findings in urine) UA today w/ moderate leuks and positive nitrites -See #2 5. Renal cyst (N28.1: Cyst of kidney, acquired) RAMONA 05/04/23 [facility] - 1 cm benign-appearing R renal cyst and 1 cm benign-appearing L renal cyst. 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 Medications Auvelity 45 mg-105 mg oral tablet, extended release, 1 tab(s) buPROPion 450 mg/24 hours (XL) oral tablet, [...] Tab, 75 mcg= 1 tab(s), Oral, Daily Melatonin, 10 mg, Once a day (at bedtime) meloxicam 15 mg Tab, 15 mg= 1 tab(s) metoprolol tartrate 100 mg Tab, 100 mg= [...] extended release, 60 mg= 1 cap(s), Oral, (more content not included)... Normal [facility] Comment on above: Result Comment: Elec tronically Signed By: Nicolle Beck PA-C\.marion\Date and Time Signed: 12/02/24 10:[address] foot LT wo conon 09-30-19 CT foot LT wo con [facility] [place] [address] [place], [place] [id number] CT Scan Report Signed Patient: Kathy Porter MR#: [id number] : 1960 Acct:[id number] Age/Sex: 63 / F ADM Date: 09/29/24 Loc: CT Room: Type: [facility] CLI Attending Dr: Gilmer Rivera [...] Portillo M.D. 09/29/2024 10:53 PM Dictation Location: [place] [address] Transcribed By: [facility] 09/29/242252 Dictated By: Ethan Portillo DO 09/29/248 Signed By: 09/29/242252 Normal [facility] XR Foot - left 3 [facility] Result: Notable degenerative changes to left midfoot area with notable left old Lisfranc injury with slight diastasis of the Lisfranc joint and areas suspicion to left 3rd and 4th metatarsal base region with possible old fracture or new fractures with negative displacement [facility] Radiology Study observation (narrative) [facility] XR Foot - left 3 [facility] Result: Appears to be slight step-off and possible johnathan fracture to the 2nd metatarsal significant for possible Lisfranc injury with negative other fractures identified and degenerative changes noted to midfoot [facility] Radiology Study observation (narrative) [facility] Reminderson 07-03-2024 Reminders Reminders From: Debra Hernandez LPN To: N - Clinical; Sent: 07/03/2024 13:59:47 EDT Show up: 06/01/2034 07:00:00 EST Subject: colonoscopy recall Due Date/Time: 07/02/2034 07:00:00 EDT Reminder/Recall Patient due for screening colonoscopy 07/02/2034. Normal [facility] Auditory function testson Right Ear: Mild to moderate sensorineural hearing loss above 500 Hz Left Ear: Mild sensorineural hearing loss from 1K Hz - 3K Hz rising to normal hearing at 4K Hz. Mild sensorineural hearing loss above 4K Hz [facility] XR KNEE RIGHT (1-2 VIEWS)on 11-02-2023 XR [...] Birch Jr., MD 11/02/23 Final result Normal [facility] XR KNEE RIGHT (1-2 VIEWS)on 09-28-2023 [...] Birch Jr., MD 09/28/23 Final result Normal [facility] XR LSPINE MIN 4 VIEWSon 01-01 [...] DANII CARTER Date: 2022-01-20 07:20 Normal [facility] DEPAKENE/VALPROICon 01-20-20 22 DEPAKENE 79.2 ug/ml Normal 50.0-100.0 [facility] Comment on above: Performed By: #### V ALP #### [facility] [address] [place] [address] Dr. Julio Goddard Albumin [Mass/volume] in Ser um or PlasmaOrdered By: Henry Burnett on 01-05-2022 Albumin [Mass/Vol] 3.0 g/dL 3.2-5.[address] [facility] Basophils Auto (Bld) [#/Vol] Ordered By: Henry Lemonr on 01-05-2022 Basophils (Bld) [#/Vol] 0.0 10*3/uL 0.0-0.2 [facility] Basophils/100 WBC Auto (Bld) Ordered By: Henry Burnett on 01-05-2022 Basophils/100 WBC (Bld) 0.6 % . [facility] [place] Blood hemoglobin measurement (mass/volume)Ordered By: Henry Burnett on 01-05-2022 Hemoglobin (Bld) [Mass/Vol] 12.8 g/dL 11.8-15.4 [facility] Blood leukocytes automated c ount (number/volume)Ordered By: Henry Burnett on 01-05-2022 WBC (Bld) [#/Vol] 5.3 10*3/uL 4.5-11.[address] [facility] Creatinine and Glomerular fi ltration rate.predicted panel (S/P/Bld)Ordered By: Obdanny Burnett on 01-05-2022 Creatinine [Mass/Vol] 1.14 mg/dL 0.44-1.03 [facility] Eosinophils Auto (Bld) [#/Vo l]Ordered By: Obdanny De Los Santosomar on 01-05-2022 Eosinophils (Bld) [#/Vol] 0.2 10*3/uL 0.0-0.45 [facility] Eosinophils/100 WBC Auto (Bl d)Ordered By: Henry Lemonr on 01-05-2022 Eosinophils/100 WBC (Bld) 3.5 % . [facility] Erythrocyte distribution wid th Auto (RBC) [Ratio]Ordered By: Henry Burnett on 01-05-2022 Erythrocyte distribution width (RBC) [Ratio] 16.2 % 11.9-15.3 [facility] Estimated glomerular filtrat ion rate (GFR) non- AmericanOrdered By: Henry Lemonr on 01-05-2022 GFR/1.73 sq M.predicted among non-blacks MDRD (S/P/Bld) [Vol rate/Area] 49 mL/Min [facility] Globulin Calc (S) [Mass/Vol] Ordered By: Henry Burnett on 01-05-2022 Globulin (S) [Mass/Vol] 2.5 g/dL [facility] Hematocrit Auto (Bld) [Volum e fraction]Ordered By: Henry Lemonr on 01-05-2022 Hematocrit (Bld) [Volume fraction] 38.6 % 34.0-46.4 [facility] Laboratory - Hematology and Cell countsOrdered By: Henry Lemonr on 01-05-2022 Nucleated RBC/100 WBC (Bld) [Ratio] 0.1 % 0-0.5 [facility] Lymphocytes Auto (Bld) [#/Vo l]Ordered By: Obsonjadanaga De Los Santosomar on 01-05-2022 Lymphocytes (Bld) [#/Vol] 1.7 10*3/uL 1.00-4.8 [facility] Lymphocytes/100 WBC Auto (Bl d)Ordered By: Obaydah Daromar on 01-05-2022 Lymphocytes/100 WBC (Bld) 33.1 % . [facility] MCH Auto (RBC) [Entitic mass ]Ordered By: Obsonjadah Daromar on 01-05-2022 MCH (RBC) [Entitic mass] 30.2 pg 24.7-34.3 [facility] MCHC Auto (RBC) [Mass/Vol]Or dered By: Obaydah Daromar on 01-05-2022 MCHC (RBC) [Mass/Vol] 33.3 g/dL 32.0-35.0 [facility] MCV Auto (RBC) [Entitic vol] Ordered By: Obsonjadah Daromar on 01-05-2022 MCV (RBC) [Entitic vol] 90.6 fL 80-100 [facility] [place] Monocytes Auto (Bld) [#/Vol] Ordered By: Obaydah Daromar on 01-05-2022 Monocytes (Bld) [#/Vol] 0.7 10*3/uL 0.0-0.8 [facility] Monocytes/100 WBC Auto (Bld) Ordered By: Obsonjadah Daromar on 01-05-2022 Monocytes/100 WBC (Bld) 12.5 % . [facility] Neutrophils Auto (Bld) [#/Vo l]Ordered By: Obaydah Daromar on 01-05-2022 Neutrophils (Bld) [#/Vol] 2.6 10*3/uL 1.8-7.7 [facility] Neutrophils/100 WBC Auto (Bl d)Ordered By: Obaydah Daromar on 01-05-2022 Neutrophils/100 WBC (Bld) 50.3 % . [facility] No Panel InformationOrdered By: Obaydah Filibertoomar on 01-05-2022 Estimated GFR () 59 mL/Min [facility] Comment on above: GFR estimated refere nce range: According to KDOQI guidelines, <60 ml/min/1.73m2 is sufficient to diagnose a patient with chronic kidney disease. Pharmacy Creatinine Clearance (Chem 51.99 [facility] Platelet mean volume Auto (B ld) [Entitic vol]Ordered By: Henry De Los Santosomar on 01-05-2022 Platelet mean volume (Bld) [Entitic vol] 8.9 fL 6.3-10.7 [facility] Platelets Auto (Bld) [#/Vol] Ordered By: Obdanny De Los Santosomar on 01-05-2022 Platelets (Bld) [#/Vol] 186 10*3/uL 150-450 [facility] Protein [Mass/volume] in Ser um or PlasmaOrdered By: Henry De Los Santosomar on 01-05-2022 Protein [Mass/Vol] 5.5 g/dL 6.1-7.[address] [facility] RBC Auto (Bld) [#/Vol]Ordere d By: Henry De Los Santosomar on 01-05-2022 RBC (Bld) [#/Vol] 4.25 10*6/uL 3.60-5.00 [facility] Serum or plasma alanine angeles otransferase measurement without P-5'-P (enzymatic activiOrdered By: Henry De Los Santosomar on 01-05-2022 ALT No additional P-5'-P [Catalytic activity/Vol] 11 U/L 10-60 [facility] Serum or plasma albumin/glob ulin mass ratioOrdered By: Henry De Los Santosomar on 01-05-2022 Albumin/Globulin [Mass ratio] 1.2 {ratio} [facility] Serum or plasma alkaline flaquita sphatase measurement (enzymatic activity/volume)Ordered By: Henry De Los Santosomar on 01-05-2022 ALP [Catalytic activity/Vol] 33 U/L 32-92 [facility] Serum or plasma anion gap de terminationOrdered By: Henry De Los Santosomar on 01-05-2022 Anion gap [Moles/Vol] 11.6 mmol/L 6.0-15.0 [facility] Serum or plasma aspartate am inotransferase measurement (enzymatic activity/volume)Ordered By: Henry Burnett on 01-05-2022 AST [Catalytic activity/Vol] 13 U/L 10-42 [facility] Serum or plasma calcium sarah urement (mass/volume)Ordered By: Henry Burnett on 01-05-2022 Calcium [Mass/Vol] 9.1 mg/dL 8.2-10.[address] [facility] Serum or plasma chloride deep surement (moles/volume)Ordered By: Henry Burnett on 01-05-2022 Chloride [Moles/Vol] 105 mmol/L 95-[address] [facility] Serum or plasma glucose sarah urement (mass/volume)Ordered By: Henry Burnett on 01-05-2022 Glucose [Mass/Vol] 96 mg/dL 70-[address] [facility] Comment on above: ADA recommended refe rence rangeRandom Glucose Reference Range is dependent on time and content of last meal. Glucose of more than 200 mg/dL in a nonstressed, ambulatory subject supports the diagnosis of Diabetes Mellitus. Serum or plasma potassium me asurement (moles/volume)Ordered By: Henry Burnett on 01-05-2022 Potassium [Moles/Vol] 3.8 mmol/L 3.5-5.1 [facility] Serum or plasma sodium measu rement (moles/volume)Ordered By: Henry Burnett on 01-05-2022 Sodium [Moles/Vol] 138 mmol/L 136-[address] [facility] Serum or plasma total biliru bin measurement (mass/volume)Ordered By: Henry Burnett on 01-05-2022 Bilirubin [Mass/Vol] 0.4 mg/dL 0.3-1.[address] [facility] Serum or plasma total carbon dioxide measurement (moles/volume)Ordered By: Henry Burnett on 01-05-2022 CO2 [Moles/Vol] 25.2 mmol/L 22.0-30.0 [facility] Serum or plasma urea nitroge n measurement (mass/volume)Ordered By: Henry Burnett on 01-05-2022 Urea nitrogen [Mass/Vol] 11 mg/dL 9- [facility] Urine culture routineOrdered By: Justin Francisco on 01-05-2022 Bacteria identified Cx Nom (U) Escherichia coli [facility] Cholesterol [Mass/volume] in Serum or PlasmaOrdered By: Henry Burnett on 01-04-2022 Cholesterol [Mass/Vol] 145 mg/dL 140-200 [facility] Comment on above: Chol less than 200 m g/dl low riskChol 201-239 mg/dl borderline riskChol 240 mg/dl and greater high risk Cholesterol in LDL Calc [Mas s/Vol]Ordered By: Henry Burnett on 01-04-2022 Cholesterol in LDL [Mass/Vol] 78 mg/dL 0-100 [facility] Comment on above: LDL ATP III CLASSIFI CATIONLDL less than 100 mg/dL OptimalLDL 100-129 mg/dL Near or above optimalLDL 130-159 mg/dL Borderline highLDL 160-189 mg/dL HighLDL greater than 189 mg/dL Very high Cholesterol in VLDL Calc [Ma ss/Vol]Ordered By: Henry Burnett on 01-04-2022 Cholesterol in VLDL [Mass/Vol] 12 mg/dL [facility] Laboratory - Chemistry and C hemistry - challengeOrdered By: Henry Burnett on 01-04-2022 Magnesium [Mass/Vol] 1.6 mg/dL 1.6-2.[address] [facility] No Panel InformationOrdered By: Graham eHlm on 01-04-2022 Valproic Acid (Depakene) Level 28.2 ug/mL 50.0-100.0 [facility] Comment on above: Last dose: - Phosphate [Mass/volume] in S yeyo or PlasmaOrdered By: Henry Burnett on 01-04-2022 Phosphate [Mass/Vol] 3.5 mg/dL 2.5-4.[address] [facility] Serum or plasma high density lipoprotein (HDL) cholesterol measurementOrdered By: Henry Burnett on 01-04-2022 Cholesterol in HDL [Mass/Vol] 55 mg/dL 35-85 [facility] Comment on above: HDL CHOL ATP-III CLA SSIFICATION Cardiovascular RiskHDL > or equal to 60 mg/dL LOWHDL < 40 mg/dL HIGH Serum or plasma total choles terol/high density lipoprotein (HDL) cholesterol mass ratOrdered By: Henry Burnett on 01-04-2022 Cholesterol.total/Tila sterol in HDL [Mass ratio] 2.6 {ratio} <5.0 [facility] Triglyceride [Mass/volume] i n Serum or PlasmaOrdered By: Henry Burnett on 01-04-2022 Triglyceride [Mass/Vol] 60 mg/dL 35-149 [facility] Comment on above: TRIG ATP III CLASSIF ICATIONTRIG less than 150 mg/dL NormalTRIG 150-199 mg/dL Borderline highTRIG 200-500 mg/dL High TRIG greater than 500 mg/dL Very highStandard traceable to the Center for Disease Conrtrol and Prevention (CDC) test method. Albumin [Mass/volume] in Ser um or PlasmaOrdered By: Justin Francisco on 01-03-2022 Albumin [Mass/Vol] 3.6 g/dL 3.2-5.[address] [facility] Amphetamine Screen Ql (U)Ord ered By: Justin Francisco on 01-03-2022 Amphetamines Ql (U) Negative Negative [facility] Automated erythrocytes count in urine sediment (number/area)Ordered By: Justin Francisco on 01-03-2022 RBC Auto (Urine sed) [#/Area] None seen [HPF] 0-4 [facility] Automated leukocytes count i n urine sediment (number/area)Ordered By: Justin Francisco on 01-03-2022 WBC Auto (Urine sed) [#/Area] 5-9 [HPF] 0-4 [facility] Barbiturates [Presence] in U rineOrdered By: Justin Francisco on 01-03-2022 Barbiturates Ql (U) Negative Negative [facility] Basophils Auto (Bld) [#/Vol] Ordered By: Justin Francisco on 01-03-2022 Basophils (Bld) [#/Vol] 0.0 10*3/uL 0.0-0.2 [facility] Basophils/100 WBC Auto (Bld) Ordered By: Justin Francisco on 01-03-2022 Basophils/100 WBC (Bld) 0.6 % . [facility] Benzodiazepines [Presence] i n UrineOrdered By: Justin Francisco on 01-03-2022 Benzodiazepines Ql (U) Negative Negative [facility] Bilirubin Test strip Ql (U)O rdered By: Justin Francisco on 01-03-2022 Bilirubin Ql (U) Negative Negative [facility] Blood hemoglobin measurement (mass/volume)Ordered By: Justin Francisco on 01-03-2022 Hemoglobin (Bld) [Mass/Vol] 13.4 g/dL 11.8-15.4 [facility] Blood leukocytes automated c ount (number/volume)Ordered By: Justin Francisco on 01-03-2022 WBC (Bld) [#/Vol] 6.4 10*3/uL 4.5-11.[address] [facility] COVID-19 Positive/NegativeOr dered By: Justin Francisco on 01-03-2022 SARS-CoV-2 (COVID-19) N gene ARMINDA+probe Ql (Resp) Negative Negative [facility] Comment on above: Testing for SARS-CoV -2 by RT-PCRThis test was developed and its performance characteristics determined by [employer] and validated at the [facility]. This test has not been FDA cleared [...] IA.rapid Ql (Resp) Negative Negative [facility] Comment on above: This is a duplicate Delores SARS Antigen (MARLINE) result to be used for statistical tracking purpose only. Cannabinoids [Presence] in U rine by Screen methodOrdered By: Justin Francisco on 01-03-2022 Cannabinoids Screen Ql (U) Negative Negative [facility] Comment on above: These are unconfirme d results and should not be used for legal purposes. Drug Cut-Off Concentration: AMPH 1000 ng/mL TERRY 200 ng/mL HONG 200 ng/mL COCM 300 ng/mL OP 300 ng/mL PCP 25 ng/mL THC 20 ng/mL Color Auto (U)Ordered By: Aman Francisco on 01-03-2022 Color (U) Yellow Yellow [facility] Creatinine and Glomerular fi ltration rate.predicted panel (S/P/Bld)Ordered By: Justin Francisco on 01-03-2022 Creatinine [Mass/Vol] 1.38 mg/dL 0.44-1.03 [facility] Eosinophils Auto (Bld) [#/Vo l]Ordered By: Justin Francisco on 01-03-2022 Eosinophils (Bld) [#/Vol] 0.1 10*3/uL 0.0-0.45 [facility] Eosinophils/100 WBC Auto (Bl d)Ordered By: Justin Francisco on 01-03-2022 Eosinophils/100 WBC (Bld) 1.4 % . [facility] Erythrocyte distribution wid th Auto (RBC) [Ratio]Ordered By: Justin Francisco on 01-03-2022 Erythrocyte distribution width (RBC) [Ratio] 15.7 % 11.9-15.3 [facility] Estimated glomerular filtrat ion rate (GFR) non- AmericanOrdered By: Justin Francisco on 01-03-2022 GFR/1.73 sq M.predicted among non-blacks MDRD (S/P/Bld) [Vol rate/Area] 39 mL/Min [facility] Globulin Calc (S) [Mass/Vol] Ordered By: Justin Francisco on 01-03-2022 Globulin (S) [Mass/Vol] 3.1 g/dL [facility] Hematocrit Auto (Bld) [Volum e fraction]Ordered By: Justin Francisco on 01-03-2022 Hematocrit (Bld) [Volume fraction] 41.0 % 34.0-46.4 [facility] Ketones Auto test strip (U) [Mass/Vol]Ordered By: Justin Francisco on 01-03-2022 Ketones (U) [Mass/Vol] Negative Negative [facility] toxic[facility] Ordered By: Justin Francisco on 01-03-2022 Opiates Ql (U) Negative Negative [facility] Laboratory - Hematology and Cell countsOrdered By: Justin Francisco on 01-03-2022 Nucleated RBC/100 WBC (Bld) [Ratio] 0.1 % 0-0.5 [facility] Laboratory - UrinalysisOrder ed By: Justin Francisco on 01-03-2022 Hyaline casts LM Ql (Urine sed) 0-8 [LPF] 0-8 [facility] Lymphocytes Auto (Bld) [#/Vo l]Ordered By: Justin Francisco on 01-03-2022 Lymphocytes (Bld) [#/Vol] 1.4 10*3/uL 1.00-4.8 [facility] Lymphocytes/100 WBC Auto (Bl d)Ordered By: Justin Francisco on 01-03-2022 Lymphocytes/100 WBC (Bld) 22.3 % . [facility] MCH Auto (RBC) [Entitic mass ]Ordered By: Justin Francisco on 01-03-2022 MCH (RBC) [Entitic mass] 29.7 pg 24.7-34.3 [facility] MCHC Auto (RBC) [Mass/Vol]Or dered By: Justin Francisco on 01-03-2022 MCHC (RBC) [Mass/Vol] 32.6 g/dL 32.0-35.0 [facility] MCV Auto (RBC) [Entitic vol] Ordered By: Justin Francisco on 01-03-2022 MCV (RBC) [Entitic vol] 91.0 fL 80-100 [facility] Monocytes Auto (Bld) [#/Vol] Ordered By: Justin Francisco on 01-03-2022 Monocytes (Bld) [#/Vol] 0.6 10*3/uL 0.0-0.8 [facility] Monocytes/100 WBC Auto (Bld) Ordered By: Justin Francisco on 01-03-2022 Monocytes/100 WBC (Bld) 8.9 % . [facility] Neutrophils Auto (Bld) [#/Vo l]Ordered By: Justin Francisco on 01-03-2022 Neutrophils (Bld) [#/Vol] 4.3 10*3/uL 1.8-7.7 [facility] Neutrophils/100 WBC Auto (Bl d)Ordered By: Justin Francisco on 01-03-2022 Neutrophils/100 WBC (Bld) 66.8 % . [facility] Nitrite Test strip Ql (U)Ord ered By: Justin Francisco on 01-03-2022 Nitrite Ql (U) Negative Negative [facility] No Panel InformationOrdered By: Justin Francisco on 01-03-2022 Estimated GFR () 47 mL/Min [facility] Comment on above: GFR estimated refere nce range: According to KDOQI guidelines, <60 ml/min/1.73m2 is sufficient to diagnose a patient with chronic kidney disease. Pharmacy Creatinine Clearance (Chem 43.00 [facility] Valproic Acid (Depakene) Level 59.0 ug/mL 50.0-100.0 [facility] Comment on above: Last dose: - SARS Antigen (LFIA) [facility] Phencyclidine Screen Ql (U)O rdered By: Justin Francisco on 01-03-2022 Phencyclidine Ql (U) Negative Negative [facility] Platelet mean volume Auto (B ld) [Entitic vol]Ordered By: Justin Francisco on 01-03-2022 Platelet mean volume (Bld) [Entitic vol] 8.8 fL 6.3-10.7 [facility] Platelets Auto (Bld) [#/Vol] Ordered By: Justin Francisco on 01-03-2022 Platelets (Bld) [#/Vol] 236 10*3/uL 150-450 [facility] Protein Auto test strip (U) [Mass/Vol]Ordered By: Justin Francisco on 01-03-2022 Protein (U) [Mass/Vol] Negative Negative [facility] Protein [Mass/volume] in Ser um or PlasmaOrdered By: Jsutin Francisco on 01-03-2022 Protein [Mass/Vol] 6.7 g/dL 6.1-7.[address] [facility] RBC Auto (Bld) [#/Vol]Ordere d By: Justin Francisco on 01-03-2022 RBC (Bld) [#/Vol] 4.50 10*6/uL 3.60-5.00 [facility] Salicylates [Mass/volume] in Serum or PlasmaOrdered By: Justin Francisco on 01-03-2022 Salicylates [Mass/Vol] mg/dL 15.0-30.0 [facility] Comment on above: Patients treated wit h Sulfasalazine may generate a false high result for Salicylate.Patients treated with Sulfapyridine may generate a false low result for Salicylate. Serum or plasma acetaminophe n measurement (mass/volume)Ordered By: Justin Francisco on 01-03-2022 Acetaminophen [Mass/Vol] 25.3 ug/mL 10.0-30.0 [facility] Serum or plasma alanine angeles otransferase measurement without P-5'-P (enzymatic activiOrdered By: Justin Francisco on 01-03-2022 ALT No additional P-5'-P [Catalytic activity/Vol] 14 U/L 10-60 [facility] Serum or plasma albumin/glob ulin mass ratioOrdered By: Justin Francisco on 01-03-2022 Albumin/Globulin [Mass ratio] 1.2 {ratio} [facility] Serum or plasma alkaline flaquita sphatase measurement (enzymatic activity/volume)Ordered By: Justin Francisco on 01-03-2022 ALP [Catalytic activity/Vol] 40 U/L 32-92 [facility] Serum or plasma anion gap de terminationOrdered By: Justin Francisco on 01-03-2022 Anion gap [Moles/Vol] 16.7 mmol/L 6.0-15.0 [facility] Serum or plasma aspartate am inotransferase measurement (enzymatic activity/volume)Ordered By: Justin Francisco on 01-03-2022 AST [Catalytic activity/Vol] 18 U/L 10-42 [facility] Serum or plasma calcium sarah urement (mass/volume)Ordered By: Justin Francisco on 01-03-2022 Calcium [Mass/Vol] 9.5 mg/dL 8.2-10.[address] [facility] Serum or plasma chloride deep surement (moles/volume)Ordered By: Justin Francisco on 01-03-2022 Chloride [Moles/Vol] 99 mmol/L 95-[address] [facility] Serum or plasma ethanol sarah urement (mass/volume)Ordered By: Justin Francisco on 01-03-2022 Ethanol [Mass/Vol] mg/dL [facility] Ethanol [Mass/Vol] TNP [facility] [facility] Comment on above: Test not performed Serum or plasma glucose sarah urement (mass/volume)Ordered By: Justin Francisco on 01-03-2022 Glucose [Mass/Vol] 137 mg/dL 70-[address] [facility] Comment on above: ADA recommended refe rence rangeRandom Glucose Reference Range is dependent on time and content of last meal. Glucose of more than 200 mg/dL in a nonstressed, ambulatory subject supports the diagnosis of Diabetes Mellitus. Serum or plasma potassium me asurement (moles/volume)Ordered By: Justin Francisco on 01-03-2022 Potassium [Moles/Vol] 4.3 mmol/L 3.5-5.1 [facility] Serum or plasma sodium measu rement (moles/volume)Ordered By: Justin Francisco on 01-03-2022 Sodium [Moles/Vol] 135 mmol/L 136-[address] [facility] Serum or plasma total biliru bin measurement (mass/volume)Ordered By: Justin Francisco on 01-03-2022 Bilirubin [Mass/Vol] 0.6 mg/dL 0.3-1.[address] [facility] Serum or plasma total carbon dioxide measurement (moles/volume)Ordered By: Justin Francisco on 01-03-2022 CO2 [Moles/Vol] 23.6 mmol/L 22.0-30.0 [facility] Serum or plasma urea nitroge n measurement (mass/volume)Ordered By: Justin Francisco on 01-03-2022 Urea nitrogen [Mass/Vol] 14 mg/dL 9-23 [facility] Specific gravity Auto test s trip (U) [Rel density]Ordered By: Justin Francisco on 01-03-2022 Specific gravity (U) [Rel density] 1.012 1.001-1.030 [facility] Squamous epithelial cells de tection in urine sediment by light microscopyOrdered By: Justin Francisco on 01-03-2022 Epithelial cells.squamous LM Ql (Urine sed) 3-4 [HPF] 0-2 [facility] TSH DL <= 0.005 mIU/L QnOrde red By: Justin Francisco on 01-03-2022 TSH Qn 4.71 m[IU]/L 0.45-5.33 [facility] Thyroxine (T4) free [Mass/vo lume] in Serum or PlasmaOrdered By: Justin Francisco on 01-03-2022 Free T4 [Mass/Vol] 1.10 ng/dL 0.61-1.[address] [facility] Urine bacteria detection by automated methodOrdered By: Justin Francisco on 01-03-2022 Bacteria Auto Ql (U) 2+ None Seen [facility] Urine clarity by refractomet ry automatedOrdered By: Justin Francisco on 01-03-2022 Clarity Refractometry automated (U) Clear Clear [facility] Urine cocaine detectionOrder ed By: Justin Francisco on 01-03-2022 Cocaine Ql (U) Negative Negative [facility] Urine glucose measurement by automated test strip (mass/volume)Ordered By: Justin Francisco on 01-03-2022 Glucose Auto test strip (U) [Mass/Vol] Normal mg/dL Normal [facility] Urine hemoglobin detection b y automated test stripOrdered By: Justin Francisco on 01-03-2022 Hemoglobin Auto test strip Ql (U) Negative Negative [facility] Urine leukocyte esterase det ection by automated test stripOrdered By: Justin Francisco on 01-03-2022 Leukocyte esterase Auto test strip Ql (U) 2+ Negative [facility] Urobilinogen Auto test strip (U) [Mass/Vol]Ordered By: Justin Francisco on 01-03-2022 Urobilinogen (U) [Mass/Vol] Normal mg/dL Normal [facility] Yeast detection in urine sed iment by light microscopyOrdered By: Justin Francisco on 01-03-2022 Yeast LM Ql (Urine sed) None seen [HPF] None Se en [facility] pH Auto test strip (U)Ordere d By: Justin Francisco on 01-03-2022 pH (U) 5.5 [pH] 5.0-9.0 [facility] CBC AUTO DIFFon 10-27-2021 BASO # 0.1 103/ul Normal 0.0-0.1 [facility] Comment on above: Performed By: #### C BC ####[facility] [address] [place] [address]Dr. Julio Goddard Basophils/100 WBC (Bld) 0.6 % Normal 0.2-2.[address] [facility] Comment on above: Performed By: #### C BC ####[facility] [address] [place] [address]Dr. Julio Goddard EO # 0.2 103/ul Normal 0.0-0.7 [facility] Comment on above: Performed By: #### C BC ####[facility] [address] [place] [address]Dr. Julio Goddard Eosinophils/100 WBC (Bld) 2.4 % Normal 0.9-7.0 [facility] Comment on above: Performed By: #### C BC ####[facility] [address] [place] [address]Dr. Julio Goddard Erythrocyte distribution width (RBC) [Ratio] 15.0 % Normal 11.0-15.0 [facility] Comment on above: Performed By: #### C BC ####[facility] [address] [place], [place] [address]Dr. Julio Goddard Hematocrit (Bld) [Volume fraction] 37.4 % Normal 36.0-48.0 [facility] Comment on above: Performed By: #### C BC ####[facility] [address] [place] [id number]. Julio Goddard Hemoglobin (Bld) [Mass/Vol] 12.2 g/dL Normal 12.0-16.0 [facility] Comment on above: Performed By: #### C BC ####[facility] [address] [place] [id number]. Julio Goddard IG # 0.04 10e3/ul Critically high 0.00-0.03 [facility] Comment on above: Performed By: #### C BC ####[facility] [address] [place] [address]Dr. Julio Goddard IG % 0.4 % Normal 0.0-0.5 [facility] Comment on above: Performed By: #### C BC ####[facility] [address] [place] [address]Dr. Julio Goddard LYMPH # 2.3 103/ul Normal 1.2-3.8 [facility] Comment on above: Performed By: #### C BC ####[facility] [address] [place] [address]Dr. Julio Goddard Lymphocytes/100 WBC (Bld) 23.6 % Normal 20.5-60.0 [facility] Comment on above: Performed By: #### C BC ####[facility] [address] [place] [address]Dr. Julio Goddard MANUAL DIFF REQ NO Normal [facility] Comment on above: Performed By: #### C BC ####[facility] [address] [place], [place] [address]Dr. Julio Goddard MCH (RBC) [Entitic mass] 29.3 pg Normal 26.7-34.0 [facility] Comment on above: Performed By: #### C BC ####[facility] [address] [place], [place] [address]Dr. Julio Goddard MCHC (RBC) [Mass/Vol] 32.6 g/dL Normal 29.9-35.2 [facility] Comment on above: Performed By: #### C BC ####[facility] [address] [place] [id number]. Julio Goddard MCV (RBC) [Entitic vol] 89.7 fL Normal 81.0-99.[address] [facility] Comment on above: Performed By: #### C BC ####[facility] [address] [place] [id number]. Julio Gdodard MONO # 0.6 103/ul Normal 0.3-0.8 [facility] Comment on above: Performed By: #### C BC ####[facility] [address] [place] [phone]. Julio Goddard Monocytes/100 WBC (Bld) 5.5 % Normal 1.7-12.[address] [facility] Comment on above: Performed By: #### C BC ####[facility] [address] [place], [place] [id number]. Julio Goddard NEUT # 6.7 103/ul Critically high 1.4-6.5 [facility] Comment on above: Performed By: #### C BC ####[facility] [address] [place], [place] [address]Dr. Julio Goddard Neutrophils/100 WBC (Bld) 67.5 % Normal 43.0-75.0 [facility] Comment on above: Performed By: #### C BC ####[facility] [address] [place], [place] [id number]. Julio Goddard Platelet mean volume (Bld) [Entitic vol] 10.2 fL Normal 9.5-13.5 [facility] Comment on above: Performed By: #### C BC ####[facility] [address] [place] [phone]. Julio Goddard PLT 296 103/ul Normal 150-450 [facility] Comment on above: Performed By: #### C BC ####[facility] [address] [place], [place] [id number]. Julio Goddard RBC 4.17 106/ul Critically low 4.20-5.40 [facility] Comment on above: Performed By: #### C BC ####[facility] [address] [place], [place] [address]Em. Julio Goddard WBC 9.9 103/ul Normal 4.0-11.0 [facility] Comment on above: Performed By: #### C BC ####[facility] [address] [place], [place] [address]Ck. Julio Goddard LIPID PROFILEon 10-27-2021 CHOL-HDL RATIO NORM SEE BELOW Normal [facility] Comment on above: Result Comment: 3.3 - 4.4 LOW RISK 4.4 - 7.1 AVERAGE RISK 7.1 - 11.0 MODERATE RISK >11.0 HIGH RISK Performed By: #### C MP, LIPID ####[facility] [address] [place] [phone]. Julio Goddard Cholesterol [Mass/Vol] 148 mg/dL Normal <=200 Th [facility] Comment on above: Performed By: #### C MP, LIPID ####[facility] [address] [place] [phone]. Julio Goddard Cholesterol in HDL [Mass/Vol] 60 mg/dL Normal 40-60 [facility] Comment on above: Performed By: #### C MP, LIPID ####[facility] [address] [place] [phone]. Julio Goddard Cholesterol in LDL [Mass/Vol] 72.2 mg/dL Normal [facility] Comment on above: Performed By: #### C MP, LIPID ####[facility] [address] [place] [phone]. Julio Goddard Cholesterol.total/Tila sterol in HDL [Mass ratio] 2.5 {ratio} Normal [facility] Comment on above: Performed By: #### C MP, LIPID ####[facility] [address] [place], [place] [address]Ax. Julio Goddard HDL NORMAL > or = 60 mg/dl - LO W CARDIOVASCULAR RISK <40 mg/dl - HIGH CARDIOVASCULAR RISK Normal [facility] Comment on above: Performed By: #### C MP, LIPID ####[facility] [address] [place] [phone]. Julio Rupesh LDL CALC NORMAL SEE BELOW Normal [facility] Comment on above: Result Comment: <100 mg/dl OPTIMAL 100 - 129 mg/dl NEAR OR ABOVE OPTIMAL 130 - 159 mg/dl BORDERLINE HIGH 160 - 189 mg/dl HIGH >190 mg/dl VERY HIGH Performed By: #### C MP, LIPID ####[facility] [address] [place], [place] [address]TiDr. Julio Goddard Triglyceride [Mass/Vol] 79 mg/dL Normal <=150 T [facility] Comment on above: Performed By: #### C MP, LIPID ####[facility] [address] [place], [place] [address]XrMarky Goddard VLDL CALC 15.8 mg/dL Normal [facility] Comment on above: Performed By: #### C MP, LIPID ####[facility] [address] [place], [place] [address]DzDr. Julio Goddard PROF 14(COMP METB)on 022 Albumin [Mass/Vol] 3.7 g/dL Normal 3.4-5.0 [facility] Comment on above: Performed By: #### C MP, LIPID #### [facility] [address] [place] [address] [address] Julio Goddard Albumin/Globulin [Mass ratio] 1.0 {ratio} Normal [facility] Comment on above: Performed By: #### C MP, LIPID #### [facility] [address] [place] [address] [address] Julio Goddard ALP [Catalytic activity/Vol] 53 U/L Normal 46-116 [facility] Comment on above: Performed By: #### C MP, LIPID #### [facility] [address] [place] [address] [address] Julio Goddard ALT [Catalytic activity/Vol] 15 U/L Normal 14-59 [facility] Comment on above: Performed By: #### C MP, LIPID #### [facility] [address] [place] [address] [address] Julio Goddard Anion gap [Moles/Vol] 16.1 mmol/L Normal [facility] Comment on above: Performed By: #### C MP, LIPID #### [facility] [address] [place] [address] [address] Julio Goddard AST [Catalytic activity/Vol] 8 U/L Critically low 15-37 [facility] Comment on above: Performed By: #### C MP, LIPID #### [facility] [address] [place] [address] [address] Julio Goddard Bilirubin [Mass/Vol] 0.5 mg/dL Normal 0.2-1.0 [facility] Comment on above: Performed By: #### C MP, LIPID #### [facility] [address] [place] [address] [address] Julio Goddard Calcium [Mass/Vol] 9.1 mg/dL Normal 8.5-10.1 [facility] Comment on above: Performed By: #### C MP, LIPID #### [facility] [address] [place] [address] [address] Juloi Goddard Chloride [Moles/Vol] 106 mmol/L Normal 98-107 [facility] Comment on above: Performed By: #### C MP, LIPID #### [facility] [address] [place] [address] [address] Julio Goddard CO2 [Moles/Vol] 24.1 mmol/L Normal 21.0-32.0 [facility] Comment on above: Performed By: #### C MP, LIPID #### [facility] [address] [place] [address] [address] Julio Goddard Creatinine [Mass/Vol] 1.40 mg/dL Critically high 0.55-1.02 [facility] Comment on above: Performed By: #### C MP, LIPID #### [facility] [address] [place] [address] [address] Julio Goddard EGFR-AF GREENLANDIC 47 mL/min/1.73m2 Critically low >=60 [facility] Comment on above: Performed By: #### C MP, LIPID #### [facility] [address] [place] [address] [address] Julio Goddard EGFR-NON AF GREENLANDIC 39 mL/min/1.73m2 Critically low >=60 [facility] Comment on above: Performed By: #### C MP, LIPID #### [facility] [address] [place] [address] [address] Julio Goddard Globulin (S) [Mass/Vol] 3.6 g/dL Normal T [facility] Comment on above: Performed By: #### C MP, LIPID #### [facility] [address] [place] [address] [address] Julio Goddard Glucose [Mass/Vol] 95 mg/dL Normal 74-106 [facility] Comment on above: Performed By: #### C MP, LIPID #### [facility] [address] [place] [address] [address] Julio Goddard Potassium [Moles/Vol] 4.2 mmol/L Normal 3.5-5.1 [facility] Comment on above: Performed By: #### C MP, LIPID #### [facility] [address] [place] [address] Dr. Julio Goddard Protein [Mass/Vol] 7.3 g/dL Normal 6.4-8.2 [facility] Comment on above: Performed By: #### C MP, LIPID #### [facility] [address] [place] [address] [address] Julio Goddard Sodium [Moles/Vol] 142 mmol/L Normal 136-145 [facility] Comment on above: Performed By: #### C MP, LIPID #### [facility] [address] [place] [address] [address] Julio Goddard Urea nitrogen [Mass/Vol] 18.0 mg/dL Normal 7.0-18.0 [facility] Comment on above: Performed By: #### C MP, LIPID #### [facility] [address] [place] [address] [address] Julio Goddard Urea nitrogen/Creatinine [Mass ratio] 12.9 mg/mg Normal [facility] Comment on above: Performed By: #### C MP, LIPID #### [facility] [address] [place] [address] Dr. Julio Goddard INSULINon 03-23-2021 Insulin 10.0 uIU/mL Normal 2.6-24.9 [facility] Comment on above: Performed By: #### I NSULIN #### [facility] [address] [place] [address] [address] Julio Goddard VIT D 25-OH LABCORPon 2020 Vitamin D, 25-Hydroxy 11.8 ng/mL Critically low 30.0-100.0 [facility] Comment on above: Result Comment: Swati min D deficiency has been defined by the [place] [employer] and an Endocrine Society practice guideline as a level of serum 25-OH vitamin D less than 20 ng/mL (1,2). The Endocrine Society went on to further define vitamin D insufficiency as a level between 21 and 29 ng/mL (2). 1. IOM ([place] [employer]). 2010. Dietary reference intakes for calcium and D. [place]: The National Academies Press. 2. Matt LANIER, Wilma IRVIN, Shiraz ELIZONDO, et al. Evaluation, treatment, and prevention of vitamin D deficiency: an Endocrine Society clinical practice guideline. JCEM. 2010; 96(7):1911-30. Performed By: #### V ITADLC ####[facility] [address] [place] [address]Dr. Julio Goddard CBC AUTO DIFFon 03-22-2021 BASO # 0.1 103/ul Normal 0.0-0.1 [facility] Comment on above: Performed By: #### C BC #### [facility] [address] [place] [address] [address] Julio Goddard Basophils/100 WBC (Bld) 0.8 % Normal 0.2-2.[address] [facility] Comment on above: Performed By: #### C BC #### [facility] [address] [place] [address] [address] Julio Goddard EO # 0.2 103/ul Normal 0.0-0.7 [facility] Comment on above: Performed By: #### C BC #### [facility] [address] [place] [address] [address] Julio Goddard Eosinophils/100 WBC (Bld) 2.6 % Normal 0.9-7.0 [facility] Comment on above: Performed By: #### C BC #### [facility] [address] [place] [address] Dr. Julio Goddard Erythrocyte distribution width (RBC) [Ratio] 14.2 % Normal 11.0-15.0 [facility] Comment on above: Performed By: #### C BC #### [facility] [address] [place] [address] Dr. Julio Goddard Hematocrit (Bld) [Volume fraction] 37.4 % Normal 36.0-48.0 [facility] Comment on above: Performed By: #### C BC #### [facility] [address] [place] [address] Dr. Julio Goddard Hemoglobin (Bld) [Mass/Vol] 11.9 g/dL Critically low 12.0-16.0 [facility] Comment on above: Performed By: #### C BC #### [facility] [address] [place] [address] Dr. Julio Goddard IG # 0.02 10e3/ul Normal 0.00-0.03 [facility] Comment on above: Performed By: #### C BC #### [facility] [address] [place] [address] Dr. Julio Goddard IG % 0.3 % Normal 0.0-0.5 [facility] Comment on above: Performed By: #### C BC #### [facility] [address] [place] [address] Dr. Julio Goddard LYMPH # 1.8 103/ul Normal 1.2-3.8 [facility] Comment on above: Performed By: #### C BC #### [facility] [address] [place] [address] Dr. Julio Goddard Lymphocytes/100 WBC (Bld) 27.6 % Normal 20.5-60.0 [facility] Comment on above: Performed By: #### C BC #### [facility] [address] [place] [address] Dr. Julio Goddard MANUAL DIFF REQ NO Normal [facility] Comment on above: Performed By: #### C BC #### [facility] [address] [place] [address] Dr. Julio Goddard MCH (RBC) [Entitic mass] 29.1 pg Normal 26.7-34.0 [facility] Comment on above: Performed By: #### C BC #### [facility] [address] [place] [address] Dr. Julio Goddard MCHC (RBC) [Mass/Vol] 31.8 g/dL Normal 29.9-35.2 [facility] Comment on above: Performed By: #### C BC #### [facility] [address] [place] [address] Dr. Julio Goddard MCV (RBC) [Entitic vol] 91.4 fL Normal 81.0-99.[address] [facility] Comment on above: Performed By: #### C BC #### [facility] [address] [place] [address] Dr. Julio Goddard MONO # 0.6 103/ul Normal 0.3-0.8 [facility] Comment on above: Performed By: #### C BC #### [facility] [address] [place] [address] Dr. Julio Goddard Monocytes/100 WBC (Bld) 8.7 % Normal 1.7-12.[address] [facility] Comment on above: Performed By: #### C BC #### [facility] [address] [place] [address] Dr. Julio Goddard NEUT # 3.9 103/ul Normal 1.4-6.5 [facility] Comment on above: Performed By: #### C BC #### [facility] [address] [place] [address] Dr. Julio Goddard Neutrophils/100 WBC (Bld) 60.0 % Normal 43.0-75.0 [facility] Comment on above: Performed By: #### C BC #### [facility] [address] [place] [address] Dr. Julio Goddard Platelet mean volume (Bld) [Entitic vol] 10.1 fL Normal 9.5-13.5 [facility] Comment on above: Performed By: #### C BC #### [facility] [address] [place] [address] [address] Julio Goddard PLT 263 103/ul Normal 150-450 [facility] Comment on above: Performed By: #### C BC #### [facility] [address] [place] [address] [address] Julio Goddard RBC 4.09 106/ul Critically low 4.20-5.[address] [facility] Comment on above: Performed By: #### C BC #### [facility] [address] [place] [address] [address] Julio Goddard WBC 6.5 103/ul Normal 4.0-11.0 [facility] Comment on above: Performed By: #### C BC #### [facility] [address] [place] [address] [address] Julio Goddard FREE THYROXINE INDEX T7on FTI 3.50 Normal [facility] Comment on above: Performed By: #### C MP, T7, LIPID, TSH #### [facility] [address] [place] [address] [address] Julio Goddard T3U 35.0 % Normal 23.5-40.5 [facility] Comment on above: Performed By: #### C MP, T7, LIPID, TSH #### [facility] [address] [place] [address] [address] Julio Goddard T4 [Mass/Vol] 10.00 ug/dL Normal 5.53-11.00 [facility] Comment on above: Performed By: #### C MP, T7, LIPID, TSH #### [facility] [address] [place] [address] [address] Julio Goddard GLYCOHEMOGLOBIN A1Con 2020 ADA RECOMMENDATION ADA THERAPEUTIC TARGET 6.0 - 7.0 ACTION SUGGESTED > 7.0 Normal [facility] Comment on above: Performed By: #### A 1C #### [facility] [address] [place] [address] [address] Julio Goddard Glucose [Mass/Vol] 103 mg/dL Normal [facility] Comment on above: Performed By: #### A 1C #### [facility] [address] [place] [address] [address] Julio Goddard HbA1c (Bld) [Mass fraction] 5.2 % Normal <=6.0 [facility] Comment on above: Performed By: #### A 1C #### [facility] [address] [place] [address] [address] Julio Goddard IRONon 03-22-2021 Iron [Mass/Vol] 55.0 ug/dL Normal 37.0-170.[address] [facility] Comment on above: Performed By: #### I MARIA E ####[facility] [address] [place] [address]Dr. Julio Goddard LIPID PROFILEon 03-22-2021 CHOL-HDL RATIO NORM SEE BELOW Normal [facility] Comment on above: Result Comment: 3.3 - 4.4 LOW RISK 4.4 - 7.1 AVERAGE RISK 7.1 - 11.0 MODERATE RISK >11.0 HIGH RISK Performed By: #### C MP, T7, LIPID, TSH #### [facility] [address] [place] [address] [address] Julio Goddard Cholesterol [Mass/Vol] 163 mg/dL Normal <=200 Th [facility] Comment on above: Performed By: #### C MP, T7, LIPID, TSH #### [facility] [address] [place] [address] [address] Julio Goddard Cholesterol in HDL [Mass/Vol] 65 mg/dL Normal [facility] Comment on above: Performed By: #### C MP, T7, LIPID, TSH #### [facility] [address] [place] [address] [address] Julio Goddard Cholesterol in LDL [Mass/Vol] 80.8 mg/dL Normal [facility] Comment on above: Performed By: #### C MP, T7, LIPID, TSH #### [facility] [address] [place] [address] [address] Julio Goddard Cholesterol.total/Tila sterol in HDL [Mass ratio] 2.5 {ratio} Normal [facility] Comment on above: Performed By: #### C MP, T7, LIPID, TSH #### [facility] [address] [place] [address] [address] Julio Goddard HDL NORMAL > or = 60 mg/dl - LO W CARDIOVASCULAR RISK <40 mg/dl - HIGH CARDIOVASCULAR RISK Normal [facility] Comment on above: Performed By: #### C MP, T7, LIPID, TSH #### [facility] [address] [place] [address] [address] Julio Goddard LDL CALC NORMAL SEE BELOW Normal [facility] Comment on above: Result Comment: <100 mg/dl OPTIMAL 100 - 129 mg/dl NEAR OR ABOVE OPTIMAL 130 - 159 mg/dl BORDERLINE HIGH 160 - 189 mg/dl HIGH >190 mg/dl VERY HIGH Performed By: #### C MP, T7, LIPID, TSH #### [facility] [address] [place] [address] [address] Julio Goddard Triglyceride [Mass/Vol] 86 mg/dL Normal <=150 T [facility] Comment on above: Performed By: #### C MP, T7, LIPID, TSH #### [facility] [address] [address] [address] Julio Goddard VLDL CALC 17.2 mg/dL Normal [facility] Comment on above: Performed By: #### C MP, T7, LIPID, TSH #### [facility] [address] [address] [address] Julio Goddard PROF 14(COMP METB)on 021 Albumin [Mass/Vol] 3.5 g/dL Normal 3.5-5.0 [facility] Comment on above: Performed By: #### C MP, T7, LIPID, TSH #### [facility] [address] [address] [address] Julio Goddard Albumin/Globulin [Mass ratio] 1.0 {ratio} Normal [facility] Comment on above: Performed By: #### C MP, T7, LIPID, TSH #### [facility] [address] [address] [address] Julio Goddard ALP [Catalytic activity/Vol] 58 U/L Normal 38-126 [facility] Comment on above: Performed By: #### C MP, T7, LIPID, TSH #### [facility] [address] [address] [address] Julio Goddard ALT [Catalytic activity/Vol] 16 U/L Normal 9-52 [facility] Comment on above: Performed By: #### C MP, T7, LIPID, TSH #### [facility] [address] [address] [address] Julio Goddard Anion gap [Moles/Vol] 13.0 mmol/L Normal [facility] Comment on above: Performed By: #### C MP, T7, LIPID, TSH #### [facility] [address] [place] [address] Dr. Julio Goddard AST [Catalytic activity/Vol] 10 U/L Critically low 14-36 [facility] Comment on above: Performed By: #### C MP, T7, LIPID, TSH #### [facility] [address] [place] [address] Dr. Julio Goddard Bilirubin [Mass/Vol] 0.6 mg/dL Normal 0.2-1.3 [facility] Comment on above: Performed By: #### C MP, T7, LIPID, TSH #### [facility] [address] [address] [address] Julio Goddard Calcium [Mass/Vol] 9.4 mg/dL Normal 8.4-10.2 [facility] Comment on above: Performed By: #### C MP, T7, LIPID, TSH #### [facility] [address] [address] [address] Julio Goddard Chloride [Moles/Vol] 105 mmol/L Normal 98-107 [facility] Comment on above: Performed By: #### C MP, T7, LIPID, TSH #### [facility] [address] [address] [address] Julio Goddard CO2 [Moles/Vol] 28.3 mmol/L Normal 22.0-30.0 [facility] Comment on above: Performed By: #### C MP, T7, LIPID, TSH #### [facility] [address] [address] [address] Julio Goddard Creatinine [Mass/Vol] 1.37 mg/dL Critically high 0.52-1.04 [facility] Comment on above: Performed By: #### C MP, T7, LIPID, TSH #### [facility] [address] [address] [address] Julio Goddard EGFR-AF GREENLANDIC 48 mL/min/1.73m2 Critically low >=60 [facility] Comment on above: Performed By: #### C MP, T7, LIPID, TSH #### [facility] [address] [address] [address] Julio Goddard EGFR-NON AF GREENLANDIC 40 mL/min/1.73m2 Critically low >=60 [facility] Comment on above: Performed By: #### C MP, T7, LIPID, TSH #### [facility] [address] [place] [address] Dr. Julio Goddard Globulin (S) [Mass/Vol] 3.5 g/dL Normal [facility] Comment on above: Performed By: #### C MP, T7, LIPID, TSH #### [facility] [address] [place] [address] Dr. Julio Goddard Glucose [Mass/Vol] 110 mg/dL Critically high 74-[address] [facility] Comment on above: Performed By: #### C MP, T7, LIPID, TSH #### [facility] [address] [place] [address] Dr. Julio Goddard Potassium [Moles/Vol] 4.3 mmol/L Normal 3.4-5.0 [facility] Comment on above: Performed By: #### C MP, T7, LIPID, TSH #### [facility] [address] [place] [address] Dr. Julio Goddard Protein [Mass/Vol] 7.0 g/dL Normal 6.1-8.2 [facility] Comment on above: Performed By: #### C MP, T7, LIPID, TSH #### [facility] [address] [place] [address] Dr. Julio Goddard Sodium [Moles/Vol] 142 mmol/L Normal 137-145 [facility] Comment on above: Performed By: #### C MP, T7, LIPID, TSH #### [facility] [address] [address] [address] Julio Goddard Urea nitrogen [Mass/Vol] 13.0 mg/dL Normal 7.0-17.0 [facility] Comment on above: Performed By: #### C MP, T7, LIPID, TSH #### [facility] [address] [address] [address] Julio Goddard Urea nitrogen/Creatinine [Mass ratio] 9.5 mg/mg Normal [facility] Comment on above: Performed By: #### C MP, T7, LIPID, TSH #### [facility] [address] [place] [address] Dr. Julio Goddard TSHon 03-22-2021 TSH 2.734 uIU/mL Normal 0.470-4.680 [facility] Comment on above: Performed By: #### C MP, T7, LIPID, TSH #### [facility] [address] [address] [address] Julio Goddard TSH RANGE SEE BELOW Normal [facility] Comment on above: Result Comment: <0.3 4 UIU/ml HYPERTHYROID 0.34-5.60 UIU/ml EUTHYROID >5.60 UIU/ml HYPOTHYROID Performed By: #### C MP, T7, LIPID, TSH #### [facility] [address] [place] [address] Dr. Julio Goddard Vital Signs Date Time Vital Sign Value Performing Clinician Facility 11-11-2024 10:35-040 Body height 157.5 cm Gilmer Rivera DPM Work Phone: [facility] 11-11-2024 10:35-0400 Body mass index (BMI) [Ratio] 36.21 kg/m2 Gilmer Rivera DPM Work Phone: [facility] 11-11-2024 10:35-040 Body weight 89.81 kg Gilmer Rivera DPM Work Phone: [facility] 11-11-2024 10:35-0400 Respiratory rate 18 /min Gilmer Rivera DPM Work Phone: [facility] 10-13-2024 13:52-0400 Body height 157.5 cm Gilmer Brown DPM Work Phone: [facility] 10-13-2024 13:52-0400 Body mass index (BMI) [Ratio] 36.21 kg/m2 Gilmer Brown DPM Work Phone: [facility] 10-13-2024 13:52-0400 Body weight 89.81 kg Gilmer Brown DPM Work Phone: [facility] 10-13-2024 13:52-0400 Respiratory rate 16 /min Gilmer Brown DPM Work Phone: [facility] 09-10-2024 16:25-0400 Body height 157.5 cm Gilmer Brown DPM Work Phone: [facility] 09-10-2024 16:25-0400 Body mass index (BMI) [Ratio] 36.21 kg/m2 Gilmer Brown DPM Work Phone: [facility] 09-10-2024 16:25-0400 Body weight 89.81 kg Gilmer Brown DPM Work Phone: [facility] 09-10-2024 16:25-0400 Respiratory rate 16 /min Gilmer Brown DPM Work Phone: [facility] 09-03-2024 15:34-0400 Body height 157.5 cm Gilmer Brown DPM Work Phone: [facility] 09-03-2024 15:34-0400 Body mass index (BMI) [Ratio] 36.21 kg/m2 Gilmer Brown DPM Work Phone: [facility] 09-03-2024 15:34-0400 Body weight 89.81 kg Gilmer Brown DPM Work Phone: [facility] 09-03-2024 15:34-0400 Respiratory rate 18 /min Gilmer Brown DPM Work Phone: [facility] 08-11-2024 13:16-0400 Body height 157.5 cm Gilmer Brown DPM Work Phone: [facility] 08-11-2024 13:16-0400 Body mass index (BMI) [Ratio] 36.21 kg/m2 Gilmer Brown DPM Work Phone: [facility] 08-11-2024 13:16-0400 Body weight 89.81 kg Gilmer Brown DPM Work Phone: [facility] 08-11-2024 13:16-0400 Respiratory rate 16 /min Gilmer Brown DPM Work Phone: [facility] 07-21-2024 11:02-0400 Body height 157.5 cm Gilmer Brown DPM Work Phone: [facility] 07-21-2024 11:02-0400 Body mass index (BMI) [Ratio] 36.21 kg/m2 Gilmer Brown DPM Work Phone: [facility] 07-21-2024 11:02-0400 Body weight 89.81 kg Gilmer Brown DPM Work Phone: [facility] 07-21-2024 11:02-0400 Respiratory rate 18 /min Gilmer Brown DPM Work Phone: [facility] 07-08-2024 14:13-0400 Body height 157.5 cm Gilmer Brown DPM Work Phone: [facility] 07-08-2024 14:13-0400 Body mass index (BMI) [Ratio] 36.21 kg/m2 Gilmer Brown DPM Work Phone: [facility] 07-08-2024 14:13-0400 Body weight 89.81 kg Gilmer Brown DPM Work Phone: [facility] 07-08-2024 14:13-0400 Respiratory rate 18 /min Gilmer Brown DPM Work Phone: [facility] 02-12-2024 08:50-0500 Body height 157.5 cm Angelo De La Cruz MD Work Phone: [facility] 02-12-2024 08:50-0500 Body mass index (BMI) [Ratio] 34.75 kg/m2 Angelo De La Cruz MD Work Phone: [facility] 02-12-2024 08:50-0500 Body weight 86.18 kg Angelo De La Cruz MD Work Phone: [facility] 02-12-2024 08:50-0500 Diastolic blood pressure 76 mm[Hg] Angelo De La Cruz MD Work Phone: [facility] 02-12-2024 08:50-0500 Systolic blood pressure 119 mm[Hg] Angelo De La Cruz MD Work Phone: [facility] 02-05-2024 10:32-0500 Body height 157.5 cm Angelo De La Cruz MD Work Phone: [facility] 02-05-2024 10:32-0500 Body mass index (BMI) [Ratio] 34.75 kg/m2 Angelo De La Cruz MD Work Phone: [facility] 02-05-2024 10:32-0500 Body weight 86.18 kg Angelo De La Cruz MD Work Phone: [facility] 02-05-2024 10:32-0500 Diastolic blood pressure 81 mm[Hg] Angelo De La Cruz MD Work Phone: [facility] 02-05-2024 10:32-0500 Systolic blood pressure 121 mm[Hg] Angelo De La Cruz MD Work Phone: [facility] 11-27-2023 14:51-0400 Blood Pressure Location PRANAV CARVALHO [facility] 11-27-2023 14:51-0400 Diastolic blood pressure 96 mm[Hg] PRANAV CARVALHO [facility] 11-27-2023 14:51-0400 Heart rate 66 /min PRANAV DEVEN [facility] 11-27-2023 14:51-0400 Systolic blood pressure 144 mm[Hg] PRANAV DEVEN [facility] 08-21-2023 09:39-0400 Blood Pressure Location PRANAV DEVEN [facility] 08-21-2023 09:39-0400 Diastolic blood pressure 63 mm[Hg] PRANAV DEVEN [facility] 08-21-2023 09:39-0400 Heart rate 74 /min PRANAV DEVEN [facility] 08-21-2023 09:39-0400 Respiratory rate 19 /min PRANAV DEVEN [facility] 08-21-2023 09:39-0400 Systolic blood pressure 108 mm[Hg] PRANAV DEVEN [facility] 05-30-2022 13:47-0500 Body height 157.5 cm Scott Mcallister MD Work Phone: [facility] 05-30-2022 13:47-0500 Body mass index (BMI) [Ratio] 32.74 kg/m2 Scott Mcallister MD Work Phone: [facility] 05-30-2022 13:47-0500 Body weight 81.19 kg Scott Mcallister MD Work Phone: [facility] 05-30-2022 13:47-0500 Diastolic blood pressure 84 mm[Hg] Scott Mcallister MD Work Phone: [facility] 05-30-2022 13:47-0500 Heart rate 76 /min Scott Mcallister MD Work Phone: [facility] 05-30-2022 13:47-0500 Respiratory rate 16 /min Scott Mcallister MD Work Phone: [facility] 05-30-2022 13:47-0500 SaO2% (BldA) [Mass fraction] 97 % Scott Mcallister MD Work Phone: [facility] 05-30-2022 13:47-0500 Systolic blood pressure 129 mm[Hg] Scott Mcallister MD Work Phone: [facility] 02-28-2022 12:48-0500 Body height 157.5 cm Scott Mcallister MD Work Phone: [facility] 02-28-2022 12:48-0500 Body mass index (BMI) [Ratio] 32.74 kg/m2 Scott Mcallister MD Work Phone: [facility] 02-28-2022 12:48-0500 Body weight 81.19 kg Scott Mcallister MD Work Phone: [facility] 02-28-2022 12:48-0500 Diastolic blood pressure 83 mm[Hg] Scott Mcallister MD Work Phone: [facility] 02-28-2022 12:48-0500 Heart rate 78 /min Scott Mcallister MD Work Phone: [facility] 02-28-2022 12:48-0500 Respiratory rate 18 /min Scott Mcallister MD Work Phone: [facility] 02-28-2022 12:48-0500 SaO2% (BldA) [Mass fraction] 95 % Scott Mcallister MD Work Phone: [facility] 02-28-2022 12:48-0500 Systolic blood pressure 132 mm[Hg] Scott Mcallister MD Work Phone: [facility] 01-05-2022 11:19-0400 Diastolic blood pressure 79 mm[Hg] DO Justin Francisco Work Phone: [facility] 01-05-2022 11:19-0400 Heart rate 75 /min DO Justin Francisco Work Phone: [facility] 01-05-2022 11:19-0400 Respiratory rate 18 /min DO Justin Francisco Work Phone: [facility] 01-05-2022 11:19-0400 SaO2% (BldA) [Mass fraction] 97 % DO Justin Francisco Work Phone: [facility] 01-05-2022 11:19-0400 Systolic blood pressure 126 mm[Hg] DO Justin Francisco Work Phone: [facility] 01-05-2022 08:17-0400 Body temperature 97.5 [degF] DO Justin Francisco Work Phone: [facility] 01-05-2022 04:44-0400 Body weight 79.8 kg DO Justin Francisco Work Phone: [facility] 01-04-2022 11:34-0400 Body height 157.48 cm DO Justin Francisco Work Phone: [facility] 01-03-2022 17:04-0400 Diastolic blood pressure 110 mm[Hg] DO Justin Francisco Work Phone: [facility] 01-03-2022 17:04-0400 Heart rate 88 /min DO Justin Francisco Work Phone: [facility] 01-03-2022 17:04-0400 Respiratory rate 20 /min DO Justin Francisco Work Phone: [facility] 01-03-2022 17:04-0400 SaO2% (BldA) [Mass fraction] 97 % DO Justin Francisco Work Phone: [facility] 01-03-2022 17:04-0400 Systolic blood pressure 180 mm[Hg] DO Justin Francisco Work Phone: [facility] 01-03-2022 14:43-0400 Body height 157.48 cm DO Justin Francisco Work Phone: [facility] 01-03-2022 14:43-0400 Body weight 80 kg DO Justin Francisco Work Phone: [facility] 01-03-2022 13:59-0400 Body temperature 98.5 [degF] DO Justin Francisco Work Phone: [facility] 10-14-2021 13:13-0400 Body height 157.5 cm Scott Mcallister MD Work Phone: [facility] 10-14-2021 13:13-0400 Body mass index (BMI) [Ratio] 32.92 kg/m2 Scott Mcallister MD Work Phone: [facility] 10-14-2021 13:13-0400 Body weight 81.65 kg Uprani Mcallister MD Work Phone: [facility] 10-14-2021 13:13-0400 Diastolic blood pressure 85 mm[Hg] Scott Mcallister MD Work Phone: [facility] 10-14-2021 13:13-0400 Heart rate 76 /min Scott Mcallister MD Work Phone: [facility] 10-14-2021 13:13-0400 Respiratory rate 16 /min Scott Mcallister MD Work Phone: [facility] 10-14-2021 13:13-0400 SaO2% (BldA) [Mass fraction] 95 % Scott cMallister MD Work Phone: [facility] 10-14-2021 13:13-0400 Systolic blood pressure 125 mm[Hg] Scott Mcallister MD Work Phone: [facility] 07-19-2021 12:55-0400 Body height 157.5 cm Scott Mcallister MD Work Phone: [facility] 07-19-2021 12:55-0400 Body mass index (BMI) [Ratio] 32.92 kg/m2 Scott Mcallister MD Work Phone: [facility] 07-19-2021 12:55-0400 Body weight 81.65 kg Scott Mcallister MD Work Phone: [facility] 07-19-2021 12:55-0400 Diastolic blood pressure 86 mm[Hg] Scott Mcallister MD Work Phone: [facility] 07-19-2021 12:55-0400 Heart rate 67 /min Scott Mcallister MD Work Phone: [facility] 07-19-2021 12:55-0400 Respiratory rate 16 /min Scott Mcallister MD Work Phone: [facility] 07-19-2021 12:55-0400 SaO2% (BldA) [Mass fraction] 98 % Scott Mcallister MD Work Phone: [facility] 07-19-2021 12:55-0400 Systolic blood pressure 126 mm[Hg] Scott Mcallister MD Work Phone: [facility] 09-24-2020 13:12-0400 Body height 157.5 cm Scott Mcallister MD Work Phone: [facility] 09-24-2020 13:12-0400 Body mass index (BMI) [Ratio] 32.92 kg/m2 Scott Mcallister MD Work Phone: [facility] 09-24-2020 13:12-0400 Body weight 81.65 kg Scott Mcallister MD Work Phone: [facility] 09-24-2020 13:12-0400 Diastolic blood pressure 89 mm[Hg] Scott Mcallister MD Work Phone: [facility] 09-24-2020 13:12-0400 Heart rate 67 /min Scott Mcallister MD Work Phone: [facility] 09-24-2020 13:12-0400 Respiratory rate 16 /min Scott Mcallister MD Work Phone: [facility] 09-24-2020 13:12-0400 SaO2% (BldA) [Mass fraction] 95 % Scott Mcallister MD Work Phone: [facility] 09-24-2020 13:12-0400 Systolic blood pressure 146 mm[Hg] Scott Mcallister MD Work Phone: [facility] 07-27-2020 12:59-0400 Body height 165.1 cm Scott Mcallister MD Work Phone: [facility] 07-27-2020 12:59-0400 Body mass index (BMI) [Ratio] 22.63 kg/m2 Scott Mcallister MD Work Phone: [facility] 07-27-2020 12:59-0400 Body weight 61.69 kg Scott Mcallister MD Work Phone: [facility] 05-17-2020 13:11-0500 BP Diastolic 103 mm[Hg] [facility] 05-17-2020 13:11-0500 BP Systolic 163 mm[Hg] [facility] 05-17-2020 13:11-0500 Height 157.5 cm [facility] 05-17-2020 13:11-0500 Pulse (Heart Rate) 66 /min [facility] 05-17-2020 13:11-0500 Pulse Oximetry 96 % [facility] 05-17-2020 13:11-0500 Respiratory Rate 16 /min [facility] Encounters Encounter Date Encounter Type Care Provider Facility Start: 03-10-2025 ambulatory Nicolle Beck Facility:[facility] Start: 12-02-2024 End: 12-02-2024 ambulatory Nicolle Beck Facility:[facility] Start: 12-02-2024 End: 12-02-2024 Patient encounter procedure [facility] B[facility]k [facility] Start: 11-11-2024 End: 11-11-2024 Isabela Boo Brown DPM Work Phone: [facility] Start: 11-11-2024 End: 11-11-2024 Bamboo flowsheet Gilmer Rivera DPM Work Phone: [facility] Start: 11-11-2024 End: 11-11-2024 ambulatory GILMER RIVERA Not Available Start: 11-11-2024 End: 11-11-2024 Office outpatient visit 15 minutes Gilmer Rivera DPM Work Phone: [facility] Comment on above: DJD (degenerative anjelica int disease), ankle and foot, left (Primary Dx); Contracture of right ankle Start: 10-13-2024 End: 10-13-2024 Bamboo flowsheet Gilmer Rivera DPM Work Phone: [facility] Start: 10-13-2024 End: 10-13-2024 Bamboo flowsheet Gilmer Rivera DPM Work Phone: [facility] Start: 10-13-2024 End: 10-13-2024 ambulatory GILMER RIVERA Not Available Start: 10-13-2024 End: 10-13-2024 Office outpatient visit 25 minutes Gilmer Rivera DPM Work Phone: [facility] Comment on above: DJD (degenerative anjelica int disease), ankle and foot, left (Primary Dx); Lisfranc dislocation, left, initial encounter Start: 09-29-2024 End: 09-29-2024 Patient encounter procedure Gilmer Rivera DPM -CT Scan [facility] Work Phone: Start: 09-29-2024 End: 09-29-2024 ambulatory Vicky Arnett MD Work Phone: [facility] Work Phone: Start: 09-10-2024 End: 09-10-2024 Office outpatient visit 25 minutes Gilmer Rivera DPM Work Phone: [facility] Comment on above: Other physeal fractu re of left metatarsal, initial encounter for closed fracture (Primary Dx); DJD (degenerative joint disease), ankle and foot, left; Lisfranc dislocation, left, initial encounter; Capsulitis of metatarsophalangeal (MTP) joint of left foot Start: 09-10-2024 End: 09-10-2024 ambulatory GILMER RIVERA Not Available Start: 09-10-2024 End: 09-10-2024 Bamboo flowsheet Gilmer Rivera DPM Work Phone: [facility] Start: 09-10-2024 End: 09-10-2024 Bamboo flowsheet Gilmer A Brown DPM Work Phone: [facility] Start: 09-03-2024 End: 09-03-2024 Office outpatient visit 25 minutes Gilmer Rivera DPM Work Phone: [facility] Comment on above: DJD (degenerative anjelica int disease), ankle and foot, left (Primary Dx); Lisfranc dislocation, left, initial encounter; Other physeal fracture of left metatarsal, initial encounter for closed fracture; Capsulitis of metatarsophalangeal (MTP) joint of left foot Start: 09-03-2024 End: 09-03-2024 ambulatory GILMER RIVERA Not Available Start: 09-03-2024 End: 09-03-2024 Bamboo flowskaylie Robertss Arlyn Rivera DPM Work Phone: [facility] Start: 09-03-2024 End: 09-03-2024 Bamboo flowskaylie Robertss Arlyn Rivera DPM Work Phone: [facility] Start: 08-11-2024 End: 08-11-2024 Bamboo flowskaylie Robertss Arlyn Rivera DPM Work Phone: [facility] Start: 08-11-2024 End: 08-11-2024 Bamboo flowsheet Gilmer Arlyn Brown DPM Work Phone: [facility] Start: 08-11-2024 End: 08-11-2024 Office outpatient visit 25 minutes Gilmer Arlyn Rivera DPM Work Phone: [facility] Comment on above: DJD (degenerative anjelica int disease), ankle and foot, left (Primary Dx); Lisfranc dislocation, left, initial encounter Start: 08-11-2024 End: 08-11-2024 ambulatory GILMER RIVERA Not Available Start: 07-21-2024 End: 07-21-2024 Bamboo flowsheet Gilmer A Brown DPM Work Phone: [facility] Start: 07-21-2024 End: 07-21-2024 Bamboo flowsheet Gilmer A Brown DPM Work Phone: [facility] Start: 07-21-2024 End: 07-21-2024 Office outpatient visit 25 minutes Gilmer Arlyn Rivera DPM Work Phone: [facility] Comment on above: DJD (degenerative anjelica int disease), ankle and foot, left (Primary Dx); Lisfranc dislocation, left, initial encounter Start: 07-21-2024 End: 07-21-2024 ambulatory GILMER Aryln RIVERA Not Available Start: 07-08-2024 End: 07-08-2024 ambulatory GILMER Arlyn RIVERA Not Available Start: 07-08-2024 End: 07-08-2024 Bamboo flowsheet Gilmer A Brown DPM Work Phone: [facility] Start: 07-08-2024 End: 07-08-2024 Bamboo flowsheet Gilmer A Brown DPM Work Phone: [facility] Start: 07-08-2024 End: 07-08-2024 Office outpatient new 45 minutes Gilmer Arlyn Rivera DPM Work Phone: [facility] Comment on above: Lisfranc dislocation , left, initial encounter (Primary Dx); Plantar fasciitis; Contusion of left foot, initial encounter Start: 07-02-2024 End: 07-02-2024 ambulatory Neel FALL Facility:[id number] Start: 06-17-2024 End: 06-17-2024 ambulatory Vicky Arnett Facility:[facility] Start: 06-02-2024 ambulatory Nicolle Beck Facility:[facility] Start: 02-12-2024 End: 02-12-2024 Isabela De La Cruz MD Work Phone: [facility] Start: 02-12-2024 End: 02-12-2024 Jennifero mere De La Cruz MD Work Phone: [facility] Start: 02-12-2024 End: 02-12-2024 Office outpatient visit 25 minutes Angelo De La Cruz MD Work Phone: [facility] Comment on above: Sudden right hearing loss (Primary Dx); Foreign body of right ear, initial encounter Start: 02-12-2024 End: 02-12-2024 Clinical Support Lilibeth Pena [facility] Work Phone: [facility] Comment on above: Sensorineural hearin g loss (SNHL) of both ears (Primary Dx); Ear pressure, right Start: 02-05-2024 End: 02-05-2024 Bamboo mere De La Cruz MD Work Phone: [facility] Start: 02-05-2024 End: 02-05-2024 Jennifero mere De La Cruz MD Work Phone: [facility] Start: 02-05-2024 End: 02-05-2024 Office outpatient new 30 minutes Angelo De La Cruz MD Work Phone: [facility] Comment on above: Foreign body of righ t ear, initial encounter (Primary Dx) Start: 02-05-2024 End: 02-05-2024 ambulatory ANGELO DE LA CRUZ Not Available Start: 11-27-2023 End: 11-27-2023 Patient encounter procedure PRANAV CARVALHO [facility] Start: 11-27-2023 End: 11-27-2023 Refill Scott Mcallister MD Work Phone: [facility] Start: 11-02-2023 End: 11-04-2023 ambulatory [facility] Start: 11-02-2023 End: 11-04-2023 ambulatory [facility] Start: 09-28-2023 End: 09-30-2023 ambulatory [facility] Start: 09-28-2023 End: 09-30-2023 Subsequent hospital visit by physician Vicky Arnett MD Work Phone: [facility] Start: 08-21-2023 End: 08-21-2023 Patient encounter procedure PRANAV CARVALHO [facility] Start: 05-30-2022 End: 05-30-2022 ambulatory [facility] [facility] Start: 05-30-2022 End: 05-30-2022 Office outpatient visit 15 minutes Scott Mcallister MD Work Phone: [facility] Comment on above: Bipolar 1 disorder, mixed, mild (HCC) (Primary Dx); Insomnia due to mental disorder; VICKIE (generalized anxiety disorder) Start: 05-10-2022 Refill Scott Mcallister MD Work Phone: [facility] Start: 03-30-2022 Refill Scott Mcallister MD Work Phone: [facility] Comment on above: 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; VICKIE (generalized anxiety disorder) Start: 02-28-2022 End: 02-28-2022 ambulatory UPENDER [employer] [facility] Start: 02-28-2022 End: 02-28-2022 Office outpatient visit 25 minutes Scott Mcallister MD Work Phone: [facility] Comment on above: Bipolar 1 disorder, depressed, mild (HCC) (Primary Dx); Insomnia due to mental disorder; VICKIE (generalized anxiety disorder) Start: 01-19-2022 End: 01-20-[address] VICKY ARNETT Facility:H1 Start: 01-09-2022 End: 01-09-2022 ambulatory [facility] Start: 01-03-2022 End: 01-05-2022 Evaluation and management of inpatient DO Justin Francisco Work Phone: [facility] [place] [facility] Start: 01-03-2022 End: 01-05-2022 observation encounter DO Justin Francisco Work Phone: [facility] Work Phone: Start: 10-27-2021 End: 10-28-2021 ambulatory SCOTT MCALLISTER Facility:H1 Start: 10-14-2021 End: 10-14-2021 ambulatory [facility] Start: 10-14-2021 End: 10-14-2021 Office outpatient visit 15 minutes Scott Mcallister MD Work Phone: [facility] Comment on above: Bipolar 1 disorder, depressed, moderate (HCC) (Primary Dx); Insomnia due to mental disorder; VICKIE (generalized anxiety disorder) Start: 10-05-2021 ambulatory [facility] Start: 07-22-2021 ambulatory [facility] Start: 07-19-2021 End: 07-19-2021 ambulatory [facility] Start: 07-19-2021 End: 07-19-2021 Office outpatient visit 15 minutes Scott Mcallister MD Work Phone: [facility] Comment on above: Bipolar 1 disorder, depressed, moderate (HCC) (Primary Dx); Insomnia due to mental disorder; VICKIE (generalized anxiety disorder) Start: 05-16-2021 Refill Sarah Leigh MA [facility] Comment on above: 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 (Primary Dx) 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 Start: 03-30-2021 Encounter for [facility] adult medical examination without abnormal findings DR VICKY ARNETT [facility] Start: 03-29-2021 Refill Nellie Sumner MA [facility] Start: 03-22-2021 End: 03-23-[address] VICKY ARNETT Facility:H1 Start: 03-22-2021 End: 03-23-2021 Encounter for general adult medical examination without abnormal findings DR VICKY ARNETT Facility:H1 Start: 12-07-2020 Refill Lidia Mahoney LPN [facility] Comment on above: 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; VICKIE (generalized anxiety disorder) Start: 09-24-2020 End: 09-24-2020 Office outpatient visit 25 minutes Uprani Mcallister MD Work Phone: [facility] Comment on above: Bipolar 1 disorder, depressed, mild (HCC) (Primary Dx); Insomnia due to mental disorder; VICKIE (generalized anxiety disorder) Start: 08-31-2020 End: 08-31-2020 Refill Lidia Mahoney LPN [facility] Comment on above: 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; VICKIE (Generalized Anxiety Disorder) Start: 07-27-2020 End: 07-27-2020 Phys/qhp telephone evaluation 11-20 min Uprani Mcallister MD Work Phone: [facility] Comment on above: Bipolar 1 disorder, depressed, mild (HCC) (Primary Dx); Insomnia due to mental disorder; VICKIE (Generalized Anxiety Disorder) Start: 05-17-2020 End: 05-17-2020 Office outpatient visit 15 minutes Upender [employer] Work Phone: [facility] Comment on above: Bipolar 1 disorder, depressed, mild (HCC) (Primary Dx); VICKIE (Generalized Anxiety Disorder); Insomnia due to mental disorder Start: 04-06-2020 End: 04-06-2020 Phys/qhp telephone evaluation 11-20 min Upender [employer] Work Phone: [facility] Comment on above: Bipolar 1 disorder, depressed, mild (HCC); VICKIE (Generalized Anxiety Disorder); Insomnia due to mental disorder Procedures Date Procedure Procedure Detail Performing Clinician Start: 09-29-2024 CT of left foot Vicky Arnett MD Work Phone: Start: 09-03-2024 Radex foot complete minimum 3 views Gilmer Rivera DPM Work Phone: Start: 07-08-2024 Radex foot complete minimum 3 views Gilmer Rivera DPM Work Phone: Start: 07-02-2024 Colonoscopy Nicolle goodman Start: 02-12-2024 AUDITORY FUNCTION TESTS Lilibethchen Pena CCC-A Work Phone: Start: 01-03-2022 CT of head without contrast DO Justin Francisco Work Phone: Start: 01-01-2016 Colonoscopy Nicolle Weber na Start: 05-19-2013 Colonoscopy Angelo neil MD Work Phone: Start: 04-02-2002 Kidney Blockage Surg ical Procedure PRANAV CARVALHO Start: 04-02-1997 Cholecystectomy MATT Singh DEVEN Fracture of tibia (disorder) Nicolle Beck Genital labium struc ture (body structure) PRANAV CARVALHO Hematoma (disorder) Nicolle Evans zia Removal of pilonidal cyst La uren Ebony SARS Antigen (LFIA) DO Ermias Francisco Work Phone: Trichilemmal cyst (disorder) PRANAV CARVALHO Urethral structure ( body structure) PRANAV CARVALHO Urine culture DO Justin Griffint on Work Phone: Urine culture DO Justin Griffint on Work Phone: Plan of Treatment Date Care Activity Detail Author Start: 12-12-2024 End: 12-12-2024 Patient encounter procedure 12/12/2024 9:30 AM EDT Office Visit [facility] [address] [place] [address] Gilmer Rivera DPM [address] [address] [facility] Start: 12-01-2024 Influenza vaccination [facility] Start: 09-10-2024 End: 09-10-2024 Patient encounter procedure 09/10/2024 4:20 PM EDT Office Visit [facility] [address] [place] [phone] Gilmer Rivera DPM [address] [address] DJD (degenerative joint disease), ankle and foot, left (Primary Dx); Lisfranc dislocation, left, initial encounter; Other physeal fracture of left metatarsal, initial encounter for closed fracture; Capsulitis of metatarsophalangeal (MTP) joint of left foot [facility] Comment on above: DJD (degenerative joint disease), ankle and foot, left (Primary Dx); Lisfranc dislocation, left, initial encounter; Other physeal fracture of left metatarsal, initial encounter for closed fracture; Capsulitis of metatarsophalangeal (MTP) joint of left foot Start: 09-03-2024 End: 09-03-2024 Patient encounter procedure 09/03/2024 3:40 PM EDT Office Visit [facility] [address] [place] [phone] Gilmer Rivera DPM [address] [address] DJD (degenerative joint disease), ankle and foot, left (Primary Dx); Lisfranc dislocation, left, initial encounter [facility] Comment on above: DJD (degenerative joint disease), ankle and foot, left (Primary Dx); Lisfranc dislocation, left, initial encounter Start: 08-11-2024 End: 08-11-2024 Patient encounter procedure 08/11/2024 1:20 PM EDT Office Visit [facility] [address] [place] [address] Gilmer Rivera, DPM [address] [address] DJD (degenerative joint disease), ankle and foot, left (Primary Dx); Lisfranc dislocation, left, initial encounter [facility] Comment on above: DJD (degenerative joint disease), ankle and foot, left (Primary Dx); Lisfranc dislocation, left, initial encounter Start: 07-21-2024 End: 07-21-2024 Patient encounter procedure 07/21/2024 11:10 AM EDT Office Visit [facility] [address] [place] [phone] Gilmer Rivera DPM [address] [address] DJD (degenerative joint disease), ankle and foot, left (Primary Dx); Lisfranc dislocation, left, initial encounter [facility] Comment on above: DJD (degenerative joint disease), ankle and foot, left (Primary Dx); Lisfranc dislocation, left, initial encounter Start: 07-08-2024 End: 07-08-2025 CT Foot - left WO contrast CT foot left wo IV contrast Imaging Routine Lisfranc dislocation, left, initial encounter Expected: 07/08/2024, Expires: 07/08/2025 [facility] Work Phone: Comment on above: Expected: 07/08/2024, Expires: Start: 02-05-2024 End: 02-05-2024 Patient encounter procedure 02/05/2024 10:30 AM EST Office Visit [facility] [address] [facility] [address] [place] [address] Angelo De La Cruz MD [address] [facility] [address] [place], [place] [id number] Arrived [facility] Comment on above: Arrived Start: 12-02-2023 Influenza vaccination Influenza Vaccine (#1) [facility] Start: 11-01-2023 Influenza vaccination Flu vaccine (Season Ended) [facility] Start: 05-19-2023 Screening for malignant neoplasm of colon [facility] Start: 2022 Respiratory Syncytial Virus (RSV) or age 60 yrs+ (1 - 1-dose 60+ series) Respiratory Syncytial Virus (RSV) or age 60 yrs+ (1 - 1-dose 60+ series) [facility] Start: 12-01-2022 COVID-19 Vaccine ( season) COVID-19 Vaccine ( season) [facility] Start: 05-30-2022 End: 05-30-2022 Patient encounter procedure 05/30/2022 Office Visit Psychiatry Scott Mcallister MD [address] [address] [place] [id number] [facility] Start: 01-09-2022 End: 01-09-2022 Patient encounter procedure 01/09/2022 Office Visit Psychiatry Scott Mcallister MD [address] [facility] [address] [place] [address] [facility] Start: 01-05-2022 [facility] Start: 01-04-2022 Comprehensive metabolic 2000 panel - Serum or Plasma [facility] Start: 01-04-2022 Lipid panel [facility] Start: 01-04-2022 Magnesium measurement [facility] Start: 01-04-2022 Phosphate [Mass/volume] in Serum or Plasma [facility] Start: 01-04-2022 [facility] Start: 01-03-2022 Referral to psychiatrist [facility] Start: 01-03-2022 Hospital admission [facility] Start: 01-03-2022 [facility] Start: 12-01-2021 Influenza vaccination [facility] Start: 10-14-2021 End: 10-14-2021 Patient encounter procedure 10/14/2021 Office Visit Psychiatry Scott Mcallister MD [address] [facility] [address] [place] [address] [facility] Start: 07-28-2021 COVID-19 Vaccine (4 - Booster for Pfizer series) COVID-19 Vaccine (4 - Booster for Pfizer series) [facility] Start: 07-15-2021 End: 07-15-2021 Patient encounter procedure 07/15/2021 Office Visit Psychiatry Scott Mcallister MD [address] [facility] [address] [place] [phone] [facility] Start: 05-24-2021 COVID-19 Vaccine (4 - Booster for Pfizer series) COVID-19 Vaccine (4 - Booster for Pfizer series) [facility] Start: 04-18-2021 End: 04-18-2021 Patient encounter procedure 04/18/2021 Office Visit Psychiatry Scott Mcallister MD [address] [facility] [address] [place] [address] [facility] Start: 01-12-2021 COVID-19 Vaccine (3 - Booster for Pfizer series) COVID-19 Vaccine (3 - Booster for Pfizer series) [facility] Start: 01-03-2021 End: 01-03-2021 Patient encounter procedure [facility] Start: 12-01-2020 Influenza vaccination [facility] Start: 09-24-2020 End: 09-24-2020 Patient encounter procedure 09/24/2020 Office Visit Psychiatry Scott Mcallister MD [address] [facility] [address] [place] [address] [phone] [facility] Start: 09-14-2020 End: 09-14-2020 Patient encounter procedure 09/14/2020 Office Visit Scott Moy MD [address] [facility] [address] [place] [address] [phone] [facility] Start: 09-10-2020 End: 09-10-2020 Office Visit 09/10/2020 Office Visit Psychiatry Scott Mcallister MD [address] [address] [phone] [facility] Start: 12-02-2019 Influenza vaccination given Sequential Influenza Vaccine (#1) [facility] Start: 2012 Administration of herpes zoster vaccine Zoster Vaccines (1 of 2) [facility] Start: 2012 Screening for malignant neoplasm of colon [facility] Start: 2012 Shingles vaccine (1 of 2) Shingles vaccine (1 of 2) [facility] Start: 12-12-2007 Screening for malignant neoplasm of colon [facility] Start: 2002 Lipid panel Lipids [facility] Start: 2002 Screening for malignant neoplasm of breast [facility] Start: 1992 Screening for malignant neoplasm of cervix [facility] Start: 12-12-1983 Screening for malignant neoplasm of cervix Pap Smear [facility] Start: 1981 DTaP/Tdap/Td vaccine (1 - Tdap) DTaP/Tdap/Td vaccine (1 - Tdap) [facility] Start: 1980 Hepatitis C antibody, confirmatory test Hepatitis C Screening [facility] Start: 1980 Hepatitis C screening [facility] Start: 1978 COVID-19 Vaccine (1 of 2) COVID-19 Vaccine (1 of 2) [facility] Start: 1977 HIV screening [facility] Start: 1974 Depression Screen Depression Screen [facility] Start: 1965 History and physical examination, annual for health maintenance Wellness Visit [facility] Start: 1962 Screening for malignant neoplasm of cervix Pap Smear [facility] Start: 1962 Screening for malignant neoplasm of colon [facility] Start: 1962 Screening mammography Mammogram [facility] Start: 1962 Tetanus vaccination Tetanus: Every 10yrs [facility] Bacteria identified in Urine by Culture [facility] Work Phone: End: 10-14-2022 Complete blood count with white cell differential, manual CBC and Differential Lab Routine Bipolar 1 disorder, depressed, moderate (HCC) 1 Occurrences starting 10/14/2021 until 10/14/2022 [facility] Comment on above: 1 Occurrences starting 10/14/2021 until 10/14/2022 End: 10-14-2022 Comprehensive metabolic 2000 panel - Serum or Plasma Comprehensive Metabolic Panel Lab Routine Bipolar 1 disorder, depressed, moderate (HCC) 1 Occurrences starting 10/14/2021 until 10/14/2022 [facility] Work Phone: Comment on above: 1 Occurrences starting 10/14/2021 until 10/14/2022 CT Foot - left WO contrast CT fo ot left wo IV contrast Imaging Routine Lisfranc dislocation, left, initial encounter Other physeal fracture of left metatarsal, initial encounter for closed fracture Ordered: 09/10/2024 [facility] Work Phone: Comment on above: Ordered: 09/10/2024 End: 10-14-2022 Lipid 1996 panel - Serum or Plasma Lipid Panel Lab Routine Bipolar 1 disorder, depressed, moderate (HCC) 1 Occurrences starting 10/14/2021 until 10/14/2022 [facility] Comment on above: 1 Occurrences starting 10/14/2021 until 10/14/2022 Patient Education High Blood Pre ssure (DC) Urinary Tract Infection, Adult (DC) Acute Kidney Injury (DC) Cefuroxime Hydralazine [facility] Work Phone: Patient referral [facility] Work Phone: Immunizations Immunization Date Immunization Notes Care Provider Aly oglesby 01-05-2022 influenza, injectabl e, quadrivalent, preservative free DO [facility] Work Phone: [facility] 01-05-2022 influenza virus vaccine, unspecified formulation Scott Mcallister MD Work Phone: [facility] 03-29-2021 COVID-19 mRNA, Comirnaty (Pfizer) DO [facility] Work Phone: [facility] 07-13-2020 COVID-19 mRNA, Comirnaty (Pfizer) DO [facility] Work Phone: [facility] 06-21-2020 COVID-19 mRNA, Comirnaty (Pfizer) DO [facility] Work Phone: [facility] Payers Date Payer Category Payer Self-pay 2022 Private Health Insurance [id number] 2014 Unknown [id number] 2014 Unknown MMO MED [employer] PPO [id number] 2014-Present [phone] [address] [place] [address] [id number] 1962 Unknown [id number] 2.16.840.1.465766.3.579.2.5 1962 Unknown [id number] 2.16.840.1.322511.3.579.2.5 1962 Unknown [id number] 2.16.840.1.476606.3.579.2.5 1962 Unknown [id number] 2.16.840.1.739228.3.579.2.5 1962 Unknown [id number] 2.16.840.1.611821.3.579.2.9 1962 Unknown [id number] 2.16.840.1.821024.3.579.2.9 03 1962 Unknown [id number] 2.16.840.1.379122.3.579.2.9 03 1962 Unknown [id number] 2.16.840.1.254419.3.579.2.9 1962 Unknown [id number] 2.16.840.1.520671.3.579.2.9 1962 Unknown [id number] 2.16.840.1.187430.3.579.2.9 1962 Unknown [id number] 2.16.840.1.607599.3.579.2.9 03 1962 Unknown [id number] 2.16.840.1.089579.3.579.2.1 74 1962 Unknown [id number] 2.16.840.1.630153.3.579.2.1 74 1962 Unknown [id number] 2.16.840.1.765380.3.579.2.1 74 1962 Unknown [id number] 2.16.840.1.881892.3.579.2.1 74 1962 Unknown [id number] 2.16.840.1.798749.3.579.2.1 259 1962 Unknown [id number] 2.16.840.1.557872.3.579.2.1 259 1962 Unknown [id number] 2.16.840.1.462264.3.579.2.1 259 1962 Unknown [id number] 2.16.840.1.654278.3.579.2.1 259 1962 Unknown [id number] 2.16.840.1.490263.3.579.2.1 259 1962 Unknown [id number] 2.16.840.1.021989.3.579.2.1 259 1962 Unknown [id number] 2.16.840.1.776832.3.579.2.1 259 1962 Unknown [id number] 2.16.840.1.290952.3.579.2.1 259 1962 Unknown [id number] 2.16.840.1.584579.3.579.2.1 259 1962 Unknown [id number] 2.16.840.1.272051.3.579.2.1 259 1962 Unknown [id number] 2.16.840.1.105729.3.579.2.1 259 1962 Unknown [id number] 2.16.840.1.773940.3.579.2.1 259 1962 Unknown [id number] 2.16.840.1.018508.3.579.2.7 27 1962 Unknown [id number] 2.16.840.1.016235.3.579.2.7 27 1962 Unknown [id number] 2.16.840.1.402998.3.579.2.7 27 1962 Unknown [id number] 2.16.840.1.664069.3.579.2.7 27 1962 Unknown [id number] 2.16.840.1.109776.3.579.2.7 27 1959 Unknown [id number] Unknown [id number] 2.16.840.1.203422.3.579.2.5 31 Social History Date Type Detail Facility Start: 04-06-2020 End: 12-02-2024 Tobacco smoking status NHIS Former smoker [facility] Start: 04-06-2020 End: 01-30-2024 Tobacco use and exposure Never used [facility] Start: 04-06-2020 End: 11-11-2024 Alcohol intake Ex-drinker (finding) [facility] Start: 1960 Sex Assigned At Not on file [facility] Exposure to SARS-CoV -2 (event) Unable to assess [facility] Start: 07-09-2021 End: 05-24-2022 Exposure to SARS-CoV-2 (event) Not sure [facility] Start: 01-03-2022 Tobacco smoking stat us NHIS Never smoked tobacco (finding) [facility] Start: 1960 Sex Assigned At Female F [facility] End: 04-02-2000 History of tobacco use Current smoker [facility] Start: 05-30-2022 End: 10-13-2024 History of Social function [facility] Start: 05-30-2022 End: 10-13-2024 Tobacco use panel [facility] Tobacco smoking status Never [facility]u [facility] End: 04-02-2000 History of tobacco use Cigarette Smoker [facility] Tobacco smoking stat NHIS Tobacco smoking consumption unknown [facility] Start: 06-20-2018 Sex Female (finding) [facility] Sexual Orientation [facility] Goals Date Patient Goal Desired Activity /State Functional Status Date Assessment Result Facility 11-27-2023 Functional Status N/A [facility] 08-21-2023 Functional Status N/A [facility] 01-05-2022 Functional status Patient at Baseline [facility] Work Phone: Mental Status Date Assessment Result Facility 01-05-2022 Cognitive function Cognitive Sta tus Patient at Baseline [facility] Work Phone: Clinical Notes 07-27-2020 to 12-02-2024 Gilmer Rivera DPM - 11/11/2024 10:20 AM EDKat Rivera DPM - 10/13/2024 1:50 PM Coco Rivera DPM - 09/10/2024 4:20 PM EDKat Rivera DPM - 09/03/2024 3:30 PM EDT Note Date & Type Note Facility 12-02-2024 Hospital Discharge instructions Patient Education 12/02/2024 10:54:12 Urinary Incontinence Urinary [...] nerve stimulation). ?For women, using a medical center director to prevent urine leaks. This is a [...] right after experiencing incontinence. General instructions Take [id number] and prescription medicines only as told by [...] important. Where to find more information [employer] [place] [employer] Diabetes and Digestive and Kidney Diseases: www.niddk.nih.gov [place] [employer]: www.urologyhealth.org Contact a health care [...] provider. Document Revised: 10/22/2020 Document Reviewed: 10/22/2020 [employer] Patient Education 2023 [employer]. 12/02/2024 10:54:09 Kidney Stones, Thur-we-Uxga Kidney Stones Kidney stones are rock-like masses that form inside of the kidneys. Kidneys are organs that make pee (urine). A kidney stone may move into other parts of the urinary tract, including: The tubes that connect the kidneys to the bladder (ureters). The bladder. The tube that carries urine out of the body (urethra). Kidney stones can cause very bad pain and can block the flow of pee. The stone usually leaves your body through your pee. A doctor may need to take out the stone. What are the causes? Kidney stones may be caused by: Too much calcium in the body. This may be caused by too much parathyroid hormone in the blood. Uric acid crystals in the bladder. The body makes uric acid when you eat certain foods. Narrowing of one or both of the ureters. A kidney blockage that you were born with. Past surgery on the kidney or the ureters. What increases the risk? You are more likely to develop this condition if: You have had a kidney stone in the past. Other people in your family have had kidney stones. You do not drink enough water. You eat a diet that is high in protein, salt (sodium), or sugar. You are very overweight (obese). What are the signs or symptoms? Symptoms of a kidney stone may include: Pain in the side of the belly, right below the ribs. Pain usually spreads to the groin. Needing to pee often or right away. Pain when peeing. Blood in your pee. Feeling like you may vomit (nauseous). Vomiting. Fever and chills. How is this treated? Treatment depends on the size, location, and makeup of the kidney stones. The stones will often pass out of the body when you pee. You may need to: Drink more fluid to help pass the stone. ?In some cases, you may be given fluids through an IV tube at the hospital. Take medicine for pain. Change your diet to help keep kidney stones from coming back. Sometimes, you may need: A procedure to break up kidney stones using a beam of light (laser) or shock waves. Surgery to remove the kidney stones. Follow these instructions at home: Medicines Take klng-ejp-rbagqst and prescription medicines only as told by your doctor. Ask your doctor if the medicine prescribed to you requires you to avoid driving or using machinery. Eating and drinking Drink enough fluid to keep your pee pale yellow. ?You may be told to drink at least 8 10 glasses of water each day. This will help you pass the stone. If told by your doctor, change your diet. You may be told to: ?Limit how much salt you eat. ?Eat more fruits and vegetables. ?Limit how much meat, poultry, fish, and eggs you eat. Follow instructions from your doctor about what you may eat and drink. General instructions Collect pee samples as told by your doctor. You may need to collect a pee sample: ?24 hours after a stone comes out. ?8 12 weeks after a stone comes out, and every 6 12 months after that. Strain your pee every time you pee. Use the strainer that your doctor recommends. Do not throw out the stone. Keep it so that it can be tested by your doctor. Keep all follow-up visits. You may need X-rays and ultrasounds to make sure the stone has come out. How is this prevented? To prevent another kidney stone: Drink enough fluid to keep your pee pale yellow. This is the best way to prevent kidney stones. Eat healthy foods. Avoid certain foods as told by your doctor. You may be told to eat less protein. Stay at a healthy weight. Where to find more information National Kidney Foundation (NKF): kidney.org U[employer] Care [employer] (UCF): urologyhealth.org Contact a doctor if: You have pain that gets worse or does not get better with medicine. Get help right away if: You have a fever or chills. You get very bad pain. You get new pain in your belly. You faint. You cannot pee. This information is not intended to replace advice given to you by your health care provider. Make sure you discuss any questions you have with your health care provider. Document Revised: 11/10/2022 Document Reviewed: 11/10/2022 [employer] Patient Education 2023 [employer]. Follow Up Care 06/18/2024 11:29:17 With:Nicolle Beck PA-C, URL Address: When:Within 3 Month(s) Comments:w/ [facility] 12-02-2024 Note Patient Education Urology Urinary Incontinence Urinary incontinence [...] A physical exam. ??? Tests, such as: ? Urine tests. ? [...] may include: ??? Lifestyle changes, such as: ? Quitting smoking. [...] and vegetables. ??? Behavioral changes, such as: ? Pelvic floor muscle exercises. ? Bladder training, such as lengthening the amount of time between bathroom breaks, or using the bathroom at regular intervals. ? Using techniques to suppress bladder urges. This can include distraction techniques or controlled breathing exercises. ??? Medicines, such as: ? Medicines to relax the bladder muscles and prevent bladder spasms. ? Medicines to help slow or prevent the growth of a man's prostate. ? Botox injections. These can help relax the bladder muscles. ??? Treatments, such as: ? Using pulses of electricity to help change bladder reflexes (electrical nerve stimulation). ? For women, using a medical center director to prevent urine leaks. This is a [...] skin damage. Ask your health care provider (more content not included)... [facility] 11-11-2024 History of Present illness Narrative Patient: Kathy Porter : 1960 PCP: Vicky Arnett MD SUBJECTIVE This is a 63 y.o. female that presents today for a follow up of left EDL tendinitis and left DJD to foot has been nsaids with minimal improvement. Patient has old Lisfranc injury left in DJD to left foot and rates pain a for/10 Patient is currently covered by insurance for custom orthotics at this time. She presents today for casting of devices. Allergies: Allergies Allergen Reactions Sulfa [...] not crush or chew., Disp: , Rfl: metoprolol tartrate (Lopressor) 100 [...] for the devices. The patient is ambulatory may benefit functionally for this device. It may be used for the following conditions as noted per EMR. Gilmer Rivera DPM documented in this encounter [facility] 10-13-2024 History of Present illness Narrative Patient: Kathy Porter : 1960 PCP: Vicky Arnett MD SUBJECTIVE This is a 63 y.o. female that presents today for a follow up of pain to left 3rd and 4th metatarsal regions and suspected possible fractures. She also has history of left EDL tendinitis and left DJD to foot has been using a walking boot with positive improvement. Patient has old Lisfranc injury left in DJD to left foot and rates pain a /[address] scan Allergies: Allergies Allergen Reactions Sulfa Antibiotics Rash [...] not crush or chew., Disp: , Rfl: metoprolol tartrate (Lopressor) 100 [...] Types: Cigarettes Quit date: 2000 Years since quittin.5 Smokeless tobacco: Never Substance and Sexual Activity [...] Ankle ROM less than 10 degrees b/l. minimal pain on palpation to Lisfranc joint ligament and joint region of the left foot negative pain on palpation left 3rd and 4th metatarsal base regions with minimal palpation left EDL tendon complex XRAY: past CT foot left wo IV contrast Narrative: [facility] [place] [address] [place] [address] Scan Report Signed Patient: Kathy Porter MR#: [id number] : 1960 Acct:[id number] Age/Sex: 63 / F ADM Date: 09/29/24 Loc: CT Room: Type: [facility] Attending Dr: Gilmer Rivera DPM Copies [...] noncontrasted imaging. CT/CT foot LT wo con Impression: Midfoot degenerative changes. Findings of old Lisfranc injury. No acute fracture identified. Impression dictated by: Ethan Portillo M.D. 09/29/2024 10:53 PM Dictation Location: [place] [address] Transcribed By: [facility] 09/29/242252 Dictated By: Ethan Portillo DO 09/29/242247 Signed By: <Electronically signed by Ethan Portillo DO in OV> 09/29/242252 ASSESSMENT 1. DJD (degenerative joint disease), ankle and foot, left 2. Lisfranc dislocation, left, initial encounter PLAN Patient to continue with oral anti - inflammatories as needed for pain and recommended OTC medications such as tylenol or Ibuprofen Reviewed CT scan results today with patient Will pre-certify for inserts and call patient if covered or not covered and discussed possible surgical intervention including midfoot tarsometatarsal joint fusion and patient currently does not want to have surgery as she does not have that type of pain would like to continue with ambulation and discontinue boot and will discontinue boot at this time and anti-inflammatories p.r.n. Gilmer Rivera DPM documented in this encounter [facility] 09-29-2024 Radiology Diagnostic study note [facility] [place] [address] CT Scan Report Signed Patient: Kathy Porter MR#: [id number] : 1960 Acct:[id number] Age/Sex: 63 / F ADM Date: 5 Loc: CT Room: Type: [facility] CLI Attending Dr: Gilmer Rivera DPM Copies to: Gilmer Rivera DPM~ Ordering Provider: Gilmer Rivera DPM Date of Service: 09/29/24 CT/CT foot LT wo con: S93.325A,S99.192A CT left foot without contrast TECHNIQUE: The CT exam was performed using one or more the following dose reduction techniques: Automated exposure control, adjustment of the MA and/or Kvaccording to patient size, or use of the [...] Portillo M.D. 09/29/2024 10:53 PM Dictation Location: [facility] Transcribed By: [facility] 09/29/24 3609 Dictated By: BandarEthan S DO 09/29/24 2248 Signed By: 09/29/24 2253 [facility] 09-10-2024 History of Present illness Narrative Patient: Kathy Porter : 1960 PCP: Vicky Arnett MD SUBJECTIVE This is a 63 y.o. female that presents today for a chief complaint of left foot pain post falling 10 days ago and points to left midfoot left 3rd and 4th metatarsal regions. She also states she has pain with extension of the left 2 through 5 digits with EDL tendinitis. Patient has been in walking boot for suspected possible fracture to left 3rd and 4th metatarsal regions as well as for EDL tendinitis to left foot with slight improvement. Patient rates pain a 5/10. Patient had possible CT scan possible Lisfranc injury with DJD with 4-month-old injury with improvement on prior visit on 08/11/2024 Allergies: Allergies Allergen Reactions Sulfa Antibiotics Rash [...] not crush or chew., Disp: , Rfl: metoprolol tartrate (Lopressor) 100 [...] Types: Cigarettes Quit date: 2000 Years since quittin.4 Smokeless tobacco: Never Substance and Sexual Activity [...] Ankle ROM less than 10 degrees b/l. negative pain on palpation to Lisfranc joint ligament and joint region of the left foot Positive pain on palpation left 3rd and 4th metatarsal base regions with positive palpation left EDL tendon complex XRAY: past XR foot 3+ views left Imaging Result: Notable degenerative changes to left midfoot area with notable left old Lisfranc injury with slight diastasis of the Lisfranc joint and areas suspicion to left 3rd and 4th metatarsal base region with possible old fracture or new fractures with negative displacement ASSESSMENT 1. DJD (degenerative joint disease), ankle and foot, left 2. Lisfranc dislocation, left, initial encounter 3. Other physeal fracture of left metatarsal, initial encounter for closed fracture 4. Capsulitis of metatarsophalangeal (MTP) joint of left foot PLAN Patient to continue with oral anti - inflammatories as needed for pain and recommended OTC medications such as tylenol or Ibuprofen Patient is to continue with walking boot CT scan at [facility] for possible left 3 4 met base fractures Gilmer Rivera DPM documented in this encounter [facility] 09-03-2024 History of Present illness Narrative Patient: Kathy Porter : 1960 PCP: Vicky Arnett MD SUBJECTIVE This is a 63 y.o. female that presents today for a chief complaint of left foot pain post falling 3 days ago and points to left midfoot left 3rd and 4th metatarsal regions. She also states she has pain with extension of the left 2 through 5 digits. States negative improvement with anti-inflammatories and rates it up to an 8/10 and denies any popping or snapping sensations on injury Patient had possible CT scan possible Lisfranc injury with DJD with 4-month-old injury with improvement on prior visit on 08/11/2024 Allergies: Allergies Allergen Reactions Sulfa Antibiotics Rash [...] , Rfl: cholecalciferol (Vitamin D-3) 50 MCG (1999 UT) tablet, Take 2,000 Units by mouth [...] not crush or chew., Disp: , Rfl: metoprolol tartrate (Lopressor) 100 [...] Types: Cigarettes Quit date: 2000 Years since quittin.4 Smokeless tobacco: Never Substance and Sexual Activity [...] Ankle ROM less than 10 degrees b/l. negative pain on palpation to Lisfranc joint ligament and joint region of the left foot Positive palpation left 3rd and 4th metatarsal base regions with positive palpation left EDL tendon complex XRAY: XR foot 3+ views left Imaging Result: Notable degenerative changes to left midfoot area with notable left old Lisfranc injury with slight diastasis of the Lisfranc joint and areas suspicion to left 3rd and 4th metatarsal base region with possible old fracture or new fractures with negative displacement ASSESSMENT 1. DJD (degenerative joint disease), ankle and foot, left 2. Lisfranc dislocation, left, initial encounter 3. Other physeal fracture of left metatarsal, initial encounter for closed fracture 4. Capsulitis of metatarsophalangeal (MTP) joint of left foot PLAN Patient to continue with oral anti - inflammatories as needed for pain and recommended OTC medications such as tylenol or Ibuprofen Reviewed x-rays today with patient patient returned to walking boot with follow up in 1 week and may need CT scan in the near future Gilmer Rivera DPM documented in this encounter [facility] 08-11-2024 History of Present illness Narrative Patient: Kathy Porter : 1960 PCP: Vicky Arnett MD SUBJECTIVE This is a 63 y.o. female that presents today for a chief complaint of falling 2 months ago with passing out states she may have had a fracture at that time and that she still has pain to her midfoot region. She has been wearing and CAM Walker boot with positive improvement. Patient rates pain a 0-1/10. Patient has been walking without boot from time to time with negative pain Patient had possible CT scan possible Lisfranc injury with DJD Allergies: Allergies Allergen Reactions Sulfa Antibiotics Rash [...] not crush or chew., Disp: , Rfl: metoprolol tartrate (Lopressor) 100 [...] Types: Cigarettes Quit date: 2000 Years since quittin.3 Smokeless tobacco: Never Substance and Sexual Activity [...] Ankle ROM less than 10 degrees b/l. negative pain on palpation to Lisfranc joint ligament and joint region of the left foot XRAY: XR foot 3+ views left Imaging Result: Appears to be slight step-off and possible johnathan fracture to the 2nd metatarsal significant for possible Lisfranc injury with negative other fractures identified and degenerative changes noted to midfoot CT SCAN: Notable old lisfranc fracture with degenerative changes to midfoot. ASSESSMENT 1. DJD (degenerative joint disease), ankle and foot, left 2. Lisfranc dislocation, left, initial encounter PLAN Patient to continue with oral anti - inflammatories as needed for pain and recommended OTC medications such as tylenol or Ibuprofen Returned to returned to boot and contact Podiatry if possible follow up and also discussed surgical procedure if no improvement however patient appears to be healed at this time Gilmer Rivera DPM documented in this encounter [facility] 07-21-2024 History of Present illness Narrative Patient: Kathy Porter : 1960 PCP: Vicky Arnett MD SUBJECTIVE This is a 63 y.o. female that presents today for a chief complaint of falling 2 months ago with passing out states she may have had a fracture at that time and that she still has pain to her midfoot region. She has been wearing and CAM Walker boot with minimal improvement. Patient rates pain a 3/10. Patient presents today with son states that she is not wearing the boot every day Allergies: Allergies Allergen Reactions Sulfa Antibiotics Rash [...] not crush or chew., Disp: , Rfl: metoprolol tartrate (Lopressor) 100 [...] Types: Cigarettes Quit date: 2000 Years since quittin.3 Smokeless tobacco: Never Substance and Sexual Activity [...] identified and degenerative changes noted to midfoot CT SCAN: Notable old lisfranc fracture with degenerative changes to midfoot. ASSESSMENT 1. DJD (degenerative joint disease), ankle and foot, left 2. Lisfranc dislocation, left, initial encounter PLAN Patient to continue with oral anti - inflammatories as needed for pain and recommended OTC medications such as tylenol or Ibuprofen Reviewed CT results with patient. Patient instructed to wear the boot at all times when ambulatory and continue with Maryellen Rivera DPM documented in this encounter [facility] 07-08-2024 History of Present illness Narrative Patient: Kathy Porter : 1960 PCP: Vicky Arnett MD SUBJECTIVE This is a 63 [...] , Rfl: cholecalciferol (Vitamin D-3) 50 MCG (1999 UT) tablet, Take 2,000 Units by mouth [...] or Ibuprofen Will order CT scan at [facility] for left foot rule out Lisfranc injury [...] Gilmer Rivera DPM documented in this encounter [facility] 06-17-2024 Note General Surgery Offi [...] capsule, 50 mcg= (more content not included)... [facility] Comment on above: Result Comment: Elec tronically Signed By: JUAN DAVID CID, Neel Worthy\Date and Time Signed: 06/17/24 13:38 EDT [...] Type A tympanogram documented in this encounter [facility] 02-12-2024 History of Present illness [...] Date Noted Bipolar 1 disorder, depressed, mild ([facility]) 04/06/2020 VICKIE (generalized anxiety disorder) ([facility] 04/06/2020 Insomnia due to mental disorder 04/06/2020 MDD (major depressive disorder) ([facility]) 01/18/2016 Severe episode of recurrent major depressive disorder, without psychotic features ([facility]) ([facility]) 01/18/2016 Resolved Ambulatory Problems Diagnosis Date Noted [...] Recommend annual audio documented in this encounter [facility] 02-05-2024 History of Present illness [...] Date Noted Bipolar 1 disorder, depressed, mild ([facility]) 04/06/2020 VICKIE (generalized anxiety disorder) ([facility]) 04/06/2020 Insomnia due to mental disorder 04/06/2020 MDD (major depressive disorder) ([facility]) 01/18/2016 Severe episode of recurrent major depressive disorder, without psychotic features ([facility]) ([facility]) 01/18/2016 Resolved Ambulatory Problems Diagnosis Date [...] week to remove documented in this encounter [facility] 11-27-2023 Hospital Discharge instructions Patient [...] nerve stimulation). ?For women, using a medical center director to prevent urine leaks. This is a [...] right after experiencing incontinence. General instructions Take ntbg-qda-mvpklwv and prescription medicines only as told by [...] important. Where to find more information National [place] of Diabetes and Digestive and Kidney Diseases: www.niddk.nih.gov [place] [employer]: www.urologyhealth.org Contact a health care [...] provider. Document Revised: 10/22/2020 Document Reviewed: 10/22/2020 [employer] Patient Education 2022 [employer] 11/27/2023 15:20:11 Overactive Bladder, Adult Overactive Bladder, [...] your health care provider. General instructions Take fdqv-yno-ckpdllz and prescription medicines only as told by [...] provider. Document Revised: 12/06/2020 Document Reviewed: 12/06/2020 [employer] Patient Education 2022 [employer]. Follow Up Care 08/21/2023 10:37:58 With:DEVEN GUTIERREZ, PRANAV Schwartz, URL Address: [address] [place] [address] When: Unknown Comments:1 year f/up [facility] 08-21-2023 Hospital Discharge instructions Patient Education 08/21/2023 [...] nerve stimulation). ?For women, using a medical center director to prevent urine leaks. This is a [...] right after experiencing incontinence. General instructions Take biwp-uaa-jzmvsyl and prescription medicines only as told by [...] important. Where to find more information National [place] of Diabetes and Digestive and Kidney Diseases: www.niddk.nih.gov [place] [employer]: www.urologyhealth.org Contact a health care [...] provider. Document Revised: 10/22/2020 Document Reviewed: 10/22/2020 [employer] Patient Education 2022 [employer]. Follow Up Care 05/07/2023 11:41:01 With:DEVEN GUTIERREZ, PRANAV Schwartz, URL Address: [address] [address] [phone] When: Unknown Comments:3 mos (new med) [facility] History of Present illness Narrative BEHAVIORAL [...] Continue with same provider ( Rocky @ [facility] in [place]) Follow up as scheduled or return early if needed. School or community referral: None Treatment Goals and Objectives discussed. Other Referrals/Consults/Psychological Testing: None Scott Mcallister documented in this encounter [facility] 03-13-2022 History of Present illness Narrative [...] Continue with same provider ( Rcoky @ [facility] in [place]) Follow up as scheduled or return early if needed. School or community referral: None Treatment Goals and Objectives discussed. Other Referrals/Consults/Psychological Testing: None Scott Mcallister documented in this encounter [facility] 01-05-2022 Discharge summary Note Date/Time January 05, 2022 12:08pm [facility] [address] [place] [address] Discharge Summary Signed Patient: Kathy Porter MR#: [id number] : 1960 Acct:[id number] Age/Sex: 61 / F Adm Date: 2 Loc: Room: [address] [place] [address]: Henry Burnett MD Copies to: [...] % (Auto) 50.3, Lymph % (Auto) 33.1, [place] % (Auto) 12.5, Eos % (Auto) 3.5, Baso % (Auto) 0.6, Neut # (Auto) 2.6, Lymph # (Auto) 1.7, [place] # (Auto) 0.7, Eos # (Auto) 0.2, [...] <Electronically signed by Henry Burnett MD> 01/05/22 [id number] [facility] Work Phone: 1(823) 927-867810-05-2022 Progress note Author Henry Burnett [facility] January 04, 2022 4:20pm Note Date/Time January 04, 2022 4: 20pm [facility] [address] [place] [address] Hospitalist Progress Note Signed Patient: Kathy Porter MR#: [id number] : 1960 Acct:[id number] Age/Sex: 61 / F Adm Date: 2 Loc: Room: [address] [place] [address] Type: ADM INOo Attending Dr: Henry Burnett [...] Dose Route Start Last Admin Trade Name Altonq PRN Reason Stop Dose Admin Acetaminophen 650 [...] Constipation Doxazosin Mesylate 2 mg 01/03/22 21:00 10/05/22 09:41 Doxazosin 2 Mg Tablet PO 01/03/23 [...] Flu Vac Quad (36month+)Pf 0.5 Ml Syringe [id number] IM 01/04/22 18:34 .ONCE ONE Irbesartan 300 [...] 22:00 Eluxadoline [Viberzi] PO 01/03/23 21:59 HS [facility] Omeprazole 20 mg 01/04/22 09:00 01/04/22 09:41 [...] <Electronically signed by Henry Burnett MD> 01/04/22 [address] [facility] Work Phone: 1(672) 810-528910-05-2022 Consult note Author Graham Helm [facility] January 04, 2022 2:08pm Note Date/Time January 04, 2022 2: 04pm [facility] [address] [place] [address] Psychiatry Consult Note Signed Patient: Kathy Porter MR#: [id number] : 1960 Acct:[id number] Age/Sex: 61 / F Adm Date: 2 Loc: Room: 2B9566-5 Type : ADM INOo Attending Dr: Henry [...] stated that she sees a psychiatrist in [place]. She reported that he is helping her [...] Appearance Clear Urine pH 5.5 Ur Specific Orange 1.012 Urine Protein Negative Urine Glucose (UA) [...] Color Urine Appearance Urine pH Ur Specific Orange Urine Protein Urine Glucose (UA) Urine Ketones Urine Occult Blood Urine Nitrite Ur Leukocyte Esterase Urine RBC Urine WBC Valproic Acid 59.0 01/04/22 10:13 RBC Hgb Hct MCV MCH MCHC RDW Plt Count MPV Sodium Potassium Chloride Carbon Dioxide Anion Gap BUN Creatinine Calcium Total Bilirubin AST ALT Alkaline Phosphatase Total Protein Albumin Urine Color Urine Appearance Urine pH Ur Specific Orange Urine Protein Urine Glucose (UA) Urine Ketones [...] signed by Graham Helm MD> 01/04/22 [address] [facility] Work Phone: 1(705) 807-527110-04-2022 History and physical note Author Henry Burnett [facility] January 03, 2022 6:58pm Note Date/Time January 03, 2022 4: 55pm [facility] [address] [place] [address] Hospitalist H&P Signed Patient: Kathy Porter MR#: [id number] : 1960 Acct:[id number] Age/Sex: 61 / F Adm Date: 2 Loc: Room: [address] [place] [address] Type: ADM INOo Attending Dr: Henry Burnett [...] 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 Decision was to admit the patient [...] % (Auto) 22.3 % (.) 01/03/22 14:35 [place] % (Auto) 8.9 % (.) 01/03/22 14:35 Eos % (Auto) 1.4 % (.) 01/03/22 14:35 Baso % (Auto) 0.6 % (.) 01/03/22 14:35 Neut # (Auto) 4.3 x10E3/uL (1.8-7.7) 01/03/22 14:35 Lymph # (Auto) 1.4 x10E3/uL (1.00-4.8) 01/03/22 14:35 [place] # (Auto) 0.6 x10E3/uL (0.0-0.8) 01/03/22 14:35 [...] pH 5.5 (5.0-9.0) 01/03/22 14:20 Ur Specific Orange 1.012 (1.001-1.030) 01/03/22 14:20 Urine Protein Negative [...] <Electronically signed by Henry Burnett MD> 01/03/22 [id number] [facility] Work Phone: 1(656) 965-241207-15-2022 History of Present illness Narrative* Scott Mcallister [...] Continue with same provider ( Rocky @ [facility] in [place]) Follow up as scheduled or return early if needed. School or community referral: None Treatment Goals and Objectives discussed. Other Referrals/Consults/Psychological Testing: None Scott Mcallister documented in this [id number] History of Present illness Narrative* Scott Mcallister [...] Continue with same provider ( Rocky @ [facility] in [place]) Follow up as scheduled or return early if needed. School or community referral: None Treatment Goals and Objectives discussed. Other Referrals/Consults/Psychological Testing: None Scott Mcallister documented in this [id number] Miscellaneous Notes* Telephone Encounter - Sarah Leigh MA - 05/16/2021 11:04 AM EST Pt is completely out and wants a 30 day supply sent to the local pharmacy. Another refill encounterto follow with a 90 day supply to go to [facility]. documented in this [id number] History of Present illness Narrative* Scott Mcallister MD - 09/24/2020 1:16 PM EDT BEHAVIORAL HEALTH PSYCHIATRIC PROGRESS NOTE 09/24/2020 Kathy Wendi, a 59 y.o. female, for follow-up visit [...] the patient Scott Mcallister documented in this [id number] History of Present illness Narrative* Scott Mcallister MD - 07/27/2020 2:43 PM EDT Telephone Visit Via Phone Call [facility] [phone] Telephone Visit [facility] 07/27/2020 Scott Mcallister MD Provider Location: [facility] Patient Location Thread Cutter: None Patient Location: Patient's Home Patient: Kathy [...] there are inherent diagnostic limitations compared to [id number] evaluations. We elected toproceed with the telephone [...] Date:11/27/2023 03:00:00 PM Scheduled Provider:PRANAV CARVALHO PA-C Location:[facility] Appointment Type:URO Office Visit [facility] evaluation note* Diagnosis Bipolar 1 disorder, [...] Altered mental status acute Coarse tremors acute [facility] Work Phone: Evaluation note* Diagnosis Onset Date Resolution Status Acute encephalopathy acute NAEEM (acute kidney injury) ac jessica Altered mental status acute Coarse tremors acute Hypertensive urgency acute UTI (urinary tract infection) acute [facility] Work Phone: Evaluation note* Diagnosis Bipolar [...] ear, initial encounter documented in this encounter [facility]* Diagnosis Sensorineural hearing loss (SNHL) of both ears- Primary Ear pressure, right documented in this encounter [facility] note* Diagnosis Lisfranc dislocation, left, initial encounter- Primary Plantar fasciitis Plantar fascial fibromatosis Contusion of left foot, initial encounter documented in this encounter [facility]Evaluation note* Diagnosis DJD (degenerative joint disease), ankle and foot, left- Primary Lisfranc dislocation, left, initial encounter documented in this encounter [facility] note* Diagnosis DJD (degenerative joint disease), ankle and foot, left- Primary Lisfranc dislocation, left, initial encounter Other physeal fracture of left metatarsal, initial encounter for closed fracture Capsulitis of metatarsophalangeal (MTP) joint of left foot documented in this encounter [facility] note* Diagnosis Other physeal fracture of left metatarsal, initial encounter for closed fracture- Primary DJD (degenerative joint disease), ankle and foot, left Lisfranc dislocation, left, initial encounter Capsulitis of metatarsophalangeal (MTP) joint of left foot documented in this encounter [facility] HealthcareEvaluation noteNo assessment information availableBelle[facility] Work Phone: Evaluation note* Diagnosis DJD (degenerative joint disease), ankle and foot, left- Primary Contracture of right ankle [facility] N[facility] No data available for this section [facility] Hospital Discharge instructions Additional Instructions -Take Ceftin antibiotics treatment for UTI for 5 more days -Take new blood pressure medicine Hydralazine 25 mg three times a day. Hold if your BP <100/60 -Follow up with your primary doctor for blood pressure control and adjustment in medications if needed -[facility] Work [facility]: Progress note No data available for this section [facility] reason for referral (narrative)No reason for referral information availableBellevue Hospital Work Phone: History of Present Illness * Scott Mcallister MD - 04/09/2020 2:42 PM EST Telephone Visit Via Phone Call [facility] Jovana PRABHAKAR [facility] [phone] Telephone Visit [facility] 04/06/2020 Scott Mcallister MD Provider Location: [place] Patient Location Thread Cutter: None Patient Location: Patient's Home Patient: Kathy [...] there are inherent diagnostic limitations compared to [id number] evaluations. 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 [...] tremors Hypertensive urgency UTI (urinary tract infection) Chief Complaint Admit Date S93.325A S99.192A September 29, 2024 1:14 pm Summary Purpose Family History No Family History [...] Reason Comments Foot Pain Lt ft pain Reason Comments Follow-up Ct results Reason Comments Follow-up Lt lis franc Reason Comments Foot Pain Lt ft pain Reason Comments Follow-up Lt poss met fx Reason Comments Casting For Braces Or Orthotics Scan for orthotics Care Teams (unrecognized sec tion and content) Industrial Eng Relationship Specialty Start Date End Date Vicky Arnett MD [address] [place] [address] PCP - General Family Medicine 04/05/20 Industrial Eng Relationship Specialty Start Date End Date Vicky Arnett MD [address] [place] [address] PCP - General Family Medicine 04/05/20 Industrial Eng Relationship Specialty Start Date End Date Vicky Arnett MD [address] [place] [address] PCP - General Family Medicine 04/05/20 Industrial Eng Relationship Specialty Start Date End Date Vicky Arnett MD [address] [place] [address] PCP - General Family Medicine 04/05/20 Industrial Eng Relationship Specialty Start Date End Date Vicky Arnett MD [address] [place] [address] PCP - General Family Medicine 04/05/20 Team Status: Active Member Role Status Dates Justin Francisco , Emergency Provider Active Vicky Arnett MD Primary Care Provider Active Henry Burnett MD Admit Provider, Attending Provi nimisha Active Team Status: Active Member Role Status Dates Vicky Arnett MD Primary Care Provider Active Team Status: Inactive Member Role Status Justin Francisco , Emergency Provider Active Vicky Arnett MD Primary Care Provider Active Henry Burnett MD Admit Provider, Attending Provi nimisha Active Graham Helm MD Other Provider Active Industrial Eng Relationship Specialty Start Date End Date Vicky Arnett MD [address] [place] [address] PCP - General Family Medicine 04/05/20 Industrial Eng Relationship Specialty Start Date End Date Vicky Arnett MD [address] [place] [address] PCP - General Family Medicine 04/05/20 Industrial Eng Relationship Specialty Start Date End Date Vicky Arnett MD [address] [place] [address] PCP - General Family Medicine 04/05/20 Industrial Eng Relationship Specialty Start Date End Date Vicky Arnett MD [address] [place] [address] PCP - General Family Medicine 04/05/20 Industrial Eng Relationship Specialty Start Date End Date Vicky Arnett MD [address] [place] [address] PCP - General Family Medicine 04/05/20 Industrial Eng Relationship Specialty Start Date End Date Vicky Arnett MD [address] [place] [phone] PCP - General Family Medicine 02/05/24 Valerie Moss MD [address] [place] [phone] Referring Physician Family Medicine 01/29/24 Industrial Eng Relationship Specialty Start Date End Date Vicky Arnett MD [address] [place] [phone] PCP - General Family Medicine 02/05/24 Valerie Moss MD [address] [place] [phone] Referring Physician Family Medicine 01/29/24 Industrial Eng Relationship Specialty Start Date End Date Vicky Arnett MD [address] [place], [place] [phone] PCP - General Family Medicine 02/05/24 Valerie Moss MD [address] [place], [place] [phone] Referring Physician Family Medicine 01/29/24 Industrial Eng Relationship Specialty Start Date End Date Vicky Arnett MD [address] [place], [place] [phone] PCP - General Family Medicine 02/05/24 Valerie Moss MD [address] [place], [place] [phone] Referring Physician Family Medicine 01/29/24 Industrial Eng Relationship Specialty Start Date End Date Vicky Arnett MD [address] [place] [phone] PCP - General Family Medicine 09/26/23 Industrial Eng Relationship Specialty Start Date End Date Vicky Arnett MD [address] [place] [phone] PCP - General Family Medicine 02/05/24 Valerie Moss MD [address] [place] [phone] Referring Physician Family Medicine 01/29/24 Industrial Eng Relationship Specialty Start Date End Date Vicky Arnett MD [address] [place], [place] [phone] PCP - General Family Medicine 02/05/24 Valerie Moss MD [address] [place] [phone] Referring Physician Family Medicine 01/29/24 Industrial Eng Relationship Specialty Start Date End Date Vicky Arnett MD [address] [place], [place] [phone] PCP - General Family Medicine 02/05/24 Valerie Moss MD [address] [place] [phone] Referring Physician Family Medicine 01/29/24 Industrial Eng Relationship Specialty Start Date End Date Vicky Arnett MD [address] [place] [phone] PCP - General Family Medicine 02/05/24 Valerie Moss MD [address] [place] [phone] Referring Physician Family Medicine 01/29/24 Industrial Eng Relationship Specialty Start Date End Date Vicky Arnett MD [address] [place] [phone] PCP - General Family Medicine 02/05/24 Valerie Moss MD [address] [place] [phone] Referring Physician Family Medicine 01/29/24 Industrial Eng Relationship Specialty Start Date End Date Vicky Arnett MD [address] [place] [phone] PCP - General Family Medicine 02/05/24 Valerie Moss MD [address] [place] [phone] Referring Physician Family Medicine 01/29/24 Industrial Eng Relationship Specialty Start Date End Date Vicky Arnett MD [address] [place] [phone] PCP - General Family Medicine 02/05/24 Valerie Moss MD [address] [place] [phone] Referring Physician Family Medicine 01/29/24 Team Status: Inactive Member Role Status Dates Vicky Arnett MD Primary Care Provider Active Start: September 29, 2024 End: September 29, 2024 Gilmer Rivera DPM Attending Provider Active Start: September 29, 2024 End: September 29, 2024 Industrial Eng Relationship Specialty Start Date End Date Vicky Arnett MD [address] [place] [phone] PCP - General Family Medicine 02/05/24 Valerie Moss MD [address] [place] [phone] Referring Physician Family Medicine 01/29/24 Industrial Eng Relationship Specialty Start Date End Date Vicky Arnett MD [address] [place] [phone] PCP - General Family Medicine 02/05/24 Valerie Moss MD [address] [place] [address] Referring Physician Family Medicine 01/29/24 Goals (unrecognized section and content) Goals may be documented in a n alternate section No data available for this section No data available for this sectionGoals may be documented in an alternate section No data available for this section INFORMATION SOURCE (unrecogn ized section and content) DATE CREATED AUTHOR 01/23/2022 [facility] DATE CREATED AUTHOR AUTHOR'S ORGANIZ ATION [facility] DATE CREATED AUTHOR AUTHOR'S ORGANIZ ATION 11/06/2023 [facility] DATE CREATED AUTHOR AUTHOR'S ORGANIZ ATION 10/10/2024 [facility] DATE CREATED AUTHOR AUTHOR'S ORGANIZ ATION 11/12/2024 [facility] EPIC DATE CREATED AUTHOR AUTHOR'S ORGANIZ ATION 12/06/2024 [facility] DATE CREATED AUTHOR AUTHOR'S ORGANIZ ATION 12/07/2024 [facility] FOR RECORDS PERTAINING TO PATIENTS WHO ARE [...] BE BASED ON THE PRIMARY CLINICAL RECORDS. [facility]. provides no warranty or guarantee of the accuracy or completeness of information in this document.
== END 2024-12-09 07:32 | disposition home or self-care (01) ==
LOC: US 07:31
PROVIDERS: PCP Family Medicine; Visit Provider Student in an Organized Health Care Education/Training Program
DX: R10.9 Unspecified abdominal pain (principal); N20.0 Calculus of kidney; N28.1 Cyst of kidney, acquired
CPT/HCPCS: 76775

== ENCOUNTER 2024-12-25 09:48 | Outpatient (RCR) | payer OTHER, SELFPAY ==
--- OUTSIDE RECORDS SUMMARY | 2024-12-25 09:54 | XMS_ITS | CCD ---
Author Organization [facility] Care Team Providers Care Green Jobs Trainer Name Role Phone Vicky Arnett Primary Care Provider DO Justin Francisco Emergency Provider MD Vicky Arnett Primary Care Provider [phone] MD Henry Burnett Admit Provider MD Henry Burnett Attending Provider [phone] MD [facility]od[facility] Other Provider DR VICKY ARNETT Admitting Unavailable SOHAIL, DR PERRY Attending Unavailable DR VICKY ARNETT Primary Care Unavailable DR VICKY ARNETT Consulting Unavailable GEHLOT, UPENDER Admitting Unavailable GEHLOT, UPENDER Attending Unavailable DR VICKY ARNETT Primary Care Unavailable GEHLOT, UPENDER Consulting Unavailable GEHLOT, UPENDER Admitting Unavailable GEHLOT, UPENDER Attending Unavailable DR VICKY ARNETT Primary Care Unavailable GEHLOT, UPENDER Consulting Unavailable DR VICKY ARNETT Admitting Unavailable SOHAIL, DR PERRY Attending Unavailable DR VICKY ARNETT Primary Care Unavailable DR VICKY ARNETT Consulting Unavailable DR DANII CARTER V Consulting Unavailable Vicky Arnett MD Primary Care Provider [phone] GEHLOT, UPENDER Attending Unavailable HOY, VICKY Primary Care Unavailable GEHLOT, UPENDER Attending Unavailable HOY, VICKY Primary Care Unavailable GEHLOT, UPENDER Attending Unavailable HOY, VICKY Primary Care Unavailable GEHLOT, UPENDER Attending Unavailable HOY, VICKY Primary Care Unavailable HOY, VICKY Primary Care Unavailable BURAK, NELLIE Attending Unavailable GEHLOT, UPENDER Attending Unavailable SOHAIL, VICKY Primary Care Unavailable HOY, VICKY Primary Care Unavailable GEHLOT, UPENDER Attending Unavailable HoyVicky Primary Care Physician DESIRE DEGROOT Referring Unavailable VICKY ARNETT M Primary Care Unavailable DEGROOTHENNY Referring Unavailable VICKY ARNETT M Primary Care Unavailable DESIRE DEGROOT Referring Unavailable VICKY ARNETT M Primary Care Unavailable DESIRE DEGROOT Referring Unavailable VICKY ARNETT M Primary Care Unavailable Nelida CID, Valerie Unavailable Vicky Arnett MD Primary Care Provider Vicky Arnett MD Primary Care Provider Vicky Arnett MD Primary Care Provider Vicky Arnett MD Primary Care Provider [phone] Gilmer Rivera DPM Attending Provider Gilmer Rivera Attending Unavailable Gilmer Rivera Admitting Unavailable Vicky Arnett M Primary Care Unavailable Vicky Arnett MD Primary Care Provider [phone] Nicolle Beck Attending Unavailable Ebony, Nicolle Attending Unavailable EbonyNicolle boo Admitting Unavailable Vicky Arnett Referring Unavailable NILLNeel Attending Unavailable NILL, Neel Singh Attending Unavailable Ebony, Nicolle Attending Unavailable ARIANA, GILMER A Attending Unavailable ARIANA, GILMER A Referring Unavailable AIRANA, GILMER A Attending Unavailable BROWN, GILMER A Attending Unavailable ARIANA, GILMER A Attending Unavailable ARIANA, GILMER A Referring Unavailable ANGELO DE LA CRUZ Attending Unavailable VALERIE MOSS Referring Unavailable ANGELO DE LA CRUZ Attending Unavailable LILIBETH PENA Attending Unavailable ARIANA, GILMER A Attending Unavailable ARIANA, GILMER A Attending Unavailable ARIANA, GILMER A Attending Unavailable ARIANA, GILMER A Attending Unavailable Allergies Allergy Classification Reported Allergen(s) Allergy Type Date of Onset Reaction(s) Facility Sulfonamides (antibiotic) (3 sources) Sulfonamides (Antibiotic) Drug Allergy 2 Rash, Swelling [facility] (17 sources) Sulfonamides (Antibiotic); Translations: [SULFA (SULFONAMIDE ANTIBIOTICS)] Propensity to adverse reactions to drug 2 Rash, Swelling [facility] (1 source) Sulfonamides (Antibiotic) Drug allergy (disorder) 3 [facility] (6 sources) Sulfonamides (Antibiotic); Translations: [sulfa drugs] Drug allergy Cutaneous eruption (morphologic abnormality) [facility] (20 sources) Sulfonamides (Antibiotic) Drug [...] oral tablet (20 sources) beta-Adrenergic Dimple Start: 06-04-2024 metoprolol tartrate (Lopressor) 100 MG tablet 06/10/2024 [...] bedtime), # 45 tab(s), Refills(s) 1, Pharmacy: [facility], 158, cm, 12/15/19 14:46:00 EDT, [...] qAM, # 90 cap(s), Refills(s) 3, Pharmacy: [facility], 157, cm, 06/17/24 13:14:00 EDT, Height/Length Dosing, 90.6, kg, 06/17/24 13:14:00 EDT, Weight Dosing Start Date: 11/10/24 Status: Ordered Quantity: 90.0 Unit: cap(s) Repeat number: 4 Start: 05-02-2024 trospium (Sanc tura XR) 60 MG 24 hour capsule 05/02/2024 Active Start: 11-27-2023 take 1 capsule by mo ut once daily in the morning trospium 60 mg oral capsule, extended release 60 mg = 1 cap(s), Oral, qAM, # 90 cap(s), Refills(s) 3, Pharmacy: [facility], 158, cm, 11/27/23 15:03:00 EDT, Height/Length Dosing, 88, kg, 11/27/23 15:03:00 EDT, Weight Dosing Start Date: 11/27/23 Status: Ordered Start: 08-21-2023 take 1 capsule by [facility] once daily in the morning trospium 60 mg oral capsule, extended release 60 mg = 1 cap(s), Oral, qAM, # 30 cap(s), Refills(s) 11, Pharmacy: [facility]/pharmacy #[id number], 158, cm, 08/21/23 10:13:00 EDT, Height/Length [...] daily Start: 10-14-2021 take 1 tablet by [facility] once daily divalproex (DEPAKOTE ER) 500 MG [...] Abdominal pain; Translations: [Unspecified abdominal pain] Onset: Episodic Acute and unspecified renal failure (3 [...] EHR Cmte Joint disorders and dislocations; trauma-related (19 sources) Traumatic dislocation of joint of foot; [...] Onset: 6 Resolved: 9 04-06-2020 Chronic Osteoarthritis (14 sources) Degenerative joint disease of ankle AND/OR foot; Translations: [Primary osteoarthritis, left ankle and foot] 07-20-2024 Chronic Other acquired deformities (4 sources) Contracture of joint of right ankle; Translations: [Contracture, right ankle] 11-11-2024 Chronic Other connective tissue disease (2 sources) Plantar fasciitis; Translations: [Plantar fascial fibromatosis] 07-08-2024 Episodic Other connective tissue disease (6 sources) Capsulitis of metatarsophalangeal joint of left foot; Translations: [Other enthesopathy of left foot and ankle] 09-03-2024 Episodic Other diseases of kidney and ureters (3 sources) Acquired renal cyst without neoplastic change; Translations: [Cyst of kidney, acquired] Onset: Episodic Other diseases of kidney and ureters [...] DATE/TIME: 12/02/2024 17:09 EDT FREE TEXT SOURCE: Ebony GUTIERREZ, Nicolle Beck PA-C, Nicolle FINAL REPORTS Final Report [] Verified Date/Time: [...] Locations R1: This test was performed at: [facility], [address] [place] [address], [id number] [phone] , [facility] Comment on above: Performed By: #### [id number] #### [facility] [address] [place] [id number] Reminderson 12-04-2024 Reminders Reminders From: [place] To: EU - Administrative; Sent: 12/02/2024 10:44:35 EDT Show up: 12/31/2024 10:44:00 EDT Subject: 3m F/U Due Date/Time: 03/02/2025 10:44:00 EST Reminder/Recall Patient needs a 3m f/u with PVR w/ LT, Due back early March 2025 Patient is having a RAMONA done at [facility] Pt is scheduled for 03/10/[address] [facility] Urology Office/Clinic Noteon 12-02-2024 Urology Office/Clinic Note [...] discussed general stone prevention. -Obtain RAMONA at [facility], call w/ results -90oz of water daily, add lemon/[place] -Moderate animal protein, increase fruits and vegetables -KUB & RAMONA in 1 year (due October 2025) Ordered: Urnls Dip Stick Auto w/o Microscopy POC 68280 2. Mixed incontinence (N39.46: Mixed incontinence) UUI [...] of symptoms, or sooner if needed Ordered: 45760 Measure Post Void residual urine and/or bladder capacity by US- non-imaging Urnls Dip Stick Auto w/o Microscopy POC 62242 3. Left flank pain (R10.9: Unspecified abdominal pain) -See #1 4. Abnormal urinalysis (R82.90: Unspecified abnormal findings in urine) UA today w/ moderate leuks and positive nitrites -See #2 5. Renal cyst (N28.1: Cyst of kidney, acquired) RAMONA 05/04/23 TB - 1 cm benign-appearing R renal cyst and 1 cm benign-appearing L renal cyst. -Simple cysts do not require monitoring Follow-up With When Contact Information Nicolle Beck PA-C, URL In 3 months Additional Instructions: w/ PVR Patient Education Urinary Incontinence Kidney Stones, [id number]-Hsij Problem List/Past Medical History Ongoing Abnormal urinalysis [...] cap(s), Oral, (more content not included)... Normal [facility] Comment on above: Result Comment: Elec tronically Signed By: Ebony GUTIERREZ, Nicolle\.br\Date and Time Signed: 12/02/24 10:[address] foot LT wo francisco 09-30-19 CT foot LT wo con [facility] [address] [place] [id number] CT Scan Report Signed Patient: Kyleigh Adame MR#: [id number] : 1960 Acct:[id number] Age/Sex: 63 / F ADM Date: 09/29/24 Loc: CT Room: Type: [facility] Attending Dr: Gilmer Rivera DPM Copies to: [...] Portillo M.D. 09/29/2024 10:53 PM Dictation Location: [place] [address] Transcribed By: [facility] 09/29/242252 Dictated By: Ethan Portillo DO 09/29/248 Signed By: 09/29/242252 Normal [facility] XR Foot - left 3 [facility] Result: Notable degenerative changes to left midfoot area with notable left old Lisfranc injury with slight diastasis of the Lisfranc joint and areas suspicion to left 3rd and 4th metatarsal base region with possible old fracture or new fractures with negative displacement [facility] observation (narrative) [facility] XR Foot - left 3 [facility] Result: Appears to be slight step-off and possible johnathan fracture to the 2nd metatarsal significant for possible Lisfranc injury with negative other fractures identified and degenerative changes noted to midfoot [facility] Radiology Study observation (narrative) [facility] Reminderson 07-03-2024 Reminders Reminders From: Debra Hernandez LPN To: N - Clinical; Sent: 07/03/2024 13:59:47 EDT Show up: 06/01/2034 07:00:00 EST Subject: colonoscopy recall Due Date/Time: 07/02/2034 07:00:00 EDT Reminder/Recall Patient due for screening colonoscopy 07/02/2034. Normal [facility] Auditory function testson Right Ear: Mild to moderate sensorineural hearing loss above 500 Hz Left Ear: Mild sensorineural hearing loss from 1K Hz - 3K Hz rising to normal hearing at 4K Hz. Mild sensorineural hearing loss above 4K Hz [facility] XR KNEE RIGHT (1-2 VIEWS)on 11-02-2023 XR [...] MD 11/02/23 Final result Normal [facility] XR KNEE RIGHT (1-2 VIEWS)on 09-28-2023 [...] MD 09/28/23 Final result Normal [facility] XR LSPINE MIN 4 VIEWSon 01-01 [...] DANII CARTER Date: 2022-01-20 07:20 Normal [facility] DEPAKENE/VALPROICon 01-20-20 22 DEPAKENE 79.2 ug/ml Normal 50.0-100.0 [facility] Comment on above: Performed By: #### V ALP #### [facility] [address] [place] [address] Dr. Julio Goddard Albumin [Mass/volume] in Ser um or PlasmaOrdered By: Henry Burnett on 01-05-2022 Albumin [Mass/Vol] 3.0 g/dL 3.2-5.5 [facility] Basophils Auto (Bld) [#/Vol] Ordered By: Henry Burnett on 01-05-2022 Basophils (Bld) [#/Vol] 0.0 10*3/uL 0.0-0.2 [facility] Basophils/100 WBC Auto (Bld) Ordered By: Henry Burnett on 01-05-2022 Basophils/100 WBC (Bld) 0.6 % . F [facility] Blood hemoglobin measurement (mass/volume)Ordered By: Henry Burnett on 01-05-2022 Hemoglobin (Bld) [Mass/Vol] 12.8 g/dL 11.8-15.4 [facility] Blood leukocytes automated c ount (number/volume)Ordered By: Henry Lemonr on 01-05-2022 WBC (Bld) [#/Vol] 5.3 10*3/uL 4.5-11.0 [facility] Creatinine and Glomerular fi ltration rate.predicted panel (S/P/Bld)Ordered By: Henry Burnett on 01-05-2022 Creatinine [Mass/Vol] 1.14 mg/dL 0.44-1.03 [facility] Eosinophils Auto (Bld) [#/Vo l]Ordered By: Obdanny De Los Santosomar on 01-05-2022 Eosinophils (Bld) [#/Vol] 0.2 10*3/uL 0.0-0.45 [facility] Eosinophils/100 WBC Auto (Bl d)Ordered By: Henry Lemonr on 01-05-2022 Eosinophils/100 WBC (Bld) 3.5 % . [facility] Erythrocyte distribution wid th Auto (RBC) [Ratio]Ordered By: Henry Burnett on 01-05-2022 Erythrocyte distribution width (RBC) [Ratio] 16.2 % 11.9-15.3 [facility] Estimated glomerular filtrat ion rate (GFR) non- AmericanOrdered By: Henry Burnett on 01-05-2022 GFR/1.73 sq M.predicted among non-blacks MDRD (S/P/Bld) [Vol rate/Area] 49 mL/Min [facility] Globulin Calc (S) [Mass/Vol] Ordered By: Henry Burnett on 01-05-2022 Globulin (S) [Mass/Vol] 2.5 g/dL [facility] Hematocrit Auto (Bld) [Volum e fraction]Ordered By: Henry Burnett on 01-05-2022 Hematocrit (Bld) [Volume fraction] 38.6 % 34.0-46.4 [facility] - Hematology and Cell countsOrdered By: Henry Lemonr on 01-05-2022 Nucleated RBC/100 WBC (Bld) [Ratio] 0.1 % 0-0.5 [facility] Lymphocytes Auto (Bld) [#/Vo l]Ordered By: Henry De Los Santosomar on 01-05-2022 Lymphocytes (Bld) [#/Vol] 1.7 10*3/uL 1.00-4.8 [facility] Lymphocytes/100 WBC Auto (Bl d)Ordered By: Obsonjadanaga De Los Santosomar on 01-05-2022 Lymphocytes/100 WBC (Bld) 33.1 % . [facility] MCH Auto (RBC) [Entitic mass ]Ordered By: Obsonjadanaga De Los Santosomar on 01-05-2022 MCH (RBC) [Entitic mass] 30.2 pg 24.7-34.3 [facility] MCHC Auto (RBC) [Mass/Vol]Or dered By: Obsonjadah Filibertoomar on 01-05-2022 MCHC (RBC) [Mass/Vol] 33.3 g/dL 32.0-35.0 [facility] MCV Auto (RBC) [Entitic vol] Ordered By: Obsonjadanaga De Los Santosomar on 01-05-2022 MCV (RBC) [Entitic vol] 90.6 fL 80-100 [facility] Monocytes Auto (Bld) [#/Vol] Ordered By: Obsonjadanaga De Los Santosomar on 01-05-2022 Monocytes (Bld) [#/Vol] 0.7 10*3/uL 0.0-0.8 [facility] Monocytes/100 WBC Auto (Bld) Ordered By: Obsonjadanaga De Los Santosomar on 01-05-2022 Monocytes/100 WBC (Bld) 12.5 % . F [facility] Neutrophils Auto (Bld) [#/Vo l]Ordered By: Obsonjadanaga De Los Santosomar on 01-05-2022 Neutrophils (Bld) [#/Vol] 2.6 10*3/uL 1.8-7.7 [facility] Neutrophils/100 WBC Auto (Bl d)Ordered By: Obsonjadanaga De Los Santosomar on 01-05-2022 Neutrophils/100 WBC (Bld) 50.3 % . [facility] No Panel InformationOrdered By: Henry Burnett on 01-05-2022 Estimated GFR () 59 mL/Min [facility] Comment on above: GFR estimated refere nce range: According to KDOQI guidelines, <60 ml/min/1.73m2 is sufficient to diagnose a patient with chronic kidney disease. Pharmacy Creatinine Clearance (Chem 51.99 [facility] Platelet mean volume Auto (B ld) [Entitic vol]Ordered By: Henry De Los Santosomar on 01-05-2022 Platelet mean volume (Bld) [Entitic vol] 8.9 fL 6.3-10.7 [facility] Platelets Auto (Bld) [#/Vol] Ordered By: Henry De Los Santosomar on 01-05-2022 Platelets (Bld) [#/Vol] 186 10*3/uL 150-450 [facility] Protein [Mass/volume] in Ser um or PlasmaOrdered By: Henry De Los Santosomar on 01-05-2022 Protein [Mass/Vol] 5.5 g/dL 6.1-7.9 [facility] RBC Auto (Bld) [#/Vol]Ordere d By: Henry De Los Santosomar on 01-05-2022 RBC (Bld) [#/Vol] 4.25 10*6/uL 3.60-5.00 [facility] Serum or plasma alanine [place] otransferase measurement without P-5'-P (enzymatic activiOrdered By: Henry Burnett on 01-05-2022 ALT No additional P-5'-P [Catalytic activity/Vol] 11 U/L 60 [facility] Serum or plasma albumin/glob ulin mass ratioOrdered By: Henry Burnett on 01-05-2022 Albumin/Globulin [Mass ratio] 1.2 {ratio} [facility] Serum or plasma alkaline flaquita sphatase measurement (enzymatic activity/volume)Ordered By: Henry Burnett on 01-05-2022 ALP [Catalytic activity/Vol] 33 U/L 32-92 [facility] Serum or plasma anion gap de terminationOrdered By: Henry Burnett on 01-05-2022 Anion gap [Moles/Vol] 11.6 mmol/L 6.0-15.0 [facility] Serum or plasma aspartate am inotransferase measurement (enzymatic activity/volume)Ordered By: Henry Burnett on 01-05-2022 AST [Catalytic activity/Vol] 13 U/L 1042 [facility] Serum or plasma calcium sarah urement (mass/volume)Ordered By: Henry Burnett on 01-05-2022 Calcium [Mass/Vol] 9.1 mg/dL 8.2-10.2 [facility] Serum or plasma chloride deep surement (moles/volume)Ordered By: Henry Burnett on 01-05-2022 Chloride [Moles/Vol] 105 mmol/L 95-[address] [facility] Serum or plasma glucose sarah urement (mass/volume)Ordered By: Henry Burnett on 01-05-2022 Glucose [Mass/Vol] 96 mg/dL 70-100 [facility] Comment on above: ADA recommended refe rence rangeRandom Glucose Reference Range is dependent on time and content of last meal. Glucose of more than 200 mg/dL in a nonstressed, ambulatory subject supports the diagnosis of Diabetes Mellitus. Serum or plasma potassium me asurement (moles/volume)Ordered By: Henry Burnett on 01-05-2022 Potassium [Moles/Vol] 3.8 mmol/L 3.5-5.1 [facility] Serum or plasma sodium measu rement (moles/volume)Ordered By: Henry Burnett on 01-05-2022 Sodium [Moles/Vol] 138 mmol/L 136-146 [facility] Serum or plasma total biliru bin measurement (mass/volume)Ordered By: Henry Burnett on 01-05-2022 Bilirubin [Mass/Vol] 0.4 mg/dL 0.3-1.[address] [facility] Serum or plasma total carbon dioxide measurement (moles/volume)Ordered By: Henry Burnett on 01-05-2022 CO2 [Moles/Vol] 25.2 mmol/L 22.0-30.0 [facility] Serum or plasma urea nitroge n measurement (mass/volume)Ordered By: Henry Burnett on 01-05-2022 Urea nitrogen [Mass/Vol] 11 mg/dL 9-23 [facility] Urine culture routineOrdered By: Justin Francisco on 01-05-2022 Bacteria identified Cx Nom (U) Escherichia coli [facility] Cholesterol [Mass/volume] in Serum or PlasmaOrdered By: Henry Burnett on 01-04-2022 Cholesterol [Mass/Vol] 145 mg/dL 140-200 [facility] Comment on above: Chol less than 200 m g/dl low riskChol 201-239 mg/dl borderline riskChol 240 mg/dl and greater high risk Cholesterol in LDL Calc [Mas s/Vol]Ordered By: Henry Burnett on 01-04-2022 Cholesterol in LDL [Mass/Vol] 78 mg/dL 0-100 [facility] Comment on above: LDL ATP III CLASSIFI CATIONLDL less than 100 mg/dL OptimalLDL 100-129 mg/dL Near or above optimalLDL 130-159 mg/dL Borderline highLDL 160-189 mg/dL HighLDL greater than 189 mg/dL Very high Cholesterol in VLDL Calc [Ma ss/Vol]Ordered By: Henry Burnett on 01-04-2022 Cholesterol in VLDL [Mass/Vol] 12 mg/dL [facility] - Chemistry and C hemistry - challengeOrdered By: Henry Burnett on 01-04-2022 Magnesium [Mass/Vol] 1.6 mg/dL 1.6-2.[address] [facility] No Panel InformationOrdered By: Graham Helm on 01-04-2022 Valproic Acid (Depakene) Level 28.2 ug/mL 50.0-100.0 [facility] Comment on above: Last dose: - Phosphate [Mass/volume] in S yeyo or PlasmaOrdered By: Henry Burnett on 01-04-2022 Phosphate [Mass/Vol] 3.5 mg/dL 2.5-4.[address] [facility] Serum or plasma high density lipoprotein (HDL) cholesterol measurementOrdered By: Henry Burnett on 01-04-2022 Cholesterol in HDL [Mass/Vol] 55 mg/dL 35-85 [facility] Comment on above: HDL CHOL ATP-III CLA SSIFICATION Cardiovascular RiskHDL > or equal to 60 mg/dL LOWHDL < 40 mg/dL HIGH Serum or plasma total choles terol/high density lipoprotein (HDL) cholesterol mass ratOrdered By: Henry Burnett on 01-04-2022 Cholesterol.total/Tila sterol in HDL [Mass ratio] 2.6 {ratio} <5.0 [facility] Triglyceride [Mass/volume] i n Serum or PlasmaOrdered By: Henry Burnett on 01-04-2022 Triglyceride [Mass/Vol] 60 mg/dL 35-149 [facility] Comment on above: TRIG ATP III CLASSIF ICATIONTRIG less than 150 mg/dL NormalTRIG 150-199 mg/dL Borderline highTRIG 200-500 mg/dL High TRIG greater than 500 mg/dL Very highStandard traceable to the Center for Disease Conrtrol and Prevention (CDC) test method. Albumin [Mass/volume] in Ser um or PlasmaOrdered By: Justin Francisco on 01-03-2022 Albumin [Mass/Vol] 3.6 g/dL 3.2-5.5 [facility] Amphetamine Screen Ql (U)Ord ered By: Justin Francisco on 01-03-2022 Amphetamines Ql (U) Negative Negative [facility] Automated erythrocytes count in urine sediment (number/area)Ordered By: Justin Francisco on 01-03-2022 RBC Auto (Urine sed) [#/Area] None seen [HPF] 0-4 [facility] Automated leukocytes count i n urine sediment (number/area)Ordered By: Justin Francisco on 01-03-2022 WBC Auto (Urine sed) [#/Area] 5-9 [HPF] 0-4 [facility] Barbiturates [Presence] in U rineOrdered By: Justin Francisco on 01-03-2022 Barbiturates Ql (U) Negative Negative [facility] Basophils Auto (Bld) [#/Vol] Ordered By: Justin Francisco on 01-03-2022 Basophils (Bld) [#/Vol] 0.0 10*3/uL 0.0-0.2 [facility] Basophils/100 WBC Auto (Bld) Ordered By: Justin Francisco on 01-03-2022 Basophils/100 WBC (Bld) 0.6 % . [facility] Benzodiazepines [Presence] i n UrineOrdered By: Justin Francisco on 01-03-2022 Benzodiazepines Ql (U) Negative Negative [facility] Bilirubin Test strip Ql (U)O rdered By: Justin Francisco on 01-03-2022 Bilirubin Ql (U) Negative Negative [facility] Blood hemoglobin measurement (mass/volume)Ordered By: Justin Francisco on 01-03-2022 Hemoglobin (Bld) [Mass/Vol] 13.4 g/dL 11.8-15.4 [facility] Blood leukocytes automated c ount (number/volume)Ordered By: Justin Francisco on 01-03-2022 WBC (Bld) [#/Vol] 6.4 10*3/uL 4.5-11.0 [facility] COVID-19 Positive/NegativeOr dered By: Justin Francisco on 01-03-2022 SARS-CoV-2 (COVID-19) N gene ARMINDA+probe Ql (Resp) Negative Negative [facility] Comment on above: Testing for SARS-CoV -2 by RT-PCRThis test was developed and its performance characteristics determined by [employer] and validated at the [facility]. This test has not been FDA [...] (COVID-19) Ag IA.rapid Ql (Resp) Negative Negative [facility] Comment on above: This is a duplicate Delores SARS Antigen (MARLINE) result to be used for statistical tracking purpose only. Cannabinoids [Presence] in U rine by Screen methodOrdered By: Justin Francisco on 01-03-2022 Cannabinoids Screen Ql (U) Negative Negative [facility] Comment on above: These are unconfirme d results and should not be used for legal purposes. Drug Cut-Off Concentration: AMPH 1000 ng/mL TERRY 200 ng/mL HONG 200 ng/mL COCM 300 ng/mL OP 300 ng/mL PCP 25 ng/mL THC 20 ng/mL Color Auto (U)Ordered By: Aman Francisco on 01-03-2022 Color (U) Yellow Yellow [facility] Creatinine and Glomerular fi ltration rate.predicted panel (S/P/Bld)Ordered By: Justin Francisco on 01-03-2022 Creatinine [Mass/Vol] 1.38 mg/dL 0.44-1.03 [facility] Eosinophils Auto (Bld) [#/Vo l]Ordered By: Justin Francisco on 01-03-2022 Eosinophils (Bld) [#/Vol] 0.1 10*3/uL 0.0-0.45 [facility] Eosinophils/100 WBC Auto (Bl d)Ordered By: Justin Francisco on 01-03-2022 Eosinophils/100 WBC (Bld) 1.4 % . [facility] Erythrocyte distribution wid th Auto (RBC) [Ratio]Ordered By: Justin Francisco on 01-03-2022 Erythrocyte distribution width (RBC) [Ratio] 15.7 % 11.9-15.3 [facility] Estimated glomerular filtrat ion rate (GFR) non- AmericanOrdered By: Justin Francisco on 01-03-2022 GFR/1.73 sq M.predicted among non-blacks MDRD (S/P/Bld) [Vol rate/Area] 39 mL/Min [facility] Globulin Calc (S) [Mass/Vol] Ordered By: Justin Francisco on 01-03-2022 Globulin (S) [Mass/Vol] 3.1 g/dL F [facility] Hematocrit Auto (Bld) [Volum e fraction]Ordered By: Justin Francisco on 01-03-2022 Hematocrit (Bld) [Volume fraction] 41.0 % 34.0-46.4 [facility] Ketones Auto test strip (U) [Mass/Vol]Ordered By: Justin Francisco on 01-03-2022 Ketones (U) [Mass/Vol] Negative Negative Fi [facility] - Drug toxicology Ordered By: Justin Francisco on 01-03-2022 Opiates Ql (U) Negative Negative [facility] Laboratory - Hematology and Cell countsOrdered By: Justin Francisco on 01-03-2022 Nucleated RBC/100 WBC (Bld) [Ratio] 0.1 % 0-0.5 [facility] Laboratory - UrinalysisOrder ed By: Justin Francisco on 01-03-2022 Hyaline casts LM Ql (Urine sed) 0-8 [LPF] 0-8 [facility] Lymphocytes Auto (Bld) [#/Vo l]Ordered By: Justin Francisco on 01-03-2022 Lymphocytes (Bld) [#/Vol] 1.4 10*3/uL 1.00-4.8 [facility] Lymphocytes/100 WBC Auto (Bl d)Ordered By: Justin Francisco on 01-03-2022 Lymphocytes/100 WBC (Bld) 22.3 % . [facility] MCH Auto (RBC) [Entitic mass ]Ordered By: Justin Francisco on 01-03-2022 MCH (RBC) [Entitic mass] 29.7 pg 24.7-34.3 [facility] MCHC Auto (RBC) [Mass/Vol]Or dered By: Justin Francisco on 01-03-2022 MCHC (RBC) [Mass/Vol] 32.6 g/dL 32.0-35.0 [facility] MCV Auto (RBC) [Entitic vol] Ordered By: Justin Francisco on 01-03-2022 MCV (RBC) [Entitic vol] 91.0 fL 80-100 F [facility] Monocytes Auto (Bld) [#/Vol] Ordered By: Justin Francisco on 01-03-2022 Monocytes (Bld) [#/Vol] 0.6 10*3/uL 0.0-0.8 [facility] Monocytes/100 WBC Auto (Bld) Ordered By: Justin Francisco on 01-03-2022 Monocytes/100 WBC (Bld) 8.9 % . F [facility] Neutrophils Auto (Bld) [#/Vo l]Ordered By: Justin Francisco on 01-03-2022 Neutrophils (Bld) [#/Vol] 4.3 10*3/uL 1.8-7.7 [facility] Neutrophils/100 WBC Auto (Bl d)Ordered By: Justin Francisco on 01-03-2022 Neutrophils/100 WBC (Bld) 66.8 % . [facility] Nitrite Test strip Ql (U)Ord ered By: Justin Francisco on 01-03-2022 Nitrite Ql (U) Negative Negative [facility] No Panel InformationOrdered By: Justin Francisco on 01-03-2022 Estimated GFR () 47 mL/Min [facility] Comment on above: GFR estimated refere nce range: According to KDOQI guidelines, <60 ml/min/1.73m2 is sufficient to diagnose a patient with chronic kidney disease. Pharmacy Creatinine Clearance (Chem 43.00 [facility] Valproic Acid (Depakene) Level 59.0 ug/mL 50.0-100.0 [facility] Comment on above: Last dose: - SARS Antigen (LFIA) [facility] Phencyclidine Screen Ql (U)O rdered By: Justin Francisco on 01-03-2022 Phencyclidine Ql (U) Negative Negative [facility] Platelet mean volume Auto (B ld) [Entitic vol]Ordered By: Justin Francisco on 01-03-2022 Platelet mean volume (Bld) [Entitic vol] 8.8 fL 6.3-10.7 [facility] Platelets Auto (Bld) [#/Vol] Ordered By: Justin Francisco on 01-03-2022 Platelets (Bld) [#/Vol] 236 10*3/uL 150-450 [facility] Protein Auto test strip (U) [Mass/Vol]Ordered By: Justin Francisco on 01-03-2022 Protein (U) [Mass/Vol] Negative Negative [facility] Protein [Mass/volume] in Ser um or PlasmaOrdered By: Justin Francisco on 01-03-2022 Protein [Mass/Vol] 6.7 g/dL 6.1-7.9 [facility] [place] [facility] RBC Auto (Bld) [#/Vol]Ordere d By: Justin Francisco on 01-03-2022 RBC (Bld) [#/Vol] 4.50 10*6/uL 3.60-5.00 [facility] Salicylates [Mass/volume] in Serum or PlasmaOrdered By: Justin Francisco on 01-03-2022 Salicylates [Mass/Vol] mg/dL 15.0-30.0 [facility] Comment on above: Patients treated wit h Sulfasalazine may generate a false high result for Salicylate.Patients treated with Sulfapyridine may generate a false low result for Salicylate. Serum or plasma acetaminophe n measurement (mass/volume)Ordered By: Justin Francisco on 01-03-2022 Acetaminophen [Mass/Vol] 25.3 ug/mL 10.0-30.0 [facility] Serum or plasma alanine angeles otransferase measurement without P-5'-P (enzymatic activiOrdered By: Justin Francisco on 01-03-2022 ALT No additional P-5'-P [Catalytic activity/Vol] 14 U/L [facility] Serum or plasma albumin/glob ulin mass ratioOrdered By: Justin Francisco on 01-03-2022 Albumin/Globulin [Mass ratio] 1.2 {ratio} [facility] Serum or plasma alkaline flaquita sphatase measurement (enzymatic activity/volume)Ordered By: Justin Francisco on 01-03-2022 ALP [Catalytic activity/Vol] 40 U/L 32-92 [facility] Serum or plasma anion gap de terminationOrdered By: Justin Francisco on 01-03-2022 Anion gap [Moles/Vol] 16.7 mmol/L 6.0-15.0 [facility] Serum or plasma aspartate am inotransferase measurement (enzymatic activity/volume)Ordered By: Justin Francisco on 01-03-2022 AST [Catalytic activity/Vol] 18 U/L 1042 [facility] Serum or plasma calcium sarah urement (mass/volume)Ordered By: Justin Francisco on 01-03-2022 Calcium [Mass/Vol] 9.5 mg/dL 8.2-10.2 [facility] [place] [facility] Serum or plasma chloride deep surement (moles/volume)Ordered By: Justin Francisco on 01-03-2022 Chloride [Moles/Vol] 99 mmol/L 95-[address] [facility] Serum or plasma ethanol sarah urement (mass/volume)Ordered By: Justin Francisco on 01-03-2022 Ethanol [Mass/Vol] mg/dL [facility] [place] [facility] Ethanol [Mass/Vol] TNP [facility] Comment on above: Test not performed Serum or plasma glucose sarah urement (mass/volume)Ordered By: Justin Francisco on 01-03-2022 Glucose [Mass/Vol] 137 mg/dL 70-100 [facility] [place] [facility] Comment on above: ADA recommended refe rence rangeRandom Glucose Reference Range is dependent on time and content of last meal. Glucose of more than 200 mg/dL in a nonstressed, ambulatory subject supports the diagnosis of Diabetes Mellitus. Serum or plasma potassium me asurement (moles/volume)Ordered By: Justin Francisco on 01-03-2022 Potassium [Moles/Vol] 4.3 mmol/L 3.5-5.1 [facility] Serum or plasma sodium measu rement (moles/volume)Ordered By: Justin Francisco on 01-03-2022 Sodium [Moles/Vol] 135 mmol/L 136-146 [facility] [place] [facility] Serum or plasma total biliru bin measurement (mass/volume)Ordered By: Justin Francisco on 01-03-2022 Bilirubin [Mass/Vol] 0.6 mg/dL 0.3-1.[address] [facility] Serum or plasma total carbon dioxide measurement (moles/volume)Ordered By: Justin Francisco on 01-03-2022 CO2 [Moles/Vol] 23.6 mmol/L 22.0-30.0 [facility] Serum or plasma urea nitroge n measurement (mass/volume)Ordered By: Justin Francisco on 01-03-2022 Urea nitrogen [Mass/Vol] 14 mg/dL 9-23 [facility] Specific gravity Auto test s trip (U) [Rel density]Ordered By: Justin Francisco on 01-03-2022 Specific gravity (U) [Rel density] 1.012 1.001-1.030 [facility] Squamous epithelial cells de tection in urine sediment by light microscopyOrdered By: Justin Francisco on 01-03-2022 Epithelial cells.squamous LM Ql (Urine sed) 3-4 [HPF] 0-2 [facility] TSH DL <= 0.005 mIU/L QnOrde red By: Justin Francisco on 01-03-2022 TSH Qn 4.71 m[IU]/L 0.45-5.33 [facility] Thyroxine (T4) free [Mass/vo lume] in Serum or PlasmaOrdered By: Justin Francisco on 01-03-2022 Free T4 [Mass/Vol] 1.10 ng/dL 0.61-1.12 [facility] [place] [facility] Urine bacteria detection by automated methodOrdered By: Justin Francisco on 01-03-2022 Bacteria Auto Ql (U) 2+ None Seen [facility] Urine clarity by refractomet ry automatedOrdered By: Justin Francisco on 01-03-2022 Clarity Refractometry automated (U) Clear Clear [facility] Urine cocaine detectionOrder ed By: Justin Francisco on 01-03-2022 Cocaine Ql (U) Negative Negative [facility] Urine glucose measurement by automated test strip (mass/volume)Ordered By: Justin Francisco on 01-03-2022 Glucose Auto test strip (U) [Mass/Vol] Normal mg/dL Normal [facility] Urine hemoglobin detection b y automated test stripOrdered By: Justin Francisco on 01-03-2022 Hemoglobin Auto test strip Ql (U) Negative Negative [facility] Urine leukocyte esterase det ection by automated test stripOrdered By: Justin Francisco on 01-03-2022 Leukocyte esterase Auto test strip Ql (U) 2+ Negative [facility] Urobilinogen Auto test strip (U) [Mass/Vol]Ordered By: Justin Francisco on 01-03-2022 Urobilinogen (U) [Mass/Vol] Normal mg/dL Normal [facility] Yeast detection in urine sed iment by light microscopyOrdered By: Justin Francisco on 01-03-2022 Yeast LM Ql (Urine sed) None seen [HPF] None Se en [facility] pH Auto test strip (U)Ordere d By: Justin Francisco on 01-03-2022 pH (U) 5.5 [pH] 5.0-9.0 [facility] CBC AUTO DIFFon 10-27-2021 BASO # 0.1 103/ul Normal 0.0-0.1 [facility] Comment on above: Performed By: #### C BC ####[facility] [address] [place] [address]Dr. Julio Goddard Basophils/100 WBC (Bld) 0.6 % Normal 0.2-2.0 [facility] Comment on above: Performed By: #### C BC ####[facility] [address] [place], [place] [address]Dr. Julio Goddard EO # 0.2 103/ul Normal 0.0-0.7 [facility] Comment on above: Performed By: #### C BC ####[facility] [address] [place], [place] [address]Dr. Julio Goddard Eosinophils/100 WBC (Bld) 2.4 % Normal 0.9-7.0 [facility] Comment on above: Performed By: #### C BC ####[facility] [address] [place], [place] [address]Dr. Julio Goddard Erythrocyte distribution width (RBC) [Ratio] 15.0 % Normal 11.0-15.0 [facility] Comment on above: Performed By: #### C BC ####[facility] [address] [place], [place] [address]Dr. Julio Goddard Hematocrit (Bld) [Volume fraction] 37.4 % Normal 36.0-48.0 [facility] Comment on above: Performed By: #### C BC ####[facility] [address] [place], [place] [address]Dr. Julio Goddard Hemoglobin (Bld) [Mass/Vol] 12.2 g/dL Normal 12.0-16.0 [facility] Comment on above: Performed By: #### C BC ####[facility] [address] [place] [id number]. Julio Goddard IG # 0.04 10e3/ul Critically high 0.00-0.03 [facility] Comment on above: Performed By: #### C BC ####[facility] [address] [place] [id number]. Julio Rupesh IG % 0.4 % Normal 0.0-0.5 [facility] Comment on above: Performed By: #### C BC ####[facility] [address] [place] [address]Dr. Julio Rupesh LYMPH # 2.3 103/ul Normal 1.2-3.8 [facility] Comment on above: Performed By: #### C BC ####[facility] [address] [place] [address]Dr. Julio Goddard Lymphocytes/100 WBC (Bld) 23.6 % Normal 20.5-60.0 [facility] Comment on above: Performed By: #### C BC ####[facility] [address] [place] [address]Dr. Hiralharesh Goddard MANUAL DIFF REQ NO Normal [facility] Comment on above: Performed By: #### C BC ####[facility] [address] [place] [address]Dr. Julio Rupesh MCH (RBC) [Entitic mass] 29.3 pg Normal 26.7-34.0 [facility] Comment on above: Performed By: #### C BC ####[facility] [address] [place] [address]Dr. Julio Rupesh MCHC (RBC) [Mass/Vol] 32.6 g/dL Normal 29.9-35.2 [facility] Comment on above: Performed By: #### C BC ####[facility] [address] [place] [address]Dr. Julio Rupesh MCV (RBC) [Entitic vol] 89.7 fL Normal 81.0-99.0 [facility] Comment on above: Performed By: #### C BC ####[facility] [address] [place] [id number]. Julio Goddard MONO # 0.6 103/ul Normal 0.3-0.8 [facility] Comment on above: Performed By: #### C BC ####[facility] [address] [place] [id number]. Julio Goddard Monocytes/100 WBC (Bld) 5.5 % Normal 1.7-12.0 [facility] Comment on above: Performed By: #### C BC ####[facility] [address] [place] [id number]. Julio Goddard NEUT # 6.7 103/ul Critically high 1.4-6.5 [facility] Comment on above: Performed By: #### C BC ####[facility] [address] [place] [id number]. Julio Goddard Neutrophils/100 WBC (Bld) 67.5 % Normal 43.0-75.0 [facility] Comment on above: Performed By: #### C BC ####[facility] [address] [place] [id number]. Julio Goddard Platelet mean volume (Bld) [Entitic vol] 10.2 fL Normal 9.5-13.5 [facility] Comment on above: Performed By: #### C BC ####[facility] [address] [place] [id number]. Julio Goddard PLT 296 103/ul Normal 150-450 [facility] Comment on above: Performed By: #### C BC ####[facility] [address] [place] [id number]. Julio Goddard RBC 4.17 106/ul Critically low 4.20-5.40 [facility] Comment on above: Performed By: #### C BC ####[facility] [address] [place] [id number]. Julio Goddard WBC 9.9 103/ul Normal 4.0-11.0 [facility] Comment on above: Performed By: #### C BC ####[facility] [address] [place] [address]Dr. Julio Goddard LIPID PROFILEon 10-27-2021 CHOL-HDL RATIO NORM SEE BELOW Normal [facility] Comment on above: Result Comment: 3.3 - 4.4 LOW RISK 4.4 - 7.1 AVERAGE RISK 7.1 - 11.0 MODERATE RISK >11.0 HIGH RISK Performed By: #### C MP, LIPID ####[facility] [address] [place], [place] [address]Ej. Julio Goddard Cholesterol [Mass/Vol] 148 mg/dL Normal <=200 [facility] Comment on above: Performed By: #### C MP, LIPID ####[facility] [address] [place], [place] [address]Ra. Julio Goddard Cholesterol in HDL [Mass/Vol] 60 mg/dL Normal 40-60 [facility] Comment on above: Performed By: #### C MP, LIPID ####[facility] [address] [place], [place] [address]Ik. Julio Goddard Cholesterol in LDL [Mass/Vol] 72.2 mg/dL Normal [facility] Comment on above: Performed By: #### C MP, LIPID ####[facility] [address] [place], [place] [address]Ta. Julio Goddard Cholesterol.total/Tila sterol in HDL [Mass ratio] 2.5 {ratio} Normal [facility] Comment on above: Performed By: #### C MP, LIPID ####[facility] [address] [place], [place] [address]Nu. Julio Goddard HDL NORMAL > or = 60 mg/dl - LO W CARDIOVASCULAR RISK <40 mg/dl - HIGH CARDIOVASCULAR RISK Normal [facility] Comment on above: Performed By: #### C MP, LIPID ####[facility] [address] [place], [place] [address]Uq. Julio Goddard LDL CALC NORMAL SEE BELOW Normal [facility] Comment on above: Result Comment: <100 mg/dl OPTIMAL 100 - 129 mg/dl NEAR OR ABOVE OPTIMAL 130 - 159 mg/dl BORDERLINE HIGH 160 - 189 mg/dl HIGH >190 mg/dl VERY HIGH Performed By: #### C MP, LIPID ####[facility] [address] [place], [place] [address]GdDr. Julio Goddard Triglyceride [Mass/Vol] 79 mg/dL Normal <=150 T [facility] Comment on above: Performed By: #### C MP, LIPID ####[facility] [address] [place], [place] [address]AbDr. Julio Goddard VLDL CALC 15.8 mg/dL Normal [facility] Comment on above: Performed By: #### C MP, LIPID ####[facility] [address] [place], [place] [address]WmMarky Goddard PROF 14(COMP METB)on 022 Albumin [Mass/Vol] 3.7 g/dL Normal 3.4-5.0 [facility] Comment on above: Performed By: #### C MP, LIPID #### [facility] [address] [place] [address] [address] Julio Goddard Albumin/Globulin [Mass ratio] 1.0 {ratio} Normal [facility] Comment on above: Performed By: #### C MP, LIPID #### [facility] [address] [address] [address] Julio Goddard ALP [Catalytic activity/Vol] 53 U/L Normal 46-116 [facility] Comment on above: Performed By: #### C MP, LIPID #### [facility] [address] [address] [address] Julio Goddard ALT [Catalytic activity/Vol] 15 U/L Normal 14-59 [facility] Comment on above: Performed By: #### C MP, LIPID #### [facility] [address] [address] [address] Julio Goddard Anion gap [Moles/Vol] 16.1 mmol/L Normal [facility] Comment on above: Performed By: #### C MP, LIPID #### [facility] [address] [address] [address] Julio Goddard AST [Catalytic activity/Vol] 8 U/L Critically low 15-37 [facility] Comment on above: Performed By: #### C MP, LIPID #### [facility] [address] [address] [address] Julio Goddard Bilirubin [Mass/Vol] 0.5 mg/dL Normal 0.2-1.0 [facility] Comment on above: Performed By: #### C MP, LIPID #### [facility] [address] [address] [address] Julio Goddard Calcium [Mass/Vol] 9.1 mg/dL Normal 8.5-10.1 [facility] Comment on above: Performed By: #### C MP, LIPID #### [facility] [address] [address] [address] Julio Goddard Chloride [Moles/Vol] 106 mmol/L Normal 98-107 [facility] Comment on above: Performed By: #### C MP, LIPID #### [facility] [address] [place] [address] Dr. Julio Goddard CO2 [Moles/Vol] 24.1 mmol/L Normal 21.0-32.0 [facility] Comment on above: Performed By: #### C MP, LIPID #### [facility] [address] [place] [address] Dr. Julio Goddard Creatinine [Mass/Vol] 1.40 mg/dL Critically high 0.55-1.02 [facility] Comment on above: Performed By: #### C MP, LIPID #### [facility] [address] [place] [address] Dr. Julio Goddard EGFR-AF DANISH 47 mL/min/1.73m2 Critically low >=60 [facility] Comment on above: Performed By: #### C MP, LIPID #### [facility] [address] [place] [address] Dr. Julio Goddard EGFR-NON AF DANISH 39 mL/min/1.73m2 Critically low >=60 [facility] Comment on above: Performed By: #### C MP, LIPID #### [facility] [address] [place] [address] Dr. Julio Goddard Globulin (S) [Mass/Vol] 3.6 g/dL Normal [facility] Comment on above: Performed By: #### C MP, LIPID #### [facility] [address] [address] [address] Julio Goddard Glucose [Mass/Vol] 95 mg/dL Normal 74-106 [facility] Comment on above: Performed By: #### C MP, LIPID #### [facility] [address] [address] [address] Julio Goddard Potassium [Moles/Vol] 4.2 mmol/L Normal 3.5-5.1 [facility] Comment on above: Performed By: #### C MP, LIPID #### [facility] [address] [address] [address] Julio Goddard Protein [Mass/Vol] 7.3 g/dL Normal 6.4-8.2 [facility] Comment on above: Performed By: #### C MP, LIPID #### [facility] [address] [place] [address] Dr. Julio Goddard Sodium [Moles/Vol] 142 mmol/L Normal 136-145 [facility] Comment on above: Performed By: #### C MP, LIPID #### [facility] [address] [address] [address] Julio Goddard Urea nitrogen [Mass/Vol] 18.0 mg/dL Normal 7.0-18.0 [facility] Comment on above: Performed By: #### C MP, LIPID #### [facility] [address] [address] [address] Julio Goddard Urea nitrogen/Creatinine [Mass ratio] 12.9 mg/mg Normal [facility] Comment on above: Performed By: #### C MP, LIPID #### [facility] [address] [address] [address] Julio Goddard INSULINon 03-23-2021 Insulin 10.0 uIU/mL Normal 2.6-24.9 [facility] Comment on above: Performed By: #### I NSULIN #### [facility] [address] [address] [address] Julio Goddard VIT D 25-OH LABCORPon 2020 Vitamin D, 25-Hydroxy 11.8 ng/mL Critically low 30.0-100.0 [facility] Comment on above: Result Comment: Swati min D deficiency has been defined by the [place] of Medicine and an Endocrine Society practice guideline as a level of serum 25-OH vitamin D less than 20 ng/mL (1,2). The Endocrine Society went on to further define vitamin D insufficiency as a level between 21 and 29 ng/mL (2). 1. IOM ([place] of Medicine). 2010. Dietary reference intakes for calcium and D. [place]ardo [place]: The National Academies Press. 2. Matt MF, Wilma IRVIN, Shiraz ELIZONDO, et al. Evaluation, treatment, and prevention of vitamin D deficiency: an Endocrine Society clinical practice guideline. JCEM. 2010; 96(7):1911-30. Performed By: #### V ITADLC ####[facility] [address] [place], [place] [address]Dr. Julio Goddard CBC AUTO DIFFon 03-22-2021 BASO # 0.1 103/ul Normal 0.0-0.1 [facility] Comment on above: Performed By: #### C BC #### [facility] [address] [address] [address] Julio Goddard Basophils/100 WBC (Bld) 0.8 % Normal 0.2-2.0 [facility] Comment on above: Performed By: #### C BC #### [facility] [address] [address] [address] Julio Goddard EO # 0.2 103/ul Normal 0.0-0.7 [facility] Comment on above: Performed By: #### C BC #### [facility] [address] [address] [address] Julio Goddard Eosinophils/100 WBC (Bld) 2.6 % Normal 0.9-7.0 [facility] Comment on above: Performed By: #### C BC #### [facility] [address] [address] [address] Julio Goddard Erythrocyte distribution width (RBC) [Ratio] 14.2 % Normal 11.0-15.0 [facility] Comment on above: Performed By: #### C BC #### [facility] [address] [address] [address] Julio Goddard Hematocrit (Bld) [Volume fraction] 37.4 % Normal 36.0-48.0 [facility] Comment on above: Performed By: #### C BC #### [facility] [address] [place] [address] Dr. Julio Goddard Hemoglobin (Bld) [Mass/Vol] 11.9 g/dL Critically low 12.0-16.0 [facility] Comment on above: Performed By: #### C BC #### [facility] [address] [place] [address] Dr. Julio Goddard IG # 0.02 10e3/ul Normal 0.00-0.03 [facility] Comment on above: Performed By: #### C BC #### [facility] [address] [place] [address] Dr. Julio Goddard IG % 0.3 % Normal 0.0-0.5 [facility] Comment on above: Performed By: #### C BC #### [facility] [address] [place] [address] Dr. Julio Goddard LYMPH # 1.8 103/ul Normal 1.2-3.8 [facility] Comment on above: Performed By: #### C BC #### [facility] [address] [place] [address] Dr. Julio Goddard Lymphocytes/100 WBC (Bld) 27.6 % Normal 20.5-60.0 [facility] Comment on above: Performed By: #### C BC #### [facility] [address] [place] [address] Dr. Julio Goddard MANUAL DIFF REQ NO Normal [facility] Comment on above: Performed By: #### C BC #### [facility] [address] [place] [address] Dr. Julio Goddard MCH (RBC) [Entitic mass] 29.1 pg Normal 26.7-34.0 [facility] Comment on above: Performed By: #### C BC #### [facility] [address] [address] [address] Julio Goddard MCHC (RBC) [Mass/Vol] 31.8 g/dL Normal 29.9-35.2 [facility] Comment on above: Performed By: #### C BC #### [facility] [address] [address] [address] Julio Goddard MCV (RBC) [Entitic vol] 91.4 fL Normal 81.0-99.0 [facility] Comment on above: Performed By: #### C BC #### [facility] [address] [address] [address] Julio Goddard MONO # 0.6 103/ul Normal 0.3-0.8 [facility] Comment on above: Performed By: #### C BC #### [facility] [address] [place] [address] Dr. Julio Goddard Monocytes/100 WBC (Bld) 8.7 % Normal 1.7-12.0 [facility] Comment on above: Performed By: #### C BC #### [facility] [address] [place] [address] Dr. Julio Goddard NEUT # 3.9 103/ul Normal 1.4-6.5 [facility] Comment on above: Performed By: #### C BC #### [facility] [address] [place] [address] Dr. Julio Goddard Neutrophils/100 WBC (Bld) 60.0 % Normal 43.0-75.0 [facility] Comment on above: Performed By: #### C BC #### [facility] [address] [place] [address] Dr. Julio oGddard Platelet mean volume (Bld) [Entitic vol] 10.1 fL Normal 9.5-13.5 [facility] Comment on above: Performed By: #### C BC #### [facility] [address] [place] [address] Dr. Julio Goddard PLT 263 103/ul Normal 150-450 [facility] Comment on above: Performed By: #### C BC #### [facility] [address] [address] [address] Julio Goddard RBC 4.09 106/ul Critically low 4.20-5.40 [facility] Comment on above: Performed By: #### C BC #### [facility] [address] [address] [address] Julio Goddard WBC 6.5 103/ul Normal 4.0-11.0 [facility] Comment on above: Performed By: #### C BC #### [facility] [address] [address] [address] Julio Goddard FREE THYROXINE INDEX T7on FTI 3.50 Normal [facility] Comment on above: Performed By: #### C MP, T7, LIPID, TSH #### [facility] [address] [address] [address] Julio Goddard T3U 35.0 % Normal 23.5-40.5 [facility] Comment on above: Performed By: #### C MP, T7, LIPID, TSH #### [facility] [address] [address] [address] Julio Goddard T4 [Mass/Vol] 10.00 ug/dL Normal 5.53-11.00 [facility] Comment on above: Performed By: #### C MP, T7, LIPID, TSH #### [facility] [address] [address] [address] Julio Goddard GLYCOHEMOGLOBIN A1Con 2020 ADA RECOMMENDATION ADA THERAPEUTIC TARGET 6.0 - 7.0 ACTION SUGGESTED > 7.0 Normal [facility] Comment on above: Performed By: #### A 1C #### [facility] [address] [address] [address] Julio Goddard Glucose [Mass/Vol] 103 mg/dL Normal [facility] Comment on above: Performed By: #### A 1C #### [facility] [address] [place] [address] Dr. Julio Goddard HbA1c (Bld) [Mass fraction] 5.2 % Normal <=6.0 [facility] Comment on above: Performed By: #### A 1C #### [facility] [address] [address] [address] Julio Goddard IRONon 03-22-2021 Iron [Mass/Vol] 55.0 ug/dL Normal 37.0-170.0 [facility] Comment on above: Performed By: #### I MARIA E ####[facility] [address] [place], [place] [address]PlDr. Julio Goddard LIPID PROFILEon 03-22-2021 CHOL-HDL RATIO NORM SEE BELOW Normal [facility] Comment on above: Result Comment: 3.3 - 4.4 LOW RISK 4.4 - 7.1 AVERAGE RISK 7.1 - 11.0 MODERATE RISK >11.0 HIGH RISK Performed By: #### C MP, T7, LIPID, TSH #### [facility] [address] [address] [address] Julio Goddard Cholesterol [Mass/Vol] 163 mg/dL Normal <=200 Th [facility] Comment on above: Performed By: #### C MP, T7, LIPID, TSH #### [facility] [address] [address] [address] Julio Goddard Cholesterol in HDL [Mass/Vol] 65 mg/dL Normal [facility] Comment on above: Performed By: #### C MP, T7, LIPID, TSH #### [facility] [address] [address] [address] Julio Goddard Cholesterol in LDL [Mass/Vol] 80.8 mg/dL Normal [facility] Comment on above: Performed By: #### C MP, T7, LIPID, TSH #### [facility] [address] [address] [address] Julio Goddard Cholesterol.total/Tila sterol in HDL [Mass ratio] 2.5 {ratio} Normal [facility] Comment on above: Performed By: #### C MP, T7, LIPID, TSH #### [facility] [address] [address] [address] Julio Goddard HDL NORMAL > or = 60 mg/dl - LO W CARDIOVASCULAR RISK <40 mg/dl - HIGH CARDIOVASCULAR RISK Normal [facility] Comment on above: Performed By: #### C MP, T7, LIPID, TSH #### [facility] [address] [address] [address] Julio Goddard LDL CALC NORMAL SEE BELOW Normal [facility] Comment on above: Result Comment: <100 mg/dl OPTIMAL 100 - 129 mg/dl NEAR OR ABOVE OPTIMAL 130 - 159 mg/dl BORDERLINE HIGH 160 - 189 mg/dl HIGH >190 mg/dl VERY HIGH Performed By: #### C MP, T7, LIPID, TSH #### [facility] [address] [address] [address] Julio Goddard Triglyceride [Mass/Vol] 86 mg/dL Normal <=150 T [facility] Comment on above: Performed By: #### C MP, T7, LIPID, TSH #### [facility] [address] [address] [address] Julio Goddard VLDL CALC 17.2 mg/dL Normal [facility] Comment on above: Performed By: #### C MP, T7, LIPID, TSH #### [facility] [address] [address] [address] Julio Goddard PROF 14(COMP METB)on 021 Albumin [Mass/Vol] 3.5 g/dL Normal 3.5-5.0 [facility] Comment on above: Performed By: #### C MP, T7, LIPID, TSH #### [facility] [address] [place] [address] Dr. Julio Goddard Albumin/Globulin [Mass ratio] 1.0 {ratio} Normal [facility] Comment on above: Performed By: #### C MP, T7, LIPID, TSH #### [facility] [address] [address] [address] Julio Goddard ALP [Catalytic activity/Vol] 58 U/L Normal 38-126 [facility] Comment on above: Performed By: #### C MP, T7, LIPID, TSH #### [facility] [address] [address] [address] Julio Goddard ALT [Catalytic activity/Vol] 16 U/L Normal 9-52 [facility] Comment on above: Performed By: #### C MP, T7, LIPID, TSH #### [facility] [address] [address] [address] Julio Goddard Anion gap [Moles/Vol] 13.0 mmol/L Normal Th [facility] Comment on above: Performed By: #### C MP, T7, LIPID, TSH #### [facility] [address] [address] [address] Julio Goddard AST [Catalytic activity/Vol] 10 U/L Critically low 14-36 [facility] Comment on above: Performed By: #### C MP, T7, LIPID, TSH #### [facility] [address] [place] [address] Dr. Julio Goddard Bilirubin [Mass/Vol] 0.6 mg/dL Normal 0.2-1.3 [facility] Comment on above: Performed By: #### C MP, T7, LIPID, TSH #### [facility] [address] [place] [address] Dr. Julio Goddard Calcium [Mass/Vol] 9.4 mg/dL Normal 8.4-10.2 [facility] Comment on above: Performed By: #### C MP, T7, LIPID, TSH #### [facility] [address] [place] [address] Dr. Julio Goddard Chloride [Moles/Vol] 105 mmol/L Normal 98-107 [facility] Comment on above: Performed By: #### C MP, T7, LIPID, TSH #### [facility] [address] [place] [address] Dr. Julio Goddard CO2 [Moles/Vol] 28.3 mmol/L Normal 22.0-30.0 [facility] Comment on above: Performed By: #### C MP, T7, LIPID, TSH #### [facility] [address] [place] [address] Dr. Julio Goddard Creatinine [Mass/Vol] 1.37 mg/dL Critically high 0.52-1.04 [facility] Comment on above: Performed By: #### C MP, T7, LIPID, TSH #### [facility] [address] [place] [address] Dr. Julio Goddard EGFR-AF DANISH 48 mL/min/1.73m2 Critically low >=60 [facility] Comment on above: Performed By: #### C MP, T7, LIPID, TSH #### [facility] [address] [address] [address] Julio Goddard EGFR-NON AF DANISH 40 mL/min/1.73m2 Critically low >=60 [facility] Comment on above: Performed By: #### C MP, T7, LIPID, TSH #### [facility] [address] [address] [address] Julio Goddard Globulin (S) [Mass/Vol] 3.5 g/dL Normal [facility] Comment on above: Performed By: #### C MP, T7, LIPID, TSH #### [facility] [address] [place] [address] Dr. Julio Goddard Glucose [Mass/Vol] 110 mg/dL Critically high 74-106 [facility] Comment on above: Performed By: #### C MP, T7, LIPID, TSH #### [facility] [address] [place] [address] Dr. Julio Goddard Potassium [Moles/Vol] 4.3 mmol/L Normal 3.4-5.0 [facility] Comment on above: Performed By: #### C MP, T7, LIPID, TSH #### [facility] [address] [place] [address] Dr. Julio Goddard Protein [Mass/Vol] 7.0 g/dL Normal 6.1-8.2 [facility] Comment on above: Performed By: #### C MP, T7, LIPID, TSH #### [facility] [address] [place] [address] Dr. Julio Goddard Sodium [Moles/Vol] 142 mmol/L Normal 137-145 [facility] Comment on above: Performed By: #### C MP, T7, LIPID, TSH #### [facility] [address] [address] [address] Julio Goddard Urea nitrogen [Mass/Vol] 13.0 mg/dL Normal 7.0-17.0 [facility] Comment on above: Performed By: #### C MP, T7, LIPID, TSH #### [facility] [address] [place], [place] [address] Dr. Julio Goddard Urea nitrogen/Creatinine [Mass ratio] 9.5 mg/mg Normal [facility] Comment on above: Performed By: #### C MP, T7, LIPID, TSH #### [facility] [address] [place], [place] [address] Dr. uJlio Goddard TSHon 03-22-2021 TSH 2.734 uIU/mL Normal 0.470-4.680 [facility] Comment on above: Performed By: #### C MP, T7, LIPID, TSH #### [facility] [address] [address] [address] Julio Goddard TSH RANGE SEE BELOW Normal [facility] Comment on above: Result Comment: <0.3 4 UIU/ml HYPERTHYROID 0.34-5.60 UIU/ml EUTHYROID >5.60 UIU/ml HYPOTHYROID Performed By: #### C MP, T7, LIPID, TSH #### [facility] [address] [address] [address] Julio Gdodard Vital Signs Date Time Vital Sign Value Performing Clinician Facility 12-15-2024 11:46-0400 Body height 157.5 cm Gilmer Rivera DPM Work Phone: [facility] 12-15-2024 11:46-0400 Body mass index (BMI) [Ratio] 36.21 kg/m2 Gilmer Rivera DPM Work Phone: [facility] 12-15-2024 11:46-0400 Body weight 89.81 kg Gilmer Rivera DPM Work Phone: [facility] 12-15-2024 11:46-0400 Respiratory rate 18 /min Gilmer Rivera DPM Work Phone: [facility] 11-11-2024 10:35-0400 Body height 157.5 cm Gilmer Rivera DPM Work Phone: [facility] 11-11-2024 10:35-0400 Body mass index (BMI) [Ratio] 36.21 kg/m2 Gilmer Brown DPM Work Phone: [facility] 11-11-2024 10:35-0400 Body weight 89.81 kg Gilmer Brown DPM Work Phone: [facility] 11-11-2024 10:35-0400 Respiratory rate 18 /min Gilmer Brown DPM Work Phone: [facility] 10-13-2024 13:52-0400 Body height 157.5 cm Gilmer Brown DPM Work Phone: [facility] 10-13-2024 13:52-0400 Body mass index (BMI) [Ratio] 36.21 kg/m2 Gilmer Brown DPM Work Phone: [facility] 10-13-2024 13:52-0400 Body weight 89.81 kg Gilmer Brown DPM Work Phone: [facility] 10-13-2024 13:52-0400 Respiratory rate 16 /min Gilmer Brown DPM Work Phone: [facility] 09-10-2024 16:25-0400 Body height 157.5 cm Gilmer Brown DPM Work Phone: [facility] 09-10-2024 16:25-0400 Body mass index (BMI) [Ratio] 36.21 kg/m2 Gilmer Brown DPM Work Phone: [facility] 09-10-2024 16:25-0400 Body weight 89.81 kg Gilmer Brown DPM Work Phone: [facility] 09-10-2024 16:25-0400 Respiratory rate 16 /min Gilmer Brown DPM Work Phone: [facility] 09-03-2024 15:34-0400 Body height 157.5 cm Gilmer Brown DPM Work Phone: [facility] 09-03-2024 15:34-0400 Body mass index (BMI) [Ratio] 36.21 kg/m2 Gilmer Brown DPM Work Phone: [facility] 09-03-2024 15:34-0400 Body weight 89.81 kg Gilmer Brown DPM Work Phone: [facility] 09-03-2024 15:34-0400 Respiratory rate 18 /min Gilmer Brown DPM Work Phone: [facility] 08-11-2024 13:16-0400 Body height 157.5 cm Gilmer Brown DPM Work Phone: [facility] 08-11-2024 13:16-0400 Body mass index (BMI) [Ratio] 36.21 kg/m2 Gilmer Brown DPM Work Phone: [facility] 08-11-2024 13:16-0400 Body weight 89.81 kg Gilmer Brown DPM Work Phone: [facility] 08-11-2024 13:16-0400 Respiratory rate 16 /min Gilmer Brown DPM Work Phone: [facility] 07-21-2024 11:02-0400 Body height 157.5 cm Gilmer Brown DPM Work Phone: [facility] 07-21-2024 11:02-0400 Body mass index (BMI) [Ratio] 36.21 kg/m2 Gilmer Brown DPM Work Phone: [facility] 07-21-2024 11:02-0400 Body weight 89.81 kg Gilmer Brown DPM Work Phone: [facility] 07-21-2024 11:02-0400 Respiratory rate 18 /min Gilmer Brown DPM Work Phone: [facility] 07-08-2024 14:13-0400 Body height 157.5 cm Gilmer Brown DPM Work Phone: [facility] 07-08-2024 14:13-0400 Body mass index (BMI) [Ratio] 36.21 kg/m2 Gilmer Brown DPM Work Phone: [facility] 07-08-2024 14:13-0400 Body weight 89.81 kg Gilmer Ariana DPM Work Phone: [facility] 07-08-2024 14:13-0400 Respiratory rate 18 /min Gilmer Rivera DPM Work Phone: [facility] 02-12-2024 08:50-0500 Body height 157.5 cm Angelo De La Cruz MD Work Phone: [facility] 02-12-2024 08:50-0500 Body mass index (BMI) [Ratio] 34.75 kg/m2 Angelo De La Cruz MD Work Phone: [facility] 02-12-2024 08:50-0500 Body weight 86.18 kg Angelo De La Cruz MD Work Phone: [facility] 02-12-2024 08:50-0500 Diastolic blood pressure 76 mm[Hg] Angelo De La Cruz MD Work Phone: [facility] 02-12-2024 08:50-0500 Systolic blood pressure 119 mm[Hg] Angelo De La Cruz MD Work Phone: [facility] 02-05-2024 10:32-0500 Body height 157.5 cm Angelo De La Cruz MD Work Phone: [facility] 02-05-2024 10:32-0500 Body mass index (BMI) [Ratio] 34.75 kg/m2 Angelo De La Cruz MD Work Phone: [facility] 02-05-2024 10:32-0500 Body weight 86.18 kg Angelo De La Cruz MD Work Phone: [facility] 02-05-2024 10:32-0500 Diastolic blood pressure 81 mm[Hg] Angelo De La Cruz MD Work Phone: [facility] 02-05-2024 10:32-0500 Systolic blood pressure 121 mm[Hg] Angelo De La Cruz MD Work Phone: [phone] [place] [address] 11-27-2023 14:51-0400 Blood Pressure Location PRANAV DEVEN [facility] 11-27-2023 14:51-0400 Diastolic blood pressure 96 mm[Hg] PRANAV DEVEN [facility] 11-27-2023 14:51-0400 Heart rate 66 /min PRANAV DEVEN [facility] 11-27-2023 14:51-0400 Systolic blood pressure 144 mm[Hg] PRANAV DEVEN [facility] 08-21-2023 09:39-0400 Blood Pressure Location PRANAV DEVEN [facility] 08-21-2023 09:39-0400 Diastolic blood pressure 63 mm[Hg] PRANAV DEVEN [facility] 08-21-2023 09:39-0400 Heart rate 74 /min PRANAV DEVEN [facility] 08-21-2023 09:39-0400 Respiratory rate 19 /min PRANAV DEVEN [facility] 08-21-2023 09:39-0400 Systolic blood pressure 108 mm[Hg] PRANAV DEVEN [facility] 05-30-2022 13:47-0500 Body height 157.5 cm Eliana Bonds MD Work Phone: [facility] 05-30-2022 13:47-0500 Body mass index (BMI) [Ratio] 32.74 kg/m2 Eliana Bonds MD Work Phone: [facility] 05-30-2022 13:47-0500 Body weight 81.19 kg Eliana Bonds MD Work Phone: [facility] 05-30-2022 13:47-0500 Diastolic blood pressure 84 mm[Hg] Eliana Bonds MD Work Phone: [facility] 05-30-2022 13:47-0500 Heart rate 76 /min Eliana Bonds MD Work Phone: [facility] 05-30-2022 13:47-0500 Respiratory rate 16 /min Eliana Bonds MD Work Phone: [facility] 05-30-2022 13:47-0500 SaO2% (BldA) [Mass fraction] 97 % Eliana Bonds MD Work Phone: [facility] 05-30-2022 13:47-0500 Systolic blood pressure 129 mm[Hg] Eliana Bonds MD Work Phone: [facility] 02-28-2022 12:48-0500 Body height 157.5 cm Eliana Bonds MD Work Phone: [facility] 02-28-2022 12:48-0500 Body mass index (BMI) [Ratio] 32.74 kg/m2 Eliana Bonds MD Work Phone: [facility] 02-28-2022 12:48-0500 Body weight 81.19 kg Eliana Bonds MD Work Phone: [facility] 02-28-2022 12:48-0500 Diastolic blood pressure 83 mm[Hg] Eliana Bonds MD Work Phone: [facility] 02-28-2022 12:48-0500 Heart rate 78 /min Eliana Bonds MD Work Phone: [facility] 02-28-2022 12:48-0500 Respiratory rate 18 /min Eliana Bonds MD Work Phone: [facility] 02-28-2022 12:48-0500 SaO2% (BldA) [Mass fraction] 95 % Eliana Bonds MD Work Phone: [facility] 02-28-2022 12:48-0500 Systolic blood pressure 132 mm[Hg] Eliana Bonds MD Work Phone: [facility] 01-05-2022 11:19-0400 Diastolic blood pressure 79 mm[Hg] DO Justin Francisco Work Phone: [facility] 01-05-2022 11:19-0400 Heart rate 75 /min DO Justin Francisco Work Phone: [facility] 01-05-2022 11:19-0400 Respiratory rate 18 /min DO Justin Francisco Work Phone: [facility] 01-05-2022 11:19-0400 SaO2% (BldA) [Mass fraction] 97 % DO Justin Francisco Work Phone: [facility] 01-05-2022 11:19-0400 Systolic blood pressure 126 mm[Hg] DO Justin Francisco Work Phone: [facility] 01-05-2022 08:17-0400 Body temperature 97.5 [degF] DO Justin Francisco Work Phone: [facility] 01-05-2022 04:44-0400 Body weight 79.8 kg DO Justin Francisco Work Phone: [facility] 01-04-2022 11:34-0400 Body height 157.48 cm DO Justin Francisco Work Phone: [facility] 01-03-2022 17:04-0400 Diastolic blood pressure 110 mm[Hg] DO Justin Francisco Work Phone: [facility] 01-03-2022 17:04-0400 Heart rate 88 /min DO Justin Francisco Work Phone: [facility] 01-03-2022 17:04-0400 Respiratory rate 20 /min DO Justin Francisco Work Phone: [facility] 01-03-2022 17:04-0400 SaO2% (BldA) [Mass fraction] 97 % DO Justin Francisco Work Phone: [facility] 01-03-2022 17:04-0400 Systolic blood pressure 180 mm[Hg] DO Justin Francisco Work Phone: [facility] 01-03-2022 14:43-0400 Body height 157.48 cm DO Justin Francisco Work Phone: [facility] 01-03-2022 14:43-0400 Body weight 80 kg DO Justin Francisco Work Phone: [facility] 01-03-2022 13:59-0400 Body temperature 98.5 [degF] DO Justin Francisco Work Phone: [facility] 10-14-2021 13:13-0400 Body height 157.5 cm Uprani Bonds MD Work Phone: [facility] 10-14-2021 13:13-0400 Body mass index (BMI) [Ratio] 32.92 kg/m2 Uprani Bonds MD Work Phone: [facility] 10-14-2021 13:13-0400 Body weight 81.65 kg Eliana Bonds MD Work Phone: [facility] 10-14-2021 13:13-0400 Diastolic blood pressure 85 mm[Hg] Eliana Bonds MD Work Phone: [facility] 10-14-2021 13:13-0400 Heart rate 76 /min Uprani Bonds MD Work Phone: [facility] 10-14-2021 13:13-0400 Respiratory rate 16 /min Eliana Bonds MD Work Phone: [facility] 10-14-2021 13:13-0400 SaO2% (BldA) [Mass fraction] 95 % Eliana Bonds MD Work Phone: [facility] 10-14-2021 13:13-0400 Systolic blood pressure 125 mm[Hg] Eliana Bonds MD Work Phone: [facility] 07-19-2021 12:55-0400 Body height 157.5 cm Eliana Bonds MD Work Phone: [facility] 07-19-2021 12:55-0400 Body mass index (BMI) [Ratio] 32.92 kg/m2 Eliana Bonds MD Work Phone: [facility] 07-19-2021 12:55-0400 Body weight 81.65 kg Eliana Bonds MD Work Phone: [facility] 07-19-2021 12:55-0400 Diastolic blood pressure 86 mm[Hg] Eliana Bonds MD Work Phone: [facility] 07-19-2021 12:55-0400 Heart rate 67 /min Eliana Bonds MD Work Phone: [facility] 07-19-2021 12:55-0400 Respiratory rate 16 /min Eliana Bonds MD Work Phone: [facility] 07-19-2021 12:55-0400 SaO2% (BldA) [Mass fraction] 98 % Eliana Bonds MD Work Phone: [facility] 07-19-2021 12:55-0400 Systolic blood pressure 126 mm[Hg] Eliana Bonds MD Work Phone: [facility] 09-24-2020 13:12-0400 Body height 157.5 cm Eliana Bonds MD Work Phone: [facility] 09-24-2020 13:12-0400 Body mass index (BMI) [Ratio] 32.92 kg/m2 Eliana Bonds MD Work Phone: [facility] 09-24-2020 13:12-0400 Body weight 81.65 kg Eliana Bonds MD Work Phone: [facility] 09-24-2020 13:12-0400 Diastolic blood pressure 89 mm[Hg] Eliana Bonds MD Work Phone: [facility] 09-24-2020 13:12-0400 Heart rate 67 /min Eliana Bonds MD Work Phone: [facility] 09-24-2020 13:12-0400 Respiratory rate 16 /min Eliana Bonds MD Work Phone: [facility] 09-24-2020 13:12-0400 SaO2% (BldA) [Mass fraction] 95 % Eliana Bonds MD Work Phone: [facility] 09-24-2020 13:12-0400 Systolic blood pressure 146 mm[Hg] Eliana Bonds MD Work Phone: [facility] 07-27-2020 12:59-0400 Body height 165.1 cm Eliana Bonds MD Work Phone: [facility] 07-27-2020 12:59-0400 Body mass index (BMI) [Ratio] 22.63 kg/m2 Eliana Bonds MD Work Phone: [facility] 07-27-2020 12:59-0400 Body weight 61.69 kg Eliana Bonds MD Work Phone: [facility] 05-17-2020 13:11-0500 BP Diastolic 103 mm[Hg] rani cindy [facility] 05-17-2020 13:11-0500 BP Systolic 163 mm[Hg] [facility] 05-17-2020 13:11-0500 Height 157.5 cm rani cindy [facility] 05-17-2020 13:11-0500 Pulse (Heart Rate) 66 /min [facility] 05-17-2020 13:11-0500 Pulse Oximetry 96 % [facility] 05-17-2020 13:11-0500 Respiratory Rate 16 /min rani cindy [facility] Encounters Encounter Date Encounter Type Care Provider Facility Start: 03-10-2025 ambulatory Nicolle Beck Facility:[facility] Start: 12-15-2024 End: 12-15-2024 Bamboo flowsheet Gilmer Rivera DPM Work Phone: [facility] Start: 12-15-2024 End: 12-15-2024 Bamboo flowsheet Gilmer Rivera DPM Work Phone: [facility] Start: 12-15-2024 End: 12-15-2024 Office outpatient visit 15 minutes Gilmer Rivera DPM Work Phone: [facility] Comment on above: DJD (degenerative anjelica int disease), ankle and foot, left (Primary Dx); Lisfranc dislocation, left, initial encounter; Capsulitis of metatarsophalangeal (MTP) joint of left foot; Contracture of right ankle Start: 12-15-2024 End: 12-15-2024 ambulatory GILMER RIVERA Not Available Start: 12-02-2024 End: 12-02-2024 ambulatory Nicolle Beck Facility:[facility] Start: 12-02-2024 End: 12-02-2024 Patient encounter procedure Nicolle Beck [facility] Start: 11-11-2024 End: 11-11-2024 Bamboo flowsheet Gilmer Rivera DPM Work Phone: [facility] Start: 11-11-2024 End: 11-11-2024 Bamboo flowsheet Gilmer Rivera DPM Work Phone: [facility] Start: 11-11-2024 End: 11-11-2024 ambulatory [...] encounter procedure Gilmer Rivera DPM -CT Scan [facility] Work Phone: Start: 09-29-2024 End: 09-29-2024 ambulatory Vicky Arnett MD Work Phone: [facility] Work Phone: Start: 09-10-2024 End: 09-10-2024 Office [...] Not Available Start: 09-03-2024 End: 09-03-2024 Bamboo flowsheet Gilmer Rivera DPM Work Phone: [facility] Start: 09-03-2024 End: 09-03-2024 Bamboo flowsheet Gilmer Rivera DPM Work Phone: [...] Start: 07-21-2024 End: 07-21-2024 Bamboo flowsheet Gilmer Arlyn Rivera DPM Work Phone: [facility] Start: 07-21-2024 End: 07-21-2024 Bamboo flowsheet Gilmer Arlyn Brown DPM Work Phone: [facility] Start: 07-21-2024 End: 07-21-2024 Office outpatient visit 25 minutes Gilmer Rivera DPM Work Phone: [facility] Comment on above: DJD (degenerative anjelica int disease), ankle and foot, left (Primary Dx); Lisfranc dislocation, left, initial encounter Start: 07-21-2024 End: 07-21-2024 ambulatory GILMER RIVERA Not Available Start: 07-08-2024 End: 07-08-2024 ambulatory GILMER RIVERA [...] Start: 07-02-2024 End: 07-02-2024 ambulatory Neel FALL Facility:[id number] Start: 06-17-2024 End: 06-17-2024 ambulatory Vicky Arnett Facility:[facility] Start: 06-02-2024 ambulatory Nicolle Beck Facility:[facility] Start: 02-12-2024 End: 02-12-2024 Bamboo flowsheet Angelo De La Cruz MD Work Phone: [...] 02-12-2024 End: 02-12-2024 Clinical Support Lilibeth Pena [facility] Work Phone: [facility] Comment on above: Sensorineural hearin g loss (SNHL) of both ears (Primary Dx); Ear pressure, right Start: 02-05-2024 End: 02-05-2024 Bamboo flowsheet Angelo De La Cruz MD Work Phone: [facility] Start: 02-05-2024 End: 02-05-2024 Bamboo flowsheet Angelo De La Cruz MD Work Phone: [...] PRANAV CARVALHO [facility] Start: 11-27-2023 End: 11-27-2023 Jazmine Bonds MD Work Phone: [facility] Start: 11-02-2023 End: 11-04-2023 ambulatory [facility] Start: 11-02-2023 End: 11-04-2023 ambulatory [facility] Start: 09-28-2023 End: 09-30-2023 ambulatory [facility] Start: 09-28-2023 End: 09-30-2023 Subsequent hospital visit by physician Vicky Arnett MD Work Phone: [facility] Start: 08-21-2023 End: 08-21-2023 Patient encounter procedure PRANAV CARVALHO [facility] Start: 05-30-2022 End: 05-30-2022 ambulatory Bill Me Later [facility] Ambulatory Start: 05-30-2022 End: 05-30-2022 Office outpatient visit 15 minutes Eliana Bonds MD Work Phone: [facility] Comment on above: Bipolar 1 disorder, mixed, mild (HCC) (Primary Dx); Insomnia due to mental disorder; VICKIE (generalized anxiety disorder) Start: 05-10-2022 Refill Eliana Bonds MD Work Phone: [facility] Start: 03-30-2022 Refill Eliana Bonds MD Work Phone: [facility] Comment on above: 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; VICKIE (generalized anxiety disorder) Start: 02-28-2022 End: 02-28-2022 ambulatory [facility] Start: 02-28-2022 End: 02-28-2022 Office outpatient visit 25 minutes Eliana Bonds MD Work Phone: [facility] Comment on above: Bipolar 1 disorder, depressed, mild (HCC) (Primary Dx); Insomnia due to mental disorder; VICKIE (generalized anxiety disorder) Start: 01-19-2022 End: 01-20-[address] VICKY ARNETT Facility:[facility] Start: 01-09-2022 End: 01-09-[address] [facility] Ambulatory Start: 01-03-2022 End: 01-05-2022 Evaluation and management of inpatient DO Jsutin Francisco Work Phone: [facility] [place] [facility] Start: 01-03-2022 End: 01-05-2022 observation encounter DO Justin Francisco Work Phone: [facility] Work Phone: Start: 10-27-2021 End: 10-28-2021 ambulatory RANI DAUGHERTYVAL Facility:[facility] Start: 10-14-2021 End: 10-14-2021 ambulatory RANI [facility] Ambulatory Start: 10-14-2021 End: 10-14-2021 Office outpatient visit 15 minutes Eliana Bonds MD Work Phone: [facility] Comment on above: Bipolar 1 disorder, depressed, moderate (HCC) (Primary Dx); Insomnia due to mental disorder; VICKIE (generalized anxiety disorder) Start: 10-05-2021 [facility] Start: 07-22-2021 ambulatory [facility] Ambulatory Start: 07-19-2021 End: 07-19-2021 ambulatory [facility] Ambulatory Start: 07-19-2021 End: 07-19-2021 Office outpatient visit 15 minutes Eliana Bonds MD Work Phone: [facility] Comment on above: Bipolar 1 disorder, depressed, moderate (HCC) (Primary Dx); Insomnia due to mental disorder; VICKIE (generalized anxiety disorder) Start: 05-16-2021 Refill Sarah Leigh MA [facility] Comment on above: 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 (Primary Dx) 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 Start: 03-30-2021 Encounter for genera l adult medical examination without abnormal findings DR VICKY ARNETT [facility] Start: 03-29-2021 Refill Nellie Sky MA [facility] Start: 03-22-2021 End: 03-23-[address] VICKY ARNETT Facility:[facility] Start: 03-22-2021 End: 03-23-2021 Encounter for general adult medical examination without abnormal findings DR VICKY ARNETT Facility:[facility] Start: 12-07-2020 Refill Lidia Mahoney LPN [facility] Comment on above: 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; VICKIE (generalized anxiety disorder) Start: 09-24-2020 End: 09-24-2020 Office outpatient visit 25 minutes Eliana Bonds MD Work Phone: [facility] Comment on above: Bipolar 1 disorder, depressed, mild (HCC) (Primary Dx); Insomnia due to mental disorder; VICKIE (generalized anxiety disorder) Start: 08-31-2020 End: 08-31-2020 Jazmine Mahoney LPN [facility] Comment on above: 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; VICKIE (Generalized Anxiety Disorder) Start: 07-27-2020 End: 07-27-2020 Phys/qhp telephone evaluation 11-20 min lEiana Bonds MD Work Phone: [facility] Comment on above: Bipolar 1 disorder, depressed, mild (HCC) (Primary Dx); Insomnia due to mental disorder; VICKIE (Generalized Anxiety Disorder) Start: 05-17-2020 End: 05-17-2020 Office outpatient visit 15 minutes Uprani Bonds Work Phone: [facility] Comment on above: Bipolar 1 disorder, depressed, mild (HCC) (Primary Dx); VICKIE (Generalized Anxiety Disorder); Insomnia due to mental disorder Start: 04-06-2020 End: 04-06-2020 Phys/qhp telephone evaluation 11-20 min Eliana Bonds Work Phone: [facility] Comment [...] DPM Work Phone: Start: 07-02-2024 Colonoscopy Nicolle Weber na Start: 02-12-2024 AUDITORY FUNCTION TESTS Lilibeth Pena CCC-A Work Phone: Start: 01-03-2022 CT of head without contrast DO Justin Francisco Work Phone: Start: 01-01-2016 Colonoscopy Nicolle Weber na Start: 05-19-2013 Colonoscopy Angelo neil MD Work Phone: Start: 04-02-2002 Kidney Blockage Surg ical Procedure PRANAV CARVALHO Start: 04-02-1997 Cholecystectomy MATT CARVALHO Fracture of tibia (disorder) Nicolle Beck Genital [...] Treatment Date Care Activity Detail Author Start: 12-15-2024 End: 12-15-2024 Patient encounter procedure 12/15/2024 11:50 AM EDT Office Visit [facility] [address] [place] [phone] Gilmer Rivera DPM [address] [address] DJD (degenerative joint disease), ankle and foot, left (Primary Dx); Lisfranc dislocation, left, initial encounter; Capsulitis of metatarsophalangeal (MTP) joint of left foot; Contracture of right ankle [facility] Comment on above: DJD (degenerative joint disease), ankle and foot, left (Primary Dx); Lisfranc dislocation, left, initial encounter; Capsulitis of metatarsophalangeal (MTP) joint of left foot; Contracture of right ankle Start: 12-12-2024 End: 12-12-2024 Patient encounter procedure 12/12/2024 9:30 AM EDT Office Visit [facility] [address] [place] [phone] Gilmer Rivera DPM [address] [address] [facility] Start: 12-01-2024 Influenza vaccination [facility] Start: 09-10-2024 End: 09-10-2024 Patient encounter procedure 09/10/2024 4:20 PM EDT Office Visit [facility] [address] [place] [phone] Gilmer Rivera DPM [address] [address] DJD (degenerative joint disease), ankle and foot, left (Primary Dx); Lisfranc dislocation, left, initial encounter; Other physeal fracture of left metatarsal, initial encounter for closed fracture; Capsulitis of metatarsophalangeal (MTP) joint of left foot [facility] Comment on above: DJD (degenerative joint disease), ankle and foot, left (Primary Dx); Lisfranc dislocation, left, initial encounter; Other physeal fracture of left metatarsal, initial encounter for closed fracture; Capsulitis of metatarsophalangeal (MTP) joint of left foot Start: 09-03-2024 End: 09-03-2024 Patient encounter procedure 09/03/2024 3:40 PM EDT Office Visit [facility] [address] [place] [phone] Gilmer Rivera DPM [address] [address] DJD (degenerative joint disease), ankle and foot, left (Primary Dx); Lisfranc dislocation, left, initial encounter [facility] Comment on above: DJD (degenerative joint disease), ankle and foot, left (Primary Dx); Lisfranc dislocation, left, initial encounter Start: 08-11-2024 End: 08-11-2024 Patient encounter procedure 08/11/2024 1:20 PM EDT Office Visit [facility] [address] [place] [phone] Gilmer Rivera DPM [address] [address] DJD (degenerative joint disease), ankle and foot, left (Primary Dx); Lisfranc dislocation, left, initial encounter [facility] Comment on above: DJD (degenerative joint disease), ankle and foot, left (Primary Dx); Lisfranc dislocation, left, initial encounter Start: 07-21-2024 End: 07-21-2024 Patient encounter procedure 07/21/2024 11:10 AM EDT Office Visit [facility] [address] [place] [phone] Gilmer Rivera DPM [address] [address] DJD (degenerative joint disease), ankle and foot, [...] Office Visit [facility] [address] [facility] [address] [place] [address] Angelo De La Cruz MD [address] [facility] [address] [place] [address] Arrived [facility] Comment on above: Arrived Start: 12-02-2023 Influenza vaccination Influenza Vaccine (#1) [facility] Start: 11-01-2023 Influenza vaccination Flu vaccine (Season Ended) [facility] [employer] [facility] Start: 05-19-2023 Screening for malignant neoplasm of colon [facility] Start: 2022 Respiratory Syncytial Virus (RSV) or age 60 yrs+ (1 - 1-dose 60+ series) Respiratory Syncytial Virus (RSV) or age 60 yrs+ (1 - 1-dose 60+ series) [facility] [employer] [facility] Start: 12-01-2022 COVID-19 Vaccine ( season) COVID-19 Vaccine ( season) [facility] Start: 05-30-2022 End: 05-30-2022 Patient encounter procedure 05/30/2022 Office Visit Psychiatry Eliana Bonds MD [address] [place] [address] [facility] Start: 01-09-2022 End: 01-09-2022 Patient encounter procedure 01/09/2022 Office Visit Psychiatry Eliana Bonds MD [address] [address] [facility] Start: 01-05-2022 [facility] Start: 01-04-2022 Comprehensive metabolic 2000 panel - Serum or Plasma [facility] Start: 01-04-2022 Lipid panel [facility] Start: 01-04-2022 Magnesium measurement [facility] Start: 01-04-2022 Phosphate [Mass/volume] in Serum or Plasma [facility] Start: 01-04-2022 [facility] Start: 01-03-2022 Referral to psychiatrist [facility] Start: 01-03-2022 Hospital admission [facility] Start: 01-03-2022 [facility] Start: 12-01-2021 Influenza vaccination [facility] Start: 10-14-2021 End: 10-14-2021 Patient encounter procedure 10/14/2021 Office Visit Psychiatry Eliana Bonds MD [address] [facility] [address] [place] [phone] [facility] Start: 07-28-2021 COVID-19 Vaccine (4 - Booster for Pfizer series) COVID-19 Vaccine (4 - Booster for Pfizer series) [facility] Start: 07-15-2021 End: 07-15-2021 Patient encounter procedure 07/15/2021 Office Visit Psychiatry Eliana Bonds MD [address] [facility] [address] [place] [address] [facility] Start: 05-24-2021 COVID-19 Vaccine (4 - Booster for Pfizer series) COVID-19 Vaccine (4 - Booster for Pfizer series) [facility] Start: 04-18-2021 End: 04-18-2021 Patient encounter procedure 04/18/2021 Office Visit Psychiatry Eliana Bonds MD [address] [facility] [address] [place] [address] [facility] Start: 01-12-2021 COVID-19 Vaccine (3 - Booster for Pfizer series) COVID-19 Vaccine (3 - Booster for Pfizer series) [facility] Start: 01-03-2021 End: 01-03-2021 Patient encounter procedure [facility] Start: 12-01-2020 Influenza vaccination [facility] Start: 09-24-2020 End: 09-24-2020 Patient encounter procedure 09/24/2020 Office Visit Psychiatry Eliana Bonds MD [address] [facility] [address] [place] [address] [phone] [facility] Start: 09-14-2020 End: 09-14-2020 Patient encounter procedure 09/14/2020 Office Visit Psychiatry Eliana Bonds MD [address] [facility] [address] [place] [address] [phone] [facility] Start: 09-10-2020 End: 09-10-2020 Office Visit 09/10/2020 Office Visit Psychiatry Eliana Bonds MD [facility] [place] [address] [phone] [facility] Start: 12-02-2019 Influenza vaccination given Sequential Influenza Vaccine (#1) [facility] Start: 2012 Administration of herpes zoster vaccine Zoster Vaccines (1 of 2) [facility] Start: 2012 Screening for malignant neoplasm of colon [facility] Start: 2012 Shingles vaccine (1 of 2) Shingles vaccine (1 of 2) [facility] Start: 12-12-2007 Screening for malignant neoplasm of colon [facility] Start: 2002 Lipid panel Lipids [facility] Start: 2002 Screening for malignant neoplasm of breast [facility] Start: 1992 Screening for malignant neoplasm of cervix [facility] Start: 12-12-1983 Screening for malignant neoplasm of cervix Pap Smear [facility] Start: 1981 DTaP/Tdap/Td vaccine (1 - Tdap) DTaP/Tdap/Td vaccine (1 - Tdap) [facility] Start: 1980 Hepatitis C antibody, confirmatory test Hepatitis C Screening [facility] Start: 1980 Hepatitis C screening [facility] Start: 1978 COVID-19 Vaccine (1 of 2) COVID-19 Vaccine (1 of 2) [facility] Start: 1977 HIV screening [facility] Start: 1974 Depression Screen Depression Screen [facility] Start: 1965 History and physical examination, annual for health maintenance Wellness Visit [facility] Start: 1962 Screening for malignant neoplasm of cervix Pap Smear [facility] Start: 1962 Screening for malignant neoplasm of colon [facility] Start: 1962 Screening mammography Mammogram [facility] Start: 1962 Tetanus vaccination Tetanus: Every 10yrs [facility] Bacteria identified in Urine by Culture [facility] Work Phone: End: 10-14-2022 Complete blood count with white cell differential, manual CBC and Differential Lab Routine Bipolar 1 disorder, depressed, moderate (HCC) 1 Occurrences starting 10/14/2021 until 10/14/2022 [facility] Comment on above: 1 Occurrences starting [...] initial encounter for closed fracture Ordered: 09/10/2024 [facility] Work Phone: Comment on above: Ordered: 09/10/2024 End: 10-14-2022 Lipid 1996 panel - Serum or Plasma Lipid Panel Lab Routine Bipolar 1 disorder, depressed, moderate (HCC) 1 Occurrences starting 10/14/2021 until 10/14/2022 [facility] Comment on above: 1 Occurrences starting 10/14/2021 until 10/14/2022 Patient Education High Blood Pre ssure (DC) Urinary Tract Infection, Adult (DC) Acute Kidney Injury (DC) Cefuroxime Hydralazine [facility] Work Phone: Patient referral [facility] Work Phone: Immunizations Immunization Date Immunization Notes Care Provider Aly oglesby 01-05-2022 influenza, injectabl e, quadrivalent, preservative free DO [facility] Work Phone: [facility] 01-05-2022 influenza virus vaccine, unspecified formulation Eliana Bonds MD Work Phone: [facility] 03-29-2021 COVID-19 mRNA, Comirnaty (Pfizer) DO Justin Reese Work Phone: [facility] 07-13-2020 COVID-19 mRNA, Comirnaty (Pfizer) DO [facility] Work Phone: [facility] 06-21-2020 COVID-19 Ino Verduzco (Pfizer) DO Justin Francisco Work Phone: [facility] Payers Date Payer Category Payer Self-pay 2022 Private Health Insurance [id number] 2014 Unknown [id number] 2014 Unknown MMO MED [employer] S UPERMED PPO [id number] 2014-Present [phone] [address] [place] [address] [id number] 1962 Unknown [id number] 2.16.840.1.550042.3.579.2.5 1962 Unknown [id number] 2.16.840.1.560968.3.579.2.5 93 1962 Unknown [id number] 2.16.840.1.296026.3.579.2.5 1962 Unknown [id number] 2.16.840.1.562482.3.579.2.5 1962 Unknown [id number] 2.16.840.1.149643.3.579.2.9 03 1962 Unknown [id number] 2.16.840.1.848597.3.579.2.9 03 1962 Unknown [id number] 2.16.840.1.612950.3.579.2.9 1962 Unknown [id number] 2.16.840.1.363168.3.579.2.9 1962 Unknown [id number] 2.16.840.1.578763.3.579.2.9 1962 Unknown [id number] 2.16.840.1.110236.3.579.2.9 03 1962 Unknown [id number] 2.16.840.1.219740.3.579.2.9 03 1962 Unknown [id number] 2.16.840.1.024485.3.579.2.1 74 1962 Unknown [id number] 2.16.840.1.924140.3.579.2.1 74 1962 Unknown [id number] 2.16.840.1.646136.3.579.2.1 74 1962 Unknown [id number] 2.16.840.1.208079.3.579.2.1 74 1962 Unknown [id number] 2.16.840.1.517811.3.579.2.7 27 1962 Unknown [id number] 2.16.840.1.677699.3.579.2.7 27 1962 Unknown [id number] 2.16.840.1.540153.3.579.2.7 27 1962 Unknown [id number] 2.16.840.1.622416.3.579.2.7 27 1962 Unknown [id number] 2.16.840.1.384032.3.579.2.7 27 1962 Unknown [id number] 2.16.840.1.906786.3.579.2.7 27 1962 Unknown [id number] 2.16.840.1.406082.3.579.2.1 259 1962 Unknown [id number] 2.16.840.1.658906.3.579.2.1 259 1962 Unknown [id number] 2.16.840.1.054365.3.579.2.1 259 1962 Unknown [id number] 2.16.840.1.667736.3.579.2.1 259 1962 Unknown [id number] 2.16.840.1.635178.3.579.2.1 259 1962 Unknown [id number] 2.16.840.1.991453.3.579.2.1 259 1962 Unknown [id number] 2.16.840.1.023146.3.579.2.1 259 1962 Unknown [id number] 2.16.840.1.414096.3.579.2.1 259 1962 Unknown [id number] 2.16.840.1.052467.3.579.2.1 259 1962 Unknown [id number] 2.16.840.1.630991.3.579.2.1 259 1962 Unknown [id number] 2.16.840.1.093284.3.579.2.1 259 1962 Unknown [id number] 2.16.840.1.744147.3.579.2.1 259 1962 Unknown [id number] 2.16.840.1.692365.3.579.2.1 259 1959 Unknown [id number] Unknown [id number] 2.16.840.1.600648.3.579.2.5 31 Social History Date Type Detail Facility Start: 04-06-2020 End: 01-30-2024 Tobacco smoking status NHIS Former smoker [facility] Start: 04-06-2020 End: 01-30-2024 Tobacco use and exposure Never used [facility] Start: 04-06-2020 End: 12-15-2024 Alcohol intake Ex-drinker (finding) [facility] Start: 1960 Sex Assigned At Not on file [facility] Exposure to SARS-CoV -2 (event) Unable to assess [facility] Start: 07-09-2021 End: 05-24-2022 Exposure to SARS-CoV-2 (event) Not sure [facility] Start: 01-03-2022 Tobacco smoking stat us NHIS Never smoked tobacco (finding) [facility] Start: 1960 Sex Assigned At Female F [facility] End: 04-02-2000 History of tobacco use Current smoker [facility] Start: 05-30-2022 End: 11-11-2024 History of Social function [facility] Start: 05-30-2022 End: 11-11-[address] [facility] Tobacco smoking status Never [facility] End: 04-02-2000 History of tobacco use Cigarette Smoker [facility] Tobacco smoking stat [facility] Tobacco smoking consumption unknown [facility] Start: 06-20-2018 Sex Female (finding) [facility] Sexual Orientation [facility] Goals Date Patient Goal Desired Activity /State Functional Status Date Assessment Result Facility 11-27-2023 Functional Status N/A [facility] 08-21-2023 Functional Status N/A [facility] 01-05-2022 Functional status Patient at Baseline [facility] Work Phone: Mental Status Date Assessment Result Facility 01-05-2022 Cognitive function Cognitive Sta tus Patient at Baseline [facility] Work Phone: Clinical Notes 07-27-2020 to 12-15-2024 Gilmer Rivera DPM - 12/15/2024 11:50 AM EDKat Rivera DPM - 11/11/2024 10:20 AM Coco Rivera DPM - 10/13/2024 1:50 PM EDKat Rivera DPM - 09/10/2024 4:20 PM EDT Note Date & Type Note Facility 12-15-2024 History of Present illness Narrative Patient: Kyleigh Adame : 1960 PCP: Vicky Arnett MD SUBJECTIVE This is a 64 y.o. female that presents today for a follow up of left EDL tendinitis and left DJD to foot has been nsaids with minimal improvement. Patient has old Lisfranc injury left in DJD to left foot and rates pain a 5/10 Patient is currently covered by insurance for custom orthotics at this time. She presents today for fitting of devices. Allergies: Allergies Allergen Reactions Sulfa [...] Types: Cigarettes Quit date: 2000 Years since quittin.7 Smokeless tobacco: Never Substance and Sexual Activity [...] Ankle ROM less than 10 degrees b/l. diminishedpain on palpation to Lisfranc joint ligament and joint region of the left foot diminished pain on palpation left 3rd and 4th metatarsal base regions with diminished POP to the left EDL tendon complex ASSESSMENT 1. DJD (degenerative joint disease), ankle and foot, left 2. Lisfranc dislocation, left, initial encounter 3. Capsulitis of metatarsophalangeal (MTP) joint of left foot 4. Contracture of right ankle PLAN Patient to continue with oral anti - inflammatories as needed for pain and recommended OTC medications such as tylenol or Ibuprofen Pt was fitted for custom made orthotics today. Orthotics were deemed to fit appropriately and patient was informed of proper break in of devices. Patient education on break in of device. ABN signed and in chart if warranted. Gilmer Rivera DPM documented in this encounter [facility] 12-02-2024 Hospital Discharge instructions Patient Education 12/02/2024 [...] stimulation). ?For women, using a certified medical assistant to prevent urine leaks. This [...] right after experiencing incontinence. General instructions Take djlr-ahp-mgwvkuz and prescription medicines only as told by [...] important. Where to find more information [employer] [place] of Diabetes and Digestive and Kidney Diseases: www.niddk.nih.gov [employer]: www.urologyhealth.org Contact a health care [...] provider. Document Revised: 10/22/2020 Document Reviewed: 10/22/2020 iCharts Patient Education 2023 [employer]. 12/02/2024 10:54:09 Kidney Stones, Nusv-xo-Jfoh Kidney Stones Kidney stones are rock-like masses [...] Follow these instructions at home: Medicines Take qwcw-lap-jlmqiql and prescription medicines only as told by [...] provider. Document Revised: 11/10/2022 Document Reviewed: 11/10/2022 iCharts Patient Education 2023 [employer]. Follow Up Care 06/18/2024 11:29:17 With:Nicolle Beck PA-C, [place] Address: When:Within 3 Month(s) Comments:w/ [facility] 12-02-2024 Note Patient Education Urology Urinary [...] ? For women, using a certified medical assistant to prevent urine leaks. This [...] health care provider (more content not included)... [facility] 11-11-2024 History of Present illness Narrative Patient: Kyleigh Adame : 1960 PCP: Vicky Arnett MD SUBJECTIVE [...] Gilmer Rivera DPM documented in this encounter [facility] 10-13-2024 History of Present illness Narrative Patient: Kyleigh Adame : 1960 PCP: Vicky Arnett MD SUBJECTIVE [...] to left foot and rates pain a 1/[address] scan Allergies: Allergies [...] left wo IV contrast Narrative: [facility] [place] [address] [place] [address] CT Scan Report Signed Patient: Kyleigh Adame MR#: [id number] : 1960 Acct:[id number] Age/Sex: 63 / F ADM Date: 09/29/24 Loc: CT Room: Type: [facility] Attending Dr: Gilmer Rivera DPM Copies [...] Portillo M.D. 09/29/2024 10:53 PM Dictation Location: [facility] Transcribed By: [facility] 09/29/242252 Dictated By: Ethan Portillo DO 09/29/242247 [...] Gilmer Rivera DPM documented in this encounter [facility] 09-29-2024 Radiology Diagnostic study note [facility] [place] [address] [place] [address] CT Scan Report Signed Patient: Kyleigh Adame MR#: [id number] : 1960 Acct:[id number] Age/Sex: 63 / F ADM Date: 5 Loc: CT Room: Type: [facility] Attending Dr: Gilmer Rivera DPM Copies [...] Portillo M.D. 09/29/2024 10:53 PM Dictation [facility] Transcribed By: [facility] 09/29/242252 Dictated By: Ethan Portillo DO 09/29/242247 Signed By: 09/29/242252 [facility] 09-10-2024 History of Present illness Narrative Patient: Kyleigh Brodyyer : 1960 PCP: Vicky Arnett MD SUBJECTIVE [...] continue with walking boot CT scan at [facility] for possible left 3 4 met base fractures Gilmer Rivera DPM documented in this encounter [facility] 09-03-2024 History of Present illness Narrative Patient: Kyleigh Otto Wendi : 1960 PCP: Vicky Arnett MD SUBJECTIVE [...] Gilmer Rivera DPM documented in this encounter [facility] 08-11-2024 History of Present illness Narrative Patient: Kyleigh Adame : 1960 PCP: Vicky Arnett MD SUBJECTIVE [...] Gilmer Rivera DPM documented in this encounter [facility] 07-21-2024 History of Present illness Narrative Patient: Kyleigh Adame : 1960 PCP: Vicky Arnett MD SUBJECTIVE [...] , Rfl: cholecalciferol (Vitamin D-3) 50 MCG (1999) tablet, Take 2,000 Units by mouth Daily, [...] Maryellen Rivera DPM documented in this encounter [facility] 07-08-2024 History of Present illness Narrative Patient: Kyleigh Adame : 1960 PCP: Vicky Arnett MD SUBJECTIVE [...] or Ibuprofen Will order CT scan at [facility] for left foot rule out Lisfranc injury [...] Gilmer Rivera DPM documented in this encounter [facility] 06-17-2024 Note General Surgery Offi ce/Clinic Note [...] capsule, 50 mcg= (more content not included)... [facility] Comment on above: Result Comment: Elec [...] Type A tympanogram documented in this encounter [facility] 02-12-2024 History of Present illness Narrative Images from the original note were not included. Subjective Patient ID: Kyleigh Adame is a 63 y.o. female who presents for Ear Problem (1 week check ears) Pt presents after using vinegar to soften dried blood in EAC. Reports she has had RT ear fullness and HL since Sunday Family History Problem Relation Name Age of Onset Diabetes Mother Diabetes Father Active Ambulatory Problems Diagnosis Date Noted Bipolar 1 disorder, depressed, mild ([facility]) 04/06/2020 VICKIE (generalized anxiety disorder) ([facility]) 04/06/2020 Insomnia due to mental disorder 04/06/2020 MDD (major depressive disorder) ([facility]) 01/18/2016 Severe episode of recurrent major depressive disorder, without psychotic features ([facility]) ([facility]) 01/18/2016 Resolved Ambulatory Problems Diagnosis Date Noted [...] Rinne A>B. Dony tymps normal Patient ID: Kyleigh Adame is a 63 y.o. female. Procedures Foreign [...] Recommend annual audio documented in this encounter [facility] 02-05-2024 History of Present illness Narrative Subjective Patient ID: Kyleigh Adame is a 63 y.o. female who presents [...] Date Noted Bipolar 1 disorder, depressed, mild (CMS/HCC) 04/06/2020 VICKIE (generalized anxiety disorder) ([facility]) 04/06/2020 Insomnia due to mental disorder 04/06/2020 MDD (major depressive disorder) ([facility]) 01/18/2016 Severe episode of recurrent major depressive disorder, without psychotic features ([facility]) ([facility]) 01/18/2016 Resolved Ambulatory Problems Diagnosis [...] week to remove documented in this encounter [facility] 11-27-2023 Hospital Discharge instructions Patient Education [...] stimulation). ?For women, using a certified medical assistant to prevent urine leaks. This [...] right after experiencing incontinence. General instructions Take dbmg-zmx-sqzgfau and prescription medicines only as told by [...] important. Where to find more information [place] of Diabetes and Digestive and Kidney Diseases: www.niddk.nih.gov [employer]: www.urologyhealth.org Contact a health care [...] provider. Document Revised: 10/22/2020 Document Reviewed: 10/22/2020 iCharts Patient Education 2022 [employer]. 11/27/2023 15:20:11 Overactive Bladder, Adult Overactive Bladder, [...] your health care provider. General instructions Take xyet-ewf-cdhxwsb and prescription medicines only as told by [...] provider. Document Revised: 12/06/2020 Document Reviewed: 12/06/2020 iCharts Patient Education 2022 [employer]. Follow Up Care 08/21/2023 10:37:58 With:PRANAV CARVALHO PA-C, URL Address: [address] [place] [address] [place] [address] When: Unknown Comments:1 year f/up [facility] 08-21-2023 Hospital Discharge instructions Patient Education [...] stimulation). ?For women, using a certified medical assistant to prevent urine leaks. This [...] right after experiencing incontinence. General instructions Take ucas-ncr-azjhqus and prescription medicines only as told by [...] important. Where to find more information [place] of Diabetes and Digestive and Kidney Diseases: www.niddk.nih.gov [employer]: www.urologyhealth.org Contact a health care [...] provider. Document Revised: 10/22/2020 Document Reviewed: 10/22/2020 iCharts Patient Education 2022 [employer]. Follow Up Care 05/07/2023 11:41:01 With:DEVEN GUTIERREZ, PRANAV Schwartz, URL Address: [address] [place] [address] [phone] When: Unknown Comments:3 mos (new med) [facility] 05-30-2022 History of Present illness Narrative [facility]YCHI[facility] PROGRESS NOTE 05/30/2022: Kyleigh Adame, a 61 y.o. female, for psychotropic medication [...] Continue with same provider ( Rocky @ [facility] in [place]) Follow up as scheduled or return early if needed. School or community referral: None Treatment Goals and Objectives discussed. Other Referrals/Consults/Psychological Testing: None Eliana Bonds documented in this encounter [facility] 03-13-2022 History of Present illness Narrative BEHAVIORAL HEALTH PSYCHIATRIC PROGRESS NOTE 02/28/2022 Kyleigh Adame, a 61 y.o. female, for psychotropic medication [...] Continue with same provider ( Rocky @ [facility] in [place]) Follow up as scheduled or return early if needed. School or community referral: None Treatment Goals and Objectives discussed. Other Referrals/Consults/Psychological Testing: None Eliana Bonds documented in this encounter [facility] 01-05-2022 Discharge summary Note Date/Time January 05, 2022 12:08pm [facility] [address] [place] [address] Discharge Summary Signed Patient: Kyleigh Adame MR#: [id number] : 1960 Acct:[id number] Age/Sex: 61 / F Adm Date: 2 Loc: Room: [address] [place] [address]: Henry Burnett MD Copies to: [...] % (Auto) 50.3, Lymph % (Auto) 33.1, [place] % (Auto) 12.5, Eos % (Auto) 3.5, Baso % (Auto) 0.6, Neut # (Auto) 2.6, Lymph # (Auto) 1.7, [place] # (Auto) 0.7, Eos # (Auto) 0.2, [...] 5 mg PO TID Follow Up: Dr. Eliana Bonds [Other] Vicky Arnett MD [Primary Care Provider] - 01/09/22 3:30 pm (You have been scheduled for a follow up appointment for the following date and time, please call to reschedule if needed.) Documented By: Henry Burnett MD 01/05/22 12 02 Signed By: <Electronically signed by Henry Burntet MD> 01/05/22 1207 [facility] Work Phone: 1(694) 329-620910-05-2022 Progress note Author Henry Burnett [facility] January 04, 2022 4:20pm Note Date/Time January 04, 2022 4: 20pm [facility] [address] [place] [address] Hospitalist Progress Note Signed Patient: Kyleigh Adame MR#: [id number] : 1960 Acct:[id number] Age/Sex: 61 / F Adm Date: 2 Loc: Room: [address] [place] [address] Type: ADM INOo Attending Dr: Henry Burnett [...] Flu Vac Quad (36month+)Pf 0.5 Ml Syringe IM 01/04/22 18:34 .ONCE ONE Irbesartan 300 [...] <Electronically signed by Henry Burnett MD> 01/04/22 3569 [facility] Work Phone: 1(755) 926-471010-05-2022 Consult note Author Graham Helm [facility] January 04, 2022 2:08pm Note Date/Time January 04, 2022 2: 04pm [facility] [address] [place] [address] Psychiatry Consult Note Signed Patient: Kyleigh Adame MR#: [id number] : 1960 Acct:[id number] Age/Sex: 61 / F Adm Date: 2 Loc: Room: [address] [place] [address] Type : ADM INOo Attending Dr: Herny Burnett MD Copies to: MD Vicky Painting MD Obaydah M Daromar, MD~ HPI Consult Date: 01/04/22 Requesting Physician: Henry Burnett MD Primary Care Provider: Vicky Arnett MD Consult Narrative Reason for consult: confusion, med rec HPI: Ms. Adame is a 61 year old female who [...] stated that she sees a psychiatrist in [place]. She reported that he is helping her [...] Appearance Clear Urine pH 5.5 Ur Specific [place] 1.012 Urine Protein Negative Urine Glucose (UA) [...] Color Urine Appearance Urine pH Ur Specific [place] Urine Protein Urine Glucose (UA) Urine Ketones Urine Occult Blood Urine Nitrite Ur Leukocyte Esterase Urine RBC Urine WBC Valproic Acid 59.0 01/04/22 10:13 RBC Hgb Hct MCV MCH MCHC RDW Plt Count MPV Sodium Potassium Chloride Carbon Dioxide Anion Gap BUN Creatinine Calcium Total Bilirubin AST ALT Alkaline Phosphatase Total Protein Albumin Urine Color Urine Appearance Urine pH Ur Specific [place] Urine Protein Urine Glucose (UA) Urine Ketones [...] By: <Electronically signed by Graham Helm MD> 01/04/221407 [facility] Work Phone: 1(624) 784-660410-04-2022 History and physical note Author Henry Burnett [facility] January 03, 2022 6:58pm Note Date/Time January 03, 2022 4: 55pm [facility] [address] [place] [address] Hospitalist H&P Signed Patient: Kyleigh Adame MR#: [id number] : 1960 Acct:[id number] Age/Sex: 61 / F Adm Date: 2 Loc: Room: [address] [place] [address] Type: ADM INOo Attending Dr: Henry Burnett [...] 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 Decision was to admit the patient [...] % (Auto) 22.3 % (.) 01/03/22 14:35 [place] % (Auto) 8.9 % (.) 01/03/22 14:35 Eos % (Auto) 1.4 % (.) 01/03/22 14:35 Baso % (Auto) 0.6 % (.) 01/03/22 14:35 Neut # (Auto) 4.3 x10E3/uL (1.8-7.7) 01/03/22 14:35 Lymph # (Auto) 1.4 x10E3/uL (1.00-4.8) 01/03/22 14:35 [place] # (Auto) 0.6 x10E3/uL (0.0-0.8) 01/03/22 14:35 [...] pH 5.5 (5.0-9.0) 01/03/22 14:20 Ur Specific [place] 1.012 (1.001-1.030) 01/03/22 14:20 Urine Protein Negative [...] <Electronically signed by Henry Burnett MD> 01/03/22 1858 [facility] Work Phone: 1(288) 440-234907-15-2022 History of Present illness Narrative* Eliana Bonds MD - 10/14/2021 2:11 PM EDT BEHAVIORAL HEALTH PSYCHIATRIC PROGRESS NOTE 10/14/2021 Kyleigh Adame, a 60 y.o. female, for psychotropic medication [...] Continue with same provider ( Rocky @ [facility] in [place]) Follow up as scheduled or return early if needed. School or community referral: None Treatment Goals and Objectives discussed. Other Referrals/Consults/Psychological Testing: None Eliana Bonds documented in this [id number] History of Present illness Narrative* Eliana Bonds MD - 07/19/2021 12:58 PM EDT BEHAVIORAL HEALTH PSYCHIATRIC PROGRESS NOTE 07/19/2021 Kyleigh Adame, a 60 y.o. female, for follow-up visit [...] Continue with same provider ( Rocky @ [facility] in [place]) Follow up as scheduled or return early if needed. School or community referral: None Treatment Goals and Objectives discussed. Other Referrals/Consults/Psychological Testing: None Eliana Bonds documented in this [id number] Miscellaneous Notes* Telephone Encounter - Sarah Leigh MA - 05/16/2021 11:04 AM EST Pt is completely out and wants a 30 day supply sent to the local pharmacy. Another refill encounterto follow with a 90 day supply to go to [facility]. documented in this [id number] History of Present illness Narrative* Eliana Bonds MD - 09/24/2020 1:16 PM EDT BEHAVIORAL HEALTH PSYCHIATRIC PROGRESS NOTE 09/24/2020 Kyleigh Adame, a 59 y.o. female, for follow-up visit [...] patient. Medication risks/benefit reviewed with the patient Eliana Bonds documented in this [id number] History of Present illness Narrative* Eliana Bonds MD - 07/27/2020 2:43 PM EDT Telephone Visit Via Phone Call [facility] [phone] Telephone Visit [facility] 07/27/2020 Eliana Bonds MD Provider Location: [facility] Patient Location Product Management Specialist: None Patient Location: Patient's Home Patient: Kyleigh Adame Date of : 1960 (59 y.o. female) [...] there are inherent diagnostic limitations compared to fvix-sz-tupn evaluations. We elected toproceed with the telephone [...] and Plan of Care. documented in this encounterOregonHealthEvaluation + Plan note Future Appointments Appointment Date:11/27/2023 03:00:00 PM Scheduled Provider:PRANAV CARVALHO PA-C Location:[facility] Appointment Type:URO Office Visit [facility] evaluation note* Diagnosis Bipolar 1 disorder, [...] Altered mental status acute Coarse tremors acute [facility] Work Phone: Evaluation note* Diagnosis Onset Date Resolution Status Acute encephalopathy acute NAEEM (acute kidney injury) ac jessica Altered mental status acute Coarse tremors acute Hypertensive urgency acute UTI (urinary tract infection) acute [facility] Work Phone: Evaluation note* Diagnosis [...] ear, initial encounter documented in this encounter [facility] HealthcareEvaluation note* Diagnosis Sensorineural hearing loss (SNHL) of both ears- Primary Ear pressure, right documented in this encounter [facility] HealthcareEvaluation note* Diagnosis Lisfranc dislocation, left, initial encounter- Primary Plantar fasciitis Plantar fascial fibromatosis Contusion of left foot, initial encounter documented in this encounter [facility] HealthcareEvaluation note* Diagnosis DJD (degenerative joint disease), ankle and foot, left- Primary Lisfranc dislocation, left, initial encounter documented in this encounter [facility] HealthcareEvaluation note* Diagnosis DJD (degenerative joint disease), ankle and foot, left- Primary Lisfranc dislocation, left, initial encounter Other physeal fracture of left metatarsal, initial encounter for closed fracture Capsulitis of metatarsophalangeal (MTP) joint of left foot documented in this encounter [facility] HealthcareEvaluation note* Diagnosis Other physeal fracture of left metatarsal, initial encounter for closed fracture- Primary DJD (degenerative joint disease), ankle and foot, left Lisfranc dislocation, left, initial encounter Capsulitis of metatarsophalangeal (MTP) joint of left foot documented in this encounter [facility] HealthcareEvaluation noteNo assessment information availableKing[facility] [place] Work Phone: Evaluation note* Diagnosis DJD (degenerative joint disease), ankle and foot, left- Primary Contracture of right ankle documented in this encounter [facility] HealthcareEvaluation note* Diagnosis DJD (degenerative joint disease), ankle and foot, left- Primary Lisfranc dislocation, left, initial encounter Capsulitis of metatarsophalangeal (MTP) joint of left foot Contracture of right ankle documented in this encounter [facility] HealthcareHospital course Narrative No data available for this section [facility] Hospital Discharge instructions Additional Instructions -Take Ceftin antibiotics treatment for UTI for 5 more days -Take new blood pressure medicine Hydralazine 25 mg three times a day. Hold if your BP <100/60 -Follow up with your primary doctor for blood pressure control and adjustment in medications if needed -[facility] [employer] Work Phone: Progress note No data available for this section [facility] reason for referral (narrative)No reason for referral information availableDunlap Memorial Hospital [employer] Work Phone: History of Present Illness * Eliana Bonds MD - 04/09/2020 2:42 PM EST Telephone Visit Via Phone Call [facility] [address] [facility] [phone] Telephone Visit [facility] 04/06/2020 Eliana Bonds MD Provider Location: [place] Patient Location Product Management Specialist: None Patient Location: Patient's Home Patient: Kyleigh Adame Date of : 1960 (59 y.o. female) [...] there are inherent diagnostic limitations compared to xjfm-iv-pprg evaluations. We elected toproceed with the telephone [...] Plan of Care. documented in this encounter* Eliana Bonds MD - 05/31/2020 1:43 PM EST BEHAVIORAL [...] Goals and Objectives discussed. 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 Advance Directives and Living Will [...] For Braces Or Orthotics Scan for orthotics Reason Comments Consent Or Instructions Orthotic hand picker Care Teams (unrecognized sec tion and content) Green Jobs Trainer Relationship Specialty Start Date End Date Vicky Arnett MD [address] [place] [address] PCP - General Family Medicine 04/05/20 Green Jobs Trainer Relationship Specialty Start Date End Date Vicky Arnett MD [address] [place] [address] PCP - General Family Medicine 04/05/20 Green Jobs Trainer Relationship Specialty Start Date End Date Vicky Arnett MD [address] [place] [address] PCP - General Family Medicine 04/05/20 Green Jobs Trainer Relationship Specialty Start Date End Date Vicky Arnett MD [address] [place] [address] PCP - General Family Medicine 04/05/20 Green Jobs Trainer Relationship Specialty Start Date End Date Vicky Arnett MD [address] [place] [address] PCP - General Family Medicine 04/05/20 Team [...] Active Graham Helm MD Other Provider Active Green Jobs Trainer Relationship Specialty Start Date End Date Vicky Arnett MD [address] [place] [address] PCP - General Family Medicine 04/05/20 Green Jobs Trainer Relationship Specialty Start Date End Date Vicky Arnett MD [address] [place] [address] PCP - General Family Medicine 04/05/20 Green Jobs Trainer Relationship Specialty Start Date End Date Vicky Arnett MD [address] [place] [address] PCP - General Family Medicine 04/05/20 Green Jobs Trainer Relationship Specialty Start Date End Date Vicky Arnett MD [address] [place] [address] PCP - General Family Medicine 04/05/20 Green Jobs Trainer Relationship Specialty Start Date End Date Vicky Arnett MD [address] [place] [address] PCP - General Family Medicine 04/05/20 Green Jobs Trainer Relationship Specialty Start Date End Date Vicky Arnett MD [address] [place] [address] PCP - General Family Medicine 02/05/24 Valerie Moss MD [address] [place] [address] Referring Physician Family Medicine 01/29/24 Green Jobs Trainer Relationship Specialty Start Date End Date Vicky Arnett MD [address] [place] [address] PCP - General Family Medicine 02/05/24 Valerie Moss MD [address] [place] [address] Referring Physician Family Medicine 01/29/24 Green Jobs Trainer Relationship Specialty Start Date End Date Vicky Arnett MD [address] [place] [address] PCP - General Family Medicine 02/05/24 Valerie Moss MD [address] [place] [address] Referring Physician Family Medicine 01/29/24 Green Jobs Trainer Relationship Specialty Start Date End Date Vicky Arnett MD [address] [place] [address] PCP - General Family Medicine 02/05/24 Valerie Moss MD [address] [place] [address] Referring Physician Family Medicine 01/29/24 Green Jobs Trainer Relationship Specialty Start Date End Date Vicky Arentt MD [address] [place] [address] PCP - General Family Medicine 09/26/23 Green Jobs Trainer Relationship Specialty Start Date End Date Vicky Arnett MD [address] [facility] [place] [address] PCP - General Family Medicine 02/05/24 Valerie Moss MD [address] [place] [address] Referring Physician Family Medicine 01/29/24 Green Jobs Trainer Relationship Specialty Start Date End Date Vicky Arnett MD [address] [place] [address] PCP - General Family Medicine 02/05/24 Valerie Moss MD [address] [place] [address] Referring Physician Family Medicine 01/29/24 Green Jobs Trainer Relationship Specialty Start Date End Date Vicky Arnett MD [address] [place] [address], [place] [address] PCP - General Family Medicine 02/05/24 Valerie Moss MD [address] [place] [address] Referring Physician Family Medicine 01/29/24 Green Jobs Trainer Relationship Specialty Start Date End Date Vicky Arnett MD [address] [place] [address] PCP - General Family Medicine 02/05/24 Valerie Moss MD [address] [place] [address] Referring Physician Family Medicine 01/29/24 Green Jobs Trainer Relationship Specialty Start Date End Date Vicky Arnett MD [address] [place] [address] PCP - General Family Medicine 02/05/24 Valerie Moss MD [address] [place] [address] Referring Physician Family Medicine 01/29/24 Green Jobs Trainer Relationship Specialty Start Date End Date Vicky Arnett MD [address] [place], [place] [phone] PCP - General Family Medicine 02/05/24 Valerie Moss MD [address] [place] [address] Referring Physician Family Medicine 01/29/24 Green Jobs Trainer Relationship Specialty Start Date End Date Vicky Arnett MD [address] [place] [address] PCP - General Family Medicine 02/05/24 Valerie Moss MD [facility] [place] [address] Referring Physician Family Medicine 01/29/24 Team Status: Inactive Member Role Status Dates Vicky Arnett MD Primary Care Provider Active Start: September 29, 2024 End: September 29, 2024 Gilmer Rivera DPM Attending Provider Active Start: September 29, 2024 End: September 29, 2024 Green Jobs Trainer Relationship Specialty Start Date End Date Vicky Arnett MD [facility] [place] [address] PCP - General Family Medicine 02/05/24 Valerie Moss MD [address] [place] [address] Referring Physician Family Medicine 01/29/24 Green Jobs Trainer Relationship Specialty Start Date End Date Vicky Arnett MD [facility] [place] [address] PCP - General Family Medicine 02/05/24 Valerie Moss MD [facility] [place] [address] Referring Physician Family Medicine 01/29/24 Green Jobs Trainer Relationship Specialty Start Date End Date Vicky Arnett MD [address] [place] [address] PCP - General Family Medicine 02/05/24 Valerie Moss MD [address] [place] [address] Referring Physician Family Medicine 01/29/24 Goals (unrecognized [...] CREATED AUTHOR AUTHOR'S ORGANIZ ATION 06/01/2022 [facility] DATE CREATED AUTHOR AUTHOR'S ORGANIZ ATION 11/06/2023 Emma Macedo sp[facility]anna DATE CREATED AUTHOR AUTHOR'S ORGANIZ ATION 10/10/2024 [facility] DATE CREATED AUTHOR AUTHOR'S ORGANIZ ATION 12/06/2024 [facility] DATE CREATED AUTHOR AUTHOR'S ORGANIZ ATION 12/14/2024 [facility] DATE CREATED AUTHOR AUTHOR'S ORGANIZ ATION 12/16/2024 [facility] FOR RECORDS PERTAINING TO PATIENTS WHO ARE [...] BE BASED ON THE PRIMARY CLINICAL RECORDS. [facility] [employer] [facility]. provides no warranty or guarantee of the accuracy or completeness of information in this document.
[2024-12-25 10:05] LABS: Estimated GFR (African America 37 (>=60 mL/min/1.73m^2); Estimated GFR (Non-African Ame 31 (>=60 mL/min/1.73m^2)
[2024-12-25 10:10] VITALS: BP 124/83; PULSE 63; TEMP 36.3; O2SAT 97
[2024-12-25] MEDS: 0.9 % SODIUM CHLORIDE 500 ML 1000 ML IV (10:14)
--- NOTE | 2024-12-25 10:55 | CT_ITS ---
The [address] [address] Patient Name: KATHY PORTER MRN: [id number] date: 1960 Sex: F Assigned Patient Location: LAB Current Patient Location: LAB Accession/Order Number: [id number] Exam Date: 12/25/2024 11:10 Report Date: 12/25/2024 12:30 At the request of: DARYN CULVER Procedure: CT abdomen pelvis wo/w con CT ABDOMEN AND PELVIS WITH AND WITHOUT INTRAVENOUS CONTRAST: CT UROGRAM CLINICAL HISTORY: Kidney stones N20.0 COMPARISON: None TECHNIQUE: Spiral images were obtained through the abdomen and pelvis were obtained before and after the administration of intravenous contrast. CT urogram protocol was utilized. This CT exam was performed using one or more following dose reduction techniques: Automated exposure control, adjustment of the mA and/or kV according to patient size, or use of iterative reconstruction technique. FINDINGS: Lung Bases: [Mild lung scarring.] Organs:Noncontrasted images demonstrate a punctate stone involving the left kidney. No hydronephrosis. Postcontrast imaging demonstrates the kidneys appear atrophic with cystic changes. No enhancing mass is seen. Asymmetrical prominence of the left renal pelvis likely related to UPJ stricture. Delayed images demonstrate no contrast within the left ureter. Right ureter appears grossly unremarkable. Urinary bladder is grossly unremarkable. Gallbladder has been removed. Liver spleen pancreas and adrenal glands appear unremarkable. Aorta appears normal in caliber. GI: Stomach is grossly unremarkable. Small bowel appears nondilated. No acute colonic abnormality.[ Pelvis:[Uterus is grossly unremarkable.] Peritoneum/Retroperitoneum:No free air or free fluid or lymphadenopathy.[ Abd wall/Bones:Abdominal wall demonstrate no acute findings. Osseous structures demonstrate degenerative change.[ CT/CT abdomen pelvis wo/w con IMPRESSION: Asymmetrical prominence of the left renal pelvis without contrast seen within the ureter on delayed imaging suspicious for UPJ stricture. Punctate left nephrolithiasis. Impression dictated by: Cesar Butler Jr., D.O. 12/25/2024 12:30 PM Dictation Location: [place] [address] Electronically authenticated by: [id number] Y Date: 12/25/2024 12:30
== END 2024-12-31 08:09 | disposition home or self-care (01) ==
LOC: LAB 09:48
PROVIDERS: PCP Family Medicine; Visit Provider Student in an Organized Health Care Education/Training Program
DX: N20.0 Calculus of kidney (principal); Z51.81 Encounter for therapeutic drug level monitoring
CPT/HCPCS: 36415; 74178; 82565; Q9967

== ENCOUNTER 2025-01-05 10:54 | Outpatient (OUT) | payer OTHER, SELFPAY ==
--- OUTSIDE RECORDS SUMMARY | 2024-02-11 05:00 | XMS_ITS ---
Author Organization [facility] Address [address] [place] [address] Care Team Providers Care Lab Support Technician Name Role Phone Peter Arnett Primary Care Provider Kev Johnson [facility] [phone] REASON FOR VISIT RIGHT TIBIAL PLATEAU FX Encounters Encounter Location Date Provider Diagnosis [facility] Office [address] [facility] [place] [address] 02/11/2024 Kev Steen Plan Of Treatment No Information Progress Notes * KATHY PORTER SDOB:[birth year] (64 yo F)Acc No.[id number]:02/11/2024 Patient: KATHY ALMEIDA Provider: Fam Steen MD :1960 A ge:63 Y S ex:Female Date:02/11/2024 Address:[address] [place], [place] [id number] Pcp:Peter Arnett Subjective: * Chief Complaints: * 1 . RIGHT TIBIAL PLATEAU FX. * Medical History: Objective: * Vitals: Assessment: Plan: * Treatment: Forms: * Images: * Electronic signature of Manav Steen MD on 01/05/2025 at 10:57 AM EDT Sign off status: Pending * Provider: Fam Steen MD Date: 04/12/2023 Generated for Radha serna/Nitesh/eTransmitting on: 10:57 AM EDT
--- OUTSIDE RECORDS SUMMARY | 2025-01-05 10:57 | XMS_ITS | Encounter Summary ---
Author Organization [facility] Address [address] [place] [address] Care Team Providers Care Hospitality Specialist Name Role Phone Valerie Krause MD Unavailable [phone] Peter Arnett MD Primary Care Provider [phone] Encounter Details Date Type Department Care Team (Late st Contact Info) Description 12/09/2014 Abstract [facility] [address] [place] [address] Lilibeth Pena, [facility] [address] [place] [address] Social History Tobacco Use Types Packs/Day Years Used Date Smoking Tobacco: Never Assessed Comments Unknown Sex and Gender Information Value Date Recorded Sex Assigned at Not on file Legal Sex Female 6:37 PM EDT Gender Identity Not on file Sexual Orientation Not on file documented as of this encounter Plan of Treatment Not on file documented as of this encounter Visit Diagnoses Not on filedocumented in this encounter Care Teams Hospitality Specialist Relationship Specialty Start Date End Date Peter Arnett MD [address] [place] [address] PCP - General Family Medicine 02/05/24 Valerie Krause MD [address] [place] [address] Referring Physician Family Medicine 01/29/24 documented as of this encounter
--- OUTSIDE RECORDS SUMMARY | 2025-01-05 10:57 | XMS_ITS | Patient Health Record ---
Author Organization [facility] Address [address] [place] [address] Care Team Providers Care Aerospace Products Sales Engineer Name Role Phone Peter Arnett Primary Care Provider Kev Johnson [facility] [phone] Reason For Referral No Information Medications Medication [...] Problem Status W/U Status Risk Notes Problem 119527112 Closed fracture of right tibial plateau, initial encounter (S82.141A) Active confirmed Problem 490813765 Closed disp bicondylar fracture of right tibia with routine healing (S82.141D) Active confirmed Plan Of Treatment Pending Test Test Name Order Date DME - Elevated Toilet Seat OTS [facility]- KNEE 2VIEW RIGHT [id number] 09/03/2023 [facility]- KNEE 2VIEW RIGHT [id number] 12/10/2023 DME - Wheeled Walker 08/20/2023 SCC- KNEE 2VIEW RIGHT [id number] 12/10/2023 Insurance Providers Payer Name Payer Address Payer Phone Subscriber Number Group Number Insured Name Patient Relationship to Insured Coverage Start Date Coverage End Date [employer] [place] [address] [address] [place] [address] [phone] [id number] KATHY PORTER Self - patient is the insured
--- OUTSIDE RECORDS SUMMARY | 2025-01-05 10:57 | XMS_ITS | Encounter Summary ---
Author Organization [facility] Address [address] [place] [address] Care Team Providers Care Veneer Grader Name Role Phone Valerie Krause MD Unavailable [phone] Peter Arnett MD Primary Care Provider [phone] Encounter Details Date Type Department Care Team ([facility] Contact Info) Description 10/17/2024 Abstract [facility] [address] [facility] [address] [place] [phone] Gilmer Rivera, DPM [address] [facility] 5 [place] [address] Social History Tobacco Use Types Packs/Day Years [...] on filedocumented in this encounter Care Teams Veneer Grader Relationship Specialty [place] [address] [place] [phone] PCP - General Family Medicine 02/05/24 Valerie Krause MD [address] [place] [address] Referring Physician Family Medicine 01/29/24 documented as of this encounter
--- OUTSIDE RECORDS SUMMARY | 2025-01-05 10:57 | XMS_ITS | Clinical Summary ---
Author Organization [facility] Address [address] [place] [address] Care Team Providers Care Core Drill Operator Name Role Phone Valerie Krause MD Unavailable [phone] Peter Arnett MD Primary Care Provider [phone] Allergies Active Allergy Reactions Criticality Noted Date [...] Encounters Date Type Department Care Team Description 12/19/2024 Abstract [facility] [address] [place] [phone] Gilmer Rivera DPM 12/15/2024 11:50 AM EDT Office Visit [facility] [address] [place] [address] Gilmer Rivera DPM DJD (degenerative joint disease), ankle and foot, left (Primary Dx); Lisfranc dislocation, left, initial encounter; Capsulitis of metatarsophalangeal (MTP) joint of left foot; Contracture of right ankle 12/15/2024 Bamboo flowsheet [facility] [address] [place] [address] Gilmer Rivera DPM 12/12/2024 Abstract [facility] [address] [address] Gilmer Rivera DPM 11/11/2024 10:20 AM EDT Office Visit [facility] [address] [place] [phone] Gilmer Rivera DPM DJD (degenerative joint disease), ankle and foot, left (Primary Dx); Contracture of right ankle 11/11/2024 Bamboo flowsheet [facility] [address] [place] [address] Gilmer Rivera DPM 10/17/2024 Abstract [facility] [address] [facility] [address] [place] [address] Gilmer Rivera DPM 10/13/2024 1:50 PM EDT Office Visit [facility] [address] [place] [address] Gilmer Rivera DPM DJD (degenerative joint disease), ankle and foot, left (Primary Dx); Lisfranc dislocation, left, initial encounter 10/13/2024 Telephone [facility] [address] [facility] [address] [place] [address] Gilmer Rivera DPM Casting For Braces Or Orthotics 10/13/2024 Bamboo flowsheet [facility] [address] [place] [address] Gilmer Rivera DPM from Last 3 Months [...] - Temperature - - Respiratory Rate 18 12/15/2024 11:46 AM EDT Oxygen Saturation - - Inhaled Oxygen Concentration - - Weight 89.8 kg (198 lb) 12/15/2024 11:46 AM EDT Height 157.5 cm (5' 2 ) 12/15/2024 11:46 AM EDT Body Mass Index 36.21 12/15/2024 11:46 AM EDT Plan of Treatment Health Maintenance Due Date Last Done Comments CT Colonography 1962 FIT-DNA 1962 FIT 1962 FOBT 1960 Sigmoidoscopy 1962 Pap Smear 12/12/1983 Cervical Cancer Screening 1992 HPV/Cotest 1992 Mammogram 2002 Colonoscopy 05/19/2023 05/19/2013 Colorectal Cancer Screening 05/19/2023 Influenza Vaccine (#1) 2024 2, 04/22/2019, 03/07/2017, Additional history exists Procedures Procedure Name Priority Date/Time Associated Diagnosis Comments COLONOSCOPY Routine 05/19/2013 12:00 PM EST from Last 3 Months or Most Recently Relevant to Health Maintenance Results * Colonoscopy (05/19/2013 12:00 PM EST) Anatomical Region Laterality Modality Endoscopy 05/19/2013 12:0 0 PM EST Narrative 05/19/2013 12:00 PM EST PERFORMED AT [facility] LOCATION:[id number] Polyps Procedure Note CONVERSION, GENERIC - 08/17/2022 PERFORMED AT [facility] LOCATION:[id number] Polyps us Emelyn Smith MD ENDOSCOPY PROCEDURE ORDERABLES F inal Result from Last 3 Months or Most Recently Relevant to Health Maintenance Insurance [employer] Care Teams Core Drill Operator Relationship Specialty Start Date End Date Peter Arnett MD [address] [place] [phone] PCP - General Family Medicine 02/05/24 Valerie Krause MD [address] [place] [address] Referring Physician Family Medicine 01/29/24
--- OUTSIDE RECORDS SUMMARY | 2025-01-05 10:57 | XMS_ITS | Encounter Summary ---
Author Organization [facility] Address [address] [place] [address] Care Team Providers Care Muffler Installer Name Role Phone Valerie Krause MD Unavailable [phone] Peter Arnett MD Primary Care Provider [phone] Encounter Details Date Type Department Care Team (Late st Contact Info) Description 09/29/2024 External Result Encounter [facility] External Department Unsolicited Gilmer Rivera, DPM [address] [address] Social History Tobacco Use Types Packs/Day Years [...] on file documented as of this encounter Procedures Procedure [...] Portillo M.D. 09/29/2024 10:53 PM Dictation Location: [facility]20 Transcribed By: [facility] 09/29/242252 Dictated By: Ethan Portillo DO 09/29/242247 Signed By: <Electronically signed by Ethan Portillo DO in OV> 09/29/242252 Narrative 09/29/2024 10:56 PM EDT [facility] Main [place] [id number] CT Scan Report Signed Patient: Kyleigh Adame MR#: [id number] 827 : 1960 Acct:[id number] Age/Sex: 63 / F ADM Date: 09/29/24 Loc: CT Room: Type: [facility] CLI Attending Dr: Gilmer Rivera DPM Copies [...] con Procedure Note Radiology, Radiologist, - 10/09/2024 [facility] Main [address] [address] [address] Scan Report Signed Patient: Kyleigh Adame [facility]#: [id number] : 1960Acct:[id number] Age/Sex: 63 / FADM Date: 09/29/24 Loc: CT Room:Type: [facility] CLI Attending Dr: Gilmer Rivera DPM Copies to: Gilmer Rievra DPM Ordering Provider: Gilmer Rivera DPM Date [...] Portillo M.D. 09/29/2024 10:53 PM Dictation Location: [place] [address] Transcribed By: [facility] 09/29/242252 Dictated By: Ethan Portillo DO 09/29/242247 Signed By: <Electronically signed by Ethan Portillo DO in OV> 09/29/242252 us Gilmer Rivera DPM IMG CT PROCEDURES Edited Re sult - Final documented in this encounter Visit Diagnoses Not on filedocumented in this encounter Care Teams Muffler Installer Relationship Specialty Start Date End Date Peter Arnett MD [address] [place] [phone] PCP - General Family Medicine 02/05/24 Valerie Krause MD [address] [place] [address] Referring Physician Family Medicine 01/29/24 documented as of this encounter
--- OUTSIDE RECORDS SUMMARY | 2025-01-05 10:58 | XMS_ITS | Patient Health Record ---
Author Organization [facility] Address [address] [place] [address] Care Team Providers Care Guest Services Representative Name Role Phone Мария Crespo Primary Care [...] W/U Status Risk Notes Problem Bipolar disorder (23047211) Bipolar 1 disorder, depressed (F31.9) Active confirmed Plan Of Treatment No Information Insurance Providers Payer Name Payer Address Payer Phone Subscriber Number Group Number Insured Name Patient Relationship to Insured Coverage Start Date Coverage End Date [facility] [address] [place] [phone] [id number] TERRIE PORTER Spouse - patient is the spouse of the insured 1
--- OUTSIDE RECORDS SUMMARY | 2025-01-05 10:58 | XMS_ITS | Clinical Summary ---
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 Maintenance Mechanic Name Role Phone Peter Arnett MD Primary Care Provider [phone] Allergies Active Allergy Reactions Criticality Noted Date [...] 2) 2012 Diabetes Screening 01/18/2019 01/19/2016, 01/19/2016 Covid-19 Vaccine (1 - season) 2024 Influenza Vaccine (#1) 2024 RSV Vaccine (1 - 1-dose 75+ series) 2037 Procedures Procedure Name Priority Date/Time Associated Diagnosis Comments HGB A1C (EU,FV,HL,JATINDER,MM,SP) THALIA 01/19/2016 4:29 PM EDT from Last 3 Months or Most Recently Relevant to Health Maintenance Results * HGB A1C (EU,FV,HL,JATINDER,MM,SP) (01/19/2016 4:29 PM EDT) Hemoglobin A1C 5.1 4.3 - 5.6 % 01/19/2016 9:00 PM EDT [facility] Estimated Average Glucose 100 mg/dL 01/19/2016 9:01 PM EDT [facility] Comment: eAG: (Estimated average glucose) is a calculated value from HgbA1c and is outbound sales representative of the average blood glucose level in the last 2-3 month period. Blood specimen (specimen) WHOLE BLOOD SPECIMEN / Unknown 01/19/2016 4:29 PM EDT 01/19/2016 4:52 PM EDT us Maricarmen Mccauley MD [facility] Final R esult [facility] [address] [place] [id number] from Last 3 Months or Most Recently Relevant to Health Maintenance Insurance [facility] PPO Care Teams Textile Machine Maintenance Mechanic Relationship Specialty Start Date End Date Peter Arnett MD PCP - General Family Medicine 10/12/14
--- OUTSIDE RECORDS SUMMARY | 2025-01-05 10:58 | XMS_ITS | Encounter Summary ---
Author Organization [facility] Address [address] [place] [address] Care Team Providers Care Guidance Secretary Name Role Phone Valerie Krause MD Unavailable [phone] Peter Arnett MD Primary Care Provider [phone] Encounter Details Date Type Department Care Team ([facility] Contact Info) Description 12/19/2024 Abstract [facility] [address] [facility] 120 [place] [phone] Gilmer Rivera, DPM [address] [facility] 5 [place] [address] Social History Tobacco Use Types Packs/Day Years [...] on filedocumented in this encounter Care Teams Guidance Secretary Relationship Specialty [place] [address] [place] [phone] PCP - General Family Medicine 02/05/24 Valerie Krause MD [address] [place] [address] Referring Physician Family Medicine 01/29/24 documented as of this encounter
--- OUTSIDE RECORDS SUMMARY | 2025-01-05 10:58 | XMS_ITS | Patient Health Record ---
Author Organization [facility] in [place] Address [address] [place] [address] Care Team Providers Care Transcription Manager Name Role Phone José Antonio Arnett Primary Care Provider [phone] Valerie Krause [phone] Allergies Allergen (clinical drug ingredient) Drug/Non Drug Allergy documented on EMR Reaction Allergy Type Onset Date Status Substance with sulfonamide structure and antibacterial mechanism of action (substance) Sulfa Antibiotics hives/ rash Drug Allergy Active Results Component Value Reference Range Notes FREE T3 Reviewed date:05/29/2024 08:07:43 PM Interpretation: Performing Lab: Notes/Report: [facility] , Free T3 2.87 2.18-3.98 pg/mL Performing Lab: see note ML - [facility] LB GLYCOHEMOGLOBIN A1C Reviewed date:05/29/2024 08:07:43 PM Interpretation: Performing Lab: Notes/Report: [facility] , Glycohemoglobin A1C 5.1 4.5-6.2 % > 7.0 ADA THERAPEUTIC TARGET < 7.0 ACTION SUGGESTED ADA RECOMMENDED LIMIT 4.0 - 6.0 Estimated Average Glucose 100 Performing Lab: see note ML - [facility] LB IRON Reviewed date:05/29/2024 08:07:43 PM Interpretation: Performing Lab: Notes/Report: [facility] , Iron 41.0 50.0-170.0 ug/dL Performing Lab: see note ML - [facility] LB LIPID PROFILE Reviewed date:05/29/2024 08:07:43 PM Interpretation: Performing Lab: Notes/Report: [facility] , Triglycerides 121 <=150 mg/dL Cholesterol 150 <=200 mg/dL HDL Cholesterol 56 40-60 mg/dL > or =60 mg/dl - LOW CARDIOVASCULAR RISK <40 mg/dl - HIGH CARDIOVASCULAR RISK LDL Cholesterol Calculated 69.8 >190 mg/dl VERY HIGH <100 mg/dl OPTIMAL 130-159 mg/dl BORDERLINE HIGH 100-129 mg/dl NEAR OR ABOVE OPTIMAL 160-189 mg/dl HIGH VLDL CHOLESTEROL 24.2 Chol HDL Ratio 2.7 3.3 - 4.4 LOW RISK 7.1 - 11.0 MODERATE RISK 4.4 - 7.1 AVERAGE RISK >11.0 HIGH RISK Performing Lab: see note ML - [facility] PROF 14(COMP METB) Reviewed date:05/29/2024 08:07:43 PM Interpretation: Performing Lab: Notes/Report: [facility] , Sodium 143 136-145 mmol/L Potassium [...] 1.0 Performing Lab: see note ML - [facility] LB T4 Reviewed date:05/29/2024 08:07:43 PM Interpretation: Performing Lab: Notes/Report: [facility] , T4 Thyroxine 7.80 4.80-13.90 ug/dL Performing Lab: see note ML - [facility] LB TSH Reviewed date:05/29/2024 08:07:43 PM Interpretation: Performing Lab: Notes/Report: [facility] , Thyroid Stimulating Hormone 6.193 0.358-3.740 u IU/mL Performing Lab: see note ML - [facility] LB FREE T3 Reviewed date:12/03/2024 06:14:40 PM Interpretation: Performing Lab: Notes/Report: [facility] , Free T3 2.49 2.18-3.98 pg/mL Performing Lab: see note ML - [facility] LB T4 Reviewed date:12/03/2024 06:14:40 PM Interpretation: Performing Lab: Notes/Report: [facility] , T4 Thyroxine 10.10 4.80-13.90 ug/dL Performing Lab: see note ML - [facility] LB TSH Reviewed date:12/03/2024 06:14:40 PM Interpretation: Performing Lab: Notes/Report: [facility] , Thyroid Stimulating Hormone 1.692 0.358-3.740 u IU/mL Performing Lab: see note ML - [facility] LB CREATININE Reviewed date:12/25/2024 12:55:56 PM Interpretation: Performing Lab: Notes/Report: [facility] , Creatinine 1.69 0.55-1.02 mg/dL Estimated GFR ( [place] 37 >=60 mL/min/1.73m 2 Estimated GFR (Non- [place] 31 >=60 mL/min/1.73m 2 Performing Lab: see note ML - [facility] LB XR abdomen 1V Reviewed date:11/11/2024 08:24:27 PM Interpretation: Performing Lab: Notes/Report: Source Facility: [place] [address] [place] [address] XRay Report Signed Patient: KYLEIGH PORTER MR#: [id number] : 1960 Acct:[id number] Age/Sex: 63 / F ADM Date: 11/11/24 Loc: RAD Attending Dr: Daryn CULVER Ordering Physician: Daryn Beck Date of Service: 11/11/24 Procedure(s): XR abdomen 1V Accession Number(s): [id number] cc: Vicky Arnett M.D.; Daryn Beck [address] [address] Patient Name: KYLEIGH PORTER MRN: [id number] date: 1960 Sex: F Assigned Patient Location: RAD Current Patient Location: [facility] Accession/Order Number: [id number] Exam Date: 11/11/2024 12:13 Report Date: 11/11/2024 [...] Jr., D.O. 11/11/2024 12:14 PM Dictation Location: [place] [address] Electronically authenticated by: [id number] Y Date: 11/11/2024 12:14 Dictated By: Cesar Butler M.D. Signed By: 11/11/24 1216 DD/ 1214 TD/TT: Roofing Machine Operator: CT FOOT LT WO CON Reviewed date:07/11/2024 12:58:29 PM Interpretation: Performing Lab: Notes/Report: Source Facility: [place] [address] [place] [address] CT Scan Report Signed Patient: KYLEIGH PORTER MR#: [id number] : 1960 Acct:[id number] Age/Sex: 63 / F ADM Date: 07/11/24 Loc: CT Attending Dr: ROXANA LANE Ordering Physician: ROXANA LANE Date of Service: 07/11/24 Procedure(s): CT foot LT wo con Accession Number(s): [id number] cc: Vicky Arnett M.D. [address] [address] Patient Name: KYLEIGH PORTER MRN: [id number] date: 1960 Sex: F Assigned Patient Location: CT Current Patient Location: CT Accession/Order Number: [id number] Exam Date: 07/11/2024 11:27 Report Date: 07/11/2024 [...] Ethan Portillo M.D.07/11/2024 11:40 AM Dictation Location: [place] [address] Electronically authenticated by: [id number] Y Date: 07/11/2024 11:40 Dictated By: Ethan Portillo D.O. Signed By: 07/11/24 1142 DD/ 1140 TD/TT: Roofing Machine Operator: FABIO tomosynthesis nahomy Gomez Reviewed date:06/29/2024 04:20:06 PM Interpretation: Performing Lab: Notes/Report: Source Facility: [facility] [place] [address] [place] [address] Mammography Report Signed Patient: KYLEIGH PORTER MR#: [id number] : 1960 Acct:[id number] Age/Sex: 63 / F ADM Date: 06/27/24 Loc: MAMMO Attending Dr: Vicky Arnett M.D. Ordering Physician: Vicky Arnett M.D. Results: Date of Service: 06/27/24 Follow Up: Procedure(s): MM tomosynthesis screening BI Accession Number(s): [id number] cc: Vicky Arnett M.D. Patient Name: KYLEIGH PORTER MR#: [id number] : 1960 Exam Date: 06/27/2024 Ordering Doctor: [...] breast cancer at age 50. LOCATION: [facility] BREAST COMPOSITION: The breasts are heterogeneously [...] Signed By: 06/27/24 1622 DD/ 20 TD/TT: Roofing Machine Operator: RAINE smith 2V Reviewed date:06/18/2024 08:05:41 PM Interpretation: Performing Lab: Notes/Report: Source Facility: [place] [address] [place] [address] XRay Report Signed Patient: KYLEIGH PORTER MR#: [id number] : 1960 Acct:[id number] Age/Sex: 63 / F ADM Date: 06/18/24 Loc: LAB Attending Dr: Vicky Arnett M.D. Ordering Physician: Vicky Arnett M.D. Date of Service: 06/18/24 Procedure(s): XR chest 2V Accession Number(s): [id number] cc: Vicky Arnett M.D. [place] [address] Patient Name: KYLEIGH PORTER MRN: [id number] date: 1960 Sex: F Assigned Patient Location: LAB Current Patient Location: LAB Accession/Order Number: [id number] Exam Date: 06/18/2024 18:40 Report Date: 06/18/2024 18:41 At the request of: VICKY ARNETT MD Procedure: XR chest 2V Chest 2 views CLINICAL HISTORY: Acute Bronchiolitis COMPARISON: Chest 07/08/2019 FINDINGS: Heart normal in size. Lungs are clear. No free air. XR/XR chest 2V IMPRESSION: NO ACUTE CARDIOPULMONARY ABNORMALITY. Impression dictated by: Cesar Butler Jr., D.OMarky06/18/2024 6:41 PM Dictation Location: [place] [address] Electronically authenticated by: [id number] Y Date: 06/18/2024 18:41 Dictated By: Cesar Butler M.D. Signed By: 06/18/241842 DD/ 40 TD/TT: Roofing Machine Operator: XR foot LT min 3V Reviewed date:06/18/2024 08:05:41 PM Interpretation: Performing Lab: Notes/Report: Source Facility: [place] [address] [place] [address] XRay Report Signed Patient: KYLEIGH PORTER MR#: [id number] : 1960 Acct:[id number] Age/Sex: 63 / F ADM Date: 06/18/24 Loc: LAB Attending Dr: Vicky Arnett M.D. Ordering Physician: Vicky Arnett M.D. Date of Service: 06/18/24 Procedure(s): XR foot LT min 3V Accession Number(s): [id number] cc: Vicky Arnett M.D. [place] [address] Patient Name: KYLEIGH PORTER MRN: [facility]:[id number] date: 1960 Sex: F Assigned Patient Location: LAB Current Patient Location: LAB Accession/Order Number: [id number] Exam Date: 06/18/2024 18:41 Report Date: 06/18/2024 [...] FRACTURE LINE IS SEEN. Impression dictated by: Arley Hernandez Jr.OMarky06/18/2024 6:43 PM Dictation Location: [place] [address] Electronically authenticated by: [id number] Y Date: 06/18/2024 18:43 Dictated By: Cesar Butler M.D. Signed By: 06/18/241844 DD/ 42 TD/TT: Roofing Machine Operator: TSH Reviewed date:06/18/2024 08:05:41 PM Interpretation: Performing Lab: Notes/Report: [facility] , Thyroid Stimulating Hormone 2.198 0.358-3.740 u IU/mL Performing Lab: see note ML - [facility] LB T4 Reviewed date:06/18/2024 08:05:41 PM Interpretation: Performing Lab: Notes/Report: [facility] , T4 Thyroxine 10.40 4.80-13.90 ug/dL Performing Lab: see note ML - [facility] FREE T3 Reviewed date:06/18/2024 08:05:41 PM Interpretation: Performing Lab: Notes/Report: [facility] T3 2.68 2.18-3.98 pg/mL Performing Lab: see note ML - [facility] US renal bladder Reviewed date:06/02/2024 09:40:19 PM Interpretation: Performing Lab: Notes/Report: Source Facility: [place] [address] Ultrasound Report Signed Patient: KYLEIGH PORTER MR#: [id number] : 1960 Acct:[id number] Age/Sex: 63 / F ADM Date: 06/02/24 Loc: US Attending Dr: Vicky Arnett M.D. Ordering Physician: Vicky Arnett M.D. Date of Service: 06/02/24 Procedure(s): US renal bladder Accession Number(s): [id number] cc: Vicky Arnett M.D. [place] [address] Patient Name: KYLEIGH PORTER MRN: [id number] date: 1960 Sex: F Assigned Patient Location: Current Patient Location: US Accession/Order Number: [id number] Exam Date: 06/02/2024 15:53 Report Date: 06/02/2024 [...] Butler Jr., D.O.06/02/2024 4:40 PM Dictation Location: [place] [address] Electronically authenticated by: [id number] Y Date: 06/02/2024 16:40 Dictated By: Cesar Butler M.D. Signed By: 06/02/24 1642 DD/ 1640 TD/TT: Roofing Machine Operator: VITAMIN D 25 [place] Reviewed date:05/29/2024 08:07:43 PM Interpretation: Performing Lab: Notes/Report: [facility] , Vitamin D 58.5 <20 ng/mL Vit D deficient >100 ng/mL Potential Toxicity 20-<30 ng/mL Vit D insufficient 30-100 ng/mL Vit D sufficient Performing Lab: see note - [facility] LB INSULIN Reviewed date:06/01/2024 12:55:58 PM Interpretation: Performing Lab: Notes/Report: [facility] , Insulin 17.9 2.6-24.9 uIU/mL [address] [place] [id number] [employer]: Hemanth Winslow PhD, Phone: [phone] Performed at: - [facility] [place] Performing Lab: see note - [facility] LB CBC AUTO DIFF Reviewed date:05/29/2024 08:07:43 PM Interpretation: Performing Lab: Notes/Report: [facility] , White Blood Count 6.4 4.0-11.0 [...] Performing Lab: see note ML - [facility] LB XR foot LT min 3V Reviewed date:05/03/2024 04:42:39 PM Interpretation: Performing Lab: Notes/Report: Source Facility: [place] [address] [place] [address] XRay Report Signed Patient: KYLEIGH PORTER MR#: [id number] : 1960 Acct:[id number] Age/Sex: 63 / F ADM Date: 04/30/24 Loc: [facility] Attending Dr: Vicky Arnett M.D. Ordering Physician: Vicky Arnett M.D. Date of Service: 04/30/24 Procedure(s): XR foot LT min 3V Accession Number(s): [id number] cc: Vicky Arnett M.D. [place] [address] Patient Name: KYLEIGH PORTER MRN: [id number] date: 1960 Sex: F Assigned Patient Location: [facility] Current Patient Location: Accession/Order Number: [id number] Exam Date: 04/30/2024 17:04 Report Date: 05/02/2024 [...] M.D. Signed By: 05/02/24709 DD/ 6 TD/TT: Roofing Machine Operator: PROF Downs(COMP METB) Reviewed date:06/18/2024 08:05:41 PM Interpretation: Performing Lab: Notes/Report: [facility] , Sodium 141 136-145 mmol/L Potassium [...] Performing Lab: see note ML - [facility] LB CBC AUTO DIFF Reviewed date:06/18/2024 08:05:41 PM Interpretation: Performing Lab: Notes/Report: [facility] , White Blood Count 6.2 4.0-11.0 [...] Performing Lab: see note ML - [facility] LB CT abdomen pelvis wo con Reviewed date:12/25/2024 12:55:56 PM Interpretation: Performing Lab: Notes/Report: Source Facility: [facility] [place] [address] CT Scan Report Signed Patient: KYLEIGH PORTER MR#: [id number] : 1960 Acct:[id number] Age/Sex: 64 / F ADM Date: 12/25/24 Loc: LAB Attending Dr: Daryn CULVER Ordering Physician: Daryn Beck Date of Service: 12/25/24 Procedure(s): CT abdomen pelvis wo/w con Accession Number(s): [id number] cc: Vicky Arnett M.D. [place] [address] Patient Name: KYLEIGH PORTER MRN: [facility]:[id number] date: 1960 Sex: F Assigned Patient Location: LAB Current Patient Location: LAB Accession/Order Number: [id number] Exam Date: 12/25/2024 11:10 Report Date: 12/25/2024 12:30 At the request of: DARYN CULVER Procedure: CT abdomen pelvis wo/w con CT ABDOMEN AND PELVIS WITH AND WITHOUT INTRAVENOUS CONTRAST: CT UROGRAM CLINICAL HISTORY: Kidney stones N20.0 COMPARISON: None TECHNIQUE: Spiral images were obtained through the abdomen and pelvis were obtained before and after the administration of intravenous contrast. CT urogram protocol was utilized. This CT exam was performed using one or more following dose reduction techniques: Automated exposure control, adjustment of the mA and/or kV according to patient size, or use of iterative reconstruction technique. FINDINGS: Lung Bases: [Mild lung scarring.] Organs:Noncontrasted images demonstrate a punctate stone involving the left kidney. No hydronephrosis. Postcontrast imaging demonstrates the kidneys appear atrophic with cystic changes. No enhancing mass is seen. Asymmetrical prominence of the left renal pelvis likely related to UPJ stricture. Delayed images demonstrate no contrast within the left ureter. Right ureter appears grossly unremarkable. Urinary bladder is grossly unremarkable. Gallbladder has been removed. Liver spleen pancreas and adrenal glands appear unremarkable. Aorta appears normal in caliber. GI: Stomach is grossly unremarkable. Small bowel appears nondilated. No acute colonic abnormality.[ Pelvis:[Uterus is grossly unremarkable.] Peritoneum/Retroperitoneum:No free air or free fluid or lymphadenopathy.[ Abd wall/Bones:Abdominal wall demonstrate no acute findings. Osseous structures demonstrate degenerative change.[ CT/CT abdomen pelvis wo/w con IMPRESSION: Asymmetrical prominence of the left renal pelvis without contrast seen within the ureter on delayed imaging suspicious for UPJ stricture. Punctate left nephrolithiasis. Impression dictated by: Cesar Butler Jr., D.O. 12/25/2024 12:30 PM Dictation Location: [place] [address] Electronically authenticated by: [id number] Y Date: 12/25/2024 12:30 Dictated By: Cesar Butler M.D. Signed By: 12/25/24 1233 DD/ 1230 TD/TT: Roofing Machine Operator: renal BI Reviewed date:12/09/2024 02:37:24 PM Interpretation: Performing Lab: Notes/Report: Source Facility: [place] [address] Ultrasound Report Signed Patient: KYLEIGH PORTER MR#: [id number] : 1960 Acct:[id number] Age/Sex: 63 / F ADM Date: 12/09/24 Loc: US Attending Dr: Daryn CULVER Ordering Physician: Daryn Beck Date of Service: 12/09/24 Procedure(s): US renal BI Accession Number(s): [id number] cc: Vicky Arnett M.D.; Daryn Beck [place] [address] Patient Name: KYLEIGH PORTER MRN: [facility]:[id number] date: 1960 Sex: F Assigned Patient Location: US Current Patient Location: US Accession/Order Number: [id number] Exam Date: 12/09/2024 07:35 Report Date: 12/09/2024 11:08 At the request of: DARYN CULVER Procedure: US renal BI BILATERAL RENAL AND BLADDER ULTRASOUND CLINICAL HISTORY: Left Flank Pain, Kidney Stone COMPARISON: 06/02/2024 Estimation of renal size is approximately 10.9 cm on the right and 11.3 cm on the left. There are 2 echogenic foci with twinkle artifact suggesting stones at the superior pole on the left measuring 6 mm. A cyst is present at the lower pole of the right kidney measuring 18 x 16 x 14 mm. There is left pelviectasis and apparent thickening of the urothelium. There is no significant calyceal dilatation. There is no hydronephrosis on the right. There is also a cyst at the midpole on the left measuring 9 x 9 x 11 mm. There is no perinephric fluid. The urinary bladder is poorly distended with a volume of 12 ml. This limits evaluation. US/US renal BI IMPRESSION: SMALL BILATERAL RENAL CYSTS. LEFT NEPHROLITHIASIS. MILD LEFT PELVIECTASIS AND SUGGESTION OF ASSOCIATED UROTHELIAL THICKENING. Impression dictated by: Asmita Bellamy M.D. 12/09/2024 11:08 AM Dictation Location: [place] [address] Electronically authenticated by: [id number] Y Date: 12/09/2024 11:08 Dictated By: Asmita Bellamy M.D. Signed By: 12/09/24 1111 DD/ 1108 TD/TT: Roofing Machine Operator: Reason For Referral Reason right ear foreign latha dy Diagnosis 1 Ear foreign body, ri ght, initial encounter (T16.1XXA) Referral Organization [facility] Referring Provider First Name Valerie Referring Provider Last Name Nelida Referring Provider [facility] Referred Provider Asha Castillo Referred Provider Specialty Otolaryngolo gy Referral Priority Routine Diagnosis 1 Well adult (Z00.00) Referral Organization [facility] Referring Provider First Name José Antonio Referring Provider Last Name Melquiades Referring Provider [facility] Referred Provider Neel uW Referred Provider Specialty General Surg khadijah Referral Priority Routine Diagnosis 1 Foot pain (M79.673) Referral Organization [facility] Referring Provider First Name José Antonio Referring Provider Last Name Melquiades Referring Provider [facility] Referred Provider Jerry Cespedes Referred Provider Specialty Podiatry Referral Priority Routine Medications Medication SIG (Take, Route, Frequency, Duration) Notes Start Date End Date Status Levothyroxine Sodium 75 MCG 1 tablet in the morning on an empty stomach Orally Once a day; Duration: 90 days 05/30/2024 Active Pantoprazole Sodium 40 mg TAKE 1 TABLET DAILY Active Vraylar 1.5 MG 1 capsule Orally Onc e a day Active Simvastatin 10 mg TAKE 1 TABLET DAILY Active Auvelity 45-105 MG 1 tablet in the morn ing Orally Once a day Active traZODone HCl 100 MG 1 tablet at bedtime Orally at bedtime- 50mg at Dinner; Duration: 14 days Psych Active amLODIPine Besylate 10 mg TAKE 1 TABLET DAILY Active Trospium Chloride ER 60 MG Oral; Duration: 30 Days Active clonazePAM 0.5 MG 1 tablet Orally Once a day 01/28/2024 Active Vitamin D3 50 MCG (1999) 1 capsule Or ally Once a day Active Doxazosin Mesylate 2 mg TAKE 1 TABLET TW ICE A DAY Active Ferrous Sulfate 325 (65 Fe) MG 1 tablet Orally twice daily; Duration: 90 days 05/30/2024 Active hydrALAZINE HCl 25 mg TAKE 1 TABLET THRE E TIMES A DAY WITH FOOD; Duration: 90 days Active Cefdinir 300 MG 2 capsule Orally onc e a day; Duration: 10 days 12/03/2024 Active Meloxicam 15 MG 1 tablet Orally Once a day; Duration: 90 days 06/18/2024 Active Metoprolol Tartrate 100 mg TAKE 1 TABLET THREE TIMES A DAY WITH FOOD Active Immunizations Vaccine Route Administration Date Status Comme nts Flu, Flucelvax (11649) 6 mos and older, single-dose syringe ([phone]) IM Intramuscular 01/28/2024 Administered Social History Tobacco [...] Status W/U Status Risk Notes Problem Hypothyroidism (30782599) Hypothyroidism (E03.9) Active confirmed Problem Sinusitis (31368767) Sinusitis (J32.9) Active confirmed Problem Foot pain (26819216) Foot pain (M79.673) Active confirmed Problem Diarrhea (98754665) Diarrhea (R19.7) Active confirmed Problem Well adult (298423024) Well adult (Z00.00) Active confirmed Problem Acute bronchiolitis (3656580) Acute bronchiolitis (J21.9) Active confirmed Problem Right tibial fracture (S82.201A) Active confirmed Problem Acute urinary tract infection (662077249) Acute UTI (N39.0) Active confirmed Problem Stricture of ureter (88719434) UPJ stricture, 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) Active confirmed Vital Signs Temperature 97.6 degrees Fahrenheit 04/30/2024 Blood pressure diastolic 80 mm Hg 12/03/2024 Height 62 in 12/03/2024 Blood pressure systolic 146 mm Hg 12/03/2024 Weight 210.6 lbs 12/03/2024 BMI 38.52 kg/m2 12/03/2024 Encounters Encounter Location Date Provider Diagnosis [facility] [address] [place] [address] 04/16/2024 José Antonio Macedojosef [facility] [address] [place] [address] 05/03/2024 José Antonio Arnett [facility] [address] [place] [address] 05/29/2024 José Antonio Macedoy Iron deficiency E61. 1 ; Hypothyroidism E03.9 and Abnormal renal function N28.9 [facility] [address] [place] [address] 06/02/2024 José Antonio josef [facility] [address] [place] [place] [address] 06/02/2024 José Antonio Arnett [facility] [address] [place] [address] 06/18/2024 José Antonio Hoy Foot pain M79.673 [facility] [address] [place] [address] 06/29/2024 José Antonio Melquiades [facility] [address] [place] [address] 07/08/2024 José Antonio Melquiades [facility] [address] [place] [address] 07/11/2024 José Antonio Hoy Foot pain M79.673 [facility] [address] [place] [address] 08/18/2024 Valerie Krause [facility] [address] [place] [address] 12/03/2024 José Antonio josef [facility] [address] [place] [address] 12/03/2024 José Antonio Hoy Acute bronchiolitis J21.9 and Hypothyroid E03.9 [facility] [address] [place] [address] 12/04/2024 José Antonio Macedoy [address] [address] 12/09/2024 José Antonio Macedoy [address] [address] 12/25/2024 José Antonio Macedoy [address] [address] 05/01/2024 José Antonio Arnett [address] [address] 01/28/2024 Valerie Krause Encounter for immunization Z23 ; Ear foreign body, right, initial encounter T16.1XXA ; Skin cyst L72.9 and Skin lesion L98.[address] [address] 04/23/2024 José Antonio Macedoy Well adult Z00.[address] [address] 06/18/2024 José Antonio Remingtony Foot pain M79.673 an d Acute bronchiolitis J21.[address] [address] 07/08/2024 José Antonio Hoy Acute bronchiolitis J21.[address] [address] 08/18/2024 Valerie Krause Sinusitis J32.[address] [address] 12/03/2024 José Antonio Remingtony Acute UTI N39.0 and Hypothyroid E03.[address] [address] 04/30/2024 José Antonio Hoy Acute bronchiolitis J21.9 [...] M79.673) 07/11/2024 Foot pain (ICD-10 - M79.673) 12/03/2024 Acute bronchiolitis (ICD-10 - J21.9) 12/03/2024 Hypothyroid (ICD-10 - E03.9) 01/28/2024 Skin cyst (ICD-10 - L72.9) back fu derm 05/29/2024 Abnormal renal function (ICD-10 - N28.9) 01/28/2024 Skin lesion (ICD-10 - L98.9) left side mons pubis fu derm referral sheet given 01/28/2024 Other derm referral Plan Of Treatment Pending Test Test Name Order Date CMP (COMPLETE METABOLIC PANEL) 4 CMP (COMPLETE METABOLIC PANEL) 4 HEMOGLOBIN A1C [...] Date MMO [employer] [address] [place] [address] [id number] Kyleigh Porter Self - patient is the insured Medical (General) History Surgical History Surgery Date(Month/Year) RT Tibial Plateau FX Reconstruction from Urethra to Bladder Polynoidal Cyst CHOLECYSTECTOMY Hematoma removal- Right Labia Foreign body removed from Right ear krystyna l 02/12/2024 Colonoscopy- Dr Wu 07/02/2024 Hospitalization History Reason Date(Month/Year) UTI 12/2022
--- OUTSIDE RECORDS SUMMARY | 2025-01-05 10:58 | XMS_ITS | Encounter Summary ---
Author Organization [facility] Address [address] [facility] [place] [address] Care Team Providers Care Dobby Loom Fixer Name Role Phone Valerie Krause MD Unavailable [phone] Peter Arnett MD Primary Care Provider [phone] Encounter Details Date Type Department Care Team (Late st Contact Info) Description 08/13/2024 Orders Only [facility] [address] [place] [address] Hallie Escudero MA Lisfranc dislocation, left, initial encounter Social [...] wo IV contrast (08/13/2024 9:30 AM EDT) Gilmer Rivera DPM IMG CT PROCEDURES Final Res ult documented in this encounter Visit Diagnoses Diagnosis Lisfranc dislocation, left, initial encounter documented in this encounter Care Teams Dobby Loom Fixer Relationship Specialty Start Date End Date Peter Arnett MD [address] [place] [phone] PCP - General Family Medicine 02/05/24 Valerie Krause MD [address] [place] [id number] Referring Physician Family Medicine 01/29/24 documented as of this encounter
--- OUTSIDE RECORDS SUMMARY | 2025-01-05 10:58 | XMS_ITS | Encounter Summary ---
Author Organization [facility] Address [address] [place] [address] Care Team Providers Care Agency Sales Development Associate Name Role Phone Valerie Krause MD Unavailable [phone] Peter Arnett MD Primary Care Provider [phone] Encounter Details Date Type Department Care Team ([facility] Contact Info) Description 12/12/2024 Abstract [facility] [address] [facility] [address] [place] [id number] Gilmer Rivera, DPM [address] [facility] [address] [place] [address] Social History Tobacco Use Types Packs/Day Years [...] on filedocumented in this encounter Care Teams Agency Sales Development Associate Relationship Specialty [place] [address] [place] [phone] PCP - General Family Medicine 02/05/24 Valerie Krause MD [address] [place] [address] Referring Physician Family Medicine 01/29/24 documented as of this encounter
--- OUTSIDE RECORDS SUMMARY | 2025-01-05 10:58 | XMS_ITS | Clinical Summary ---
Author Organization [facility] Address [address] [place] [address], [address] [place] [address] Care Team Providers Care Corporate Tax Preparer Name Role Phone Peter Arnett MD Primary Care Provider [phone] Social History Tobacco Use Types Packs/Day Years [...] (2 of 2 - PCV) 01/29/2016 01/28/2015 Flu vaccine (#1) 10/31/2024 01/05/2022, 04/22/2019 COVID-19 Vaccine (4 - 2024-2 6 season) 2024 03/29/2021, 07/13/2020, 06/21/2020 Respiratory Syncytial Virus (RSV) or age 60 [...] this topic Insurance [employer] Care Teams Corporate Tax Preparer Relationship Specialty Start Date End Date Peter Arnett MD [address] [place] [phone] PCP - General Family Medicine 09/26/23
--- OUTSIDE RECORDS SUMMARY | 2025-01-05 10:58 | XMS_ITS | Clinical Summary ---
Author Organization [facility] Address [address] [place] [id number] Care Team Providers Care Any Commodity Sales Deliverer Name Role Phone Peter Arnett MD Primary Care Provider [phone] Allergies Active Allergy Reactions Criticality Noted Date [...] 2 - PCV) 01/29/2016 01/28/2015 COVID-19 Vaccine (2024-2 6 season) 2024 03/29/2021, 07/13/2020, 06/21/2020 Influenza Vaccine (#1) 2024 , 04/22/2019, 03/07/2017, Additional history exists Respiratory Syncytial Virus Immunization: Risk, 60-74 Risk, or 75+ (1 - 1-dose 75+ series) 2037 Insurance [employer] Care Teams Any Commodity Sales Deliverer Relationship Specialty Start Date End Date Peter Arnett MD [address] [facility] [address] [place] [phone] PCP - General Family Medicine 04/05/20
--- OUTSIDE RECORDS SUMMARY | 2025-01-05 11:01 | XMS_ITS | CCD ---
Author Organization [facility] Care Team Providers Care Beam Dyer Recessed Vat Name Role Phone Vicky Arnett Primary Care Provider DO Justin Francisco Emergency Provider MD Vicky Arnett Primary Care Provider [phone] MD Henry Burnett Admit Provider [phone] MD Henry Burnett Attending Provider MD Volod[facility] Other Provider [phone] VICKY ARNETT Admitting Unavailable SOHAIL, DR [...] Unavailable Vicky Arnett MD Primary Care Provider [phone] Nicolle Beck Attending Unavailable Ebony, Nicolle Attending Unavailable EbonyNicolle boo Admitting Unavailable Vicky Arnett Referring Unavailable NILLNeel Attending Unavailable NILL, Neel Singh Attending Unavailable Ebony, Nicolle Attending Unavailable ARIANA, GILMER A Attending Unavailable ARIANA, GILMER A Referring Unavailable ARIANA, GILMER A Attending Unavailable BROWN, GILMER A [...] Sulfonamides (Antibiotic) Drug Allergy 2 Rash, Swelling [facility] (17 sources) Sulfonamides (Antibiotic); Translations: [SULFA (SULFONAMIDE ANTIBIOTICS)] Propensity to adverse reactions to drug 2 Rash, Swelling [facility] (1 source) Sulfonamides (Antibiotic) Drug allergy (disorder) 3 [facility] (6 sources) Sulfonamides (Antibiotic); Translations: [sulfa drugs] Drug allergy Cutaneous eruption (morphologic abnormality) [facility] (20 sources) Sulfonamides (Antibiotic) [...] bedtime), # 45 tab(s), Refills(s) 1, Pharmacy: [facility], 158, cm, 12/15/19 14:46:00 EDT, [...] qAM, # 90 cap(s), Refills(s) 3, Pharmacy: [facility], 157, cm, 06/17/24 13:14:00 EDT, [...] qAM, # 90 cap(s), Refills(s) 3, Pharmacy: [facility], 158, cm, 11/27/23 15:03:00 EDT, Height/Length Dosing, 88, kg, 11/27/23 15:03:00 EDT, Weight Dosing Start Date: 11/27/23 Status: Ordered Start: 08-21-2023 take 1 capsule by [facility] once daily in the morning trospium 60 mg oral capsule, extended release 60 mg = 1 cap(s), Oral, qAM, # 30 cap(s), Refills(s) 11, Pharmacy: [id number], 158, cm, 08/21/23 10:13:00 EDT, Height/Length Dosing, 88.5, kg, 08/21/23 10:13:00 EDT, Weight Dosing Start Date: 08/21/23 Status: Ordered take 3 tablets by [facility] once daily trospium (Sanctura) 20 MG tablet Take 60 mg by mouth Daily Active divalproex sodium 500 mg delayed release oral tablet (4 sources) Mood Stabilizer, Anti-epileptic Agent Start: 01-03-2022 take 1 tablet by mouth once daily Start: 10-14-2021 take 1 tablet by [facility] once daily divalproex (DEPAKOTE ER) 500 [...] Locations R1: This test was performed at: [facility], [address] [place] [address], [phone]- , , [facility] Comment on above: Performed By: #### 2 [id number] #### [facility] [address] [place] [id number] Reminderson 12-04-2024 Reminders Reminders From: Lien Hill To: EU - Administrative; Sent: 12/02/2024 10:44:35 EDT Show up: 12/31/2024 10:44:00 EDT Subject: 3m F/U Due Date/Time: 03/02/2025 10:44:00 EST Reminder/Recall Patient needs a 3m f/u with PVR w/ LT, Due back early March 2025 Patient is having a RAMONA done at [facility] Pt is scheduled for 03/10/2025 Normal [facility] Urology Office/Clinic Noteon 12-02-2024 Urology Office/Clinic Note [...] discussed general stone prevention. -Obtain RAMONA at [facility], call w/ results -90oz of water daily, add lemon/point hope ira -Moderate animal protein, increase fruits and vegetables -KUB & RAMONA in 1 year (due October 2025) Ordered: Urnls Dip Stick Auto w/o Microscopy POC 18405 2. Mixed incontinence (N39.46: Mixed incontinence) UUI [...] of symptoms, or sooner if needed Ordered: 56448 Measure Post Void residual urine and/or bladder capacity by US- non-imaging Urnls Dip Stick Auto w/o Microscopy POC 97966 3. Left flank pain (R10.9: Unspecified abdominal [...] PVR Patient Education Urinary Incontinence Kidney Stones, [id number] Problem List/Past Medical History Ongoing Abnormal urinalysis [...] cap(s), Oral, (more content not included)... Normal [facility] Comment on above: Result Comment: Elec tronically Signed By: Ebony GUTIERREZ, Nicolle\.br\Date and Time Signed: 12/02/24 10:[address] foot LT wo francisco 09-30-19 CT foot LT wo con [facility] Main [place] [id number] CT Scan Report Signed Patient: Kyleigh Adame MR#: [id number] : 1960 Acct:[id number] Age/Sex: 63 / F ADM Date: 09/29/24 Loc: CT Room: Type: [facility] Attending Dr: Gilmer Rivera DPM Copies [...] Portillo M.D. 09/29/2024 10:53 PM Dictation Location: [place] [address] Transcribed By: [facility] 09/29/242252 Dictated By: Ethan Portillo DO 09/29/248 Signed By: 09/29/242252 Normal [facility] XR Foot - left 3 [facility] Result: Notable degenerative changes to left midfoot area with notable left old Lisfranc injury with slight diastasis of the Lisfranc joint and areas suspicion to left 3rd and 4th metatarsal base region with possible old fracture or new fractures with negative displacement [facility] observation (narrative) [facility] XR Foot - left 3 [facility] Result: Appears to be slight step-off and possible johnathan fracture to the 2nd metatarsal significant for possible Lisfranc injury with negative other fractures identified and degenerative changes noted to midfoot [facility] Radiology Study observation (narrative) [facility] Reminderson 07-03-2024 Reminders Reminders From: Debra Hernandez LPN To: N - Clinical; Sent: 07/03/2024 13:59:47 EDT Show up: 06/01/2034 07:00:00 EST Subject: colonoscopy recall Due Date/Time: 07/02/2034 07:00:00 EDT Reminder/Recall Patient due for screening colonoscopy 07/02/2034. Normal [facility] Auditory function testson Right Ear: Mild to moderate sensorineural hearing loss above 500 Hz Left Ear: Mild sensorineural hearing loss from 1K Hz - 3K Hz rising to normal hearing at 4K Hz. Mild sensorineural hearing loss above 4K Hz [facility] XR KNEE RIGHT (1-2 VIEWS)on 11-02-2023 [...] Birch Jr., MD 11/02/23 Final result Normal [facility] XR KNEE RIGHT (1-2 VIEWS)on 09-28-2023 [...] Birch Jr., MD 09/28/23 Final result Normal [facility] XR LSPINE MIN 4 VIEWSon 01-01 [...] DANII CARTER Date: 2022-01-20 07:20 Normal [facility] DEPAKENE/VALPROICon 01-20-20 22 DEPAKENE 79.2 ug/ml Normal 50.0-100.0 [facility] Comment on above: Performed By: #### V ALP #### [facility] [address] [place] [address] Dr. Julio Goddard Albumin [Mass/volume] in Ser um or PlasmaOrdered By: Henry Burnett on 01-05-2022 Albumin [Mass/Vol] 3.0 g/dL 3.2-5.5 [facility] Basophils Auto (Bld) [#/Vol] Ordered By: Henry Burnett on 01-05-2022 Basophils (Bld) [#/Vol] 0.0 10*3/uL 0.0-0.2 [facility] Basophils/100 WBC Auto (Bld) Ordered By: Henry Burnett on 01-05-2022 Basophils/100 WBC (Bld) 0.6 % . [facility] Blood hemoglobin measurement (mass/volume)Ordered By: Henry Burnett on 01-05-2022 Hemoglobin (Bld) [Mass/Vol] 12.8 g/dL 11.8-15.4 [facility] Blood leukocytes automated c ount (number/volume)Ordered By: Henry Lemonr on 01-05-2022 WBC (Bld) [#/Vol] 5.3 10*3/uL 4.5-11.0 [facility] Creatinine and Glomerular fi ltration rate.predicted panel (S/P/Bld)Ordered By: Henry Burnett on 01-05-2022 Creatinine [Mass/Vol] 1.14 mg/dL 0.44-1.03 [facility] Eosinophils Auto (Bld) [#/Vo l]Ordered By: Obdanny De Los Santosomar on 01-05-2022 Eosinophils (Bld) [#/Vol] 0.2 10*3/uL 0.0-0.45 [facility] Eosinophils/100 WBC Auto (Bl d)Ordered By: Henry Lemonr on 01-05-2022 Eosinophils/100 WBC (Bld) 3.5 % . [facility] Erythrocyte distribution wid th Auto (RBC) [Ratio]Ordered By: Henry Burnett on 01-05-2022 Erythrocyte distribution width (RBC) [Ratio] 16.2 % 11.9-15.3 [facility] Estimated glomerular filtrat ion rate (GFR) non- AmericanOrdered By: Henry Burnett on 01-05-2022 GFR/1.73 sq M.predicted among non-blacks MDRD (S/P/Bld) [Vol rate/Area] 49 mL/Min [facility] Globulin Calc (S) [Mass/Vol] Ordered By: Henry Burnett on 01-05-2022 Globulin (S) [Mass/Vol] 2.5 g/dL [facility] Hematocrit Auto (Bld) [Volum e fraction]Ordered By: Henry Burnett on 01-05-2022 Hematocrit (Bld) [Volume fraction] 38.6 % 34.0-46.4 [facility] - Hematology and Cell countsOrdered By: Henry Lemonr on 01-05-2022 Nucleated RBC/100 WBC (Bld) [Ratio] 0.1 % 0-0.5 [facility] Lymphocytes Auto (Bld) [#/Vo l]Ordered By: Henry De Los Santosomar on 01-05-2022 Lymphocytes (Bld) [#/Vol] 1.7 10*3/uL 1.00-4.8 [facility] Lymphocytes/100 WBC Auto (Bl d)Ordered By: Obsonjadanaga De Los Santosomar on 01-05-2022 Lymphocytes/100 WBC (Bld) 33.1 % . [facility] MCH Auto (RBC) [Entitic mass ]Ordered By: Obsonjadanaga De Los Santosomar on 01-05-2022 MCH (RBC) [Entitic mass] 30.2 pg 24.7-34.3 [facility] MCHC Auto (RBC) [Mass/Vol]Or dered By: Obsonjadah Filibertoomar on 01-05-2022 MCHC (RBC) [Mass/Vol] 33.3 g/dL 32.0-35.0 [facility] MCV Auto (RBC) [Entitic vol] Ordered By: Obsonjadanaga De Los Santosomar on 01-05-2022 MCV (RBC) [Entitic vol] 90.6 fL 80-100 [facility] Monocytes Auto (Bld) [#/Vol] Ordered By: Obsonjadanaga De Los Santosomar on 01-05-2022 Monocytes (Bld) [#/Vol] 0.7 10*3/uL 0.0-0.8 [facility] Monocytes/100 WBC Auto (Bld) Ordered By: Obsonjadanaga De Los Santosomar on 01-05-2022 Monocytes/100 WBC (Bld) 12.5 % . [facility] Neutrophils Auto (Bld) [#/Vo l]Ordered By: Obsonjadanaga De Los Santosomar on 01-05-2022 Neutrophils (Bld) [#/Vol] 2.6 10*3/uL 1.8-7.7 [facility] Neutrophils/100 WBC Auto (Bl d)Ordered By: Obsonjadanaga De Los Santosomar on 01-05-2022 Neutrophils/100 WBC (Bld) 50.3 % . [facility] No Panel InformationOrdered By: Henry Burnett on 01-05-2022 Estimated GFR () 59 mL/Min [facility] Comment on above: GFR estimated refere nce range: According to KDOQI guidelines, <60 ml/min/1.73m2 is sufficient to diagnose a patient with chronic kidney disease. Pharmacy Creatinine Clearance (Chem 51.99 [facility] Platelet mean volume Auto (B ld) [Entitic vol]Ordered By: Henry De Los Santosomar on 01-05-2022 Platelet mean volume (Bld) [Entitic vol] 8.9 fL 6.3-10.7 [facility] Platelets Auto (Bld) [#/Vol] Ordered By: Henry De Los Santosomar on 01-05-2022 Platelets (Bld) [#/Vol] 186 10*3/uL 150-450 [facility] Protein [Mass/volume] in Ser um or PlasmaOrdered By: Henry De Los Santosomar on 01-05-2022 Protein [Mass/Vol] 5.5 g/dL 6.1-7.9 [facility] RBC Auto (Bld) [#/Vol]Ordere d By: Henry De Los Santosomar on 01-05-2022 RBC (Bld) [#/Vol] 4.25 10*6/uL 3.60-5.00 [facility] Serum or plasma alanine angeles otransferase measurement without P-5'-P (enzymatic activiOrdered By: Henry Burnett on 01-05-2022 ALT No additional P-5'-P [Catalytic activity/Vol] 11 U/L 60 [facility] Serum or plasma albumin/glob ulin mass ratioOrdered By: Henry Burnett on 01-05-2022 Albumin/Globulin [Mass ratio] 1.2 {ratio} [facility] Serum or plasma alkaline flaquita sphatase measurement (enzymatic activity/volume)Ordered By: Henry Burnett on 01-05-2022 ALP [Catalytic activity/Vol] 33 U/L 32-92 [facility] Serum or plasma anion gap de terminationOrdered By: Henry Burnett on 01-05-2022 Anion gap [Moles/Vol] 11.6 mmol/L 6.0-15.0 [facility] Serum or plasma aspartate am inotransferase measurement (enzymatic activity/volume)Ordered By: Henry Burnett on 01-05-2022 AST [Catalytic activity/Vol] 13 U/L 1042 [facility] Serum or plasma calcium sarah urement (mass/volume)Ordered By: Henry Burnett on 01-05-2022 Calcium [Mass/Vol] 9.1 mg/dL 8.2-10.2 [facility] Serum or plasma chloride deep surement (moles/volume)Ordered By: Henry Burnett on 01-05-2022 Chloride [Moles/Vol] 105 mmol/L 95-114 [facility] Serum or plasma glucose sarah urement (mass/volume)Ordered By: Henry Burnett on 01-05-2022 Glucose [Mass/Vol] 96 mg/dL 70-100 [facility] Comment on above: ADA recommended refe rence rangeRandom Glucose Reference Range is dependent on time and content of last meal. Glucose of more than 200 mg/dL in a nonstressed, ambulatory subject supports the diagnosis of Diabetes Mellitus. Serum or plasma potassium me asurement (moles/volume)Ordered By: Henry Burnett on 01-05-2022 Potassium [Moles/Vol] 3.8 mmol/L 3.5-5.1 [facility] Serum or plasma sodium measu rement (moles/volume)Ordered By: Henry Burnett on 01-05-2022 Sodium [Moles/Vol] 138 mmol/L 136-146 [facility] Serum or plasma total biliru bin measurement (mass/volume)Ordered By: Henry Burnett on 01-05-2022 Bilirubin [Mass/Vol] 0.4 mg/dL 0.3-1.2 [facility] Serum or plasma total carbon dioxide measurement (moles/volume)Ordered By: Henry Burnett on 01-05-2022 CO2 [Moles/Vol] 25.2 mmol/L 22.0-30.0 [facility] Serum or plasma urea nitroge n measurement (mass/volume)Ordered By: Henry Burnett on 01-05-2022 Urea nitrogen [Mass/Vol] 11 mg/dL 9-23 [facility] Urine culture routineOrdered By: Justin Francisco on 01-05-2022 Bacteria identified Cx Nom (U) Escherichia coli [facility] Cholesterol [Mass/volume] in Serum or PlasmaOrdered By: Henry Burnett on 01-04-2022 Cholesterol [Mass/Vol] 145 mg/dL 140-200 [facility] Comment on above: Chol less than 200 m g/dl low riskChol 201-239 mg/dl borderline riskChol 240 mg/dl and greater high risk Cholesterol in LDL Calc [Mas s/Vol]Ordered By: Henry Burnett on 01-04-2022 Cholesterol in LDL [Mass/Vol] 78 mg/dL 0-100 [facility] Comment on above: LDL ATP III CLASSIFI CATIONLDL less than 100 mg/dL OptimalLDL 100-129 mg/dL Near or above optimalLDL 130-159 mg/dL Borderline highLDL 160-189 mg/dL HighLDL greater than 189 mg/dL Very high Cholesterol in VLDL Calc [Ma ss/Vol]Ordered By: Henry Burnett on 01-04-2022 Cholesterol in VLDL [Mass/Vol] 12 mg/dL [facility] - Chemistry and C hemistry - challengeOrdered By: Henry Burnett on 01-04-2022 Magnesium [Mass/Vol] 1.6 mg/dL 1.6-2.6 [facility] No Panel InformationOrdered By: Graham Helm on 01-04-2022 Valproic Acid (Depakene) Level 28.2 ug/mL 50.0-100.0 [facility] Comment on above: Last dose: - Phosphate [Mass/volume] in S yeyo or PlasmaOrdered By: Henry Burnett on 01-04-2022 Phosphate [Mass/Vol] 3.5 mg/dL 2.5-4.6 [facility] Serum or plasma high density lipoprotein (HDL) cholesterol measurementOrdered By: Henry Burnett on 01-04-2022 Cholesterol in HDL [Mass/Vol] 55 mg/dL 35-85 [facility] Comment on above: HDL CHOL ATP-III CLA SSIFICATION Cardiovascular RiskHDL > or equal to 60 mg/dL LOWHDL < 40 mg/dL HIGH Serum or plasma total choles terol/high density lipoprotein (HDL) cholesterol mass ratOrdered By: Henry Burnett on 01-04-2022 Cholesterol.total/Tila sterol in HDL [Mass ratio] 2.6 {ratio} <5.0 [facility] Triglyceride [Mass/volume] i n Serum or PlasmaOrdered By: Henry Burnett on 01-04-2022 Triglyceride [Mass/Vol] 60 mg/dL 35-149 [facility] Comment on above: TRIG ATP III CLASSIF ICATIONTRIG less than 150 mg/dL NormalTRIG 150-199 mg/dL Borderline highTRIG 200-500 mg/dL High TRIG greater than 500 mg/dL Very highStandard traceable to the Center for Disease Conrtrol and Prevention (CDC) test method. Albumin [Mass/volume] in Ser um or PlasmaOrdered By: Justin Francisco on 01-03-2022 Albumin [Mass/Vol] 3.6 g/dL 3.2-5.5 [facility] Amphetamine Screen Ql (U)Ord ered By: Justin Francisco on 01-03-2022 Amphetamines Ql (U) Negative Negative [facility] Automated erythrocytes count in urine sediment (number/area)Ordered By: Justin Francisco on 01-03-2022 RBC Auto (Urine sed) [#/Area] None seen [HPF] 0-4 [facility] Automated leukocytes count i n urine sediment (number/area)Ordered By: Justin Francisco on 01-03-2022 WBC Auto (Urine sed) [#/Area] 5-9 [HPF] 0-4 [facility] Barbiturates [Presence] in U rineOrdered By: Justin Francisco on 01-03-2022 Barbiturates Ql (U) Negative Negative [facility] Basophils Auto (Bld) [#/Vol] Ordered By: Justin Francisco on 01-03-2022 Basophils (Bld) [#/Vol] 0.0 10*3/uL 0.0-0.2 [facility] Basophils/100 WBC Auto (Bld) Ordered By: Justin Francisco on 01-03-2022 Basophils/100 WBC (Bld) 0.6 % . [facility] Benzodiazepines [Presence] i n UrineOrdered By: Justin Francisco on 01-03-2022 Benzodiazepines Ql (U) Negative Negative Fi [facility] Bilirubin Test strip Ql (U)O rdered By: Justin Francisco on 01-03-2022 Bilirubin Ql (U) Negative Negative [facility] Blood hemoglobin measurement (mass/volume)Ordered By: Justin Francisco on 01-03-2022 Hemoglobin (Bld) [Mass/Vol] 13.4 g/dL 11.8-15.4 [facility] Blood leukocytes automated c ount (number/volume)Ordered By: Justin Francisco on 01-03-2022 WBC (Bld) [#/Vol] 6.4 10*3/uL 4.5-11.0 [facility] COVID-19 Positive/NegativeOr dered By: Justin Francisco on 01-03-2022 SARS-CoV-2 (COVID-19) N gene ARMINDA+probe Ql (Resp) Negative Negative [facility] Comment on above: Testing for SARS-CoV -2 by RT-PCRThis test was developed and its performance characteristics determined by [employer] and validated at the [facility]. This test has not been FDA [...] (COVID-19) Ag IA.rapid Ql (Resp) Negative Negative [facility] Comment on above: This is a duplicate Delores SARS Antigen (MARLINE) result to be used for statistical tracking purpose only. Cannabinoids [Presence] in U rine by Screen methodOrdered By: Justin Francisco on 01-03-2022 Cannabinoids Screen Ql (U) Negative Negative [facility] Comment on above: These are unconfirme d results and should not be used for legal purposes. Drug Cut-Off Concentration: AMPH 1000 ng/mL TERRY 200 ng/mL HONG 200 ng/mL COCM 300 ng/mL OP 300 ng/mL PCP 25 ng/mL THC 20 ng/mL Color Auto (U)Ordered By: Aman Francisoc on 01-03-2022 Color (U) Yellow Yellow [facility] Creatinine and Glomerular fi ltration rate.predicted panel (S/P/Bld)Ordered By: Justin Francisco on 01-03-2022 Creatinine [Mass/Vol] 1.38 mg/dL 0.44-1.03 [facility] Eosinophils Auto (Bld) [#/Vo l]Ordered By: Justin Francisco on 01-03-2022 Eosinophils (Bld) [#/Vol] 0.1 10*3/uL 0.0-0.45 [facility] Eosinophils/100 WBC Auto (Bl d)Ordered By: Justin Francisco on 01-03-2022 Eosinophils/100 WBC (Bld) 1.4 % . [facility] Erythrocyte distribution wid th Auto (RBC) [Ratio]Ordered By: Justin Francisco on 01-03-2022 Erythrocyte distribution width (RBC) [Ratio] 15.7 % 11.9-15.3 [facility] Estimated glomerular filtrat ion rate (GFR) non- AmericanOrdered By: Justin Francisco on 01-03-2022 GFR/1.73 sq M.predicted among non-blacks MDRD (S/P/Bld) [Vol rate/Area] 39 mL/Min [facility] Globulin Calc (S) [Mass/Vol] Ordered By: Justin Francisco on 01-03-2022 Globulin (S) [Mass/Vol] 3.1 g/dL [facility] Hematocrit Auto (Bld) [Volum e fraction]Ordered By: Justin Francisco on 01-03-2022 Hematocrit (Bld) [Volume fraction] 41.0 % 34.0-46.4 [facility] Ketones Auto test strip (U) [Mass/Vol]Ordered By: Justin Francisco on 01-03-2022 Ketones (U) [Mass/Vol] Negative Negative Fi [facility] - Drug toxicology Ordered By: Justin Francisco on 01-03-2022 Opiates Ql (U) Negative Negative [facility] - Hematology and Cell countsOrdered By: Justin Francisco on 01-03-2022 Nucleated RBC/100 WBC (Bld) [Ratio] 0.1 % 0-0.5 [facility] - UrinalysisOrder ed By: Justin Francisco on 01-03-2022 Hyaline casts LM Ql (Urine sed) 0-8 [LPF] 0-8 [facility] Lymphocytes Auto (Bld) [#/Vo l]Ordered By: Justin Francisco on 01-03-2022 Lymphocytes (Bld) [#/Vol] 1.4 10*3/uL 1.00-4.8 [facility] Lymphocytes/100 WBC Auto (Bl d)Ordered By: Justin Francisco on 01-03-2022 Lymphocytes/100 WBC (Bld) 22.3 % . [facility] MCH Auto (RBC) [Entitic mass ]Ordered By: Justin Francisco on 01-03-2022 MCH (RBC) [Entitic mass] 29.7 pg 24.7-34.3 [facility] MCHC Auto (RBC) [Mass/Vol]Or dered By: Justin Francisco on 01-03-2022 MCHC (RBC) [Mass/Vol] 32.6 g/dL 32.0-35.0 [facility] MCV Auto (RBC) [Entitic vol] Ordered By: Justin Francisco on 01-03-2022 MCV (RBC) [Entitic vol] 91.0 fL 80-100 [facility] Monocytes Auto (Bld) [#/Vol] Ordered By: Justin Francisco on 01-03-2022 Monocytes (Bld) [#/Vol] 0.6 10*3/uL 0.0-0.8 [facility] Monocytes/100 WBC Auto (Bld) Ordered By: Justin Francisco on 01-03-2022 Monocytes/100 WBC (Bld) 8.9 % . [facility] Neutrophils Auto (Bld) [#/Vo l]Ordered By: Justin Francisco on 01-03-2022 Neutrophils (Bld) [#/Vol] 4.3 10*3/uL 1.8-7.7 [facility] Neutrophils/100 WBC Auto (Bl d)Ordered By: Justin Francisco on 01-03-2022 Neutrophils/100 WBC (Bld) 66.8 % . [facility] Nitrite Test strip Ql (U)Ord ered By: Justin Francisco on 01-03-2022 Nitrite Ql (U) Negative Negative [facility] No Panel InformationOrdered By: Justin Francisco on 01-03-2022 Estimated GFR () 47 mL/Min [facility] Comment on above: GFR estimated refere nce range: According to KDOQI guidelines, <60 ml/min/1.73m2 is sufficient to diagnose a patient with chronic kidney disease. Pharmacy Creatinine Clearance (Chem 43.00 [facility] Valproic Acid (Depakene) Level 59.0 ug/mL 50.0-100.0 [facility] Comment on above: Last dose: - SARS Antigen (LFIA) [facility] Phencyclidine Screen Ql (U)O rdered By: Justin Francisco on 01-03-2022 Phencyclidine Ql (U) Negative Negative [facility] Platelet mean volume Auto (B ld) [Entitic vol]Ordered By: Justin Francisco on 01-03-2022 Platelet mean volume (Bld) [Entitic vol] 8.8 fL 6.3-10.7 [facility] Platelets Auto (Bld) [#/Vol] Ordered By: Justin Francisco on 01-03-2022 Platelets (Bld) [#/Vol] 236 10*3/uL 150-450 [facility] Protein Auto test strip (U) [Mass/Vol]Ordered By: Justin Francisco on 01-03-2022 Protein (U) [Mass/Vol] Negative Negative [facility] Protein [Mass/volume] in Ser um or PlasmaOrdered By: Justin Francisco on 01-03-2022 Protein [Mass/Vol] 6.7 g/dL 6.1-7.9 [facility] RBC Auto (Bld) [#/Vol]Ordere d By: Justin Francisco on 01-03-2022 RBC (Bld) [#/Vol] 4.50 10*6/uL 3.60-5.00 [facility] Salicylates [Mass/volume] in Serum or PlasmaOrdered By: Justin Francisco on 01-03-2022 Salicylates [Mass/Vol] mg/dL 15.0-30.0 [facility] Comment on above: Patients treated wit h Sulfasalazine may generate a false high result for Salicylate.Patients treated with Sulfapyridine may generate a false low result for Salicylate. Serum or plasma acetaminophe n measurement (mass/volume)Ordered By: Justin Francisco on 01-03-2022 Acetaminophen [Mass/Vol] 25.3 ug/mL 10.0-30.0 [facility] Serum or plasma alanine angeles otransferase measurement without P-5'-P (enzymatic activiOrdered By: Justin Francisco on 01-03-2022 ALT No additional P-5'-P [Catalytic activity/Vol] 14 U/L [facility] Serum or plasma albumin/glob ulin mass ratioOrdered By: Justin Francisco on 01-03-2022 Albumin/Globulin [Mass ratio] 1.2 {ratio} [facility] Serum or plasma alkaline flaquita sphatase measurement (enzymatic activity/volume)Ordered By: Justin Francisco on 01-03-2022 ALP [Catalytic activity/Vol] 40 U/L 32-92 [facility] Serum or plasma anion gap de terminationOrdered By: Justin Francisco on 01-03-2022 Anion gap [Moles/Vol] 16.7 mmol/L 6.0-15.0 [facility] Serum or plasma aspartate am inotransferase measurement (enzymatic activity/volume)Ordered By: Justin Francisco on 01-03-2022 AST [Catalytic activity/Vol] 18 U/L 1042 [facility] Serum or plasma calcium sarah urement (mass/volume)Ordered By: Justin Francisco on 01-03-2022 Calcium [Mass/Vol] 9.5 mg/dL 8.2-10.2 [facility] Serum or plasma chloride deep surement (moles/volume)Ordered By: Justin Francisco on 01-03-2022 Chloride [Moles/Vol] 99 mmol/L 95-114 [facility] Serum or plasma ethanol sarah urement (mass/volume)Ordered By: Justin Francisco on 01-03-2022 Ethanol [Mass/Vol] mg/dL [facility] Ethanol [Mass/Vol] TNP [facility] Comment on above: Test not performed Serum or plasma glucose sarah urement (mass/volume)Ordered By: Justin Francisco on 01-03-2022 Glucose [Mass/Vol] 137 mg/dL 70-100 [facility] Comment on above: ADA recommended refe rence rangeRandom Glucose Reference Range is dependent on time and content of last meal. Glucose of more than 200 mg/dL in a nonstressed, ambulatory subject supports the diagnosis of Diabetes Mellitus. Serum or plasma potassium me asurement (moles/volume)Ordered By: Justin Francisco on 01-03-2022 Potassium [Moles/Vol] 4.3 mmol/L 3.5-5.1 [facility] Serum or plasma sodium measu rement (moles/volume)Ordered By: Justin Francisco on 01-03-2022 Sodium [Moles/Vol] 135 mmol/L 136-146 [facility] Serum or plasma total biliru bin measurement (mass/volume)Ordered By: Justin Francisco on 01-03-2022 Bilirubin [Mass/Vol] 0.6 mg/dL 0.3-1.2 [facility] Serum or plasma total carbon dioxide measurement (moles/volume)Ordered By: Justin Francisco on 01-03-2022 CO2 [Moles/Vol] 23.6 mmol/L 22.0-30.0 [facility] Serum or plasma urea nitroge n measurement (mass/volume)Ordered By: Justin Francisco on 01-03-2022 Urea nitrogen [Mass/Vol] 14 mg/dL 9-23 [facility] Specific gravity Auto test s trip (U) [Rel density]Ordered By: Justin Francisco on 01-03-2022 Specific gravity (U) [Rel density] 1.012 1.001-1.030 [facility] Squamous epithelial cells de tection in urine sediment by light microscopyOrdered By: Justin Francisco on 01-03-2022 Epithelial cells.squamous LM Ql (Urine sed) 3-4 [HPF] 0-2 [facility] TSH DL <= 0.005 mIU/L QnOrde red By: Justin Francisco on 01-03-2022 TSH Qn 4.71 m[IU]/L 0.45-5.33 [facility] Thyroxine (T4) free [Mass/vo lume] in Serum or PlasmaOrdered By: Justin Francisco on 01-03-2022 Free T4 [Mass/Vol] 1.10 ng/dL 0.61-1.12 [facility] Urine bacteria detection by automated methodOrdered By: Justin Francisco on 01-03-2022 Bacteria Auto Ql (U) 2+ None Seen [facility] Urine clarity by refractomet ry automatedOrdered By: Justin Francisco on 01-03-2022 Clarity Refractometry automated (U) Clear Clear [facility] Urine cocaine detectionOrder ed By: Justin Francisco on 01-03-2022 Cocaine Ql (U) Negative Negative [facility] Urine glucose measurement by automated test strip (mass/volume)Ordered By: Justin Francisco on 01-03-2022 Glucose Auto test strip (U) [Mass/Vol] Normal mg/dL Normal [facility] Urine hemoglobin detection b y automated test stripOrdered By: Justin Francisco on 01-03-2022 Hemoglobin Auto test strip Ql (U) Negative Negative [facility] Urine leukocyte esterase det ection by automated test stripOrdered By: Justin Francisco on 01-03-2022 Leukocyte esterase Auto test strip Ql (U) 2+ Negative [facility] Urobilinogen Auto test strip (U) [Mass/Vol]Ordered By: Justin Francisco on 01-03-2022 Urobilinogen (U) [Mass/Vol] Normal mg/dL Normal [facility] Yeast detection in urine sed iment by light microscopyOrdered By: Justin Francisco on 01-03-2022 Yeast LM Ql (Urine sed) None seen [HPF] None Se en [facility] pH Auto test strip (U)Ordere d By: Justin Francisco on 01-03-2022 pH (U) 5.5 [pH] 5.0-9.0 [facility] CBC AUTO DIFFon 10-27-2021 BASO # 0.1 103/ul Normal 0.0-0.1 [facility] Comment on above: Performed By: #### C BC ####[facility] [address] [place] [address]Dr. Julio Goddard Basophils/100 WBC (Bld) 0.6 % Normal 0.2-2.0 [facility] Comment on above: Performed By: #### C BC ####[facility] [address] [place], [place] [address]Dr. Julio Goddard EO # 0.2 103/ul Normal 0.0-0.7 [facility] Comment on above: Performed By: #### C BC ####[facility] [address] [place], [place] [address]Dr. Julio Goddard Eosinophils/100 WBC (Bld) 2.4 % Normal 0.9-7.0 [facility] Comment on above: Performed By: #### C BC ####[facility] [address] [place], [place] [address]Dr. Julio Goddard Erythrocyte distribution width (RBC) [Ratio] 15.0 % Normal 11.0-15.0 [facility] Comment on above: Performed By: #### C BC ####[facility] [address] [place], [place] [address]Dr. Julio Goddard Hematocrit (Bld) [Volume fraction] 37.4 % Normal 36.0-48.0 [facility] Comment on above: Performed By: #### C BC ####[facility] [address] [place], [place] [address]Dr. Julio Goddard Hemoglobin (Bld) [Mass/Vol] 12.2 g/dL Normal 12.0-16.0 [facility] Comment on above: Performed By: #### C BC ####[facility] [address] [place] [id number]. Julio Goddard IG # 0.04 10e3/ul Critically high 0.00-0.03 [facility] Comment on above: Performed By: #### C BC ####[facility] [address] [place] [id number]. Julio Rupesh IG % 0.4 % Normal 0.0-0.5 [facility] Comment on above: Performed By: #### C BC ####[facility] [address] [place] [address]Dr. Julio Rupesh LYMPH # 2.3 103/ul Normal 1.2-3.8 [facility] Comment on above: Performed By: #### C BC ####[facility] [address] [place] [address]Dr. Julio Goddard Lymphocytes/100 WBC (Bld) 23.6 % Normal 20.5-60.0 [facility] Comment on above: Performed By: #### C BC ####[facility] [address] [place] [address]Dr. Hiralharesh Goddard MANUAL DIFF REQ NO Normal [facility] Comment on above: Performed By: #### C BC ####[facility] [address] [place] [address]Dr. Julio Rupesh MCH (RBC) [Entitic mass] 29.3 pg Normal 26.7-34.0 [facility] Comment on above: Performed By: #### C BC ####[facility] [address] [place] [address]Dr. Julio Rupesh MCHC (RBC) [Mass/Vol] 32.6 g/dL Normal 29.9-35.2 [facility] Comment on above: Performed By: #### C BC ####[facility] [address] [place] [address]Dr. Julio Rupesh MCV (RBC) [Entitic vol] 89.7 fL Normal 81.0-99.0 [facility] Comment on above: Performed By: #### C BC ####[facility] [address] [place] [id number]. Julio Goddard MONO # 0.6 103/ul Normal 0.3-0.8 [facility] Comment on above: Performed By: #### C BC ####[facility] [address] [place] [id number]. Julio Goddard Monocytes/100 WBC (Bld) 5.5 % Normal 1.7-12.0 [facility] Comment on above: Performed By: #### C BC ####[facility] [address] [place] [phone]. Julio Goddard NEUT # 6.7 103/ul Critically high 1.4-6.5 [facility] Comment on above: Performed By: #### C BC ####[facility] [address] [place] [phone]. Julio Goddard Neutrophils/100 WBC (Bld) 67.5 % Normal 43.0-75.0 [facility] Comment on above: Performed By: #### C BC ####[facility] [address] [place] [id number]. Julio Goddard Platelet mean volume (Bld) [Entitic vol] 10.2 fL Normal 9.5-13.5 [facility] Comment on above: Performed By: #### C BC ####[facility] [address] [place] [id number]. Julio Goddard PLT 296 103/ul Normal 150-450 [facility] Comment on above: Performed By: #### C BC ####[facility] [address] [place] [phone]. Julio Goddard RBC 4.17 106/ul Critically low 4.20-5.40 [facility] Comment on above: Performed By: #### C BC ####[facility] [address] [place] [phone]. Julio Goddard WBC 9.9 103/ul Normal 4.0-11.0 [facility] Comment on above: Performed By: #### C BC ####[facility] [address] [place] [address]Dr. Julio Goddard LIPID PROFILEon 10-27-2021 CHOL-HDL RATIO NORM SEE BELOW Normal [facility] Comment on above: Result Comment: 3.3 - 4.4 LOW RISK 4.4 - 7.1 AVERAGE RISK 7.1 - 11.0 MODERATE RISK >11.0 HIGH RISK Performed By: #### C MP, LIPID ####[facility] [address] [place], [place] [address]Eb. Julio Goddard Cholesterol [Mass/Vol] 148 mg/dL Normal <=[address] [facility] Comment on above: Performed By: #### C MP, LIPID ####[facility] [address] [place], [place] [address]Vr. Julio Goddard Cholesterol in HDL [Mass/Vol] 60 mg/dL Normal 40-60 [facility] Comment on above: Performed By: #### C MP, LIPID ####[facility] [address] [place], [place] [address]Bb. Julio Goddard Cholesterol in LDL [Mass/Vol] 72.2 mg/dL Normal [facility] Comment on above: Performed By: #### C MP, LIPID ####[facility] [address] [place], [place] [address]Km. Julio Goddard Cholesterol.total/Tila sterol in HDL [Mass ratio] 2.5 {ratio} Normal [facility] Comment on above: Performed By: #### C MP, LIPID ####[facility] [address] [place], [place] [address]Di. Julio Goddard HDL NORMAL > or = 60 mg/dl - LO W CARDIOVASCULAR RISK <40 mg/dl - HIGH CARDIOVASCULAR RISK Normal [facility] Comment on above: Performed By: #### C MP, LIPID ####[facility] [address] [place], [place] [address]Zw. Julio Goddard LDL CALC NORMAL SEE BELOW Normal [facility] Comment on above: Result Comment: <100 mg/dl OPTIMAL 100 - 129 mg/dl NEAR OR ABOVE OPTIMAL 130 - 159 mg/dl BORDERLINE HIGH 160 - 189 mg/dl HIGH >190 mg/dl VERY HIGH Performed By: #### C MP, LIPID ####[facility] [address] [place], [place] [address]QhDr. Julio Goddard Triglyceride [Mass/Vol] 79 mg/dL Normal <=150 T [facility] Comment on above: Performed By: #### C MP, LIPID ####[facility] [address] [place], [place] [address]Dr. Julio Goddard VLDL CALC 15.8 mg/dL Normal [facility] Comment on above: Performed By: #### C MP, LIPID ####[facility] [address] [place], [place] [address]AoMarky Goddard PROF 14(COMP METB)on 022 Albumin [Mass/Vol] 3.7 g/dL Normal 3.4-5.0 [facility] Comment on above: Performed By: #### C MP, LIPID #### [facility] [address] [place] [address] [address] Julio Goddard Albumin/Globulin [Mass ratio] 1.0 {ratio} Normal [facility] Comment on above: Performed By: #### C MP, LIPID #### [facility] [address] [place] [address] [address] Julio Goddard ALP [Catalytic activity/Vol] 53 U/L Normal 46-116 [facility] Comment on above: Performed By: #### C MP, LIPID #### [facility] [address] [place] [address] [address] Julio Goddard ALT [Catalytic activity/Vol] 15 U/L Normal 14-59 [facility] Comment on above: Performed By: #### C MP, LIPID #### [facility] [address] [place] [address] [address] Julio Goddard Anion gap [Moles/Vol] 16.1 mmol/L Normal [facility] Comment on above: Performed By: #### C MP, LIPID #### [facility] [address] [place] [address] [address] Julio Goddard AST [Catalytic activity/Vol] 8 U/L Critically low 15-37 [facility] Comment on above: Performed By: #### C MP, LIPID #### [facility] [address] [place] [address] [address] Julio Goddard Bilirubin [Mass/Vol] 0.5 mg/dL Normal 0.2-1.0 [facility] Comment on above: Performed By: #### C MP, LIPID #### [facility] [address] [place] [address] [address] Julio Goddard Calcium [Mass/Vol] 9.1 mg/dL Normal 8.5-10.1 [facility] Comment on above: Performed By: #### C MP, LIPID #### [facility] [address] [place] [address] [address] Julio Goddard Chloride [Moles/Vol] 106 mmol/L Normal 98-107 [facility] Comment on above: Performed By: #### C MP, LIPID #### [facility] [address] [place] [address] Dr. Julio Goddard CO2 [Moles/Vol] 24.1 mmol/L Normal 21.0-32.0 [facility] Comment on above: Performed By: #### C MP, LIPID #### [facility] [address] [place] [address] Dr. Julio Goddard Creatinine [Mass/Vol] 1.40 mg/dL Critically high 0.55-1.02 [facility] Comment on above: Performed By: #### C MP, LIPID #### [facility] [address] [place] [address] Dr. Julio Goddard EGFR-AF MARTINIQUAIS 47 mL/min/1.73m2 Critically low >=60 [facility] Comment on above: Performed By: #### C MP, LIPID #### [facility] [address] [place] [address] Dr. Julio Goddard EGFR-NON AF MARTINIQUAIS 39 mL/min/1.73m2 Critically low >=60 [facility] Comment on above: Performed By: #### C MP, LIPID #### [facility] [address] [place] [address] Dr. Julio Goddard Globulin (S) [Mass/Vol] 3.6 g/dL Normal T [facility] Comment on above: Performed By: #### C MP, LIPID #### [facility] [address] [place] [address] [address] Julio Goddard Glucose [Mass/Vol] 95 mg/dL Normal 74-106 [facility] Comment on above: Performed By: #### C MP, LIPID #### [facility] [address] [place] [address] [address] Julio Goddard Potassium [Moles/Vol] 4.2 mmol/L Normal 3.5-5.1 [facility] Comment on above: Performed By: #### C MP, LIPID #### [facility] [address] [place] [address] [address] Julio Goddard Protein [Mass/Vol] 7.3 g/dL Normal 6.4-8.2 [facility] Comment on above: Performed By: #### C MP, LIPID #### [facility] [address] [place] [address] Dr. Julio Goddard Sodium [Moles/Vol] 142 mmol/L Normal 136-145 [facility] Comment on above: Performed By: #### C MP, LIPID #### [facility] [address] [place] [address] [address] Julio Goddard Urea nitrogen [Mass/Vol] 18.0 mg/dL Normal 7.0-18.0 [facility] Comment on above: Performed By: #### C MP, LIPID #### [facility] [address] [place] [address] [address] Julio Goddard Urea nitrogen/Creatinine [Mass ratio] 12.9 mg/mg Normal [facility] Comment on above: Performed By: #### C MP, LIPID #### [facility] [address] [place] [address] [address] Julio Goddard INSULINon 03-23-2021 Insulin 10.0 uIU/mL Normal 2.6-24.9 [facility] Comment on above: Performed By: #### I NSULIN #### [facility] [address] [place] [address] [address] Julio Goddard VIT D 25-OH LABCORPon 2020 Vitamin D, 25-Hydroxy 11.8 ng/mL Critically low 30.0-100.0 [facility] Comment on above: Result Comment: Swati min D deficiency has been defined by the [place] of [employer] and an Endocrine Society practice guideline as a level of serum 25-OH vitamin D less than 20 ng/mL (1,2). The Endocrine Society went on to further define vitamin D insufficiency as a level between 21 and 29 ng/mL (2). 1. IOM ([place] [employer]). 2010. Dietary reference intakes for calcium and D. Gerardo [place]: The National Academies Press. 2. Matt MF, Wilma IRVIN, Shiraz ELIZONDO, et al. Evaluation, treatment, and prevention of vitamin D deficiency: an Endocrine Society clinical practice guideline. JCEM. 2010; 96(7):1911-30. Performed By: #### V ITADLC ####[facility] [address] [place], [place] [address]PtDr. Juloi Goddard CBC AUTO DIFFon 03-22-2021 BASO # 0.1 103/ul Normal 0.0-0.1 [facility] Comment on above: Performed By: #### C BC #### [facility] [address] [place] [address] [address] Julio Goddard Basophils/100 WBC (Bld) 0.8 % Normal 0.2-2.0 [facility] Comment on above: Performed By: #### C BC #### [facility] [address] [place] [address] [address] Julio Goddard EO # 0.2 103/ul Normal 0.0-0.7 [facility] Comment on above: Performed By: #### C BC #### [facility] [address] [place] [address] [address] Julio Goddard Eosinophils/100 WBC (Bld) 2.6 % Normal 0.9-7.0 [facility] Comment on above: Performed By: #### C BC #### [facility] [address] [place] [address] [address] Julio Goddard Erythrocyte distribution width (RBC) [Ratio] 14.2 % Normal 11.0-15.0 [facility] Comment on above: Performed By: #### C BC #### [facility] [address] [place] [address] [address] Julio Goddard Hematocrit (Bld) [Volume fraction] 37.4 % Normal 36.0-48.0 [facility] Comment on above: Performed By: #### C BC #### [facility] [address] [place] [address] Dr. Julio Goddard Hemoglobin (Bld) [Mass/Vol] 11.9 g/dL Critically low 12.0-16.0 [facility] Comment on above: Performed By: #### C BC #### [facility] [address] [place] [address] Dr. Julio Goddard IG # 0.02 10e3/ul Normal 0.00-0.03 [facility] Comment on above: Performed By: #### C BC #### [facility] [address] [place] [address] Dr. Julio Goddard IG % 0.3 % Normal 0.0-0.5 [facility] Comment on above: Performed By: #### C BC #### [facility] [address] [place] [address] Dr. Julio Goddard LYMPH # 1.8 103/ul Normal 1.2-3.8 [facility] Comment on above: Performed By: #### C BC #### [facility] [address] [place] [address] Dr. Julio Goddard Lymphocytes/100 WBC (Bld) 27.6 % Normal 20.5-60.0 [facility] Comment on above: Performed By: #### C BC #### [facility] [address] [place] [address] Dr. Julio Goddard MANUAL DIFF REQ NO Normal [facility] Comment on above: Performed By: #### C BC #### [facility] [address] [place] [address] Dr. Julio Goddard MCH (RBC) [Entitic mass] 29.1 pg Normal 26.7-34.0 [facility] Comment on above: Performed By: #### C BC #### [facility] [address] [place] [address] [address] Julio Goddard MCHC (RBC) [Mass/Vol] 31.8 g/dL Normal 29.9-35.2 [facility] Comment on above: Performed By: #### C BC #### [facility] [address] [place] [address] [address] Julio Goddard MCV (RBC) [Entitic vol] 91.4 fL Normal 81.0-99.0 [facility] Comment on above: Performed By: #### C BC #### [facility] [address] [place] [address] [address] Julio Goddard MONO # 0.6 103/ul Normal 0.3-0.8 [facility] Comment on above: Performed By: #### C BC #### [facility] [address] [place] [address] Dr. Julio Goddard Monocytes/100 WBC (Bld) 8.7 % Normal 1.7-12.0 [facility] Comment on above: Performed By: #### C BC #### [facility] [address] [place] [address] Dr. Julio Goddard NEUT # 3.9 103/ul Normal 1.4-6.5 [facility] Comment on above: Performed By: #### C BC #### [facility] [address] [place] [address] Dr. Julio Goddard Neutrophils/100 WBC (Bld) 60.0 % Normal 43.0-75.0 [facility] Comment on above: Performed By: #### C BC #### [facility] [address] [place] [address] Dr. Julio Goddard Platelet mean volume (Bld) [Entitic vol] 10.1 fL Normal 9.5-13.5 [facility] Comment on above: Performed By: #### C BC #### [facility] [address] [place] [address] Dr. Julio Goddard PLT 263 103/ul Normal 150-450 [facility] Comment on above: Performed By: #### C BC #### [facility] [address] [place] [address] [address] Julio Goddard RBC 4.09 106/ul Critically low 4.20-5.40 [facility] Comment on above: Performed By: #### C BC #### [facility] [address] [place] [address] [address] Julio Goddard WBC 6.5 103/ul Normal 4.0-11.0 [facility] Comment on above: Performed By: #### C BC #### [facility] [address] [place] [address] [address] Julio Goddard FREE THYROXINE INDEX T7on FTI 3.50 Normal [facility] Comment on above: Performed By: #### C MP, T7, LIPID, TSH #### [facility] [address] [place] [address] [address] Julio Goddard T3U 35.0 % Normal 23.5-40.5 [facility] Comment on above: Performed By: #### C MP, T7, LIPID, TSH #### [facility] [address] [place] [address] [address] Julio Goddard T4 [Mass/Vol] 10.00 ug/dL Normal 5.53-11.00 [facility] Comment on above: Performed By: #### C MP, T7, LIPID, TSH #### [facility] [address] [place] [address] [address] Julio Goddard GLYCOHEMOGLOBIN A1Con 2020 ADA RECOMMENDATION ADA THERAPEUTIC TARGET 6.0 - 7.0 ACTION SUGGESTED > 7.0 Normal [facility] Comment on above: Performed By: #### A 1C #### [facility] [address] [place] [address] [address] Julio Goddard Glucose [Mass/Vol] 103 mg/dL Normal [facility] Comment on above: Performed By: #### A 1C #### [facility] [address] [place] [address] Dr. Julio Goddard HbA1c (Bld) [Mass fraction] 5.2 % Normal <=6.0 [facility] Comment on above: Performed By: #### A 1C #### [facility] Laboratory [address] [address] [address] Julio Goddard IRONon 03-22-2021 Iron [Mass/Vol] 55.0 ug/dL Normal 37.0-170.0 [facility] Comment on above: Performed By: #### I MARIA E ####[facility] [id number] [place], [place] [address]IjDr. Julio Goddard LIPID PROFILEon 03-22-2021 CHOL-HDL RATIO NORM SEE BELOW Normal [facility] Comment on above: Result Comment: 3.3 - 4.4 LOW RISK 4.4 - 7.1 AVERAGE RISK 7.1 - 11.0 MODERATE RISK >11.0 HIGH RISK Performed By: #### C MP, T7, LIPID, TSH #### [facility] Laboratory [address] [address] [address] Julio Goddard Cholesterol [Mass/Vol] 163 mg/dL Normal <=[address] [facility] Comment on above: Performed By: #### C MP, T7, LIPID, TSH #### [facility] Laboratory [address] [address] [address] Julio Goddard Cholesterol in HDL [Mass/Vol] 65 mg/dL Normal [facility] Comment on above: Performed By: #### C MP, T7, LIPID, TSH #### [facility] Laboratory [address] [address] [address] Julio Goddard Cholesterol in LDL [Mass/Vol] 80.8 mg/dL Normal [facility] Comment on above: Performed By: #### C MP, T7, LIPID, TSH #### [facility] Laboratory [address] [address] [address] Julio Goddard Cholesterol.total/Tila sterol in HDL [Mass ratio] 2.5 {ratio} Normal [facility] Comment on above: Performed By: #### C MP, T7, LIPID, TSH #### [facility] Laboratory [address] [address] [address] Julio Goddard HDL NORMAL > or = 60 mg/dl - LO W CARDIOVASCULAR RISK <40 mg/dl - HIGH CARDIOVASCULAR RISK Normal [facility] Comment on above: Performed By: #### C MP, T7, LIPID, TSH #### [facility] Laboratory [address] [address] [address] Julio Goddard LDL CALC NORMAL SEE BELOW Normal [facility] Comment on above: Result Comment: <100 mg/dl OPTIMAL 100 - 129 mg/dl NEAR OR ABOVE OPTIMAL 130 - 159 mg/dl BORDERLINE HIGH 160 - 189 mg/dl HIGH >190 mg/dl VERY HIGH Performed By: #### C MP, T7, LIPID, TSH #### [facility] Laboratory [address] [address] [address] Julio Goddard Triglyceride [Mass/Vol] 86 mg/dL Normal <=150 T [facility] Comment on above: Performed By: #### C MP, T7, LIPID, TSH #### [facility] Laboratory [address] [address] [address] Julio Goddard VLDL CALC 17.2 mg/dL Normal [facility] Comment on above: Performed By: #### C MP, T7, LIPID, TSH #### [facility] Laboratory [address] [address] [address] Julio Goddard PROF 14(COMP METB)on 021 Albumin [Mass/Vol] 3.5 g/dL Normal 3.5-5.0 [facility] Comment on above: Performed By: #### C MP, T7, LIPID, TSH #### [facility] Laboratory [address] [place] [address] Dr. Julio Goddard Albumin/Globulin [Mass ratio] 1.0 {ratio} Normal [facility] Comment on above: Performed By: #### C MP, T7, LIPID, TSH #### [facility] Laboratory [address] [address] [address] Julio Goddard ALP [Catalytic activity/Vol] 58 U/L Normal 38-126 [facility] Comment on above: Performed By: #### C MP, T7, LIPID, TSH #### [facility] Laboratory [address] [address] [address] Julio Goddard ALT [Catalytic activity/Vol] 16 U/L Normal 9-52 [facility] Comment on above: Performed By: #### C MP, T7, LIPID, TSH #### [facility] Laboratory [address] [address] [address] Julio Goddard Anion gap [Moles/Vol] 13.0 mmol/L Normal Th [facility] Comment on above: Performed By: #### C MP, T7, LIPID, TSH #### [facility] Laboratory [address] [address] [address] Julio Goddard AST [Catalytic activity/Vol] 10 U/L Critically low 14-36 [facility] Comment on above: Performed By: #### C MP, T7, LIPID, TSH #### [facility] Laboratory [address] [place] [address] Dr. uJlio Goddard Bilirubin [Mass/Vol] 0.6 mg/dL Normal 0.2-1.3 [facility] Comment on above: Performed By: #### C MP, T7, LIPID, TSH #### [facility] Laboratory [address] [place] [address] Dr. Julio Goddard Calcium [Mass/Vol] 9.4 mg/dL Normal 8.4-10.2 [facility] Comment on above: Performed By: #### C MP, T7, LIPID, TSH #### [facility] Laboratory [address] [place] [address] Dr. Julio Gdodard Chloride [Moles/Vol] 105 mmol/L Normal 98-107 [facility] Comment on above: Performed By: #### C MP, T7, LIPID, TSH #### [facility] Laboratory [address] [place] [address] Dr. Julio Goddard CO2 [Moles/Vol] 28.3 mmol/L Normal 22.0-30.0 [facility] Comment on above: Performed By: #### C MP, T7, LIPID, TSH #### [facility] Laboratory [address] [place] [address] Dr. Julio Goddard Creatinine [Mass/Vol] 1.37 mg/dL Critically high 0.52-1.04 [facility] Comment on above: Performed By: #### C MP, T7, LIPID, TSH #### [facility] Laboratory [address] [place] [address] Dr. Julio Goddard EGFR-AF MARTINIQUAIS 48 mL/min/1.73m2 Critically low >=60 [facility] Comment on above: Performed By: #### C MP, T7, LIPID, TSH #### [facility] Laboratory [address] [address] [address] Julio Goddard EGFR-NON AF MARTINIQUAIS 40 mL/min/1.73m2 Critically low >=60 [facility] Comment on above: Performed By: #### C MP, T7, LIPID, TSH #### [facility] Laboratory [address] [address] [address] Julio Goddard Globulin (S) [Mass/Vol] 3.5 g/dL Normal [facility] Comment on above: Performed By: #### C MP, T7, LIPID, TSH #### [facility] Laboratory [address] [place] [address] Dr. Julio Goddard Glucose [Mass/Vol] 110 mg/dL Critically high 74-106 [facility] Comment on above: Performed By: #### C MP, T7, LIPID, TSH #### [facility] Laboratory [address] [place] [address] Dr. Julio Goddard Potassium [Moles/Vol] 4.3 mmol/L Normal 3.4-5.0 [facility] Comment on above: Performed By: #### C MP, T7, LIPID, TSH #### [facility] Laboratory [address] [place] [address] Dr. Julio Goddard Protein [Mass/Vol] 7.0 g/dL Normal 6.1-8.2 [facility] Comment on above: Performed By: #### C MP, T7, LIPID, TSH #### [facility] Laboratory [address] [place] [address] Dr. Julio Goddard Sodium [Moles/Vol] 142 mmol/L Normal 137-145 [facility] Comment on above: Performed By: #### C MP, T7, LIPID, TSH #### [facility] Laboratory [address] [address] [address] Julio Goddard Urea nitrogen [Mass/Vol] 13.0 mg/dL Normal 7.0-17.0 [facility] Comment on above: Performed By: #### C MP, T7, LIPID, TSH #### [facility] Laboratory [address] [place], [place] [address] Dr. Julio Goddard Urea nitrogen/Creatinine [Mass ratio] 9.5 mg/mg Normal [facility] Comment on above: Performed By: #### C MP, T7, LIPID, TSH #### [facility] Laboratory [address] [place], [place] [address] Dr. Julio Goddard TSHon 03-22-2021 TSH 2.734 uIU/mL Normal 0.470-4.680 [facility] Comment on above: Performed By: #### C MP, T7, LIPID, TSH #### [facility] Laboratory [address] [address] [address] Julio Goddard TSH RANGE SEE BELOW Normal [facility] Comment on above: Result Comment: <0.3 4 UIU/ml HYPERTHYROID 0.34-5.60 UIU/ml EUTHYROID >5.60 UIU/ml HYPOTHYROID Performed By: #### C MP, T7, LIPID, TSH #### [facility] Laboratory [address] [address] [address] Julio Goddard Vital Signs Date Time Vital Sign Value Performing Clinician Facility 12-15-2024 11:46-0400 Body height 157.5 cm Gilmer Rivera DPM Work Phone: [facility] 12-15-2024 11:46-0400 Body mass index (BMI) [Ratio] 36.21 kg/m2 Gilmer Rivera DPM Work Phone: [facility] 12-15-2024 11:46-0400 Body weight 89.81 kg Gilmer Rivera DPM Work Phone: [facility] 12-15-2024 11:46-0400 Respiratory rate 18 /min Gilmer Rivera DPM Work Phone: [facility] 11-11-2024 10:35-0400 Body height 157.5 cm Gilmer Rivera DPM Work Phone: [facility] 11-11-2024 10:35-0400 Body mass index (BMI) [Ratio] 36.21 kg/m2 Gilmer Brown DPM Work Phone: [facility] 11-11-2024 10:35-0400 Body weight 89.81 kg Gilmer Brown DPM Work Phone: [facility] 11-11-2024 10:35-0400 Respiratory rate 18 /min Gilmer Brown DPM Work Phone: [facility] 10-13-2024 13:52-0400 Body height 157.5 cm Gilmer Brown DPM Work Phone: [facility] 10-13-2024 13:52-0400 Body mass index (BMI) [Ratio] 36.21 kg/m2 Gilmer Brown DPM Work Phone: [facility] 10-13-2024 13:52-0400 Body weight 89.81 kg Gilmer Brown DPM Work Phone: [facility] 10-13-2024 13:52-0400 Respiratory rate 16 /min Gilmer Brown DPM Work Phone: [facility] 09-10-2024 16:25-0400 Body height 157.5 cm Gilmer Brown DPM Work Phone: [facility] 09-10-2024 16:25-0400 Body mass index (BMI) [Ratio] 36.21 kg/m2 Gilmer Brown DPM Work Phone: [facility] 09-10-2024 16:25-0400 Body weight 89.81 kg Gilmer Brown DPM Work Phone: [facility] 09-10-2024 16:25-0400 Respiratory rate 16 /min Gilmer Brown DPM Work Phone: [facility] 09-03-2024 15:34-0400 Body height 157.5 cm Gilmer Brown DPM Work Phone: [facility] 09-03-2024 15:34-0400 Body mass index (BMI) [Ratio] 36.21 kg/m2 Gilmer Brown DPM Work Phone: [facility] 09-03-2024 15:34-0400 Body weight 89.81 kg Gilmer Brown DPM Work Phone: [facility] 09-03-2024 15:34-0400 Respiratory rate 18 /min Gilmer Brown DPM Work Phone: [facility] 08-11-2024 13:16-0400 Body height 157.5 cm Gilmer Brown DPM Work Phone: [facility] 08-11-2024 13:16-0400 Body mass index (BMI) [Ratio] 36.21 kg/m2 Gilmer Brown DPM Work Phone: [facility] 08-11-2024 13:16-0400 Body weight 89.81 kg Gilmer Brown DPM Work Phone: [facility] 08-11-2024 13:16-0400 Respiratory rate 16 /min Gilmer Brown DPM Work Phone: [facility] 07-21-2024 11:02-0400 Body height 157.5 cm Gilmer Brown DPM Work Phone: [facility] 07-21-2024 11:02-0400 Body mass index (BMI) [Ratio] 36.21 kg/m2 Gilmer Brown DPM Work Phone: [facility] 07-21-2024 11:02-0400 Body weight 89.81 kg Gilmer Brown DPM Work Phone: [facility] 07-21-2024 11:02-0400 Respiratory rate 18 /min Gilmer Brown DPM Work Phone: [facility] 07-08-2024 14:13-0400 Body height 157.5 cm Gilmer Brown DPM Work Phone: [facility] 07-08-2024 14:13-0400 Body mass index (BMI) [Ratio] 36.21 kg/m2 Gilmer Brown DPM Work Phone: [facility] 07-08-2024 14:13-0400 Body weight 89.81 kg Gilmer Ariana DPM Work Phone: [facility] 07-08-2024 14:13-0400 Respiratory rate 18 /min Gilmer Rivera DPM Work Phone: [facility] 02-12-2024 08:50-0500 Body height 157.5 cm Angelo De La Cruz MD Work Phone: [facility] 02-12-2024 08:50-0500 Body mass index (BMI) [Ratio] 34.75 kg/m2 Angelo De La Cruz MD Work Phone: [facility] 02-12-2024 08:50-0500 Body weight 86.18 kg Angelo De La Cruz MD Work Phone: [facility] 02-12-2024 08:50-0500 Diastolic blood pressure 76 mm[Hg] Angelo De La Cruz MD Work Phone: [facility] 02-12-2024 08:50-0500 Systolic blood pressure 119 mm[Hg] Angelo De La Cruz MD Work Phone: [facility] 02-05-2024 10:32-0500 Body height 157.5 cm Angelo De La Cruz MD Work Phone: [facility] 02-05-2024 10:32-0500 Body mass index (BMI) [Ratio] 34.75 kg/m2 Angelo De La Cruz MD Work Phone: [facility] 02-05-2024 10:32-0500 Body weight 86.18 kg Angelo De La Cruz MD Work Phone: [facility] 02-05-2024 10:32-0500 Diastolic blood pressure 81 mm[Hg] Angelo De La Cruz MD Work Phone: [facility] 02-05-2024 10:32-0500 Systolic blood pressure 121 mm[Hg] Angelo De La Cruz MD Work Phone: [phone] [place] [address] 11-27-2023 14:51-0400 Blood Pressure Location PRANAV DEVEN [facility] 11-27-2023 14:51-0400 Diastolic blood pressure 96 mm[Hg] PRANAV DEVEN [facility] 11-27-2023 14:51-0400 Heart rate 66 /min PRANAV DEVEN [facility] 11-27-2023 14:51-0400 Systolic blood pressure 144 mm[Hg] PRANAV DEVEN [facility] 08-21-2023 09:39-0400 Blood Pressure Location PRANAV DEVEN [facility] 08-21-2023 09:39-0400 Diastolic blood pressure 63 mm[Hg] PRANAV DEVEN [facility] 08-21-2023 09:39-0400 Heart rate 74 /min PRANAV DEVEN [facility] 08-21-2023 09:39-0400 Respiratory rate 19 /min PRANAV DEVEN [facility] 08-21-2023 09:39-0400 Systolic blood pressure 108 mm[Hg] PRANAV DEVEN [facility] 05-30-2022 13:47-0500 Body height 157.5 cm Eliana Bonds MD Work Phone: [facility] 05-30-2022 13:47-0500 Body mass index (BMI) [Ratio] 32.74 kg/m2 Eliana Bonds MD Work Phone: [facility] 05-30-2022 13:47-0500 Body weight 81.19 kg Eliana Bonds MD Work Phone: [facility] 05-30-2022 13:47-0500 Diastolic blood pressure 84 mm[Hg] Eliana Bonds MD Work Phone: [facility] 05-30-2022 13:47-0500 Heart rate 76 /min Eliana Bonds MD Work Phone: [facility] 05-30-2022 13:47-0500 Respiratory rate 16 /min Eliana Bonds MD Work Phone: [facility] 05-30-2022 13:47-0500 SaO2% (BldA) [Mass fraction] 97 % Eliana Bonds MD Work Phone: [facility] 05-30-2022 13:47-0500 Systolic blood pressure 129 mm[Hg] Eliana Bonds MD Work Phone: [facility] 02-28-2022 12:48-0500 Body height 157.5 cm Eliana Bonds MD Work Phone: [facility] 02-28-2022 12:48-0500 Body mass index (BMI) [Ratio] 32.74 kg/m2 Eliana Bonds MD Work Phone: [facility] 02-28-2022 12:48-0500 Body weight 81.19 kg Eliana Bonds MD Work Phone: [facility] 02-28-2022 12:48-0500 Diastolic blood pressure 83 mm[Hg] Eliana Bonds MD Work Phone: [facility] 02-28-2022 12:48-0500 Heart rate 78 /min Eliana Bonds MD Work Phone: [facility] 02-28-2022 12:48-0500 Respiratory rate 18 /min Eliana Bonds MD Work Phone: [facility] 02-28-2022 12:48-0500 SaO2% (BldA) [Mass fraction] 95 % Eliana Bonds MD Work Phone: [facility] 02-28-2022 12:48-0500 Systolic blood pressure 132 mm[Hg] Eliana Bonds MD Work Phone: [facility] 01-05-2022 11:19-0400 Diastolic blood pressure 79 mm[Hg] DO Justin Francisco Work Phone: [facility] 01-05-2022 11:19-0400 Heart rate 75 /min DO Justin Francisco Work Phone: [facility] 01-05-2022 11:19-0400 Respiratory rate 18 /min DO Justin Francisco Work Phone: [facility] 01-05-2022 11:19-0400 SaO2% (BldA) [Mass fraction] 97 % DO Justin Francisco Work Phone: [facility] 01-05-2022 11:19-0400 Systolic blood pressure 126 mm[Hg] DO Justin Francisco Work Phone: [facility] 01-05-2022 08:17-0400 Body temperature 97.5 [degF] DO Justin Francisco Work Phone: [facility] 01-05-2022 04:44-0400 Body weight 79.8 kg DO Justin Francisco Work Phone: [facility] 01-04-2022 11:34-0400 Body height 157.48 cm DO Justin Francisco Work Phone: [facility] 01-03-2022 17:04-0400 Diastolic blood pressure 110 mm[Hg] DO Justin Francisco Work Phone: [facility] 01-03-2022 17:04-0400 Heart rate 88 /min DO Justin Francisco Work Phone: [facility] 01-03-2022 17:04-0400 Respiratory rate 20 /min DO Justin Francisco Work Phone: [facility] 01-03-2022 17:04-0400 SaO2% (BldA) [Mass fraction] 97 % DO Justin Francisco Work Phone: [facility] 01-03-2022 17:04-0400 Systolic blood pressure 180 mm[Hg] DO Justin Francisco Work Phone: [facility] 01-03-2022 14:43-0400 Body height 157.48 cm DO Justin Francisco Work Phone: [facility] 01-03-2022 14:43-0400 Body weight 80 kg DO Justin Francisco Work Phone: [facility] 01-03-2022 13:59-0400 Body temperature 98.5 [degF] DO Justin Francisco Work Phone: [facility] 10-14-2021 13:13-0400 Body height 157.5 cm Uprani Bonds MD Work Phone: [facility] 10-14-2021 13:13-0400 Body mass index (BMI) [Ratio] 32.92 kg/m2 Uprani Bonds MD Work Phone: [facility] 10-14-2021 13:13-0400 Body weight 81.65 kg Eliana Bonds MD Work Phone: [facility] 10-14-2021 13:13-0400 Diastolic blood pressure 85 mm[Hg] Eliana Bonds MD Work Phone: [facility] 10-14-2021 13:13-0400 Heart rate 76 /min Uprani Bonds MD Work Phone: [facility] 10-14-2021 13:13-0400 Respiratory rate 16 /min Eliana Bonds MD Work Phone: [facility] 10-14-2021 13:13-0400 SaO2% (BldA) [Mass fraction] 95 % Eliana Bonds MD Work Phone: [facility] 10-14-2021 13:13-0400 Systolic blood pressure 125 mm[Hg] Eliana Bonds MD Work Phone: [facility] 07-19-2021 12:55-0400 Body height 157.5 cm Eliana Bonds MD Work Phone: [facility] 07-19-2021 12:55-0400 Body mass index (BMI) [Ratio] 32.92 kg/m2 Eliana Bonds MD Work Phone: [facility] 07-19-2021 12:55-0400 Body weight 81.65 kg Eliana Bonds MD Work Phone: [facility] 07-19-2021 12:55-0400 Diastolic blood pressure 86 mm[Hg] Eliana Bonds MD Work Phone: [facility] 07-19-2021 12:55-0400 Heart rate 67 /min Eliana Bonds MD Work Phone: [facility] 07-19-2021 12:55-0400 Respiratory rate 16 /min Eliana Bonds MD Work Phone: [facility] 07-19-2021 12:55-0400 SaO2% (BldA) [Mass fraction] 98 % Eliana Bonds MD Work Phone: [facility] 07-19-2021 12:55-0400 Systolic blood pressure 126 mm[Hg] Eliana Bonds MD Work Phone: [facility] 09-24-2020 13:12-0400 Body height 157.5 cm Eliana Bonds MD Work Phone: [facility] 09-24-2020 13:12-0400 Body mass index (BMI) [Ratio] 32.92 kg/m2 Eliana Bonds MD Work Phone: [facility] 09-24-2020 13:12-0400 Body weight 81.65 kg Eliana Bonds MD Work Phone: [facility] 09-24-2020 13:12-0400 Diastolic blood pressure 89 mm[Hg] Eliana Bonds MD Work Phone: [facility] 09-24-2020 13:12-0400 Heart rate 67 /min Eliana Bonds MD Work Phone: [facility] 09-24-2020 13:12-0400 Respiratory rate 16 /min Eliana Bonds MD Work Phone: [facility] 09-24-2020 13:12-0400 SaO2% (BldA) [Mass fraction] 95 % Eliana Bonds MD Work Phone: [facility] 09-24-2020 13:12-0400 Systolic blood pressure 146 mm[Hg] Eliana Bonds MD Work Phone: [facility] 07-27-2020 12:59-0400 Body height 165.1 cm Eliana Bonds MD Work Phone: [facility] 07-27-2020 12:59-0400 Body mass index (BMI) [Ratio] 22.63 kg/m2 Eliana Bonds MD Work Phone: [facility] 07-27-2020 12:59-0400 Body weight 61.69 kg Eliana Bonds MD Work Phone: [facility] 05-17-2020 13:11-0500 BP Diastolic 103 mm[Hg] rani cindy [facility] 05-17-2020 13:11-0500 BP Systolic 163 mm[Hg] [facility] 05-17-2020 13:11-0500 Height 157.5 cm rani cindy [facility] 05-17-2020 13:11-0500 Pulse (Heart Rate) 66 /min [facility] 05-17-2020 13:11-0500 Pulse Oximetry 96 % [facility] 05-17-2020 13:11-0500 Respiratory Rate 16 /min rani cindy [facility] Encounters Encounter Date Encounter Type Care Provider Facility Start: 03-10-2025 ambulatory Nicolle Beck Facility:[facility] [place] Start: 12-15-2024 End: 12-15-2024 Bamboo flowsheet Gilmer [...] Nicolle Beck [facility] Start: 11-11-2024 End: 11-11-2024 Bamboo flowsheet [...] POD Start: 10-13-2024 End: 10-13-2024 Bamboo flowsheet Glimer Rivera DPM Work Phone: [facility] [...] procedure Gilmer Rivera DPM -CT Scan [facility] Work Phone: Start: 09-29-2024 End: 09-29-2024 ambulatory Vicky Arnett MD Work Phone: [facility] Work Phone: Start: 09-10-2024 End: 09-10-2024 [...] End: 08-11-2024 Office outpatient visit 25 minutes Glimer Arlyn Rivera DPM Work Phone: [facility] [...] Start: 07-02-2024 End: 07-02-2024 ambulatory Neel FALL Facility:[id number] Start: 06-17-2024 End: 06-17-2024 ambulatory Vicky [...] 02-12-2024 End: 02-12-2024 Clinical Support Lilibeth Pena [facility] Work Phone: [facility] Comment on above: Sensorineural hearin g [...] PRANAV CARVALHO [facility] Start: 11-27-2023 End: 11-27-2023 Jazmine Bonds MD Work Phone: [facility] Start: 11-02-2023 End: 11-04-2023 ambulatory [facility] Start: 11-02-2023 End: 11-04-2023 ambulatory [facility] Start: 09-28-2023 End: 09-30-2023 ambulatory [facility] Start: 09-28-2023 End: 09-30-2023 Subsequent hospital visit by physician Vicky Arnett MD Work Phone: [facility] Start: 08-21-2023 End: 08-21-2023 Patient encounter procedure PRANAV CARVALHO [facility] [place] Start: 05-30-2022 End: 05-30-2022 ambulatory [facility] Start: 05-30-2022 End: 05-30-2022 Office outpatient visit 15 minutes Eliana Bonds MD Work Phone: [facility] Comment on above: Bipolar 1 disorder, mixed, mild (HCC) (Primary Dx); Insomnia due to mental disorder; VICKIE (generalized anxiety disorder) Start: 05-10-2022 Refill Eliana Bonds MD Work Phone: [facility] Start: 03-30-2022 Refill Eliana Bonds MD Work Phone: [facility] Comment on above: 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; VICKIE (generalized anxiety disorder) Start: 02-28-2022 End: 02-28-2022 ambulatory [facility] Start: 02-28-2022 End: 02-28-2022 Office outpatient visit 25 minutes Eliana Bonds MD Work Phone: [facility] Comment on above: Bipolar 1 disorder, depressed, mild (HCC) (Primary Dx); Insomnia due to mental disorder; VICKIE (generalized anxiety disorder) Start: 01-19-2022 End: 01-20-[address] VICKY ARNETT Facility:H1 Start: 01-09-2022 End: 01-09-2022 ambulatory [facility] Ambulatory Start: 01-03-2022 End: 01-05-2022 Evaluation and management of inpatient DO Justin Francisco Work Phone: [facility] [place] [facility] Start: 01-03-2022 End: 01-05-2022 observation encounter DO Justin Francisco Work Phone: [facility] Work Phone: Start: 10-27-2021 End: 10-28-2021 ambulatory RANI DAUGHERTYVAL Facility:H1 Start: 10-14-2021 End: 10-14-2021 ambulatory RANI [facility] Ambulatory Start: 10-14-2021 End: 10-14-2021 Office outpatient visit 15 minutes Eliana Bonds MD Work Phone: [facility] Comment on above: Bipolar 1 disorder, depressed, moderate (HCC) (Primary Dx); Insomnia due to mental disorder; VICKIE (generalized anxiety disorder) Start: 10-05-2021 [facility] Start: 07-22-2021 ambulatory [facility] Amb[facility] Start: 07-19-2021 End: 07-19-2021 ambulatory [facility] Amb[facility] Start: 07-19-2021 End: 07-19-2021 Office outpatient visit 15 minutes Eliana Bonds MD Work Phone: [facility] Comment on above: Bipolar 1 disorder, depressed, moderate (HCC) (Primary Dx); Insomnia due to mental disorder; VICKIE (generalized anxiety disorder) Start: 05-16-2021 Refill Sarah Leigh MA [facility] Comment on above: 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 (Primary Dx) 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 Start: 03-30-2021 Encounter for genera l adult medical examination without abnormal findings DR VICKY ARNETT [facility] Start: 03-29-2021 Refill Nellie Sky MA [facility] Start: 03-22-2021 End: 03-23-[address] VICKY ARNETT Facility:H1 Start: 03-22-2021 End: 03-23-2021 Encounter for general adult medical examination without abnormal findings DR VICKY ARNETT Facility:H1 Start: 12-07-2020 Refill Lidia Mahoney LPN [facility] Comment on above: 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; VICKIE (generalized anxiety disorder) Start: 09-24-2020 End: 09-24-2020 Office outpatient visit 25 minutes Eliana Bonds MD Work Phone: [facility] Comment on above: Bipolar 1 disorder, depressed, mild (HCC) (Primary Dx); Insomnia due to mental disorder; VICKIE (generalized anxiety disorder) Start: 08-31-2020 End: 08-31-2020 Jazmine Mahoney LPN [facility] Comment on above: 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; VICKIE (Generalized Anxiety Disorder) Start: 07-27-2020 End: 07-27-2020 Phys/qhp telephone evaluation 11-20 min Eliana Bonds MD Work Phone: [facility] Comment on above: Bipolar 1 disorder, depressed, mild (HCC) (Primary Dx); Insomnia due to mental disorder; VICKIE (Generalized Anxiety Disorder) Start: 05-17-2020 End: 05-17-2020 Office outpatient visit 15 minutes Uprani Bonds Work Phone: [facility] Comment on above: Bipolar 1 disorder, depressed, mild (HCC) (Primary Dx); VICKIE (Generalized Anxiety Disorder); Insomnia due to mental disorder Start: 04-06-2020 End: 04-06-2020 Phys/qhp telephone evaluation 11-20 min Eliana Bonds Work Phone: [facility] Comment on above: Bipolar [...] EDT Office Visit [facility] [address] [place] [id number] Gilmer Rivera DPM [address] [address] DJD (degenerative joint disease), ankle [...] Office Visit [facility] [address] [place] [phone] Gilmer Rivera DPM [address] [address] [facility] Start: 12-01-2024 Influenza vaccination [facility] Start: 09-10-2024 End: 09-10-2024 Patient encounter procedure 09/10/2024 4:20 PM EDT Office Visit [facility] [address] [place] [phone] Gilmer Rivera DPM [address] [address] DJD (degenerative joint disease), ankle and foot, left (Primary Dx); Lisfranc dislocation, left, initial encounter; Other physeal fracture of left metatarsal, initial encounter for closed fracture; Capsulitis of metatarsophalangeal (MTP) joint of left foot [facility] Comment on above: DJD (degenerative joint disease), ankle and foot, left (Primary Dx); Lisfranc dislocation, left, initial encounter; Other physeal fracture of left metatarsal, initial encounter for closed fracture; Capsulitis of metatarsophalangeal (MTP) joint of left foot Start: 09-03-2024 End: 09-03-2024 Patient encounter procedure 09/03/2024 3:40 PM EDT Office Visit [facility] [address] [place] [phone] Gilmer Rivera DPM [address] [address] DJD (degenerative joint disease), ankle and foot, left (Primary Dx); Lisfranc dislocation, left, initial encounter [facility] Comment on above: DJD (degenerative joint disease), ankle and foot, left (Primary Dx); Lisfranc dislocation, left, initial encounter Start: 08-11-2024 End: 08-11-2024 Patient encounter procedure 08/11/2024 1:20 PM EDT Office Visit [facility] [address] [place] [phone] Gilmer Rivera DPM [address] [address] DJD (degenerative joint disease), ankle and foot, left (Primary Dx); Lisfranc dislocation, left, initial encounter [facility] Comment on above: DJD (degenerative joint disease), ankle and foot, left (Primary Dx); Lisfranc dislocation, left, initial encounter Start: 07-21-2024 End: 07-21-2024 Patient encounter procedure 07/21/2024 11:10 AM EDT Office Visit [facility] [address] [place] [phone] Gilmer Rivera DPM [address] [address] DJD (degenerative joint disease), ankle and foot, [...] Office Visit [facility] [address] [facility] [address] [place] [address] Angelo De La Cruz MD [address] [facility] [address] [place] [address] Arrived [facility] Comment on above: Arrived Start: 12-02-2023 Influenza vaccination Influenza Vaccine (#1) [facility] Start: 11-01-2023 Influenza vaccination Flu vaccine (Season Ended) [facility] [employer] [facility] Start: 05-19-2023 Screening for malignant neoplasm of colon [facility] Start: 2022 Respiratory Syncytial Virus (RSV) or age 60 yrs+ (1 - 1-dose 60+ series) Respiratory Syncytial Virus (RSV) or age 60 yrs+ (1 - 1-dose 60+ series) [facility] [employer] [facility] Start: 12-01-2022 COVID-19 Vaccine ( season) COVID-19 Vaccine ( season) [facility] Start: 05-30-2022 End: 05-30-2022 Patient encounter procedure 05/30/2022 Office Visit Psychiatry Eliana Bonds MD [address] [place] [phone] [facility] Start: 01-09-2022 End: 01-09-2022 Patient encounter procedure 01/09/2022 Office Visit Psychiatry Eliana Bonds MD [address] [address] [facility] Start: 01-05-2022 [facility] Start: 01-04-2022 Comprehensive metabolic 2000 panel - Serum or Plasma [facility] Start: 01-04-2022 Lipid panel [facility] Start: 01-04-2022 Magnesium measurement [facility] Start: 01-04-2022 Phosphate [Mass/volume] in Serum or Plasma [facility] Start: 01-04-2022 [facility] Start: 01-03-2022 Referral to psychiatrist [facility] Start: 01-03-2022 Hospital admission [facility] Start: 01-03-2022 [facility] Start: 12-01-2021 Influenza vaccination [facility] Start: 10-14-2021 End: 10-14-2021 Patient encounter procedure 10/14/2021 Office Visit Psychiatry Eliana Bonds MD [address] [facility] [address] [place] [phone] [facility] Start: 07-28-2021 COVID-19 Vaccine (4 - Booster for Pfizer series) COVID-19 Vaccine (4 - Booster for Pfizer series) [facility] Start: 07-15-2021 End: 07-15-2021 Patient encounter procedure 07/15/2021 Office Visit Psychiatry Eliana Bonds MD [address] [facility] [address] [place] [address] [facility] Start: 05-24-2021 COVID-19 Vaccine (4 - Booster for Pfizer series) COVID-19 Vaccine (4 - Booster for Pfizer series) [facility] Start: 04-18-2021 End: 04-18-2021 Patient encounter procedure 04/18/2021 Office Visit Psychiatry Eliana Bonds MD [address] [facility] [address] [place] [address] [facility] Start: 01-12-2021 COVID-19 Vaccine (3 - Booster for Pfizer series) COVID-19 Vaccine (3 - Booster for Pfizer series) [facility] Start: 01-03-2021 End: 01-03-2021 Patient encounter procedure [facility] Start: 12-01-2020 Influenza vaccination [facility] Start: 09-24-2020 End: 09-24-2020 Patient encounter procedure 09/24/2020 Office Visit Psychiatry Eliana Bonds MD [address] [facility] [address] [place] [address] [phone] [facility] Start: 09-14-2020 End: 09-14-2020 Patient encounter procedure 09/14/2020 Office Visit Psychiatry Eliana Bonds MD [address] [facility] [address] [place] [address] [phone] [facility] Start: 09-10-2020 End: 09-10-2020 Office Visit 09/10/2020 Office Visit Psychiatry Eliana Bonds MD [facility] [place] [address] [phone] [facility] Start: 12-02-2019 Influenza vaccination given Sequential Influenza Vaccine (#1) [facility] Start: 2012 Administration of herpes zoster vaccine Zoster Vaccines (1 of 2) [facility] Start: 2012 Screening for malignant neoplasm of colon [facility] Start: 2012 Shingles vaccine (1 of 2) Shingles vaccine (1 of 2) [facility] Start: 12-12-2007 Screening for malignant neoplasm of colon [facility] Start: 2002 Lipid panel Lipids [facility] Start: 2002 Screening for malignant neoplasm of breast [facility] Start: 1992 Screening for malignant neoplasm of cervix [facility] Start: 12-12-1983 Screening for malignant neoplasm of cervix Pap Smear [facility] Start: 1981 DTaP/Tdap/Td vaccine (1 - Tdap) DTaP/Tdap/Td vaccine (1 - Tdap) [facility] Start: 1980 Hepatitis C antibody, confirmatory test Hepatitis C Screening [facility] Start: 1980 Hepatitis C screening [facility] Start: 1978 COVID-19 Vaccine (1 of 2) COVID-19 Vaccine (1 of 2) [facility] Start: 1977 HIV screening [facility] Start: 1974 Depression Screen Depression Screen [facility] Start: 1965 History and physical examination, annual for health maintenance Wellness Visit [facility] Start: 1962 Screening for malignant neoplasm of cervix Pap Smear [facility] Start: 1962 Screening for malignant neoplasm of colon [facility] Start: 1962 Screening mammography Mammogram [facility] Start: 1962 Tetanus vaccination Tetanus: Every 10yrs [facility] Bacteria identified in Urine by Culture [facility] Work Phone: End: 10-14-2022 Complete blood count with white cell differential, manual CBC and Differential Lab Routine Bipolar 1 disorder, depressed, moderate (HCC) 1 Occurrences starting 10/14/2021 until 10/14/2022 [facility] Comment on above: 1 Occurrences starting 10/14/2021 until 10/14/2022 End: 10-14-2022 Comprehensive metabolic 2000 panel - Serum or Plasma Comprehensive Metabolic Panel Lab Routine Bipolar 1 disorder, depressed, moderate (HCC) 1 Occurrences starting 10/14/2021 until 10/14/2022 [facility] Work Phone: Comment on above: 1 Occurrences starting 10/14/2021 until 10/14/2022 CT Foot - left WO contrast CT fo ot left wo IV contrast Imaging Routine Lisfranc dislocation, left, initial encounter Other physeal fracture of left metatarsal, initial encounter for closed fracture Ordered: 09/10/2024 [facility] Work Phone: Comment on above: Ordered: 09/10/2024 End: 10-14-2022 Lipid 1996 panel - Serum or Plasma Lipid Panel Lab Routine Bipolar 1 disorder, depressed, moderate (HCC) 1 Occurrences starting 10/14/2021 until 10/14/2022 [facility] Comment on above: 1 Occurrences starting 10/14/2021 until 10/14/2022 Patient Education High Blood Pre ssure (DC) Urinary Tract Infection, Adult (DC) Acute Kidney Injury (DC) Cefuroxime Hydralazine [facility] Work Phone: Patient referral [facility] Work Phone: Immunizations Immunization Date Immunization Notes Care Provider Aly oglesby 01-05-2022 influenza, injectabl e, quadrivalent, preservative free DO [facility] Work Phone: [facility] 01-05-2022 influenza virus vaccine, unspecified formulation Eliana Bonds MD Work Phone: [facility] 03-29-2021 COVID-19 mRNA, Comirnaty (Pfizer) DO Justin [facility] Work Phone: [facility] 07-13-2020 COVID-19 mRNA, Comirnaty (Pfizer) DO [facility] Work Phone: [facility] 06-21-2020 COVID-19 Ino Verduzco (Pfizer) DO Justin Francisco Work Phone: [facility] Payers Date Payer Category Payer Self-pay 2022 Private Health Insurance [id number] 2014 Unknown [id number] 2014 Unknown MMO [employer] S [employer] PPO [id number] 2014-Present [phone] [address] [place] [address] [id number] .[id number] 1962 Unknown [id number] 2.16.840.1.948125.3.579.2.5 1962 Unknown [id number] 2.16.840.1.305366.3.579.2.5 93 1962 Unknown [id number] 2.16.840.1.038171.3.579.2.5 1962 Unknown [id number] 2.16.840.1.643951.3.579.2.5 1962 Unknown [id number] 2.16.840.1.386680.3.579.2.9 03 1962 Unknown [id number] 2.16.840.1.240572.3.579.2.9 03 1962 Unknown [id number] 2.16.840.1.248733.3.579.2.9 1962 Unknown [id number] 2.16.840.1.324724.3.579.2.9 1962 Unknown [id number] 2.16.840.1.656664.3.579.2.9 1962 Unknown [id number] 2.16.840.1.407408.3.579.2.9 03 1962 Unknown [id number] 2.16.840.1.844140.3.579.2.9 03 1962 Unknown [id number] 2.16.840.1.489744.3.579.2.1 74 1962 Unknown [id number] 2.16.840.1.409883.3.579.2.1 74 1962 Unknown [id number] 2.16.840.1.276319.3.579.2.1 74 1962 Unknown [id number] 2.16.840.1.023554.3.579.2.1 74 1962 Unknown [id number] 2.16.840.1.405632.3.579.2.7 27 1962 Unknown [id number] 2.16.840.1.486255.3.579.2.7 27 1962 Unknown [id number] 2.16.840.1.134192.3.579.2.7 27 1962 Unknown [id number] 2.16.840.1.991289.3.579.2.7 27 1962 Unknown [id number] 2.16.840.1.115187.3.579.2.7 27 1962 Unknown [id number] 2.16.840.1.271704.3.579.2.7 27 1962 Unknown [id number] 2.16.840.1.889624.3.579.2.1 259 1962 Unknown [id number] 2.16.840.1.185504.3.579.2.1 259 1962 Unknown [id number] 2.16.840.1.158424.3.579.2.1 259 1962 Unknown [id number] 2.16.840.1.410054.3.579.2.1 259 1962 Unknown [id number] 2.16.840.1.092251.3.579.2.1 259 1962 Unknown [id number] 2.16.840.1.696682.3.579.2.1 259 1962 Unknown [id number] 2.16.840.1.747640.3.579.2.1 259 1962 Unknown [id number] 2.16.840.1.677854.3.579.2.1 259 1962 Unknown [id number] 2.16.840.1.923140.3.579.2.1 259 1962 Unknown [id number] 2.16.840.1.821235.3.579.2.1 259 1962 Unknown [id number] 2.16.840.1.664343.3.579.2.1 259 1962 Unknown [id number] 2.16.840.1.719607.3.579.2.1 259 1962 Unknown [id number] 2.16.840.1.510347.3.579.2.1 259 1959 Unknown [id number] 2.16.840.1.498414.3.579.2.5 31 Social History Date Type Detail Facility Start: 04-06-2020 End: 01-30-2024 Tobacco smoking status NHIS Former smoker [facility] Start: 04-06-2020 End: 01-30-2024 Tobacco use and exposure Never used [facility] Start: 04-06-2020 End: 12-15-2024 Alcohol intake Ex-drinker (finding) [facility] Start: 1960 Sex Assigned At Not on file [facility] Exposure to SARS-CoV -2 (event) Unable to assess [facility] Start: 07-09-2021 End: 05-24-2022 Exposure to SARS-CoV-2 (event) Not sure [facility] Start: 01-03-2022 Tobacco smoking stat us NHIS Never smoked tobacco (finding) [facility] Start: 1960 Sex Assigned At Female F [facility] End: 04-02-2000 History of tobacco use Current smoker [facility] Start: 05-30-2022 End: 11-11-2024 History of Social function [facility] Start: 05-30-2022 End: 11-11-2024 Tobacco use panel [facility] Tobacco smoking status Never [facility] End: 04-02-2000 History of tobacco use Cigarette Smoker [facility] Tobacco smoking stat [facility] Tobacco smoking consumption unknown [facility] Start: 06-20-2018 Sex Female (finding) [facility] Sexual Orientation [facility] Goals Date Patient Goal Desired Activity /State Functional Status Date Assessment Result Facility 11-27-2023 Functional Status N/A [facility] 08-21-2023 Functional Status N/A [facility] 01-05-2022 Functional status Patient at Baseline [facility] Work Phone: Mental Status Date Assessment Result Facility 01-05-2022 Cognitive function Cognitive Sta tus Patient at Baseline [facility] Work Phone: Clinical Notes 07-27-2020 to [...] Gilmer Rivera DPM documented in this encounter [facility] 12-02-2024 Hospital Discharge instructions Patient Education [...] nerve stimulation). ?For women, using a medical transcriptionist to prevent urine leaks. This is a [...] right after experiencing incontinence. General instructions Take zfje-yup-nmtzuoj and prescription medicines only as told by [...] important. Where to find more information National [place] of Diabetes and Digestive and Kidney Diseases: www.niddk.nih.gov [employer] [employer]: www.urologyhealth.org Contact a health care [...] provider. Document Revised: 10/22/2020 Document Reviewed: 10/22/2020 [employer] Patient Education 2023 Scour Prevention. 12/02/2024 10:54:09 Kidney Stones, Lcnv-qp-Ospl Kidney Stones Kidney stones are rock-like masses [...] Follow these instructions at home: Medicines Take jdpd-rlo-ajoecix and prescription medicines only as told by [...] provider. Document Revised: 11/10/2022 Document Reviewed: 11/10/2022 [employer] Patient Education 2023 Scour Prevention. Follow Up Care 06/18/2024 11:29:17 With:Nicolle Beck PA-C, [facility] Address: When:Within 3 Month(s) Comments:w/ [facility] 12-02-2024 Note Patient Education Urology Urinary [...] stimulation). ? For women, using a medical transcriptionist to prevent urine leaks. This is a [...] health care provider (more content not included)... [facility] 11-11-2024 History of Present illness Narrative Patient: [...] Gilmer Rivera DPM documented in this encounter [facility] 10-13-2024 History of Present illness Narrative [...] CT foot left wo IV contrast Narrative: [facility] [place] [address] [place] [address] CT Scan Report Signed Patient: Kyleigh Adame MR#: [id number] : 1960 Acct:[id number] Age/Sex: 63 / F ADM Date: 09/29/24 Loc: CT Room: Type: [facility] Attending Dr: Gilmer Rivera DPM [...] Portillo M.D. 09/29/2024 10:53 PM Dictation Location: [facility] Transcribed By: [facility] 09/29/242252 Dictated By: Ethan Portillo DO [...] Gilmer Rivera DPM documented in this encounter [facility] 09-29-2024 Radiology Diagnostic study note [facility] [place] [address] [place] [address] CT Scan Report Signed Patient: Kyleigh Adame MR#: [id number] : 1960 Acct:[id number] Age/Sex: 63 / F ADM Date: 5 Loc: CT Room: Type: [facility] Attending Dr: Gilmer Rivera DPM [...] Portillo M.D. 09/29/2024 10:53 PM Dictation Location[facility] Transcribed By: [facility] 09/29/242252 Dictated By: Ethan Portillo DO 09/29/242247 Signed By: 09/29/242252 [facility] 09-10-2024 History of Present illness Narrative [...] continue with walking boot [facility] possible left 3 4 met base fractures Gilmer Rivera DPM documented in this encounter [facility] 09-03-2024 History of Present illness Narrative [...] Gilmer Rivera DPM documented in this encounter [facility] 08-11-2024 History of Present illness Narrative [...] Gilmer Rivera DPM documented in this encounter [facility] 07-21-2024 History of Present illness Narrative [...] Maryellen Rivera DPM documented in this encounter [facility] 07-08-2024 History of Present illness Narrative [...] or Ibuprofen Will order CT scan at [facility] for left foot rule out Lisfranc injury [...] Gilmer Rivera DPM documented in this encounter [facility] 06-17-2024 Note General Surgery Offi ce/Clinic [...] capsule, 50 mcg= (more content not included)... [facility] Comment on above: Result Comment: [...] Type A tympanogram documented in this encounter [facility] 02-12-2024 History of Present illness [...] Date Noted Bipolar 1 disorder, depressed, mild ([facility]) 04/06/2020 VICKIE (generalized anxiety disorder) ([facility]) 04/06/2020 Insomnia due to mental disorder 04/06/2020 MDD (major depressive disorder) ([facility]) 01/18/2016 Severe episode of recurrent major depressive disorder, without psychotic features ([facility]) ([facility]) 01/18/2016 Resolved Ambulatory Problems Diagnosis [...] Recommend annual audio documented in this encounter [facility] 02-05-2024 History of Present illness [...] mild (CMS/HCC) 04/06/2020 VICKIE (generalized anxiety disorder) ([facility]) 04/06/2020 Insomnia due to mental disorder 04/06/2020 MDD (major depressive disorder) ([facility]) 01/18/2016 Severe episode of recurrent major depressive disorder, without psychotic features ([facility]) ([facility]) 01/18/2016 Resolved Ambulatory Problems Diagnosis Date Noted [...] week to remove documented in this encounter [facility] 11-27-2023 Hospital Discharge instructions Patient [...] nerve stimulation). ?For women, using a medical transcriptionist to prevent urine leaks. This is a [...] right after experiencing incontinence. General instructions Take favf-fne-oxdayqo and prescription medicines only as told by [...] important. Where to find more information National [place] of Diabetes and Digestive and Kidney Diseases: www.niddk.nih.gov [place] [employer]: www.urologyhealth.org Contact a health care [...] provider. Document Revised: 10/22/2020 Document Reviewed: 10/22/2020 [employer] Patient Education 2022 Scour Prevention. 11/27/2023 15:20:11 Overactive Bladder, Adult Overactive Bladder, [...] your health care provider. General instructions Take mgoq-foi-jynciap and prescription medicines only as told by [...] provider. Document Revised: 12/06/2020 Document Reviewed: 12/06/2020 [employer] Patient Education 2022 Scour Prevention. Follow Up Care 08/21/2023 10:37:58 With:PRANAV CARVALHO PA-C, URL Address: [address] [place] [address] [place] [address] When: Unknown Comments:1 year f/up [facility] 08-21-2023 Hospital Discharge instructions Patient Education [...] nerve stimulation). ?For women, using a medical transcriptionist to prevent urine leaks. This is a [...] right after experiencing incontinence. General instructions Take moyo-jlq-fnxrgao and prescription medicines only as told by [...] important. Where to find more information National [place] of Diabetes and Digestive and Kidney Diseases: www.niddk.nih.gov [place] [employer]: www.urologyhealth.org Contact a health care [...] provider. Document Revised: 10/22/2020 Document Reviewed: 10/22/2020 [employer] Patient Education 2022 Scour Prevention. Follow Up Care 05/07/2023 11:41:01 With:DEVEN GUTIERREZ, PRANAV Schwartz, URL Address: [address] [place] [address] [phone] When: Unknown Comments:3 mos (new med) [facility] 05-30-2022 History of Present illness Narrative [...] Continue with same provider ( Rocky @ [facility] in [place]) Follow up as scheduled or return early if needed. School or community referral: None Treatment Goals and Objectives discussed. Other Referrals/Consults/Psychological Testing: None Eliana Bonds documented in this encounter [facility] 03-13-2022 History of Present illness Narrative [...] Continue with same provider ( Rocky @ [facility] in [place]) Follow up as scheduled or return early if needed. School or community referral: None Treatment Goals and Objectives discussed. Other Referrals/Consults/Psychological Testing: None Eliana Bonds documented in this encounter [facility] 01-05-2022 Discharge summary Note Date/Time January 05, 2022 12:08pm [facility] [address] [place] [address] Discharge Summary Signed Patient: Kyleigh Adame MR#: [id number] : 1960 Acct:[id number] Age/Sex: 61 / F Adm Date: 2 Loc: Room: [address] [place] [address]: Henry Burnett MD Copies to: [...] % (Auto) 50.3, Lymph % (Auto) 33.1, Montague % (Auto) 12.5, Eos % (Auto) 3.5, Baso % (Auto) 0.6, Neut # (Auto) 2.6, Lymph # (Auto) 1.7, Montague # (Auto) 0.7, Eos # (Auto) 0.2, [...] <Electronically signed by Henry Burnett MD> 01/05/22 1209 [facility] Work Phone: 1(951) 900-154610-05-2022 Progress note Author Henry Burnett [facility] January 04, 2022 4:20pm Note Date/Time January 04, 2022 4: 20pm [facility] [address] [place] [address] Hospitalist Progress Note Signed Patient: Kyleigh Adame MR#: [id number] : 1960 Acct:[id number] Age/Sex: 61 / F Adm Date: 2 Loc: Room: [address] [place] [address] Type: ADM INOo Attending Dr: Henry Burnett [...] <Electronically signed by Henry Burnett MD> 01/04/22 9526 [facility] Work Phone: 1(820) 761-482610-05-2022 Consult note Author Graham Helm [facility] January 04, 2022 2:08pm Note Date/Time January 04, 2022 2: 04pm [facility] [address] [place] [address] Psychiatry Consult Note Signed Patient: Kyleigh Adame MR#: [id number] : 1960 Acct:[id number] Age/Sex: 61 / F Adm Date: 2 Loc: Room: [address] [place] [address] Type : ADM INOo Attending Dr: Henry [...] stated that she sees a psychiatrist in [place]. She reported that he is helping [...] Appearance Clear Urine pH 5.5 Ur Specific Moline 1.012 Urine Protein Negative Urine Glucose (UA) [...] Color Urine Appearance Urine pH Ur Specific Moline Urine Protein Urine Glucose (UA) Urine Ketones Urine Occult Blood Urine Nitrite Ur Leukocyte Esterase Urine RBC Urine WBC Valproic Acid 59.0 01/04/22 10:13 RBC Hgb Hct MCV MCH MCHC RDW Plt Count MPV Sodium Potassium Chloride Carbon Dioxide Anion Gap BUN Creatinine Calcium Total Bilirubin AST ALT Alkaline Phosphatase Total Protein Albumin Urine Color Urine Appearance Urine pH Ur Specific Moline Urine Protein Urine Glucose (UA) Urine Ketones [...] <Electronically signed by Graham Helm MD> 01/04/221407 [facility] Work Phone: 1(871) 162-890510-04-2022 History and physical note Author Henry Burnett [facility] January 03, 2022 6:58pm Note Date/Time January 03, 2022 4: 55pm [facility] [address] [place] [address] Hospitalist H&P Signed Patient: Kyleigh Adame MR#: [id number] : 1960 Acct:[id number] Age/Sex: 61 / F Adm Date: 2 Loc: Room: [address] [place] [address] Type: ADM INOo Attending Dr: Henry Burnett [...] 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 Decision was to admit the patient for [...] % (Auto) 22.3 % (.) 01/03/22 14:35 Montague % (Auto) 8.9 % (.) 01/03/22 14:35 Eos % (Auto) 1.4 % (.) 01/03/22 14:35 Baso % (Auto) 0.6 % (.) 01/03/22 14:35 Neut # (Auto) 4.3 x10E3/uL (1.8-7.7) 01/03/22 14:35 Lymph # (Auto) 1.4 x10E3/uL (1.00-4.8) 01/03/22 14:35 Montague # (Auto) 0.6 x10E3/uL (0.0-0.8) 01/03/22 14:35 [...] pH 5.5 (5.0-9.0) 01/03/22 14:20 Ur Specific Moline 1.012 (1.001-1.030) 01/03/22 14:20 Urine Protein Negative [...] signed by Henry Burnett MD> 01/03/22 1858 [facility] Work Phone: 1(965) 348-497707-15-2022 History of Present illness Narrative* Eliana Bonds [...] Continue with same provider ( Rocky @ [facility] in [place]) Follow up as scheduled or return early if needed. School or community referral: None Treatment Goals and Objectives discussed. Other Referrals/Consults/Psychological Testing: None Eliana Bonds documented in this [id number] History of Present illness Narrative* Eliana Bonds [...] Continue with same provider ( Rocky @ [facility] in [place]) Follow up as scheduled or return early if needed. School or community referral: None Treatment Goals and Objectives discussed. Other Referrals/Consults/Psychological Testing: None Eliana Bonds documented in this [id number] Miscellaneous Notes* Telephone Encounter - Sarah Leigh MA - 05/16/2021 11:04 AM EST Pt is completely out and wants a 30 day supply sent to the local pharmacy. Another refill encounterto follow with a 90 day supply to go to [facility]. 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 We elected toproceed with the telephone [...] and Plan of Care. [facility] Future Appointments Appointment Date:11/27/2023 03:00:00 PM Scheduled Provider:PRANAV CARVALHO PA-C Location:[facility] Appointment Type:URO Office Visit [facility] evaluation note* Diagnosis Bipolar 1 disorder, [...] Altered mental status acute Coarse tremors acute [facility] Work Phone: Evaluation note* Diagnosis Onset Date Resolution Status Acute encephalopathy acute NAEEM (acute kidney injury) ac jessica Altered mental status acute Coarse tremors acute Hypertensive urgency acute UTI (urinary tract infection) acute [facility] Work Phone: Evaluation note* Diagnosis Bipolar [...] ear, initial encounter documented in this encounter [facility] HealthcareEvaluation note* Diagnosis Sensorineural hearing loss (SNHL) of both ears- Primary Ear pressure, right documented in this encounter [facility] HealthcareEvaluation note* Diagnosis Lisfranc dislocation, left, initial encounter- Primary Plantar fasciitis Plantar fascial fibromatosis Contusion of left foot, initial encounter documented in this encounter [facility] HealthcareEvaluation note* Diagnosis DJD (degenerative joint disease), ankle and foot, left- Primary Lisfranc dislocation, left, initial encounter documented in this encounter [facility] HealthcareEvaluation note* Diagnosis DJD (degenerative joint disease), ankle and foot, left- Primary Lisfranc dislocation, left, initial encounter Other physeal fracture of left metatarsal, initial encounter for closed fracture Capsulitis of metatarsophalangeal (MTP) joint of left foot documented in this encounter [facility] HealthcareEvaluation note* Diagnosis Other physeal fracture of left metatarsal, initial encounter for closed fracture- Primary DJD (degenerative joint disease), ankle and foot, left Lisfranc dislocation, left, initial encounter Capsulitis of metatarsophalangeal (MTP) joint of left foot documented in this encounter [facility]Evaluation noteNo assessment information [facility] Work Phone: Evaluation note* Diagnosis DJD (degenerative joint disease), ankle and foot, left- Primary Contracture of right ankle documented in this encounter [facility] note* Diagnosis DJD (degenerative joint disease), ankle and foot, left- Primary Lisfranc dislocation, left, initial encounter Capsulitis of metatarsophalangeal (MTP) joint of left foot Contracture of right ankle documented in this encounter [facility] HealthcareHospital course Narrative No data available for this section [facility] Hospital Discharge instructions Additional Instructions -Take Ceftin antibiotics treatment for UTI for 5 more days -Take new blood pressure medicine Hydralazine 25 mg three times a day. Hold if your BP <100/60 -Follow up with your primary doctor for blood pressure control and adjustment in medications if needed -[facility] Work Phone: Progress note No data available for this section [facility] reason for referral (narrative)No reason for referral information availableSelect [facility] Work Phone: History of Present Illness * Eliana Bonds MD - 04/09/2020 2:42 PM EST Telephone Visit Via Phone Call [facility] [address] [facility] [phone] Telephone Visit [facility] 04/06/2020 Eliana Bonds MD Provider Location: [place] Patient Location Staple Processing Machine Operator: None Patient Location: Patient's Home Patient: Kyleigh [...] there are inherent diagnostic limitations compared to hsdn-rp-ykhh evaluations. 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 Care Teams (unrecognized sec tion and content) Beam Dyer Recessed Vat Relationship Specialty Start Date End Date Vicky Arnett MD [address] [place] [address] PCP - General Family Medicine 04/05/20 Beam Dyer Recessed Vat Relationship Specialty Start Date End Date Vicky Arnett MD [address] [place] [address] PCP - General Family Medicine 04/05/20 Beam Dyer Recessed Vat Relationship Specialty Start Date End Date Vicky Arnett MD [address] [place] [address] PCP - General Family Medicine 04/05/20 Beam Dyer Recessed Vat Relationship Specialty Start Date End Date Vicky Arnett MD [address] [place] [address] PCP - General Family Medicine 04/05/20 Beam Dyer Recessed Vat Relationship Specialty Start Date End Date Vicky Arnett MD [address] [place] [address] PCP - General Family Medicine 04/05/20 Team Status: Active Member Role Status Dates Justin Francisco DO Emergency Provider Active Vicky Arnett MD Primary Care Provider Active Henry Burnett MD Admit Provider, Attending Provi nimisha Active Team Status: Active Member Role Status Dates Vicky rAnett MD Primary Care Provider Active Team Status: Inactive Member Role Status Dates Justin Francisco DO Emergency Provider Active Vicky Arnett MD Primary Care Provider Active Henry Burnett MD Admit Provider, Attending Provi nimisha Active Graham Helm MD Other Provider Active Beam Dyer Recessed Vat Relationship Specialty Start Date End Date Vicky Arnett MD [address] [place] [address] PCP - General Family Medicine 04/05/20 Beam Dyer Recessed Vat Relationship Specialty Start Date End Date Vicky Arnett MD [address] [place] [address] PCP - General Family Medicine 04/05/20 Beam Dyer Recessed Vat Relationship Specialty Start Date End Date Vicky Arnett MD [address] [place] [address] PCP - General Family Medicine 04/05/20 Beam Dyer Recessed Vat Relationship Specialty Start Date End Date Vicky Arnett MD [address] [place] [address] PCP - General Family Medicine 04/05/20 Beam Dyer Recessed Vat Relationship Specialty Start Date End Date Vicky Arnett MD [address] [place] [address] PCP - General Family Medicine 04/05/20 Beam Dyer Recessed Vat Relationship Specialty Start Date End Date Vicky Arnett MD [address] [place] [address] PCP - General Family Medicine 02/05/24 Valerie Moss MD [address] [place] [address] Referring Physician Family Medicine 01/29/24 Beam Dyer Recessed Vat Relationship Specialty Start Date End Date Vicky Arnett MD [address] [place] [address] PCP - General Family Medicine 02/05/24 Valerie Moss MD [address] [place] [address] Referring Physician Family Medicine 01/29/24 Beam Dyer Recessed Vat Relationship Specialty Start Date End Date Vicky Arnett MD [address] [place] [address] PCP - General Family Medicine 02/05/24 Valerie Moss MD [address] [place] [address] Referring Physician Family Medicine 01/29/24 Beam Dyer Recessed Vat Relationship Specialty Start Date End Date Vicky Arnett MD [address] [place] [address] PCP - General Family Medicine 02/05/24 Valerie Moss MD [address] [place] [address] Referring Physician Family Medicine 01/29/24 Beam Dyer Recessed Vat Relationship Specialty Start Date End Date Vicky Arnett MD [address] [place] [address] PCP - General Family Medicine 09/26/23 Beam Dyer Recessed Vat Relationship Specialty Start Date End Date Vicky Arnett MD [address] [place] [address] PCP - General Family Medicine 02/05/24 Valerie Moss MD [address] [place] [address] Referring Physician Family Medicine 01/29/24 Beam Dyer Recessed Vat Relationship Specialty Start Date End Date Vicky Arnett MD [address] [place] [address] PCP - General Family Medicine 02/05/24 Valerie Moss MD [address] [place] [address] Referring Physician Family Medicine 01/29/24 Beam Dyer Recessed Vat Relationship Specialty Start Date End Date Vicky Arnett MD [address] [place] [address], [place] [address] PCP - General Family Medicine 02/05/24 Valerie Moss MD [address] [place] [address] Referring Physician Family Medicine 01/29/24 Beam Dyer Recessed Vat Relationship Specialty Start Date End Date Vicky Arnett MD [address] [place] [address] PCP - General Family Medicine 02/05/24 Valerie Moss MD [address] [place] [address] Referring Physician Family Medicine 01/29/24 Beam Dyer Recessed Vat Relationship Specialty Start Date End Date Vicyk Arnett MD [address] [place] [address] PCP - General Family Medicine 02/05/24 Valerie Moss MD [address] [place] [address] Referring Physician Family Medicine 01/29/24 Beam Dyer Recessed Vat Relationship Specialty Start Date End Date Vicky Arnett MD [address] [place], [place] [address] PCP - General Family Medicine 02/05/24 Valerie Moss MD [address] [place] [address] Referring Physician Family Medicine 01/29/24 Beam Dyer Recessed Vat Relationship Specialty Start Date End Date Vicky Arnett MD [address] [place] [address] PCP - General Family Medicine 02/05/24 Valerie Moss MD [facility] [place] [address] Referring Physician Family Medicine 01/29/24 Team Status: Inactive Member Role Status Dates Vicky Arnett MD Primary Care Provider Active Start: September 29, 2024 End: September 29, 2024 Gilmer Rivera DPM Attending Provider Active Start: September 29, 2024 End: September 29, 2024 Beam Dyer Recessed Vat Relationship Specialty Start Date End Date Vicky Arnett MD [facility] [place] [address] PCP - General Family Medicine 02/05/24 Valerie Moss MD [address] [place] [address] Referring Physician Family Medicine 01/29/24 Beam Dyer Recessed Vat Relationship Specialty Start Date End Date Vicky Arnett MD [facility] [place] [address] PCP - General Family Medicine 02/05/24 Valerie Moss MD [facility] [place] [address] Referring Physician Family Medicine 01/29/24 Beam Dyer Recessed Vat Relationship Specialty Start Date End Date Vicky Arnett MD [address] [place] [address] PCP - General Family Medicine 02/05/24 Valerie Moss MD [address] [place] [address] Referring Physician Family Medicine 01/29/24 Goals (unrecognized [...] AUTHOR AUTHOR'S ORGANIZ ATION 06/01/2022 [facility] DATE CREATED AUTHOR AUTHOR'S ORGANIZ ATION 11/06/2023 Emma Macedo spideanna DATE CREATED AUTHOR AUTHOR'S ORGANIZ ATION 10/10/2024 [facility] DATE CREATED AUTHOR AUTHOR'S ORGANIZ ATION 12/06/2024 [facility] DATE CREATED AUTHOR AUTHOR'S ORGANIZ ATION 12/14/2024 [facility] DATE CREATED AUTHOR AUTHOR'S ORGANIZ ATION 12/16/2024 [facility] Special[facility] FOR RECORDS PERTAINING TO PATIENTS WHO [...] BE BASED ON THE PRIMARY CLINICAL RECORDS. [facility] [employer] [facility]. provides no warranty or guarantee of the accuracy or completeness of information in this document.
[2025-01-05] MEDS: FUROSEMIDE 40 MG/4 ML VIAL IV (11:40)
== END 2025-01-05 10:55 | disposition home or self-care (01) ==
LOC: NM 10:54
PROVIDERS: PCP Family Medicine; Visit Provider Student in an Organized Health Care Education/Training Program
DX: N20.0 Calculus of kidney (principal)
CPT/HCPCS: 78709; A9562; J1938